=== PATIENT | male | born 1960 | race Caucasian/White ===

== ENCOUNTER 2020-07-29 09:40 | Inpatient (IN) ==
--- NOTE | 2020-07-29 10:04 | Emergency Department Note ---
Impression & Plan Acute respiratory failure with hypoxemia, COVID-19, KRISSY (acute kidney injury), Acute dehydration, Hx of kidney transplant ED Provider Note NAME: ANGELES MONTAÑO AGE: 59 SEX: M : 1960 ARRIVES VIA: Walk-In INFORMANT: Patient, ED PROVIDER(S): Louie Weeks MD Chief Complaint: Shortness of breath HPI: Patient does present with worsening shortness of breath for the last 3 days. The patient states he has exertional dyspnea. This is gotten progressively worse and is worse with exertion. The patient denies any lower extremity swelling. The patient does admit that he is been having some associated fever decreased p.o. intake and diarrheal symptoms. The patient does have a history of renal transplant and does take tacrolimus chronic steroids and mycophenolate. Patient states he has been compliant with his medications. Patient denies any cough or chest pains. The patient denies any Covid contacts or loss of taste or smell. ROS: See HPI for pertinent positives and negatives. A total of 10 systems were reviewed and otherwise negative. Past medical history: See below Surgical history: See below Social history: See below Physical Exam: GENERAL: Ill in appearance, wearing a mask, moderate distress, tachypneic. EYE EXAM: Normal conjunctiva. PERRL, no anisocoria and EOM's grossly intact w/o pain. NECK: Supple, no nuchal rigidity, no adenopathy, non-tender. No signs of meningismus. LUNGS: Clear throughout to auscultation, tachypnea noted. HEART: Tachycardic and regular, no MRG. ABDOMEN: Abdomen soft, non-tender, normo-active bowel sounds, no masses, no rebound or guarding. BACK: No CVA TTP. SKIN: No rashes and no bruising. UPPER EXTREMITIES: Upper extremities are grossly normal. LOWER EXTREMITIES: Grossly normal, no edema. No calf pain, negative Homans' sign. NEURO EXAM: A&O x3, cranial nerves II-XII grossly intact, normal speech, moves all 4 extremities on command w/o issue. Differential diagnoses: Reactive airway disease, pneumonia, pneumothorax, COPD, CHF, infections, cardiac ischemia, pulmonary embolism, musculoskeletal, gastrointestinal, as well as other pathologies. Course: Patient was seen and evaluated the bedside. Full history physical exam was performed. EKG: Indication: Shortness of breath Sinus tachycardia, rate 117, normal intervals, left axis deviation, no prior EKGs for comparison. Imaging Studies: Radiology results as stated below per my review in the radiologist's interpretation: XR chest 1V portable HISTORY: 59 years-old Male SEPSIS acute sepsis COMPARISON: None TECHNIQUE: Portable AP view of the chest FINDINGS: Cardiac silhouette is upper limits of normal in size. There are patchy predominantly interstitial opacities noted within the bilateral lungs in a mid and lower lung zone predominant distribution. No pneumothorax, large pleural effusion or overt pulmonary edema. Degenerative changes of the shoulders and spine. IMPRESSION: Patchy mid and lower lung zone prominent opacities are suspicious for a nonspecific multifocal pneumonia. Follow-up recommended. ACT 112: Negative or not required by law. The above report was generated using voice recognition software. It may contain grammatical, syntax or spelling errors. Electronically signed by: Christiano Garcia M.D. 07/29/2020 11:47 AM Dictated: 07/29/20 1143 Transcribed: 07/29/20 1143 Cardiac monitoring: An order was placed for continuous cardiac monitoring. The monitor shows a rate of 114 with sinus tachycardia rhythm. MDM: Patient did present with concern for shortness of breath. The patient was hypoxic in the 70s on room air. The patient was adjusted to nasal cannula and subsequently to nonrebreather. I did speak with the respiratory therapist to come to did place patient on BiPAP. The patient did seem to have significant improvement in his symptoms. The patient was ordered IV fluids given his decreased p.o. intake. Patient was ordered blood work imaging empiric antibiotics with Zosyn. No prior urine or blood culture sensitivities per my review. Patient does have prior history of BK virus this is also ordered as a send out in addition to tacrolimus level. Patient has a normal white count H&H and platelet count. Patient's VBG shows a pH of 7.2 with a normal PCO2. Patient does have mild lactate of 2.2 with some mild KRISSY. The patient has had decreased p.o. intake and associated diarrheal symptoms. Patient did receive IV fluids. Patient was Covid positive. The patient was ordered dexamethasone. Flu negative. MRSA swab also negative. I did inform the patient of the findings. Patient does feel improved. I did spe ak the on-call hospitalist Dr. Brianna MD. Patient was admitted to the medicine service. Patient was eventually transitioned to an oxygen mask from the BiPAP. Patient's breathing was greatly improved after treatment. Critical Care: I have personally spent 120 minutes of critical care time in direct management of this patient. This includes bedside care, interpretation of diagnostic studies, and testing, discussion with consultants, patient, and family members, and other require inpatient management activities. This 120 minutes is in excess of all separately billable procedures. Past Med/Surg History Medical History Abdominal aortic aneurysm Anemia Benign essential hypertension CVA (cerebral vascular accident) FSGS (focal segmental glomerulosclerosis) History of esophageal reflux Hyperlipidemia Hypothyroidism Obesity Osteoporosis Proteinuria Surgical History Renal transplant, status post Social History Smoking Status: Never smoker 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: Swedish Feels Safe at Home: Yes Allergies Allergies Allergy/AdvReac Type Severity Reaction Status Date / Time clopidogrel [From Plavix] Allergy Verified 07/29/20 11:33 Hgwivta-Olp-Oun Reductase AdvReac Intermediate myalgias Verified 07/29/20 11:33 Inhibitor Home Meds Home Medications Medication Instructions Recorded Confirmed calcium carbonate 500 mg calcium 500 mg PO DAILY 09/05/19 07/29/20 (1,250 mg) chewable tablet amoxicillin 2,000 mg PO ONCE 07/29/20 07/29/20 ibandronate 150 mg PO MONTHLY 07/29/20 07/29/20 levothyroxine 125 mcg PO DAILY 07/29/20 07/29/20 Previous Rx's Medication Instructions Recorded aspirin 81 mg chewable tablet 81 mg PO DAILY #90 tab 06/06/19 magnesium oxide 500 mg tablet 500 mg PO DAILY #90 tab 06/06/19 multivitamin,cd-[id number] 1 tab PO DAILY #90 tab 06/06/19 prednisone 5 mg tablet 5 mg PO DAILY #90 tab 07/23/19 pantoprazole 40 mg tablet,delayed 40 mg PO DAILY #90 tab 09/05/19 release tacrolimus 1 mg capsule 1 mg PO Q12H #180 cap 02/26/20 lisinopril 20 mg tablet 20 mg PO DAILY #90 tab 04/09/20 mycophenolate mofetil 250 mg 500 mg PO BID #360 cap 05/29/20 capsule Results & Data (ED) Vital Signs Vital Signs - 24 hr 07/29/20 09:55 07/29/20 10:35 07/29/20 11:10 Temperature 37.5 C Temperature Source Oral Pulse Rate 121 H 114 H 115 H Pulse Rate from SpO2 Sensor 115 H Respiratory Rate 24 20 21 Respiratory Effort / Characteristics Short of Breath Non-Labored Spontaneous Respiratory Depth Normal Respiratory Pattern Blood Pressure 116/84 Blood Pressure Mean 94 Blood Pressure Position Sitting Pulse Oximetry 87 L 99 100 Oxygen Delivery Method Room Air Oxygen Flow Rate Fraction of Inspired Oxygen 70 Sepsis Recent Fever Within 48 Hours No Sepsis New/Unexplained Change in Mental Status N/A Sepsis Action Taken by Nursing No Action Required Pulse Oximetry Post Tiitration 07/29/20 11:24 07/29/20 11:30 07/29/20 11:32 Temperature Temperature Source Pulse Rate Pulse Rate from SpO2 Sensor 122 H Respiratory Rate 28 H Respiratory Effort / Characteristics Spontaneous Labored Respiratory Depth Retractive Respiratory Pattern Grunting Rapid/Shallow Tachypnea Blood Pressure Blood Pressure Mean Blood Pressure Position Pulse Oximetry 100 95 Oxygen Delivery Method BiPAP Oxygen Flow Rate Fraction of Inspired Oxygen Sepsis Recent Fever Within 48 Hours Sepsis New/Unexplained Change in Mental Status Sepsis Action Taken by Nursing Pulse Oximetry Post Tiitration 07/29/20 11:47 07/29/20 12:00 07/29/20 12:30 Temperature Temperature Source Pulse Rate 112 H 103 H 98 H Pulse Rate from SpO2 Sensor 113 H 103 H 99 H Respiratory Rate 20 25 H 49 H Respiratory Effort / Characteristics Respiratory Depth Respiratory Pattern Blood Pressure 125/83 144/89 H 140/71 Blood Pressure Mean 95 98 107 Blood Pressure Position Pulse Oximetry 99 100 100 Oxygen Delivery Method Oxygen Flow Rate Fraction of Inspired Oxygen Sepsis Recent Fever Within 48 Hours Sepsis New/Unexplained Change in Mental Status Sepsis Action Taken by Nursing Pulse Oximetry Post Tiitration 07/29/20 12:46 07/29/20 13:00 07/29/20 13:10 Temperature Temperature Source Pulse Rate 97 H 96 H Pulse Rate from SpO2 Sensor 97 H 93 H Respiratory Rate 31 H 25 H Respiratory Effort / Characteristics Respiratory Depth Respiratory Pattern Blood Pressure 141/93 H Blood Pressure Mean 103 Blood Pressure Position Pulse Oximetry 96 95 Oxygen Delivery Method Oxymask Oxygen Flow Rate 6 Fraction of Inspired Oxygen Sepsis Recent Fever Within 48 Hours Sepsis New/Unexplained Change in Mental Status Sepsis Action Taken by Nursing Pulse Oximetry Post Tiitration 93 07/29/20 13:20 07/29/20 13:30 07/29/20 13:40 Temperature Temperature Source Pulse Rate 94 H 94 H 91 H Pulse Rate from SpO2 Sensor 93 H 93 H 91 H Respiratory Rate 31 H 21 20 Respiratory Effort / Characteristics Respiratory Depth Respiratory Pattern Blood Pressure 115/85 Blood Pressure Mean 92 Blood Pressure Position Pulse Oximetry 96 95 93 Oxygen Delivery Method Oxygen Flow Rate Fraction of Inspired Oxygen Sepsis Recent Fever Within 48 Hours Sepsis New/Unexplained Change in Mental Status Sepsis Action Taken by Nursing Pulse Oximetry Post Tiitration 07/29/20 13:50 07/29/20 14:00 07/29/20 14:10 Temperature Temperature Source Pulse Rate 93 H 92 H 90 Pulse Rate from SpO2 Sensor 93 H 91 H 92 H Respiratory Rate 17 20 29 H Respiratory Effort / Characteristics Respiratory Depth Respiratory Pattern Blood Pressure 145/96 H Blood Pressure Mean 109 Blood Pressure Position Pulse Oximetry 95 93 93 Oxygen Delivery Method Oxygen Flow Rate Fraction of Inspired Oxygen Sepsis Recent Fever Within 48 Hours Sepsis New/Unexplained Change in Mental Status Sepsis Action Taken by Nursing Pulse Oximetry Post Tiitration 07/29/20 14:45 07/29/20 15:00 07/29/20 15:18 Temperature Temperature Source Pulse Rate 94 H 108 H Pulse Rate from SpO2 Sensor 104 H Respiratory Rate 17 22 Respiratory Effort / Characteristics SOB on Exertion Respiratory Depth Respiratory Pattern Blood Pressure 147/101 H Blood Pressure Mean 124 Blood Pressure Position Pulse Oximetry 92 Oxygen Delivery Method Oxygen Flow Rate Fraction of Inspired Oxygen Sepsis Recent Fever Within 48 Hours Sepsis New/Unexplained Change in Mental Status Sepsis Action Taken by Nursing Pulse Oximetry Post Tiitration Home Medications Current Medication List: was personally reviewed by me Laboratory Data Attestation: I reviewed the patient's lab results. Result diagrams: 07/29/20 11:05 07/29/20 11:05 Lab Results 07/29/20 07/29/20 07/29/20 Range/Units 10:55 11:05 11:05 WBC 9.51 (4.8-10.8) K/uL RBC 4.51 L (4.7-6.1) M/uL Hgb 14.0 (14.0-18.0) g/dL Hct 42.1 (42-52) % MCV 93.3 (80-100) fL MCH 31.0 (25-34) pg MCHC 33.3 (32-36) g/dL RDW Std Deviation 46.1 (36.4-46.3) fL RDW Coeff of Jaye 13.5 (11.5-14.5) % Plt Count 216 (130-400) K/uL MPV 11.0 H (7.4-10.4) fL Immature Gran % (Auto) 0.4 % Neut % (Auto) 80.2 % Lymph % (Auto) 4.6 % [place] % (Auto) 14.5 % Eos % (Auto) 0.2 % Baso % (Auto) 0.1 % Neut # (Auto) 7.62 H (1.4-6.5) K/uL Lymph # (Auto) 0.44 L (1.2-3.4) K/uL [place] # (Auto) 1.38 H (0.11-0.59) K/uL Eos # (Auto) 0.02 (0-0.5) K/uL Baso # (Auto) 0.01 (0-0.2) K/uL Immature Gran # (Auto) 0.04 H (0.00-0.02) K/uL Absolute Nucleated RBC 0.07 H (0-0) K/uL Nucleated RBC % (auto) 0.7 % PT 11.4 (9.0-12.0) Seconds INR 1.1 (0.9-1.1) APTT 25.6 (21.0-31.0) Seconds PTT Ratio 0.9 VBG pH 7.28 L (7.36-7.41) VBG pCO2 42 (38-50) mmHg VBG pO2 34 mmHg VBG HCO3 19 mmol/L VBG O2 Saturation < 60.0 % VBG Base Excess -7.3 mEq/L Barometric Pressure 730.4 mm/Hg Sodium (136-145) mmol/L Potassium (3.5-5.1) mmol/L Chloride (98-107) mmol/L Carbon Dioxide (21-32) mmol/L Anion Gap (3-11) BUN (7-18) mg/dl Creatinine (0.6-1.4) mg/dl Est Cr Clr Drug Dosing ml/min Est GFR ( Amer) Est GFR (Non-Af Amer) BUN/Creatinine Ratio (10-20) Glucose (70-99) mg/dl Lactate (0.4-2.0) mmol/L Calcium (8.5-10.1) mg/dl Magnesium (1.8-2.4) mg/dl Total Bilirubin (0.2-1) mg/dl AST (15-37) U/L ALT (12-78) U/L Alkaline Phosphatase (45-117) U/L Troponin I (0-0.045) ng/ml Total Protein (6.4-8.2) gm/dl Albumin (3.4-5.0) gm/dl Globulin (2.5-4.0) gm/dl Albumin/Globulin Ratio (0.9-2) Procalcitonin (0-0.5) ng/ml Nasal Screen MRSA (PCR) (Negative) COVID-19 Eval Order COVID-19 PCR (Negative) Influ A Molecular Assay (Negative) Influ B Molecular Assay (Negative) 07/29/20 07/29/20 07/29/20 Range/Units 11:05 11:05 11:05 WBC (4.8-10.8) K/uL RBC (4.7-6.1) M/uL Hgb (14.0-18.0) g/dL Hct (42-52) % MCV (80-100) fL MCH (25-34) pg MCHC (32-36) g/dL RDW Std Deviation (36.4-46.3) fL RDW Coeff of Jaye (11.5-14.5) % Plt Count (130-400) K/uL MPV (7.4-10.4) fL Immature Gran % (Auto) % Neut % (Auto) % Lymph % (Auto) % [place] % (Auto) % Eos % (Auto) % Baso % (Auto) % Neut # (Auto) (1.4-6.5) K/uL Lymph # (Auto) (1.2-3.4) K/uL [place] # (Auto) (0.11-0.59) K/uL Eos # (Auto) (0-0.5) K/uL Baso # (Auto) (0-0.2) K/uL Immature Gran # (Auto) (0.00-0.02) K/uL Absolute Nucleated RBC (0-0) K/uL Nucleated RBC % (auto) % PT (9.0-12.0) Seconds INR (0.9-1.1) APTT (21.0-31.0) Seconds PTT Ratio VBG pH (7.36-7.41) VBG pCO2 (38-50) mmHg VBG pO2 mmHg VBG HCO3 mmol/L VBG O2 Saturation % VBG Base Excess mEq/L Barometric Pressure mm/Hg Sodium 136 (136-145) mmol/L Potassium 4.3 (3.5-5.1) mmol/L Chloride 108 H (98-107) mmol/L Carbon Dioxide 19 L (21-32) mmol/L Anion Gap 9.0 (3-11) BUN 31 H (7-18) mg/dl Creatinine 1.88 H (0.6-1.4) mg/dl Est Cr Clr Drug Dosing 49.4 ml/min Est GFR ( Amer) 44.3 Est GFR (Non-Af Amer) 38.2 BUN/Creatinine Ratio 16.7 (10-20) Glucose 103 H (70-99) mg/dl Lactate 2.2 H* (0.4-2.0) mmol/L Calcium 9.6 (8.5-10.1) mg/dl Magnesium 1.8 (1.8-2.4) mg/dl Total Bilirubin 0.7 (0.2-1) mg/dl AST 82 H (15-37) U/L ALT 57 (12-78) U/L Alkaline Phosphatase 134 H (45-117) U/L Troponin I 0.026 (0-0.045) ng/ml Total Protein 8.4 H (6.4-8.2) gm/dl Albumin 3.2 L (3.4-5.0) gm/dl Globulin 5.2 H (2.5-4.0) gm/dl Albumin/Globulin Ratio 0.6 L (0.9-2) Procalcitonin 0.21 (0-0.5) ng/ml Nasal Screen MRSA (PCR) (Negative) COVID-19 Eval Order COVID-19 PCR (Negative) Influ A Molecular Assay (Negative) Influ B Molecular Assay (Negative) 07/29/20 07/29/20 07/29/20 Range/Units 11:13 11:13 11:13 WBC (4.8-10.8) K/uL RBC (4.7-6.1) M/uL Hgb (14.0-18.0) g/dL Hct (42-52) % MCV (80-100) fL MCH (25-34) pg MCHC (32-36) g/dL RDW Std Deviation (36.4-46.3) fL RDW Coeff of Jaye (11.5-14.5) % Plt Count (130-400) K/uL MPV (7.4-10.4) fL Immature Gran % (Auto) % Neut % (Auto) % Lymph % (Auto) % [place] % (Auto) % Eos % (Auto) % Baso % (Auto) % Neut # (Auto) (1.4-6.5) K/uL Lymph # (Auto) (1.2-3.4) K/uL [place] # (Auto) (0.11-0.59) K/uL Eos # (Auto) (0-0.5) K/uL Baso # (Auto) (0-0.2) K/uL Immature Gran # (Auto) (0.00-0.02) K/uL Absolute Nucleated RBC (0-0) K/uL Nucleated RBC % (auto) % PT (9.0-12.0) Seconds INR (0.9-1.1) APTT (21.0-31.0) Seconds PTT Ratio VBG pH (7.36-7.41) VBG pCO2 (38-50) mmHg VBG pO2 mmHg VBG HCO3 mmol/L VBG O2 Saturation % VBG Base Excess mEq/L Barometric Pressure mm/Hg Sodium (136-145) mmol/L Potassium (3.5-5.1) mmol/L Chloride (98-107) mmol/L Carbon Dioxide (21-32) mmol/L Anion Gap (3-11) BUN (7-18) mg/dl Creatinine (0.6-1.4) mg/dl Est Cr Clr Drug Dosing ml/min Est GFR ( Amer) Est GFR (Non-Af Amer) BUN/Creatinine Ratio (10-20) Glucose (70-99) mg/dl Lactate (0.4-2.0) mmol/L Calcium (8.5-10.1) mg/dl Magnesium (1.8-2.4) mg/dl Total Bilirubin (0.2-1) mg/dl AST (15-37) U/L ALT (12-78) U/L Alkaline Phosphatase (45-117) U/L Troponin I (0-0.045) ng/ml Total Protein (6.4-8.2) gm/dl Albumin (3.4-5.0) gm/dl Globulin (2.5-4.0) gm/dl Albumin/Globulin Ratio (0.9-2) Procalcitonin (0-0.5) ng/ml Nasal Screen MRSA (PCR) Negative (Negative) COVID-19 Eval Order Covid19 Done at [facility] COVID-19 PCR POSITIVE A* (Negative) Influ A Molecular Assay (Negative) Influ B Molecular Assay (Negative) 07/29/20 Range/Units 11:21 WBC (4.8-10.8) K/uL RBC (4.7-6.1) M/uL Hgb (14.0-18.0) g/dL Hct (42-52) % MCV (80-100) fL MCH (25-34) pg MCHC (32-36) g/dL RDW Std Deviation (36.4-46.3) fL RDW Coeff of Jaye (11.5-14.5) % Plt Count (130-400) K/uL MPV (7.4-10.4) fL Immature Gran % (Auto) % Neut % (Auto) % Lymph % (Auto) % [place] % (Auto) % Eos % (Auto) % Baso % (Auto) % Neut # (Auto) (1.4-6.5) K/uL Lymph # (Auto) (1.2-3.4) K/uL [place] # (Auto) (0.11-0.59) K/uL Eos # (Auto) (0-0.5) K/uL Baso # (Auto) (0-0.2) K/uL Immature Gran # (Auto) (0.00-0.02) K/uL Absolute Nucleated RBC (0-0) K/uL Nucleated RBC % (auto) % PT (9.0-12.0) Seconds INR (0.9-1.1) APTT (21.0-31.0) Seconds PTT Ratio VBG pH (7.36-7.41) VBG pCO2 (38-50) mmHg VBG pO2 mmHg VBG HCO3 mmol/L VBG O2 Saturation % VBG Base Excess mEq/L Barometric Pressure mm/Hg Sodium (136-145) mmol/L Potassium (3.5-5.1) mmol/L Chloride (98-107) mmol/L Carbon Dioxide (21-32) mmol/L Anion Gap (3-11) BUN (7-18) mg/dl Creatinine (0.6-1.4) mg/dl Est Cr Clr Drug Dosing ml/min Est GFR ( Amer) Est GFR (Non-Af Amer) BUN/Creatinine Ratio (10-20) Glucose (70-99) mg/dl Lactate (0.4-2.0) mmol/L Calcium (8.5-10.1) mg/dl Magnesium (1.8-2.4) mg/dl Total Bilirubin (0.2-1) mg/dl AST (15-37) U/L ALT (12-78) U/L Alkaline Phosphatase (45-117) U/L Troponin I (0-0.045) ng/ml Total Protein (6.4-8.2) gm/dl Albumin (3.4-5.0) gm/dl Globulin (2.5-4.0) gm/dl Albumin/Globulin Ratio (0.9-2) Procalcitonin (0-0.5) ng/ml Nasal Screen MRSA (PCR) (Negative) COVID-19 Eval Order COVID-19 PCR (Negative) Influ A Molecular Assay Negative (Negative) Influ B Molecular Assay Negative (Negative) Administered Medications Discontinued Medications Dexamethasone (Dexamethasone Sod Inj 10 Mg/Ml Vial) 6 mg IV NOW ONE Stop: 07/29/20 12:28 Last Admin: 07/29/20 12:46 Dose: 6 mg Documented by: [id number] Sodium Chloride (Nss 1000ml) 1,000 mls @ 999 mls/hr IV .Q1H1M ESTEFANI Stop: 07/29/20 11:24 Last Infusion: 07/29/20 12:48 Dose: 0 mls/hr Documented by: [id number] Admin: 07/29/20 11:49 Dose: 999 mls/hr Documented by: [id number] Sodium Chloride (Nss 1000ml) 1,000 mls @ 999 mls/hr IV .Q1H1M ESTEFANI Stop: 07/29/20 12:23 Last Infusion: 07/29/20 13:46 Dose: 0 mls/hr Documented by: [id number] Admin: 07/29/20 12:45 Dose: 999 mls/hr Documented by: [id number] Piperacillin Sod/Tazobactam Sod (Zosyn) 4.5 gm in 120 mls @ 240 mls/hr IV NOW ONE Stop: 07/29/20 10:53 Last Infusion: 07/29/20 12:48 Dose: 0 mls/hr Documented by: [id number] Admin: 07/29/20 11:49 Dose: 240 mls/hr Documented by: [id number] Ondansetron HCl (Ondansetron Inj 2 Mg/Ml 2 Ml Vial) 4 mg IV NOW STA Stop: 07/29/20 11:38 Last Admin: 07/29/20 11:49 Dose: 4 mg Documented by: [id number] Discharge Plan Visit Data Chief Complaint: Shortness of Breath/Dyspnea Stated Complaint: DIARRHEA,SOB,VOMITING,HX FEVER ED Provider: Louie Weeks Discharge Problem: Acute respiratory failure with hypoxemia, COVID-19, KRISSY (acute kidney injury), Acute dehydration, Hx of kidney transplant Forms Stand Alone Forms: My [facility] [employer] Prescriptions Prescriptions: No Action prednisone 5 mg tablet 5 mg PO DAILY Qty: 90 RF: 3 tacrolimus 1 mg capsule 1 mg PO Q12H Qty: 180 RF: 3 mycophenolate mofetil 250 mg capsule 500 mg PO BID Qty: 360 RF: 3 aspirin 81 mg tablet,chewable 81 mg PO DAILY Qty: 90 RF: 3 magnesium oxide 500 mg tablet 500 mg PO DAILY Qty: 90 RF: 3 Complete Multivitamin tablet 1 tab PO DAILY Qty: 90 RF: 3 calcium carbonate [Calcium 500] 500 mg calcium (1,250 mg) tablet,chewable 500 mg PO DAILY RF: 0 pantoprazole 40 mg tablet,delayed release (DR/EC) 40 mg PO DAILY Qty: 90 RF: 3 lisinopril 20 mg tablet 20 mg PO DAILY Qty: 90 RF: 3 ibandronate 150 mg tablet 150 mg PO MONTHLY RF: 0 amoxicillin 500 mg capsule 2,000 mg PO ONCE RF: 0 levothyroxine 125 mcg tablet 125 mcg PO DAILY RF: 0
[2020-07-29] MEDS ORDERED: PIPERACILLIN/TAZOBACTAM 4.5 GM/120 ML BAG IV ONE (10:24)
[2020-07-29] MEDS ORDERED: PIPERACILL/TAZOBAC CONSULT ACTIVE PRN (10:24)
[2020-07-29] MEDS ORDERED: SODIUM CHLORIDE 0.9% 1000ML 1,000 ML IV SCH ×3 (10:30→19:34)
[2020-07-29 11:06] LABS: Base Excess VBG -7.3 mEq/L; HCO3 VBG 19 mmol/L; PCO2 VBG 42 mmHg (38-50); PO2 VBG 34 mmHg; pH VBG 7.28 (7.36-7.41)
[2020-07-29 11:07] LABS: Oxygen Saturation VBG < 60.0 %
[2020-07-29 11:17] LABS: Basophils # (auto) 0.01 K/uL (0-0.2); Basophils % (auto) 0.1 %; Eosinophils # (auto) 0.02 K/uL (0-0.5); Eosinophils % (auto) 0.2 %; Hematocrit (blood only) 42.1 % (42-52); Immature Granulocytes # (auto) 0.04 K/uL (0.00-0.02); Immature Granulocytes % (auto) 0.4 %; Lymphocytes # (auto) 0.44 K/uL (1.2-3.4); Lymphocytes % (auto) 4.6 %; Mean Corpuscular Hgb Conc 33.3 g/dL (32-36); Mean Corpuscular Volume 93.3 fL (80-100); Monocytes # (auto) 1.38 K/uL (0.11-0.59); Monocytes % (auto) 14.5 %; Neutrophils # (auto) 7.62 K/uL (1.4-6.5); Neutrophils % (auto) 80.2 %; Nucleated RBC # (auto) 0.07 K/uL (0-0); Nucleated RBC % (auto) 0.7 %; Platelet Count 216 K/uL (130-400); RDW Coefficient of Variation 13.5 % (11.5-14.5); RDW Standard Deviation 46.1 fL (36.4-46.3); Red Blood Count 4.51 M/uL (4.7-6.1); White Blood Count 9.51 K/uL (4.8-10.8)
[2020-07-29 11:34] LABS: Albumin Level 3.2 gm/dl (3.4-5.0); BUN Creatinine Ratio 16.7 (10-20); Calcium 9.6 mg/dl (8.5-10.1); Creatinine Clr Calc Pharmacy 49.4 ml/min; Est GFR (African American) 44.3; Est GFR (Non-African American) 38.2; Magnesium 1.8 mg/dl (1.8-2.4); Potassium 4.3 mmol/L (3.5-5.1)
[2020-07-29] MEDS ORDERED: ONDANSETRON INJ 2 MG/ML 2 ML VIAL IV STA (11:37)
[2020-07-29 11:39] LABS: Albumin Globulin Ratio 0.6 (0.9-2); Bilirubin,Total 0.7 mg/dl (0.2-1); Globulin 5.2 gm/dl (2.5-4.0); INR 1.1 (0.9-1.1); Partial Thromboplastin Ratio 0.9; Partial Thromboplastin Time 25.6 Seconds (21.0-31.0); Prothrombin Time 11.4 Seconds (9.0-12.0); Total Protein 8.4 gm/dl (6.4-8.2); Troponin I 0.026 ng/ml (0-0.045)
--- NOTE | 2020-07-29 11:48 | XRay Report ---
XR chest 1V portable HISTORY: 59 years-old Male SEPSIS acute sepsis COMPARISON: None TECHNIQUE: Portable AP view of the chest FINDINGS: Cardiac silhouette is upper limits of normal in size. There are patchy predominantly interstitial opa cities noted within the bilateral lungs in a mid and lower lung zone predominant distribution. No pne umothorax, large pleural effusion or overt pulmonary edema. Degenerative changes of the shoulders and spine. IMPRESSION: Patchy mid and lower lung zone prominent opacities are suspicious for a nonspecific multi focal pneumonia. Follow-up recommended. ACT 112: Negative or not required by law. The above report was generated using voice recognition software. It may contain grammatical, syntax o r spelling errors. Electronically signed by: Christiano Garcia M.D. 07/29/2020 11:47 AM
[2020-07-29 11:50] LABS: Influenza A virus by PCR Negative (Negative); Influenza B virus by PCR Negative (Negative)
[2020-07-29] MEDS ORDERED: DEXAMETHASONE SOD INJ 10 MG/ML VIAL IV ONE (12:27)
--- NOTE | 2020-07-29 18:09 | History & Physical Report ---
Date of Service July 29, 2020 Assessment & Plan (1) COVID-19: * Unfortunately, the patient's diagnosis is complicated by his underlying immunocompromise state secondary to renal transplantation in February 2010. * Patient symptoms of shortness of breath have been within the last 48 hours. * Patient is hypoxic on presentation requiring supplemental oxygen with transient time of requiring BiPAP. His symptoms appear to be more exertional in nature thankfully and was able to be titrated down to OxyMask. * Agree with administration of Decadron. Will hold the patient's home prednisone while on Decadron for the next 10 days. * Discussed the case with Dr. Mccormick of nephrology. He agrees with starting remdesivir as the patient's renal function is appropriate at this time. * Will hold on convalescent plasma given the patient's history of solid organ transplantation. Dr. Mccormick did call back and had spoken with transplantation team at [facility]. Orders placed for convalescent plasma therapy as it was felt to be appropriate per transplantation service. * Will certainly cover for adventitious infections with cefepime and azithromycin. * Will check baseline ferritin, LDH, D-dimer. * Supplemental O2 as needed. * Orders placed for CPAP if required. Present on Admission?: Yes (2) Acute respiratory failure with hypoxemia: * Secondary to COVID-19 pneumonia. * Supplemental O2 and CPAP as needed. * Continue with COVID-19 treatment modalities. Present on Admission?: Yes (3) KRISSY (acute kidney injury): * Presumed secondary to dehydration with recent diarrheal illness. Will provide supplemental IV fluids in addition with the patient has received this time. * Consider discontinuation of fluids over the next 24 hours in the COVID-19 positive patient with pneumonia and infiltrative changes. Present on Admission?: Yes (4) Acute dehydration: * Secondary to diarrheal illness. IV fluids as discussed. Present on Admission?: Yes (5) Diarrhea: * Possibly related to COVID-19 infection. * Will add stool cultures as well as C. difficile testing in the immunocompromised patient. Present on Admission?: Yes (6) Pneumonia: * COVID-19 pneumonia. * Will cover for CAP in the immunocompromised individual. Present on Admission?: Yes (7) Hx of kidney transplant: * Continue tacrolimus and CellCept. * Hold prednisone while on Decadron. Present on Admission?: Yes (8) Hyperlipidemia: * Continue home medications as tolerated. (9) Benign essential hypertension: * Hold lisinopril in the setting of KRISSY. 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 Patient has been maintained on tacrolimus, CellCept, and prednisone. He did have some mild postoperative complications which were remedied and the patient has been on regular immunosuppressive medications with relatively normal renal function since. Patient does carry a history of obesity as well as hypothyroidism, hypertension, hyperlipidemia, GERD, prior history of CVA, and AAA. Patient notes approximately 5 to 7 days ago he developed diarrhea symptoms. He states that he has been somewhat rundown since, but had been trying to eat and drink despite his symptoms. He developed symptoms of shortness of breath and cough over the last 48 hours. This prompted visit to the emergency department. The patient reports increasing shortness of breath with ambulation. He denies shortness of breath at rest. Patient reports that he does not leave his house often and if he does go the store, typically his goes in and he sits in the car. He denies any known contacts of COVID-19. He reports no symptoms of fevers, chills, anosmia, or lack of taste/smell. Patient currently denies any complaints of headaches, dizziness, lightheadedness, chest pain, palpitations, pleuritic pain, nausea, vomiting, or abdominal pain. Allergies Allergy/AdvReac Type Severity Reaction Status Date / Time clopidogrel [From Plavix] Allergy Verified 07/29/20 11:33 Gzjmdhu-Fjg-Nzw Reductase AdvReac Intermediate myalgias Verified 07/29/20 11:33 Inhibitor Home Medications Home Medications Medication Instructions Recorded Confirmed Type aspirin 81 mg chewable tablet 81 mg PO DAILY #90 tab 06/06/19 07/29/20 Rx magnesium oxide 500 mg tablet 500 mg PO DAILY #90 tab 06/06/19 07/29/20 Rx multivitamin,yp-hodi-hlnoaskj 1 tab PO DAILY #90 tab 06/06/19 07/29/20 Rx prednisone 5 mg tablet 5 mg PO DAILY #90 tab 07/23/19 07/29/20 Rx calcium carbonate 500 mg calcium 500 mg PO DAILY 09/05/19 07/29/20 History (1,250 mg) chewable tablet pantoprazole 40 mg tablet,delayed 40 mg PO DAILY #90 tab 09/05/19 07/29/20 Rx release tacrolimus 1 mg capsule 1 mg PO Q12H #180 cap 02/26/20 07/29/20 Rx lisinopril 20 mg tablet 20 mg PO DAILY #90 tab 04/09/20 07/29/20 Rx mycophenolate mofetil 250 mg 500 mg PO BID #360 cap 05/29/20 07/29/20 Rx capsule amoxicillin 2,000 mg PO ONCE 07/29/20 07/29/20 History ibandronate 150 mg PO MONTHLY 07/29/20 07/29/20 History levothyroxine 125 mcg PO DAILY 07/29/20 07/29/20 History Past Med/Surg History Medical History Abdominal aortic aneurysm Anemia Benign essential hypertension CVA (cerebral vascular accident) FSGS (focal segmental glomerulosclerosis) History of esophageal reflux Hyperlipidemia Hypothyroidism Obesity Osteoporosis Proteinuria Surgical History Renal transplant, status post Social History Smoking Status: Unknown if ever smoked Hx Alcohol Use: No Hx Substance Use: No 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: Bhutanese Facility 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 All else were negative. Physical Exam Physical Exam: VITAL SIGNS - Vital signs and nursing notes were reviewed. GENERAL - 59-year-old male appearing his stated age who is in no acute distress. Communicates well with provider and answers questions appropriately. SKIN - Without rashes. HEAD - NC/AT. EYES - PERRL with EOMI bilaterally. Sclera anicteric. EARS - No deformities of external structures noted on gross examination bilaterally. NOSE - Midline and without cyanosis. No epistaxis or purulent drainage noted. MOUTH/OROPHARYNX - Without perioral cyanosis. Buccal mucosa pink and moist and without leukoplakia. NECK - Neck with FROM. No nuchal rigidity. LUNGS - Chest wall symmetric without accessory muscle use, intercostals retractions, or central cyanosis. Coarse breath sounds noted throughout. CARDIAC - RRR with S1/S2. No murmur, rubs, or gallops appreciated. ABDOMEN - Abdominal contour obese without pulsations or visible masses. BS normoactive all four quadrants. No tenderness, palpable masses, hepatosplenomegaly, or ascites noted. EXTREMITIES - No clubbing or peripheral cyanosis. No pretibial edema present. +3/5 radial and dorsalis pedis pulses palpated throughout. +5/5 strength noted in UE/LE bilaterally. NEUROLOGIC - Cranial nerves II through XII grossly intact. Sensory intact to light touch throughout. PSYCH - A&Ox3 and cooperates fully with examiner. Pt is very pleasant and interacts well with examiner. Results & Data Results & Data ([facility]) Vital Signs (Past 12 Hours) Vital Signs Temp Pulse Resp BP Pulse Ox 07/29/20 13:00 97 H 31 H 141/93 H 96 07/29/20 12:30 98 H 49 H 140/71 100 07/29/20 12:00 103 H 25 H 144/89 H 100 07/29/20 11:47 112 H 20 125/83 99 07/29/20 11:32 95 07/29/20 11:30 28 H 100 07/29/20 11:10 115 H 21 100 07/29/20 10:35 114 H 20 99 07/29/20 09:55 37.5 C 121 H 24 116/84 87 L Supervising Physician Co-Signing Physician Notes I personally saw and examined the patient. 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 Symptoms suspected for the last week and appeared to be improving but not having diarrhea for the last 2-3 days and appears to getting worse. O/E bilateral rhonchi, reduced air entry b/l, no wheezing., Abdo SNT, BS normal. A/P COVID-19 - discussed with Dr Mccormick who contacted Jj and will discontinue mycophenolate, ok to give convalescent plasma (ordered and blood product consent signed). Continue tacrolimus. In addition start Dexamethasone and Remdesivir as above. Multifocal pneumonia - despite negative procalcitonin this may be low early in illness and double worsening of illness concerning for bacterial PNA with immunocompromised state. MRSA nasal swab negative. Cefepime and azithromycin as above. KRISSY in setting of renal transplant - hold lisinopril, consult nephrology PG Care Time/CCT Total # of Minutes Spent Total Time Spent with Patient: Total time spent is greater than 50% in community health education coordinator rdination of care (as documented) at patient's floor/unit and/or counseling patient: Coding Level of Care Code 59260 Initial Inpt Care Lvl 3 Diagnoses COVID-19 U07.1 Acute respiratory failure with hypoxemia J96.01 KRISSY (acute kidney injury) N17.9 Acute dehydration E86.0 Diarrhea R19.7 Diarrhea type: unspecified type Pneumonia J18.9 Laterality: bilateral Lung location: unspecified part of lung Pneumonia type: due to unspecified organism Hx of kidney transplant Z94.0 Hyperlipidemia E78.5 Hyperlipidemia type: unspecified Benign essential hypertension I10 Hypothyroidism E03.8 Hypothyroidism type: other Obesity E66.9 Obesity classification: adult class 2 (BMI 35 - 39.9) Obesity type: unspecified obesity type Renal transplant, status post Z94.0 Time Spent (min) 55 (1) Diarrhea Diarrhea type: unspecified type Qualified Code(s): R19.7 - Diarrhea, unspecified (2) Hyperlipidemia Hyperlipidemia type: unspecified Qualified Code(s): E78.5 - Hyperlipidemia, unspecified (3) Hypothyroidism Hypothyroidism type: other Qualified Code(s): E03.8 - Other specified hypothyroidism (4) Pneumonia Laterality: bilateral Lung location: unspecified part of lung Pneumonia type: due to unspecified organism Qualified Code(s): J18.9 - Pneumonia, unspecified organism (5) Obesity Obesity classification: adult class 2 (BMI 35 - 39.9) Obesity type: unspecified obesity type
[2020-07-29] MEDS ORDERED: NON-FORMULARY MEDICATION (Ibandronate 150 mg tablet) PO SCH (19:34)
[2020-07-29] MEDS ORDERED: ACETAMINOPHEN 325 MG TAB PO PRN (19:34)
[2020-07-29] MEDS ORDERED: REMDESIVIR 200 MG in SODIUM CHLORIDE 0.9% 210 ML IV ONE (20:00)
[2020-07-29 20:50] LABS: BUN Creatinine Ratio 22.3 (10-20); Calcium 8.5 mg/dl (8.5-10.1); Creatinine Clr Calc Pharmacy 60.4 ml/min; Est GFR (African American) 56.4; Est GFR (Non-African American) 48.7; Potassium 4.8 mmol/L (3.5-5.1)
[2020-07-29] MEDS ORDERED: MYCOPHENOLATE MOFETIL 250 MG CAP PO SCH ×2 (21:00)
[2020-07-29] MEDS ORDERED: SODIUM CHLORIDE 0.9% 10ML FLUSH IV SCH (22:00)
[2020-07-29] MEDS: HEPARIN SOD 5,000 UNIT/0.5 ML VIAL SQ SCH (22:31)
[2020-07-29] MEDS: CEFEPIME 2,000 MG in SYRINGE 0 ML IV SCH (22:31)
[2020-07-29] MEDS: TACROLIMUS 1 MG CAP PO SCH (22:32)
[2020-07-29] MEDS: AZITHROMYCIN 500 MG in DEXTROSE 5% 250 ML IV SCH (22:49)
[2020-07-30 06:20] LABS: Basophils # (auto) 0.01 K/uL (0-0.2); Basophils % (auto) 0.2 %; Hematocrit (blood only) 38.6 % (42-52); Hemoglobin 12.6 g/dL (14.0-18.0); Immature Granulocytes # (auto) 0.03 K/uL (0.00-0.02); Immature Granulocytes % (auto) 0.5 %; Lymphocytes # (auto) 0.27 K/uL (1.2-3.4); Lymphocytes % (auto) 4.3 %; Mean Corpuscular Hemoglobin 30.4 pg (25-34); Mean Corpuscular Hgb Conc 32.6 g/dL (32-36); Mean Corpuscular Volume 93.2 fL (80-100); Mean Platelet Volume 10.4 fL (7.4-10.4); Monocytes # (auto) 0.69 K/uL (0.11-0.59); Monocytes % (auto) 10.9 %; Neutrophils # (auto) 5.35 K/uL (1.4-6.5); Neutrophils % (auto) 84.1 %; Platelet Count 199 K/uL (130-400); RDW Coefficient of Variation 13.6 % (11.5-14.5); RDW Standard Deviation 46.1 fL (36.4-46.3); Red Blood Count 4.14 M/uL (4.7-6.1); White Blood Count 6.35 K/uL (4.8-10.8)
[2020-07-30] MEDS: LEVOTHYROXINE SODIUM 125 MCG TABLET PO SCH (06:27)
[2020-07-30] MEDS: HEPARIN SOD 5,000 UNIT/0.5 ML VIAL SQ SCH ×3 (06:27→20:59)
[2020-07-30 06:55] LABS: Albumin Level 2.6 gm/dl (3.4-5.0); BUN Creatinine Ratio 21.3 (10-20); Calcium 8.4 mg/dl (8.5-10.1); Creatinine Clr Calc Pharmacy 59.2 ml/min; Est GFR (African American) 55.1; Est GFR (Non-African American) 47.5; Magnesium 1.8 mg/dl (1.8-2.4); Potassium 4.2 mmol/L (3.5-5.1)
[2020-07-30 07:00] LABS: D Dimer 5310 ug/L FEU (0-500)
[2020-07-30 07:02] LABS: Bilirubin Direct 0.2 mg/dl (0-0.2); Bilirubin,Total 0.5 mg/dl (0.2-1); Ferritin 788.1 ng/ml (8-388); Phosphorus 3.7 mg/dl (2.5-4.9); Total Protein 7.2 gm/dl (6.4-8.2); Troponin I 0.03 ng/ml (0-0.045)
[2020-07-30] MEDS: CEFEPIME 2,000 MG in SYRINGE 0 ML IV SCH ×2 (08:10→20:43)
[2020-07-30] MEDS: ASPIRIN 81 MG ECTAB PO SCH (08:14)
[2020-07-30] MEDS: CEROVITE ADV FORMULA TAB PO SCH (08:14)
[2020-07-30] MEDS: MAGNESIUM OXIDE 400 MG TAB PO SCH (08:14)
[2020-07-30] MEDS: CALCIUM CARBONATE 1250MG TAB PO SCH (08:14)
[2020-07-30] MEDS: PANTOprazole 40 MG TAB PO SCH (08:14)
[2020-07-30] MEDS: TACROLIMUS 1 MG CAP PO SCH ×2 (08:14→20:43)
[2020-07-30] MEDS ORDERED: lisinopril 20 MG TAB PO SCH ×2 (09:00)
[2020-07-30] MEDS ORDERED: DEXAMETHASONE SOD INJ 10 MG/ML VIAL IV SCH (09:00)
--- NOTE | 2020-07-30 10:25 | Electrocardiogram Report ---
Test Reason : Blood Pressure : / mmHG Vent. Rate : 117 BPM Atrial Rate : 117 BPM P-R Int : 146 ms QRS Dur : 108 ms QT Int : 324 ms P-R-T Axes : 051 -52 033 degrees QTc Int : 451 ms Sinus tachycardia Possible Left atrial enlargement Incomplete right bundle branch block Left anterior fascicular block Left ventricular hypertrophy Abnormal ECG No previous ECGs available Confirmed by Artur Benito ([id number]) on 07/30/2020 10:25:14 AM Referred By: REFERRED SELF Confirmed By:Artur Benito
--- NOTE | 2020-07-30 10:34 | Nephrology Consultation ---
Date of Consultation July 30, 2020 Assessment & Plan (1) KRISSY (acute kidney injury): * KRISSY due to dehydration and COVID+ status * Agree w/ cautious hydration. Primary service to monitor volume status * Monitor PRP (2) Renal transplant, status post: * LURT due to FSGS [address] [facility] * Baseline Cr 1.4 * Continue Tacrolimus 1mg BID. Azithromycin may reduce CNI metabolism. Will order trough Tacrolimus level and repeat in 3 - 5 days. Target trough Tacrolimus level is 3.5 - 5.0. (3) COVID-19: * Medical POC discussed w/ [facility] Kidney Transplant Service * Continue Tacrolimus (monitor level), hold Mycophenolate and Prednisone while on Decadron therapy * Continue Remdesivir and convalescent plasma therapy (4) Acute respiratory failure with hypoxemia: * CXR w/ bilateral infiltrates * Continue supportive care/high flow oxygen (prone positioning if needed) * On empiric Cefepime and Azithromycin therapy History of Present Illness Reason for Consultation: KRISSY/LURT/COVID + pneumonia Attending Physician: Chris Fontana DO History of Present Illness Mr. Mandel is a 59 year old white male. I was asked to provide recommendations for management of immunosuppression and medical therapy. The patient has a LURT. He presented w/ COVID pneumonia. I did not examine Mr. Mandel. He is currently on respiratory isolation. Medical management has been discussed w/ his admitting physician. Mr. Mandel's medical history is significant for ESRD due to FSGS. He underwent LURT 2009 at [facility] in [place], [place]. His post-transplant course was complicated by BK nephropathy, hydronephrosis requiring a temporary stent and transplant SANDI s/p angioplasty. Serum Cr stabilized at 1.4. His chronic immunosuppressive regimen has been Tacrolimus 1 mg po BID, Cellcept 500 mg po BID and Prednisone 5 mg po daily. He has also been taking Lisinopril 20 mg daily for BP management. Mr. Mandel's local Clinical Evaluator is Dr. Oro. Mr. Mandel presented to the [facility] y afternoon for evaluation of dyspnea and diarrhea. He was found to have bilateral pulmonary infiltrates on CXR. COVID testing was +. Cr was noted to be mildly elevated at 1.57. Medical management was discussed w/ Wallace Lerner PA-c at the time of admission. Clcr was > 30 cc/min therefore Remdesivir and Decadron were advised. Medical care was then discussed w/ [facility] Renal Transplant [facility] ([place]-posttransplant coordinator/Dr. Yury Greco [phone]). They were in agreement w/ Remdesivir and Decadron. They indicated that convalescent plasma could safely be given despite transplant status. It was recommended that Tacrolimus be continued at current dose. Prednisone and Mycophenolate should be held while on Decadron to reduce the patient's total state of immunosuppression. Prednisone and Mycophenolate will need to be resumed once Decadron is stopped. Recommendations were discussed and implemented by the admitting service. Allergies Allergy/AdvReac Type Severity Reaction Status Date / Time clopidogrel [From Plavix] Allergy Verified 07/29/20 11:33 Gcliavd-Dyi-Tyq Reductase AdvReac Intermediate myalgias Verified 07/29/20 11:33 Inhibitor Home Medications Home Medications Medication Instructions Recorded Confirmed Type aspirin 81 mg chewable tablet 81 mg PO DAILY #90 tab 06/06/19 07/29/20 Rx magnesium oxide 500 mg tablet 500 mg PO DAILY #90 tab 06/06/19 07/29/20 Rx multivitamin,jc-inlp-lorhqwlt 1 tab PO DAILY #90 tab 06/06/19 07/29/20 Rx prednisone 5 mg tablet 5 mg PO DAILY #90 tab 07/23/19 07/29/20 Rx calcium carbonate 500 mg calcium 500 mg PO DAILY 09/05/19 07/29/20 History (1,250 mg) chewable tablet pantoprazole 40 mg tablet,delayed 40 mg PO DAILY #90 tab 09/05/19 07/29/20 Rx release tacrolimus 1 mg capsule 1 mg PO Q12H #180 cap 02/26/20 07/29/20 Rx lisinopril 20 mg tablet 20 mg PO DAILY #90 tab 04/09/20 07/29/20 Rx mycophenolate mofetil 250 mg 500 mg PO BID #360 cap 05/29/20 07/29/20 Rx capsule amoxicillin 2,000 mg PO ONCE 07/29/20 07/29/20 History ibandronate 150 mg PO MONTHLY 07/29/20 07/29/20 History levothyroxine 125 mcg PO DAILY 07/29/20 07/29/20 History Patient History Medical History Abdominal aortic aneurysm Anemia Benign essential hypertension CVA (cerebral vascular accident) FSGS (focal segmental glomerulosclerosis) History of esophageal reflux Hyperlipidemia Hypothyroidism Obesity Osteoporosis Proteinuria Surgical History Renal transplant, status post Social History Smoking Status: Unknown if ever smoked Hx Alcohol Use: No Hx Substance Use: No 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: 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 Aide Required: No Beliefs That Will Affect Care: None Current Living Situation: Spouse Other Information That Helps Us Care for You: No Feels Safe at Home: Yes Safety Concerns: Feels Safe At This Time Assistive Devices: Cane Review of Systems Review of Systems: Other (Not obtained - COVID pneumonia on respiratory isolation) Physical Exam Physical Exam: Not performed - COVID + status on respiratory isolation Results & Data ([facility]) Vital Signs (Past 12 Hours) Vital Signs Temp Pulse Resp BP Pulse Ox 07/30/20 08:21 36.5 C 72 19 119/78 96 07/30/20 07:00 18 07/30/20 00:18 111 H 22 137/71 96 07/29/20 22:59 90 07/29/20 22:52 36.9 C 80 22 114/73 85 L Laboratory Tests 07/30/20 07/30/20 07/30/20 05:46 05:46 05:46 WBC 6.35 Hgb 12.6 L Hct 38.6 L Plt Count 199 Sodium 138 Potassium 4.2 Chloride 110 H Carbon Dioxide 19 L BUN 33 H Creatinine 1.57 H Glucose 117 H Calcium 8.4 L Magnesium 1.8 Ferritin 788.1 H AST 53 H ALT 44 Lactate Dehydrogenase 281 H Albumin 2.6 L PG Care Time/CCT Total # of Minutes Spent Total Time Spent with Patient: Total time spent is greater than 50% in coordination of care (as documented) at patient's floor/unit and/or counseling patient: Coding Level of Care Code 66477 Inpt Consult Level 5 Diagnoses KRISSY (acute kidney injury) N17.9 Renal transplant, status post Z94.0 COVID-19 U07.1 Acute respiratory failure with hypoxemia J96.01
[2020-07-30] MEDS: DEXAMETHASONE SOD PHOSPHATE 6 MG in SYRINGE 0 ML IV SCH (12:10)
--- NOTE | 2020-07-30 16:28 | Hospitalist Progress Note ---
Date of Service July 30, 2020 Assessment & Plan (1) COVID-19: Unfortunately, the patient's diagnosis is complicated by his underlying immunocompromise state secondary to renal transplantation in February 2010. Patient symptoms of shortness of breath have been within the last 48 hours, he initially had diarrhea for a few days Patient is hypoxic on presentation requiring supplemental oxygen with transient time of requiring BiPAP. His symptoms appear to be more exertional in nature stable on 07/30 on Oxymask, 5-6L treat with Decadron 6mg IV daily Remdesivir 5 days convalascent plasma given today Zinc 220mcg daily follow inflammatory markers, titrate oxygen as tolerated continue Cefepime and Zithromax for secondary bacterial coverage (2) Acute respiratory failure with hypoxemia: patient is not in distress at all continue Oxymask for supplemental oxygen (3) KRISSY (acute kidney injury): K is up slightly at 1.5 continue gentle fluids add sodium bicarb with evidence of metabolic acidosis (4) Acute dehydration: resolved with IV fluids continue gentle fluids (5) Diarrhea: (6) Pneumonia: (7) Hx of kidney transplant: continue tacrolimus Cr is acceptable nephrology following (8) Hyperlipidemia: (9) Benign essential hypertension: (10) Hypothyroidism: (11) Obesity: (12) Renal transplant, status post: Admission and Anticipated Discharge Date Admission Date: July 29, 2020 Subjective patient reports having COVID for a week, has been dealing with diarrhea and poor appetite only recently did he have shortness of breath, he is not in any distress, says he feels fine on the oxymask no chest pain, no cough, no abdominal pain, no fever/chills, no rash reviewed labs, Cr is 1.57, HCO3 19, K 4.2, WBC and Hb stable discussed with Dr. Mccormick, appreciate his input with history of renal transplant ferritin and D dimer noted to be very high Review of Systems Review of Systems: All systems reviewed & are unremarkable except as noted in Subjective Physical Exam Constitutional: WD/WN, vitals as above no acute distress and not ill appearing Neck: trachea midline, no thyromegaly Respiratory: normal respiratory effort, lungs clear to auscultation Cardiovascular: RRR, no murmur, no edema Gastrointestinal (Abdomen): normal bowel sounds, soft, nontender, no hepatosplenomegaly Musculoskeletal: no cyanosis or clubbing, extremities motor strength 5/5 Skin: no rashes, warm and dry Neurologic: patellar DTR's 2+ bilat, sensation intact and PERRL, EOMI, accommodation nl, no face palsy, no dysarthria Psychiatric: A+Ox3, euthymic affect Lymphatic: no cervical or axillary lymphadenopathy Results & Data Results & Data ([facility]) Vital Signs (Past 12 Hours) Vital Signs Temp Pulse Pulse Resp BP BP Pulse Ox 07/30/20 16:00 18 92 07/30/20 12:54 75 18 144/77 H 4 L 07/30/20 11:54 37.1 C 70 18 142/90 H 94 07/30/20 11:24 36.8 C 72 16 124/85 94 07/30/20 11:09 36.9 C 73 18 128/84 94 07/30/20 11:00 20 94 07/30/20 10:52 37 C 76 18 123/86 93 07/30/20 10:30 18 6 L 07/30/20 08:21 36.5 C 72 19 119/78 96 07/30/20 07:00 18 Laboratory Results Laboratory Results - last 24 hr 07/29/20 07/30/20 07/30/20 20:18 05:46 05:46 WBC 6.35 RBC 4.14 L Hgb 12.6 L Hct 38.6 L MCV 93.2 MCH 30.4 MCHC 32.6 RDW Std Deviation 46.1 RDW Coeff of Jaye 13.6 Plt Count 199 MPV 10.4 Immature Gran % (Auto) 0.5 Neut % (Auto) 84.1 Lymph % (Auto) 4.3 [place] % (Auto) 10.9 Eos % (Auto) 0.0 Baso % (Auto) 0.2 Neut # (Auto) 5.35 Lymph # (Auto) 0.27 L [place] # (Auto) 0.69 H Eos # (Auto) 0.00 Baso # (Auto) 0.01 Immature Gran # (Auto) 0.03 H D-Dimer 5310 H* Sodium Potassium Chloride Carbon Dioxide Anion Gap BUN Creatinine Est Cr Clr Drug Dosing Est GFR ( Amer) Est GFR (Non-Af Amer) BUN/Creatinine Ratio Glucose Calcium Phosphorus Magnesium Ferritin Total Bilirubin Direct Bilirubin AST ALT Alkaline Phosphatase Lactate Dehydrogenase Troponin I Total Protein Albumin Blood Type A Positive Antibody Screen POSITIVE A Antibody Identification Pending Antibody ID Referred Antibody ID Comment Pending 07/30/20 07/30/20 07/30/20 05:46 05:46 05:46 WBC RBC Hgb Hct MCV MCH MCHC RDW Std Deviation RDW Coeff of Jaye Plt Count MPV Immature Gran % (Auto) Neut % (Auto) Lymph % (Auto) [place] % (Auto) Eos % (Auto) Baso % (Auto) Neut # (Auto) Lymph # (Auto) [place] # (Auto) Eos # (Auto) Baso # (Auto) Immature Gran # (Auto) D-Dimer Sodium 138 Potassium 4.2 Chloride 110 H Carbon Dioxide 19 L Anion Gap 9.0 BUN 33 H Creatinine 1.57 H Est Cr Clr Drug Dosing 59.2 Est GFR ( Amer) 55.1 Est GFR (Non-Af Amer) 47.5 BUN/Creatinine Ratio 21.3 H Glucose 117 H Calcium 8.4 L Phosphorus 3.7 Magnesium 1.8 Ferritin 788.1 H Total Bilirubin 0.5 Direct Bilirubin 0.2 AST 53 H ALT 44 Alkaline Phosphatase 111 Lactate Dehydrogenase 281 H Troponin I 0.030 Total Protein 7.2 Albumin 2.6 L Blood Type Antibody Screen Antibody Identification Antibody ID Referred Pending Antibody ID Comment Medications Administered Current Inpatient Medications Acetaminophen (Acetaminophen 325 Mg Tab) 650 mg PO Q4H PRN PRN Reason: Pain or Fever Stop: 08/28/20 19:33 Aspirin (Aspirin 81 Mg Ectab) 81 mg PO DAILY [facility] Stop: 08/29/20 08:59 Last Admin: 07/30/20 08:14 Dose: 81 mg Documented by: Calcium Carbonate (Calcium Carbonate 1250mg Tab) 1,250 mg PO DAILY [facility] Stop: 08/29/20 08:59 Last Admin: 07/30/20 08:14 Dose: 1,250 mg Documented by: Heparin Sodium (Porcine) (Heparin Sod 5,000 Unit/0.5 Ml Vial) 7,500 units SQ Q8 [facility] Stop: 08/28/20 20:59 Last Admin: 07/30/20 20:59 Dose: 7,500 units Documented by: Cefepime HCl 2,000 mg/ Syringe 20 mls @ 5 mls/min IV Q12H [facility]; Protocol Stop: 08/05/20 19:59 Last Admin: 07/30/20 20:43 Dose: 5 mls/min Documented by: Azithromycin 500 mg/ Dextrose 255 mls @ 125 mls/hr IV Q24H [facility]; Protocol Stop: 08/05/20 21:59 Last Admin: 07/30/20 20:49 Dose: 125 mls/hr Documented by: Dexamethasone Sodium Phosphate (6 mg/ Syringe) 1.5 mls @ 1 mls/min IV Q24H [facility] Stop: 08/09/20 11:59 Last Admin: 07/30/20 12:10 Dose: 1 mls/min Documented by: Levothyroxine Sodium (Levothyroxine Sodium 125 Mcg Tablet) 125 mcg PO DAILYBB [facility] Stop: 08/29/20 06:29 Last Admin: 07/30/20 06:27 Dose: 125 mcg Documented by: Magnesium Oxide (Magnesium Oxide 400 Mg Tab) 400 mg PO DAILY [facility] Stop: 08/29/20 08:59 Last Admin: 07/30/20 08:14 Dose: 400 mg Documented by: Multivitamins/Minerals (Cerovite Adv Formula Tab) 1 tab PO DAILY [facility] Stop: 08/29/20 08:59 Last Admin: 07/30/20 08:14 Dose: 1 tab Documented by: Pantoprazole Sodium (Pantoprazole 40 Mg Tab) 40 mg PO DAILY [facility] Stop: 08/29/20 08:59 Last Admin: 07/30/20 08:14 Dose: 40 mg Documented by: Tacrolimus (Tacrolimus 1 Mg Cap) 1 mg PO Q12 [facility] Stop: 08/28/20 20:59 Last Admin: 07/30/20 20:43 Dose: 1 mg Documented by: PG Care Time/CCT Total # of Minutes Spent Total Time Spent with Patient: Total time spent is greater than 50% in coordination of care (as documented) at patient's floor/unit and/or counseling patient: Coding Level of Care Code 41600 Subseq Hosp Care Lvl 3 Diagnoses COVID-19 U07.1 Acute respiratory failure with hypoxemia J96.01 KRISSY (acute kidney injury) N17.9 Acute dehydration E86.0 Diarrhea R19.7 Diarrhea type: unspecified type Pneumonia J18.9 Laterality: bilateral Lung location: unspecified part of lung Pneumonia type: due to unspecified organism Hx of kidney transplant Z94.0 Hyperlipidemia E78.5 Hyperlipidemia type: unspecified Benign essential hypertension I10 Hypothyroidism E03.8 Hypothyroidism type: other Obesity E66.9 Obesity classification: adult class 2 (BMI 35 - 39.9) Obesity type: unspecified obesity type Renal transplant, status post Z94.0 (1) Diarrhea Diarrhea type: unspecified type Qualified Code(s): R19.7 - Diarrhea, unspecified (2) Hyperlipidemia Hyperlipidemia type: unspecified Qualified Code(s): E78.5 - Hyperlipidemia, unspecified (3) Hypothyroidism Hypothyroidism type: other Qualified Code(s): E03.8 - Other specified hypothyroidism (4) Pneumonia Laterality: bilateral Lung location: unspecified part of lung Pneumonia type: due to unspecified organism Qualified Code(s): J18.9 - Pneumonia, unspecified organism (5) Obesity Obesity classification: adult class 2 (BMI 35 - 39.9) Obesity type: unspecified obesity type
[2020-07-30] MEDS: AZITHROMYCIN 500 MG in DEXTROSE 5% 250 ML IV SCH (20:49)
[2020-07-31] MEDS: LEVOTHYROXINE SODIUM 125 MCG TABLET PO SCH (06:28)
[2020-07-31] MEDS: HEPARIN SOD 5,000 UNIT/0.5 ML VIAL SQ SCH ×3 (06:28→23:58)
[2020-07-31 06:30] LABS: Eosinophils # (auto) 0.02 K/uL (0-0.5); Eosinophils % (auto) 0.2 %; Hemoglobin 11.8 g/dL (14.0-18.0); Immature Granulocytes # (auto) 0.04 K/uL (0.00-0.02); Immature Granulocytes % (auto) 0.4 %; Lymphocytes # (auto) 0.46 K/uL (1.2-3.4); Lymphocytes % (auto) 4.3 %; Mean Corpuscular Hemoglobin 29.1 pg (25-34); Mean Corpuscular Hgb Conc 31.1 g/dL (32-36); Mean Corpuscular Volume 93.8 fL (80-100); Mean Platelet Volume 10.2 fL (7.4-10.4); Monocytes # (auto) 1.32 K/uL (0.11-0.59); Monocytes % (auto) 12.3 %; Neutrophils # (auto) 8.88 K/uL (1.4-6.5); Neutrophils % (auto) 82.8 %; Platelet Count 233 K/uL (130-400); RDW Coefficient of Variation 13.5 % (11.5-14.5); RDW Standard Deviation 46.7 fL (36.4-46.3); Red Blood Count 4.05 M/uL (4.7-6.1); White Blood Count 10.72 K/uL (4.8-10.8)
[2020-07-31 07:06] LABS: Albumin Level 2.4 gm/dl (3.4-5.0); Bilirubin Direct 0.2 mg/dl (0-0.2); Calcium 8.4 mg/dl (8.5-10.1); Creatinine Clr Calc Pharmacy 70.2 ml/min; Est GFR (African American) 70.5; Est GFR (Non-African American) 60.9; Potassium 4.5 mmol/L (3.5-5.1)
[2020-07-31 07:09] LABS: Bilirubin,Total 0.6 mg/dl (0.2-1); Phosphorus 3.3 mg/dl (2.5-4.9); Total Protein 6.8 gm/dl (6.4-8.2)
[2020-07-31] MEDS: TACROLIMUS 1 MG CAP PO SCH ×2 (08:09→20:26)
[2020-07-31] MEDS: CEFEPIME 2,000 MG in SYRINGE 0 ML IV SCH ×3 (08:09→23:45)
[2020-07-31] MEDS: ASPIRIN 81 MG ECTAB PO SCH (08:10)
[2020-07-31] MEDS: PANTOprazole 40 MG TAB PO SCH (08:10)
[2020-07-31] MEDS: CEROVITE ADV FORMULA TAB PO SCH (08:10)
[2020-07-31] MEDS: MAGNESIUM OXIDE 400 MG TAB PO SCH (08:10)
[2020-07-31] MEDS: CALCIUM CARBONATE 1250MG TAB PO SCH (08:10)
--- NOTE | 2020-07-31 10:50 | Nephrology Progress Note ---
Date of Service July 31, 2020 Assessment & Plan (1) KRISSY (acute kidney injury): * KRISSY resolved. 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 Trough Tacrolimus level this am is relatively low at 2.9. Azithromycin may reduce CNI metabolism and raise level. Continue current dose of Tacrolimus and repeat level in 3 - 5 days. Target trough Tacrolimus level is 3.5 - 5.0. (3) COVID-19: * Medical POC has been discussed w/ [facility] Kidney Transplant Service * Continue Tacrolimus (monitor level). Hold Mycophenolate and Prednisone while on Decadron therapy to reduce total state of immunosuppression. Resume prior dose of Mycophenolate and Prednisone when Decadron is tapered off * Continue Remdesivir and convalescent plasma therapy as per primary service (4) Acute respiratory failure with hypoxemia: * CXR w/ bilateral infiltrates * Continue supportive care/high flow oxygen (prone positioning if needed) * On empiric Cefepime and Azithromycin therapy Admission and Anticipated Discharge Date Admission Date: July 29, 2020 Subjective Patient was not interviewed or examined due to COVID + status. Medical plan of care was discussed w/ the primary service. Physical Exam Physical Exam: Not performed - COVID + status on respiratory isolation Results & Data ([facility]) Vital Signs (Past 12 Hours) Vital Signs Temp Pulse Pulse Resp BP Pulse Ox 07/31/20 07:55 36.5 C 741 H 16 128/85 93 07/31/20 03:19 36.4 C L 68 20 114/79 96 07/31/20 00:04 36.4 C L 71 20 111/77 97 07/30/20 23:59 79 Laboratory Tests 07/31/20 07/31/20 04:44 06:16 WBC 10.72 Hgb 11.8 L Hct 38.0 L Plt Count 233 Sodium 138 Potassium 4.5 Chloride 111 H Carbon Dioxide 22 BUN 38 H Creatinine 1.28 Glucose 102 H Laboratory Tests 07/29/20 11:05 Tacrolimus 2.9 L PG Care Time/CCT Total # of Minutes Spent Total Time Spent with Patient: Total time spent is greater than 50% in coordination of care (as documented) at patient's floor/unit and/or counseling patient: Coding Level of Care Code 60298 Subseq Hosp Care Lvl 3 Diagnoses KRISSY (acute kidney injury) N17.9 Renal transplant, status post Z94.0 COVID-19 U07.1 Acute respiratory failure with hypoxemia J96.01
[2020-07-31] MEDS: ZINC SULFATE 220 MG CAPSULE PO SCH (11:12)
[2020-07-31] MEDS: SODIUM BICARBONATE 650 MG TAB PO SCH ×2 (11:12→20:27)
[2020-07-31] MEDS: DEXAMETHASONE SOD PHOSPHATE 6 MG in SYRINGE 0 ML IV SCH (15:53)
[2020-07-31] MEDS: AZITHROMYCIN 500 MG in DEXTROSE 5% 250 ML IV SCH (20:31)
--- NOTE | 2020-07-31 21:59 | Hospitalist Progress Note ---
Date of Service July 31, 2020 Assessment & Plan (1) COVID-19: Unfortunately, the patient's diagnosis is complicated by his underlying immunocompromise state secondary to renal transplantation in February 2010. Patient developed shortness of breath 48 hours prior to admission, he initially had diarrhea for a few days Patient is hypoxic on presentation requiring supplemental oxygen with transient time of requiring BiPAP. His symptoms appear to be more exertional in nature stable on 07/30 on Oxymask 6-7 L, no distress at all treat with Decadron 6mg IV daily Remdesivir 5 days convalascent plasma given 07/30 Zinc 220mcg daily follow inflammatory markers, titrate oxygen as tolerated continue Cefepime and Zithromax for secondary bacterial coverage, complete 5 days of coverage (2) Acute respiratory failure with hypoxemia: patient is not in distress at all continue Oxymask for supplemental oxygen up a little at 7L but importantly he is not working hard to breathe (3) KRISSY (acute kidney injury): K is up slightly at 1.5 resolved, down to 1.28, HCO3 normal stop fluids (4) Acute dehydration: resolved with IV fluids (5) Diarrhea: (6) Pneumonia: (7) Hx of kidney transplant: continue tacrolimus Cr is acceptable nephrology following (8) Hyperlipidemia: (9) Benign essential hypertension: (10) Hypothyroidism: (11) Obesity: (12) Renal transplant, status post: Admission and Anticipated Discharge Date Admission Date: July 29, 2020 Subjective patient says he is feeling better, no dyspnea at all, no cough, no fever/chills still requiring 7L oxymask, says he prefers the mask to nasal canula his diarrhea is resolved, no nausea, no abdominal pain reviewed labs, Cr is stable as well as electrolytes, WBC normal Review of Systems Review of Systems: All systems reviewed & are unremarkable except as noted in Subjective Physical Exam Constitutional: WD/WN, vitals as above no acute distress and not ill appearing Neck: trachea midline, no thyromegaly Respiratory: normal respiratory effort, lungs clear to auscultation Cardiovascular: RRR, no murmur, no edema Gastrointestinal (Abdomen): normal bowel sounds, soft, nontender, no hepatosplenomegaly Musculoskeletal: no cyanosis or clubbing, extremities motor strength 5/5 Skin: no rashes, warm and dry Neurologic: patellar DTR's 2+ bilat, sensation intact and PERRL, EOMI, accommodation nl, no face palsy, no dysarthria Psychiatric: A+Ox3, euthymic affect Lymphatic: no cervical or axillary lymphadenopathy Results & Data Results & Data ([facility]) Vital Signs (Past 12 Hours) Vital Signs Temp Pulse Pulse Resp BP Pulse Ox Pulse Ox 07/31/20 19:52 36.6 C 86 20 110/77 95 07/31/20 19:00 95 07/31/20 17:00 88 07/31/20 11:31 36.3 C L 77 18 116/79 92 07/31/20 10:00 93 Laboratory Results Laboratory Results - last 24 hr 07/29/20 07/31/20 07/31/20 11:05 04:44 06:16 WBC 10.72 RBC 4.05 L Hgb 11.8 L Hct 38.0 L MCV 93.8 MCH 29.1 MCHC 31.1 L RDW Std Deviation 46.7 H RDW Coeff of Jaye 13.5 Plt Count 233 MPV 10.2 Immature Gran % (Auto) 0.4 Neut % (Auto) 82.8 Lymph % (Auto) 4.3 [place] % (Auto) 12.3 Eos % (Auto) 0.2 Baso % (Auto) 0.0 Neut # (Auto) 8.88 H Lymph # (Auto) 0.46 L [place] # (Auto) 1.32 H Eos # (Auto) 0.02 Baso # (Auto) 0.00 Immature Gran # (Auto) 0.04 H Sodium 138 Potassium 4.5 Chloride 111 H Carbon Dioxide 22 Anion Gap 5.0 BUN 38 H Creatinine 1.28 Est Cr Clr Drug Dosing 70.2 Est GFR ( Amer) 70.5 Est GFR (Non-Af Amer) 60.9 BUN/Creatinine Ratio 30.0 H Glucose 102 H Calcium 8.4 L Phosphorus 3.3 Magnesium 2.0 Total Bilirubin 0.6 Direct Bilirubin 0.2 AST 36 ALT 37 Alkaline Phosphatase 100 Total Protein 6.8 Albumin 2.4 L Tacrolimus 2.9 L Medications Administered Current Inpatient Medications Acetaminophen (Acetaminophen 325 Mg Tab) 650 mg PO Q4H PRN PRN Reason: Pain or Fever Stop: 08/28/20 19:33 Aspirin (Aspirin 81 Mg Ectab) 81 mg PO DAILY [facility] Stop: 08/29/20 08:59 Last Admin: 07/31/20 08:10 Dose: 81 mg Documented by: Calcium Carbonate (Calcium Carbonate 1250mg Tab) 1,250 mg PO DAILY [facility] Stop: 08/29/20 08:59 Last Admin: 07/31/20 08:10 Dose: 1,250 mg Documented by: Heparin Sodium (Porcine) (Heparin Sod 5,000 Unit/0.5 Ml Vial) 7,500 units SQ Q8 [facility] Stop: 08/28/20 20:59 Last Admin: 07/31/20 15:51 Dose: 7,500 units Documented by: Azithromycin 500 mg/ Dextrose 255 mls @ 125 mls/hr IV Q24H [facility]; Protocol Stop: 08/05/20 21:59 Last Admin: 07/31/20 20:31 Dose: 125 mls/hr Documented by: Dexamethasone Sodium Phosphate (6 mg/ Syringe) 1.5 mls @ 1 mls/min IV Q24H [facility] Stop: 08/09/20 11:59 Last Admin: 07/31/20 15:53 Dose: 1 mls/min Documented by: Cefepime HCl 2,000 mg/ Syringe 20 mls @ 5 mls/min IV Q8H [facility]; Protocol Stop: 08/05/20 15:59 Last Admin: 07/31/20 17:31 Dose: 5 mls/min Documented by: Levothyroxine Sodium (Levothyroxine Sodium 125 Mcg Tablet) 125 mcg PO DAILYBB [facility] Stop: 08/29/20 06:29 Last Admin: 07/31/20 06:28 Dose: 125 mcg Documented by: Magnesium Oxide (Magnesium Oxide 400 Mg Tab) 400 mg PO DAILY [facility] Stop: 08/29/20 08:59 Last Admin: 07/31/20 08:10 Dose: 400 mg Documented by: Multivitamins/Minerals (Cerovite Adv Formula Tab) 1 tab PO DAILY [facility] Stop: 08/29/20 08:59 Last Admin: 07/31/20 08:10 Dose: 1 tab Documented by: Pantoprazole Sodium (Pantoprazole 40 Mg Tab) 40 mg PO DAILY [facility] Stop: 08/29/20 08:59 Last Admin: 07/31/20 08:10 Dose: 40 mg Documented by: Sodium Bicarbonate (Sodium Bicarbonate 650 Mg Tab) 650 mg PO BID [facility] Stop: 08/30/20 08:59 Last Admin: 11/13/20 20:27 Dose: 650 mg Documented by: Tacrolimus (Tacrolimus 1 Mg Cap) 1 mg PO Q12 [facility] Stop: 08/28/20 20:59 Last Admin: 07/31/20 20:26 Dose: 1 mg Documented by: Zinc Sulfate (Zinc Sulfate 220 Mg Capsule) 220 mg PO QAM [facility] Stop: 08/30/20 08:59 Last Admin: 07/31/20 11:12 Dose: 220 mg Documented by: PG Care Time/CCT Total # of Minutes Spent Total Time Spent with Patient: Total time spent is greater than 50% in coordination of care (as documented) at patient's floor/unit and/or counseling patient: Coding Level of Care Code 55227 Subseq Hosp Care Lvl 3 Diagnoses COVID-19 U07.1 Acute respiratory failure with hypoxemia J96.01 KRISSY (acute kidney injury) N17.9 Acute dehydration E86.0 Diarrhea R19.7 Diarrhea type: unspecified type Pneumonia J18.9 Pneumonia type: due to unspecified organism Laterality: bilateral Lung location: unspecified part of lung Hx of kidney transplant Z94.0 Hyperlipidemia E78.5 Hyperlipidemia type: unspecified Benign essential hypertension I10 Hypothyroidism E03.8 Hypothyroidism type: other Obesity E66.9 Obesity type: unspecified obesity type Obesity classification: adult class 2 (BMI 35 - 39.9) Renal transplant, status post Z94.0 (1) Diarrhea Diarrhea type: unspecified type Qualified Code(s): R19.7 - Diarrhea, unspecified (2) Pneumonia Pneumonia type: due to unspecified organism Laterality: bilateral Lung location: unspecified part of lung Qualified Code(s): J18.9 - Pneumonia, unspecified organism (3) Hyperlipidemia Hyperlipidemia type: unspecified Qualified Code(s): E78.5 - Hyperlipidemia, unspecified (4) Hypothyroidism Hypothyroidism type: other Qualified Code(s): E03.8 - Other specified hypothyroidism (5) Obesity Obesity type: unspecified obesity type Obesity classification: adult class 2 (BMI 35 - 39.9)
[2020-08-01] MEDS: LEVOTHYROXINE SODIUM 125 MCG TABLET PO SCH (06:06)
[2020-08-01] MEDS: HEPARIN SOD 5,000 UNIT/0.5 ML VIAL SQ SCH ×3 (06:06→21:18)
[2020-08-01 07:00] LABS: Hematocrit (blood only) 36.2 % (42-52); Immature Granulocytes # (auto) 0.03 K/uL (0.00-0.02); Immature Granulocytes % (auto) 0.3 %; Lymphocytes # (auto) 0.57 K/uL (1.2-3.4); Lymphocytes % (auto) 6.5 %; Mean Corpuscular Hemoglobin 30.5 pg (25-34); Mean Corpuscular Hgb Conc 33.1 g/dL (32-36); Mean Corpuscular Volume 91.9 fL (80-100); Mean Platelet Volume 10.2 fL (7.4-10.4); Monocytes # (auto) 0.46 K/uL (0.11-0.59); Monocytes % (auto) 5.3 %; Neutrophils # (auto) 7.66 K/uL (1.4-6.5); Neutrophils % (auto) 87.9 %; Platelet Count 249 K/uL (130-400); RDW Coefficient of Variation 13.4 % (11.5-14.5); RDW Standard Deviation 44.9 fL (36.4-46.3); Red Blood Count 3.94 M/uL (4.7-6.1); White Blood Count 8.72 K/uL (4.8-10.8)
[2020-08-01 07:27] LABS: Albumin Level 2.4 gm/dl (3.4-5.0); BUN Creatinine Ratio 31.8 (10-20); Bilirubin Direct 0.1 mg/dl (0-0.2); Calcium 8.3 mg/dl (8.5-10.1); Creatinine Clr Calc Pharmacy 82.2 ml/min; Est GFR (African American) 80.3; Est GFR (Non-African American) 69.3; Potassium 4.7 mmol/L (3.5-5.1)
[2020-08-01 07:30] LABS: Bilirubin,Total 0.5 mg/dl (0.2-1); Phosphorus 3.3 mg/dl (2.5-4.9)
[2020-08-01] MEDS: SODIUM BICARBONATE 650 MG TAB PO SCH ×2 (08:32→19:42)
[2020-08-01] MEDS: TACROLIMUS 1 MG CAP PO SCH ×2 (08:32→19:43)
[2020-08-01] MEDS: CEROVITE ADV FORMULA TAB PO SCH (08:32)
[2020-08-01] MEDS: MAGNESIUM OXIDE 400 MG TAB PO SCH (08:32)
[2020-08-01] MEDS: CEFEPIME 2,000 MG in SYRINGE 0 ML IV SCH ×3 (08:32→23:15)
[2020-08-01] MEDS: CALCIUM CARBONATE 1250MG TAB PO SCH (08:32)
[2020-08-01] MEDS: ZINC SULFATE 220 MG CAPSULE PO SCH (08:33)
[2020-08-01] MEDS: ASPIRIN 81 MG ECTAB PO SCH (08:33)
[2020-08-01] MEDS: PANTOprazole 40 MG TAB PO SCH (08:33)
[2020-08-01 11:01] LABS: BK Virus Source Plasma
[2020-08-01] MEDS: DEXAMETHASONE SOD PHOSPHATE 6 MG in SYRINGE 0 ML IV SCH (11:35)
--- NOTE | 2020-08-01 11:44 | Nephrology Progress Note ---
Date of Service August 01, 2020 Assessment & Plan (1) KRISSY (acute kidney injury): 59 y o M with stage 3 a CKD s/p LURT due to FSGS 2009 at [facility]. Baseline Cr 1.4. Admitted with respiratory failure with COVID 19. Received Remdesivir and convalescent plasma therapy. On admission has KRISSY with cr 1.8, now resolved. -- Continue Tacrolimus (monitor level). Hold Mycophenolate and Prednisone while on Decadron therapy to reduce total state of immunosuppression. Resume prior dose of Mycophenolate and Prednisone when Decadron is tapered off. Trough Tacrolimus level was relatively low at 2.9. Azithromycin may reduce CNI metabolism and raise level. Continue current dose of Tacrolimus and repeat level on Monday. Target trough Tacrolimus level is 3.5 - 5.0. --maintain adequate hydration, avoid hypotension, nephrotoxic medications Will follow (2) Renal transplant, status post: (3) COVID-19: (4) Acute respiratory failure with hypoxemia: Admission and Anticipated Discharge Date Admission Date: July 29, 2020 Subjective Gumaro has been feeling better, SOB improved, denies cough, F/C. Appetite fair. BP acceptable. denies voiding symptoms. Review of Systems Review of Systems: All systems reviewed & are unremarkable except as noted in Subjective Physical Exam Physical Exam: Vital signs stable, in person exam was not done. Results & Data ([facility]) Vital Signs (Past 12 Hours) Vital Signs Temp Pulse Pulse Resp BP Pulse Ox 08/01/20 07:50 36.4 C L 69 18 123/93 93 08/01/20 07:30 65 08/01/20 04:14 36.4 C L 68 16 136/90 96 07/31/20 23:59 74 PG Care Time/CCT Total # of Minutes Spent Total Time Spent with Patient: Total time spent is greater than 50% in coordination of care (as documented) at patient's floor/unit and/or counseling patient: Coding Level of Care Code 89334 Subseq Hosp Care Lvl 2 Diagnoses KRISSY (acute kidney injury) N17.9 Renal transplant, status post Z94.0 COVID-19 U07.1 Acute respiratory failure with hypoxemia J96.01
--- NOTE | 2020-08-01 12:28 | Hospitalist Progress Note ---
Date of Service August 01, 2020 Assessment & Plan (1) COVID-19: Unfortunately, the patient's diagnosis is complicated by his underlying immunocompromise state secondary to renal transplantation in February 2010. Patient developed shortness of breath 48 hours prior to admission, he initially had diarrhea for a few days Patient is hypoxic on presentation requiring supplemental oxygen with transient time of requiring BiPAP. His symptoms appear to be more exertional in nature stable today on 5L oxymask, continues to be comfortable, no signs of respiratory distress treat with Decadron 6mg IV daily, today is day 4 Remdesivir 5 days, today is day 4 convalascent plasma given 07/30 Zinc 220mcg daily follow inflammatory markers, titrate oxygen as tolerated continue Cefepime and Zithromax for secondary bacterial coverage, complete 5 days of coverage which will be tomorrow anticipate him being here 2-3 more days to titrate down on oxygen (2) Acute respiratory failure with hypoxemia: patient is not in distress at all continue Oxymask for supplemental oxygen down to 5L today hope to be down further the next 2-3 days (3) KRISSY (acute kidney injury): Cr is 1.15 no fluids running metabolic acidosis with HCO3 of 19, continue on sodium bicarb (4) Acute dehydration: resolved with IV fluids (5) Diarrhea: due to COVID 19 infection resolved today (6) Pneumonia: (7) Hx of kidney transplant: continue tacrolimus Cr is acceptable nephrology following (8) Hyperlipidemia: (9) Benign essential hypertension: (10) Hypothyroidism: (11) Obesity: (12) Renal transplant, status post: Admission and Anticipated Discharge Date Admission Date: July 29, 2020 Subjective patient's breathing is a little better today, stable on 5L oxymask he is eating and drinking better, his bowels are solid, diarrhea is resolved no real cough, no fever/chills reviewed labs, Cr is 1.1, HCO3 is 19 on sodium bicarb, K is 4.7 CBC shows stable WBC and Hb Review of Systems Review of Systems: All systems reviewed & are unremarkable except as noted in Subjective Physical Exam Constitutional: WD/WN, vitals as above no acute distress and not ill appearing Neck: trachea midline, no thyromegaly Respiratory: normal respiratory effort, lungs clear to auscultation Cardiovascular: RRR, no murmur, no edema Gastrointestinal (Abdomen): normal bowel sounds, soft, nontender, no hepatosplenomegaly Musculoskeletal: no cyanosis or clubbing, extremities motor strength 5/5 Skin: no rashes, warm and dry Neurologic: patellar DTR's 2+ bilat, sensation intact and PERRL, EOMI, accommodation nl, no face palsy, no dysarthria Psychiatric: A+Ox3, euthymic affect Lymphatic: no cervical or axillary lymphadenopathy Results & Data Results & Data ([facility]) Vital Signs (Past 12 Hours) Vital Signs Temp Pulse Pulse Resp BP Pulse Ox 08/01/20 12:00 36.3 C L 81 20 139/95 96 08/01/20 07:50 36.4 C L 69 18 123/93 93 08/01/20 07:30 65 08/01/20 04:14 36.4 C L 68 16 136/90 96 Laboratory Results Laboratory Results - last 24 hr 07/29/20 07/29/20 08/01/20 11:05 20:18 05:35 WBC 8.72 RBC 3.94 L Hgb 12.0 L Hct 36.2 L MCV 91.9 MCH 30.5 MCHC 33.1 RDW Std Deviation 44.9 RDW Coeff of Jaye 13.4 Plt Count 249 MPV 10.2 Immature Gran % (Auto) 0.3 Neut % (Auto) 87.9 Lymph % (Auto) 6.5 Tyler % (Auto) 5.3 Eos % (Auto) 0.0 Baso % (Auto) 0.0 Neut # (Auto) 7.66 H Lymph # (Auto) 0.57 L Tyler # (Auto) 0.46 Eos # (Auto) 0.00 Baso # (Auto) 0.00 Immature Gran # (Auto) 0.03 H Sodium Potassium Chloride Carbon Dioxide Anion Gap BUN Creatinine Est Cr Clr Drug Dosing Est GFR ( Amer) Est GFR (Non-Af Amer) BUN/Creatinine Ratio Glucose Calcium Phosphorus Magnesium Total Bilirubin Direct Bilirubin AST ALT Alkaline Phosphatase Total Protein Albumin BK Virus DNA Quant PCR <500 Virus Source Plasma Antibody Identification Auto Gil Agglutinin Antibody ID Comment Cancelled 08/01/20 05:35 WBC RBC Hgb Hct MCV MCH MCHC RDW Std Deviation RDW Coeff of Jaye Plt Count MPV Immature Gran % (Auto) Neut % (Auto) Lymph % (Auto) Tyler % (Auto) Eos % (Auto) Baso % (Auto) Neut # (Auto) Lymph # (Auto) Tyler # (Auto) Eos # (Auto) Baso # (Auto) Immature Gran # (Auto) Sodium 137 Potassium 4.7 Chloride 111 H Carbon Dioxide 19 L Anion Gap 7.0 BUN 37 H Creatinine 1.15 Est Cr Clr Drug Dosing 82.2 Est GFR ( Amer) 80.3 Est GFR (Non-Af Amer) 69.3 BUN/Creatinine Ratio 31.8 H Glucose 122 H Calcium 8.3 L Phosphorus 3.3 Magnesium 2.0 Total Bilirubin 0.5 Direct Bilirubin 0.1 AST 28 ALT 31 Alkaline Phosphatase 99 Total Protein 7.0 Albumin 2.4 L BK Virus DNA Quant PCR Virus Source Antibody Identification Antibody ID Comment Medications Administered Current Inpatient Medications Acetaminophen (Acetaminophen 325 Mg Tab) 650 mg PO Q4H PRN PRN Reason: Pain or Fever Stop: 08/28/20 19:33 Aspirin (Aspirin 81 Mg Ectab) 81 mg PO DAILY [facility] Stop: 08/29/20 08:59 Last Admin: 08/01/20 08:33 Dose: 81 mg Documented by: Calcium Carbonate (Calcium Carbonate 1250mg Tab) 1,250 mg PO DAILY [facility] Stop: 08/29/20 08:59 Last Admin: 08/01/20 08:32 Dose: 1,250 mg Documented by: Heparin Sodium (Porcine) (Heparin Sod 5,000 Unit/0.5 Ml Vial) 7,500 units SQ Q8 [facility] Stop: 08/28/20 20:59 Last Admin: 08/01/20 06:06 Dose: 7,500 units Documented by: Azithromycin 500 mg/ Dextrose 255 mls @ 125 mls/hr IV Q24H [facility]; Protocol Stop: 08/05/20 21:59 Last Infusion: 07/31/20 22:46 Dose: Infused Documented by: Dexamethasone Sodium Phosphate (6 mg/ Syringe) 1.5 mls @ 1 mls/min IV Q24H [facility] Stop: 08/09/20 11:59 Last Admin: 08/01/20 11:35 Dose: 1 mls/min Documented by: Cefepime HCl 2,000 mg/ Syringe 20 mls @ 5 mls/min IV Q8H [facility]; Protocol Stop: 08/05/20 15:59 Last Admin: 08/01/20 08:32 Dose: 5 mls/min Documented by: Levothyroxine Sodium (Levothyroxine Sodium 125 Mcg Tablet) 125 mcg PO DAILYBB [facility] Stop: 08/29/20 06:29 Last Admin: 08/01/20 06:06 Dose: 125 mcg Documented by: Magnesium Oxide (Magnesium Oxide 400 Mg Tab) 400 mg PO DAILY [facility] Stop: 08/29/20 08:59 Last Admin: 08/01/20 08:32 Dose: 400 mg Documented by: Multivitamins/Minerals (Cerovite Adv Formula Tab) 1 tab PO DAILY [facility] Stop: 08/29/20 08:59 Last Admin: 08/01/20 08:32 Dose: 1 tab Documented by: Pantoprazole Sodium (Pantoprazole 40 Mg Tab) 40 mg PO DAILY [facility] Stop: 08/29/20 08:59 Last Admin: 08/01/20 08:33 Dose: 40 mg Documented by: Sodium Bicarbonate (Sodium Bicarbonate 650 Mg Tab) 650 mg PO BID [facility] Stop: 08/30/20 08:59 Last Admin: 08/01/20 08:32 Dose: 650 mg Documented by: Tacrolimus (Tacrolimus 1 Mg Cap) 1 mg PO Q12 [facility] Stop: 08/28/20 20:59 Last Admin: 08/01/20 08:32 Dose: 1 mg Documented by: Zinc Sulfate (Zinc Sulfate 220 Mg Capsule) 220 mg PO QAM [facility] Stop: 08/30/20 08:59 Last Admin: 08/01/20 08:33 Dose: 220 mg Documented by: PG Care Time/CCT Total # of Minutes Spent Total Time Spent with Patient: Total time spent is greater than 50% in coordination of care (as documented) at patient's floor/unit and/or counseling patient: Coding Level of Care Code 97184 Subseq Hosp Care Lvl 3 Diagnoses COVID-19 U07.1 Acute respiratory failure with hypoxemia J96.01 KRISSY (acute kidney injury) N17.9 Acute dehydration E86.0 Diarrhea R19.7 Diarrhea type: unspecified type Pneumonia J18.9 Pneumonia type: due to unspecified organism Laterality: bilateral Lung location: unspecified part of lung Hx of kidney transplant Z94.0 Hyperlipidemia E78.5 Hyperlipidemia type: unspecified Benign essential hypertension I10 Hypothyroidism E03.8 Hypothyroidism type: other Obesity E66.9 Obesity type: unspecified obesity type Obesity classification: adult class 2 (BMI 35 - 39.9) Renal transplant, status post Z94.0 (1) Diarrhea Diarrhea type: unspecified type Qualified Code(s): R19.7 - Diarrhea, unspecified (2) Pneumonia Pneumonia type: due to unspecified organism Laterality: bilateral Lung location: unspecified part of lung Qualified Code(s): J18.9 - Pneumonia, unspecified organism (3) Hyperlipidemia Hyperlipidemia type: unspecified Qualified Code(s): E78.5 - Hyperlipidemia, unspecified (4) Hypothyroidism Hypothyroidism type: other Qualified Code(s): E03.8 - Other specified hypothyroidism (5) Obesity Obesity type: unspecified obesity type Obesity classification: adult class 2 (BMI 35 - 39.9)
[2020-08-01] MEDS: AZITHROMYCIN 500 MG in DEXTROSE 5% 250 ML IV SCH (21:18)
[2020-08-02] MEDS: LEVOTHYROXINE SODIUM 125 MCG TABLET PO SCH (06:22)
[2020-08-02] MEDS: HEPARIN SOD 5,000 UNIT/0.5 ML VIAL SQ SCH ×3 (06:22→20:19)
[2020-08-02 07:13] LABS: Hematocrit (blood only) 35.4 % (42-52); Hemoglobin 11.8 g/dL (14.0-18.0); Mean Corpuscular Hemoglobin 30.4 pg (25-34); Mean Corpuscular Hgb Conc 33.3 g/dL (32-36); Mean Corpuscular Volume 91.2 fL (80-100); Mean Platelet Volume 10.6 fL (7.4-10.4); Nucleated RBC # (auto) 0.02 K/uL (0-0); Nucleated RBC % (auto) 0.2 %; Platelet Count 265 K/uL (130-400); RDW Coefficient of Variation 13.4 % (11.5-14.5); RDW Standard Deviation 44.2 fL (36.4-46.3); Red Blood Count 3.88 M/uL (4.7-6.1); White Blood Count 11.55 K/uL (4.8-10.8)
[2020-08-02 07:42] LABS: Albumin Level 2.4 gm/dl (3.4-5.0); Calcium 8.3 mg/dl (8.5-10.1); Est GFR (African American) 88.6; Est GFR (Non-African American) 76.4; Phosphorus 2.8 mg/dl (2.5-4.9); Potassium 4.6 mmol/L (3.5-5.1)
[2020-08-02] MEDS: CEFEPIME 2,000 MG in SYRINGE 0 ML IV SCH ×2 (08:10→16:24)
[2020-08-02] MEDS: ASPIRIN 81 MG ECTAB PO SCH (08:11)
[2020-08-02] MEDS: CEROVITE ADV FORMULA TAB PO SCH (08:12)
[2020-08-02] MEDS: CALCIUM CARBONATE 1250MG TAB PO SCH (08:12)
[2020-08-02] MEDS: TACROLIMUS 1 MG CAP PO SCH ×2 (08:12→20:19)
[2020-08-02] MEDS: ZINC SULFATE 220 MG CAPSULE PO SCH (08:13)
[2020-08-02] MEDS: SODIUM BICARBONATE 650 MG TAB PO SCH ×2 (08:13→20:19)
[2020-08-02] MEDS: PANTOprazole 40 MG TAB PO SCH (08:13)
[2020-08-02] MEDS: MAGNESIUM OXIDE 400 MG TAB PO SCH (08:19)
--- NOTE | 2020-08-02 10:03 | Hospitalist Progress Note ---
Date of Service August 02, 2020 Assessment & Plan (1) COVID-19: Unfortunately, the patient's diagnosis is complicated by his underlying immunocompromise state secondary to renal transplantation in February 2010. Patient developed shortness of breath 48 hours prior to admission, he initially had diarrhea for a few days Patient is hypoxic on presentation requiring supplemental oxygen with transient time of requiring BiPAP. His symptoms appear to be more exertional in nature stable today on 7L oxymask, continues to be comfortable, no signs of respiratory distress since admission treat with Decadron 6mg IV daily, today is day 5 Remdesivir 5 days, today is day 5 convalascent plasma given 07/30 Zinc 220mcg daily follow inflammatory markers, titrate oxygen as tolerated continue Cefepime and Zithromax for secondary bacterial coverage, completed 5 days of treatment on 08/02 anticipate him being here a few more days to titrate down on oxygen, should be ready for discharge by end of the week (2) Acute respiratory failure with hypoxemia: patient is not in distress at all continue Oxymask for supplemental oxygen on 7L today (3) KRISSY (acute kidney injury): Cr is 1.06, electrolytes stable no fluids running metabolic acidosis with HCO3 of 20, continue on sodium bicarb (4) Acute dehydration: resolved with IV fluids (5) Diarrhea: due to COVID 19 infection solid BM for the past two days (6) Pneumonia: (7) Hx of kidney transplant: continue tacrolimus Cr is acceptable nephrology following tacrolimus level a little low, plan to repeat tomorrow Zithromax can lower the level and it is complete today (8) Hyperlipidemia: (9) Benign essential hypertension: (10) Hypothyroidism: (11) Obesity: (12) Renal transplant, status post: Admission and Anticipated Discharge Date Admission Date: July 29, 2020 Subjective patient continues to feel a little better each day still requiring 7L mask but no distress at all, minimal cough, says he is breathing easier he continues to eat and drink well, moving bowels, making urine his Cr and electrolytes are stable discussed that it will take a few more days, hopeful he will be ready for discharge by end of the week discussed that a new hospitalist will take over tomorrow Review of Systems Review of Systems: All systems reviewed & are unremarkable except as noted in Subjective Constitutional: no fever, no fatigue and no weakness Respiratory: + dyspnea on exertion; no cough and no dyspnea Cardiovascular: no chest pain and no edema Gastrointestinal: no abdominal pain, no nausea, no vomiting, no constipation and no diarrhea/loose stools Physical Exam Constitutional: WD/WN, vitals as above no acute distress and not ill appearing Neck: trachea midline, no thyromegaly Respiratory: normal respiratory effort, lungs clear to auscultation Cardiovascular: RRR, no murmur, no edema Gastrointestinal (Abdomen): normal bowel sounds, soft, nontender, no hepatosplenomegaly Musculoskeletal: no cyanosis or clubbing, extremities motor strength 5/5 Skin: no rashes, warm and dry Neurologic: patellar DTR's 2+ bilat, sensation intact and PERRL, EOMI, accommodation nl, no face palsy, no dysarthria Psychiatric: A+Ox3, euthymic affect Lymphatic: no cervical or axillary lymphadenopathy Results & Data Results & Data ([facility]) Vital Signs (Past 12 Hours) Vital Signs Temp Pulse Pulse Pulse Resp BP Pulse Ox 08/02/20 07:45 36.5 C 76 18 L 18 139/94 93 08/02/20 03:23 36.3 C L 70 18 110/87 93 08/01/20 23:32 72 08/01/20 23:01 36.5 C 70 18 118/90 95 Laboratory Results Laboratory Results - last 24 hr 07/29/20 08/02/20 08/02/20 11:05 05:24 05:24 WBC 11.55 H RBC 3.88 L Hgb 11.8 L Hct 35.4 L MCV 91.2 MCH 30.4 MCHC 33.3 RDW Std Deviation 44.2 RDW Coeff of Jaye 13.4 Plt Count 265 MPV 10.6 H Absolute Nucleated RBC 0.02 H Nucleated RBC % (auto) 0.2 Sodium 136 Potassium 4.6 Chloride 110 H Carbon Dioxide 20 L Anion Gap 6.0 BUN 36 H Creatinine 1.06 Est Cr Clr Drug Dosing 89.0 Est GFR ( Amer) 88.6 Est GFR (Non-Af Amer) 76.4 BUN/Creatinine Ratio 34.0 H Glucose 105 H Calcium 8.3 L Phosphorus 2.8 Albumin 2.4 L BK Virus DNA Quant PCR <500 Virus Source Plasma Medications Administered Current Inpatient Medications Acetaminophen (Acetaminophen 325 Mg Tab) 650 mg PO Q4H PRN PRN Reason: Pain or Fever Stop: 08/28/20 19:33 Aspirin (Aspirin 81 Mg Ectab) 81 mg PO DAILY [facility] Stop: 08/29/20 08:59 Last Admin: 08/02/20 08:11 Dose: 81 mg Documented by: Calcium Carbonate (Calcium Carbonate 1250mg Tab) 1,250 mg PO DAILY [facility] Stop: 08/29/20 08:59 Last Admin: 08/02/20 08:12 Dose: 1,250 mg Documented by: Heparin Sodium (Porcine) (Heparin Sod 5,000 Unit/0.5 Ml Vial) 7,500 units SQ Q8 [facility] Stop: 08/28/20 20:59 Last Admin: 08/02/20 06:22 Dose: 7,500 units Documented by: Azithromycin 500 mg/ Dextrose 255 mls @ 125 mls/hr IV Q24H [facility]; Protocol Stop: 08/05/20 21:59 Last Infusion: 08/01/20 21:50 Dose: Infused Documented by: Dexamethasone Sodium Phosphate (6 mg/ Syringe) 1.5 mls @ 1 mls/min IV Q24H [facility] Stop: 08/09/20 11:59 Last Admin: 08/01/20 11:35 Dose: 1 mls/min Documented by: Cefepime HCl 2,000 mg/ Syringe 20 mls @ 5 mls/min IV Q8H [facility]; Protocol Stop: 08/05/20 15:59 Last Admin: 08/02/20 08:10 Dose: 5 mls/min Documented by: Levothyroxine Sodium ([facility]othyroxine S[facility] 125 [facility]g Tablet) [facility]: 08/29/20 06:29 Last Admin: 08/02/20 06:22 Dose: 125 mcg Documented by: Magnesium Oxide (Magnesium Oxide 400 Mg Tab) 400 mg PO DAILY [facility] Stop: 08/29/20 08:59 Last Admin: 08/02/20 08:19 Dose: 400 mg Documented by: Multivitamins/Minerals (Cerovite Adv Formula Tab) 1 tab PO DAILY [facility] Stop: 08/29/20 08:59 Last Admin: 08/02/20 08:12 Dose: 1 tab Documented by: Pantoprazole Sodium (Pantoprazole 40 Mg Tab) 40 mg PO DAILY [facility] Stop: 08/29/20 08:59 Last Admin: 08/02/20 08:13 Dose: 40 mg Documented by: Sodium Bicarbonate (Sodium Bicarbonate 650 Mg Tab) 650 mg PO BID [facility] Stop: 08/30/20 08:59 Last Admin: 08/02/20 08:13 Dose: 650 mg Documented by: Tacrolimus (Tacrolimus 1 Mg Cap) 1 mg PO Q12 [facility] Stop: 08/28/20 20:59 Last Admin: 08/02/20 08:12 Dose: 1 mg Documented by: Zinc Sulfate (Zinc Sulfate 220 Mg Capsule) 220 mg PO QAM [facility] Stop: 08/30/20 08:59 Last Admin: 08/02/20 08:13 Dose: 220 mg Documented by: PG Care Time/CCT Total # of Minutes Spent Total Time Spent with Patient: Total time spent is greater than 50% in coordination of care (as documented) at patient's floor/unit and/or counseling patient: Coding Level of Care Code 52944 Subseq Hosp Care Lvl 2 Diagnoses COVID-19 U07.1 Acute respiratory failure with hypoxemia J96.01 KRISSY (acute kidney injury) N17.9 Acute dehydration E86.0 Diarrhea R19.7 Diarrhea type: unspecified type Pneumonia J18.9 Pneumonia type: due to unspecified organism Laterality: bilateral Lung location: unspecified part of lung Hx of kidney transplant Z94.0 Hyperlipidemia E78.5 Hyperlipidemia type: unspecified Benign essential hypertension I10 Hypothyroidism E03.8 Hypothyroidism type: other Obesity E66.9 Obesity type: unspecified obesity type Obesity classification: adult class 2 (BMI 35 - 39.9) Renal transplant, status post Z94.0 (1) Diarrhea Diarrhea type: unspecified type Qualified Code(s): R19.7 - Diarrhea, unspecified (2) Pneumonia Pneumonia type: due to unspecified organism Laterality: bilateral Lung location: unspecified part of lung Qualified Code(s): J18.9 - Pneumonia, unspecified organism (3) Hyperlipidemia Hyperlipidemia type: unspecified Qualified Code(s): E78.5 - Hyperlipidemia, unspecified (4) Hypothyroidism Hypothyroidism type: other Qualified Code(s): E03.8 - Other specified hypothyroidism (5) Obesity Obesity type: unspecified obesity type Obesity classification: adult class 2 (BMI 35 - 39.9)
--- NOTE | 2020-08-02 10:32 | Nephrology Progress Note ---
Date of Service August 02, 2020 Assessment & Plan (1) KRISSY (acute kidney injury): 59 y o M with stage 3 a CKD s/p LURT due to FSGS 2009 at [facility]. Baseline Cr 1.4. Admitted with respiratory failure with COVID 19. Received Remdesivir and convalescent plasma therapy. On admission has KRISSY with cr 1.8, now resolved. renal function stable. -- Continue Tacrolimus (monitor level) 1 mg q.12 hours. Hold Mycophenolate and Prednisone while on Decadron therapy to reduce total state of immunosuppression. Resume prior dose of Mycophenolate and Prednisone when Decadron is tapered off. Trough Tacrolimus level was relatively low at 2.9. Azithromycin may reduce CNI metabolism and raise level. Continue current dose of Tacrolimus and repeat level on Monday. Target trough Tacrolimus level is 3.5 - 5.0. --maintain adequate hydration, avoid hypotension, nephrotoxic medications Will follow Admission and Anticipated Discharge Date Admission Date: July 29, 2020 Subjective Gumaro has been feeling better, Shortness of breath better at rest but continues to have increase work of breathing and cough with minimum exertion, no F/C. Appetite fair. BP acceptable. denies voiding symptoms. Results & Data ([facility]) Vital Signs (Past 12 Hours) Vital Signs Temp Pulse Pulse Pulse Resp BP Pulse Ox 08/02/20 07:45 36.5 C 76 18 L 18 139/94 93 08/02/20 03:23 36.3 C L 70 18 110/87 93 08/01/20 23:32 72 08/01/20 23:01 36.5 C 70 18 118/90 95 PG Care Time/CCT Total # of Minutes Spent Total Time Spent with Patient: Total time spent is greater than 50% in coordination of care (as documented) at patient's floor/unit and/or counseling patient: Coding Level of Care Code 90710 Subseq Hosp Care Lvl 2 Diagnoses KRISSY (acute kidney injury) N17.9
[2020-08-02] MEDS: DEXAMETHASONE SOD PHOSPHATE 6 MG in SYRINGE 0 ML IV SCH (12:08)
[2020-08-02] MEDS: AZITHROMYCIN 500 MG in DEXTROSE 5% 250 ML IV SCH (20:19)
[2020-08-03] MEDS: LEVOTHYROXINE SODIUM 125 MCG TABLET PO SCH (06:03)
[2020-08-03] MEDS: HEPARIN SOD 5,000 UNIT/0.5 ML VIAL SQ SCH ×3 (06:03→20:25)
--- NOTE | 2020-08-03 07:48 | Hospitalist Progress Note ---
Date of Service August 03, 2020 Assessment & Plan (1) COVID-19: Unfortunately, the patient's diagnosis is complicated by his underlying immunocompromise state secondary to renal transplantation in February 2010. Patient developed shortness of breath 48 hours prior to admission (07/29), he initially had diarrhea for a few days prior to admission Patient is hypoxic on presentation requiring supplemental oxygen with transient time of requiring BiPAP. His symptoms appear to be more exertional in nature stable today on 7L oxymask, continues to be comfortable, no signs of respiratory distress since admission treat with Decadron 6mg IV daily, LD 08/08 Remdesivir completed 5 days convalascent plasma given 07/30 Zinc 220mcg daily titrate oxygen as tolerated Cefepime and Zithromax for secondary bacterial coverage, completed 5 days of treatment on 08/02 (2) Acute respiratory failure with hypoxemia: patient is not in distress at all continue Oxymask for supplemental oxygen on 7L today (3) KRISSY (acute kidney injury): Cr is 1.06, electrolytes stable no fluids running metabolic acidosis with HCO3 of 20, continue on sodium bicarb (4) Acute dehydration: resolved with IV fluids (5) Diarrhea: due to COVID 19 infection solid BM for the past two days C diff is negative (6) Pneumonia: (7) Hx of kidney transplant: continue tacrolimus Cr is acceptable nephrology following recommend continuing tacrolimus holding mycophenolate while the patient is on dexamethasone (8) Hyperlipidemia: (9) Benign essential hypertension: Blood pressures have been stable the patient is been without symptoms (10) Hypothyroidism: (11) Obesity: (12) Renal transplant, status post: Patient's renal function has been stable nephrology is following and making recommendations regarding the patient's rejection medications Admission and Anticipated Discharge Date Admission Date: July 29, 2020 Subjective pt is still with mild shortness of breath, non productive cough, generalized weakness and achiness Review of Systems Review of Systems: Mild distress and fatigue no headache, blurry or double vision no speech or swallowing issues no chest pain, pressure or palpitations shortness of breath and breathlessness, non productive cough no abdominal pain, nausea or vomiting, diarrhea or constipation no dysuria, hematuria or frequency no focal joint pain mild peripheral swelling no back pain, CVA tenderness or radicular pain no bruising, bleeding or rashes no focal signs of weakness or numbness or altered sensation no complaints of anxiety or depression. Physical Exam Physical Exam: The patient appeared well nourished and normally developed. Vital signs as documented. Head exam is normocephalic atraumatic no scleral icterus Neck is without JVD, thyromegaly, or carotid bruits. Lungs are coarse bilateral with bilateral breath sounds no focal loss or wheeze Cardiac exam, Rhythm is regular.. No murmurs, rubs or gallops. Abdominal exam reveals normal bowel sounds, soft non tender, no masses Extremities are trace edematous and both pedal pulses are present Neurologic exam is alert and oriented, no focal loss of strength or sensation Skin is without bruises or rashes Psychologically is without concerns for anxiety or depression. Results & Data Results & Data ([facility]) Vital Signs (Past 12 Hours) Vital Signs Temp Pulse Resp BP Pulse Ox 08/03/20 04:17 97.7 F 73 20 126/92 97 08/03/20 00:40 97.7 F 72 18 140/96 95 08/02/20 20:23 98.1 F 86 129/95 94 PG Care Time/CCT Total # of Minutes Spent Total Time Spent with Patient: Total time spent is greater than 50% in coordination of care (as documented) at patient's floor/unit and/or counseling patient: Coding Level of Care Code 72153 Subseq Hosp Care Lvl 3 Diagnoses COVID-19 U07.1 Acute respiratory failure with hypoxemia J96.01 KRISSY (acute kidney injury) N17.9 Acute dehydration E86.0 Diarrhea R19.7 Diarrhea type: unspecified type Pneumonia J18.9 Laterality: bilateral Lung location: unspecified part of lung Pneumonia type: due to unspecified organism Hx of kidney transplant Z94.0 Hyperlipidemia E78.5 Hyperlipidemia type: unspecified Benign essential hypertension I10 Hypothyroidism E03.8 Hypothyroidism type: other Obesity E66.9 Obesity classification: adult class 2 (BMI 35 - 39.9) Obesity type: unspecified obesity type Renal transplant, status post Z94.0 (1) Diarrhea Diarrhea type: unspecified type Qualified Code(s): R19.7 - Diarrhea, unspecified (2) Hyperlipidemia Hyperlipidemia type: unspecified Qualified Code(s): E78.5 - Hyperlipidemia, unspecified (3) Hypothyroidism Hypothyroidism type: other Qualified Code(s): E03.8 - Other specified hypothyroidism (4) Pneumonia Laterality: bilateral Lung location: unspecified part of lung Pneumonia type: due to unspecified organism Qualified Code(s): J18.9 - Pneumonia, unspecified organism (5) Obesity Obesity classification: adult class 2 (BMI 35 - 39.9) Obesity type: unspecified obesity type
[2020-08-03] MEDS: CEROVITE ADV FORMULA TAB PO SCH (08:20)
[2020-08-03] MEDS: PANTOprazole 40 MG TAB PO SCH (08:20)
[2020-08-03] MEDS: SODIUM BICARBONATE 650 MG TAB PO SCH ×2 (08:20→20:25)
[2020-08-03] MEDS: ZINC SULFATE 220 MG CAPSULE PO SCH (08:20)
[2020-08-03] MEDS: ASPIRIN 81 MG ECTAB PO SCH (08:20)
[2020-08-03] MEDS: CALCIUM CARBONATE 1250MG TAB PO SCH (08:22)
--- NOTE | 2020-08-03 09:40 | Nephrology Progress Note ---
Date of Service August 03, 2020 Assessment & Plan (1) KRISSY (acute kidney injury): 59 y o M with stage 3 a CKD s/p LURT due to FSGS 2009 at [facility]. Baseline Cr 1.4. Admitted with respiratory failure with COVID 19. Received Remdesivir and convalescent plasma therapy. On admission has KRISSY with cr 1.8, now resolved. Renal function stable. -- Continue Tacrolimus (monitor level) 1 mg q.12 hours. Hold Mycophenolate and Prednisone while on Decadron therapy to reduce total state of immunosuppression. Resume prior dose of Mycophenolate and Prednisone when Decadron is tapered off. Trough Tacrolimus level was relatively low at 2.9, pending from this morning. Target trough Tacrolimus level is 3.5 - 5.0. --maintain adequate hydration, avoid hypotension, nephrotoxic medications Will follow Admission and Anticipated Discharge Date Admission Date: July 29, 2020 Subjective Gumaro has been clinically stable, Shortness of breath better at rest but continues to have increase work of breathing and cough with minimum exertion, no F/C. Appetite fair. BP acceptable. denies voiding symptoms. Renal function stable. Physical Exam Physical Exam: Vital signs stable, in person exam was not done. Results & Data ([facility]) Vital Signs (Past 12 Hours) Vital Signs Temp Pulse Pulse Resp BP Pulse Ox Pulse Ox 08/03/20 08:15 58 L 97 08/03/20 07:54 36.5 C 85 19 145/97 H 92 08/03/20 04:17 36.5 C 73 20 126/92 97 08/03/20 00:40 36.5 C 72 18 140/96 95 PG Care Time/CCT Total # of Minutes Spent Total Time Spent with Patient: Total time spent is greater than 50% in coordination of care (as documented) at patient's floor/unit and/or counseling patient: Coding Level of Care Code 01588 Subseq Hosp Care Lvl 2 Diagnoses KRISSY (acute kidney injury) N17.9
[2020-08-03] MEDS: MAGNESIUM OXIDE 400 MG TAB PO SCH (11:46)
[2020-08-03] MEDS: DEXAMETHASONE SOD PHOSPHATE 6 MG in SYRINGE 0 ML IV SCH (11:46)
[2020-08-03] MEDS: TACROLIMUS 1 MG CAP PO SCH ×2 (11:47→20:25)
[2020-08-04] MEDS: HEPARIN SOD 5,000 UNIT/0.5 ML VIAL SQ SCH ×3 (06:12→20:57)
[2020-08-04] MEDS: LEVOTHYROXINE SODIUM 125 MCG TABLET PO SCH (06:12)
[2020-08-04] MEDS: CEROVITE ADV FORMULA TAB PO SCH (09:06)
[2020-08-04] MEDS: CALCIUM CARBONATE 1250MG TAB PO SCH (09:06)
[2020-08-04] MEDS: SODIUM BICARBONATE 650 MG TAB PO SCH ×2 (09:07→20:55)
[2020-08-04] MEDS: TACROLIMUS 1 MG CAP PO SCH ×2 (09:07→20:54)
[2020-08-04] MEDS: ZINC SULFATE 220 MG CAPSULE PO SCH (09:07)
[2020-08-04] MEDS: ASPIRIN 81 MG ECTAB PO SCH (09:07)
[2020-08-04] MEDS: PANTOprazole 40 MG TAB PO SCH (09:07)
[2020-08-04] MEDS: MAGNESIUM OXIDE 400 MG TAB PO SCH (09:55)
--- NOTE | 2020-08-04 10:01 | Nephrology Progress Note ---
Date of Service August 04, 2020 Assessment & Plan (1) KRISSY (acute kidney injury): 59 y o M with stage 3 a CKD s/p LURT due to FSGS [address] [facility]. Baseline Cr 1.4. Admitted with respiratory failure with COVID 19. Received Remdesivir and convalescent plasma therapy. On admission has KRISSY with cr 1.8, now resolved. Renal function stable. -- Continue Tacrolimus (monitor level) 1 mg q.12 hours, , pending trough level, Mycophenolate and Prednisone on hold, resume prior dose of Mycophenolate and Prednisone when Decadron is tapered off. Target trough Tacrolimus level is 3.5 - 5.0. --maintain adequate hydration, avoid hypotension, nephrotoxic medications Will follow Admission and Anticipated Discharge Date Admission Date: July 29, 2020 Subjective Gumaro has been clinically stable, Shortness of breath better at rest but continues to have increase work of breathing and cough with minimum exertion, no F/C. Appetite fair. BP acceptable. denies voiding symptoms. Renal function stable. Physical Exam Physical Exam: Vital signs stable, in person exam was not done. Results & Data ([facility]) Vital Signs (Past 12 Hours) Vital Signs Temp Pulse Resp BP Pulse Ox 08/04/20 08:30 36.5 C 68 18 150/95 H 96 08/04/20 03:21 37.0 C 77 19 136/86 96 08/03/20 23:27 37.0 C 72 19 146/71 H 96 PG Care Time/CCT Total # of Minutes Spent Total Time Spent with Patient: Total time spent is greater than 50% in coordination of care (as documented) at patient's floor/unit and/or counseling patient: Coding Level of Care Code 34524 Subseq Hosp Care Lvl 2 Diagnoses KRISSY (acute kidney injury) N17.9
[2020-08-04] MEDS: DEXAMETHASONE SOD PHOSPHATE 6 MG in SYRINGE 0 ML IV SCH (12:24)
--- NOTE | 2020-08-04 14:59 | Hospitalist Progress Note ---
Date of Service August 04, 2020 Assessment & Plan (1) COVID-19: Unfortunately, the patient's diagnosis is complicated by his underlying immunocompromise state secondary to renal transplantation in February 2010. Patient developed shortness of breath 48 hours prior to admission (07/29), he initially had diarrhea for a few days prior to admission Patient is hypoxic on presentation requiring supplemental oxygen with transient time of requiring BiPAP. His symptoms appear to be more exertional in nature stable today on 7L oxymask, continues to be comfortable, no signs of respiratory distress since admission treat with Decadron 6mg IV daily, LD 08/08 Remdesivir completed 5 days convalascent plasma given 07/30 Zinc 220mcg daily titrate oxygen has been lessening Cefepime and Zithromax for secondary bacterial coverage, completed 5 days of treatment on 08/02 (2) Acute respiratory failure with hypoxemia: patient is not in distress at all continue Oxymask for supplemental oxygen on 2L today (3) KRISSY (acute kidney injury): Cr is 1.06, electrolytes stable no fluids running metabolic acidosis with HCO3 of 20, continue on sodium bicarb (4) Acute dehydration: resolved with IV fluids (5) Diarrhea: due to COVID 19 infection solid BM for the past two days C diff is negative (6) Pneumonia: (7) Hx of kidney transplant: continue tacrolimus Cr is acceptable nephrology following recommend continuing tacrolimus holding mycophenolate while the patient is on dexamethasone (8) Hyperlipidemia: (9) Benign essential hypertension: Blood pressures have been stable the patient is been without symptoms (10) Hypothyroidism: (11) Obesity: (12) Renal transplant, status post: Patient's renal function has been stable nephrology is following and making recommendations regarding the patient's rejection medications Admission and Anticipated Discharge Date Admission Date: July 29, 2020 Subjective pt continues to improve, he is on less oxygen supplementation, still only with occasional cough. Review of Systems Review of Systems: Mild distress and fatigue no headache, blurry or double vision no speech or swallowing issues no chest pain, pressure or palpitations shortness of breath and breathlessness, non productive cough no abdominal pain, nausea or vomiting, diarrhea or constipation no dysuria, hematuria or frequency no focal joint pain mild peripheral swelling no back pain, CVA tenderness or radicular pain no bruising, bleeding or rashes no focal signs of weakness or numbness or altered sensation no complaints of anxiety or depression. Physical Exam Physical Exam: The patient appeared well nourished and normally developed. Vital signs as documented. Head exam is normocephalic atraumatic no scleral icterus Neck is without JVD, thyromegaly, or carotid bruits. Lungs are coarse bilateral with bilateral breath sounds no focal loss or wheeze Cardiac exam, Rhythm is regular.. No murmurs, rubs or gallops. Abdominal exam reveals normal bowel sounds, soft non tender, no masses Extremities are trace edematous and both pedal pulses are present Neurologic exam is alert and oriented, no focal loss of strength or sensation Skin is without bruises or rashes Psychologically is without concerns for anxiety or depression. Results & Data Results & Data ([facility]) Vital Signs (Past 12 Hours) Vital Signs Temp Pulse Pulse Resp BP Pulse Ox Pulse Ox 08/04/20 11:54 98.2 F 66 19 121/80 93 08/04/20 08:30 97.7 F 68 18 150/95 H 96 08/04/20 08:00 57 L 96 08/04/20 03:21 98.6 F 77 19 136/86 96 PG Care Time/CCT Total # of Minutes Spent Total Time Spent with Patient: Total time spent is greater than 50% in import coordinator rdination of care (as documented) at patient's floor/unit and/or counseling patient: Coding Level of Care Code 22476 Subseq Hosp Care Lvl 3 Diagnoses COVID-19 U07.1 Acute respiratory failure with hypoxemia J96.01 KRISSY (acute kidney injury) N17.9 Acute dehydration E86.0 Diarrhea R19.7 Diarrhea type: unspecified type Pneumonia J18.9 Pneumonia type: due to unspecified organism Laterality: bilateral Lung location: unspecified part of lung Hx of kidney transplant Z94.0 Hyperlipidemia E78.5 Hyperlipidemia type: unspecified Benign essential hypertension I10 Hypothyroidism E03.8 Hypothyroidism type: other Obesity E66.9 Obesity type: unspecified obesity type Obesity classification: adult class 2 (BMI 35 - 39.9) Renal transplant, status post Z94.0 (1) Diarrhea Diarrhea type: unspecified type Qualified Code(s): R19.7 - Diarrhea, unspecified (2) Pneumonia Pneumonia type: due to unspecified organism Laterality: bilateral Lung location: unspecified part of lung Qualified Code(s): J18.9 - Pneumonia, unspecified organism (3) Hyperlipidemia Hyperlipidemia type: unspecified Qualified Code(s): E78.5 - Hyperlipidemia, unspecified (4) Hypothyroidism Hypothyroidism type: other Qualified Code(s): E03.8 - Other specified hypothyroidism (5) Obesity Obesity type: unspecified obesity type Obesity classification: adult class 2 (BMI 35 - 39.9)
[2020-08-05] MEDS: LEVOTHYROXINE SODIUM 125 MCG TABLET PO SCH (06:19)
[2020-08-05] MEDS: HEPARIN SOD 5,000 UNIT/0.5 ML VIAL SQ SCH ×3 (06:19→21:26)
[2020-08-05] MEDS: TACROLIMUS 1 MG CAP PO SCH ×2 (07:47→21:26)
[2020-08-05] MEDS: SODIUM BICARBONATE 650 MG TAB PO SCH ×2 (07:47→21:26)
[2020-08-05] MEDS: ZINC SULFATE 220 MG CAPSULE PO SCH (07:48)
[2020-08-05] MEDS: ASPIRIN 81 MG ECTAB PO SCH (07:48)
[2020-08-05] MEDS: CEROVITE ADV FORMULA TAB PO SCH (07:48)
[2020-08-05] MEDS: PANTOprazole 40 MG TAB PO SCH (07:49)
[2020-08-05] MEDS: MAGNESIUM OXIDE 400 MG TAB PO SCH (07:53)
[2020-08-05] MEDS: CALCIUM CARBONATE 1250MG TAB PO SCH (09:34)
[2020-08-05] MEDS: DEXAMETHASONE SOD PHOSPHATE 6 MG in SYRINGE 0 ML IV SCH (10:31)
--- NOTE | 2020-08-05 11:54 | Nephrology Progress Note ---
Date of Service August 05, 2020 Assessment & Plan (1) KRISSY (acute kidney injury): 59 y o M with stage 3 a CKD s/p LURT due to FSGS 2009 at [facility]. Baseline Cr 1.4. Admitted with respiratory failure with COVID 19. Received Remdesivir and convalescent plasma therapy. On admission has KRISSY with cr 1.8, now resolved. Renal function stable. -- Continue Tacrolimus (monitor level) 1 mg q.12 hours, , pending trough level, Mycophenolate and Prednisone on hold, resume prior dose of Mycophenolate and Prednisone when Decadron is tapered off. Target trough Tacrolimus level is 3.5 - 5.0. --maintain adequate hydration, avoid hypotension, nephrotoxic medications Will follow Admission and Anticipated Discharge Date Admission Date: July 29, 2020 Subjective Gumaro has been clinically stable, Shortness of breath and cough improved and oxygen requirement is less, no F/C. Appetite fair. BP acceptable. denies voiding symptoms. Renal function stable. Physical Exam Physical Exam: Vital signs stable, in person exam was not done. Results & Data ([facility]) Vital Signs (Past 12 Hours) Vital Signs Temp Pulse Pulse Resp BP Pulse Ox Pulse Ox 08/05/20 08:00 79 94 08/05/20 07:46 36.4 C 84 18 100/82 94 08/05/20 04:32 36.5 C 65 18 160/97 H 95 08/05/20 00:39 36.5 C 64 16 139/82 95 08/04/20 23:56 63 PG Care Time/CCT Total # of Minutes Spent Total Time Spent with Patient: Total time spent is greater than 50% in coordination of care (as documented) at patient's floor/unit and/or counseling patient: Coding Level of Care Code 55639 Subseq Hosp Care Lvl 2 Diagnoses KRISSY (acute kidney injury) N17.9
--- NOTE | 2020-08-05 17:58 | Hospitalist Progress Note ---
Date of Service August 05, 2020 Assessment & Plan (1) COVID-19: Unfortunately, the patient's diagnosis is complicated by his underlying immunocompromise state secondary to renal transplantation in February 2010. Patient developed shortness of breath 48 hours prior to admission (07/29), he initially had diarrhea for a few days prior to admission Patient is hypoxic on presentation requiring supplemental oxygen with transient time of requiring BiPAP. His symptoms appear to be more exertional in nature stable today on 7L oxymask, continues to be comfortable, no signs of respiratory distress since admission treat with Decadron 6mg IV daily, LD 08/08 Remdesivir completed 5 days convalascent plasma given 07/30 Zinc 220mcg daily titrate oxygen has been lessening however just standing up 04/04 he became hypoxic into the low 80s and tachycardic to the 1 teens Cefepime and Zithromax for secondary bacterial coverage, completed 5 days of treatment on 08/02 (2) Acute respiratory failure with hypoxemia: patient is not in distress at all continue Oxymask for supplemental oxygen on 2L today does require more with minimal exertion (3) KRISSY (acute kidney injury): Cr is 1.06, electrolytes stable no fluids running metabolic acidosis with HCO3 of 20, continue on sodium bicarb (4) Acute dehydration: resolved with IV fluids (5) Diarrhea: due to COVID 19 infection solid BM for the past two days C diff is negative (6) Pneumonia: (7) Hx of kidney transplant: continue tacrolimus Cr is acceptable nephrology following recommend continuing tacrolimus holding mycophenolate while the patient is on dexamethasone (8) Hyperlipidemia: (9) Benign essential hypertension: Blood pressures have been stable the patient is been without symptoms (10) Hypothyroidism: (11) Obesity: (12) Renal transplant, status post: Patient's renal function has been stable nephrology is following and making recommendations regarding the patient's rejection medications Admission and Anticipated Discharge Date Admission Date: July 29, 2020 Subjective Patient was stable resolved resting in bed but when attempting to have him stand up or ambulate he became profoundly hypoxic and tachycardic. This prompted a consideration of delay of his discharge for another day as he is attempting to not have home oxygen available. He otherwise has no complaints or problems we did discuss his discharge plans Review of Systems Review of Systems: Mild distress and fatigue no headache, blurry or double vision no speech or swallowing issues no chest pain, pressure or palpitations shortness of breath and breathlessness, non productive cough no abdominal pain, nausea or vomiting, diarrhea or constipation no dysuria, hematuria or frequency no focal joint pain mild peripheral swelling no back pain, CVA tenderness or radicular pain no bruising, bleeding or rashes no focal signs of weakness or numbness or altered sensation no complaints of anxiety or depression. Physical Exam Physical Exam: The patient appeared well nourished and normally developed. Vital signs as documented. Head exam is normocephalic atraumatic no scleral icterus Neck is without JVD, thyromegaly, or carotid bruits. Lungs are coarse bilateral with bilateral breath sounds no focal loss or wheeze Cardiac exam, Rhythm is regular.. No murmurs, rubs or gallops. Abdominal exam reveals normal bowel sounds, soft non tender, no masses Extremities are trace edematous and both pedal pulses are present Neurologic exam is alert and oriented, no focal loss of strength or sensation Skin is without bruises or rashes Psychologically is without concerns for anxiety or depression. Results & Data Results & Data ([facility]) Vital Signs (Past 12 Hours) Vital Signs Temp Pulse Pulse Resp BP Pulse Ox Pulse Ox 08/05/20 16:00 100 H 08/05/20 15:30 97.9 F 74 20 140/84 95 08/05/20 12:15 97.7 F 67 20 125/87 95 08/05/20 08:00 79 94 08/05/20 07:46 97.6 F 84 18 100/82 94 PG Care Time/CCT Total # of Minutes Spent Total Time Spent with Patient: Total time spent is greater than 50% in coordination of care (as documented) at patient's floor/unit and/or counseling patient: Coding Level of Care Code 12761 Subseq Hosp Care Lvl 3 Diagnoses COVID-19 U07.1 Acute respiratory failure with hypoxemia J96.01 KRISSY (acute kidney injury) N17.9 Acute dehydration E86.0 Diarrhea R19.7 Diarrhea type: unspecified type Pneumonia J18.9 Pneumonia type: due to unspecified organism Laterality: bilateral Lung location: unspecified part of lung Hx of kidney transplant Z94.0 Hyperlipidemia E78.5 Hyperlipidemia type: unspecified Benign essential hypertension I10 Hypothyroidism E03.8 Hypothyroidism type: other Obesity E66.9 Obesity type: unspecified obesity type Obesity classification: adult class 2 (BMI 35 - 39.9) Renal transplant, status post Z94.0 (1) Diarrhea Diarrhea type: unspecified type Qualified Code(s): R19.7 - Diarrhea, unspecified (2) Pneumonia Pneumonia type: due to unspecified organism Laterality: bilateral Lung location: unspecified part of lung Qualified Code(s): J18.9 - Pneumonia, unspecified organism (3) Hyperlipidemia Hyperlipidemia type: unspecified Qualified Code(s): E78.5 - Hyperlipidemia, unspecified (4) Hypothyroidism Hypothyroidism type: other Qualified Code(s): E03.8 - Other specified hypothyroidism (5) Obesity Obesity type: unspecified obesity type Obesity classification: adult class 2 (BMI 35 - 39.9)
[2020-08-06] MEDS: HEPARIN SOD 5,000 UNIT/0.5 ML VIAL SQ SCH ×3 (06:12→21:26)
[2020-08-06] MEDS: LEVOTHYROXINE SODIUM 125 MCG TABLET PO SCH (06:13)
[2020-08-06 07:08] LABS: Albumin Level 2.5 gm/dl (3.4-5.0); BUN Creatinine Ratio 34.2 (10-20); Calcium 9.2 mg/dl (8.5-10.1); Creatinine Clr Calc Pharmacy 96.6 ml/min; Est GFR (African American) 98.6; Est GFR (Non-African American) 85.1; Phosphorus 3.6 mg/dl (2.5-4.9); Potassium 4.6 mmol/L (3.5-5.1)
[2020-08-06] MEDS: TACROLIMUS 1 MG CAP PO SCH ×2 (08:52→20:03)
[2020-08-06] MEDS: SODIUM BICARBONATE 650 MG TAB PO SCH ×2 (08:53→20:03)
[2020-08-06] MEDS: ASPIRIN 81 MG ECTAB PO SCH (08:54)
[2020-08-06] MEDS: ZINC SULFATE 220 MG CAPSULE PO SCH (08:54)
[2020-08-06] MEDS: CALCIUM CARBONATE 1250MG TAB PO SCH (08:54)
[2020-08-06] MEDS: CEROVITE ADV FORMULA TAB PO SCH (08:54)
[2020-08-06] MEDS: PANTOprazole 40 MG TAB PO SCH (08:54)
[2020-08-06] MEDS: MAGNESIUM OXIDE 400 MG TAB PO SCH (10:00)
[2020-08-06] MEDS: DEXAMETHASONE SOD PHOSPHATE 6 MG in SYRINGE 0 ML IV SCH (10:01)
--- NOTE | 2020-08-06 10:33 | Nephrology Progress Note ---
Date of Service August 06, 2020 Assessment & Plan (1) KRISSY (acute kidney injury): 59 y o M with stage 3 a CKD s/p LURT due to FSGS [address] [facility]. Baseline Cr 1.4. Admitted with respiratory failure with COVID 19. Received Remdesivir and convalescent plasma therapy. On admission has KRISSY with cr 1.8, now resolved. Renal function stable. -- Continue Tacrolimus 1 mg q.12 hours, trough 3.8, at goal. Mycophenolate and Prednisone on hold, resume prior dose of Mycophenolate and Prednisone when Decadron is tapered off. Target trough Tacrolimus level is 3.5 - 5.0. --maintain adequate hydration, avoid hypotension, nephrotoxic medications Will sign off but available as needed. Admission and Anticipated Discharge Date Admission Date: July 29, 2020 Subjective Gumaro has been clinically stable, Shortness of breath and cough improved and oxygen requirement is less, no F/C. Appetite fair. BP acceptable. denies voiding symptoms. Renal function stable. Prograf trough level within goal Physical Exam Physical Exam: Vital signs stable, in person exam was not done. Results & Data ([facility]) Vital Signs (Past 12 Hours) Vital Signs Temp Pulse Pulse Resp BP Pulse Ox Pulse Ox 08/06/20 08:28 37.0 C 79 18 113/77 95 08/06/20 08:01 65 95 08/06/20 04:00 36.5 C 58 L 18 139/80 95 08/05/20 23:59 64 08/05/20 23:07 36.1 C L 68 16 134/88 94 PG Care Time/CCT Total # of Minutes Spent Total Time Spent with Patient: Total time spent is greater than 50% in coordination of care (as documented) at patient's floor/unit and/or counseling patient: Coding Level of Care Code 24235 Subseq Hosp Care Lvl 2 Diagnoses KRISSY (acute kidney injury) N17.9
--- NOTE | 2020-08-06 11:03 | XRay Report ---
XR chest 1V portable CLINICAL HISTORY: persistent hypoxia COMPARISON STUDY: Chest radiograph July 29, 2020. FINDINGS: Mild cardiomegaly is noted. There is no evidence for pulmonary edema. No pneumothorax or pl eural effusion is noted. Multifocal bilateral airspace opacities are noted. Right lung airspace opaci ties have slightly progressed. Left midlung opacity is slightly improved. There are old bilateral rib fractures. There is a possible hiatal hernia. Old left clavicular fracture is incidentally noted. IMPRESSION: Minimal interval change in multifocal bilateral airspace opacities which favor an infecti ous process. Continued radiographic follow-up to ensure resolution is recommended. ACT 112: Negative or not required by law. Electronically signed by: Martín Grossman M.D. 08/06/2020 11:01 AM
[2020-08-06] MEDS ORDERED: FUROSEMIDE 20 MG in SYRINGE 0 ML IV ONE (16:45)
[2020-08-06] MEDS ORDERED: AZITHROMYCIN 500 MG in DEXTROSE 5% 250 ML IV ONE (16:45)
--- NOTE | 2020-08-06 18:15 | Hospitalist Progress Note ---
Date of Service August 06, 2020 Assessment & Plan (1) COVID-19: Unfortunately, the patient's diagnosis is complicated by his underlying immunocompromise state secondary to renal transplantation in February 2010. Patient developed shortness of breath 48 hours prior to admission (07/29), he initially had diarrhea for a few days prior to admission Patient is hypoxic on presentation requiring supplemental oxygen with transient time of requiring BiPAP. Patient with persistent hypoxia requiring 2 L minimal exertion makes his sats go down to 87. He also becomes tachycardic. We will try 1 dose of Lasix and adding azithromycin for atypicals secondary infections he does not improve by 08/07 we will likely have him home with oxygen therapy treated with Decadron 6mg IV daily, LD 08/08 Remdesivir completed 5 days convalascent plasma given 07/30 Zinc 220mcg daily titrate oxygen has been lessening however just standing up 04/04 he became hypoxic into the low 80s and tachycardic to the 1 teens Cefepime and Zithromax for secondary bacterial coverage, completed 5 days of treatment on 08/02 restarted Zithromax on 08/06/2020 (2) Acute respiratory failure with hypoxemia: patient is not in distress at all continue Oxymask for supplemental oxygen Continue hypoxia even which is standing his room (3) KRISSY (acute kidney injury): Cr is 1.06, electrolytes stable give 1 dose of Lasix 20 on the evening of 08/06/2020 no fluids running metabolic acidosis with HCO3 of 20, continue on sodium bicarb (4) Acute dehydration: resolved with IV fluids (5) Diarrhea: due to COVID 19 infection solid BM C diff is negative (6) Pneumonia: (7) Hx of kidney transplant: continue tacrolimus Cr is acceptable nephrology following recommend continuing tacrolimus holding mycophenolate while the patient is on dexamethasone (8) Hyperlipidemia: (9) Benign essential hypertension: Blood pressures have been stable the patient is been without symptoms (10) Hypothyroidism: (11) Obesity: (12) Renal transplant, status post: Patient's renal function has been stable nephrology is following and making recommendations regarding the patient's rejection medications Admission and Anticipated Discharge Date Admission Date: July 29, 2020 Rocio Gumaro has been clinically stable, patient still with persistent hypoxia with minimal exertion. Chest x-ray performed on 08/06 does not show significant improvement or worsening but he still has bilateral groundglass infiltrates Review of Systems Review of Systems: Mild distress and fatigue no headache, blurry or double vision no speech or swallowing issues no chest pain, pressure or palpitations shortness of breath and breathlessness, non productive cough no abdominal pain, nausea or vomiting, diarrhea or constipation no dysuria, hematuria or frequency no focal joint pain mild peripheral swelling no back pain, CVA tenderness or radicular pain no bruising, bleeding or rashes no focal signs of weakness or numbness or altered sensation no complaints of anxiety or depression. Physical Exam Physical Exam: The patient appeared well nourished and normally developed. Vital signs as documented. Head exam is normocephalic atraumatic no scleral icterus Neck is without JVD, thyromegaly, or carotid bruits. Lungs are coarse bilateral with bilateral breath sounds no focal loss or wheeze Cardiac exam, Rhythm is regular.. No murmurs, rubs or gallops. Abdominal exam reveals normal bowel sounds, soft non tender, no masses Extremities are trace edematous and both pedal pulses are present Neurologic exam is alert and oriented, no focal loss of strength or sensation Skin is without bruises or rashes Psychologically is without concerns for anxiety or depression. Results & Data Results & Data ([facility]) Vital Signs (Past 12 Hours) Vital Signs Temp Pulse Pulse Resp BP Pulse Ox Pulse Ox 08/06/20 12:03 97.7 F 72 20 119/71 95 08/06/20 08:28 98.6 F 79 18 113/77 95 08/06/20 08:01 65 95 PG Care Time/CCT Total # of Minutes Spent Total Time Spent with Patient: Total time spent is greater than 50% in coordination of care (as documented) at patient's floor/unit and/or counseling patient: Coding Level of Care Code 95936 Subseq Hosp Care Lvl 2 Diagnoses COVID-19 U07.1 Acute respiratory failure with hypoxemia J96.01 KRISSY (acute kidney injury) N17.9 Acute dehydration E86.0 Diarrhea R19.7 Diarrhea type: unspecified type Pneumonia J18.9 Pneumonia type: due to unspecified organism Laterality: bilateral Lung location: unspecified part of lung Hx of kidney transplant Z94.0 Hyperlipidemia E78.5 Hyperlipidemia type: unspecified Benign essential hypertension I10 Hypothyroidism E03.8 Hypothyroidism type: other Obesity E66.9 Obesity type: unspecified obesity type Obesity classification: adult class 2 (BMI 35 - 39.9) Renal transplant, status post Z94.0 (1) Diarrhea Diarrhea type: unspecified type Qualified Code(s): R19.7 - Diarrhea, unspecified (2) Pneumonia Pneumonia type: due to unspecified organism Laterality: bilateral Lung location: unspecified part of lung Qualified Code(s): J18.9 - Pneumonia, unspecified organism (3) Hyperlipidemia Hyperlipidemia type: unspecified Qualified Code(s): E78.5 - Hyperlipidemia, unspecified (4) Hypothyroidism Hypothyroidism type: other Qualified Code(s): E03.8 - Other specified hypothyroidism (5) Obesity Obesity type: unspecified obesity type Obesity classification: adult class 2 (BMI 35 - 39.9)
[2020-08-07] MEDS: HEPARIN SOD 5,000 UNIT/0.5 ML VIAL SQ SCH ×3 (05:47→21:27)
[2020-08-07] MEDS: LEVOTHYROXINE SODIUM 125 MCG TABLET PO SCH (05:47)
[2020-08-07] MEDS ORDERED: AZITHROMYCIN 250 MG TAB PO SCH (09:00)
[2020-08-07] MEDS: ASPIRIN 81 MG ECTAB PO SCH (09:32)
[2020-08-07] MEDS: CEROVITE ADV FORMULA TAB PO SCH (09:32)
[2020-08-07] MEDS: TACROLIMUS 1 MG CAP PO SCH ×2 (09:33→21:28)
[2020-08-07] MEDS: CALCIUM CARBONATE 1250MG TAB PO SCH (09:33)
[2020-08-07] MEDS: ZINC SULFATE 220 MG CAPSULE PO SCH (09:33)
[2020-08-07] MEDS: PANTOprazole 40 MG TAB PO SCH (09:33)
[2020-08-07] MEDS: DEXAMETHASONE SOD PHOSPHATE 6 MG in SYRINGE 0 ML IV SCH (09:34)
[2020-08-07] MEDS: MAGNESIUM OXIDE 400 MG TAB PO SCH (09:38)
[2020-08-07 10:17] LABS: Hematocrit (blood only) 43.5 % (42-52); Hemoglobin 14.5 g/dL (14.0-18.0); Mean Corpuscular Hemoglobin 31.3 pg (25-34); Mean Corpuscular Hgb Conc 33.3 g/dL (32-36); Mean Corpuscular Volume 93.8 fL (80-100); Mean Platelet Volume 10.7 fL (7.4-10.4); Nucleated RBC # (auto) 0.04 K/uL (0-0); Nucleated RBC % (auto) 0.3 %; Platelet Count 338 K/uL (130-400); RDW Coefficient of Variation 14.1 % (11.5-14.5); RDW Standard Deviation 47.3 fL (36.4-46.3); Red Blood Count 4.64 M/uL (4.7-6.1); White Blood Count 14.41 K/uL (4.8-10.8)
[2020-08-07 10:26] LABS: D Dimer 1260 ug/L FEU (0-500)
[2020-08-07 10:40] LABS: Albumin Level 2.9 gm/dl (3.4-5.0); BUN Creatinine Ratio 31.3 (10-20); Calcium 9.7 mg/dl (8.5-10.1); Creatinine Clr Calc Pharmacy 73.6 ml/min; Est GFR (African American) 71.9; Potassium 3.7 mmol/L (3.5-5.1)
[2020-08-07 10:44] LABS: Albumin Globulin Ratio 0.6 (0.9-2); Bilirubin,Total 0.5 mg/dl (0.2-1); Globulin 4.8 gm/dl (2.5-4.0); Total Protein 7.7 gm/dl (6.4-8.2)
--- NOTE | 2020-08-07 18:09 | Hospitalist Progress Note ---
Date of Service August 07, 2020 Assessment & Plan (1) COVID-19: Unfortunately, the patient's diagnosis is complicated by his underlying immunocompromise state secondary to renal transplantation in February 2010. Patient developed shortness of breath 48 hours prior to admission (07/29), he initially had diarrhea for a few days prior to admission Patient is hypoxic on presentation requiring supplemental oxygen with transient time of requiring BiPAP. Patient with persistent hypoxia now with increasing oxygen requirements, will continue to try to keep a negative fluid balance treated with Decadron 6mg IV daily, LD 08/08 Remdesivir completed 5 days convalascent plasma given 07/30 Zinc 220mcg daily Cefepime and Zithromax for secondary bacterial coverage, completed 5 days of treatment on 08/02 restarted Zithromax on 08/06/2020 (2) Acute respiratory failure with hypoxemia: patient is in some increasing distress continue Oxymask for supplemental oxygen (3) KRISSY (acute kidney injury): Cr is 1.06, electrolytes stable give 1 dose of Lasix 20 on the evening of 08/06/2020 no fluids running metabolic acidosis with HCO3 of 20, continue on sodium bicarb (4) Acute dehydration: resolved with IV fluids, now cautious diuresis (5) Diarrhea: due to COVID 19 infection solid BM C diff is negative (6) Pneumonia: (7) Hx of kidney transplant: continue tacrolimus Cr is acceptable nephrology following recommend continuing tacrolimus holding mycophenolate while the patient is on dexamethasone (8) Hyperlipidemia: (9) Benign essential hypertension: Blood pressures have been stable the patient is been without symptoms (10) Hypothyroidism: (11) Obesity: (12) Renal transplant, status post: Patient's renal function has been stable nephrology is following and making recommendations regarding the patient's rejection medications Admission and Anticipated Discharge Date Admission Date: July 29, 2020 Rocio Naik has been clinically stable, however he has had progressive hypoxia as noted on 2 step home oxygen test. he maybe entering the later cytokine storm of Covid Chest x-ray performed on 08/06 does not show significant improvement or worsening but he still has bilateral ground glass infiltrates Review of Systems Review of Systems: Mild distress and fatigue no headache, blurry or double vision no speech or swallowing issues no chest pain, pressure or palpitations shortness of breath and breathlessness, non productive cough no abdominal pain, nausea or vomiting, diarrhea or constipation no dysuria, hematuria or frequency no focal joint pain mild peripheral swelling no back pain, CVA tenderness or radicular pain no bruising, bleeding or rashes no focal signs of weakness or numbness or altered sensation no complaints of anxiety or depression. Respiratory: + dyspnea on exertion; no cough and no dyspnea Physical Exam Physical Exam: The patient appeared well nourished and normally developed. Vital signs as documented. Head exam is normocephalic atraumatic no scleral icterus Neck is without JVD, thyromegaly, or carotid bruits. Lungs are coarse bilateral with bilateral breath sounds no focal loss or wheeze Cardiac exam, Rhythm is regular.. No murmurs, rubs or gallops. Abdominal exam reveals normal bowel sounds, soft non tender, no masses Extremities are trace edematous and both pedal pulses are present Neurologic exam is alert and oriented, no focal loss of strength or sensation Skin is without bruises or rashes Psychologically is without concerns for anxiety or depression. Results & Data Results & Data ([facility]) Vital Signs (Past 12 Hours) Vital Signs Temp Pulse Pulse Pulse Pulse Pulse Pulse 08/07/20 15:43 98.2 F 69 08/07/20 15:18 98.4 F 67 08/07/20 10:54 97.7 F 80 08/07/20 08:50 103 H 103 H 122 H 132 H 116 H 08/07/20 07:06 97.9 F 64 Pulse Pulse Resp Resp Resp Resp Resp 08/07/20 15:43 08/07/20 15:18 20 08/07/20 10:54 18 08/07/20 08:50 110 H 101 H 18 18 26 H 30 H 08/07/20 07:06 19 Resp Resp Resp BP Pulse Ox Pulse Ox Pulse Ox 08/07/20 15:43 125/77 96 08/07/20 15:18 111/79 96 08/07/20 10:54 116/82 97 08/07/20 08:50 24 20 18 85 L 90 08/07/20 07:06 129/89 97 Pulse Ox Pulse Ox Pulse Ox Pulse Ox Pulse Ox 08/07/20 15:43 08/07/20 15:18 08/07/20 10:54 08/07/20 08:50 82 L 83 L 82 L 89 L 84 L 08/07/20 07:06 PG Care Time/CCT Total # of Minutes Spent Total Time Spent with Patient: Total time spent is greater than 50% in coordination of care (as documented) at patient's floor/unit and/or counseling patient: Coding Level of Care Code 99053 Subseq Hosp Care Lvl 3 Diagnoses COVID-19 U07.1 Acute respiratory failure with hypoxemia J96.01 KRISSY (acute kidney injury) N17.9 Acute dehydration E86.0 Diarrhea R19.7 Diarrhea type: unspecified type Pneumonia J18.9 Laterality: bilateral Lung location: unspecified part of lung Pneumonia type: due to unspecified organism Hx of kidney transplant Z94.0 Hyperlipidemia E78.5 Hyperlipidemia type: unspecified Benign essential hypertension I10 Hypothyroidism E03.8 Hypothyroidism type: other Obesity E66.9 Obesity classification: adult class 2 (BMI 35 - 39.9) Obesity type: unspecified obesity type Renal transplant, status post Z94.0 (1) Diarrhea Diarrhea type: unspecified type Qualified Code(s): R19.7 - Diarrhea, unspecified (2) Hyperlipidemia Hyperlipidemia type: unspecified Qualified Code(s): E78.5 - Hyperlipidemia, unspecified (3) Hypothyroidism Hypothyroidism type: other Qualified Code(s): E03.8 - Other specified hypothyroidism (4) Pneumonia Laterality: bilateral Lung location: unspecified part of lung Pneumonia type: due to unspecified organism Qualified Code(s): J18.9 - Pneumonia, unspecified organism (5) Obesity Obesity classification: adult class 2 (BMI 35 - 39.9) Obesity type: unspecified obesity type
[2020-08-08] MEDS: LEVOTHYROXINE SODIUM 125 MCG TABLET PO SCH (06:58)
[2020-08-08] MEDS: HEPARIN SOD 5,000 UNIT/0.5 ML VIAL SQ SCH ×3 (07:00→21:00)
[2020-08-08] MEDS: ASPIRIN 81 MG ECTAB PO SCH (09:26)
[2020-08-08] MEDS: TACROLIMUS 1 MG CAP PO SCH ×2 (09:27→21:00)
[2020-08-08] MEDS: CALCIUM CARBONATE 1250MG TAB PO SCH (09:27)
[2020-08-08] MEDS: CEROVITE ADV FORMULA TAB PO SCH (09:27)
[2020-08-08] MEDS: DEXAMETHASONE SOD PHOSPHATE 6 MG in SYRINGE 0 ML IV SCH (09:28)
[2020-08-08] MEDS: PANTOprazole 40 MG TAB PO SCH (09:28)
[2020-08-08] MEDS: MAGNESIUM OXIDE 400 MG TAB PO SCH (09:31)
--- NOTE | 2020-08-08 17:14 | Hospitalist Progress Note ---
Date of Service August 08, 2020 Assessment & Plan (1) COVID-19: Unfortunately, the patient's diagnosis is complicated by his underlying immunocompromise state secondary to renal transplantation in February 2010. Patient developed shortness of breath 48 hours prior to admission (07/29), he initially had diarrhea for a few days prior to admission Patient is hypoxic on presentation requiring supplemental oxygen with transient time of requiring BiPAP. Patient with persistent hypoxia now with increasing oxygen requirements, will continue to try to keep a negative fluid balance treated with Decadron 6mg IV daily, LD 08/08 Remdesivir completed 5 days convalascent plasma given 07/30 Zinc 220mcg daily Cefepime and Zithromax for secondary bacterial coverage, completed 5 days of treatment on 08/02 restarted Zithromax on 08/06/2020 initally did poorly with 2 step now has improved but still requires oxygen with exertion , is markedly deconditioned as heart rate rises to 120 with exertion , will attempt to get home with home oxygen (2) Acute respiratory failure with hypoxemia: patient is in some increasing distress continue Oxymask for supplemental oxygen (3) KRISSY (acute kidney injury): Cr is 1.06, electrolytes stable give 1 dose of Lasix 20 on the evening of 08/06/2020 no fluids running metabolic acidosis resolved (4) Acute dehydration: resolved with IV fluids, now cautious diuresis (5) Diarrhea: due to COVID 19 infection solid BM C diff is negative (6) Pneumonia: (7) Hx of kidney transplant: continue tacrolimus Cr is acceptable nephrology following recommend continuing tacrolimus holding mycophenolate while the patient is on dexamethasone (8) Hyperlipidemia: (9) Benign essential hypertension: Blood pressures have been stable the patient is been without symptoms (10) Hypothyroidism: (11) Obesity: (12) Renal transplant, status post: Patient's renal function has been stable nephrology is following and making recommendations regarding the patient's rejection medications Admission and Anticipated Discharge Date Admission Date: July 29, 2020 Subjective Gumaro has been clinically stable, however he has had progressive hypoxia as noted on 2 step home oxygen test. Chest x-ray performed on 08/06 does not show significant improvement or worsening but he still has bilateral ground glass infiltrates. did have a 2 step needing home oxygen Review of Systems Review of Systems: Mild distress and fatigue no headache, blurry or double vision no speech or swallowing issues no chest pain, pressure or palpitations shortness of breath and breathlessness, non productive cough no abdominal pain, nausea or vomiting, diarrhea or constipation no dysuria, hematuria or frequency no focal joint pain mild peripheral swelling no back pain, CVA tenderness or radicular pain no bruising, bleeding or rashes no focal signs of weakness or numbness or altered sensation no complaints of anxiety or depression. Physical Exam Physical Exam: The patient appeared well nourished and normally developed. Vital signs as documented. Head exam is normocephalic atraumatic no scleral icterus Neck is without JVD, thyromegaly, or carotid bruits. Lungs are coarse bilateral with bilateral breath sounds no focal loss or wheeze Cardiac exam, Rhythm is regular.. No murmurs, rubs or gallops. Abdominal exam reveals normal bowel sounds, soft non tender, no masses Extremities are trace edematous and both pedal pulses are present Neurologic exam is alert and oriented, no focal loss of strength or sensation Skin is without bruises or rashes Psychologically is without concerns for anxiety or depression. Results & Data Results & Data ([facility]) Vital Signs (Past 12 Hours) Vital Signs Temp Pulse Pulse Pulse Pulse Pulse Pulse 08/08/20 15:10 98.6 F 99 H 08/08/20 14:29 120 H 115 H 119 H 105 H 88 08/08/20 11:02 97.3 F L 73 08/08/20 07:28 97.7 F 63 Resp Resp Resp Resp Resp Resp BP 08/08/20 15:10 20 111/85 08/08/20 14:29 22 22 22 20 18 08/08/20 11:02 20 97/78 L 08/08/20 07:28 18 106/77 Pulse Ox Pulse Ox Pulse Ox Pulse Ox Pulse Ox Pulse Ox 08/08/20 15:10 92 08/08/20 14:29 87 L 89 L 86 L 91 93 08/08/20 11:02 92 08/08/20 07:28 98 PG Care Time/CCT Total # of Minutes Spent Total Time Spent with Patient: Total time spent is greater than 50% in coordination of care (as documented) at patient's floor/unit and/or counseling patient: Coding Level of Care Code 76830 Subseq Hosp Care Lvl 2 Diagnoses COVID-19 U07.1 Acute respiratory failure with hypoxemia J96.01 KRISSY (acute kidney injury) N17.9 Acute dehydration E86.0 Diarrhea R19.7 Diarrhea type: unspecified type Pneumonia J18.9 Pneumonia type: due to unspecified organism Laterality: bilateral Lung location: unspecified part of lung Hx of kidney transplant Z94.0 Hyperlipidemia E78.5 Hyperlipidemia type: unspecified Benign essential hypertension I10 Hypothyroidism E03.8 Hypothyroidism type: other Obesity E66.9 Obesity type: unspecified obesity type Obesity classification: adult class 2 (BMI 35 - 39.9) Renal transplant, status post Z94.0 (1) Diarrhea Diarrhea type: unspecified type Qualified Code(s): R19.7 - Diarrhea, unspecified (2) Pneumonia Pneumonia type: due to unspecified organism Laterality: bilateral Lung location: unspecified part of lung Qualified Code(s): J18.9 - Pneumonia, unspecified organism (3) Hyperlipidemia Hyperlipidemia type: unspecified Qualified Code(s): E78.5 - Hyperlipidemia, unspecified (4) Hypothyroidism Hypothyroidism type: other Qualified Code(s): E03.8 - Other specified hypothyroidism (5) Obesity Obesity type: unspecified obesity type Obesity classification: adult class 2 (BMI 35 - 39.9)
[2020-08-09] MEDS: LEVOTHYROXINE SODIUM 125 MCG TABLET PO SCH (05:41)
[2020-08-09] MEDS: HEPARIN SOD 5,000 UNIT/0.5 ML VIAL SQ SCH (05:41)
[2020-08-09] MEDS: DEXAMETHASONE SOD PHOSPHATE 6 MG in SYRINGE 0 ML IV SCH (08:35)
[2020-08-09] MEDS: CALCIUM CARBONATE 1250MG TAB PO SCH (08:36)
[2020-08-09] MEDS: ASPIRIN 81 MG ECTAB PO SCH (08:36)
[2020-08-09] MEDS: CEROVITE ADV FORMULA TAB PO SCH (08:36)
[2020-08-09] MEDS: PANTOprazole 40 MG TAB PO SCH (08:37)
[2020-08-09] MEDS: TACROLIMUS 1 MG CAP PO SCH (08:37)
[2020-08-09] MEDS: MAGNESIUM OXIDE 400 MG TAB PO SCH (08:41)
[2020-08-09 12:01] LABS: BUN Creatinine Ratio 35.3 (10-20); Calcium 9.7 mg/dl (8.5-10.1); Creatinine Clr Calc Pharmacy 84.7 ml/min; Est GFR (African American) 85.7; Est GFR (Non-African American) 73.9; Potassium 4.6 mmol/L (3.5-5.1)
--- NOTE | 2020-08-09 13:24 | Discharge Summary ---
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 Patient has been maintained on tacrolimus, CellCept, and prednisone. He did have some mild postoperative complications which were remedied and the patient has been on regular immunosuppressive medications with relatively normal renal function since. Patient does carry a history of obesity as well as hypothyroidism, hypertension, hyperlipidemia, GERD, prior history of CVA, and AAA. Patient notes approximately 5 to 7 days ago he developed diarrhea symptoms. He states that he has been somewhat rundown since, but had been trying to eat and drink despite his symptoms. He developed symptoms of shortness of breath and cough over the last 48 hours. This prompted visit to the emergency department. The patient reports increasing shortness of breath with ambulation. He denies shortness of breath at rest. Patient reports that he does not leave his house often and if he does go the store, typically his goes in and he sits in the car. He denies any known contacts of COVID-19. He reports no symptoms of fevers, chills, anosmia, or lack of taste/smell. Patient currently denies any complaints of headaches, dizziness, lightheadedness, chest pain, palpitations, pleuritic pain, nausea, vomiting, or abdominal pain. Principal Diagnosis pneumonia due to covid 19 acute respiratory failure with hypoxia Discharge Exam The patient appeared well Vital signs as documented. Lungs are minutes at the bases but overall clear Cardiac exam, Rhythm is regular.. No murmurs, rubs or gallops. Abdominal exam reveals normal bowel sounds, soft non tender, no masses Extremities are nonedematous and both pedal pulses are normal. Neurologic exam is alert and oriented, no focal loss of strength or sensation Skin is with bruises on his arms Psychologically is without concerns for anxiety or depression. Discharge Data Allergies Allergy/AdvReac Type Severity Reaction Status Date / Time clopidogrel [From Plavix] Allergy Verified 07/29/20 11:33 Udnuejz-Dqf-Ppr Reductase AdvReac Intermediate myalgias Verified 07/29/20 11:33 Inhibitor Consultations 07/29/20 12:43 ED Decision to Admit Stat 07/29/20 19:34 Consult Case Management - Discharge Planning Routine Consult Nephrology Routine Hospital Course (1) COVID-19: Unfortunately, the patient's diagnosis is complicated by his underlying immunocompromise state secondary to renal transplantation in February 2010. Patient developed shortness of breath 48 hours prior to admission (07/29), he initially had diarrhea for a few days prior to admission Patient is hypoxic on presentation requiring supplemental oxygen with transient time of requiring BiPAP. Patient be home on exertional 3 L oxygen at rest his sats are good requires no supplementation treated with Decadron 6mg IV daily, LD 08/15 Remdesivir completed 5 days convalascent plasma given 07/30 Zinc 220mcg daily Cefepime and Zithromax for secondary bacterial coverage, completed 5 days of treatment on 08/02 (2) Acute respiratory failure with hypoxemia: continue with oxygen on esertion only (3) KRISSY (acute kidney injury): resolved metabolic acidosis resolved (4) Hx of kidney transplant: continue tacrolimus Cr is acceptable nephrology recommend continuing tacrolimus holding mycophenolate while the patient is on dexamethasone, will restart as an outpt (5) Hyperlipidemia: (6) Benign essential hypertension: Blood pressures have been stable the patient is been without symptoms (7) Hypothyroidism: (8) Obesity: Total Time Total Time Spent Total Time Spent (In Minutes): It required greater than 30 minutes to prepare this patient for discharge Discharge Plan Discharge Items Patient Disposition: Home - Self-Care Reason For Visit: COVID-19 PNA,HYPOXIA,KRISSY Discharge Diagnosis: covid 19 pneumonia Activity: Per Instructions section Activity Comment: home isolation , no intentional exercise for 2 weeks Non-emergency contact: Primary Care Provider and Traveling Operator Call non-emergency contact if: your symptoms worsen Follow-up/Referrals: Santos Rivers MD [Primary Care Provider] - 08/11/20 12:30 pm (the office will call you to do a phone call visit on 08/11/2020 @ 12:30) Diet: Regular Addtl Attending Provider Instructions: DO NOT TAKE MYCOPHENOLATE OR PREDNISONE WHILE FINISHING DEXAMETHASONE. THEN WHEN RESTARTING YOUR PREDNISONE TAKE FOUR 5 MG TABLETS FOR 2 DAYS, THEN THREE 5 MG TABLETS FOR TWO DAYS THEN TWO 5 MG TABLETS FOR TWO DAYS THEN RESUME ONE last dose of Dexamethasone should be 08/15/20 ONCE DEXAMEHTHAOSNE IS COMPLETED 20MG PREDNISONE X 2 D-> 15 MG PREDNISONE X 2D-> 10 MG PREDNISONE X 2 D-> RESUME USUAL 5 MG A DYA Home Isolation COVID-19 Instructions The following information about Home Isolation is from the CDC Website: https://www.cdc.gov/coronavirus/2019-ncov/hcp/phfaxgkw-kvrbixx-aszfdq.html Stay home except to get medical care People who are mildly ill with COVID-19 are able to isolate at home during their illness. You should restrict activities outside your home, except for getting medical care. Do not go to work, school, or public areas. Avoid using public transportation, ride-sharing, or taxis. Separate yourself from other people and animals in your home People: As much as possible, you should stay in a specific room and away from other people in your home. Also, you should use a separate bathroom, if availab le. Animals: You should restrict contact with pets and other animals while you are sick with COVID-19, just like you would around other people. Although there have not been reports of pets or other animals becoming sick with COVID-19, it is still recommended that people sick with COVID-19 limit contact with animals until more information is known about the virus. When possible, have another member of your household care for your animals while you are sick. If you are sick with COVID-19, avoid contact with your pet, including petting, snuggling, being kissed or licked, and sharing food. If you must care for your pet or be around animals while you are sick, wash your hands before and after you interact with pets and wear a face mask. Call ahead before visiting your doctor If you have a medical appointment, call the healthcare provider and tell them that you have or may have COVID-19. This will help the healthcare providers office take steps to keep other people from getting infected or exposed. Wear a face mask You should wear a face mask when you are around other people (e.g., sharing a room or vehicle) or pets and before you enter a healthcare providers office. If you are not able to wear a face mask (for example, because it causes trouble breathing), then people who live with you should not stay in the same room with you, or they should wear a face mask if they enter your room. Cover your coughs and sneezes Cover your mouth and nose with a tissue when you cough or sneeze. Throw used tissues in a lined trash can. Immediately wash your hands with soap and water for at least 20 seconds or, if soap and water are not available, clean your hands with an alcohol-based hand web press operator helper offset that contains at least 60% alcohol. Clean your hands often Wash your hands often with soap and water for at least 20 seconds, especially after blowing your nose, coughing, or sneezing; going to the bathroom; and before eating or preparing food. If soap and water are not readily available, use an alcohol-based hand web press operator helper offset with at least 60% alcohol, covering all surfaces of your hands and rubbing them together until they feel dry. Soap and water are the best option if hands are visibly dirty. Avoid touching your eyes, nose, and mouth with unwashed hands. Avoid sharing personal household items You should not share dishes, drinking glasses, cups, eating utensils, towels, or bedding with other people or pets in your home. After using these items, they should be washed thoroughly with soap and water. Clean all high-touch surfaces everyday High touch surfaces include counters, tabletops, doorknobs, bathroom fixtures, toilets, phones, keyboards, tablets, and bedside tables. Also, clean any surfaces that may have blood, stool, or body fluids on them. Use a household cleaning spray or wipe, according to the label instructions. Labels contain instructions for safe and effective use of the cleaning product including precautions you should take when applying the product, such as wearing gloves an d making sure you have good ventilation during use of the product. Monitor your symptoms Seek prompt medical attention if your illness is worsening (e.g., difficulty breathing).Beforeseeking care, call your healthcare provider and tell them that you have, or are being evaluated for, COVID-19. Put on a face mask before you enter the facility. These steps will help the healthcare providers office to keep other people in the office or waiting room from getting infected or exposed. Ask your healthcare provider to call the local or [facility] health department. Persons who are placed under active monitoring or facilitated self- monitoring should follow instructions provided by their local health department or occupational health professionals, as appropriate. When working with your local health department check their available hours. If you have a medical emergency and need to call 911, notify the dispatch personnel that you have, or are being evaluated for COVID-19. If possible, put on a face mask before emergency medical services arrive. Discontinuing home isolation Patients with confirmed COVID-19 should remain under home isolation precautions until the risk of secondary transmission to others is thought to be low. The decision to discontinue home isolation precautions should be made on a [id number] basis, in consultation with healthcare providers and state and local health departments. Pending Studies at Discharge: No Stand-Alone Forms: [facility], Smoking Cessation Medications and DC Order Prescriptions: New dexamethasone [Decadron] 6 mg tablet 6 mg PO DAILY Qty: 4 RF: 0 (DME) Oxygen Home Liters Per Minute 2 ea .Route UD Qty: 1 RF: 0 Continued prednisone 5 mg tablet 5 mg PO DAILY Qty: 90 RF: 3 tacrolimus 1 mg capsule 1 mg PO Q12H Qty: 180 RF: 3 mycophenolate mofetil 250 mg capsule 500 mg PO BID Qty: 360 RF: 3 aspirin 81 mg tablet,chewable 81 mg PO DAILY Qty: 90 RF: 3 magnesium oxide 500 mg tablet 500 mg PO DAILY Qty: 90 RF: 3 Complete Multivitamin tablet 1 tab PO DAILY Qty: 90 RF: 3 calcium carbonate [Calcium 500] 500 mg calcium (1,250 mg) tablet,chewable 500 mg PO DAILY RF: 0 pantoprazole 40 mg tablet,delayed release (DR/EC) 40 mg PO DAILY Qty: 90 RF: 3 lisinopril 20 mg tablet 20 mg PO DAILY Qty: 90 RF: 3 ibandronate 150 mg tablet 150 mg PO MONTHLY RF: 0 amoxicillin 500 mg capsule 2,000 mg PO ONCE RF: 0 levothyroxine 125 mcg tablet 125 mcg PO DAILY RF: 0 Discharge Orders: Discharge Order (Routine); Ordered 08/09/20 Ordered By: Addi Ash Admission Data Admit Date/Time: 07/29/20 13:48 Attending Provider: Addi Ash Admit Provider: Arian Reed Primary Care Provider: Santos Rivers Other Providers: Arian Reed ; Sabi Morel ; Tung Mccormick ; Arian Jimenez ; Charlotte Oro ; Colin Braxton Other Interventions: Discharge Summary Assessment (RN) Last Done: 08/09/20 12:11 Coding Level of Care Code D/C Day Management >30 mins Diagnoses COVID-19 U07.1 Acute respiratory failure with hypoxemia J96.01 KRISSY (acute kidney injury) N17.9 Hx of kidney transplant Z94.0 Hyperlipidemia E78.5 Hyperlipidemia type: unspecified Benign essential hypertension I10 Hypothyroidism E03.8 Hypothyroidism type: other Obesity E66.9 Obesity classification: adult class 2 (BMI 35 - 39.9) Obesity type: unspecified obesity type
== END 2020-08-09 15:17 | disposition home or self-care (01) | DRG 177 ==
LOC: ED 09:40 → SUATTDRO 13:48 → 2S 13:48 → 2E 07-31 16:10

== ENCOUNTER 2023-01-31 02:30 | Inpatient (IN) ==
[2023-01-31] MEDS ORDERED: ALBUT/IPRATROP 3MG/0.5MG NEB 3 ML VIAL NEB STA (02:44)
--- NOTE | 2023-01-31 02:47 | Emergency Department Note ---
History of Present Illness General Chief complaint: Shortness of Breath/Dyspnea Stated complaint: SOB - HAS A COLD Time Seen by Provider: 01/31/23 02:38 History of Present Illness This 62-year-old male presents the ER complaining of increasing shortness of breath for the past week steadily getting worse. Patient denies chest pain, fever, chills, abdominal pain, leg pain or swelling. No history of PE. No his tory of heart failure. Home Medications Medication Instructions Recorded Confirmed Type aspirin 81 mg chewable tablet 81 mg PO DAILY #90 tabs 06/06/19 01/31/23 Rx magnesium oxide 500 mg tablet 500 mg PO DAILY #90 tabs 06/06/19 01/31/23 Rx prednisone 5 mg tablet 5 mg PO DAILY #90 tabs 07/23/19 01/31/23 Rx mycophenolate mofetil 250 mg 500 mg PO BID #360 caps 05/29/20 01/31/23 Rx capsule amoxicillin 500 mg capsule 2,000 mg PO DIRECTED PRN PRIOR 07/29/20 01/31/23 History TO DENTAL PROCEDURES multivitamin 1 tab PO DAILY 08/02/21 01/31/23 History lisinopril 10 mg tablet 10 mg PO DAILY #90 tabs 07/08/22 01/31/23 Rx tacrolimus 1 mg capsule, 2 mg PO BID 07/08/22 01/31/23 History immediate-release levothyroxine 125 mcg tablet 125 mcg PO DAILY 01/31/23 01/31/23 History pantoprazole 40 mg tablet,delayed 40 mg PO DAILY 01/31/23 01/31/23 History release Allergies Allergy/AdvReac Type Severity Reaction Status Date / Time clopidogrel [From Plavix] Allergy Unknown Unknown Verified 01/31/23 02:51 Ttfnnmv-[id number]-RwA Reductase AdvReac Intermediate myalgias Verified 01/31/23 02:51 Inhibitor [Fyutwtn-Pbu-Hmr Reductase Inhibitor] Past Med/Surg History Medical History Abdominal aortic aneurysm Anemia Benign essential hypertension Chronic kidney disease, stage 3a CVA (cerebral vascular accident) FSGS (focal segmental glomerulosclerosis) History of esophageal reflux Hyperlipidemia Hypothyroidism Obesity Osteoporosis Proteinuria Vitamin D deficiency Surgical History History of colonoscopy Family History Grandmother (Maternal) Alzheimer disease Mother Depression Denies family history of Ovarian cancer Prostate cancer Diabetes Heart disease Myocardial infarction Breast cancer Lung cancer COPD (chronic obstructive pulmonary disease) Colorectal cancer Hypertension Stroke Social History Smoking Status: Never smoker Second Hand Exposure: No; Do You Dip or Chew Tobacco: No; Hx Alcohol Use: Yes Alcohol type: beer Alcohol Intake Frequency: Monthly or Less Hx Substance Use: No 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: Macedonian Communication Ability: Effective Visual Impairment: No Limitations Hearing Ability: Normal Market Stall Vendor Required: No Beliefs That Will Affect Care: None marital status: Current Living Situation: Spouse current occupational status: employed current occupation: [employer] How many Children do You have: 1 Feels Safe at Home: Yes Childhood Exposure to Second-Hand Smoke: No Dental Care, Regularly: Yes Seatbelt Use: sometimes Sunscreen Use: No Assistive Devices: None Review of Systems A total of 10 systems reviewed and were otherwise negative Physical Exam Vital Signs Vital Signs - 24 hr 01/31/23 02:35 01/31/23 02:55 01/31/23 03:10 Temperature 36.4 C L Temperature Source Temporal Artery Scan Pulse Rate 91 H Pulse Rate [Apical] 89 Respiratory Rate 18 18 Respiratory Effort / Characteristics Non-Labored Spontaneous Respiratory Depth Normal Blood Pressure 111/71 Blood Pressure [Right Arm] 119/76 Blood Pressure Mean 84 Blood Pressure Mean [Right Arm] 90 Blood Pressure Position Sitting Pulse Oximetry 100 100 100 Oxygen Delivery Method Room Air Room Air Room Air Sepsis Recent Fever Within 48 Hours No Sepsis New/Unexplained Change in Mental Status No Sepsis Action Taken by Nursing No Action Required 01/31/23 03:00 01/31/23 03:43 Temperature Temperature Source Pulse Rate 86 Pulse Rate [Apical] 88 Respiratory Rate 16 Respiratory Effort / Characteristics Respiratory Depth Blood Pressure Blood Pressure [Right Arm] 127/95 Blood Pressure Mean Blood Pressure Mean [Right Arm] 105 Blood Pressure Position Pulse Oximetry 94 Oxygen Delivery Method Room Air Sepsis Recent Fever Within 48 Hours Sepsis New/Unexplained Change in Mental Status Sepsis Action Taken by Nursing VITALS: Vitals are noted on the nurse's note and reviewed by myself. Vital s igns stable. GENERAL: Pleasant male, in no acute distress, nondiaphoretic, well-developed well-nourished. SKIN: The skin was without rashes, erythema, or bruising. There is no tenting of the skin. Capillary reflex less than 2 seconds. HEAD: Normocephalic atraumatic. EARS: External auditory canals clear, EYES: Pupils equal round and reactive to light and accommodation. Conjunctivae without injection, sclerae without icterus. Extraocular movements intact. NOSE: Patent, turbinates without inflammation or discharge. MOUTH: Mucous membranes moist. Pharynx without erythema or exudate. Uvula midline. Airway patent. Tongue does not deviate. NECK: Supple without nuchal rigidity. No lymphadenopathy. No thyromegaly. Cervical spine is nontender. No JVD. HEART: Regular rate and rhythm LUNGS: Clear to auscultation bilaterally without wheezes, rales or rhonchi. No retractions or accessory muscle use. ABDOMEN: Positive bowel sounds x 4. Normal tympanic percussion. Soft, non tender, without masses or organomegaly. Cohn sign negative. No guarding or rebound tenderness. No CVA tenderness Rectal exam: Brown stool guaiac negative. Nurse fire extinguisher technician present MUSCULOSKELETAL: No muscle atrophy, erythema, a noted. NEURO: Patient was alert and oriented to person place and time. Normal sensation to light and sharp touch. No focal neurological deficits. Course Administered Medications Discontinued Medications Albuterol (Albut/Ipratrop 3mg/0.5mg Neb 3 Ml Vial) 3 ml NEB NOW STA; Protocol Stop: 01/31/23 02:45 Last Admin: 01/31/23 03:06 Dose: 3 ml Documented By: BRIELLE Pantoprazole Sodium 80 mg/ (Dextrose) 120 mls @ 480 mls/hr IV ONE STA Stop: 01/31/23 03:39 Last Infusion: 01/31/23 04:27 Dose: 0 mls/hr Documented By: Admin: 01/31/23 04:06 Dose: 480 mls/hr Documented By: BRIELLE Famotidine (Pepcid 20mg Iv Push) 20 mg in 5 mls @ 2.5 mls/min IV NOW STA Stop: 01/31/23 03:26 Last Admin: 01/31/23 03:46 Dose: 2.5 mls/min Documented By: BRIELLE Piperacillin Sod/Tazobactam (Sod 4.5 gm/ Dextrose) 120 mls @ 200 mls/hr IV NOW ONE; Protocol Stop: 01/31/23 04:31 Last Admin: 01/31/23 04:46 Dose: Not Given Documented By: BRIELLE Ioversol (Optiray 320 500ml) 125 ml IV ONCE ONE Stop: 01/31/23 03:57 Last Admin: 01/31/23 03:57 Dose: 112 ml Documented By: ALEXEI Ondansetron HCl (Ondansetron Inj 2 Mg/Ml 2 Ml Vial) 4 mg IV NOW STA Stop: 01/31/23 03:26 Last Admin: 01/31/23 03:46 Dose: 4 mg Documented By: BRIELLE Piperacillin Sod/Tazobactam Sod (Piperacillin/Tazobactam 4.5 Gm/120ml D5w) Confirm Administered Dose 4.5 gm IV .STK-MED ONE Stop: 01/31/23 04:40 Last Admin: 01/31/23 04:44 Dose: 4.5 gm Documented By: BRIELLE Critical Care Time Critical Care Time: Yes Total Critical Care Time: 35 I have personally spent 35 minutes of critical care time in the direct management of this patient. This includes bedside care, interpretation of diagnostic studies, and testing, discussion with consultants, patient, and family members, and other required patient management activities. This 35 minutes is in excess of all separately billable procedures. Medical Decision Making Medical Records Attestation: I reviewed the patient's medical records. Home Medications Current Medication List: was personally reviewed by me Laboratory Data Attestation: I reviewed the patient's lab results. 01/31/23 02:50 01/31/23 02:50 Lab Results 01/31/23 01/31/23 01/31/23 Range/Units 02:50 02:50 02:50 WBC 12.73 H (4.8-10.8) K/ul RBC 2.13 L (4.70-6.10) M/uL Hgb 7.5 L (14.0-18.0) g/dl POC Hgb (14.0-18.0) g/dl Hct 23.0 L (42.0-52.0) % POC Hct (42-52) % MCV 108.0 H (80.0-100.0) fL MCH 35.2 H (25.0-34.0) pg MCHC 32.6 (32.0-36.0) g/dL RDW Std Deviation 48.0 H (36.4-46.3) fL RDW Coeff of Jaye 12.5 (11.5-14.5) % Plt Count 284 (130-400) K/uL MPV 9.2 L (9.4-12.4) fL Immature Gran % (Auto) 0.7 % Neut % (Auto) 85.0 % Lymph % (Auto) 4.5 % Stephens % (Auto) 8.1 % Eos % (Auto) 1.5 % Baso % (Auto) 0.2 % Neut # (Auto) 10.82 H (1.40-6.50) K/uL Lymph # (Auto) 0.57 L (1.2-3.4) K/uL Stephens # (Auto) 1.03 H (0.11-0.59) K/uL Eos # (Auto) 0.19 (0-0.50) K/uL Baso # (Auto) 0.03 (0-0.2) K/uL Immature Gran # (Auto) 0.09 (0.01-0.20) K/uL Polychromasia 1+ POC Sodium (135-144) mmol/L Sodium 134 L (136-145) mmol/L POC Potassium (3.3-5.0) mmol/L Potassium 4.1 (3.5-5.1) mmol/L POC Chloride (101-112) mmol/L Chloride 104 (98-107) mmol/L Carbon Dioxide 21 (21-32) mmol/L POC Total CO2 (24-31) mmol/L Anion Gap 9 (3-11) POC Anion Gap (16-25) mmol/L POC BUN (7-18) mg/dl BUN 34 H (6-23) mg/dl Creatinine 1.43 H (0.6-1.4) mg/dl POC Creatinine (0.6-1.3) mg/dl Est Cr Clr Drug Dosing Not Reportable Est GFR ( Amer) 60.4 ml/min Est GFR (Non-Af Amer) 52.1 ml/min BUN/Creatinine Ratio 23.8 H (10-20) Glucose 104 H (70-99(Fasting)) mg/dl POC Glucose (other) (70-99) mg/dl Calcium 8.7 (8.6-10.3) mg/dl POC Ioniz Calcium [place] (1.12-1.32) mmol/l Total Bilirubin 1.9 H (0.2-1.0) mg/dl AST 55 H (13-39) U/L ALT 57 H (7-52) U/L Alkaline Phosphatase 146 H (34-104) U/L Troponin I High Sens 38.9 H (0-20) pg/ml B-Natriuretic Peptide 180 H (0-100) pg/ml Total Protein 7.4 (6.0-8.3) gm/dl Albumin 3.7 (3.4-5.0) gm/dl Globulin 3.7 (2.5-4.0) gm/dl Albumin/Globulin Ratio 1.0 (0.9-2) Urine Color Urine Appearance (Clear) Urine pH (4.5-7.5) Ur Specific [place] (1.000-1.030) Urine Protein (Negative) Urine Glucose (UA) (Negative) Urine Ketones (Negative) Urine Blood (Negative) Urine Nitrite (Negative) Urine Bilirubin (Negative) Urine Urobilinogen (Negative) Ur Leukocyte Esterase (Negative) Urine WBC (Auto) (0-5) /hpf Urine RBC (Auto) (0-4) /hpf U Hyaline Cast (Auto) (0-5) /lpf U Epithel Cells (Auto) (0-5) /lpf Urine Bacteria (Auto) (Negative) Adenovirus (PCR) (NotDetected) B. pertussis DNA (PCR) (NotDetected) B.parapertussis DNA PCR (NotDetected) C. pneumoniae DNA (PCR) (NotDetected) Coronavirus OC43 (PCR) (NotDetected) Coronavirus HKU1 (PCR) (NotDetected) Coronavirus 229E (PCR) (NotDetected) SARS-CoV-2 (PCR) (NotDetected) Coronavirus NL63 (PCR) (NotDetected) Human Metapneumovir PCR (NotDetected) Influenza Type A (PCR) (NotDetected) Influenza Type B (PCR) (NotDetected) M. pneumoniae (PCR) (NotDetected) Parainfluenza 1 (PCR) (NotDetected) Parainfluenza 2 (PCR) (NotDetected) Parainfluenza 3 (PCR) (NotDetected) Parainfluenza 4 (PCR) (NotDetected) RSV (PCR) (NotDetected) Entero/Rhino (PCR) (NotDetected) Crossmatch 01/31/23 01/31/23 01/31/23 Range/Units 02:58 03:00 03:00 WBC (4.8-10.8) K/ul RBC (4.70-6.10) M/uL Hgb (14.0-18.0) g/dl POC Hgb 7.5 L (14.0-18.0) g/dl Hct (42.0-52.0) % POC Hct 22 L (42-52) % MCV (80.0-100.0) fL MCH (25.0-34.0) pg MCHC (32.0-36.0) g/dL RDW Std Deviation (36.4-46.3) fL RDW Coeff of Jaye (11.5-14.5) % Plt Count (130-400) K/uL MPV (9.4-12.4) fL Immature Gran % (Auto) % Neut % (Auto) % Lymph % (Auto) % Stephens % (Auto) % Eos % (Auto) % Baso % (Auto) % Neut # (Auto) (1.40-6.50) K/uL Lymph # (Auto) (1.2-3.4) K/uL Stephens # (Auto) (0.11-0.59) K/uL Eos # (Auto) (0-0.50) K/uL Baso # (Auto) (0-0.2) K/uL Immature Gran # (Auto) (0.01-0.20) K/uL Polychromasia POC Sodium 137 (135-144) mmol/L Sodium (136-145) mmol/L POC Potassium 4.3 (3.3-5.0) mmol/L Potassium (3.5-5.1) mmol/L POC Chloride 106 (101-112) mmol/L Chloride (98-107) mmol/L Carbon Dioxide (21-32) mmol/L POC Total CO2 20 L (24-31) mmol/L Anion Gap (3-11) POC Anion Gap 16.0 (16-25) mmol/L POC BUN 29 H (7-18) mg/dl BUN (6-23) mg/dl Creatinine (0.6-1.4) mg/dl POC Creatinine 1.6 H (0.6-1.3) mg/dl Est Cr Clr Drug Dosing Est GFR ( Amer) ml/min Est GFR (Non-Af Amer) ml/min BUN/Creatinine Ratio (10-20) Glucose (70-99(Fasting)) mg/dl POC Glucose (other) 111 H (70-99) mg/dl Calcium (8.6-10.3) mg/dl POC Ioniz Calcium [place]iss[place] 1.19 (1.12-1.32) mmol/l Total Bilirubin (0.2-1.0) mg/dl AST (13-39) U/L ALT (7-52) U/L Alkaline Phosphatase (34-104) U/L Troponin I High Sens (0-20) pg/ml B-Natriuretic Peptide (0-100) pg/ml Total Protein (6.0-8.3) gm/dl Albumin (3.4-5.0) gm/dl Globulin (2.5-4.0) gm/dl Albumin/Globulin Ratio (0.9-2) Urine Color [place] Urine Appearance Clear (Clear) Urine pH 5.0 (4.5-7.5) Ur Specific [place] 1.021 (1.000-1.030) Urine Protein Negative (Negative) Urine Glucose (UA) Negative (Negative) Urine Ketones Trace H (Negative) Urine Blood Negative (Negative) Urine Nitrite Positive A (Negative) Urine Bilirubin 1+ H (Negative) Urine Urobilinogen Positive H (Negative) Ur Leukocyte Esterase Trace H (Negative) Urine WBC (Auto) 1-5 (0-5) /hpf Urine RBC (Auto) 0-4 (0-4) /hpf U Hyaline Cast (Auto) 5-10 H (0-5) /lpf U Epithel Cells (Auto) 10-20 H (0-5) /lpf Urine Bacteria (Auto) Negative (Negative) Adenovirus (PCR) Not Detected (NotDetected) B. pertussis DNA (PCR) Not Detected (NotDetected) B.parapertussis DNA PCR Not Detected (NotDetected) C. pneumoniae DNA (PCR) Not Detected (NotDetected) Coronavirus OC43 (PCR) Not Detected (NotDetected) Coronavirus HKU1 (PCR) Not Detected (NotDetected) Coronavirus 229E (PCR) Not Detected (NotDetected) SARS-CoV-2 (PCR) Not Detected (NotDetected) Coronavirus NL63 (PCR) Not Detected (NotDetected) Human Metapneumovir PCR Not Detected (NotDetected) Influenza Type A (PCR) Not Detected (NotDetected) Influenza Type B (PCR) Not Detected (NotDetected) M. pneumoniae (PCR) Not Detected (NotDetected) Parainfluenza 1 (PCR) Not Detected (NotDetected) Parainfluenza 2 (PCR) Not Detected (NotDetected) Parainfluenza 3 (PCR) Not Detected (NotDetected) Parainfluenza 4 (PCR) Not Detected (NotDetected) RSV (PCR) Not Detected (NotDetected) Entero/Rhino (PCR) Not Detected (NotDetected) Crossmatch 01/31/23 01/31/23 Range/Units 04:04 04:04 WBC (4.8-10.8) K/ul RBC (4.70-6.10) M/uL Hgb (14.0-18.0) g/dl POC Hgb (14.0-18.0) g/dl Hct (42.0-52.0) % POC Hct (42-52) % MCV (80.0-100.0) fL MCH (25.0-34.0) pg MCHC (32.0-36.0) g/dL RDW Std Deviation (36.4-46.3) fL RDW Coeff of Jaye (11.5-14.5) % Plt Count (130-400) K/uL MPV (9.4-12.4) fL Immature Gran % (Auto) % Neut % (Auto) % Lymph % (Auto) % Stephens % (Auto) % Eos % (Auto) % Baso % (Auto) % Neut # (Auto) (1.40-6.50) K/uL Lymph # (Auto) (1.2-3.4) K/uL [place] # (Auto) (0.11-0.59) K/uL Eos # (Auto) (0-0.50) K/uL Baso # (Auto) (0-0.2) K/uL Immature Gran # (Auto) (0.01-0.20) K/uL Polychromasia POC Sodium (135-144) mmol/L Sodium (136-145) mmol/L POC Potassium (3.3-5.0) mmol/L Potassium (3.5-5.1) mmol/L POC Chloride (101-112) mmol/L Chloride (98-107) mmol/L Carbon Dioxide (21-32) mmol/L POC Total CO2 (24-31) mmol/L Anion Gap (3-11) POC Anion Gap (16-25) mmol/L POC BUN (7-18) mg/dl BUN (6-23) mg/dl Creatinine (0.6-1.4) mg/dl POC Creatinine (0.6-1.3) mg/dl Est Cr Clr Drug Dosing Est GFR ( Amer) ml/min Est GFR (Non-Af Amer) ml/min BUN/Creatinine Ratio (10-20) Glucose (70-99(Fasting)) mg/dl POC Glucose (other) (70-99) mg/dl Calcium (8.6-10.3) mg/dl POC Ioniz Calcium [place]iss[place] (1.12-1.32) mmol/l Total Bilirubin (0.2-1.0) mg/dl AST (13-39) U/L ALT (7-52) U/L Alkaline Phosphatase (34-104) U/L Troponin I High Sens 23.4 H D (0-20) pg/ml B-Natriuretic Peptide (0-100) pg/ml Total Protein (6.0-8.3) gm/dl Albumin (3.4-5.0) gm/dl Globulin (2.5-4.0) gm/dl Albumin/Globulin Ratio (0.9-2) Urine Color Urine Appearance (Clear) Urine pH (4.5-7.5) Ur Specific [place] (1.000-1.030) Urine Protein (Negative) Urine Glucose (UA) (Negative) Urine Ketones (Negative) Urine Blood (Negative) Urine Nitrite (Negative) Urine Bilirubin (Negative) Urine Urobilinogen (Negative) Ur Leukocyte Esterase (Negative) Urine WBC (Auto) (0-5) /hpf Urine RBC (Auto) (0-4) /hpf U Hyaline Cast (Auto) (0-5) /lpf U Epithel Cells (Auto) (0-5) /lpf Urine Bacteria (Auto) (Negative) Adenovirus (PCR) (NotDetected) B. pertussis DNA (PCR) (NotDetected) B.parapertussis DNA PCR (NotDetected) C. pneumoniae DNA (PCR) (NotDetected) Coronavirus OC43 (PCR) (NotDetected) Coronavirus HKU1 (PCR) (NotDetected) Coronavirus 229E (PCR) (NotDetected) SARS-CoV-2 (PCR) (NotDetected) Coronavirus NL63 (PCR) (NotDetected) Human Metapneumovir PCR (NotDetected) Influenza Type A (PCR) (NotDetected) Influenza Type B (PCR) (NotDetected) M. pneumoniae (PCR) (NotDetected) Parainfluenza 1 (PCR) (NotDetected) Parainfluenza 2 (PCR) (NotDetected) Parainfluenza 3 (PCR) (NotDetected) Parainfluenza 4 (PCR) (NotDetected) RSV (PCR) (NotDetected) Entero/Rhino (PCR) (NotDetected) Crossmatch See Detail Imaging Data Attestation: I personally reviewed and interpreted this imaging study as follows: Radiologist's Impression: Chest CTA 01/31/23 02:44 Exam(s): CTA CHEST IV Amt: 112 ML OPTIRAY 320 EXAM: CT Angiography Chest With Intravenous Contrast CLINICAL HISTORY: Reason for exam: PE. TECHNIQUE: Axial computed tomographic angiography images of the chest with intravenous contrast. Automated exposure control was utilized for the study. A dose lowering technique was utilized adhering to the principles of ALARA. MIP reconstructed images were created and reviewed. COMPARISON: No relevant prior studies available. FINDINGS: Pulmonary arteries: No pulmonary embolism. Aorta: Aneurysmal ascending thoracic aorta measuring up to 4.9 cm. No dissection. Lungs: Bilateral lower lobe airspace opacities suggestive of pneumonia. Pleural space: Unremarkable. Heart: Severe coronary artery calcifications. Mediastinum: Small hiatal hernia. Bones/joints: No acute fracture. Soft tissues: Unremarkable. Lymph nodes: Unremarkable. Adrenals: Left adrenal nodule with irregular borders measuring 2.7 x 2. 5 cm only partially imaged on this study. IMPRESSION: 1. No pulmonary embolism. 2. Aneurysmal ascending thoracic aorta measuring up to 4.9 cm. No dissection. 3. Bilateral lower lobe airspace opacities suggestive of pneumonia. 4. Small hiatal hernia. 5. Severe coronary artery calcifications. 6. Left adrenal nodule with irregular borders measuring 2.7 x 2.5 cm only partially imaged on this study. Consider adrenal protocol CT or MRI for characterization. Electronically signed by: Emery Boudreaux MD 01/31/23 04:25 AM MDM Narrative Prior records/ancillary studies reviewed. Triage Nursing notes reviewed. Additional history obtained from the nursing. The patient's history was concerning for respiratory difficulties. Differential diagnosis: Etiologies such as infections, reactive airway disease, pneumonia, pneumothorax, COPD, CHF, cardiac ischemia, pulmonary embolism, musculoskeletal, gastrointestinal, as well as others were entertained. Physical examination: As above. ER treatment provided: An order was placed for continuous cardiac monitoring. The monitor shows a rate of 60-100 with a sinus rhythm per my interpretation. Nebulizer, Zosyn, Protonix, Pepcid, IV fluids On reassessment the patient felt better. Diagnostic interpretation by me: The electrocardiogram was ordered for SOB. ECG: Normal sinus, right bundle, left axis, rate of 87. Impression normal sinus rhythm with a right bundle branch block left axis deviation independently interpreted by myself The labs Independently Interpreted by myself revealed worsening anemia and patient was typed and crossmatched for 2 units. He was consented Elevated troponin and repeat was ordered, elevated LFTs, elevated BNP Imaging studies: Chest x-ray with no acute consolidation, pneumothorax or free air per my independent interpretation. CTA was reviewed by radiology and read as above HEART SCORE: Hx: high/mod/low suspicion: 0 ECG: ST depression/nonspecific changes/normal: 0 Age: Greater than 65/45-64/less than 45: 2 Risk factors: (Hypertension, hyperlipidemia, diabetes, coronary disease, tobacco use, cocaine use): 2 Troponin: Greater than 2 times normal limits/1-2 times normal limits/normal: 2 Total: 6 Consultation: A consultation was placed with the hospitalist. The case was discussed and diagnostics were reviewed. The patient was evaluated in the ER for further treatment. This appears to be consistent with symptomatic anemia and a type II MO and pneumonia. Patient was consented to blood and typed and crossmatched for 2 units irradiated as he is a renal transplant patient. Patient was started on antibiotics for pneumonia. Labs and diagnostics were independent reviewed by myself. Medicine was consulted and case was discussed. He will be admitted to the medical service. By the evaluation outlined above emergent etiologies such as CHF, pulmonary embolism, reactive airway disease, pneumothorax, musculoskeletal, as well as others were deemed relatively unlikely. The pt informed about the findings as listed above. All questions were answered and pleased with the treatment. The chart was completed utilizing [employer] Speech voice recognition software. Grammatical errors, random word insertions, pronoun errors, and incomplete sentences are an occassional consequence of this system due to software limitations, ambient noise, and hardware issues. Any formal questions or concerns about the content, text, or information contained within the body of this dictation should be directly addressed to the physician dermatology physician assistant for clarification. Impression & Plan Symptomatic anemia, Acute non-ST elevation myocardial infarction (NSTEMI) Discharge Plan Visit Data Chief Complaint: Shortness of Breath/Dyspnea Stated Complaint: SOB - HAS A COLD ED Provider: Melissa Sanchez ED Midlevel Provider: Mikayla Infante Discharge Problem: Symptomatic anemia, Acute non-ST elevation myocardial infarction (NSTEMI) Patient Disposition: Admitted As Inpatient Condition: Fair Forms Stand Alone Forms: [facility] [place] [employer] Prescriptions Prescriptions: No Action prednisone 5 mg tablet 5 mg PO DAILY Qty: 90 3RF mycophenolate mofetil 250 mg capsule 500 mg PO BID Qty: 360 3RF aspirin 81 mg tablet,chewable 81 mg PO DAILY Qty: 90 3RF magnesium oxide 500 mg tablet 500 mg PO DAILY Qty: 90 3RF tacrolimus 1 mg capsule 2 mg PO BID lisinopril 10 mg tablet 10 mg PO DAILY Qty: 90 3RF Rx Instructions: Hypertension, stage 3 chronic kidney disease. amoxicillin 500 mg capsule 2,000 mg PO DIRECTED PRN (Reason: PRIOR TO DENTAL PROCEDURES) multivitamin Tablet 1 tab PO DAILY pantoprazole 40 mg tablet,delayed release (DR/EC) 40 mg PO DAILY Rx Instructions: TAKE 1 TABLET BY MOUTH EVERY DAY levothyroxine 125 mcg tablet 125 mcg PO DAILY Rx Instructions: TAKE 1 TABLET BY MOUTH EVERY DAY Referrals Referrals: Santos Rivers MD [Primary Care Provider] -
[2023-01-31 03:10] LABS: iSTAT Creatinine 1.6 mg/dl (0.6-1.3); iSTAT Hemoglobin 7.5 g/dl (14.0-18.0); iSTAT Ionized Calcium 1.19 mmol/l (1.12-1.32); iSTAT Potassium 4.3 mmol/L (3.3-5.0)
[2023-01-31 03:11] LABS: Basophils # (auto) 0.03 K/uL (0-0.2); Basophils % (auto) 0.2 %; Eosinophils # (auto) 0.19 K/uL (0-0.50); Eosinophils % (auto) 1.5 %; Hemoglobin 7.5 g/dl (14.0-18.0); Immature Granulocytes # (auto) 0.09 K/uL (0.01-0.20); Immature Granulocytes % (auto) 0.7 %; Lymphocytes # (auto) 0.57 K/uL (1.2-3.4); Lymphocytes % (auto) 4.5 %; Mean Corpuscular Hemoglobin 35.2 pg (25.0-34.0); Mean Corpuscular Hgb Conc 32.6 g/dL (32.0-36.0); Mean Platelet Volume 9.2 fL (9.4-12.4); Monocytes # (auto) 1.03 K/uL (0.11-0.59); Monocytes % (auto) 8.1 %; Neutrophils # (auto) 10.82 K/uL (1.40-6.50); Platelet Count 284 K/uL (130-400); RDW Coefficient of Variation 12.5 % (11.5-14.5); Red Blood Count 2.13 M/uL (4.70-6.10); White Blood Count 12.73 K/ul (4.8-10.8)
[2023-01-31 03:20] LABS: Appearance Urine Clear (Clear); Bacteria Urine Automated Negative (Negative); Blood Urine Negative (Negative); Color Urine Orange; Glucose Urine UA Negative (Negative); Ketones Urine Trace (Negative); Leukocyte Esterase Urine Trace (Negative); Nitrite Urine Positive (Negative); Protein Urine Negative (Negative); RBC Urine Automated 0-4 /hpf (0-4); Specific Gravity Urine 1.021 (1.000-1.030); Urobilinogen Urine Positive (Negative)
[2023-01-31 03:23] LABS: Bilirubin Urine 1+ (Negative)
[2023-01-31 03:25] LABS: Alanine Aminotransferase 57 U/L (7-52); Albumin Level 3.7 gm/dl (3.4-5.0); Alkaline Phosphatase 146 U/L (34-104); Anion Gap 9 (3-11); Aspartate Aminotransferase 55 U/L (13-39); BUN Creatinine Ratio 23.8 (10-20); Bilirubin,Total 1.9 mg/dl (0.2-1.0); Blood Urea Nitrogen 34 mg/dl (6-23); Calcium 8.7 mg/dl (8.6-10.3); Carbon Dioxide 21 mmol/L (21-32); Chloride 104 mmol/L (98-107); Est GFR (African American) 60.4 ml/min; Est GFR (Non-African American) 52.1 ml/min; Globulin 3.7 gm/dl (2.5-4.0); Glucose 104 mg/dl (70-99(Fasting)); Potassium 4.1 mmol/L (3.5-5.1); Sodium 134 mmol/L (136-145); Total Protein 7.4 gm/dl (6.0-8.3)
[2023-01-31] MEDS ORDERED: PANTOprazole 80 MG in DEXTROSE 5% 100 ML IV STA (03:25)
[2023-01-31] MEDS ORDERED: ONDANSETRON INJ 2 MG/ML 2 ML VIAL IV STA (03:25)
[2023-01-31] MEDS ORDERED: SODIUM CHLORIDE 0.9% 250 ML IV PRN (03:25)
[2023-01-31] MEDS ORDERED: FAMOTIDINE 20MG IV PUSH 20 MG/5 ML SYR IV STA (03:25)
[2023-01-31 03:32] LABS: Troponin I High Sensitivity 38.9 pg/ml (0-20)
[2023-01-31] MEDS ORDERED: PIPERACILLIN/TAZOBACTAM 4.5 GM in DEXTROSE 5% 100 ML IV ONE (03:56)
[2023-01-31] MEDS ORDERED: OPTIRAY 320 500ml IV ONE (03:56)
[2023-01-31 04:05] LABS: Adenovirus PCR Not Detected (NotDetected); Bordetella parapertussis PCR Not Detected (NotDetected); Bordetella pertussis PCR Not Detected (NotDetected); Chlamydia pneumoniae PCR Not Detected (NotDetected); Coronavirus 229E PCR Not Detected (NotDetected); Coronavirus CoV-2 (COVID19)PCR Not Detected (NotDetected); Coronavirus HKU1 PCR Not Detected (NotDetected); Coronavirus NL63 PCR Not Detected (NotDetected); Coronavirus OC43PCR Not Detected (NotDetected); Human Metapneumovirus PCR Not Detected (NotDetected); Influenza A PCR Not Detected (NotDetected); Influenza B PCR Not Detected (NotDetected); Mycoplasma pneumoniae PCR Not Detected (NotDetected); Parainfluenza Virus 1 PCR Not Detected (NotDetected); Parainfluenza Virus 2 PCR Not Detected (NotDetected); Parainfluenza Virus 3 PCR Not Detected (NotDetected); Parainfluenza Virus 4 PCR Not Detected (NotDetected); Respiratory Syncytial VirusPCR Not Detected (NotDetected); Rhinovirus/Enterovirus PCR Not Detected (NotDetected)
[2023-01-31 04:11] LABS: Polychromasia 1+
--- NOTE | 2023-01-31 04:26 | CT Scan Report ---
Exam(s): CTA CHEST IV Amt: 112 ML OPTIRAY 320 EXAM: CT Angiography Chest With Intravenous Contrast CLINICAL HISTORY: Reason for exam: PE. TECHNIQUE: Axial computed tomographic angiography images of the chest with intravenous contrast. Automated exposure control was utilized for the study. A dose lowering technique was utilized adhering to the principles of ALARA. MIP reconstructed images were created and reviewed. COMPARISON: No relevant prior studies available. FINDINGS: Pulmonary arteries: No pulmonary embolism. Aorta: Aneurysmal ascending thoracic aorta measuring up to 4.9 cm. No dissection. Lungs: Bilateral lower lobe airspace opacities suggestive of pneumonia. Pleural space: Unremarkable. Heart: Severe coronary artery calcifications. Mediastinum: Small hiatal hernia. Bones/joints: No acute fracture. Soft tissues: Unremarkable. Lymph nodes: Unremarkable. Adrenals: Left adrenal nodule with irregular borders measuring 2.7 x 2. 5 cm only partially imaged on this study. IMPRESSION: 1. No pulmonary embolism. 2. Aneurysmal ascending thoracic aorta measuring up to 4.9 cm. No dissection. 3. Bilateral lower lobe airspace opacities suggestive of pneumonia. 4. Small hiatal hernia. 5. Severe coronary artery calcifications. 6. Left adrenal nodule with irregular borders measuring 2.7 x 2.5 cm only partially imaged on this study. Consider adrenal protocol CT or MRI for characterization. Electronically signed by: Emery Boudreaux MD 01/31/23 04:25 AM
[2023-01-31] MEDS ORDERED: PIPERACILLIN/TAZOBACTAM 4.5 GM/120ML D5W IV ONE (04:39)
--- NOTE | 2023-01-31 05:06 | History & Physical Report ---
Date of Service January 31, 2023 Assessment & Plan (1) Pneumonia: Plan: Patient with recent URI with improvement of symptoms overall. Now with one day of worsening SOB. Has bilateral lower lobe airspace opacities suggestive of PNA. Patient is on immunosuppressive therapy for his renal transplant - Tacrolimus, mycophenolate mofetil and prednisone. Presently afebrile, HD stable, NAD. No respiratory distress - adequate oxygenation on room air. Respiratory Biofire panel is NEGATIVE. -Zosyn initiated in the ER - will continue -Check blood cultures x 2 given patient's immunocompromised status -Check MRSA nare -Gentle IVF -Tylenol PRN (2) Abnormal LFTs: Plan: Mildly elevated AST, ALT, AP and Tbili. Patient denies abdominal complaints -Repeat LFTs in AM (3) Symptomatic anemia: Plan: Acute on chronic anemia with Hgb=7.5 and Hct=23. Decreased from 9.5 and 28.9, respectively, on 01/13/23. Elevated PMN=452 baseline. Patient denies blood loss. Mild elevation in Tbili - ?hemolysis -Patient to receive 2u PRBCs -Repeat CBC -Check peripheral smear (4) Hx of kidney transplant: Plan: Patient with history of FSGS s/p renal transplant. He is on Tacrolimus, mycophenolate mofetil and Prednisone therapy -Continue home medications for now. Should patient clinically worsen from infection would hold immunosuppressive therapy (5) Retroperitoneal mass: Plan: Patient with known retroperitoneal mass - present on CT from 03/23/22 as a 3.1 x 2.4 cm infiltrative appearing retroperitoneal soft tissue lesion between the left renal gland and the [place] left kidney. Additionally, there are numerous similar appearing infiltrative lesions scattered throughout the mesentery. These are pathologically indeterminant but have increased in size and conspicuity as compared to 08/02/2021. Although this could potentially be on an infectious/inflammatory basis, a neoplastic process such as post transplant lymphoproliferative disorder is the diagnosis of exclusion. Tissue sampling will likely be required for definitive diagnosis. This issue has been addressed by patient's PCP. He is to have a biopsy performed at [facility] in [place]. (6) Aneurysm: Plan: Aneurysmal ascending thoracic aorta measuring up to 4.9cm without dissection noted on CTA. No previous vascular imaging of the thoracic aorta available -routine monitoring, serial imaging (7) Chronic kidney disease, stage 3a: Plan: Mild increase in BUN and Cr. Possibly secondary to volume depletion given patient's recent illness. Electrolytes are WNL -Gentle IVF - LR at 80mL/hr x 1L -Transfusion as above -Avoid nephrotoxic agents -Renal dosing where needed -Repeat chemistry in AM 02/01/23 (8) History of esophageal reflux: Plan: Chronic. Patient denies abdominal pain, melena or hematochezia. Hemoccult test performed in the ER is NEGATIVE. -Continue Protonix 40mg po daily (9) Benign essential hypertension: Plan: Blood pressure well controlled at present - 127/95 -Will hold Lisinopril given mild increase in Cr -Continue to monitor (10) Hypothyroidism: Plan: TSH WNL on 01/10/23 at 0.461 -Continue Synthroid 125mcg po daily History of Present Illness Chief Complaint: Shortness of breath, fatigue Primary Care Provider: Santos Rivers MD Gumaro Mandel is a 62yo male with history of FSGS s/p renal transplant on immunosuppressive therapy with Mycphenolate mofetil, Tacrolimus and Prednisone presenting with SOB. Patient reports having URI symptoms approximately 1 week ago - predominantly congestion and productive cough. He reports his symptoms have overall been improving until yesterday when he experienced worsening SOB, STOCK and generalized weakness and fatigue. He denies fever, chills, chest pain, palpitations, nausea, vomiting, diarrhea or constipation. No urinary complaints, no pain over transplant. No melena/hematochezia, no dizziness or syncope. Patient bumped his left elbow and notes significant pain and decreased mobility. In the ER he is afebrile, HD stable, NAD. ER Course: Zosyn - ordered - not yet given Albuterol 3mL neb Pepcid 20mg IV Zofran 4mg IV Protonix 80mg IV Allergies Allergy/AdvReac Type Severity Reaction Status Date / Time clopidogrel [From Plavix] Allergy Unknown Unknown Verified 01/31/23 02:51 Fftvzma-ZSX-DtS Reductase AdvReac Intermediate myalgias Verified 01/31/23 02:51 Inhibitor [Gfyhqld-Avq-Ieo Reductase Inhibitor] Home Medications Medication Instructions Recorded Confirmed Type aspirin 81 mg chewable tablet 81 mg PO DAILY #90 tabs 06/06/19 01/31/23 Rx magnesium oxide 500 mg tablet 500 mg PO DAILY #90 tabs 06/06/19 01/31/23 Rx prednisone 5 mg tablet 5 mg PO DAILY #90 tabs 07/23/19 01/31/23 Rx mycophenolate mofetil 250 mg 500 mg PO BID #360 caps 05/29/20 01/31/23 Rx capsule amoxicillin 500 mg capsule 2,000 mg PO DIRECTED PRN PRIOR 07/29/20 01/31/23 History TO DENTAL PROCEDURES multivitamin 1 tab PO DAILY 08/02/21 01/31/23 History lisinopril 10 mg tablet 10 mg PO DAILY #90 tabs 07/08/22 01/31/23 Rx tacrolimus 1 mg capsule, 2 mg PO BID 07/08/22 01/31/23 History immediate-release levothyroxine 125 mcg tablet 125 mcg PO DAILY 01/31/23 01/31/23 History pantoprazole 40 mg tablet,delayed 40 mg PO DAILY 01/31/23 01/31/23 History release Past Med/Surg History Medical History Abdominal aortic aneurysm Anemia Benign essential hypertension Chronic kidney disease, stage 3a CVA (cerebral vascular accident) FSGS (focal segmental glomerulosclerosis) History of esophageal reflux Hyperlipidemia Hypothyroidism Obesity Osteoporosis Proteinuria Vitamin D deficiency Surgical History History of colonoscopy Family History Grandmother (Maternal) Alzheimer disease Mother Depression Denies family history of Ovarian cancer Prostate cancer Diabetes Heart disease Myocardial infarction Breast cancer Lung cancer COPD (chronic obstructive pulmonary disease) Colorectal cancer Hypertension Stroke Social History Smoking Status: Never smoker Second Hand Exposure: No; Do You Dip or Chew Tobacco: No; Hx Alcohol Use: Yes Alcohol type: beer Alcohol Intake Frequency: Monthly or Less Hx Substance Use: No 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: Estonian Communication Ability: Effective Visual Impairment: No Limitations Hearing Ability: Normal Timber Watchman Required: No Beliefs That Will Affect Care: None marital status: Current Living Situation: Spouse current occupational status: employed current occupation: [employer] How many Children do You have: 1 Feels Safe at Home: Yes Childhood Exposure to Second-Hand Smoke: No Dental Care, Regularly: Yes Seatbelt Use: sometimes Sunscreen Use: No Assistive Devices: None Review of Systems Review of Systems: All systems reviewed & are unremarkable except as noted in HPI & below Physical Exam Physical Exam: General: patient resting comfortably, NAD, non-toxic in appearance, AA&O x 4, generalized weakness, difficulty repositioning himself in bed Skin: warm, dry, intact, no rashes or lesions HEENT: NC/AT, PERRL, EOMI, anicteric sclera, conjunctiva without injection, external ear normal to inspection and nontender, nares patent, slightly dry mucus membranes, dentition intact, no oropharyngeal lesions, neck supple, trachea midline, no LAD, no thyromegaly, no JVD Heart: +S1/S2, regular, no m/r/g Lungs: equal air entry bilaterally, no rales/rhonchi/wheezes Abd: +BS, soft, NT/ND, no masses/organomegaly/ascites, no RUQ pain Ext: warm, 2+ pulses in UE/LE bilaterally, no clubbing/cyanosis or edema Neuro: nonfocal, patient AA&O x 4, speech intact, no facial droop, moving all extremities on command with equal strength 5/5 Results & Data Results & Data Vital Signs (Past 12 Hours) Vital Signs Temp Pulse Pulse Resp BP BP Pulse Ox 01/31/23 03:00 86 01/31/23 03:10 100 01/31/23 02:55 89 18 119/76 100 01/31/23 02:35 36.4 C L 91 H 18 111/71 100 O2 Del Method 01/31/23 03:00 01/31/23 03:10 Room Air 01/31/23 02:55 Room Air 01/31/23 02:35 Room Air Laboratory Results Laboratory Results WBC 12.73 K/ul (4.8-10.8) H 01/31/23 02:50 RBC 2.13 M/uL (4.70-6.10) L 01/31/23 02:50 Hgb 7.5 g/dl (14.0-18.0) L 01/31/23 02:50 POC Hgb 7.5 g/dl (14.0-18.0) L 01/31/23 02:58 Hct 23.0 % (42.0-52.0) L 01/31/23 02:50 POC Hct 22 % (42-52) L 01/31/23 02:58 MCV 108.0 fL (80.0-100.0) H 01/31/23 02:50 MCH 35.2 pg (25.0-34.0) H 01/31/23 02:50 MCHC 32.6 g/dL (32.0-36.0) 01/31/23 02:50 RDW Std Deviation 48.0 fL (36.4-46.3) H 01/31/23 02:50 RDW Coeff of Jaye 12.5 % (11.5-14.5) 01/31/23 02:50 Plt Count 284 K/uL (130-400) 01/31/23 02:50 MPV 9.2 fL (9.4-12.4) L 01/31/23 02:50 Immature Gran % (Auto) 0.7 % 01/31/23 02:50 Neut % (Auto) 85.0 % 01/31/23 02:50 Lymph % (Auto) 4.5 % 01/31/23 02:50 [place] % (Auto) 8.1 % 01/31/23 02:50 Eos % (Auto) 1.5 % 01/31/23 02:50 Baso % (Auto) 0.2 % 01/31/23 02:50 Neut # (Auto) 10.82 K/uL (1.40-6.50) H 01/31/23 02:50 Lymph # (Auto) 0.57 K/uL (1.2-3.4) L 01/31/23 02:50 [place] # (Auto) 1.03 K/uL (0.11-0.59) H 01/31/23 02:50 Eos # (Auto) 0.19 K/uL (0-0.50) 01/31/23 02:50 Baso # (Auto) 0.03 K/uL (0-0.2) 01/31/23 02:50 Immature Gran # (Auto) 0.09 K/uL (0.01-0.20) 01/31/23 02:50 Polychromasia 1+ 01/31/23 02:50 POC Sodium 137 mmol/L (135-144) 01/31/23 02:58 Sodium 134 mmol/L (136-145) L 01/31/23 02:50 POC Potassium 4.3 mmol/L (3.3-5.0) 01/31/23 02:58 Potassium 4.1 mmol/L (3.5-5.1) 01/31/23 02:50 POC Chloride 106 mmol/L (101-112) 01/31/23 02:58 Chloride 104 mmol/L (98-107) 01/31/23 02:50 Carbon Dioxide 21 mmol/L (21-32) 01/31/23 02:50 POC Total CO2 20 mmol/L (24-31) L 01/31/23 02:58 Anion Gap 9 (3-11) 01/31/23 02:50 POC Anion Gap 16.0 mmol/L (16-25) 01/31/23 02:58 POC BUN 29 mg/dl (7-18) H 01/31/23 02:58 BUN 34 mg/dl (6-23) H 01/31/23 02:50 Creatinine 1.43 mg/dl (0.6-1.4) H 01/31/23 02:50 POC Creatinine 1.6 mg/dl (0.6-1.3) H 01/31/23 02:58 Est Cr Clr Drug Dosing Not Reportable 01/31/23 02:50 Est GFR ( Amer) 60.4 ml/min 01/31/23 02:50 Est GFR (Non-Af Amer) 52.1 ml/min 01/31/23 02:50 BUN/Creatinine Ratio 23.8 (10-20) H 01/31/23 02:50 Glucose 104 mg/dl (70-99(Fasting)) H 01/31/23 02:50 POC Glucose (other) 111 mg/dl (70-99) H 01/31/23 02:58 Calcium 8.7 mg/dl (8.6-10.3) 01/31/23 02:50 POC Ioniz Calcium [place] 1.19 mmol/l (1.12-1.32) 01/31/23 02:58 Total Bilirubin 1.9 mg/dl (0.2-1.0) H 01/31/23 02:50 AST 55 U/L (13-39) H 01/31/23 02:50 ALT 57 U/L (7-52) H 01/31/23 02:50 Alkaline Phosphatase 146 U/L (34-104) H 01/31/23 02:50 Troponin I High Sens 38.9 pg/ml (0-20) H 01/31/23 02:50 B-Natriuretic Peptide 180 pg/ml (0-100) H 01/31/23 02:50 Total Protein 7.4 gm/dl (6.0-8.3) 01/31/23 02:50 Albumin 3.7 gm/dl (3.4-5.0) 01/31/23 02:50 Globulin 3.7 gm/dl (2.5-4.0) 01/31/23 02:50 Albumin/Globulin Ratio 1.0 (0.9-2) 01/31/23 02:50 Urine Color [place] 01/31/23 03:00 Urine Appearance Clear (Clear) 01/31/23 03:00 Urine pH 5.0 (4.5-7.5) 01/31/23 03:00 Ur Specific [place] 1.021 (1.000-1.030) 01/31/23 03:00 Urine Protein Negative (Negative) 01/31/23 03:00 Urine Glucose (UA) Negative (Negative) 01/31/23 03:00 Urine Ketones Trace (Negative) H 01/31/23 03:00 Urine Blood Negative (Negative) 01/31/23 03:00 Urine Nitrite Positive (Negative) A 01/31/23 03:00 Urine Bilirubin 1+ (Negative) H 01/31/23 03:00 Urine Urobilinogen Positive (Negative) H 01/31/23 03:00 Ur Leukocyte Esterase Trace (Negative) H 01/31/23 03:00 Urine WBC (Auto) 1-5 /hpf (0-5) 01/31/23 03:00 Urine RBC (Auto) 0-4 /hpf (0-4) 01/31/23 03:00 U Hyaline Cast (Auto) 5-10 /lpf (0-5) H 01/31/23 03:00 U Epithel Cells (Auto) 10-20 /lpf (0-5) H 01/31/23 03:00 Urine Bacteria (Auto) Negative (Negative) 01/31/23 03:00 Adenovirus (PCR) Not Detected (NotDetected) 01/31/23 03:00 B. pertussis DNA (PCR) Not Detected (NotDetected) 01/31/23 03:00 B.parapertussis DNA PCR Not Detected (NotDetected) 01/31/23 03:00 C. pneumoniae DNA (PCR) Not Detected (NotDetected) 01/31/23 03:00 Coronavirus OC43 (PCR) Not Detected (NotDetected) 01/31/23 03:00 Coronavirus HKU1 (PCR) Not Detected (NotDetected) 01/31/23 03:00 Coronavirus 229E (PCR) Not Detected (NotDetected) 01/31/23 03:00 SARS-CoV-2 (PCR) Not Detected (NotDetected) 01/31/23 03:00 Coronavirus NL63 (PCR) Not Detected (NotDetected) 01/31/23 03:00 Human Metapneumovir PCR Not Detected (NotDetected) 01/31/23 03:00 Influenza Type A (PCR) Not Detected (NotDetected) 01/31/23 03:00 Influenza Type B (PCR) Not Detected (NotDetected) 01/31/23 03:00 M. pneumoniae (PCR) Not Detected (NotDetected) 01/31/23 03:00 Parainfluenza 1 (PCR) Not Detected (NotDetected) 01/31/23 03:00 Parainfluenza 2 (PCR) Not Detected (NotDetected) 01/31/23 03:00 Parainfluenza 3 (PCR) Not Detected (NotDetected) 01/31/23 03:00 Parainfluenza 4 (PCR) Not Detected (NotDetected) 01/31/23 03:00 RSV (PCR) Not Detected (NotDetected) 01/31/23 03:00 Entero/Rhino (PCR) Not Detected (NotDetected) 01/31/23 03:00 Crossmatch See Detail 01/31/23 04:04 Impressions Chest CTA 01/31/23 02:44 Exam(s): CTA CHEST IV Amt: 112 ML OPTIRAY 320 EXAM: CT Angiography Chest With Intravenous Contrast CLINICAL HISTORY: Reason for exam: PE. TECHNIQUE: Axial computed tomographic angiography images of the chest with intravenous contrast. Automated exposure control was utilized for the study. A dose lowering technique was utilized adhering to the principles of ALARA. MIP reconstructed images were created and reviewed. COMPARISON: No relevant prior studies available. FINDINGS: Pulmonary arteries: No pulmonary embolism. Aorta: Aneurysmal ascending thoracic aorta measuring up to 4.9 cm. No dissection. Lungs: Bilateral lower lobe airspace opacities suggestive of pneumonia. Pleural space: Unremarkable. Heart: Severe coronary artery calcifications. Mediastinum: Small hiatal hernia. Bones/joints: No acute fracture. Soft tissues: Unremarkable. Lymph nodes: Unremarkable. Adrenals: Left adrenal nodule with irregular borders measuring 2.7 x 2. 5 cm only partially imaged on this study. IMPRESSION: 1. No pulmonary embolism. 2. Aneurysmal ascending thoracic aorta measuring up to 4.9 cm. No dissection. 3. Bilateral lower lobe airspace opacities suggestive of pneumonia. 4. Small hiatal hernia. 5. Severe coronary artery calcifications. 6. Left adrenal nodule with irregular borders measuring 2.7 x 2.5 cm only partially imaged on this study. Consider adrenal protocol CT or MRI for characterization. Electronically signed by: Emery Boudreaux MD 01/31/23 04:25 AM ECG Additional Comments: EKG with NSR at 87, Left axis deviation, RO=210, MWX=726, SNd=632, RBBB, no change from prior study. No acute ischemia PG Care Time/CCT Total # of Minutes Spent Total Time Spent with Patient: Total time spent is greater than 50% in coordination of care (as documented) at patient's floor/unit and/or counseling patient: Coding Level of Care Code 98366 INT INP/OBS CARE 3/75MIN Diagnoses Pneumonia J18.9 Abnormal LFTs R79.89 Symptomatic anemia D64.9 Hx of kidney transplant Z94.0 Retroperitoneal mass R19.00 Aneurysm I72.9 Chronic kidney disease, stage 3a N18.31 History of esophageal reflux Z87.19 Benign essential hypertension I10 Hypothyroidism E03.8 Hypothyroidism type: other (10) Hypothyroidism Hypothyroidism type: other Qualified Code(s): E03.8 - Other specified hypothyroidism
[2023-01-31] MEDS ORDERED: ONDANSETRON INJ 2 MG/ML 2 ML VIAL IV PRN (06:23)
[2023-01-31] MEDS ORDERED: LACTATED RINGER'S 1,000 ML IV SCH (06:23)
[2023-01-31] MEDS ORDERED: Patient's HEIGHT &/or WEIGHT Needed SCH (06:30)
--- NOTE | 2023-01-31 07:26 | XRay Report ---
XR chest 1V portable HISTORY: 62 years-old Male Dyspnea acute shortness of breath COMPARISON: CTA chest of same day TECHNIQUE: AP view of the chest FINDINGS: Cardiac silhouette is enlarged. No pneumothorax, pleural effusion, or overt pulmonary edema. Mild bib asilar opacities. Degenerative changes of the shoulders and spine. IMPRESSION: 1. Cardiomegaly without pulmonary edema. 2. Mild bibasilar consolidation is better seen on the CTA chest of same day and is suggestive of pneu monia versus aspiration pneumonitis. ACT 112: Negative or not required by law. The above report was generated using voice recognition software. It may contain grammatical, syntax o r spelling errors. Electronically signed by: Darion Garcia M.D. 01/31/2023 7:24 AM
[2023-01-31] MEDS: ACETAMINOPHEN 325 MG TAB PO PRN ×2 (07:36→20:02)
[2023-01-31] MEDS: LEVOTHYROXINE SODIUM 125 MCG TABLET PO SCH (07:37)
[2023-01-31] MEDS: ASPIRIN 81 MG CHEW PO SCH (07:37)
[2023-01-31] MEDS: MYCOPHENOLATE MOFETIL 250 MG CAP PO SCH ×2 (07:38→20:02)
[2023-01-31] MEDS: TACROLIMUS 1 MG CAP PO SCH ×2 (07:38→20:02)
[2023-01-31] MEDS: PANTOprazole 40 MG TAB PO SCH (07:38)
[2023-01-31] MEDS: predniSONE 5 MG TAB PO SCH (07:38)
--- NOTE | 2023-01-31 07:58 | Hospitalist Progress Note ---
Date of Service January 31, 2023 Assessment & Plan (1) Pneumonia: Plan: acute bilateral pneumonia on presentation concern for gram negative, MRSA screen pending immunosuppressive therapy for his renal transplant - Tacrolimus, mycophenolate mofetil and prednisone. Respiratory Biofire panel is NEGATIVE. -Zosyn initiated in the ER - will continue -Check blood cultures x 2 (2) Abnormal LFTs: Plan: Mildly elevated AST, ALT, AP and Tbili. Patient denies abdominal complaints -Repeat LFTs in AM (3) Symptomatic anemia: Plan: Acute on chronic anemia with Hgb=7.5 and Hct=23. Decreased from 9.5 and 28.9, respectively, on 01/13/23. Elevated WZA=820 baseline. Patient denies blood loss. Mild elevation in Tbili - ?hemolysis -Patient to receive 2u PRBCs -Repeat CBC -Check peripheral smear (4) Hx of kidney transplant: Plan: Patient with history of FSGS s/p renal transplant. He is on Tacrolimus, mycophenolate mofetil and Prednisone therapy -Continue home medications for now. Should patient clinically worsen from infection would hold immunosuppressive therapy (5) Retroperitoneal mass: Plan: Patient with known retroperitoneal mass - present on CT from 03/23/22 as a 3.1 x 2.4 cm infiltrative appearing retroperitoneal soft tissue lesion between the left renal gland and the [place] left kidney. Additionally, there are numerous similar appearing infiltrative lesions scattered throughout the mesentery. These are pathologically indeterminant but have increased in size and conspicuity as compared to 08/02/2021. Although this could potentially be on an infectious/inflammatory basis, a neoplastic process such as post transplant lymphoproliferative disorder is the diagnosis of exclusion. Patient states that he has had a biopsy by [facility] transplant physicians in [place] the biopsy came back inconclusive at that time they recommended invasive tissue sample taking although the patient stated that he is unsure he would treat if it were to come back something undesirable subsequently he wished to employ conservative measures following the mass on imaging and read biopsing if it substantially changes. (6) Aneurysm: Plan: Aneurysmal ascending thoracic aorta measuring up to 4.9cm without dissection noted on CTA. No previous vascular imaging of the thoracic aorta available -routine monitoring, serial imaging (7) Chronic kidney disease, stage 3a: Plan: Mild increase in BUN and Cr. Possibly secondary to volume depletion given patient's recent illness. Electrolytes are WNL - (8) History of esophageal reflux: Plan: Chronic. Patient denies abdominal pain, melena or hematochezia. Hemoccult test performed in the ER is NEGATIVE. -Continue Protonix 40mg po daily (9) Benign essential hypertension: Plan: Blood pressure well controlled at present - 127/95 -Will hold Lisinopril given mild increase in Cr - (10) Hypothyroidism: Plan: TSH WNL on 01/10/23 at 0.461 -Continue Synthroid 125mcg po daily Admission and Anticipated Discharge Date Admission Date: January 31, 2023 Subjective Patient seen and examined his hospital room shortly after arriving to the floor he is in no significant distress has only been having nonproductive coughing and no significant mucus production of late. Physical Exam Physical Exam: Awake alert appropriate Cardiac exam is regular Lungs have basilar rhonchi which clear with coughing Abdomen NABS soft nontender Extremities are without edema Results & Data Results & Data Vital Signs (Past 12 Hours) Vital Signs Temp Pulse Pulse Pulse Resp BP BP 01/31/23 07:34 98.2 F 86 16 110/77 01/31/23 06:23 98.1 F 88 18 120/77 01/31/23 06:24 98.1 F 88 18 120/77 01/31/23 06:03 97 H 18 01/31/23 03:43 88 16 127/95 01/31/23 03:00 86 01/31/23 03:10 01/31/23 02:55 89 18 119/76 01/31/23 02:35 97.5 F L 91 H 18 111/71 Pulse Ox O2 Del Method 01/31/23 07:34 95 Room Air 01/31/23 06:23 100 Room Air 01/31/23 06:24 100 Room Air 01/31/23 06:03 99 Room Air 01/31/23 03:43 94 Room Air 01/31/23 03:00 01/31/23 03:10 100 Room Air 01/31/23 02:55 100 Room Air 01/31/23 02:35 100 Room Air PG Care Time/CCT Total # of Minutes Spent Total Time Spent with Patient: Total time spent is greater than 50% in coordination of care (as documented) at patient's floor/unit and/or counseling patient: Coding Level of Care Code None Diagnoses Pneumonia J18.9 Abnormal LFTs R79.89 Symptomatic anemia D64.9 Hx of kidney transplant Z94.0 Retroperitoneal mass R19.00 Aneurysm I72.9 Chronic kidney disease, stage 3a N18.31 History of esophageal reflux Z87.19 Benign essential hypertension I10 Hypothyroidism E03.8 Hypothyroidism type: other (10) Hypothyroidism Hypothyroidism type: other Qualified Code(s): E03.8 - Other specified hypothyroidism
[2023-01-31 09:12] LABS: Magnesium 1.3 mg/dl (1.7-2.4); Phosphorus 3.1 mg/dl (2.5-4.9)
[2023-01-31] MEDS: PIPERACILLIN/TAZOBACTAM 4.5 GM in DEXTROSE 5% 100 ML IV SCH ×2 (09:40→17:08)
--- NOTE | 2023-01-31 10:34 | Electrocardiogram Report ---
Test Reason : Blood Pressure : / mmHG Vent. Rate : 087 BPM Atrial Rate : 087 BPM P-R Int : 142 ms QRS Dur : 150 ms QT Int : 416 ms P-R-T Axes : 029 -30 012 degrees QTc Int : 500 ms Normal sinus rhythm Left axis deviation Right bundle branch block Minimal voltage criteria for LVH, may be normal variant Abnormal ECG When compared with ECG of 12-MAY-2022 07:24, No significant change was found Confirmed by Kannan Otto ([id number]) on 01/31/2023 10:34:08 AM Referred By: REFERRED SELF Confirmed By:Jerrod Otto
--- NOTE | 2023-01-31 10:54 | XRay Report ---
XR elbow LT 2V CLINICAL HISTORY: minor trauma, ongoing pain TECHNIQUE: 2 views of the left elbow were obtained. Comparison: None available at the time of this dictation. FINDINGS: There is no evidence of an acute fracture. Joint spaces are well-preserved. The alignment is anatomic . There is no prominence of the anterior or posterior fat pads to suggest an effusion. Vascular calci fications are seen. IMPRESSION: No evidence of acute fracture or dislocation. ACT 112: Negative or not required by law. Electronically signed by: Chris Serra M.D. 01/31/2023 10:53 AM
[2023-01-31] MEDS: MAGNESIUM SULFATE / D5W 1 GM/100 ML BAG IV SCH ×4 (12:17→17:58)
[2023-01-31] MEDS: HYDROCORTISONE SOD 50 MG in SYRINGE 0 ML IV SCH ×2 (12:18→19:56)
[2023-02-01] MEDS: PIPERACILLIN/TAZOBACTAM 4.5 GM in DEXTROSE 5% 100 ML IV SCH ×3 (01:45→17:46)
[2023-02-01] MEDS: HYDROCORTISONE SOD 50 MG in SYRINGE 0 ML IV SCH (05:11)
[2023-02-01] MEDS: ACETAMINOPHEN 325 MG TAB PO PRN ×4 (05:13→21:31)
[2023-02-01] MEDS: MYCOPHENOLATE MOFETIL 250 MG CAP PO SCH ×2 (07:09→20:26)
[2023-02-01] MEDS: ASPIRIN 81 MG CHEW PO SCH (07:09)
[2023-02-01] MEDS: TACROLIMUS 1 MG CAP PO SCH ×2 (07:09→20:26)
[2023-02-01] MEDS: PANTOprazole 40 MG TAB PO SCH (07:09)
[2023-02-01] MEDS: predniSONE 5 MG TAB PO SCH (07:10)
[2023-02-01] MEDS: LEVOTHYROXINE SODIUM 125 MCG TABLET PO SCH (08:53)
[2023-02-01 09:06] LABS: Hematocrit (blood only) 21.1 % (42.0-52.0); Hemoglobin 6.8 g/dl (14.0-18.0); Mean Corpuscular Hemoglobin 35.1 pg (25.0-34.0); Mean Corpuscular Hgb Conc 32.2 g/dL (32.0-36.0); Mean Corpuscular Volume 108.8 fL (80.0-100.0); Mean Platelet Volume 9.4 fL (9.4-12.4); Platelet Count 295 K/uL (130-400); RDW Coefficient of Variation 12.5 % (11.5-14.5); RDW Standard Deviation 47.6 fL (36.4-46.3); Red Blood Count 1.94 M/uL (4.70-6.10); White Blood Count 13.22 K/ul (4.8-10.8)
[2023-02-01 09:11] LABS: Albumin Level 3.4 gm/dl (3.4-5.0); BUN Creatinine Ratio 21.2 (10-20); Bilirubin Direct 0.7 mg/dl (0-0.2); Bilirubin,Total 1.8 mg/dl (0.2-1.0); Creatinine Clr Calc Pharmacy 65.4 ml/min; Est GFR (African American) 66.5 ml/min; Est GFR (Non-African American) 57.4 ml/min; Total Protein 6.9 gm/dl (6.0-8.3)
--- NOTE | 2023-02-01 17:52 | Hospitalist Progress Note ---
Date of Service February 01, 2023 Assessment & Plan (1) Pneumonia: Plan: acute bilateral pneumonia on presentation concern for gram negative, MRSA screen pending immunosuppressive therapy for his renal transplant - Tacrolimus, mycophenolate mofetil and prednisone. Respiratory Biofire panel is NEGATIVE. -Zosyn initiated in the ER - will continue, complete 7 days course -Check blood cultures x 2 (2) Abnormal LFTs: Plan: Mildly elevated AST, ALT, AP and Tbili. Patient denies abdominal complaints -Repeat LFTs in AM (3) Symptomatic anemia: Plan: Acute on chronic anemia with Hgb=7.5 and Hct=23. Decreased from 9.5 and 28.9, respectively, on 01/13/23. Elevated DBE=867 baseline. Patient denies blood loss. Mild elevation in Tbili - ?hemolysis -Patient to receive 2u PRBCs, difficulty cross matching, still awaiting blood to arrive -anemia of chronic disease (4) Hx of kidney transplant: Plan: Patient with history of FSGS s/p renal transplant. He is on Tacrolimus, mycophenolate mofetil and Prednisone therapy -Continue home medications for now. Should patient clinically worsen from infection would hold immunosuppressive therapy (5) Retroperitoneal mass: Plan: Patient with known retroperitoneal mass - present on CT from 03/23/22 as a 3.1 x 2.4 cm infiltrative appearing retroperitoneal soft tissue lesion between the left renal gland and the [place] left kidney. Additionally, there are numerous similar appearing infiltrative lesions scattered throughout the mesentery. These are pathologically indeterminant but have increased in size and conspicuity as compared to 08/02/2021. Although this could potentially be on an infectious/inflammatory basis, a neoplastic process such as post transplant lymphoproliferative disorder is the diagnosis of exclusion. Patient states that he has had a biopsy by [facility] transplant physicians in [place] the biopsy came back inconclusive at that time they recommended invasive tissue sample taking although the patient stated that he is unsure he would treat if it were to come back something undesirable subsequently he wished to employ conservative measures following the mass on imaging and read biopsing if it substantially changes. (6) Aneurysm: Plan: Aneurysmal ascending thoracic aorta measuring up to 4.9cm without dissection noted on CTA. No previous vascular imaging of the thoracic aorta available -routine monitoring, serial imaging (7) Chronic kidney disease, stage 3a: Plan: Mild increase in BUN and Cr. Possibly secondary to volume depletion given patient's recent illness. Electrolytes are WNL - (8) History of esophageal reflux: Plan: Chronic. Patient denies abdominal pain, melena or hematochezia. Hemoccult test performed in the ER is NEGATIVE. -Continue Protonix 40mg po daily (9) Benign essential hypertension: Plan: Blood pressure well controlled at present - 127/95 -Will hold Lisinopril given mild increase in Cr - (10) Hypothyroidism: Plan: TSH WNL on 01/10/23 at 0.461 -Continue Synthroid 125mcg po daily Admission and Anticipated Discharge Date Admission Date: February 01, 2023 Subjective pt is weakened and tired still no coughing Physical Exam Physical Exam: Awake alert appropriate Cardiac exam is regular Lungs have basilar rhonchi which clear with coughing Abdomen NABS soft nontender Extremities are without edema Results & Data Results & Data Vital Signs (Past 12 Hours) Vital Signs Temp Pulse Pulse Resp BP Pulse Ox O2 Del Method 02/01/23 15:01 98.6 F 81 18 109/74 98 Room Air 02/01/23 11:22 97.5 F L 78 18 124/81 97 Room Air 02/01/23 07:00 77 02/01/23 08:00 Room Air 02/01/23 07:44 98.1 F 75 18 106/70 95 Room Air Laboratory Results reviewed cbc reviewed prp PG Care Time/CCT Total # of Minutes Spent Total Time Spent with Patient: Total time spent is greater than 50% in coordination of care (as documented) at patient's floor/unit and/or counseling patient: Coding Level of Care Code 89916 SUB INP/OBS CARE 2/35MIN Diagnoses Pneumonia J18.9 Abnormal LFTs R79.89 Symptomatic anemia D64.9 Hx of kidney transplant Z94.0 Retroperitoneal mass R19.00 Aneurysm I72.9 Chronic kidney disease, stage 3a N18.31 History of esophageal reflux Z87.19 Benign essential hypertension I10 Hypothyroidism E03.8 Hypothyroidism type: other (10) Hypothyroidism Hypothyroidism type: other Qualified Code(s): E03.8 - Other specified hypothyroidism
[2023-02-02] MEDS: PIPERACILLIN/TAZOBACTAM 4.5 GM in DEXTROSE 5% 100 ML IV SCH ×3 (02:12→18:05)
[2023-02-02] MEDS: ACETAMINOPHEN 325 MG TAB PO PRN ×4 (04:02→20:41)
[2023-02-02] MEDS: TACROLIMUS 1 MG CAP PO SCH ×2 (08:39→20:37)
[2023-02-02] MEDS: ASPIRIN 81 MG CHEW PO SCH (08:39)
[2023-02-02] MEDS: PANTOprazole 40 MG TAB PO SCH (08:39)
[2023-02-02] MEDS: MYCOPHENOLATE MOFETIL 250 MG CAP PO SCH ×2 (08:39→20:37)
[2023-02-02] MEDS: LEVOTHYROXINE SODIUM 125 MCG TABLET PO SCH (08:39)
[2023-02-02] MEDS: predniSONE 5 MG TAB PO SCH (08:39)
--- NOTE | 2023-02-02 13:02 | Hospitalist Progress Note ---
Date of Service February 02, 2023 Assessment & Plan (1) Pneumonia: Plan: acute bilateral pneumonia on presentation concern for gram negative, MRSA screen - 01/31/2023 immunosuppressive therapy for his renal transplant - Tacrolimus, mycophenolate mofetil and prednisone. Respiratory Biofire panel is NEGATIVE. -Zosyn initiated in the ER - will continue, complete 7 days course -Check blood cultures x 2 no growth at 48 hours Tender olecranon without olecranon bursitis seen Concern of right thumb for being herpetic maria and/or secondary staph infection current discussion with infectious disease whether consult is warranted given his immunosuppressed host with consideration of treating either as staph strep organisms that may be resistant to penicillin and/or antiviral medications (2) Symptomatic anemia: Plan: Acute on chronic anemia with Hgb=7.5 and Hct=23. Decreased from 9.5 and 28.9, respectively, on 01/13/23. Elevated VIL=275 baseline. Patient denies blood loss. Mild elevation in Tbili - ?hemolysis -Patient to receive 2u PRBCs, difficulty cross matching, still awaiting blood to arrive -anemia of chronic disease (3) Hx of kidney transplant: Plan: Chronic seemingly stable patient with history of FSGS s/p renal transplant. He is on Tacrolimus, mycophenolate mofetil and Prednisone therapy -Continue home medications for now. Patient did receive stress dose steroids earlier in his hospital stay if fatigue persist may reorder these Patient has chronic kidney disease stage III currently holding MEAGAN inhibitor at this time (4) Atrial fibrillation: Plan: Patient had a brief run of atrial fibrillation during his blood transfusion w hich self resolved and to normal sinus rhythm we will continue to follow this development (5) Retroperitoneal mass: Plan: Patient with known retroperitoneal mass - present on CT from 03/23/22 as a 3.1 x 2.4 cm infiltrative appearing retroperitoneal soft tissue lesion between the left renal gland and the [place] left kidney. Additionally, there are numerous similar appearing infiltrative lesions scattered throughout the mesentery. These are pathologically indeterminant but have increased in size and conspicuity as compared to 08/02/2021. Although this could potentially be on an infectious/inflammatory basis, a neoplastic process such as post transplant lymphoproliferative disorder is the diagnosis of exclusion. Patient states that he has had a biopsy by [facility] transplant physicians in [place] the biopsy came back inconclusive at that time they recommended invasive tissue sample taking although the patient stated that he is unsure he would treat if it were to come back something undesirable subsequently he wished to employ conservative measures following the mass on imaging and read biopsing if it substantially changes. (6) Aneurysm: Plan: Aneurysmal ascending thoracic aorta measuring up to 4.9cm without dissection noted on CTA. No previous vascular imaging of the thoracic aorta available -routine monitoring, serial imaging (7) Abnormal LFTs: Plan: Mildly elevated AST, ALT, AP and Tbili. Patient denies abdominal complaints -Repeat LFTs trending towards improvement (8) History of esophageal reflux: Plan: Chronic. Patient denies abdominal pain, melena or hematochezia. Hemoccult test performed in the ER is NEGATIVE. -Continue Protonix 40mg po daily (9) Hypothyroidism: Plan: TSH WNL on 01/10/23 at 0.461 -Continue Synthroid 125mcg po daily Admission and Anticipated Discharge Date Admission Date: February 01, 2023 Subjective Patient is weak and tired a poor night sleep. Did have a run of atrial fibrillation while getting blood transfusion last night received 2 units packed red blood cells spontaneously converted to normal sinus rhythm * no history of A-fib in this patient * Patient has persistent trouble with his left elbow although not fluctuant erythematous or any fluid collection Now he is pain with his right thumb with some coalesced palpable small clear bullae. Patient states that he express fluid from these although I cannot express any fluid from then Otherwise continues to persist without pulmonary symptomatology Physical Exam Physical Exam: Patient awake and alert appropriate he looks tired does not look vibrant after transfusion Cardiac exam is regular. No murmurs His lungs are clear without wheezes or crackles Abdomen NABS soft Left elbow she was without warmth but definitely point tender on the olecranon of the elbow Right thumb has the above described skin lesions without expressible fluid Results & Data Results & Data Vital Signs (Past 12 Hours) Vital Signs Temp Pulse Pulse Resp BP BP Pulse Ox 02/02/23 11:50 97.7 F 87 18 109/75 97 02/02/23 11:06 02/02/23 10:13 97.9 F 81 18 121/80 96 02/02/23 10:11 97.9 F 80 18 117/80 95 02/02/23 09:11 97.9 F 82 18 112/72 96 02/02/23 08:11 97.9 F 94 H 18 117/79 96 02/02/23 07:54 99 H 02/02/23 07:41 97.5 F L 83 18 121/84 95 02/02/23 07:26 97.9 F 82 18 116/72 96 02/02/23 07:44 97.5 F L 83 18 121/84 95 02/02/23 07:43 97.9 F 82 18 116/72 96 02/02/23 07:27 97.9 F 82 18 116/72 96 02/02/23 07:07 98.2 F 81 18 116/74 98 02/02/23 06:46 97.7 F 108 H 18 116/79 96 02/02/23 06:42 97.7 F 108 H 18 116/79 96 02/02/23 06:15 97.9 F 115 H 18 132/86 94 02/02/23 05:15 98.1 F 78 18 113/75 95 02/02/23 04:45 97.9 F 83 18 119/77 96 02/02/23 04:30 97.9 F 83 18 118/78 93 02/02/23 04:30 97.9 F 83 18 118/78 93 02/02/23 04:13 97.9 F 84 18 119/79 94 02/02/23 03:48 97.7 F 79 20 124/81 97 O2 Del Method 02/02/23 11:50 Room Air 02/02/23 11:06 Room Air 02/02/23 10:13 02/02/23 10:11 02/02/23 09:11 02/02/23 08:11 02/02/23 07:54 02/02/23 07:41 02/02/23 07:26 02/02/23 07:44 02/02/23 07:43 02/02/23 07:27 Room Air 02/02/23 07:07 02/02/23 06:46 02/02/23 06:42 02/02/23 06:15 02/02/23 05:15 02/02/23 04:45 02/02/23 04:30 02/02/23 04:30 02/02/23 04:13 02/02/23 03:48 Room Air Laboratory Results No recent laboratories to review I did reach out to infectious disease regarding his thumb lesions currently awaiting a plan of care PG Care Time/CCT Total # of Minutes Spent Total Time Spent with Patient: Total time spent is greater than 50% in coordination of care (as documented) at patient's floor/unit and/or counseling patient: Coding Level of Care Code 47491 SUB INP/OBS CARE 3/50MIN Diagnoses Pneumonia J18.9 Symptomatic anemia D64.9 Hx of kidney transplant Z94.0 Atrial fibrillation I48.91 Retroperitoneal mass R19.00 Aneurysm I72.9 Abnormal LFTs R79.89 History of esophageal reflux Z87.19 Hypothyroidism E03.8 Hypothyroidism type: other (9) Hypothyroidism Hypothyroidism type: other Qualified Code(s): E03.8 - Other specified hypothyroidism
[2023-02-02 15:02] LABS: BUN Creatinine Ratio 22.3 (10-20); Calcium 8.3 mg/dl (8.6-10.3); Creatinine Clr Calc Pharmacy 62.1 ml/min; Est GFR (African American) 62.5 ml/min; Est GFR (Non-African American) 53.9 ml/min; Phosphorus 2.6 mg/dl (2.5-4.9); Potassium 4.6 mmol/L (3.5-5.1)
[2023-02-02] MEDS: DAPTOmycin 325 MG in SYRINGE 0 ML IV SCH (15:50)
[2023-02-02] MEDS: valACYclovir HCL 500 MG TABLET PO SCH (20:37)
[2023-02-03] MEDS: PIPERACILLIN/TAZOBACTAM 4.5 GM in DEXTROSE 5% 100 ML IV SCH ×3 (02:21→18:55)
[2023-02-03] MEDS: ACETAMINOPHEN 325 MG TAB PO PRN ×3 (02:23→18:55)
[2023-02-03 06:40] LABS: Hemoglobin 7.7 g/dl (14.0-18.0); Mean Corpuscular Hemoglobin 34.7 pg (25.0-34.0); Mean Corpuscular Hgb Conc 33.5 g/dL (32.0-36.0); Mean Corpuscular Volume 103.6 fL (80.0-100.0); Mean Platelet Volume 9.2 fL (9.4-12.4); Platelet Count 306 K/uL (130-400); RDW Coefficient of Variation 14.2 % (11.5-14.5); RDW Standard Deviation 52.1 fL (36.4-46.3); Red Blood Count 2.22 M/uL (4.70-6.10); White Blood Count 10.51 K/ul (4.8-10.8)
[2023-02-03 07:04] LABS: BUN Creatinine Ratio 22.6 (10-20); Calcium 8.9 mg/dl (8.6-10.3); Est GFR (African American) 78.6 ml/min; Est GFR (Non-African American) 67.8 ml/min; Magnesium 1.6 mg/dl (1.7-2.4); Potassium 4.1 mmol/L (3.5-5.1)
[2023-02-03] MEDS: ASPIRIN 81 MG CHEW PO SCH (08:08)
[2023-02-03] MEDS: LEVOTHYROXINE SODIUM 125 MCG TABLET PO SCH (08:09)
[2023-02-03] MEDS: TACROLIMUS 1 MG CAP PO SCH ×2 (08:09→21:55)
[2023-02-03] MEDS: MYCOPHENOLATE MOFETIL 250 MG CAP PO SCH ×2 (08:09→21:56)
[2023-02-03] MEDS: valACYclovir HCL 500 MG TABLET PO SCH ×2 (08:09→21:55)
[2023-02-03] MEDS: PANTOprazole 40 MG TAB PO SCH (08:09)
[2023-02-03] MEDS: predniSONE 5 MG TAB PO SCH (08:09)
[2023-02-03] MEDS ORDERED: METOPROLOL TARTRATE 1 MG/ML VIAL IV STA (12:22)
--- NOTE | 2023-02-03 13:35 | Hospitalist Progress Note ---
Date of Service February 03, 2023 Assessment & Plan (1) Pneumonia: Plan: acute bilateral pneumonia on presentation concern for gram negative, MRSA screen - 01/31/2023 immunosuppressive therapy for his renal transplant - Tacrolimus, mycophenolate mofetil and prednisone. Respiratory Biofire panel is NEGATIVE. -Zosyn initiated in the ER - will continue, complete 7 days course -Check blood cultures x 2 no growth at 48 hours Tender olecranon without olecranon bursitis seen Concern of right thumb for being herpetic maria and/or secondary staph infection current discussion with infectious disease whether consult is warranted given his immunosuppressed host with consideration of treating either as staph strep organisms that may be resistant to penicillin and/or antiviral medications (2) Symptomatic anemia: Plan: Acute on chronic anemia with Hgb=7.5 and Hct=23. Decreased from 9.5 and 28.9, respectively, on 01/13/23. Elevated UEB=723 baseline. Patient denies blood loss. Mild elevation in Tbili - ?hemolysis -Patient to receive 2u PRBCs, difficulty cross matching, received 2 untis of PRBC on 02/02 Hemoglobin is stable. (3) Hx of kidney transplant: Plan: Chronic seemingly stable patient with history of FSGS s/p renal transplant. He is on Tacrolimus, mycophenolate mofetil and Prednisone therapy -Continue home medications for now. Patient did receive stress dose steroids earlier in his hospital stay if fatigue persist may reorder these Patient has chronic kidney disease stage III currently holding MEAGAN inhibitor at this time (4) Atrial fibrillation: Plan: Patient had a brief run of atrial fibrillation during his blood transfusion which self resolved and to normal sinus rhythm we will continue to follow this development (5) Retroperitoneal mass: Plan: Patient with known retroperitoneal mass - present on CT from 03/23/22 as a 3.1 x 2.4 cm infiltrative appearing retroperitoneal soft tissue lesion between the left renal gland and the [place] left kidney. Additionally, there are numerous similar appearing infiltrative lesions scattered throughout the mesentery. These are pathologically indeterminant but have increased in size and conspicuity as compared to 08/02/2021. Although this could potentially be on an infectious/inflammatory basis, a neoplastic process such as post transplant lymphoproliferative disorder is the diagnosis of exclusion. Patient states that he has had a biopsy by [facility] transplant physicians in [place] the biopsy came back inconclusive at that time they recommended invasive tissue sample taking although the patient stated that he is unsure he would treat if it were to come back something undesirable subsequently he wished to employ conservative measures following the mass on imaging and read biopsing if it substantially changes. (6) Aneurysm: Plan: Aneurysmal ascending thoracic aorta measuring up to 4.9cm without dissection noted on CTA. No previous vascular imaging of the thoracic aorta available -routine monitoring, serial imaging (7) Abnormal LFTs: Plan: Mildly elevated AST, ALT, AP and Tbili. Patient denies abdominal complaints -Repeat LFTs trending towards improvement (8) History of esophageal reflux: Plan: Chronic. Patient denies abdominal pain, melena or hematochezia. Hemoccult test performed in the ER is NEGATIVE. -Continue Protonix 40mg po daily (9) Hypothyroidism: Plan: TSH WNL on 01/10/23 at 0.461 -Continue Synthroid 125mcg po daily Admission and Anticipated Discharge Date Admission Date: February 01, 2023 Subjective Patient reports no new symptoms Review of Systems Review of Systems: All systems reviewed & are unremarkable except as noted in HPI & below Physical Exam Physical Exam: Patient awake and alert appropriate he looks tired does not look vibrant after transfusion Cardiac exam is regular. No murmurs His lungs are clear without wheezes or crackles Abdomen NABS soft Left elbow she was without warmth but definitely point tender on the olecranon of the elbow Right thumb has the above described skin lesions without expressible fluid Results & Data Results & Data Vital Signs (Past 12 Hours) Vital Signs Temp Pulse Pulse Resp BP BP Pulse Ox 02/03/23 13:12 137 H 109/61 02/03/23 13:00 130 H 109/61 02/03/23 11:15 36.7 C 92 H 18 128/83 98 02/03/23 11:35 98 H 02/03/23 07:24 36.6 C 74 18 130/87 97 02/03/23 02:18 36.5 C 87 18 144/89 H 97 O2 Del Method 02/03/23 13:12 02/03/23 13:00 02/03/23 11:15 Room Air 02/03/23 11:35 02/03/23 07:24 Room Air 02/03/23 02:18 Room Air PG Care Time/CCT Total # of Minutes Spent Total Time Spent with Patient: Total time spent is greater than 50% in coordination of care (as documented) at patient's floor/unit and/or counseling patient: Coding Level of Care Code 55768 SUB INP/OBS CARE 2/35MIN Diagnoses Pneumonia J18.9 Symptomatic anemia D64.9 Hx of kidney transplant Z94.0 Atrial fibrillation I48.91 Retroperitoneal mass R19.00 Aneurysm I72.9 Abnormal LFTs R79.89 History of esophageal reflux Z87.19 Hypothyroidism E03.8 Hypothyroidism type: other (9) Hypothyroidism Hypothyroidism type: other Qualified Code(s): E03.8 - Other specified hypothyroidism
[2023-02-03] MEDS ORDERED: METOPROLOL TARTRATE 25 MG TAB PO ONE (13:45)
--- NOTE | 2023-02-03 14:01 | Infectious Disease Consult ---
Date of Consultation February 03, 2023 Assessment & Plan (1) Pneumonia: (2) Herpetic maria: Plan 62 yo M with history of FSGS s/p renal transplant (02/2010) on tacro, MMF, prednisone 5 mg daily, HTN, HLD, CVA, abdominal aortic aneurysm who presented on 01/31 with shortness of breath, now admitted with pneumonia and possible herpetic maria. Pt reported URI symptoms about 1 week prior to presentation which were improving until the day prior to admission when he experienced worsening SOB, STOCK, and generalized weakness and fatigue. He denied fevers, chills, diarrhea, urinary complaints. On presentation, he was afebrile, on room air, with WBC 12.73, procalcitonin 0.27. RVP negative. MRSA nares negative. CTA chest showed no PE, bilateral lower lobe airspace opacities suggestive of pneumonia. Pt was started on pip-tazo for pneumonia. Pt was also noted to have a R thumb lesion with appearance c/f herpetic maria. Denied recent trauma/injury to his R thumb. In the setting of immunosuppression, he was started on valacyclovir on 02/02. WBC has downtrended to 10.5, and pt remains afebrile on room air, and he reports improvement in his breathing. He also thinks his R thumb has improved. Hospital course c/b Afib with RVR on 02/03. Micro: 02/02 R thumb HSV 1/2 PCR: pending 01/31 BCx x2: NGTD Abx: Valacyclovir 02/02 - present Daptomycin 02/02 - present Pip-tazo 01/30 - present Problems: #Pneumonia #R thumb lesion: c/f herpetic maria. No signs of disseminated HSV #L elbow pain: no Recommendations: -Follow-up R thumb HSV PCR -Continue valacyclovir 1 g BID x 7 days -It appears that daptomycin was added on 02/02--likely in case of R thumb cellulitis. On discharge, could transition to doxycycline for MRSA coverage. -Can continue pip-tazo for pneumonia. On discharge, could consider transitioning to amox/clav, or levofloxacin to complete a 7 day course (would recheck EKG for QTc. Avoid fluoroquinolone if QTc>500) -Do not think there is concern for septic bursitis or septic arthritis of L elbow Please note that there will be no ID notes over the weekend. If questions or concerns arise, please contact the Infectious Disease Call Center and ask to speak with the covering ID physician. I will be back on service on Monday. Consultation Information Consultation was provided via telemedicine using two-way real-time interactive telecommunication between the patient and the telemedicine provider. For the duration of the visit, the provider was performing the assessment from a different facility than the patient. This includesuse of bluetooth stethoscope forauscultationperformed by the telepresenter that the telemedicine provider can hear if described in the physical exam. Last Inserter contact information: Please call [facility] [phone]. (Phone Number For Physician Use Only) After establishing a telemedicine visit, patient was: Patient was verified with two unique identifiers, Patient/authorized rep acknowledged consent and understanding and Gave permission to continue telehealth session Time Spent with Patient: Initial => 40 min History of Present Illness Reason for Consultation: Concern for herpetic maria Requesting Physician: Dr. Ash Attending Physician: Giovanny Israel History of Present Illness 62 yo M with history of FSGS s/p renal transplant (02/2010) on tacro, MMF, prednisone 5 mg daily, HTN, HLD, CVA, abdominal aortic aneurysm who presented on 01/31 with shortness of breath. Pt reported having URI symptoms about 1 week prior to presentation, with congestion and productive cough. His symptoms were improving until the day prior to presentation when he experienced worsening SOB, STOCK, and generalized weakness and fatigue. He denied fevers, chills, diarrhea, urinary complaints. On presentation, he was afebrile VSS. Labs showed WBC 12.73, Cr 1.43, Tbili 1.9, AST 55, ALT 57, alk phos 146, procalcitonin 0.27. UA with 1- 5 WBCs. RVP negative. MRSA nares negative. CTA chest showed no PE, bilateral lower lobe airspace opacities suggestive of pneumonia. Pt was started on pip- tazo for pneumonia. WBC has downtrended to 10.51 today. Pt has remained afebrile on room air. Pt also reported L elbow pain, and on exam had point tenderness on the olecranon, did not have any surrounding erythema/swelling. Pt also reported R thumb pain and he was noted to have some coalescing small clear bullae on his thumb, concerning for herpetic maria. He was therefore started on valacyclovir 1 g BID on 02/02. Pt denies recent cold sore, oral lesions, genital lesions. He thinks the R thumb lesions may have arisen the day prior to admission. He denies preceding injury to his thumb, no animal bites, no punctures in the setting of gardening. He feels his breathing has improved. He thinks he may have bumped his L elbow recently. Allergies Allergy/AdvReac Type Severity Reaction Status Date / Time clopidogrel [From Plavix] Allergy Unknown Unknown Verified 01/31/23 02:51 Ytabkks-XVH-KkB Reductase AdvReac Intermediate myalgias Verified 01/31/23 02:51 Inhibitor [Qewhpfy-Ejv-Pnt Reductase Inhibitor] Home Medications Medication Instructions Recorded Confirmed Type aspirin 81 mg chewable tablet 81 mg PO DAILY #90 tabs 06/06/19 01/31/23 Rx magnesium oxide 500 mg tablet 500 mg PO DAILY #90 tabs 06/06/19 01/31/23 Rx prednisone 5 mg tablet 5 mg PO DAILY #90 tabs 07/23/19 01/31/23 Rx mycophenolate mofetil 250 mg 500 mg PO BID #360 caps 05/29/20 01/31/23 Rx capsule amoxicillin 500 mg capsule 2,000 mg PO DIRECTED PRN PRIOR 07/29/20 01/31/23 History TO DENTAL PROCEDURES multivitamin 1 tab PO DAILY 08/02/21 01/31/23 History lisinopril 10 mg tablet 10 mg PO DAILY #90 tabs 07/08/22 01/31/23 Rx tacrolimus 1 mg capsule, 2 mg PO BID 07/08/22 01/31/23 History immediate-release levothyroxine 125 mcg tablet 125 mcg PO DAILY 01/31/23 01/31/23 History pantoprazole 40 mg tablet,delayed 40 mg PO DAILY 01/31/23 01/31/23 History release Patient History Medical History Abdominal aortic aneurysm Anemia Benign essential hypertension Chronic kidney disease, stage 3a CVA (cerebral vascular accident) FSGS (focal segmental glomerulosclerosis) History of esophageal reflux Hyperlipidemia Hypothyroidism Obesity Osteoporosis Proteinuria Vitamin D deficiency Surgical History History of colonoscopy Family History Grandmother (Maternal) Alzheimer disease Mother Depression Denies family history of Ovarian cancer Prostate cancer Diabetes Heart disease Myocardial infarction Breast cancer Lung cancer COPD (chronic obstructive pulmonary disease) Colorectal cancer Hypertension Stroke Social History Smoking Status: Never smoker Second Hand Exposure: No; Do You Dip or Chew Tobacco: No; Hx Alcohol Use: Yes Alcohol type: beer Alcohol Intake Frequency: Monthly or Less Hx Substance Use: No 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: Marshallese Communication Ability: Effective Visual Impairment: No Limitations Hearing Ability: Normal Sign Carpenter Required: No Beliefs That Will Affect Care: None marital status: Current Living Situation: Spouse current occupational status: employed current occupation: [employer] How many Children do You have: 1 Feels Safe at Home: Yes Safety Concerns: Feels Safe At This Time Childhood Exposure to Second-Hand Smoke: No Dental Care, Regularly: Yes Seatbelt Use: sometimes Sunscreen Use: No Assistive Devices: Cane Review of System A complete ROS was performed and is negative except as mentioned in the HPI. Physical Exam Physical Exam: GEN: laying in bed in NAD. RESP: No increased work of breathing EXT: L elbow without effusion. SKIN: R thumb with raised lesion on yellow base (difficult to visualize, as video was blurry). Trace erythema on posterior upper L arm, just proximal to elbow. NEURO: Alert and oriented. Answers all questions appropriately. PSYCH: Normal mood, affect appropriate. Results & Data Vital Signs (Past 12 Hours) Vital Signs Temp Pulse Pulse Resp BP BP Pulse Ox 02/03/23 13:12 137 H 109/61 02/03/23 13:00 130 H 109/61 02/03/23 11:15 36.7 C 92 H 18 128/83 98 02/03/23 11:35 98 H 02/03/23 07:24 36.6 C 74 18 130/87 97 02/03/23 02:18 36.5 C 87 18 144/89 H 97 O2 Del Method 02/03/23 13:12 02/03/23 13:00 02/03/23 11:15 Room Air 02/03/23 11:35 02/03/23 07:24 Room Air 02/03/23 02:18 Room Air Laboratory Results Short CBC 02/03/23 Range/Units 06:00 WBC 10.51 (4.8-10.8) K/ul Hgb 7.7 L (14.0-18.0) g/dl Hct 23.0 L (42.0-52.0) % Plt Count 306 (130-400) K/uL BMP 02/02/23 02/03/23 14:21 06:00 Sodium 135 L 136 Potassium 4.6 4.1 Chloride 108 H 107 Carbon Dioxide 22 23 BUN 31 H 26 H Creatinine 1.39 1.15 Glucose 133 H 98 Calcium 8.3 L 8.9 Diagnostic Findings 01/31 XR L elbow FINDINGS: There is no evidence of an acute fracture. Joint spaces are well-preserved. The alignment is anatomic. There is no prominence of the anterior or posterior fat pads to suggest an effusion. Vascular calcifications are seen. IMPRESSION: No evidence of acute fracture or dislocation. 01/31 CTA chest IMPRESSION: 1. No pulmonary embolism. 2. Aneurysmal ascending thoracic aorta measuring up to 4.9 cm. No dissection. 3. Bilateral lower lobe airspace opacities suggestive of pneumonia. 4. Small hiatal hernia. 5. Severe coronary artery calcifications. 6. Left adrenal nodule with irregular borders measuring 2.7 x 2.5 cm only partially imaged on this study. Consider adrenal protocol CT or MRI for characterization. Medications Administered Current Inpatient Medications Acetaminophen (Acetaminophen 325 Mg Tab) 650 mg PO Q4H PRN PRN Reason: pain/fever Stop: 03/02/23 06:22 Last Admin: 02/03/23 08:14 Dose: 650 mg Aspirin (Aspirin 81 Mg Chew) 81 mg PO DAILY ESTEFANI Stop: 03/02/23 08:59 Last Admin: 02/03/23 08:08 Dose: 81 mg Piperacillin Sod/Tazobactam (Sod 4.5 gm/ Dextrose) 120 mls @ 30 mls/hr IV Q8H ESTEFANI; Protocol Stop: 02/07/23 09:59 Last Admin: 02/03/23 09:49 Dose: 30 mls/hr Daptomycin 325 mg/ Syringe 6.5 mls @ 3.25 mls/min IV Q24H ESTEFANI; Protocol Stop: 02/09/23 14:29 Last Admin: 02/02/23 15:50 Dose: 3.25 mls/min Levothyroxine Sodium (Levothyroxine Sodium 125 Mcg Tablet) 125 mcg PO DAILY ESTEFANI Stop: 03/02/23 08:59 Last Admin: 02/03/23 08:09 Dose: 125 mcg Metoprolol Tartrate (Metoprolol Tartrate 25 Mg Tab) 25 mg PO BID ESTEFANI Stop: 03/05/23 20:59 Mycophenolate Mofetil (Mycophenolate Mofetil 250 Mg Cap) 500 mg PO BID ESTEFANI Stop: 03/02/23 08:59 Last Admin: 02/03/23 08:09 Dose: 500 mg Ondansetron HCl (Ondansetron Inj 2 Mg/Ml 2 Ml Vial) 4 mg IV Q6H PRN PRN Reason: Nausea Stop: 03/02/23 06:22 Pantoprazole Sodium (Pantoprazole 40 Mg Tab) 40 mg PO DAILY ESTEFANI Stop: 03/02/23 08:59 Last Admin: 02/03/23 08:09 Dose: 40 mg Prednisone (Prednisone 5 Mg Tab) 5 mg PO DAILY ESTEFANI Stop: 03/02/23 08:59 Last Admin: 02/03/23 08:09 Dose: 5 mg Tacrolimus (Tacrolimus 1 Mg Cap) 2 mg PO BID ESTEFANI Stop: 03/02/23 08:59 Last Admin: 02/03/23 08:09 Dose: 2 mg Valacyclovir HCl (Valacyclovir Hcl 500 Mg Tablet) 1,000 mg PO BID ESTEFANI Stop: 02/09/23 20:59 Last Admin: 02/03/23 08:09 Dose: 1,000 mg
[2023-02-03] MEDS: DAPTOmycin 325 MG in SYRINGE 0 ML IV SCH (15:01)
[2023-02-03 15:02] LABS: Hemoglobin 7.7 g/dl (14.0-18.0)
--- NOTE | 2023-02-03 15:08 | Cardiology Consultation ---
Date of Consultation February 03, 2023 Assessment & Plan (1) Atrial fibrillation: (2) Aneurysm: Plan 1. Atrial fibrillation: No prior history of atrial fibrillation. Unclear if this is related to his acute illness. No other known precipitant. Fortunately, he appears hemodynamically stable and without symptoms. First prior day was simply be rate control. He was started on oral regimen of beta-blockade. I think we can watch this but briefly to see if there is any change in his heart rate. Could also initiated diltiazem infusion if this is ineffective. I do not think there is an urgency to obtain good rate control given how well he has tolerated the arrhythmia. It is possible that he will convert within the next 24 hours since he had has no known history of atrial fibrillation. He has a history of cerebrovascular accident and hypertension. This puts him in a category patients who would benefit from systemic anticoagulation. If there is no contraindication I would consider starting him on Eliquis 5 mg twice daily. 2. Aortic aneurysm: This is close to the size before recommending intervention. No prior imaging in our system to gauge any recent expansion. Patient has made statements suggesting he would not 1 operative intervention in any regard. Maintaining him on beta-blockade with good blood pressure control may have some benefit. Avoid strenuous lifting. Avoid fluoroquinolones. History of Present Illness Reason for Consultation: Atrial fibrillation Requesting Physician: Lindy Attending Physician: Giovanny Israel History of Present Illness The patient is a 62-year-old gentleman without a known history of cardiac d isease who had previously undergone a renal transplant and is on immunosuppressive therapy. He was actually admitted over concerns infection. He had developed some worsening fatigue and upper respiratory symptoms. No associated fevers or chills. Currently being treated for pneumonia. Also under investigation for bursitis and herpetic maria. This afternoon the patient developed the rapid heart rate consistent with atrial fibrillation. He was unaware of any change in his condition. He did not report palpitations or sense of a pounding heartbeat. He denies associated symptoms such as dizziness, lightheadedness, breathing difficulty or chest pain. He cannot recall other episodes of palpitations. In general he is fairly sedentary. 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 He is able to stacking carry wood at home. He can perform limited activity without symptoms. He does not exercise regularly or perform vigorous activity. He did not endorse symptoms of exertional dyspnea, exertional chest pain, dizziness or syncope. No history of orthopnea or paroxysmal nocturnal dyspnea. No lower extremity edema. Allergies Allergy/AdvReac Type Severity Reaction Status Date / Time clopidogrel [From Plavix] Allergy Unknown Unknown Verified 01/31/23 02:51 Wayxiim-KON-AsX Reductase AdvReac Intermediate myalgias Verified 01/31/23 02:51 Inhibitor [Umpgnbi-Wgv-Jli Reductase Inhibitor] Home Medications Medication Instructions Recorded Confirmed Type aspirin 81 mg chewable tablet 81 mg PO DAILY #90 tabs 06/06/19 01/31/23 Rx magnesium oxide 500 mg tablet 500 mg PO DAILY #90 tabs 06/06/19 01/31/23 Rx prednisone 5 mg tablet 5 mg PO DAILY #90 tabs 07/23/19 01/31/23 Rx mycophenolate mofetil 250 mg 500 mg PO BID #360 caps 05/29/20 01/31/23 Rx capsule amoxicillin 500 mg capsule 2,000 mg PO DIRECTED PRN PRIOR 07/29/20 01/31/23 History TO DENTAL PROCEDURES multivitamin 1 tab PO DAILY 08/02/21 01/31/23 History lisinopril 10 mg tablet 10 mg PO DAILY #90 tabs 07/08/22 01/31/23 Rx tacrolimus 1 mg capsule, 2 mg PO BID 07/08/22 01/31/23 History immediate-release levothyroxine 125 mcg tablet 125 mcg PO DAILY 01/31/23 01/31/23 History pantoprazole 40 mg tablet,delayed 40 mg PO DAILY 01/31/23 01/31/23 History release Patient History Medical History Abdominal aortic aneurysm Anemia Benign essential hypertension Chronic kidney disease, stage 3a CVA (cerebral vascular accident) FSGS (focal segmental glomerulosclerosis) History of esophageal reflux Hyperlipidemia Hypothyroidism Obesity Osteoporosis Proteinuria Vitamin D deficiency Surgical History History of colonoscopy Family History Grandmother (Maternal) Alzheimer disease Mother Depression Denies family history of Ovarian cancer Prostate cancer Diabetes Heart disease Myocardial infarction Breast cancer Lung cancer COPD (chronic obstructive pulmonary disease) Colorectal cancer Hypertension Stroke Social History Smoking Status: Never smoker Second Hand Exposure: No; Do You Dip or Chew Tobacco: No; Hx Alcohol Use: Yes Alcohol type: beer Alcohol Intake Frequency: Monthly or Less Hx Substance Use: No 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: Armenian Communication Ability: Effective Visual Impairment: No Limitations Hearing Ability: Normal Brimmer Blocker Required: No Beliefs That Will Affect Care: None marital status: Current Living Situation: Spouse current occupational status: employed current occupation: [employer] How many Children do You have: 1 Feels Safe at Home: Yes Safety Concerns: Feels Safe At This Time Childhood Exposure to Second-Hand Smoke: No Dental Care, Regularly: Yes Seatbelt Use: sometimes Sunscreen Use: No Assistive Devices: Cane Review of Systems Review of Systems: Per HPI. Physical Exam Physical Exam: The patient is alert and oriented. Mood and affect appeared normal. He answered all questions appropriately. HEENT: Pupils are equal and reactive to light and accommodation. Extraocular movements are intact. The sclerae are anicteric. Neuro: Cranial nerves intact Lungs: Clear to auscultation bilaterally. He has good air movement without use of accessory muscles. No rales wheezes or rhonchi. Cardiac: Heart demonstrates an irregular rate and rhythm. Normal S1 and S2. No murmurs on examination. Pulses: The patient has palpable radial pulses bilaterally that are equal in intensity Extremities: There was no evidence of hypoperfusion. There is no cyanosis or clubbing. There is no edema. Skin: I did not appreciate any rashes on examination today. Results & Data Vital Signs (Past 12 Hours) Vital Signs Temp Pulse Pulse Resp BP BP Pulse Ox 02/03/23 13:12 137 H 109/61 02/03/23 13:00 130 H 109/61 02/03/23 11:15 36.7 C 92 H 18 128/83 98 02/03/23 11:35 98 H 02/03/23 07:24 36.6 C 74 18 130/87 97 O2 Del Method 02/03/23 13:12 02/03/23 13:00 02/03/23 11:15 Room Air 02/03/23 11:35 02/03/23 07:24 Room Air Laboratory Results Abnormal Lab Results 01/31/23 02/03/23 02/03/23 04:04 06:00 06:00 WBC 10.51 RBC 2.22 L Hgb 7.7 L Hct 23.0 L MCV 103.6 H MCH 34.7 H MCHC 33.5 RDW Std Deviation 52.1 H RDW Coeff of Jaye 14.2 Plt Count 306 MPV 9.2 L Sodium 136 Potassium 4.1 Chloride 107 Carbon Dioxide 23 Anion Gap 6 BUN 26 H Creatinine 1.15 Est Cr Clr Drug Dosing 75.0 Est GFR ( Amer) 78.6 Est GFR (Non-Af Amer) 67.8 BUN/Creatinine Ratio 22.6 H Glucose 98 Calcium 8.9 Magnesium 1.6 L Antibody ID Referred 02/03/23 14:41 WBC RBC Hgb 7.7 L Hct 24.0 L MCV MCH MCHC RDW Std Deviation RDW Coeff of Jaye Plt Count MPV Sodium Potassium Chloride Carbon Dioxide Anion Gap BUN Creatinine Est Cr Clr Drug Dosing Est GFR ( Amer) Est GFR (Non-Af Amer) BUN/Creatinine Ratio Glucose Calcium Magnesium Antibody ID Referred Diagnostic Findings Chest CTA performed 01/31/2023: No evidence of pulmonary embolus. Ascending thoracic aortic aneurysm measuring 4.9 cm. Severe coronary artery calcification. Left adrenal nodule. ECG Additional Comments: Presenting EKG demonstrated sinus rhythm with right bundle branch block Current EKG demonstrates atrial fibrillation with right bundle branch block PG Care Time/CCT Total # of Minutes Spent Total Time Spent with Patient: Total time spent is greater than 50% in coordination of care (as documented) at patient's floor/unit and/or counseling patient: Coding Level of Care Code 85782 INT INP/OBS CARE 3/75MIN Diagnoses Atrial fibrillation I48.91 Aneurysm I72.9
--- NOTE | 2023-02-03 15:37 | Electrocardiogram Report ---
Test Reason : Blood Pressure : / mmHG Vent. Rate : 141 BPM Atrial Rate : 141 BPM P-R Int : 112 ms QRS Dur : 146 ms QT Int : 334 ms P-R-T Axes : 000 -49 033 degrees QTc Int : 511 ms Atrial Flutter Right bundle branch block Left anterior fascicular block Bifascicular block Moderate voltage criteria for LVH, may be normal variant Abnormal ECG When compared with ECG of 31-JAN-2023 02:46, Vent. rate has increased BY 54 BPM Left anterior fascicular block is now Present Confirmed by Kannan Otto ([id number]) on 02/03/2023 3:37:15 PM Referred By: REFERRED SELF Confirmed By:eJrrod Otto
--- NOTE | 2023-02-03 16:43 | Electrocardiogram Report ---
Test Reason : Blood Pressure : / mmHG Vent. Rate : 114 BPM Atrial Rate : 147 BPM P-R Int : 000 ms QRS Dur : 142 ms QT Int : 364 ms P-R-T Axes : 000 -37 018 degrees QTc Int : 501 ms Atrial fibrillation with rapid ventricular response Left axis deviation Right bundle branch block Moderate voltage criteria for LVH, may be normal variant Abnormal ECG Confirmed by Kannan Otto ([id number]) on 02/03/2023 4:42:53 PM Referred By: REFERRED SELF Confirmed By:Jerrod Otto
[2023-02-03] MEDS ORDERED: METOPROLOL TARTRATE 25 MG TAB PO SCH (21:00)
[2023-02-04] MEDS: ACETAMINOPHEN 325 MG TAB PO PRN ×2 (01:51→09:04)
[2023-02-04] MEDS: PIPERACILLIN/TAZOBACTAM 4.5 GM in DEXTROSE 5% 100 ML IV SCH ×3 (01:51→17:42)
--- NOTE | 2023-02-04 08:56 | Cardiology Progress Note ---
Date of Service February 04, 2023 Assessment & Plan (1) Atrial fibrillation: (2) Aneurysm: Plan 1. Atrial fibrillation: He continues to have some higher ventricular rates. No symptoms. We will intensify his beta-blockade in the hopes of achieving better rate control. Still a good chance that he will convert back to sinus at some point. I will start him on Eliquis 5 mg twice daily 2. Aortic aneurysm: Titrating beta-blockade. Avoid strenuous lifting. Avoid fluoroquinolones. Admission and Anticipated Discharge Date Admission Date: February 03, 2023 Subjective The patient claimed he feeling well. He denies significant breathing trouble. Still unaware of any palpitations. He reported being up to the commode and around his room without dizziness or lightheadedness. Review of Systems Review of Systems: Per HPI Physical Exam Physical Exam: The patient is alert and oriented. Mood and affect appeared normal. He answered all questions appropriately. HEENT: Pupils are equal and reactive to light and accommodation. Extraocular movements are intact. The sclerae are anicteric. Neuro: Cranial nerves intact Lungs: Clear to auscultation bilaterally. He has good air movement without use of accessory muscles. No rales wheezes or rhonchi. Cardiac: Heart demonstrates an irregular rate and rhythm. Normal S1 and S2. No murmurs on examination. Pulses: The patient has palpable radial pulses bilaterally that are equal in intensity Extremities: There was no evidence of hypoperfusion. There is no cyanosis or clubbing. There is no edema. Skin: I did not appreciate any rashes on examination today. Results & Data Vital Signs (Past 12 Hours) Vital Signs Temp Pulse Pulse Resp BP Pulse Ox O2 Del Method 02/04/23 05:58 94 H 02/04/23 07:14 36.6 C 96 H 17 102/70 96 Room Air 02/04/23 03:25 36.7 C 93 H 20 108/77 97 Room Air 02/03/23 22:00 93 H 02/03/23 22:34 36.6 C 94 H 20 115/77 97 Room Air Laboratory Results Abnormal Lab Results 01/31/23 02/03/23 04:04 14:41 Hgb 7.7 L Hct 24.0 L Antibody ID Referred PG Care Time/CCT Total # of Minutes Spent Total Time Spent with Patient: Total time spent is greater than 50% in coordination of care (as documented) at patient's floor/unit and/or counseling patient: Coding Level of Care Code 24425 SUB INP/OBS CARE MIN Diagnoses Atrial fibrillation I48.91 Aneurysm I72.9
[2023-02-04 09:00] LABS: Hematocrit (blood only) 25.2 % (42.0-52.0); Hemoglobin 7.9 g/dl (14.0-18.0); Mean Corpuscular Hgb Conc 31.3 g/dL (32.0-36.0); Mean Platelet Volume 8.7 fL (9.4-12.4); Platelet Count 330 K/uL (130-400); RDW Coefficient of Variation 13.6 % (11.5-14.5); RDW Standard Deviation 50.1 fL (36.4-46.3); Red Blood Count 2.47 M/uL (4.70-6.10); White Blood Count 11.52 K/ul (4.8-10.8)
[2023-02-04] MEDS: MYCOPHENOLATE MOFETIL 250 MG CAP PO SCH ×2 (09:04→20:31)
[2023-02-04] MEDS: TACROLIMUS 1 MG CAP PO SCH ×2 (09:05→20:32)
[2023-02-04] MEDS: valACYclovir HCL 500 MG TABLET PO SCH ×2 (09:05→20:31)
[2023-02-04] MEDS: predniSONE 5 MG TAB PO SCH (09:06)
[2023-02-04] MEDS: PANTOprazole 40 MG TAB PO SCH (09:06)
[2023-02-04] MEDS: LEVOTHYROXINE SODIUM 125 MCG TABLET PO SCH (09:06)
[2023-02-04] MEDS: METOPROLOL TARTRATE 25 MG TAB PO SCH ×3 (09:09→19:46)
[2023-02-04 09:21] LABS: BUN Creatinine Ratio 21.2 (10-20); Creatinine Clr Calc Pharmacy 73.1 ml/min; Est GFR (African American) 76.2 ml/min; Est GFR (Non-African American) 65.7 ml/min; Magnesium 1.4 mg/dl (1.7-2.4); Potassium 4.1 mmol/L (3.5-5.1)
[2023-02-04] MEDS: APIXABAN 5 MG TABLET PO SCH ×2 (09:42→20:31)
[2023-02-04] MEDS: DAPTOmycin 325 MG in SYRINGE 0 ML IV SCH (14:08)
[2023-02-04] MEDS ORDERED: INDOMETHACIN 25 MG CAP PO STA (14:39)
[2023-02-04] MEDS ORDERED: MAGNESIUM SULFATE / D5W 1 GM/100 ML BAG IV ONE (14:41)
[2023-02-04] MEDS ORDERED: predniSONE 20 MG TAB PO STA (14:51)
[2023-02-04] MEDS ORDERED: INDOMETHACIN 25 MG CAP PO SCH (21:00)
--- NOTE | 2023-02-04 23:06 | Hospitalist Progress Note ---
Date of Service February 04, 2023 Assessment & Plan (1) Pneumonia: Plan: acute bilateral pneumonia on presentation concern for gram negative, MRSA screen - 01/31/2023 immunosuppressive therapy for his renal transplant - Tacrolimus, mycophenolate mofetil and prednisone. Respiratory Biofire panel is NEGATIVE. -Zosyn initiated in the ER - will continue, complete 7 days course -Check blood cultures x 2 no growth at 48 hours Tender olecranon without olecranon bursitis seen Concern of right thumb for being herpetic maria and/or secondary staph infection current discussion with infectious disease whether consult is warranted given his immunosuppressed host with consideration of treating either as staph strep organisms that may be resistant to penicillin and/or antiviral medications Appreciate input from ID. will place on a higher dose of prednisone for his gout. (2) Symptomatic anemia: Plan: Acute on chronic anemia with Hgb=7.5 and Hct=23. Decreased from 9.5 and 28.9, respectively, on 01/13/23. Elevated WKM=220 baseline. Patient denies blood loss. Mild elevation in Tbili - ?hemolysis -Patient to receive 2u PRBCs, difficulty cross matching, received 2 untis of PRBC on 02/02 Hemoglobin is stable. (3) Hx of kidney transplant: Plan: Chronic seemingly stable patient with history of FSGS s/p renal transplant. He is on Tacrolimus, mycophenolate mofetil and Prednisone therapy -Continue home medications for now. Patient did receive stress dose steroids earlier in his hospital stay if fatigue persist may reorder these Patient has chronic kidney disease stage III currently holding MEAGAN inhibitor at this time (4) Atrial fibrillation: Plan: Patient had a brief run of atrial fibrillation during his blood transfusion which self resolved and to normal sinus rhythm we will continue to follow this development (5) Retroperitoneal mass: Plan: Patient with known retroperitoneal mass - present on CT from 03/23/22 as a 3.1 x 2.4 cm infiltrative appearing retroperitoneal soft tissue lesion between the left renal gland and the habematolel left kidney. Additionally, there are numerous similar appearing infiltrative lesions scattered throughout the mesentery. These are pathologically indeterminant but have increased in size and conspicuity as compared to 08/02/2021. Although this could potentially be on an infectious/inflammatory basis, a neoplastic process such as post transplant lymphoproliferative disorder is the diagnosis of exclusion. Patient states that he has had a biopsy by [facility] transplant physicians in [place] the biopsy came back inconclusive at that time they recommended invasive tissue sample taking although the patient stated that he is unsure he would treat if it were to come back something undesirable subsequently he wished to employ conservative measures following the mass on imaging and read biopsing if it substantially changes. (6) Aneurysm: Plan: Aneurysmal ascending thoracic aorta measuring up to 4.9cm without dissection noted on CTA. No previous vascular imaging of the thoracic aorta available -routine monitoring, serial imaging (7) Abnormal LFTs: Plan: Mildly elevated AST, ALT, AP and Tbili. Patient denies abdominal complaints -Repeat LFTs trending towards improvement (8) History of esophageal reflux: Plan: Chronic. Patient denies abdominal pain, melena or hematochezia. Hemoccult test performed in the ER is NEGATIVE. -Continue Protonix 40mg po daily (9) Hypothyroidism: Plan: TSH WNL on 01/10/23 at 0.461 -Continue Synthroid 125mcg po daily Admission and Anticipated Discharge Date Admission Date: February 03, 2023 Subjective Patient feels that he is getting gout again, he states he has finger pain. Review of Systems Review of Systems: All systems reviewed & are unremarkable except as noted in HPI & below Physical Exam Physical Exam: Patient awake and alert appropriate he looks tired does not look vibrant after transfusion Cardiac exam is regular. No murmurs His lungs are clear without wheezes or crackles Abdomen NABS soft Left elbow she was without warmth but definitely point tender on the olecranon of the elbow Right thumb has the above described skin lesions without expressible fluid index finger: swelling. Results & Data Results & Data Vital Signs (Past 12 Hours) Vital Signs Temp Pulse Resp BP Pulse Ox O2 Del Method 02/04/23 20:00 Room Air 02/04/23 22:29 36.4 C L 96 H 16 122/85 95 Room Air 02/04/23 19:45 92 H 125/81 02/04/23 19:08 36.6 C 92 H 16 103/68 97 Room Air 02/04/23 15:42 36.5 C 88 18 115/81 98 Room Air 02/04/23 12:02 36.7 C 94 H 18 111/75 97 Room Air PG Care Time/CCT Total # of Minutes Spent Total Time Spent with Patient: Total time spent is greater than 50% in coordination of care (as documented) at patient's floor/unit and/or counseling patient: Coding Level of Care Code 51777 SUB INP/OBS CARE MIN Diagnoses Pneumonia J18.9 Symptomatic anemia D64.9 Hx of kidney transplant Z94.0 Atrial fibrillation I48.91 Retroperitoneal mass R19.00 Aneurysm I72.9 Abnormal LFTs R79.89 History of esophageal reflux Z87.19 Hypothyroidism E03.8 Hypothyroidism type: other (9) Hypothyroidism Hypothyroidism type: other Qualified Code(s): E03.8 - Other specified hypothyroidism
[2023-02-05] MEDS: METOPROLOL TARTRATE 25 MG TAB PO SCH ×3 (00:02→12:56)
[2023-02-05] MEDS: PIPERACILLIN/TAZOBACTAM 4.5 GM in DEXTROSE 5% 100 ML IV SCH ×2 (02:02→09:25)
[2023-02-05 07:20] LABS: Hematocrit (blood only) 24.4 % (42.0-52.0); Mean Corpuscular Hemoglobin 33.6 pg (25.0-34.0); Mean Corpuscular Hgb Conc 32.8 g/dL (32.0-36.0); Mean Corpuscular Volume 102.5 fL (80.0-100.0); Mean Platelet Volume 8.9 fL (9.4-12.4); Platelet Count 378 K/uL (130-400); RDW Coefficient of Variation 13.4 % (11.5-14.5); RDW Standard Deviation 49.1 fL (36.4-46.3); Red Blood Count 2.38 M/uL (4.70-6.10); White Blood Count 14.44 K/ul (4.8-10.8)
[2023-02-05 07:37] LABS: BUN Creatinine Ratio 23.4 (10-20); Creatinine Clr Calc Pharmacy 68.4 ml/min; Est GFR (African American) 71.8 ml/min; Est GFR (Non-African American) 61.9 ml/min; Magnesium 1.7 mg/dl (1.7-2.4); Potassium 4.4 mmol/L (3.5-5.1)
[2023-02-05] MEDS: MYCOPHENOLATE MOFETIL 250 MG CAP PO SCH (08:19)
[2023-02-05] MEDS: APIXABAN 5 MG TABLET PO SCH (08:20)
[2023-02-05] MEDS: valACYclovir HCL 500 MG TABLET PO SCH (08:20)
[2023-02-05] MEDS: predniSONE 5 MG TAB PO SCH (08:20)
[2023-02-05] MEDS: PANTOprazole 40 MG TAB PO SCH (08:20)
[2023-02-05] MEDS: LEVOTHYROXINE SODIUM 125 MCG TABLET PO SCH (08:20)
[2023-02-05] MEDS: TACROLIMUS 1 MG CAP PO SCH (08:20)
--- NOTE | 2023-02-05 09:19 | Cardiology Progress Note ---
Date of Service February 05, 2023 Assessment & Plan (1) Atrial fibrillation: (2) Aneurysm: Plan 1. Atrial fibrillation: Rate control appears to be adequate if not optimal. He has no symptoms associated with the arrhythmia. I think we can switch his medical regimen to metoprolol succinate 100 mg daily at the time of discharge. He will continue on Eliquis 5 mg twice daily. Certainly reasonable to be discharged from a cardiac standpoint and follow up in the outpatient setting. 2. Aortic aneurysm: Titrating beta-blockade. Avoid strenuous lifting. Avoid fluoroquinolones. Admission and Anticipated Discharge Date Admission Date: February 03, 2023 Subjective This morning the patient claims to be feeling well. He appeared to have good night's sleep in appears more energetic this morning. He has been ambulatory around his room without significant dizziness or lightheadedness. He denied any breathing difficulty. Not aware of palpitations. No chest pain. Review of Systems Review of Systems: Per HPI Physical Exam Physical Exam: The patient is alert and oriented. Mood and affect appeared normal. He answered all questions appropriately. HEENT: Pupils are equal and reactive to light and accommodation. Extraocular movements are intact. The sclerae are anicteric. Neuro: Cranial nerves intact Lungs: Clear to auscultation bilaterally. He has good air movement without use of accessory muscles. No rales wheezes or rhonchi. Cardiac: Heart demonstrates an irregular rate and rhythm. Normal S1 and S2. No murmurs on examination. Pulses: The patient has palpable radial pulses bilaterally that are equal in intensity Extremities: There was no evidence of hypoperfusion. There is no cyanosis or clubbing. There is no edema. Skin: I did not appreciate any rashes on examination today. Results & Data Vital Signs (Past 12 Hours) Vital Signs Temp Pulse Pulse Resp BP Pulse Ox O2 Del Method 02/05/23 07:00 85 02/05/23 07:04 36.3 C L 83 19 110/73 92 Room Air 02/05/23 05:47 90 115/88 02/05/23 02:49 36.4 C L 92 H 16 122/80 96 Room Air 02/04/23 22:02 89 02/04/23 22:29 36.4 C L 96 H 16 122/85 95 Room Air Laboratory Results Abnormal Lab Results 02/04/23 02/05/23 02/05/23 08:42 06:57 06:57 WBC 14.44 H RBC 2.38 L Hgb 8.0 L Hct 24.4 L MCV 102.5 H MCH 33.6 MCHC 32.8 RDW Std Deviation 49.1 H RDW Coeff of Jaye 13.4 Plt Count 378 MPV 8.9 L Sodium 136 136 Potassium 4.1 4.4 Chloride 107 107 Carbon Dioxide 23 22 Anion Gap 6 7 BUN 25 H 29 H Creatinine 1.18 1.24 Est Cr Clr Drug Dosing 73.1 68.4 Est GFR ( Amer) 76.2 71.8 Est GFR (Non-Af Amer) 65.7 61.9 BUN/Creatinine Ratio 21.2 H 23.4 H Glucose 117 H 112 H Calcium 9.0 9.0 Magnesium 1.4 L 1.7 PG Care Time/CCT Total # of Minutes Spent Total Time Spent with Patient: Total time spent is greater than 50% in coordination of care (as documented) at patient's floor/unit and/or counseling patient: Coding Level of Care Code 57169 SUB INP/OBS CARE 2/35MIN Diagnoses Atrial fibrillation I48.91 Aneurysm I72.9
[2023-02-05] MEDS ORDERED: predniSONE 20 MG TAB PO STA (11:57)
--- NOTE | 2023-02-05 12:51 | Electrocardiogram Report ---
Test Reason : Blood Pressure : / mmHG Vent. Rate : 078 BPM Atrial Rate : 277 BPM P-R Int : 000 ms QRS Dur : 154 ms QT Int : 420 ms P-R-T Axes : 000 -29 004 degrees QTc Int : 478 ms Probably atrial fibrillation although atrial flutter could be considered Right bundle branch block Moderate voltage criteria for LVH, may be normal variant Abnormal ECG Confirmed by Kannan Otto ([id number]) on 02/05/2023 12:51:06 PM Referred By: REFERRED SELF Confirmed By:Jerrod Otto
[2023-02-05] MEDS: DAPTOmycin 325 MG in SYRINGE 0 ML IV SCH (15:30)
--- NOTE | 2023-02-05 15:36 | Discharge Summary ---
Date of Service February 05, 2023 Admission HPI Per Admitting Provider Gumaro Mandel is a 62yo male with history of FSGS s/p renal transplant on immunosuppressive therapy with Mycphenolate mofetil, Tacrolimus and Prednisone presenting with SOB. Patient reports having URI symptoms approximately 1 week ago - predominantly congestion and productive cough. He reports his symptoms have overall been improving until yesterday when he experienced worsening SOB, STOCK and generalized weakness and fatigue. He denies fever, chills, chest pain, palpitations, nausea, vomiting, diarrhea or constipation. No urinary complaints, no pain over transplant. No melena/hematochezia, no dizziness or syncope. Patient bumped his left elbow and notes significant pain and decreased mobility. In the ER he is afebrile, HD stable, NAD. ER Course: Zosyn - ordered - not yet given Albuterol 3mL neb Pepcid 20mg IV Zofran 4mg IV Protonix 80mg IV Discharge Data Allergies Allergy/AdvReac Type Severity Reaction Status Date / Time clopidogrel [From Plavix] Allergy Unknown Unknown Verified 01/31/23 02:51 Cnapico-LYV-SqD Reductase AdvReac Intermediate myalgias Verified 01/31/23 02:51 Inhibitor [Invuqhi-Baq-Xjo Reductase Inhibitor] Consultations 01/31/23 03:56 ED Decision to Admit Stat 02/02/23 13:32 Consult Infectious Diseases Routine 02/03/23 12:18 Consult Cardiology Routine Ordered Studies 01/31/23 02:44 CT angio chest PE protocol Stat Hospital Course (1) Pneumonia: acute bilateral pneumonia on presentation concern for gram negative, MRSA screen - 01/31/2023 immunosuppressive therapy for his renal transplant - Tacrolimus, mycophenolate mofetil and prednisone. Respiratory Biofire panel is NEGATIVE. -Zosyn initiated in the ER - will continue, complete 7 days course -Check blood cultures x 2 no growth at 48 hours Tender olecranon without olecranon bursitis seen Concern of right thumb for being herpetic maria and/or secondary staph infection current discussion with infectious disease whether consult is warranted given his immunosuppressed host with consideration of treating either as staph strep organisms that may be resistant to penicillin and/or antiviral medications Appreciate input from ID. will place on a higher dose of prednisone for his gout. (2) Symptomatic anemia: Acute on chronic anemia with Hgb=7.5 and Hct=23. Decreased from 9.5 and 28.9, respectively, on 01/13/23. Elevated UTA=164 baseline. Patient denies blood loss. Mild elevation in Tbili - ?hemolysis -Patient to receive 2u PRBCs, difficulty cross matching, received 2 untis of PRBC on 02/02 Hemoglobin is stable. (3) Hx of kidney transplant: Chronic seemingly stable patient with history of FSGS s/p renal transplant. He is on Tacrolimus, mycophenolate mofetil and Prednisone therapy -Continue home medications for now. Patient did receive stress dose steroids earlier in his hospital stay if fatigue persist may reorder these Patient has chronic kidney disease stage III currently holding MEAGAN inhibitor at this time (4) Atrial fibrillation: Patient had a brief run of atrial fibrillation during his blood transfusion whi ch self resolved and to normal sinus rhythm we will continue to follow this development (5) Retroperitoneal mass: Patient with known retroperitoneal mass - present on CT from 03/23/22 as a 3.1 x 2.4 cm infiltrative appearing retroperitoneal soft tissue lesion between the left renal gland and the lower [place] left kidney. Additionally, there are numerous similar appearing infiltrative lesions scattered throughout the mesentery. These are pathologically indeterminant but have increased in size and conspicuity as compared to 08/02/2021. Although this could potentially be on an infectious/inflammatory basis, a neoplastic process such as post transplant lymphoproliferative disorder is the diagnosis of exclusion. Patient states that he has had a biopsy by [facility] transplant physicians in [place] the biopsy came back inconclusive at that time they recommended invasive tissue sample taking although the patient stated that he is unsure he would treat if it were to come back something undesirable subsequently he wished to employ conservative measures following the mass on imaging and read biopsing if it substantially changes. (6) Aneurysm: Aneurysmal ascending thoracic aorta measuring up to 4.9cm without dissection noted on CTA. No previous vascular imaging of the thoracic aorta available -routine monitoring, serial imaging (7) Abnormal LFTs: Mildly elevated AST, ALT, AP and Tbili. Patient denies abdominal complaints -Repeat LFTs trending towards improvement (8) History of esophageal reflux: Chronic. Patient denies abdominal pain, melena or hematochezia. Hemoccult test performed in the ER is NEGATIVE. -Continue Protonix 40mg po daily (9) Hypothyroidism: TSH WNL on 01/10/23 at 0.461 -Continue Synthroid 125mcg po daily Discharge Plan Discharge Items Patient Disposition: Home - Self-Care Reason For Visit: SOB, FATIGUE Discharge Diagnosis: infection Condition on Discharge: Fair Activity: Resume your previous activity Non-emergency contact: Primary Care Provider Call non-emergency contact if: you have any medication questions Follow-up/Referrals: Santos Rivers MD [Primary Care Provider] - Diet: Heart Healthy Addtl Attending Provider Instructions: recommend followup with PCP in 2 weeks Take the metoprolol at 6 pm Daily. Pending Studies at Discharge: No Stand-Alone Forms: My [facility] [employer], Smoking Cessation Medications and DC Order Prescriptions: New valacyclovir 500 mg Tablet 1,000 mg PO BID Qty: 8 0RF amoxicillin-pot clavulanate 875-125 mg tablet 1 tab PO BID Qty: 4 0RF prednisone 10 mg tablet See Rx Instructions .ROUTE .COMPLEX Qty: 32 0RF Rx Instructions: By mouth once daily in morning: Take 4 tabs for 5 days then 3 tabs for 2 days 2 tabs for 2 days 1 tab for 2 days Eliquis 5 mg Tablet 5 mg PO BID Qty: 60 0RF metoprolol succinate 100 mg tablet extended release 24 hr 100 mg PO DAILY Qty: 30 0RF Rx Instructions: Take at 6pm Continued mycophenolate mofetil 250 mg capsule 500 mg PO BID Qty: 360 3RF magnesium oxide 500 mg tablet 500 mg PO DAILY Qty: 90 3RF tacrolimus 1 mg capsule 2 mg PO BID amoxicillin 500 mg capsule 2,000 mg PO DIRECTED PRN (Reason: PRIOR TO DENTAL PROCEDURES) multivitamin Tablet 1 tab PO DAILY pantoprazole 40 mg tablet,delayed release (DR/EC) 40 mg PO DAILY Rx Instructions: TAKE 1 TABLET BY MOUTH EVERY DAY levothyroxine 125 mcg tablet 125 mcg PO DAILY Rx Instructions: TAKE 1 TABLET BY MOUTH EVERY DAY Held prednisone 5 mg tablet 5 mg PO DAILY Qty: 90 3RF Hold Instructions: Resume on 02/17/23. until your are done with prednisone taper Discontinued aspirin 81 mg tablet,chewable 81 mg PO DAILY Qty: 90 3RF lisinopril 10 mg tablet 10 mg PO DAILY Qty: 90 3RF Rx Instructions: Hypertension, stage 3 chronic kidney disease. Discharge Orders: Discharge Order (Routine); Ordered 02/05/23 Ordered By: Giovanny A Saborio Admission Data Admit Date/Time: 02/03/23 13:07 Attending Provider: Giovanny Israel Admit Provider: Janet Morel Primary Care Provider: Santos Rivers Other Providers: Janet Morel ; Debby Lo ; Rashaun Faustin ; Julienne Gardner ; Zaynab Loomis ; Anaya Bland ; Justa Shell ; Kiya Olivo ; Terese Brandon ; Shabana Vick ; Beto Dooley ; Santana Wing ; Chadd Kohler ; Thompson Gómez ; Artur Benito ; Lopez Heath Jr ; Chauncey Dahl ; Laura Leon ; Loretta Ellison ; Ed Estrada ; Kannan Otto ; Choco Basilio ; Soraida Polk ; Chyna Lynch ; Adriel Phelps ; Kushal Oseguera ; Thompson Richards V. Coding Diagnoses Pneumonia J18.9 Symptomatic anemia D64.9 Hx of kidney transplant Z94.0 Atrial fibrillation I48.91 Retroperitoneal mass R19.00 Aneurysm I72.9 Abnormal LFTs R79.89 History of esophageal reflux Z87.19 Hypothyroidism E03.8 Hypothyroidism type: other
--- NOTE | 2023-02-06 11:34 | Electrocardiogram Report ---
Test Reason : Blood Pressure : / mmHG Vent. Rate : 098 BPM Atrial Rate : 098 BPM P-R Int : 122 ms QRS Dur : 152 ms QT Int : 410 ms P-R-T Axes : 047 -33 -08 degrees QTc Int : 523 ms Poor data quality, interpretation may be adversely affected Normal sinus rhythm Left axis deviation Right bundle branch block Voltage criteria for left ventricular hypertrophy Abnormal ECG When compared with ECG of 05-FEB-2023 07:16, Sinus rhythm now present Confirmed by Chadd Kohler ([id number]) on 02/06/2023 11:33:32 AM Referred By: REFERRED SELF Confirmed By:Chadd Kohler
== END 2023-02-05 16:18 | disposition home or self-care (01) | DRG 178 ==
LOC: ED 02:30 → 2W 02:30 → SUATTDRO 04:36 → 2W 06:08 → SUATTDRO 02-01 09:22 → 2S 02-03 13:56

== ENCOUNTER 2023-07-04 18:24 | Inpatient (IN) ==
[2023-07-04 21:44] LABS: Albumin Globulin Ratio 1.3 (0.9-2); Albumin Level 4.4 gm/dl (3.4-5.0); BUN Creatinine Ratio 14.3 (10-20); Bilirubin,Total 2.5 mg/dl (0.2-1.0); Calcium 9.4 mg/dl (8.6-10.3); Creatinine Clr Calc Pharmacy 57.5 ml/min; Est GFR (African American) 58.4 ml/min; Est GFR (Non-African American) 50.4 ml/min; Globulin 3.5 gm/dl (2.5-4.0); Potassium 4.5 mmol/L (3.5-5.1); Total Protein 7.9 gm/dl (6.0-8.3)
[2023-07-04 22:11] LABS: Hematocrit (blood only) 23.4 % (42.0-52.0); Mean Corpuscular Hemoglobin 37.6 pg (25.0-34.0); Mean Corpuscular Hgb Conc 29.9 g/dL (32.0-36.0); Mean Corpuscular Volume 125.8 fL (80.0-100.0); Mean Platelet Volume 9.9 fL (9.4-12.4); Platelet Count 284 K/uL (130-400); RDW Coefficient of Variation 14.6 % (11.5-14.5); RDW Standard Deviation 66.3 fL (36.4-46.3); Red Blood Count 1.86 M/uL (4.70-6.10)
[2023-07-04 23:09] LABS: Anisocytosis Present; Basophils # (auto) 0.04 K/uL (0.00-0.20); Basophils % (auto) 0.5 %; Eosinophils # (auto) 0.17 K/uL (0.00-0.50); Eosinophils % (auto) 2.3 %; Immature Granulocytes # (auto) 0.05 K/uL (0.01-0.20); Immature Granulocytes % (auto) 0.7 %; Lymphocytes # (auto) 0.84 K/uL (1.20-3.40); Lymphocytes % (auto) 11.5 %; Macrocytosis Present; Monocytes # (auto) 0.45 K/uL (0.11-0.59); Monocytes % (auto) 6.2 %; Neutrophils # (auto) 5.75 K/uL (1.40-6.50); Neutrophils % (auto) 78.8 %; Polychromasia 1+
[2023-07-04] MEDS ORDERED: SODIUM CHLORIDE 0.9% 250 ML IV PRN (23:43)
--- NOTE | 2023-07-05 07:03 | Emergency Department Note ---
ED Visit Note I received signout from Dr. Josue. Patient does have a known history of chronic anemia was 6.0 as an outpatient here 7.0 refusing admission at this time. Patient reportedly was asymptomatic and does have some chronic anemia. Patient is refusing admission at this time so is pending transfusion. I evaluate the patient is stated to be doing well. The patient was ordered his home medications as well as a diet order. I subsequent reassessed the patient stated I will follow-up in when he would receive his blood. Was told that he would likely have this sent by 8 PM this evening. Patient was signed out to Dr. Brian pending reevaluation disposition. OBS NOTE The patient was placed in observation status at 0630 for possible transfusion and anemia. During the time in observation, the patient was frequently reassessed and received patient's home medications and reassessment. On Final reassessment the patient pending transfusion and the patient will be continued patient at this time at this time. A total observation time of 8 hours and 30 minutes. .
[2023-07-05] MEDS ORDERED: LEVOTHYROXINE SODIUM 125 MCG TABLET PO SCH (10:30)
[2023-07-05] MEDS ORDERED: NON-FORMULARY MEDICATION (Calcium 500 mg Tablet) PO SCH (10:30)
[2023-07-05] MEDS: lisinopril 10 MG TAB PO SCH (11:00)
[2023-07-05] MEDS: APIXABAN 5 MG TABLET PO SCH ×2 (11:01→20:22)
[2023-07-05] MEDS: FOLIC ACID 1 MG TAB PO SCH ×2 (11:01→20:22)
[2023-07-05] MEDS: PANTOprazole 40 MG TAB PO SCH (11:04)
[2023-07-05] MEDS: predniSONE 5 MG TAB PO SCH (11:04)
[2023-07-05] MEDS: MYCOPHENOLATE MOFETIL 250 MG CAP PO SCH ×2 (12:32→20:22)
[2023-07-05] MEDS: TACROLIMUS 1 MG CAP PO SCH ×2 (12:33→20:22)
--- NOTE | 2023-07-05 14:15 | Electrocardiogram Report ---
Test Reason : Blood Pressure : / mmHG Vent. Rate : 070 BPM Atrial Rate : 070 BPM P-R Int : 104 ms QRS Dur : 144 ms QT Int : 444 ms P-R-T Axes : 093 -19 059 degrees QTc Int : 479 ms Sinus rhythm with short IL with Premature supraventricular complexes Right bundle branch block Left ventricular hypertrophy with repolarization abnormality ( R in aVL ) Abnormal ECG When compared with ECG of 08-MAY-2023 10:45, Premature supraventricular complexes are now Present T wave inversion now evident in Anterolateral leads Confirmed by Artur Benito ([id number]) on 07/05/2023 2:15:08 PM Referred By: Charlotte Oro Confirmed By:Artur Benito
--- NOTE | 2023-07-05 20:35 | Emergency Department Note ---
ED Visit Note Patient was signed out to me by Dr. Weeks at 16:00 on 07/05/2023. In summary, patient has chronic anemia and had outpatient laboratory work-up performed on 07/04/2023 which showed he was anemic to 6.0. He was offered admission at that time. Patient is still awaiting transfusion of his blood. There has been significant delay in obtaining correct blood for the patient, given his renal transplant history. As of 1999 on 07/05/2023, patient's blood was still not available for transfusion. There is also going to be a transport delay, as the blood has to come from [facility]. I discussed this with the patient, he has not been in the emergency department awaiting a blood transfusion for 26 hours. He does meet full admission criteria and the patient was made aware of this. [facility] and management and future transfusion once his blood becomes available. .
[2023-07-05] MEDS ORDERED: METOPROLOL SUCC 50MG EXT REL TAB PO SCH (21:00)
[2023-07-05 21:23] LABS: Hematocrit (blood only) 17.1 % (42.0-52.0); Hemoglobin 6.7 g/dl (14.0-18.0)
--- NOTE | 2023-07-05 21:26 | History & Physical Report ---
Date of Service July 05, 2023 Assessment & Plan (1) Anemia: Plan: Acute on chronic anemia; asymptomatic Hgb 6.0 --> 7.0 --> 6.7 while in the ED Patient awaiting blood transfusion, but due to renal transplant history /difficulty with crossmatch, blood transfusion has been delayed; patient will be admitted 1 unit PRBCs planned at this time; consent form obtained A.m. CBC, BMP (2) Hx of kidney transplant: Plan: History of FSGS s/p renal transplant in 2009 Continue to monitor renal function with daily BMPs Consider holding lisinopril should renal function decline (3) Atrial fibrillation: Plan: Per patient, and note on 02/03/2023, patient had a brief run of A-fib while receiving his last blood transfusion in January 2023 Continuous telemetry monitoring Continue apixaban and metoprolol (4) Hypomagnesemia: Plan: Mag 1.5 on arrival Consider adding mag sulfate 2g IV for repletion Plan Admit to [facility] with telemetry Full code Regular diet VTE PPx: On Eliquis History of Present Illness Chief Complaint: Abnormal outpatient lab (Hgb 6.0) Primary Care Provider: Santos Rivers MD Gumaro is a 62-year-old male with PMH of A-fib and FSGS s/p kidney transplant in 2009 (on immunosuppressive therapy with tacrolimus, prednisone, and mycophenolate mofetil). He presents to the ED following outpatient lab work that showed Hgb at 6.0. Patient had a blood transfusion back in January 2023; no reaction to last blood transfusion, per pt. He is asymptomatic at this time. While he initially refused admission, he meets admission criteria based on need for blood transfusion, and has been in the emergency department awaiting a blood transfusion for 27 hours at this time. There has been a significant delay in obtaining blood due to patient's renal transplant history and presence of antibodies. Vital stable at time of admission. ED course: NSS, patient's home medications were continued in the ED ROS: Patient denies headache, CP, SOB, abdominal pain, N/V/D, urinary symptoms, or pains/swelling legs. Please see Dr. Morel's attestation for any changes to treatment plan. Allergies Allergy/AdvReac Type Severity Reaction Status Date / Time clopidogrel [From Plavix] Allergy Unknown Unknown Verified 07/05/23 08:04 Ufplhsp-PPX-SgZ Reductase AdvReac Intermediate myalgias Verified 07/05/23 08:04 Inhibitor [Kncmrna-Jue-Vyt Reductase Inhibitor] Home Medications Medication Instructions Recorded Confirmed Type magnesium oxide 500 mg tablet 500 mg PO DAILY #90 tabs 06/06/19 07/05/23 Rx prednisone 5 mg tablet 5 mg PO DAILY #90 tabs 07/23/19 07/05/23 Rx mycophenolate mofetil 250 mg 500 mg PO BID #360 caps 05/29/20 07/05/23 Rx capsule amoxicillin 500 mg capsule 2,000 mg PO DIRECTED PRN PRIOR 07/29/20 07/05/23 History TO DENTAL PROCEDURES multivitamin 1 tab PO QAM 08/02/21 07/05/23 History tacrolimus 1 mg capsule, 2 mg PO BID 07/08/22 07/05/23 History immediate-release pantoprazole 40 mg tablet,delayed 40 mg PO DAILY 01/31/23 07/05/23 History release lisinopril 10 mg tablet 10 mg PO DAILY #90 tabs 02/17/23 07/05/23 Rx apixaban 5 mg tablet (Eliquis) 5 mg PO BID #60 tabs 03/08/23 07/05/23 Rx levothyroxine 125 mcg tablet 125 mcg PO DAILY #90 tabs 04/04/23 07/05/23 Rx calcium 500 mg tablet 500 mg PO QAM 05/02/23 07/05/23 History folic acid 1 mg tablet 1 mg PO BID #60 tabs 05/15/23 07/05/23 Rx metoprolol succinate 100 mg 100 mg PO HS 07/05/23 07/05/23 History tablet,extended release 24 hr Past Med/Surg History Medical History Adrenal nodule [place] PCP considering adrenal protocol CT or MRI for characterization Anemia hospitalized at [facility] 01/2023, received blood transfusion Atrial fibrillation controlled w/ metoprolol and reason for Eliquis; states is being managed by PCP, no cardio at this time Chronic kidney disease, stage 3a 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 History of blood transfusion 01/2023 History of COVID-19 07/2020- covid pneumonia, hospitalized; resolved History of CVA (cerebrovascular accident) 2008, mild memory changes History of esophageal reflux controlled, stable per pt History of renal dialysis prior to kidney transplant; has dialysis fistula left arm Hx of herpetic maria Hyperlipidemia Hypertension controlled, stable per pt Hypothyroidism Limb alert care status left arm restriction Obesity Osteoporosis Retroperitoneal mass lesion biopsy negative for malignancy 05/2022 per transplant record 03/17/23 Thoracic ascending aortic aneurysm 4.9 cm on chest CTA 01/31/23 Surgical History History of colonoscopy Hx of cholecystectomy Hx of exploratory laparotomy H[place] kidney [place] Family History Grandmother (Maternal) Alzheimer disease Mother Depression Denies family history of Ovarian cancer Prostate cancer Diabetes Heart disease Myocardial infarction Breast cancer Lung cancer COPD (chronic obstructive pulmonary disease) Colorectal cancer Hypertension Stroke Social History Smoking Status: Never smoker Second Hand Exposure: No; Do You Dip or Chew Tobacco: No; Hx Alcohol Use: Yes Alcohol type: beer Alcohol Intake Frequency: Monthly or Less Hx Substance Use: No 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: Kazakh Communication Ability: Effective Visual Impairment: No Limitations 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 Metal Required: No Beliefs That Will Affect Care: None marital status: Current Living Situation: Spouse current occupational status: employed current occupation: [employer] How many Children do You have: 1 Feels Safe at Home: Yes Safety Concerns: Feels Safe At This Time Childhood Exposure to Second-Hand Smoke: No Dental Care, Regularly: Yes Seatbelt Use: sometimes Sunscreen Use: No Assistive Devices: Cane Review of Systems Review of Systems: All systems reviewed & are unremarkable except as noted in HPI & below Physical Exam Physical Exam: General: patient appears in no acute distress; appears stated age; well- nourished; cooperative HEENT: normocephalic, atraumatic; no scleral icterus; PERRLA w/ EOMs intact; moist mucus membrane; trachea midline; vision and hearing grossly intact Skin: warm, dry without signs of tenting; no cyanosis; no rashes, bruising, or lesions noted Cardiac: RRR; no new murmurs noted Pulm: no acute respiratory distress; symmetrical chest expansion; clear breath sounds across all lung acuna without adventitious sounds Abdominal: Soft, nontender to palpation; BS present; no ascites; no distention MSK: no tics or fasciculations; +2 pitting edema in the LEs b/l; pulses intact and symmetrical at radial, DP, and PT Neuro: A&Ox3; no tremors; no focal defects Results & Data Results & Data Vital Signs (Past 12 Hours) Vital Signs Pulse Pulse Resp BP BP Pulse Ox O2 Del Method 07/05/23 20:53 75 07/05/23 20:17 81 18 100/64 99 Room Air 07/05/23 18:01 74 16 110/74 07/05/23 17:30 68 19 90/53 L 07/05/23 17:02 71 20 98/69 L 07/05/23 16:01 71 16 118/74 07/05/23 15:31 71 17 109/70 07/05/23 15:01 73 20 112/83 07/05/23 14:00 75 18 113/84 07/05/23 13:30 74 20 113/75 07/05/23 13:01 84 21 126/98 07/05/23 17:02 71 07/05/23 12:18 71 Laboratory Results Abnormal lab results 07/04/23 07/04/23 07/04/23 Range/Units 20:57 20:57 20:57 RBC 1.86 L (4.70-6.10) M/uL Hgb 7.0 L (14.0-18.0) g/dl Hct 23.4 L (42.0-52.0) % MCV 125.8 H (80.0-100.0) fL MCH 37.6 H (25.0-34.0) pg MCHC 29.9 L (32.0-36.0) g/dL RDW Std Deviation 66.3 H (36.4-46.3) fL RDW Coeff of Jaye 14.6 H (11.5-14.5) % Lymph # (Auto) 0.84 L (1.20-3.40) K/uL Chloride 108 H (98-107) mmol/L Creatinine 1.47 H (0.6-1.4) mg/dl Total Bilirubin 2.5 H (0.2-1.0) mg/dl Antibody Screen POSITIVE A Crossmatch See Detail 07/05/23 Range/Units 20:55 RBC (4.70-6.10) M/uL Hgb 6.7 L* (14.0-18.0) g/dl Hct 17.1 L* (42.0-52.0) % MCV (80.0-100.0) fL MCH (25.0-34.0) pg MCHC (32.0-36.0) g/dL RDW Std Deviation (36.4-46.3) fL RDW Coeff of Jaye (11.5-14.5) % Lymph # (Auto) (1.20-3.40) K/uL Chloride (98-107) mmol/L Creatinine (0.6-1.4) mg/dl Total Bilirubin (0.2-1.0) mg/dl Antibody Screen Crossmatch Code Status & VTE Plan Code Status Full code VTE Prophylaxis Plan VTE Prophylaxis will be ordered: Yes Supervising Physician Co-Signing Physician Notes Patient seen and examined, chart reviewed, case discussed with KARMEN Hernandez and I agree with the assessment and plan as above. In brief, patient is a 62yo male with history of FSGS s/p renal transplant in 2009 on immunosuppression therapy with Tacrolimus, CellCept and Prednisone. He presents with anemia noted on outpatient blood work - Hgb of 6 No active bleeding - no melena/hematochezia/hematuria/bruising/bleeding. Rectal exam performed in ER relayed to be NEGATIVE Recently started on oral iron supplementation On exam patient is afebrile, HD stable, NAD Skin - intact, no rash HEENT- NC/AT, MMM Heart - +S1/S2, regular,, no m/r/g Lungs -CTA Abd - soft, NT/ND, no pain over transplant site Ext - warm, well perfused Labs and images reviewed Assessment/Plan - anemia with Hbg of 6.7. Awaiting arrival of blood products from [place] No active bleeding. Patient HD stable. No organ dysfunction -Transfuse when blood products arrive -Check iron panel in AM - may need a dose or two of Venofer -Continue home medications and anti-rejection regimen -Remainder as above PG Care Time/CCT Total # of Minutes Spent Total Time Spent with Patient: Total time spent is greater than 50% in coordination of care (as documented) at patient's floor/unit and/or counseling patient: C[place] [address] INT INP/OBS CARE MIN Patient Type Established Medical Decision Making Straight Forward Diagnoses Anemia D64.9 Hx of kidney transplant Z94.0 Atrial fibrillation I48.91 Hypomagnesemia E83.42
[2023-07-05] MEDS ORDERED: ACETAMINOPHEN 325 MG TAB PO PRN (23:00)
[2023-07-06] MEDS ORDERED: LEVOTHYROXINE SODIUM 125 MCG TABLET PO SCH (06:30)
[2023-07-06 06:49] LABS: BUN Creatinine Ratio 18.9 (10-20); Calcium 8.7 mg/dl (8.6-10.3); Creatinine Clr Calc Pharmacy 70.9 ml/min; Est GFR (African American) 73.2 ml/min; Est GFR (Non-African American) 63.1 ml/min; Potassium 4.5 mmol/L (3.5-5.1)
[2023-07-06 07:15] LABS: Agglutinated RBC 1+; Polychromasia 1+
[2023-07-06] MEDS ORDERED: SODIUM CHLORIDE 0.9% 250 ML IV PRN ×2 (08:05→08:06)
[2023-07-06 08:07] LABS: Red Blood Count 1.92 M/uL (4.70-6.10); White Blood Count 7.05 K/ul (4.8-10.8)
[2023-07-06 08:08] LABS: Hematocrit (blood only) 22.7 % (42.0-52.0); Mean Corpuscular Hemoglobin 36.5 pg (25.0-34.0); Mean Corpuscular Volume 118.2 fL (80.0-100.0); Platelet Count 266 K/uL (130-400); RDW Coefficient of Variation 16.3 % (11.5-14.5); RDW Standard Deviation 71.4 fL (36.4-46.3)
[2023-07-06 08:09] LABS: Mean Corpuscular Hgb Conc 30.8 g/dL (32.0-36.0); Mean Platelet Volume 9.8 fL (9.4-12.4)
[2023-07-06 08:18] LABS: Basophils # (auto) 0.05 K/uL (0.00-0.20); Basophils % (auto) 0.8 %; Eosinophils # (auto) 0.27 K/uL (0.00-0.50); Eosinophils % (auto) 4.2 %; Immature Granulocytes # (auto) 0.05 K/uL (0.01-0.20); Immature Granulocytes % (auto) 0.8 %; Lymphocytes # (auto) 0.54 K/uL (1.20-3.40); Lymphocytes % (auto) 8.4 %; Monocytes # (auto) 0.35 K/uL (0.11-0.59); Monocytes % (auto) 5.4 %; Neutrophils # (auto) 5.18 K/uL (1.40-6.50); Neutrophils % (auto) 80.4 %
[2023-07-06] MEDS: TACROLIMUS 1 MG CAP PO SCH (09:09)
[2023-07-06] MEDS: MYCOPHENOLATE MOFETIL 250 MG CAP PO SCH (09:09)
[2023-07-06] MEDS: APIXABAN 5 MG TABLET PO SCH (09:10)
[2023-07-06] MEDS: FOLIC ACID 1 MG TAB PO SCH (09:10)
[2023-07-06] MEDS: lisinopril 10 MG TAB PO SCH (09:10)
[2023-07-06] MEDS: predniSONE 5 MG TAB PO SCH (10:34)
[2023-07-06] MEDS: PANTOprazole 40 MG TAB PO SCH (10:34)
--- NOTE | 2023-07-06 14:41 | XRay Report ---
TWO VIEW CHEST CLINICAL HISTORY: Anemia. FINDINGS: PA and lateral chest radiographs are compared to chest x-ray and chest CT dated 01/31/2023. The heart is enlarged. The pulmonary vasculature is noncongested. Chronic interstitial thickening is somewhat previous. There is bibasilar scarring/atelectasis. No airspace consolidation or pleural effu belkis is identified. There is no pneumothorax. The skeletal structures are osteopenic. The bony thorax appears intact. Cholecystectomy clips are seen in the right upper quadrant. IMPRESSION: 1. Cardiomegaly with no active disease in the chest. 2. A 12 mm groundglass nodule at the right apex seen on the 01/31/[address] cannot be assessed by x-ray. Follow-up with a dedicated chest CT in 2-3 months time is recommended for evaluation. ACT 112: Negative or not required by law. Electronically signed by: Jay Lewis M.D. 07/06/2023 2:40 PM
--- NOTE | 2023-07-06 15:43 | CT Scan Report ---
ABDOMEN AND PELVIS CT WITHOUT CONTRAST CT DOSE: 1412.25 mGy.cm HISTORY: Chronic renal failure. anemia TECHNIQUE: Multiaxial CT images of the abdomen and pelvis were performed without contrast. A dose lo wering technique was utilized adhering to the principles of ALARA. COMPARISON STUDY: 03/23/2022. FINDINGS: Cardiomegaly with decreased attenuation of the cardiac blood pool compatible with anemia. C oronary artery calcifications. There is mild bibasilar atelectasis/scarring with scattered calcified granulomata of the lung bases. No free air. Mild splenomegaly with scattered calcified splenic granul omata. The spleen measures 15 cm in length. Unremarkable pancreas and right adrenal gland. Infiltrati ve soft tissue attenuating lesion within the left retroperitoneal space superior to the adrenal gland has increased in size, now measuring 3.6 x 2.4 cm, previously 3.1 x 2.4 cm. Cholecystectomy. Unremar kable liver. Marked atrophy of the [place] kidneys. No hydronephrosis. Right lower quadrant renal transplant with m ild perinephric stranding probable proteinaceous or hemorrhagic cyst of the transplanted right kidney measuring 7 mm. Decompressed urinary bladder with wall thickening. Mild prostamegaly. Atherosclerosi s of aorta without aneurysm. Moderate-sized hiatal hernia. There is no small bowel obstruction. Colon ic diverticulosis without acute diverticulitis. Mild colonic fecal retention. Normal appendix. Scatte red ill-defined nodular soft tissue attenuating foci throughout the mesentery have progressed from th e prior study (Please see the bookmarks). Prior ventral abdominal wall herniorrhaphy. Severe degenera tion of the right hip redemonstrated. No acute fracture. IMPRESSION: 1. Progressive infiltrative soft tissue attenuating foci throughout the retroperitoneum and mesentery compared to the study from 03/23/2022. A lymphoproliferative disorder is the diagnosis of exclusion. 2. Severe atrophy of the [place] kidneys with right lower quadrant renal transplant demonstrating mild nonspecific perinephric stranding without hydronephrosis. 3. Colonic diverticulosis. 4. Moderate-sized hiatal hernia. 5. Cardiomegaly with evidence of anemia. 6. Additional findings as above. ACT 112: Negative or not required by law. The above report was generated using voice recognition software. It may contain grammatical, syntax o r spelling errors. Dictated: 07/06/2023 2:42 PM Transcribed: 07/06/2023 3:28 PM Ryland [id number] [email or web address] Electronically signed by: Darion Garcia M.D. 07/06/2023 3:41 PM
[2023-07-06 16:09] LABS: Hemoglobin 7.9 g/dl (14.0-18.0)
--- NOTE | 2023-07-06 16:51 | Discharge Summary ---
Date of Service July 06, 2023 Admission HPI Per Admitting Provider Gumaro is a 62-year-old male with PMH of A-fib and FSGS s/p kidney transplant in 2009 (on immunosuppressive therapy with tacrolimus, prednisone, and mycophenolate mofetil). He presents to the ED following outpatient lab work that showed Hgb at 6.0. Patient had a blood transfusion back in January 2023; no reaction to last blood transfusion, per pt. He is asymptomatic at this time. While he initially refused admission, he meets admission criteria based on need for blood transfusion, and has been in the emergency department awaiting a blood transfusion for 27 hours at this time. There has been a significant delay in obtaining blood due to patient's renal transplant history and presence of antibodies. Vital stable at time of admission. ED course: NSS, patient's home medications were continued in the ED ROS: Patient denies headache, CP, SOB, abdominal pain, N/V/D, urinary symptoms, or pains/swelling legs. Please see Dr. Morel's attestation for any changes to treatment plan. Principal Diagnosis anemia Discharge Exam General: patient appears in no acute distress; appears stated age; well-n ourished; cooperative HEENT: normocephalic, atraumatic Skin: warm, dry Cardiac: RRR; no new murmurs noted Pulm: n clear breath sounds Abdominal: Soft, nontender to palpation; BS present; no ascites; no distention Neuro: A&Ox3; no tremors; no focal defects Discharge Data Allergies Allergy/AdvReac Type Severity Reaction Status Date / Time clopidogrel [From Plavix] Allergy Unknown Unknown Verified 07/05/23 08:04 Wrwvryh-QMW-JaI Reductase AdvReac Intermediate myalgias Verified 07/05/23 08:04 Inhibitor [Qxedisa-Cyh-Khs Reductase Inhibitor] Consultations 07/05/23 21:03 ED Decision to Admit Stat Ordered Studies 07/06/23 13:25 CT Abd and Pelvis [CT abd pelvis wo con] Routine TWO VIEW CHEST CLINICAL HISTORY: Anemia. FINDINGS: PA and lateral chest radiographs are compared to chest x-ray and chest CT dated 01/31/2023. The heart is enlarged. The pulmonary vasculature is noncongested. Chronic interstitial thickening is somewhat previous. There is bibasilar scarring/atelectasis. No airspace consolidation or pleural effusion is identified. There is no pneumothorax. The skeletal structures are osteopenic. The bony thorax appears intact. Cholecystectomy clips are seen in the right upper quadrant. IMPRESSION: 1. Cardiomegaly with no active disease in the chest. 2. A 12 mm groundglass nodule at the right apex seen on the 01/31/[address] cannot be assessed by x-ray. Follow-up with a dedicated chest CT in 2-3 months time is recommended for evaluation. ABDOMEN AND PELVIS CT WITHOUT CONTRAST CT DOSE: 1412.25 mGy.cm HISTORY: Chronic renal failure. anemia TECHNIQUE: Multiaxial CT images of the abdomen and pelvis were performed without contrast. A dose lowering technique was utilized adhering to the principles of ALARA. COMPARISON STUDY: 03/23/2022. FINDINGS: Cardiomegaly with decreased attenuation of the cardiac blood pool compatible with anemia. Coronary artery calcifications. There is mild bibasilar atelectasis/scarring with scattered calcified granulomata of the lung bases. No free air. Mild splenomegaly with scattered calcified splenic granulomata. The spleen measures 15 cm in length. Unremarkable pancreas and right adrenal gland. Infiltrative soft tissue attenuating lesion within the left retroperitoneal space superior to the adrenal gland has increased in size, now measuring 3.6 x 2.4 cm, previously 3.1 x 2.4 cm. Cholecystectomy. Unremarkable liver. Marked atrophy of the [place] kidneys. No hydronephrosis. Right lower quadrant renal transplant with mild perinephric stranding probable proteinaceous or hemorrhagic cyst of the transplanted right kidney measuring 7 mm. Decompressed urinary bladder with wall thickening. Mild prostamegaly. Atherosclerosis of aorta without aneurysm. Moderate-sized hiatal hernia. There is no small bowel obstruction. Colonic diverticulosis without acute diverticulitis. Mild colonic fecal retention. Normal appendix. Scattered ill-defined nodular soft tissue attenuating foci throughout the mesentery have progressed from the prior study (Please see the bookmarks). Prior ventral abdominal wall herniorrhaphy. Severe degeneration of the right hip redemonstrated. No acute fracture. IMPRESSION: 1. Progressive infiltrative soft tissue attenuating foci throughout the retroperitoneum and mesentery compared to the study from 03/23/2022. A lymphoproliferative disorder is the diagnosis of exclusion. 2. Severe atrophy of the [place] kidneys with right lower quadrant renal transplant demonstrating mild nonspecific perinephric stranding without hydronephrosis. 3. Colonic diverticulosis. 4. Moderate-sized hiatal hernia. 5. Cardiomegaly with evidence of anemia. 6. Additional findings as above. ACT 112: Negative or not required by law. Hospital Course (1) Anemia: Acute on chronic anemia; asymptomatic Hgb 6.0 --> 7.0 --> 6.7 while in the ED Patient received unit of blood on 07/06 in the AM. Hemoglbon only increased to 6.9-7.0 Ordered an additional unit of PRBC. Increased to 7.9 Patient will be discharged with close followup of his hemoglobin on 07/07 and 07/10 Chest x ray and ct scan of abd/pelvis were obtained. Patient will need a repeat ct scan of chest in 3 month to reassess lung nodule. Patient will also need biopsy of adrenal nodule with foci along the mesentery. Patient will schedule a follow up with [facility] to schedule biospy. (2) Hx of kidney transplant: History of FSGS s/p renal transplant in 2009 Continue to monitor renal function with daily BMPs Consider holding lisinopril should renal function decline (3) Atrial fibrillation: Per patient, and note on 02/03/2023, patient had a brief run of A-fib while receiving his last blood transfusion in January 2023 Continuous telemetry monitoring Continue apixaban and metoprolol (4) Hypomagnesemia: Mag 1.5 on arrival continue mag ox. Total Time Total Time Spent Total Time Spent (In Minutes): 35 Discharge Plan Discharge Items Patient Disposition: Home - Self-Care Reason For Visit: LOW HGB, BLOOD TRANSFUSION Discharge Diagnosis: anemia Activity: Resume your previous activity Non-emergency contact: Primary Care Provider Call non-emergency contact if: you have any medication questions Follow-up/Referrals: Santos Rivers MD [Primary Care Provider] - Diet: Regular Addtl Attending Provider Instructions: recommend close followup with PCP within 1 week Recommend rechecking hemoglobin on Monday and Monday. Recommend setting up a biopsy with [facility] to assess that adrenal nodule as it grew. Pending Studies at Discharge: No Stand-Alone Forms: My [employer], Smoking Cessation Medications and DC Order Prescriptions: Continued prednisone 5 mg tablet 5 mg PO DAILY Qty: 90 3RF Hold Instructions: Resume on 02/17/23. until your are done with prednisone taper mycophenolate mofetil 250 mg capsule 500 mg PO BID Qty: 360 3RF Eliquis 5 mg tablet 5 mg PO BID Qty: 60 5RF levothyroxine 125 mcg tablet 125 mcg PO DAILY Qty: 90 3RF Rx Instructions: TAKE 1 TABLET BY MOUTH EVERY DAY magnesium oxide 500 mg tablet 500 mg PO DAILY Qty: 90 3RF folic acid 1 mg tablet 1 mg PO BID Qty: 60 2RF tacrolimus 1 mg capsule 2 mg PO BID lisinopril 10 mg tablet 10 mg PO DAILY Qty: 90 3RF amoxicillin 500 mg capsule 2,000 mg PO DIRECTED PRN (Reason: PRIOR TO DENTAL PROCEDURES) multivitamin Tablet 1 tab PO QAM metoprolol succinate 100 mg tablet extended release 24 hr 100 mg PO HS Rx Instructions: Take at 6pm pantoprazole 40 mg tablet,delayed release (DR/EC) 40 mg PO DAILY Rx Instructions: TAKE 1 TABLET BY MOUTH EVERY DAY calcium 500 mg Tablet 500 mg PO QAM Discharge Orders: Discharge Order (Routine); Ordered 07/06/23 Ordered By: Giovanny Israel Admission Data Admit Date/Time: 07/05/23 21:54 Attending Provider: Giovanny Israel Admit Provider: Janet Morel Primary Care Provider: Santos Rivers Other Providers: Janet Morel Other Interventions: Discharge Summary Assessment (RN) Last Done: 07/06/23 16:47 Coding Level of Care Code 46256 INP/OBS DISCH >30 MIN Diagnoses Anemia D64.9 Hx of kidney transplant Z94.0 Atrial fibrillation I48.91 Hypomagnesemia E83.42
== END 2023-07-06 17:31 | disposition home or self-care (01) | DRG 812 ==
LOC: ED 18:24 → 2N 07-05 21:54 → SUATTDRO 07-05 21:54 → 2N 07-06 00:12
DX: I48.91 Unspecified atrial fibrillation; Z79.69 Long term (current) use of other immunomodulators and immunosuppressants; Z94.0 Kidney transplant status; E83.42 Hypomagnesemia; Z86.16 Personal history of COVID-19; I12.9 Hypertensive chronic kidney disease with stage 1 through stage 4 chronic kidney disease, or unspecified chronic kidney disease; D64.9 Anemia, unspecified; Z88.8 Allergy status to other drugs, medicaments and biological substances

== ENCOUNTER 2023-07-14 19:46 | Inpatient (IN) ==
[2023-07-14 21:18] LABS: Bilirubin,Total 2.4 mg/dl (0.2-1.0); Calcium 9.1 mg/dl (8.6-10.3); Potassium 4.4 mmol/L (3.5-5.1)
--- NOTE | 2023-07-14 21:22 | Emergency Department Note ---
Impression & Plan Symptomatic anemia, Megaloblastic anemia, Hx of kidney transplant, Chronic kidney disease, stage 3a, KRISSY (acute kidney injury) ED Provider Note CHIEF COMPLAINT: Anemia HISTORY OF PRESENTING ILLNESS: This 62-year-old male patient presents to the emergency department for evaluation of low hemoglobin. The patient has a history of A-fib and FSGS status post kidney transplant in 2009 (on immunosuppressive therapy with tacrolimus, prednisone, and mycophenolate mofetil) as well as acute on chronic anemia. The patient was admitted from 07/05/2023 to 07/06/2023 for anemia with a hemoglobin of 6.0. The patient required admission due to his multiple antibodies and difficulty with finding matched blood. The patient was given 2 units of blood with an increase of his hemoglobin to 7.9 at discharge. The patient's previous blood transfusion prior to this most recent admission was January 2023. The patient states that he had outpatient labs and was told his hemoglobin was 6.8 and was referred to the emergency department. The patient has been having some more SOB with ambulation today compared to normal. Otherwise doesn't have any symptoms per patient. Denies chest pain, abdominal pain, nausea, vomiting, urinary symptoms, changes in his BMs, fevers, cough, or URI symptoms. Denies hematochezia, melena, hematuria, hemoptysis, or hematemesis. He is currently on Eliquis. No previous reaction to blood transfusions per patient. Has not had to require any pretreatment for blood transfusions per patient. The patient had a CT scan of his chest during admission that showed Cardiomegaly with no active disease in the chest. A 12 mm groundglass nodule at the right apex seen on the 01/31/[address] cannot be assessed by x-ray. Follow-up with a dedicated chest CT in 2-3 months time is recommended for evaluation. He also had a CT scan of his abdomen and pelvis with IV contrast at that time that showed progressive infiltrative soft tissue attenuating foci throughout the retroperitoneum and mesentery compared to the study from 03/23/2022. A l ymphoproliferative disorder is the diagnosis of exclusion. Severe atrophy of the [place] kidneys with right lower quadrant renal transplant demonstrating mild nonspecific perinephric stranding without hydronephrosis. Colonic diverticulosis. Moderate-sized hiatal hernia. Cardiomegaly with evidence of anemia. The patient is going to be scheduled for repeat CT scan of the chest in 3 months to reassess the lung nodule as well as a biopsy of the adrenal nodule with foci along the mesentery. REVIEW OF SYSTEMS: See HPI for pertinent positives and pertinent negatives. ALLERGIES: Plavix, Statins MEDICATIONS: See below PAST MEDICAL HISTORY: See below PHYSICAL EXAM: VITALS: Vitals are noted on the nurse's note and reviewed by myself. GENERAL: Non toxic, no acute distress, non-diaphoretic. SKIN: Capillary refill <2 sec. EYES: PERRLA. EOMI. Conjunctivae without injection, sclerae without icterus. NOSE: Patent without discharge. MOUTH: Mucous membranes moist. Uvula midline. Airway patent. NECK: Supple without nuchal rigidity. HEART: Regular rate and rhythm without murmurs gallops or rubs. LUNGS: Clear to auscultation bilaterally without wheezes, rales or rhonchi. No retractions or accessory muscle use. ABDOMEN: Positive bowel sounds x 4. Normal tympanic percussion. Soft, nontender. No masses or organomegaly. Cohn sign negative. No guarding or rebound tenderness. No focal RLQ or LLQ tenderness. MUSCULOSKELETAL: No gross musculoskeletal defects. NEURO: Patient was alert and oriented. No focal neurological deficits. DIFFERENTIAL DIAGNOSIS: Differential diagnosis includes anemia, acute GI bleed, malignancy, AL, PE, pneumonia, infection, or others. ED COURSE AND MEDICAL DECISION MAKING: MONITOR: Continuous cardiac catheterization technologist: Order was placed for continuous cardiac catheterization technologist. Patient was placed on the cardiac catheterization technologist and continuous pulse ox. Patient was noted to be in normal sinus rhythm at an initial rate of 76 bpm per my interpretation. MEDICATIONS GIVEN: Normal saline solution 250 mL bolus. 2 units of packed red blood cells were ordered, but crossmatch was still pending at time of admission. INTERPRETATION OF LABS: I interpreted the labs with full lab results as below in the lab section of this note. White blood cell count normal at 6.47. Hemoglobin low at 6.4. Platelet count normal at 225. BUN elevated at 33 and creatinine elevated at 1.49. Glucose slightly elevated 107. Total bilirubin stable at 2.4. CMP otherwise essentially negative. Blood type A positive with antibody identification and crossmatch still pending. EXTERNAL RECORDS REVIEWED: I reviewed the patient's most recent admission as above. CONSULTATIONS: I spoke with the blood bank to confirm that the patient did not previously receive irradiated blood. Blood bank stated the patient has not received irradiated blood in the past. The blood bank also stated that it would take a while for the patient's blood to be available due to his multiple antibodies. I spoke with the on-call hospitalist for admission as well. MDM SUMMARY: I examined the patient. I reviewed the patient's past admission where he required 2 units of blood due to his acute on chronic anemia. He is having mild shortness of breath with exertion compared to his baseline. He denies any other symptoms or concerns. Denies known source of blood loss. An IV lock was placed and labs were drawn. The patient's hemoglobin is low at 6.4. Blood transfusion consent was obtained from the patient and consent form completed. Because the patient has multiple antibodies and a difficult crossmatch, the blood bank stated that it would be a long time until the patient's blood will be available. Therefore, the patient will be admitted awaiting the results of his blood transfusion. I had a meaningful discussion about this patient with Dr. Starks who agrees with my assessment and the treatment plan. I spoke with the on-call hospitalist who agreed to admit the patient for further management. Please refer to their dictation for further details. The patient's care was transferred in stable condition. DIAGNOSIS: Symptomatic anemia History of kidney transplant with chronic kidney disease stage IIIa Past Med/Surg History Medical History (Updated 07/15/23 @ 05:30 by Adelaida Victor PA-C) Adrenal nodule [place] PCP considering adrenal protocol CT or MRI for characterization Anemia hospitalized at [facility] 01/2023, received blood transfusion Atrial fibrillation controlled w/ metoprolol and reason for Eliquis; states is being managed by PCP, no cardio at this time Chronic kidney disease, stage 3a 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 History of blood transfusion 01/2023 History of COVID-19 07/2020- covid pneumonia, hospitalized; resolved History of CVA (cerebrovascular accident) 2008, mild memory changes History of esophageal reflux controlled, stable per pt History of renal dialysis prior to kidney transplant; has dialysis fistula left arm Hx of herpetic maria Hyperlipidemia Hypertension controlled, stable per pt Hypothyroidism Limb alert care status left arm restriction Obesity Osteoporosis Retroperitoneal mass lesion biopsy negative for malignancy 05/2022 per transplant record 03/17/23 Symptomatic anemia Thoracic ascending aortic aneurysm 4.9 cm on chest CTA 01/31/23 Surgical History (Updated 07/15/23 @ 05:30 by Adelaida Victor PA-C) History of colonoscopy Hx of cholecystectomy Hx of exploratory laparotomy Hx of kidney transplant 02/2010- [facility] [place] Family History Grandmother (Maternal) Alzheimer disease Mother Depression Denies family history of Ovarian cancer Prostate cancer Diabetes Heart disease Myocardial infarction Breast cancer Lung cancer COPD (chronic obstructive pulmonary disease) Colorectal cancer Hypertension Stroke Social History Smoking Status: Never smoker Second Hand Exposure: No; Do You Dip or Chew Tobacco: No; Hx Alcohol Use: Yes Alcohol type: beer Alcohol Intake Frequency: Monthly or Less Hx Substance Use: No 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: Iraqi Communication Ability: Effective Visual Impairment: No Limitations Hearing Ability: Normal Torch Brazer Required: No Beliefs That Will Affect Care: None marital status: Current Living Situation: Spouse current occupational status: employed current occupation: [employer] How many Children do You have: 1 Feels Safe at Home: Yes Childhood Exposure to Second-Hand Smoke: No Dental Care, Regularly: Yes Seatbelt Use: sometimes Sunscreen Use: No Assistive Devices: Cane Allergies Allergies Allergy/AdvReac Type Severity Reaction Status Date / Time clopidogrel [From Plavix] Allergy Unknown Unknown Verified 07/14/23 07:27 Hchpwaa-PZD-SmK Reductase AdvReac Intermediate myalgias Verified 07/14/23 07:27 Inhibitor [Joxgpcl-Ila-Odm Reductase Inhibitor] Home Meds Home Medications Medication Instructions Recorded Confirmed amoxicillin 500 mg capsule 2,000 mg PO DIRECTED PRN PRIOR 07/29/20 07/14/23 TO DENTAL PROCEDURES multivitamin 1 tab PO QAM 08/02/21 07/14/23 tacrolimus 1 mg capsule, 2 mg PO BID 07/08/22 07/14/23 immediate-release pantoprazole 40 mg tablet,delayed 40 mg PO DAILY 01/31/23 07/14/23 release calcium 500 mg tablet 500 mg PO QAM 05/02/23 07/14/23 metoprolol succinate 100 mg 100 mg PO HS 07/05/23 07/14/23 tablet,extended release 24 hr Previous Rx's Medication Instructions Recorded magnesium oxide 500 mg tablet 500 mg PO DAILY #90 tabs 06/06/19 prednisone 5 mg tablet 5 mg PO DAILY #90 tabs 07/23/19 mycophenolate mofetil 250 mg 500 mg PO BID #360 caps 05/29/20 capsule lisinopril 10 mg tablet 10 mg PO DAILY #90 tabs 02/17/23 apixaban 5 mg tablet (Eliquis) 5 mg PO BID #60 tabs 03/08/23 levothyroxine 125 mcg tablet 125 mcg PO DAILY #90 tabs 04/04/23 folic acid 1 mg tablet 1 mg PO BID #60 tabs 05/15/23 Results & Data (ED) Vital Signs Vital Signs - 24 hr 07/14/23 19:59 Temperature 36.5 C Temperature Source Temporal Artery Scan Pulse Rate 70 Respiratory Rate 18 Respiratory Effort / Characteristics Non-Labored Spontaneous Respiratory Depth Normal Blood Pressure 102/61 Blood Pressure Mean 74 Pulse Oximetry 97 Oxygen Delivery Method Room Air Sepsis Recent Fever Within 48 Hours No Sepsis New/Unexplained Change in Mental Status No Sepsis Action Taken by Nursing No Action Required Laboratory Data 07/14/23 20:34 07/14/23 20:34 Lab Results 07/14/23 07/14/23 07/14/23 Range/Units 20:34 20:34 20:34 WBC 6.47 (4.8-10.8) K/ul RBC 1.61 L (4.70-6.10) M/uL Hgb 6.4 L* (14.0-18.0) g/dl Hct 20.3 L* (42.0-52.0) % MCV 126.1 H (80.0-100.0) fL MCH 39.8 H (25.0-34.0) pg MCHC 31.5 L (32.0-36.0) g/dL RDW Std Deviation 58.9 H (36.4-46.3) fL RDW Coeff of Jaye 13.2 (11.5-14.5) % Plt Count 225 (130-400) K/uL MPV 9.9 (9.4-12.4) fL Immature Gran % (Auto) 0.5 % Neut % (Auto) 81.5 % Lymph % (Auto) 8.7 % [place] % (Auto) 7.1 % Eos % (Auto) 1.7 % Baso % (Auto) 0.5 % Neut # (Auto) 5.28 (1.40-6.50) K/uL Lymph # (Auto) 0.56 L (1.20-3.40) K/uL [place] # (Auto) 0.46 (0.11-0.59) K/uL Eos # (Auto) 0.11 (0.00-0.50) K/uL Baso # (Auto) 0.03 (0.00-0.20) K/uL Immature Gran # (Auto) 0.03 (0.01-0.20) K/uL Polychromasia 1+ Sodium 136 (136-145) mmol/L Potassium 4.4 (3.5-5.1) mmol/L Chloride 107 (98-107) mmol/L Carbon Dioxide 22 (21-32) mmol/L Anion Gap 7 (3-11) BUN 33 H (6-23) mg/dl Creatinine 1.49 H (0.6-1.4) mg/dl Est Cr Clr Drug Dosing 58.1 ml/min Est GFR ( Amer) 57.5 ml/min Est GFR (Non-Af Amer) 49.6 ml/min BUN/Creatinine Ratio 22.1 H (10-20) Glucose 107 H (70-99(Fasting)) mg/dl Calcium 9.1 (8.6-10.3) mg/dl Total Bilirubin 2.4 H (0.2-1.0) mg/dl AST 26 (13-39) U/L ALT 14 (7-52) U/L Alkaline Phosphatase 70 (34-104) U/L Total Protein 7.3 (6.0-8.3) gm/dl Albumin 4.0 (3.4-5.0) gm/dl Globulin 3.3 (2.5-4.0) gm/dl Albumin/Globulin Ratio 1.2 (0.9-2) Blood Type A Positive Antibody Screen POSITIVE A Crossmatch See Detail Administered Medications Sodium Chloride (Nss) 500 mls @ 80 mls/hr IV .Q6H15M [facility] Stop: 08/14/23 02:49 Last Admin: 07/15/23 03:23 Dose: 80 mls/hr Documented By: MARLO Discontinued Medications Sodium Chloride (Nss) 250 mls @ 999 mls/hr IV .Q16M ONE Stop: 07/14/23 22:05 Last Admin: 07/15/23 00:30 Dose: 999 mls/hr Documented By: MARLO Discharge Plan Visit Data Chief Complaint: Illness Stated Complaint: LOW HEMAGLOBINS ED Provider: Nic Starks ED Midlevel Provider: Adelaida Victor Discharge Problem: Symptomatic anemia, Megaloblastic anemia, Hx of kidney transplant, Chronic kidney disease, stage 3a, KRISSY (acute kidney injury) Patient Disposition: Admitted As Inpatient Condition: Good Discharge Instructions Interventions: ED Discharge Assessment Last Done: 07/15/23 02:51
[2023-07-14 21:23] LABS: Hematocrit (blood only) 20.3 % (42.0-52.0); Hemoglobin 6.4 g/dl (14.0-18.0); Mean Corpuscular Hemoglobin 39.8 pg (25.0-34.0); Mean Corpuscular Hgb Conc 31.5 g/dL (32.0-36.0); Mean Corpuscular Volume 126.1 fL (80.0-100.0); Mean Platelet Volume 9.9 fL (9.4-12.4); Platelet Count 225 K/uL (130-400); RDW Coefficient of Variation 13.2 % (11.5-14.5); RDW Standard Deviation 58.9 fL (36.4-46.3); Red Blood Count 1.61 M/uL (4.70-6.10); White Blood Count 6.47 K/ul (4.8-10.8)
[2023-07-14 21:24] LABS: Albumin Globulin Ratio 1.2 (0.9-2); BUN Creatinine Ratio 22.1 (10-20); Creatinine Clr Calc Pharmacy 58.1 ml/min; Est GFR (African American) 57.5 ml/min; Est GFR (Non-African American) 49.6 ml/min; Globulin 3.3 gm/dl (2.5-4.0); Total Protein 7.3 gm/dl (6.0-8.3)
--- NOTE | 2023-07-14 21:47 | Emergency Department Note ---
ED Visit Note Staff note: I have reviewed the Patients chart and have discussed this case with my PA. I generally agree with the ED note and findings. .
[2023-07-14] MEDS ORDERED: SODIUM CHLORIDE 0.9% 250 ML IV PRN (21:50)
[2023-07-14] MEDS ORDERED: SODIUM CHLORIDE 0.9% 250 ML IV ONE (21:50)
[2023-07-14 22:19] LABS: Basophils # (auto) 0.03 K/uL (0.00-0.20); Basophils % (auto) 0.5 %; Eosinophils # (auto) 0.11 K/uL (0.00-0.50); Eosinophils % (auto) 1.7 %; Immature Granulocytes # (auto) 0.03 K/uL (0.01-0.20); Immature Granulocytes % (auto) 0.5 %; Lymphocytes # (auto) 0.56 K/uL (1.20-3.40); Lymphocytes % (auto) 8.7 %; Monocytes # (auto) 0.46 K/uL (0.11-0.59); Monocytes % (auto) 7.1 %; Neutrophils # (auto) 5.28 K/uL (1.40-6.50); Neutrophils % (auto) 81.5 %
[2023-07-14 22:20] LABS: Polychromasia 1+
--- NOTE | 2023-07-14 23:26 | History & Physical Report ---
Date of Service July 14, 2023 Assessment & Plan (1) Symptomatic anemia: (2) KRISSY (acute kidney injury): (3) Hx of kidney transplant: (4) Atrial fibrillation: (5) Chronic kidney disease, stage 3a: (6) Benign essential hypertension: Plan Symptomatic anemia/chronic megaloblastic anemia- Has been seen by hematology oncology Dr. Carlos Sheldon at [facility] Status post bone marrow biopsy with report showing no chromosomal abnormalities, no evidence of somatic mutations, hypercellular marrow, stainable iron being absent. Previous transfusions in January 2023, and during last hospitalization of 07/05/2023-07/06/2023 Patient was transfused 2 units PRBCs as ordered by the ED Repeat laboratories afterwards It was noted by hematology oncology that his megaloblastic anemia was likely due to tacrolimus. Suspect apixaban is contributing to the anemia as well Acute kidney injury on CKD/FSGS/kidney transplant status- Creatinine 1.49 on admission with base 1.22 Expect to improve posttransfusion Continue mycophenolate, tacrolimus and prednisone. No stress dosing steroids ne eded Atrial fibrillation/hypertension- Hold antihypertensives Continue apixaban, with apixaban likely contributing to issues with anemia Of note, patient reports that the Eliquis which she reports he gets the brand name as far as he knows was not offered generic, costs him $200 every 3 months, and he reports he is unable to afford this We can see if social insurance specialist has some help in this regard History of Present Illness Chief Complaint: The patient presents to the emergency department with complaint of worsening dyspnea on exertion, particular going up steps over the past week Primary Care Provider: Santos Rivers MD The patient is a 62-year-old male with a past medical history including respiratory failure with hypoxemia, kidney transplant on immunosuppressive medications, megaloblastic anemia, NSTEMI, atrial fibrillation, CKD stage IIIa, AAA, focal segmental glomerulosclerosis, GERD, hypertension and obesity. The patient was admitted to [facility] from 07/05-07/06, for hemoglobin 6.0, received 2 units of PRBCs, with follow-up hemoglobin at 7.9 prior to discharge. Patient is been getting periodic laboratories in the outpatient setting, and today hemoglobin returned at 6.8, and due to symptoms of shortness of breath, wa s referred to the ED for assessment. Laboratories in the emergency department showed hemoglobin of 6.4 and hematocrit 20.3. The patient was ordered 2 units PRBCs by the ED, and was referred for evaluation for admission. The patient has been seen by oncology/hematology Carlos Sheldon MD at [facility], and underwent a bone marrow aspiration biopsy on 06/01/2023 which showed no chromosomal abnormalities, no evidence of somatic mutations, hypercellular marrow, stainable iron being absent. Allergies Allergy/AdvReac Type Severity Reaction Status Date / Time clopidogrel [From Plavix] Allergy Unknown Unknown Verified 07/14/23 07:27 Fjuueuo-DDN-LcM Reductase AdvReac Intermediate myalgias Verified 07/14/23 07: Inhibitor [Qvsewqw-Abu-Cme Reductase Inhibitor] Home Medications Medication Instructions Recorded Confirmed Type magnesium oxide 500 mg tablet 500 mg PO DAILY #90 tabs 06/06/19 07/14/23 Rx prednisone 5 mg tablet 5 mg PO DAILY #90 tabs 07/23/19 07/14/23 Rx mycophenolate mofetil 250 mg 500 mg PO BID #360 caps 05/29/20 07/14/23 Rx capsule amoxicillin 500 mg capsule 2,000 mg PO DIRECTED PRN PRIOR 07/29/20 07/14/23 History TO DENTAL PROCEDURES multivitamin 1 tab PO QAM 08/02/21 07/14/23 History tacrolimus 1 mg capsule, 2 mg PO BID 07/08/22 07/14/23 History immediate-release pantoprazole 40 mg tablet,delayed 40 mg PO DAILY 01/31/23 07/14/23 History release lisinopril 10 mg tablet 10 mg PO DAILY #90 tabs 02/17/23 07/14/23 Rx apixaban 5 mg tablet (Eliquis) 5 mg PO BID #60 tabs 03/08/23 07/14/23 Rx levothyroxine 125 mcg tablet 125 mcg PO DAILY #90 tabs 04/04/23 07/14/23 Rx calcium 500 mg tablet 500 mg PO QAM 05/02/23 07/14/23 History folic acid 1 mg tablet 1 mg PO BID #60 tabs 05/15/23 07/14/23 Rx metoprolol succinate 100 mg 100 mg PO HS 07/05/23 07/14/23 History tablet,extended release 24 hr Past Med/Surg History Medical History (Updated 07/15/23 @ 02:19 by Gary oMtley MD) Adrenal nodule [place] PCP considering adrenal protocol CT or MRI for characterization Anemia hospitalized at [facility] 01/2023, received blood transfusion Atrial fibrillation controlled w/ metoprolol and reason for Eliquis; states is being managed by PCP, no cardio at this time Chronic kidney disease, stage 3a 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 History of blood transfusion 01/2023 History of COVID-19 07/2020- covid pneumonia, hospitalized; resolved History of CVA (cerebrovascular accident) 2008, mild memory changes History of esophageal reflux controlled, stable per pt History of renal dialysis prior to kidney transplant; has dialysis fistula left arm Hx of herpetic maria Hyperlipidemia Hypertension controlled, stable per pt Hypothyroidism Limb alert care status left arm restriction Obesity Osteoporosis Retroperitoneal mass lesion biopsy negative for malignancy 05/2022 per transplant record 03/17/23 Symptomatic anemia Thoracic ascending aortic aneurysm 4.9 cm on chest CTA 01/31/23 Surgical History History of colonoscopy Hx of cholecystectomy Hx of exploratory laparotomy [place] [place] Family History Grandmother (Maternal) Alzheimer disease Mother Depression Denies family history of Ovarian cancer Prostate cancer Diabetes Heart disease Myocardial infarction Breast cancer Lung cancer COPD (chronic obstructive pulmonary disease) Colorectal cancer Hypertension Stroke Social History Smoking Status: Never smoker Second Hand Exposure: No; Do You Dip or Chew Tobacco: No; Hx Alcohol Use: Yes Alcohol type: beer Alcohol Intake Frequency: Monthly or Less Hx Substance Use: No 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: [place] Communication Ability: Effective Visual Impairment: No Limitations Hearing Ability: Normal Executive Vp Required: No Beliefs That Will Affect Care: None marital status: Current Living Situation: Spouse current occupational status: employed current occupation: [email or web address] How many Children do You have: 1 Feels Safe at Home: Yes Childhood Exposure to Second-Hand Smoke: No Dental Care, Regularly: Yes Seatbelt Use: sometimes Sunscreen Use: No Assistive Devices: Cane Review of Systems Review of Systems: The patient denies chest pain, palpitations, cough, lower extremity swelling, sore throat, fevers, chills, sweats, nausea, vomiting, diarrhea , constipation, abdominal pain, pelvic pain, blood in urine or stool, dysuria, urinary frequency or urgency, lightheadedness, dizziness, headache, memory loss, loss of consciousness, rash, imbalance, focal weakness, numbness or tingling in arms or legs, generalized arthralgias or myalgias, back or neck pain, or night sweats. The review of systems is otherwise negative other than for that already noted above, and at least 10 systems have been reviewed. Physical Exam Physical Exam: The patient is awake, alert and oriented 3, well developed and well nourished, normocephalic and atraumatic, lying in bed and in no acute distress. HEENT--PERRL, EOMI, mucous membranes and oropharynx dry. Neck--supple. No JVD. No bruits. Thyroid normal, trachea midline, no adenopathy. Heart--normal S1 and S2. No murmurs, rubs or gallops. Lungs--clear bilaterally, no respiratory distress, no accessory muscle use. Abdomen--normal bowel sounds and soft. Nontender. Nondistended, no hernias or masses, no organomegaly. Extremities--no cyanosis or clubbing. No edema. There are good distal pulses b/l. Dermatologic--looks mildly pale Neurologic--cranial nerves II through XII grossly intact. Rheumatologic--normal range of motion. Psychiatric--normal affect. Results & Data Results & Data Vital Signs (Past 12 Hours) Vital Signs Temp Pulse Resp BP Pulse Ox O2 Del Method 07/14/23 19:59 36.5 C 70 18 102/61 97 Room Air Laboratory Results Laboratory Results WBC 6.47 K/ul (4.8-10.8) 07/14/23 20:34 RBC 1.61 M/uL (4.70-6.10) L 07/14/23 20:34 Hgb 6.4 g/dl (14.0-18.0) L* 07/14/23 20:34 Hct 20.3 % (42.0-52.0) L* 07/14/23 20:34 MCV 126.1 fL (80.0-100.0) H 07/14/23 20:34 MCH 39.8 pg (25.0-34.0) H 07/14/23 20:34 MCHC 31.5 g/dL (32.0-36.0) L 07/14/23 20: RDW Std Deviation 58.9 fL (36.4-46.3) H 07/14/23 20:34 RDW Coeff of Jaye 13.2 % (11.5-14.5) 07/14/23 20:34 Plt Count 225 K/uL (130-400) 07/14/23 20: MPV 9.9 fL (9.4-12.4) 07/14/23 20:34 Immature Gran % (Auto) 0.5 % 07/14/23 20: Neut % (Auto) 81.5 % 07/14/23 20: Lymph % (Auto) 8.7 % 07/14/23: Green % (Auto) 7.1 % 07/14/23 20:34 Eos % (Auto) 1.7 % 07/14/23 20: Baso % (Auto) 0.5 % 07/14/23 20:34 Neut # (Auto) 5.28 K/uL (1.40-6.50) 07/14/23 20:34 Lymph # (Auto) 0.56 K/uL (1.20-3.40) L 07/14/23 20:34 [place] # (Auto) 0.46 K/uL (0.11-0.59) 07/14/23 20:34 Eos # (Auto) 0.11 K/uL (0.00-0.50) 07/14/23 20:34 Baso # (Auto) 0.03 K/uL (0.00-0.20) 07/14/23 20:34 Immature Gran # (Auto) 0.03 K/uL (0.01-0.20) 07/14/23 20:34 Polychromasia 1+ 07/14/23 20:34 Sodium 136 mmol/L (136-145) 07/14/23 20:34 Potassium 4.4 mmol/L (3.5-5.1) 07/14/23 20:34 Chloride 107 mmol/L (98-107) 07/14/23 20:34 Carbon Dioxide 22 mmol/L (21-32) 07/14/23 20:34 Anion Gap 7 (3-11) 07/14/23 20:34 BUN 33 mg/dl (6-23) H 07/14/23 20:34 Creatinine 1.49 mg/dl (0.6-1.4) H 07/14/23 20:34 Est Cr Clr Drug Dosing 58.1 ml/min 07/14/23 20:34 Est GFR ( Amer) 57.5 ml/min 07/14/23 20:34 Est GFR (Non-Af Amer) 49.6 ml/min 07/14/23 20:34 BUN/Creatinine Ratio 22.1 (10-20) H 07/14/23 20:34 Glucose 107 mg/dl (70-99(Fasting)) H 07/14/23 20:34 Calcium 9.1 mg/dl (8.6-10.3) 07/14/23 20:34 Total Bilirubin 2.4 mg/dl (0.2-1.0) H 07/14/23 20:34 AST 26 U/L (13-39) 07/14/23 20:34 ALT 14 U/L (7-52) 07/14/23 20:34 Alkaline Phosphatase 70 U/L (34-104) 07/14/23 20:34 Total Protein 7.3 gm/dl (6.0-8.3) 07/14/23 20:34 Albumin 4.0 gm/dl (3.4-5.0) 07/14/23 20:34 Globulin 3.3 gm/dl (2.5-4.0) 07/14/23 20:34 Albumin/Globulin Ratio 1.2 (0.9-2) 07/14/23 20:34 Blood Type A Positive 07/14/23 20:34 Antibody Screen POSITIVE A 07/14/23 20:34 Crossmatch See Detail 07/14/23 20:34 Code Status & VTE Plan Code Status Full code VTE Prophylaxis Plan VTE Prophylaxis will be ordered: Yes PG Care Time/CCT Total # of Minutes Spent Total Time Spent with Patient: Total time spent is greater than 50% in coordination of care (as documented) at patient's floor/unit and/or counseling patient: Coding Level of Care Code 99278 INT INP/OBS CARE 3/75MIN Diagnoses Symptomatic anemia D64.9 KRISSY (acute kidney injury) N17.9 Hx of kidney transplant Z94.0 Atrial fibrillation I48.91 Chronic kidney disease, stage 3a N18.31 Benign essential hypertension I10
[2023-07-15] MEDS: SODIUM CHLORIDE 0.9% 500 ML IV SCH ×2 (03:23→11:38)
[2023-07-15 05:25] LABS: Albumin Globulin Ratio 1.3 (0.9-2); Albumin Level 3.7 gm/dl (3.4-5.0); BUN Creatinine Ratio 25.4 (10-20); Bilirubin,Total 2.6 mg/dl (0.2-1.0); Calcium 8.7 mg/dl (8.6-10.3); Creatinine Clr Calc Pharmacy 68.7 ml/min; Est GFR (African American) 70.4 ml/min; Est GFR (Non-African American) 60.7 ml/min; Globulin 2.8 gm/dl (2.5-4.0); Magnesium 1.6 mg/dl (1.7-2.4); Potassium 4.3 mmol/L (3.5-5.1); Total Protein 6.5 gm/dl (6.0-8.3)
[2023-07-15 05:51] LABS: Hematocrit (blood only) 16.7 % (42.0-52.0); Hemoglobin 5.8 g/dl (14.0-18.0); Mean Corpuscular Hemoglobin 41.1 pg (25.0-34.0); Mean Corpuscular Hgb Conc 32.4 g/dL (32.0-36.0); Platelet Count 188 K/uL (130-400); RDW Coefficient of Variation 13.5 % (11.5-14.5); RDW Standard Deviation 58.9 fL (36.4-46.3); Red Blood Count 1.41 M/uL (4.70-6.10); White Blood Count 5.44 K/ul (4.8-10.8)
[2023-07-15 05:54] LABS: Basophils # (auto) 0.04 K/uL (0.00-0.20); Basophils % (auto) 0.7 %; Eosinophils % (auto) 3.7 %; Immature Granulocytes # (auto) 0.03 K/uL (0.01-0.20); Immature Granulocytes % (auto) 0.6 %; Lymphocytes # (auto) 0.67 K/uL (1.20-3.40); Lymphocytes % (auto) 12.3 %; Monocytes # (auto) 0.46 K/uL (0.11-0.59); Monocytes % (auto) 8.5 %; Neutrophils # (auto) 4.04 K/uL (1.40-6.50); Neutrophils % (auto) 74.2 %; Polychromasia 1+
[2023-07-15] MEDS: MAGNESIUM SULFATE / D5W 1 GM/100 ML BAG IV SCH ×4 (05:54→13:53)
[2023-07-15] MEDS: PANTOprazole 40 MG TAB PO SCH (08:40)
[2023-07-15] MEDS: TACROLIMUS 1 MG CAP PO SCH ×2 (08:40→21:07)
[2023-07-15] MEDS: FOLIC ACID 1 MG TAB PO SCH ×2 (08:40→21:06)
[2023-07-15] MEDS: MYCOPHENOLATE MOFETIL 250 MG CAP PO SCH ×2 (08:40→21:06)
[2023-07-15] MEDS: LEVOTHYROXINE SODIUM 125 MCG TABLET PO SCH (08:40)
[2023-07-15] MEDS ORDERED: predniSONE 5 MG TAB PO SCH (09:00)
[2023-07-15] MEDS ORDERED: APIXABAN 5 MG TABLET PO SCH (09:00)
--- NOTE | 2023-07-15 11:17 | Oncology Consultation ---
Date of Consultation July 15, 2023 Assessment & Plan (1) Symptomatic anemia: I reviewed the latest labs as well as the report from Dr. Carlos Sheldon MD. It seems he has had an extensive workup for the severe anemia and the outside marrow revealed absence of stainable iron. Recommend blood transfusions to maintain a Hb level of 7 g/dl. Dr. Yusuf from [facility] medicine recommended iron infusion and i completely agree as the patient reports GI upset with oral iron. I had a discussion with Dr. Yusuf and we came to a conclusion to perform a hemolytic work up for this patient's severe anemia. He has had a bone marrow biopsy already which failed to reveal MDS or any other abnormalities with the bone marrow. The work up will include peripheral smear, LDH, gemini and reticulocyte count. I will also check a TSH level. Since he is on oral iron replacement, checking iron levels may not be helpful. There is no real evidence of blood loss. He reports no blood in stool and reportedly had a colonoscopy recently. (2) Abnormal findings on diagnostic imaging of other abdominal regions, inc luding retroperitoneum: Discussed with Dr. Yusuf, at this time we are looking if we can biopsy the retroperitoneal abnormality. Will depend on discussion between IR and [facility]. Plan Thank you for this interesting hematological consult. Hematology service will continue to follow the patient closely and make appropriate recommendations. A total of 60 minutes was spent in counselling, coordination of care and review of prior records. History of Present Illness Attending Physician: Alejandrina Yusuf MD History of Present Illness The patient is a very pleasant 62 y/o male who comes to the [facility] ER with severe anemia. He has a history of renal transplantation in 2009 and has been on immunosuppresive medication (mycophenolate and plaquenil) for the last 13 years. He did come to the hospital earlier this year with severe anemia and at that time he was transfused and discharged. Subsequently he established care with Dr. Carlos Sheldon M.D. for his hematology needs. Reportedly underwent an extensive work up for his severe anemia, including a bone marrow biopsy. He was found to have severe iron deficiency; as he had absence of stainable iron in the bone marrow and started on oral iron replacement. Recently was noted to be anemic again and comes to the ED with a hemoglobin level of 6 gm/dl. Hematology has been consulted to assist in management of this patient with severe anemia. He reports no fever, chills, night sweats, growing lumps. Appetite is preserved and he is not losing any significant weight. Reports no nausea or vomiting. No diarrhea. No bleeding. No blood in stool or urine, though complains of black stool, which i presume are related to oral iron use. No epistaxis or blood in urine. Allergies Allergy/AdvReac Type Severity Reaction Status Date / Time clopidogrel [From Plavix] Allergy Unknown Unknown Verified 07/14/23 07:27 Kixvjuz-HAB-ZxD Reductase AdvReac Intermediate myalgias Verified 07/14/23 07:27 Inhibitor [Xsjdjhj-Kst-Rjw Reductase Inhibitor] Home Medications Medication Instructions Recorded Confirmed Type magnesium oxide 500 mg tablet 500 mg PO DAILY #90 tabs 06/06/19 07/14/23 Rx prednisone 5 mg tablet 5 mg PO DAILY #90 tabs 07/23/19 07/14/23 Rx mycophenolate mofetil 250 mg 500 mg PO BID #360 caps 05/29/20 07/14/23 Rx capsule amoxicillin 500 mg capsule 2,000 mg PO DIRECTED PRN PRIOR 07/29/20 07/14/23 History TO DENTAL PROCEDURES multivitamin 1 tab PO QAM 08/02/21 07/14/23 History tacrolimus 1 mg capsule, 2 mg PO BID 07/08/22 07/14/23 History immediate-release pantoprazole 40 mg tablet,delayed 40 mg PO DAILY 01/31/23 07/14/23 History release lisinopril 10 mg tablet 10 mg PO DAILY #90 tabs 02/17/23 07/14/23 Rx apixaban 5 mg tablet (Eliquis) 5 mg PO BID #60 tabs 03/08/23 07/14/23 Rx levothyroxine 125 mcg tablet 125 mcg PO DAILY #90 tabs 04/04/23 07/14/23 Rx calcium 500 mg tablet 500 mg PO QAM 05/02/23 07/14/23 History folic acid 1 mg tablet 1 mg PO BID #60 tabs 05/15/23 07/14/23 Rx metoprolol succinate 100 mg 100 mg PO HS 07/05/23 07/14/23 History tablet,extended release 24 hr Patient History Medical History (Updated 07/15/23 @ 11:47 by Ba Gonsalez MD) Adrenal nodule [place] PCP considering adrenal protocol CT or MRI for characterization Anemia hospitalized at [facility] 01/2023, received blood transfusion Atrial fibrillation controlled w/ metoprolol and reason for Eliquis; states is being managed by PCP, no cardio at this time Chronic kidney disease, stage 3a 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 History of blood transfusion 01/2023 History of COVID-19 07/2020- covid pneumonia, hospitalized; resolved History of CVA (cerebrovascular accident) 2008, mild memory changes History of esophageal reflux controlled, stable per pt History of renal dialysis prior to kidney transplant; has dialysis fistula left arm Hx of herpetic maria Hyperlipidemia Hypertension controlled, stable per pt Hypothyroidism Limb alert care status left arm restriction Obesity Osteoporosis Retroperitoneal mass lesion biopsy negative for malignancy 05/2022 per transplant record 03/17/23 Symptomatic anemia Thoracic ascending aortic aneurysm 4.9 cm on chest CTA 01/31/23 Surgical History (Updated 07/15/23 @ 05:30 by Adelaida Victor PA-C) History of colonoscopy Hx of cholecystectomy Hx of exploratory laparotomy Hx of kidney transplant 02/2010- [facility] [place] Family History Grandmother (Maternal) Alzheimer disease Mother Depression Denies family history of Ovarian cancer Prostate cancer Diabetes Heart disease Myocardial infarction Breast cancer Lung cancer COPD (chronic obstructive pulmonary disease) Colorectal cancer Hypertension Stroke Social History Smoking Status: Never smoker Second Hand Exposure: No; Do You Dip or Chew Tobacco: No; Hx Alcohol Use: No Hx Substance Use: No 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: Mongolian Communication Ability: Effective Visual Impairment: No Limitations Hearing Ability: Normal Environmental Solutions Engineer Required: No Beliefs That Will Affect Care: None marital status: Current Living Situation: Spouse current occupational status: employed 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 [employer] How many Children do You have: 1 Feels Safe at Home: Yes Safety Concerns: Feels Safe At This Time Childhood Exposure to Second-Hand Smoke: No Dental Care, Regularly: Yes Seatbelt Use: sometimes Sunscreen Use: No Assistive Devices: Cane Results & Data Vital Signs (Past 12 Hours) Vital Signs Pulse Pulse Resp BP BP Pulse Ox O2 Del Method 07/15/23 07:52 56 L 16 109/61 99 Room Air 07/15/23 07:08 56 L 07/15/23 07:07 57 L 16 112/65 96 Room Air 07/15/23 03:24 521 H 07/15/23 05:00 59 L 22 130/69 94 07/15/23 04:30 63 14 142/82 H 92 07/15/23 04:00 59 L 18 125/70 94 07/15/23 03:30 58 L 14 133/69 98 07/15/23 03:00 59 L 16 126/69 95 Room Air 07/15/23 01:00 18 110/74 99 07/15/23 00:30 16 112/72 97 07/15/23 00:00 16 103/66 99
--- NOTE | 2023-07-15 11:36 | History & Physical Bridge Note ---
Date of Service July 15, 2023 History & Physical Bridge Note I have examined the patient, reviewed the History & Physical and in the interval since the performance of the History & Physical I have noted the following changes of clinical significance: Patient still awaiting transfusion of PRBCs. Denies lightheadedness or chest pains or shortness of breath. No abdominal pain. No blood in the stool or urine, no bleeding from anywhere. He actually reports he was not feeling terrible but came to the hospital at the direction of his PCP after his hemoglobin was found to be low. He has not seen his environmental planner since the last admission but did this blood work as requested by the environmental planner. 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 He is willing to have it done here if possible. I discussed his care with hematology/oncology here. Further studies to be ordered. Vitals reviewed Telemetry with normal sinus rhythm and normal rates Gen: AAOx3, NAD HEENT: Anicteric sclerae, EOMI CV: RRR no mgr nl S1S2 Pulm: CTAB no wcr Abd: +BS soft NT ND no masses or hernias, incisional scar right lower abdomen for renal transplant Ext: No edema Skin: No rashes, warm/dry Neuro: Full strength throughout 62-year-old male with history of renal transplant, paroxysmal atrial fibrillation on Eliquis, HTN, CKD stage III, hypothyroidism, AAA, GERD, and worsening macrocytic anemia, here with severe anemia. -Awaiting transfusion as blood products have to come from [place] due to allo antibodies-transfuse to hemoglobin at least 7. Fortunately, patient is hemodynamically stable and fairly asymptomatic. -Recent iron studies, B12, folate, and TSH all in the last month or so are normal-no need to repeat at this time -Consult hematology/oncology for further evaluation -Given elevated total bilirubin, and history of previous elevated reticulocyte count, needs more of a work-up for hemolysis-check peripheral smear, follow LDH, haptoglobin, total bilirubin, and reticulocyte count as well as Tawanna test-hematology inform you that they will order the work-up for hemolysis -Given possible lymphoproliferative disorder seen on CT abdomen/pelvis, will hold Eliquis and consult to see if IR can perform CT-guided biopsy at this facility on Monday to expedite the work-up for lymphoma -DC IV fluids as he is tolerating p.o. without difficulty and renal function back to baseline
--- NOTE | 2023-07-15 11:43 | Hospitalist Progress Note ---
Date of Service July 15, 2023 Assessment & Plan (1) Symptomatic anemia: Plan: 62-year-old male with history of renal transplant, paroxysmal atrial fibrillation on Eliquis, HTN, CKD stage III, hypothyroidism, AAA, GERD, and worsening macrocytic anemia, here with severe anemia. -Awaiting transfusion as blood products have to come from [place] due to allo antibodies-transfuse to hemoglobin at least 7. Fortunately, patient is hemodynamically stable and fairly asymptomatic. -Recent iron studies, B12, folate, and TSH all in the last month or so are normal-no need to repeat at this time -Consult hematology/oncology for further evaluation -Given elevated total bilirubin, and history of previous elevated reticulocyte count, needs more of a work-up for hemolysis-check peripheral smear, follow LDH, haptoglobin, total bilirubin, and reticulocyte count as well as Tawanna test- hematology inform you that they will order the work-up for hemolysis -Given possible lymphoproliferative disorder seen on CT abdomen/pelvis, will hold Eliquis and consult to see if IR can perform CT-guided biopsy at this facility on Monday to expedite the work-up for lymphoma -DC IV fluids as he is tolerating p.o. without difficulty and renal function back to baseline (2) KRISSY (acute kidney injury): Plan: Back to baseline DC IV fluids (3) Hx of kidney transplant: Plan: Continue tacrolimus and mycophenolate, prednisone (4) Atrial fibrillation: Plan: Paroxysmal A-fib, has not followed up with cardiology since admission for such in January of this year. Is in sinus rhythm here Continue Toprol-XL and will hold Eliquis for possible biopsy on Monday Monitor on telemetry (5) Chronic kidney disease, stage 3a: Plan: Creatinine at baseline currently 1.2, s/p renal transplant -Avoid nephrotoxins -renally dose meds when appropriate -follow BMP (6) Benign essential hypertension: Plan: Blood pressures are controlled Continue metoprolol Plan Dispo-continued stay on telemetry Admission and Anticipated Discharge Date Admission Date: July 14, 2023 Subjective Patient still awaiting transfusion of PRBCs. Denies lightheadedness or chest pains or shortness of breath. No abdominal pain. No blood in the stool or urine, no bleeding from anywhere. He actually reports he was not feeling terrible but came to the hospital at the direction of his PCP after his hemogl obin was found to be low. He has not seen his clinical cytogenetics director since the last admission but did this blood work as requested by the clinical cytogenetics director. 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 He is willing to have it done here if possible. I discussed his care with hematology/oncology here. Further studies to be ordered. Physical Exam Physical Exam: Vitals reviewed Telemetry with normal sinus rhythm and normal rates Gen: AAOx3, NAD HEENT: Anicteric sclerae, EOMI CV: RRR no mgr nl S1S2 Pulm: CTAB no wcr Abd: +BS soft NT ND no masses or hernias, incisional scar right lower abdomen for renal transplant Ext: No edema Skin: No rashes, warm/dry Neuro: Full strength throughout Results & Data Results & Data Vital Signs (Past 12 Hours) Vital Signs Pulse Pulse Resp BP BP Pulse Ox O2 Del Method 07/15/23 11:00 63 18 110/75 100 Room Air 07/15/23 07:52 56 L 16 109/61 99 Room Air 07/15/23 07:08 56 L 07/15/23 07:07 57 L 16 112/65 96 Room Air 07/15/23 03:24 521 H 07/15/23 05:00 59 L 22 130/69 94 07/15/23 04:30 63 14 142/82 H 92 07/15/23 04:00 59 L 18 125/70 94 07/15/23 03:30 58 L 14 133/69 98 07/15/23 03:00 59 L 16 126/69 95 Room Air 07/15/23 01:00 18 110/74 99 07/15/23 00:30 16 112/72 97 07/15/23 00:00 16 103/66 99 Laboratory Results CBC, CMP, magnesium reviewed PG Care Time/CCT Total # of Minutes Spent Total Time Spent with Patient: Total time spent is greater than 50% in coordination of care (as documented) at patient's floor/unit and/or counseling patient: Coding Level of Care Code 58620 SUB INP/OBS CARE 3/50MIN Diagnoses Symptomatic anemia D64.9 KRISSY (acute kidney injury) N17.9 Hx of kidney transplant Z94.0 Atrial fibrillation I48.91 Chronic kidney disease, stage 3a N18.31 Benign essential hypertension I10
[2023-07-15 13:17] LABS: Reticulocyte % 16.4 % (0.5-2.0); Reticulocytes # 0.19 10^6/uL (0.02-0.10)
[2023-07-15 13:38] LABS: Thyroid Stimulating Hormone 0.722 uIu/ml (0.300-4.500)
[2023-07-15] MEDS ORDERED: SODIUM CHLORIDE 0.9% 250 ML IV PRN (18:48)
[2023-07-15] MEDS ORDERED: predniSONE 20 MG TAB PO STA (18:57)
[2023-07-15] MEDS ORDERED: ACETAMINOPHEN 325 MG TAB PO STA (22:51)
[2023-07-16] MEDS: LEVOTHYROXINE SODIUM 125 MCG TABLET PO SCH (06:49)
[2023-07-16 07:54] LABS: Albumin Globulin Ratio 1.3 (0.9-2); Albumin Level 3.9 gm/dl (3.4-5.0); BUN Creatinine Ratio 26.4 (10-20); Bilirubin,Total 3.8 mg/dl (0.2-1.0); Calcium 8.8 mg/dl (8.6-10.3); Creatinine Clr Calc Pharmacy 68.9 ml/min; Est GFR (African American) 71.1 ml/min; Est GFR (Non-African American) 61.3 ml/min; Globulin 3.1 gm/dl (2.5-4.0)
[2023-07-16 08:19] LABS: Hematocrit (blood only) 23.3 % (42.0-52.0); Hemoglobin 7.2 g/dl (14.0-18.0); Mean Corpuscular Hemoglobin 36.7 pg (25.0-34.0); Mean Corpuscular Hgb Conc 30.9 g/dL (32.0-36.0); Mean Corpuscular Volume 118.9 fL (80.0-100.0); Mean Platelet Volume 9.9 fL (9.4-12.4); Platelet Count 193 K/uL (130-400); RDW Coefficient of Variation 15.8 % (11.5-14.5); RDW Standard Deviation 67.5 fL (36.4-46.3); Red Blood Count 1.96 M/uL (4.70-6.10); White Blood Count 7.96 K/ul (4.8-10.8)
[2023-07-16 08:21] LABS: Basophils # (auto) 0.01 K/uL (0.00-0.20); Basophils % (auto) 0.1 %; Eosinophils # (auto) 0.01 K/uL (0.00-0.50); Eosinophils % (auto) 0.1 %; Immature Granulocytes % (auto) 1.3 %; Lymphocytes # (auto) 0.25 K/uL (1.20-3.40); Lymphocytes % (auto) 3.1 %; Macrocytosis Present; Monocytes # (auto) 0.17 K/uL (0.11-0.59); Monocytes % (auto) 2.1 %; Neutrophils # (auto) 7.42 K/uL (1.40-6.50); Neutrophils % (auto) 93.3 %; Polychromasia 1+; Rouleaux 1+
[2023-07-16] MEDS: predniSONE 20 MG TAB PO SCH (08:41)
[2023-07-16] MEDS: MYCOPHENOLATE MOFETIL 250 MG CAP PO SCH ×2 (08:41→21:24)
[2023-07-16] MEDS: TACROLIMUS 1 MG CAP PO SCH ×2 (08:42→21:24)
[2023-07-16] MEDS: PANTOprazole 40 MG TAB PO SCH (08:42)
[2023-07-16] MEDS: FOLIC ACID 1 MG TAB PO SCH ×2 (08:42→21:24)
[2023-07-16] MEDS: IRON SUCROSE 300 MG in SODIUM CHLORIDE 0.9% 250 ML IV SCH (11:39)
--- NOTE | 2023-07-16 11:40 | Hematology/Oncology Prog Note ---
Date of Service July 16, 2023 Assessment & Plan (1) Symptomatic anemia: Plan: Tawanna test came back positive, both for IgG and weakly positive for C3d. Has been started on Prednisone 60 mg po daily, which will be tapered down once his hemoglobin stabilizes. He has been transfused 2 units of PRBCs and has responded well to the transfusion. He is getting parenteral iron replacement as his iron stores were absent on the outside bone marrow and he does not tolerate oral iron. I reviewed his records for GI evaluation and clarified that with the patient; it seems he hasn't had a screening colonoscopy in the last 13 years. Once disch arged, he will also need a thorough GI evaluation, which will include an upper GI endoscopy and colonoscopy, especially since he had absent iron stores on the marrow. Significant macrocytosis, most likely related to use of anti-rejection medications (2) Abnormal findings on diagnostic imaging of other abdominal regions, including retroperitoneum: Plan: Biopsy planned by our colleagues from [facility] medicine. Plan Eliquis has been held;for the biopsy; agree with our colleagues. Hematology service will continue to follow the patient and make appropriate recommendations. Admission and Anticipated Discharge Date Admission Date: July 14, 2023 Subjective Patient evaluated this am. Feels better after the blood transfusion. Denies any other symptoms including bleeding, bruising, change in appetite. Denies any fever, chills, night sweats. No nausea or vomiting. No other symptoms overnight. Review of Systems Review of Systems: All systems reviewed & are unremarkable except as noted in HPI & below Currently chief issue includes fatigue. Otherwise reports no other symptoms. Constitutional: + fatigue Eyes: as per Subjective / HPI Ear, Nose, Mouth, Throat: as per Subjective / HPI Physical Exam Constitutional: WD/WN, vitals as above Eyes: PERRL, conjunctivae normal, anicteric sclerae ENMT: external ear and nose normal, oropharynx normal Neck: trachea midline, no thyromegaly Respiratory: normal respiratory effort, lungs clear to auscultation Cardiovascular: RRR, no murmur, no edema Gastrointestinal (Abdomen): normal bowel sounds, soft, nontender, no hepatosplenomegaly Musculoskeletal: no cyanosis or clubbing, extremities motor strength 5/5 Results & Data Vital Signs (Past 12 Hours) Vital Signs Temp Pulse Pulse Resp BP BP Pulse Ox 07/16/23 07:00 63 07/16/23 07:58 36.6 C 63 18 129/74 97 07/16/23 04:00 36.5 C 66 18 129/81 98 07/16/23 01:59 60 07/16/23 01:20 07/16/23 01:19 36.6 C 63 18 110/71 98 O2 Del Method 07/16/23 07:00 07/16/23 07:58 Room Air 07/16/23 04:00 Room Air 07/16/23 01:59 07/16/23 01:20 Room Air 07/16/23 01:19
--- NOTE | 2023-07-16 12:47 | Hospitalist Progress Note ---
Date of Service July 16, 2023 Assessment & Plan (1) Symptomatic anemia: Plan: He received transfusion this admission. Hemoglobin today, July 16, is 7.2. No overt GI blood loss. Nevertheless, Eliquis has been discontinued. Hopeful biopsy of retroperitoneal mass tomorrow, July 17, by interventional radiology. Case discussed with oncology. Lymphoproliferative disorder is a concern. Prednisone has been increased to 60 mg daily along with tacrolimus and mycophenolate. (2) KRISSY (acute kidney injury): Plan: Now resolved. Monitor intake and output. Serial labs (3) Hx of kidney transplant: Plan: Continue tacrolimus and mycophenolate. Prednisone dosage has been uptitrated (4) Atrial fibrillation: Plan: No paroxysmal A-fib. He has not followed up with cardiology since admission in January of this year. Currently in sinus rhythm. Eliquis has been discontinued. Continue Toprol-XL. Telemetry (5) Chronic kidney disease, stage 3a: Plan: Monitor intake and output. Serial labs. History of renal transplant. (6) Benign essential hypertension: Plan: Stable. Continue metoprolol Plan Hopeful discharge to home within the next day or 2 Admission and Anticipated Discharge Date Admission Date: July 14, 2023 Subjective Alert and oriented. No distress. Case discussed with oncology. Hopeful biopsy of retroperitoneal mass by interventional radiology tomorrow, July 17. Hemoglobin improved to 7.2. He has received parenteral iron therapy. In my opinion, Eliquis should be discontinued permanently Review of Systems Review of Systems: Constitutional-no fever or chills ENT-no blurred vision, no double vision, no epistaxis, no sore throat Respiratory-no cough, no wheezing. Shortness of breath with exertion Cardiac-no palpitations, no chest pain, no syncope GI-no nausea, vomiting, diarrhea, melena, hematochezia -no urinary retention, no urinary incontinence, no dysuria, no hematuria Musculoskeletal-no joint pain, no muscle tenderness Skin-no bruising, no rashes, no pruritus Neuro-no isolated weakness, no paresthesia. Generalized weakness Psych-no depression, no anxiety Physical Exam Physical Exam: General-alert and oriented x3, no fevers, no chills HEENT-head atraumatic and normocephalic, pupils equal and reactive to light, extraocular muscles intact Neck-no lymphadenopathy or thyromegaly, trachea midline Chest-clear to auscultation percussion. No rales wheezing or rhonchi Cardiac-regular rate and rhythm, normal S1 and S2 Abdomen-normal bowel sounds, nontender, no hepatosplenomegaly Extremities-no cyanosis, clubbing, or edema Skinpallor noted. No ecchymoses. No petechiae Neuro-cranial nerves II through XII intact, motor and sensory function within normal limits, strength symmetrical, no focal deficits Psych-normal affect, normal mood Results & Data Results & Data Vital Signs (Past 12 Hours) Vital Signs Temp Pulse Pulse Resp BP BP Pulse Ox 07/16/23 11:55 36.9 C 74 18 126/85 98 07/16/23 07:00 63 07/16/23 07:58 36.6 C 63 18 129/74 97 07/16/23 04:00 36.5 C 66 18 129/81 98 07/16/23 01:59 60 07/16/23 01:20 07/16/23 01:19 36.6 C 63 18 110/71 98 O2 Del Method 07/16/23 11:55 Room Air 07/16/23 07:00 07/16/23 07:58 Room Air 07/16/23 04:00 Room Air 07/16/23 01:59 07/16/23 01:20 Room Air 07/16/23 01:19 Laboratory Results 07/16/23 07:03 07/16/23 07:03 PG Care Time/CCT Total # of Minutes Spent Total Time Spent with Patient: Total time spent is greater than 50% in coordination of care (as documented) at patient's floor/unit and/or counseling patient: Coding Level of Care Code 47113 SUB INP/OBS CARE 3/50MIN Diagnoses Symptomatic anemia D64.9 KRISSY (acute kidney injury) N17.9 Hx of kidney transplant Z94.0 Atrial fibrillation I48.91 Chronic kidney disease, stage 3a N18.31 Benign essential hypertension I10
[2023-07-16] MEDS ORDERED: ACETAMINOPHEN 325 MG TAB PO STA (20:55)
[2023-07-17] MEDS: LEVOTHYROXINE SODIUM 125 MCG TABLET PO SCH (06:47)
[2023-07-17 07:33] LABS: Albumin Globulin Ratio 1.2 (0.9-2); Albumin Level 3.7 gm/dl (3.4-5.0); BUN Creatinine Ratio 29.5 (10-20); Bilirubin,Total 3.7 mg/dl (0.2-1.0); Calcium 8.8 mg/dl (8.6-10.3); Creatinine Clr Calc Pharmacy 66.3 ml/min; Est GFR (African American) 68.4 ml/min; Globulin 3.1 gm/dl (2.5-4.0); Magnesium 1.8 mg/dl (1.7-2.4); Potassium 4.6 mmol/L (3.5-5.1); Total Protein 6.8 gm/dl (6.0-8.3)
[2023-07-17 07:57] LABS: Hematocrit (blood only) 23.1 % (42.0-52.0); Hemoglobin 7.1 g/dl (14.0-18.0); Mean Corpuscular Hgb Conc 30.7 g/dL (32.0-36.0); Mean Corpuscular Volume 120.3 fL (80.0-100.0); Mean Platelet Volume 10.1 fL (9.4-12.4); Platelet Count 213 K/uL (130-400); RDW Coefficient of Variation 14.6 % (11.5-14.5); Red Blood Count 1.92 M/uL (4.70-6.10); White Blood Count 10.34 K/ul (4.8-10.8)
[2023-07-17 07:59] LABS: Basophils # (auto) 0.02 K/uL (0.00-0.20); Basophils % (auto) 0.2 %; Eosinophils # (auto) 0.03 K/uL (0.00-0.50); Eosinophils % (auto) 0.3 %; Immature Granulocytes # (auto) 0.09 K/uL (0.01-0.20); Immature Granulocytes % (auto) 0.9 %; Lymphocytes # (auto) 0.59 K/uL (1.20-3.40); Lymphocytes % (auto) 5.7 %; Monocytes # (auto) 0.51 K/uL (0.11-0.59); Monocytes % (auto) 4.9 %; Polychromasia 1+
[2023-07-17] MEDS: FOLIC ACID 1 MG TAB PO SCH (08:31)
[2023-07-17] MEDS: TACROLIMUS 1 MG CAP PO SCH (08:31)
[2023-07-17] MEDS: PANTOprazole 40 MG TAB PO SCH (08:31)
[2023-07-17] MEDS: MYCOPHENOLATE MOFETIL 250 MG CAP PO SCH (08:31)
[2023-07-17] MEDS: predniSONE 20 MG TAB PO SCH (08:31)
[2023-07-17] MEDS: IRON SUCROSE 300 MG in SODIUM CHLORIDE 0.9% 250 ML IV SCH (08:32)
--- NOTE | 2023-07-17 10:55 | Discharge Summary ---
Date of Service July 17, 2023 Admission HPI Per Admitting Provider The patient is a 62-year-old male with a past medical history including respiratory failure with hypoxemia, kidney transplant on immunosuppressive medications, megaloblastic anemia, NSTEMI, atrial fibrillation, CKD stage IIIa, AAA, focal segmental glomerulosclerosis, GERD, hypertension and obesity. The patient was admitted to [facility] from 07/05-07/06, for hemoglobin 6.0, received 2 units of PRBCs, with follow-up hemoglobin at 7.9 prior to discharge. Patient is been getting periodic laboratories in the outpatient setting, and today hemoglobin returned at 6.8, and due to symptoms of shortness of breath, was referred to the ED for assessment. Laboratories in the emergency department showed hemoglobin of 6.4 and hematocrit 20.3. The patient was ordered 2 units PRBCs by the ED, and was referred for evaluation for admission. The patient has been seen by oncology/hematology Carlos Sheldon MD at [facility], and underwent a bone marrow aspiration biopsy on 06/01/2023 which showed no chromosom al abnormalities, no evidence of somatic mutations, hypercellular marrow, stainable iron being absent. Principal Diagnosis Symptomatic anemia, iron deficiency, possible lymphoproliferative disorder, retroperitoneal mass Discharge Exam General-alert and oriented x3, no fevers, no chills HEENT-head atraumatic and normocephalic, pupils equal and reactive to light, extraocular muscles intact Neck-no lymphadenopathy or thyromegaly, trachea midline Chest-clear to auscultation percussion. No rales wheezing or rhonchi Cardiac-regular rate and rhythm, normal S1 and S2 Abdomen-normal bowel sounds, nontender, no hepatosplenomegaly Extremities-no cyanosis, clubbing, or edema Skinpallor noted. No ecchymoses. No petechiae Neuro-cranial nerves II through XII intact, motor and sensory function within normal limits, strength symmetrical, no focal deficits Psych-normal affect, normal mood Discharge Data Allergies Allergy/AdvReac Type Severity Reaction Status Date / Time clopidogrel [From Plavix] Allergy Unknown Unknown Verified 07/14/23 07:27 Hihsxzr-GHU-HyP Reductase AdvReac Intermediate myalgias Verified 07/14/23 07:27 Inhibitor [Ijsptpt-Xqv-Xgi Reductase Inhibitor] Consultations 07/14/23 21:59 ED Decision to Admit Stat 07/15/23 10:44 Consult Hematology Routine Hospital Course (1) Symptomatic anemia: He received transfusion this admission. Hemoglobin today, July 17, is stable at 7.1. No overt GI blood loss. Nevertheless, Eliquis has been discontinued. He needs a biopsy of the retroperitoneal mass but interventional radiology is not available this week. This will need to be done as an outpatient. Case discussed with oncology. Lymphoproliferative disorder is a concern. Prednisone has been increased to 60 mg daily along with tacrolimus and mycophenolate. (2) KRISSY (acute kidney injury): Now resolved. Monitor intake and output. Serial labs (3) Hx of kidney transplant: Continue tacrolimus and mycophenolate. Prednisone dosage has been uptitrated (4) Atrial fibrillation: No paroxysmal A-fib. He has not followed up with cardiology since admission in January of this year. Currently in sinus rhythm. Eliquis has been discontinued. Continue Toprol-XL. Telemetry (5) Chronic kidney disease, stage 3a: Monitor intake and output. Serial labs. History of renal transplant. (6) Benign essential hypertension: Stable. Continue metoprolol Plan Home today, July 17. He will remain on prednisone 60 mg daily for the time being. PCP will arrange outpatient retroperitoneal mass biopsy per interventional radiology Total Time Total Time Spent Total Time Spent (In Minutes): 45-minute Discharge Plan Discharge Items Patient Disposition: Home - Self-Care Reason For Visit: SYMPTOMATIC ANEMIA Discharge Diagnosis: Symptomatic anemia, iron deficiency, retroperitoneal mass, possible lymphoproliferative disorder Condition on Discharge: Good Activity: Resume your previous activity Non-emergency contact: Primary Care Provider Call non-emergency contact if: you have any medication questions and your sym ptoms worsen Follow-up/Referrals: Santos Rivers MD [Primary Care Provider] - Diet: Regular and Heart Healthy Addtl Attending Provider Instructions: Primary care provider will arrange outpatient biopsy of the retroperitoneal mass. Eliquis has been discontinued. Prednisone has been increased to 60 mg daily. A new prescription has been sent to your pharmacy Pending Studies at Discharge: No Stand-Alone Forms: [facility] Prowl, Smoking Cessation Medications and DC Order Prescriptions: New ferrous sulfate 325 mg (65 mg iron) tablet 325 mg PO BID Qty: 60 0RF prednisone 20 mg tablet See Rx Instructions .ROUTE .COMPLEX Qty: 90 0RF Rx Instructions: Take 3 tablets daily Continued mycophenolate mofetil 250 mg capsule 500 mg PO BID Qty: 360 3RF levothyroxine 125 mcg tablet 125 mcg PO DAILY Qty: 90 3RF Rx Instructions: TAKE 1 TABLET BY MOUTH EVERY DAY magnesium oxide 500 mg tablet 500 mg PO DAILY Qty: 90 3RF folic acid 1 mg tablet 1 mg PO BID Qty: 60 2RF tacrolimus 1 mg capsule 2 mg PO BID lisinopril 10 mg tablet 10 mg PO DAILY Qty: 90 3RF amoxicillin 500 mg capsule 2,000 mg PO DIRECTED PRN (Reason: PRIOR TO DENTAL PROCEDURES) multivitamin Tablet 1 tab PO QAM metoprolol succinate 100 mg tablet extended release 24 hr 100 mg PO HS Rx Instructions: Take at 6pm pantoprazole 40 mg tablet,delayed release (DR/EC) 40 mg PO DAILY Rx Instructions: TAKE 1 TABLET BY MOUTH EVERY DAY calcium 500 mg Tablet 500 mg PO QAM Discontinued prednisone 5 mg tablet 5 mg PO DAILY Qty: 90 3RF Hold Instructions: Resume on 02/17/23. until your are done with prednisone taper Eliquis 5 mg tablet 5 mg PO BID Qty: 60 5RF Discharge Orders: Discharge Order (Routine); Ordered 07/17/23 Ordered By: Choco Wood Admission Data Admit Date/Time: 07/14/23 23:25 Attending Provider: Choco Wood Admit Provider: Gary Motley Primary Care Provider: Santos Rivers Other Providers: Gary Motley ; Ba Gonsalez Coding Level of Care Code 21292 INP/OBS DISCH >30 MIN Diagnoses Symptomatic anemia D64.9 KRISSY (acute kidney injury) N17.9 Hx of kidney transplant Z94.0 Atrial fibrillation I48.91 Chronic kidney disease, stage 3a N18.31 Benign essential hypertension I10
[2023-07-17] MEDS ORDERED: FERROUS GLUCONATE 324 MG TAB PO SCH (17:00)
== END 2023-07-17 12:22 | disposition home or self-care (01) | DRG 812 ==
LOC: ED 19:46 → SUATTDRO 23:25 → EDINP 23:25 → 2W 07-15 02:51

== ENCOUNTER 2024-01-21 12:39 | Inpatient (IN) ==
[2024-01-21 13:37] LABS: INR 1.1 (0.9-1.1); Partial Thromboplastin Ratio 0.7; Partial Thromboplastin Time 20 Seconds (21-31); Prothrombin Time 12.2 Seconds (9.0-12.0)
[2024-01-21 13:49] LABS: Alanine Aminotransferase 13 U/L (7-52); Albumin Level 3.7 gm/dl (3.4-5.0); Alkaline Phosphatase 109 U/L (34-104); Anion Gap 11 (3-11); Aspartate Aminotransferase 33 U/L (13-39); BUN Creatinine Ratio 23.4 (10-20); Bilirubin,Total 2.7 mg/dl (0.2-1.0); Blood Urea Nitrogen 39 mg/dl (6-23); Calcium 9.2 mg/dl (8.6-10.3); Carbon Dioxide 20 mmol/L (21-32); Chloride 101 mmol/L (98-107); Creatinine Clr Calc Pharmacy 50.1 ml/min; Est GFR (African American) 49.7 ml/min; Est GFR (Non-African American) 42.9 ml/min; Glucose 123 mg/dl (70-99(Fasting)); Magnesium 1.4 mg/dl (1.7-2.4); Potassium 4.1 mmol/L (3.5-5.1); Sodium 132 mmol/L (136-145)
[2024-01-21 13:54] LABS: Hemoglobin 8.1 g/dl (14.0-18.0); Mean Corpuscular Hemoglobin 33.5 pg (25.0-34.0); Mean Corpuscular Hgb Conc 31.2 g/dL (32.0-36.0); Mean Corpuscular Volume 107.4 fL (80.0-100.0); Mean Platelet Volume 10.3 fL (9.4-12.4); Platelet Count 279 K/uL (130-400); RDW Coefficient of Variation 12.3 % (11.5-14.5); RDW Standard Deviation 48.5 fL (36.4-46.3); Red Blood Count 2.42 M/uL (4.70-6.10); White Blood Count 17.66 K/ul (4.8-10.8)
[2024-01-21 13:55] LABS: Basophils # (auto) 0.05 K/uL (0.00-0.20); Basophils % (auto) 0.3 %; Eosinophils # (auto) 0.07 K/uL (0.00-0.50); Eosinophils % (auto) 0.4 %; Immature Granulocytes % (auto) 1.1 %; Lymphocytes # (auto) 0.27 K/uL (1.20-3.40); Lymphocytes % (auto) 1.5 %; Macrocytosis Present; Monocytes # (auto) 1.36 K/uL (0.11-0.59); Monocytes % (auto) 7.7 %; Neutrophils # (auto) 15.71 K/uL (1.40-6.50); Ovalocytes 1+; Platelet Estimate Normal (Normal); Troponin I High Sensitivity 44.3 pg/ml (0-20)
--- NOTE | 2024-01-21 13:56 | XRay Report ---
XR chest 1V portable HISTORY: Sepsis COMPARISON: Chest 07/06/2023. Chest CT 01/19/2024. FINDINGS: No pneumothorax. No pleural effusions. The heart remains enlarged. There is a small hiatus hernia, unchanged. No new focal lung consolidations to suggest a pneumonia. No evidence for pulmonary edema. No acute fractures identified. IMPRESSION: No significant change compared to the prior study. No acute process. ACT 112: Negative or not required by law. Electronically signed by: Baldomero Wisdom M.D. 01/21/2024 1:55 PM
[2024-01-21 14:47] LABS: Adenovirus PCR Not Detected (NotDetected); Bordetella parapertussis PCR Not Detected (NotDetected); Bordetella pertussis PCR Not Detected (NotDetected); Chlamydia pneumoniae PCR Not Detected (NotDetected); Coronavirus 229E PCR Not Detected (NotDetected); Coronavirus CoV-2 (COVID19)PCR Not Detected (NotDetected); Coronavirus HKU1 PCR Not Detected (NotDetected); Coronavirus NL63 PCR Not Detected (NotDetected); Coronavirus OC43PCR Not Detected (NotDetected); Human Metapneumovirus PCR Not Detected (NotDetected); Influenza A PCR Not Detected (NotDetected); Influenza B PCR Not Detected (NotDetected); Mycoplasma pneumoniae PCR Not Detected (NotDetected); Parainfluenza Virus 1 PCR Not Detected (NotDetected); Parainfluenza Virus 2 PCR Not Detected (NotDetected); Parainfluenza Virus 3 PCR Not Detected (NotDetected); Parainfluenza Virus 4 PCR Not Detected (NotDetected); Respiratory Syncytial VirusPCR Not Detected (NotDetected); Rhinovirus/Enterovirus PCR Not Detected (NotDetected)
[2024-01-21 14:57] LABS: Base Excess VBG -3.9 mEq/L; HCO3 VBG 21 mmol/L; Oxygen Saturation VBG < 60.0 %; PCO2 VBG 36 mmHg (38-50); PO2 VBG 20 mmHg; pH VBG 7.37 (7.36-7.41)
[2024-01-21 15:17] LABS: Appearance Urine Clear (Clear); Bacteria Urine Automated None Seen (None Seen); Bilirubin Urine 1+ (Negative); Blood Urine Negative (Negative); Color Urine Dark Yellow; Epithelial Cell Urine Auto 0-2 /hpf (0-2); Glucose Urine UA Negative (Negative); Ketones Urine Negative (Negative); Leukocyte Esterase Urine Trace (Negative); Nitrite Urine Positive (Negative); Protein Urine Trace (Negative); RBC Urine Automated 0-2 /hpf (0-2); Specific Gravity Urine 1.021 (1.000-1.030); Urobilinogen Urine Negative (Negative); WBC Urine Automated 0-5 /hpf (0-5)
[2024-01-21] MEDS: cefTRIAXone SODIUM 2,000 MG/50 ML BAG IV STA (15:17)
[2024-01-21 15:26] LABS: Troponin I High Sensitivity 40.7 pg/ml (0-20)
[2024-01-21] MEDS ORDERED: VANCOMYCIN CONSULT ACTIVE PRN (15:34)
--- NOTE | 2024-01-21 15:35 | History & Physical Report ---
Date of Service January 21, 2024 Assessment & Plan (1) Leukocytosis: Plan: -Admit to med/tele -Currently stable and non-toxic appearing -Presented to the ED today with approximately 3-4 days of progressive malaise, body aches, and poor oral intake -Noted to have a leukocytosis of 17 with neutrophil predominance of 15 and procal of 1.44 -At this time the most likely source could be a UTI with UA being nitrite positive with trace leukocyte esterase and the patient's recent hx of increased urinary frequency this past week -No other infectious signs/symptoms on exam -CXR negative for acute findings -Denies respiratory, GI, skin, neurologic symptoms -Blood cultures were obtained in the ED >Will order urine culture now as UA did not initially reflex -S/P one dose of Ceftriaxone in the ED -Will continue with Empiric Cefepime and Vancomycin for 48 hours at this time, if source if identified then abx will need to be continued -Will give 1L NSS bolus now with his Dehydration and KRISSY, but patient currently does not require sepsis bolus as his lactate is WNL he has been hemodynamically stable, and we currently do not have an identified infectious source -Will speak with Heme/Onc to see if patient was recently given Epoetin or Neupogen which may explain his leukocytosis -Will continue light maintenance fluids overnight if patient continues to have poor PO intake -BL SCD's for DVT PPX -HH diet -AM CBC, CMP, mag, PT/INR (2) KRISSY (acute kidney injury): Plan: -Cr today is 1.67, baseline is 1.1 -This meets criteria for KRISSY with 1.5 x his baseline Cr -Patient reports poor PO intake over the past week, is not on diuretics, could be pre-renal in nature but will obtain renal transplant US w/Doppler for further evaluation -Will continue IV hydration for now -Nephrology consult placed, they will follow (3) Status post kidney transplant: Plan: -S/P renal transplant in 2009 -Is on Tacrolimus, Cellcept, and Prednisone daily -Spoke with Nephrology, appreciate their assistance, since patient is stable and non-toxic we will continue immunosuppressants at this time -Will order am Tacrolimus level for tomorrow -Nephrology consult placed (4) Warm autoimmune hemolytic anemia: Plan: -[facility] for Warm Autoimmune Hemolytic anemia -Has previously required admission and blood transfusions for low Hgb -Hgb is currently 8.1 (down from 9 as of 01/10/24) -Total bili of 2.7 today with direct bili of 1.0 -Patient is without scleral icterus or jaundice, has been stable -Heme/onc consult placed, spoke with hospice consultant provider briefly at the time of admission, appreciate their assistance >Since patient is stable and non-toxic no need for further workup of hemolytic anemia flare at this time >They do believe that the patient was recently treated with Nupogen for his neutropenia but will need to confirm when he has access to [employer] in the near future -Type and screen ordered in the ED -Will obtain blood consent in case patient requires blood transfusion -Will monitor repeat CBC later this evening -Follow heme/onc consult (5) Hypomagnesemia: Plan: -Noted to be 1.4 today -Likely due to recent poor PO intake -K+ is stable -Has had 1 of 2 bags 1gm IV mag-sulfate ordered in the ED -Will order an additional 2 bags on admission -Monitor am electrolytes (6) Atrial fibrillation: Plan: -Hx of paroxysmal afib -Currently in sinus rthythm -Has been off anticoagulation since his admission for anemia in 2022 -Continue metoprolol (7) Benign essential hypertension: Plan: -Stable -Holding lisinopril due to KRISSY Plan The patient was discussed with Dr. Reed at the time of the admission History of Present Illness Chief Complaint: Malaise Primary Care Provider: Santos Rivers MD Gumaro Mandel is a 63-year-old male with a past medical history including kidney transplant on chronic Cellcept, Tacrolimus, and prednisone, Warm Autoimmune Hemolytic anemia, megaloblastic anemia, NSTEMI, atrial fibrillation, CKD stage IIIa, AAA, focal segmental glomerulosclerosis, GERD, hypertension and obesity who presented to the [facility] ED on 01/21/24 with complaints of generalized pain, dehydration, and malaise. He was noted to be tachycardic at 91 BPM on arrival but otherwise stable and afebrile. Labs were significant for a leukocytosis of 17 with neutrophile predominance of 15, cr of 1.67 (baseline is near 1.1), BUN of 39, sodium of 132, mag of 1.4, total bili of 2.7 with direct bili of 1.0, initial high sen trop of 44 --> 40 on 2 hour repeat, procal of 1.44, full respiratory biofire negative, and UA with trace protein, nitrite positive, 1+ bili, trace leukocyte esterase, and 6-10 hyaline casts. Chest xray was read as negative for acute finding. Prior to admission the patient was given a dose of ceftriaxone and 1gm IV mag sulfate. At the time of the exam the patient was sitting in bed in no acute distress. He states that he started to develop malaise, decreased appetite, and body aches approximately 3-4 days ago. Has had chills but denies fevers. When asked, denies chest pain, cough, SOB, abd pain, nausea, vomiting, diarrhea, dysuria, hematuria, melena, and recent trauma. He does note increased urinary frequency over this time. Denies photophobia, neck pain/stiffness, new back pain, rashes, or wounds/sores. Has been taking all medications as prescribed including immunosuppressants. Has been having ongoing chronic right hip pain. He was supposed to have the right hip replaced in May of last year, unfortunately he has been having ongoing issues with low Hgb and has not been stable for surgery. He has been following with hematology for his chronic anemia. He is a full code and his is his POA. Of note, review of the patient's recent medications shows he was prescribed a 7 day course of Levaquin by heme/onc as prophylaxis when he was noted to be Neutropenic on 01/12/24. Please refer to Dr. Reed's attestation for any changes to the treatment plan Allergies Allergy/AdvReac Type Severity Reaction Status Date / Time clopidogrel [From Plavix] Allergy Unknown Unknown Verified 01/21/24 16:09 Ttzgmyc-MJB-CtV Reductase AdvReac Intermediate myalgias Verified 01/21/24 16:09 Inhibitor [Fvtskcu-Nrb-Vup Reductase Inhibitor] Home Medications Medication Instructions Recorded Confirmed Type mycophenolate mofetil 250 mg 500 mg (2 x 250 mg) PO BID #360 05/29/20 01/21/24 Rx capsule caps amoxicillin 500 mg capsule 2,000 mg PO DIRECTED PRN PRIOR 07/29/20 01/21/24 History TO DENTAL PROCEDURES multivitamin 1 tab PO QAM 08/02/21 01/21/24 History tacrolimus 1 mg capsule, 2 mg PO Q12 07/08/22 01/21/24 History immediate-release ferrous sulfate 325 mg (65 mg 325 mg PO BID #60 tabs 07/17/23 01/21/24 Rx iron) tablet levothyroxine 125 mcg tablet 125 mcg PO QAM 09/04/23 01/21/24 History lisinopril 10 mg tablet 10 mg PO QAM 09/04/23 01/21/24 History magnesium oxide 500 mg PO HS 09/04/23 01/21/24 History folic acid 1 mg tablet 1 mg PO BID #180 tabs 09/20/23 01/21/24 Rx metoprolol succinate 100 mg 100 mg PO HS #90 tabs 10/27/23 01/21/24 Rx tablet,extended release 24 hr pantoprazole 40 mg tablet,delayed 40 mg PO BID #180 tabs 12/06/23 01/21/24 Rx release calcium carbonate 500 mg PO QAM 01/21/24 01/21/24 History levofloxacin 500 mg tablet 500 mg PO HS 01/21/24 01/21/24 History olanzapine 2.5 mg tablet See Rx Instructions .Route .COMPLEX 01/21/24 01/21/24 History prednisone 5 mg tablet 5 mg PO QDB 01/21/24 01/21/24 History prochlorperazine maleate 10 mg 10 mg PO Q6 PRN Nausea And Vomiting 01/21/24 01/21/24 History tablet Past Med/Surg History Medical History (Updated 01/21/24 @ 16:51 by Colin Higuera PA-C) Benign essential hypertension On prednisone therapy Ground glass opacity present on imaging of lung Sleep apnea no device Thoracic ascending aortic aneurysm 4.9 cm on chest CTA 01/31/23 Hypertension controlled, stable per pt Limb alert care status left arm restriction History of blood transfusion 07/2023 Hx of herpetic maria Atrial fibrillation controlled w/ metoprolol Eliquis recently DC'ed during Nov hospital visit due to anemia issues, no pacer History of COVID-19 07/2020- covid pneumonia, hospitalized; resolved History of renal dialysis prior to kidney transplant; has dialysis fistula left arm History of CVA (cerebrovascular accident) 2008, mild memory changes Adrenal nodule OR PCP considering adrenal protocol CT or MRI for characterization Symptomatic anemia Retroperitoneal mass lesion biopsy negative for malignancy 05/2022 per transplant record 03/17/23 Chronic kidney disease, stage 3a Anemia hospitalized at [facility] 07/2023, received blood transfusion 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 History of esophageal reflux controlled, stable per pt Hyperlipidemia Hypothyroidism Obesity Osteoporosis Surgical History History of esophagogastroduodenoscopy (EGD) Hx of cholecystectomy Hx of exploratory laparotomy Hx of kidney transplant 02/2010- [place] History of colonoscopy Family History Grandmother (Maternal) Alzheimer disease Mother Depression Denies family history of Ovarian cancer Prostate cancer Diabetes Heart disease Myocardial infarction Breast cancer Lung cancer COPD (chronic obstructive pulmonary disease) Colorectal cancer Hypertension Stroke Social History Smoking Status: Never smoker Second Hand Exposure: No; Do You Dip or Chew Tobacco: No; Hx Alcohol Use: No Hx Substance Use: No 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: Martiniquais Communication Ability: Effective Visual Impairment: No Limitations Hearing Ability: Normal Mechanical Designer Required: No Beliefs That Will Affect Care: None marital status: Current Living Situation: Family current occupational status: employed current occupation: [employer] How many Children do You have: 1 Feels Safe at Home: Yes Childhood Exposure to Second-Hand Smoke: No Dental Care, Regularly: Yes Seatbelt Use: sometimes Sunscreen Use: No Assistive Devices: Cane and Glasses Physical Exam Physical Exam: Physical Exam: General: In no acute distress, stated age, chronically ill appearing but non- toxic HEENT: Normocephalic, atraumatic, no scleral icterus, pupils around round, symmetrical, and reactive to light, moist mucus membranes, trachea midline, no thyromegaly Chest/Pulm: No respiratory distress, symmetrical chest expansion, clear breath sounds throughout Cardiac: RRR, no murmurs noted Abdomen: Negative for ascites and bruising, normoactive bowel sounds, soft, non-tender to palpation throughout Musculoskeletal: Symmetrical and without signs of acute trauma, RLE with decreased flexion of the right hip compared to left due to chronic OA Extremities: Patient with previous left forearm AV fistula, distal pulses are symmetrical and intact, no significant LE edema Skin: Warm, dry, no rashes , lesions, or scars noted Neuro: Alert and oriented to person, place, month, year, and president, no focal defects, no tremors noted Psych: No acute distress, calm and cooperative during the exam Results & Data Results & Data Vital Signs (Past 12 Hours) Vital Signs Temp Pulse Resp BP Pulse Ox O2 Del Method 01/21/24 13:57 84 01/21/24 12:42 37.0 C 91 H 20 116/59 L 100 Room Air Laboratory Results Abnormal lab results 01/21/24 01/21/24 01/21/24 Range/Units 13:00 14:30 14:43 WBC 17.66 H (4.8-10.8) K/ul RBC 2.42 L (4.70-6.10) M/uL Hgb 8.1 L (14.0-18.0) g/dl Hct 26.0 L (42.0-52.0) % MCV 107.4 H (80.0-100.0) fL MCHC 31.2 L (32.0-36.0) g/dL RDW Std Deviation 48.5 H (36.4-46.3) fL Neut # (Auto) 15.71 H (1.40-6.50) K/uL Lymph # (Auto) 0.27 L (1.20-3.40) K/uL [place] # (Auto) 1.36 H (0.11-0.59) K/uL PT 12.2 H (9.0-12.0) Seconds APTT 20 L (21-31) Seconds VBG pCO2 36 L (38-50) mmHg Sodium 132 L (136-145) mmol/L Carbon Dioxide 20 L (21-32) mmol/L BUN 39 H (6-23) mg/dl Creatinine 1.67 H (0.6-1.4) mg/dl BUN/Creatinine Ratio 23.4 H (10-20) Glucose 123 H (70-99(Fasting)) mg/dl Magnesium 1.4 L (1.7-2.4) mg/dl Total Bilirubin 2.7 H (0.2-1.0) mg/dl Direct Bilirubin 1.0 H (0-0.2) mg/dl Alkaline Phosphatase 109 H (34-104) U/L Troponin I High Sens 44.3 H 40.7 H (0-20) pg/ml Procalcitonin 1.44 H (0-0.5) ng/ml Urine Protein Trace H (Negative) Urine Nitrite Positive A (Negative) Urine Bilirubin 1+ H (Negative) Ur Leukocyte Esterase Trace H (Negative) U Hyaline Cast (Auto) 6-10 H (0-2) /lpf Diagnostic Findings Chest X-Ray 01/21/24 13:06 XR chest 1V portable HISTORY: Sepsis COMPARISON: Chest 07/06/2023. Chest CT 01/19/2024. FINDINGS: No pneumothorax. No pleural effusions. The heart remains enlarged. There is a small hiatus hernia, unchanged. No new focal lung consolidations to suggest a pneumonia. No evidence for pulmonary edema. No acute fractures identified. IMPRESSION: No significant change compared to the prior study. No acute process. ACT 112: Negative or not required by law. Electronically signed by: Baldomero Wisdom M.D. 01/21/2024 1:55 PM ECG Additional Comments: Sinus rhythm with Premature atrial complexes Left axis deviation Right bundle branch block Minimal voltage criteria for LVH, may be normal variant ( R in aVL ) Abnormal ECG When compared with ECG of 04-JUL-2023 20:48, [place] interval has increased Code Status & VTE Plan Code Status Full code VTE Prophylaxis Plan VTE Prophylaxis will be ordered: Yes Supervising Physician Co-Signing Physician Notes I personally saw and examined the patient. I verified all swanson points and agree with Colin Higuera PA-C with the following exceptions and/or additions: 63 year old PG Care Time/CCT Total # of Minutes Spent Total Time Spent with Patient: Total time spent is greater than 50% in coordination of care (as documented) at patient's floor/unit and/or counseling patient: C[place] [address] INT INP/OBS CARE 3/75MIN Patient Type Established Medical Decision Making High Complexity Diagnoses Leukocytosis D72.829 KRISSY (acute kidney injury) N17.9 Status post kidney transplant Z94.0 Warm autoimmune hemolytic anemia D59.11 Hypomagnesemia E83.42 Atrial fibrillation I48.91 Benign essential hypertension I10
[2024-01-21] MEDS ORDERED: VANCOMYCIN HCL 2,250 MG in SODIUM CHLORIDE 0.9% 500 ML IV ONE (15:45)
--- NOTE | 2024-01-21 16:10 | Pharmacy Report ---
Pharmacy PK ABX Note - Date of Service January 21, 2024 - Assessment and Plan Laboratory Tests 01/21/24 13:00 WBC 17.66 H Neut # (Auto) 15.71 H Creatinine 1.67 H Est Cr Clr Drug Dosing 50.1 Assessment 63 year old M receiving EMPIRIC VANC-IV. Also received ceftriaxone 2g and cefepime 2g IV x 1. Day # 1 of antimicrobial therapy. Pt is a kidney transplant. Baseline Scr ~1.1 (1.1-1.8). Plan Vancomycin * Loading dose: 2250mg (22.5mg/kg) IV x 1 * Regimen is predicted to achieve target AUC/LAKIA of 400-600 mg/L.hr * [Random] level ordered for: 5/6 AM labs to guide further dosing. Pharmacy will continue to follow and will adjust dose/frequency as necessary. Thank you. Pharmacy has transitioned to AUC monitoring for vancomycin. AUC/LAKIA is the preferred PK/PD target and is associated with decreased risk of nephrotoxicity compared to traditional trough targets.
[2024-01-21] MEDS: CEFEPIME 2,000 MG in SYRINGE 0 ML IV STA (16:16)
[2024-01-21] MEDS: MAGNESIUM SULFATE / D5W 1 GM/100 ML BAG IV SCH ×2 (16:21→19:27)
[2024-01-21] MEDS: LACTATED RINGER'S 1,000 ML IV ONE (16:24)
[2024-01-21] MEDS: VANCOMYCIN HCL 2,000 MG in SODIUM CHLORIDE 0.9% 500 ML IV ONE (16:29)
--- NOTE | 2024-01-21 16:37 | Emergency Department Note ---
History of Present Illness General Chief complaint: Illness Stated complaint: SOB/NO APPETITE/CHILLS Time Seen by Provider: 01/21/24 12:51 History of Present Illness Provider complaint: Shortness of breath weakness Onset (ago): day(s) 2 Maximum Pain Intensity: 9 63-year-old male presents emergency department for shortness of breath and weakness. Patient reports that over the last 2 days he has been feeling increasingly weak. He reports malaise nausea and no appetite. Reports increasing difficulty breathing. He denies any fevers. Denies any melena or hematochezia. No hematuria or dysuria. No abdominal pain. No chest pain. No cough. No fever. Home Medications Medication Instructions Recorded Confirmed Type mycophenolate mofetil 250 mg 500 mg (2 x 250 mg) PO BID #360 05/29/20 01/21/24 Rx capsule caps amoxicillin 500 mg capsule 2,000 mg PO DIRECTED PRN PRIOR 07/29/20 01/21/24 History TO DENTAL PROCEDURES multivitamin 1 tab PO QAM 08/02/21 01/21/24 History tacrolimus 1 mg capsule, 2 mg PO Q12 07/08/22 01/21/24 History immediate-release ferrous sulfate 325 mg (65 mg 325 mg PO BID #60 tabs 07/17/23 01/21/24 Rx iron) tablet levothyroxine 125 mcg tablet 125 mcg PO QAM 09/04/23 01/21/24 History lisinopril 10 mg tablet 10 mg PO QAM 09/04/23 01/21/24 History magnesium oxide 500 mg PO HS 09/04/23 01/21/24 History folic acid 1 mg tablet 1 mg PO BID #180 tabs 09/20/23 01/21/24 Rx metoprolol succinate 100 mg 100 mg PO HS #90 tabs 10/27/23 01/21/24 Rx tablet,extended release 24 hr pantoprazole 40 mg tablet,delayed 40 mg PO BID #180 tabs 12/06/23 01/21/24 Rx release calcium carbonate 500 mg PO QAM 01/21/24 01/21/24 History levofloxacin 500 mg tablet 500 mg PO HS 01/21/24 01/21/24 History olanzapine 2.5 mg tablet See Rx Instructions .Route .COMPLEX 01/21/24 01/21/24 History prednisone 5 mg tablet 5 mg PO QDB 01/21/24 01/21/24 History prochlorperazine maleate 10 mg 10 mg PO Q6 PRN Nausea And Vomiting 01/21/24 01/21/24 History tablet Allergies Allergy/AdvReac Type Severity Reaction Status Date / Time clopidogrel [From Plavix] Allergy Unknown Unknown Verified 01/21/24 16:09 [id number] Reductase AdvReac Intermediate myalgias Verified 01/21/24 16:09 Inhibitor [Rynhnkd-Fsg-Mvi Reductase Inhibitor] Past Med/Surg History Medical History On prednisone therapy Ground glass opacity present on imaging of lung Sleep apnea no device Thoracic ascending aortic aneurysm 4.9 cm on chest CTA 01/31/23 Hypertension controlled, stable per pt Limb alert care status left arm restriction History of blood transfusion 07/2023 Hx of herpetic maria Atrial fibrillation controlled w/ metoprolol Eliquis recently DC'ed during Jul hospital visit due to anemia issues, no pacer History of COVID-19 07/2020- covid pneumonia, hospitalized; resolved History of renal dialysis prior to kidney transplant; has dialysis fistula left arm History of CVA (cerebrovascular accident) 2008, mild memory changes Adrenal nodule CA PCP considering adrenal protocol CT or MRI for characterization Symptomatic anemia Retroperitoneal mass lesion biopsy negative for malignancy 05/2022 per transplant record 03/17/23 Chronic kidney disease, stage 3a Anemia hospitalized at [facility] 07/2023, received blood transfusion 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 History of esophageal reflux controlled, stable per pt Hyperlipidemia Benign essential hypertension Hypothyroidism Obesity Osteoporosis Surgical History History of esophagogastroduodenoscopy (EGD) Hx of cholecystectomy Hx of exploratory laparotomy Hx of kidney transplant 02/2010- [facility], [place], [place] History of colonoscopy Family History Grandmother (Maternal) Alzheimer disease Mother Depression Denies family history of Ovarian cancer Prostate cancer Diabetes Heart disease Myocardial infarction Breast cancer Lung cancer COPD (chronic obstructive pulmonary disease) Colorectal cancer Hypertension Stroke Social History Smoking Status: Never smoker Second Hand Exposure: No; Do You Dip or Chew Tobacco: No; Hx Alcohol Use: No Hx Substance Use: No 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: [place] Communication Ability: Effective Visual Impairment: No Limitations Hearing Ability: Normal Inspector And Hand Packager Required: No Beliefs That Will Affect Care: None marital status: Current Living Situation: Family current occupational status: employed current occupation: [employer] How many Children do You have: 1 Feels Safe at Home: Yes Childhood Exposure to Second-Hand Smoke: No Dental Care, Regularly: Yes Seatbelt Use: sometimes Sunscreen Use: No Assistive Devices: Cane and Glasses Physical Exam Vital Signs Vital Signs - 24 hr 01/21/24 12:42 01/21/24 13:57 Temperature 37.0 C Temperature Source Oral Pulse Rate 91 H 84 Respiratory Rate 20 Respiratory Effort / Characteristics Non-Labored Spontaneous Respiratory Depth Normal Respiratory Pattern Regular Blood Pressure 116/59 L Blood Pressure Mean 78 Pulse Oximetry 100 Oxygen Delivery Method Room Air Sepsis Recent Fever Within 48 Hours No Sepsis New/Unexplained Change in Mental Status N/A Sepsis Action Taken by Nursing No Action Required Physical Exam GENERAL: He is oriented to person, place, and time. He appears well-developed and well-nourished. He does not appear distressed. HENT: Exam performed. - Head: Normocephalic and atraumatic. - Right Ear: External ear normal. No mastoid erythema - Left Ear: External ear normal. No mastoid erythema - Mouth/Throat: The oropharynx is clear and moist. No trismus in the jaw. No dental abscesses or uvula swelling. No oropharyngeal exudate or tonsillar abscesses. EYES: Conjunctivae and EOM are normal. Pupils are equal, round, and reactive to light. Right eye exhibits no discharge. Left eye exhibits no discharge. No scleral icterus. NECK: Normal range of motion. Neck supple. No JVD present. No rigidity. No tracheal deviation and normal range of motion present. CV: Normal rate, regular rhythm, normal heart sounds and intact distal pulses. There is no peripheral edema. Palpable radial pulses bue. PULM/CHEST: Effort normal and breath sounds normal. No respiratory distress. No stridor. He has no wheezes. He has no rales. - Chest Wall: He exhibits no tenderness. ABD: The abdomen is soft. He has no distension. No mass is present. There is no tenderness. There is no rebound, no guarding, no Cohn's sign and no tenderness at McBurney's point. Rovsig negative. MUSC/SKEL: Normal range of motion. There is no peripheral edema, tenderness or deformity. LYMPH: No cervical adenopathy. NEURO: He is alert and oriented to person, place, and time. He has normal strength. No cranial nerve deficit or sensory deficit. Coordination and gait normal. GCS eye subscore is 4. GCS verbal subscore is 5. GCS motor subscore is 6. Cerebellar tests wnl. SKIN: Skin is warm and dry. He is not diaphoretic. PSYCH: He has a normal mood and affect. Behavior is normal. Judgment and thought content normal. Course Course 1251: The patient was evaluated in room B11A. A complete history and physical exam was performed Cardiac monitoring: An order was placed for continuous cardiac monitoring. The monitor shows a rate of 90 with sinus rhythm interpreted by wv 1525: Vital signs stable. Labs show white blood cell count of 17.66. Hemoglobin 8.1. Coagulation studies within normal limits. Venous pH 7.37 venous pCO2 36. Electrolytes show creatinine of 1.67, 2 weeks ago and January 01, 2024 patient's creatinine is 1.17. Patient's magnesium is 1.4. Magnesium repletion started the emergency department. Total bilirubin elevated 2.7 but this is chronically elevated. Direct bilirubin of 1. High-sensitivity troponin 44.3. Procalcitonin 1.44. Urinalysis and BioFire respiratory negative. Patient be treated with Rocephin given his high procalcitonin on leukocytosis empirically. Cultures are pending. [facility] Reed who accepts the patient. Administered Medications Magnesium Sulfate/Dextrose (Magnesium Sulfate / D5w) 1 gm in 100 mls @ 100 mls/hr IV Q1H ESTEFANI Stop: 01/21/24 16:53 Last Admin: 01/21/24 16:21 Dose: 100 mls/hr Documented By: NIKOLAY Lactated Ringer's (Lr) 1,000 mls @ 999 mls/hr IV .Q1H1M ONE Stop: 01/21/24 16:38 Last Admin: 01/21/24 16:24 Dose: 999 mls/hr Documented By: NIKOLAY Discontinued Medications Ceftriaxone Sodium (Rocephin) 2,000 mg in 50 mls @ 100 mls/hr IV NOW STA Stop: 01/21/24 15:22 Last Admin: 01/21/24 15:17 Dose: 100 mls/hr Documented By: YAMILE Cefepime HCl 2,000 mg/ Syringe 20 mls @ 5 mls/min IV NOW STA; Protocol Stop: 01/21/24 15:46 Last Admin: 01/21/24 16:16 Dose: 5 mls/min Documented By: NIKOLAY Medical Decision Making Medical Records Attestation: I reviewed the patient's medical records. External medical records reviewed. Patient had a bone marrow bone marrow biopsy done on January 11 of the results not back. There are results from the biopsy done on September 13, 2023 which are from an endoscopy performed by Dr. Ignacio which showed a Rosales's esophagus. Negative for dysplasia and malignancy. Patient has a history of kidney failure and transplant secondary to focal segmental glomerulosclerosis. Laboratory Data Attestation: I reviewed the patient's lab results. 01/21/24 13:00 01/21/24 13:00 Lab Results 01/21/24 01/21/24 01/21/24 Range/Units 13:00 13:34 14:30 WBC 17.66 H (4.8-10.8) K/ul RBC 2.42 L (4.70-6.10) M/uL Hgb 8.1 L (14.0-18.0) g/dl Hct 26.0 L (42.0-52.0) % MCV 107.4 H (80.0-100.0) fL MCH 33.5 (25.0-34.0) pg MCHC 31.2 L (32.0-36.0) g/dL RDW Std Deviation 48.5 H (36.4-46.3) fL RDW Coeff of Jaye 12.3 (11.5-14.5) % Plt Count 279 (130-400) K/uL MPV 10.3 (9.4-12.4) fL Immature Gran % (Auto) 1.1 % Neut % (Auto) 89.0 % Lymph % (Auto) 1.5 % Dade % (Auto) 7.7 % Eos % (Auto) 0.4 % Baso % (Auto) 0.3 % Neut # (Auto) 15.71 H (1.40-6.50) K/uL Lymph # (Auto) 0.27 L (1.20-3.40) K/uL Dade # (Auto) 1.36 H (0.11-0.59) K/uL Eos # (Auto) 0.07 (0.00-0.50) K/uL Baso # (Auto) 0.05 (0.00-0.20) K/uL Immature Gran # (Auto) 0.20 (0.01-0.20) K/uL Platelet Estimate Normal (Normal) Macrocytosis Present Ovalocytes 1+ PT 12.2 H (9.0-12.0) Seconds INR 1.1 (0.9-1.1) APTT 20 L (21-31) Seconds PTT Ratio 0.7 VBG pH 7.37 (7.36-7.41) VBG pCO2 36 L (38-50) mmHg VBG pO2 20 mmHg VBG HCO3 21 mmol/L VBG O2 Saturation < 60.0 % VBG Base Excess -3.9 mEq/L Sodium 132 L (136-145) mmol/L Potassium 4.1 (3.5-5.1) mmol/L Chloride 101 (98-107) mmol/L Carbon Dioxide 20 L (21-32) mmol/L Anion Gap 11 (3-11) BUN 39 H (6-23) mg/dl Creatinine 1.67 H (0.6-1.4) mg/dl Est Cr Clr Drug Dosing 50.1 ml/min Est GFR ( Amer) 49.7 ml/min Est GFR (Non-Af Amer) 42.9 ml/min BUN/Creatinine Ratio 23.4 H (10-20) Glucose 123 H (70-99(Fasting)) mg/dl Lactate 1.0 (0.4-2.0) mmol/L Calcium 9.2 (8.6-10.3) mg/dl Magnesium 1.4 L (1.7-2.4) mg/dl Total Bilirubin 2.7 H (0.2-1.0) mg/dl Direct Bilirubin TNP 1.0 H AST 33 (13-39) U/L ALT 13 (7-52) U/L Alkaline Phosphatase 109 H (34-104) U/L Troponin I High Sens 44.3 H 40.7 H (0-20) pg/ml Total Protein 7.0 (6.0-8.3) gm/dl Albumin 3.7 (3.4-5.0) gm/dl Procalcitonin 1.44 H (0-0.5) ng/ml Urine Color Urine Appearance (Clear) Urine pH (4.5-7.5) Ur Specific [place] (1.000-1.030) Urine Protein (Negative) Urine Glucose (UA) (Negative) Urine Ketones (Negative) Urine Blood (Negative) Urine Nitrite (Negative) Urine Bilirubin (Negative) Urine Urobilinogen (Negative) Ur Leukocyte Esterase (Negative) Urine WBC (Auto) (0-5) /hpf Urine RBC (Auto) (0-2) /hpf U Hyaline Cast (Auto) (0-2) /lpf U Epithel Cells (Auto) (0-2) /hpf Urine Bacteria (Auto) (None Seen) Adenovirus (PCR) Not Detected (NotDetected) B. pertussis DNA (PCR) Not Detected (NotDetected) B.parapertussis DNA PCR Not Detected (NotDetected) C. pneumoniae DNA (PCR) Not Detected (NotDetected) Coronavirus OC43 (PCR) Not Detected (NotDetected) Coronavirus HKU1 (PCR) Not Detected (NotDetected) Coronavirus 229E (PCR) Not Detected (NotDetected) SARS-CoV-2 (PCR) Not Detected (NotDetected) Coronavirus NL63 (PCR) Not Detected (NotDetected) Human Metapneumovir PCR Not Detected (NotDetected) Influenza Type A (PCR) Not Detected (NotDetected) Influenza Type B (PCR) Not Detected (NotDetected) M. pneumoniae (PCR) Not Detected (NotDetected) Parainfluenza 1 (PCR) Not Detected (NotDetected) Parainfluenza 2 (PCR) Not Detected (NotDetected) Parainfluenza 3 (PCR) Not Detected (NotDetected) Parainfluenza 4 (PCR) Not Detected (NotDetected) RSV (PCR) Not Detected (NotDetected) Entero/Rhino (PCR) Not Detected (NotDetected) 01/21/24 Range/Units 14:43 WBC (4.8-10.8) K/ul RBC (4.70-6.10) M/uL Hgb (14.0-18.0) g/dl Hct (42.0-52.0) % MCV (80.0-100.0) fL MCH (25.0-34.0) pg MCHC (32.0-36.0) g/dL RDW Std Deviation (36.4-46.3) fL RDW Coeff of Jaye (11.5-14.5) % Plt Count (130-400) K/uL MPV (9.4-12.4) fL Immature Gran % (Auto) % Neut % (Auto) % Lymph % (Auto) % Dade % (Auto) % Eos % (Auto) % Baso % (Auto) % Neut # (Auto) (1.40-6.50) K/uL Lymph # (Auto) (1.20-3.40) K/uL Dade # (Auto) (0.11-0.59) K/uL Eos # (Auto) (0.00-0.50) K/uL Baso # (Auto) (0.00-0.20) K/uL Immature Gran # (Auto) (0.01-0.20) K/uL Platelet Estimate (Normal) Macrocytosis Ovalocytes PT (9.0-12.0) Seconds INR (0.9-1.1) APTT (21-31) Seconds PTT Ratio VBG pH (7.36-7.41) VBG pCO2 (38-50) mmHg VBG pO2 mmHg VBG HCO3 mmol/L VBG O2 Saturation % VBG Base Excess mEq/L Sodium (136-145) mmol/L Potassium (3.5-5.1) mmol/L Chloride (98-107) mmol/L Carbon Dioxide (21-32) mmol/L Anion Gap (3-11) BUN (6-23) mg/dl Creatinine (0.6-1.4) mg/dl Est Cr Clr Drug Dosing ml/min Est GFR ( Amer) ml/min Est GFR (Non-Af Amer) ml/min BUN/Creatinine Ratio (10-20) Glucose (70-99(Fasting)) mg/dl Lactate (0.4-2.0) mmol/L Calcium (8.6-10.3) mg/dl Magnesium (1.7-2.4) mg/dl Total Bilirubin (0.2-1.0) mg/dl Direct Bilirubin AST (13-39) U/L ALT (7-52) U/L Alkaline Phosphatase (34-104) U/L Troponin I High Sens (0-20) pg/ml Total Protein (6.0-8.3) gm/dl Albumin (3.4-5.0) gm/dl Procalcitonin (0-0.5) ng/ml Urine Color Dark Yellow Urine Appearance Clear (Clear) Urine pH 5.0 (4.5-7.5) Ur Specific [place] 1.021 (1.000-1.030) Urine Protein Trace H (Negative) Urine Glucose (UA) Negative (Negative) Urine Ketones Negative (Negative) Urine Blood Negative (Negative) Urine Nitrite Positive A (Negative) Urine Bilirubin 1+ H (Negative) Urine Urobilinogen Negative (Negative) Ur Leukocyte Esterase Trace H (Negative) Urine WBC (Auto) 0-5 (0-5) /hpf Urine RBC (Auto) 0-2 (0-2) /hpf U Hyaline Cast (Auto) 6-10 H (0-2) /lpf U Epithel Cells (Auto) 0-2 (0-2) /hpf Urine Bacteria (Auto) None Seen (None Seen) Adenovirus (PCR) (NotDetected) B. pertussis DNA (PCR) (NotDetected) B.parapertussis DNA PCR (NotDetected) C. pneumoniae DNA (PCR) (NotDetected) Coronavirus OC43 (PCR) (NotDetected) Coronavirus HKU1 (PCR) (NotDetected) Coronavirus 229E (PCR) (NotDetected) SARS-CoV-2 (PCR) (NotDetected) Coronavirus NL63 (PCR) (NotDetected) Human Metapneumovir PCR (NotDetected) Influenza Type A (PCR) (NotDetected) Influenza Type B (PCR) (NotDetected) M. pneumoniae (PCR) (NotDetected) Parainfluenza 1 (PCR) (NotDetected) Parainfluenza 2 (PCR) (NotDetected) Parainfluenza 3 (PCR) (NotDetected) Parainfluenza 4 (PCR) (NotDetected) RSV (PCR) (NotDetected) Entero/Rhino (PCR) (NotDetected) Imaging Data Attestation: I personally reviewed and interpreted this imaging study as follows: My Impression: Chest x-ray negative. Airway clear. No pneumothorax. No consolidation. No cardiomegaly or cephalization.. No free air under the diaphragm. No fractures of the skeletal structures. Radiologist's Impression: Chest X-Ray 01/21/24 13:06 XR chest 1V portable HISTORY: Sepsis COMPARISON: Chest 07/06/2023. Chest CT 01/19/2024. FINDINGS: No pneumothorax. No pleural effusions. The heart remains enlarged. There is a small hiatus hernia, unchanged. No new focal lung consolidations to suggest a pneumonia. No evidence for pulmonary edema. No acute fractures identified. IMPRESSION: No significant change compared to the prior study. No acute process. ACT 112: Negative or not required by law. Electronically signed by: Baldomero Wisdom M.D. 01/21/2024 1:55 PM ECG Data Attestation: I personally reviewed and interpreted this ECG as follows: Additional Comments: Sinus rhythm with a rate of 90. NM 152 QRS 150 QTc 516. Right bundle branch block present. There is a prolongation of his QTc when compared to previous EKGs. [facility] Narrative 1251: The patient was evaluated in room B11A. A complete history and physical exam was performed Cardiac monitoring: An order was placed for continuous cardiac monitoring. The monitor shows a rate of 90 with sinus rhythm interpreted by wv 1525: Vital signs stable. Labs show white blood cell count of 17.66. Hemoglobin 8.1. Coagulation studies within normal limits. Venous pH 7.37 venous pCO2 36. Electrolytes show creatinine of 1.67, 2 weeks ago and January 01, 2024 patient's creatinine is 1.17. Patient's magnesium is 1.4. Magnesium repletion started the emergency department. Total bilirubin elevated 2.7 but this is chronically elevated. Direct bilirubin of 1. High-sensitivity troponin 44.3. Procalcitonin 1.44. Urinalysis and BioFire respiratory negative. Patient be treated with Rocephin given his high procalcitonin on leukocytosis empirically. Cultures are pending. Patient be admitted to the [facility] hospitalist team discussed case with Dr. Reed who accepts the patient. Impression & Plan KRISSY (acute kidney injury), Hypomagnesemia Discharge Plan Visit Data Chief Complaint: Illness Stated Complaint: SOB/NO APPETITE/CHILLS ED Provider: Conor Abernathy Discharge Problem: KRISSY (acute kidney injury), Hypomagnesemia Patient Disposition: Admitted As Inpatient Forms Stand Alone Forms: My [facility] Prescriptions Prescriptions: No Action mycophenolate mofetil 250 mg capsule 500 mg PO BID Qty: 360 3RF folic acid 1 mg tablet 1 mg PO BID Qty: 180 3RF metoprolol succinate 100 mg tablet extended release 24 hr 100 mg PO HS Qty: 90 1RF pantoprazole 40 mg tablet,delayed release (DR/EC) 40 mg PO BID Qty: 180 3RF tacrolimus 1 mg capsule 2 mg PO Q12 amoxicillin 500 mg capsule 2,000 mg PO DIRECTED PRN (Reason: PRIOR TO DENTAL PROCEDURES) multivitamin Tablet 1 tab PO QAM ferrous sulfate 325 mg (65 mg iron) tablet 325 mg PO BID Qty: 60 0RF levothyroxine 125 mcg tablet 125 mcg PO QAM Rx Instructions: TAKE 1 TABLET BY MOUTH EVERY DAY lisinopril 10 mg tablet 10 mg PO QAM magnesium oxide 500 mg tablet 500 mg PO HS prochlorperazine maleate 10 mg tablet 10 mg PO Q6 PRN (Reason: Nausea And Vomiting) calcium carbonate [Calcium 500] 500 mg calcium (1,250 mg) Tablet 500 mg PO QAM prednisone 5 mg tablet 5 mg PO QDB olanzapine 2.5 mg tablet See Rx Instructions .ROUTE .COMPLEX Rx Instructions: 2.5 mg by mouth at bedtime for 4 days, starting day 1 of chemotherapy levofloxacin 500 mg tablet 500 mg PO HS Rx Instructions: ordered 01/16/24...take for 7 days Referrals Referrals: Santos Rivers MD [Primary Care Provider] -
--- NOTE | 2024-01-21 18:04 | Ultrasound Report ---
US renal transplant w dop CLINICAL HISTORY: Hx renal transplant, acute kidney injury COMPARISON STUDY: Abdomen and pelvis CT 01/19/2024. FINDINGS: There are atrophic red cliff kidneys again noted. There is a right lower quadrant renal transp lant. This measures 11.4 cm. No hydronephrosis. Resistive indices of the renal transplant arcuate art eries are less than 0.8. Normal corticomedullary differentiation of the renal transplant. Peak systol ic velocity within the right renal artery is 112 cm/s. The right renal vein is patent. Mild focal sca rring within the lower pole the right renal transplant. IMPRESSION: 1. Normal right renal transplant. 2. No significant stenosis or occlusion within the right renal transplant artery. 3. Atrophic red cliff kidneys again noted. ACT 112: Negative or not required by law. Electronically signed by: Baldomero Wisdom M.D. 01/21/2024 6:02 PM
[2024-01-21] MEDS: FERROUS SULFATE 325 MG TAB PO SCH (20:52)
[2024-01-21] MEDS: METOPROLOL SUCC 50MG EXT REL TAB PO SCH (20:54)
[2024-01-21] MEDS: MYCOPHENOLATE MOFETIL 250 MG CAP PO SCH (20:55)
[2024-01-21] MEDS: PANTOprazole 40 MG TAB PO SCH (20:56)
[2024-01-21] MEDS: TACROLIMUS 1 MG CAP PO SCH (20:57)
[2024-01-21 21:00] LABS: Hematocrit (blood only) 22.8 % (42.0-52.0); Hemoglobin 7.1 g/dl (14.0-18.0); Mean Corpuscular Hemoglobin 34.1 pg (25.0-34.0); Mean Corpuscular Hgb Conc 31.1 g/dL (32.0-36.0); Mean Corpuscular Volume 109.6 fL (80.0-100.0); Mean Platelet Volume 9.7 fL (9.4-12.4); Platelet Count 226 K/uL (130-400); RDW Coefficient of Variation 12.4 % (11.5-14.5); RDW Standard Deviation 47.8 fL (36.4-46.3); Red Blood Count 2.08 M/uL (4.70-6.10); White Blood Count 12.27 K/ul (4.8-10.8)
[2024-01-21 21:10] LABS: Basophils # (auto) 0.02 K/uL (0.00-0.20); Basophils % (auto) 0.2 %; Eosinophils # (auto) 0.02 K/uL (0.00-0.50); Eosinophils % (auto) 0.2 %; Immature Granulocytes # (auto) 0.07 K/uL (0.01-0.20); Immature Granulocytes % (auto) 0.6 %; Lymphocytes # (auto) 0.39 K/uL (1.20-3.40); Lymphocytes % (auto) 3.2 %; Monocytes # (auto) 0.92 K/uL (0.11-0.59); Monocytes % (auto) 7.5 %; Neutrophils # (auto) 10.85 K/uL (1.40-6.50); Neutrophils % (auto) 88.3 %; RBC Morphology Unremarkable
[2024-01-21] MEDS: ONDANSETRON INJ 2 MG/ML 2 ML VIAL IV SCH (22:55)
[2024-01-21] MEDS: ONDANSETRON INJ 2 MG/ML 2 ML VIAL ONE (22:56)
--- NOTE | 2024-01-21 23:13 | Electrocardiogram Report ---
Test Reason : Blood Pressure : / mmHG Vent. Rate : 090 BPM Atrial Rate : 090 BPM P-R Int : 152 ms QRS Dur : 150 ms QT Int : 422 ms P-R-T Axes : 000 -32 033 degrees QTc Int : 516 ms Sinus rhythm with Premature atrial complexes Left axis deviation Right bundle branch block Minimal voltage criteria for LVH, may be normal variant ( R in aVL ) Abnormal ECG When compared with ECG of 04-JUL-2023 20:48, No significant change Confirmed by Artur Benito ([id number]) on 01/21/2024 11:13:07 PM Referred By: REFERRED SELF Confirmed By:Artur Benito
[2024-01-22 04:24] LABS: Basophils # (auto) 0.03 K/uL (0.00-0.20); Basophils % (auto) 0.2 %; Eosinophils # (auto) 0.05 K/uL (0.00-0.50); Eosinophils % (auto) 0.4 %; Hematocrit (blood only) 22.4 % (42.0-52.0); Immature Granulocytes % (auto) 0.8 %; Lymphocytes # (auto) 0.31 K/uL (1.20-3.40); Lymphocytes % (auto) 2.5 %; Mean Corpuscular Hemoglobin 33.5 pg (25.0-34.0); Mean Corpuscular Hgb Conc 31.3 g/dL (32.0-36.0); Mean Corpuscular Volume 107.2 fL (80.0-100.0); Mean Platelet Volume 9.3 fL (9.4-12.4); Monocytes # (auto) 1.11 K/uL (0.11-0.59); Monocytes % (auto) 8.8 %; Neutrophils # (auto) 10.99 K/uL (1.40-6.50); Neutrophils % (auto) 87.3 %; Platelet Count 220 K/uL (130-400); RDW Coefficient of Variation 12.5 % (11.5-14.5); RDW Standard Deviation 48.6 fL (36.4-46.3); Red Blood Count 2.09 M/uL (4.70-6.10); White Blood Count 12.59 K/ul (4.8-10.8)
[2024-01-22 04:30] LABS: INR 1.1 (0.9-1.1); Prothrombin Time 11.6 Seconds (9.0-12.0)
[2024-01-22 04:39] LABS: Albumin Globulin Ratio 1.1 (0.9-2); Albumin Level 3.2 gm/dl (3.4-5.0); BUN Creatinine Ratio 27.5 (10-20); Bilirubin,Total 1.8 mg/dl (0.2-1.0); Calcium 8.5 mg/dl (8.6-10.3); Creatinine Clr Calc Pharmacy 69.8 ml/min; Est GFR (African American) 74.1 ml/min; Globulin 2.9 gm/dl (2.5-4.0); Total Protein 6.1 gm/dl (6.0-8.3)
[2024-01-22 04:41] LABS: Polychromasia 1+
[2024-01-22] MEDS: CEFEPIME 2,000 MG in SYRINGE 0 ML IV SCH (05:51)
[2024-01-22] MEDS: LEVOTHYROXINE SODIUM 125 MCG TABLET PO SCH (06:08)
[2024-01-22] MEDS: predniSONE 5 MG TAB PO SCH (08:13)
[2024-01-22] MEDS ORDERED: predniSONE 5 MG TAB PO SCH (09:00)
[2024-01-22] MEDS: VANCOMYCIN HCL 1,000 MG in SODIUM CHLORIDE 0.9% 250 ML IV SCH (09:14)
[2024-01-22] MEDS ORDERED: SODIUM CHLORIDE 0.9% 250 ML IV PRN (11:51)
--- NOTE | 2024-01-22 12:03 | Pharmacy Report ---
Pharmacy PK ABX Note - Date of Service January 22, 2024 - Assessment and Plan Laboratory Tests 01/21/24 13:00 WBC 17.66 H Neut # (Auto) 15.71 H Creatinine 1.67 H Est Cr Clr Drug Dosing 50.1 Assessment * 63 year old M receiving EMPIRIC VANC-IV x 48 hours. In addition, patient is receiving Cefepime x 48 hrs. Potential source UTI? * Relevant culture data: BLCX's x 2 pending, urine cx pending, corresponding UA + nitrate, trace LE, however 0-5 WBC and no bacteria; Resp BioFire panel negative, Negative Lyme screen * Day # 2 of antimicrobial therapy. Pt is a kidney transplant, immunocompromised (mycophenolate + tacrolimus + prednisone). Baseline Scr ~1.1 (1.1-1.8). Plan Vancomycin * Loading dose: 2250mg (22.5mg/kg) IV x 1 * Maint dose: 1gm IV Q 12 hrs is predicted to achieve target AUC/LAKIA of 400-600 mg/L.hr * Will order a level if therapy to continue beyond 48 hours Pharmacy will continue to follow and will adjust dose/frequency as necessary. Thank you. Pharmacy has transitioned to AUC monitoring for vancomycin. AUC/LAKIA is the preferred PK/PD target and is associated with decreased risk of nephrotoxicity compared to traditional trough targets.
--- NOTE | 2024-01-22 12:40 | Nephrology Consultation ---
Date of Consultation January 22, 2024 Assessment & Plan (1) Status post kidney transplant: Continue tacrolimus, Cellcept, and prednisone per home Rx. Allograft function stable. Tacro trough pending. Electrolytes normal. Medications appropriately dosed for kidney function. (2) Warm autoimmune hemolytic anemia: Hematology consultation pending. (3) Symptomatic anemia: (4) Benign essential hypertension: Euvolemic. BP acceptable. Continue metoprolol and lisinopril per home Rx. History of Present Illness Reason for Consultation: Hx kidney transplant, infection unknown origin Requesting Physician: Ranjeet Frederick MD Attending Physician: Ranjeet Frederick MD History of Present Illness Mr. 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 He has a functional living unrelated donor kidney transplant. Mr. Mandel [place] in [place] [facility] [place] with Dr. Oro. Creatinine has been ~1.2-1.4 mg/dL. He was on HD for ~1.5 years prior to transplant. Transplant performed at [facility] in 2009. He is maintained on triple maintenance IS with tacrolimus, CellCept, and prednisone. 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 He also developed allograft hydronephrosis requiring stent placement as well as transplant artery stenosis requiring angioplasty. Kidney function has remained excellent for the past few years with no issues or concerns. Medical history also notable for warm autoimmune hemolytic anemia, CAD with history of NSTEMI, atrial fibrillation, hypertension, and obesity. He presented to [facility] yesterday with generalized pain, dehydration, and malaise. WBC elevated. He was admitted with suspected infection. Gumaro reported some recent urinary frequency and suspected UTI. He was started on ceftriaxone and converted to cefepime+ vancomycin. He has been following with hematology for anemia. Last month, he was leukopenic and prescribed a 7 day course of Levaquin. Gumaro was seen and evaluated in the ER this morning. He was resting comfortably in bed. He is afebrile. He states that he feels well overall and significantly better than when he presented to the hospital. He related that he is trying to get his anemia under control so he can schedule hip surgery. Allergies Allergy/AdvReac Type Severity Reaction Status Date / Time clopidogrel [From Plavix] Allergy Unknown Unknown Verified 01/21/24 16:09 Oxsohjq-NAU-PkJ Reductase AdvReac Intermediate myalgias Verified 01/21/24 16:09 Inhibitor [Tbknzny-Oql-Unk Reductase Inhibitor] Home Medications Medication Instructions Recorded Confirmed Type mycophenolate mofetil 250 mg 500 mg (2 x 250 mg) PO BID #360 05/29/20 01/21/24 Rx capsule caps amoxicillin 500 mg capsule 2,000 mg PO DIRECTED PRN PRIOR 07/29/20 01/21/24 History TO DENTAL PROCEDURES multivitamin 1 tab PO QAM 08/02/21 01/21/24 History tacrolimus 1 mg capsule, 2 mg PO Q12 07/08/22 01/21/24 History immediate-release ferrous sulfate 325 mg (65 mg 325 mg PO BID #60 tabs 07/17/23 01/21/24 Rx iron) tablet levothyroxine 125 mcg tablet 125 mcg PO QAM 09/04/23 01/21/24 History lisinopril 10 mg tablet 10 mg PO QAM 09/04/23 01/21/24 History magnesium oxide 500 mg PO HS 09/04/23 01/21/24 History folic acid 1 mg tablet 1 mg PO BID #180 tabs 09/20/23 01/21/24 Rx metoprolol succinate 100 mg 100 mg PO HS #90 tabs 10/27/23 01/21/24 Rx tablet,extended release 24 hr pantoprazole 40 mg tablet,delayed 40 mg PO BID #180 tabs 12/06/23 01/21/24 Rx release calcium carbonate 500 mg PO QAM 01/21/24 01/21/24 History levofloxacin 500 mg tablet 500 mg PO HS 01/21/24 01/21/24 History olanzapine 2.5 mg tablet See Rx Instructions .Route .COMPLEX 01/21/24 01/21/24 History prednisone 5 mg tablet 5 mg PO QDB 01/21/24 01/21/24 History prochlorperazine maleate 10 mg 10 mg PO Q6 PRN Nausea And Vomiting 01/21/24 01/21/24 History tablet Patient History Medical History (Updated 01/21/24 @ 16:51 by Colin Higuera PA-C) Benign essential hypertension On prednisone therapy Ground glass opacity present on imaging of lung Sleep apnea no device Thoracic ascending aortic aneurysm 4.9 cm on chest CTA 01/31/23 Hypertension controlled, stable per pt Limb alert care status left arm restriction History of blood transfusion 07/2023 Hx of herpetic maria Atrial fibrillation controlled w/ metoprolol Eliquis kaiden DC'ed during Nov hospital visit due to anemia issues, no pacer History of COVID-19 07/2020- covid pneumonia, hospitalized; resolved History of renal dialysis prior to kidney transplant; has dialysis fistula left arm History of CVA (cerebrovascular accident) 2008, mild memory changes Adrenal nodule [place] PCP considering adrenal protocol CT or MRI for characterization Symptomatic anemia Retroperitoneal mass lesion biopsy negative for malignancy 05/2022 per transplant record 03/17/23 Chronic kidney disease, stage 3a Anemia hospitalized at [facility] 07/2023, received blood transfusion 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 History of esophageal reflux controlled, stable per pt Hyperlipidemia Hypothyroidism Obesity Osteoporosis Surgical History History of esophagogastroduodenoscopy (EGD) Hx of cholecystectomy Hx of exploratory laparotomy Hx of kidney transplant 02/2010- [employer] [place], [place] History of colonoscopy Family History Grandmother (Maternal) Alzheimer disease Mother Depression Denies family history of Ovarian cancer Prostate cancer Diabetes Heart disease Myocardial infarction Breast cancer Lung cancer COPD (chronic obstructive pulmonary disease) Colorectal cancer Hypertension Stroke Social History Smoking Status: Never smoker Second Hand Exposure: No; Do You Dip or Chew Tobacco: No; Tobacco Cessation Education Requested by Patient: No Hx Alcohol Use: No Hx Substance Use: No 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: Armenian Communication Ability: Effective Visual Impairment: No Limitations Hearing Ability: Normal Lead C Developer Required: No Beliefs That Will Affect Care: Oriental Orthodox marital status: Current Living Situation: Spouse current occupational status: employed current occupation: [employer] How many Children do You have: 1 Other Information That Helps Us Care for You: No Feels Safe at Home: Yes Childhood Exposure to Second-Hand Smoke: No Dental Care, Regularly: Yes Seatbelt Use: sometimes Sunscreen Use: No Assistive Devices: Cane Review of Systems Review of Systems: All systems reviewed & are unremarkable except as noted in HPI & below Constitutional: + fatigue and + weakness Musculoskeletal: + body aches (leg pain) Physical Exam Constitutional: well developed; no acute distress Eyes: no scleral abnormality and no corneal abnormality ENMT: Mouth: no oral mucosal abnormality and oral mucous membranes not dry Neck: normal visual inspection and trachea midline Respiratory: normal respiratory effort Auscultation: lungs clear to auscultation bilaterally Cardiovascular: Rate/Rhythm: regular rate Heart Sounds: normal S1 and normal S2 Extremities: + AV fistula; no edema Musculoskeletal: Extremities: no cyanosis and no clubbing Skin: normal turgor; no lesions Neurologic: Motor/Sensory: no tremor and no asterixis Psychiatric: Orientation: alert and oriented x 3 Results & Data Vital Signs (Past 12 Hours) Vital Signs Temp Pulse Pulse Resp BP Pulse Ox O2 Del Method 01/22/24 10:29 120 H 18 116/77 98 Room Air 01/22/24 09:19 122 H 22 118/68 97 Room Air 01/22/24 08:01 37.0 C 117 H 22 143/88 H 97 Room Air 01/22/24 07:16 117 H 01/22/24 06:18 118 H 20 104/83 97 Room Air Laboratory Results Laboratory Results - last 24 hr 01/21/24 01/21/24 01/21/24 13:00 13:34 14:30 WBC 17.66 H RBC 2.42 L Hgb 8.1 L Hct 26.0 L MCV 107.4 H MCH 33.5 MCHC 31.2 L RDW Std Deviation 48.5 H RDW Coeff of Jaye 12.3 Plt Count 279 MPV 10.3 Immature Gran % (Auto) 1.1 Neut % (Auto) 89.0 Lymph % (Auto) 1.5 [place] % (Auto) 7.7 Eos % (Auto) 0.4 Baso % (Auto) 0.3 Neut # (Auto) 15.71 H Lymph # (Auto) 0.27 L [place] # (Auto) 1.36 H Eos # (Auto) 0.07 Baso # (Auto) 0.05 Immature Gran # (Auto) 0.20 Platelet Estimate Normal RBC Morphology Polychromasia Macrocytosis Present Ovalocytes 1+ PT 12.2 H INR 1.1 APTT 20 L PTT Ratio 0.7 VBG pH 7.37 VBG pCO2 36 L VBG pO2 20 VBG HCO3 21 VBG O2 Saturation < 60.0 VBG Base Excess -3.9 Sodium 132 L Potassium 4.1 Chloride 101 Carbon Dioxide 20 L Anion Gap 11 BUN 39 H Creatinine 1.67 H Est Cr Clr Drug Dosing 50.1 Est GFR ( Amer) 49.7 Est GFR (Non-Af Amer) 42.9 BUN/Creatinine Ratio 23.4 H Glucose 123 H Lactate 1.0 Calcium 9.2 Magnesium 1.4 L Total Bilirubin 2.7 H Direct Bilirubin TNP 1.0 H AST 33 ALT 13 Alkaline Phosphatase 109 H Troponin I High Sens 44.3 H 40.7 H Total Protein 7.0 Albumin 3.7 Globulin Albumin/Globulin Ratio Procalcitonin 1.44 H Urine Color Urine Appearance Urine pH Ur Specific [place] Urine Protein Urine Glucose (UA) Urine Ketones Urine Blood Urine Nitrite Urine Bilirubin Urine Urobilinogen Ur Leukocyte Esterase Urine WBC (Auto) Urine RBC (Auto) U Hyaline Cast (Auto) U Epithel Cells (Auto) Urine Bacteria (Auto) Random Vancomycin Tacrolimus Adenovirus (PCR) Not Detected Anaplasma Smear Babesia Smear Babesia microti DNA PCR B. pertussis DNA (PCR) Not Detected B.parapertussis DNA PCR Not Detected Lyme Disease Screen C. pneumoniae DNA (PCR) Not Detected Coronavirus OC43 (PCR) Not Detected Coronavirus HKU1 (PCR) Not Detected Coronavirus 229E (PCR) Not Detected SARS-CoV-2 (PCR) Not Detected Coronavirus NL63 (PCR) Not Detected Human Metapneumovir PCR Not Detected Influenza Type A (PCR) Not Detected Influenza Type B (PCR) Not Detected M. pneumoniae (PCR) Not Detected Parainfluenza 1 (PCR) Not Detected Parainfluenza 2 (PCR) Not Detected Parainfluenza 3 (PCR) Not Detected Parainfluenza 4 (PCR) Not Detected RSV (PCR) Not Detected Entero/Rhino (PCR) Not Detected Blood Type A Positive Antibody Screen POSITIVE A Antibody Identification Pending Antibody ID Referred Pending Antibody ID Comment Cancelled Crossmatch See Detail 01/21/24 01/21/24 01/21/24 14:43 14:44 20:14 WBC 12.27 H RBC 2.08 L Hgb 7.1 L Hct 22.8 L MCV 109.6 H MCH 34.1 H MCHC 31.1 L RDW Std Deviation 47.8 H RDW Coeff of Jaye 12.4 Plt Count 226 MPV 9.7 Immature Gran % (Auto) 0.6 Neut % (Auto) 88.3 Lymph % (Auto) 3.2 Cand[place] % (Auto) 7.5 Eos % (Auto) 0.2 Baso % (Auto) 0.2 Neut # (Auto) 10.85 H Lymph # (Auto) 0.39 L Candler # (Auto) 0.92 H Eos # (Auto) 0.02 Baso # (Auto) 0.02 Immature Gran # (Auto) 0.07 Platelet Estimate RBC Morphology Unremarkable Polychromasia Macrocytosis Ovalocytes PT INR APTT PTT Ratio VBG pH VBG pCO2 VBG pO2 VBG HCO3 VBG O2 Saturation VBG Base Excess Sodium Potassium Chloride Carbon Dioxide Anion Gap BUN Creatinine Est Cr Clr Drug Dosing Est GFR ( Amer) Est GFR (Non-Af Amer) BUN/Creatinine Ratio Glucose Lactate Calcium Magnesium Total Bilirubin Direct Bilirubin AST ALT Alkaline Phosphatase Troponin I High Sens Total Protein Albumin Globulin Albumin/Globulin Ratio Procalcitonin Urine Color Dark Yellow Urine Appearance Clear Urine pH 5.0 Ur Specific [place] 1.021 Urine Protein Trace H Urine Glucose (UA) Negative Urine Ketones Negative Urine Blood Negative Urine Nitrite Positive A Urine Bilirubin 1+ H Urine Urobilinogen Negative Ur Leukocyte Esterase Trace H Urine WBC (Auto) 0-5 Urine RBC (Auto) 0-2 U Hyaline Cast (Auto) 6-10 H U Epithel Cells (Auto) 0-2 Urine Bacteria (Auto) None Seen Random Vancomycin Tacrolimus Adenovirus (PCR) Anaplasma Smear See Comment Babesia Smear See Comment Babesia microti DNA PCR Pending B. pertussis DNA (PCR) B.parapertussis DNA PCR Lyme Disease Screen Negative C. pneumoniae DNA (PCR) Coronavirus OC43 (PCR) Coronavirus HKU1 (PCR) Coronavirus 229E (PCR) SARS-CoV-2 (PCR) Coronavirus NL63 (PCR) Human Metapneumovir PCR Influenza Type A (PCR) Influenza Type B (PCR) M. pneumoniae (PCR) Parainfluenza 1 (PCR) Parainfluenza 2 (PCR) Parainfluenza 3 (PCR) Parainfluenza 4 (PCR) RSV (PCR) Entero/Rhino (PCR) Blood Type Antibody Screen Antibody Identification Antibody ID Referred Antibody ID Comment Crossmatch 01/22/24 04:09 WBC 12.59 H RBC 2.09 L Hgb 7.0 L Hct 22.4 L MCV 107.2 H MCH 33.5 MCHC 31.3 L RDW Std Deviation 48.6 H RDW Coeff of Jaye 12.5 Plt Count 220 MPV 9.3 L Immature Gran % (Auto) 0.8 Neut % (Auto) 87.3 Lymph % (Auto) 2.5 [place] % (Auto) 8.8 Eos % (Auto) 0.4 Baso % (Auto) 0.2 Neut # (Auto) 10.99 H Lymph # (Auto) 0.31 L [place] # (Auto) 1.11 H Eos # (Auto) 0.05 Baso # (Auto) 0.03 Immature Gran # (Auto) 0.10 Platelet Estimate RBC Morphology Polychromasia 1+ Macrocytosis Ovalocytes PT 11.6 INR 1.1 APTT PTT Ratio VBG pH VBG pCO2 VBG pO2 VBG HCO3 VBG O2 Saturation VBG Base Excess Sodium 132 L Potassium 4.0 Chloride 104 Carbon Dioxide 20 L Anion Gap 8 BUN 33 H Creatinine 1.20 D Est Cr Clr Drug Dosing 69.8 Est GFR ( Amer) 74.1 Est GFR (Non-Af Amer) 64.0 BUN/Creatinine Ratio 27.5 H Glucose 129 H Lactate Calcium 8.5 L Magnesium 2.0 Total Bilirubin 1.8 H Direct Bilirubin AST 20 ALT 10 Alkaline Phosphatase 99 Troponin I High Sens Total Protein 6.1 Albumin 3.2 L Globulin 2.9 Albumin/Globulin Ratio 1.1 Procalcitonin Urine Color Urine Appearance Urine pH Ur Specific [place] Urine Protein Urine Glucose (UA) Urine Ketones Urine Blood Urine Nitrite Urine Bilirubin Urine Urobilinogen Ur Leukocyte Esterase Urine WBC (Auto) Urine RBC (Auto) U Hyaline Cast (Auto) U Epithel Cells (Auto) Urine Bacteria (Auto) Random Vancomycin 11.7 Tacrolimus Pending Adenovirus (PCR) Anaplasma Smear Babesia Smear Babesia microti DNA PCR B. pertussis DNA (PCR) B.parapertussis DNA PCR Lyme Disease Screen C. pneumoniae DNA (PCR) Coronavirus OC43 (PCR) Coronavirus HKU1 (PCR) Coronavirus 229E (PCR) SARS-CoV-2 (PCR) Coronavirus NL63 (PCR) Human Metapneumovir PCR Influenza Type A (PCR) Influenza Type B (PCR) M. pneumoniae (PCR) Parainfluenza 1 (PCR) Parainfluenza 2 (PCR) Parainfluenza 3 (PCR) Parainfluenza 4 (PCR) RSV (PCR) Entero/Rhino (PCR) Blood Type Antibody Screen Antibody Identification Antibody ID Referred Antibody ID Comment Crossmatch Diagnostic Findings US renal transplant w dop COMPARISON STUDY: Abdomen and pelvis CT 01/19/2024. FINDINGS: There are atrophic [place] kidneys again noted. There is a right lower quadrant renal transplant. This measures 11.4 cm. No hydronephrosis. Resistive indices of the renal transplant arcuate arteries are less than 0.8. Normal corti comedullary differentiation of the renal transplant. Peak systolic velocity within the right renal artery is 112 cm/s. The right renal vein is patent. Mild focal scarring within the lower pole the right renal transplant. IMPRESSION: 1. Normal right renal transplant. 2. No significant stenosis or occlusion within the right renal transplant artery. 3. Atrophic [place] kidneys again noted. PG Care Time/CCT Total # of Minutes Spent Total Time Spent with Patient: Total time spent is greater than 50% in coordination of care (as documented) at patient's floor/unit and/or counseling patient: Coding Level of Care Code 35916 IN/OBS CONSULT LVL 4,60M Diagnoses Status post kidney transplant Z94.0 Warm autoimmune hemolytic anemia D59.11 Symptomatic anemia D64.9 Benign essential hypertension I10
--- NOTE | 2024-01-22 14:35 | Oncology Consultation ---
Date of Consultation January 22, 2024 Assessment & Plan (1) Autoimmune hemolytic anemia: I evaluated the patient in the ER today. At this point it is clear we are dealing with refractory warm AIHA. He is not responded to multiple lines of immunosuppression including IVIG, prednisone, rituximab currently being on Cytoxan. His hemoglobin was only 7 g/dL. I recommended another packed red blood cell transfusion to keep his hemoglobin above 7 especially keeping in mind that he is symptomatic. Since he would not be getting his next dose of Cytoxan while he is in the hospital my recommendation would be Continued immunosuppression. I recommend another 2 doses of IVIG which can be given while the patient is here. We can also give stress dose steroids including Solu-Medrol 1 g/day for the next 3 days given the severity of his anemia and hemolysis. Subsequently he can be discharged home on a prednisone ta per. Recommendations: Blood transfusion, packed red blood cells 1 unit Steroids, Solu-Medrol 1 g for next 3 days, followed by prednisone taper, 60 mg p.o. daily for 5 days followed by 40 mg p.o. daily for 5 days followed by 20 mg p.o. daily for 5 days followed by 10 mg p.o. daily for 5 days followed by 5 mg p.o. daily long-term. IVIG 1 g/kg Plan Hematology will continue to follow the patient, make appropriate recommendations.. When he is discharged from the hospital I will resume high- dose cyclophosphamide for the remainder of 3 doses before making a decision whether he is refractory to Cytoxan or not. History of Present Illness Reason for Consultation: Anemia Autoimmune hemolytic anemia Attending Physician: Ranjeet Frederick MD History of Present Illness The patient is a very pleasant 63-year-old male who I followed for the last 6 months. He was initially evaluated late last year with severe anemia. At that time he needed 2 packed blood cell blood transfusion. We performed a comprehensive anemia workup including Tawanna test as well as LDH. Both were positive. Based on the testing done at that time we diagnosed him with warm AIHA. He was given IVIG, prednisone taper and responded initially. However he continued to be anemic. We gave him rituximab, he did not respond. Subsequently we started him on Cytoxan 1000 mg every 4 hours. He received last dose of Cytoxan about 4 weeks ago however he came to the hospital again complaining of severe pain everywhere as well as fatigue. He was noted to be anemic, hemoglobin of 7 g/dL. He has elevated WBC count. Hematology has been consulted to assist in management of this patient with refractory warm autoimmune hemolytic anemia who has not responded to steroids, IVIG, rituximab and is currently on high-dose cyclophosphamide. We had recently performed a bone marrow biopsy and the prelim report is negative for myelodysplastic syndrome. Most likely we are dealing with warm AIHA. He does have splenomegaly. The patient was complaining of fatigue, tiredness and generalized body pain. He had elevated WBC count however did not receive Neulasta. Allergies Allergy/AdvReac Type Severity Reaction Status Date / Time clopidogrel [From Plavix] Allergy Unknown Unknown Verified 01/21/24 16:09 Mihpsgj-TJA-NzD Reductase AdvReac Intermediate myalgias Verified 01/21/24 16:09 Inhibitor [Gflgtfp-Pjr-Sru Reductase Inhibitor] Home Medications Medication Instructions Recorded Confirmed Type mycophenolate mofetil 250 mg 500 mg (2 x 250 mg) PO BID #360 05/29/20 01/21/24 Rx capsule caps amoxicillin 500 mg capsule 2,000 mg PO DIRECTED PRN PRIOR 07/29/20 01/21/24 History TO DENTAL PROCEDURES multivitamin 1 tab PO QAM 08/02/21 01/21/24 History tacrolimus 1 mg capsule, 2 mg PO Q12 07/08/22 01/21/24 History immediate-release ferrous sulfate 325 mg (65 mg 325 mg PO BID #60 tabs 07/17/23 01/21/24 Rx iron) tablet levothyroxine 125 mcg tablet 125 mcg PO QAM 09/04/23 01/21/24 History lisinopril 10 mg tablet 10 mg PO QAM 09/04/23 01/21/24 History magnesium oxide 500 mg PO HS 09/04/23 01/21/24 History folic acid 1 mg tablet 1 mg PO BID #180 tabs 09/20/23 01/21/24 Rx metoprolol succinate 100 mg 100 mg PO HS #90 tabs 10/27/23 01/21/24 Rx tablet,extended release 24 hr pantoprazole 40 mg tablet,delayed 40 mg PO BID #180 tabs 12/06/23 01/21/24 Rx release calcium carbonate 500 mg PO QAM 01/21/24 01/21/24 History levofloxacin 500 mg tablet 500 mg PO HS 01/21/24 01/21/24 History olanzapine 2.5 mg tablet See Rx Instructions .Route .COMPLEX 01/21/24 01/21/24 History prednisone 5 mg tablet 5 mg PO QDB 01/21/24 01/21/24 History prochlorperazine maleate 10 mg 10 mg PO Q6 PRN Nausea And Vomiting 01/21/24 01/21/24 History tablet Patient History Medical History (Updated 01/22/24 @ 14:37 by Ba Gonsalez MD) Benign essential hypertension On prednisone therapy Ground glass opacity present on imaging of lung Sleep apnea no device Thoracic ascending aortic aneurysm 4.9 cm on chest CTA 01/31/23 Hypertension controlled, stable per pt Limb alert care status left arm restriction History of blood transfusion 07/2023 Hx of herpetic maria Atrial fibrillation controlled w/ metoprolol Eliquis recently DC'ed during Jul hospital visit due to anemia issues, no pacer History of COVID-19 07/2020- covid pneumonia, hospitalized; resolved History of renal dialysis prior to kidney transplant; has dialysis fistula left arm History of CVA (cerebrovascular accident) 2008, mild memory changes Adrenal nodule [place] PCP considering adrenal protocol CT or MRI for characterization Symptomatic anemia Retroperitoneal mass lesion biopsy negative for malignancy 05/2022 per transplant record 03/17/23 Chronic kidney disease, stage 3a Anemia hospitalized at [facility] 07/2023, received blood transfusion 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 History of esophageal reflux controlled, stable per pt Hyperlipidemia Hypothyroidism Obesity Osteoporosis Surgical History History of esophagogastroduodenoscopy (EGD) Hx of cholecystectomy Hx of exploratory laparotomy [place] [facility] [place] History of colonoscopy Family History Grandmother (Maternal) Alzheimer disease Mother Depression Denies family history of Ovarian cancer Prostate cancer Diabetes Heart disease Myocardial infarction Breast cancer Lung cancer COPD (chronic obstructive pulmonary disease) Colorectal cancer Hypertension Stroke Social History Smoking Status: Never smoker Second Hand Exposure: No; Do You Dip or Chew Tobacco: No; Tobacco Cessation Education Requested by Patient: No Hx Alcohol Use: No Hx Substance Use: No 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: Surinamese Communication Ability: Effective Visual Impairment: No Limitations Hearing Ability: Normal Project Development Manager Required: No Beliefs That Will Affect Care: Christian marital status: Current Living Situation: Spouse current occupational status: employed current occupation: [employer] How many Children do You have: 1 Other Information That Helps Us Care for You: No Feels Safe at Home: Yes Childhood Exposure to Second-Hand Smoke: No Dental Care, Regularly: Yes Seatbelt Use: sometimes Sunscreen Use: No Assistive Devices: Cane and Walker Review of Systems Review of Systems: All systems reviewed & are unremarkable except as noted in HPI & below Fatigue, generalized body ache Constitutional: as per Subjective / HPI Eyes: as per Subjective / HPI Ear, Nose, Mouth, Throat: as per Subjective / HPI Respiratory: as per Subjective / HPI Cardiovascular: as per Subjective / HPI Gastrointestinal: as per Subjective / HPI Genitourinary: + as per Subjective / HPI Musculoskeletal: as per Subjective / HPI Integumentary: as per Subjective / HPI Neurologic: as per Subjective / HPI Endocrine: as per Subjective / HPI Physical Exam Constitutional: WD/WN, vitals as above Eyes: PERRL, conjunctivae normal, anicteric sclerae ENMT: external ear and nose normal, oropharynx normal Neck: trachea midline, no thyromegaly Respiratory: normal respiratory effort, lungs clear to auscultation Cardiovascular: RRR, no murmur, no edema Gastrointestinal (Abdomen): normal bowel sounds, soft, nontender, no hepatosplenomegaly Musculoskeletal: no cyanosis or clubbing, extremities motor strength 5/5 Skin: no rashes, warm and dry Neurologic: patellar DTR's 2+ bilat, sensation intact Psychiatric: A+Ox3, euthymic affect Results & Data Vital Signs (Past 12 Hours) Vital Signs Temp Pulse Pulse Resp BP Pulse Ox O2 Del Method 01/22/24 13:45 121 H 01/22/24 13:44 36.6 C 121 H 20 111/70 98 Room Air 01/22/24 10:29 120 H 18 116/77 98 Room Air 01/22/24 09:19 122 H 22 118/68 97 Room Air 01/22/24 08:01 37.0 C 117 H 22 143/88 H 97 Room Air 01/22/24 07:16 117 H 01/22/24 06:18 118 H 20 104/83 97 Room Air
[2024-01-22] MEDS ORDERED: IMMUNE GLOBULIN (HUMAN) SOLN IV ONE (16:06)
--- NOTE | 2024-01-22 16:07 | Hospitalist Progress Note ---
Date of Service January 22, 2024 Assessment & Plan (1) Leukocytosis: Plan: -Presented to the ED today with approximately 3-4 days of progressive malaise, body aches, and poor oral intake -On admission leukocytosis of 17 with neutrophil predominance of 15 and procal of 1.44 --> source unclear - UTI with nitrates and trace leukocytes, UC with less than 1,000 colonies - BC no gowth 24 hours - CXR negative for acute findings - Does have redness of right 5th digit,warmth and asymetrical swelling --> ? source - xray ordered, low threshold for MRI - Denies respiratory, GI, neurologic symptoms - did NOT receive Neupogen recently Continue vancomycin and Cefepime --> switched to skin and soft tissue protocol AM CBC and BMP (2) Warm autoimmune hemolytic anemia: Plan: -[facility] for Warm Autoimmune Hemolytic anemia - Dr. Gonsalez -Hgb 7.0 --> transfuse 1units PRBCs - given pt blood type, blood will not arrive until evening critical care physician assistant - will recheck CBC in AM hematology consulted - Refractory warm AIHA - steroid taper: Solu-Medrol 1 g for next 3 days, followed by prednisone taper, 60 mg p.o. daily x 5 days, 40 mg p.o. x 5 days, 20 mg p.o. x 5 days, 10 mg p.o. daily x 5 days, then 5 mg p.o. daily long-term - IVIG 1g/kg -Total bili of 2.7 on admission, now downtrending -Patient is without scleral icterus or jaundice, has been stable LE dopplers ordered, pending - given tachycardia and increased risk for clots - if develops hypoxia, low threshold for CTA AM CBC (3) KRISSY (acute kidney injury): Plan: -Cr today is 1.67, baseline is 1.1. meets criteria for KRISSY with 1.5 x his baseline Cr -Patient reports poor PO intake over the past week, is not on diuretics. Recieved 1L IVF - Renal US: normal right renal transplant, no significant stenosis or occlusion noted (4) Status post kidney transplant: Plan: -S/P renal transplant in 2009 Nephrology consulted -Continue Tacrolimus, Cellcept, and Prednisone daily - Tacrolimus level pending (5) Hypomagnesemia: Plan: -Noted to be 1.4 today -Likely due to recent poor PO intake -K+ is stable -Has had 1 of 2 bags 1gm IV mag-sulfate ordered in the ED -Will order an additional 2 bags on admission -Monitor am electrolytes (6) Atrial fibrillation: Plan: -Hx of paroxysmal afib -Has been off anticoagulation since his admission for anemia in 2022 -Continue metoprolol (7) Benign essential hypertension: Plan: -Stable -Holding lisinopril due to KRISSY Plan Dispo: continued inpatient stay DVT proh: SCDs Offer to call patient family and he declined 5/6 Admission and Anticipated Discharge Date Admission Date: January 21, 2024 Supervising Physician Co-Signing Physician Notes Patient seen and examined, chart reviewed, case discussed with Lois Cordova and I agree with the assessment and plan as above except as otherwise noted Labs and images reviewed 63-year-old male with past medical history of renal transplant in 2009 stable on tacrolimus/CellCept/prednisone, warm autoimmune hemolytic anemia followed by oncology, and hypertension who presented to the ER with 3 to 4 days of muscle aches, body aches, feeling generally poor and who was found to have a leukocytosis and elevated procalcitonin. Initially was suspected his leukocytosis may have been from Neulasta treatment however was confirmed with oncology that patient did not receive this and as such is highly suspicious for steroid versus infection induced. Given potential immunosuppression recommend broad empiric treatment and workup. At time of bedside assessment patient appears hemodynamically stable, but fatigued. He denies any shortness of breath, inspiratory pain, dyspnea. He is tachycardic but he is not hypoxic. Increased risk of VTE with warm AIHA, CTA is limited by KRISSY initially and with further increased risk with renal transplant status. As he is not hypoxic and does not show any evidence of pleuritic pain or respiratory symptoms CTA not indicated at this time, but will get lower extremity Dopplers as part of warm AIHA workup. sinus tachycardia likely reactive due to infection/anemia. Denies urinary symptoms, no abdominal pain/abdominal symptoms. On skin survey patient's right fifth digit is with a bloody hematoma which also has multiple pinpoint areas of fluctuance with whitish material subcutaneously, see photo below. Patient reports he did pinch his finger "a while ago "and was initially painful but improved, but over the last several days does seem to be more warm, red, and is tender to the touch. He is able to flex and extend the fifth digit without pain radiating to his hand, does endorse some localized pressure/tenderness at the fingertip. Given potential purulence, increased risk for infections, and asymmetric warmth/erythema will continue broad workup with blood cultures, but also treat as potential cellulitis. X-ray ordered to evaluate for any cortical changes/osteo. Do not recommend CT with contrast to evaluate for abscess due to renal function at this time. Patient is covered with vancomycin. If signs of osteo then will need extended antibiotics and will consult orthopedics, if no cortical changes but is not improving where there is high concern for abscess/osteo then can follow-up with MRI top further evaluation. At this time no other source of infection is identified, will continue to follow cultures and cefepime/vancomycin continued. Hematology oncology consulted for warm AIHA I, agree with steroids with taper and IVIG. Patient has been ordered 1 unit for transfusion this requires transport from outside blood bank. Additional unit ordered to have on hold. Agree with assessment and management otherwise as above Subjective Patient seen earlier this morning while in the ED, no family at bedside. Reports that he has been feeling lousy over the last few weeks, better today than when he came in but still not great. Denies abdominal pain or cough. No new rashes or bug bites. Does have inflammation of right pinky finger, unable to tell me how long that has been there. Review of Systems 2 Review of Systems: All systems reviewed & are unremarkable except as noted in Subjective Physical Exam 2 Physical Exam: General: NAD, VS as above Resp: normal respiratory effort, lungs clear to auscultation CV: tachycardic, no murmur, Abd: normal bowel sounds, non tender, no hepatosplenomegaly Extremities: Moves all extremities, no edema Neuro: A&O x3, Skin: intact, no rashes. Swelling with redness of right pinky finger tip, does not extend down into hand or wrist, able to move finger. no abscess. Results & Data Results & Data Vital Signs (Past 12 Hours) Vital Signs Temp Pulse Pulse Resp BP Pulse Ox O2 Del Method 01/22/24 15:00 123 H 01/22/24 13:45 Room Air 01/22/24 13:45 121 H 01/22/24 13:44 36.6 C 121 H 20 111/70 98 Room Air 01/22/24 10:29 120 H 18 116/77 98 Room Air 01/22/24 09:19 122 H 22 118/68 97 Room Air 01/22/24 08:01 37.0 C 117 H 22 143/88 H 97 Room Air 01/22/24 07:16 117 H 01/22/24 06:18 118 H 20 104/83 97 Room Air Laboratory Results CBC chemsitry and mag reviewed PG Care Time/CCT Total # of Minutes Spent Total Time Spent with Patient: Total time spent is greater than 50% in coordination of care (as documented) at patient's floor/unit and/or counseling patient: Coding Level of Care Code 23520 SUB INP/OBS CARE 3/50MIN Diagnoses Leukocytosis D72.829 Warm autoimmune hemolytic anemia D59.11 KRISSY (acute kidney injury) N17.9 Status post kidney transplant Z94.0 Hypomagnesemia E83.42 Atrial fibrillation I48.91 Benign essential hypertension I10
[2024-01-22] MEDS ORDERED: methylPREDNISolone 1,000 MG in SYRINGE 0 ML IV SCH (16:15)
[2024-01-22] MEDS: ACETAMINOPHEN 325 MG TAB PO PRN (16:31)
[2024-01-22] MEDS ORDERED: Octagam 10% IVIG 20 gram bottle IV SCH (17:00)
[2024-01-22] MEDS: methylPREDNISolone 1,000 MG in DEXTROSE 5% 250 ML IV SCH (17:22)
[2024-01-22] MEDS: Octagam 10% IVIG 20 gram bottle IV SCH (17:25)
--- NOTE | 2024-01-22 20:05 | XRay Report ---
XR finger(s) RT min 2V CLINICAL HISTORY: 5th finger, ? osteo TECHNIQUE: 3 views of the right fifth digit were obtained. Comparison: None available at the time of this dictation. FINDINGS: There is no evidence of erosive change to suggest osteomyelitis. Joint spaces are well-preserved. Sof t tissue swelling is seen about the fifth digit. IMPRESSION: Soft tissue swelling without underlying erosive change to suggest osteomyelitis. ACT 112: Negative or not required by law. Electronically signed by: Chris Serra M.D. 01/22/2024 8:02 PM
[2024-01-23 06:31] LABS: Hematocrit (blood only) 23.7 % (42.0-52.0); Hemoglobin 7.8 g/dl (14.0-18.0); Mean Corpuscular Hemoglobin 35.9 pg (25.0-34.0); Mean Corpuscular Hgb Conc 32.9 g/dL (32.0-36.0); Mean Corpuscular Volume 109.2 fL (80.0-100.0); Mean Platelet Volume 9.4 fL (9.4-12.4); Platelet Count 230 K/uL (130-400); RDW Coefficient of Variation 13.4 % (11.5-14.5); Red Blood Count 2.17 M/uL (4.70-6.10); White Blood Count 9.91 K/ul (4.8-10.8)
[2024-01-23 06:46] LABS: Albumin Globulin Ratio 0.7 (0.9-2); Albumin Level 3.2 gm/dl (3.4-5.0); BUN Creatinine Ratio 25.4 (10-20); Bilirubin,Total 2.3 mg/dl (0.2-1.0); Calcium 8.5 mg/dl (8.6-10.3); Creatinine Clr Calc Pharmacy 64.4 ml/min; Est GFR (African American) 67.3 ml/min; Est GFR (Non-African American) 58.1 ml/min; Globulin 4.3 gm/dl (2.5-4.0); Magnesium 1.8 mg/dl (1.7-2.4); Potassium 4.6 mmol/L (3.5-5.1); Total Protein 7.5 gm/dl (6.0-8.3)
[2024-01-23 06:58] LABS: Basophils # (auto) 0.01 K/uL (0.00-0.20); Basophils % (auto) 0.1 %; Immature Granulocytes # (auto) 0.07 K/uL (0.01-0.20); Immature Granulocytes % (auto) 0.7 %; Lymphocytes # (auto) 0.09 K/uL (1.20-3.40); Lymphocytes % (auto) 0.9 %; Monocytes # (auto) 0.31 K/uL (0.11-0.59); Monocytes % (auto) 3.1 %; Neutrophils # (auto) 9.43 K/uL (1.40-6.50); Neutrophils % (auto) 95.2 %; RBC Morphology Unremarkable
--- NOTE | 2024-01-23 09:36 | Ultrasound Report ---
US venous doppler LE BI CLINICAL HISTORY: dvt, increased risk --> warm AIHA TECHNIQUE: Bilateral lower extremity real-time compression venous ultrasound with Color Doppler imagi ng. Utilizing real-time ultrasonic imaging multiple real time high-resolution ultrasonic images with compression and noncompression maneuvers of the deep venous system in addition to color doppler imagi ng were performed from the common femoral vein through the proximal calf veins. COMPARISON: Comparison is made to a venous Doppler ultrasound 05/12/2022 FINDINGS/IMPRESSION: Currently there is normal compressibility of the deep venous system from the common femoral vein thro ugh the proximal calf veins. Slow flow and mild subcutaneous edema is seen bilaterally. ACT 112: Negative or not required by law. Electronically signed by: Chris Serra M.D. 01/23/2024 9:34 AM
--- NOTE | 2024-01-23 11:03 | Nephrology Progress Note ---
Date of Service January 23, 2024 Assessment & Plan (1) Status post kidney transplant: Plan: Continue tacrolimus and Cellcept per home Rx. Steroids per hematology recs. Allograft function stable. [place] trough pending. Electrolytes normal. Medications appropriately dosed for kidney function. (2) Warm autoimmune hemolytic anemia: Plan: IVIG + methylprednisolone per hematology recs. (3) Symptomatic anemia: Plan: s/p 1 unit PRBC overnight. (4) Benign essential hypertension: Plan: Euvolemic. BP acceptable. Continue metoprolol and lisinopril per home Rx. Admission and Anticipated Discharge Date Admission Date: January 21, 2024 Subjective No acute events overnight. Gumaro reports feeling much better this morning. No fevers or chills. Denies fluid retention or edema. Review of Systems Review of Systems: All systems reviewed & are unremarkable except as noted in HPI & below Physical Exam Constitutional: well developed; no acute distress Eyes: no scleral abnormality and no corneal abnormality ENMT: Mouth: no oral mucosal abnormality and oral mucous membranes not dry Neck: normal visual inspection and trachea midline Respiratory: normal respiratory effort Auscultation: lungs clear to auscu ltation bilaterally Cardiovascular: Rate/Rhythm: regular rate Heart Sounds: normal S1 and normal S2 Extremities: no edema Musculoskeletal: Extremities: no cyanosis and no clubbing Skin: normal turgor; no lesions Neurologic: Motor/Sensory: no tremor and no asterixis Psychiatric: Orientation: alert and oriented x 3 Results & Data Vital Signs (Past 12 Hours) Vital Signs Temp Pulse Pulse Resp BP BP Pulse Ox 01/23/24 08:00 01/23/24 07:40 36.4 C L 85 20 100/66 100 01/23/24 07:08 88 01/23/24 03:24 36.7 C 109 H 18 114/71 96 01/23/24 01:52 36.8 C 101 H 18 117/82 100 01/23/24 00:54 36.6 C 112 H 18 106/74 99 01/23/24 00:03 112 H 01/23/24 00:00 01/22/24 23:54 36.7 C 110 H 18 121/83 96 01/22/24 23:24 37 C 111 H 18 116/78 96 01/22/24 23:09 36.6 C 106 H 18 116/79 97 Pulse Ox O2 Del Method O2 Del Method 01/23/24 08:00 Room Air 01/23/24 07:40 Room Air 01/23/24 07:08 01/23/24 03:24 Room Air 01/23/24 01:52 01/23/24 00:54 01/23/24 00:03 01/23/24 00:00 96 Room Air 01/22/24 23:54 01/22/24 23:24 01/22/24 23:09 Laboratory Results Laboratory Results - last 24 hr 01/21/24 01/21/24 01/21/24 14:30 14:30 14:30 WBC RBC Hgb Hct MCV MCH MCHC RDW Std Deviation RDW Coeff of Jaye Plt Count MPV Immature Gran % (Auto) Neut % (Auto) Lymph % (Auto) [place] % (Auto) Eos % (Auto) Baso % (Auto) Neut # (Auto) Lymph # (Auto) [place] # (Auto) Eos # (Auto) Baso # (Auto) Immature Gran # (Auto) RBC Morphology Sodium Potassium Chloride Carbon Dioxide Anion Gap BUN Creatinine Est Cr Clr Drug Dosing Est GFR ( Amer) Est GFR (Non-Af Amer) BUN/Creatinine Ratio Glucose Osmolality Calcium Magnesium Total Bilirubin AST ALT Alkaline Phosphatase Total Protein Albumin Globulin Albumin/Globulin Ratio Blood Type A Positive Antibody Screen POSITIVE A Antibody Identification Auto Cold Agglutinin Auto Gil Agglutinin Anti-E Antibody ID Comment Cancelled Crossmatch See Detail 01/23/24 01/23/24 05:29 08:31 WBC 9.91 RBC 2.17 L Hgb 7.8 L Hct 23.7 L MCV 109.2 H MCH 35.9 H MCHC 32.9 RDW Std Deviation 51.0 H RDW Coeff of Jaye 13.4 Plt Count 230 MPV 9.4 Immature Gran % (Auto) 0.7 Neut % (Auto) 95.2 Lymph % (Auto) 0.9 [place] % (Auto) 3.1 Eos % (Auto) 0.0 Baso % (Auto) 0.1 Neut # (Auto) 9.43 H Lymph # (Auto) 0.09 L [place] # (Auto) 0.31 Eos # (Auto) 0.00 Baso # (Auto) 0.01 Immature Gran # (Auto) 0.07 RBC Morphology Unremarkable Sodium 131 L Potassium 4.6 Chloride 103 Carbon Dioxide 19 L Anion Gap 9 BUN 33 H Creatinine 1.30 Est Cr Clr Drug Dosing 64.4 Est GFR ( Amer) 67.3 Est GFR (Non-Af Amer) 58.1 BUN/Creatinine Ratio 25.4 H Glucose 178 H Osmolality 291 Calcium 8.5 L Magnesium 1.8 Total Bilirubin 2.3 H AST 17 ALT 13 Alkaline Phosphatase 111 H Total Protein 7.5 D Albumin 3.2 L Globulin 4.3 H Albumin/Globulin Ratio 0.7 L Blood Type Antibody Screen Antibody Identification Antibody ID Comment Crossmatch PG Care Time/CCT Total # of Minutes Spent Total Time Spent with Patient: Total time spent is greater than 50% in coordination of care (as documented) at patient's floor/unit and/or counseling patient: Coding Level of Care Code 70477 SUB INP/OBS CARE 3/50MIN Diagnoses Status post kidney transplant Z94.0 Warm autoimmune hemolytic anemia D59.11 Symptomatic anemia D64.9 Benign essential hypertension I10
--- NOTE | 2024-01-23 18:31 | Hospitalist Progress Note ---
Date of Service January 23, 2024 Assessment & Plan (1) Leukocytosis: Plan: -Presented to the ED today with approximately 3-4 days of progressive malaise, body aches, and poor oral intake -On admission leukocytosis of 17 with neutrophil predominance of 15 and procal of 1.44 --> source unclear, possible pinky finger - UTI with nitrates and trace leukocytes, UC with less than 1,000 colonies - BC no gowth 24 hours - CXR negative for acute findings - Does have redness of right 5th digit,warmth and asymetrical swelling --> ? source - xray ordered - no evidence of osteomylitis - Denies respiratory, GI, neurologic symptoms - did NOT receive Neupogen recently Recieved vancomycin and Cefepime --> clinically improving, will dessecelate coverage to ceftriaxone starting 01/23 for pinky finger. No documented hx of MRSA. PT/OT - do not feel that he would be safe to go home with today, will continue to monitor for need for rehab AM CBC and BMP (2) Warm autoimmune hemolytic anemia: Plan: -[facility] for Warm Autoimmune Hemolytic anemia - Dr. 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 daily x 5 days, 40 mg p.o. x 5 days, 20 mg p.o. x 5 days, 10 mg p.o. daily x 5 days, then 5 mg p.o. daily long-term - IVIG 1g/kg x2 days -Total bili of 2.7 on admission, now downtrending -Patient is without scleral icterus or jaundice, has been stable LE dopplers ordered, no DVT given tachycardia and increased risk for clots - if develops hypoxia, low threshold for CTA AM CBC (3) KRISSY (acute kidney injury): Plan: -Cr today is 1.67, baseline is 1.1. meets criteria for KRISSY with 1.5 x his baseline Cr -Patient reports poor PO intake over the past week, is not on diuretics. Recieved 1L IVF - Renal US: normal right renal transplant, no significant stenosis or occlusion noted Resolved (4) Status post kidney transplant: Plan: -S/P renal transplant in 2009 Nephrology consulted -Continue Tacrolimus, Cellcept, - Prednisone held given steroid taper as above - Tacrolimus level pending (5) Hypomagnesemia: Plan: Replaced IV and now WNL also with hyponatermia low urine sodium osm, normal serum osm --> suspect solute deficient. Diet liberalized Recheck AM consider NaCl tabs (6) Atrial fibrillation: Plan: -Hx of paroxysmal afib -Has been off anticoagulation since his admission for anemia in 2022 -Continue metoprolol (7) Benign essential hypertension: Plan: -Stable Resume lisinopril as BP allows Plan Dispo: continued inpatient stay DVT proh: SCDs Discussed case with Dr. Gonsalez today Admission and Anticipated Discharge Date Admission Date: January 21, 2024 Supervising Physician Co-Signing Physician Notes Attending Attestation - Chart reviewed, care plan d/w MASON Trejo. I agree w/ the swanson components of her documentation. Complex patient with sepsis work-up, WAHA, kidney transplant status, a.fib, mul tiple immunosuppressant medicines. Continue IV antibiotics empirically; ?cellulitis right 5th finger? Is this source for recent leukocytosis/sepsis? Continue steroids for WAHA per heme/onc. Appreciate nephrology and heme/onc consultations. Creatinine stable 1.2 to 1.3. Arian Moy MD Subjective patient seen this afternoon -- continues to feel better. no evidence of bleeding anywhere felt weak with transfer with therapy but could feel himself getting stronger with each session Tele - SR IVCD with PACs 90s Review of Systems Review of Systems: All systems reviewed & are unremarkable except as noted in Subjective Physical Exam Physical Exam: General: NAD, VS as above Resp: normal respiratory effort, lungs clear to auscultation CV: RRR, no murmur, Abd: normal bowel sounds, non tender, no hepatosplenomegaly Extremities: Moves all extremities, no edema Neuro: A&O x3, Skin: intact, no rashes. Swelling with redness of right pinky finger tip, - improved since yesterday Results & Data Results & Data Vital Signs (Past 12 Hours) Vital Signs Temp Pulse Pulse Resp BP Pulse Ox O2 Del Method 01/23/24 17:35 37.0 C 93 H 18 116/68 98 Room Air 01/23/24 15:27 91 H 01/23/24 14:44 36.4 C L 79 20 100/64 98 Room Air 01/23/24 11:27 36.5 C 89 18 97/63 L 99 Room Air 01/23/24 08:00 Room Air 01/23/24 07:40 36.4 C L 85 20 100/66 100 Room Air 01/23/24 07:08 88 Laboratory Results CBC and chemistry reviewed PG Care Time/CCT Total # of Minutes Spent Total Time Spent with Patient: Total time spent is greater than 50% in coordination of care (as documented) at patient's floor/unit and/or counseling patient: Coding Level of Care Code 19201 SUB INP/OBS CARE 3/50MIN Diagnoses Leukocytosis D72.829 Warm autoimmune hemolytic anemia D59.11 KRISSY (acute kidney injury) N17.9 Status post kidney transplant Z94.0 Hypomagnesemia E83.42 Atrial fibrillation I48.91 Benign essential hypertension I10
--- NOTE | 2024-01-24 03:44 | Electrocardiogram Report ---
Test Reason : Blood Pressure : / mmHG Vent. Rate : 120 BPM Atrial Rate : 000 BPM P-R Int : 000 ms QRS Dur : 148 ms QT Int : 350 ms P-R-T Axes : 000 -45 035 degrees QTc Int : 494 ms Sinus tachycardia Right bundle branch block Left anterior fascicular block Bifascicular block Minimal voltage criteria for LVH, may be normal variant ( R in aVL ) Abnormal ECG When compared with ECG of 21-JAN-2024 12:54, Premature atrial complexes are no longer Present Confirmed by Chauncey Dahl ([id number]) on 01/24/2024 3:44:06 AM Referred By: REFERRED SELF Confirmed By:Chauncey Dahl
[2024-01-24 06:32] LABS: Albumin Globulin Ratio 0.6 (0.9-2); Albumin Level 2.8 gm/dl (3.4-5.0); BUN Creatinine Ratio 35.7 (10-20); Bilirubin,Total 0.7 mg/dl (0.2-1.0); Creatinine Clr Calc Pharmacy 58.9 ml/min; Est GFR (Non-African American) 51.8 ml/min; Globulin 4.6 gm/dl (2.5-4.0); Magnesium 1.8 mg/dl (1.7-2.4); Potassium 4.8 mmol/L (3.5-5.1); Total Protein 7.4 gm/dl (6.0-8.3)
[2024-01-24 06:56] LABS: Hematocrit (blood only) 20.9 % (42.0-52.0); Immature Granulocytes # (auto) 0.08 K/uL (0.01-0.20); Immature Granulocytes % (auto) 0.7 %; Lymphocytes # (auto) 0.11 K/uL (1.20-3.40); Mean Corpuscular Hemoglobin 35.4 pg (25.0-34.0); Mean Corpuscular Hgb Conc 33.5 g/dL (32.0-36.0); Mean Corpuscular Volume 105.6 fL (80.0-100.0); Mean Platelet Volume 9.5 fL (9.4-12.4); Monocytes # (auto) 0.34 K/uL (0.11-0.59); Monocytes % (auto) 3.1 %; Neutrophils % (auto) 95.2 %; Platelet Count 240 K/uL (130-400); Polychromasia 1+; RDW Coefficient of Variation 13.6 % (11.5-14.5); RDW Standard Deviation 50.9 fL (36.4-46.3); Red Blood Count 1.98 M/uL (4.70-6.10); White Blood Count 10.83 K/ul (4.8-10.8)
[2024-01-24] MEDS ORDERED: VANCOMYCIN LEVEL ONE (07:30)
[2024-01-24] MEDS ORDERED: SODIUM CHLORIDE 0.9% 250 ML IV PRN (07:49)
[2024-01-24] MEDS: lisinopril 10 MG TAB PO SCH (09:24)
[2024-01-24] MEDS: cefTRIAXone SODIUM 2,000 MG/50 ML BAG IV SCH (10:32)
[2024-01-24] MEDS: SODIUM CHLORIDE 1 GM TABLET PO ONE (10:32)
--- NOTE | 2024-01-24 10:56 | Nephrology Progress Note ---
Date of Service January 24, 2024 Assessment & Plan (1) Status post kidney transplant: Plan: Continue tacrolimus and Cellcept per home Rx. Steroids per hematology recs. Allograft function stable. [place] trough pending. Electrolytes notable for hyponatremia. Medications appropriately dosed for kidney function. (2) Warm autoimmune hemolytic anemia: Plan: IVIG + methylprednisolone per hematology recs. (3) Symptomatic anemia: Plan: s/p 1 unit PRBC 5/6. Additional transfusion infusing this AM. (4) Benign essential hypertension: Plan: Euvolemic. BP acceptable. Continue metoprolol and lisinopril per home Rx. Admission and Anticipated Discharge Date Admission Date: January 21, 2024 Subjective No acute events overnight. Gumaro states that he feels reasonably well. Appetite is fair. Some mild nausea associated with oral iron. Some weakness persists. No fluid retention or edema. No fevers or chills. No melena or hematochezia. Review of Systems Review of Systems: All systems reviewed & are unremarkable except as noted in HPI & below Physical Exam Constitutional: well developed; no acute distress Eyes: no scleral abnormality and no corneal abnormality ENMT: Mouth: no oral mucosal abnormality and oral mucous membranes not dry Neck: normal visual inspection and trachea midline Respiratory: normal respiratory effort Auscultation: lungs clear to auscultation bilaterally Cardiovascular: Rate/Rhythm: regular rate Heart Sounds: normal S1 and normal S2 Extremities: + AV fistula; no edema Musculoskeletal: Extremities: no cyanosis and no clubbing Skin: normal turgor; no lesions Neurologic: Motor/Sensory: no tremor and no asterixis Psychiatric: Orientation: alert and oriented x 3 Results & Data Vital Signs (Past 12 Hours) Vital Signs Temp Pulse Pulse Resp BP BP Pulse Ox 01/24/24 10:19 36.3 C L 80 16 120/80 99 01/24/24 09:19 36.5 C 105 H 16 115/77 98 01/24/24 08:49 36.7 C 95 H 18 117/77 98 01/24/24 08:34 36.5 C 80 16 118/79 98 01/24/24 08:13 36.5 C 80 18 111/67 97 01/24/24 07:51 36.8 C 80 18 111/72 98 01/24/24 07:25 91 H 01/24/24 02:53 36.4 C L 84 18 117/70 97 01/23/24 23:34 01/23/24 23:33 O2 Del Method O2 Del Method 01/24/24 10:19 01/24/24 09:19 01/24/24 08:49 01/24/24 08:34 01/24/24 08:13 01/24/24 07:51 Room Air 01/24/24 07:25 01/24/24 02:53 Room Air 01/23/24 23:34 Room Air 01/23/24 23:33 Room Air Laboratory Results Laboratory Results - last 24 hr 01/21/24 01/21/24 01/21/24 14:30 14:30 14:30 WBC RBC Hgb Hct MCV MCH MCHC RDW Std Deviation RDW Coeff of Jaye Plt Count MPV Immature Gran % (Auto) Neut % (Auto) Lymph % (Auto) Ocean % (Auto) Eos % (Auto) Baso % (Auto) Neut # (Auto) Lymph # (Auto) Ocean # (Auto) Eos # (Auto) Baso # (Auto) Immature Gran # (Auto) Polychromasia Sodium Potassium Chloride Carbon Dioxide Anion Gap BUN Creatinine Est Cr Clr Drug Dosing Est GFR ( Amer) Est GFR (Non-Af Amer) BUN/Creatinine Ratio Glucose Estimat Average Glucose Estimated Ave Glu mmol/L Estimated Ave Glu mg/dL Hemoglobin A1c Calcium Magnesium Total Bilirubin AST ALT Alkaline Phosphatase Total Protein Albumin Globulin Albumin/Globulin Ratio Urine Osmolality Ur Random Sodium A. phagocytophilum DNA Blood Type A Positive Antibody Screen POSITIVE A Antibody Identification Auto Cold Agglutinin Auto Gil Agglutinin Anti-E Antibody ID Comment Cancelled Crossmatch See Detail 01/23/24 01/24/24 01/24/24 12:22 05:41 05:41 WBC 10.83 H RBC 1.98 L Hgb 7.0 L Hct 20.9 L* MCV 105.6 H MCH 35.4 H MCHC 33.5 RDW Std Deviation 50.9 H RDW Coeff of Jaye 13.6 Plt Count 240 MPV 9.5 Immature Gran % (Auto) 0.7 Neut % (Auto) 95.2 Lymph % (Auto) 1.0 Ocean % (Auto) 3.1 Eos % (Auto) 0.0 Baso % (Auto) 0.0 Neut # (Auto) 10.30 H Lymph # (Auto) 0.11 L Ocean # (Auto) 0.34 Eos # (Auto) 0.00 Baso # (Auto) 0.00 Immature Gran # (Auto) 0.08 Polychromasia 1+ Sodium 129 L Potassium 4.8 Chloride 105 Carbon Dioxide 18 L Anion Gap 6 BUN 51 H Creatinine 1.43 H Est Cr Clr Drug Dosing 58.9 Est GFR ( Amer) 60.0 Est GFR (Non-Af Amer) 51.8 BUN/Creatinine Ratio 35.7 H Glucose 157 H Estimat Average Glucose Cancelled Estimated Ave Glu mmol/L Pending Estimated Ave Glu mg/dL Pending Hemoglobin A1c Cancelled Pending Calcium 8.0 L Magnesium 1.8 Total Bilirubin 0.7 D AST 23 ALT 18 Alkaline Phosphatase 96 Total Protein 7.4 Albumin 2.8 L Globulin 4.6 H Albumin/Globulin Ratio 0.6 L Urine Osmolality 485 L Ur Random Sodium 15 A. phagocytophilum DNA Pending Blood Type Antibody Screen Antibody Identification Antibody ID Comment Crossmatch PG Care Time/CCT Total # of Minutes Spent Total Time Spent with Patient: Total time spent is greater than 50% in coordination of care (as documented) at patient's floor/unit and/or counseling patient: Coding Level of Care Code 03400 SUB INP/OBS CARE 3/50MIN Diagnoses Status post kidney transplant Z94.0 Warm autoimmune hemolytic anemia D59.11 Symptomatic anemia D64.9 Benign essential hypertension I10
--- NOTE | 2024-01-24 11:26 | Hospitalist Progress Note ---
Date of Service January 24, 2024 Assessment & Plan (1) Leukocytosis: Plan: -Presented to the ED today with approximately 3-4 days of progressive malaise, body aches, and poor oral intake -On admission leukocytosis of 17 with neutrophil predominance of 15 and procal of 1.44 --> source unclear, possible pinky finger - UTI with nitrates and trace leukocytes, UC with less than 1,000 colonies - BC no gowth 24 hours - CXR negative for acute findings - Does have redness of right 5th digit,warmth and asymetrical swelling --> ? source - xray ordered - no evidence of osteomylitis - Denies respiratory, GI, neurologic symptoms - did NOT receive Neupogen recently Recieved vancomycin and Cefepime --> clinically improving, will deescalate coverage to ceftriaxone starting 01/23 for pinky finger. No documented hx of MRSA. PT/OT - do not feel that he would be safe to go home with 01/23, will continue to monitor for need for rehab. Encouraged patient OOB for meals Leukocytosis improving - but now with increasing steroids would expect increase AM CBC and BMP (2) Warm autoimmune hemolytic anemia: Plan: -[facility] for Warm Autoimmune Hemolytic anemia - Dr. Gonsalez - Received 1u PRBCs 01/21 hematology consulted - Refractory warm AIHA - steroid taper: Solu-Medrol 1 g for next 3 days, followed by prednisone taper, 60 mg p.o. daily x 5 days, 40 mg p.o. x 5 days, 20 mg p.o. x 5 days, 10 mg p.o. daily x 5 days, then 5 mg p.o. daily long-term - IVIG 1g/kg x2 days - 01/23: Hemoglobin 7.0 transfuse an additional 1 unit PRBC -Total bili of 2.7 on admission, now downtrending -Patient is without scleral icterus or jaundice, has been stable LE dopplers ordered, no DVT - if develops hypoxia, low threshold for CTA recheck CBC this afternoon after blood to see if need to request more blood from blood bank a.m. CBC (3) KRISSY (acute kidney injury): Plan: -Cr today is 1.67, baseline is 1.1. meets criteria for KRISSY with 1.5 x his baseline Cr -Patient reports poor PO intake over the past week, is not on diuretics. Received 1L IVF - Renal US: normal right renal transplant, no significant stenosis or occlusion noted creatinine bumped to 1.43 today however patient is receiving a unit of blood so we will defer additional fluids at this time AM BMP (4) Status post kidney transplant: Plan: -S/P renal transplant in 2009 Nephrology consulted -Continue Tacrolimus, Cellcept, - Prednisone held given steroid taper as above - Tacrolimus level pending (5) Hypomagnesemia: Plan: Replaced IV and now WNL also with hyponatermia low urine sodium osm, normal serum osm --> suspect solute deficient. Diet liberalized - Na low today at 129, 1g Nacl given recheck AM, nephrology also following (6) Atrial fibrillation: Plan: -Hx of paroxysmal afib -Has been off anticoagulation since his admission for anemia in 2022 -Continue metoprolol Flipped to atrial flutter this admission - not a candidate to for anticoagulation - cardiology consulted, to see if any additional recommendations for rhythm control (7) Benign essential hypertension: Plan: -Stable Resume lisinopril as BP allows Plan Dispo: continued inpatient stay DVT proh: SCDs Admission and Anticipated Discharge Date Admission Date: January 21, 2024 Supervising Physician Co-Signing Physician Notes Attending Attestation - Chart reviewed, care plan d/w MASON Trejo. I agree w/ the swanson components of her documentation. Continue steroids for WAHA per heme/onc. Appreciate nephrology and heme/onc consultations. Arian Moy MD Subjective Patient resting in bed, has not been out of bed today. Feeling alittle better - no evidence of bleeding anywhere. Did have episode of emesis after iron pill. Denies abd pain. now aflutter - asymptomatic, denies CP or SOB Tele atiral flutter - rates 80-90s Physical Exam Physical Exam: General: NAD, VS as above Resp: normal respiratory effort, lungs clear to auscultation CV: RRR, no murmur, Abd: normal bowel sounds, non tender, no hepatosplenomegaly Extremities: Moves all extremities, no edema Neuro: A&O x3, Skin: intact, no rashes. Swelling with redness of right pinky finger tip, - improved since yesterday Results & Data Results & Data Vital Signs (Past 12 Hours) Vital Signs Temp Pulse Pulse Resp BP BP Pulse Ox 01/24/24 10:56 36.5 C 88 16 111/80 98 01/24/24 10:19 36.3 C L 80 16 120/80 99 01/24/24 09:19 36.5 C 105 H 16 115/77 98 01/24/24 08:49 36.7 C 95 H 18 117/77 98 01/24/24 08:34 36.5 C 80 16 118/79 98 01/24/24 08:13 36.5 C 80 18 111/67 97 01/24/24 07:51 36.8 C 80 18 111/72 98 01/24/24 07:25 91 H 01/24/24 02:53 36.4 C L 84 18 117/70 97 01/23/24 23:34 01/23/24 23:33 O2 Del Method O2 Del Method 01/24/24 10:56 01/24/24 10:19 01/24/24 09:19 01/24/24 08:49 01/24/24 08:34 01/24/24 08:13 01/24/24 07:51 Room Air 01/24/24 07:25 01/24/24 02:53 Room Air 01/23/24 23:34 Room Air 01/23/24 23:33 Room Air Laboratory Results Cbc and chemistry reviewed PG Care Time/CCT Total # of Minutes Spent Total Time Spent with Patient: Total time spent is greater than 50% in coordination of care (as documented) at patient's floor/unit and/or counseling patient: Coding Level of Care Code 17075 SUB INP/OBS CARE 3/50MIN Diagnoses Leukocytosis D72.829 Warm autoimmune hemolytic anemia D59.11 KRISSY (acute kidney injury) N17.9 Status post kidney transplant Z94.0 Hypomagnesemia E83.42 Atrial fibrillation I48.91 Benign essential hypertension I10
[2024-01-24 15:05] LABS: Hematocrit (blood only) 25.3 % (42.0-52.0); Hemoglobin 8.2 g/dl (14.0-18.0); Mean Corpuscular Hemoglobin 34.2 pg (25.0-34.0); Mean Corpuscular Hgb Conc 32.4 g/dL (32.0-36.0); Mean Corpuscular Volume 105.4 fL (80.0-100.0); Mean Platelet Volume 9.5 fL (9.4-12.4); Platelet Count 286 K/uL (130-400); RDW Coefficient of Variation 15.4 % (11.5-14.5); RDW Standard Deviation 57.1 fL (36.4-46.3); White Blood Count 12.05 K/ul (4.8-10.8)
[2024-01-24 15:21] LABS: Calcium 8.6 mg/dl (8.6-10.3); Creatinine Clr Calc Pharmacy 59.3 ml/min; Est GFR (African American) 60.5 ml/min; Est GFR (Non-African American) 52.2 ml/min; Potassium 4.4 mmol/L (3.5-5.1)
--- NOTE | 2024-01-24 17:16 | Cardiology Consultation ---
Date of Consultation January 24, 2024 Assessment & Plan (1) Atrial flutter: (2) Paroxysmal atrial fibrillation: (3) Benign essential hypertension: (4) Autoimmune hemolytic anemia: (5) Aneurysm of thoracic aorta: Plan ASSESSMENT/PLAN: 1. Atrial flutter: Has known history of atrial fibrillation. Difficult to recognize atrial flutter waves but noted on telemetry when heart rate decreases. Seems to be completely asymptomatic. Heart rate reasonably controlled. He is not anticoagulated therapy and not willing to resume anticoagulation therapy as he did not tolerate Eliquis in the past and he is concerned about anemia. Continue metoprolol succinate for rate control strategy. Discussed elevated stroke risk, especially with history of TIA, but he declines. If he is willing to consider anticoagulation in the future, would recommend that hematology is agreeable in the setting of his hemolytic anemia. No known bleeding as per our discussion today. Could also consider potential for Watchman device, if deemed a candidate and willing to use anticoagulation therapy for a brief period of time and then antiplatelet therapy. For now, he does not wish to partake in stroke risk reduction. Check echo. 2. Atrial fibrillation: Paroxysmal A-fib in the past. Has been seen by Dr. Otto of electrophysiology and can follow-up with him in the office. 3. Thoracic aortic aneurysm: Avoid strenuous lifting for which the Valsalva maneuver is required. Recommend annual surveillance. Continue beta-fely. Avoid fluoroquinolones. 4. Hypertension: Blood pressure well-controlled. Continue current regimen. 5. Autoimmune hemolytic anemia: As per hematology. 6. Disposition: Cardiology will sign off at this time. He can follow-up with Dr. Otto in the outpatient setting for continued conversation regarding stroke risk reduction and perhaps possibility of Watchman device if he remains reluctant to resume anticoagulation therapy given prior intolerance. Patient care communicated with primary hospitalist, Lois Trejo PA-C. Thank you for allowing me to participate in the care of your patient. Please call for any other questions or concerns. Sincerely, Rashaun Dahl M.D. History of Present Illness Reason for Consultation: Atrial flutter Requesting Physician: Lois Trejo PA-C Attending Physician: Arian Moy MD History of Present Illness Mr. Mandel is a pleasant 63-year-old gentleman with a history significant for atrial fibrillation (diagnosed 2022), thoracic aortic aneurysm, renal transplant (2009) warm autoimmune hemolytic anemia, CKD, sleep apnea (does not use CPAP) AAA, GERD, hypertension, TIA after dialysis in the past, left upper extremity AV fistula. He was seen by Dr. Otto in January 2023 for atrial fibrillation, while hospitalized. He was hospitalized on this occasion on 01/21/2024 with leukocytosis after presenting with malaise. He had decreased appetite and generalized bodyaches for 3 to 4 days. While here, he was noted to be in atrial flutter by hospitalist service. He is completely asymptomatic in that regard. He denies chest pain, shortness of breath, syncope, near syncope, palpitations, edema, or bleeding such as melena, hematochezia, or hematuria. In the past, he was on Eliquis and felt unwell on Eliquis and had it discontinued. He felt much better off of Eliquis and stated "I ain't ever going to go on that again." He follows with hematology for anemia but denies blood loss anemia. He describes having a TIA after dialysis in the past where he had memory issues transiently. One of his big concerns is chronic right hip pain. Surgery was canceled in the fall 2022 and due to hip pain, his exertion has been limited. Review of systems: As above. Review of systems otherwise negative/unremarkable. Family history: No known premature CAD. Social history: He denies smoking, alcohol, or drug abuse. Lives at home with his . Has 2 children. 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 He was unaccompanied. Allergies Allergy/AdvReac Type Severity Reaction Status Date / Time clopidogrel [From Plavix] Allergy Unknown Unknown Verified 01/21/24 16:09 Wyysesg-WFS-DyV Reductase AdvReac Intermediate myalgias Verified 01/21/24 16:09 Inhibitor [Unxghrr-Bnb-Rao Reductase Inhibitor] Home Medications Medication Instructions Recorded Confirmed Type mycophenolate mofetil 250 mg 500 mg (2 x 250 mg) PO BID #360 05/29/20 01/21/24 Rx capsule caps amoxicillin 500 mg capsule 2,000 mg PO DIRECTED PRN PRIOR 07/29/20 01/21/24 History TO DENTAL PROCEDURES multivitamin 1 tab PO QAM 08/02/21 01/21/24 History tacrolimus 1 mg capsule, 2 mg PO Q12 07/08/22 01/21/24 History immediate-release ferrous sulfate 325 mg (65 mg 325 mg PO BID #60 tabs 07/17/23 01/21/24 Rx iron) tablet levothyroxine 125 mcg tablet 125 mcg PO QAM 09/04/23 01/21/24 History lisinopril 10 mg tablet 10 mg PO QAM 09/04/23 01/21/24 History magnesium oxide 500 mg PO HS 09/04/23 01/21/24 History folic acid 1 mg tablet 1 mg PO BID #180 tabs 09/20/23 01/21/24 Rx metoprolol succinate 100 mg 100 mg PO HS #90 tabs 10/27/23 01/21/24 Rx tablet,extended release 24 hr pantoprazole 40 mg tablet,delayed 40 mg PO BID #180 tabs 12/06/23 01/21/24 Rx release calcium carbonate 500 mg PO QAM 01/21/24 01/21/24 History levofloxacin 500 mg tablet 500 mg PO HS 01/21/24 01/21/24 History olanzapine 2.5 mg tablet See Rx Instructions .Route .COMPLEX 01/21/24 01/21/24 History prednisone 5 mg tablet 5 mg PO QDB 01/21/24 01/21/24 History prochlorperazine maleate 10 mg 10 mg PO Q6 PRN Nausea And Vomiting 01/21/24 01/21/24 History tablet Patient History Medical History Benign essential hypertension On prednisone therapy Ground glass opacity present on imaging of lung Sleep apnea no device Thoracic ascending aortic aneurysm 4.9 cm on chest CTA 01/31/23 Hypertension controlled, stable per pt Limb alert care status left arm restriction History of blood transfusion 07/2023 Hx of herpetic maria Atrial fibrillation controlled w/ metoprolol Eliquis recently DC'ed during Nov hospital visit due to anemia issues, no pacer History of COVID-19 07/2020- covid pneumonia, hospitalized; resolved History of renal dialysis prior to kidney transplant; has dialysis fistula left arm History of CVA (cerebrovascular accident) 2008, mild memory changes Adrenal nodule [place] PCP considering adrenal protocol CT or MRI for characterization Symptomatic anemia Retroperitoneal mass lesion biopsy negative for malignancy 05/2022 per transplant record 03/17/23 Chronic kidney disease, stage 3a Anemia hospitalized at [facility] 07/2023, received blood transfusion 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 History of esophageal reflux controlled, stable per pt Hyperlipidemia Hypothyroidism Obesity Osteoporosis Surgical History History of esophagogastroduodenoscopy (EGD) Hx of cholecystectomy Hx of exploratory laparotomy Hx of kidney transplant 02/2010- [place], [place] History of colonoscopy Family History Grandmother (Maternal) Alzheimer disease Mother Depression Denies family history of Ovarian cancer Prostate cancer Diabetes Heart disease Myocardial infarction Breast cancer Lung cancer COPD (chronic obstructive pulmonary disease) Colorectal cancer Hypertension Stroke Social History Smoking Status: Never smoker Second Hand Exposure: No; Do You Dip or Chew Tobacco: No; Hx Alcohol Use: No Hx Substance Use: No 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: Croatian Communication Ability: Effective Visual Impairment: No Limitations Hearing Ability: Normal 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 Alert and oriented. HEENT: Anicteric sclera. Neck: Thick neck. No bruits. Normal carotid upstrokes bilaterally. Cardiac: No ventricular heave. Regular. Normal S1-S2. No murmurs, rubs, or gallops. Pulmonary: Clear to auscultation bilaterally without wheezes, rales, or rhonchi. Abdomen: Soft, nontender, nondistended, with normoactive bowel sounds. No bruits noted. Extremities: 2+ right radial pulse. Left upper extremity AV fistula with palpable thrill and audible bruit. 1+ bilateral dorsalis pedis pulses. No significant edema. No cyanosis. Psychiatric: Affect appears appropriate. Results & Data Vital Signs (Past 12 Hours) Vital Signs Temp Pulse Pulse Resp BP BP Pulse Ox 01/24/24 15:35 87 01/24/24 15:28 36.3 C L 82 20 122/81 98 01/24/24 10:56 36.5 C 88 16 111/80 98 01/24/24 10:19 36.3 C L 80 16 120/80 99 01/24/24 09:19 36.5 C 105 H 16 115/77 98 01/24/24 08:49 36.7 C 95 H 18 117/77 98 01/24/24 08:34 36.5 C 80 16 118/79 98 01/24/24 08:13 36.5 C 80 18 111/67 97 01/24/24 07:51 36.8 C 80 18 111/72 98 01/24/24 07:25 91 H O2 Del Method 01/24/24 15:35 01/24/24 15:28 Room Air 01/24/24 10:56 01/24/24 10:19 01/24/24 09:19 01/24/24 08:49 01/24/24 08:34 01/24/24 08:13 01/24/24 07:51 Room Air 01/24/24 07:25 Laboratory Results Laboratory Results - last 24 hr 01/21/24 01/21/24 01/21/24 14:30 14:30 14:30 WBC RBC Hgb Hct MCV MCH MCHC RDW Std Deviation RDW Coeff of Jaye Plt Count MPV Immature Gran % (Auto) Neut % (Auto) Lymph % (Auto) [place] % (Auto) Eos % (Auto) Baso % (Auto) Neut # (Auto) Lymph # (Auto) [place] # (Auto) Eos # (Auto) Baso # (Auto) Immature Gran # (Auto) Polychromasia Sodium Potassium Chloride Carbon Dioxide Anion Gap BUN Creatinine Est Cr Clr Drug Dosing Est GFR ( Amer) Est GFR (Non-Af Amer) BUN/Creatinine Ratio Glucose Estimat Average Glucose Estimated Ave Glu mmol/L Estimated Ave Glu mg/dL Hemoglobin A1c Calcium Magnesium Total Bilirubin AST ALT Alkaline Phosphatase Total Protein Albumin Globulin Albumin/Globulin Ratio Tacrolimus A. phagocytophilum DNA Blood Type A Positive Antibody Screen POSITIVE A Antibody Identification Auto Cold Agglutinin Auto Gil Agglutinin Anti-E Antibody ID Comment Cancelled Crossmatch See Detail 01/22/24 01/24/24 01/24/24 04:09 05:41 05:41 WBC 10.83 H RBC 1.98 L Hgb 7.0 L Hct 20.9 L* MCV 105.6 H MCH 35.4 H MCHC 33.5 RDW Std Deviation 50.9 H RDW Coeff of Jaye 13.6 Plt Count 240 MPV 9.5 Immature Gran % (Auto) 0.7 Neut % (Auto) 95.2 Lymph % (Auto) 1.0 [place] % (Auto) 3.1 Eos % (Auto) 0.0 Baso % (Auto) 0.0 Neut # (Auto) 10.30 H Lymph # (Auto) 0.11 L [place] # (Auto) 0.34 Eos # (Auto) 0.00 Baso # (Auto) 0.00 Immature Gran # (Auto) 0.08 Polychromasia 1+ Sodium 129 L Potassium 4.8 Chloride 105 Carbon Dioxide 18 L Anion Gap 6 BUN 51 H Creatinine 1.43 H Est Cr Clr Drug Dosing 58.9 Est GFR ( Amer) 60.0 Est GFR (Non-Af Amer) 51.8 BUN/Creatinine Ratio 35.7 H Glucose 157 H Estimat Average Glucose Cancelled Estimated Ave Glu mmol/L Pending Estimated Ave Glu mg/dL Pending Hemoglobin A1c Cancelled Pending Calcium 8.0 L Magnesium 1.8 Total Bilirubin 0.7 D AST 23 ALT 18 Alkaline Phosphatase 96 Total Protein 7.4 Albumin 2.8 L Globulin 4.6 H Albumin/Globulin Ratio 0.6 L Tacrolimus 5.6 A. phagocytophilum DNA Pending Blood Type Antibody Screen Antibody Identification Antibody ID Comment Crossmatch 01/24/24 14:27 WBC 12.05 H RBC 2.40 L Hgb 8.2 L Hct 25.3 L MCV 105.4 H MCH 34.2 H MCHC 32.4 RDW Std Deviation 57.1 H RDW Coeff of Jaye 15.4 H Plt Count 286 MPV 9.5 Immature Gran % (Auto) Neut % (Auto) Lymph % (Auto) [place] % (Auto) Eos % (Auto) Baso % (Auto) Neut # (Auto) Lymph # (Auto) [place] # (Auto) Eos # (Auto) Baso # (Auto) Immature Gran # (Auto) Polychromasia Sodium 129 L Potassium 4.4 Chloride 104 Carbon Dioxide 16 L Anion Gap 9 BUN 54 H Creatinine 1.42 H Est Cr Clr Drug Dosing 59.3 Est GFR ( Amer) 60.5 Est GFR (Non-Af Amer) 52.2 BUN/Creatinine Ratio 38.0 H Glucose 241 H Estimat Average Glucose Estimated Ave Glu mmol/L Estimated Ave Glu mg/dL Hemoglobin A1c Calcium 8.6 Magnesium Total Bilirubin AST ALT Alkaline Phosphatase Total Protein Albumin Globulin Albumin/Globulin Ratio Tacrolimus A. phagocytophilum DNA Blood Type Antibody Screen Antibody Identification Antibody ID Comment Crossmatch Diagnostic Findings Telemetry personally reviewed: Initially in sinus with PACs but approximately 2:10 AM on 01/22/2024, noted to be in atrial flutter. Atrial flutter is subtle and detectable when there is less frequent AV node conduction. Heart rate in general has been acceptable. ECG personally reviewed from 01/22/2024 at 8:24 AM: Appears consistent with sinus tachycardia but likely atrial flutter with 2-1 AV conduction at 120 bpm. RBBB. LAFB. ECG personally reviewed from 01/24/2024 10:07 AM: Possible atrial flutter with right bundle branch block and limb lead reversal. ECG 01/21/2024 1254: Sinus rhythm with frequent PACs 90 bpm. RBBB. LVH. Labs reviewed from 01/24/2024 notable for chronic and stable anemia, mildly abnormal renal function, normal potassium, hyponatremia, normal transaminase levels. Blood cultures from 01/21/2024 negative x 2. Chart reviewed including nephrology note and history and physical report. Previous Doppler 01/23/2024: No DVT reported. CT chest 01/19/2024: Nodule right apex. Ascending thoracic aorta 4.8 cm (stable). Right pelvic renal transplant. Numerous irregular lesions throughout the retroperitoneum and peritoneum decreased in size compared to 07/06/2023 study (appearance favors lymphoproliferative disorder). Medications Administered Current Inpatient Medications Acetaminophen (Acetaminophen 325 Mg Tab) 650 mg PO Q6H PRN PRN Reason: pain(1-4),headache,fever Stop: 02/20/24 15:59 Last Admin: 01/22/24 16:31 Dose: 650 mg Ferrous Sulfate (Ferrous Sulfate 325 Mg Tab) 325 mg PO BID ESTEFANI Stop: 02/20/24 20:59 Last Admin: 01/24/24 09:25 Dose: 325 mg Ceftriaxone Sodium (Rocephin) 2,000 mg in 50 mls @ 100 mls/hr IV Q24H ESTEFANI Stop: 01/31/24 08:59 Last Infusion: 01/24/24 11:11 Dose: Infused Sodium Chloride (Nss) 250 mls @ 15 mls/hr IV .[id number] PRN PRN Reason: For Transfusion Duration Stop: 01/24/24 17:49 Levothyroxine Sodium (Levothyroxine Sodium 125 Mcg Tablet) 125 mcg PO DAILYBB [facility] Stop: 02/21/24 06:29 Last Admin: 01/24/24 04:52 Dose: 125 mcg Lisinopril (Lisinopril 10 Mg Tab) 10 mg PO QAM [facility] Stop: 02/23/24 08:59 Last Admin: 01/24/24 09:24 Dose: 10 mg Metoprolol Succinate (Metoprolol Succ 50mg Ext Rel Tab) 100 mg PO HS [facility] Stop: 02/20/24 20:59 Last Admin: 01/23/24 21:09 Dose: 100 mg Mycophenolate Mofetil (Mycophenolate Mofetil 250 Mg Cap) 500 mg PO BID ESTEFANI Stop: 02/20/24 20:59 Last Admin: 01/24/24 09:24 Dose: 500 mg Ondansetron HCl (Ondansetron Inj 2 Mg/Ml 2 Ml Vial) 4 mg IV Q6H [facility] Stop: 02/20/24 22:59 Last Admin: 01/24/24 11:13 Dose: 4 mg Pantoprazole Sodium (Pantoprazole 40 Mg Tab) 40 mg PO BID [facility] Stop: 02/20/24 20:59 Last Admin: 01/24/24 09:24 Dose: 40 mg Prednisone (Prednisone 5 Mg Tab) 5 mg PO QDB ESTEFANI Stop: 02/21/24 07:29 Last Admin: 01/22/24 08:13 Dose: 5 mg Prednisone (Prednisone 20 Mg Tab) 60 mg PO QAM [facility]; Taper Stop: 02/14/24 08:59 Tacrolimus (Tacrolimus 1 Mg Cap) 2 mg PO Q12 ESTEFANI Stop: 02/20/24 20:59 Last Admin: 01/24/24 09:24 Dose: 2 mg PG Care Time/CCT Total # of Minutes Spent Total Time Spent with Patient: Total time spent is greater than 50% in coordination of care (as documented) at patient's floor/unit and/or counseling patient: Coding Level of Care Code 84334 INT INP/OBS CARE MIN Diagnoses Atrial flutter I48.92 Paroxysmal atrial fibrillation I48.0 Benign essential hypertension I10 Autoimmune hemolytic anemia D59.10 Aneurysm of thoracic aorta I71.20
[2024-01-24 17:21] LABS: Babesia microti DNA Not Detected (Not Detected)
--- NOTE | 2024-01-24 23:00 | Electrocardiogram Report ---
Test Reason : Blood Pressure : / mmHG Vent. Rate : 081 BPM Atrial Rate : 081 BPM P-R Int : 198 ms QRS Dur : 168 ms QT Int : 420 ms P-R-T Axes : 160 099 049 degrees QTc Int : 487 ms Suspect arm lead reversal, interpretation assumes no reversal Possible Atrial flutter Right bundle branch block Abnormal ECG When compared with ECG of 22-JAN-2024 08:24, Possible Limb lead reversal is now present Confirmed by Chauncey Dahl ([id number]) on 01/24/2024 10:59:57 PM Referred By: REFERRED SELF Confirmed By:Chauncey Dahl
[2024-01-25 06:56] LABS: Hematocrit (blood only) 24.2 % (42.0-52.0); Mean Corpuscular Hemoglobin 35.6 pg (25.0-34.0); Mean Corpuscular Hgb Conc 33.1 g/dL (32.0-36.0); Mean Corpuscular Volume 107.6 fL (80.0-100.0); Mean Platelet Volume 9.3 fL (9.4-12.4); Platelet Count 277 K/uL (130-400); RDW Coefficient of Variation 15.5 % (11.5-14.5); RDW Standard Deviation 58.3 fL (36.4-46.3); Red Blood Count 2.25 M/uL (4.70-6.10); White Blood Count 11.29 K/ul (4.8-10.8)
[2024-01-25 07:11] LABS: BUN Creatinine Ratio 40.6 (10-20); Calcium 8.1 mg/dl (8.6-10.3); Creatinine Clr Calc Pharmacy 60.7 ml/min; Est GFR (African American) 62.6 ml/min; Potassium 4.8 mmol/L (3.5-5.1)
[2024-01-25 07:19] LABS: Basophils # (auto) 0.01 K/uL (0.00-0.20); Basophils % (auto) 0.1 %; Immature Granulocytes # (auto) 0.08 K/uL (0.01-0.20); Immature Granulocytes % (auto) 0.7 %; Lymphocytes # (auto) 0.12 K/uL (1.20-3.40); Lymphocytes % (auto) 1.1 %; Monocytes # (auto) 0.33 K/uL (0.11-0.59); Monocytes % (auto) 2.9 %; Neutrophils # (auto) 10.75 K/uL (1.40-6.50); Neutrophils % (auto) 95.2 %; Polychromasia 1+
[2024-01-25] MEDS: predniSONE 20 MG TAB PO SCH (08:28)
--- NOTE | 2024-01-25 10:08 | Nephrology Progress Note ---
Date of Service January 25, 2024 Assessment & Plan (1) Status post kidney transplant: Plan: Continue tacrolimus and Cellcept per home Rx. Steroids per hematology recs. Allograft function stable. Tacro trough appropriate at 5.6. Electrolytes notable for hyponatremia. Medications appropriately dosed for kidney function. (2) Warm autoimmune hemolytic anemia: Plan: Hematology following. Completed IVIG. Remains on prednisone 60 mg daily. (3) Symptomatic anemia: Plan: PRBC transfusion support provided 01/21 + 01/23. (4) Benign essential hypertension: Plan: Euvolemic. BP acceptable. Continue metoprolol and lisinopril as Rx. Admission and Anticipated Discharge Date Admission Date: January 21, 2024 Subjective No acute events overnight. No chest pains or palpitations. Denies dyspnea. No fluid retention or edema. No fevers or chills. Gumaro feels reasonably well this AM. Review of Systems Review of Systems: All systems reviewed & are unremarkable except as noted in HPI & below Physical Exam Constitutional: well developed; no acute distress Eyes: no scleral abnormality and no corneal abnormality ENMT: Mouth: no oral mucosal abnormality and oral mucous membranes not dry Neck: normal visual inspection and trachea midline Respiratory: normal respiratory effort Auscultation: lungs clear to auscultation bilaterally Cardiovascular: Rate/Rhythm: regular rate Heart Sounds: normal S1 and normal S2 Extremities: + AV fistula; no edema Musculoskeletal: Extremities: no cyanosis and no clubbing Skin: normal turgor; no lesions Neurologic: Motor/Sensory: no tremor and no asterixis Psychiatric: Orientation: alert and oriented x 3 Results & Data Vital Signs (Past 12 Hours) Vital Signs Temp Pulse Resp BP Pulse Ox Pulse Ox O2 Del Method 01/25/24 08:42 36.3 C L 86 17 130/88 98 Room Air 01/25/24 03:40 36.6 C 81 18 118/81 97 Room Air 01/25/24 00:00 98 01/24/24 23:20 36.6 C 84 18 117/82 98 Room Air O2 Del Method 01/25/24 08:42 01/25/24 03:40 01/25/24 00:00 Room Air 01/24/24 23:20 Laboratory Results Laboratory Results - last 24 hr 01/21/24 01/21/24 01/22/24 14:30 14:44 04:09 WBC RBC Hgb Hct MCV MCH MCHC RDW Std Deviation RDW Coeff of Jaye Plt Count MPV Immature Gran % (Auto) Neut % (Auto) Lymph % (Auto) [place] % (Auto) Eos % (Auto) Baso % (Auto) Neut # (Auto) Lymph # (Auto) [place] # (Auto) Eos # (Auto) Baso # (Auto) Immature Gran # (Auto) Polychromasia Sodium Potassium Chloride Carbon Dioxide Anion Gap BUN Creatinine Est Cr Clr Drug Dosing Est GFR ( Amer) Est GFR (Non-Af Amer) BUN/Creatinine Ratio Glucose Calcium Tacrolimus 5.6 Babesia microti DNA PCR Not Detected Crossmatch See Detail 01/24/24 01/25/24 14:27 06:02 WBC 12.05 H 11.29 H RBC 2.40 L 2.25 L Hgb 8.2 L 8.0 L Hct 25.3 L 24.2 L MCV 105.4 H 107.6 H MCH 34.2 H 35.6 H MCHC 32.4 33.1 RDW Std Deviation 57.1 H 58.3 H RDW Coeff of Jaye 15.4 H 15.5 H Plt Count 286 277 MPV 9.5 9.3 L Immature Gran % (Auto) 0.7 Neut % (Auto) 95.2 Lymph % (Auto) 1.1 [place] % (Auto) 2.9 Eos % (Auto) 0.0 Baso % (Auto) 0.1 Neut # (Auto) 10.75 H Lymph # (Auto) 0.12 L [place] # (Auto) 0.33 Eos # (Auto) 0.00 Baso # (Auto) 0.01 Immature Gran # (Auto) 0.08 Polychromasia 1+ Sodium 129 L 135 L Potassium 4.4 4.8 Chloride 104 108 H Carbon Dioxide 16 L 20 L Anion Gap 9 7 BUN 54 H 56 H Creatinine 1.42 H 1.38 Est Cr Clr Drug Dosing 59.3 60.7 Est GFR ( Amer) 60.5 62.6 Est GFR (Non-Af Amer) 52.2 54.0 BUN/Creatinine Ratio 38.0 H 40.6 H Glucose 241 H 142 H Calcium 8.6 8.1 L Tacrolimus Babesia microti DNA PCR Crossmatch PG Care Time/CCT Total # of Minutes Spent Total Time Spent with Patient: Total time spent is greater than 50% in coordination of care (as documented) at patient's floor/unit and/or counseling patient: Coding Level of Care Code 27577 SUB INP/OBS CARE MIN Diagnoses Status post kidney transplant Z94.0 Warm autoimmune hemolytic anemia D59.11 Symptomatic anemia D64.9 Benign essential hypertension I10
--- NOTE | 2024-01-25 14:22 | XCELERA ---
[id number] \\[id number]
--- NOTE | 2024-01-25 15:01 | Discharge Summary ---
Discharge Summary Date of Service January 25, 2024 Notes For Next Care Provider Admitted with weakness and fatigue - found to have worsening anemia, krissy and 5th finger infection. Treated with 2units PRBCs, IV abx, IVIG and large steroid taper per heme/onc. Also flipped to aflutter during stay - not a good candidate for AC, can follow up with Dr. Otto to discuss watchman. Close follow up with Dr. Gonsalez HgbA1c pending - was sent out Medication Changes From Visit Steroid taper Keflex QID x 5 days Admission HPI Per Admitting Provider Gumaro Mandel is a 63-year-old male with a past medical history including kidney transplant on chronic Cellcept, Tacrolimus, and prednisone, Warm Autoimmune Hemolytic anemia, megaloblastic anemia, NSTEMI, atrial fibrillation, CKD stage IIIa, AAA, focal segmental glomerulosclerosis, GERD, hypertension and obesity who presented to the [facility] ED on 01/21/24 with complaints of generalized pain, dehydration, and malaise. He was noted to be tachycardic at 91 BPM on arrival but otherwise stable and afebrile. Labs were significant for a leukocytosis of 17 with neutrophile predominance of 15, cr of 1.67 (baseline is near 1.1), BUN of 39, sodium of 132, mag of 1.4, total bili of 2.7 with direct bili of 1.0, initial high sen trop of 44 --> 40 on 2 hour repeat, procal of 1.44, full respiratory biofire negative, and UA with trace protein, nitrite positive, 1+ bili, trace leukocyte esterase, and 6-10 hyaline casts. Chest xray was read as negative for acute finding. Prior to admission the patient was given a dose of ceftriaxone and 1gm IV mag sulfate. At the time of the exam the patient was sitting in bed in no acute distress. He states that he started to develop malaise, decreased appetite, and body aches approximately 3-4 days ago. Has had chills but denies fevers. When asked, denies chest pain, cough, SOB, abd pain, nausea, vomiting, diarrhea, dysuria, hematuria, melena, and recent trauma. He does note increased urinary frequency over this time. Denies photophobia, neck pain/stiffness, new back pain, rashes, or wounds/sores. Has been taking all medications as prescribed including i mmunosuppressants. Has been having ongoing chronic right hip pain. He was supposed to have the right hip replaced in May of last year, unfortunately he has been having ongoing issues with low Hgb and has not been stable for surgery. He has been following with hematology for his chronic anemia. He is a full code and his is his POA. Of note, review of the patient's recent medications shows he was prescribed a 7 day course of Levaquin by heme/onc as prophylaxis when he was noted to be Neutropenic on 01/12/24. Please refer to Dr. Reed's attestation for any changes to the treatment plan Principal Dx & Hospital Course #1 = Principal Diagnosis (1) Leukocytosis: -Presented to the ED today with approximately 3-4 days of progressive malaise, body aches, and poor oral intake -On admission leukocytosis of 17 with neutrophil predominance of 15 and procal of 1.44 --> Suspected source pinky finger - UC with less than 1,000 colonies - BC no growth 48 hours - CXR negative for acute findings - did NOT receive Neupogen recently Received vancomycin and Cefepime, deescelated to Ceftriaxone 01/23, discharged with continued course of Keflex Regarding pinky finger, was discussed with Derm and Ortho day of discharge - suspect gout flare. PT/OT - patient improved during his stay. Discharge home with today (2) Warm autoimmune hemolytic anemia: -[facility] for Warm Autoimmune Hemolytic anemia - Dr. Gonsalez - Received 1u PRBCs 01/21 and second units 01/23 hematology consulted - Refractory warm AIHA - steroid taper: Solu-Medrol 1 g for next 3 days, followed by prednisone taper, 60 mg p.o. daily x 5 days, 40 mg p.o. x 5 days, 20 mg p.o. x 5 days, 10 mg p.o. daily x 5 days, then 5 mg p.o. daily long-term - Received IVIG 1g/kg x2 days -Total bili of 2.7 on admission, continues to downtrend -Patient is without scleral icterus or jaundice, has been stable LE Doppler ordered, no DVT (3) KRISSY (acute kidney injury): -Cr today is 1.67, baseline is 1.1. meets criteria for KRISSY with 1.5 x his baseline Cr -Patient reports poor PO intake over the past week, is not on diuretics. Received 1L IVF - Renal US: normal right renal transplant, no significant stenosis or occlusion noted Bump in Creatine 01/23 but improved day of discharge (4) Status post kidney transplant: -S/P renal transplant in 2009 Nephrology consulted -Continue Tacrolimus, Cellcept, - Prednisone held given steroid taper as above - Tacrolimus level 5.6 (5) Hypomagnesemia: Replaced IV and now WNL also with hyponatermia low urine sodium osm, normal serum osm --> suspect solute deficient. Diet liberalized - hyponatremia improved day of discahrge (6) Atrial fibrillation: -Hx of paroxysmal afib -Has been off anticoagulation since his admission for anemia in 2022 -Continue metoprolol Flipped to atrial flutter this admission - not a candidate to for anticoagulation - cardiology consulted - no additional recommendations since rate controlled - can follow up with Dr. Otto to discuss watchman echo: EF 55-60%,severe biatrial dilation (7) Benign essential hypertension: Continue lisinopril Plan Dispo: discharge to home with today Discharge Exam General: NAD, VS as above Resp: normal respiratory effort, lungs clear to auscultation CV: RRR, no murmur, Abd: normal bowel sounds, non tender, no hepatosplenomegaly Extremities: Moves all extremities, no edema Neuro: A&O x3, Skin: intact, no rashes. Swelling with redness of right pinky finger tip, - im proved since yesterday - suspect blister will pop on its own Updated Medication List Medication Instructions Recorded Confirmed Type mycophenolate mofetil 250 mg 500 mg (2 x 250 mg) PO BID #360 05/29/20 01/21/24 Rx capsule caps amoxicillin 500 mg capsule 2,000 mg PO DIRECTED PRN PRIOR 07/29/20 01/21/24 History TO DENTAL PROCEDURES multivitamin 1 tab PO QAM 08/02/21 01/21/24 History tacrolimus 1 mg capsule, 2 mg PO Q12 07/08/22 01/21/24 History immediate-release ferrous sulfate 325 mg (65 mg 325 mg PO BID #60 tabs 07/17/23 01/21/24 Rx iron) tablet levothyroxine 125 mcg tablet 125 mcg PO QAM 09/04/23 01/21/24 History lisinopril 10 mg tablet 10 mg PO QAM 09/04/23 01/21/24 History magnesium oxide 500 mg PO HS 09/04/23 01/21/24 History folic acid 1 mg tablet 1 mg PO BID #180 tabs 09/20/23 01/21/24 Rx metoprolol succinate 100 mg 100 mg PO HS #90 tabs 10/27/23 01/21/24 Rx tablet,extended release 24 hr pantoprazole 40 mg tablet,delayed 40 mg PO BID #180 tabs 12/06/23 01/21/24 Rx release calcium carbonate 500 mg PO QAM 01/21/24 01/21/24 History olanzapine 2.5 mg tablet See Rx Instructions .Route .COMPLEX 01/21/24 01/21/24 History prednisone 5 mg tablet 5 mg PO QDB 01/21/24 01/21/24 History prochlorperazine maleate 10 mg 10 mg PO Q6 PRN Nausea And Vomiting 01/21/24 01/21/24 History tablet cephalexin 500 mg capsule 500 mg PO Q6H 5 days #20 caps 01/25/24 Rx prednisone 20 mg tablet See Taper PO QAM #29 tabs 01/25/24 Rx Hospital Stay Data Consultations 01/21/24 15:22 ED Decision to Admit Stat 01/21/24 15:54 Consult Nephrology Routine 01/21/24 16:44 Consult Hematology Routine 01/24/24 10:42 Consult Cardiology Routine Diagnostic Imagining Performed Chest X-Ray 01/21/24 13:06 XR chest 1V portable HISTORY: Sepsis COMPARISON: Chest 07/06/2023. Chest CT 01/19/2024. FINDINGS: No pneumothorax. No pleural effusions. The heart remains enlarged. There is a small hiatus hernia, unchanged. No new focal lung consolidations to suggest a pneumonia. No evidence for pulmonary edema. No acute fractures identified. IMPRESSION: No significant change compared to the prior study. No acute process. ACT 112: Negative or not required by law. Electronically signed by: Baldomero Wisdom M.D. 01/21/2024 1:55 PM Renal Ultrasound 01/21/24 16:31 US renal transplant w dop CLINICAL HISTORY: Hx renal transplant, acute kidney injury COMPARISON STUDY: Abdomen and pelvis CT 01/19/2024. FINDINGS: There are atrophic [place] kidneys again noted. There is a right lower quadrant renal transplant. This measures 11.4 cm. No hydronephrosis. Resistive indices of the renal transplant arcuate arteries are less than 0.8. Normal corticomedullary differentiation of the renal transplant. Peak systolic velocity within the right renal artery is 112 cm/s. The right renal vein is patent. Mild focal scarring within the lower pole the right renal transplant. IMPRESSION: 1. Normal right renal transplant. 2. No significant stenosis or occlusion within the right renal transplant artery. 3. Atrophic [place] kidneys again noted. ACT 112: Negative or not required by law. Electronically signed by: Baldomero Wisdom M.D. 01/21/2024 6:02 PM Finger X-Ray 01/22/24 16:17 XR finger(s) RT min 2V CLINICAL HISTORY: 5th finger, ? osteo TECHNIQUE: 3 views of the right fifth digit were obtained. Comparison: None available at the time of this dictation. FINDINGS: There is no evidence of erosive change to suggest osteomyelitis. Joint spaces are well-preserved. Soft tissue swelling is seen about the fifth digit. IMPRESSION: Soft tissue swelling without underlying erosive change to suggest osteomyelitis. ACT 112: Negative or not required by law. Electronically signed by: Chris Serra M.D. 01/22/2024 8:02 PM Venous Doppler Study 01/23/24 00:00 US venous doppler LE BI CLINICAL HISTORY: dvt, increased risk --> warm AIHA TECHNIQUE: Bilateral lower extremity real-time compression venous ultrasound with Color Doppler imaging. Utilizing real-time ultrasonic imaging multiple real time high-resolution ultrasonic images with compression and noncompression maneuvers of the deep venous system in addition to color doppler imaging were performed from the common femoral vein through the proximal calf veins. COMPARISON: Comparison is made to a venous Doppler ultrasound 05/12/2022 FINDINGS/IMPRESSION: Currently there is normal compressibility of the deep venous system from the common femoral vein through the proximal calf veins. Slow flow and mild subcutaneous edema is seen bilaterally. ACT 112: Negative or not required by law. Electronically signed by: Chris Serra M.D. 01/23/2024 9:34 AM Pending Results Patient Have Any Pending Studies at Discharge: Yes (hgb a1c ) Discharge Instructions Given to Patient (Per Discharging Provider) Mr. Mandel, You were hospitalized after having fatigue and weakness. This is was likely due to mild infection plus your anemia. You received IV steroids, IV antibiotics and 2 units of blood and your symptoms have improved. You will need close follow up with Dr. Gonsalez, his office should be contacting you. You will continue on the steroid taper as follows: Take the following doses in the morning - 60mg 01/25 - 01/28 - 40mg 01/29 - 02/02 - 20mg 02/03 - 02/07 - 10mg 02/08 - 02/12 You will also continue on the antibiotic keflex 500mg four times a day for 5 more days. Start this on 01/24 We reached out to the orthopedic team and they were concerned there was gout in the finger. Luckily the steroids that you were on will treat this. You should follow up with them. Their contact is listed above. You were seen by cardiology because your heart rhythm changed to atrial flutter. Given that you are not a good candidate for anticoagulation there was not much to be done since your heart rate is controlled. you can follow up with Dr. Otto to discuss the watchman device. Your echocardiogram showed normal heart function, with dilation of the upper chambers of the heart - likely from your atrial fibrilation. These findings do not climate change analyst at this time. You had an acute kidney injury which has resolved during your stay. We checked a hgbA1c - which is the average of your blood sugars over 90 days. Given your history this lab had to be sent out and is still pending. Your PCP can go over results with you. ------ Take your medications as instructed; do not skip a dose of your medicines. Make sure all of your doctors know every medicine you are taking (including [id number] medicines, vitamins, and supplements). Call your primary care provider before taking any new medicines (including over- the-counter medicines, vitamins, and supplements), because some of these may interact with your current medications, or may make your symptoms worse. Tell your primary care provider if you cannot afford your medications. Activity: You can do normal everyday activities as your body allows. Take rest breaks if you feel tired. Do not overexert. Stop activity if you have pain, shortness of breath or feel dizzy. Follow-up appointments: Make an appointment with your primary care physician within one week of discharge. A copy of this summary will be sent to them. Every time you see your primary care physician, or any other doctor, bring your medication list, and a list of questions. CONTACT YOUR PRIMARY CARE PROVIDER if you experience any of the following: Shortness of breath or difficulty breathing Fevers or chills Feeling tired with normal activity or experiencing dizziness or fainting Difficulty following your treatment plan, or difficulty taking medications CALL 911 OR GO TO THE EMERGENCY DEPARTMENT if you experience any of the following: Severe abdominal pain or nausea/vomiting Severe chest pain, or chest pain that radiates (moves) to your jaw or arm Sudden, severe shortness of breath or difficulty breathing Thank you for allowing us to participate in your care. Total Time Total Time Spent Total Time Spent (In Minutes): Time spend day of discharge 40 minutes including direct patient care, medication reconciliation, documentation, review of labs and images, and coordination of care. Coding Level of Care Code 50132 INP/OBS DISCH >30 MIN Diagnoses Leukocytosis D72.829 Warm autoimmune hemolytic anemia D59.11 KRISSY (acute kidney injury) N17.9 Status post kidney transplant Z94.0 Hypomagnesemia E83.42 Atrial fibrillation I48.91 Benign essential hypertension I10
[2024-01-26 09:02] LABS: EAG mmol/L DNR mmol/L; HA1C <4.2 (<5.7)
== END 2024-01-25 19:16 | disposition home or self-care (01) | DRG 809 ==
LOC: ED 12:39 → EDINP 15:19 → SUATTDRO 15:42 → 2W 17:47
DX: Z79.69 Long term (current) use of other immunomodulators and immunosuppressants; D59.11 Warm autoimmune hemolytic anemia; L03.011 Cellulitis of right finger; Z86.16 Personal history of COVID-19; E03.9 Hypothyroidism, unspecified; I71.20 Thoracic aortic aneurysm, without rupture, unspecified; I48.91 Unspecified atrial fibrillation; Z79.890 Hormone replacement therapy; N18.31 Chronic kidney disease, stage 3a; I12.9 Hypertensive chronic kidney disease with stage 1 through stage 4 chronic kidney disease, or unspecified chronic kidney disease; Z79.52 Long term (current) use of systemic steroids; E83.42 Hypomagnesemia; Z88.8 Allergy status to other drugs, medicaments and biological substances; Z94.0 Kidney transplant status; N39.0 Urinary tract infection, site not specified; Y83.0 Surgical operation with transplant of whole organ as the cause of abnormal reaction of the patient, or of later complication, without mention of misadventure at the time of the procedure; I25.2 Old myocardial infarction; Z86.73 Personal history of transient ischemic attack (TIA), and cerebral infarction without residual deficits; N17.9 Acute kidney failure, unspecified; W23.1XXA Caught, crushed, jammed, or pinched between stationary objects, initial encounter; E87.1 Hypo-osmolality and hyponatremia; E86.0 Dehydration; T86.19 Other complication of kidney transplant; I48.92 Unspecified atrial flutter; D53.1 Other megaloblastic anemias, not elsewhere classified; Y92.89 Other specified places as the place of occurrence of the external cause; S60.051A Contusion of right little finger without damage to nail, initial encounter

== ENCOUNTER 2024-05-24 10:00 | Inpatient (IN) ==
--- NOTE | 2024-05-09 11:24 | PAT Medication Instructions ---
Medication Instructions Date of Service May 09, 2024 Home Medications Medication Instructions Recorded mycophenolate mofetil 250 mg 500 mg (2 x 250 mg) PO BID #360 05/29/20 capsule caps folic acid 1 mg tablet 1 mg PO BID #180 tabs 09/20/23 pantoprazole 40 mg tablet,delayed 40 mg PO BID #180 tabs 12/06/23 release ferrous sulfate 325 mg (65 mg 325 mg PO BID #60 tabs 02/05/24 iron) tablet prednisone 5 mg tablet 5 mg PO DAILY #90 tabs 02/27/24 levothyroxine 125 mcg tablet 125 mcg PO QAM #90 tabs 03/04/24 lisinopril 10 mg tablet 10 mg PO QAM #90 tabs 04/08/24 metoprolol succinate 100 mg 100 mg PO HS #90 tabs 04/22/24 tablet,extended release 24 hr mycophenolate mofetil 250 mg capsule 500 mg (2 x 250 mg) PO BID amoxicillin 500 mg capsule 2,000 mg PO DIRECTED PRN multivitamin 1 tab PO QAM magnesium oxide 500 mg PO HS folic acid 1 mg tablet 1 mg PO BID pantoprazole 40 mg tablet,delayed release 40 mg PO BID calcium carbonate 500 mg PO QAM prochlorperazine maleate 10 mg tablet 10 mg PO Q6 PRN ferrous sulfate 325 mg (65 mg iron) tablet 325 mg PO BID prednisone 5 mg tablet 5 mg PO DAILY levothyroxine 125 mcg tablet 125 mcg PO QAM lisinopril 10 mg tablet 10 mg PO QAM tacrolimus 1 mg capsule, immediate-release 1 mg PO BID metoprolol succinate 100 mg tablet,extended release 24 hr 100 mg PO HS acyclovir 400 mg tablet 400 mg PO BID Continue as directed amoxicillin 500 mg capsule 2,000 mg PO DIRECTED PRN(if needed) prednisone 5 mg tablet 5 mg PO DAILY ASK your prescriber and surgeon mycophenolate mofetil 250 mg capsule 500 mg (2 x 250 mg) PO BID tacrolimus 1 mg capsule, immediate-release 1 mg PO BID DO NOT take the morning of surgery multivitamin 1 tab PO QAM folic acid 1 mg tablet 1 mg PO BID calcium carbonate 500 mg PO QAM ferrous sulfate 325 mg (65 mg iron) tablet 325 mg PO BID lisinopril 10 mg tablet 10 mg PO QAM Take morning of surgery With a small sip of water, OTHERWISE NOTHING TO EAT OR DRINK AFTER MIDNIGHT: pantoprazole 40 mg tablet,delayed release 40 mg PO BID prochlorperazine maleate 10 mg tablet 10 mg PO Q6 PRN(if needed) levothyroxine 125 mcg tablet 125 mcg PO QAM acyclovir 400 mg tablet 400 mg PO BID Take evening before surgery magnesium oxide 500 mg PO HS folic acid 1 mg tablet 1 mg PO BID pantoprazole 40 mg tablet,delayed release 40 mg PO BID prochlorperazine maleate 10 mg tablet 10 mg PO Q6 PRN(if needed) ferrous sulfate 325 mg (65 mg iron) tablet 325 mg PO BID metoprolol succinate 100 mg tablet,extended release 24 hr 100 mg PO HS acyclovir 400 mg tablet 400 mg PO BID Other Notes If you have any questions please call us at [phone] or [phone] or [phone] or [phone]
--- NOTE | 2024-05-16 09:00 | Anesthesiology Consultation ---
Date of Service May 16, 2024 Assessment & Plan (1) Encounter for pre-operative examination: - awaiting confirmed EKG. - Case discussed in detail with Dr. Bunch who advised patient will need vascular surgery clearance regarding aneurysm if possible, cardiology clearance with inquiry if patient needs a stress test and if is cleared overall from cardiac standpoint, hematology clearance and medical clearance. Patient made aware, he expressed frustration but verbalized understanding. He stated would prefer [facility] vascular surgery. I advised we will keep him updated. Workload notes sent to [place] [facility], hematology and PCP: awaiting responses. Patient reported having an upcoming appointment with [place] [facility] 05/23/24. [facility] vascular surgery advised that there is not availability until 06/11/24 and patient was very upset. Case discussed in detail with Dr. Bunch who advised that if cardiology or PCP is comfortable commenting on his aneurysm prior to surgery he will not need to see vascular surgery. Patient confirmed offered [place] [facility] 05/22/24 office per PAT front office secretary. - abnormal type and screen: patient will need to come to [facility] Monday05/22/24 before 3 pm per Baron with blood bank. Patient made aware to present to [facility] 05/22/24 before 3 pm for blood bank testing and he plans to have hematology needed labs at the same time. - left arm restriction. - patient on daily prednisone. - Outpatient joint assessment: Patient is currently scheduled for inpatient pathway. If re-evaluated and patient/surgeon requests outpatient pathway, patient is not candidate for outpatient joint program from anesthesia standpoint. Chart Review Chart Review: Pending: Refer to Additional Notes / Consult section and Patient seen in Pre Admission Testing Teaching & Discussion Pre-Anesthesia Teaching/Discussion Notes: Instructed NPO after midnight before surgery, except medications with 15 cc of water. Medication instructions provided according to the PAT guidelines. History Surgery Operation Date: 05/24/24 10:40 Proposed Procedures p Right Total Hip Arthroplasty - Thompson Morel MD Height/Weight Height: 5 ft 7 in Weight: 100.1 kg Allergies Allergy/AdvReac Type Severity Reaction Status Date / Time clopidogrel [From Plavix] Allergy Unknown Unknown Verified 05/16/24 11:50 Fyzsjwc-AIL-AjD Reductase AdvReac Intermediate myalgias Verified 05/16/24 11:50 Inhibitor [Qiebsbw-Pyj-Ffe Reductase Inhibitor] Medications Home Medications Medication Instructions Recorded Confirmed Last Taken mycophenolate mofetil 250 mg 500 mg (2 x 250 mg) PO BID #360 05/29/20 05/16/24 01/21/24 capsule caps am dose amoxicillin 500 mg capsule 2,000 mg PO DIRECTED PRN PRIOR 07/29/20 05/16/24 Unknown TO DENTAL PROCEDURES multivitamin 1 tab PO QAM 08/02/21 05/16/24 01/21/24 magnesium oxide 500 mg PO HS 09/04/23 05/16/24 01/20/24 folic acid 1 mg tablet 1 mg PO BID #180 tabs 09/20/23 05/16/24 01/21/24 am dose pantoprazole 40 mg tablet,delayed 40 mg PO BID #180 tabs 12/06/23 05/16/24 01/21/24 release am dose calcium carbonate 500 mg PO QAM 01/21/24 05/16/24 01/21/24 prochlorperazine maleate 10 mg 10 mg PO Q6 PRN Nausea And Vomiting 01/21/24 05/16/24 Unknown tablet ferrous sulfate 325 mg (65 mg 325 mg PO BID #60 tabs 02/05/24 05/16/24 Unknown iron) tablet prednisone 5 mg tablet 5 mg PO DAILY #90 tabs 02/27/24 05/16/24 Unknown levothyroxine 125 mcg tablet 125 mcg PO QAM #90 tabs 03/04/24 05/16/24 Unknown tacrolimus 1 mg capsule, 3 mg PO DAILY 04/16/24 05/16/24 Unknown immediate-release metoprolol succinate 100 mg 100 mg PO HS #90 tabs 04/22/24 05/16/24 Unknown tablet,extended release 24 hr acyclovir 400 mg tablet 400 mg PO BID 05/07/24 05/16/24 Unknown Past Medical History Medical History Abdominal aortic aneurysm 4.9 cm on 01/2023 chest CTA Adrenal nodule monitored by PCP Arthritis Atrial fibrillation controlled w/ metoprolol, no cardio Atrial flutter unaware 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 Rosales's esophagus with esophagitis CKD (chronic kidney disease) 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 History of blood transfusion 01/2024 History of colon polyps History of COVID-19 07/2020- covid pneumonia, hospitalized; resolved History of CVA (cerebrovascular accident) 2008, mild memory changes History of non-ST elevation myocardial infarction (NSTEMI) entered into chart 01/2023 History of renal dialysis prior to kidney transplant; has dialysis fistula left arm Hx of esophageal reflux controlled, stable per pt Hx of herpetic maria Hyperlipidemia Hypertension controlled, stable per pt Hypothyroidism Limb alert care status left arm restriction On prednisone therapy Osteoporosis Pneumonia HX Retroperitoneal mass lesion biopsy negative for malignancy 05/2022 per transplant record 03/17/23 Sleep apnea no device Thoracic ascending aortic aneurysm 4.[address] 01/19/24 Warm autoimmune hemolytic anemia Patient denies h/o seizures, heart failure, DM, or blood clots/DVTs. Exercise / Class Metabolic Activity III < 4 Walking/Shop/Light housework (rolling walker to aid with ambulation, denies chest discomfort or shortness of breath with usual activities) Past Family History Family History Grandmother (Maternal) Alzheimer disease Mother Depression Denies family history of Ovarian cancer Prostate cancer Diabetes Heart disease Myocardial infarction Breast cancer Lung cancer COPD (chronic obstructive pulmonary disease) Colorectal cancer Hypertension Stroke Past Surgical History Surgical History History of colonoscopy History of esophagogastroduodenoscopy (EGD) Hx of cholecystectomy Hx of exploratory laparotomy Hx of kidney transplant 02/2010- [place] Past Anesthesia History No Hx of Anesthesia Complications and No Family Hx of Anesthesia Complications History of PONV No Hx of PONV and No Hx of Motion Sickness Social History Smoking Status: Never smoker Do You Dip or Chew Tobacco: No Hx Alcohol Use: No Alcohol type: beer alcohol intake frequency: a few times a month Hx Substance Use: No substance use type: does not use Review of Systems Patient denies chest pain, shortness of breath, dyspnea on exertion, fever, chills, cough, wheezing, or palpitations. Physical Exam Vital Signs Vitals BP 141/85 P 87 TEMP 98.0 SP02 95% on RA RESP 17 Physical Patient resting comfortably in chair in no acute distress, alert and oriented, responding appropriately throughout visit Full cervical extension range of motion without pain TMD < 3 finger breadths Mallampati Score 2 Dentition: intact, denies chipped or loose teeth, caps/crowns, implants or bridges Lungs: normal respiratory effort. Good air movement, clear throughout to auscultation, no adventitious breath sounds Cardiac: regular rate and rhythm, no murmurs noted Carotid arteries: negative bruit bilat Lab Results Anesthesia Preop Results Results Anesthesia Widget: WBC 6.66 K/ul (4.8-10.8) 05/08/24 Hgb 11.2 g/dl (14.0-18.0) L 05/08/24 Hct 30.9 % (42.0-52.0) L 05/08/24 Plt 208 K/uL (130-400) 05/08/24 Na 139 mmol/L (136-145) 05/08/24 K 4.0 mmol/L (3.5-5.1) 05/08/24 Cl 103 mmol/L (98-107) 05/08/24 CO2 27 mmol/L (21-32) 05/08/24 BUN 24 mg/dl (6-23) H 05/08/24 Creat 1.09 mg/dl (0.6-1.4) 05/08/24 Glucose Level 77 mg/dl (70-99(Fasting)) 05/08/24 PT 11.1 Seconds (9.0-12.0) 05/16/24 PTT 26 Seconds (21-31) 05/16/24 INR 1.0 (0.9-1.1) 05/16/24 TSH 1.071 uIu/ml (0.300-4.500) 04/24/24 Urine Color Yellow 04/15/24 Urine Appearance Clear (Clear) 04/15/24 Urine pH 5.5 (4.5-7.5) 04/15/24 Urine Specific [place] 1.013 (1.000-1.030) 04/15/24 Urine Protein Negative (Negative) 04/15/24 Urine Glucose (UA) Negative (Negative) 04/15/24 Urine Ketones Negative (Negative) 04/15/24 Urine Blood Negative (Negative) 04/15/24 Urine Nitrite Negative (Negative) 04/15/24 Urine Bilirubin Negative (Negative) 04/15/24 Urine Urobilinogen Negative (Negative) 04/15/24 Urine Leukocyte Esterase Negative (Negative) 04/15/24 Blood Type A Positive 05/16/24 Antibody Screen POSITIVE A 05/16/24 Testing Chest X-Ray Date: 01/21/24 *1view* No significant change compared to the prior study. No acute process. Echocardiogram Date: 01/25/24 EF 55-60% No LV regional wall motion abnormalities Severe cLVH Severe biatrial dilation Mild aortic regurgitation Mild mitral regurgitation Mild tricuspid regurgitation Mildly dilated aortic root 4.4 cm Normal estimated RVSP Indeterminate diastolic function Other Testing Chest, abdomen and pelvis 01/19/24 Adrenal glands: Unremarkable. 1. A 10 mm groundglass nodule at the right apex has not appreciably changed. A small adenomatous lesion is not excluded. Continued attention at follow-up is recommended. 2. No new or enlarging pulmonary lesion is seen. 3. Cardiomegaly. 4. There is no airspace consolidation typical for pneumonia or pleural effusion. 5. Splenomegaly is similar to previous. 6. Numerous irregular lesions scattered throughout the retroperitoneum and peritoneum have decreased in size as compared to the 07/06/2023 examination. The appearance favors a lymphoproliferative disorder. Correlate with the oncological history. 7. No progressive lesions are identified. 8. Moderate hiatal hernia. 9. Colonic diverticulosis without CT evidence of acute diverticulitis. 10. A right pelvic renal transplant is again noted. There is no hydronephrosis. 11. Aneurysmal dilatation of the ascending thoracic aorta is unchanged. This measures up to 4.8 cm. 12. Additional findings as above. Chest CTA 01/31/23 1. No pulmonary embolism. 2. Aneurysmal ascending thoracic aorta measuring up to 4.9 cm. No dissection. 3. Bilateral lower lobe airspace opacities suggestive of pneumonia. 4. Small hiatal hernia. 5. Severe coronary artery calcifications. 6. Left adrenal nodule with irregular borders measuring 2.7 x 2.5 cm only partially imaged on this study. Consider adrenal protocol CT or MRI for characterization.
[~2024-05-24 10:00] MED LIST: ROPIVACAINE 0.5% 5 MG/ML 30 ML VIAL ONE
[2024-05-24] MEDS: FAMOTIDINE 20 MG TAB PO SCH (10:43)
[2024-05-24] MEDS: CeleBREX 200 MG CAP PO SCH (10:43)
[2024-05-24] MEDS: LR 500ML BOLUS, THEN 15ML/HR IV SCH (10:43)
[2024-05-24] MEDS: ACETAMINOPHEN 500 MG TAB PO SCH ×2 (10:43→23:36)
[2024-05-24] MEDS: METOCLOPRAMIDE HCL 10 MG TABLET PO SCH (10:43)
[2024-05-24] MEDS: LR 60ML/HR IV SCH (10:44)
--- NOTE | 2024-05-24 11:05 | History & Physical Bridge Note ---
Date of Service May 24, 2024 History & Physical Bridge Note I have examined the patient, reviewed the History & Physical and in the interval since the performance of the History & Physical I have noted the following changes of clinical significance: no changes noted
[2024-05-24] MEDS ORDERED: MIDAZOLAM HCL 1 MG/ML 2ML VIAL ONE (12:10)
[2024-05-24] MEDS ORDERED: MoRPHine SULFATE PF 1 MG/ML 10 ML AMP/VIAL ONE (12:11)
[2024-05-24] MEDS ORDERED: ePHEDrine sulfate 50 MG/ML AMP IV PRN (12:29)
[2024-05-24] MEDS ORDERED: PROMETHAZINE HCL 6.25 MG in SODIUM CHLORIDE 0.9% 50 ML IV PRN (12:29)
[2024-05-24] MEDS ORDERED: ATROPINE SULFATE 0.1 MG/ML 10ML SYR IV PRN (12:29)
[2024-05-24] MEDS ORDERED: ONDANSETRON INJ 2 MG/ML 2 ML VIAL IV PRN ×2 (12:29→17:17)
[2024-05-24] MEDS: TRANEXAMIC ACID 1,000 MG **IV Pre-op IV SCH (12:51)
[2024-05-24] MEDS ORDERED: PROPOFOL IV EMULSION 10 MG/ML 20 ML VIAL IV ONE (13:03)
[2024-05-24] MEDS: ceFAZolin 2000MG 2,000 MG/15 ML SYR IV SCH ×2 (13:16→21:44)
[2024-05-24] MEDS ORDERED: KETAMINE HCL 10MG/ML SYR ONE (13:24)
[2024-05-24] MEDS ORDERED: ONDANSETRON INJ 2 MG/ML 2 ML VIAL ONE (13:44)
[2024-05-24] MEDS ORDERED: PHENYLEPHRINE HCL 10 MG/ML VIAL ONE (13:52)
[2024-05-24] MEDS ORDERED: ePHEDrine sulfate 50 MG/5 ML SYR ONE (13:52)
[2024-05-24] MEDS: VANCOMYCIN HCL 1000MG/20ML VIAL ONE (13:59)
[2024-05-24] MEDS: BUPIVACAINE/EPINEPHRINE 0.5% MPF 1:200,000 30 ML VIAL ONE (13:59)
[2024-05-24] MEDS ORDERED: TRANEXAMIC ACID / 0.7% NACL 1000MG/100ML BAG IV ONE ×2 (14:12→14:45)
[2024-05-24] MEDS: TRANEXAMIC ACID 100 MG/ML 10 ML VIAL IV ONE (14:38)
[2024-05-24] MEDS: HYDROmorphone INJ 1 MG/ML SYRINGE IV PRN (15:27)
--- NOTE | 2024-05-24 15:31 | Operative Report ---
PG Post Operative Report Pre & Post Diagnosis Operation Date: 05/24/24 12:10 Pre-Op Diagnosis: Right Hip Degenerative Joint Disease Post-Op Diagnosis: Right Hip Degenerative Joint Disease I identified the patient and participated in the time-out.: Yes Procedure Operation Date: 05/24/24 12:10 Actual Procedures p Right Total Hip Arthroplasty, Cemented(Right) - Thompson Morel MD Surgeon Thompson Morel MD Manager Integrated Dionte Mcclellan PA-C Estimated Blood Loss 200 Findings Consistent with Post-Op Diagnosis Operative findings were advanced right hip DJD. He had complete flattening of the femoral head. It a very dysplastic enlarged acetabulum. Moderate-sized joint effusion. Severe external rotation contracture. Specimens None Indications The patient is a 63-year-old gentleman with multiple medical comorbidities status post renal transplant whose had a several year history of markedly progressive hip pain discomfort and. X-rays show collapse of the femoral head likely due to a vast necrosis. He failed all conservative measures. He is actually scheduled for surgery in the past but canceled due to severe anemia. This has been worked up and managed by the hematology team. He has not been cleared for surgery and elect proceed with total hip arthroplasty. Description of Procedure Operative implants consist of: 1. Biomet G7 size 58 mm acetabular shell. 2. [place] hole tetryl screen operator. 3. 6.5 cancellous acetabular screws x 2. 4. Highly cross-linked polyethylene liner with a 58 mm outer diameter and a 40 mm inner diameter. 5. DePuy [place] size 4 standard offset femoral stem. 6. +1.5/40 mm metal articular ball. 7. Large cement restrictor. 8. Distal cement centralizer. The patient was taken the op room, identified, placed on the operative table in the supine position. All contact areas were appropriately padded. IV antibiotics tried by anesthesia team. A spinal anesthetic been implemented holding area. The patient was then placed in the left lateral decubitus position. An axillary roll was placed. [place]berg hip positioner was used for positioning. The right hip and leg were then prepped and draped in usual sterile fashion. A posterolateral approach to the right hip was then performed to a curvilinear incision centered over the greater trochanter. Sharp dissection was carried through subcutaneous tissue down to level the IT band gluteal fascia. The IT band gluteal fascia was sized longitudinally in line with skin incision. The underlying greater bursa was excised. The piriformis and external rotators along with the posterior hip joint capsule were then released from the posterior aspect the hip as a single layer. Great care was taken throughout the procedure protect the sciatic nerve at all times. The hip was internally rotated and dislocated. A femoral neck osteotomy cut was made with a Final Cut about 5 mm above the lesser trochanter. Femoral head was removed and sent for pathology. There is quite a bit of bone around here which we had excised as well as part of the femoral neck. The femur was then retracted anteriorly. Attention drawn the acetabulum. The acetabular labrum was excised. Was a lot of scar tissue around the acetabulum which I had to remove to adequately mobilize the femur. Reaming of the acetabular was then performed again with a size 51 and progressing up to a 57. I reamed a little with a 58 reamer and then placed a 58 mm Biomet G7 acetabular shell in about 40 degrees lateral opening and 20 degrees of anteversion. It was fixed with two 6.5 screws. A trial liner was placed. Attention drawn the femur. The proximal femur was entered with cookie-cutter followed by canal finder and lateralizing reamer. I then broached beginning with size 1 progressing up to 4. We got decent fitted to 4. We trialed the hip and the +5 articular ball was stable but just too tight with too much of a flexion contracture. We elect to place a 1.5 articular ball. We elect to place his implants. Nupathe all trial implants were removed. An apex hole tetryl screen operator was placed. Highly cross-linked polyethylene liner was placed. A large cement restrictor was placed down the femoral canal. The canal was irrigated and cleaned. A double batch [place] G cement was mixed with an additional gram of vancomycin and then injected in the canal. A size 4 standard offset [place] cemented stem was then placed. Once the cement hardened I trialed the hip again and the +5 articular ball was just too tight. We elect to place a 1.5/40 mm metal articular ball due to the chrome- cobalt stem. The hip was located and once again found to be stable. Attention drawn toward closing. Wound was irrigated with copious muscle pulsatile lavage solution. I did inject locally with 60 cc of absent Marcaine with epinephrine. The posterior capsule and external rotators were repaired through drill holes in the posterior trochanter with #2 Tycron suture. The IT band gluteal fascia then closed in 1 PDS suture running fashion. Subcutaneous tissues then closed with 2 layers the deep layer #1 Vicryl suture and subcutaneous tissue with 2 Dexon suture in a buried interrupted fashion. Skin was closed with skin wiley. Leg was then cleaned and dried and a Prevena VAC dressing was applied. The patient was then transferred to the recovery room in stable condition. The patient tolerated the procedure well and there were no complications. Dionte Mcclellan, my physician pharmacist assistant, was present for the entire procedure. His assistance was essential and required for appropriate patient positioning, prepping and draping, surgical exposure, performing the technical details of the operation, placement the implants, closure of the wound, and placement of the sterile bandage. I attest to the content of the Intraoperative Record and any orders documented therein. Any exceptions are noted below.
--- NOTE | 2024-05-24 16:14 | XRay Report ---
XR hip 1V RT w pelvis HISTORY: 63 years-old Male IN PACU - Post Surgical COMPARISON: Hip radiographs 05/02/2024 TECHNIQUE: AP view the pelvis with crosstable lateral view of the right hip FINDINGS: Right hip arthroplasty with lateral skin wiley, expected postoperative soft tissue swelling with de ep tissue air. Amym-ae-cezwocju left hip osteoarthritis. Arterial calcifications. No acute fracture o r dislocation. IMPRESSION: Right hip arthroplasty with expected postoperative changes. ACT 112: Negative or not required by law. The above report was generated using voice recognition software. It may contain grammatical, syntax o r spelling errors. Electronically signed by: Darion Garcia M.D. 05/24/2024 4:12 PM
--- NOTE | 2024-05-24 16:21 | Anesthesiology Progress Note ---
Date of Service May 24, 2024 Anesthesia Post Procedure Vital Signs Vital Signs: Temp Pulse Pulse Resp BP Pulse Ox O2 Del Method 05/24/24 16:20 74 14 111/77 95 Nasal Cannula 05/24/24 16:10 79 18 116/90 98 Nasal Cannula 05/24/24 16:00 82 14 103/79 97 Nasal Cannula 05/24/24 15:50 73 16 115/81 100 Nasal Cannula 05/24/24 15:40 81 15 105/74 96 Nasal Cannula 05/24/24 15:30 94 H 21 113/83 98 Nasal Cannula 05/24/24 15:20 92 H 22 114/75 95 Oxymask 05/24/24 15:10 36.1 C L 99 H 16 101/83 98 Oxymask 05/24/24 10:47 36.8 C 87 20 122/94 94 Room Air O2 Flow Rate 05/24/24 16:20 2 05/24/24 16:10 2 05/24/24 16:00 2 05/24/24 15:50 4 05/24/24 15:40 4 05/24/24 15:30 4 05/24/24 15:20 15 05/24/24 15:10 15 05/24/24 10:47 Pain Intensity Right Hip: Pain Intensity: 4 Transfer of Care Handoff Completed per policy Notes Mental Status: alert / awake / arousable and participated in evaluation Nausea / Vomiting: adequately controlled Pain: adequately controlled Airway Patency, RR, SpO2: stable & adequate BP & HR: stable & adequate Hydration State: stable & adequate Neuraxial Anesthesia: was administered and sensory block is resolving Anesthetic Complications: no major complications apparent and Pt Satisfied with anesthetic care
[2024-05-24] MEDS ORDERED: NO NSAIDS SCH (17:17)
[2024-05-24] MEDS ORDERED: METOCLOPRAMIDE HCL INJ 5 MG/ML 2 ML VIAL IV PRN (17:17)
[2024-05-24] MEDS ORDERED: bisacodyL 10 MG SUPP PR PRN (17:17)
[2024-05-24] MEDS ORDERED: PROCHLORPERAZINE MALEATE 10 MG TAB PO PRN (17:17)
[2024-05-24] MEDS ORDERED: traMADol HCL 50 MG TABLET PO PRN (17:17)
[2024-05-24] MEDS ORDERED: HYDROmorphone INJ 0.5 MG/0.5 ML SYR IV PRN (17:17)
[2024-05-24] MEDS ORDERED: MAGNESIUM HYDROXIDE SUSP 30 ML UDC PO PRN (17:17)
[2024-05-24] MEDS ORDERED: ALUMINUM/MAGNESIUM SUSP 30 ML UDC PO PRN (17:17)
[2024-05-24] MEDS ORDERED: NALOXONE HCL 0.4 MG/1 ML VIAL/CARP IV PRN (17:17)
[2024-05-24] MEDS: SODIUM CHLORIDE 0.9% 1,000 ML IV SCH (17:45)
[2024-05-24] MEDS: FERROUS GLUCONATE 324 MG TAB PO SCH (18:21)
[2024-05-24] MEDS: ASCORBIC ACID 500 MG TAB PO SCH (18:21)
[2024-05-24] MEDS: MYCOPHENOLATE MOFETIL 250 MG CAP PO SCH (20:05)
[2024-05-24] MEDS: MAGNESIUM OXIDE 400 MG TAB PO SCH (20:06)
[2024-05-24] MEDS: TACROLIMUS 1 MG CAP PO SCH (20:06)
[2024-05-24] MEDS: PANTOprazole 40 MG TAB PO SCH (20:06)
[2024-05-24] MEDS: FOLIC ACID 1 MG TAB PO SCH (20:07)
[2024-05-24] MEDS: FERROUS SULFATE 325 MG TAB PO SCH (20:07)
[2024-05-24] MEDS: METOPROLOL SUCC 50MG EXT REL TAB PO SCH (20:08)
[2024-05-24] MEDS: SENNA 8.6 MG TAB PO SCH (20:11)
[2024-05-24] MEDS: DOCUSATE SODIUM 100 MG CAP PO SCH (20:11)
[2024-05-24] MEDS ORDERED: ACETAMINOPHEN 500 MG TAB PO SCH (21:00)
[2024-05-24] MEDS ORDERED: SENNA 8.6 MG TAB PO SCH (21:00)
[2024-05-24] MEDS: TRANEXAMIC ACID / 0.7% NACL 1,000 MG/100 ML BAG IV SCH (21:46)
[2024-05-25 06:30] LABS: BUN Creatinine Ratio 16.1 (10-20); Creatinine Clr Calc Pharmacy 38.3 ml/min; Est GFR (African American) 34.9 ml/min; Est GFR (Non-African American) 30.1 ml/min; Potassium 4.6 mmol/L (3.5-5.1)
[2024-05-25 06:43] LABS: Hematocrit (blood only) 22.8 % (42.0-52.0); Hemoglobin 7.2 g/dl (14.0-18.0); Mean Corpuscular Hemoglobin 37.1 pg (25.0-34.0); Mean Corpuscular Hgb Conc 31.6 g/dL (32.0-36.0); Mean Corpuscular Volume 117.5 fL (80.0-100.0); Platelet Count 141 K/uL (130-400); RDW Coefficient of Variation 13.5 % (11.5-14.5); RDW Standard Deviation 56.9 fL (36.4-46.3); Red Blood Count 1.94 M/uL (4.70-6.10); White Blood Count 8.35 K/ul (4.8-10.8)
[2024-05-25 06:53] LABS: Basophils # (auto) 0.03 K/uL (0.00-0.20); Basophils % (auto) 0.4 %; Eosinophils # (auto) 0.14 K/uL (0.00-0.50); Eosinophils % (auto) 1.7 %; Immature Granulocytes # (auto) 0.02 K/uL (0.01-0.20); Immature Granulocytes % (auto) 0.2 %; Lymphocytes # (auto) 0.31 K/uL (1.20-3.40); Lymphocytes % (auto) 3.7 %; Macrocytosis Present; Monocytes # (auto) 0.72 K/uL (0.11-0.59); Monocytes % (auto) 8.6 %; Neutrophils # (auto) 7.13 K/uL (1.40-6.50); Neutrophils % (auto) 85.4 %; Polychromasia 1+
[2024-05-25] MEDS ORDERED: SODIUM CHLORIDE 0.9% 250 ML IV PRN ×2 (07:35→07:41)
--- NOTE | 2024-05-25 07:41 | Orthopedic Progress Note ---
Date of Service May 25, 2024 Assessment & Plan (1) Status post right hip replacement: Plan: 63-year-old male with multiple medical comorbidities including status post renal transplant now postop day 1 from a right hip replacement. He is really doing quite well. His creatinine is bumped up some and the looks like he is a little bit volume depleted. His hemoglobin is down with history of significant anemia in the past followed by hematology. Plan: 1. DVT prophylaxis including Thiede teds, SCDs, and working to use Xarelto for a month. 2. PT/OT. He can weight-bear as tolerated. Right total hip protocol. Does [place] hip precautions. 3. Pain control. Doing okay with current pain regimen. 4. Chronic anemia. He is been followed by hematology. He is anemic. Not having current symptoms but his creatinine has bumped up and I think he benefit from some increased volume. Working to give him a unit of blood. Will have to follow his creatinine closely. Encourage p.o. intake. He is on some steroids as well and will continue him on these in the perioperative period 5. Medical management as per the medicine service. 6. Disposition. He is hoping to be discharged to home. He is certainly not ready for discharge today. Will follow his creatinine and his hemoglobin and recheck these tomorrow. (2) Status post kidney transplant: Admission and Anticipated Discharge Date Admission Date: May 24, 2024 Subjective 63-year-old gentleman with multiple medical comorbidities postop day 1 from a right hybrid total hip replacement. Is doing pretty well. Really not have any pain at all while resting and lying in bed. Moderate pain with mobilization. Denies any chest pain or shortness of breath. Not feeling dizzy or lightheaded. Physical Exam Physical Exam: Physical examination was a pleasant middle-age male. Lying in bed looks pretty comfortable this morning. Examination the right hip reveals the leg to be well aligned. Dressings clean dry and intact. He can dorsiflex and plantarflex his foot appropriately. He is neurologically intact. Results & Data Vital Signs (Past 12 Hours) Vital Signs Temp Pulse Resp BP Pulse Ox O2 Del Method O2 Flow Rate 05/25/24 07:02 36.5 C 89 16 104/68 97 Room Air 05/25/24 03:50 36.5 C 84 16 122/81 99 Nasal Cannula 2 05/24/24 23:54 36.8 C 88 16 126/90 98 Nasal Cannula 2 05/24/24 20:20 36.4 C L 80 16 103/71 100 Nasal Cannula 2 05/24/24 20:06 Nasal Cannula 2 Laboratory Results Hemoglobin is 7.2. Hematocrit is 22.8. Creatinine is slightly elevated 2.24.
--- NOTE | 2024-05-25 07:42 | Hospitalist Consultation ---
Date of Consultation May 25, 2024 Assessment & Plan (1) Status post right hip replacement: s/p p Right Total Hip Arthroplasty, Cemented(Right) - Thompson Morel MD on 05/24. EBL 200cc * Operative findings were advanced right hip DJD. He had complete flattening of the femoral head. It a very dysplastic enlarged acetabulum. Moderate-sized joint effusion. Severe external rotation contracture. WBC wnl, afebrile. VSS Hgb dropped from 9.5 on pre-op lab testing to 7.2 this morning Suspect acute blood loss from surgery as well as patient with hx warm AIHI followed by CCP/Dr Gonsalez and also hx renal transplant. (LDH elevated on preop testing this month), remains on prednisone 5mg daily and was given dexamethasone 10mg IV ordered by primary service. Is on iron 2 tablets BID. Discussed w/ Dr Gonsalez, NEEDS IRRADIATED blood, type/cross but NOT AVAILABLE UNTIL TOMORROW?? 05/26. Patient without CP/SOB/lightheaded/dizziness but does have KRISSY w/ Cr to 2.24 and nephrology consulted given transplant. . Did resume acyclovir 400mg BID as takes at home. Remains on tacrolimus. Appreciate nephrology recs/assistance Pain control/bowel regimen/PT/OT per primary service DVT proph w/ Xarelto ordered Will also consult Dr Gonsalez to follow along as discussed case with this morning Monitor counts this evening/sooner if needed. Hospitalist service will follow along. Please call with any questions/concerns. 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 Recs for IRRADIATED BLOOD as above, type/cross, 1unit to transfuse now for hgb 7.2 dexamethasone per primary, Remains on prednisone daily. Monitor for increased needs Heme/onc consulted given complex hx to follow. Appreciate recs/assistance (3) Status post kidney transplant: Acyclovir BID resumed, remains on tacrolimus/cellcept Cr 2.24, PRBC as above as suspect anemia leading to KRISSY Nephrology consulted given renal transplant. Appreciate recs/assistance (4) Coronary artery calcification: HX CAD, afib/flutter, HTN. Cardiac clearance in chart Remains on toprol XL, xarelto for DVT proph as above Coronary Artery Calcifications, Atrial Fibrillation (diagnosed 2022)/Atrial Flutter January 2024, Thoracic Aortic Aneurysm (4.8 cm in January 2024), Renal Transplan t (2009) with Autoimmune Hemolytic Anemia, CKD, Sleep Apnea (does not use CPAP), Atherosclerosis of the Aorta, GERD, Hypertension, TIA after dialysis in the past, and a Left Upper Extremity AV Fistula who presents today for Preoperative Cardiac Evaluation (5) Atrial fibrillation: hx afib but not able to be on eliquis in the past w/ reported anemia and remains on metoprolol 100mg HS remains on metoprolol keep mag/k stable -- mag 1.3, on daily supplementation. Will order IV replacement (6) Rosales's esophagus with esophagitis: continue PPI BID (7) Hypothyroidism: continue Synthroid (8) Proteinuria: lisinopril at baseline w/ nephrology in the remote past but now off due to BP and need to continue metoprolol for HR control as above nephro consulted while inpatient (9) Hypomagnesemia: low, continue PO but ordering IV replacement given 1.5 on pre-op and worse today at 1.3. ?2nd PPI monitor level in am Plan Thank you for allowing hospitalist service to participate in the care of Mr Mandel. Hospitalist service will follow along. Please call with any questions/concerns. Supervising Physician Co-Signing Physician Notes The patient was seen by me. The chart was reviewed. Case discussed with MASON French. Agree with assessment and plan History of Present Illness Reason for Consultation: routine post-op medical management Requesting Physician: Dr Morel Attending Physician: Thompson Morel MD History of Present Illness 63yo male presented for RIGHT total hip with Dr Morel on 05/25 EBL 200cc Notable patient with PMHx significant for renal transplant on tacrolimus and recent dx this summer for warm AIHA followed/seen by Dr Gonsalez and was on Velcade however held in anticipation for hip surgery to lower risk of perioperative infections. Patient seen in 379-2, POD#1 from RIGHT hip. Doing well, pain reasonable control. Moved his bowels, large BM this morning. Denied any blood in stool Hgb was9.5 on pre-op testing and 7.2 on AM labs with KRISSY. Denies any CP/SOB/lightheaded/dizziness however discussed I spoke with Dr Gonsalez and nephrology who are ok w/ PRBC but had already had 2 units ordered but given his history NEEDS TO BE IRRADIATED product and discussed with blood bank and repeat type/cross ordered. Unfortunately blood not available until tomorrow morning per staff and will monitor but they have ordered additional units if needed. Decent appetite. Discussed acyclovir, he is on. Has been resumed. Tacrolimus dosing adjustment per neph noted and remains on such and Nephrology consulted for assistance given transplant. Questions/concerns addressed at this time. Allergies Allergy/AdvReac Type Severity Reaction Status Date / Time clopidogrel [From Plavix] Allergy Unknown Unknown Verified 05/24/24 10:19 Hrrbiwy-QCX-IcW Reductase AdvReac Intermediate myalgias Verified 05/24/24 10:19 Inhibitor [Xofrwfl-Bcq-Wup Reductase Inhibitor] Home Medications Medication Instructions Recorded Confirmed Type mycophenolate mofetil 250 mg 500 mg (2 x 250 mg) PO BID #360 05/29/20 05/24/24 Rx capsule caps amoxicillin 500 mg capsule 2,000 mg PO DIRECTED PRN PRIOR 07/29/20 05/24/24 History TO DENTAL PROCEDURES multivitamin 1 tab PO QAM 08/02/21 05/24/24 History magnesium oxide 500 mg PO HS 09/04/23 05/24/24 History folic acid 1 mg tablet 1 mg PO BID #180 tabs 09/20/23 05/24/24 Rx pantoprazole 40 mg tablet,delayed 40 mg PO BID #180 tabs 12/06/23 05/24/24 Rx release calcium carbonate 500 mg PO QAM 01/21/24 05/24/24 History prochlorperazine maleate 10 mg 10 mg PO Q6 PRN Nausea And Vomiting 01/21/24 05/24/24 History tablet ferrous sulfate 325 mg (65 mg 325 mg PO BID #60 tabs 02/05/24 05/24/24 Rx iron) tablet prednisone 5 mg tablet 5 mg PO DAILY #90 tabs 02/27/24 05/24/24 Rx levothyroxine 125 mcg tablet 125 mcg PO QAM #90 tabs 03/04/24 05/24/24 Rx tacrolimus 1 mg capsule, 3 mg PO DAILY 04/16/24 05/24/24 History immediate-release metoprolol succinate 100 mg 100 mg PO HS #90 tabs 04/22/24 05/24/24 Rx tablet,extended release 24 hr acyclovir 400 mg tablet 400 mg PO BID 05/07/24 05/24/24 History acetaminophen 500 mg tablet 1,000 mg (2 x 500 mg) PO TID pain 05/22/24 05/24/24 Rx (Tylenol Extra Strength) 30 days #180 tabs cefadroxil 500 mg capsule 500 mg PO BID 7 days #14 caps 05/22/24 05/24/24 Rx ondansetron 4 mg disintegrating 4 mg PO Q8 PRN nausea #20 tabs 05/22/24 05/24/24 Rx tablet sennosides 8.6 mg tablet (Senokot) 8.6 mg PO BID prevent constipation 05/22/24 05/24/24 Rx 14 days #28 tabs tamsulosin 0.4 mg capsule (Flomax) 0.4 mg PO DAILY #7 caps 05/22/24 05/24/24 Rx tramadol 50 mg tablet 50 - 100 mg (1 - 2 x 50 mg) PO Q6 05/22/24 05/24/24 Rx PRN pain #40 tabs Patient History Medical History History of non-ST elevation myocardial infarction (NSTEMI) entered into chart 01/2023 Osteoporosis Hypothyroidism Hyperlipidemia Hx of esophageal reflux controlled, stable per pt 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 Abdominal aortic aneurysm 4.9 cm on 01/2023 chest CTA CKD (chronic kidney disease) History of colon polyps Retroperitoneal mass lesion biopsy negative for malignancy 05/2022 per transplant record 03/17/23 Pneumonia HX Adrenal nodule monitored by PCP Arthritis On prednisone therapy Atrial fibrillation controlled w/ metoprolol, no cardio Rosales's esophagus with esophagitis Atrial flutter unaware 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 Warm autoimmune hemolytic anemia Sleep apnea no device Thoracic ascending aortic aneurysm 4.[address] 01/19/24 Hypertension controlled, stable per pt Limb alert care status left arm restriction History of blood transfusion 01/2024 Hx of herpetic maria History of COVID-19 07/2020- covid pneumonia, hospitalized; resolved History of renal dialysis prior to kidney transplant; has dialysis fistula left arm History of CVA (cerebrovascular accident) 2008, mild memory changes Surgical History History of esophagogastroduodenoscopy (EGD) Hx of cholecystectomy Hx of exploratory laparotomy Hx of kidney transplant 02/2010- [place] History of colonoscopy Family History Grandmother (Maternal) Alzheimer disease Mother Depression Denies family history of Ovarian cancer Prostate cancer Diabetes Heart disease Myocardial infarction Breast cancer Lung cancer COPD (chronic obstructive pulmonary disease) Colorectal cancer Hypertension Stroke Social History Smoking Status: Never smoker Second Hand Exposure: No; Do You Dip or Chew Tobacco: No; Tobacco Cessation Education Requested by Patient: No Hx Alcohol Use: No Hx Substance Use: No 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: French Communication Ability: Effective Visual Impairment: No Limitations Hearing Ability: Normal Race Relations Adviser Required: No Beliefs That Will Affect Care: None marital status: Current Living Situation: Spouse current occupational status: employed current occupation: [email or web address] How many Children do You have: 1 Other Information That Helps Us Care for You: No Feels Safe at Home: Yes Safety Concerns: Feels Safe At This Time Childhood Exposure to Second-Hand Smoke: No Dental Care, Regularly: Yes Seatbelt Use: sometimes Sunscreen Use: No Assistive Devices: Cane and Walker Physical Exam Physical Exam: General: 63yo male sitting up in recliner, just got done working with PT, NAD HEENT: head atraumatic, normocephalic, mmm, trachea midline Resp: even/unlabored, slightly diminished in the bases with faint expiratory wheezing, on room air CV: irregularly irregular, rates controlled, +systolic murmur, trace LE edema bilaterally but no calf tenderness, pulses present LUE fistula noted GI:+BS, soft/NT ; no rainey MSK/Neuro: dressing/vac to RIGHT hip in place, compartments soft, appropriately tender to palpation, sensation intact/pulses present nonfocal/no slurred speech/facial droop Psych: AOx3, cooperative with exam Results & Data Results & Data Vital Signs (Past 12 Hours) Vital Signs Temp Pulse Resp BP Pulse Ox O2 Del Method O2 Flow Rate 05/25/24 07:02 36.5 C 89 16 104/68 97 Room Air 05/25/24 03:50 36.5 C 84 16 122/81 99 Nasal Cannula 2 05/24/24 23:54 36.8 C 88 16 126/90 98 Nasal Cannula 2 05/24/24 20:20 36.4 C L 80 16 103/71 100 Nasal Cannula 2 05/24/24 20:06 Nasal Cannula 2 Laboratory Results 05/25/24 05/25/24 05/22/24 Range/Units 08:15 05:39 10:18 WBC 8.35 (4.8-10.8) K/ul RBC 1.94 L (4.70-6.10) M/uL Hgb 7.2 L (14.0-18.0) g/dl Hct 22.8 L (42.0-52.0) % MCV 117.5 H (80.0-100.0) fL MCH 37.1 H (25.0-34.0) pg MCHC 31.6 L (32.0-36.0) g/dL RDW Std Deviation 56.9 H (36.4-46.3) fL RDW Coeff of Jaye 13.5 (11.5-14.5) % Plt Count 141 (130-400) K/uL MPV 10.0 (9.4-12.4) fL Immature Gran % (Auto) 0.2 % Neut % (Auto) 85.4 % Lymph % (Auto) 3.7 % Walker % (Auto) 8.6 % Eos % (Auto) 1.7 % Baso % (Auto) 0.4 % Neut # (Auto) 7.13 H (1.40-6.50) K/uL Lymph # (Auto) 0.31 L (1.20-3.40) K/uL Walker # (Auto) 0.72 H (0.11-0.59) K/uL Eos # (Auto) 0.14 (0.00-0.50) K/uL Baso # (Auto) 0.03 (0.00-0.20) K/uL Immature Gran # (Auto) 0.02 (0.01-0.20) K/uL Polychromasia 1+ Macrocytosis Present Sodium 138 (136-145) mmol/L Potassium 4.6 (3.5-5.1) mmol/L Chloride 107 (98-107) mmol/L Carbon Dioxide 23 (21-32) mmol/L Anion Gap 8 (3-11) BUN 36 H (6-23) mg/dl Creatinine 2.24 H (0.6-1.4) mg/dl Est Cr Clr Drug Dosing 38.3 ml/min Est GFR ( Amer) 34.9 ml/min Est GFR (Non-Af Amer) 30.1 ml/min BUN/Creatinine Ratio 16.1 (10-20) Glucose 90 (70-99(Fasting)) mg/dl Calcium 8.0 L (8.6-10.3) mg/dl Magnesium 1.3 L (1.7-2.4) mg/dl Blood Type A Positive Antibody Screen POSITIVE A Antibody Identification Pending Antibody ID Referred Pending Antibody ID Comment Pending Crossmatch See Detail See Detail Diagnostic Findings Hip/Pelvis X-Ray 05/24/24 15:22 XR hip 1V RT w pelvis HISTORY: 63 years-old Male IN PACU - Post Surgical COMPARISON: Hip radiographs 05/02/2024 TECHNIQUE: AP view the pelvis with crosstable lateral view of the right hip FINDINGS: Right hip arthroplasty with lateral skin wiley, expected postoperative soft tissue swelling with deep tissue air. Ntkh-rq-dzvukjes left hip osteoarthritis. Arterial calcifications. No acute fracture or dislocation. IMPRESSION: Right hip arthroplasty with expected postoperative changes. ACT 112: Negative or not required by law. The above report was generated using voice recognition software. It may contain grammatical, syntax or spelling errors. Electronically signed by: Darion Garcia M.D. 05/24/2024 4:12 PM PG Care Time/CCT Total # of Minutes Spent Total Time Spent with Patient: Total time spent is greater than 50% in coordination of care (as documented) at patient's floor/unit and/or counseling patient: Coding Level of Care Code 68055 IN/OBS CONSULT LVL 4,60M Diagnoses Status post right hip replacement Z96.641 Autoimmune hemolytic anemia D59.10 Status post kidney transplant Z94.0 Coronary artery calcification I25.10 Atrial fibrillation, unspecified type I48.91 Atrial fibrillation type: unspecified Rosales's esophagus with esophagitis K22.70; K20.90 Other specified hypothyroidism E03.8 Hypothyroidism type: other Proteinuria R80.9 Hypomagnesemia E83.42 (5) Atrial fibrillation Atrial fibrillation type: unspecified Qualified Code(s): I48.91 - Unspecified atrial fibrillation (7) Hypothyroidism Hypothyroidism type: other Qualified Code(s): E03.8 - Other specified hypothyroidism
[2024-05-25 08:02] LABS: Magnesium 1.3 mg/dl (1.7-2.4)
[2024-05-25] MEDS: dexAMETHasone 10 MG in SYRINGE 0 ML IV SCH (08:21)
[2024-05-25] MEDS: CALCIUM CARBONATE 1250MG TAB PO SCH (08:21)
[2024-05-25] MEDS: predniSONE 5 MG TAB PO SCH (08:22)
[2024-05-25] MEDS: TACROLIMUS 1 MG CAP PO SCH (08:22)
[2024-05-25] MEDS: LEVOTHYROXINE SODIUM 125 MCG TABLET PO SCH (08:23)
[2024-05-25] MEDS: TAMSULOSIN HCL 0.4 MG CAP PO SCH (08:23)
[2024-05-25] MEDS: MULTIVITAMIN TAB PO SCH (08:23)
[2024-05-25] MEDS ORDERED: NON-FORMULARY MEDICATION (Multivitamin Tablet) PO SCH (09:00)
[2024-05-25] MEDS: MAGNESIUM SULFATE / D5W 1 GM/100 ML BAG IV SCH (09:40)
[2024-05-25] MEDS: ACYCLOVIR 400 MG TAB PO SCH (09:45)
--- NOTE | 2024-05-25 12:38 | Nephrology Consultation ---
Date of Consultation May 25, 2024 Assessment & Plan (1) Acute kidney injury: (2) Status post kidney transplant: (3) Status post right hip replacement: (4) Hypomagnesemia: (5) Anemia: Plan ESKD secondary to FSGS, status post Live unrelated kidney transplant. Has decent allograft function, b/l cr 1.3-1.4 mg/dl. Has no history of diabetes, CHF or coronary artery disease. Had elective right hip arthroplasty yesterday. Clinically otherwise staying stable although blood pressure has been relatively low and variable. Reports decent p.o. intake and voiding normally. Lab this morning was notable for KRISSY most likely hemodynamically mediated with relatively low blood pressure after hip surgery, creatinine was 2.2, magnesium 1.3 and hemoglobin dropped to 7.2. --Encouraged to increase fluid intake and keep well-hydrated. Check kidney function and electrolyte in a.m., if there is any further worsening of kidney function, will consider allograft ultrasound and IV fluid however as he is able to maintain p.o. intake, blood pressure better, no pressing indication for IV fluid at this time. --Already on IV magnesium supplement. --Okay to consider blood transfusion as recommended by hematology with history of autoimmune hemolytic anemia and drop in hemoglobin. --continue on current dose of Prograf, goal trough 4-7. History of Present Illness Reason for Consultation: KRISSY, Renal Tx, hypomagnesemia Attending Physician: Thompson Morel MD History of Present Illness Mr. 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 Nephrology consult was requested for management of KRISSY, Anemia, hypomagnesemia and immunosuppressive medication management. EMR records were reviewed in detail during patient's visit. Gumaro was admitted yesterday and had elective right total knee arthroplasty. Surgery was uneventful and overall he has been feeling well. Pain seems manageable. He reports decent p.o. intake. Lab this morning was notable for hypomagnesemia and KRISSY, magnesium was 1.3, creatinine was 2.2 mg/dl. There was significant drop in hemoglobin to 7.2 this morning. He reports voiding normally. Blood pressure has been relatively low after the surgery. Stage 3A CKD secondary to mild allograft dysfunction with h/o LUKT for ESKD secondary to nephrotic syndrome due to FSGS, b/l cr 1.3-1.4 mg/dl. In 2000 he was diagnosed with FSGS, slowly progressed to end-stage renal disease and was on hemodialysis briefly for 1.5 years through AV fistula until he received LURT from his stepson at [facility] in February 2010. His current immunosuppressive regimen includes tacrolimus 2 mg/1mg q12 h, CellCept 500 milligram twice a day and prednisone 5 milligrams daily. 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 He also had transplant renal artery stenosis status post angioplasty. Has been having decent allograft function, b/l cr around 1.3-1.4 mg/dl hip.. He did have an episode of acute kidney injury in March 2017 when creatinine went up to 2.8. Was seen by urologist at that time however no postrenal obstruction or other issues were found for the acute kidney injury. He has moderate degree proteinuria, 700 mg in 24 hour urine. Recently lisinopril was discontinued because of low blood pressure. On metoprolol 100 mg daily, heart rate generally stays 80s to 90s. No history of coronary artery disease or CHF. Has GERD, has been on Protonix 40 milligrams daily. Refused all vaccines. Diagnosed with autoimmune hemolytic anemia in January 2024, received blood transfusion, now on Velcade. Overall he has been feeling otherwise fine. Reports decent p.o. intake, has been voiding normally. Hemoglobin dropped to 7.2. Creatinine 2.2 magnesium 1.3 this morning. Allergies Allergy/AdvReac Type Severity Reaction Status Date / Time clopidogrel [From Plavix] Allergy Unknown Unknown Verified 05/24/24 10:19 Bucatbv-GCR-EtC Reductase AdvReac Intermediate myalgias Verified 05/24/24 10:19 Inhibitor [Wjcsinu-Kcp-Tdv Reductase Inhibitor] Home Medications Medication Instructions Recorded Confirmed Type mycophenolate mofetil 250 mg 500 mg (2 x 250 mg) PO BID #360 05/29/20 05/24/24 Rx capsule caps amoxicillin 500 mg capsule 2,000 mg PO DIRECTED PRN PRIOR 07/29/20 05/24/24 History TO DENTAL PROCEDURES multivitamin 1 tab PO QAM 08/02/21 05/24/24 History magnesium oxide 500 mg PO HS 09/04/23 05/24/24 History folic acid 1 mg tablet 1 mg PO BID #180 tabs 09/20/23 05/24/24 Rx pantoprazole 40 mg tablet,delayed 40 mg PO BID #180 tabs 12/06/23 05/24/24 Rx release calcium carbonate 500 mg PO QAM 01/21/24 05/24/24 History prochlorperazine maleate 10 mg 10 mg PO Q6 PRN Nausea And Vomiting 01/21/24 05/24/24 History tablet ferrous sulfate 325 mg (65 mg 325 mg PO BID #60 tabs 02/05/24 05/24/24 Rx iron) tablet prednisone 5 mg tablet 5 mg PO DAILY #90 tabs 02/27/24 05/24/24 Rx levothyroxine 125 mcg tablet 125 mcg PO QAM #90 tabs 03/04/24 05/24/24 Rx tacrolimus 1 mg capsule, 3 mg PO DAILY 04/16/24 05/24/24 History immediate-release metoprolol succinate 100 mg 100 mg PO HS #90 tabs 04/22/24 05/24/24 Rx tablet,extended release 24 hr acyclovir 400 mg tablet 400 mg PO BID 05/07/24 05/24/24 History acetaminophen 500 mg tablet 1,000 mg (2 x 500 mg) PO TID pain 05/22/24 05/24/24 Rx (Tylenol Extra Strength) 30 days #180 tabs cefadroxil 500 mg capsule 500 mg PO BID 7 days #14 caps 05/22/24 05/24/24 Rx ondansetron 4 mg disintegrating 4 mg PO Q8 PRN nausea #20 tabs 05/22/24 05/24/24 Rx tablet sennosides 8.6 mg tablet (Senokot) 8.6 mg PO BID prevent constipation 05/22/24 05/24/24 Rx 14 days #28 tabs tamsulosin 0.4 mg capsule (Flomax) 0.4 mg PO DAILY #7 caps 05/22/24 05/24/24 Rx tramadol 50 mg tablet 50 - 100 mg (1 - 2 x 50 mg) PO Q6 05/22/24 05/24/24 Rx PRN pain #40 tabs Patient History Medical History History of non-ST elevation myocardial infarction (NSTEMI) entered into chart 01/2023 Osteoporosis Hypothyroidism Hyperlipidemia Hx of esophageal reflux controlled, stable per pt 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 Abdominal aortic aneurysm 4.9 cm on 01/2023 chest CTA CKD (chronic kidney disease) History of colon polyps Retroperitoneal mass lesion biopsy negative for malignancy 05/2022 per transplant record 03/17/23 Pneumonia HX Adrenal nodule monitored by PCP Arthritis On prednisone therapy Atrial fibrillation controlled w/ metoprolol, no cardio Rosales's esophagus with esophagitis Atrial flutter unaware 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 Warm autoimmune hemolytic anemia Sleep apnea no device Thoracic ascending aortic aneurysm 4.[address] 01/19/24 Hypertension controlled, stable per pt Limb alert care status left arm restriction History of blood transfusion 01/2024 Hx of herpetic maria History of COVID-19 07/2020- covid pneumonia, hospitalized; resolved History of renal dialysis prior to kidney transplant; has dialysis fistula left arm History of CVA (cerebrovascular accident) 2008, mild memory changes Surgical History History of esophagogastroduodenoscopy (EGD) Hx of cholecystectomy Hx of exploratory laparotomy Hx of kidney transplant 02/2010- [facility] [place] History of colonoscopy Family History Grandmother (Maternal) Alzheimer disease Mother Depression Denies family history of Ovarian cancer Prostate cancer Diabetes Heart disease Myocardial infarction Breast cancer Lung cancer COPD (chronic obstructive pulmonary disease) Colorectal cancer Hypertension Stroke Social History Smoking Status: Never smoker Second Hand Exposure: No; Do You Dip or Chew Tobacco: No; Tobacco Cessation Education Requested by Patient: No Hx Alcohol Use: No Hx Substance Use: No 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: Luxembourgish Communication Ability: Effective Visual Impairment: No Limitations Hearing Ability: Normal Solar Electric Practitioner Required: No Beliefs That Will Affect Care: None marital status: Current Living Situation: Spouse current occupational status: employed current occupation: [employer] How many Children do You have: 1 Other Information That Helps Us Care for You: No Feels Safe at Home: Yes Safety Concerns: Feels Safe At This Time Childhood Exposure to Second-Hand Smoke: No Dental Care, Regularly: Yes Seatbelt Use: sometimes Sunscreen Use: No Assistive Devices: Cane and Walker Review of Systems Review of Systems: Detailed review of system was done and pertinent positives and negatives are mentioned above. Physical Exam Constitutional: WD/WN, vitals as above no acute distress Neck: normal visual inspection Respiratory: Auscultation: lungs clear to auscultation bilaterally Cardiovascular: RRR, no murmur, no edema Gastrointestinal (Abdomen): Inspection/Auscultation: abdomen normal to inspection Musculoskeletal: Extremities: extremities normal to inspection Skin: no rashes, warm and dry Neurologic: no focal motor deficits Psychiatric: Orientation: alert and oriented x 3 Affect: euthymic affect Results & Data Vital Signs (Past 12 Hours) Vital Signs Temp Pulse Resp BP Pulse Ox O2 Del Method O2 Flow Rate 05/25/24 11:31 36.5 C 96 H 16 102/69 97 Room Air 05/25/24 08:00 Room Air 05/25/24 07:02 36.5 C 89 16 104/68 97 Room Air 05/25/24 03:50 36.5 C 84 16 122/81 99 Nasal Cannula 2 PG Care Time/CCT Total # of Minutes Spent Total Time Spent with Patient: Total time spent is greater than 50% in coordination of care (as documented) at patient's floor/unit and/or counseling patient: Coding Level of Care Code 72316 INT INP/OBS CARE 3/75MIN Diagnoses Acute kidney injury N17.9 Status post kidney transplant Z94.0 Status post right hip replacement Z96.641 Hypomagnesemia E83.42 Anemia D50.9 Anemia type: iron deficiency Iron deficiency anemia type: unspecified iron deficiency (5) Anemia Anemia type: iron deficiency Iron deficiency anemia type: unspecified iron deficiency Qualified Code(s): D50.9 - Iron deficiency anemia, unspecified
--- NOTE | 2024-05-25 16:20 | Oncology Consultation ---
Date of Consultation May 25, 2024 Assessment & Plan (1) Autoimmune hemolytic anemia: Hemoglobin was 7.5 mg/dL post operatively. Discussed with my hospital internal medicine colleague, recommended transfusion of 1 unit packed red blood cell, leukoreduced and irradiated. Will resume outpatient management of hemolytic anemia with Velcade as last Velcade was held because of concerns of perioperative sepsis. Continue monitoring CBC closely. Plan Hematology will continue to follow the patient make appropriate recommendations. Thank you for this interesting hematological consult. History of Present Illness Reason for Consultation: Autoimmune hemolytic anemia Attending Physician: Thompson Morel MD History of Present Illness Warm AIHA Diagnosis: 07/2023 Treatment: Prednisone 60 mg PO daily tapered; currently on 5 mg PO daily dose Latest Hb; 09/02/2024: 7.6 gm/dl with macrocytosis High-dose prednisone Rituximab, day 1 05/02/2022 followed by rituximab every 2 months IVIG High-dose Cytoxan x 2 Current treatment: Maintenance bortezomib 1.3 mg/m q. [address] Chest diagnostic; 10/25/2023: 11 mm irregular groundglass nodule within the right lung apex. Interval development of a mild subacute superior endplate compression fracture at T12 vertebrae. Irregular soft tissue density portion of the left adrenal gland. Aneurysmal dilatation of the thoracic aorta. EGD; 09/13/2023: Squamocolumnar mucosa with reactive changes and intestinal metaplasia consistent with Rosales's esophagus. Gastric cardia type mucosa. Negative for malignancy and dysplasia CT Abdomen pelvis without contrast; 07/05/2023: Progressive infiltrative soft tissue attenuating foci throughout the retroperitoneuam and mesentry. Lymphoproliferative disorder is the diagnosis of exclusion. Outside bone marrow biopsy, 2022: No evidence of malignancy Mr. Mandel is in the hospital after he underwent a hip replacement surgery. Post hip replacement surgery he was noted to have a hemoglobin of 7.5. Hematology has been consulted to assist in management of this patient with autoimmune hemorrhagic anemia who is currently under treatment with Velcade and is anemic postsurgery. Allergies Allergy/AdvReac Type Severity Reaction Status Date / Time clopidogrel [From Plavix] Allergy Unknown Unknown Verified 05/24/24 10:19 Lfhssix-OZB-DeZ Reductase AdvReac Intermediate myalgias Verified 05/24/24 10:19 Inhibitor [Korgdqg-Pdx-Bmb Reductase Inhibitor] Home Medications Medication Instructions Recorded Confirmed Type mycophenolate mofetil 250 mg 500 mg (2 x 250 mg) PO BID #360 05/29/20 05/24/24 Rx capsule caps amoxicillin 500 mg capsule 2,000 mg PO DIRECTED PRN PRIOR 07/29/20 05/24/24 History TO DENTAL PROCEDURES multivitamin 1 tab PO QAM 08/02/21 05/24/24 History magnesium oxide 500 mg PO HS 09/04/23 05/24/24 History folic acid 1 mg tablet 1 mg PO BID #180 tabs 09/20/23 05/24/24 Rx pantoprazole 40 mg tablet,delayed 40 mg PO BID #180 tabs 12/06/23 05/24/24 Rx release calcium carbonate 500 mg PO QAM 01/21/24 05/24/24 History prochlorperazine maleate 10 mg 10 mg PO Q6 PRN Nausea And Vomiting 01/21/24 05/24/24 History tablet ferrous sulfate 325 mg (65 mg 325 mg PO BID #60 tabs 02/05/24 05/24/24 Rx iron) tablet prednisone 5 mg tablet 5 mg PO DAILY #90 tabs 02/27/24 05/24/24 Rx levothyroxine 125 mcg tablet 125 mcg PO QAM #90 tabs 03/04/24 05/24/24 Rx tacrolimus 1 mg capsule, 3 mg PO DAILY 04/16/24 05/24/24 History immediate-release metoprolol succinate 100 mg 100 mg PO HS #90 tabs 04/22/24 05/24/24 Rx tablet,extended release 24 hr acyclovir 400 mg tablet 400 mg PO BID 05/07/24 05/24/24 History acetaminophen 500 mg tablet 1,000 mg (2 x 500 mg) PO TID pain 05/22/24 05/24/24 Rx (Tylenol Extra Strength) 30 days #180 tabs cefadroxil 500 mg capsule 500 mg PO BID 7 days #14 caps 05/22/24 05/24/24 Rx ondansetron 4 mg disintegrating 4 mg PO Q8 PRN nausea #20 tabs 05/22/24 05/24/24 Rx tablet sennosides 8.6 mg tablet (Senokot) 8.6 mg PO BID prevent constipation 05/22/24 05/24/24 Rx 14 days #28 tabs tamsulosin 0.4 mg capsule (Flomax) 0.4 mg PO DAILY #7 caps 05/22/24 05/24/24 Rx tramadol 50 mg tablet 50 - 100 mg (1 - 2 x 50 mg) PO Q6 05/22/24 05/24/24 Rx PRN pain #40 tabs Patient History Medical History History of non-ST elevation myocardial infarction (NSTEMI) entered into chart 01/2023 Osteoporosis Hypothyroidism Hyperlipidemia Hx of esophageal reflux controlled, stable per pt 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 Abdominal aortic aneurysm 4.9 cm on 01/2023 chest CTA CKD (chronic kidney disease) History of colon polyps Retroperitoneal mass lesion biopsy negative for malignancy 05/2022 per transplant record 03/17/23 Pneumonia HX Adrenal nodule monitored by PCP Arthritis On prednisone therapy Atrial fibrillation controlled w/ metoprolol, no cardio Rosales's esophagus with esophagitis Atrial flutter unaware 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 Warm autoimmune hemolytic anemia Sleep apnea no device Thoracic ascending aortic aneurysm 4.[address] 01/19/24 Hypertension controlled, stable per pt Limb alert care status left arm restriction History of blood transfusion 01/2024 Hx of herpetic maria History of COVID-19 07/2020- covid pneumonia, hospitalized; resolved History of renal dialysis prior to kidney transplant; has dialysis fistula left arm History of CVA (cerebrovascular accident) 2008, mild memory changes Surgical History History of esophagogastroduodenoscopy (EGD) Hx of cholecystectomy Hx of exploratory laparotomy Hx of kidney transplant 02/2010- [facility] [place] History of colonoscopy Family History Grandmother (Maternal) Alzheimer disease Mother Depression Denies family history of Ovarian cancer Prostate cancer Diabetes Heart disease Myocardial infarction Breast cancer Lung cancer COPD (chronic obstructive pulmonary disease) Colorectal cancer Hypertension Stroke Social History Smoking Status: Never smoker Second Hand Exposure: No; Do You Dip or Chew Tobacco: No; Tobacco Cessation Education Requested by Patient: No Hx Alcohol Use: No Hx Substance Use: No 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: Azeri Communication Ability: Effective Visual Impairment: No Limitations Hearing Ability: Normal Animal Caretaker Required: No Beliefs That Will Affect Care: None marital status: Current Living Situation: Spouse current occupational status: employed current occupation: [employer] How many Children do You have: 1 Other Information That Helps Us Care for You: No Feels Safe at Home: Yes Safety Concerns: Feels Safe At This Time Childhood Exposure to Second-Hand Smoke: No Dental Care, Regularly: Yes Seatbelt Use: sometimes Sunscreen Use: No Assistive Devices: Cane and Walker Review of Systems Review of Systems: All systems reviewed & are unremarkable except as noted in HPI & below Constitutional: as per Subjective / HPI Eyes: as per Subjective / HPI Ear, Nose, Mouth, Throat: as per Subjective / HPI Respiratory: as per Subjective / HPI Cardiovascular: as per Subjective / HPI Gastrointestinal: as per Subjective / HPI Genitourinary: + as per Subjective / HPI Musculoskeletal: as per Subjective / HPI Integumentary: as per Subjective / HPI Neurologic: as per Subjective / HPI Psychiatric: as per Subjective / HPI Endocrine: as per Subjective / HPI Physical Exam Constitutional: WD/WN, vitals as above Eyes: PERRL, conjunctivae normal, anicteric sclerae ENMT: external ear and nose normal, oropharynx normal Neck: trachea midline, no thyromegaly Respiratory: normal respiratory effort, lungs clear to auscultation Cardiovascular: RRR, no murmur, no edema Gastrointestinal (Abdomen): normal bowel sounds, soft, nontender, no hepatosplenomegaly Musculoskeletal: no cyanosis or clubbing, extremities motor strength 5/5 Skin: no rashes, warm and dry Neurologic: patellar DTR's 2+ bilat, sensation intact Results & Data Vital Signs (Past 12 Hours) Vital Signs Temp Pulse Resp BP Pulse Ox O2 Del Method 05/25/24 15:05 36.6 C 97 H 18 104/70 96 Room Air 05/25/24 11:31 36.5 C 96 H 16 102/69 97 Room Air 05/25/24 08:00 Room Air 05/25/24 07:02 36.5 C 89 16 104/68 97 Room Air
[2024-05-25] MEDS: RIVAROXABAN 10 MG TABLET PO SCH (16:41)
[2024-05-25 20:09] LABS: Hematocrit (blood only) 21.7 % (42.0-52.0); Hemoglobin 7.1 g/dl (14.0-18.0); Mean Corpuscular Hemoglobin 38.6 pg (25.0-34.0); Mean Corpuscular Hgb Conc 32.7 g/dL (32.0-36.0); Mean Corpuscular Volume 117.9 fL (80.0-100.0); Mean Platelet Volume 10.4 fL (9.4-12.4); Platelet Count 143 K/uL (130-400); RDW Coefficient of Variation 13.5 % (11.5-14.5); RDW Standard Deviation 55.5 fL (36.4-46.3); Red Blood Count 1.84 M/uL (4.70-6.10); White Blood Count 11.24 K/ul (4.8-10.8)
[2024-05-26 06:31] LABS: Hemoglobin 7.1 g/dl (14.0-18.0); Mean Corpuscular Hgb Conc 32.3 g/dL (32.0-36.0); Mean Corpuscular Volume 114.6 fL (80.0-100.0); Mean Platelet Volume 10.2 fL (9.4-12.4); Platelet Count 144 K/uL (130-400); RDW Coefficient of Variation 13.4 % (11.5-14.5); RDW Standard Deviation 54.4 fL (36.4-46.3); Red Blood Count 1.92 M/uL (4.70-6.10); White Blood Count 14.09 K/ul (4.8-10.8)
[2024-05-26 06:49] LABS: BUN Creatinine Ratio 21.4 (10-20); Calcium 8.6 mg/dl (8.6-10.3); Creatinine Clr Calc Pharmacy 45.9 ml/min; Est GFR (African American) 43.4 ml/min; Est GFR (Non-African American) 37.4 ml/min; Potassium 4.8 mmol/L (3.5-5.1)
--- NOTE | 2024-05-26 08:00 | Orthopedic Progress Note ---
Date of Service May 26, 2024 Assessment & Plan (1) Status post right hip replacement: Plan: 63-year-old male with multiple medical comorbidities now postop day 2 from right hybrid total hip replacement. Orthopedically is doing pretty well. His hemoglobin dropped which is not unexpected but seems to be stable. His creatinine also bumped up likely due to a volume depletion and low hemoglobin. It is improved today. I do think it is the likely benefit for some blood to help perfusion. Plan: 1. DVT prophylaxis. Will plan on continue the thigh-high teds, SCDs, and Xarelto. He has been off anticoagulation due to his anemia but in this postoperative. I did like to treat him for 1 month if possible. Hemoglobin is currently appears stable and creatinine seems to be improving. 2. PT/OT. He can weight-bear as tolerated. Needs to obey hip precautions. 3. Pain control doing okay with current pain regimen. 4. Kidney management. Nephrology is assisting in care. Creatinine is improved. He would likely help be help with the unit of blood transfusion. 5. Hematology/oncology. Hemoglobin stable. I do think he benefit from a 1 unit of blood. There cannot give that today. 6. Medical management as per the medicine service. 7. Will keep him in the hospital today and do some more therapy given a unit of blood. Hopefully he will be okay for discharge tomorrow with home health. (2) Acute kidney injury: (3) Status post kidney transplant: Admission and Anticipated Discharge Date Admission Date: May 24, 2024 Subjective 63-year-old male with multiple medical morbidities now postop day 2 from a right hybrid total hip replacement done for severe AVN and degenerative arthritis. He is doing well orthopedically. Pains controlled. He was fairly anemic but relatively asymptomatic. Heme-onc and nephrology has been consulted. His creatinine bumped up a bit but the looks improved today. Pain seems to be pretty well-controlled. Denies any chest pain or shortness of breath. Physical Exam Physical Exam: Physical examination was a pleasant middle-age male. He is lying in bed looks pretty comfortable. Right hip and leg reveals a Prevena VAC dressing in place. Leg lengths appear pretty equal. Thigh is soft and supple. He can dorsiflex and plantarflex his foot appropriately. He is neurologically intact. Results & Data Vital Signs (Past 12 Hours) Vital Signs Temp Pulse Resp BP Pulse Ox O2 Del Method 05/26/24 07:16 36.5 C 85 16 97/60 L 99 Room Air 05/25/24 21:24 Room Air 05/25/24 21:07 36.3 C L 98 H 16 114/73 95 Room Air Laboratory Results Hemoglobin is 7.1 this morning and a hematocrit of 22.0. Electrolytes look pr heather stable. The creatinine is improved at 1.87.
--- NOTE | 2024-05-26 08:20 | Hospitalist Progress Note ---
Date of Service May 26, 2024 Assessment & Plan (1) Status post right hip replacement: Plan: s/p p Right Total Hip Arthroplasty, Cemented(Right) - Thompson Morel MD on 05/24. EBL 200cc * Operative findings were advanced right hip DJD. He had complete flattening of the femoral head. It a very dysplastic enlarged acetabulum. Moderate-sized joint effusion. Severe external rotation contracture. WBC wnl, afebrile. VSS Hgb dropped from 9.5 on pre-op lab testing to 7.2 this morning Suspect acute blood loss from surgery as well as patient with hx warm AIHI followed by CCP/Dr Gonsalez and also hx renal transplant. (LDH elevated on preop testing this month), remains on prednisone 5mg daily and was given dexamethasone 10mg IV ordered by primary service. Is on iron 2 tablets BID. Discussed w/ Dr Gonsalez, NEEDS IRRADIATED blood, type/cross but NOT AVAILABLE UNTIL TOMORROW?? 05/26. Patient without CP/SOB/lightheaded/dizziness but does have KRISSY w/ Cr to 2.24 and nephrology consulted given transplant. . Did resume acyclovir 400mg BID as takes at home. Remains on tacrolimus. Appreciate nephrology recs/assistance Pain control/bowel regimen/PT/OT per primary service DVT proph w/ Xarelto ordered Will also consult Dr Gonsalez to follow along as discussed case with this morning 05/26 WBC elevation to 14k but did get dexamethasone and continued on home prednisone 5mg daily. Hgb 7.2 post-op, 7.1 last evening and remaining stable at 7.1 this morning with use of xarelto for DVT proph and suspect acute blood loss from surgery/dilutional aspect from IVF contributed in patient w/ hx AIHI and was 9.5 on pre-op labs. Awaiting 1u PRBC but had to be irradiated/leukoreduced with his history and should be arrived today for transfusion and suspect will assist w/ renal function as well. Denies CP/lightheaded/dizziness, no SOB at rest but did have a little shortness of breath when working with therapy similar to when blood counts low in the past and will monitor response to transfusion. Mag 1.3 yesterday, IV replacement ordered and wnl at 2.0 today. Is on mag oxide once daily at baseline/continued Nephrology consulted given renal transplant w/ Cr to 2.24 post-op but ?hypotension/anemia contributing. Cr improving, currently 1.87 today and will monitor response w/ blood, consideration for renal imaging per nephrology discretion PT/OT consults/post-op management per primary service. Hospitalist service will follow along. Please call with any questions/concerns. (2) Autoimmune hemolytic anemia: Plan: Diagnosed with autoimmune hemolytic anemia in January 2024, received blood transfusion, steroids, IVIG and discharged on prednisone taper Recently was on Velcade/held for surgery above and did not get this past week, follows with Dr Gonsalez. Recs for IRRADIATED BLOOD as above, type/cross, 1unit to transfuse now for hgb 7.1 but not having further acute drop given hgb last evening 7.1 as well. dexamethasone per primary 05/25, remains on daily prednisone Dr Gonsalez on consult, appreciated Outpt f/u with CCP (3) Status post kidney transplant: Plan: Acyclovir BID resumed, remains on tacrolimus/cellcept Cr 2.24, PRBC as above as suspect anemia leading to KRISSY and Cr is improved to 1.8 however awaiting PRBC as above Nephrology consulted given renal transplant. Appreciate recs/assistance (4) Coronary artery calcification: Plan: HX CAD, afib/flutter, HTN. Cardiac clearance in chart- Coronary Artery Calcifications, Atrial Fibrillation (diagnosed 2022)/Atrial Flutter January 2024, Thoracic Aortic Aneurysm (4.8 cm in January 2024), Renal Transplant (2009) with Autoimmune Hemolytic Anemia, CKD, Sleep Apnea (does not use CPAP), Atheros clerosis of the Aorta, GERD, Hypertension, TIA after dialysis in the past, and a Left Upper Extremity AV Fistula No CP reported PRBC as above ordered, to be transfused today Remains on toprol XL, xarelto for DVT proph as above and planning for XArelto for 1 month for DVT proph (5) Atrial fibrillation: Plan: hx afib but not able to be on eliquis in the past w/ reported anemia and remains on metoprolol 100mg HS and was given last evening (not given post-op due to hold parameters but HR to 90s last evening and requested to be given Continue metoprolol Mag replacement for 1.3 yesterday with 4gm IV, continues daily mag oxide. K stable Continue metoprolol On xarelto for DVT proph for hip as above (6) Rosales's esophagus with esophagitis: Plan: continue PPI BID, suspect contributes to hypomag. monitor mag in AM for completeness/consider increase if drops lower to keep stores replete (7) Hypothyroidism: Plan: continue Synthroid (8) Proteinuria: Plan: lisinopril at baseline w/ nephrology in the remote past but now off due to BP and need to continue metoprolol for HR control as above nephro consulted while inpatient as above (9) Hypomagnesemia: Plan: low, continue PO but ordering IV replacement given 1.5 on pre-op worse on repeat to 1.3. On PPI BID at baseline Mag 2.0 on repeat and will monitor Plan Thank you for allowing hospitalist service to participate in the care of Mr Mandel. Hospitalist service will follow along. Please call with any questions/concerns. Admission and Anticipated Discharge Date Admission Date: May 24, 2024 Supervising Physician Co-Signing Physician Notes The patient was not seen by me. The chart was reviewed. Case discussed with MASON French. Agree with assessment and plan Subjective Evaluated this morning, doing well. Sitting up in the recliner chair. No fever/chills, chest pain or shortness of breath at rest. No lightheaded/dizziness. He did note some shortness of breath working with therapy similar to when blood counts were low. PRBC to be here today, transfusion hopefully to start after lunch once antibody testing completed. Renal function improved but defer to nephrology if needing any imaging but suspect worsened renal function in setting of anemia and will plan to monitor renal function response to blood but nephrology to see if needing any allograft ultrasound. Appears to be keeping up with oral fluid and mag level normal on repeat. Questions/concerns addressed at this time. Physical Exam Physical Exam: General: 63yo male sitting up in recliner, NAD HEENT: head atraumatic, normocephalic, mmm, trachea midline Resp: even/unlabored, slightly diminished in the bases with faint expiratory wheezing, on room air CV: irregularly irregular, rates controlled 80s, +systolic murmur, trace LE edema bilaterally but no calf tenderness, pulses present LUE fistula noted GI:+BS, soft/NT ; no rainey MSK/Neuro: dressing/vac to RIGHT hip in place, compartments soft, appropriately tender to palpation, sensation intact/pulses present nonfocal/no slurred speech/facial droop Psych: AOx3, cooperative with exam Results & Data Results & Data Vital Signs (Past 12 Hours) Vital Signs Temp Pulse Resp BP Pulse Ox O2 Del Method 05/26/24 07:16 36.5 C 85 16 97/60 L 99 Room Air 05/25/24 21:24 Room Air 05/25/24 21:07 36.3 C L 98 H 16 114/73 95 Room Air Laboratory Results 05/26/24 05/25/24 05/25/24 Range/Units 06:07 19:05 08:15 WBC 14.09 H 11.24 H (4.8-10.8) K/ul RBC 1.92 L 1.84 L (4.70-6.10) M/uL Hgb 7.1 L 7.1 L (14.0-18.0) g/dl Hct 22.0 L 21.7 L (42.0-52.0) % MCV 114.6 H 117.9 H (80.0-100.0) fL MCH 37.0 H 38.6 H (25.0-34.0) pg MCHC 32.3 32.7 (32.0-36.0) g/dL RDW Std Deviation 54.4 H 55.5 H (36.4-46.3) fL RDW Coeff of Jaye 13.4 13.5 (11.5-14.5) % Plt Count 144 143 (130-400) K/uL MPV 10.2 10.4 (9.4-12.4) fL Sodium 136 (136-145) mmol/L Potassium 4.8 (3.5-5.1) mmol/L Chloride 107 (98-107) mmol/L Carbon Dioxide 22 (21-32) mmol/L Anion Gap 7 (3-11) BUN 40 H (6-23) mg/dl Creatinine 1.87 H D (0.6-1.4) mg/dl Est Cr Clr Drug Dosing 45.9 ml/min Est GFR ( Amer) 43.4 ml/min Est GFR (Non-Af Amer) 37.4 ml/min BUN/Creatinine Ratio 21.4 H (10-20) Glucose 125 H (70-99(Fasting)) mg/dl Calcium 8.6 (8.6-10.3) mg/dl Magnesium 2.0 (1.7-2.4) mg/dl Lactate Dehydrogenase 275 H (86-244) U/L Antibody ID Referred Antibody ID Comment TNP 05/22/24 Range/Units 10:18 WBC (4.8-10.8) K/ul RBC (4.70-6.10) M/uL Hgb (14.0-18.0) g/dl Hct (42.0-52.0) % MCV (80.0-100.0) fL MCH (25.0-34.0) pg MCHC (32.0-36.0) g/dL RDW Std Deviation (36.4-46.3) fL RDW Coeff of Jaye (11.5-14.5) % Plt Count (130-400) K/uL MPV (9.4-12.4) fL Sodium (136-145) mmol/L Potassium (3.5-5.1) mmol/L Chloride (98-107) mmol/L Carbon Dioxide (21-32) mmol/L Anion Gap (3-11) BUN (6-23) mg/dl Creatinine (0.6-1.4) mg/dl Est Cr Clr Drug Dosing ml/min Est GFR ( Amer) ml/min Est GFR (Non-Af Amer) ml/min BUN/Creatinine Ratio (10-20) Glucose (70-99(Fasting)) mg/dl Calcium (8.6-10.3) mg/dl Magnesium (1.7-2.4) mg/dl Lactate Dehydrogenase (86-244) U/L Antibody ID Referred Antibody ID Comment PG Care Time/CCT Total # of Minutes Spent Total Time Spent with Patient: Total time spent is greater than 50% in coordination of care (as documented) at patient's floor/unit and/or counseling patient: Coding Level of Care Code 92552 SUB INP/OBS CARE 3/50MIN Diagnoses Status post right hip replacement Z96.641 Autoimmune hemolytic anemia D59.10 Status post kidney transplant Z94.0 Coronary artery calcification I25.10 Atrial fibrillation, unspecified type I48.91 Atrial fibrillation type: unspecified Rosales's esophagus with esophagitis K22.70; K20.90 Other specified hypothyroidism E03.8 Hypothyroidism type: other Proteinuria R80.9 Hypomagnesemia E83.42 (5) Atrial fibrillation Atrial fibrillation type: unspecified Qualified Code(s): I48.91 - Unspecified atrial fibrillation (7) Hypothyroidism Hypothyroidism type: other Qualified Code(s): E03.8 - Other specified hypothyroidism
--- NOTE | 2024-05-26 11:28 | Nephrology Progress Note ---
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 Has decent allograft function, b/l cr 1.3-1.4 mg/dl. Has no history of diabetes, CHF or coronary artery disease. Had elective right hip arthroplasty on 05/24/24.postoperatively noted to have KRISSY with creatinine 2.2 and dropping hemoglobin to 7.2. Clinically otherwise staying stable although blood pressure has been relatively low and variable. Reports decent p.o. intake and voiding normally. Kidney function slightly improved, creatinine down to 1.9 mg/dl, electrolyte acceptable. Hemoglobin remains low at 7.1, no sign of any active bleeding, waiting on blood transfusion. --Encouraged to increase p.o. intake. --Waiting on blood transfusion for hb 7.1 with history of autoimmune hemolytic anemia and drop in hemoglobin. --continue on current dose of Prograf, goal trough 4-7. Admission and Anticipated Discharge Date Admission Date: May 24, 2024 Rocio Naik was seen and evaluated this morning. Overall he feels well. Hemoglobin remained low at 7.1, 1 PRBC was ordered yesterday but still waiting to receive the irradiated blood. Slight improvement in creatinine down to 1.9, electrolyte acceptable. Reports voiding normally. Decent p.o. intake. Blood pressure stable. Review of Systems Review of Systems: Detailed review of system was done and pertinent positives and negatives are mentioned above. Physical Exam Constitutional: WD/WN, vitals as above no acute distress Neck: normal visual inspection Respiratory: Auscultation: lungs clear to auscultation bilaterally Cardiovascular: RRR, no murmur, no edema Gastrointestinal (Abdomen): Inspection/Auscultation: abdomen normal to inspection Musculoskeletal: Extremities: extremities normal to inspection Skin: no rashes, warm and dry Neurologic: no focal motor deficits Psychiatric: Orientation: alert and oriented x 3 Affect: euthymic affect Results & Data Vital Signs (Past 12 Hours) Vital Signs Temp Pulse Resp BP Pulse Ox O2 Del Method 05/26/24 08:34 107/73 05/26/24 07:16 36.5 C 85 16 97/60 L 99 Room Air PG Care Time/CCT Total # of Minutes Spent Total Time Spent with Patient: Total time spent is greater than 50% in coordination of care (as documented) at patient's floor/unit and/or counseling patient: Coding Level of Care Code 75384 SUB INP/OBS CARE 2/35MIN Diagnoses Acute kidney injury N17.9 Status post kidney transplant Z94.0 Status post right hip replacement Z96.641 Hypomagnesemia E83.42 Anemia D50.9 Anemia type: iron deficiency Iron deficiency anemia type: unspecified iron deficiency (5) Anemia Anemia type: iron deficiency Iron deficiency anemia type: unspecified iron deficiency Qualified Code(s): D50.9 - Iron deficiency anemia, unspecified
[2024-05-27 08:01] LABS: Hematocrit (blood only) 21.4 % (42.0-52.0); Hemoglobin 7.1 g/dl (14.0-18.0)
[2024-05-27 08:25] LABS: BUN Creatinine Ratio 25.8 (10-20); Calcium 8.7 mg/dl (8.6-10.3); Est GFR (African American) 52.8 ml/min; Est GFR (Non-African American) 45.5 ml/min; Magnesium 1.8 mg/dl (1.7-2.4); Potassium 4.6 mmol/L (3.5-5.1)
--- NOTE | 2024-05-27 08:26 | Hospitalist Progress Note ---
Date of Service May 27, 2024 Assessment & Plan (1) Status post right hip replacement: Plan: s/p p Right Total Hip Arthroplasty, Cemented(Right) - Thompson Morel MD on 05/24. EBL 200cc * Operative findings were advanced right hip DJD. He had complete flattening of the femoral head. It a very dysplastic enlarged acetabulum. Moderate-sized joint effusion. Severe external rotation contracture. WBC wnl, afebrile. VSS Hgb dropped from 9.5 on pre-op lab testing to 7.2 this morning Suspect acute blood loss from surgery as well as patient with hx warm AIHI followed by CCP/Dr Gonsalez and also hx renal transplant. (LDH elevated on preop testing this month), remains on prednisone 5mg daily and was given dexamethasone 10mg IV ordered by primary service. Is on iron 2 tablets BID. Discussed w/ Dr Gonsalez, NEEDS IRRADIATED blood, type/cross but NOT AVAILABLE UNTIL TOMORROW?? 05/26. Patient without CP/SOB/lightheaded/dizziness but does have KRISSY w/ Cr to 2.24 and nephrology consulted given transplant. . Did resume acyclovir 400mg BID as takes at home. Remains on tacrolimus. Appreciate nephrology recs/assistance Pain control/bowel regimen/PT/OT per primary service DVT proph w/ Xarelto ordered Consult Dr Gonsalez to follow along as discussed case with prior. 05/26 WBC elevation to 14k, 2nd to steroids/dexamethason and afebrile Hgb 7.1, 1u PRBC, IRRADIATED transfused Mag 1.3--> 2.0. Continue mag oxide daily Nephrology on consult, Cr improved to 1.87 and making urine/waiting for blood 05/27 Hgb remaining at 7.1 today despite 1u PRBC yesterday -- message to Dr Gonsalez for discussion, did have elevated LDH to 275 but was also elevated pre-op. Do have an additional unit PRBC on hold to transfuse if needed and Dr Gonsalez will see the patient today as suspects allo immunized so not responding to transfusions and likely will be planning for IVIG 1g/kg for the next3-5 days and he will order once evaluated Cr improving, 1.59 and good PO intake/urine output and remaining clear per patient. Defer to Nephrology for any changes. Remains on metoprolol for rate control/prior dc lisinopril. BP acceptable Continued inpatient stay w/ management of anemia per hematology/nephrology Hospitalist service will follow along to help to coordinate care. Please contact with any questions/concerns. Dispo: home with home health services planned once anemia stable. (2) Autoimmune hemolytic anemia: Plan: Diagnosed with autoimmune hemolytic anemia in January 2024, received blood transfusion, steroids, IVIG and discharged on prednisone taper Recently was on Velcade/held for surgery above and did not get this past week, follows with Dr Gonsalez. Recs for IRRADIATED BLOOD as above, type/cross, 1unit to transfuse 05/26 as above Repeat hgb 7.1, management to be with IVIG per Dr Gonsalez who will order once eval Continue prednisone 5mg daily as previously on Will need ongoing follow up (3) Status post kidney transplant: Plan: Acyclovir BID resumed, remains on tacrolimus/cellcept. Nephrology consulted Cr 2.24, PRBC as above as suspect anemia leading to KRISSY and Cr is improved to 1.8 and is down to 1.59 (baseline ~1.3) and continued management/assistance appreciated (4) Coronary artery calcification: Plan: HX CAD, afib/flutter, HTN. Cardiac clearance in chart- Coronary Artery Calcifications, Atrial Fibrillation (diagnosed 2022)/Atrial Flutter January 2024, Thoracic Aortic Aneurysm (4.8 cm in January 2024), Renal Transplant (2009) with Autoimmune Hemolytic Anemia, CKD, Sleep Apnea (does not use CPAP), Atherosclerosis of the Aorta, GERD, Hypertension, TIA after dialysis in the past, and a Left Upper Extremity AV Fistula PRBC as above ordered for 05/26 , IVIG planned for today No CP/SOB reported, 99% on RA Remains on toprol XL, xarelto for DVT proph as above and planning for XArelto for 1 month for DVT proph (5) Atrial fibrillation: Plan: hx afib but not able to be on eliquis in the past w/ reported anemia and remains on metoprolol 100mg HS and was given last evening (not given post-op due to hold parameters but HR to 90s 05/25 and requested to be given and was done) Continue metoprolol, Mag replacement/stable on repeat and continues on mag o xide. K stable 4.6 Xarelto planned for DVT proph for hip HR controlled in the 70s. (6) Rosales's esophagus with esophagitis: Plan: continue PPI BID, suspect contributes to hypomag. No issues reported (7) Hypothyroidism: Plan: continue Synthroid (8) Proteinuria: Plan: lisinopril at baseline w/ nephrology in the remote past but now off due to BP and need to continue metoprolol for HR control as above nephro consulted while inpatient as above (9) Hypomagnesemia: Plan: low, continue PO but ordering IV replacement given 1.5 on pre-op worse on repeat to 1.3. On PPI BID at baseline Mag 1.8, will increase his PO supplementation to BID to keep stores stable Plan Thank you for allowing hospitalist service to participate in the care of Mr Mandel. Hospitalist service will follow along to ensure coordination of care/no issues. Please call with any questions/concerns. Admission and Anticipated Discharge Date Admission Date: May 24, 2024 Supervising Physician Co-Signing Physician Notes PA Supervision Note: I did not personally see or examine the patient today, but I verified all swanson points of MASON Groves's assessment and plan with the following exceptions/additions: None Subjective Evaluated this morning, sitting up in recliner chair. Pain controlled. Denies significant SOB, even with ambulation however hgb 7.1 again today and discussed I spoke with Dr Gonsalez and planning for tx with IVIG and monitoring response but likely would not dc today until improvement in counts. Nephrology on consult, renal function improved and patient reporting good urine output/clear yellow in color. Encouraged pushing PO fluids. Moved bowels 2 day ago and took softener this morning . Good bowel sounds on exams. Questions/concerns addressed at this time. Physical Exam Physical Exam: General: 63yo male sitting up in recliner, NAD HEENT: head atraumatic, normocephalic, mmm, trachea midline Resp: even/unlabored, slightly diminished in the bases with faint expiratory wheezing, on room air CV: irregularly irregular, rates controlled 70-80s, +systolic murmur, trace LE edema bilaterally but no calf tenderness, pulses present LUE fistula noted GI:+BS, soft but slight distension however good bowel sounds throughout/nontender to palpation ; no rainey MSK/Neuro: dressing/vac to RIGHT hip in place, compartments soft, appropriately tender to palpation, sensation intact/pulses present nonfocal/no slurred speech/facial droop Psych: AOx3, cooperative with exam Results & Data Results & Data Vital Signs (Past 12 Hours) Vital Signs Temp Pulse Resp BP Pulse Ox O2 Del Method 05/27/24 07:00 36.6 C 70 16 101/68 99 Room Air Laboratory Results 05/27/24 05/25/24 Range/Units 07:12 08:15 Hgb 7.1 L (14.0-18.0) g/dl Hct 21.4 L (42.0-52.0) % Sodium 137 (136-145) mmol/L Potassium 4.6 (3.5-5.1) mmol/L Chloride 108 H (98-107) mmol/L Carbon Dioxide 23 (21-32) mmol/L Anion Gap 6 (3-11) BUN 41 H (6-23) mg/dl Creatinine 1.59 H (0.6-1.4) mg/dl Est Cr Clr Drug Dosing 54.0 ml/min Est GFR ( Amer) 52.8 ml/min Est GFR (Non-Af Amer) 45.5 ml/min BUN/Creatinine Ratio 25.8 H (10-20) Glucose 94 (70-99(Fasting)) mg/dl Calcium 8.7 (8.6-10.3) mg/dl Magnesium 1.8 (1.7-2.4) mg/dl Blood Type A Positive Antibody Screen POSITIVE A Antibody Identification Auto Gil Agglutinin Antibody ID Comment TNP Crossmatch See Detail PG Care Time/CCT Total # of Minutes Spent Total Time Spent with Patient: Total time spent is greater than 50% in coordination of care (as documented) at patient's floor/unit and/or counseling patient: Coding Level of Care Code 04946 SUB INP/OBS CARE 2/35MIN Diagnoses Status post right hip replacement Z96.641 Autoimmune hemolytic anemia D59.10 Status post kidney transplant Z94.0 Coronary artery calcification I25.10 Atrial fibrillation, unspecified type I48.91 Atrial fibrillation type: unspecified Rosales's esophagus with esophagitis K22.70; K20.90 Other specified hypothyroidism E03.8 Hypothyroidism type: other Proteinuria R80.9 Hypomagnesemia E83.42 (5) Atrial fibrillation Atrial fibrillation type: unspecified Qualified Code(s): I48.91 - Unspecified atrial fibrillation (7) Hypothyroidism Hypothyroidism type: other Qualified Code(s): E03.8 - Other specified hypothyroidism
--- NOTE | 2024-05-27 10:32 | Nephrology Progress Note ---
Date of Service May 27, 2024 Assessment & Plan (1) Acute kidney injury: Plan: Creatinine trending down with supportive care (notably PRBC transfusion support). KRISSY attributed to hemodynamic changes and acute anemia. Creatinine improving. Non-oliguric. [employer] not required. (2) Status post kidney transplant: Plan: Continue tacrolimus and Cellcept as Rx. Steroids may be adjusted as needed per any hematology recs. Allograft function improving. Electrolytes acceptable. Medications appropriately dosed for kidney function. ESRD 2 FSGS. LURTx. Baseline creatinine 1.3-1.4 mg/dL. (3) Status post right hip replacement: Plan: POD #3. (4) Warm autoimmune hemolytic anemia: Plan: Hematology following. PRBC transfusion provided yesterday. Additional recs pending. (5) Symptomatic anemia: Plan: PRBC x 1 unit provided yesterday. Hgb stable. (6) Benign essential hypertension: Plan: Euvolemic. BP acceptable. Lisinopril held due to KRISSY. Admission and Anticipated Discharge Date Admission Date: May 24, 2024 Subjective No acute events overnight. Gumaro was out of bed with PT this morning. He reports some continued weakness but otherwise feels well. Denies fluid retention or edema. He does not endorse significant pain. Review of Systems Review of Systems: All systems reviewed & are unremarkable except as noted in HPI & below Physical Exam Constitutional: well developed; no acute distress Eyes: no scleral abnormality and no corneal abnormality ENMT: Mouth: no oral mucosal abnormality and oral mucous membranes not dry Neck: normal visual inspection and trachea midline Respiratory: normal respiratory effort Auscultation: lungs clear to auscultation bilaterally Cardiovascular: Rate/Rhythm: regular rate Heart Sounds: normal S1 and normal S2 Extremities: + AV fistula; no edema Musculoskeletal: Extremities: no cyanosis and no clubbing Skin: normal turgor; no lesions Neurologic: Motor/Sensory: no tremor and no asterixis Psychiatric: Orientation: alert and oriented x 3 Results & Data Vital Signs (Past 12 Hours) Vital Signs Temp Pulse Resp BP Pulse Ox O2 Del Method 05/27/24 07:00 36.6 C 70 16 101/68 99 Room Air Laboratory Results Laboratory Results - last 24 hr 05/25/24 05/27/24 08:15 07:12 Hgb 7.1 L Hct 21.4 L Sodium 137 Potassium 4.6 Chloride 108 H Carbon Dioxide 23 Anion Gap 6 BUN 41 H Creatinine 1.59 H Est Cr Clr Drug Dosing 54.0 Est GFR ( Amer) 52.8 Est GFR (Non-Af Amer) 45.5 BUN/Creatinine Ratio 25.8 H Glucose 94 Calcium 8.7 Magnesium 1.8 Blood Type A Positive Antibody Screen POSITIVE A Antibody Identification Auto Gil Agglutinin Antibody ID Comment TNP Crossmatch See Detail PG Care Time/CCT Total # of Minutes Spent Total Time Spent with Patient: Total time spent is greater than 50% in coordination of care (as documented) at patient's floor/unit and/or counseling patient: Coding Level of Care Code 37309 SUB INP/OBS CARE 3/50MIN Diagnoses Acute kidney injury N17.9 Status post kidney transplant Z94.0 Status post right hip replacement Z96.641 Warm autoimmune hemolytic anemia D59.11 Symptomatic anemia D64.9 Benign essential hypertension I10
[2024-05-27] MEDS ORDERED: SODIUM CHLORIDE 0.9% 250 ML IV PRN (12:59)
[2024-05-27] MEDS: Octagam 10% IVIG 20 gram bottle IV SCH (17:11)
[2024-05-27] MEDS: MAGNESIUM OXIDE 400 MG TAB PO SCH (21:01)
[2024-05-28 06:33] LABS: Hematocrit (blood only) 25.3 % (42.0-52.0); Hemoglobin 8.3 g/dl (14.0-18.0)
[2024-05-28 06:44] LABS: BUN Creatinine Ratio 23.7 (10-20); Calcium 8.6 mg/dl (8.6-10.3); Creatinine Clr Calc Pharmacy 56.5 ml/min; Est GFR (African American) 55.7 ml/min; Est GFR (Non-African American) 48.1 ml/min; Magnesium 1.6 mg/dl (1.7-2.4); Potassium 4.5 mmol/L (3.5-5.1)
--- NOTE | 2024-05-28 07:43 | Hematology/Oncology Prog Note ---
Date of Service May 28, 2024 Assessment & Plan (1) Autoimmune hemolytic anemia: Plan: Continue IVIg 1g/kg every day. Okay to discharge. Follow up in clinic to resume velcade. Plan Hematology will continue to follow the patient and make appropriate recommendations. Admission and Anticipated Discharge Date Admission Date: May 27, 2024 Subjective patient continues to do well, currently is doing very well. He has been started on IVIG and also received another packed unit of red blood cells. Hemoglobin is now improved to 8.3 g/dL. No active bleeding or bruising Review of Systems Review of Systems: All systems reviewed & are unremarkable except as noted in HPI & below Constitutional: as per Subjective / HPI Eyes: as per Subjective / HPI Ear, Nose, Mouth, Throat: as per Subjective / HPI Respiratory: as per Subjective / HPI Cardiovascular: as per Subjective / HPI Gastrointestinal: as per Subjective / HPI Genitourinary: + as per Subjective / HPI Musculoskeletal: as per Subjective / HPI Integumentary: as per Subjective / HPI Physical Exam Constitutional: WD/WN, vitals as above Eyes: PERRL, conjunctivae normal, anicteric sclerae ENMT: external ear and nose normal, oropharynx normal Neck: trachea midline, no thyromegaly Respiratory: normal respiratory effort, lungs clear to auscultation Cardiovascular: RRR, no murmur, no edema Gastrointestinal (Abdomen): normal bowel sounds, soft, nontender, no hepatosplenomegaly Musculoskeletal: no cyanosis or clubbing, extremities motor strength 5/5 Skin: no rashes, warm and dry Neurologic: patellar DTR's 2+ bilat, sensation intact Psychiatric: A+Ox3, euthymic affect Results & Data Vital Signs (Past 12 Hours) Vital Signs Temp BP 05/27/24 19:53 36.6 C 110/72
[2024-05-28] MEDS ORDERED: IMMUNE GLOBULIN (HUMAN) SOLN IV SCH (09:00)
--- NOTE | 2024-05-28 10:27 | Nephrology Progress Note ---
Date of Service May 28, 2024 Assessment & Plan (1) Acute kidney injury: Plan: Creatinine trending down with supportive care. KRISSY attributed to hemodynamic changes and acute anemia. Please repeat a metabolic profile within 1 week of discharge. Follow up with Dr. Oro in the nephrology clinic in the next 2-3 weeks. (2) Status post kidney transplant: Plan: Continue tacrolimus and Cellcept as Rx. Allograft function improving. Electrolytes acceptable. Medications appropriately dosed for kidney function. ESRD 2 FSGS. LURTx. Baseline creatinine 1.3-1.4 mg/dL. (3) Status post right hip replacement: Plan: POD #4. (4) Warm autoimmune hemolytic anemia: Plan: Hematology following. IVIG started. Improvement noted PRBC transfusion provided 05/26. (5) Benign essential hypertension: Plan: Euvolemic. BP acceptable. Lisinopril held due to KRISSY. Admission and Anticipated Discharge Date Admission Date: May 27, 2024 Subjective No acute events overnight. Gumaro feels well this AM. Improved sleep. He states that he can tell his hemoglobin has improved. He feels better. Otherwise, no complaints. He would like to go home. Review of Systems Review of Systems: All systems reviewed & are unremarkable except as noted in HPI & below Physical Exam Constitutional: well developed; no acute distress Eyes: no scleral abnormality and no corneal abnormality ENMT: Mouth: no oral mucosal abnormality and oral mucous membranes not dry Neck: normal visual inspection and trachea midline Respiratory: normal respiratory effort Auscultation: lungs clear to auscultation bilaterally Cardiovascular: Rate/Rhythm: regular rate Heart Sounds: normal S1 and normal S2 Extremities: + AV fistula; no edema Musculoskeletal: Extremities: no cyanosis and no clubbing Skin: normal turgor; no lesions Neurologic: Motor/Sensory: no tremor and no asterixis Psychiatric: Orientation: alert and oriented x 3 Results & Data Vital Signs (Past 12 Hours) Vital Signs Temp Pulse Resp BP Pulse Ox O2 Del Method 05/28/24 07:54 36.7 C 73 16 118/76 96 Room Air Laboratory Results Laboratory Results - last 24 hr 05/25/24 05/28/24 08:15 05:45 Hgb 8.3 L Hct 25.3 L Sodium 134 L Potassium 4.5 Chloride 106 Carbon Dioxide 23 Anion Gap 5 BUN 36 H Creatinine 1.52 H Est Cr Clr Drug Dosing 56.5 Est GFR ( Amer) 55.7 Est GFR (Non-Af Amer) 48.1 BUN/Creatinine Ratio 23.7 H Glucose 97 Calcium 8.6 Magnesium 1.6 L Blood Type A Positive Antibody Screen POSITIVE A Antibody Identification Auto Gil Agglutinin Antibody ID Referred Antibody ID Comment TNP Crossmatch See Detail PG Care Time/CCT Total # of Minutes Spent Total Time Spent with Patient: Total time spent is greater than 50% in coordination of care (as documented) at patient's floor/unit and/or counseling patient: Coding Level of Care Code 78733 SUB INP/OBS CARE 3/50MIN Diagnoses Acute kidney injury N17.9 Status post kidney transplant Z94.0 Status post right hip replacement Z96.641 Warm autoimmune hemolytic anemia D59.11 Benign essential hypertension I10
--- NOTE | 2024-05-28 13:27 | Orthopedic Progress Note ---
Date of Service May 28, 2024 Assessment & Plan (1) Status post right hip replacement: Plan: 63-year-old male with multiple medical comorbidities status post a right hybrid total hip replacement doing well orthopedically.'s been medical issues including anemia that did not seem to be improving. He did have a acute injury to his kidney related to volume and anemia likely. There is anemia is improved. I will relatively asymptomatic. Renal function is improving. His pain is controlled. Hips located. He is neurologically intact. Plan: At this point were going to let him progress activities as per PT. He needs to obey hip precautions. DVT prophylaxis will include thigh-high teds, SCDs, and Xarelto for 30 days. He will follow-up with hematology clinic as needed. He is hoping to go home today. He is orthopedically ready for discharge as long as medically okay. Appears medically stable. He will follow back my clinic in 2 weeks. (2) Acute kidney injury: Admission and Anticipated Discharge Date Admission Date: May 27, 2024 Subjective 63-year-old gentleman with multiple medical comorbidities status post a hybrid total hip arthroplasty. He is doing well today. Pains controlled. Therapy is going well. He has been given 2 units of blood now. He has been feeling fine. Never really symptomatic. Denies any chest pain or shortness of breath. Physical Exam Physical Exam: Physical examination was a pleasant middle-age male. He was walk around his room when I visited him this morning with his walker. Examination of the hip reveals the dressing to be clean dry and intact. He has a Prevena VAC in place. Thigh is soft and supple. He can dorsiflex and plantarflex his foot appropriately. He is neurologically intact. Results & Data Vital Signs (Past 12 Hours) Vital Signs Temp Pulse Pulse Resp BP Pulse Ox O2 Del Method 05/28/24 10:56 36.6 C 77 14 115/76 100 Room Air 05/28/24 07:54 36.7 C 73 16 118/76 96 Room Air Laboratory Results Hemoglobin is up to 8.3. Hematocrit is 25.3. Creatinine is improved at 1.52
[2024-05-28 15:16] VITALS: BP 127/90; PULSE 87; RESP 16; TEMP 97.3; O2SAT 99
--- NOTE | 2024-05-28 21:46 | Communication Note ---
Date of Service: May 28, 2024 Patient discharged prior to being seen by hospitalist service. However, labs were reviewed, and I discussed potential discharge with Dr. Gonsalez regarding hgb and continued IVIG. Dr. Gonsalez reported patient is medically stable for discharge and heme/onc will arrange for follow-up later this week to continue patient's treatment of hemolytic anemia.
== END 2024-05-28 16:51 | disposition home health service (06) | DRG 470 ==
LOC: 3N 10:00 → ASU 10:00

== ENCOUNTER 2024-07-13 10:22 | Inpatient (IN) ==
[2024-07-13 11:10] LABS: Base Excess VBG -4.2 mEq/L; HCO3 VBG 21 mmol/L; Oxygen Saturation VBG < 60.0 %; PCO2 VBG 38 mmHg (38-50); PO2 VBG 24 mmHg; pH VBG 7.35 (7.36-7.41)
--- NOTE | 2024-07-13 11:19 | XRay Report ---
SINGLE VIEW CHEST CLINICAL HISTORY: Dyspnea FINDINGS: An AP, portable, upright chest radiograph is compared to study dated 01/21/2024 and correlate d with chest CT dated 06/27/2024. The heart is markedly enlarged. There is pulmonary vascular congest ion. Airspace opacities are seen bilaterally. Atelectasis is noted at the lung bases. No large pleura l effusion or pneumothorax is seen. The skeletal structures are osteopenic. There is chronic deformit y of the left clavicle. IMPRESSION: 1. Cardiomegaly with evidence of congestive failure. 2. Bilateral airspace opacities likely represent pulmonary edema. Correlate clinically for evidence o f a superimposed pneumonitis. Radiographic follow-up to resolution is recommended ACT 112: Negative or not required by law. Electronically signed by: Jay Lewis M.D. 07/13/2024 11:17 AM
[2024-07-13 11:33] LABS: BUN Creatinine Ratio 30.1 (10-20); Bilirubin Direct 2.1 mg/dl (0-0.2); Bilirubin,Total 6.5 mg/dl (0.2-1.0); Calcium 9.3 mg/dl (8.6-10.3); Creatinine Clr Calc Pharmacy 55.3 ml/min; Magnesium 1.4 mg/dl (1.7-2.4); Potassium 4.1 mmol/L (3.5-5.1); Total Protein 6.7 gm/dl (6.0-8.3)
[2024-07-13 11:39] LABS: Troponin I High Sensitivity 27.7 pg/ml (0-20)
[2024-07-13 11:48] LABS: INR 1.2 (0.9-1.1); Partial Thromboplastin Time 27 Seconds (21-31); Prothrombin Time 12.5 Seconds (9.0-12.0)
[2024-07-13 11:53] LABS: Basophils # (auto) 0.04 K/uL (0.00-0.20); Basophils % (auto) 0.4 %; Hematocrit (blood only) 24.9 % (42.0-52.0); Hemoglobin 7.6 g/dl (14.0-18.0); Immature Granulocytes # (auto) 0.06 K/uL (0.01-0.20); Immature Granulocytes % (auto) 0.6 %; Lymphocytes # (auto) 0.32 K/uL (1.20-3.40); Lymphocytes % (auto) 3.2 %; Macrocytosis Present; Mean Corpuscular Hemoglobin 37.8 pg (25.0-34.0); Mean Corpuscular Hgb Conc 30.5 g/dL (32.0-36.0); Mean Corpuscular Volume 123.9 fL (80.0-100.0); Monocytes # (auto) 0.86 K/uL (0.11-0.59); Monocytes % (auto) 8.5 %; Neutrophils # (auto) 8.75 K/uL (1.40-6.50); Neutrophils % (auto) 86.3 %; Platelet Count 163 K/uL (130-400); Polychromasia 1+; RDW Coefficient of Variation 14.4 % (11.5-14.5); RDW Standard Deviation 64.5 fL (36.4-46.3); Red Blood Count 2.01 M/uL (4.70-6.10); White Blood Count 10.13 K/ul (4.8-10.8)
[2024-07-13] MEDS: MAGNESIUM SULFATE / D5W 1 GM/100 ML BAG IV SCH (11:58)
[2024-07-13 12:19] LABS: Adenovirus PCR Not Detected (NotDetected); Bordetella parapertussis PCR Not Detected (NotDetected); Bordetella pertussis PCR Not Detected (NotDetected); Chlamydia pneumoniae PCR Not Detected (NotDetected); Coronavirus 229E PCR Not Detected (NotDetected); Coronavirus CoV-2 (COVID19)PCR Not Detected (NotDetected); Coronavirus HKU1 PCR Not Detected (NotDetected); Coronavirus NL63 PCR Not Detected (NotDetected); Coronavirus OC43PCR Not Detected (NotDetected); Human Metapneumovirus PCR Not Detected (NotDetected); Influenza A PCR Not Detected (NotDetected); Influenza B PCR Not Detected (NotDetected); Mycoplasma pneumoniae PCR Not Detected (NotDetected); Parainfluenza Virus 1 PCR Not Detected (NotDetected); Parainfluenza Virus 2 PCR Not Detected (NotDetected); Parainfluenza Virus 3 PCR Not Detected (NotDetected); Parainfluenza Virus 4 PCR Not Detected (NotDetected); Respiratory Syncytial VirusPCR Not Detected (NotDetected); Rhinovirus/Enterovirus PCR Not Detected (NotDetected)
[2024-07-13] MEDS ORDERED: SODIUM CHLORIDE 0.9% 100 ML IV PRN (12:45)
--- NOTE | 2024-07-13 12:48 | Ultrasound Report ---
ULTRASOUND BILATERAL LOWER EXTREMITY VENOUS CLINICAL HISTORY: Lower extremity edema. COMPARISON STUDY: Bilateral lower extremity venous ultrasound dated 01/23/2024 TECHNIQUE: Real-time, grayscale, and color Doppler sonography of the deep veins of the right and left lower extremity was performed from the inguinal crease to the calf. Compression and augmentation wer e utilized. FINDINGS: There is no sonographic evidence of deep venous thrombosis identified in the right or left lower extremity. The common femoral, superficial femoral, and popliteal veins are patent and normally compressible bilaterally. The greater saphenous vein and the profunda femoris vein at the junction w ith the common femoral vein are clear in both legs. The visualized calf veins are patent bilaterally. Soft tissue edema is noted in both legs. IMPRESSION: There is no sonographic evidence of deep venous thrombosis identified in the right or lef t lower extremity. ACT 112: Negative or not required by law. Electronically signed by: Jay Lewis M.D. 07/13/2024 12:47 PM
[2024-07-13] MEDS: FUROSEMIDE 40 MG/4 ML VIAL IV ONE (12:57)
--- NOTE | 2024-07-13 13:19 | History & Physical Report ---
Date of Service July 13, 2024 Assessment & Plan (1) Acute kidney injury: (2) Hyperlipidemia: (3) Hypothyroidism: (4) Atrial fibrillation: (5) Warm autoimmune hemolytic anemia: (6) Hx of kidney transplant: (7) Hypomagnesemia: (8) Acute exacerbation of CHF (congestive heart failure): Plan This is a 63 y/o male presenting with SOB/STOCK in the setting of AIHA with Hgb of 7.6, as well as with mild KRISSY and volume overload likely due to HFpEF. 1) Low Hgb in setting of AIHA -- no acute distress at this time -Patient is awaiting t/f of 1 U of appropriately screened blood (has antibodies due to multiple prior transfusions) -- likely will arrive overnight/in AM -Monitor H/H post transfusion -Patient is on Acyclovir for prophylaxis while on Velcade he states (receives infusion every other week); will continue per home dose 2) Exacerbation of HFpEF -Admit to tele -Monitor serial troponins -Repeat Echo/TTE given elevated BNP and signficant symptoms; did have one in 01/2024 -Daily weights, strict I/O -Patient received a dose of IV Lasix 40 mg in ER; Likely will need more diuresis given the vol o/l, will start on 40 mg IV daily, but would monitor Cr closely corona due to his elevated Cr and his history of transplant -Cont B fely, Metoprolol ER 100 mg daily -Cardiac diet [Fluid restriction] -Cardiology consult if needed 3) s/p Renal transplant with KRISSY -Monitor Cr daily -Will send for Mycophenolate and Tacrolimus levels (added to today's labs) -Will continue Mycophenolate 500 BID per home dose -Will continue Tacrolimus 3 mg daily per home dose -Will continue his Prednisone 5 mg daily per home dose 4) Hypo-Mg -Patient repleted in ER; repeat Mg level in AM -Cont home Mg supplement 500 mg Hs -Will be on tele 5) Hypothyroidism -Cont synthroid 125 mcg daily 6) CAD/HLD -Cont Metoprolol ER daily 100 mg as above -Patient currently not on ASA or on a Statin 7) A fib/flutter -Metoprolol as above -Patient not on any blood thinners at this time; may be reasonable to touch base with his child nutrition director during this admission to see if any plan of resuming anticoagulation in the future 8) Gout -cont allopurinol 200 mg daily 9) DVT PPx -- Given low H/H, will start on SCDs for now; consider transitioning to Heparin/Lovenox if H/H improved after t/f and patient to be here longer than 1 day 10) Code Status -- full code History of Present Illness Chief Complaint: Dyspnea on exertion Primary Care Provider: Santos Rivers MD This is a 63 y/o male with MHx significant for renal transplant (on prednisone, tacrolimus, and mycophenolate), warm autoimmune hemolytic anemia (multiple blood transfusions), CAD/HLD, prior CVA, A fib (NOT on any anticoagulants at this time), HTN, and hypothyroidism among other medical conditions who comes in with SOB. Patient states that he recently had R MULUGETA about 05/24/2024. After the surgery, he states he has been recovering quite well. He did have a blood transfusion while he was in the hospital on 05/30. He did develop a flare of gout ~05/31 fr which his PCP had put him on a course of steroids (tapered over 2 weeks, now down to his baseline dose). He was also started on allopurinol at that time. Since the gout flare, he had been doing better. 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 He was scheduled for f/u this upcoming Sunday 07/15 for repeat bloodwork with possible transfusion on Tuesday 07/17. However, he noticed that in the past several days he has developed increased STOCK. It appears to resolved with rest, but has been getting progressively worse, especially since . Given hat symptoms were similar to past instances in which his H/H has been down, he decided to come in for evaluation and possible transfusion. Patient does note that in addition to his breathing symptoms, his b/l LE appear somewhat more swollen. Patient denies any chest pain or palpitations. Patient denies any blood in stool or melena. Patient denies n/v. He has been having some diarrhea. Denies f/c. Denies cough. Denies CP. Has been taking all his transplant medications as prescribed. Patient notes that he is NOT on any blood thinners at this time for his A fib. He states that he had been on Eliquis previously, but that was stopped. He also states that he was on Xarelto 10 mg daily for 1 month after the R hip surgery, but that has now been stopped as well. Allergies Allergy/AdvReac Type Severity Reaction Status Date / Time clopidogrel [From Plavix] Allergy Unknown Unknown Verified 05/24/24 10:19 Eonznbh-KDC-EhK Reductase AdvReac Intermediate myalgias Verified 05/24/24 10:19 Inhibitor [Mxjcedz-Dmb-Czj Reductase Inhibitor] Home Medications Medication Instructions Recorded Confirmed Type mycophenolate mofetil 250 mg 500 mg (2 x 250 mg) PO BID #360 05/29/20 07/13/24 Rx capsule caps amoxicillin 500 mg capsule 2,000 mg PO DIRECTED PRN PRIOR 07/29/20 07/13/24 History TO DENTAL PROCEDURES multivitamin 1 tab PO QAM 08/02/21 07/13/24 History magnesium oxide 500 mg PO HS 09/04/23 07/13/24 History folic acid 1 mg tablet 1 mg PO BID #180 tabs 09/20/23 07/13/24 Rx pantoprazole 40 mg tablet,delayed 40 mg PO BID #180 tabs 12/06/23 07/13/24 Rx release calcium carbonate 500 mg PO QAM 01/21/24 07/13/24 History ferrous sulfate 325 mg (65 mg 325 mg PO BID #60 tabs 02/05/24 07/13/24 Rx iron) tablet prednisone 5 mg tablet 5 mg PO DAILY #90 tabs 02/27/24 07/13/24 Rx levothyroxine 125 mcg tablet 125 mcg PO QAM #90 tabs 03/04/24 07/13/24 Rx tacrolimus 1 mg capsule, 3 mg PO DAILY 04/16/24 07/13/24 History immediate-release metoprolol succinate 100 mg 100 mg PO HS #90 tabs 04/22/24 07/13/24 Rx tablet,extended release 24 hr acyclovir 400 mg tablet 400 mg PO BID 05/07/24 07/13/24 History ondansetron 4 mg disintegrating 4 mg PO Q8 PRN nausea #20 tabs 05/22/24 07/13/24 Rx tablet allopurinol 100 mg tablet 200 mg (2 x 100 mg) PO DAILY #60 06/03/24 07/13/24 Rx tabs Past Med/Surg History Problem List (Updated 07/13/24 @ 14:04 by Bhupinder Acosta MD) Acute exacerbation of CHF (congestive heart failure) Acute kidney injury Hypomagnesemia Status post right hip replacement LVH (left ventricular hypertrophy) Coronary artery calcification 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 Status post kidney transplant On prednisone therapy Ground glass opacity present on imaging of lung Rosales's esophagus with esophagitis Macrocytic anemia Erosive esophagitis EGD 08/2023 Abnormal findings on diagnostic imaging of other abdominal regions, including retroperitoneum Arthritis of right hip Atrial fibrillation controlled w/ metoprolol Eliquis recently DC'ed during Nov hospital visit due to anemia issues, no pacer Hip arthritis Adrenal nodule CO PCP considering adrenal protocol CT or MRI for characterization Herpetic maria Aneurysm Abnormal LFTs Pneumonia Acute non-ST elevation myocardial infarction (NSTEMI) (Acute) 01/31/23 Megaloblastic anemia (Acute) Cerumen impaction Retroperitoneal mass lesion biopsy negative for malignancy 05/2022 per transplant record 03/17/23 Hypotension Diarrhea Adenomatous polyps Vitamin D deficiency Chronic kidney disease, stage 3a COVID-19 (Acute) Acute respiratory failure with hypoxemia (Acute) 07/29/20 Anemia (Chronic) hospitalized at [facility] 07/2023, received blood transfusion 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 History of esophageal reflux (Chronic) controlled, stable per pt Hyperlipidemia (Chronic) Hypothyroidism (Chronic) Obesity (Chronic) Osteoporosis (Chronic) Proteinuria (Chronic) Medical History Encounter for pre-operative examination History of non-ST elevation myocardial infarction (NSTEMI) entered into chart 01/2023 Osteoporosis Hypothyroidism Hyperlipidemia Hx of esophageal reflux controlled, stable per pt 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 Abdominal aortic aneurysm 4.9 cm on 01/2023 chest CTA CKD (chronic kidney disease) History of colon polyps Retroperitoneal mass lesion biopsy negative for malignancy 05/2022 per transplant record 03/17/23 Pneumonia HX Adrenal nodule monitored by PCP Arthritis On prednisone therapy Atrial fibrillation controlled w/ metoprolol, no cardio Rosales's esophagus with esophagitis Atrial flutter unaware Autoimmune hemolytic anemia follows franck/ Dr Gonsalez Warm autoimmune hemolytic anemia Sleep apnea no device Thoracic ascending aortic aneurysm 4.[address] 01/19/24 Hypertension controlled, stable per pt Limb alert care status left arm restriction History of blood transfusion 01/2024 Hx of herpetic maria History of COVID-19 07/2020- covid pneumonia, hospitalized; resolved History of renal dialysis prior to kidney transplant; has dialysis fistula left arm History of CVA (cerebrovascular accident) 2008, mild memory changes Surgical History History of esophagogastroduodenoscopy (EGD) Hx of cholecystectomy Hx of exploratory laparotomy Hx of kidney transplant 02/2010- [facility] [place] History of colonoscopy Family History Grandmother (Maternal) Alzheimer disease Mother Depression Denies family history of Ovarian cancer Prostate cancer Diabetes Heart disease Myocardial infarction Breast cancer Lung cancer COPD (chronic obstructive pulmonary disease) Colorectal cancer Hypertension Stroke Social History Smoking Status: Never smoker Second Hand Exposure: No; Do You Dip or Chew Tobacco: No; Hx Alcohol Use: No Hx Substance Use: No 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: Argentine Communication Ability: Effective Visual Impairment: No Limitations Hearing Ability: Normal Recruiting And Selection Consultant Required: No Beliefs That Will Affect Care: None marital status: Current Living Situation: Spouse current occupational status: employed current occupation: [employer] How many Children do You have: 1 Feels Safe at Home: Yes Childhood Exposure to Second-Hand Smoke: No Dental Care, Regularly: Yes Seatbelt Use: sometimes Sunscreen Use: No Assistive Devices: Cane and Walker Review of Systems Review of Systems: All systems reviewed & are unremarkable except as noted in HPI & below Cardiovascular: + dyspnea on exertion and + edema Physical Exam Constitutional: WD/WN, vitals as above Eyes: PERRL, conjunctivae normal, anicteric sclerae Neck: trachea midline, no thyromegaly Cardiovascular: Rate/Rhythm: + irregularly irregular Heart Sounds: no gallop, no murmur and no cardiac rub Extremities: + pedal edema and + edema Gastrointestinal (Abdomen): normal bowel sounds, soft, nontender, no hepatosplenomegaly Musculoskeletal: Extremities: strength 5/5 throughout Skin: no rashes, warm and dry Neurologic: patellar DTR's 2+ bilat, sensation intact and PERRL, EOMI, accommodation nl, no face palsy, no dysarthria Gait: + gait assisted Results & Data Results & Data Vital Signs (Past 12 Hours) Vital Signs Temp Pulse Pulse Resp BP BP Pulse Ox 07/13/24 12:48 86 18 130/93 100 07/13/24 12:13 84 07/13/24 11:25 100 07/13/24 11:08 07/13/24 10:45 07/13/24 10:29 37.3 C 100 H 18 125/83 98 O2 Del Method O2 Flow Rate 07/13/24 12:48 Room Air 07/13/24 12:13 07/13/24 11:25 Room Air 0 07/13/24 11:08 Room Air 07/13/24 10:45 Room Air 07/13/24 10:29 Room Air Laboratory Results 07/13/24 07/13/24 11:13 10:54 WBC 10.13 RBC 2.01 L Hgb 7.6 L Hct 24.9 L MCV 123.9 H MCH 37.8 H MCHC 30.5 L D RDW Std Deviation 64.5 H RDW Coeff of Jaye 14.4 Plt Count 163 MPV 10.0 Immature Gran % (Auto) 0.6 Neut % (Auto) 86.3 Lymph % (Auto) 3.2 Lipscomb % (Auto) 8.5 Eos % (Auto) 1.0 Baso % (Auto) 0.4 Neut # (Auto) 8.75 H Lymph # (Auto) 0.32 L Lipscomb # (Auto) 0.86 H Eos # (Auto) 0.10 Baso # (Auto) 0.04 Immature Gran # (Auto) 0.06 Polychromasia 1+ Macrocytosis Present PT 12.5 H INR 1.2 H APTT 27 PTT Ratio 1.0 VBG pH 7.35 L VBG pCO2 38 VBG pO2 24 VBG HCO3 21 VBG O2 Saturation < 60.0 VBG Base Excess -4.2 Sodium 137 Potassium 4.1 Chloride 107 Carbon Dioxide 21 Anion Gap 9 BUN 49 H Creatinine 1.63 H Est Cr Clr Drug Dosing 55.3 eGFR 47.05 BUN/Creatinine Ratio 30.1 H Glucose 106 H Calcium 9.3 Magnesium 1.4 L Total Bilirubin 6.5 H Direct Bilirubin 2.1 H AST 44 H ALT 17 Alkaline Phosphatase 109 H Troponin I High Sens 27.7 H B-Natriuretic Peptide 594 H Total Protein 6.7 Albumin 4.0 Lipase 56 Adenovirus (PCR) Not Detected B. pertussis DNA (PCR) Not Detected B.parapertussis DNA PCR Not Detected C. pneumoniae DNA (PCR) Not Detected Coronavirus OC43 (PCR) Not Detected Coronavirus HKU1 (PCR) Not Detected Coronavirus 229E (PCR) Not Detected SARS-CoV-2 (PCR) Not Detected Coronavirus NL63 (PCR) Not Detected Human Metapneumovir PCR Not Detected Influenza Type A (PCR) Not Detected Influenza Type B (PCR) Not Detected M. pneumoniae (PCR) Not Detected Parainfluenza 1 (PCR) Not Detected Parainfluenza 2 (PCR) Not Detected Parainfluenza 3 (PCR) Not Detected Parainfluenza 4 (PCR) Not Detected RSV (PCR) Not Detected Entero/Rhino (PCR) Not Detected Blood Type A Positive Antibody Screen POSITIVE A Diagnostic Findings Chest X-Ray 07/13/24 10:45 SINGLE VIEW CHEST CLINICAL HISTORY: Dyspnea FINDINGS: An AP, portable, upright chest radiograph is compared to study dated 01/21/2024 and correlated with chest CT dated 06/27/2024. The heart is markedly enlarged. There is pulmonary vascular congestion. Airspace opacities are seen bilaterally. Atelectasis is noted at the lung bases. No large pleural effusion or pneumothorax is seen. The skeletal structures are osteopenic. There is chronic deformity of the left clavicle. IMPRESSION: 1. Cardiomegaly with evidence of congestive failure. 2. Bilateral airspace opacities likely represent pulmonary edema. Correlate clinically for evidence of a superimposed pneumonitis. Radiographic follow-up to resolution is recommended ACT 112: Negative or not required by law. Electronically signed by: Jay Lewis M.D. 07/13/2024 11:17 AM Venous Doppler Study 07/13/24 11:23 ULTRASOUND BILATERAL LOWER EXTREMITY VENOUS CLINICAL HISTORY: Lower extremity edema. COMPARISON STUDY: Bilateral lower extremity venous ultrasound dated 01/23/2024 TECHNIQUE: Real-time, grayscale, and color Doppler sonography of the deep veins of the right and left lower extremity was performed from the inguinal crease to the calf. Compression and augmentation were utilized. FINDINGS: There is no sonographic evidence of deep venous thrombosis identified in the right or left lower extremity. The common femoral, superficial femoral, and popliteal veins are patent and normally compressible bilaterally. The greater saphenous vein and the profunda femoris vein at the junction with the common femoral vein are clear in both legs. The visualized calf veins are patent bilaterally. Soft tissue edema is noted in both legs. IMPRESSION: There is no sonographic evidence of deep venous thrombosis identified in the right or left lower extremity. ACT 112: Negative or not required by law. Electronically signed by: Jay eLwis M.D. 07/13/2024 12:47 PM ECG Additional Comments: A fib at 112 RBBB pattern noted Non specific T wave abnormality Code Status & VTE Plan Code Status Full code as discussed with patient VTE Prophylaxis Plan VTE Prophylaxis will be ordered: Yes PG Care Time/CCT Total # of Minutes Spent Total Time Spent with Patient: Total time spent is greater than 50% in coordination of care (as documented) at patient's floor/unit and/or counseling patient: Coding Level of Care Code 05265 INT INP/OBS CARE 3/75MIN Diagnoses Acute kidney injury N17.9 Hyperlipidemia, unspecified hyperlipidemia type E78.5 Hyperlipidemia type: unspecified Hypothyroidism E03.9 Atrial fibrillation I48.91 Warm autoimmune hemolytic anemia D59.11 Hx of kidney transplant Z94.0 Hypomagnesemia E83.42 Acute exacerbation of CHF (congestive heart failure) I50.9 Time Spent (min) 90 (2) Hyperlipidemia Hyperlipidemia type: unspecified Qualified Code(s): E78.5 - Hyperlipidemia, unspecified
[2024-07-13 13:36] LABS: Appearance Urine Clear (Clear); Bacteria Urine Automated None Seen (None Seen); Bilirubin Urine Negative (Negative); Blood Urine 3+ (Negative); Cast Urine Automated 0-2 /lpf (0-2); Color Urine Orange; Epithelial Cell Urine Auto 0-2 /hpf (0-2); Glucose Urine UA Negative (Negative); Ketones Urine Negative (Negative); Leukocyte Esterase Urine Trace (Negative); Nitrite Urine Negative (Negative); Protein Urine Trace (Negative); RBC Urine Automated >20 /hpf (0-2); Specific Gravity Urine 1.012 (1.000-1.030); Urobilinogen Urine Negative (Negative); WBC Urine Automated 0-5 /hpf (0-5); pH Urine 5.5 (4.5-7.5)
--- NOTE | 2024-07-13 15:02 | Emergency Department Note ---
History of Present Illness General Chief complaint: Shortness of Breath/Dyspnea Stated complaint: ANEMIA, SOB Time Seen by Provider: 07/13/24 10:44 History of Present Illness Provider complaint: Shortness of breath weakness 60-year-old male presents emergency department for shortness of breath and weakness. Patient reports he has been having increasing shortness of breath for last week. Reports no chest pain. Reports he is no longer on Xarelto. Patient reports he is scheduled to have blood transfusion soon but cannot wait. No melena hematochezia hematemesis hematuria nausea vomiting. Patient does report diarrhea. Home Medications Medication Instructions Recorded Confirmed Type mycophenolate mofetil 250 mg 500 mg (2 x 250 mg) PO BID #360 05/29/20 07/13/24 Rx capsule caps amoxicillin 500 mg capsule 2,000 mg PO DIRECTED PRN PRIOR 07/29/20 07/13/24 History TO DENTAL PROCEDURES multivitamin 1 tab PO QAM 08/02/21 07/13/24 History magnesium oxide 500 mg PO HS 09/04/23 07/13/24 History folic acid 1 mg tablet 1 mg PO BID #180 tabs 09/20/23 07/13/24 Rx pantoprazole 40 mg tablet,delayed 40 mg PO BID #180 tabs 12/06/23 07/13/24 Rx release calcium carbonate 500 mg PO QAM 01/21/24 07/13/24 History ferrous sulfate 325 mg (65 mg 325 mg PO BID #60 tabs 02/05/24 07/13/24 Rx iron) tablet prednisone 5 mg tablet 5 mg PO DAILY #90 tabs 02/27/24 07/13/24 Rx levothyroxine 125 mcg tablet 125 mcg PO QAM #90 tabs 03/04/24 07/13/24 Rx tacrolimus 1 mg capsule, 3 mg PO DAILY 04/16/24 07/13/24 History immediate-release metoprolol succinate 100 mg 100 mg PO HS #90 tabs 04/22/24 07/13/24 Rx tablet,extended release 24 hr acyclovir 400 mg tablet 400 mg PO BID 05/07/24 07/13/24 History ondansetron 4 mg disintegrating 4 mg PO Q8 PRN nausea #20 tabs 05/22/24 07/13/24 Rx tablet allopurinol 100 mg tablet 200 mg (2 x 100 mg) PO DAILY #60 06/03/24 07/13/24 Rx tabs Allergies Allergy/AdvReac Type Severity Reaction Status Date / Time clopidogrel [From Plavix] Allergy Unknown Unknown Verified 05/24/24 10:19 [id number] Reductase AdvReac Intermediate myalgias Verified 05/24/24 10:19 Inhibitor [Rioaouq-Ufl-Mpn Reductase Inhibitor] Past Med/Surg History Problem List (Updated 07/13/24 @ 15:02 by Conor Abernathy MD) Acute exacerbation of CHF (congestive heart failure) (Acute) Acute kidney injury Hypomagnesemia Status post right hip replacement LVH (left ventricular hypertrophy) Coronary artery calcification 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 Status post kidney transplant On prednisone therapy Ground glass opacity present on imaging of lung Rosales's esophagus with esophagitis Macrocytic anemia Erosive esophagitis EGD 08/2023 Abnormal findings on diagnostic imaging of other abdominal regions, including retroperitoneum Arthritis of right hip Atrial fibrillation controlled w/ metoprolol Eliquis recently ND'ed during Nov hospital visit due to anemia issues, no pacer Hip arthritis Adrenal nodule DE PCP considering adrenal protocol CT or MRI for characterization Herpetic maria Aneurysm Abnormal LFTs Pneumonia Acute non-ST elevation myocardial infarction (NSTEMI) (Acute) 01/31/23 Megaloblastic anemia (Acute) Cerumen impaction Retroperitoneal mass lesion biopsy negative for malignancy 05/2022 per transplant record 03/17/23 Hypotension Diarrhea Adenomatous polyps Vitamin D deficiency Chronic kidney disease, stage 3a COVID-19 (Acute) Acute respiratory failure with hypoxemia (Acute) 07/29/20 Anemia (Chronic) hospitalized at 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 History of esophageal reflux (Chronic) controlled, stable per pt Hyperlipidemia (Chronic) Hypothyroidism (Chronic) Obesity (Chronic) Osteoporosis (Chronic) Proteinuria (Chronic) Medical History Encounter for pre-operative examination History of non-ST elevation myocardial infarction (NSTEMI) entered into chart 01/2023 Osteoporosis Hypothyroidism Hyperlipidemia Hx of esophageal reflux controlled, stable per pt 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 Abdominal aortic aneurysm 4.9 cm on 01/2023 chest CTA CKD (chronic kidney disease) History of colon polyps Retroperitoneal mass lesion biopsy negative for malignancy 05/2022 per transplant record 03/17/23 Pneumonia HX Adrenal nodule monitored by PCP Arthritis On prednisone therapy Atrial fibrillation controlled w/ metoprolol, no cardio Rosales's esophagus with esophagitis Atrial flutter unaware 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 Sleep apnea no device Thoracic ascending aortic aneurysm 4.[address] 01/19/24 Hypertension controlled, stable per pt Limb alert care status left arm restriction History of blood transfusion 01/2024 Hx of herpetic maria History of COVID-19 07/2020- covid pneumonia, hospitalized; resolved History of renal dialysis prior to kidney transplant; has dialysis fistula left arm History of CVA (cerebrovascular accident) 2008, mild memory changes Surgical History History of esophagogastroduodenoscopy (EGD) Hx of cholecystectomy Hx of exploratory laparotomy Hx of kidney transplant 02[place] History of colonoscopy Family History Grandmother (Maternal) Alzheimer disease Mother Depression Denies family history of Ovarian cancer Prostate cancer Diabetes Heart disease Myocardial infarction Breast cancer Lung cancer COPD (chronic obstructive pulmonary disease) Colorectal cancer Hypertension Stroke Social History Smoking Status: Never smoker Second Hand Exposure: No; Do You Dip or Chew Tobacco: No; Hx Alcohol Use: No Hx Substance Use: No 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: Ukrainian Communication Ability: Effective Visual Impairment: No Limitations Hearing Ability: Normal Attendant Children'S Institution Required: No Beliefs That Will Affect Care: None marital status: Current Living Situation: Spouse current occupational status: employed current occupation: [employer] How many Children do You have: 1 Feels Safe at Home: Yes Childhood Exposure to Second-Hand Smoke: No Dental Care, Regularly: Yes Seatbelt Use: sometimes Sunscreen Use: No Assistive Devices: Cane and Walker Physical Exam Vital Signs Vital Signs - 24 hr 07/13/24 10:29 07/13/24 10:45 07/13/24 11:08 Temperature 37.3 C Temperature Source Temporal Artery Scan Pulse Rate 100 H Pulse Rate [Right Finger] Respiratory Rate 18 Respiratory Effort / Characteristics Non-Labored Spontaneous Respiratory Pattern Regular Blood Pressure 125/83 Blood Pressure [Right Arm] Blood Pressure Mean 97 Blood Pressure Mean [Right Arm] Blood Pressure Position [Right Arm] Pulse Oximetry 98 Oxygen Delivery Method Room Air Room Air Room Air Oxygen Flow Rate Sepsis New/Unexplained Change in Mental Status No Sepsis Action Taken by Nursing No Action Required 07/13/24 11:25 07/13/24 12:13 07/13/24 12:48 Temperature Temperature Source Pulse Rate 84 Pulse Rate [Right Finger] 86 Respiratory Rate 18 Respiratory Effort / Characteristics Non-Labored Spontaneous Respiratory Pattern Blood Pressure Blood Pressure [Right Arm] 130/93 Blood Pressure Mean Blood Pressure Mean [Right Arm] 105 Blood Pressure Position [Right Arm] Lying Pulse Oximetry 100 100 Oxygen Delivery Method Room Air Room Air Oxygen Flow Rate 0 Sepsis New/Unexplained Change in Mental Status Sepsis Action Taken by Nursing Physical Exam HENT: Exam performed. - Head: Normocephalic and atraumatic. - Right Ear: External ear normal. No mastoid erythema - Left Ear: External ear normal. No mastoid erythema - Mouth/Throat: The oropharynx is clear and moist. No trismus in the jaw. No dental abscesses or uvula swelling. No oropharyngeal exudate or tonsillar abscesses. EYES: Conjunctivae and EOM are normal. Pupils are equal, round, and reactive to light. Right eye exhibits no discharge. Left eye exhibits no discharge. No scleral icterus. NECK: Normal range of motion. Neck supple. No JVD present. CV: Normal rate, irregular rhythm, normal heart sounds and intact distal pulses. 2+ pain edema bilateral lower extremities. Palpable radial pulses bue. PULM/CHEST: Rales bilaterally. ABD: The abdomen is soft. There is no tenderness. There is no rebound, no guarding. NEURO: He is alert and oriented to person, place, and time. He has normal strength. No cranial nerve deficit or sensory deficit. Course Course 1044: The patient was evaluated in room C7. A complete history and physical exam was performed Cardiac monitoring: An order was placed for continuous cardiac monitoring. The monitor shows a rate of 110 with atrial fibrilation rhythm interpreted by me 1245: Vital signs stable. Labs show hemoglobin 7.6. Coagulation studies VBG within normal limits with creatinine 1.63. Magnesium 1.4. Magnesium repletion started emergency department. Total bilirubin 6.5 direct bilirubin 2.1. AST 44. High sensitive troponin 27.7. BNP 594. Urinalysis unremarkable. Chest x- ray shows cardiomegaly with cephalization. Discussed case with Dr. Gonsalez patient's oncologist. He states patient has complex medical history including a significant hemolytic anemia. He states that the patient usually does decompensate when the patient's hemoglobin is less than 8. He recommends treating the patient's with Lasix and diuresing him and then administering 1 unit packed red blood cells. States admit to the hospitalist team and he will evaluate the patient when he is admitted. [facility] hospitalist will be contacted. Administered Medications Discontinued Medications Furosemide (Furosemide 40 Mg/4 Ml Vial) 40 mg IV ONE ONE Stop: 07/13/24 12:46 Last Admin: 07/13/24 12:57 Dose: 40 mg Documented By: BILLIE Magnesium Sulfate/Dextrose (Magnesium Sulfate / D5w) 1 gm in 100 mls @ 100 mls/hr IV Q1H ESTEFANI Stop: 07/13/24 13:52 Last Infusion: 07/13/24 14:16 Dose: Infused Documented By: Admin: 07/13/24 12:57 Dose: 100 mls/hr Documented By: Infusion: 07/13/24 12:57 Dose: Infused Documented By: Admin: 07/13/24 11:58 Dose: 100 mls/hr Documented By: BILLIE Critical Care Time Critical Care Time: Yes Total Critical Care Time: 38 I have personally spent greater than 38 minutes of critical care time in the direct management of this patient. This includes bedside care, interpretation of diagnostic studies, and testing, discussion with consultants, patient, and family members, and other required patient management activities. This 38 minutes is in excess of all separately billable procedures. Medical Decision Making Laboratory Data Attestation: I reviewed the patient's lab results. 07/13/24 10:54 07/13/24 10:54 Lab Results 07/13/24 07/13/24 07/13/24 Range/Units 10:54 11:13 13:18 WBC 10.13 (4.8-10.8) K/ul RBC 2.01 L (4.70-6.10) M/uL Hgb 7.6 L (14.0-18.0) g/dl Hct 24.9 L (42.0-52.0) % MCV 123.9 H (80.0-100.0) fL MCH 37.8 H (25.0-34.0) pg MCHC 30.5 L D (32.0-36.0) g/dL RDW Std Deviation 64.5 H (36.4-46.3) fL RDW Coeff of Jaye 14.4 (11.5-14.5) % Plt Count 163 (130-400) K/uL MPV 10.0 (9.4-12.4) fL Immature Gran % (Auto) 0.6 % Neut % (Auto) 86.3 % Lymph % (Auto) 3.2 % [place] % (Auto) 8.5 % Eos % (Auto) 1.0 % Baso % (Auto) 0.4 % Neut # (Auto) 8.75 H (1.40-6.50) K/uL Lymph # (Auto) 0.32 L (1.20-3.40) K/uL [place] # (Auto) 0.86 H (0.11-0.59) K/uL Eos # (Auto) 0.10 (0.00-0.50) K/uL Baso # (Auto) 0.04 (0.00-0.20) K/uL Immature Gran # (Auto) 0.06 (0.01-0.20) K/uL Polychromasia 1+ Macrocytosis Present PT 12.5 H (9.0-12.0) Seconds INR 1.2 H (0.9-1.1) APTT 27 (21-31) Seconds PTT Ratio 1.0 VBG pH 7.35 L (7.36-7.41) VBG pCO2 38 (38-50) mmHg VBG pO2 24 mmHg VBG HCO3 21 mmol/L VBG O2 Saturation < 60.0 % VBG Base Excess -4.2 mEq/L Sodium 137 (136-145) mmol/L Potassium 4.1 (3.5-5.1) mmol/L Chloride 107 (98-107) mmol/L Carbon Dioxide 21 (21-32) mmol/L Anion Gap 9 (3-11) BUN 49 H (6-23) mg/dl Creatinine 1.63 H (0.6-1.4) mg/dl Est Cr Clr Drug Dosing 55.3 ml/min eGFR 47.05 BUN/Creatinine Ratio 30.1 H (10-20) Glucose 106 H (70-99(Fasting)) mg/dl Calcium 9.3 (8.6-10.3) mg/dl Magnesium 1.4 L (1.7-2.4) mg/dl Total Bilirubin 6.5 H (0.2-1.0) mg/dl Direct Bilirubin 2.1 H (0-0.2) mg/dl AST 44 H (13-39) U/L ALT 17 (7-52) U/L Alkaline Phosphatase 109 H (34-104) U/L Troponin I High Sens 27.7 H (0-20) pg/ml B-Natriuretic Peptide 594 H (0-100) pg/ml Total Protein 6.7 (6.0-8.3) gm/dl Albumin 4.0 (3.4-5.0) gm/dl Lipase 56 (11-82) U/L Urine Color [place] Urine Appearance Clear (Clear) Urine pH 5.5 (4.5-7.5) Ur Specific [place] 1.012 (1.000-1.030) Urine Protein Trace H (Negative) Urine Glucose (UA) Negative (Negative) Urine Ketones Negative (Negative) Urine Blood 3+ H (Negative) Urine Nitrite Negative (Negative) Urine Bilirubin Negative (Negative) Urine Urobilinogen Negative (Negative) Ur Leukocyte Esterase Trace H (Negative) Urine WBC (Auto) 0-5 (0-5) /hpf Urine RBC (Auto) >20 H (0-2) /hpf U Hyaline Cast (Auto) 0-2 (0-2) /lpf U Epithel Cells (Auto) 0-2 (0-2) /hpf Urine Bacteria (Auto) None Seen (None Seen) Adenovirus (PCR) Not Detected (NotDetected) B. pertussis DNA (PCR) Not Detected (NotDetected) B.parapertussis DNA PCR Not Detected (NotDetected) C. pneumoniae DNA (PCR) Not Detected (NotDetected) Coronavirus OC43 (PCR) Not Detected (NotDetected) Coronavirus HKU1 (PCR) Not Detected (NotDetected) Coronavirus 229E (PCR) Not Detected (NotDetected) SARS-CoV-2 (PCR) Not Detected (NotDetected) Coronavirus NL63 (PCR) Not Detected (NotDetected) Human Metapneumovir PCR Not Detected (NotDetected) Influenza Type A (PCR) Not Detected (NotDetected) Influenza Type B (PCR) Not Detected (NotDetected) M. pneumoniae (PCR) Not Detected (NotDetected) Parainfluenza 1 (PCR) Not Detected (NotDetected) Parainfluenza 2 (PCR) Not Detected (NotDetected) Parainfluenza 3 (PCR) Not Detected (NotDetected) Parainfluenza 4 (PCR) Not Detected (NotDetected) RSV (PCR) Not Detected (NotDetected) Entero/Rhino (PCR) Not Detected (NotDetected) Blood Type A Positive Antibody Screen POSITIVE A Antibody ID Comment Cancelled Crossmatch See Detail Imaging Data Attestation: I personally reviewed and interpreted this imaging study as follows: My Impression: Chest x-ray: Cardiomegaly with cephalization Radiologist's Impression: Chest X-Ray 07/13/24 10:45 SINGLE VIEW CHEST CLINICAL HISTORY: Dyspnea FINDINGS: An AP, portable, upright chest radiograph is compared to study dated 01/21/2024 and correlated with chest CT dated 06/27/2024. The heart is markedly enlarged. There is pulmonary vascular congestion. Airspace opacities are seen bilaterally. Atelectasis is noted at the lung bases. No large pleural effusion or pneumothorax is seen. The skeletal structures are osteopenic. There is chronic deformity of the left clavicle. IMPRESSION: 1. Cardiomegaly with evidence of congestive failure. 2. Bilateral airspace opacities likely represent pulmonary edema. Correlate clinically for evidence of a superimposed pneumonitis. Radiographic follow-up to resolution is recommended ACT 112: Negative or not required by law. Electronically signed by: Jay Lewis M.D. 07/13/2024 11:17 AM Venous Doppler Study 07/13/24 11:23 ULTRASOUND BILATERAL LOWER EXTREMITY VENOUS CLINICAL HISTORY: Lower extremity edema. COMPARISON STUDY: Bilateral lower extremity venous ultrasound dated 01/23/2024 TECHNIQUE: Real-time, grayscale, and color Doppler sonography of the deep veins of the right and left lower extremity was performed from the inguinal crease to the calf. Compression and augmentation were utilized. FINDINGS: There is no sonographic evidence of deep venous thrombosis identified in the right or left lower extremity. The common femoral, superficial femoral, and popliteal veins are patent and normally compressible bilaterally. The greater saphenous vein and the profunda femoris vein at the junction with the common femoral vein are clear in both legs. The visualized calf veins are patent bilaterally. Soft tissue edema is noted in both legs. IMPRESSION: There is no sonographic evidence of deep venous thrombosis identified in the right or left lower extremity. ACT 112: Negative or not required by law. Electronically signed by: Jay Lewis M.D. 07/13/2024 12:47 PM ECG Data Attestation: I personally reviewed and interpreted this ECG as follows: Rate (beats per minute): 112 Rhythm: + atrial fibrillation ECG Intervals/blocks: + Right Bundle branch block ECG ST segments: + Normal ST segments Additional Comments: QRS 150 QTc 485 MDM Narrative 1044: The patient was evaluated in room C7. A complete history and physical exam was performed Cardiac monitoring: An order was placed for continuous cardiac monitoring. The monitor shows a rate of 110 with atrial fibrilation rhythm interpreted by me 1245: Vital signs stable. Labs show hemoglobin 7.6. Coagulation studies VBG within normal limits with creatinine 1.63. Magnesium 1.4. Magnesium repletion started emergency department. Total bilirubin 6.5 direct bilirubin 2.1. AST 44. High sensitive troponin 27.7. BNP 594. Urinalysis unremarkable. Chest x- ray shows cardiomegaly with cephalization. Discussed case with Dr. Gonsalez patient's oncologist. He states patient has complex medical history including a significant hemolytic anemia. He states that the patient usually does decompensate when the patient's hemoglobin is less than 8. He recommends treating the patient's with Lasix and diuresing him and then administering 1 unit packed red blood cells. States admit to the hospitalist team and he will evaluate the patient when he is admitted. [facility] hospitalist will be contacted. Impression & Plan Acute exacerbation of CHF (congestive heart failure), Anemia Discharge Plan Visit Data Chief Complaint: Shortness of Breath/Dyspnea Stated Complaint: ANEMIA, SOB ED Provider: Conor Abernathy Discharge Problem: Acute exacerbation of CHF (congestive heart failure), Anemia Patient Disposition: Admitted As Inpatient Discharge Instructions Interventions: ED Discharge Assessment Last Done: 07/13/24 14:36
[2024-07-13] MEDS ORDERED: ACETAMINOPHEN 325 MG TAB PO PRN (15:09)
[2024-07-13] MEDS: FERROUS SULFATE 325 MG TAB PO SCH (20:12)
[2024-07-13] MEDS: METOPROLOL SUCC 50MG EXT REL TAB PO SCH (20:12)
[2024-07-13] MEDS: MAGNESIUM OXIDE 400 MG TAB PO SCH (20:12)
[2024-07-13] MEDS: FOLIC ACID 1 MG TAB PO SCH (20:12)
[2024-07-13] MEDS: MYCOPHENOLATE MOFETIL 250 MG CAP PO SCH (20:12)
[2024-07-13] MEDS: ACYCLOVIR 400 MG TAB PO SCH (20:12)
[2024-07-13] MEDS: PANTOprazole 40 MG TAB PO SCH (20:12)
[2024-07-14] MEDS: LEVOTHYROXINE SODIUM 125 MCG TABLET PO SCH (06:03)
--- NOTE | 2024-07-14 07:37 | Electrocardiogram Report ---
Test Reason : Blood Pressure : */* mmHG Vent. Rate : 112 BPM Atrial Rate : * BPM P-R Int : * ms QRS Dur : 150 ms QT Int : 356 ms P-R-T Axes : * -25 88 degrees QTcB Int : 485 ms Atrial fibrillation with rapid ventricular response Right bundle branch block T wave abnormality, consider lateral ischemia Abnormal ECG When compared with ECG of 16-May-2024 09:21, No significant change was found Confirmed by Kannan Otto ([id number]) on 07/14/2024 7:37:25 AM Referred By: REFERRED SELF Confirmed By: Kannan Otto
[2024-07-14 08:25] LABS: BUN Creatinine Ratio 33.9 (10-20); Calcium 8.8 mg/dl (8.6-10.3); Creatinine Clr Calc Pharmacy 69.9 ml/min; Magnesium 1.4 mg/dl (1.7-2.4); Potassium 4.1 mmol/L (3.5-5.1)
[2024-07-14 08:28] LABS: Hematocrit (blood only) 19.9 % (42.0-52.0); Hemoglobin 6.3 g/dl (14.0-18.0); Mean Corpuscular Hemoglobin 38.7 pg (25.0-34.0); Mean Corpuscular Hgb Conc 31.7 g/dL (32.0-36.0); Mean Corpuscular Volume 122.1 fL (80.0-100.0); Mean Platelet Volume 10.5 fL (9.4-12.4); Platelet Count 146 K/uL (130-400); RDW Coefficient of Variation 14.4 % (11.5-14.5); RDW Standard Deviation 63.7 fL (36.4-46.3); Red Blood Count 1.63 M/uL (4.70-6.10); White Blood Count 7.37 K/ul (4.8-10.8)
[2024-07-14 09:12] LABS: Albumin Level 3.5 gm/dl (3.4-5.0); Bilirubin Direct 1.7 mg/dl (0-0.2); Bilirubin,Total 5.1 mg/dl (0.2-1.0); Total Protein 5.8 gm/dl (6.0-8.3)
[2024-07-14] MEDS ORDERED: methylPREDNISolone 1000 MG/16 ML IV SCH (09:15)
--- NOTE | 2024-07-14 09:32 | XCELERA ---
[id number]
[2024-07-14] MEDS: MULTIVITAMIN TAB PO SCH (09:33)
[2024-07-14] MEDS: allopurinoL 100 MG TAB PO SCH (09:33)
[2024-07-14] MEDS: TACROLIMUS 1 MG CAP PO SCH (09:36)
[2024-07-14] MEDS: CALCIUM CARBONATE 1250MG TAB PO SCH (09:36)
[2024-07-14] MEDS: FUROSEMIDE 40 MG/4 ML VIAL IV SCH (09:37)
[2024-07-14] MEDS: predniSONE 5 MG TAB PO SCH (09:38)
[2024-07-14] MEDS: MAGNESIUM SULFATE / D5W 1 GM/100 ML BAG IV SCH (10:15)
[2024-07-14] MEDS: methylPREDNISolone 1,000 MG in DEXTROSE 5% 250 ML IV SCH (10:15)
--- NOTE | 2024-07-14 11:15 | Hospitalist Progress Note ---
Date of Service July 14, 2024 Assessment & Plan (1) Warm autoimmune hemolytic anemia: Plan: This is a 63 y/o male presenting with SOB/STOCK in the setting of AIHA with Hgb of 7.6, as well as with mild KRISSY and volume overload likely due to HFpEF. Hgb 7.6 --> 6.3, had not recieved blood yet (has multiple antibodies normally takes 1 day to arrive) -Monitor H/H post transfusion -Patient is on Acyclovir for prophylaxis while on Velcade he states (receives infusion every other week); will continue per home dose Follows with Dr. gonsalez, Oncology consulted - Solumedrol 1g x3 days - if no response will consider IVIG (2) Acute exacerbation of CHF (congestive heart failure): Plan: Trop --> 28 --> 32 do not suspect ACS -Echo: pending -Daily weights, strict I/O -Received IV lasix x2, further doses HELD to reasses volume/kidney status in AM (edema and SOB improving), pt not on baseline diuretics, hx of kidney transplant -Cont Metoprolol ER 100 mg daily (3) Acute kidney injury: Plan: In the setting of hx of kidney transplant Mycophenolate and Tacrolimus levels: Pending - continue Mycophenolate 500 BID per home dose - continue Tacrolimus 3 mg daily per home dose Home prednisone held in setting of high dose steroids Cr back to baseline, KRISSY Resolved (4) Atrial fibrillation: Plan: rate controlled with metoprolol - historically, DOAC deferred in the setting of anemia, but recently tolerated Xarelto short term with hip fx, could reconsider when acute anemia improves. (5) Hypomagnesemia: Plan: Mag 1.4 on arrival, -Cont home Mg supplement 500 mg Hs -1g IV x 2 ordered AM Mag Plan Chronic stable medical conditions: * Hypothyroidism - synthroid 125 mcg daily. TSH WNL 04/2024 * Gout - allopurinol 200 mg daily DVT PPx -- Given low H/H, will continue SCDs for now; Dispo: continuned inpatient stay Case discussed with Dr Gonsalez, oncology Admission and Anticipated Discharge Date Admission Date: July 13, 2024 Subjective PAtient seen resting in bed. States his symptoms were mainly shortness of breath and leg swelling that he thought he needed to come in. He did not have the fatigue or weakness that he normally gets when he is anemic. moving bowels no other spots of bleeding, weird bruising Has not received blood yet. Tele - afib 80s Review of Systems Review of Systems: All systems reviewed & are unremarkable except as noted in Subjective Physical Exam Physical Exam: General: NAD, VS as above Resp: normal respiratory effort, lungs clear to auscultation, no wheezing CV: afib, no murmur, Abd: normal bowel sounds, non tender, no hepatosplenomegaly Extremities: Moves all extremities, trace edema - non pitting Neuro: A&O x3, Results & Data Results & Data Vital Signs (Past 12 Hours) Vital Signs Temp Pulse Resp BP Pulse Ox Pulse Ox O2 Del Method 07/14/24 10:45 93 07/14/24 10:37 Room Air 07/14/24 07:06 97.7 F 90 20 117/78 93 Room Air 07/14/24 04:04 97.9 F 80 20 113/75 97 Room Air O2 Del Method 07/14/24 10:45 Room Air 07/14/24 10:37 07/14/24 07:06 07/14/24 04:04 Laboratory Results CBC, chemistry and mag reviewed PG Care Time/CCT Total # of Minutes Spent Total Time Spent with Patient: Total time spent is greater than 50% in coordination of care (as documented) at patient's floor/unit and/or counseling patient: Coding Level of Care Code 97761 SUB INP/OBS CARE 3/50MIN Diagnoses Warm autoimmune hemolytic anemia D59.11 Acute exacerbation of CHF (congestive heart failure) I50.9 Acute kidney injury N17.9 Atrial fibrillation I48.91 Hypomagnesemia E83.42
--- NOTE | 2024-07-14 13:56 | Oncology Consultation ---
Date of Consultation July 14, 2024 Assessment & Plan (1) Autoimmune hemolytic anemia: Previously had seen the patient in the clinic had recommended blood transfusion however blood product could not be arranged because of previous history of needing antibody matched packed red blood cells. At this point will recommend initiation of immunosuppression again with Solu-Medrol 1 g/day. If his hemoglobin does not improve then will recommend IVIG 1 g/kg daily. Firstly would consider finishing a course of Solu-Medrol 1 g/day over a period of 3 days. Will reinitiate Velcade outpatient. Transfuse if hemoglobin is less than 7 g/dL. Plan Thank you for this interesting hematological consult. A total of 60 minutes were spent in counseling, coordination of care, review of prior records. History of Present Illness Reason for Consultation: Autoimmune hemolytic anemia Attending Physician: Ranjeet Frederick MD History of Present Illness Warm AIHA Diagnosis: 07/2023 Treatment: Prednisone 60 mg PO daily tapered; currently on 5 mg PO daily dose Latest Hb; 09/02/2024: 7.6 gm/dl with macrocytosis High-dose prednisone Rituximab, day 1 05/02/2022 followed by rituximab every 2 months IVIG High-dose Cytoxan x 2 Current treatment: Maintenance bortezomib 1.3 mg/m q. [address] Chest diagnostic; 10/25/2023: 11 mm irregular groundglass nodule within the right lung apex. Interval development of a mild subacute superior endplate compression fracture at T12 vertebrae. Irregular soft tissue density portion of the left adrenal gland. Aneurysmal dilatation of the thoracic aorta. EGD; 09/13/2023: Squamocolumnar mucosa with reactive changes and intestinal metaplasia consistent with Rosales's esophagus. Gastric cardia type mucosa. Negative for malignancy and dysplasia CT Abdomen pelvis without contrast; 07/05/2023: Progressive infiltrative soft tissue attenuating foci throughout the retroperitoneuam and mesentry. Lymphoproliferative disorder is the diagnosis of exclusion. CT chest abdomen pelvis, 06/27/2024 IMPRESSION: 1. A 10 mm groundglass nodule at the right apex has not appreciably changed. A small adenomatous lesion is not excluded. Continued attention at follow-up is recommended. 2. No new or enlarging pulmonary lesion is seen. 3. Cardiomegaly. 4. There is no airspace consolidation typical for pneumonia or pleural effusion. 5. Splenomegaly. 6. The appearance of the liver suggests early morphologic changes of cirrhosis. 7. Numerous irregular lesions scattered throughout the retroperitoneum and peritoneum have continued to modestly decreased in size as compared to 01/19/2024. The appearance favors a lymphoproliferative disorder. Correlate with the oncological history. 8. Mildly enlarged mediastinal lymph nodes are nonspecific but new from 01/19/2024. These may be reactive. Continued attention at follow-up is recommended. No additional enlarged lymph nodes are seen. 9. Moderate hiatal hernia. 10. Colonic diverticulosis without CT evidence of acute diverticulitis. 11. A right pelvic renal transplant is again noted. There is no hydronephrosis. 12. Aneurysmal dilatation of the ascending thoracic aorta is unchanged. This measures up to 4.8 cm. 13. Additional findings as above. 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 He is previously received multiple blood transfusions for autoimmune hemolytic anemia. He recently had a total hip replacement on the right side, subsequently had to hold his treatment and had further flareup of his autoimmune hemolytic anemia. He comes to the [facility] with increased weakness, fatigue, tiredness and exacerbation of heart failure. Hematology has been consulted to assist in management of this patient with autoimmune hemolytic anemia. Allergies Allergy/AdvReac Type Severity Reaction Status Date / Time clopidogrel [From Plavix] Allergy Unknown Unknown Verified 05/24/24 10:19 [id number] Reductase AdvReac Intermediate myalgias Verified 05/24/24 10:19 Inhibitor [[id number]-[id number]-[id number] Reductase Inhibitor] Home Medications Medication Instructions Recorded Confirmed Type mycophenolate mofetil 250 mg 500 mg (2 x 250 mg) PO BID #360 05/29/20 07/13/24 Rx capsule caps amoxicillin 500 mg capsule 2,000 mg PO DIRECTED PRN PRIOR 07/29/20 07/13/24 History TO DENTAL PROCEDURES multivitamin 1 tab PO QAM 08/02/21 07/13/24 History magnesium oxide 500 mg PO HS 09/04/23 07/13/24 History folic acid 1 mg tablet 1 mg PO BID #180 tabs 09/20/23 07/13/24 Rx pantoprazole 40 mg tablet,delayed 40 mg PO BID #180 tabs 12/06/23 07/13/24 Rx release calcium carbonate 500 mg PO QAM 01/21/24 07/13/24 History ferrous sulfate 325 mg (65 mg 325 mg PO BID #60 tabs 02/05/24 07/13/24 Rx iron) tablet prednisone 5 mg tablet 5 mg PO DAILY #90 tabs 02/27/24 07/13/24 Rx levothyroxine 125 mcg tablet 125 mcg PO QAM #90 tabs 03/04/24 07/13/24 Rx tacrolimus 1 mg capsule, 3 mg PO DAILY 04/16/24 07/13/24 History immediate-release metoprolol succinate 100 mg 100 mg PO HS #90 tabs 04/22/24 07/13/24 Rx tablet,extended release 24 hr acyclovir 400 mg tablet 400 mg PO BID 05/07/24 07/13/24 History ondansetron 4 mg disintegrating 4 mg PO Q8 PRN nausea #20 tabs 05/22/24 07/13/24 Rx tablet allopurinol 100 mg tablet 200 mg (2 x 100 mg) PO DAILY #60 06/03/24 07/13/24 Rx tabs Patient History Medical History Encounter for pre-operative examination History of non-ST elevation myocardial infarction (NSTEMI) entered into chart 01/2023 Osteoporosis Hypothyroidism Hyperlipidemia Hx of esophageal reflux controlled, stable per pt 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 Abdominal aortic aneurysm 4.9 cm on 01/2023 chest CTA CKD (chronic kidney disease) History of colon polyps Retroperitoneal mass lesion biopsy negative for malignancy 05/2022 per transplant record 03/17/23 Pneumonia HX Adrenal nodule monitored by PCP Arthritis On prednisone therapy Atrial fibrillation controlled w/ metoprolol, no cardio Rosales's esophagus with esophagitis Atrial flutter unaware 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 Warm autoimmune hemolytic anemia Sleep apnea no device Thoracic ascending aortic aneurysm 4.[address] 01/19/24 Hypertension controlled, stable per pt Limb alert care status left arm restriction History of blood transfusion 01/2024 Hx of herpetic maria History of COVID-19 07/2020- covid pneumonia, hospitalized; resolved History of renal dialysis prior to kidney transplant; has dialysis fistula left arm History of CVA (cerebrovascular accident) 2008, mild memory changes Surgical History History of esophagogastroduodenoscopy (EGD) Hx of cholecystectomy Hx of exploratory laparotomy Hx of kidney transplant 02/2010- [email or web address] [place], [place] History of colonoscopy Family History Grandmother (Maternal) Alzheimer disease Mother Depression Denies family history of Ovarian cancer Prostate cancer Diabetes Heart disease Myocardial infarction Breast cancer Lung cancer COPD (chronic obstructive pulmonary disease) Colorectal cancer Hypertension Stroke Social History Smoking Status: Never smoker Second Hand Exposure: No; Do You Dip or Chew Tobacco: No; Hx Alcohol Use: No Hx Substance Use: No 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: Danish Communication Ability: Effective Visual Impairment: No Limitations Hearing Ability: Normal Follow Up Manager Required: No Beliefs That Will Affect Care: None marital status: Current Living Situation: Spouse current occupational status: employed current occupation: [employer] How many Children do You have: 1 Other Information That Helps Us Care for You: No Feels Safe at Home: Yes Childhood Exposure to Second-Hand Smoke: No Dental Care, Regularly: Yes Seatbelt Use: sometimes Sunscreen Use: No Assistive Devices: Cane and Walker Review of Systems Review of Systems: Complete review of system was done, was positive for fatigue, shortness of breath, tiredness. Constitutional: as per Subjective / HPI Eyes: as per Subjective / HPI Ear, Nose, Mouth, Throat: as per Subjective / HPI Respiratory: as per Subjective / HPI Cardiovascular: as per Subjective / HPI Gastrointestinal: as per Subjective / HPI Genitourinary: + as per Subjective / HPI Musculoskeletal: as per Subjective / HPI Integumentary: as per Subjective / HPI Neurologic: as per Subjective / HPI Psychiatric: as per Subjective / HPI Physical Exam Constitutional: WD/WN, vitals as above Eyes: PERRL, conjunctivae normal, anicteric sclerae ENMT: external ear and nose normal, oropharynx normal Neck: trachea midline, no thyromegaly Respiratory: normal respiratory effort, lungs clear to auscultation Cardiovascular: RRR, no murmur, no edema Gastrointestinal (Abdomen): normal bowel sounds, soft, nontender, no hepatosplenomegaly Musculoskeletal: no cyanosis or clubbing, extremities motor strength 5/5 Skin: no rashes, warm and dry Neurologic: patellar DTR's 2+ bilat, sensation intact Psychiatric: A+Ox3, euthymic affect Lymphatic: no cervical or axillary lymphadenopathy Results & Data Vital Signs (Past 12 Hours) Vital Signs Temp Pulse Pulse Resp BP Pulse Ox Pulse Ox 07/14/24 11:11 36.7 C 80 14 105/71 99 07/14/24 10:45 93 07/14/24 10:37 07/14/24 07:06 36.5 C 90 20 117/78 93 07/14/24 04:04 36.6 C 80 20 113/75 97 O2 Del Method O2 Del Method 07/14/24 11:11 Room Air 07/14/24 10:45 Room Air 07/14/24 10:37 Room Air 07/14/24 07:06 Room Air 07/14/24 04:04 Room Air
[2024-07-14 15:07] LABS: iSTAT Creatinine 1.8 mg/dl (0.6-1.3); iSTAT Hemoglobin 8.2 g/dl (14.0-18.0); iSTAT Ionized Calcium 1.18 mmol/l (1.12-1.32); iSTAT Potassium 4.1 mmol/L (3.3-5.0)
[2024-07-15] MEDS: ONDANSETRON INJ 2 MG/ML 2 ML VIAL IV STA (00:27)
[2024-07-15] MEDS: PROCHLORPERAZINE 5 MG in SYRINGE 4 ML IV ONE (02:27)
[2024-07-15 06:36] LABS: Hematocrit (blood only) 21.1 % (42.0-52.0); Hemoglobin 6.5 g/dl (14.0-18.0); Mean Corpuscular Hemoglobin 36.1 pg (25.0-34.0); Mean Corpuscular Hgb Conc 30.8 g/dL (32.0-36.0); Mean Corpuscular Volume 117.2 fL (80.0-100.0); Mean Platelet Volume 10.4 fL (9.4-12.4); Platelet Count 123 K/uL (130-400); RDW Coefficient of Variation 17.2 % (11.5-14.5); RDW Standard Deviation 73.6 fL (36.4-46.3); White Blood Count 5.36 K/ul (4.8-10.8)
[2024-07-15 06:40] LABS: Calcium 8.8 mg/dl (8.6-10.3); Creatinine Clr Calc Pharmacy 57.8 ml/min; Potassium 4.2 mmol/L (3.5-5.1)
[2024-07-15] MEDS ORDERED: SODIUM CHLORIDE 0.9% 100 ML IV PRN ×3 (07:55→15:38)
[2024-07-15 15:24] LABS: Hematocrit (blood only) 22.5 % (42.0-52.0); Hemoglobin 7.2 g/dl (14.0-18.0)
[2024-07-15 15:29] LABS: BUN Creatinine Ratio 28.1 (10-20); Calcium 8.8 mg/dl (8.6-10.3); Creatinine Clr Calc Pharmacy 51.8 ml/min; Potassium 4.3 mmol/L (3.5-5.1)
--- NOTE | 2024-07-15 16:25 | Hospitalist Progress Note ---
Date of Service July 15, 2024 Assessment & Plan (1) Warm autoimmune hemolytic anemia: Plan: This is a 63 y/o male presenting with SOB/STOCK in the setting of AIHA with Hgb of 7.6, as well as with mild KRISSY and volume overload likely due to HFpEF. Hgb 7.6 --> 6.3 (has multiple antibodies normally takes 1 day to arrive) -Monitor H/H post transfusion -s/p 2 unit PRBC 07/15. hgb currently 7.2. - hematology recommending above 8. Reached out to blood bank for further units. They are expecting them to be transported here this evening. -Patient is on Acyclovir for prophylaxis while on Velcade he states (receives infusion every other week); will continue per home dose Follows with Dr. stokes, Oncology consulted - Solumedrol 1g x3 days - if no response will consider IVIG (2) Acute exacerbation of CHF (congestive heart failure): Plan: Trop --> 28 --> 32 do not suspect ACS -Echo: Moderate concentric LVH, RV dilated, RV SF normal, LA and RA dilated, Mild aortic regurg, mild mitral regurg, RV systolic pressure elevated. Mild aortic root dilatation, IVC dilated. -Daily weights, strict I/O -Received IV lasix x2, further doses HELD to reassess volume/kidney status in AM (edema and SOB improving), pt not on baseline diuretics, hx of kidney transplant -Cont Metoprolol ER 100 mg daily (3) Acute kidney injury: Plan: In the setting of hx of kidney transplant Mycophenolate and Tacrolimus levels: Pending - continue Mycophenolate 500 BID per home dose - continue Tacrolimus 3 mg daily per home dose Home prednisone held in setting of high dose steroids BMP reviewed 07/15: creatinine 1.67. Hold further dose of Lasix until KRISSY resolves. AM BMP. (4) Atrial fibrillation: Plan: rate controlled with metoprolol - historically, DOAC deferred in the setting of anemia, but recently tolerated Xarelto short term with hip fx, could reconsider when acute anemia improves. (5) Hypomagnesemia: Plan: Mag 1.4 on arrival, -Cont home Mg supplement 500 mg Hs -1g IV x 2 ordered AM Mag Plan Chronic stable medical conditions: * Hypothyroidism - synthroid 125 mcg daily. TSH WNL 04/2024 * Gout - allopurinol 200 mg daily DVT PPx -- Given low H/H, will continue SCDs for now; Dispo: continued inpatient stay Admission and Anticipated Discharge Date Admission Date: July 13, 2024 Subjective Patient seen and examined this morning. patient receiving 1 unit PRBC at time of encounter. patient reported to be feeling okay today. denied any complaints. Reports he has had LE edema since his hip surgery in May. Physical Exam Constitutional: WD/WN, vitals as above Eyes: PERRL, conjunctivae normal, anicteric sclerae Respiratory: breathing unlabored Cardiovascular: well pefused, +1 LE edema Psychiatric: A+Ox3, euthymic affect Results & Data Results & Data Vital Signs (Past 12 Hours) Vital Signs Temp Pulse Pulse Resp BP BP Pulse Ox 07/15/24 15:49 07/15/24 15:07 80 07/15/24 13:22 36.4 C L 81 19 102/70 99 07/15/24 12:52 36.4 C L 82 19 115/79 99 07/15/24 12:22 36.3 C L 76 18 108/73 98 07/15/24 11:56 36.3 C L 85 19 113/73 97 07/15/24 11:21 36.3 C L 83 19 109/74 99 07/15/24 10:52 36.3 C L 81 19 129/85 99 07/15/24 10:37 36.5 C 81 19 145/98 H 96 07/15/24 10:26 07/15/24 10:19 36.3 C L 82 19 139/90 99 07/15/24 07:39 36.4 C L 88 16 124/83 99 07/15/24 07:38 84 07/15/24 04:30 36.9 C 89 20 96/66 L 97 O2 Del Method 07/15/24 15:49 Room Air 07/15/24 15:07 07/15/24 13:22 07/15/24 12:52 07/15/24 12:22 07/15/24 11:56 07/15/24 11:21 07/15/24 10:52 07/15/24 10:37 07/15/24 10:26 Room Air 07/15/24 10:19 07/15/24 07:39 Room Air 07/15/24 07:38 07/15/24 04:30 Room Air PG Care Time/CCT Total # of Minutes Spent Total Time Spent with Patient: Total time spent is greater than 50% in coordination of care (as documented) at patient's floor/unit and/or counseling patient: Coding Level of Care Code 12094 SUB INP/OBS CARE 2/35MIN Diagnoses Warm autoimmune hemolytic anemia D59.11 Acute exacerbation of CHF (congestive heart failure) I50.9 Acute kidney injury N17.9 Atrial fibrillation I48.91 Hypomagnesemia E83.42
[2024-07-16 08:34] LABS: Hematocrit (blood only) 25.9 % (42.0-52.0); Hemoglobin 8.1 g/dl (14.0-18.0); Mean Corpuscular Hgb Conc 31.3 g/dL (32.0-36.0); Mean Corpuscular Volume 115.1 fL (80.0-100.0); Mean Platelet Volume 10.9 fL (9.4-12.4); Platelet Count 141 K/uL (130-400); RDW Coefficient of Variation 20.3 % (11.5-14.5); RDW Standard Deviation 82.9 fL (36.4-46.3); Red Blood Count 2.25 M/uL (4.70-6.10); White Blood Count 10.07 K/ul (4.8-10.8)
[2024-07-16 09:14] LABS: BUN Creatinine Ratio 28.3 (10-20); Calcium 8.8 mg/dl (8.6-10.3); Creatinine Clr Calc Pharmacy 44.9 ml/min; Magnesium 1.8 mg/dl (1.7-2.4); Potassium 4.4 mmol/L (3.5-5.1)
[2024-07-16 13:22] LABS: Hematocrit (blood only) 27.9 % (42.0-52.0); Hemoglobin 9.1 g/dl (14.0-18.0)
--- NOTE | 2024-07-16 13:52 | Hospitalist Progress Note ---
Date of Service July 16, 2024 Assessment & Plan (1) Warm autoimmune hemolytic anemia: Plan: This is a 63 y/o male presenting with SOB/STOCK in the setting of AIHA with Hgb of 7.6, as well as with mild KRISSY and volume overload likely due to HFpEF. Hgb 7.6 --> 6.3 (has multiple antibodies normally takes 1 day to arrive) -Monitor H/H post transfusion -s/p 3 units PRBC. -CBC reviewed 07/16: hgb 9.[address] gonsalez, Oncology consulted - Solumedrol 1g x3 days - last dose 07/16 - reached out to Dr. Gonsalez 07/16 via [employer] who stated patient was ready for discharge from his standpoint. (2) Acute exacerbation of CHF (congestive heart failure): Plan: Trop 27 --> 28 --> 32 do not suspect ACS -Echo: Moderate concentric LVH, RV dilated, RV SF normal, LA and RA dilated, Mild aortic regurg, mild mitral regurg, RV systolic pressure elevated. Mild aortic root dilatation, IVC dilated. -Daily weights, strict I/O -Received IV lasix x2, further doses HELD to reassess volume/kidney status in AM (edema and SOB improving), pt not on baseline diuretics, hx of kidney transplant -Cont Metoprolol ER 100 mg daily (3) Acute kidney injury: Plan: In the setting of hx of kidney transplant Mycophenolate and Tacrolimus levels: Pending - continue Mycophenolate 500 BID per home dose - continue Tacrolimus 3 mg daily per home dose Home prednisone held in setting of high dose steroids finished 07/16. resume home prednisone 07/17. BMP reviewed 07/16: creatinine 1.91. Hold further dose of Lasix until KRISSY resolves. AM BMP. (4) Atrial fibrillation: Plan: rate controlled with metoprolol - historically, DOAC deferred in the setting of anemia, but recently tolerated Xarelto short term with hip fx, could reconsider when acute anemia improves. (5) Hypomagnesemia: Plan: Mag 1.4 on arrival, -Cont home Mg supplement 500 mg Hs -1g IV x 2 ordered -Magnesium reviewed 07/16: stable 1.8 Plan Chronic stable medical conditions: * Hypothyroidism - synthroid 125 mcg daily. TSH WNL 04/2024 * Gout - allopurinol 200 mg daily DVT PPx -- Given low H/H, will continue SCDs for now; Dispo: continued inpatient stay, anticipate discharge home 07/17 Admission and Anticipated Discharge Date Admission Date: July 13, 2024 Subjective Patient seen and examined this morning. patient reports to be feeling well today. states his SOB has resolved. Physical Exam Constitutional: WD/WN, vitals as above Eyes: PERRL, conjunctivae normal, anicteric sclerae Respiratory: normal respiratory effort, lungs clear to auscultation Cardiovascular: RRR, no murmur, no edema Psychiatric: A+Ox3, euthymic affect Results & Data Results & Data Vital Signs (Past 12 Hours) Vital Signs Temp Pulse Pulse Pulse Resp BP Pulse Ox 07/16/24 11:34 07/16/24 11:26 36.5 C 87 20 127/81 100 07/16/24 10:32 87 07/16/24 07:44 36.5 C 86 16 131/86 99 07/16/24 04:00 36.7 C 83 18 144/96 H 96 O2 Del Method 07/16/24 11:34 Room Air 07/16/24 11:26 Room Air 07/16/24 10:32 07/16/24 07:44 Room Air 07/16/24 04:00 Room Air PG Care Time/CCT Total # of Minutes Spent Total Time Spent with Patient: Total time spent is greater than 50% in coordination of care (as documented) at patient's floor/unit and/or counseling patient: Coding Level of Care Code 76412 SUB INP/OBS CARE 2/35MIN Diagnoses Warm autoimmune hemolytic anemia D59.11 Acute exacerbation of CHF (congestive heart failure) I50.9 Acute kidney injury N17.9 Atrial fibrillation I48.91 Hypomagnesemia E83.42
[2024-07-17 06:56] LABS: Hematocrit (blood only) 26.2 % (42.0-52.0); Hemoglobin 8.6 g/dl (14.0-18.0); Mean Corpuscular Hemoglobin 37.6 pg (25.0-34.0); Mean Corpuscular Hgb Conc 32.8 g/dL (32.0-36.0); Mean Corpuscular Volume 114.4 fL (80.0-100.0); Mean Platelet Volume 10.8 fL (9.4-12.4); Platelet Count 153 K/uL (130-400); RDW Standard Deviation 77.9 fL (36.4-46.3); Red Blood Count 2.29 M/uL (4.70-6.10)
[2024-07-17 07:32] LABS: BUN Creatinine Ratio 30.2 (10-20); Calcium 8.9 mg/dl (8.6-10.3); Creatinine Clr Calc Pharmacy 43.1 ml/min; Potassium 4.6 mmol/L (3.5-5.1)
[2024-07-17] MEDS: LACTATED RINGER'S 1,000 ML IV SCH (09:51)
[2024-07-17] MEDS ORDERED: IMMUNE GLOBULIN (HUMAN) SOLN IV SCH (14:30)
[2024-07-17] MEDS: Octagam 10% IVIG 20 gram bottle IV SCH (15:36)
--- NOTE | 2024-07-17 15:42 | Nephrology Consultation ---
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 Post transplant Cr stabilized at 1.4 * Continue current immunosuppressive regimen * Trough tacrolimus level is within acceptable limits (3) Autoimmune hemolytic anemia: * Solumedrol, Velcade as per hematology History of Present Illness Reason for Consultation: KRISSY/CKD, LURT Attending Physician: Giovanny Israel History of Present Illness Mr. Mandel is a 63-year-old white male who was seen at the request of the [facility] hospitalist service for evaluation of KRISSY/CKD, LURT. Information for the HPI is obtained from direct patient interview and review of the EMR. HPI is summarized as follows: Mr. 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 He was on hemodialysis for 1-1/2 years before he received a transplant from his stepson. This was performed at [facility] 02/2010. 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 Post transplant creatinine stabilized at 1.4. UACR has been 0.7. MEAGAN inhibitor therapy was stopped due to low blood pressure. Current immunosuppressive regimen consists of tacrolimus 2 mg qAM / 1 mg qPM, MMF 500 mg BID, prednisone 5 mg daily. Patient remains on metoprolol 100 mg daily due to history of ASCVD, prior CVA, atrial fibrillation. Mr. Mandel's medical history is also significant for autoimmune hemolytic anemia. First instance was in January 2024. He required blood transfusion and is now on Velcade therapy. Mr. Mandel was admitted to the [facility] 07/13/2024 for evaluation of STOCK. He was found to have Hgb 7.6-->6.3 w/ Cr 1.63. Hematology has confirmed AIHA and has prescribed IV Solumedrol and transfused 3 units PRBC. Allergies Allergy/AdvReac Type Severity Reaction Status Date / Time clopidogrel [From Plavix] Allergy Unknown Unknown Verified 05/24/24 10:19 [id number] Reductase AdvReac Intermediate myalgias Verified 05/24/24 10:19 Inhibitor [Srssgdx-Wis-Mjt Reductase Inhibitor] Home Medications Medication Instructions Recorded Confirmed Type mycophenolate mofetil 250 mg 500 mg (2 x 250 mg) PO BID #360 05/29/20 07/13/24 Rx capsule caps amoxicillin 500 mg capsule 2,000 mg PO DIRECTED PRN PRIOR 07/29/20 07/13/24 History TO DENTAL PROCEDURES multivitamin 1 tab PO QAM 08/02/21 07/13/24 History magnesium oxide 500 mg PO HS 09/04/23 07/13/24 History folic acid 1 mg tablet 1 mg PO BID #180 tabs 09/20/23 07/13/24 Rx pantoprazole 40 mg tablet,delayed 40 mg PO BID #180 tabs 12/06/23 07/13/24 Rx release calcium carbonate 500 mg PO QAM 01/21/24 07/13/24 History ferrous sulfate 325 mg (65 mg 325 mg PO BID #60 tabs 02/05/24 07/13/24 Rx iron) tablet prednisone 5 mg tablet 5 mg PO DAILY #90 tabs 02/27/24 07/13/24 Rx levothyroxine 125 mcg tablet 125 mcg PO QAM #90 tabs 03/04/24 07/13/24 Rx tacrolimus 1 mg capsule, 3 mg PO DAILY 04/16/24 07/13/24 History immediate-release metoprolol succinate 100 mg 100 mg PO HS #90 tabs 04/22/24 07/13/24 Rx tablet,extended release 24 hr acyclovir 400 mg tablet 400 mg PO BID 05/07/24 07/13/24 History ondansetron 4 mg disintegrating 4 mg PO Q8 PRN nausea #20 tabs 05/22/24 07/13/24 Rx tablet allopurinol 100 mg tablet 200 mg (2 x 100 mg) PO DAILY #60 06/03/24 07/13/24 Rx tabs Patient History Medical History Encounter for pre-operative examination History of non-ST elevation myocardial infarction (NSTEMI) entered into chart 01/2023 Osteoporosis Hypothyroidism Hyperlipidemia Hx of esophageal reflux controlled, stable per pt 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 Abdominal aortic aneurysm 4.9 cm on 01/2023 chest CTA CKD (chronic kidney disease) History of colon polyps Retroperitoneal mass lesion biopsy negative for malignancy 05/2022 per transplant record 03/17/23 Pneumonia HX Adrenal nodule monitored by PCP Arthritis On prednisone therapy Atrial fibrillation controlled w/ metoprolol, no cardio Rosales's esophagus with esophagitis Atrial flutter unaware 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 Warm autoimmune hemolytic anemia Sleep apnea no device Thoracic ascending aortic aneurysm 4.[address] 01/19/24 Hypertension controlled, stable per pt Limb alert care status left arm restriction History of blood transfusion 01/2024 Hx of herpetic maria History of COVID-19 07/2020- covid pneumonia, hospitalized; resolved History of renal dialysis prior to kidney transplant; has dialysis fistula left arm History of CVA (cerebrovascular accident) 2008, mild memory changes Surgical History History of esophagogastroduodenoscopy (EGD) Hx of cholecystectomy Hx of exploratory laparotomy [place] History of colonoscopy Family History Grandmother (Maternal) Alzheimer disease Mother Depression Denies family history of Ovarian cancer Prostate cancer Diabetes Heart disease Myocardial infarction Breast cancer Lung cancer COPD (chronic obstructive pulmonary disease) Colorectal cancer Hypertension Stroke Social History Smoking Status: Never smoker Second Hand Exposure: No; Do You Dip or Chew Tobacco: No; Hx Alcohol Use: No Hx Substance Use: No 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: Malaysian Communication Ability: Effective Visual Impairment: No Limitations Hearing Ability: Normal Special Education Secretary Required: No Beliefs That Will Affect Care: None marital status: Current Living Situation: Spouse current occupational status: employed current occupation: [email or web address] How many Children do You have: 1 Other Information That Helps Us Care for You: No Feels Safe at Home: Yes Childhood Exposure to Second-Hand Smoke: No Dental Care, Regularly: Yes Seatbelt Use: sometimes Sunscreen Use: No Assistive Devices: Cane and Walker Review of Systems Constitutional: no fever Eyes: no problem reported Ear, Nose, Mouth, Throat: no problem reported Respiratory: no cough and no dyspnea Cardiovascular: no chest pain Gastrointestinal: no abdominal pain, no nausea, no vomiting and no diarrhea/loose stools Genitourinary: no dysuria or no hematuria Integumentary: no rash Physical Exam Constitutional: not in distress Eyes: PERRL, conjunctivae normal, anicteric sclerae ENMT: external ear and nose normal, oropharynx normal Neck: trachea midline, no thyromegaly Respiratory: normal respiratory effort, lungs clear to auscultation Cardiovascular: RRR, no murmur, no edema Gastrointestinal (Abdomen): normal bowel sounds, soft, nontender, no hepatosplenomegaly Musculoskeletal: Extremities: no cyanosis and no clubbing Skin: no rashes, warm and dry Neurologic: awake; not confused Results & Data Vital Signs (Past 12 Hours) Vital Signs Temp Pulse Pulse Resp BP Pulse Ox O2 Del Method 07/17/24 14:16 94 H 07/17/24 11:33 36.4 C L 86 20 117/81 99 Nasal Cannula 07/17/24 07:48 Room Air 07/17/24 07:40 36.5 C 88 16 142/90 H 100 Room Air 07/17/24 07:12 83 O2 Flow Rate 07/17/24 14:16 07/17/24 11:33 2 07/17/24 07:48 07/17/24 07:40 07/17/24 07:12 Laboratory Results Laboratory Results WBC 10.90 K/ul (4.8-10.8) H 07/17/24 06:06 RBC 2.29 M/uL (4.70-6.10) L 07/17/24 06:06 Hgb 8.6 g/dl (14.0-18.0) L 07/17/24 06:06 POC Hgb 8.2 g/dl (14.0-18.0) L 07/13/24 11:06 Hct 26.2 % (42.0-52.0) L 07/17/24 06:06 POC Hct 24 % (42-52) L 07/13/24 11:06 MCV 114.4 fL (80.0-100.0) H 07/17/24 06:06 MCH 37.6 pg (25.0-34.0) H 07/17/24 06:06 MCHC 32.8 g/dL (32.0-36.0) 07/17/24 06:06 RDW Std Deviation 77.9 fL (36.4-46.3) H 07/17/24 06:06 RDW Coeff of Jaye 19.0 % (11.5-14.5) H 07/17/24 06:06 Plt Count 153 K/uL (130-400) 07/17/24 06:06 MPV 10.8 fL (9.4-12.4) 07/17/24 06:06 Immature Gran % (Auto) 0.6 % 07/13/24 10:54 Neut % (Auto) 86.3 % 07/13/24 10:54 Lymph % (Auto) 3.2 % 07/13/24 10:54 [place] % (Auto) 8.5 % 07/13/24 10:54 Eos % (Auto) 1.0 % 07/13/24 10:54 Baso % (Auto) 0.4 % 07/13/24 10:54 Neut # (Auto) 8.75 K/uL (1.40-6.50) H 07/13/24 10:54 Lymph # (Auto) 0.32 K/uL (1.20-3.40) L 07/13/24 10:54 [place] # (Auto) 0.86 K/uL (0.11-0.59) H 07/13/24 10:54 Eos # (Auto) 0.10 K/uL (0.00-0.50) 07/13/24 10:54 Baso # (Auto) 0.04 K/uL (0.00-0.20) 07/13/24 10:54 Immature Gran # (Auto) 0.06 K/uL (0.01-0.20) 07/13/24 10:54 Polychromasia 1+ 07/13/24 10:54 Macrocytosis Present 07/13/24 10:54 PT 12.5 Seconds (9.0-12.0) H 07/13/24 10:54 INR 1.2 (0.9-1.1) H 07/13/24 10:54 APTT 27 Seconds (21-31) 07/13/24 10:54 PTT Ratio 1.0 07/13/24 10:54 VBG pH 7.35 (7.36-7.41) L 07/13/24 10:54 VBG pCO2 38 mmHg (38-50) 07/13/24 10:54 VBG pO2 24 mmHg 07/13/24 10:54 VBG HCO3 21 mmol/L 07/13/24 10:54 VBG O2 Saturation < 60.0 % 07/13/24 10:54 VBG Base Excess -4.2 mEq/L 07/13/24 10:54 POC Sodium 139 mmol/L (135-144) 07/13/24 11:06 Sodium 137 mmol/L (136-145) 07/17/24 06:06 POC Potassium 4.1 mmol/L (3.3-5.0) 07/13/24 11:06 Potassium 4.6 mmol/L (3.5-5.1) 07/17/24 06:06 POC Chloride 108 mmol/L (101-112) 07/13/24 11:06 Chloride 104 mmol/L (98-107) 07/17/24 06:06 Carbon Dioxide 23 mmol/L (21-32) 07/17/24 06:06 POC Total CO2 19 mmol/L (24-31) L 07/13/24 11:06 Anion Gap 10 (3-11) 07/17/24 06:06 POC Anion Gap 17.0 mmol/L (16-25) 07/13/24 11:06 POC BUN 44 mg/dl (7-18) H 07/13/24 11:06 BUN 60 mg/dl (6-23) H 07/17/24 06:06 Creatinine 1.99 mg/dl (0.6-1.4) H 07/17/24 06:06 POC Creatinine 1.8 mg/dl (0.6-1.3) H 07/13/24 11:06 Est Cr Clr Drug Dosing 43.1 ml/min 07/17/24 06:06 eGFR 37.03 07/17/24 06:06 BUN/Creatinine Ratio 30.2 (10-20) H 07/17/24 06:06 Glucose 131 mg/dl (70-99(Fasting)) H 07/17/24 06:06 POC Glucose (other) 106 mg/dl (70-99) H 07/13/24 11:06 Calcium 8.9 mg/dl (8.6-10.3) 07/17/24 06:06 POC Ioniz Calcium [place] 1.18 mmol/l (1.12-1.32) 07/13/24 11:06 Magnesium 1.8 mg/dl (1.7-2.4) 07/16/24 08:03 Total Bilirubin 5.1 mg/dl (0.2-1.0) H 07/14/24 07:33 Direct Bilirubin 1.7 mg/dl (0-0.2) H 07/14/24 07:33 AST 35 U/L (13-39) 07/14/24 07:33 ALT 13 U/L (7-52) 07/14/24 07:33 Alkaline Phosphatase 77 U/L (34-104) 07/14/24 07:33 Troponin I High Sens 32.9 pg/ml (0-20) H 07/13/24 18:09 B-Natriuretic Peptide 594 pg/ml (0-100) H 07/13/24 10:54 Total Protein 5.8 gm/dl (6.0-8.3) L 07/14/24 07:33 Albumin 3.5 gm/dl (3.4-5.0) 07/14/24 07:33 Lipase 56 U/L (11-82) 07/13/24 10:54 Urine Color [place] 07/13/24 13:18 Urine Appearance Clear (Clear) 07/13/24 13:18 Urine pH 5.5 (4.5-7.5) 07/13/24 13:18 Ur Specific [place] 1.012 (1.000-1.030) 07/13/24 13:18 Urine Protein Trace (Negative) H 07/13/24 13:18 Urine Glucose (UA) Negative (Negative) 07/13/24 13:18 Urine Ketones Negative (Negative) 07/13/24 13:18 Urine Blood 3+ (Negative) H 07/13/24 13:18 Urine Nitrite Negative (Negative) 07/13/24 13:18 Urine Bilirubin Negative (Negative) 07/13/24 13:18 Urine Urobilinogen Negative (Negative) 07/13/24 13:18 Ur Leukocyte Esterase Trace (Negative) H 07/13/24 13:18 Urine WBC (Auto) 0-5 /hpf (0-5) 07/13/24 13:18 Urine RBC (Auto) >20 /hpf (0-2) H 07/13/24 13:18 U Hyaline Cast (Auto) 0-2 /lpf (0-2) 07/13/24 13:18 U Epithel Cells (Auto) 0-2 /hpf (0-2) 07/13/24 13:18 Urine Bacteria (Auto) None Seen (None Seen) 07/13/24 13:18 Tacrolimus 7.2 mcg/L 07/13/24 10:54 Adenovirus (PCR) Not Detected (NotDetected) 07/13/24 11:13 B. pertussis DNA (PCR) Not Detected (NotDetected) 07/13/24 11:13 B.parapertussis DNA PCR Not Detected (NotDetected) 07/13/24 11:13 C. pneumoniae DNA (PCR) Not Detected (NotDetected) 07/13/24 11:13 Coronavirus OC43 (PCR) Not Detected (NotDetected) 07/13/24 11:13 Coronavirus HKU1 (PCR) Not Detected (NotDetected) 07/13/24 11:13 Coronavirus 229E (PCR) Not Detected (NotDetected) 07/13/24 11:13 SARS-CoV-2 (PCR) Not Detected (NotDetected) 07/13/24 11:13 Coronavirus NL63 (PCR) Not Detected (NotDetected) 07/13/24 11:13 Human Metapneumovir PCR Not Detected (NotDetected) 07/13/24 11:13 Influenza Type A (PCR) Not Detected (NotDetected) 07/13/24 11:13 Influenza Type B (PCR) Not Detected (NotDetected) 07/13/24 11:13 M. pneumoniae (PCR) Not Detected (NotDetected) 07/13/24 11:13 Parainfluenza 1 (PCR) Not Detected (NotDetected) 07/13/24 11:13 Parainfluenza 2 (PCR) Not Detected (NotDetected) 07/13/24 11:13 Parainfluenza 3 (PCR) Not Detected (NotDetected) 07/13/24 11:13 Parainfluenza 4 (PCR) Not Detected (NotDetected) 07/13/24 11:13 RSV (PCR) Not Detected (NotDetected) 07/13/24 11:13 Entero/Rhino (PCR) Not Detected (NotDetected) 07/13/24 11:13 Blood Type A Positive 07/13/24 10:54 Antibody Screen POSITIVE A 07/13/24 10:54 Antibody Identification Auto Cold Agglutinin Auto Gil Agglutinin Anti-E 07/13/24 10:54 Antibody Identification Auto Cold Agglutinin Auto Gil Agglutinin Anti-E 07/13/24 10:54 Antibody Identification Auto Cold Agglutinin Auto Gil Agglutinin Anti-E 07/13/24 10:54 Antibody ID Comment Cancelled 07/13/24 10:54 Crossmatch See Detail 07/13/24 10:54 Laboratory Tests 07/13/24 10:54 Mycophenolic Acid Pending Tacrolimus 7.2 Impressions Chest X-Ray 07/13/24 10:45 SINGLE VIEW CHEST CLINICAL HISTORY: Dyspnea FINDINGS: An AP, portable, upright chest radiograph is compared to study dated 01/21/2024 and correlated with chest CT dated 06/27/2024. The heart is markedly enlarged. There is pulmonary vascular congestion. Airspace opacities are seen bilaterally. Atelectasis is noted at the lung bases. No large pleural effusion or pneumothorax is seen. The skeletal structures are osteopenic. There is chronic deformity of the left clavicle. IMPRESSION: 1. Cardiomegaly with evidence of congestive failure. 2. Bilateral airspace opacities likely represent pulmonary edema. Correlate clinically for evidence of a superimposed pneumonitis. Radiographic follow-up to resolution is recommended ACT 112: Negative or not required by law. Electronically signed by: Jay Lewis M.D. 07/13/2024 11:17 AM Venous Doppler Study 07/13/24 11:23 ULTRASOUND BILATERAL LOWER EXTREMITY VENOUS CLINICAL HISTORY: Lower extremity edema. COMPARISON STUDY: Bilateral lower extremity venous ultrasound dated 01/23/2024 TECHNIQUE: Real-time, grayscale, and color Doppler sonography of the deep veins of the right and left lower extremity was performed from the inguinal crease to the calf. Compression and augmentation were utilized. FINDINGS: There is no sonographic evidence of deep venous thrombosis identified in the right or left lower extremity. The common femoral, superficial femoral, and popliteal veins are patent and normally compressible bilaterally. The greater saphenous vein and the profunda femoris vein at the junction with the common femoral vein are clear in both legs. The visualized calf veins are patent bilaterally. Soft tissue edema is noted in both legs. IMPRESSION: There is no sonographic evidence of deep venous thrombosis identified in the right or left lower extremity. ACT 112: Negative or not required by law. Electronically signed by: Jay Lewis M.D. 07/13/2024 12:47 PM PG Care Time/CCT Total # of Minutes Spent Total Time Spent with Patient: Total time spent is greater than 50% in coordination of care (as documented) at patient's floor/unit and/or counseling patient: Coding Level of Care Code 53405 IN/OBS CONSULT LVL 5,80M Diagnoses Acute kidney injury N17.9 Kidney transplant status, living unrelated donor Z94.0 Autoimmune hemolytic anemia D59.10
--- NOTE | 2024-07-17 15:50 | Hospitalist Progress Note ---
Date of Service July 17, 2024 Assessment & Plan (1) Warm autoimmune hemolytic anemia: Plan: This is a 63 y/o male presenting with SOB/STOCK in the setting of AIHA with Hgb of 7.6, as well as with mild KRISSY and volume overload likely due to HFpEF. Hgb 7.6 --> 6.3 (has multiple antibodies normally takes 1 day to arrive) -Monitor H/H post transfusion -s/p 3 units PRBC. -CBC reviewed 07/17: hgb 8.[address] gonsalez, Oncology consulted - Solumedrol 1g x3 days - last dose 07/16 -Discussed via phone today w/ Dr. Gonsalez who recommended patient be given IVIG 1g once daily. AM CBC (2) Acute exacerbation of CHF (congestive heart failure): Plan: Trop 27 --> 28 --> 32 do not suspect ACS -Echo: Moderate concentric LVH, RV dilated, RV SF normal, LA and RA dilated, Mild aortic regurg, mild mitral regurg, RV systolic pressure elevated. Mild aortic root dilatation, IVC dilated. -Daily weights, strict I/O -Received IV lasix x2, further doses HELD to reassess volume/kidney status in AM (edema and SOB improving), pt not on baseline diuretics, hx of kidney transplant -Cont Metoprolol ER 100 mg daily (3) Acute kidney injury: Plan: In the setting of hx of kidney transplant Mycophenolate and Tacrolimus levels: Pending - continue Mycophenolate 500 BID per home dose - continue Tacrolimus 3 mg daily per home dose Home prednisone held in setting of high dose steroids finished 07/16. resume home prednisone 07/17. BMP reviewed 07/17: creatinine 1.99. s/p 1L IVF Nephrology consulted, appreciate recommendations. AM BMP. (4) Atrial fibrillation: Plan: rate controlled with metoprolol - historically, DOAC deferred in the setting of anemia, but recently tolerated Xarelto short term with hip fx, could reconsider when acute anemia improves. (5) Hypomagnesemia: Plan: Mag 1.4 on arrival, -Cont home Mg supplement 500 mg Hs -s/p IV replacement. -Magnesium reviewed 07/16: stable 1.8 Am Magnesium Plan Chronic stable medical conditions: * Hypothyroidism - synthroid 125 mcg daily. TSH WNL 04/2024 * Gout - allopurinol 200 mg daily DVT PPx -- Given low H/H, will continue SCDs for now; Dispo: continued inpatient stay pending stabilization of hgb and creatinine. Admission and Anticipated Discharge Date Admission Date: July 13, 2024 Subjective Patient seen and examined this morning. Patient denied any complaints. Patient did state he did not drink much water yesterday and had decreased urine output. Physical Exam 2 Constitutional: WD/WN, vitals as above Eyes: PERRL, conjunctivae normal, anicteric sclerae Respiratory: breathing unlabored Cardiovascular: well perfused Psychiatric: A+Ox3, euthymic affect Results & Data Results & Data Vital Signs (Past 12 Hours) Vital Signs Temp Pulse Pulse Resp BP Pulse Ox O2 Del Method 07/17/24 14:16 94 H 07/17/24 11:33 36.4 C L 86 20 117/81 99 Nasal Cannula 07/17/24 07:48 Room Air 07/17/24 07:40 36.5 C 88 16 142/90 H 100 Room Air 07/17/24 07:12 83 O2 Flow Rate 07/17/24 14:16 07/17/24 11:33 2 07/17/24 07:48 07/17/24 07:40 07/17/24 07:12 Laboratory Results 07/17/24 06:06 07/17/24 06:06 PG Care Time/CCT Total # of Minutes Spent Total Time Spent with Patient: Total time spent is greater than 50% in coordination of care (as documented) at patient's floor/unit and/or counseling patient: Coding Level of Care Code 07820 SUB INP/OBS CARE 2/35MIN Diagnoses Warm autoimmune hemolytic anemia D59.11 Acute exacerbation of CHF (congestive heart failure) I50.9 Acute kidney injury N17.9 Atrial fibrillation I48.91 Hypomagnesemia E83.42
[2024-07-17 18:47] LABS: Appearance Urine Clear (Clear); Bacteria Urine Automated None Seen (None Seen); Bilirubin Urine Negative (Negative); Blood Urine 1+ (Negative); Color Urine Dark Yellow; Epithelial Cell Urine Auto 0-2 /hpf (0-2); Glucose Urine UA Negative (Negative); Ketones Urine Negative (Negative); Leukocyte Esterase Urine Negative (Negative); Nitrite Urine Negative (Negative); Protein Urine Trace (Negative); Specific Gravity Urine 1.018 (1.000-1.030); Urobilinogen Urine Negative (Negative); WBC Urine Automated 0-5 /hpf (0-5)
[2024-07-18 03:37] LABS: Mycophenolic Acid 0.6 mcg/mL (1.0-3.5)
[2024-07-18 06:40] LABS: Hemoglobin 8.3 g/dl (14.0-18.0); Mean Corpuscular Hemoglobin 36.6 pg (25.0-34.0); Mean Corpuscular Hgb Conc 31.9 g/dL (32.0-36.0); Mean Corpuscular Volume 114.5 fL (80.0-100.0); Mean Platelet Volume 10.8 fL (9.4-12.4); Nucleated RBC # (auto) 0.02 K/uL (0.00-0.12); Nucleated RBC % (auto) 0.2 %; Platelet Count 150 K/uL (130-400); RDW Standard Deviation 74.9 fL (36.4-46.3); Red Blood Count 2.27 M/uL (4.70-6.10); White Blood Count 11.58 K/ul (4.8-10.8)
[2024-07-18 06:48] LABS: BUN Creatinine Ratio 35.2 (10-20); Calcium 8.6 mg/dl (8.6-10.3); Creatinine Clr Calc Pharmacy 44.9 ml/min; Potassium 4.3 mmol/L (3.5-5.1)
[2024-07-18 08:02] VITALS: RESP 18
--- NOTE | 2024-07-18 09:09 | Nephrology Progress Note ---
Date of Service July 18, 2024 Assessment & Plan (1) Acute kidney injury: Plan: * KRISSY likely on the basis of anemia (Hgb 6.3) associated w/ AIHA * Although urine microscopy is negative for granular casts, clinically suspect ATN * Creatinine has remained stable at 1.9, UO 500 cc last shift. Volume status and electrolyte balance are acceptable * Continue supportive care and current immunosuppressive regimen. 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 Post transplant Cr stabilized at 1.4 * Continue current immunosuppressive regimen * Trough tacrolimus level is within acceptable limits (3) Autoimmune hemolytic anemia: Plan: * Solumedrol, Velcade as per hematology Admission and Anticipated Discharge Date Admission Date: July 13, 2024 Subjective Mr. Mandel was evaluated in his hospital room this morning. He denied fever, dyspnea, pain overlying the transplant allograft, gross hematuria or uremic symptoms. He reports a good appetite and improved stamina. No new medical concerns were voiced Review of Systems Constitutional: no fever Eyes: no problem reported Ear, Nose, Mouth, Throat: no problem reported Respiratory: no cough and no dyspnea Cardiovascular: no chest pain Gastrointestinal: no abdominal pain, no nausea, no vomiting and no diarrhea/loose stools Genitourinary: no dysuria or no hematuria Integumentary: no rash Physical Exam Constitutional: not in distress Eyes: PERRL, conjunctivae normal, anicteric sclerae ENMT: external ear and nose normal, oropharynx normal Neck: trachea midline, no thyromegaly Respiratory: normal respiratory effort, lungs clear to auscultation Cardiovascular: RRR, no murmur, no edema Gastrointestinal (Abdomen): normal bowel sounds, soft, nontender, no hepatosplenomegaly Musculoskeletal: Extremities: no cyanosis and no clubbing Skin: no rashes, warm and dry Neurologic: awake; not confused Results & Data Vital Signs (Past 12 Hours) Vital Signs Temp Pulse Pulse Pulse Resp BP Pulse Ox 07/18/24 08:01 36.3 C L 82 18 135/89 100 07/18/24 07:47 07/18/24 05:43 73 07/18/24 04:07 36.3 C L 87 16 129/86 98 07/17/24 23:40 36.3 C L 82 18 135/91 99 07/17/24 22:51 07/17/24 21:58 86 O2 Del Method 07/18/24 08:01 Room Air 07/18/24 07:47 Room Air 07/18/24 05:43 07/18/24 04:07 Room Air 07/17/24 23:40 Room Air 07/17/24 22:51 Room Air 07/17/24 21:58 Laboratory Results Laboratory Results - last 24 hr 07/13/24 07/13/24 07/17/24 10:54 11:44 18:30 WBC RBC Hgb Hct MCV MCH MCHC RDW Std Deviation RDW Coeff of Jaye Plt Count MPV Absolute Nucleated RBC Nucleated RBC % (auto) Sodium Potassium Chloride Carbon Dioxide Anion Gap BUN Creatinine Est Cr Clr Drug Dosing eGFR BUN/Creatinine Ratio Glucose Calcium Urine Color Dark Yellow Urine Appearance Clear Urine pH 5.0 Ur Specific [place] 1.018 Urine Protein Trace H Urine Glucose (UA) Negative Urine Ketones Negative Urine Blood 1+ H Urine Nitrite Negative Urine Bilirubin Negative Urine Urobilinogen Negative Ur Leukocyte Esterase Negative Urine WBC (Auto) 0-5 Urine RBC (Auto) 3-5 H U Hyaline Cast (Auto) 3-5 H U Epithel Cells (Auto) 0-2 Urine Bacteria (Auto) None Seen Mycophenolic Acid 0.6 L MPA Glucuronide 91.0 Antibody ID Referred 07/18/24 05:37 WBC 11.58 H RBC 2.27 L Hgb 8.3 L Hct 26.0 L MCV 114.5 H MCH 36.6 H MCHC 31.9 L RDW Std Deviation 74.9 H RDW Coeff of Jaye 18.0 H Plt Count 150 MPV 10.8 Absolute Nucleated RBC 0.02 Nucleated RBC % (auto) 0.2 Sodium 134 L Potassium 4.3 Chloride 101 Carbon Dioxide 25 Anion Gap 8 BUN 69 H Creatinine 1.96 H Est Cr Clr Drug Dosing 44.9 eGFR 37.71 BUN/Creatinine Ratio 35.2 H Glucose 106 H Calcium 8.6 Urine Color Urine Appearance Urine pH Ur Specific [place] Urine Protein Urine Glucose (UA) Urine Ketones Urine Blood Urine Nitrite Urine Bilirubin Urine Urobilinogen Ur Leukocyte Esterase Urine WBC (Auto) Urine RBC (Auto) U Hyaline Cast (Auto) U Epithel Cells (Auto) Urine Bacteria (Auto) Mycophenolic Acid MPA Glucuronide Antibody ID Referred PG Care Time/CCT Total # of Minutes Spent Total Time Spent with Patient: Total time spent is greater than 50% in coordination of care (as documented) at patient's floor/unit and/or counseling patient: Coding Level of Care Code 05466 SUB INP/OBS CARE 3/50MIN Diagnoses Acute kidney injury N17.9 Kidney transplant status, living unrelated donor Z94.0 Autoimmune hemolytic anemia D59.10
[2024-07-18] MEDS: TACROLIMUS 1 MG CAP PO SCH ×2 (09:12→20:15)
[2024-07-18] MEDS: MICONAZOLE NITRATE POWDER 85 GM EXT PRN (10:15)
--- NOTE | 2024-07-18 16:09 | Hospitalist Progress Note ---
Date of Service July 18, 2024 Assessment & Plan (1) Warm autoimmune hemolytic anemia: Plan: This is a 63 y/o male presenting with SOB/STOCK in the setting of AIHA with Hgb of 7.6, as well as with mild KRISSY and volume overload likely due to HFpEF. Hgb 7.6 --> 6.3 (has multiple antibodies normally takes 1 day to arrive) -Monitor H/H post transfusion -s/p 3 units PRBC. -CBC reviewed 07/18: hgb 8.[address] gonsalez, Oncology consulted - Solumedrol 1g x3 days - last dose 07/16 -Discussed via phone 07/17 w/ Dr. Gonsalez who recommended patient be given IVIG 1g once daily. AM CBC (2) Acute exacerbation of CHF (congestive heart failure): Plan: Trop 27 --> 28 --> 32 do not suspect ACS -Echo: Moderate concentric LVH, RV dilated, RV SF normal, LA and RA dilated, Mild aortic regurg, mild mitral regurg, RV systolic pressure elevated. Mild aortic root dilatation, IVC dilated. -Daily weights, strict I/O -Received IV lasix x2 -Cont Metoprolol ER 100 mg daily (3) Acute kidney injury: Plan: In the setting of hx of kidney transplant Mycophenolate and Tacrolimus levels: acceptable - continue Mycophenolate 500 BID per home dose - continue Tacrolimus 3 mg daily per home dose per patient he takes 2mg in AM and 1mg PM Home prednisone held in setting of high dose steroids finished 07/16. resume home prednisone 07/17. BMP reviewed 07/18: creatinine 1.96 s/p 1L IVF Nephrology consult/progress note reviewed 07/18 KRISSY likely due to anemia clinically suspect ATN supportive care and immunosuppressive regimen. AM BMP. (4) Atrial fibrillation: Plan: rate controlled with metoprolol - historically, DOAC deferred in the setting of anemia, but recently tolerated Xarelto short term with hip fx, could reconsider when acute anemia improves. (5) Hypomagnesemia: Plan: Mag 1.4 on arrival, -Cont home Mg supplement 500 mg Hs -s/p IV replacement. -Magnesium reviewed 07/16: stable 1.8 Am Magnesium Plan Chronic stable medical conditions: * Hypothyroidism - synthroid 125 mcg daily. TSH WNL 04/2024 * Gout - allopurinol 200 mg daily DVT PPx -- Given low H/H, will continue SCDs for now; Dispo: continued inpatient stay pending stabilization of hgb and creatinine. Admission and Anticipated Discharge Date Admission Date: July 13, 2024 Subjective Patient seen and examined this morning. patient denied any acute complaints today. Physical Exam 2 Constitutional: WD/WN, vitals as above Eyes: PERRL, conjunctivae normal, anicteric sclerae Respiratory: breathing unlabored Cardiovascular: well perfused Psychiatric: A+Ox3, euthymic affect Results & Data Results & Data Vital Signs (Past 12 Hours) Vital Signs Temp Pulse Pulse Pulse Resp BP Pulse Ox 07/18/24 15:47 36.7 C 77 18 111/76 100 07/18/24 13:06 83 07/18/24 11:27 36.4 C L 82 18 126/82 100 07/18/24 08:01 36.3 C L 82 18 135/89 100 07/18/24 07:47 07/18/24 05:43 73 07/18/24 04:07 36.3 C L 87 16 129/86 98 O2 Del Method 07/18/24 15:47 Room Air 07/18/24 13:06 07/18/24 11:27 Room Air 07/18/24 08:01 Room Air 07/18/24 07:47 Room Air 07/18/24 05:43 07/18/24 04:07 Room Air Laboratory Results 07/18/24 05:37 07/18/24 05:37 PG Care Time/CCT Total # of Minutes Spent Total Time Spent with Patient: Total time spent is greater than 50% in coordination of care (as documented) at patient's floor/unit and/or counseling patient: Coding Level of Care Code 85971 SUB INP/OBS CARE 2/35MIN Diagnoses Warm autoimmune hemolytic anemia D59.11 Acute exacerbation of CHF (congestive heart failure) I50.9 Acute kidney injury N17.9 Atrial fibrillation I48.91 Hypomagnesemia E83.42
[2024-07-19 06:22] LABS: Hematocrit (blood only) 27.2 % (42.0-52.0); Hemoglobin 8.9 g/dl (14.0-18.0); Mean Corpuscular Hemoglobin 37.6 pg (25.0-34.0); Mean Corpuscular Hgb Conc 32.7 g/dL (32.0-36.0); Mean Corpuscular Volume 114.8 fL (80.0-100.0); Mean Platelet Volume 10.9 fL (9.4-12.4); Platelet Count 170 K/uL (130-400); RDW Coefficient of Variation 17.2 % (11.5-14.5); Red Blood Count 2.37 M/uL (4.70-6.10); White Blood Count 12.95 K/ul (4.8-10.8)
[2024-07-19 06:42] LABS: BUN Creatinine Ratio 38.8 (10-20); Calcium 8.8 mg/dl (8.6-10.3); Creatinine Clr Calc Pharmacy 55.2 ml/min; Magnesium 1.7 mg/dl (1.7-2.4); Potassium 4.2 mmol/L (3.5-5.1)
[2024-07-19 07:34] VITALS: BP 118/77; TEMP 98.8; O2SAT 99
--- NOTE | 2024-07-19 08:47 | Nephrology Progress Note ---
Date of Service July 19, 2024 Assessment & Plan (1) Acute kidney injury: Plan: * KRISSY likely on the basis of anemia (Hgb 6.3) associated w/ AIHA * Although urine microscopy is negative for granular casts, clinically suspect ATN * Creatinine has improved to 1.6, UO 1653 cc last shift. Volume status and electrolyte balance are acceptable * Continue current immunosuppressive regimen * I have sent task to nephrology classification officer to contact patient and schedule follow up visit w/ Dr. Oro in 7-14 days. Please advise patient to have non-fasting blood work completed 1-2 days prior to visit. 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 Post transplant Cr stabilized at 1.4 * Continue current immunosuppressive regimen * Trough tacrolimus level is within acceptable limits (3) Autoimmune hemolytic anemia: Plan: * Solumedrol, Velcade as per hematology Admission and Anticipated Discharge Date Admission Date: July 13, 2024 Subjective Mr. Mandel was evaluated in his hospital room this morning. He denied fever, dyspnea, pain overlying the transplant allograft, gross hematuria or uremic symptoms. He reports a good appetite and improved stamina. No new medical concerns were voiced Review of Systems Constitutional: no fever Eyes: no problem reported Ear, Nose, Mouth, Throat: no problem reported Respiratory: no cough and no dyspnea Cardiovascular: no chest pain Gastrointestinal: no abdominal pain, no nausea, no vomiting and no diarrhea/loose stools Genitourinary: no dysuria or no hematuria Integumentary: no rash Physical Exam Constitutional: not in distress Eyes: PERRL, conjunctivae normal, anicteric sclerae ENMT: external ear and nose normal, oropharynx normal Neck: trachea midline, no thyromegaly Respiratory: normal respiratory effort, lungs clear to auscultation Cardiovascular: RRR, no murmur, no edema Gastrointestinal (Abdomen): normal bowel sounds, soft, nontender, no hepatosplenomegaly Musculoskeletal: Extremities: no cyanosis and no clubbing Skin: no rashes, warm and dry Neurologic: awake; not confused Results & Data Vital Signs (Past 12 Hours) Vital Signs Temp Pulse Pulse Resp BP Pulse Ox O2 Del Method 07/19/24 07:33 37.1 C 79 18 118/77 99 Room Air 07/19/24 04:00 36.5 C 86 18 134/92 95 Room Air 07/18/24 23:40 36.3 C L 87 18 133/91 97 Room Air 07/18/24 23:20 Room Air 07/18/24 21:39 83 Laboratory Results Laboratory Results - last 24 hr 07/13/24 07/18/24 07/19/24 10:54 09:09 05:58 WBC 12.95 H RBC 2.37 L Hgb 8.9 L Hct 27.2 L MCV 114.8 H MCH 37.6 H MCHC 32.7 RDW Std Deviation 73.0 H RDW Coeff of Jaye 17.2 H Plt Count 170 MPV 10.9 ESR 9 Sodium 132 L Potassium 4.2 Chloride 102 Carbon Dioxide 23 Anion Gap 7 BUN 62 H Creatinine 1.60 H D Est Cr Clr Drug Dosing 55.2 eGFR 48.11 BUN/Creatinine Ratio 38.8 H Glucose 102 H Calcium 8.8 Magnesium 1.7 C-Reactive Protein 3.33 H Procalcitonin 0.12 Mycophenolic Acid 0.6 L MPA Glucuronide 91.0 PG Care Time/CCT Total # of Minutes Spent Total Time Spent with Patient: Total time spent is greater than 50% in coordination of care (as documented) at patient's floor/unit and/or counseling patient: Coding Level of Care Code 90405 SUB INP/OBS CARE 3/50MIN Diagnoses Acute kidney injury N17.9 Kidney transplant status, living unrelated donor Z94.0 Autoimmune hemolytic anemia D59.10
--- NOTE | 2024-07-19 09:26 | Discharge Summary ---
Discharge Summary Date of Service July 19, 2024 Principal Dx & Hospital Course #1 = Principal Diagnosis (1) Warm autoimmune hemolytic anemia: This is a 63 y/o male presenting with SOB/STOCK in the setting of AIHA with Hgb of 7.6, as well as with mild KRISSY and volume overload likely due to HFpEF. Hgb 7.6 --> 6.3 (has multiple antibodies normally takes 1 day to arrive) -Monitor H/H post transfusion -s/p 3 units PRBC. -Hemoglobin day of discharge 8.[address] gonsalez, Oncology consulted - Solumedrol 1g x3 days - last dose 07/16 -IVIG x 2 doses - last dose 07/18. -Patient is to follow up outpatient in clinic. Repeat CBC in one week from discharge. (2) Acute exacerbation of CHF (congestive heart failure): Trop 27 --> 28 --> 32 do not suspect ACS -Echo: Moderate concentric LVH, RV dilated, RV SF normal, LA and RA dilated, Mild aortic regurg, mild mitral regurg, RV systolic pressure elevated. Mild aortic root dilatation, IVC dilated. -Daily weights, strict I/O -Received IV lasix x2 -Cont Metoprolol ER 100 mg daily (3) Acute kidney injury: In the setting of hx of kidney transplant Mycophenolate and Tacrolimus levels: acceptable - continue Mycophenolate 500 BID per home dose - continue Tacrolimus 3 mg daily per home dose per patient he takes 2mg in AM and 1mg PM Home prednisone held in setting of high dose steroids finished 07/16. resumed home prednisone 07/17. Creatinine improved to 1.60 day fo discharge. Nephrology consult/progress note reviewed 07/18 KRISSY likely due to anemia clinically suspect ATN supportive care and immunosuppressive regimen. Follow up in nephrology clinic 7-10 days from discharge. BMP repeat in 1 week from discharge. (4) Atrial fibrillation: rate controlled with metoprolol - historically, DOAC deferred in the setting of anemia, but recently tolerated Xarelto short term with hip fx discuss anticoagulation further with hematology/PCP outpatient. (5) Hypomagnesemia: Mag 1.4 on arrival, -Cont home Mg supplement 500 mg Hs -s/p IV replacement. -magnesium 1.7 day of discharge. Plan Chronic stable medical conditions: * Hypothyroidism - synthroid 125 mcg daily. TSH WNL 04/2024 * Gout - allopurinol 200 mg daily Admission HPI Per Admitting Provider This is a 63 y/o male with MHx significant for renal transplant (on prednisone, tacrolimus, and mycophenolate), warm autoimmune hemolytic anemia (multiple blood transfusions), CAD/HLD, prior CVA, A fib (NOT on any anticoagulants at this time), HTN, and hypothyroidism among other medical conditions who comes in with SOB. Patient states that he recently had R MULUGETA about 05/24/2024. After the surgery, he states he has been recovering quite well. He did have a blood transfusion while he was in the hospital on 05/30. He did develop a flare of gout ~05/31 fr which his PCP had put him on a course of steroids (tapered over 2 weeks, now down to his baseline dose). He was also started on allopurinol at that time. Since the gout flare, he had been doing better. 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 He was scheduled for f/u this upcoming Sunday 07/15 for repeat bloodwork with possible transfusion on Tuesday 07/17. However, he noticed that in the past several days he has developed increased STOCK. It appears to resolved with rest, but has been getting progressively worse, especially since . Given hat symptoms were similar to past instances in which his H/H has been down, he decided to come in for evaluation and possible transfusion. Patient does note that in addition to his breathing symptoms, his b/l LE appear somewhat more swollen. Patient denies any chest pain or palpitations. Patient denies any blood in stool or melena. Patient denies n/v. He has been having some diarrhea. Denies f/c. Denies cough. Denies CP. Has been taking all his transplant medications as prescribed. Patient notes that he is NOT on any blood thinners at this time for his A fib. He states that he had been on Eliquis previously, but that was stopped. He also states that he was on Xarelto 10 mg daily for 1 month after the R hip surgery, but that has now been stopped as well. Discharge Exam Constitutional WD/WN, vitals as above Eyes PERRL, conjunctivae normal, anicteric sclerae Respiratory breathing unlabored Cardiovascular well perfused Skin no rashes, warm and dry Psychiatric A+Ox3, euthymic affect Discharge Plan Discharge Items Patient Disposition: Home - Self-Care Reason For Visit: SHORTNESS OF BREATH Discharge Diagnosis: Autoimmune hemolytic anemia, Acute Kidney Injury Activity: Resume your previous activity Non-emergency contact: Primary Care Provider, Metal Drawer and Oncologist Call non-emergency contact if: you have any medication questions and your symptoms worsen Follow-up/Referrals: Santos Rivers MD [Primary Care Provider] - Diet: Heart Healthy Ambulatory Orders: Basic Metabolic Panel (Routine) Timeframe: 20240726 Location: Determined by Patient Ordered By: Cathy Cloud Complete Blood Count no Diff (Timed) Timeframe: 20240726 Location: Determined by Patient Ordered By: Cathy Cloud Addtl Attending Provider Instructions: Mr. Mandel, You were recently hospitalized for shortness of breath and found to have low hemoglobin. As a result of this, your kidney's suffered an acute injury but your lab work is improving. Please see recommendations below regarding your discharge. 1. Please follow up with hematology outpatient 2. Please follow up with your lens engraver within 7-10 days of discharge. If you do not hear anything from their office by 07/23 please call them: [phone] 3. Please see your PCP within 1-2 weeks of discharge. 4. You may resume your outpatient medications. 5. Please obtain labs in 1 week from discharge to recheck your blood counts and kidney function. If you develop any worsening shortness of breath, chest pain, dizziness, or weakness please report back to the ER for further care. Sincerely, Cathy Cloud PA-C Pending Studies at Discharge: No Stand-Alone Forms: My [facility] [employer], Smoking Cessation Medications and DC Order Prescriptions: Continued mycophenolate mofetil 250 mg capsule 500 mg PO BID Qty: 360 3RF folic acid 1 mg tablet 1 mg PO BID Qty: 180 3RF pantoprazole 40 mg tablet,delayed release (DR/EC) 40 mg PO BID Qty: 180 3RF ferrous sulfate 325 mg (65 mg iron) tablet 325 mg PO BID Qty: 60 0RF prednisone 5 mg tablet 5 mg PO DAILY Qty: 90 3RF Hold Instructions: Resume on 02/14/24. resume after completion of taper levothyroxine 125 mcg tablet 125 mcg PO QAM Qty: 90 1RF Rx Instructions: TAKE 1 TABLET BY MOUTH EVERY DAY metoprolol succinate 100 mg tablet extended release 24 hr 100 mg PO HS Qty: 90 1RF ondansetron 4 mg tablet,disintegrating 4 mg PO Q8 PRN (Reason: nausea) Qty: 20 1RF Rx Instructions: Take as needed for nausea allopurinol 100 mg tablet 200 mg PO DAILY Qty: 60 2RF tacrolimus 1 mg capsule 3 mg PO DAILY Rx Instructions: Patient states was advised by transplant team to start taking two 1 mg tablets in the morning and one in the evening. amoxicillin 500 mg capsule 2,000 mg PO DIRECTED PRN (Reason: PRIOR TO DENTAL PROCEDURES) multivitamin Tablet 1 tab PO QAM magnesium oxide 500 mg tablet 500 mg PO HS calcium carbonate 500 mg calcium (1,250 mg) Tablet 500 mg PO QAM acyclovir 400 mg tablet 400 mg PO BID Discharge Orders: Discharge Order (Routine); Ordered 07/19/24 Ordered By: Cathy Cloud Admission Data Admit Date/Time: 07/13/24 13:42 Attending Provider: Giovanny Israel Admit Provider: Bhupinder Acosta Primary Care Provider: Santos Rivers Other Providers: Bhupinder Acosta; Ba Gonsalez; Tung Mccormick; Charlotte Oro; Colin Braxton; Yamile Whittaker Hospital Stay Data Consultations 07/13/24 12:47 ED Decision to Admit Stat 07/14/24 08:52 Consult Oncology Routine 07/17/24 14:22 Consult Nephrology Routine Diagnostic Imagining Performed 07/13/24 11:23 US venous doppler LE BI Stat Pending Results Patient Have Any Pending Studies at Discharge: No Discharge Instructions Given to Patient (Per Discharging Provider) Mr. Mandel, [place] were recently hospitalized for shortness of breath and found to have low hemoglobin. As a result of this, your kidney's suffered an acute injury but your lab work is improving. Please see recommendations below regarding your discharge. 1. Please follow up with hematology outpatient 2. Please follow up with your lens engraver within 7-10 days of discharge. If you do not hear anything from their office by 07/23 please call them: [phone] 3. Please see your PCP within 1-2 weeks of discharge. 4. You may resume your outpatient medications. 5. Please obtain labs in 1 week from discharge to recheck your blood counts and kidney function. If you develop any worsening shortness of breath, chest pain, dizziness, or weakness please report back to the ER for further care. Sincerely, Cathy Cloud PA-C Total Time Total Time Spent Total Time Spent (In Minutes): 42 Total Time Includes: Examination of the Patient, Discharge Planning, Medication Reconciliation and Communication With Other Providers Coding Level of Care Code 24970 INP/OBS DISCH >30 MIN Diagnoses Warm autoimmune hemolytic anemia D59.11 Acute exacerbation of CHF (congestive heart failure) I50.9 Acute kidney injury N17.9 Atrial fibrillation I48.91 Hypomagnesemia E83.42
[2024-07-19 10:42] VITALS: PULSE 83
== END 2024-07-19 10:51 | disposition home or self-care (01) | DRG 808 ==
LOC: ED 10:22 → SUATTDRO 13:42 → 2W 13:42

== ENCOUNTER 2024-07-26 08:33 | Inpatient (IN) ==
[2024-07-26] MEDS: SODIUM CHLORIDE 0.9% 500 ML IV ONE ×2 (09:09→10:41)
[2024-07-26] MEDS ORDERED: dilTIAZem HCl 5 MG/ML 5 ML VIAL IV STA (09:09)
--- NOTE | 2024-07-26 09:10 | Emergency Department Note ---
Impression & Plan Hypotension, Hypomagnesemia, Atrial fibrillation with rapid ventricular response, Elevated troponin, Anemia, Weakness, Hypocalcemia, Diarrhea ED Provider Note NAME: ANGELES MONTAÑO AGE: 63 SEX: M : 1960 ARRIVES VIA: Walk-In INFORMANT: [Patient] ED PROVIDER(S): [Jay Payne MD] CHIEF COMPLAINT: Diarrhea HISTORY OF PRESENT ILLNESS: The patient is a 63-year-old male with a history of renal transplant as well as autoimmune hemolytic anemia. The patient was discharged from our hospital about a week ago, he received blood during that hospital stay to boost his hemoglobin. He states that since discharge, he has had diarrhea that is green, no black or bloody stool. He has had no appetite. He states that he just feels weak all over. He has also noticed some urinary urgency and frequency without urinary burning. There has been no fever, no vomiting, no abdominal or chest pain. He is mildly short of breath but he states this is somewhat baseline. There has been no cough or chest congestion. PMHx/PSHx/Social Hx: See Below PHYSICAL EXAM: GENERAL: Patient is in no acute distress. HEENT: No acute trauma, normocephalic atraumatic, mucous membranes dry, no nasal congestion. NECK: No stridor, no adenopathy, no meningismus, trachea is midline. LUNGS: Few scattered crackles heard, no wheezing, no respiratory distress. HEART: Tachycardic with an irregular rhythm, no obvious murmurs. ABDOMEN: Soft, nontender, no peritonitis. Obese. EXTREMITIES: No cyanosis, full range of motion of all the joints without pain or difficulty. Mild bilateral pedal edema. NEUROLOGIC: Oriented x 3, no acute motor or sensory deficits, no focal weakness. SKIN: No jaundice, no diaphoresis. DIFFERENTIAL DIAGNOSIS: Renal failure, electrolyte imbalance, C. difficile colitis, bacterial or viral intestinal infection, dysrhythmia, anemia, among others. EMERGENCY DEPARTMENT PROCEDURES: MEDICAL DECISION MAKING: There is a mild leukocytosis, this would be consistent with infection. The patient was anemic but this is a baseline finding for him. Platelet count was low, this has been documented before. INR was 1.3, somewhat elevated. Renal panel testing showed some mild acute kidney injury. Calcium and magnesium were low. Lactic acid level was not elevated making severe sepsis less likely. There were some subtle liver enzyme elevations. Patient appeared to be in a euthyroid state. Random cortisol level was within the normal range. ECG showed rapid atrial fibrillation with LVH. There was no ST elevation. Cardiac enzyme testing x 1 is somewhat elevated. This troponin elevation could be secondary to cardiac injury or mismatch from his tachycardia. Chest x-ray showed cardiomegaly as well and has some mild CHF. There was a potential left lower lobe infiltrate. Of note, the patient does not have any cough or respiratory symptoms. Stool cultures returned positive for Shiga toxin. Stool C. difficile testing was negative. On exam, the patient was somewhat hypotensive, he was tachycardic. He appeared clinically dehydrated. He did not seem in significant distress despite his vital signs. The patient was aggressively managed. He received a liter of IV saline for hydration and for the possibility of sepsis. I was hesitant to give any more fluids with his history of heart failure. Because of concerns for fluid overload/CHF, the patient did not receive the typical sepsis protocol 30 cc/kg of saline based on ideal body weight. He received IV ceftriaxone as antibiotic therapy. He was given IV magnesium. He received IV digoxin. He was given IV calcium. I discussed the case with cardiology. They recommended IV digoxin to see if we could slow the heart rate without causing further decrease in the blood pressure. The patient is in need of a hospital stay. He presents with some weakness as well as diarrhea. He was found to be Shiga toxin positive on stool testing. He was found to be quite tachycardic in rapid A-fib as well as hypotensive. He has a history of renal transplant and is thus immunocompromised. The patient was told results of all his testing. He understands the need for a hospital stay. I did speak with case management, the on-call hospitalist was consulted. Prior/Outside records/notes reviewed: Discharge summary note from 07/19/2024 discussing his presentation, hospital course and plan at discharge. ECG per my interpretation: Indication was tachycardia. The ECG shows atrial fibrillation with a rate of 145. LVH is present. There is a right bundle branch block. There is diffuse nonspecific ST change. There is no ST elevation. No PVCs. The QTc is 531. Compared to an ECG from 07/13/2024, the rate has increased Continuous Cardiac Monitoring per my interpretation: An order was placed for continuous cardiac monitoring. The monitor shows a rate of 146 with atrial fibrillation. Imaging/x-ray results per my interpretation: Chest x-ray shows cardiomegaly with some mild CHF. The patient does have some increased congestion/opacity to the left lower lung. Chronic Medical/Social conditions affecting care: History of renal transplant as well as autoimmune hemolytic anemia. Care/Management discussed with: Cardiology-Dr. Kohler. Case management and the on-call hospitalist. Level of care consideration(s): After review of the information above and other included data: --I believe the patient requires escalation of care to admission Critical Care Note: I have personally spent 58 minutes of critical care time in the direct management of this patient. This includes bedside care, interpretation of diagnostic studies, and testing, discussion with consultants, patient, and family members, and other required patient management activities. This 58 minutes is in excess of all separately billable procedures. DISPOSITION: Admission Past Med/Surg History Problem List (Updated 07/26/24 @ 16:30 by Jay Payne MD) Diarrhea (Acute) Hypocalcemia (Acute) Weakness (Acute) Anemia (Acute) Elevated troponin (Acute) Atrial fibrillation with rapid ventricular response (Acute) Hypomagnesemia (Acute) Hypotension (Acute) Hx of kidney transplant 02/2010- [facility], [place], [place] Acute diarrhea Heart failure with preserved ejection fraction Elevated troponin Warm autoimmune hemolytic anemia Atrial fibrillation with rapid ventricular response Sepsis due to pneumonia Kidney transplant status, living unrelated donor Acute exacerbation of CHF (congestive heart failure) (Acute) Acute kidney injury Hypomagnesemia Status post right hip replacement LVH (left ventricular hypertrophy) Coronary artery calcification 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 Status post kidney transplant On prednisone therapy Ground glass opacity present on imaging of lung Rosales's esophagus with esophagitis Macrocytic anemia Erosive esophagitis EGD 08/2023 Abnormal findings on diagnostic imaging of other abdominal regions, including retroperitoneum Arthritis of right hip Atrial fibrillation controlled w/ metoprolol Eliquis recently DC'ed during Nov hospital visit due to anemia issues, no pacer Hip arthritis Adrenal nodule MN PCP considering adrenal protocol CT or MRI for characterization Herpetic maria Aneurysm Abnormal LFTs Pneumonia Acute non-ST elevation myocardial infarction (NSTEMI) (Acute) 01/31/23 Megaloblastic anemia (Acute) Cerumen impaction Retroperitoneal mass lesion biopsy negative for malignancy 05/2022 per transplant record 03/17/23 Hypotension Diarrhea Adenomatous polyps Vitamin D deficiency Chronic kidney disease, stage 3a COVID-19 (Acute) Acute respiratory failure with hypoxemia (Acute) 07/29/20 Anemia (Chronic) hospitalized at [facility] 07/2023, received blood transfusion 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 History of esophageal reflux (Chronic) controlled, stable per pt Hyperlipidemia (Chronic) Hypothyroidism (Chronic) Obesity (Chronic) Osteoporosis (Chronic) Proteinuria (Chronic) Medical History Encounter for pre-operative examination History of non-ST elevation myocardial infarction (NSTEMI) entered into chart 01/2023 Osteoporosis Hypothyroidism Hyperlipidemia Hx of esophageal reflux controlled, stable per pt 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 Abdominal aortic aneurysm 4.9 cm on 01/2023 chest CTA CKD (chronic kidney disease) History of colon polyps Retroperitoneal mass lesion biopsy negative for malignancy 05/2022 per transplant record 03/17/23 Pneumonia HX Adrenal nodule monitored by PCP Arthritis On prednisone therapy Atrial fibrillation controlled w/ metoprolol, no cardio Rosales's esophagus with esophagitis Atrial flutter unaware 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 Sleep apnea no device Thoracic ascending aortic aneurysm 4.[address] 01/19/24 Hypertension controlled, stable per pt Limb alert care status left arm restriction History of blood transfusion 01/2024 Hx of herpetic maria History of COVID-19 07/2020- covid pneumonia, hospitalized; resolved History of renal dialysis prior to kidney transplant; has dialysis fistula left arm History of CVA (cerebrovascular accident) 2008, mild memory changes Surgical History History of esophagogastroduodenoscopy (EGD) Hx of cholecystectomy Hx of exploratory laparotomy Hx of kidney transplant 02/2010- [facility], [place] History of colonoscopy Family History Grandmother (Maternal) Alzheimer disease Mother Depression Denies family history of Ovarian cancer Prostate cancer Diabetes Heart disease Myocardial infarction Breast cancer Lung cancer COPD (chronic obstructive pulmonary disease) Colorectal cancer Hypertension Stroke Social History Smoking Status: Never smoker Second Hand Exposure: No; Do You Dip or Chew Tobacco: No; Hx Alcohol Use: No Hx Substance Use: No 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: Georgian Communication Ability: Effective Visual Impairment: No Limitations Hearing Ability: Normal Slot Floor Person Required: No Beliefs That Will Affect Care: None marital status: Current Living Situation: Spouse current occupational status: employed current occupation: [employer] How many Children do You have: 1 Other Information That Helps Us Care for You: No Feels Safe at Home: Yes Safety Concerns: Feels Safe At This Time Childhood Exposure to Second-Hand Smoke: No Dental Care, Regularly: Yes Seatbelt Use: sometimes Sunscreen Use: No Assistive Devices: Cane and Walker Allergies Allergies Allergy/AdvReac Type Severity Reaction Status Date / Time clopidogrel [From Plavix] Allergy Unknown Unknown Verified 05/24/24 10:19 Myxqoxs-[id number]-BjX Reductase AdvReac Intermediate myalgias Verified 05/24/24 10:19 Inhibitor [[id number] Reductase Inhibitor] Home Meds Home Medications Medication Instructions Recorded Confirmed amoxicillin 500 mg capsule 2,000 mg PO DIRECTED PRN PRIOR 07/29/20 07/26/24 TO DENTAL PROCEDURES multivitamin 1 tab PO QAM 08/02/21 07/26/24 magnesium oxide 500 mg PO HS 09/04/23 07/26/24 calcium carbonate 500 mg PO QAM 01/21/24 07/26/24 tacrolimus 1 mg capsule, 3 mg PO DAILY 04/16/24 07/26/24 immediate-release acyclovir 400 mg tablet 400 mg PO BID 05/07/24 07/26/24 Previous Rx's Medication Instructions Recorded mycophenolate mofetil 250 mg 500 mg (2 x 250 mg) PO BID #360 05/29/20 capsule caps folic acid 1 mg tablet 1 mg PO BID #180 tabs 09/20/23 pantoprazole 40 mg tablet,delayed 40 mg PO BID #180 tabs 12/06/23 release ferrous sulfate 325 mg (65 mg 325 mg PO BID #60 tabs 02/05/24 iron) tablet prednisone 5 mg tablet 5 mg PO DAILY #90 tabs 02/27/24 levothyroxine 125 mcg tablet 125 mcg PO QAM #90 tabs 03/04/24 metoprolol succinate 100 mg 100 mg PO HS #90 tabs 04/22/24 tablet,extended release 24 hr ondansetron 4 mg disintegrating 4 mg PO Q8 PRN nausea #20 tabs 05/22/24 tablet allopurinol 100 mg tablet 200 mg (2 x 100 mg) PO DAILY #60 06/03/24 tabs Results & Data (ED) Vital Signs Vital Signs - 24 hr 07/26/24 08:38 07/26/24 09:06 07/26/24 09:06 Temperature 37.1 C Temperature Source Oral Pulse Rate 150 H 141 H 150 H Pulse Rate [Apical] Pulse Rate from SpO2 Sensor Pulse Rhythm [Apical] Respiratory Rate 16 19 Respiratory Effort / Characteristics Non-Labored Spontaneous Respiratory Depth Normal Respiratory Pattern Regular Blood Pressure 106/64 Blood Pressure [Right Arm] Blood Pressure Mean 78 Blood Pressure Mean [Right Arm] Pulse Oximetry 95 Oxygen Delivery Method Room Air Oxymask Sepsis Recent Fever Within 48 Hours No Sepsis New/Unexplained Change in Mental Status N/A Sepsis Action Taken by Nursing No Action Required 07/26/24 09:21 07/26/24 09:27 07/26/24 09:30 Temperature Temperature Source Pulse Rate 142 H 153 H Pulse Rate [Apical] 141 H Pulse Rate from SpO2 Sensor 150 H 146 H Pulse Rhythm [Apical] Irregular Respiratory Rate 28 H 14 24 Respiratory Effort / Characteristics Respiratory Depth Respiratory Pattern Blood Pressure Blood Pressure [Right Arm] 92/69 L Blood Pressure Mean Blood Pressure Mean [Right Arm] 76 Pulse Oximetry 96 99 97 Oxygen Delivery Method Room Air Room Air Room Air Sepsis Recent Fever Within 48 Hours Sepsis New/Unexplained Change in Mental Status Sepsis Action Taken by Nursing 07/26/24 09:42 07/26/24 09:51 07/26/24 10:00 Temperature Temperature Source Pulse Rate 152 H Pulse Rate [Apical] 139 H Pulse Rate from SpO2 Sensor Pulse Rhythm [Apical] Irregular Respiratory Rate 22 14 Respiratory Effort / Characteristics Respiratory Depth Respiratory Pattern Blood Pressure Blood Pressure [Right Arm] 82/66 L Blood Pressure Mean Blood Pressure Mean [Right Arm] 71 Pulse Oximetry 96 Oxygen Delivery Method Room Air Room Air Sepsis Recent Fever Within 48 Hours Sepsis New/Unexplained Change in Mental Status Sepsis Action Taken by Nursing 07/26/24 10:09 07/26/24 10:15 07/26/24 10:30 Temperature Temperature Source Pulse Rate 150 H 142 H Pulse Rate [Apical] 144 H Pulse Rate from SpO2 Sensor Pulse Rhythm [Apical] Irregular Respiratory Rate 22 23 20 Respiratory Effort / Characteristics Respiratory Depth Respiratory Pattern Blood Pressure Blood Pressure [Right Arm] 97/70 L Blood Pressure Mean Blood Pressure Mean [Right Arm] 79 Pulse Oximetry Oxygen Delivery Method Room Air Sepsis Recent Fever Within 48 Hours Sepsis New/Unexplained Change in Mental Status Sepsis Action Taken by Nursing 07/26/24 10:30 07/26/24 10:45 07/26/24 10:54 Temperature Temperature Source Pulse Rate 140 H 137 H 143 H Pulse Rate [Apical] Pulse Rate from SpO2 Sensor 148 H 135 H 140 H Pulse Rhythm [Apical] Respiratory Rate 20 21 18 Respiratory Effort / Characteristics Respiratory Depth Respiratory Pattern Blood Pressure Blood Pressure [Right Arm] Blood Pressure Mean Blood Pressure Mean [Right Arm] Pulse Oximetry 91 98 100 Oxygen Delivery Method Sepsis Recent Fever Within 48 Hours Sepsis New/Unexplained Change in Mental Status Sepsis Action Taken by Nursing 07/26/24 10:57 07/26/24 10:57 07/26/24 11:00 Temperature Temperature Source Pulse Rate 137 H 134 H Pulse Rate [Apical] 144 H Pulse Rate from SpO2 Sensor 137 H Pulse Rhythm [Apical] Irregular Respiratory Rate 18 23 Respiratory Effort / Characteristics Respiratory Depth Respiratory Pattern Blood Pressure Blood Pressure [Right Arm] 88/68 L Blood Pressure Mean Blood Pressure Mean [Right Arm] 74 Pulse Oximetry 96 100 Oxygen Delivery Method Room Air Sepsis Recent Fever Within 48 Hours Sepsis New/Unexplained Change in Mental Status Sepsis Action Taken by Nursing 07/26/24 11:24 Temperature Temperature Source Pulse Rate 127 H Pulse Rate [Apical] Pulse Rate from SpO2 Sensor Pulse Rhythm [Apical] Respiratory Rate 24 Respiratory Effort / Characteristics Respiratory Depth Respiratory Pattern Blood Pressure Blood Pressure [Right Arm] Blood Pressure Mean Blood Pressure Mean [Right Arm] Pulse Oximetry Oxygen Delivery Method Sepsis Recent Fever Within 48 Hours Sepsis New/Unexplained Change in Mental Status Sepsis Action Taken by [facility] Medications Current Medication List: was personally reviewed by me Laboratory Data Attestation: I reviewed the patient's lab results. 07/26/24 08:50 07/26/24 08:50 Lab Results 07/26/24 07/26/24 07/26/24 Range/Units 08:50 09:43 10:45 WBC 11.38 H (4.8-10.8) K/ul RBC 2.38 L (4.70-6.10) M/uL Hgb 8.5 L (14.0-18.0) g/dl Hct 26.7 L (42.0-52.0) % MCV 112.2 H (80.0-100.0) fL MCH 35.7 H (25.0-34.0) pg MCHC 31.8 L (32.0-36.0) g/dL RDW Std Deviation 62.4 H (36.4-46.3) fL RDW Coeff of Jaye 15.3 H (11.5-14.5) % Plt Count 91 L (130-400) K/uL MPV 11.0 (9.4-12.4) fL Immature Gran % (Auto) 0.6 % Neut % (Auto) 94.3 % Lymph % (Auto) 1.1 % Tift % (Auto) 3.8 % Eos % (Auto) 0.1 % Baso % (Auto) 0.1 % Neut # (Auto) 10.73 H (1.40-6.50) K/uL Lymph # (Auto) 0.13 L (1.20-3.40) K/uL Tift # (Auto) 0.43 (0.11-0.59) K/uL Eos # (Auto) 0.01 (0.00-0.50) K/uL Baso # (Auto) 0.01 (0.00-0.20) K/uL Immature Gran # (Auto) 0.07 (0.01-0.20) K/uL Polychromasia 1+ Peripher Smr Path Cons PT 13.4 H (9.0-12.0) Seconds INR 1.3 H (0.9-1.1) APTT 31 (21-31) Seconds PTT Ratio 1.2 Sodium 134 L (136-145) mmol/L Potassium 4.3 (3.5-5.1) mmol/L Chloride 104 (98-107) mmol/L Carbon Dioxide 22 (21-32) mmol/L Anion Gap 8 (3-11) BUN 41 H (6-23) mg/dl Creatinine 1.81 H (0.6-1.4) mg/dl Est Cr Clr Drug Dosing Not Reportable eGFR 41.50 BUN/Creatinine Ratio 22.7 H (10-20) Glucose 106 H (70-99(Fasting)) mg/dl Lactate 1.5 (0.4-2.0) mmol/L Calcium 8.5 L (8.6-10.3) mg/dl Magnesium 1.2 L (1.7-2.4) mg/dl Total Bilirubin 3.1 H 2.9 H (0.2-1.0) mg/dl Direct Bilirubin 1.4 H (0-0.2) mg/dl AST 36 (13-39) U/L ALT 16 (7-52) U/L Alkaline Phosphatase 120 H (34-104) U/L Lactate Dehydrogenase (86-244) U/L Troponin I High Sens 127.7 H* 68.0 H* D (0-20) pg/ml B-Natriuretic Peptide 834 H (0-100) pg/ml Total Protein 6.5 (6.0-8.3) gm/dl Albumin 3.0 L (3.4-5.0) gm/dl Globulin 3.5 (2.5-4.0) gm/dl Albumin/Globulin Ratio 0.9 (0.9-2) Procalcitonin 2.46 H (0-0.5) ng/ml TSH 2.340 (0.300-4.500) uIu/ml Random Cortisol 12.46 mcg/dl Blood Type Antibody Screen Direct Antiglob Test (Negative) SHIVANI (IgG-AHG) (Negative) SHIVANI, Polyspecific (Negative) SHIVANI C3b, C3d 5 Min (Negative) Crossmatch 07/26/24 Range/Units 11:09 WBC (4.8-10.8) K/ul RBC (4.70-6.10) M/uL Hgb (14.0-18.0) g/dl Hct (42.0-52.0) % MCV (80.0-100.0) fL MCH (25.0-34.0) pg MCHC (32.0-36.0) g/dL RDW Std Deviation (36.4-46.3) fL RDW Coeff of Jaye (11.5-14.5) % Plt Count (130-400) K/uL MPV (9.4-12.4) fL Immature Gran % (Auto) % Neut % (Auto) % Lymph % (Auto) % Tift % (Auto) % Eos % (Auto) % Baso % (Auto) % Neut # (Auto) (1.40-6.50) K/uL Lymph # (Auto) (1.20-3.40) K/uL Tift # (Auto) (0.11-0.59) K/uL Eos # (Auto) (0.00-0.50) K/uL Baso # (Auto) (0.00-0.20) K/uL Immature Gran # (Auto) (0.01-0.20) K/uL Polychromasia Peripher Smr Path Cons Cancelled PT (9.0-12.0) Seconds INR (0.9-1.1) APTT (21-31) Seconds PTT Ratio Sodium (136-145) mmol/L Potassium (3.5-5.1) mmol/L Chloride (98-107) mmol/L Carbon Dioxide (21-32) mmol/L Anion Gap (3-11) BUN (6-23) mg/dl Creatinine (0.6-1.4) mg/dl Est Cr Clr Drug Dosing eGFR BUN/Creatinine Ratio (10-20) Glucose (70-99(Fasting)) mg/dl Lactate (0.4-2.0) mmol/L Calcium (8.6-10.3) mg/dl Magnesium (1.7-2.4) mg/dl Total Bilirubin (0.2-1.0) mg/dl Direct Bilirubin (0-0.2) mg/dl AST (13-39) U/L ALT (7-52) U/L Alkaline Phosphatase (34-104) U/L Lactate Dehydrogenase 250 H (86-244) U/L Troponin I High Sens (0-20) pg/ml B-Natriuretic Peptide (0-100) pg/ml Total Protein (6.0-8.3) gm/dl Albumin (3.4-5.0) gm/dl Globulin (2.5-4.0) gm/dl Albumin/Globulin Ratio (0.9-2) Procalcitonin (0-0.5) ng/ml TSH (0.300-4.500) uIu/ml Random Cortisol mcg/dl Blood Type A Positive Antibody Screen POSITIVE A Direct Antiglob Test Positive A (Negative) SHIVANI (IgG-AHG) 2+ A (Negative) SHIVANI, Polyspecific 2+ A (Negative) SHIVANI C3b, C3d 5 Min 1+ A (Negative) Crossmatch See Detail Administered Medications Magnesium Oxide (Magnesium Oxide 400 Mg Tab) 400 mg PO BID ESTEFANI Stop: 08/25/24 10:44 Last Admin: 07/26/24 11:42 Dose: 400 mg Documented By: ROBERTA Discontinued Medications Hydrocortisone Sodium Succinate (Hydrocortisone Sod Succinate 100 Mg/2 Ml Vial) 100 mg IV NOW STA Stop: 07/26/24 11:22 Last Admin: 07/26/24 11:33 Dose: 100 mg Documented By: ROBERTA Sodium Chloride (Nss) 500 mls @ 999 mls/hr IV .Q31M ONE Stop: 07/26/24 09:29 Last Infusion: 07/26/24 10:40 Dose: Infused Documented By: Admin: 07/26/24 09:09 Dose: 999 mls/hr Documented By: ROBERTA Diltiazem HCl 125 mg/ Dextrose 125 mls @ 5 mls/hr IV .Q24H [facility]; Protocol Stop: 08/25/24 09:14 Last Admin: 07/26/24 11:48 Dose: Not Given Documented By: ROBERTA Ceftriaxone Sodium (Rocephin) 2,000 mg in 50 mls @ 100 mls/hr IV NOW STA Stop: 07/26/24 10:03 Last Infusion: 07/26/24 10:25 Dose: Infused Documented By: Admin: 07/26/24 09:55 Dose: 100 mls/hr Documented By: ROBERTA Magnesium Sulfate/Dextrose (Magnesium Sulfate / D5w) 1 gm in 100 mls @ 100 mls/hr IV Q1H ESTEFANI Stop: 07/26/24 11:49 Last Infusion: 07/26/24 13:22 Dose: Infused Documented By: Admin: 07/26/24 11:44 Dose: 100 mls/hr Documented By: Infusion: 07/26/24 11:44 Dose: Infused Documented By: Admin: 07/26/24 10:44 Dose: 100 mls/hr Documented By: ROBERTA Calcium Gluconate () 1,000 mg in 60 mls @ 240 mls/hr IV NOW STA Stop: 07/26/24 10:04 Last Infusion: 07/26/24 10:40 Dose: Infused Documented By: Admin: 07/26/24 10:25 Dose: 240 mls/hr Documented By: ROBERTA Sodium Chloride (Nss) 500 mls @ 999 mls/hr IV .Q31M ONE Stop: 07/26/24 10:44 Last Infusion: 07/26/24 11:32 Dose: Infused Documented By: Admin: 07/26/24 10:41 Dose: 999 mls/hr Documented By: ROBERTA Digoxin 250 mcg/ Syringe 10 mls @ 2 mls/min IV NOW STA Stop: 07/26/24 10:36 Last Admin: 07/26/24 10:57 Dose: 2 mls/min Documented By: ROBERTA Parenteral Electrolytes (Plasma-Lyte A Ph 7.4) 1,000 mls @ 999 mls/hr IV .Q1H1M ONE Stop: 07/26/24 12:15 Last Infusion: 07/26/24 13:22 Dose: Infused Documented By: Admin: 07/26/24 11:45 Dose: 999 mls/hr Documented By: ROBERTA Miscellaneous (Stat Iv Infusion Titration Per Protocol) 1 each N/A NOW STA Stop: 07/26/24 09:10 Last Admin: 07/26/24 11:48 Dose: Not Given Documented By: ROBERTA Imaging Data Radiologist's Impression: Chest X-Ray 07/26/24 08:59 XR chest 1V portable CLINICAL HISTORY: weakness COMPARISON STUDY: Chest CT June 27, 2024. Chest radiograph July 13, 2024. FINDINGS: There is no pneumothorax. A trace left pleural effusion is present. Cardiomegaly is unchanged. Pulmonary edema has improved since prior exam of July 13, 2024. Moderate left basilar opacity has developed. IMPRESSION: 1. Interval development of moderate left basilar opacity. This may reflect pneumonia. Radiographic follow-up to ensure resolution is recommended. 2. Cardiomegaly. Pulmonary vascular congestion, improved since prior exam. ACT 112: Negative or not required by law. Electronically signed by: Martín Grossman M.D. 07/26/2024 9:16 AM Discharge Plan Visit Data Chief Complaint: Urinary Symptoms Stated Complaint: DIARRHEA, UNCONTROLLED BLADDER, SOME SOB ED Provider: Jay Payne Discharge Problem: Hypotension, Hypomagnesemia, Atrial fibrillation with rapid ventricular response, Elevated troponin, Anemia, Weakness, Hypocalcemia, Diarrhea Patient Disposition: Admitted As Inpatient Condition: Serious Discharge Instructions Interventions: ED Discharge Assessment Last Done: 07/26/24 12:13 Discharge Problem: Hypotension Qualifiers: Hypotension type: unspecified hypotension type Qualified Code(s): I95.9 - Hypotension, unspecified Anemia Qualifiers: Anemia type: unspecified type Qualified Code(s): D64.9 - Anemia, unspecified Diarrhea Qualifiers: Diarrhea type: infectious Qualified Code(s): A09 - Infectious gastroenteritis and colitis, unspecified
--- NOTE | 2024-07-26 09:17 | XRay Report ---
XR chest 1V portable CLINICAL HISTORY: weakness COMPARISON STUDY: Chest CT June 27, 2024. Chest radiograph July 13, 2024. FINDINGS: There is no pneumothorax. A trace left pleural effusion is present. Cardiomegaly is unchang ed. Pulmonary edema has improved since prior exam of July 13, 2024. Moderate left basilar opacity has developed. IMPRESSION: 1. Interval development of moderate left basilar opacity. This may reflect pneumonia. Radiographic fo llow-up to ensure resolution is recommended. 2. Cardiomegaly. Pulmonary vascular congestion, improved since prior exam. ACT 112: Negative or not required by law. Electronically signed by: Martín Grossman M.D. 07/26/2024 9:16 AM
[2024-07-26 09:29] LABS: Hematocrit (blood only) 26.7 % (42.0-52.0); Hemoglobin 8.5 g/dl (14.0-18.0); Mean Corpuscular Hemoglobin 35.7 pg (25.0-34.0); Mean Corpuscular Hgb Conc 31.8 g/dL (32.0-36.0); Mean Corpuscular Volume 112.2 fL (80.0-100.0); Platelet Count 91 K/uL (130-400); RDW Coefficient of Variation 15.3 % (11.5-14.5); RDW Standard Deviation 62.4 fL (36.4-46.3); Red Blood Count 2.38 M/uL (4.70-6.10); White Blood Count 11.38 K/ul (4.8-10.8)
[2024-07-26 09:41] LABS: Basophils # (auto) 0.01 K/uL (0.00-0.20); Basophils % (auto) 0.1 %; Eosinophils # (auto) 0.01 K/uL (0.00-0.50); Eosinophils % (auto) 0.1 %; Immature Granulocytes # (auto) 0.07 K/uL (0.01-0.20); Immature Granulocytes % (auto) 0.6 %; Lymphocytes # (auto) 0.13 K/uL (1.20-3.40); Lymphocytes % (auto) 1.1 %; Monocytes # (auto) 0.43 K/uL (0.11-0.59); Monocytes % (auto) 3.8 %; Neutrophils # (auto) 10.73 K/uL (1.40-6.50); Neutrophils % (auto) 94.3 %; Polychromasia 1+
[2024-07-26 09:44] LABS: Alanine Aminotransferase 16 U/L (7-52); Albumin Globulin Ratio 0.9 (0.9-2); Alkaline Phosphatase 120 U/L (34-104); Anion Gap 8 (3-11); Aspartate Aminotransferase 36 U/L (13-39); BUN Creatinine Ratio 22.7 (10-20); Bilirubin,Total 3.1 mg/dl (0.2-1.0); Blood Urea Nitrogen 41 mg/dl (6-23); Calcium 8.5 mg/dl (8.6-10.3); Carbon Dioxide 22 mmol/L (21-32); Chloride 104 mmol/L (98-107); Globulin 3.5 gm/dl (2.5-4.0); Glucose 106 mg/dl (70-99(Fasting)); Magnesium 1.2 mg/dl (1.7-2.4); Potassium 4.3 mmol/L (3.5-5.1); Sodium 134 mmol/L (136-145); Total Protein 6.5 gm/dl (6.0-8.3)
[2024-07-26 09:45] LABS: INR 1.3 (0.9-1.1); Partial Thromboplastin Ratio 1.2; Partial Thromboplastin Time 31 Seconds (21-31); Prothrombin Time 13.4 Seconds (9.0-12.0)
[2024-07-26 09:52] LABS: Troponin I High Sensitivity 127.7 pg/ml (0-20)
[2024-07-26] MEDS: cefTRIAXone SODIUM 2,000 MG/50 ML BAG IV STA (09:55)
[2024-07-26] MEDS: CALCIUM GLUCONATE 1,000 MG/60 ML BAG IV STA (10:25)
--- NOTE | 2024-07-26 10:38 | Electrocardiogram Report ---
Test Reason : Blood Pressure : */* mmHG Vent. Rate : 145 BPM Atrial Rate : * BPM P-R Int : * ms QRS Dur : 136 ms QT Int : 342 ms P-R-T Axes : * -44 5 degrees QTcB Int : 531 ms Atrial fibrillation with rapid ventricular response Left axis deviation Right bundle branch block Abnormal ECG When compared with ECG of 13-Jul-2024 10:49, T wave inversion now evident in Inferior leads Confirmed by Chadd Kohler ([id number]) on 07/26/2024 10:37:59 AM Referred By: REFERRED SELF Confirmed By: Chadd Kohler
--- NOTE | 2024-07-26 10:38 | History & Physical Report ---
Date of Service July 26, 2024 Assessment & Plan (1) Sepsis due to pneumonia: Plan: patient with cough x 1 week, hypotension, tachycardia, leukocytosis - WBC 11.8 with neutrophil predominance on admission - CXR showing moderate left basilar opacity - lactate negative, procal elevated 2.46 - given 1 NSS, additional 500 mL bolus of Plasma-Lyte on admission, with 500 mL maintenance - blood cultures ordered - given 2G Rocephin in ER -> continue on admission - no need for MRSA coverage at this time as patient has no MRSA history - QTc 531 on admission, will withhold azithromycin (2) Atrial fibrillation with rapid ventricular response: Plan: known history of A-fib not anticoagulated - A-fib was rate controlled on previous admission, DOAC was deferred due to history of acute anemia, has been tolerant of Xarelto in the past - EKG on admission showed A-fib with RVR, HR 145 - TSH WNL - with tachycardia on admission but hypotensive, discussed with on-call form builder Dr. Kohler - Digoxin 250 mcg on admission, followed by 125 mcg Q6 x 2 bags overnight - if heart rate downtrends, will hold - will defer anticoagulation at this time given decrease in hemoglobin, and incr easing bilirubin; see below - dig level at 12 and 24 hrs after 1st dose - magnesium repletion as below - consulted cardiology - continue home metoprolol 100 at bedtime - Continue to monitor on Telemetry (3) Warm autoimmune hemolytic anemia: Plan: recent history on previous admission, needed Solu-Medrol 1G x 3 days and IVIG x 2 doses - Hgb 8.5, slightly decreased from recent discharge - total bilirubin 2.9, elevated from recent discharge - possibly secondary from volume contraction however may suggest hemolysis - LDH, haptoglobin, peripheral smear, and Tawanna test pending - really requires units of blood to be shipped out from outside facilities, 2 units ordered in the event that patient may need transfusion, had to be held at this time - follows with Dr. Gonsalez, oncology consulted - discussed with Dr. Gonsalez at time of admission - agrees with hydrocortisone at this time - if shows unmet evidence of hemolysis then will treat with IVIG which would also have benefit to pneumonia - daily CBC Adrenal insufficiency - with recent high-dose steroid use and chronically steroid-dependent due to renal transplant, at high risk of adrenal insufficiency - possibly contributing to hypotension - Random cortisol ordered - will give hydrocortisone as above (4) Hypomagnesemia: Plan: likely secondary to diarrhea possibly contributing to A-fib with RVR - 1.2 on admission - 2g IV mg in ER - addition of daily magnesium supplement BID on admission - trend Mg (5) Elevated troponin: Plan: Elevated on admission likely secondary to A-fib with RVR - 127.7 -> 68.0 - EKG showed A-fib with RVR, inferior T wave inversions - continue to trend overnight - monitor on telemetry (6) Heart failure with preserved ejection fraction: Plan: recently discharged 07/19 with acute CHF, patient stated symptoms improving - Last echocardiogram on 07/14 showed normal left ventricular systolic function, EF 55 to 60%, moderate LVH, RV mildly dilated, LA moderately dilated, RA severely dilated, mild aortic regurg, mild mitral regurg - BNP 834 on admission - CXR showed cardiomegaly and pulmonary vascular compression, although improved since previous x-ray - with hypotension and need for rate controlling measures, was given fluid resuscitation as above, will continue to monitor for signs of acute failure - Heart healthy, low-sodium diet - Strict I&O monitoring - Daily weights - SCDs, alexander stockings, promote leg elevation (7) Acute diarrhea: Plan: diarrhea since discharge 1 week ago No recent antibiotic use Took Imodium about 4 days ago C. difficile and stool cultures pending, although do not suspect at this time can add Imodium prn if C diff negative (8) Hx of kidney transplant: Plan: - Creatinine 1.8, upper limit of normal - Promote oral hydration - fluid resuscitation as above - Avoid nephrotoxic agents - hold prednisone in setting of IV steroids - Continue tacrolimus and mycophenolate - daily BMP Plan Chronic stable diagnoses: gout - continue allopurinol VTE ppx: scds, teds Diet: heart healthy Code status: full Dispo: pcu/tele; to be evaluated by heme/onc and cardiology today. Admission and Anticipated Discharge Date Admission Date: 07/26/24 History of Present Illness Chief Complaint: weakness Primary Care Provider: Santos Rivers MD Patient is a 63-year-old with a past medical history of AIHA, renal transplant, heart failure preserved ejection fraction, A-fib, gout. he was recently discharged from the hospital on 07/19 due to AIHA, KRISSY acute heart failure pEF. He presents today due to ongoing weakness, cough, and diarrhea. He stated that the symptoms have been ongoing since his recent discharge. He took Imodium for his diarrhea about 4 days ago, which has improved the diarrhea. He reports no episodes of diarrhea today. He states that the weakness is both fatigue and difficulty ambulating. He has also had a decreased appetite. He stated that the cough is not productive and has been ongoing since his recent hospitalization, although mild. His dyspnea on exertion and lower extremity edema has greatly improved since his recent discharge. His EKG on admission showed A-fib with RVR, rate 145. CXR showed possible LLL pneumonia. He was given 1 L NSS bolus, Rocephin, magnesium, and calcium gluconate. Due to his hypotension, BP 88/68, was discussed with on-call form builder Dr. Kohler, began digoxin on admission with plasmalyte 500 mL bolus. Patient denies fever, chills, headache, dizziness, lightheadedness, vision changes, rhinorrhea, sore throat, sputum production, orthopnea, chest pain, abdominal pain, nausea, vomiting, dysuria, hematuria, numbness, tingling. He does not use nicotine or drink alcohol. He lives at home with his . He denies past history of diabetes, previous VTE, cancer, COPD or asthma. He did have a TIA "a while back". He does not use oxygen at baseline. He took all of his home medications this morning. He wishes to be Full code at this time. The patient was discussed with Dr. Frederick at the time of the admission/consult. Allergies Allergy/AdvReac Type Severity Reaction Status Date / Time clopidogrel [From Plavix] Allergy Unknown Unknown Verified 05/24/24 10:19 Rjtlwns-FKH-KmF Reductase AdvReac Intermediate myalgias Verified 05/24/24 10:19 Inhibitor [Bewxjhd-Har-Rfv Reductase Inhibitor] Home Medications Medication Instructions Recorded Confirmed Type mycophenolate mofetil 250 mg 500 mg (2 x 250 mg) PO BID #360 05/29/20 07/26/24 Rx capsule caps amoxicillin 500 mg capsule 2,000 mg PO DIRECTED PRN PRIOR 07/29/20 07/26/24 History TO DENTAL PROCEDURES multivitamin 1 tab PO QAM 08/02/21 07/26/24 History magnesium oxide 500 mg PO HS 09/04/23 07/26/24 History folic acid 1 mg tablet 1 mg PO BID #180 tabs 09/20/23 07/26/24 Rx pantoprazole 40 mg tablet,delayed 40 mg PO BID #180 tabs 12/06/23 07/26/24 Rx release calcium carbonate 500 mg PO QAM 01/21/24 07/26/24 History ferrous sulfate 325 mg (65 mg 325 mg PO BID #60 tabs 02/05/24 07/26/24 Rx iron) tablet prednisone 5 mg tablet 5 mg PO DAILY #90 tabs 02/27/24 07/26/24 Rx levothyroxine 125 mcg tablet 125 mcg PO QAM #90 tabs 03/04/24 07/26/24 Rx tacrolimus 1 mg capsule, 3 mg PO DAILY 04/16/24 07/26/24 History immediate-release metoprolol succinate 100 mg 100 mg PO HS #90 tabs 04/22/24 07/26/24 Rx tablet,extended release 24 hr acyclovir 400 mg tablet 400 mg PO BID 05/07/24 07/26/24 History ondansetron 4 mg disintegrating 4 mg PO Q8 PRN nausea #20 tabs 05/22/24 07/26/24 Rx tablet allopurinol 100 mg tablet 200 mg (2 x 100 mg) PO DAILY #60 06/03/24 07/26/24 Rx tabs Past Med/Surg History Problem List (Updated 07/26/24 @ 11:44 by Ella Bolivar PA-C) Hx of kidney transplant 02/2010- [place] Acute diarrhea Heart failure with preserved ejection fraction Elevated troponin Warm autoimmune hemolytic anemia Atrial fibrillation with rapid ventricular response Sepsis due to pneumonia Kidney transplant status, living unrelated donor Acute exacerbation of CHF (congestive heart failure) (Acute) Acute kidney injury Hypomagnesemia Status post right hip replacement LVH (left ventricular hypertrophy) Coronary artery calcification 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 Status post kidney transplant On prednisone therapy Ground glass opacity present on imaging of lung Rosales's esophagus with esophagitis Macrocytic anemia Erosive esophagitis EGD 08/2023 Abnormal findings on diagnostic imaging of other abdominal regions, including retroperitoneum Arthritis of right hip Atrial fibrillation controlled w/ metoprolol Eliquis recently DC'ed during Nov hospital visit due to anemia issues, no pacer Hip arthritis Adrenal nodule MN PCP considering adrenal protocol CT or MRI for characterization Herpetic maria Aneurysm Abnormal LFTs Pneumonia Acute non-ST elevation myocardial infarction (NSTEMI) (Acute) 01/31/23 Megaloblastic anemia (Acute) Cerumen impaction Retroperitoneal mass lesion biopsy negative for malignancy 05/2022 per transplant record 03/17/23 Hypotension Diarrhea Adenomatous polyps Vitamin D deficiency Chronic kidney disease, stage 3a COVID-19 (Acute) Acute respiratory failure with hypoxemia (Acute) 07/29/20 Anemia (Chronic) hospitalized at [facility] 07/2023, received blood transfusion 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 History of esophageal reflux (Chronic) controlled, stable per pt Hyperlipidemia (Chronic) Hypothyroidism (Chronic) Obesity (Chronic) Osteoporosis (Chronic) Proteinuria (Chronic) Medical History Encounter for pre-operative examination History of non-ST elevation myocardial infarction (NSTEMI) entered into chart 01/2023 Osteoporosis Hypothyroidism Hyperlipidemia Hx of esophageal reflux controlled, stable per pt 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 Abdominal aortic aneurysm 4.9 cm on 01/2023 chest CTA CKD (chronic kidney disease) History of colon polyps Retroperitoneal mass lesion biopsy negative for malignancy 05/2022 per transplant record 03/17/23 Pneumonia HX Adrenal nodule monitored by PCP Arthritis On prednisone therapy Atrial fibrillation controlled w/ metoprolol, no cardio Rosales's esophagus with esophagitis Atrial flutter unaware 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 Warm autoimmune hemolytic anemia Sleep apnea no device Thoracic ascending aortic aneurysm 4.[address] 01/19/24 Hypertension controlled, stable per pt Limb alert care status left arm restriction History of blood transfusion 01/2024 Hx of herpetic maria History of COVID-19 07/2020- covid pneumonia, hospitalized; resolved History of renal dialysis prior to kidney transplant; has dialysis fistula left arm History of CVA (cerebrovascular accident) 2008, mild memory changes Surgical History History of esophagogastroduodenoscopy (EGD) Hx of cholecystectomy Hx of exploratory laparotomy Hx of kidney transplant 02/2010- [facility] [place] [place] History of colonoscopy Family History Grandmother (Maternal) Alzheimer disease Mother Depression Denies family history of Ovarian cancer Prostate cancer Diabetes Heart disease Myocardial infarction Breast cancer Lung cancer COPD (chronic obstructive pulmonary disease) Colorectal cancer Hypertension Stroke Social History Smoking Status: Never smoker Second Hand Exposure: No; Do You Dip or Chew Tobacco: No; Hx Alcohol Use: No Hx Substance Use: No 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: Kiswahili Communication Ability: Effective Visual Impairment: No Limitations Hearing Ability: Normal Parachute Harness Rigger Required: No Beliefs That Will Affect Care: None marital status: Current Living Situation: Spouse current occupational status: employed current occupation: [employer] How many Children do You have: 1 Feels Safe at Home: Yes Childhood Exposure to Second-Hand Smoke: No Dental Care, Regularly: Yes Seatbelt Use: sometimes Sunscreen Use: No Assistive Devices: Cane and Walker Review of Systems Review of Systems: see HPI Physical Exam Physical Exam: The patient is awake, alert and oriented 3, well developed and well nourished, normocephalic and atraumatic, in no acute distress. Non-toxic appearing. HEENT- EOMI, mucous membranes dry. Hearing grossly intact. Heart- irregularly irregular rhythm, HR 135. normal S1 and S2. No murmurs, rubs or gallops. Lungs- Decreased in bilateral lower lobes, no respiratory distress, no accessory muscle use. Abdomen-normal bowel sounds and soft. No ascites noted. Non-tender. Extremities- no clubbing, cyanosis. +2 pitting edema bilaterally. Psychiatric-normal affect. Results & Data Results & Data Vital Signs (Past 12 Hours) Vital Signs Temp Pulse Pulse Resp BP BP Pulse Ox 07/26/24 10:30 144 H 20 97/70 L 07/26/24 10:00 139 H 14 82/66 L 96 07/26/24 09:51 152 H 22 07/26/24 09:42 07/26/24 09:30 153 H 24 97 07/26/24 09:27 141 H 14 92/69 L 99 07/26/24 09:21 142 H 28 H 96 07/26/24 09:06 150 H 19 07/26/24 09:06 141 H 07/26/24 08:38 37.1 C 150 H 16 106/64 95 O2 Del Method 07/26/24 10:30 Room Air 07/26/24 10:00 Room Air 07/26/24 09:51 07/26/24 09:42 Room Air 07/26/24 09:30 Room Air 07/26/24 09:27 Room Air 07/26/24 09:21 Room Air 07/26/24 09:06 07/26/24 09:06 07/26/24 08:38 Room Air, Oxymask Code Status & VTE Plan Code Status Full code VTE Prophylaxis Plan VTE Prophylaxis will be ordered: Yes Supervising Physician Co-Signing Physician Notes Gumaro is a medically complex 63-year-old male with a past medical history of renal transplant, CHF, warm autoimmune hemolytic anemia, megaloblastic anemia, obesity, A-fib not on anticoagulation due to history of bleeding and warm autoimmune hemolytic anemia. He brings to the emergency department for diarrhea, global fatigue, and some urinary urgency. He is found to have a suspected pneumonia by x-ray however has had a cough since prior admission. Ocampo was treated last admit which has been improving but cough persists. Diarrhea since last dc, resovled with immodium and improved last 3 days. No diarrhea today. Lungs CTAB, diminishe din the bases. irir and tachycardic. No syncope/presyncope. At bedside He is found to be in A-fib RVR. Pulse 140s, BP 8090s. Was initially ordered a diltiazem drip however this was held due to low blood pressures. Recent echo 07/14/2024 was with preserved ejection fraction 55-60%. Moderate concentric LVH was noted. RV SF normal, mild RV dilation. Patient was recently admitted and discharged 07/19/2024 after an admission for warm autoimmune hemolytic anemia treated with Solu-Medrol 1 g x 3 days, 1 dose of IVIG, and was subsequently recommended for follow-up as outpatient with hematology oncology. During that admission he did have a mild KRISSY. Did have rate controlled A-fib at that time, DOAC was deferred due to his acute anemia however had been tolerant of Xarelto recently and was recommended to resume this once hemoglobin levels were stable. Does have history of hypomagnesemia likely worsened with diarrhea, diarrhea currently improved. No abdominal pain. A-fib RVR History of A-fib currently on anticoagulation due to recent hemolytic anemia Home metoprolol 100 mg daily continued Optimize magnesium to 2.0, patient is hypomagnesemic on admission Due to lack of anticoagulation amiodarone/cardioversion is not recommended for control Patient has upper limit of his normal renal function. Given additional risks of beta-fely/CCB due to his hypotension will trial digoxin load for rate control. Cardiology consulted and in agreement with this Troponin elevated at 127 without chest pain, suspect demand from RVR. EKG does show inferior T wave inversions. Hemoglobin has been stable 8.59.1 since 07/16 with no acute bleeding. Bilirubin previously elevated in the setting of intravascular hemolysis, this was downtrending and dropped at 2.6 however is slightly uptrending today at 3.1. This could be from volume contraction; however, w/ history, downtrend in hemoglobin, slight uptrend in bilirubin which may suggest ongoing hemolysis will obtain full hemolysis eval, defer anticoagulations until reviewed with HemeOnc. - Dig 250mcg load ordered, continue 125mcg q6h up to 2 doses if heart rate remains greater than 110 hold if heart rate downtrends, check levels. Warm autoimmune hemolytic anemia Direct bili component added, transaminases are normal. LDH/haptoglobin pendin g. Type and cross ordered in the event the patient continues to drop, Tawanna/SHIVANI is pending. Peripheral smear ordered to look for erythrocyte clumping Patient generally requires blood to be shipped from outside facilities. Due to this 2 units were ordered to be transferred and held on admission. No indication for transfusion at time of admission. Heme-onc consulted History of renal transplant Renal function upper limit of normal, creatinine 1.81With baseline around 11.7 Patient is post 1 L NSS, and receiving another 1 L of crystalloid at time of admission. Orals encouraged Trend BMP daily Continue tacrolimus/prednisone/mycophenolate See adrenal insufficiency discussion below Pneumonia Patient with leukocytosis, persistent cough since prior admission, and left basilar opacity on x-ray. Will treat for potential pneumonia. Rocephin continued. Sputum culture ordered. Suspect his hypotension is related to his RVR however given leukocytosis, source, hypotension, tachycardia he does meet sepsis criteria. Will give an additional 500cc of fluids and then follow maintenance, full IBW/weight-based dosing not recommended due to history of heart failure and some pulmonary vascular congestion however does appear mildly volume injected clinically. He does have a slightly elevated BNP in the setting of renal dysfunction Patient has recently been on high-dose steroids, is chronically steroid pendant from his renal transplant is at high risk of adrenal insufficiency. Random cortisol ordered and stress dose hydrocortisone has been ordered in the interim.. Did discussed with hematology oncology given concurrent drop in hemoglobin; jested that if patient shows evidence of hemolysis then will treat with IVIG which would also have secondary benefit should he have pneumonia and would defer steroids. No indication for Solu-Medrol at this time, agree with hydrocortisone at this time. Will follow in consultation, appreciate recommendations. Addendum On reassessment following dig and initial treatments patient is clinically improving. Remains without chest pain chest pressure no lightheadedness or dizziness. Systolic pressure improved to low 100s, pulse is downtrending to approximately 120. Will give additional digoxin load every 6 hours as mentioned next dose due approximately 7 PM and will hold if heart rate downtrends less than 110. If patient is maintained on this afterload can dose adjust renal function to 125 mcg daily. PG Care Time/CCT Total # of Minutes Spent Total Time Spent with Patient: Total time spent is greater than 50% in coordination of care (as documented) at patient's floor/unit and/or counseling patient: Coding Level of Care Code 56817 INT INP/OBS CARE 3MIN Diagnoses Sepsis due to pneumonia J18.9; A41.9 Atrial fibrillation with rapid ventricular response I48.91 Warm autoimmune hemolytic anemia D59.11 Hypomagnesemia E83.42 Elevated troponin R79.89 Heart failure with preserved ejection fraction I50.30 Acute diarrhea R19.7 Hx of kidney transplant Z94.0
[2024-07-26] MEDS: MAGNESIUM SULFATE / D5W 1 GM/100 ML BAG IV SCH (10:44)
[2024-07-26] MEDS ORDERED: SODIUM CHLORIDE 0.9% 100 ML IV PRN (10:55)
[2024-07-26] MEDS ORDERED: SODIUM CHLORIDE 0.9% 50 ML IV PRN (10:55)
[2024-07-26] MEDS: DIGOXIN 250 MCG in SYRINGE 9 ML IV STA (10:57)
[2024-07-26 11:30] LABS: Bilirubin Direct 1.4 mg/dl (0-0.2); Bilirubin,Total 2.9 mg/dl (0.2-1.0)
[2024-07-26] MEDS: HYDROCORTISONE SOD SUCCINATE 100 MG/2 ML VIAL IV STA (11:33)
[2024-07-26] MEDS: MAGNESIUM OXIDE 400 MG TAB PO SCH (11:42)
[2024-07-26] MEDS: PLASMA-LYTE A 1,000 ML IV ONE (11:45)
[2024-07-26] MEDS ORDERED: DIGOXIN 125 MCG in SYRINGE 9.5 ML IV SCH (11:45)
[2024-07-26] MEDS: STAT IV Infusion **Titration per Protocol STA (11:48)
[2024-07-26] MEDS: dilTIAZem HCL 125 MG in DEXTROSE 5% 100 ML IV SCH (11:48)
--- NOTE | 2024-07-26 14:28 | Cardiology Consultation ---
Date of Consultation July 26, 2024 Assessment & Plan (1) Sepsis due to pneumonia: (2) Atrial fibrillation with rapid ventricular response: (3) Warm autoimmune hemolytic anemia: (4) Hypomagnesemia: (5) Elevated troponin: (6) Heart failure with preserved ejection fraction: (7) Acute diarrhea: (8) Hx of kidney transplant: Plan A- fib with RVR History of A-fib, not anticoagulated due to AIHA. Pt using metoprolol 100mg at home for rate control. Presents today with A-fib with RVR. Heart rate appears to be improving with IV digoxin, but remains in a-fib. BP's have also improved with IVF and hydrocortisone IV. - Continue digoxin IV 125mcg q6h - Continue NSS IV 150mls/hr - Continue hydrocortisone 50mg IV q6h - Consider change to Diltiazem if pressures are maintained over the next 12-24 hours Elevated troponin Downtrending from 127 to 68. -Will continue to monitor HFpEF Last Echo was from 07/13/24 showing moderate LVH, mild left atrial dilatation and severe right atrial dilatation. PE is not showing evidence of volume overload at this time. -Continue strict I &O in setting of IVF VTE ppx: scds, teds Diet: heart healthy Code status: full Dispo: pcu/tele Supervising Physician Co-Signing Physician Notes Patient seen and examined. Agree with assessment and plan as outlined by Dr. Ojeda. Impression 1. Atrial fibrillation with a rapid ventricular response -Improving with IV hydration and IV hydrocortisone. -Responded well to intravenous digoxin. -Continue digoxin loading. -Continue metoprolol succinate. -Hopefully we can initiate long-term anticoagulation. History of Present Illness Reason for Consultation: A-fib with RVR Requesting Physician: Ella Bolivar PA-C Attending Physician: Ranjeet Frederick MD History of Present Illness Pt is a 63 yo male with PMH is CHF, A-fib (rate controlled with meds), hx of kidney transplant, AIHA, hypothyroidism, obesity, HLD and osteoporosis. Pt presented to ED with primary c/o green diarrhea and weakness. Pt was found to be in a-fib with RVR as well as left basilar opacity found on chest x-ray indicating possible pneumonia. Pt was showing signs of sepsis with significant hypotension and elevated creatinine indicating KRISSY. Pt was given IVF, started in empiric IV antibiotics. Pt was also started on digoxin IV for cardiac rate control and stress hydrocortisone IV as he takes prednisone daily for AIHA. This afternoon, pt's heart rate is gradually decreasing and averaging at 120, BP's have improved to 115/78. Pt remains in a-fib on telemetry. Pt reports continued feeling of fatigue and weakness. He endorses lack of appetite, mild non-productive cough, and diarrhea. Pt denies chest pain, SOB, nausea, vomiting, extremity edema, dizziness, lightheadedness, or syncope. Allergies Allergy/AdvReac Type Severity Reaction Status Date / Time clopidogrel [From Plavix] Allergy Unknown Unknown Verified 05/24/24 10:19 Qsbixrk-JCL-EzS Reductase AdvReac Intermediate myalgias Verified 05/24/24 10:19 Inhibitor [Awfkxbt-Dkn-Lpr Reductase Inhibitor] Home Medications Medication Instructions Recorded Confirmed Type mycophenolate mofetil 250 mg 500 mg (2 x 250 mg) PO BID #360 05/29/20 07/26/24 Rx capsule caps amoxicillin 500 mg capsule 2,000 mg PO DIRECTED PRN PRIOR 07/29/20 07/26/24 History TO DENTAL PROCEDURES multivitamin 1 tab PO QAM 08/02/21 07/26/24 History magnesium oxide 500 mg PO HS 09/04/23 07/26/24 History folic acid 1 mg tablet 1 mg PO BID #180 tabs 09/20/23 07/26/24 Rx pantoprazole 40 mg tablet,delayed 40 mg PO BID #180 tabs 12/06/23 07/26/24 Rx release calcium carbonate 500 mg PO QAM 01/21/24 07/26/24 History ferrous sulfate 325 mg (65 mg 325 mg PO BID #60 tabs 02/05/24 07/26/24 Rx iron) tablet prednisone 5 mg tablet 5 mg PO DAILY #90 tabs 02/27/24 07/26/24 Rx levothyroxine 125 mcg tablet 125 mcg PO QAM #90 tabs 03/04/24 07/26/24 Rx tacrolimus 1 mg capsule, 3 mg PO DAILY 04/16/24 07/26/24 History immediate-release metoprolol succinate 100 mg 100 mg PO HS #90 tabs 04/22/24 07/26/24 Rx tablet,extended release 24 hr acyclovir 400 mg tablet 400 mg PO BID 05/07/24 07/26/24 History ondansetron 4 mg disintegrating 4 mg PO Q8 PRN nausea #20 tabs 05/22/24 07/26/24 Rx tablet allopurinol 100 mg tablet 200 mg (2 x 100 mg) PO DAILY #60 06/03/24 07/26/24 Rx tabs Patient History Medical History Encounter for pre-operative examination History of non-ST elevation myocardial infarction (NSTEMI) entered into chart 01/2023 Osteoporosis Hypothyroidism Hyperlipidemia Hx of esophageal reflux controlled, stable per pt 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 Abdominal aortic aneurysm 4.9 cm on 01/2023 chest CTA CKD (chronic kidney disease) History of colon polyps Retroperitoneal mass lesion biopsy negative for malignancy 05/2022 per transplant record 03/17/23 Pneumonia HX Adrenal nodule monitored by PCP Arthritis On prednisone therapy Atrial fibrillation controlled w/ metoprolol, no cardio Rosales's esophagus with esophagitis Atrial flutter unaware 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 Warm autoimmune hemolytic anemia Sleep apnea no device Thoracic ascending aortic aneurysm 4.[address] 01/19/24 Hypertension controlled, stable per pt Limb alert care status left arm restriction History of blood transfusion 01/2024 Hx of herpetic maria History of COVID-19 07/2020- covid pneumonia, hospitalized; resolved History of renal dialysis prior to kidney transplant; has dialysis fistula left arm History of CVA (cerebrovascular accident) 2008, mild memory changes Surgical History History of esophagogastroduodenoscopy (EGD) Hx of cholecystectomy Hx of exploratory laparotomy Hx of kidney [place] 02[place]2010[place] History of colonoscopy Family History Grandmother (Maternal) Alzheimer disease Mother Depression Denies family history of Ovarian cancer Prostate cancer Diabetes Heart disease Myocardial infarction Breast cancer Lung cancer COPD (chronic obstructive pulmonary disease) Colorectal cancer Hypertension Stroke Social History Smoking Status: Never smoker Second Hand Exposure: No; Do You Dip or Chew Tobacco: No; Hx Alcohol Use: No Hx Substance Use: No 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: Omani Communication Ability: Effective Visual Impairment: No Limitations Hearing Ability: Normal Joy Loading Machine Operator Required: No Beliefs That Will Affect Care: None marital status: Current Living Situation: Spouse current occupational status: employed current occupation: [employer] How many Children do You have: 1 Other Information That Helps Us Care for You: No Feels Safe at Home: Yes Safety Concerns: Feels Safe At This Time Childhood Exposure to Second-Hand Smoke: No Dental Care, Regularly: Yes Seatbelt Use: sometimes Sunscreen Use: No Assistive Devices: Cane and Walker Review of Systems Review of Systems: As per HPI Physical Exam Constitutional: WD/WN, vitals as above Neck: + thick neck Respiratory: normal respiratory effort, + cough and able to speak in complete sentences; no respiratory distress Auscultation: + rhonchi (Left lower lobe) and + pleural rub present (heard on expiration at bilateral lower lobes) Cardiovascular: Rate/Rhythm: + tachycardic and + irregularly irregular Heart Sounds: normal S1 and normal S2; no murmur Vessels: normal peripheral p ulses Extremities: + edema (right hand and bilateral ankles and feet. Nonpitting) Gastrointestinal (Abdomen): normal bowel sounds, soft, nontender, no hepatosplenomegaly Musculoskeletal: no cyanosis or clubbing, extremities motor strength 5/5 Skin: no rashes, warm and dry Neurologic: PERRL, EOMI, accommodation nl, no face palsy, no dysarthria Psychiatric: A+Ox3, euthymic affect Results & Data Vital Signs (Past 12 Hours) Vital Signs Temp Pulse Pulse Resp BP BP Pulse Ox 07/26/24 13:00 07/26/24 13:00 37 C 112 H 16 115/78 96 07/26/24 12:13 07/26/24 12:00 130 H 18 110/75 07/26/24 11:30 122 H 21 103/70 07/26/24 11:24 127 H 24 07/26/24 11:00 134 H 23 100 07/26/24 10:57 137 H 07/26/24 10:57 144 H 18 88/68 L 96 07/26/24 10:54 143 H 18 100 07/26/24 10:45 137 H 21 98 07/26/24 10:30 140 H 20 91 07/26/24 10:30 144 H 20 97/70 L 07/26/24 10:15 142 H 23 07/26/24 10:09 150 H 22 07/26/24 10:00 139 H 14 82/66 L 96 07/26/24 09:51 152 H 22 07/26/24 09:42 07/26/24 09:30 153 H 24 97 07/26/24 09:27 141 H 14 92/69 L 99 07/26/24 09:21 142 H 28 H 96 07/26/24 09:06 150 H 19 07/26/24 09:06 141 H 07/26/24 08:38 37.1 C 150 H 16 106/64 95 O2 Del Method 07/26/24 13:00 Room Air 07/26/24 13:00 Room Air 07/26/24 12:13 Room Air 07/26/24 12:00 Room Air 07/26/24 11:30 07/26/24 11:24 07/26/24 11:00 07/26/24 10:57 07/26/24 10:57 Room Air 07/26/24 10:54 07/26/24 10:45 07/26/24 10:30 07/26/24 10:30 Room Air 07/26/24 10:15 07/26/24 10:09 07/26/24 10:00 Room Air 07/26/24 09:51 07/26/24 09:42 Room Air 07/26/24 09:30 Room Air 07/26/24 09:27 Room Air 07/26/24 09:21 Room Air 07/26/24 09:06 07/26/24 09:06 07/26/24 08:38 Room Air, Oxymask PG Care Time/CCT Total # of Minutes Spent Total Time Spent with Patient: Total time spent is greater than 50% in coordination of care (as documented) at patient's floor/unit and/or counseling patient: Coding Level of Care Code 42643 IN/OBS CONSULT LVL 4,60M Diagnoses Sepsis due to pneumonia J18.9; A41.9 Atrial fibrillation with rapid ventricular response I48.91 Warm autoimmune hemolytic anemia D59.11 Hypomagnesemia E83.42 Elevated troponin R79.89 Heart failure with preserved ejection fraction I50.30 Acute diarrhea R19.7 Hx of kidney transplant Z94.0 Resident Activity Tracking Resident Involvement: Resident Care Provided Care Provided: Adult Hospital Medicine
[2024-07-26 15:00] LABS: Adenovirus F 40/41 PCR Not Detected (NotDetected); Astrovirus PCR Not Detected (NotDetected); Campylobacter PCR Not Detected (NotDetected); Cryptosporidium PCR Not Detected (NotDetected); Cyclospora cayetanensis PCR Not Detected (NotDetected); E.coli O157 PCR Not Detected (NotDetected); Entamoeba histolytica PCR Not Detected (NotDetected); Enteroaggregative E.coli(EAEC) Not Detected (NotDetected); Enterotoxigenic E.coli (ETEC) Not Detected (NotDetected); Giardia lamblia PCR Not Detected (NotDetected); Norovirus GI/GII PCR Not Detected (NotDetected); Plesiomonas shigelloides PCR Not Detected (NotDetected); Rotavirus A PCR Not Detected (NotDetected); Salmonella PCR Not Detected (NotDetected); Sapovirus PCR Not Detected (NotDetected); Shigella/Enteroinvasive E.coli Not Detected (NotDetected); Vibrio cholerae PCR Not Detected (NotDetected); Vibrio species PCR Not Detected (NotDetected); Yersinia enterocolitica PCR Not Detected (NotDetected)
--- NOTE | 2024-07-26 15:13 | Oncology Consultation ---
Date of Consultation July 26, 2024 Assessment & Plan (1) Warm autoimmune hemolytic anemia: had a discussion with our hospital internal medicine colleague, recommend that keep his hemoglobin above 8 given his cardiovascular comorbidities, transfuse to maintain hemoglobin levels greater than 8 g/dL. I have recommended IVIG given that he has A-fib with RVR and high-dose steroids can worsen the atrial fibrillation and heart failure. We gave him Velcade however his hemoglobin did drop to 8.5 salt patient will resume therapy and we will potentially add other immunosuppressive agents for outpatient control of warm autoimmune hemolytic anemia. Rest of the medical workup and treatment per our hospital internal medicine colleagues including treatment for the patient's atrial fibrillation with RVR, CHF and other comorbidities. Treatment of pneumonia per our hospital internal medicine colleagues. Plan . Hematology will continue to follow the patient make appropriate recommendations. Thank you for this interesting hematological consult History of Present Illness Reason for Consultation: Autoimmune hemolytic anemia Attending Physician: Ranjeet Frederick MD History of Present Illness Warm AIHA Diagnosis: 07/2023 Treatment: Prednisone 60 mg PO daily tapered; currently on 5 mg PO daily dose High-dose prednisone Rituximab, day 1 05/02/2022 followed by rituximab every 2 months IVIG High-dose Cytoxan x 2 Current treatment: Maintenance bortezomib 1.3 mg/m q. [address] Chest diagnostic; 10/25/2023: 11 mm irregular groundglass nodule within the right lung apex. Interval development of a mild subacute superior endplate compression fracture at T12 vertebrae. Irregular soft tissue density portion of the left adrenal gland. Aneurysmal dilatation of the thoracic aorta. EGD; 09/13/2023: Squamocolumnar mucosa with reactive changes and intestinal metaplasia consistent with Rosales's esophagus. Gastric cardia type mucosa. Negative for malignancy and dysplasia CT Abdomen pelvis without contrast; 07/05/2023: Progressive infiltrative soft tissue attenuating foci throughout the retroperitoneuam and mesentry. Lymphoproliferative disorder is the diagnosis of exclusion. CT chest abdomen pelvis, 06/27/2024 IMPRESSION: 1. A 10 mm groundglass nodule at the right apex has not appreciably changed. A small adenomatous lesion is not excluded. Continued attention at follow-up is recommended. 2. No new or enlarging pulmonary lesion is seen. 3. Cardiomegaly. 4. There is no airspace consolidation typical for pneumonia or pleural effusion. 5. Splenomegaly. 6. The appearance of the liver suggests early morphologic changes of cirrhosis. 7. Numerous irregular lesions scattered throughout the retroperitoneum and peritoneum have continued to modestly decreased in size as compared to 01/19/2024. The appearance favors a lymphoproliferative disorder. Correlate with the o ncological history. 8. Mildly enlarged mediastinal lymph nodes are nonspecific but new from 01/19/2024. These may be reactive. Continued attention at follow-up is recommended. No additional enlarged lymph nodes are seen. 9. Moderate hiatal hernia. 10. Colonic diverticulosis without CT evidence of acute diverticulitis. 11. A right pelvic renal transplant is again noted. There is no hydronephrosis. 12. Aneurysmal dilatation of the ascending thoracic aorta is unchanged. This measures up to 4.8 cm. 13. Additional findings as above. Outside bone marrow biopsy, 2022: No evidence of malignancy bone marrow biopsy, 01/12/2024: FINAL DIAGNOSIS Peripheral blood, bone marrow aspiration, core biopsy and clot section: - Mildly hypercellular marrow (60-70%) with trilineage hematopoiesis - Erythroid hyperplasia and red cell agglutination - No evidence of myelodysplasia the patient is a very pleasant 63-year-old man who is very well-known to me with a past history of warm autoimmune hemolytic anemia, who is currently on treatment with Velcade. He was admitted to the hospital last week with exacerbation of warm autoimmune hemolytic anemia where he needed multiple blood transfusions received Solu-Medrol 1 g for 3 days followed by IVIG 1 g/kg for 2 days, subsequently his hemoglobin improved. I saw him outpatient in the hematology clinic and resumed his Velcade for immunosuppression for his warm autoimmune hemolytic anemia. He is currently admitted to the hospital with sepsis due to pneumonia, atrial fibrillation with rapid ventricular response rate. He is currently on antibiotics, is very tired and fatigued. Allergies Allergy/AdvReac Type Severity Reaction Status Date / Time clopidogrel [From Plavix] Allergy Unknown Unknown Verified 05/24/24 10:19 Ukqpnds-ITH-HnQ Reductase AdvReac Intermediate myalgias Verified 05/24/24 10:19 Inhibitor [Dwyqups-Wxj-Ssr Reductase Inhibitor] Home Medications Medication Instructions Recorded Confirmed Type mycophenolate mofetil 250 mg 500 mg (2 x 250 mg) PO BID #360 05/29/20 07/26/24 Rx capsule caps amoxicillin 500 mg capsule 2,000 mg PO DIRECTED PRN PRIOR 07/29/20 07/26/24 History TO DENTAL PROCEDURES multivitamin 1 tab PO QAM 08/02/21 07/26/24 History magnesium oxide 500 mg PO HS 09/04/23 07/26/24 History folic acid 1 mg tablet 1 mg PO BID #180 tabs 09/20/23 07/26/24 Rx pantoprazole 40 mg tablet,delayed 40 mg PO BID #180 tabs 12/06/23 07/26/24 Rx release calcium carbonate 500 mg PO QAM 01/21/24 07/26/24 History ferrous sulfate 325 mg (65 mg 325 mg PO BID #60 tabs 02/05/24 07/26/24 Rx iron) tablet prednisone 5 mg tablet 5 mg PO DAILY #90 tabs 02/27/24 07/26/24 Rx levothyroxine 125 mcg tablet 125 mcg PO QAM #90 tabs 03/04/24 07/26/24 Rx tacrolimus 1 mg capsule, 3 mg PO DAILY 04/16/24 07/26/24 History immediate-release metoprolol succinate 100 mg 100 mg PO HS #90 tabs 04/22/24 07/26/24 Rx tablet,extended release 24 hr acyclovir 400 mg tablet 400 mg PO BID 05/07/24 07/26/24 History ondansetron 4 mg disintegrating 4 mg PO Q8 PRN nausea #20 tabs 05/22/24 07/26/24 Rx tablet allopurinol 100 mg tablet 200 mg (2 x 100 mg) PO DAILY #60 06/03/24 07/26/24 Rx tabs Patient History Medical History Encounter for pre-operative examination History of non-ST elevation myocardial infarction (NSTEMI) entered into chart 01/2023 Osteoporosis Hypothyroidism Hyperlipidemia Hx of esophageal reflux controlled, stable per pt 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 Abdominal aortic aneurysm 4.9 cm on 01/2023 chest CTA CKD (chronic kidney disease) History of colon polyps Retroperitoneal mass lesion biopsy negative for malignancy 05/2022 per transplant record 03/17/23 Pneumonia HX Adrenal nodule monitored by PCP Arthritis On prednisone therapy Atrial fibrillation controlled w/ metoprolol, no cardio Rosales's esophagus with esophagitis Atrial flutter unaware 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 Sleep apnea no device Thoracic ascending aortic aneurysm 4.[address] 01/19/24 Hypertension controlled, stable per pt Limb alert care status left arm restriction History of blood transfusion 01/2024 Hx of herpetic maria History of COVID-19 07/2020- covid pneumonia, hospitalized; resolved History of renal dialysis prior to kidney transplant; has dialysis fistula left arm History of CVA (cerebrovascular accident) 2008, mild memory changes Surgical History History of esophagogastroduodenoscopy (EGD) Hx of cholecystectomy Hx of exploratory laparotomy [place] History of colonoscopy Family History Grandmother (Maternal) Alzheimer disease Mother Depression Denies family history of Ovarian cancer Prostate cancer Diabetes Heart disease Myocardial infarction Breast cancer Lung cancer COPD (chronic obstructive pulmonary disease) Colorectal cancer Hypertension Stroke Social History Smoking Status: Never smoker Second Hand Exposure: No; Do You Dip or Chew Tobacco: No; Hx Alcohol Use: No Hx Substance Use: No 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: Moroccan Communication Ability: Effective Visual Impairment: No Limitations Hearing Ability: Normal Tour Leader Required: No Beliefs That Will Affect Care: None marital status: Current Living Situation: Spouse current occupational status: employed current occupation: [employer] How many Children do You have: 1 Other Information That Helps Us Care for You: No Feels Safe at Home: Yes Safety Concerns: Feels Safe At This Time Childhood Exposure to Second-Hand Smoke: No Dental Care, Regularly: Yes Seatbelt Use: sometimes Sunscreen Use: No Assistive Devices: Cane and Walker Review of Systems Review of Systems: Fatigue, tiredness, shortness of breath Constitutional: as per Subjective / HPI Eyes: as per Subjective / HPI Ear, Nose, Mouth, Throat: as per Subjective / HPI Respiratory: as per Subjective / HPI Cardiovascular: as per Subjective / HPI Gastrointestinal: as per Subjective / HPI Genitourinary: + as per Subjective / HPI Musculoskeletal: as per Subjective / HPI Integumentary: as per Subjective / HPI Neurologic: as per Subjective / HPI Psychiatric: as per Subjective / HPI Endocrine: as per Subjective / HPI Hematologic / Lymphatic: as per Subjective / HPI Allergy / Immunological: as per Subjective / HPI Physical Exam Constitutional: WD/WN, vitals as above Eyes: PERRL, conjunctivae normal, anicteric sclerae ENMT: external ear and nose normal, oropharynx normal Neck: trachea midline, no thyromegaly Respiratory: normal respiratory effort, lungs clear to auscultation Cardiovascular: RRR, no murmur, no edema Gastrointestinal (Abdomen): normal bowel sounds, soft, nontender, no hepatosplenomegaly Musculoskeletal: no cyanosis or clubbing, extremities motor strength 5/5 Skin: no rashes, warm and dry Neurologic: patellar DTR's 2+ bilat, sensation intact Psychiatric: A+Ox3, euthymic affect Genitourinary: no testicular masses, no penis abnormality Lymphatic: no cervical or axillary lymphadenopathy Results & Data Vital Signs (Past 12 Hours) Vital Signs Temp Pulse Pulse Resp BP BP Pulse Ox 07/26/24 13:00 07/26/24 13:00 37 C 112 H 16 115/78 96 07/26/24 12:13 07/26/24 12:00 130 H 18 110/75 07/26/24 11:30 122 H 21 103/70 07/26/24 11:24 127 H 24 07/26/24 11:00 134 H 23 100 07/26/24 10:57 137 H 07/26/24 10:57 144 H 18 88/68 L 96 07/26/24 10:54 143 H 18 100 07/26/24 10:45 137 H 21 98 07/26/24 10:30 140 H 20 91 07/26/24 10:30 144 H 20 97/70 L 07/26/24 10:15 142 H 23 07/26/24 10:09 150 H 22 07/26/24 10:00 139 H 14 82/66 L 96 07/26/24 09:51 152 H 22 07/26/24 09:42 07/26/24 09:30 153 H 24 97 07/26/24 09:27 141 H 14 92/69 L 99 07/26/24 09:21 142 H 28 H 96 07/26/24 09:06 150 H 19 07/26/24 09:06 141 H 07/26/24 08:38 37.1 C 150 H 16 106/64 95 O2 Del Method 07/26/24 13:00 Room Air 07/26/24 13:00 Room Air 07/26/24 12:13 Room Air 07/26/24 12:00 Room Air 07/26/24 11:30 07/26/24 11:24 07/26/24 11:00 07/26/24 10:57 07/26/24 10:57 Room Air 07/26/24 10:54 07/26/24 10:45 07/26/24 10:30 07/26/24 10:30 Room Air 07/26/24 10:15 07/26/24 10:09 07/26/24 10:00 Room Air 07/26/24 09:51 07/26/24 09:42 Room Air 07/26/24 09:30 Room Air 07/26/24 09:27 Room Air 07/26/24 09:21 Room Air 07/26/24 09:06 07/26/24 09:06 07/26/24 08:38 Room Air, Oxymask
[2024-07-26 15:18] LABS: Shiga-like Toxin E.coli (STEC) DETECTED (NotDetected)
[2024-07-26] MEDS: DIGOXIN 125 MCG in SYRINGE 9.5 ML IV SCH (18:09)
[2024-07-26 18:18] LABS: Hematocrit (blood only) 22.5 % (42.0-52.0); Hemoglobin 7.2 g/dl (14.0-18.0)
[2024-07-26] MEDS: HYDROCORTISONE SOD 50 MG in SYRINGE 0 ML IV SCH (18:18)
[2024-07-26 18:36] LABS: Magnesium 1.6 mg/dl (1.7-2.4)
[2024-07-26 18:48] LABS: Troponin I High Sensitivity 64.5 pg/ml (0-20)
[2024-07-26] MEDS ORDERED: HYDROCORTISONE SOD SUCCINATE 100 MG/2 ML VIAL IV SCH (19:00)
[2024-07-26] MEDS: FOLIC ACID 1 MG TAB PO SCH (19:49)
[2024-07-26] MEDS: MYCOPHENOLATE MOFETIL 250 MG CAP PO SCH (19:49)
[2024-07-26] MEDS: FERROUS SULFATE 325 MG TAB PO SCH (19:49)
[2024-07-26] MEDS: ACYCLOVIR 400 MG TAB PO SCH (19:49)
[2024-07-26] MEDS: TACROLIMUS 1 MG CAP PO SCH (19:50)
[2024-07-26] MEDS: PANTOprazole 40 MG TAB PO SCH (19:50)
[2024-07-26] MEDS: METOPROLOL SUCC 50MG EXT REL TAB PO SCH (19:52)
[2024-07-26 20:30] LABS: Appearance Urine Turbid (Clear); Bacteria Urine Automated 1+ (None Seen); Bilirubin Urine 1+ (Negative); Blood Urine 2+ (Negative); Color Urine Orange; Epithelial Cell Urine Auto 0-2 /hpf (0-2); Glucose Urine UA Negative (Negative); Ketones Urine Negative (Negative); Leukocyte Esterase Urine 3+ (Negative); Nitrite Urine Positive (Negative); Protein Urine 1+ (Negative); Specific Gravity Urine 1.013 (1.000-1.030); Urobilinogen Urine Negative (Negative); WBC Urine Automated >50 /hpf (0-5)
[2024-07-27 01:02] LABS: Hematocrit (blood only) 22.8 % (42.0-52.0); Hemoglobin 7.2 g/dl (14.0-18.0)
[2024-07-27] MEDS ORDERED: SODIUM CHLORIDE 0.9% 50 ML IV PRN (04:53)
[2024-07-27] MEDS ORDERED: SODIUM CHLORIDE 0.9% 100 ML IV PRN (04:53)
[2024-07-27] MEDS: LEVOTHYROXINE SODIUM 125 MCG TABLET PO SCH (05:50)
[2024-07-27 07:28] LABS: Hematocrit (blood only) 22.7 % (42.0-52.0); Hemoglobin 7.2 g/dl (14.0-18.0); Mean Corpuscular Hemoglobin 35.1 pg (25.0-34.0); Mean Corpuscular Hgb Conc 31.7 g/dL (32.0-36.0); Mean Corpuscular Volume 110.7 fL (80.0-100.0); Mean Platelet Volume 11.6 fL (9.4-12.4); Platelet Count 68 K/uL (130-400); RDW Coefficient of Variation 14.7 % (11.5-14.5); RDW Standard Deviation 60.9 fL (36.4-46.3); Red Blood Count 2.05 M/uL (4.70-6.10); White Blood Count 5.76 K/ul (4.8-10.8)
[2024-07-27 07:29] LABS: Immature Granulocytes # (auto) 0.15 K/uL (0.01-0.20); Immature Granulocytes % (auto) 2.6 %; Lymphocytes % (auto) 1.7 %; Macrocytosis Present; Monocytes # (auto) 0.16 K/uL (0.11-0.59); Monocytes % (auto) 2.8 %; Neutrophils # (auto) 5.35 K/uL (1.40-6.50); Neutrophils % (auto) 92.9 %
[2024-07-27 07:38] LABS: Albumin Globulin Ratio 0.8 (0.9-2); Albumin Level 2.3 gm/dl (3.4-5.0); BUN Creatinine Ratio 30.6 (10-20); Bilirubin,Total 1.9 mg/dl (0.2-1.0); Creatinine Clr Calc Pharmacy 50.9 ml/min; Globulin 2.8 gm/dl (2.5-4.0); Magnesium 1.7 mg/dl (1.7-2.4); Potassium 4.6 mmol/L (3.5-5.1); Total Protein 5.1 gm/dl (6.0-8.3)
[2024-07-27] MEDS ORDERED: TACROLIMUS 1 MG CAP PO SCH (09:00)
[2024-07-27] MEDS: TACROLIMUS 1 MG CAP PO SCH (09:18)
[2024-07-27] MEDS: CALCIUM CARBONATE 1250MG TAB PO SCH (09:20)
[2024-07-27] MEDS: allopurinoL 100 MG TAB PO SCH (09:21)
[2024-07-27] MEDS: cefTRIAXone SODIUM 2,000 MG/50 ML BAG IV SCH (09:27)
--- NOTE | 2024-07-27 11:31 | Hospitalist Progress Note ---
Date of Service July 27, 2024 Assessment & Plan (1) Sepsis due to pneumonia: Plan: - CXR showing moderate left basilar opacity - blood cultures ordered - given 2G Rocephin in ER -> continue on admission (2) Atrial fibrillation with rapid ventricular response: Plan: - with tachycardia on admission but hypotensive, discussed with on-call truck repair supervisor Dr. Kohler - Digoxin 250 mcg on admission, followed by 125 mcg Q6 x 2 bags overnight - will defer anticoagulation at this time given decrease in hemoglobin, and increasing bilirubin; see below - cardiology consult appreciated - continue home metoprolol 100 at bedtime - Continue to monitor on Telemetry (3) Warm autoimmune hemolytic anemia: Plan: recent history on previous admission, needed Solu-Medrol 1G x 3 days and IVIG x 2 doses - Hgb 8.5, slightly decreased from recent discharge - total bilirubin 2.9, elevated from recent discharge - possibly secondary from volume contraction however may suggest hemolysis - LDH, haptoglobin, peripheral smear, and Tawanna test pending - really requires units of blood to be shipped out from outside facilities, 2 units ordered in the event that patient may need transfusion, had to be held at this time - follows with Dr. Gonsalez, oncology consulted - daily CBC -will receive IVIG and blood transfusion. Adrenal insufficiency - with recent high-dose steroid use and chronically steroid-dependent due to renal transplant, at high risk of adrenal insufficiency - possibly contributing to hypotension - Random cortisol ordered - will give hydrocortisone as above (4) Hypomagnesemia: Plan: likely secondary to diarrhea - 1.2 on admission - 2g IV mg in ER - addition of daily magnesium supplement BID on admission - trend Mg (5) Elevated troponin: Plan: Elevated on admission likely secondary to A-fib with RVR - 127.7 -> 68.0 - EKG showed A-fib with RVR, inferior T wave inversions - continue to trend overnight - monitor on telemetry (6) Heart failure with preserved ejection fraction: Plan: - Last echocardiogram on 07/14 showed normal left ventricular systolic function, EF 55 to 60%, moderate LVH, RV mildly dilated, LA moderately dilated, RA severely dilated, mild aortic regurg, mild mitral regurg - BNP 834 on admission - CXR showed cardiomegaly and pulmonary vascular compression, although improved since previous x-ray - with hypotension and need for rate controlling measures, was given fluid resuscitation as above, will continue to monitor for signs of acute failure - Heart healthy, low-sodium diet - Strict I&O monitoring - Daily weights - SCDs, alexander stockings, promote leg elevation (7) Acute diarrhea: Plan: diarrhea since discharge 1 week ago No recent antibiotic use C. difficile and stool cultures pending, although do not suspect at this time (8) Hx of kidney transplant: Plan: - Creatinine 1.8, upper limit of normal - Promote oral hydration - fluid resuscitation as above - Avoid nephrotoxic agents - hold prednisone in setting of IV steroids - Continue tacrolimus and mycophenolate - daily BMP Plan Chronic stable diagnoses: gout - continue allopurinol VTE ppx: scds, teds Diet: heart healthy Code status: full Dispo: pcu/tele; to be evaluated by heme/onc and cardiology following. Admission and Anticipated Discharge Date Admission Date: July 26, 2024 Subjective No events overnight, pt resting comfortably in chair. Consented for blood transfusion this morning. Review of Systems Review of Systems: CONST: Negative for fever, body aches and chills. HENT: Negative for neck pain/stiffness, headache, congestion, sore throat, swelling. EYES: Negative for discharge/pain or vision changes. RESP: Negative for cough/hemoptysis and shortness of breath. CV: Negative chest pain, difficulty breathing, palpitations. ABD: Negative pain, nausea, vomiting. : Negative increase frequency, dysuria, blood in urine or stool. MUSC: Negative for muscle aches, edema. SKIN: Negative rash, lesions/sores. NEURO: Negative headache, dizziness, weakness. Physical Exam Physical Exam: GENERAL APPEARANCE NAD, activity normal for age, well developed/ well nourished, no cyanosis, pallor, or diaphoresis. EYES lids/conjunctiva normal. EARS/NOSE/THROAT Mucous membranes moist, nares normal, lips/teeth normal uvula midline without oral pharyngeal erythema, exudate or swelling TMs normal bilaterally. No lymphangitis/lymphedema. HEAD/NECK normocephalic atraumatic, no facial trauma, neck is supple. RESPIRATORY respiratory effort normal, speaks in full sentences, no tripod position, no accessory muscle use. Lungs clear to auscultation without rhonchi, wheezes, rales CARDIAC Regular rate and rhythm, no edema. ABDOMINAL Soft, ND/NT. No evidence of fluid wave. No pulsatile masses on exam, rebound tenderness, Cohn sign or pain over Mcburney's point. MUSCLES/EXTREMITIES No abnormal range of motion, no swelling. SKIN Warm, pink and dry. No rashes, dermatoses, petechiae or lesions. NEUROLOGICAL Speech is clear and appropriate. Normal level of consciousness. Gait and coordination are normal. 5/5 strength in all extremities. PSYCH Normal mood and affect. Judgement/competence is appropriate Results & Data Results & Data Vital Signs (Past 12 Hours) Vital Signs Temp Pulse Pulse Resp BP Pulse Ox O2 Del Method 07/27/24 08:13 36.3 C L 88 20 135/83 95 Room Air 07/27/24 08:06 36.3 C L 116 H 22 118/84 98 Room Air 07/27/24 05:03 36.8 C 101 H 20 129/80 98 Room Air 07/27/24 00:52 99 H 07/27/24 00:23 36.8 C 96 H 21 109/82 99 Room Air 07/27/24 00:11 103 H PG Care Time/CCT Total # of Minutes Spent Total Time Spent with Patient: Total time spent is greater than 50% in coordination of care (as documented) at patient's floor/unit and/or counseling patient: Coding Level of Care Code 29958 SUB INP/OBS CARE 2/35MIN Diagnoses Sepsis due to pneumonia J18.9; A41.9 Atrial fibrillation with rapid ventricular response I48.91 Warm autoimmune hemolytic anemia D59.11 Hypomagnesemia E83.42 Elevated troponin R79.89 Heart failure with preserved ejection fraction I50.30 Acute diarrhea R19.7 Hx of kidney transplant Z94.0
[2024-07-27] MEDS: SODIUM CHLORIDE 0.9% 500 ML IV ONE (14:13)
[2024-07-27] MEDS: HYDROCORTISONE SOD 100 MG in SYRINGE 0 ML IV STA (15:06)
[2024-07-28 07:06] LABS: Hematocrit (blood only) 24.6 % (42.0-52.0); Hemoglobin 8.1 g/dl (14.0-18.0); Mean Corpuscular Hemoglobin 35.4 pg (25.0-34.0); Mean Corpuscular Hgb Conc 32.9 g/dL (32.0-36.0); Mean Corpuscular Volume 107.4 fL (80.0-100.0); Mean Platelet Volume 11.5 fL (9.4-12.4); Platelet Count 93 K/uL (130-400); RDW Coefficient of Variation 16.4 % (11.5-14.5); RDW Standard Deviation 64.7 fL (36.4-46.3); Red Blood Count 2.29 M/uL (4.70-6.10); White Blood Count 8.56 K/ul (4.8-10.8)
[2024-07-28 07:08] LABS: Basophils # (auto) 0.01 K/uL (0.00-0.20); Basophils % (auto) 0.1 %; Immature Granulocytes # (auto) 0.05 K/uL (0.01-0.20); Immature Granulocytes % (auto) 0.6 %; Lymphocytes # (auto) 0.16 K/uL (1.20-3.40); Lymphocytes % (auto) 1.9 %; Monocytes # (auto) 0.16 K/uL (0.11-0.59); Monocytes % (auto) 1.9 %; Neutrophils # (auto) 8.18 K/uL (1.40-6.50); Neutrophils % (auto) 95.5 %; RBC Morphology Unremarkable
[2024-07-28 07:25] LABS: Albumin Globulin Ratio 0.9 (0.9-2); Albumin Level 2.6 gm/dl (3.4-5.0); BUN Creatinine Ratio 35.1 (10-20); Bilirubin,Total 1.2 mg/dl (0.2-1.0); Calcium 8.1 mg/dl (8.6-10.3); Creatinine Clr Calc Pharmacy 45.8 ml/min; Globulin 2.8 gm/dl (2.5-4.0); Magnesium 1.7 mg/dl (1.7-2.4); Potassium 4.5 mmol/L (3.5-5.1); Total Protein 5.4 gm/dl (6.0-8.3)
--- NOTE | 2024-07-28 11:46 | Hospitalist Progress Note ---
Date of Service July 28, 2024 Assessment & Plan (1) Sepsis due to pneumonia: Plan: - CXR showing moderate left basilar opacity - blood cultures ordered - given 2G Rocephin in ER -> continue on admission (2) Atrial fibrillation with rapid ventricular response: Plan: - with tachycardia on admission but hypotensive, discussed with on-call clinical training specialist Dr. Kohler - Digoxin 250 mcg on admission, followed by 125 mcg Q6 x 2 bags overnight - will defer anticoagulation at this time given decrease in hemoglobin, and increasing bilirubin; see below - cardiology consult appreciated - continue home metoprolol 100 at bedtime - Continue to monitor on Telemetry (3) Warm autoimmune hemolytic anemia: Plan: recent history on previous admission, needed Solu-Medrol 1G x 3 days and IVIG x 2 doses - Hgb 8.5, slightly decreased from recent discharge - total bilirubin 2.9, elevated from recent discharge - possibly secondary from volume contraction however may suggest hemolysis - LDH, haptoglobin, peripheral smear, and Tawanna test pending - really requires units of blood to be shipped out from outside facilities, 2 units ordered in the event that patient may need transfusion, had to be held at this time - follows with Dr. Gonsalez, oncology consulted - daily CBC -will receive IVIG and blood transfusion. Adrenal insufficiency - with recent high-dose steroid use and chronically steroid-dependent due to renal transplant, at high risk of adrenal insufficiency - possibly contributing to hypotension - Random cortisol ordered - will give hydrocortisone as above (4) Hypomagnesemia: Plan: likely secondary to diarrhea - 1.2 on admission - 2g IV mg in ER - addition of daily magnesium supplement BID on admission - trend Mg (5) Elevated troponin: Plan: Elevated on admission likely secondary to A-fib with RVR - 127.7 -> 68.0 - EKG showed A-fib with RVR, inferior T wave inversions - continue to trend overnight - monitor on telemetry (6) Heart failure with preserved ejection fraction: Plan: - Last echocardiogram on 07/14 showed normal left ventricular systolic function, EF 55 to 60%, moderate LVH, RV mildly dilated, LA moderately dilated, RA severely dilated, mild aortic regurg, mild mitral regurg - BNP 834 on admission - CXR showed cardiomegaly and pulmonary vascular compression, although improved since previous x-ray - with hypotension and need for rate controlling measures, was given fluid resuscitation as above, will continue to monitor for signs of acute failure - Heart healthy, low-sodium diet - Strict I&O monitoring - Daily weights - SCDs, alexander stockings, promote leg elevation (7) Acute diarrhea: Plan: diarrhea since discharge 1 week ago No recent antibiotic use C. difficile and stool cultures pending, although do not suspect at this time (8) Hx of kidney transplant: Plan: - Creatinine 1.8, upper limit of normal - Promote oral hydration - fluid resuscitation as above - Avoid nephrotoxic agents - hold prednisone in setting of IV steroids - Continue tacrolimus and mycophenolate - daily BMP Plan Chronic stable diagnoses: gout - continue allopurinol VTE ppx: scds, teds Diet: heart healthy Code status: full Dispo: pcu/tele; to be evaluated by heme/onc and cardiology following. Admission and Anticipated Discharge Date Admission Date: July 26, 2024 Subjective No events overnight, pt resting comfortably in chair. BP stable overnight. Review of Systems Review of Systems: CONST: Negative for fever, body aches and chills. HENT: Negative for neck pain/stiffness, headache, congestion, sore throat, swelling. EYES: Negative for discharge/pain or vision changes. RESP: Negative for cough/hemoptysis and shortness of breath. CV: Negative chest pain, difficulty breathing, palpitations. ABD: Negative pain, nausea, vomiting. : Negative increase frequency, dysuria, blood in urine or stool. MUSC: Negative for muscle aches, edema. SKIN: Negative rash, lesions/sores. NEURO: Negative headache, dizziness, weakness. Physical Exam Physical Exam: GENERAL APPEARANCE NAD, activity normal for age, well developed/ well nourished, no cyanosis, pallor, or diaphoresis. EYES lids/conjunctiva normal. EARS/NOSE/THROAT Mucous membranes moist, nares normal, lips/teeth normal uvula midline without oral pharyngeal erythema, exudate or swelling TMs normal bilaterally. No lymphangitis/lymphedema. HEAD/NECK normocephalic atraumatic, no facial trauma, neck is supple. RESPIRATORY respiratory effort normal, speaks in full sentences, no tripod position, no accessory muscle use. Lungs clear to auscultation without rhonchi, wheezes, rales CARDIAC Regular rate and rhythm, no edema. ABDOMINAL Soft, ND/NT. No evidence of fluid wave. No pulsatile masses on exam, rebound tenderness, Cohn sign or pain over Mcburney's point. MUSCLES/EXTREMITIES No abnormal range of motion, no swelling. SKIN Warm, pink and dry. No rashes, dermatoses, petechiae or lesions. NEUROLOGICAL Speech is clear and appropriate. Normal level of consciousness. Gait and coordination are normal. 5/5 strength in all extremities. PSYCH Normal mood and affect. Judgement/competence is appropriate Results & Data Results & Data Vital Signs (Past 12 Hours) Vital Signs Temp Pulse Resp BP Pulse Ox O2 Del Method 07/28/24 08:14 36.4 C L 102 H 20 138/89 98 Room Air 07/28/24 04:39 36.4 C L 102 H 18 138/89 98 Room Air 07/28/24 00:00 36.4 C L 97 H 18 117/76 98 Room Air PG Care Time/CCT Total # of Minutes Spent Total Time Spent with Patient: Total time spent is greater than 50% in coordination of care (as documented) at patient's floor/unit and/or counseling patient: Coding Level of Care Code 66541 SUB INP/OBS CARE 2/35MIN Diagnoses Sepsis due to pneumonia J18.9; A41.9 Atrial fibrillation with rapid ventricular response I48.91 Warm autoimmune hemolytic anemia D59.11 Hypomagnesemia E83.42 Elevated troponin R79.89 Heart failure with preserved ejection fraction I50.30 Acute diarrhea R19.7 Hx of kidney transplant Z94.0
[2024-07-29 06:46] LABS: Mean Corpuscular Hemoglobin 35.1 pg (25.0-34.0); Mean Corpuscular Hgb Conc 33.3 g/dL (32.0-36.0); Mean Corpuscular Volume 105.3 fL (80.0-100.0); Mean Platelet Volume 11.7 fL (9.4-12.4); Platelet Count 127 K/uL (130-400); RDW Coefficient of Variation 15.8 % (11.5-14.5); Red Blood Count 2.28 M/uL (4.70-6.10); White Blood Count 10.94 K/ul (4.8-10.8)
[2024-07-29 07:08] LABS: BUN Creatinine Ratio 37.8 (10-20); Calcium 8.6 mg/dl (8.6-10.3); Creatinine Clr Calc Pharmacy 46.5 ml/min; Potassium 4.5 mmol/L (3.5-5.1)
--- NOTE | 2024-07-29 09:58 | Hospitalist Progress Note ---
Date of Service July 29, 2024 Assessment & Plan (1) Sepsis due to pneumonia: Plan: - CXR showing moderate left basilar opacity - blood cultures ordered - given 2G Rocephin in ER -> continue on admission (2) Atrial fibrillation with rapid ventricular response: Plan: - with tachycardia on admission but hypotensive, discussed with on-call drill punch operator Dr. Kohler - Digoxin 250 mcg on admission, followed by 125 mcg Q6 x 2 bags overnight - will defer anticoagulation at this time given decrease in hemoglobin, and increasing bilirubin; see below - cardiology consult appreciated - continue home metoprolol 100 at bedtime - Continue to monitor on Telemetry -HR stable (3) Warm autoimmune hemolytic anemia: Plan: recent history on previous admission, needed Solu-Medrol 1G x 3 days and IVIG x 2 doses - Hgb 8.5, slightly decreased from recent discharge - total bilirubin 2.9, elevated from recent discharge - possibly secondary from volume contraction however may suggest hemolysis - LDH, haptoglobin, peripheral smear, and Tawanna test pending - really requires units of blood to be shipped out from outside facilities, 2 units ordered in the event that patient may need transfusion, had to be held at this time - follows with Dr. Gonsalez, oncology consulted - daily CBC -will s/p IVIG and blood transfusion. 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, at high risk of adrenal insufficiency - possibly contributing to hypotension - Random cortisol ordered - will give hydrocortisone as above (4) Hypomagnesemia: Plan: likely secondary to diarrhea - 1.2 on admission - 2g IV mg in ER - addition of daily magnesium supplement BID on admission - trend Mg (5) Elevated troponin: Plan: Elevated on admission likely secondary to A-fib with RVR - 127.7 -> 68.0 - EKG showed A-fib with RVR, inferior T wave inversions - continue to trend overnight - monitor on telemetry (6) Heart failure with preserved ejection fraction: Plan: - Last echocardiogram on 07/14 showed normal left ventricular systolic function, EF 55 to 60%, moderate LVH, RV mildly dilated, LA moderately dilated, RA severely dilated, mild aortic regurg, mild mitral regurg - BNP 834 on admission - CXR showed cardiomegaly and pulmonary vascular compression, although improved since previous x-ray - with hypotension and need for rate controlling measures, was given fluid resuscitation as above, will continue to monitor for signs of acute failure - Heart healthy, low-sodium diet - Strict I&O monitoring - Daily weights - SCDs, alexander stockings, promote leg elevation (7) Acute diarrhea: Plan: diarrhea since discharge 1 week ago No recent antibiotic use C. difficile and stool cultures pending, although do not suspect at this time (8) Hx of kidney transplant: Plan: - Creatinine 1.8, upper limit of normal - Promote oral hydration - fluid resuscitation as above - Avoid nephrotoxic agents - hold prednisone in setting of IV steroids - Continue tacrolimus and mycophenolate - daily BMP Plan Chronic stable diagnoses: gout - continue allopurinol VTE ppx: scds, teds Diet: heart healthy Code status: full Dispo: pcu/tele; to be evaluated by heme/onc and cardiology following. Admission and Anticipated Discharge Date Admission Date: July 26, 2024 Subjective No events overnight, pt resting comfortably in chair. BP stable overnight. Review of Systems Review of Systems: CONST: Negative for fever, body aches and chills. HENT: Negative for neck pain/stiffness, headache, congestion, sore throat, swelling. EYES: Negative for discharge/pain or vision changes. RESP: Negative for cough/hemoptysis and shortness of breath. CV: Negative chest pain, difficulty breathing, palpitations. ABD: Negative pain, nausea, vomiting. : Negative increase frequency, dysuria, blood in urine or stool. MUSC: Negative for muscle aches, edema. SKIN: Negative rash, lesions/sores. NEURO: Negative headache, dizziness, weakness. Physical Exam Physical Exam: GENERAL APPEARANCE NAD, activity normal for age, well developed/ well nourished, no cyanosis, pallor, or diaphoresis. EYES lids/conjunctiva normal. EARS/NOSE/THROAT Mucous membranes moist, nares normal, lips/teeth normal uvula midline without oral pharyngeal erythema, exudate or swelling TMs normal bilaterally. No lymphangitis/lymphedema. HEAD/NECK normocephalic atraumatic, no facial trauma, neck is supple. RESPIRATORY respiratory effort normal, speaks in full sentences, no tripod position, no accessory muscle use. Lungs clear to auscultation without rhonchi, wheezes, rales CARDIAC Regular rate and rhythm, no edema. ABDOMINAL Soft, ND/NT. No evidence of fluid wave. No pulsatile masses on exam, rebound tenderness, Cohn sign or pain over Mcburney's point. MUSCLES/EXTREMITIES No abnormal range of motion, no swelling. SKIN Warm, pink and dry. No rashes, dermatoses, petechiae or lesions. NEUROLOGICAL Speech is clear and appropriate. Normal level of consciousness. Gait and coordination are normal. 5/5 strength in all extremities. PSYCH Normal mood and affect. Judgement/competence is appropriate Results & Data Results & Data Vital Signs (Past 12 Hours) Vital Signs Temp Pulse Pulse Resp BP Pulse Ox O2 Del Method 07/29/24 09:25 78 07/29/24 07:51 36.5 C 79 18 117/81 99 Room Air 07/29/24 03:53 37.0 C 70 19 112/76 98 Room Air 07/29/24 00:00 93 H 07/28/24 23:58 36.7 C 83 20 122/89 99 Room Air PG Care Time/CCT Total # of Minutes Spent Total Time Spent with Patient: Total time spent is greater than 50% in coordination of care (as documented) at patient's floor/unit and/or counseling patient: Coding Level of Care Code 70076 SUB INP/OBS CARE 2/35MIN Diagnoses Sepsis due to pneumonia J18.9; A41.9 Atrial fibrillation with rapid ventricular response I48.91 Warm autoimmune hemolytic anemia D59.11 Hypomagnesemia E83.42 Elevated troponin R79.89 Heart failure with preserved ejection fraction I50.30 Acute diarrhea R19.7 Hx of kidney transplant Z94.0
[2024-07-30 07:04] VITALS: RESP 18
[2024-07-30 07:52] LABS: Hematocrit (blood only) 27.1 % (42.0-52.0); Hemoglobin 8.5 g/dl (14.0-18.0); Mean Corpuscular Hgb Conc 31.4 g/dL (32.0-36.0); Mean Corpuscular Volume 108.4 fL (80.0-100.0); Mean Platelet Volume 11.2 fL (9.4-12.4); Platelet Count 163 K/uL (130-400); RDW Coefficient of Variation 15.9 % (11.5-14.5); White Blood Count 10.44 K/ul (4.8-10.8)
[2024-07-30 08:07] LABS: Calcium 8.9 mg/dl (8.6-10.3); Creatinine Clr Calc Pharmacy 40.8 ml/min; Potassium 4.7 mmol/L (3.5-5.1)
[2024-07-30 08:13] LABS: Basophils # (auto) 0.01 K/uL (0.00-0.20); Basophils % (auto) 0.1 %; Immature Granulocytes # (auto) 0.11 K/uL (0.01-0.20); Immature Granulocytes % (auto) 1.1 %; Lymphocytes # (auto) 0.23 K/uL (1.20-3.40); Lymphocytes % (auto) 2.2 %; Monocytes # (auto) 0.28 K/uL (0.11-0.59); Monocytes % (auto) 2.7 %; Neutrophils # (auto) 9.81 K/uL (1.40-6.50); Neutrophils % (auto) 93.9 %
--- NOTE | 2024-07-30 10:33 | Discharge Summary ---
Discharge Summary Date of Service July 30, 2024 Principal Dx & Hospital Course #1 = Principal Diagnosis (1) Sepsis due to pneumonia: - CXR showing moderate left basilar opacity - blood cultures ordered - given 2G Rocephin in ER -> continue on admission (2) Atrial fibrillation with rapid ventricular response: - with tachycardia on admission but hypotensive, discussed with on-call finisher plate Dr. Kohler - Digoxin 250 mcg on admission, followed by 125 mcg Q6 x 2 bags overnight - will defer anticoagulation at this time given decrease in hemoglobin, and increasing bilirubin; see below - cardiology consult appreciated - continue home metoprolol 100 at bedtime - Continue to monitor on Telemetry -HR stable (3) Warm autoimmune hemolytic anemia: recent history on previous admission, needed Solu-Medrol 1G x 3 days and IVIG x 2 doses - Hgb 8.5, slightly decreased from recent discharge - total bilirubin 2.9, elevated from recent discharge - possibly secondary from volume contraction however may suggest hemolysis - LDH, haptoglobin, peripheral smear, and Tawanna test pending - really requires units of blood to be shipped out from outside facilities, 2 units ordered in the event that patient may need transfusion, had to be held at this time - follows with Dr. Gonsalez, oncology consulted - daily CBC -will s/p IVIG and blood transfusion. 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, at high risk of adrenal insufficiency - possibly contributing to hypotension - Random cortisol ordered - will give hydrocortisone as above (4) Hypomagnesemia: likely secondary to diarrhea - 1.2 on admission - 2g IV mg in ER - addition of daily magnesium supplement BID on admission - trend Mg (5) Elevated troponin: Elevated on admission likely secondary to A-fib with RVR - 127.7 -> 68.0 - EKG showed A-fib with RVR, inferior T wave inversions - continue to trend overnight - monitor on telemetry (6) Heart failure with preserved ejection fraction: - Last echocardiogram on 07/14 showed normal left ventricular systolic function, EF 55 to 60%, moderate LVH, RV mildly dilated, LA moderately dilated, RA severely dilated, mild aortic regurg, mild mitral regurg - BNP 834 on admission - CXR showed cardiomegaly and pulmonary vascular compression, although improved since previous x-ray - with hypotension and need for rate controlling measures, was given fluid resuscitation as above, will continue to monitor for signs of acute failure - Heart healthy, low-sodium diet - Strict I&O monitoring - Daily weights - SCDs, alexander stockings, promote leg elevation (7) Acute diarrhea: diarrhea since discharge 1 week ago No recent antibiotic use C. difficile and stool cultures pending, although do not suspect at this time (8) Hx of kidney transplant: - Creatinine 1.8, upper limit of normal - Promote oral hydration - fluid resuscitation as above - Avoid nephrotoxic agents - hold prednisone in setting of IV steroids - Continue tacrolimus and mycophenolate - daily BMP Plan Chronic stable diagnoses: gout - continue allopurinol VTE ppx: scds, teds Diet: heart healthy Code status: full Dispo: pcu/tele; to be evaluated by heme/onc and cardiology following. Admission HPI Per Admitting Provider Patient is a 63-year-old with a past medical history of AIHA, renal transplant, heart failure preserved ejection fraction, A-fib, gout. he was recently discharged from the hospital on 07/19 due to AIHA, KRISSY acute heart failure pEF. He presents today due to ongoing weakness, cough, and diarrhea. He stated that the symptoms have been ongoing since his recent discharge. He took Imodium for his diarrhea about 4 days ago, which has improved the diarrhea. He reports no episodes of diarrhea today. He states that the weakness is both fatigue and difficulty ambulating. He has also had a decreased appetite. He stated that the cough is not productive and has been ongoing since his recent hospitalization, although mild. His dyspnea on exertion and lower extremity edema has greatly improved since his recent discharge. His EKG on admission showed A-fib with RVR, rate 145. CXR showed possible LLL pneumonia. He was given 1 L NSS bolus, Rocephin, magnesium, and calcium gluconate. Due to his hypotension, BP 88/68, was discussed with on-call finisher plate Dr. Kohler, began digoxin on admission with plasmalyte 500 mL bolus. Patient denies fever, chills, headache, dizziness, lightheadedness, vision changes, rhinorrhea, sore throat, sputum production, orthopnea, chest pain, abdominal pain, nausea, vomiting, dysuria, hematuria, numbness, tingling. He does not use nicotine or drink alcohol. He lives at home with his . He denies past history of diabetes, previous VTE, cancer, COPD or asthma. He did have a TIA "a while back". He does not use oxygen at baseline. He took all of his home medications this morning. He wishes to be Full code at this time. The patient was discussed with Dr. Frederick at the time of the admission/consult. Discharge Exam GENERAL APPEARANCE NAD, activity normal for age, well developed/ well nourished, no cyanosis, pallor, or diaphoresis. EYES lids/conjunctiva normal. EARS/NOSE/THROAT Mucous membranes moist, nares normal, lips/teeth normal uvula midline without oral pharyngeal erythema, exudate or swelling TMs normal bilaterally. No lymphangitis/lymphedema. HEAD/NECK normocephalic atraumatic, no facial trauma, neck is supple. RESPIRATORY respiratory effort normal, speaks in full sentences, no tripod position, no accessory muscle use. Lungs clear to auscultation without rhonchi, wheezes, rales CARDIAC Regular rate and rhythm, no edema. ABDOMINAL Soft, ND/NT. No evidence of fluid wave. No pulsatile masses on exam, rebound tenderness, Cohn sign or pain over Mcburney's point. MUSCLES/EXTREMITIES No abnormal range of motion, no swelling. SKIN Warm, pink and dry. No rashes, dermatoses, petechiae or lesions. NEUROLOGICAL Speech is clear and appropriate. Normal level of consciousness. Gait and coordination are normal. 5/5 strength in all extremities. PSYCH Normal mood and affect. Judgement/competence is appropriate Discharge Plan Discharge Items Patient Disposition: Home - Self-Care Reason For Visit: PNEUMONIA, A FIB RVR, AUTOIMMUNE HEMOLYTIC ANEMIA Discharge Diagnosis: Pneumonia, a fib rvr, autoimmune hemolytic anemia Condition on Discharge: Serious Activity: Resume your previous activity Non-emergency contact: Primary Care Provider Call non-emergency contact if: you have any medication questions and your symptoms worsen Follow-up/Referrals: Santos Rivers MD [Primary Care Provider] - Diet: Regular Addtl Attending Provider Instructions: Follow up with hematology Pending Studies at Discharge: No Stand-Alone Forms: My [employer] You, Smoking Cessation Medications and DC Order Prescriptions: New cefdinir 300 mg capsule 300 mg PO BID Qty: 10 0RF Continued mycophenolate mofetil 250 mg capsule 500 mg PO BID Qty: 360 3RF folic acid 1 mg tablet 1 mg PO BID Qty: 180 3RF pantoprazole 40 mg tablet,delayed release (DR/EC) 40 mg PO BID Qty: 180 3RF ferrous sulfate 325 mg (65 mg iron) tablet 325 mg PO BID Qty: 60 0RF prednisone 5 mg tablet 5 mg PO DAILY Qty: 90 3RF Hold Instructions: Resume on 02/14/24. resume after completion of taper levothyroxine 125 mcg tablet 125 mcg PO QAM Qty: 90 1RF Rx Instructions: TAKE 1 TABLET BY MOUTH EVERY DAY metoprolol succinate 100 mg tablet extended release 24 hr 100 mg PO HS Qty: 90 1RF ondansetron 4 mg tablet,disintegrating 4 mg PO Q8 PRN (Reason: nausea) Qty: 20 1RF Rx Instructions: Take as needed for nausea allopurinol 100 mg tablet 200 mg PO DAILY Qty: 60 2RF tacrolimus 1 mg capsule 3 mg PO DAILY Rx Instructions: Patient states was advised by transplant team to start taking two 1 mg tablets in the morning and one in the evening. amoxicillin 500 mg capsule 2,000 mg PO DIRECTED PRN (Reason: PRIOR TO DENTAL PROCEDURES) multivitamin Tablet 1 tab PO QAM magnesium oxide 500 mg tablet 500 mg PO HS calcium carbonate 500 mg calcium (1,250 mg) Tablet 500 mg PO QAM acyclovir 400 mg tablet 400 mg PO BID Discharge Orders: Discharge Order (Routine); Ordered 07/30/24 Ordered By: Torrey Clinton Admission Data Admit Date/Time: 07/26/24 11:26 Attending Provider: Torrey Clinton Admit Provider: Ranjeet Frederick Primary Care Provider: Santos Rivers Other Providers: Ranjeet Frederick; Chadd Kohler; Ba Gonsalez Hospital Stay Data Consultations 07/26/24 10:20 ED Decision to Admit Stat 07/26/24 13:11 Consult Cardiology Routine Consult Hematology Routine Pending Results Patient Have Any Pending Studies at Discharge: No Discharge Instructions Given to Patient (Per Discharging Provider) Follow up with hematology Total Time Total Time Spent Total Time Spent (In Minutes): 45 Coding Level of Care Code 84515 INP/OBS DISCH >30 MIN Diagnoses Sepsis due to pneumonia J18.9; A41.9 Atrial fibrillation with rapid ventricular response I48.91 Warm autoimmune hemolytic anemia D59.11 Hypomagnesemia E83.42 Elevated troponin R79.89 Heart failure with preserved ejection fraction I50.30 Acute diarrhea R19.7 Hx of kidney transplant Z94.0
[2024-07-30 10:47] VITALS: BP 115/78; TEMP 98.1
[2024-07-30 14:14] VITALS: PULSE 78; O2SAT 98
== END 2024-07-30 16:29 | disposition home or self-care (01) | DRG 871 ==
LOC: ED 08:33 → SUATTDRO 11:26 → 2E 11:26

== ENCOUNTER 2024-08-22 09:00 | Inpatient (IN) ==
--- NOTE | 2024-08-22 09:34 | Emergency Department Note ---
Impression & Plan Pneumonia, Kidney transplant status, living unrelated donor, Hypomagnesemia, CHF (congestive heart failure), Infection due to human metapneumovirus (hMPV), Rhinovirus infection ED Provider Note NAME: ANGELES MONTAÑO AGE: 63 SEX: M : 1960 ARRIVES VIA: Walk-In INFORMANT: Patient ED PROVIDER(S): Jj Iniguez MD CHIEF COMPLAINT: PLAN: Disposition: MEDICAL DECISION MAKING: The patient is a 63-year-old gentleman with a past medical history of autoimmune hemolytic anemia, FSGS, end-stage renal disease s/p renal transplant in 2009, CKD, heart failure with preserved EF, A-fib not on AC 2/2 AIHA, HTN, HLD who presents to the emergency department via walk-in for evaluation of increased shortness of breath with minimal exertion from baseline over the past several days where he reports feeling much worse yesterday but then felt some improvement after he spontaneously had diuresis with his Lasix but it was at its typical dose. He reports a nonproductive cough. He denies fevers. He reports he feels as though he has a wheeze. He denies nausea, vomiting or diarrhea. He reports he feels as though his weight has remained stable but did notice increased lower extremity edema. On evaluation the patient is in no acute distress, with O2 saturation initially 87% on room air but then improving to the 90s without intervention. He appears mildly hypervolemic. Lungs with wheeze and rhonchi bilaterally. WBC within normal limits with lymphopenia. There is no left shift. H/H is stable at 8.0/25.6. Platelets within normal limits. Chemistry without metabolic acidosis. Creatinine is 1.29 improved from recent values. Magnesium is low at 1.2. LFTs are unremarkable with improved total bilirubin and otherwise normal. Initial high-sensitivity troponin 33.1 with delta high-sensitivity troponin 30.9, stable. BNP is 394 improved from recent hospitalization. Lipase is not elevated. Procalcitonin is not elevated. TSH was normal limits. Respiratory BioFire was performed and was positive for human metapneumovirus and enterovirus/rhinovirus. Chest x-ray demonstrates cardiomegaly with mild interstitial pulmonary edema in addition to left basilar opacity which is suspicious for pneumonia. Given the patient's infiltrate on chest x-ray in the setting of his immunocompromise status/renal transplant history patient agrees plan for admission for further management. Blood culture was obtained and empiric treatment initiated with cefepime and doxycycline. MRSA swab was obtained. Additional treatment with IV Lasix administered. DuoNeb for component of bronchospasm. Case was discussed with Dr. Frederick, [facility] hospitalist, who will evaluate the patient for admission. Further management per admitting team. Triage Nursing notes reviewed and agree them. Prior/external medical records reviewed Vital Signs: reviewed Differential diagnosis: Reactive airway disease, pneumonia, pneumothorax, COPD, CHF, infections, cardiac ischemia, pulmonary embolism, musculoskeletal, gastrointestinal, as well as other pathologies. ER treatment provided: See below. Diagnostics interpreted by me: ECG: Atrial fibrillation, 79 bpm, right bundle branch block, no overt ST elevation or depression, QTc 527, QRS 154. Similar to prior. Cardiac Monitoring: An order for continuous cardiac monitoring was placed and demonstrated Atrial fibrillation, 79 bpm, no ectopy. Laboratory studies: See below Imaging studies: See below Consultation(s): Case was discussed with Dr. Frederick, [facility] hospitalist, who will evaluate the patient for admission. HPI: The patient is a 63-year-old gentleman with a past medical history of autoimmune hemolytic anemia, FSGS, end-stage renal disease s/p renal transplant in 2010, CKD, heart failure with preserved EF, A-fib not on AC 2/2 AIHA, HTN, HLD who presents to the emergency department via walk-in for evaluation of increased shortness of breath with minimal exertion from baseline over the past several days where he reports feeling much worse yesterday but then felt some improvement after he spontaneously had diuresis with his Lasix but it was at its typical dose. He reports a nonproductive cough. He denies fevers. He reports he feels as though he has a wheeze. He denies nausea, vomiting or diarrhea. He reports he feels as though his weight has remained stable but did notice increased lower extremity edema. ROS: See above HPI for pertinent positives & negatives. A total of 10 systems reviewed and were otherwise negative. VITALS:See Below PHYSICAL EXAMINATION: GENERAL: Awake, alert, fatigued-appearing, in no distress HENT: Normocephalic, atraumatic. Oropharynx unremarkable. EYES: Normal conjunctiva. Sclera non-icteric. NECK: Supple. No nuchal rigidity. FROM. No JVD. RESPIRATORY: Wheeze and rhonchi bilaterally. CARDIAC: Regular rate, irregular rhythm. Extremities warm and well perfused. Pulses equal. ABDOMEN: Soft, non-distended. No tenderness to palpation. No rebound or guarding. No masses. MUSCULOSKELETAL: Chest examination reveals no tenderness. The back is symmetrical on inspection without obvious abnormality. There is no CVA tenderness to palpation. No joint edema. LOWER EXTREMITIES: Calves are equal size bilaterally and non-tender. 1+ BLE edema. No discoloration. NEURO: Normal sensorium. No sensory or motor deficits noted. SKIN: No rash or jaundice noted. Jj Iniguez MD Past Med/Surg History Problem List (Updated 08/22/24 @ 20:33 by Jj Iniguez MD) Rhinovirus infection (Acute) Infection due to human metapneumovirus (hMPV) (Acute) CHF (congestive heart failure) (Acute) Hypomagnesemia (Acute) Pneumonia (Acute) CKD (chronic kidney disease) Adrenal insufficiency Elevated troponin Hypomagnesemia Bilateral leg edema Warm autoimmune hemolytic anemia Atrial fibrillation with rapid ventricular response Sepsis due to pneumonia Kidney transplant status, living unrelated donor (Acute) Acute exacerbation of CHF (congestive heart failure) (Acute) Acute kidney injury Status post right hip replacement LVH (left ventricular hypertrophy) Coronary artery calcification 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 Status post kidney transplant On prednisone therapy Ground glass opacity present on imaging of lung Rosales's esophagus with esophagitis Macrocytic anemia Erosive esophagitis EGD 08/2023 Abnormal findings on diagnostic imaging of other abdominal regions, including retroperitoneum Arthritis of right hip Atrial fibrillation controlled w/ metoprolol Brigidaquchinedu richey [place]'ed during Nov hospital visit due to anemia issues, no pacer Hip arthritis Adrenal nodule GA PCP considering adrenal protocol CT or MRI for characterization Herpetic maria Aneurysm Abnormal LFTs Pneumonia Acute non-ST elevation myocardial infarction (NSTEMI) (Acute) 01/31/23 Megaloblastic anemia (Acute) Cerumen impaction Retroperitoneal mass lesion biopsy negative for malignancy 05/2022 per transplant record 03/17/23 Hypotension Diarrhea Adenomatous polyps Vitamin D deficiency Chronic kidney disease, stage 3a COVID-19 (Acute) Acute respiratory failure with hypoxemia (Acute) 07/29/20 Anemia (Chronic) hospitalized at [facility] 07/2023, received blood transfusion FSGS (focal segmental glomerulosclerosis) (Chronic) s/p R renal transplant 2010 History of esophageal reflux (Chronic) controlled, stable per pt Hyperlipidemia (Chronic) Hypothyroidism (Chronic) Obesity (Chronic) Osteoporosis (Chronic) Proteinuria (Chronic) Medical History Diarrhea Hypocalcemia Weakness Anemia Elevated troponin Atrial fibrillation with rapid ventricular response Hypomagnesemia Hypotension Acute diarrhea Heart failure with preserved ejection fraction Elevated troponin Hypomagnesemia Encounter for pre-operative examination History of non-ST elevation myocardial infarction (NSTEMI) Osteoporosis Hypothyroidism Hyperlipidemia Hx of esophageal reflux FSGS (focal segmental glomerulosclerosis) Abdominal aortic aneurysm CKD (chronic kidney disease) History of colon polyps Retroperitoneal mass Pneumonia Adrenal nodule Arthritis On prednisone therapy Atrial fibrillation Rosales's esophagus with esophagitis Atrial flutter Autoimmune hemolytic anemia Sleep apnea Thoracic ascending aortic aneurysm Hypertension Limb alert care status History of blood transfusion Hx of herpetic maria History of COVID-19 History of renal dialysis History of CVA (cerebrovascular accident) Surgical History Hx of kidney transplant History of esophagogastroduodenoscopy (EGD) Hx of cholecystectomy Hx of exploratory laparotomy History of colonoscopy Family History Grandmother (Maternal) Alzheimer disease Mother Depression Denies family history of Ovarian cancer Prostate cancer Diabetes Heart disease Myocardial infarction Breast cancer Lung cancer COPD (chronic obstructive pulmonary disease) Colorectal cancer Hypertension Stroke Social History Smoking Status: Never smoker Second Hand Exposure: No; Do You Dip or Chew Tobacco: No; Hx Alcohol Use: No Hx Substance Use: No 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: Estonian Communication Ability: Effective Visual Impairment: No Limitations Hearing Ability: Normal Tile Sprayer Required: No Beliefs That Will Affect Care: None marital status: Current Living Situation: Spouse current occupational status: employed current occupation: [employer] How many Children do You have: 1 Feels Safe at Home: Yes Childhood Exposure to Second-Hand Smoke: No Dental Care, Regularly: Yes Seatbelt Use: sometimes Sunscreen Use: No Assistive Devices: None Allergies Allergies Allergy/AdvReac Type Severity Reaction Status Date / Time clopidogrel [From Plavix] Allergy Unknown Unknown Verified 08/09/24 13:01 Szvnxjk-[id number] Reductase AdvReac Intermediate myalgias Verified 08/09/24 13:01 Inhibitor [Hfjmbup-Uod-Kkh Reductase Inhibitor] Home Meds Home Medications Medication Instructions Recorded Confirmed amoxicillin 500 mg capsule 2,000 mg PO DIRECTED PRN PRIOR 07/29/20 08/22/24 TO DENTAL PROCEDURES multivitamin 1 tab PO QAM 08/02/21 08/22/24 calcium carbonate 500 mg PO QAM 01/21/24 08/22/24 tacrolimus 1 mg capsule, 3 mg PO UD 04/16/24 08/22/24 immediate-release acyclovir 400 mg tablet 400 mg PO BID 05/07/24 08/22/24 magnesium oxide 500 mg PO BID 08/09/24 08/22/24 Previous Rx's Medication Instructions Recorded mycophenolate mofetil 250 mg 500 mg (2 x 250 mg) PO BID #360 05/29/20 capsule caps folic acid 1 mg tablet 1 mg PO BID #180 tabs 09/20/23 pantoprazole 40 mg tablet,delayed 40 mg PO BID #180 tabs 12/06/23 release ferrous sulfate 325 mg (65 mg 325 mg PO BID #60 tabs 02/05/24 iron) tablet prednisone 5 mg tablet 5 mg PO DAILY #90 tabs 02/27/24 levothyroxine 125 mcg tablet 125 mcg PO QAM #90 tabs 03/04/24 metoprolol succinate 100 mg 100 mg PO HS #90 tabs 04/22/24 tablet,extended release 24 hr ondansetron 4 mg disintegrating 4 mg PO Q8 PRN nausea #20 tabs 05/22/24 tablet allopurinol 100 mg tablet 200 mg (2 x 100 mg) PO DAILY #60 06/03/24 tabs furosemide 20 mg tablet (Lasix) 20 mg PO DAILY #30 tabs 08/09/24 Results & Data (ED) Vital Signs Vital Signs - 24 hr 08/22/24 09:02 08/22/24 09:18 08/22/24 09:30 Temperature 36.5 C Temperature Source Skin Pulse Rate 78 82 Pulse Rate from SpO2 Sensor Pulse Rhythm Regular Pulse Strength Normal Respiratory Rate 20 Respiratory Effort / Characteristics Non-Labored Spontaneous Respiratory Depth Normal Respiratory Pattern Regular Blood Pressure 123/69 127/92 Blood Pressure Mean 87 105 Pulse Oximetry Oxygen Delivery Method Room Air Sepsis Recent Fever Within 48 Hours No Sepsis New/Unexplained Change in Mental Status N/A Sepsis Action Taken by Nursing No Action Required 08/22/24 09:30 08/22/24 09:33 08/22/24 09:34 Temperature Temperature Source Pulse Rate 73 Pulse Rate from SpO2 Sensor 77 Pulse Rhythm Pulse Strength Respiratory Rate 21 Respiratory Effort / Characteristics Non-Labored Spontaneous Respiratory Depth Normal Respiratory Pattern Regular Blood Pressure 127/92 Blood Pressure Mean 105 Pulse Oximetry 87 L Oxygen Delivery Method Sepsis Recent Fever Within 48 Hours Sepsis New/Unexplained Change in Mental Status Sepsis Action Taken by Nursing 08/22/24 09:34 08/22/24 09:34 08/22/24 09:34 Temperature Temperature Source Pulse Rate Pulse Rate from SpO2 Sensor Pulse Rhythm Pulse Strength Respiratory Rate Respiratory Effort / Characteristics Non-Labored Spontaneous Respiratory Depth Normal Respiratory Pattern Blood Pressure Blood Pressure Mean Pulse Oximetry Oxygen Delivery Method Room Air Room Air Sepsis Recent Fever Within 48 Hours Sepsis New/Unexplained Change in Mental Status Sepsis Action Taken by Nursing 08/22/24 09:42 08/22/24 09:51 08/22/24 10:12 Temperature Temperature Source Pulse Rate 78 99 H 73 Pulse Rate from SpO2 Sensor 78 68 76 Pulse Rhythm Pulse Strength Respiratory Rate 21 21 15 Respiratory Effort / Characteristics Respiratory Depth Respiratory Pattern Blood Pressure Blood Pressure Mean Pulse Oximetry 100 94 92 Oxygen Delivery Method Sepsis Recent Fever Within 48 Hours Sepsis New/Unexplained Change in Mental Status Sepsis Action Taken by Nursing 08/22/24 10:24 08/22/24 10:48 08/22/24 11:00 Temperature Temperature Source Pulse Rate 76 74 Pulse Rate from SpO2 Sensor 73 74 Pulse Rhythm Pulse Strength Respiratory Rate 18 15 Respiratory Effort / Characteristics Respiratory Depth Respiratory Pattern Blood Pressure 132/86 Blood Pressure Mean 105 Pulse Oximetry 99 94 Oxygen Delivery Method Sepsis Recent Fever Within 48 Hours Sepsis New/Unexplained Change in Mental Status Sepsis Action Taken by Nursing 08/22/24 11:00 08/22/24 11:18 08/22/24 11:21 Temperature Temperature Source Pulse Rate 71 77 77 Pulse Rate from SpO2 Sensor 71 76 75 Pulse Rhythm Pulse Strength Respiratory Rate 12 16 13 Respiratory Effort / Characteristics Respiratory Depth Respiratory Pattern Blood Pressure Blood Pressure Mean Pulse Oximetry 95 90 Oxygen Delivery Method Sepsis Recent Fever Within 48 Hours Sepsis New/Unexplained Change in Mental Status Sepsis Action Taken by Nursing 08/22/24 11:30 08/22/24 11:30 08/22/24 11:30 Temperature Temperature Source Pulse Rate 73 Pulse Rate from SpO2 Sensor 73 Pulse Rhythm Pulse Strength Respiratory Rate 17 Respiratory Effort / Characteristics Respiratory Depth Respiratory Pattern Blood Pressure 131/98 131/98 Blood Pressure Mean 112 112 Pulse Oximetry 92 Oxygen Delivery Method Sepsis Recent Fever Within 48 Hours Sepsis New/Unexplained Change in Mental Status Sepsis Action Taken by Nursing 08/22/24 11:45 08/22/24 11:57 08/22/24 12:15 Temperature Temperature Source Pulse Rate 78 72 Pulse Rate from SpO2 Sensor 77 75 Pulse Rhythm Pulse Strength Respiratory Rate 15 15 14 Respiratory Effort / Characteristics Non-Labored Spontaneous Respiratory Depth Normal Respiratory Pattern Blood Pressure Blood Pressure Mean Pulse Oximetry 95 97 Oxygen Delivery Method Sepsis Recent Fever Within 48 Hours Sepsis New/Unexplained Change in Mental Status Sepsis Action Taken by Nursing 08/22/24 12:24 08/22/24 12:30 08/22/24 12:30 Temperature Temperature Source Pulse Rate 77 Pulse Rate from SpO2 Sensor 76 Pulse Rhythm Pulse Strength Respiratory Rate 15 Respiratory Effort / Characteristics Respiratory Depth Respiratory Pattern Blood Pressure 134/100 134/100 Blood Pressure Mean 107 107 Pulse Oximetry 97 Oxygen Delivery Method Sepsis Recent Fever Within 48 Hours Sepsis New/Unexplained Change in Mental Status Sepsis Action Taken by Nursing 08/22/24 12:30 08/22/24 12:30 08/22/24 12:30 Temperature Temperature Source Pulse Rate 71 Pulse Rate from SpO2 Sensor 69 Pulse Rhythm Pulse Strength Respiratory Rate 14 Respiratory Effort / Characteristics Respiratory Depth Respiratory Pattern Blood Pressure 134/100 134/100 Blood Pressure Mean 107 107 Pulse Oximetry 97 Oxygen Delivery Method Sepsis Recent Fever Within 48 Hours Sepsis New/Unexplained Change in Mental Status Sepsis Action Taken by Nursing 08/22/24 12:42 08/22/24 13:00 08/22/24 13:03 Temperature Temperature Source Pulse Rate 74 74 Pulse Rate from SpO2 Sensor 71 77 Pulse Rhythm Pulse Strength Respiratory Rate 16 12 Respiratory Effort / Characteristics Respiratory Depth Respiratory Pattern Blood Pressure 124/94 Blood Pressure Mean 102 Pulse Oximetry 97 93 Oxygen Delivery Method Sepsis Recent Fever Within 48 Hours Sepsis New/Unexplained Change in Mental Status Sepsis Action Taken by Nursing 08/22/24 13:12 08/22/24 13:21 08/22/24 13:24 Temperature Temperature Source Pulse Rate 80 79 70 Pulse Rate from SpO2 Sensor 76 80 68 Pulse Rhythm Pulse Strength Respiratory Rate 21 14 18 Respiratory Effort / Characteristics Respiratory Depth Respiratory Pattern Blood Pressure Blood Pressure Mean Pulse Oximetry 93 99 97 Oxygen Delivery Method Sepsis Recent Fever Within 48 Hours Sepsis New/Unexplained Change in Mental Status Sepsis Action Taken by Nursing 08/22/24 13:30 08/22/24 13:30 Temperature Temperature Source Pulse Rate Pulse Rate from SpO2 Sensor Pulse Rhythm Pulse Strength Respiratory Rate Respiratory Effort / Characteristics Respiratory Depth Respiratory Pattern Blood Pressure 123/87 123/87 Blood Pressure Mean 100 100 Pulse Oximetry Oxygen Delivery Method Sepsis Recent Fever Within 48 Hours Sepsis New/Unexplained Change in Mental Status Sepsis Action Taken by Nursing Laboratory Data Attestation: I reviewed the patient's lab results. 08/22/24 09:27 08/22/24 10:24 Lab Results 08/22/24 08/22/24 08/22/24 Range/Units 09:27 09:30 09:33 WBC 5.52 (4.8-10.8) K/ul RBC 2.12 L (4.70-6.10) M/uL Hgb 8.0 L (14.0-18.0) g/dl Hct 25.6 L (42.0-52.0) % MCV 120.8 H (80.0-100.0) fL MCH 37.7 H (25.0-34.0) pg MCHC 31.3 L (32.0-36.0) g/dL RDW Std Deviation 83.5 H (36.4-46.3) fL RDW Coeff of Jaye 19.0 H (11.5-14.5) % Plt Count 133 (130-400) K/uL MPV 10.7 (9.4-12.4) fL Immature Gran % (Auto) 0.5 % Neut % (Auto) 80.5 % Lymph % (Auto) 7.8 % Cass % (Auto) 7.1 % Eos % (Auto) 3.6 % Baso % (Auto) 0.5 % Neut # (Auto) 4.44 (1.40-6.50) K/uL Lymph # (Auto) 0.43 L (1.20-3.40) K/uL Cass # (Auto) 0.39 (0.11-0.59) K/uL Eos # (Auto) 0.20 (0.00-0.50) K/uL Baso # (Auto) 0.03 (0.00-0.20) K/uL Immature Gran # (Auto) 0.03 (0.01-0.20) K/uL Polychromasia 1+ Macrocytosis Present PT Cancelled INR Cancelled Sodium Cancelled Potassium Cancelled Chloride Cancelled Carbon Dioxide Cancelled Anion Gap Cancelled BUN Cancelled Creatinine Cancelled Est Cr Clr Drug Dosing Cancelled eGFR Cancelled BUN/Creatinine Ratio Cancelled Glucose Cancelled Calcium Cancelled Magnesium Cancelled Total Bilirubin Cancelled AST Cancelled ALT Cancelled Alkaline Phosphatase Cancelled Troponin I High Sens 34.3 H (0-20) pg/ml B-Natriuretic Peptide 394 H (0-100) pg/ml Total Protein Cancelled Albumin Cancelled Globulin Cancelled Albumin/Globulin Ratio Cancelled Lipase Cancelled Procalcitonin Cancelled TSH Cancelled Random Cortisol Cancelled Adenovirus (PCR) Not Detected (NotDetected) B. pertussis DNA (PCR) Not Detected (NotDetected) B.parapertussis DNA PCR Not Detected (NotDetected) C. pneumoniae DNA (PCR) Not Detected (NotDetected) Coronavirus OC43 (PCR) Not Detected (NotDetected) Coronavirus HKU1 (PCR) Not Detected (NotDetected) Coronavirus 229E (PCR) Not Detected (NotDetected) SARS-CoV-2 (PCR) Not Detected (NotDetected) Coronavirus NL63 (PCR) Not Detected (NotDetected) Human Metapneumovir PCR DETECTED A (NotDetected) Influenza Type A (PCR) Not Detected (NotDetected) Influenza Type B (PCR) Not Detected (NotDetected) M. pneumoniae (PCR) Not Detected (NotDetected) Parainfluenza 1 (PCR) Not Detected (NotDetected) Parainfluenza 2 (PCR) Not Detected (NotDetected) Parainfluenza 3 (PCR) Not Detected (NotDetected) Parainfluenza 4 (PCR) Not Detected (NotDetected) RSV (PCR) Not Detected (NotDetected) Entero/Rhino (PCR) DETECTED A (NotDetected) 08/22/24 08/22/24 Range/Units 10:24 11:30 WBC (4.8-10.8) K/ul RBC (4.70-6.10) M/uL Hgb (14.0-18.0) g/dl Hct (42.0-52.0) % MCV (80.0-100.0) fL MCH (25.0-34.0) pg MCHC (32.0-36.0) g/dL RDW Std Deviation (36.4-46.3) fL RDW Coeff of Jaye (11.5-14.5) % Plt Count (130-400) K/uL MPV (9.4-12.4) fL Immature Gran % (Auto) % Neut % (Auto) % Lymph % (Auto) % Cass % (Auto) % Eos % (Auto) % Baso % (Auto) % Neut # (Auto) (1.40-6.50) K/uL Lymph # (Auto) (1.20-3.40) K/uL Cass # (Auto) (0.11-0.59) K/uL Eos # (Auto) (0.00-0.50) K/uL Baso # (Auto) (0.00-0.20) K/uL Immature Gran # (Auto) (0.01-0.20) K/uL Polychromasia Macrocytosis PT 12.9 H INR 1.2 H Sodium 138 Potassium 3.9 Chloride 107 Carbon Dioxide 21 Anion Gap 10 BUN 34 H Creatinine 1.29 Est Cr Clr Drug Dosing 69.4 eGFR 62.30 BUN/Creatinine Ratio 26.4 H Glucose 80 Calcium 8.3 L Magnesium 1.2 L Total Bilirubin 1.2 H AST 24 ALT 9 Alkaline Phosphatase 93 Troponin I High Sens 33.1 H (0-20) pg/ml B-Natriuretic Peptide (0-100) pg/ml Total Protein 7.2 Albumin 3.1 L Globulin 4.1 H Albumin/Globulin Ratio 0.8 L Lipase 76 Procalcitonin 0.14 TSH 2.634 Random Cortisol 2.84 Adenovirus (PCR) (NotDetected) B. pertussis DNA (PCR) (NotDetected) B.parapertussis DNA PCR (NotDetected) C. pneumoniae DNA (PCR) (NotDetected) Coronavirus OC43 (PCR) (NotDetected) Coronavirus HKU1 (PCR) (NotDetected) Coronavirus 229E (PCR) (NotDetected) SARS-CoV-2 (PCR) (NotDetected) Coronavirus NL63 (PCR) (NotDetected) Human Metapneumovir PCR (NotDetected) Influenza Type A (PCR) (NotDetected) Influenza Type B (PCR) (NotDetected) M. pneumoniae (PCR) (NotDetected) Parainfluenza 1 (PCR) (NotDetected) Parainfluenza 2 (PCR) (NotDetected) Parainfluenza 3 (PCR) (NotDetected) Parainfluenza 4 (PCR) (NotDetected) RSV (PCR) (NotDetected) Entero/Rhino (PCR) (NotDetected) Administered Medications Discontinued Medications Albuterol (Albut/Ipratrop 3mg/0.5mg Neb 3 Ml Vial) 3 ml NEB NOW STA; Protocol Stop: 08/22/24 09:35 Last Admin: 08/22/24 09:40 Dose: 3 ml Documented By: VIGRIL Furosemide (Furosemide Inj 20 Mg/2 Ml Vial) 20 mg IV ONE ONE Stop: 08/22/24 12:17 Last Admin: 08/22/24 13:06 Dose: 20 mg Documented By: VIRGIL Cefepime HCl (Maxipime 2000mg) 2,000 mg in 20 mls @ 5 mls/min IV NOW STA; Protocol Stop: 08/22/24 12:19 Last Admin: 08/22/24 13:07 Dose: 5 mls/min Documented By: VIRGIL Doxycycline Hyclate 100 mg/ (Dextrose) 100 mls @ 50 mls/hr IV NOW STA Stop: 08/22/24 14:15 Last Infusion: 08/22/24 16:45 Dose: Infused Documented By: Admin: 08/22/24 14:13 Dose: 50 mls/hr Documented By: VIRGIL Magnesium Sulfate/Dextrose (Magnesium Sulfate / D5w) 1 gm in 100 mls @ 50 mls/hr IV Q2H [facility] Stop: 08/22/24 19:59 Last Admin: 08/22/24 19:07 Dose: 50 mls/hr Documented By: Infusion: 08/22/24 19:05 Dose: Infused Documented By: Admin: 08/22/24 16:48 Dose: 50 mls/hr Documented By: Infusion: 08/22/24 16:47 Dose: Infused Documented By: Admin: 08/22/24 14:47 Dose: 50 mls/hr Documented By: VIRGIL Hydrocortisone Sodium (Succinate 25 mg/ Syringe) 0.5 mls @ 4 mls/min IV ONE ONE Stop: 08/22/24 14:46 Last Admin: 08/22/24 15:05 Dose: 4 mls/min Documented By: DOUGLAS Imaging Data Radiologist's Impression: Chest X-Ray 08/22/24 09:12 XR chest 1V portable CLINICAL HISTORY: Chest pain, nonspecific COMPARISON STUDY: Chest CT June 27, 2024. Chest radiograph July 26, 2024. FINDINGS: Cardiomegaly is unchanged. There is no pneumothorax or pleural effusion. Left basilar airspace opacity is present. There is mild interstitial thickening. IMPRESSION: 1. Left basilar opacity which may represent pneumonia. Post treatment radiographs to ensure resolution are recommended. 2. Cardiomegaly with mild interstitial pulmonary edema. ACT 112: Negative or not required by law. Electronically signed by: Martín Grossman M.D. 08/22/2024 10:12 AM Discharge Plan Visit Data Chief Complaint: Shortness of Breath/Dyspnea Stated Complaint: SOB, WHEEZING ED Provider: Jj Iniguez Discharge Problem: Pneumonia, Kidney transplant status, living unrelated donor, Hypomagnesemia, CHF (congestive heart failure), Infection due to human metapneumovirus (hMPV), Rhinovirus infection Patient Disposition: Admitted As Inpatient Discharge Instructions Interventions: ED Discharge Assessment Last Done: 08/22/24 18:22 Discharge Problem: Pneumonia Qualifiers: Pneumonia type: due to unspecified organism Laterality: left Lung location: l ower lobe of lung Qualified Code(s): J18.9 - Pneumonia, unspecified organism CHF (congestive heart failure) Qualifiers: Heart failure type: unspecified Heart failure chronicity: acute on chronic Q ualified Code(s): I50.9 - Heart failure, unspecified
[2024-08-22] MEDS: ALBUT/IPRATROP 3MG/0.5MG NEB 3 ML VIAL NEB STA (09:40)
[2024-08-22 09:57] LABS: Hematocrit (blood only) 25.6 % (42.0-52.0); Mean Corpuscular Hemoglobin 37.7 pg (25.0-34.0); Mean Corpuscular Hgb Conc 31.3 g/dL (32.0-36.0); Mean Corpuscular Volume 120.8 fL (80.0-100.0); Mean Platelet Volume 10.7 fL (9.4-12.4); Platelet Count 133 K/uL (130-400); RDW Standard Deviation 83.5 fL (36.4-46.3); Red Blood Count 2.12 M/uL (4.70-6.10); White Blood Count 5.52 K/ul (4.8-10.8)
--- NOTE | 2024-08-22 10:13 | XRay Report ---
XR chest 1V portable CLINICAL HISTORY: Chest pain, nonspecific COMPARISON STUDY: Chest CT June 27, 2024. Chest radiograph July 26, 2024. FINDINGS: Cardiomegaly is unchanged. There is no pneumothorax or pleural effusion. Left basilar airsp ramin opacity is present. There is mild interstitial thickening. IMPRESSION: 1. Left basilar opacity which may represent pneumonia. Post treatment radiographs to ensure resolutio n are recommended. 2. Cardiomegaly with mild interstitial pulmonary edema. ACT 112: Negative or not required by law. Electronically signed by: Martín Grossman M.D. 08/22/2024 10:12 AM
[2024-08-22 10:26] LABS: Basophils # (auto) 0.03 K/uL (0.00-0.20); Basophils % (auto) 0.5 %; Eosinophils % (auto) 3.6 %; Immature Granulocytes # (auto) 0.03 K/uL (0.01-0.20); Immature Granulocytes % (auto) 0.5 %; Lymphocytes # (auto) 0.43 K/uL (1.20-3.40); Lymphocytes % (auto) 7.8 %; Macrocytosis Present; Monocytes # (auto) 0.39 K/uL (0.11-0.59); Monocytes % (auto) 7.1 %; Neutrophils # (auto) 4.44 K/uL (1.40-6.50); Neutrophils % (auto) 80.5 %; Polychromasia 1+
[2024-08-22 10:41] LABS: Adenovirus PCR Not Detected (NotDetected); Bordetella parapertussis PCR Not Detected (NotDetected); Bordetella pertussis PCR Not Detected (NotDetected); Chlamydia pneumoniae PCR Not Detected (NotDetected); Coronavirus 229E PCR Not Detected (NotDetected); Coronavirus CoV-2 (COVID19)PCR Not Detected (NotDetected); Coronavirus HKU1 PCR Not Detected (NotDetected); Coronavirus NL63 PCR Not Detected (NotDetected); Coronavirus OC43PCR Not Detected (NotDetected); Human Metapneumovirus PCR DETECTED (NotDetected); Influenza A PCR Not Detected (NotDetected); Influenza B PCR Not Detected (NotDetected); Mycoplasma pneumoniae PCR Not Detected (NotDetected); Parainfluenza Virus 1 PCR Not Detected (NotDetected); Parainfluenza Virus 2 PCR Not Detected (NotDetected); Parainfluenza Virus 3 PCR Not Detected (NotDetected); Parainfluenza Virus 4 PCR Not Detected (NotDetected); Respiratory Syncytial VirusPCR Not Detected (NotDetected); Rhinovirus/Enterovirus PCR DETECTED (NotDetected)
[2024-08-22 11:06] LABS: INR 1.2 (0.9-1.1); Prothrombin Time 12.9 Seconds (9.0-12.0)
[2024-08-22 11:10] LABS: Albumin Globulin Ratio 0.8 (0.9-2); Albumin Level 3.1 gm/dl (3.4-5.0); BUN Creatinine Ratio 26.4 (10-20); Bilirubin,Total 1.2 mg/dl (0.2-1.0); Calcium 8.3 mg/dl (8.6-10.3); Creatinine Clr Calc Pharmacy 69.4 ml/min; Globulin 4.1 gm/dl (2.5-4.0); Magnesium 1.2 mg/dl (1.7-2.4); Potassium 3.9 mmol/L (3.5-5.1); Total Protein 7.2 gm/dl (6.0-8.3)
[2024-08-22 11:21] LABS: Thyroid Stimulating Hormone 2.634 uIu/ml (0.300-4.500)
--- NOTE | 2024-08-22 12:48 | History & Physical Report ---
Date of Service August 22, 2024 Assessment & Plan (1) Pneumonia: Plan: Patient presents with dyspnea on exertion, cough, and clear sputum production x 2-3 days Was discharged from hospital 07/30 with sepsis due to pneumonia CXR showing left basilar opacity which may represent pneumonia along with cardiomegaly with mild interstitial pulmonary edema - Tested positive for human metapneumovirus and rhinovirus - VSS, no leukocytosis, no left shift, Pro-Carlos negative ED course: Doxy, cefepime, Lasix 20 Mg IV, DuoNeb - With mild symptoms and hemodynamic stability, will defer antibiotic use at this time. If leukocytosis develops or becomes hemodynamically unstable can consider addition of antibiotics. - Will stress dose steroids hydrocortisone 25 Mg every 6 IV - incentive spirometry - Blood and sputum cultures ordered- contact precautions (2) Acute exacerbation of CHF (congestive heart failure): Plan: questionable acute exacerbation, BMP improved from baseline - Last echocardiogram on 07/14 showed normal left ventricular systolic function, EF 55 to 60%, moderate LVH, RV mildly dilated, LA moderately dilated, RA severely dilated, mild aortic regurg, mild mitral regurg - BNP 834 -> 394 - CXR showed cardiomegaly and mild pulmonary edema - continue Lasix 20 mg IV daily - Heart healthy, low-sodium, fluid restricted diet - Strict I&O monitoring - Daily weights - SCDs, alexander stockings, promote leg elevation (3) Hypomagnesemia: Plan: 1.2 on admission -> 3G IV ordered Continue daily twice daily supplement Trend mag (4) Elevated troponin: Plan: Suspect secondary to demand with above 34.3 -> 33.1 EKG without ischemic changes, A-fib with competing junctional pacemaker - Monitor on tele and trend trop (5) Warm autoimmune hemolytic anemia: Plan: History of, follows with hematology - IVIG 08/20 stable - Hgb 8.0, total bilirubin 1.2 - random cortisol low for chronic steroid use, 2.84 - stress dose steroids, hydrocortisone 25 Mg IV every 6 - if patient becomes hypotensive give 200 mg IV load and increase Q6H to 50- 100 mg - continue acyclovir, iron supplement, and folic acid - daily CBC and CMP (6) Atrial fibrillation: Plan: known history of A-fib not anticoagulated - A-fib rate controlled on previous admission, DOAC was deferred due to history of acute anemia, has been tolerant of Xarelto in the past - EKG on admission showed A-fib with competing junctional pacemaker, HR 79 - TSH WNL - magnesium repletion as above - continue home metoprolol 100 at bedtime - monitor on Telemetry (7) CKD (chronic kidney disease): Plan: history of CKD stage III AA, focal segmental glomerulosclerosis, s/p kidney transplant - stable - Continue tacrolimus and mycophenolate - avoid nephrotoxic agents Plan Chronic stable diagnoses: gout - continue allopurinol hypothyroidism - continue levothyroxine GERD - continue PPI BID VTE ppx: SCDs and teds; defer pharmacologic anticoagulation given anemia Diet: heart healthy, low-sodium, and fluid restricted 2000 mL diet Code status: full Dispo: med/tele; closely monitor with pneumonia and elevated troponin - anticipate dc in AM 08/23/24 if continues to improve Admission and Anticipated Discharge Date Admission Date: 08/22/24 History of Present Illness Chief Complaint: Dyspnea Primary Care Provider: Santos Rivers MD Patient is a 63-year-old with a past medical history of AIHA, renal transplant, heart failure preserved ejection fraction, A-fib, gout. He was recently discharged from the hospital 07/30 due to sepsis from pneumonia and A-fib with RVR. He presents today due to dyspnea. patient stated that he was doing better after his recent discharge, a few days ago he began with dyspnea on exertion, cough with clear sputum production, and bilateral LE edema. He also stated that he had 1 episode of loose stool this morning. He stated that he was recently started on Lasix 20 mg last week with nephrology, he feels he has been peeing a lot but it still may not be enough. He has had no sick contacts that he knows of. He also stated that he had IVIG 2 days ago with hematology, he started feeling worse after that, began feeling better this morning. He does endorse chills overnight. Patient denies fever, headache, dizziness, lightheadedness, rhinorrhea, sore throat, orthopnea, chest pain, abdominal pain, nausea, vomiting, dysuria, hematuria, numbness, tingling. He has been compliant with his home medications. Allergies Allergy/AdvReac Type Severity Reaction Status Date / Time clopidogrel [From Plavix] Allergy Unknown Unknown Verified 08/09/24 13:01 Yfxagfc-[id number]-PiJ Reductase AdvReac Intermediate myalgias Verified 08/09/24 13:01 Inhibitor [Flmqrua-Ocp-Pny Reductase Inhibitor] Home Medications Medication Instructions Recorded Confirmed Type mycophenolate mofetil 250 mg 500 mg (2 x 250 mg) PO BID #360 05/29/20 08/22/24 Rx capsule caps amoxicillin 500 mg capsule 2,000 mg PO DIRECTED PRN PRIOR 07/29/20 08/22/24 History TO DENTAL PROCEDURES multivitamin 1 tab PO QAM 08/02/21 08/22/24 History folic acid 1 mg tablet 1 mg PO BID #180 tabs 09/20/23 08/22/24 Rx pantoprazole 40 mg tablet,delayed 40 mg PO BID #180 tabs 12/06/23 08/22/24 Rx release calcium carbonate 500 mg PO QAM 01/21/24 08/22/24 History ferrous sulfate 325 mg (65 mg 325 mg PO BID #60 tabs 02/05/24 08/22/24 Rx iron) tablet prednisone 5 mg tablet 5 mg PO DAILY #90 tabs 02/27/24 08/22/24 Rx levothyroxine 125 mcg tablet 125 mcg PO QAM #90 tabs 03/04/24 08/22/24 Rx tacrolimus 1 mg capsule, 3 mg PO UD 04/16/24 08/22/24 History immediate-release metoprolol succinate 100 mg 100 mg PO HS #90 tabs 04/22/24 08/22/24 Rx tablet,extended release 24 hr acyclovir 400 mg tablet 400 mg PO BID 05/07/24 08/22/24 History ondansetron 4 mg disintegrating 4 mg PO Q8 PRN nausea #20 tabs 05/22/24 08/22/24 Rx tablet allopurinol 100 mg tablet 200 mg (2 x 100 mg) PO DAILY #60 06/03/24 08/22/24 Rx tabs furosemide 20 mg tablet (Lasix) 20 mg PO DAILY #30 tabs 08/09/24 08/22/24 Rx magnesium oxide 500 mg PO BID 08/09/24 08/22/24 History Past Med/Surg History Problem List (Updated 08/22/24 @ 13:59 by Ella Bolivar PA-C) CKD (chronic kidney disease) Adrenal insufficiency Elevated troponin Hypomagnesemia Bilateral leg edema Warm autoimmune hemolytic anemia Atrial fibrillation with rapid ventricular response Sepsis due to pneumonia Kidney transplant status, living unrelated donor Acute exacerbation of CHF (congestive heart failure) (Acute) Acute kidney injury Status post right hip replacement LVH (left ventricular hypertrophy) Coronary artery calcification 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 Status post kidney transplant On prednisone therapy Ground glass opacity present on imaging of lung Rosales's esophagus with esophagitis Macrocytic anemia Erosive esophagitis EGD 08/2023 Abnormal findings on diagnostic imaging of other abdominal regions, including retroperitoneum Arthritis of right hip Atrial fibrillation controlled w/ metoprolol Eliquis recently DC'ed during Nov hospital visit due to anemia issues, no pacer Hip arthritis Adrenal nodule CT PCP considering adrenal protocol CT or MRI for characterization Herpetic maria Aneurysm Abnormal LFTs Pneumonia Acute non-ST elevation myocardial infarction (NSTEMI) (Acute) 01/31/23 Megaloblastic anemia (Acute) Cerumen impaction Retroperitoneal mass lesion biopsy negative for malignancy 05/2022 per transplant record 03/17/23 Hypotension Diarrhea Adenomatous polyps Vitamin D deficiency Chronic kidney disease, stage 3a COVID-19 (Acute) Acute respiratory failure with hypoxemia (Acute) 07/29/20 Anemia (Chronic) hospitalized at [facility] 07/2023, received blood transfusion 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 History of esophageal reflux (Chronic) controlled, stable per pt Hyperlipidemia (Chronic) Hypothyroidism (Chronic) Obesity (Chronic) Osteoporosis (Chronic) Proteinuria (Chronic) Medical History Diarrhea Hypocalcemia Weakness Anemia Elevated troponin Atrial fibrillation with rapid ventricular response Hypomagnesemia Hypotension Acute diarrhea Heart failure with preserved ejection fraction Elevated troponin Hypomagnesemia Encounter for pre-operative examination History of non-ST elevation myocardial infarction (NSTEMI) Osteoporosis Hypothyroidism Hyperlipidemia Hx of esophageal reflux FSGS (focal segmental glomerulosclerosis) Abdominal aortic aneurysm CKD (chronic kidney disease) History of colon polyps Retroperitoneal mass Pneumonia Adrenal nodule Arthritis On prednisone therapy Atrial fibrillation Rosales's esophagus with esophagitis Atrial flutter Autoimmune hemolytic anemia Sleep apnea Thoracic ascending aortic aneurysm Hypertension Limb alert care status History of blood transfusion Hx of herpetic maria History of COVID-19 History of renal dialysis History of CVA (cerebrovascular accident) Surgical History Hx of kidney transplant History of esophagogastroduodenoscopy (EGD) Hx of cholecystectomy Hx of exploratory laparotomy History of colonoscopy Family History Grandmother (Maternal) Alzheimer disease Mother Depression Denies family history of Ovarian cancer Prostate cancer Diabetes Heart disease Myocardial infarction Breast cancer Lung cancer COPD (chronic obstructive pulmonary disease) Colorectal cancer Hypertension Stroke Social History Smoking Status: Never smoker Second Hand Exposure: No; Do You Dip or Chew Tobacco: No; Hx Alcohol Use: No Hx Substance Use: No 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: Norwegian Communication Ability: Effective Visual Impairment: No Limitations Hearing Ability: Normal Bar Welder Required: No Beliefs That Will Affect Care: None marital status: Current Living Situation: Spouse current occupational status: employed current occupation: [employer] How many Children do You have: 1 Feels Safe at Home: Yes Childhood Exposure to Second-Hand Smoke: No Dental Care, Regularly: Yes Seatbelt Use: sometimes Sunscreen Use: No Assistive Devices: None Review of Systems Review of Systems: See HPI Physical Exam Physical Exam: The patient is awake, alert and oriented 3, well developed and well nourished, normocephalic and atraumatic, in no acute distress. Non-toxic appearing. HEENT- EOMI, mucous membranes moist. Hearing grossly intact. Heart-normal S1 and S2. No murmurs, rubs or gallops. Lungs-decreased LLL, no respiratory distress, no accessory muscle use. Abdomen-normal bowel sounds and soft. No ascites noted. Non-tender. Extremities- no clubbing, cyanosis. +3 BL pitting edema. Rheumatologic-normal range of motion. Psychiatric-normal affect. Results & Data Results & Data Vital Signs (Past 12 Hours) Vital Signs Temp Pulse Resp BP Pulse Ox O2 Del Method 08/22/24 11:57 15 08/22/24 11:45 78 15 95 08/22/24 11:30 131/98 08/22/24 11:30 131/98 08/22/24 11:30 73 17 92 08/22/24 11:21 77 13 90 08/22/24 11:18 77 16 08/22/24 11:00 71 12 95 08/22/24 11:00 132/86 08/22/24 10:48 74 15 94 08/22/24 10:24 76 18 99 08/22/24 10:12 73 15 92 08/22/24 09:51 99 H 21 94 08/22/24 09:42 78 21 100 08/22/24 09:34 Room Air 08/22/24 09:34 Room Air 08/22/24 09:33 73 21 87 L 08/22/24 09:30 127/92 08/22/24 09:30 127/92 08/22/24 09:18 82 08/22/24 09:02 36.5 C 78 20 123/69 Room Air Code Status & VTE Plan Code Status full code VTE Prophylaxis Plan VTE Prophylaxis will be ordered: Yes Supervising Physician Co-Signing Physician Notes Patient seen and examined, chart reviewed, case discussed with Ella Bolivar PA-C and I agree with the assessment and plan as above except as otherwise noted Labs and images reviewed Gumaro is a 60-year-old male with a past medical history of renal transplant, HFpEF, AIHA, A-fib, gout last discharged 07/30/2024 after an admission for sepsis due to pneumonia with A-fib/RVR and warm autoimmune hemolytic anemia treated with steroids and IVIG who presents to the ER for progressive dyspnea, progressive lower extremity edema, nonproductive cough. He has been receiving blood transfusions as an outpatient. Hemoglobin stable at 8. No leukocytosis. BMP is unremarkable. Troponin is chronically minimally elevated and stable/downtrending today. BNP is minimally elevated but below last value of 834, 394 on admission. He is human metapneumovirus and entero-/rhinovirus positive. Chest x-ray does show a left basilar opacity suspicious for pneumonia, cardiomegaly, and mild interstitial pulmonary edema. Procalcitonin is negative. Random cortisol is 2.84, he does have a history of steroid dependence with concern for adrenal insufficiency at prior admissions. He has been normotensive this admission. Due to possible secondary pneumonia with increased risk due to immunosuppression, double viral pneumonia, and evidence of mild congestion patient is recommended for initial treatment and monitoring as an inpatient rather than discharge home. He was treated with cefepime, doxycycline, and Lasix 20 mg IV x 1 while in the ER. Patient is hypomagnesemic, this was repleted IV + PO. Preserved EF on last echo. Will add gentle 20 mg IV Lasix daily to promote dry volume status given pulmonary edema and BNP. No tachycardia or hypotension on admission. Patient's random cortisol was obtained due to past history of adrenal insufficiency. While he has not been hypotensive this is also inappropriately very low and patient remains on prednisone 5 mg daily. Will temporarily stress dose with hydrocortisone 25 mg every 6 hours, if patient becomes hypotensive then give 200 mg IV load and increase every 6 hours dose to 50-100 mg. Does have a lobar infiltrate however he not febrile, does not have leukocytosis, does not have a left shift, and does not have an elevated procalcitonin. He has known viral pneumonia. Agree with holding antibiotics on admission, if leukocytosis rises or patient clinically deteriorates then would add back secondary pneumonia coverage at that time. Blood cultures and sputum cultures have been drawn. He actually does feel better today than yesterday, hopefully is progressing through his viral illness and will improve with cautious diuresis and supportive care. Agree with above PG Care Time/CCT Total # of Minutes Spent Total Time Spent with Patient: Total time spent is greater than 50% in coordination of care (as documented) at patient's floor/unit and/or counseling patient: Coding Level of Care Code 83345 INT INP/OBS CARE MIN Diagnoses Pneumonia J18.9 Acute exacerbation of CHF (congestive heart failure) I50.9 Hypomagnesemia E83.42 Elevated troponin R79.89 Warm autoimmune hemolytic anemia D59.11 Atrial fibrillation, unspecified type I48.91 Atrial fibrillation type: unspecified CKD (chronic kidney disease) N18.9 (6) Atrial fibrillation Atrial fibrillation type: unspecified Qualified Code(s): I48.91 - Unspecified atrial fibrillation
[2024-08-22] MEDS: FUROSEMIDE INJ 20 MG/2 ML VIAL IV ONE (13:06)
[2024-08-22] MEDS: CEFEPIME 2000MG 2,000 MG/20 ML SYR IV STA (13:07)
[2024-08-22] MEDS: DOXYCYCLINE HYCLATE 100 MG in DEXTROSE 5% MINI-B 100 ML IV STA (14:13)
[2024-08-22] MEDS: MAGNESIUM SULFATE / D5W 1 GM/100 ML BAG IV SCH (14:47)
[2024-08-22] MEDS: HYDROCORTISONE SOD 25 MG in SYRINGE 0 ML IV ONE (15:05)
--- NOTE | 2024-08-22 15:27 | Electrocardiogram Report ---
Test Reason : Blood Pressure : */* mmHG Vent. Rate : 79 BPM Atrial Rate : * BPM P-R Int : * ms QRS Dur : 154 ms QT Int : 460 ms P-R-T Axes : * -28 81 degrees QTcB Int : 527 ms Atrial fibrillation with a competing junctional pacemaker Right bundle branch block Abnormal ECG When compared with ECG of 26-Jul-2024 09:04, Vent. rate has decreased by 66 bpm T wave inversion no longer evident in Inferior leads Confirmed by Chadd Kohler ([id number]) on 08/22/2024 3:26:42 PM Referred By: REFERRED SELF Confirmed By: Chadd Kohler
[2024-08-22] MEDS ORDERED: DOCUSATE SODIUM 100 MG CAP PO PRN (18:21)
[2024-08-22] MEDS ORDERED: ACETAMINOPHEN 325 MG TAB PO PRN (18:21)
[2024-08-22] MEDS: METOPROLOL SUCC 50MG EXT REL TAB PO SCH (20:43)
[2024-08-22] MEDS: MYCOPHENOLATE MOFETIL 250 MG CAP PO SCH (20:43)
[2024-08-22] MEDS: PANTOprazole 40 MG TAB PO SCH (20:43)
[2024-08-22] MEDS: ACYCLOVIR 400 MG TAB PO SCH (20:44)
[2024-08-22] MEDS: TACROLIMUS 1 MG CAP PO SCH (20:44)
[2024-08-22] MEDS: FERROUS SULFATE 325 MG TAB PO SCH (20:44)
[2024-08-22] MEDS: FOLIC ACID 1 MG TAB PO SCH (20:44)
[2024-08-22] MEDS: HYDROCORTISONE SOD 25 MG in SYRINGE 0 ML IV SCH (20:44)
[2024-08-22] MEDS: MAGNESIUM OXIDE 400 MG TAB PO SCH (20:44)
[2024-08-22] MEDS ORDERED: HYDROCORTISONE SOD SUCCINATE 100 MG/2 ML VIAL IV SCH (20:45)
[2024-08-23 06:44] LABS: Hematocrit (blood only) 26.4 % (42.0-52.0); Hemoglobin 8.1 g/dl (14.0-18.0); Mean Corpuscular Hemoglobin 36.3 pg (25.0-34.0); Mean Corpuscular Hgb Conc 30.7 g/dL (32.0-36.0); Mean Corpuscular Volume 118.4 fL (80.0-100.0); Mean Platelet Volume 10.5 fL (9.4-12.4); Platelet Count 110 K/uL (130-400); RDW Coefficient of Variation 18.2 % (11.5-14.5); RDW Standard Deviation 79.8 fL (36.4-46.3); Red Blood Count 2.23 M/uL (4.70-6.10); White Blood Count 3.72 K/ul (4.8-10.8)
[2024-08-23 07:07] LABS: Immature Granulocytes # (auto) 0.02 K/uL (0.01-0.20); Immature Granulocytes % (auto) 0.5 %; Lymphocytes # (auto) 0.18 K/uL (1.20-3.40); Lymphocytes % (auto) 4.8 %; Macrocytosis Present; Monocytes # (auto) 0.13 K/uL (0.11-0.59); Monocytes % (auto) 3.5 %; Neutrophils # (auto) 3.39 K/uL (1.40-6.50); Neutrophils % (auto) 91.2 %; Polychromasia 2+
[2024-08-23] MEDS: LEVOTHYROXINE SODIUM 125 MCG TABLET PO SCH (08:05)
[2024-08-23] MEDS: TACROLIMUS 1 MG CAP PO SCH (08:06)
[2024-08-23] MEDS: allopurinoL 100 MG TAB PO SCH (08:06)
[2024-08-23] MEDS: CALCIUM CARBONATE 1250MG TAB PO SCH (08:06)
[2024-08-23] MEDS: FUROSEMIDE 40 MG/4 ML VIAL IV SCH ×2 (08:06→08:43)
[2024-08-23] MEDS: FUROSEMIDE INJ 20 MG/2 ML VIAL IV ONE (08:23)
[2024-08-23 09:28] LABS: Albumin Globulin Ratio 0.9 (0.9-2); Albumin Level 3.3 gm/dl (3.4-5.0); BUN Creatinine Ratio 24.8 (10-20); Bilirubin,Total 1.2 mg/dl (0.2-1.0); Calcium 8.6 mg/dl (8.6-10.3); Creatinine Clr Calc Pharmacy 78.3 ml/min; Globulin 3.7 gm/dl (2.5-4.0); Magnesium 1.7 mg/dl (1.7-2.4); Potassium 4.2 mmol/L (3.5-5.1)
--- NOTE | 2024-08-23 10:00 | Hospitalist Progress Note ---
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 Patient was recently started on Lasix 20 mg p.o. daily by nephrology. #Acute on chronic diastolic congestive heart failure with preserved ejection fraction of 55% #Atrial fibrillation #Elevated troponin, likely type II [place] secondary demand ischemia from CHF Echo from 07/14/2024 reviewed and shows EF of 55 to 60%, right ventricle is mildly dilated, right atrium is severely dilated, left atrium is moderately dilated, mild aortic regurgitation, mild mitral regurgitation, right ventricular systolic pressure is elevated at 30 to 40 mmHg. Moderate concentric LVH noted. Left ventricular systolic function is normal Troponins are mildly elevated and are downtrending, they are significantly low compared to his last admission from July 27, 2024 EKG shows no new ischemic changes, shows A-fib with chronic right bundle branch block Patient has improved with IV Lasix diuresis Continue Lasix 20 mg IV daily Check repeat chest x-ray two-view today Patient is not on anticoagulation secondary to auto immune hemolytic anemia issues Continue Toprol-XL 100 mg p.o. nightly I/O monitoring Daily weights #Metapneumovirus/rhinovirus pneumonia Patient is not short of breath, saturating well on room air and is not febrile Supportive treatment Sputum cultures and blood cultures sent from admission: Results pending Isolation precautions #Warm autoimmune hemolytic anemia Patient follows up with Dr. Gonsalez from [facility] He received IVIG and Velcade infusion on 08/20/2024 Patient is on prednisone 5 mg p.o. 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 Oro Baseline creatinine is between 1.3-1.4 Patient is currently at his baseline Continue CellCept, tacrolimus Magnesium replacement Monitor renal function and electrolytes Avoid nephrotoxic agents including NSAIDs #Hypothyroidism #Suspected adrenal insufficiency Patient is chronically on prednisone 5 mg daily He has been switched to hydrocortisone IV: Tapered down to 25 mg IV twice daily Checking cortisol levels while patient is on steroids is unreliable Patient will benefit from following up with endocrinology as outpatient: Discussed with patient and will give him information for Dr. Paniagua to follow- up on discharge TSH is 2.634 Continue levothyroxine 125 mcg p.o. daily #Gout Continue allopurinol CODE STATUS: Full code DVT prophylaxis: Bilateral SCDs, avoid chemical prophylaxis due to anemia issues Awaiting PT consult and recommendations for discharge planning Discharge planning likely in the next 24 to 48 hours based on PT recommendations and clinical improvement Care plan discussed with patient, nursing staff Admission and Anticipated Discharge Date Admission Date: August 22, 2024 Subjective Patient seen and examined H&P reviewed Labs reviewed Radiology reviewed Patient reports feeling much better this morning. Denies any chest pain or shortness of breath Reports improvement in his leg edema He is urinating without any issues Denies any fever or chills Denies any cough, nausea, vomiting, diarrhea, abdominal pain Patient tells me he follows up with Dr. Gonsalez from hematology/oncology: He had IVIG and Velcade infusions on August 20, 2024 and gets Velcade every 2 weeks Social history: Lives at home with his , denies tobacco use or alcohol use. Physical Exam Physical Exam: General: No acute distress Psych: Awake and alert HEENT: Anicteric sclera, moist oral mucosa CVS: irregular rate and rhythm Lungs: Bilateral air entry, no wheezing noted Abdomen: Soft, nontender, no rebound, no guarding Ext: Lower extremity pitting edema, no calf tenderness Neuro: No focal motor deficits noted Results & Data Results & Data Vital Signs (Past 12 Hours) Vital Signs Temp Pulse Pulse Resp BP Pulse Ox O2 Del Method 08/23/24 08:48 73 08/23/24 08:48 Room Air 08/23/24 07:14 36.6 C 81 20 123/79 95 Room Air 08/23/24 03:39 36.3 C L 75 18 128/74 95 Room Air 08/22/24 22:34 36.6 C 76 16 143/77 H 95 Room Air Laboratory Results Laboratory Results - last 24 hr 08/22/24 08/22/24 08/22/24 09:27 09:30 09:33 WBC RBC Hgb Hct MCV MCH MCHC RDW Std Deviation RDW Coeff of Jaye Plt Count MPV Immature Gran % (Auto) 0.5 Neut % (Auto) 80.5 Lymph % (Auto) 7.8 [place] % (Auto) 7.1 Eos % (Auto) 3.6 Baso % (Auto) 0.5 Neut # (Auto) 4.44 Lymph # (Auto) 0.43 L [place] # (Auto) 0.39 Eos # (Auto) 0.20 Baso # (Auto) 0.03 Immature Gran # (Auto) 0.03 Polychromasia 1+ Macrocytosis Present PT Cancelled INR Cancelled Sodium Cancelled Potassium Cancelled Chloride Cancelled Carbon Dioxide Cancelled Anion Gap Cancelled BUN Cancelled Creatinine Cancelled Est Cr Clr Drug Dosing Cancelled eGFR Cancelled BUN/Creatinine Ratio Cancelled Glucose Cancelled Calcium Cancelled Magnesium Cancelled Total Bilirubin Cancelled AST Cancelled ALT Cancelled Alkaline Phosphatase Cancelled Troponin I High Sens 34.3 H B-Natriuretic Peptide 394 H Total Protein Cancelled Albumin Cancelled Globulin Cancelled Albumin/Globulin Ratio Cancelled Lipase Cancelled Procalcitonin TSH Cancelled Random Cortisol Cancelled Nasal Screen MRSA (PCR) Adenovirus (PCR) Not Detected B. pertussis DNA (PCR) Not Detected B.parapertussis DNA PCR Not Detected C. pneumoniae DNA (PCR) Not Detected Coronavirus OC43 (PCR) Not Detected Coronavirus HKU1 (PCR) Not Detected Coronavirus 229E (PCR) Not Detected SARS-CoV-2 (PCR) Not Detected Coronavirus NL63 (PCR) Not Detected Human Metapneumovir PCR DETECTED A Influenza Type A (PCR) Not Detected Influenza Type B (PCR) Not Detected M. pneumoniae (PCR) Not Detected Parainfluenza 1 (PCR) Not Detected Parainfluenza 2 (PCR) Not Detected Parainfluenza 3 (PCR) Not Detected Parainfluenza 4 (PCR) Not Detected RSV (PCR) Not Detected Entero/Rhino (PCR) DETECTED A 08/22/24 08/22/24 08/22/24 10:24 11:30 13:40 WBC RBC Hgb Hct MCV MCH MCHC RDW Std Deviation RDW Coeff of Jaye Plt Count MPV Immature Gran % (Auto) Neut % (Auto) Lymph % (Auto) [place] % (Auto) Eos % (Auto) Baso % (Auto) Neut # (Auto) Lymph # (Auto) [place] # (Auto) Eos # (Auto) Baso # (Auto) Immature Gran # (Auto) Polychromasia Macrocytosis PT 12.9 H INR 1.2 H Sodium 138 Potassium 3.9 Chloride 107 Carbon Dioxide 21 Anion Gap 10 BUN 34 H Creatinine 1.29 Est Cr Clr Drug Dosing 69.4 eGFR 62.30 BUN/Creatinine Ratio 26.4 H Glucose 80 Calcium 8.3 L Magnesium 1.2 L Total Bilirubin 1.2 H AST 24 ALT 9 Alkaline Phosphatase 93 Troponin I High Sens 33.1 H B-Natriuretic Peptide Total Protein 7.2 Albumin 3.1 L Globulin 4.1 H Albumin/Globulin Ratio 0.8 L Lipase 76 Procalcitonin 0.14 TSH 2.634 Random Cortisol 2.84 Nasal Screen MRSA (PCR) Negative Adenovirus (PCR) B. pertussis DNA (PCR) B.parapertussis DNA PCR C. pneumoniae DNA (PCR) Coronavirus OC43 (PCR) Coronavirus HKU1 (PCR) Coronavirus 229E (PCR) SARS-CoV-2 (PCR) Coronavirus NL63 (PCR) Human Metapneumovir PCR Influenza Type A (PCR) Influenza Type B (PCR) M. pneumoniae (PCR) Parainfluenza 1 (PCR) Parainfluenza 2 (PCR) Parainfluenza 3 (PCR) Parainfluenza 4 (PCR) RSV (PCR) Entero/Rhino (PCR) 08/22/24 08/22/24 08/23/24 18:32 23:45 05:41 WBC 3.72 L RBC 2.23 L Hgb 8.1 L Hct 26.4 L MCV 118.4 H MCH 36.3 H MCHC 30.7 L RDW Std Deviation 79.8 H RDW Coeff of Jaye 18.2 H Plt Count 110 L MPV 10.5 Immature Gran % (Auto) 0.5 Neut % (Auto) 91.2 Lymph % (Auto) 4.8 [place] % (Auto) 3.5 Eos % (Auto) 0.0 Baso % (Auto) 0.0 Neut # (Auto) 3.39 Lymph # (Auto) 0.18 L [place] # (Auto) 0.13 Eos # (Auto) 0.00 Baso # (Auto) 0.00 Immature Gran # (Auto) 0.02 Polychromasia 2+ Macrocytosis Present PT INR Sodium 137 Potassium 4.2 Chloride 107 Carbon Dioxide 21 Anion Gap 9 BUN 28 H Creatinine 1.13 Est Cr Clr Drug Dosing 78.3 eGFR 73.03 BUN/Creatinine Ratio 24.8 H Glucose 104 H Calcium 8.6 Magnesium 1.7 Total Bilirubin 1.2 H AST 25 ALT 7 Alkaline Phosphatase 86 Troponin I High Sens 30.9 H 28.1 H B-Natriuretic Peptide Total Protein 7.0 Albumin 3.3 L Globulin 3.7 Albumin/Globulin Ratio 0.9 Lipase Procalcitonin TSH Random Cortisol Nasal Screen MRSA (PCR) Adenovirus (PCR) B. pertussis DNA (PCR) B.parapertussis DNA PCR C. pneumoniae DNA (PCR) Coronavirus OC43 (PCR) Coronavirus HKU1 (PCR) Coronavirus 229E (PCR) SARS-CoV-2 (PCR) Coronavirus NL63 (PCR) Human Metapneumovir PCR Influenza Type A (PCR) Influenza Type B (PCR) M. pneumoniae (PCR) Parainfluenza 1 (PCR) Parainfluenza 2 (PCR) Parainfluenza 3 (PCR) Parainfluenza 4 (PCR) RSV (PCR) Entero/Rhino (PCR) Diagnostic Findings Chest X-Ray 08/22/24 09:12 XR chest 1V portable CLINICAL HISTORY: Chest pain, nonspecific COMPARISON STUDY: Chest CT June 27, 2024. Chest radiograph July 26, 2024. FINDINGS: Cardiomegaly is unchanged. There is no pneumothorax or pleural effusion. Left basilar airspace opacity is present. There is mild interstitial thickening. IMPRESSION: 1. Left basilar opacity which may represent pneumonia. Post treatment radiographs to ensure resolution are recommended. 2. Cardiomegaly with mild interstitial pulmonary edema. ACT 112: Negative or not required by law. Electronically signed by: Martín Grossman M.D. 08/22/2024 10:12 AM PG Care Time/CCT Total # of Minutes Spent Total Time Spent with Patient: Total time spent is greater than 50% in coordination of care (as documented) at patient's floor/unit and/or counseling patient: Coding Level of Care Code 81214 SUB INP/OBS CARE 3/50MIN Diagnoses Acute on chronic diastolic (congestive) heart failure I50.33 Elevated troponin R79.89 Warm autoimmune hemolytic anemia D59.11 Atrial fibrillation I48.91 Status post kidney transplant Z94.0 Chronic kidney disease, stage 3a N18.31 Other specified hypothyroidism E03.8 Hypothyroidism type: other Rhinovirus infection B34.8 Human metapneumovirus (hMPV) pneumonia J12.3 (7) Hypothyroidism Hypothyroidism type: other Qualified Code(s): E03.8 - Other specified hypothyroidism
--- NOTE | 2024-08-23 14:50 | XRay Report ---
XR chest 2V PA/lateral CLINICAL HISTORY: CHF COMPARISON STUDY: Chest CT June 27, 2024. Chest radiograph August 22, 2024. FINDINGS: There is no pneumothorax. There are trace bilateral pleural effusions. Cardiomegaly is unch anged. Pulmonary edema has mildly improved. Left basilar airspace opacity persists. The right lung is clear. IMPRESSION: 1. Cardiomegaly. Interval improvement in pulmonary edema. 2. Persistent left basilar opacity. This is suspicious for pneumonia. Continued radiographic follow-u p to ensure resolution is recommended. 3. Trace bilateral pleural effusions. ACT 112: Negative or not required by law. Electronically signed by: Martín Grossman M.D. 08/23/2024 2:48 PM
[2024-08-23] MEDS: MAGNESIUM SULFATE / D5W 1 GM/100 ML BAG IV SCH (16:47)
[2024-08-23] MEDS: HYDROCORTISONE SOD 25 MG in SYRINGE 0 ML IV SCH (16:48)
[2024-08-24 08:19] LABS: Mean Corpuscular Hemoglobin 36.7 pg (25.0-34.0); Mean Corpuscular Hgb Conc 30.8 g/dL (32.0-36.0); Mean Corpuscular Volume 119.3 fL (80.0-100.0); Mean Platelet Volume 11.2 fL (9.4-12.4); Platelet Count 129 K/uL (130-400); RDW Coefficient of Variation 17.6 % (11.5-14.5); Red Blood Count 2.18 M/uL (4.70-6.10); White Blood Count 4.42 K/ul (4.8-10.8)
[2024-08-24 08:23] LABS: BUN Creatinine Ratio 21.7 (10-20); Calcium 8.8 mg/dl (8.6-10.3); Creatinine Clr Calc Pharmacy 57.9 ml/min; Magnesium 1.7 mg/dl (1.7-2.4); Potassium 3.8 mmol/L (3.5-5.1)
[2024-08-24 08:45] LABS: Basophils # (auto) 0.01 K/uL (0.00-0.20); Basophils % (auto) 0.2 %; Eosinophils # (auto) 0.01 K/uL (0.00-0.50); Eosinophils % (auto) 0.2 %; Immature Granulocytes # (auto) 0.02 K/uL (0.01-0.20); Immature Granulocytes % (auto) 0.5 %; Lymphocytes # (auto) 0.31 K/uL (1.20-3.40); Macrocytosis Present; Neutrophils # (auto) 3.67 K/uL (1.40-6.50); Neutrophils % (auto) 83.1 %; Polychromasia 2+
[2024-08-24] MEDS: predniSONE 20 MG TAB PO STA (10:30)
--- NOTE | 2024-08-24 12:06 | Hospitalist Progress Note ---
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 Patient was recently started on Lasix 20 mg p.o. daily by nephrology. #Acute on chronic diastolic congestive heart failure with preserved ejection fraction of 55% #Atrial fibrillation #Elevated troponin, likely type II [place] secondary demand ischemia from CHF Echo from 07/14/2024 reviewed and shows EF of 55 to 60%, right ventricle is mildly dilated, right atrium is severely dilated, left atrium is moderately dilated, mild aortic regurgitation, mild mitral regurgitation, right ventricular systolic pressure is elevated at 30 to 40 mmHg. Moderate concentric LVH noted. Left ventricular systolic function is normal Troponins are mildly elevated and are downtrending, they are significantly low compared to his last admission from July 27, 2024 EKG shows no new ischemic changes, shows A-fib with chronic right bundle branch block Patient has improved with IV Lasix diuresis Repeat chest x-ray showed improvement in pulmonary edema Creatinine has gone up slightly: Stop IV Lasix Switch to Bumex 1 mg p.o. daily starting tomorrow Patient is not on anticoagulation secondary to auto immune hemolytic anemia issues Continue Toprol-XL 100 mg p.o. nightly I/O monitoring Daily weights #Metapneumovirus/rhinovirus pneumonia Patient is not short of breath, saturating well on room air and is not febrile Supportive treatment Sputum culture from admission shows moderate normal raciel, blood cultures have been negative to date Patient is wheezing: Trial of Xopenex nebulizer as needed Isolation precautions #Warm autoimmune hemolytic anemia Patient follows up with Dr. Gonsalez from heme-onc He received IVIG and Velcade infusion on 08/20/2024 Patient is on prednisone 5 mg p.o. 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 Oro Baseline creatinine is between 1.3-1.4 Creatinine is slightly elevated above his baseline given diuresis IV Lasix Continue CellCept, tacrolimus Magnesium replacement as needed Monitor renal function and electrolytes Avoid nephrotoxic agents including NSAIDs #Hypothyroidism #Suspected adrenal insufficiency Patient is chronically on prednisone 5 mg daily He was switched to IV hydrocortisone: Stop IV hydrocortisone and switch him to oral prednisone: Will increase dose to 20 mg p.o. twice daily for now given stressful conditions from a viral infection and taper down on discharge to home dose of prednisone 5 mg daily Checking cortisol levels while patient is on steroids is unreliable Patient will benefit from following up with endocrinology as outpatient: Discussed with patient and will give him information for Dr. Paniagua to follow- up on discharge TSH is 2.634 Continue levothyroxine 125 mcg p.o. daily #Gout Continue allopurinol CODE STATUS: Full code DVT prophylaxis: Bilateral SCDs, avoid chemical prophylaxis due to anemia issues Patient met with PT and they recommended home with home PT: Patient has declined all home health services Discharge planning likely in the next 24 to 48 hours based on clinical improvement and hemoglobin Care plan discussed with patient, nursing staff Admission and Anticipated Discharge Date Admission Date: August 22, 2024 Subjective Patient seen and examined Labs reviewed Radiology reviewed Telemetry reviewed Patient states he was wheezing last night, cough is better Overall feels better He met with physical therapy but does not want any home health services He denies any chest pain, shortness of breath, nausea, vomiting, diarrhea, abdominal pain Physical Exam Physical Exam: General: No acute distress Psych: Awake and alert HEENT: Anicteric sclera, moist oral mucosa CVS: irregular rate and rhythm Lungs: Bilateral air entry, expiratory wheezing noted Abdomen: Soft, nontender, no rebound, no guarding Ext: Lower extremity pitting edema improving, no calf tenderness Neuro: No focal motor deficits noted Results & Data Results & Data Vital Signs (Past 12 Hours) Vital Signs Temp Pulse Pulse Resp BP Pulse Ox O2 Del Method 08/24/24 11:59 36.4 C L 87 20 107/72 98 Room Air 08/24/24 08:02 Room Air 08/24/24 07:31 36.6 C 81 20 112/77 95 Room Air 08/24/24 05:53 71 08/24/24 02:48 36.7 C 74 18 113/78 98 Room Air Laboratory Results Laboratory Results - last 24 hr 08/24/24 06:56 WBC 4.42 L RBC 2.18 L Hgb 8.0 L Hct 26.0 L MCV 119.3 H MCH 36.7 H MCHC 30.8 L RDW Std Deviation 77.0 H RDW Coeff of Jaye 17.6 H Plt Count 129 L MPV 11.2 Immature Gran % (Auto) 0.5 Neut % (Auto) 83.1 Lymph % (Auto) 7.0 [place] % (Auto) 9.0 Eos % (Auto) 0.2 Baso % (Auto) 0.2 Neut # (Auto) 3.67 Lymph # (Auto) 0.31 L [place] # (Auto) 0.40 Eos # (Auto) 0.01 Baso # (Auto) 0.01 Immature Gran # (Auto) 0.02 Polychromasia 2+ Macrocytosis Present Sodium 138 Potassium 3.8 Chloride 106 Carbon Dioxide 24 Anion Gap 8 BUN 33 H Creatinine 1.52 H D Est Cr Clr Drug Dosing 57.9 eGFR 51.17 BUN/Creatinine Ratio 21.7 H Glucose 102 H Calcium 8.8 Magnesium 1.7 Diagnostic Findings Chest X-Ray 08/23/24 13:49 XR chest 2V PA/lateral CLINICAL HISTORY: CHF COMPARISON STUDY: Chest CT June 27, 2024. Chest radiograph August 22, 2024. FINDINGS: There is no pneumothorax. There are trace bilateral pleural effusions. Cardiomegaly is unchanged. Pulmonary edema has mildly improved. Left basilar airspace opacity persists. The right lung is clear. IMPRESSION: 1. Cardiomegaly. Interval improvement in pulmonary edema. 2. Persistent left basilar opacity. This is suspicious for pneumonia. Continued radiographic follow-up to ensure resolution is recommended. 3. Trace bilateral pleural effusions. ACT 112: Negative or not required by law. Electronically signed by: Martín Grossman M.D. 08/23/2024 2:48 PM PG Care Time/CCT Total # of Minutes Spent Total Time Spent with Patient: Total time spent is greater than 50% in coordination of care (as documented) at patient's floor/unit and/or counseling patient: Coding Level of Care Code 58650 SUB INP/OBS CARE 3/50MIN Diagnoses Acute on chronic diastolic (congestive) heart failure I50.33 Elevated troponin R79.89 Warm autoimmune hemolytic anemia D59.11 Atrial fibrillation I48.91 Status post kidney transplant Z94.0 Chronic kidney disease, stage 3a N18.31 Other specified hypothyroidism E03.8 Hypothyroidism type: other Rhinovirus infection B34.8 Human metapneumovirus (hMPV) pneumonia J12.3 (7) Hypothyroidism Hypothyroidism type: other Qualified Code(s): E03.8 - Other specified hypothyroidism
[2024-08-24] MEDS: LEVALBUTEROL HCL 0.63 MG/3 ML NEB NEB STA (12:25)
[2024-08-24] MEDS: MAGNESIUM SULFATE / D5W 1 GM/100 ML BAG IV ONE (16:42)
[2024-08-24] MEDS: predniSONE 20 MG TAB PO SCH (16:42)
[2024-08-24] MEDS: POTASSIUM CHLORIDE CRTAB 20 MEQ TABCR PO STA (16:42)
[2024-08-25 06:27] LABS: Hematocrit (blood only) 27.6 % (42.0-52.0); Hemoglobin 8.4 g/dl (14.0-18.0); Mean Corpuscular Hemoglobin 36.1 pg (25.0-34.0); Mean Corpuscular Hgb Conc 30.4 g/dL (32.0-36.0); Mean Corpuscular Volume 118.5 fL (80.0-100.0); Mean Platelet Volume 10.9 fL (9.4-12.4); Platelet Count 138 K/uL (130-400); RDW Coefficient of Variation 17.2 % (11.5-14.5); RDW Standard Deviation 75.7 fL (36.4-46.3); Red Blood Count 2.33 M/uL (4.70-6.10); White Blood Count 4.32 K/ul (4.8-10.8)
[2024-08-25 06:44] LABS: BUN Creatinine Ratio 24.2 (10-20); Magnesium 1.9 mg/dl (1.7-2.4); Potassium 4.3 mmol/L (3.5-5.1)
[2024-08-25 06:48] LABS: Immature Granulocytes # (auto) 0.02 K/uL (0.01-0.20); Immature Granulocytes % (auto) 0.5 %; Lymphocytes # (auto) 0.17 K/uL (1.20-3.40); Lymphocytes % (auto) 3.9 %; Monocytes # (auto) 0.15 K/uL (0.11-0.59); Monocytes % (auto) 3.5 %; Neutrophils # (auto) 3.98 K/uL (1.40-6.50); Neutrophils % (auto) 92.1 %
[2024-08-25] MEDS: BUMETANIDE 1 MG TAB PO SCH (07:53)
[2024-08-25] MEDS ORDERED: predniSONE 10 MG TABLET PO SCH (09:00)
[2024-08-25] MEDS: LEVALBUTEROL HCL 0.63 MG/3 ML NEB NEB PRN (10:35)
[2024-08-25 11:47] VITALS: BP 95/46; RESP 16; TEMP 97.4; O2SAT 92
--- NOTE | 2024-08-25 13:38 | Discharge Summary ---
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 Patient was recently started on Lasix 20 mg p.o. daily by nephrology. #Acute on chronic diastolic congestive heart failure with preserved ejection fraction of 55% #Atrial fibrillation #Elevated troponin, likely type II SC secondary demand ischemia from CHF Echo from 07/14/2024 reviewed and shows EF of 55 to 60%, right ventricle is mildly dilated, right atrium is severely dilated, left atrium is moderately dilated, mild aortic regurgitation, mild mitral regurgitation, right ventricular systolic pressure is elevated at 30 to 40 mmHg. Moderate concentric LVH noted. Left ventricular systolic function is normal Troponins are mildly elevated and are downtrending, they are significantly low compared to his last admission from July 27, 2024 EKG shows no new ischemic changes, shows A-fib with chronic right bundle branch block Patient has improved with IV Lasix diuresis Repeat chest x-ray showed improvement in pulmonary edema Patient was initially diuresed with IV Lasix and switch to oral Bumex 1 mg p.o. daily Patient is not on anticoagulation secondary to auto immune hemolytic anemia issues Continue Toprol-XL 100 mg p.o. nightly Outpatient follow-up with cardiology on discharge #Metapneumovirus/rhinovirus pneumonia Patient is not short of breath, saturating well on room air and is not febrile Supportive treatment Sputum culture from admission shows moderate normal raciel, blood cultures have been negative to date Patient was given nebulizer treatment for wheezing which helped I have discharged him on albuterol inhaler as needed Outpatient follow-up with PCP #Warm autoimmune hemolytic anemia Patient follows up with Dr. Gonsalez from heme-onc He received IVIG and Velcade infusion on 08/20/2024 Patient is on prednisone 5 mg p.o. 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 Oro Baseline creatinine is between 1.3-1.4 Creatinine is slightly elevated above his baseline given diuresis IV Lasix Continue CellCept, tacrolimus Magnesium replacement Outpatient follow-up with nephrology on discharge to monitor renal function #Hypothyroidism #Suspected adrenal insufficiency Patient is chronically on prednisone 5 mg daily He was switched to IV hydrocortisone: Stop IV hydrocortisone and switch him to oral prednisone: Will increase dose to 20 mg p.o. twice daily for now given stressful conditions from a viral infection and taper down on discharge to home dose of prednisone 5 mg daily: Written steroid taper given to patient Checking cortisol levels while patient is on steroids is unreliable Patient will benefit from following up with endocrinology as outpatient: Discussed with patient and will give him information for Dr. Paniagua to follow- up on discharge TSH is 2.634 Continue levothyroxine 125 mcg p.o. daily #Gout Continue allopurinol Patient seen and examined. He was seen by PT and recommended home PT services: Patient declined home services. He is ambulating with a walker. He denies any chest pain or shortness of breath. Two-step evaluation showed patient did not need oxygen for home use. He denies any nausea, vomiting abdominal pain. Denies any shortness of breath. Cough is improved. Patient is stable for discharge home with follow-up as listed in discharge paperwork. Have gone over the discharge medications, follow-up with the patient in great detail and answered all his questions. This discharge took greater than 30 minutes to coordinate Admission HPI Per Admitting Provider Patient is a 63-year-old with a past medical history of AIHA, renal transplant, heart failure preserved ejection fraction, A-fib, gout. He was recently discharged from the hospital 07/30 due to sepsis from pneumonia and A-fib with RVR. He presents today due to dyspnea. patient stated that he was doing better after his recent discharge, a few days ago he began with dyspnea on exertion, cough with clear sputum production, and bilateral LE edema. He also stated that he had 1 episode of loose stool this morning. He stated that he was recently started on Lasix 20 mg last week with nephrology, he feels he has been peeing a lot but it still may not be enough. He has had no sick contacts that he knows of. He also stated that he had IVIG 2 days ago with hematology, he started feeling worse after that, began feeling better this morning. He does endorse chills overnight. Patient denies fever, headache, dizziness, lightheadedness, rhinorrhea, sore throat, orthopnea, chest pain, abdominal pain, nausea, vomiting, dysuria, hematuria, numbness, tingling. He has been compliant with his home medications. Discharge Exam General: No acute distress Psych: Awake and alert HEENT: Anicteric sclera, moist oral mucosa CVS: irregular rate and rhythm Lungs: Bilateral air entry, no wheezing noted Abdomen: Soft, nontender, no rebound, no guarding Ext: Lower extremity pitting edema improving, no calf tenderness Neuro: No focal motor deficits noted Discharge Plan Discharge Items Patient Disposition: Home - Self-Care Reason For Visit: PNEUMONIA, ACUTE CHF, ELEVATED TROPONIN Discharge Diagnosis: #Acute on chronic diastolic congestive heart failure with preserved ejection fraction of 55% #Atrial fibrillation #Elevated troponin, likely type II SC secondary demand ischemia from CHF #Metapneumovirus/rhinovirus pneumonia #Warm autoimmune hemolytic anemia #History of 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 status post kidney transplant #CKD stage IIIa #Hypomagnesemia #Hypothyroidism #Suspected adrenal insufficiency #Gout Activity: As commented below Activity Comment: As tolerated with assistance with walker Driving/Machine Use: No driving until cleared by PCP Non-emergency contact: Primary Care Provider Call non-emergency contact if: you have any medication questions, your symptoms worsen and you have a fever Follow-up/Referrals: Chadd Kohler MD [Physician] - Heriberto Paniagua MD [Physician] - Santos Rivers MD [Primary Care Provider] - Charlotte Oro MD [Physician] - Ba Gosnalez MD [Physician] - Diet: Heart Healthy and Low Sodium (2gm) Fluids: 1800ml (7 cups) Addtl Attending Provider Instructions: DISCHARGE INSTRUCTION TO PATIENT/FAMILY: Follow-up with your primary care provider within 1 week regarding: Posthospital discharge, medication review, medication refills and follow-up on all your medical problems, LABS Please take all your discharge medications, discharge information and discharge instructions to all your doctors appointments. Avoid all NSAIDs including ibuprofen, Motrin, Advil, Aleve, naproxen, meloxicam, Toradol, diclofenac Follow-up with your outpatient loop tacker within 1 week to monitor your kidney function We suspect you have adrenal insufficiency: You will benefit from following up with an testing lead regarding suspected adrenal insufficiency and hypothyroidism. Please call and make an appoint with Dr. Heriberto Paniagua testing lead within 1 to 2 weeks Follow-up with your dispatch officer Dr. Gonsalez in 1 to 2 weeks regarding warm autoimmune hemolytic anemia Follow-up with your outpatient commercial underwriter Dr. Chadd Kohler in 1 to 2 weeks time regarding heart failure and atrial fibrillation Prednisone taper instructions: Take 20 mg (2 tabs) twice daily with breakfast and dinner x 3 days, then 10 mg (1 tab) twice daily with breakfast and dinner x 3 days, then 10 mg (1 tab) once daily with breakfast x 3 days and then resume home dose of prednisone 5 mg daily Labs through PCP in 1 week: CBC, CMP, MG Chest XRay (PA and Lateral) through PCP in 2 to 3 weeks time to assess for resolution of viral pneumonia Pending Studies at Discharge: No Stand-Alone Forms: My ttwick, Smoking Cessation Medications and DC Order Prescriptions: New albuterol sulfate 90 mcg/actuation HFA aerosol inhaler 2 inh inhalation Q6H PRN (Reason: shortness of breath or wheezing) Qty: 8.5 0RF bumetanide 1 mg Tablet 1 mg PO QAM Qty: 30 0RF prednisone 10 mg tablet 10 mg PO DIRECTED Qty: 21 0RF Rx Instructions: see taper instructions: Take 20 mg (2 tabs) twice daily with breakfast and dinner x 3 days, then 10 mg (1 tab) twice daily with breakfast and dinner x 3 days, then 10 mg (1 tab) once daily with breakfast x 3 days and then resume home dose of prednisone 5 mg daily Continued mycophenolate mofetil 250 mg capsule 500 mg PO BID Qty: 360 3RF folic acid 1 mg tablet 1 mg PO BID Qty: 180 3RF pantoprazole 40 mg tablet,delayed release (DR/EC) 40 mg PO BID Qty: 180 3RF ferrous sulfate 325 mg (65 mg iron) tablet 325 mg PO BID Qty: 60 0RF levothyroxine 125 mcg tablet 125 mcg PO QAM Qty: 90 1RF Rx Instructions: TAKE 1 TABLET BY MOUTH EVERY DAY metoprolol succinate 100 mg tablet extended release 24 hr 100 mg PO HS Qty: 90 1RF ondansetron 4 mg tablet,disintegrating 4 mg PO Q8 PRN (Reason: nausea) Qty: 20 1RF Rx Instructions: Take as needed for nausea allopurinol 100 mg tablet 200 mg PO DAILY Qty: 60 2RF tacrolimus 1 mg capsule 3 mg PO UD Rx Instructions: Two 1 mg tablets in the morning and one in the evening. magnesium oxide 500 mg magnesium tablet 500 mg PO BID amoxicillin 500 mg capsule 2,000 mg PO DIRECTED PRN (Reason: PRIOR TO DENTAL PROCEDURES) multivitamin Tablet 1 tab PO QAM calcium carbonate 500 mg calcium (1,250 mg) Tablet 500 mg PO QAM acyclovir 400 mg tablet 400 mg PO BID Held prednisone 5 mg tablet 5 mg PO DAILY Qty: 90 3RF Hold Instructions: Resume on 09/04/24. Resume prednisone 5 mg daily after finishing prednisone taper Discontinued furosemide [Lasix] 20 mg tablet 20 mg PO DAILY Qty: 30 2RF Discharge Orders: Discharge Order- CHF (Routine); Ordered 08/25/24 Ordered By: Linwood Giang Admission Data Admit Date/Time: 08/24/24 16:00 Attending Provider: Linwood Giang Admit Provider: Lniwood Giang Primary Care Provider: Santos Rivers Other Providers: Ranjeet Frederick Other Interventions: Discharge Summary Assessment (RN) Last Done: 08/25/24 13:39 Hospital Stay Data Consultations 08/22/24 13:10 ED Decision to Admit Stat Diagnostic Imagining Performed Chest X-Ray 08/22/24 09:12 XR chest 1V portable CLINICAL HISTORY: Chest pain, nonspecific COMPARISON STUDY: Chest CT June 27, 2024. Chest radiograph July 26, 2024. FINDINGS: Cardiomegaly is unchanged. There is no pneumothorax or pleural effusion. Left basilar airspace opacity is present. There is mild interstitial thickening. IMPRESSION: 1. Left basilar opacity which may represent pneumonia. Post treatment radiographs to ensure resolution are recommended. 2. Cardiomegaly with mild interstitial pulmonary edema. ACT 112: Negative or not required by law. Electronically signed by: Martín Grossman M.D. 08/22/2024 10:12 AM Chest X-Ray 08/23/24 13:49 XR chest 2V PA/lateral CLINICAL HISTORY: CHF COMPARISON STUDY: Chest CT June 27, 2024. Chest radiograph August 22, 2024. FINDINGS: There is no pneumothorax. There are trace bilateral pleural effusions. Cardiomegaly is unchanged. Pulmonary edema has mildly improved. Left basilar airspace opacity persists. The right lung is clear. IMPRESSION: 1. Cardiomegaly. Interval improvement in pulmonary edema. 2. Persistent left basilar opacity. This is suspicious for pneumonia. Continued radiographic follow-up to ensure resolution is recommended. 3. Trace bilateral pleural effusions. ACT 112: Negative or not required by law. Electronically signed by: Martín Grossman M.D. 08/23/2024 2:48 PM Laboratory Results - last 48 hr 08/24/24 08/25/24 06:56 05:48 WBC 4.42 L 4.32 L RBC 2.18 L 2.33 L Hgb 8.0 L 8.4 L Hct 26.0 L 27.6 L MCV 119.3 H 118.5 H MCH 36.7 H 36.1 H MCHC 30.8 L 30.4 L RDW Std Deviation 77.0 H 75.7 H RDW Coeff of Jaye 17.6 H 17.2 H Plt Count 129 L 138 MPV 11.2 10.9 Immature Gran % (Auto) 0.5 0.5 Neut % (Auto) 83.1 92.1 Lymph % (Auto) 7.0 3.9 Rock % (Auto) 9.0 3.5 Eos % (Auto) 0.2 0.0 Baso % (Auto) 0.2 0.0 Neut # (Auto) 3.67 3.98 Lymph # (Auto) 0.31 L 0.17 L Rock # (Auto) 0.40 0.15 Eos # (Auto) 0.01 0.00 Baso # (Auto) 0.01 0.00 Immature Gran # (Auto) 0.02 0.02 Polychromasia 2+ Macrocytosis Present Sodium 138 136 Potassium 3.8 4.3 Chloride 106 104 Carbon Dioxide 24 23 Anion Gap 8 9 BUN 33 H 37 H Creatinine 1.52 H D 1.53 H Est Cr Clr Drug Dosing 57.9 58.0 eGFR 51.17 50.77 BUN/Creatinine Ratio 21.7 H 24.2 H Glucose 102 H 121 H Calcium 8.8 9.0 Magnesium 1.7 1.9 Blood Type A Positive Antibody Screen POSITIVE A Pending Results Patient Have Any Pending Studies at Discharge: No Discharge Instructions Given to Patient (Per Discharging Provider) DISCHARGE INSTRUCTION TO PATIENT/FAMILY: Follow-up with your primary care provider within 1 week regarding: Posthospital discharge, medication review, medication refills and follow-up on all your medical problems, LABS Please take all your discharge medications, discharge information and discharge instructions to all your doctors appointments. Avoid all NSAIDs including ibuprofen, Motrin, Advil, Aleve, naproxen, meloxicam, Toradol, diclofenac Follow-up with your outpatient loop tacker within 1 week to monitor your kidney function We suspect you have adrenal insufficiency: You will benefit from following up with an testing lead regarding suspected adrenal insufficiency and hypothyroidism. Please call and make an appoint with Dr. Heriberto Paniagua testing lead within 1 to 2 weeks Follow-up with your dispatch officer Dr. Gonsalez in 1 to 2 weeks regarding warm autoimmune hemolytic anemia Follow-up with your outpatient commercial underwriter Dr. Chadd Kohler in 1 to 2 weeks time regarding heart failure and atrial fibrillation Prednisone taper instructions: Take 20 mg (2 tabs) twice daily with breakfast and dinner x 3 days, then 10 mg (1 tab) twice daily with breakfast and dinner x 3 days, then 10 mg (1 tab) once daily with breakfast x 3 days and then resume home dose of prednisone 5 mg daily Labs through PCP in 1 week: CBC, CMP, MG Chest XRay (PA and Lateral) through PCP in 2 to 3 weeks time to assess for resolution of viral pneumonia Total Time Total Time Spent Total Time Spent (In Minutes): 40 minutes Coding Level of Care Code 08020 INP/OBS DISCH >30 MIN Diagnoses Acute on chronic diastolic (congestive) heart failure I50.33 Elevated troponin R79.89 Warm autoimmune hemolytic anemia D59.11 Atrial fibrillation I48.91 Status post kidney transplant Z94.0 Chronic kidney disease, stage 3a N18.31 Other specified hypothyroidism E03.8 Hypothyroidism type: other Rhinovirus infection B34.8 Human metapneumovirus (hMPV) pneumonia J12.3
[2024-08-25 13:40] VITALS: PULSE 83
== END 2024-08-25 15:18 | disposition home or self-care (01) | DRG 280 ==
LOC: EDINP 09:00 → ED 09:00 → SUATTDRO 13:40 → 2W 18:22

== ENCOUNTER 2024-09-13 07:03 | Inpatient (IN) ==
--- NOTE | 2024-09-13 07:10 | Emergency Department Note ---
Impression & Plan Acute kidney injury, Acute exacerbation of CHF (congestive heart failure), Elevated troponin ED Provider Note NAME: ANGELES MONTAÑO AGE: 63 SEX: M : 1960 ARRIVES VIA: Walk-In INFORMANT: Patient ED PROVIDER(S): Dr. 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 He notes that it started yesterday and has been consistent. He notes it is worse with movement but is still present with rest. He denies any chest pain or tightness. No belly pain. No nausea, vomiting, or diarrhea. He notes increased swelling in his lower extremities. No dysuria, urgency, or frequency. No other other upper respiratory symptoms. He later admits that he is having some chest pain today and admits to having some chest pain last night. ADDITIONAL HISTORY OBTAINED: Per HPI Chronic Medical/Social Conditions Affecting Care: Per HPI PAST MEDICAL HISTORY:See Below PAST SURGICAL HISTORY:See Below FAMILY HISTORY:See Below SOCIAL HISTORY:See Below HOME MEDICATIONS:See Below ALLERGIES:See Below VITALS:See Below PHYSICAL EXAMINATION: GENERAL: Sitting up in bed, alert, well appearing, well nourished, no distress, non-toxic EYE EXAM: normal conjunctiva. OROPHARYNX: mucous membranes are moist NECK: supple, no nuchal rigidity, no adenopathy, non-tender LUNGS: Clear to auscultation. Normal chest wall mechanics HEART: no murmurs, S1 normal and S2 normal ABDOMEN: abdomen soft, non-tender, normo-active bowel sounds, no masses, no rebound or guarding. BACK: Back is symmetrical on inspection and there is no deformity, no midline tenderness, no CVA tenderness. SKIN: no rashes and no bruising UPPER EXTREMITIES: upper extremities are grossly normal. LOWER EXTREMITIES: Pitting edema in the bilateral lower extremities NEURO EXAM: Normal sensorium, cranial nerves II-XII grossly intact, normal speech, no gross weakness of arms, no gross weakness of legs. MEDICAL DECISION MAKING: Patient is a 63-year-old male who presents ER with above-stated complaint. IV was established and blood work was obtained. Labs show mild leukocytosis of 12,000. Mild anemia 10. BMP with a creatinine 1.86 up from baseline of what appears to be 1.1-1.2 with a transplant kidney. LFTs are unremarkable. Troponin mildly elevated. Lipase normal. UA without infection. He does have pitting edema. Do favor this component of CHF. Was given a dose of Lasix after discussion with the hospitalist. Chest x-ray with some mild vascular congestion. Patient was updated bedside discussed with the hospitalist admitted for further workup. Consults/Care Managements Discussions: Per [facility] Triage Nursing notes reviewed. Limited review of prior medical records performed Vital Signs: reviewed and remarkable for no significant abnormalities Differential diagnosis: Differential diagnoses includes but is not limited to pneumonia, bronchitis, COPD/Asthma exacerbation, pneumothorax, pulmonary embolism, congestive heart failure, acute coronary syndrome ER treatment provided: See below Diagnostics interpreted by me include EKG and cardiac monitoring as listed below: -Cardiac Monitoring: An order was placed for continuous cardiac monitoring. The monitor shows a rate of 101 with Afib rhythm. -ECG: A-fib burden 99 Left axis Right bundle branch block QTc 531 No significant change from previous performed on August 26, 2024 -Laboratory studies:Interpreted by me as stated above in MDM and shown below. Imaging studies: Xrays: As interpreted by me: Portable AP upright 1 view of the chest shows no focal infiltrate CTs show: none Procedures:none Critical Care: None Past Med/Surg History Problem List (Updated 09/13/24 @ 12:54 by Nic Starks DO) Elevated troponin (Acute) Diastolic CHF Human metapneumovirus (hMPV) pneumonia Atrial fibrillation Acute on chronic diastolic (congestive) heart failure Rhinovirus infection (Acute) Infection due to human metapneumovirus (hMPV) (Acute) CHF (congestive heart failure) (Acute) Hypomagnesemia (Acute) Pneumonia (Acute) CKD (chronic kidney disease) Adrenal insufficiency Elevated troponin Hypomagnesemia Bilateral leg edema Warm autoimmune hemolytic anemia Atrial fibrillation with rapid ventricular response Sepsis due to pneumonia Kidney transplant status, living unrelated donor (Acute) Acute exacerbation of CHF (congestive heart failure) (Acute) Acute kidney injury (Acute) Status post right hip replacement LVH (left ventricular hypertrophy) Coronary artery calcification 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 Status post kidney transplant On prednisone therapy Ground glass opacity present on imaging of lung Rosales's esophagus with esophagitis Macrocytic anemia Erosive esophagitis EGD 08/2023 Abnormal findings on diagnostic imaging of other abdominal regions, including retroperitoneum Arthritis of right hip Atrial fibrillation controlled w/ metoprolol Eliquis recently DC'ed during Nov hospital visit due to anemia issues, no pacer Hip arthritis Adrenal nodule TX PCP considering adrenal protocol CT or MRI for characterization Herpetic maria Aneurysm Abnormal LFTs Pneumonia Acute non-ST elevation myocardial infarction (NSTEMI) (Acute) 01/31/23 Megaloblastic anemia (Acute) Cerumen impaction Retroperitoneal mass lesion biopsy negative for malignancy 05/2022 per transplant record 03/17/23 Hypotension Diarrhea Adenomatous polyps Vitamin D deficiency Chronic kidney disease, stage 3a COVID-19 (Acute) Acute respiratory failure with hypoxemia (Acute) 07/29/20 Anemia (Chronic) hospitalized at [facility] 07/2023, received blood transfusion 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 History of esophageal reflux (Chronic) controlled, stable per pt Hyperlipidemia (Chronic) Hypothyroidism (Chronic) Obesity (Chronic) Osteoporosis (Chronic) Proteinuria (Chronic) Medical History Diarrhea Hypocalcemia Weakness Anemia Elevated troponin Atrial fibrillation with rapid ventricular response Hypotension Acute diarrhea Heart failure with preserved ejection fraction Hypomagnesemia Encounter for pre-operative examination History of non-ST elevation myocardial infarction (NSTEMI) entered into chart 01/2023 Osteoporosis Hypothyroidism Hyperlipidemia Hx of esophageal reflux controlled, stable per pt 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 Abdominal aortic aneurysm 4.9 cm on 01/2023 chest CTA History of colon polyps Retroperitoneal mass lesion biopsy negative for malignancy 05/2022 per transplant record 03/17/23 Pneumonia HX Adrenal nodule monitored by PCP Arthritis On prednisone therapy Atrial fibrillation controlled w/ metoprolol, no cardio Rosales's esophagus with esophagitis Atrial flutter unaware Autoimmune hemolytic anemia follows franck/ Dr Gonsalez Sleep apnea no device Thoracic ascending aortic aneurysm 4.[address] 01/19/24 Hypertension controlled, stable per pt Limb alert care status left arm restriction History of blood transfusion 01/2024 Hx of herpetic maria History of COVID-19 07/2020- covid pneumonia, hospitalized; resolved History of renal dialysis prior to kidney transplant; has dialysis fistula left arm History of CVA (cerebrovascular accident) 2008, mild memory changes Surgical History Hx of kidney transplant 02/2010- [place] [facility] History of esophagogastroduodenoscopy (EGD) Hx of cholecystectomy Hx of exploratory laparotomy History of colonoscopy Family History Grandmother (Maternal) Alzheimer disease Mother Depression Denies family history of Ovarian cancer Prostate cancer Diabetes Heart disease Myocardial infarction Breast cancer Lung cancer COPD (chronic obstructive pulmonary disease) Colorectal cancer Hypertension Stroke Social History Smoking Status: Never smoker Second Hand Exposure: No; Do You Dip or Chew Tobacco: No; Hx Alcohol Use: No Hx Substance Use: No 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: Gabonese Communication Ability: Effective Visual Impairment: No Limitations Hearing Ability: Normal Topographic Computator Required: No Beliefs That Will Affect Care: None marital status: Current Living Situation: Spouse and Family current occupational status: employed current occupation: [employer] How many Children do You have: 1 Feels Safe at Home: Yes Childhood Exposure to Second-Hand Smoke: No Dental Care, Regularly: Yes Seatbelt Use: sometimes Sunscreen Use: No Assistive Devices: Cane Allergies Allergies Allergy/AdvReac Type Severity Reaction Status Date / Time clopidogrel [From Plavix] Allergy Unknown Unknown Verified 09/13/24 08:32 [id number] Reductase AdvReac Intermediate myalgias Verified 09/13/24 08:32 Inhibitor [Geakgqb-Bjn-Zpa Reductase Inhibitor] Home Meds Home Medications Medication Instructions Recorded Confirmed amoxicillin 500 mg capsule 2,000 mg PO DIRECTED PRN PRIOR 07/29/20 09/13/24 TO DENTAL PROCEDURES multivitamin 1 tab PO QAM 08/02/21 09/13/24 calcium carbonate 500 mg PO QAM 01/21/24 09/13/24 acyclovir 400 mg tablet 400 mg PO BID 05/07/24 09/13/24 magnesium oxide 500 mg PO BID 08/09/24 09/13/24 tacrolimus 1 mg capsule, 1 - 2 mg PO UD 08/30/24 09/13/24 immediate-release danazol 200 mg capsule 200 mg PO BID 09/13/24 09/13/24 Previous Rx's Medication Instructions Recorded mycophenolate mofetil 250 mg 500 mg (2 x 250 mg) PO BID #360 05/29/20 capsule caps folic acid 1 mg tablet 1 mg PO BID #180 tabs 09/20/23 pantoprazole 40 mg tablet,delayed 40 mg PO BID #180 tabs 12/06/23 release ferrous sulfate 325 mg (65 mg 325 mg PO BID #60 tabs 02/05/24 iron) tablet prednisone 5 mg tablet 5 mg PO DAILY #90 tabs 02/27/24 levothyroxine 125 mcg tablet 125 mcg PO QAM #90 tabs 03/04/24 metoprolol succinate 100 mg 100 mg PO HS #90 tabs 04/22/24 tablet,extended release 24 hr ondansetron 4 mg disintegrating 4 mg PO Q8 PRN nausea #20 tabs 05/22/24 tablet allopurinol 100 mg tablet 200 mg (2 x 100 mg) PO DAILY #60 06/03/24 tabs albuterol sulfate 90 mcg/actuation 2 inh inhalation Q6H PRN shortness 08/25/24 aerosol inhaler of breath or wheezing #8.5 grams bumetanide 1 mg tablet 1 mg PO QAM #90 tabs 09/05/24 Results & Data (ED) Vital Signs Vital Signs - 24 hr 09/13/24 07:06 09/13/24 07:11 09/13/24 07:16 Temperature 37.0 C Temperature Source Oral Pulse Rate 78 95 H Pulse Rate from SpO2 Sensor Pulse Rhythm Regular Pulse Strength Normal Respiratory Rate 20 24 Respiratory Effort / Characteristics Non-Labored Spontaneous Non-Labored Spontaneous Respiratory Depth Normal Normal Respiratory Pattern Regular Regular Blood Pressure 151/92 H Blood Pressure Mean 111 Pulse Oximetry 98 96 Oxygen Delivery Method Room Air Room Air Room Air Sepsis Recent Fever Within 48 Hours No Sepsis New/Unexplained Change in Mental Status N/A Sepsis Action Taken by Nursing No Action Required 09/13/24 07:19 09/13/24 08:15 09/13/24 08:30 Temperature Temperature Source Pulse Rate 100 H 98 H Pulse Rate from SpO2 Sensor 94 H Pulse Rhythm Pulse Strength Respiratory Rate 23 Respiratory Effort / Characteristics Respiratory Depth Respiratory Pattern Blood Pressure 127/93 Blood Pressure Mean 103 Pulse Oximetry 96 96 Oxygen Delivery Method Room Air Sepsis Recent Fever Within 48 Hours Sepsis New/Unexplained Change in Mental Status Sepsis Action Taken by Nursing 09/13/24 08:59 09/13/24 09:01 09/13/24 09:08 Temperature Temperature Source Pulse Rate 92 H 90 108 H Pulse Rate from SpO2 Sensor 93 H 90 108 H Pulse Rhythm Pulse Strength Respiratory Rate 20 20 24 Respiratory Effort / Characteristics Respiratory Depth Respiratory Pattern Blood Pressure 92/68 L 99/68 L 103/79 Blood Pressure Mean 79 83 92 Pulse Oximetry 96 96 94 Oxygen Delivery Method Room Air Room Air Room Air Sepsis Recent Fever Within 48 Hours Sepsis New/Unexplained Change in Mental Status Sepsis Action Taken by Nursing Laboratory Data 09/13/24 07:14 09/13/24 07:14 Lab Results 09/13/24 09/13/24 09/13/24 Range/Units 07:14 07:41 09:50 WBC 12.36 H (4.8-10.8) K/ul RBC 2.99 L (4.70-6.10) M/uL Hgb 10.8 L (14.0-18.0) g/dl Hct 33.7 L (42.0-52.0) % MCV 112.7 H (80.0-100.0) fL MCH 36.1 H (25.0-34.0) pg MCHC 32.0 (32.0-36.0) g/dL RDW Std Deviation 67.2 H (36.4-46.3) fL RDW Coeff of Jaye 15.9 H (11.5-14.5) % Plt Count 136 (130-400) K/uL MPV 10.8 (9.4-12.4) fL Neutrophils % (Manual) 89 % Lymphocytes % (Manual) 2 % Monocytes % (Manual) 6 % Basophils % (Manual) 3 % Neutrophils # (Manual) 11.00 H (1.40-6.50) K/uL Total Absolute Neuts 11.00 H (1.4-6.5) K/uL Lymphocytes # (Manual) 0.25 L (1.2-3.4) K/uL Total Abs Lymphocytes 0.25 L (1.2-3.4) K/uL Monocytes # (Manual) 0.74 H (0.11-0.59) K/uL Basophils # (Manual) 0.37 H (0-0.2) K/uL RBC Morphology Unremarkable Sodium 138 (136-145) mmol/L Potassium 4.1 (3.5-5.1) mmol/L Chloride 99 (98-107) mmol/L Carbon Dioxide 32 (21-32) mmol/L Anion Gap 7 (3-11) BUN 42 H (6-23) mg/dl Creatinine 1.86 H (0.6-1.4) mg/dl Est Cr Clr Drug Dosing 45.2 ml/min eGFR 40.16 BUN/Creatinine Ratio 22.6 H (10-20) Glucose 91 (70-99(Fasting)) mg/dl Calcium 9.8 (8.6-10.3) mg/dl Total Bilirubin 2.0 H (0.2-1.0) mg/dl AST 37 (13-39) U/L ALT 16 (7-52) U/L Alkaline Phosphatase 83 (34-104) U/L Troponin I High Sens 35.7 H 38.1 H (0-20) pg/ml B-Natriuretic Peptide 303 H (0-100) pg/ml Total Protein 8.2 (6.0-8.3) gm/dl Albumin 3.9 (3.4-5.0) gm/dl Globulin 4.3 H (2.5-4.0) gm/dl Albumin/Globulin Ratio 0.9 (0.9-2) Lipase 44 (11-82) U/L Urine Color Dark Yellow Urine Appearance Clear (Clear) Urine pH 5.5 (4.5-7.5) Ur Specific Hoopa 1.017 (1.000-1.030) Urine Protein Trace H (Negative) Urine Glucose (UA) Negative (Negative) Urine Ketones Negative (Negative) Urine Blood Negative (Negative) Urine Nitrite Negative (Negative) Urine Bilirubin 1+ H (Negative) Urine Urobilinogen Negative (Negative) Ur Leukocyte Esterase Trace H (Negative) Urine WBC (Auto) 0-5 (0-5) /hpf Urine RBC (Auto) 0-2 (0-2) /hpf U Hyaline Cast (Auto) 11-20 H (0-2) /lpf U Epithel Cells (Auto) 0-2 (0-2) /hpf Urine Bacteria (Auto) None Seen (None Seen) Administered Medications Nitroglycerin (Nitroglycerin Sl 0.4 Mg/Tab Tab) 0.4 mg SL Q5M PRN PRN Reason: Chest Pain Stop: 10/13/24 08:48 Last Admin: 09/13/24 09:02 Dose: 0.4 mg Documented By: Admin: 09/13/24 08:55 Dose: 0.4 mg Documented By: SRL Discontinued Medications Aspirin (Aspirin Chew 324 Mg) 324 mg PO NOW STA Stop: 09/13/24 08:50 Last Admin: 09/13/24 08:55 Dose: 324 mg Documented By: SRL Furosemide (Furosemide 40 Mg/4 Ml Vial) 40 mg IV NOW STA Stop: 09/13/24 09:10 Last Admin: 09/13/24 09:40 Dose: 40 mg Documented By: SRL Imaging Data Radiologist's Impression: Chest X-Ray 09/13/24 07:06 EXAM: XR chest 1V portable CLINICAL HISTORY: CP, SOB LTV TECHNIQUE: An X-ray image of the chest is obtained in AP projection. COMPARISON: 08/23/2024. FINDINGS: Pulmonary Parenchyma: Bilateral prominent/thick interstitial markings [interstitial edema] No evidence of consolidation, collapse. No pulmonary nodules are identified. No evidence of pleural effusion or pleural thickening. Heart and Mediastinum: Cardiac shadow is enlarged with bilateral hilar congestion. No mediastinal widening seen. No hilar or mediastinal lymphadenopathy is seen. Bony Thorax: Bony thorax appears intact without fractures or deformities. Soft Tissues: Soft tissues overlying the chest wall are unremarkable. IMPRESSION: 1. Bilateral prominent/thick interstitial marking. could be Interstitial edema. 2. Mild cardiomegaly. 3. Comparing the previous x-ray dated 08/23/2024 findings remained stable. Electronically signed by Giuseppe Real 09-13-2024 08:30 AM Discharge Plan Visit Data Chief Complaint: Shortness of Breath/Dyspnea Stated Complaint: SOB, CHEST PAIN, ED Provider: Nic Starks Discharge Problem: Acute kidney injury, Acute exacerbation of CHF (congestive heart failure), Elevated troponin Patient Disposition: Admitted As Inpatient Discharge Instructions Interventions: ED Discharge Assessment Last Done: 09/13/24 12:22 Discharge Problem: Acute exacerbation of CHF (congestive heart failure) Qualifiers: Heart failure type: unspecified Qualified Code(s): I50.9 - Heart failure, unspecified
[2024-09-13 07:42] LABS: Hematocrit (blood only) 33.7 % (42.0-52.0); Hemoglobin 10.8 g/dl (14.0-18.0); Mean Corpuscular Hemoglobin 36.1 pg (25.0-34.0); Mean Corpuscular Volume 112.7 fL (80.0-100.0); Mean Platelet Volume 10.8 fL (9.4-12.4); Platelet Count 136 K/uL (130-400); RDW Coefficient of Variation 15.9 % (11.5-14.5); RDW Standard Deviation 67.2 fL (36.4-46.3); Red Blood Count 2.99 M/uL (4.70-6.10); White Blood Count 12.36 K/ul (4.8-10.8)
[2024-09-13 07:46] LABS: Albumin Globulin Ratio 0.9 (0.9-2); Albumin Level 3.9 gm/dl (3.4-5.0); BUN Creatinine Ratio 22.6 (10-20); Calcium 9.8 mg/dl (8.6-10.3); Creatinine Clr Calc Pharmacy 45.2 ml/min; Globulin 4.3 gm/dl (2.5-4.0); Potassium 4.1 mmol/L (3.5-5.1); Total Protein 8.2 gm/dl (6.0-8.3)
[2024-09-13 07:50] LABS: ALC (manual) 0.25 K/uL (1.2-3.4); Basophils # (manual) 0.37 K/uL (0-0.2); Basophils % (manual) 3 %; Lymphocytes # (manual) 0.25 K/uL (1.2-3.4); Lymphocytes % (manual) 2 %; Monocytes # (manual) 0.74 K/uL (0.11-0.59); Monocytes % (manual) 6 %; Neutrophils % (manual) 89 %; RBC Morphology Unremarkable
[2024-09-13 07:52] LABS: Troponin I High Sensitivity 35.7 pg/ml (0-20)
[2024-09-13 08:08] LABS: Appearance Urine Clear (Clear); Bacteria Urine Automated None Seen (None Seen); Bilirubin Urine 1+ (Negative); Blood Urine Negative (Negative); Color Urine Dark Yellow; Epithelial Cell Urine Auto 0-2 /hpf (0-2); Glucose Urine UA Negative (Negative); Ketones Urine Negative (Negative); Leukocyte Esterase Urine Trace (Negative); Nitrite Urine Negative (Negative); Protein Urine Trace (Negative); RBC Urine Automated 0-2 /hpf (0-2); Specific Gravity Urine 1.017 (1.000-1.030); Urobilinogen Urine Negative (Negative); WBC Urine Automated 0-5 /hpf (0-5); pH Urine 5.5 (4.5-7.5)
--- NOTE | 2024-09-13 08:31 | XRay Report ---
EXAM: XR chest 1V portable CLINICAL HISTORY: CP, SOB LTV TECHNIQUE: An X-ray image of the chest is obtained in AP projection. COMPARISON: 08/23/2024. FINDINGS: Pulmonary Parenchyma: Bilateral prominent/thick interstitial markings [interstitial edema] No evidence of consolidation, collapse. No pulmonary nodules are identified. No evidence of pleural effusion or pleural thickening. Heart and Mediastinum: Cardiac shadow is enlarged with bilateral hilar congestion. No mediastinal widening seen. No hilar or mediastinal lymphadenopathy is seen. Bony Thorax: Bony thorax appears intact without fractures or deformities. Soft Tissues: Soft tissues overlying the chest wall are unremarkable. IMPRESSION: 1. Bilateral prominent/thick interstitial marking. could be Interstitial edema. 2. Mild cardiomegaly. 3. Comparing the previous x-ray dated 08/23/2024 findings remained stable. Electronically signed by Giuseppe Real 09-13-2024 08:30 AM
[2024-09-13] MEDS: ASPIRIN CHEW 324 MG PO STA (08:55)
[2024-09-13] MEDS: NITROGLYCERIN SL 0.4 MG/TAB TAB SL PRN (08:55)
[2024-09-13] MEDS: FUROSEMIDE 40 MG/4 ML VIAL IV STA (09:40)
--- NOTE | 2024-09-13 10:09 | History & Physical Report ---
Date of Service September 13, 2024 Assessment & Plan (1) Acute on chronic diastolic (congestive) heart failure: (2) Acute kidney injury: (3) Elevated troponin: Plan 63-year-old male with past medical history significant for HFpEF, A-fib, ESRD, WAHA, and additional chronic medical conditions who is presenting for sudden onset of chest pain with shortness of breath after exertion. Pain has been unresolved, but has minimized since utilizing nitroglycerin. Patient's troponin was elevated upon admission, but EKG was without ischemic changes only revealing A-fib. Patient does appear to be mildly volume overloaded but also in setting of KRISSY on admission. #Chest pain/Acute on chronic exacerbation of HFpEF H/o HFpEF; presenting with SOB, chest pain; Mildly volume overloaded on exam today w/ 1+ pitting edema BLE, increase in baseline per patient. Minimal crackles in lung acuna, increased SOB per patient. Despite volume overload appearance, wt is down from previous admission. Suspect CP 2/2 HFpEF exacerbation compared to CAD given troponin and EKG findings - Admit - Current weight 100.7kg ; Daily weights standing, I+Os; Low-sodium, fluid restricted diet (1800mL) - Echo 07/14 LVEF 55 to 60%, RV mildly dilated, RA severely dilated, LA moderately dilated, mild AR, mild MR, RVSP 30 to 40 mmHg, mild concentric LVH noted, LV systolic function normal - BNP 303 - CXR bilateral prominent/thick interstitial marking, mild cardiomegaly, comparing to x-ray of 08/23/2024, findings stable - CMP with creatinine 1.86 and BUN 42, ratio 22.6; total bilirubin 2.0 - Troponin 35.7, repeat 38.1; will trend --> Likely 2/2 demand + renal disease, follow w/ EKG daily - EKG A-fib, LAD, RBBB, rate around 100 bpm, prolonged QTc - Provided with aspirin, furosemide, and nitroglycerin in ED; on metoprolol 100 and Bumex 1 mg daily as outpatient - Received Lasix 40mg IV in ED; HOLD further diuresis to include Bumex given KRISSY - Reeval in AM #A-fib, permanent, rate controlled Previous history of Afib, no anticoag - EKG on admission showed Afib, rate ~ 100bpm; Telemetry showing Afib, rate 90s - TSH 12/5 @ 2.634; Mg pending (h/o hypomagnesemia) - DOAC deferred 2/2 acute anemia in past, previous tolerance of Xarelto no current anticoag- revisit w/ heme about resuming therapeutic anticoag; Rate controlled with metoprolol - Continue to monitor on telemetry #KRISSY/ESRD/Status-post renal transplant Likely secondary to increase diuretic dose from last admission; H/o FSGS + renal transplant 2009; Cr baseline 1.3-1.4; On CellCept + Prograf (trough 4-7) - Cr increased to 1.86, BUN elevated to 42 - UA with trace protein, 1+ bilirubin, trace LE, and presence of hyaline cast; no bacteria - No fluids provided 2/2 acute on chronic HF - BMP am #Warm autoimmune hemolytic anemia Dx 2023; Follows with hematology most recent visit 08/20/2024; IVIG; Velcade - CBC WBC 12.36 (on chronic steroids), H&H 10.8/23.7, MCV 112.7, MCH 36.1; Total bilirubin 2 - Continue acyclovir, iron supplement, and folic acid - CBC am #Sleep apnea- No CPAP at baseline #GERD- Protonix #Gout- Allopurinol #Hypothyroidism- Levothyroxine Dispo: Admit VTE Prophylaxis: SCDs This document was dictated utilizing [employer]. Please excuse any grammatical errors that may be secondary to use of this software. 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 Recently discharged from hospital with course being 08/22 to 08/25 for pneumonia and acute exacerbation of heart failure. States that afternoon prior to arrival he noted he began to have chest pain and shortness of breath. States that prior to this he went to his chiropractor because he was having low back pains. He felt fine during this visit, went home and was splitting wood for the fireplace and then noted that a few moments after he was done with this the symptoms began. The symptoms continue to worsen throughout the evening. States that the chest pain is central, and does not radiate to his arm/back/neck. Had associated shortness of breath with this which she felt was worse than his usual. Rated the chest pain at an 8 out of 10 on the pain scale with 10 being the worst pain imaginable. The pain has since resolved to a 3 out of 10 following nitroglycerin provided in ED but is still present. Still located to central chest. No episodes of diaphoresis, palpitations, syncope, or lightheadedness. He sees had episodes like this occur before. Decided to come to the ER today because the pain was ongoing. Did have elevated troponin at 35.7, repeat at 38.1 but EKG w/o ischemic changes. Is having bilateral lower extremity edema, mildly increased from his baseline w/ BNP 303. Denying current palpitations, abdominal pain, N/V/D/C, numbness/tingling, fever/chills, headache, syncopal episodes, lightheadedness, dizziness, or URI symptoms. Did not take a.m. medications. Provided with nitroglycerin, Lasix, aspirin in ED. he does admit to going to the [employer] on and has had increased sodium in his diet. Please see Dr. Yusuf's attestation for adjustments/additions to treatment plan. Allergies Allergy/AdvReac Type Severity Reaction Status Date / Time clopidogrel [From Plavix] Allergy Unknown Unknown Verified 09/13/24 08:32 Oyxnivg-QJV-DvP Reductase AdvReac Intermediate myalgias Verified 09/13/24 08:32 Inhibitor [Mhcgmmo-Dlx-Mom Reductase Inhibitor] Home Medications Medication Instructions Recorded Confirmed Type mycophenolate mofetil 250 mg 500 mg (2 x 250 mg) PO BID #360 05/29/20 09/13/24 Rx capsule caps amoxicillin 500 mg capsule 2,000 mg PO DIRECTED PRN PRIOR 07/29/20 09/13/24 History TO DENTAL PROCEDURES multivitamin 1 tab PO QAM 08/02/21 09/13/24 History folic acid 1 mg tablet 1 mg PO BID #180 tabs 09/20/23 09/13/24 Rx pantoprazole 40 mg tablet,delayed 40 mg PO BID #180 tabs 12/06/23 09/13/24 Rx release calcium carbonate 500 mg PO QAM 01/21/24 09/13/24 History ferrous sulfate 325 mg (65 mg 325 mg PO BID #60 tabs 02/05/24 09/13/24 Rx iron) tablet prednisone 5 mg tablet 5 mg PO DAILY #90 tabs 02/27/24 09/13/24 Rx levothyroxine 125 mcg tablet 125 mcg PO QAM #90 tabs 03/04/24 09/13/24 Rx metoprolol succinate 100 mg 100 mg PO HS #90 tabs 04/22/24 09/13/24 Rx tablet,extended release 24 hr acyclovir 400 mg tablet 400 mg PO BID 05/07/24 09/13/24 History ondansetron 4 mg disintegrating 4 mg PO Q8 PRN nausea #20 tabs 05/22/24 09/13/24 Rx tablet allopurinol 100 mg tablet 200 mg (2 x 100 mg) PO DAILY #60 06/03/24 09/13/24 Rx tabs magnesium oxide 500 mg PO BID 08/09/24 09/13/24 History albuterol sulfate 90 mcg/actuation 2 inh inhalation Q6H PRN shortness 08/25/24 09/13/24 Rx aerosol inhaler of breath or wheezing #8.5 grams tacrolimus 1 mg capsule, 1 - 2 mg PO UD 08/30/24 09/13/24 History immediate-release bumetanide 1 mg tablet 1 mg PO QAM #90 tabs 09/05/24 09/13/24 Rx danazol 200 mg capsule 200 mg PO BID 09/13/24 09/13/24 History Past Med/Surg History Problem List Diastolic CHF Human metapneumovirus (hMPV) pneumonia Atrial fibrillation Acute on chronic diastolic (congestive) heart failure Rhinovirus infection (Acute) Infection due to human metapneumovirus (hMPV) (Acute) CHF (congestive heart failure) (Acute) Hypomagnesemia (Acute) Pneumonia (Acute) CKD (chronic kidney disease) Adrenal insufficiency Elevated troponin Hypomagnesemia Bilateral leg edema Warm autoimmune hemolytic anemia Atrial fibrillation with rapid ventricular response Sepsis due to pneumonia Kidney transplant status, living unrelated donor (Acute) Acute exacerbation of CHF (congestive heart failure) (Acute) Acute kidney injury Status post right hip replacement LVH (left ventricular hypertrophy) Coronary artery calcification 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 Status post kidney transplant On prednisone therapy Ground glass opacity present on imaging of lung Rosales's esophagus with esophagitis Macrocytic anemia Erosive esophagitis EGD 08/2023 Abnormal findings on diagnostic imaging of other abdominal regions, including retroperitoneum Arthritis of right hip Atrial fibrillation controlled w/ metoprolol Eliquis recently DC'ed during Nov hospital visit due to anemia issues, no pacer Hip arthritis Adrenal nodule [place] PCP considering adrenal protocol CT or MRI for characterization Herpetic maria Aneurysm Abnormal LFTs Pneumonia Acute non-ST elevation myocardial infarction (NSTEMI) (Acute) 01/31/23 Megaloblastic anemia (Acute) Cerumen impaction Retroperitoneal mass lesion biopsy negative for malignancy 05/2022 per transplant record 03/17/23 Hypotension Diarrhea Adenomatous polyps Vitamin D deficiency Chronic kidney disease, stage 3a COVID-19 (Acute) Acute respiratory failure with hypoxemia (Acute) 07/29/20 Anemia (Chronic) hospitalized at [facility] 07/2023, received blood transfusion 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 History of esophageal reflux (Chronic) controlled, stable per pt Hyperlipidemia (Chronic) Hypothyroidism (Chronic) Obesity (Chronic) Osteoporosis (Chronic) Proteinuria (Chronic) Medical History Diarrhea Hypocalcemia Weakness Anemia Elevated troponin Atrial fibrillation with rapid ventricular response Hypotension Acute diarrhea Heart failure with preserved ejection fraction Hypomagnesemia Encounter for pre-operative examination History of non-ST elevation myocardial infarction (NSTEMI) entered into chart 01/2023 Osteoporosis Hypothyroidism Hyperlipidemia Hx of esophageal reflux controlled, stable per pt 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 Abdominal aortic aneurysm 4.9 cm on 01/2023 chest CTA History of colon polyps Retroperitoneal mass lesion biopsy negative for malignancy 05/2022 per transplant record 03/17/23 Pneumonia HX Adrenal nodule monitored by PCP Arthritis On prednisone therapy Atrial fibrillation controlled w/ metoprolol, no cardio Rosales's esophagus with esophagitis Atrial flutter unaware Autoimmune hemolytic anemia follows franck/ Dr Gonsalez Sleep apnea no device Thoracic ascending aortic aneurysm 4.[address] 01/19/24 Hypertension controlled, stable per pt Limb alert care status left arm restriction History of blood transfusion 01/2024 Hx of herpetic maria History of COVID-19 07/2020- covid pneumonia, hospitalized; resolved History of renal dialysis prior to kidney transplant; has dialysis fistula left arm History of CVA (cerebrovascular accident) 2008, mild memory changes Surgical History Hx of kidney transplant 02/2010- [place] History of esophagogastroduodenoscopy (EGD) Hx of cholecystectomy Hx of exploratory laparotomy History of colonoscopy Family History Grandmother (Maternal) Alzheimer disease Mother Depression Denies family history of Ovarian cancer Prostate cancer Diabetes Heart disease Myocardial infarction Breast cancer Lung cancer COPD (chronic obstructive pulmonary disease) Colorectal cancer Hypertension Stroke Social History Smoking Status: Never smoker Second Hand Exposure: No; Do You Dip or Chew Tobacco: No; Hx Alcohol Use: No Hx Substance Use: No 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: Cypriot Communication Ability: Effective Visual Impairment: No Limitations Hearing Ability: Normal Field Application Engineer Required: No Beliefs That Will Affect Care: None marital status: Current Living Situation: Spouse and Family current occupational status: employed current occupation: [employer] How many Children do You have: 1 Feels Safe at Home: Yes Childhood Exposure to Second-Hand Smoke: No Dental Care, Regularly: Yes Seatbelt Use: sometimes Sunscreen Use: No Assistive Devices: Cane Review of Systems Review of Systems: All systems reviewed & are unremarkable except as noted in Subjective Physical Exam Physical Exam: General: No acute distress Skin: Warm and dry, without rashes or lesions Head: Normocephalic, atraumatic Eyes: PERRL, conjunctivae clear, sclera non-icteric; EOM intact; lipoma appearing mass, R inner superior eyelid ENT: External ear and ear canal without swelling; nose atraumatic; good dentition, tongue normal appearance, oropharynx appears dry Neck: Supple, no LAD; no JVD Cardio: Regular rate, irregularly irregular rhythm, no M/G/R, S1 and S2 normal Resp: No respiratory distress, ? crackles RLL; otherwise Lungs CTA in all lobes bilaterally, no wheezes, rales, or rhonchi Abdomen: Soft, symmetric, nontender; No masses or hepatosplenomegaly; Bowel sounds normoactive MSK: No deformities, full ROM throughout; pulses palpable and equal; 1+ pitting edema BLE to level of mid-calf. Neuro: Awake, alert; Sensation intact bilaterally; CN grossly intact Psych: Appropriate mood and affect; good judgement and insight. Results & Data Results & Data Vital Signs (Past 12 Hours) Vital Signs Temp Pulse Resp BP Pulse Ox O2 Del Method 09/13/24 08:30 98 H 23 127/93 96 09/13/24 08:15 100 H 09/13/24 07:19 96 Room Air 09/13/24 07:16 Room Air 09/13/24 07:11 37.0 C 95 H 24 151/92 H 96 Room Air 09/13/24 07:06 78 20 98 Room Air Laboratory Results CBC, CMP, Troponin, Lipase reviewed. Diagnostic Findings Chest X-Ray 09/13/24 07:06 EXAM: XR chest 1V portable CLINICAL HISTORY: CP, SOB LTV TECHNIQUE: An X-ray image of the chest is obtained in AP projection. COMPARISON: 08/23/2024. FINDINGS: Pulmonary Parenchyma: Bilateral prominent/thick interstitial markings [interstitial edema] No evidence of consolidation, collapse. No pulmonary nodules are identified. No evidence of pleural effusion or pleural thickening. Heart and Mediastinum: Cardiac shadow is enlarged with bilateral hilar congestion. No mediastinal widening seen. No hilar or mediastinal lymphadenopathy is seen. Bony Thorax: Bony thorax appears intact without fractures or deformities. Soft Tissues: Soft tissues overlying the chest wall are unremarkable. IMPRESSION: 1. Bilateral prominent/thick interstitial marking. could be Interstitial edema. 2. Mild cardiomegaly. 3. Comparing the previous x-ray dated 08/23/2024 findings remained stable. Electronically signed by Giuseppe Real 09-13-2024 08:30 AM ECG Additional Comments: ECG on 09/13/2024 at 7:10 AM with atrial fibrillation, rate 99, RBBB, no ischemic changes Code Status & VTE Plan Code Status Full VTE Prophylaxis Plan VTE Prophylaxis will be ordered: Yes Supervising Physician Co-Signing Physician Notes MASON Winchester Note: I personally saw and examined the patient. I verified all swanson points and agree with MASON Infante with the following exceptions and/or additions: S-patient presents with persistent chest pain and increasing shortness of breath and leg swelling since yesterday afternoon not relieved with Tums. He admits to eating larger amounts of sodium over the holiday. He reports prior to this he was remarking to his sister on how well he had been feeling recently since his last hospitalization. History and ROS reviewed otherwise as above O- Vitals reviewed Gen: [AAOx3, NAD] HEENT: [anicteric sclerae, EOMI] CV: [Irregularly irregular, normal rate no mgr nl S1S2] Pulm: [Bibasilar crackles, clear] Abd: [+BS soft NT ND no masses or hernias] Ext: [no edema, 2+ DP pulses] Skin: [no rashes, warm/dry] Neuro: [full strength throughout] CBC, CMP, troponin, BNP reviewed A/L-27-kbre-old male here with acute on chronic HFpEF, chest pain likely secondary to volume overload Trend serial troponin and EKGs but doubt ACS Given IV diuretics in the ER, follow BMP given rising creatinine/KRISSY with und erlying renal transplant Redose p.o. versus IV diuretics in the morning Strict I's and O's, daily weights, low-sodium diet PG Care Time/CCT Total # of Minutes Spent Total Time Spent with Patient: Total time spent is greater than 50% in coordination of care (as documented) at patient's floor/unit and/or counseling patient: Coding Level of Care Code 42662 INT INP/OBS CARE 3/75MIN Diagnoses Acute on chronic diastolic (congestive) heart failure I50.33 Acute kidney injury N17.9 Elevated troponin R79.89
[2024-09-13] MEDS ORDERED: MELATONIN 3 MG TAB PO PRN (12:22)
[2024-09-13] MEDS ORDERED: POLYETHYLENE (MIRALAX) 17 GM PACK PO PRN (12:22)
[2024-09-13] MEDS ORDERED: ALBUTEROL HFA 8 GM INHALER INH PRN (12:22)
[2024-09-13] MEDS: TACROLIMUS 1 MG CAP PO SCH ×2 (12:59→20:59)
[2024-09-13] MEDS: MYCOPHENOLATE MOFETIL 250 MG CAP PO SCH (13:00)
[2024-09-13] MEDS: allopurinoL 100 MG TAB PO SCH (13:00)
[2024-09-13] MEDS: PANTOprazole 40 MG TAB PO SCH (13:00)
[2024-09-13] MEDS: predniSONE 5 MG TAB PO SCH (13:00)
--- NOTE | 2024-09-13 15:50 | Electrocardiogram Report ---
Test Reason : Blood Pressure : */* mmHG Vent. Rate : 99 BPM Atrial Rate : * BPM P-R Int : * ms QRS Dur : 150 ms QT Int : 414 ms P-R-T Axes : * -40 50 degrees QTcB Int : 531 ms Atrial fibrillation Left axis deviation Right bundle branch block Minimal voltage criteria for LVH, may be normal variant Abnormal ECG When compared with ECG of 22-Aug-2024 09:17, No significant change was found Confirmed by Kannan Otto ([id number] on 09/13/2024 3:49:43 PM Referred By: REFERRED SELF Confirmed By: Kannan Otto
[2024-09-13] MEDS: FERROUS SULFATE 325 MG TAB PO SCH (17:39)
[2024-09-13] MEDS: ACYCLOVIR 400 MG TAB PO SCH (20:59)
[2024-09-13] MEDS: FOLIC ACID 1 MG TAB PO SCH (20:59)
[2024-09-13] MEDS: MAGNESIUM OXIDE 400 MG TAB PO SCH (20:59)
[2024-09-13] MEDS: METOPROLOL SUCC 50MG EXT REL TAB PO SCH (20:59)
[2024-09-14 00:04] LABS: Appearance Urine Clear (Clear); Bacteria Urine Automated None Seen (None Seen); Bilirubin Urine 1+ (Negative); Blood Urine Negative (Negative); Color Urine Orange; Epithelial Cell Urine Auto 0-2 /hpf (0-2); Glucose Urine UA Negative (Negative); Ketones Urine Negative (Negative); Leukocyte Esterase Urine Trace (Negative); Nitrite Urine Positive (Negative); Protein Urine 1+ (Negative); RBC Urine Automated 0-2 /hpf (0-2); Specific Gravity Urine 1.019 (1.000-1.030); Urobilinogen Urine Negative (Negative); WBC Urine Automated 0-5 /hpf (0-5)
[2024-09-14 00:34] LABS: Cdiff Toxin B Gene (2yr or >) Positive Cdiff Gene (Neg)
[2024-09-14] MEDS: MICONAZOLE NITRATE POWDER 85 GM EXT SCH (00:58)
[2024-09-14] MEDS: cefTRIAXone SODIUM 2,000 MG/50 ML BAG IV STA (01:02)
[2024-09-14 01:07] LABS: Cdiff Antigen Negative; Cdiff Toxin A+B Negative Cdiff Toxin (Negative)
[2024-09-14 04:58] LABS: Hematocrit (blood only) 29.5 % (42.0-52.0); Hemoglobin 9.5 g/dl (14.0-18.0); Mean Corpuscular Hemoglobin 35.4 pg (25.0-34.0); Mean Corpuscular Hgb Conc 32.2 g/dL (32.0-36.0); Mean Corpuscular Volume 110.1 fL (80.0-100.0); Mean Platelet Volume 10.9 fL (9.4-12.4); Platelet Count 98 K/uL (130-400); RDW Coefficient of Variation 15.9 % (11.5-14.5); RDW Standard Deviation 64.2 fL (36.4-46.3); Red Blood Count 2.68 M/uL (4.70-6.10); White Blood Count 8.27 K/ul (4.8-10.8)
[2024-09-14 05:14] LABS: BUN Creatinine Ratio 25.5 (10-20); Calcium 9.3 mg/dl (8.6-10.3); Chol HDL Ratio 4.9 (0-5); Creatinine Clr Calc Pharmacy 38.9 ml/min; Magnesium 1.5 mg/dl (1.7-2.4); Potassium 4.6 mmol/L (3.5-5.1)
[2024-09-14 05:19] LABS: Troponin I High Sensitivity 41.2 pg/ml (0-20)
[2024-09-14] MEDS: LEVOTHYROXINE SODIUM 125 MCG TABLET PO SCH (05:38)
[2024-09-14 05:45] LABS: Adenovirus F 40/41 PCR Not Detected (NotDetected); Astrovirus PCR Not Detected (NotDetected); Campylobacter PCR Not Detected (NotDetected); Cryptosporidium PCR Not Detected (NotDetected); Cyclospora cayetanensis PCR Not Detected (NotDetected); Entamoeba histolytica PCR Not Detected (NotDetected); Enteroaggregative E.coli(EAEC) Not Detected (NotDetected); Enteropathogenic E.coli (EPEC) Not Detected (NotDetected); Enterotoxigenic E.coli (ETEC) Not Detected (NotDetected); Giardia lamblia PCR Not Detected (NotDetected); Norovirus GI/GII PCR Not Detected (NotDetected); Plesiomonas shigelloides PCR Not Detected (NotDetected); Rotavirus A PCR Not Detected (NotDetected); Salmonella PCR Not Detected (NotDetected); Sapovirus PCR Not Detected (NotDetected); Shiga-like Toxin E.coli (STEC) Not Detected (NotDetected); Shigella/Enteroinvasive E.coli Not Detected (NotDetected); Vibrio cholerae PCR Not Detected (NotDetected); Vibrio species PCR Not Detected (NotDetected); Yersinia enterocolitica PCR Not Detected (NotDetected)
[2024-09-14] MEDS: CALCIUM CARBONATE 1250MG TAB PO SCH (07:55)
[2024-09-14] MEDS: MULTIVITAMIN TAB PO SCH (07:55)
--- NOTE | 2024-09-14 07:58 | Hospitalist Progress Note ---
Date of Service September 14, 2024 Assessment & Plan (1) Acute on chronic diastolic (congestive) heart failure: (2) Acute kidney injury: (3) Elevated troponin: Plan 63-year-old male with past medical history significant for HFpEF, A-fib, ESRD, WAHA, and additional chronic medical conditions who is presenting for sudden onset of chest pain with shortness of breath after exertion. Pain has been unresolved, but has minimized since utilizing nitroglycerin. Patient's troponin was elevated upon admission, but EKG was without ischemic changes only revealing A-fib. Patient does appear to be mildly volume overloaded but also in setting of KRISSY on admission. #Chest pain/Acute on chronic exacerbation of HFpEF H/o HFpEF; presenting with SOB, CP. Mild volume overload on exam w/ +pitting edema and crackles in lungs despite weight being down from prior admission (100.7kg on admission) however given increased salt load at [employer] with increased SOB/edema, suspect CP 2nd to HFpEF rather than CAD given stable EKG findings. CXR noting b/l prominent/interstitial markings. Was provided with asa/lasix 40mg IV/nitro in ER Reports feeling IMPROVED from breathing stand point but ongoing fatigue Metoprolol 100mg PO continued, rates 90-100s on monitor. ?if having elevated rates TITLE ATTORNEY contributing to volume overload given prior admission w/ elevated HR requiring digoxin. EKG on admission w/ AFIB, rates 99bpm.TSH wnl earlier this month Mag 1.5, 3g, IV ordered given underlying afib and will monitor on repeat. Consideration for oral supplementation given hx lows Bumex resumed at 1mg PO daily, Cr 2.16. Nephrology consulted and ok w/ such. Consideration to reach out to cardiology if needed pending ongoing rates/telemetry but appears stable at present and will continue to monitor Monitor weight, I&O Labs in AM #A-fib, permanent, rate controlled Previous history of Afib, no anticoagulation 2nd to above EKG on admission showed Afib, rate ~ 100bpm; Telemetry showing Afib, rate 90s- 100s TSH wnl earlier this month Mag 1.5, ordered 3gm IV to keep closer to 2. DOAC deferred 2nd to anemia in past, did tolerate xarelto and could be considered discussion in follow up with heme continues on metoprolol, consideration for digoxin if needed given renal impairment Continue telemetry monitoring #KRISSY/ESRD/Status-post renal transplant Likely secondary to increase diuretic dose from last admission; H/o FSGS + renal transplant 2009; Cr baseline 1.3-1.4; On CellCept + Prograf (trough 4-7) On admission, BUN/CR 42/1.86. UA w/ trace protein, no bacteria Of note, was given Ceftriaxone IV x 1 overnight for hypotension/tachycardia for possible infection and will monitor cx but defer abx at this time No IVF provided, was given nitro for CP which improved however caused hypotension overnight which could have caused elevation in Cr to 2.1 today and nephrology consult placed and agrees ok to resume bumex once daily and monitor volume status. #Warm autoimmune hemolytic anemia- Dx 2023; Follows with hematology most recent visit 08/20/2024; IVIG; Velcade WBC 12.3 k on admission, on chronic steroids. MCV 112, TB 2 Continues on iron/folic acid/acyclovir Continued on prednisone 5mg PO daily, placed on hold for today and ordered HC IV 25mg Q8H for hypotension and plan to switch back to usual prednisone in AM as do not suspect has active infection at this time but will monitor #Sleep apnea- No CPAP at baseline - suspect would beneift from use if agreeable to help with his underlying afib. would rec f/u discussion w/ PCP at ar #GERD- stable, but had some chest discomfort not relived by Tums TITLE ATTORNEY reported. - no reflux reported today and remains on protonix once daily. cdiff gene positive but toxin negative and will monitor. #Gout- Allopurinol #Hypothyroidism- Levothyroxine, TSH wnl earlier this month. Ensure compliance in f/u discussions to ensure taking correctly but will continue current 125mcg PO daily VTE Prophylaxis: SCDs , chemoproph deferred w/ hx anemia Dispo: continued inpatient stay, bumex resumed/nephrology consulted. Mag replacement ordered. HC IV x 24 hrs, plan to resume usual prednisone in AM. Continued monitoring on telemetry and if rates continue to be on elevated side can reach out to cardiology senior contracts administrator in AM to discuss additional recs. Admission and Anticipated Discharge Date Admission Date: September 13, 2024 Supervising Physician Co-Signing Physician Notes The patient was not seen by me. The chart was reviewed. Case discussed with MASON French. Agree with assessment and plan Subjective Eval this morning, laying in bed. fatigued appearing but reports breathing better a little than when he came in. had been feeling great since dc last time in follow up with cardiology and weights were down/edema at baseline and despite current weight on admission does have increased leg edema. denies burning/frequency with urination but does report having some low back pain and pain in his legs. denies weakness at baseline w/ dorsiflexion/plantar flexion however does appear to have decreased strength on the right compared to the left. Will check lumbar xray, was to go to chiropractor day after he came in here. no reported falls/trauma. No radiation to groin/radicular pattern to back pain but does have weakness. Denied palpitations/elevated HR however did have chest pain. he reports not having at present but comes and goes. no radiation and is sternal in nature. Unclear why not continued on digoxin prior admission but will consider touching base w/ cards senior contracts administrator if needed. Nephrology consult placed given renal transplant hx. Dr Gonzalez senior contracts administrator if needed. +diarrhea, cdiff sent. toxin negative but gene positive. isolation, imodium x 1. monitoring Physical Exam 2 Physical Exam: General: 63yo male laying in bed, fatigued appearing but reports breathing improved, NAD HEENT: head atraumatic, normocephalic, mmm, trachea midline Resp: faint bilateral crackles, exp wheezing, on room air, no tachypnea CV: irregularly irregular, rates 90-100s on telemetry, +systolic murmur, 1+ b/l LE edema, calves nontender/pulses present GI: +BS, soft, no overt tenderness but +generalized cramping reported no rainey MSK/Neuro: answering questions appropriately, Psych: alert/oriented to person, place, sometimes issues with year but cooperative/pleasant Results & Data Results & Data Vital Signs (Past 12 Hours) Vital Signs Temp Pulse Pulse Resp BP Pulse Ox O2 Del Method 09/14/24 07:47 36.8 C 96 H 16 101/70 94 Room Air 09/14/24 07:19 115 H 09/14/24 03:59 36.7 C 109 H 20 107/76 94 Room Air 09/13/24 23:01 36.8 C 101 H 20 92/62 L 93 Room Air 09/13/24 22:15 104 H 12/27/24 21:00 Room Air Laboratory Results 09/14/24 04:29 09/14/24 04:29 Diagnostic Findings Lumbar Spine X-Ray 09/14/24 09:52 XR lumbar spine 2-3V CLINICAL HISTORY: back pain, RLE dorsiflexion/plantar flexion weakness TECHNIQUE: 3 views of the lumbar spine were obtained. Comparison: Comparison is made to CT abdomen pelvis 06/27/2024 FINDINGS: T12 compression deformity is unchanged from prior CT. No acute fractures. Degenerative changes are seen in the lumbar spine with osteophyte formation and disc space narrowing. Right hip arthroplasty is seen. The alignment is normal. No soft tissue abnormality is seen. IMPRESSION: Degenerative changes as above without acute fracture or subluxation. ACT 112: Negative or not required by law. Electronically signed by: Chris Serra M.D. 09/14/2024 11:10 AM PG Care Time/CCT Total # of Minutes Spent Total Time Spent with Patient: Total time spent is greater than 50% in coordination of care (as documented) at patient's floor/unit and/or counseling patient: Coding Level of Care Code 54414 SUB INP/OBS CARE 3/50MIN Diagnoses Acute on chronic diastolic (congestive) heart failure I50.33 Acute kidney injury N17.9 Elevated troponin R79.89
[2024-09-14] MEDS: MAGNESIUM SULFATE / D5W 1 GM/100 ML BAG IV SCH (08:25)
[2024-09-14] MEDS: BUMETANIDE 1 MG TAB PO SCH (09:51)
[2024-09-14] MEDS: LOPERAMIDE HCL 2 MG CAP PO STA (09:51)
--- NOTE | 2024-09-14 11:11 | XRay Report ---
XR lumbar spine 2-3V CLINICAL HISTORY: back pain, RLE dorsiflexion/plantar flexion weakness TECHNIQUE: 3 views of the lumbar spine were obtained. Comparison: Comparison is made to CT abdomen pelvis 06/27/2024 FINDINGS: T12 compression deformity is unchanged from prior CT. No acute fractures. Degenerative changes are se en in the lumbar spine with osteophyte formation and disc space narrowing. Right hip arthroplasty is seen. The alignment is normal. No soft tissue abnormality is seen. IMPRESSION: Degenerative changes as above without acute fracture or subluxation. ACT 112: Negative or not required by law. Electronically signed by: Chris Serra M.D. 09/14/2024 11:10 AM
[2024-09-14] MEDS: HYDROCORTISONE SOD 50 MG in SYRINGE 0 ML IV SCH (11:31)
[2024-09-14] MEDS: HYDROCORTISONE SOD 25 MG in SYRINGE 0 ML IV SCH (11:46)
--- NOTE | 2024-09-14 12:02 | Nephrology Consultation ---
Date of Consultation September 14, 2024 Assessment & Plan (1) Acute kidney injury: (2) Kidney transplant status, living unrelated donor: (3) Acute exacerbation of CHF (congestive heart failure): (4) Hypomagnesemia: (5) Human metapneumovirus (hMPV) pneumonia: (6) Rhinovirus infection: (7) Warm autoimmune hemolytic anemia: Plan ESKD secondary to FSGS, status post Live unrelated kidney transplant with decent allograft function, b/l cr 1.3-1.4 mg/dl. Has no history of diabetes or coronary artery disease. Has CHF with diastolic dysfunction. Admitted with chest pain and shortness of breath and clinically was volume overloaded with A fib and RVR. Troponin was mildly elevated but EKG without any acute ST-T changes. BNP was mildly elevated. Lab on admission was notable for KRISSY, creatinine was 1.9 mg/dl which slightly worsened to 2.2 mg/dl this morning, most likely hemodynamically mediated with significantly low blood pressure, A-fib with RVR and CHF with diastolic dysfunction. Hemoglobin dropped to 9.5 --Continue on Bumex 1 mg daily for now, accurate intake and output, aim to keep slightly net negative but if significantly negative, will consider holding diuretics. Agree with continuing on beta-fely for rate control. --Already on IV magnesium supplement. --continue on current dose of CellCept and Prograf , last trough was 5.7, goal trough 4-7. Thank you for allowing me to participate in your patient's care. It was a pleasure to see Gumaro. History of Present Illness Reason for Consultation: KRISSY, kidney transplant status, on IS Attending Physician: Choco Wood MD History of Present Illness Mr. Gumaro Mandel is a 63-year-old gentleman with PMH of stage IIIa CKD with mild allograft dysfunction s/p renal transplant, autoimmune hemolytic anemia, osteoarthritis, admitted to the hospital with CP and CHF. Nephrology consult was requested for management of KRISSY, Anemia, hypomagnesemia and immunosuppressive medication management. EMR records were reviewed in detail during patient's visit. Gumaro presented to the ER yesterday with sudden onset of chest pain. He was recently admitted to the hospital from 08/22 to 08/25 for pneumonia with rhinovirus and human metapneumovirus. Sputum culture at that time was negative. 2D echo showed normal EF with diastolic dysfunction. Has been on Bumex 2 mg daily at home. On admission he was noted to be hypotensive with systolic blood pressure in high 80s. EKG with no acute ST-T changes. Troponin was mildly elevated which stayed relatively stable on serial measurements. Lab was notable for KRISSY, creatinine was 1.9 mg/dl with prior creatinine 1.2 on 09/03/2024 which is close to his baseline. CBC showed hemoglobin 10.8 which slightly dropped to 9.5 this morning. Had leukocytosis, WBC count is 12 improved to 8 this morning. Creatinine worsened further to 2.2 mg/dl this morning. Recent urinalysis showed improvement in proteinuria. Chest x-ray showed mild pulmonary vascular congestion. BNP 303. He was given Lasix 40 mg IV x 1 dose and IV ceftriaxone and which now stopped. Stage 3A CKD b/l cr 1.3-1.4 mg/dl s/p LUKT for ESKD secondary to nephrotic syndrome due to FSGS. Has history of repeated episodes of KRISSY in the setting of volume depletion, hypotension or acute illness but kidney function recovered rapidly with baseline decent kidney function since transplant. H/o Dx with FSGS in 2000, slowly progressed to ESRD on HD briefly for 1.5 years via L arm AVF. Received LURT from his stepson at [facility] in February 2010, on tacrolimus 2 mg/1mg q12 h, CellCept 500 mg bid and prednisone 5 mg/d. 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 Had transplant renal artery stenosis status post angioplasty. Recently noted to have moderate degree proteinuria, 700 mg in 24 hour urine, workup was unremarkable except slightly elevated free light chain ratio. Repeat urinalysis showed proteinuria improved. Lisinopril was discontinued because of hypotension. On metoprolol 100 mg daily, heart rate generally stays 80s to 90s with history of A-fib, off of Xarelto. Diagnosed with autoimmune hemolytic anemia in January 2024, received blood transfusion, now on Velcade. Has GERD, has been on Protonix 40 milligrams daily. Refused all vaccines. Overall he has been feeling poorly and getting tired of repeated hospitalization over last few months. Hemoglobin slightly dropped to 9.5 this morning. Worseni ng of kidney function noted, creatinine 2.2 magnesium 1.5 this morning. Allergies Allergy/AdvReac Type Severity Reaction Status Date / Time clopidogrel [From Plavix] Allergy Unknown Unknown Verified 09/13/24 08:32 Zjfwaok-MHY-QrQ Reductase AdvReac Intermediate myalgias Verified 09/13/24 08:32 Inhibitor [Cmdepkf-Wql-Ibh Reductase Inhibitor] Home Medications Medication Instructions Recorded Confirmed Type mycophenolate mofetil 250 mg 500 mg (2 x 250 mg) PO BID #360 05/29/20 09/13/24 Rx capsule caps amoxicillin 500 mg capsule 2,000 mg PO DIRECTED PRN PRIOR 07/29/20 09/13/24 History TO DENTAL PROCEDURES multivitamin 1 tab PO QAM 08/02/21 09/13/24 History folic acid 1 mg tablet 1 mg PO BID #180 tabs 09/20/23 09/13/24 Rx pantoprazole 40 mg tablet,delayed 40 mg PO BID #180 tabs 12/06/23 09/13/24 Rx release calcium carbonate 500 mg PO QAM 01/21/24 09/13/24 History ferrous sulfate 325 mg (65 mg 325 mg PO BID #60 tabs 02/05/24 09/13/24 Rx iron) tablet prednisone 5 mg tablet 5 mg PO DAILY #90 tabs 02/27/24 09/13/24 Rx levothyroxine 125 mcg tablet 125 mcg PO QAM #90 tabs 03/04/24 09/13/24 Rx metoprolol succinate 100 mg 100 mg PO HS #90 tabs 04/22/24 09/13/24 Rx tablet,extended release 24 hr acyclovir 400 mg tablet 400 mg PO BID 05/07/24 09/13/24 History ondansetron 4 mg disintegrating 4 mg PO Q8 PRN nausea #20 tabs 05/22/24 09/13/24 Rx tablet allopurinol 100 mg tablet 200 mg (2 x 100 mg) PO DAILY #60 06/03/24 09/13/24 Rx tabs magnesium oxide 500 mg PO BID 08/09/24 09/13/24 History albuterol sulfate 90 mcg/actuation 2 inh inhalation Q6H PRN shortness 08/25/24 09/13/24 Rx aerosol inhaler of breath or wheezing #8.5 grams tacrolimus 1 mg capsule, 1 - 2 mg PO UD 08/30/24 09/13/24 History immediate-release bumetanide 1 mg tablet 1 mg PO QAM #90 tabs 09/05/24 09/13/24 Rx danazol 200 mg capsule 200 mg PO BID 09/13/24 09/13/24 History Patient History Medical History Diarrhea Hypocalcemia Weakness Anemia Elevated troponin Atrial fibrillation with rapid ventricular response Hypotension Acute diarrhea Heart failure with preserved ejection fraction Hypomagnesemia Encounter for pre-operative examination History of non-ST elevation myocardial infarction (NSTEMI) entered into chart 01/2023 Osteoporosis Hypothyroidism Hyperlipidemia Hx of esophageal reflux controlled, stable per pt 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 Abdominal aortic aneurysm 4.9 cm on 01/2023 chest CTA History of colon polyps Retroperitoneal mass lesion biopsy negative for malignancy 05/2022 per transplant record 03/17/23 Pneumonia HX Adrenal nodule monitored by PCP Arthritis On prednisone therapy Atrial fibrillation controlled w/ metoprolol, no cardio Rosales's esophagus with esophagitis Atrial flutter unaware 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 Sleep apnea no device Thoracic ascending aortic aneurysm 4.[address] 01/19/24 Hypertension controlled, stable per pt Limb alert care status left arm restriction History of blood transfusion 01/2024 Hx of herpetic maria History of COVID-19 07/2020- covid pneumonia, hospitalized; resolved History of renal dialysis prior to kidney transplant; has dialysis fistula left arm History of CVA (cerebrovascular accident) 2008, mild memory changes Surgical History Hx of kidney transplant 02/2010- [facility], [place], [place] History of esophagogastroduodenoscopy (EGD) Hx of cholecystectomy Hx of exploratory laparotomy History of colonoscopy Family History Grandmother (Maternal) Alzheimer disease Mother Depression Denies family history of Ovarian cancer Prostate cancer Diabetes Heart disease Myocardial infarction Breast cancer Lung cancer COPD (chronic obstructive pulmonary disease) Colorectal cancer Hypertension Stroke Social History Smoking Status: Never smoker Second Hand Exposure: No; Do You Dip or Chew Tobacco: No; Hx Alcohol Use: No Hx Substance Use: No 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: Kiswahili Communication Ability: Effective Visual Impairment: No Limitations Hearing Ability: Normal Tip Banding Machine Operator Required: No Beliefs That Will Affect Care: None marital status: Current Living Situation: Spouse current occupational status: employed current occupation: [employer] How many Children do You have: 1 Feels Safe at Home: Yes Childhood Exposure to Second-Hand Smoke: No Dental Care, Regularly: Yes Seatbelt Use: sometimes Sunscreen Use: No Assistive Devices: Cane and Walker Review of Systems Review of Systems: Detail review of system was done and pertinent positives and negatives are mentioned above. Physical Exam Constitutional: WD/WN, vitals as above no acute distress Eyes: + anicteric sclerae Neck: normal visual inspection Respiratory: no respiratory distress Auscultation: + crackles; no wheezes Cardiovascular: Rate/Rhythm: + tachycardic and + irregularly irregular Heart Sounds: normal S1 and normal S2 Extremities: no edema Gastrointestinal (Abdomen): Inspection/Auscultation: abdomen normal to inspection Musculoskeletal: Extremities: extremities normal to inspection Skin: no rashes, warm and dry Neurologic: no focal motor deficits Psychiatric: Orientation: alert and oriented x 3 Affect: euthymic affect Results & Data Vital Signs (Past 12 Hours) Vital Signs Temp Pulse Pulse Resp BP Pulse Ox O2 Del Method 09/14/24 11:44 36.4 C L 101 H 18 95/66 L 94 Room Air 09/14/24 09:17 Room Air 09/14/24 07:47 36.8 C 96 H 16 101/70 94 Room Air 09/14/24 07:19 115 H 09/14/24 03:59 36.7 C 109 H 20 107/76 94 Room Air PG Care Time/CCT Total # of Minutes Spent Total Time Spent with Patient: Total time spent is greater than 50% in coordination of care (as documented) at patient's floor/unit and/or counseling patient: Coding Level of Care Code 49567 INT INP/OBS CARE 3/75MIN Diagnoses Acute kidney injury N17.9 Kidney transplant status, living unrelated donor Z94.0 Acute exacerbation of CHF (congestive heart failure) I50.9 Heart failure type: unspecified Hypomagnesemia E83.42 Human metapneumovirus (hMPV) pneumonia J12.3 Rhinovirus infection B34.8 Warm autoimmune hemolytic anemia D59.11 (3) Acute exacerbation of CHF (congestive heart failure) Heart failure type: unspecified Qualified Code(s): I50.9 - Heart failure, unspecified
[2024-09-14] MEDS: DIGOXIN 0.125 MG TAB PO ONE (17:22)
[2024-09-14] MEDS: VANCOMYCIN HCL 125 MG/2.5ML SOLN PO SCH (17:43)
[2024-09-14] MEDS: CHERRY SYRUP 5 ML UDP PO SCH (17:43)
[2024-09-15 05:02] LABS: Hematocrit (blood only) 27.9 % (42.0-52.0); Hemoglobin 9.3 g/dl (14.0-18.0); Mean Corpuscular Hemoglobin 36.2 pg (25.0-34.0); Mean Corpuscular Hgb Conc 33.3 g/dL (32.0-36.0); Mean Corpuscular Volume 108.6 fL (80.0-100.0); Platelet Count 141 K/uL (130-400); RDW Coefficient of Variation 15.9 % (11.5-14.5); RDW Standard Deviation 62.5 fL (36.4-46.3); Red Blood Count 2.57 M/uL (4.70-6.10); White Blood Count 10.02 K/ul (4.8-10.8)
[2024-09-15 05:11] LABS: BUN Creatinine Ratio 28.8 (10-20); Calcium 9.4 mg/dl (8.6-10.3); Creatinine Clr Calc Pharmacy 39.7 ml/min; Magnesium 1.9 mg/dl (1.7-2.4); Potassium 4.4 mmol/L (3.5-5.1)
[2024-09-15] MEDS: ACETAMINOPHEN 325 MG TAB PO PRN (05:48)
--- NOTE | 2024-09-15 07:31 | Hospitalist Progress Note ---
Date of Service September 15, 2024 Assessment & Plan (1) Acute on chronic diastolic (congestive) heart failure: (2) Acute kidney injury: (3) Elevated troponin: Plan 63-year-old male with past medical history significant for HFpEF, A-fib, ESRD, WAHA, and additional chronic medical conditions who is presenting for sudden onset of chest pain with shortness of breath after exertion. Pain has been unresolved, but has minimized since utilizing nitroglycerin. Patient's troponin was elevated upon admission, but EKG was without ischemic changes only revealing A-fib. Patient does appear to be mildly volume overloaded but also in setting of KRISSY on admission. #Chest pain/Acute on chronic exacerbation of HFpEF -presentation with increased SOB/CP with mild volume overload with pitting edema and crackles in lungs despite weight down to 100.7kg much better than discharge this month. Do not suspect CAD given stable troponin elevation half of what was prior but cannot r/o underlying disease. Volume overload on exam and CXR c/w volume overload w/ prominence of interstitial markings Was provided with asa/lasix 40mg IV/nitro in ER with subsequent drop in BP, suspect contributed to worsened renal function Bumex 1mg PO resumed 09/14 but placed on hold given Cr 2 EKG on admission w/ Afib 99bpm. TSH wnl Mag replacement ordered for mag 1.5 NO FURTHER CHEST PAIN 09/15 - if was ?2nd to elevated rates w/ CHF exacerbation Digoxin added 0.25mg PO daily 09/14 given prior admission w/ recs and suspect CHF exacerbation 2nd to afib/RVR prior to admission w/ increased activity as well as ongoing HR to 110-120s following mag replacement indicating need for additional rate control. Remains on metoprolol 100mg PO daily. BP improved 116/72 w/ improvement in rate control Cardiology consulted to weigh in on his afib/control for his CHF Weight 101kg w/ some slight edema today but had copious diarrhea overnight as below started vanco empirically for possible cdiff infection despite +gene/negative toxin -- placed bumex on hold to prevent dehydration today. Remains on stress dose HC 25mg IV q8h for today, switch to oral 5mg daily in AM. Also covering for possible gout in ankles/remains on allopurinol Monitor weight, standing scale. I&O. Likely resumption bumex in AM 09/16 PT/OT consults pending #A-fib, permanent, rate controlled reported on admission however have suspicion not well rate controlled, see prior admissions w/ need for IV dig/cardizem, etc. Not on AC, 2nd to hx warm AIHA, DOAC deferred in past 2nd to anemia but tolerated Xarelto (heme consulted as below) Mag replacement, improved/stable on repeat and additional 1gm ordered to keep ~2 for rate/breathing. -- PO mag oxide palced on hold for diarrhea, consider SLOW mag if needed for ongoing use TSH wnl this month Continues metoprolol 100mg PO daily, as above added digoxin 09/14 and have contnued and plan to continue to monitor on telemetry and await formal cardiology consultation. #KRISSY/ESRD/Status-post renal transplant KRISSY suspected 2nd to increased diuretic dose from last admission, h/o H/o FSGS + renal transplant 2009; Cr baseline 1.3-1.4; On CellCept + Prograf (trough 4-7) Cr 1.8, UA w/ trace protein but no bacteria. Was provided Ceftriaxone IV x 1 overnight 09/13 for +leuk esterase but defer ongoing given diarrhea/cdiff testing Bumex 1mg PO resumed 09/13 however Cr 2 on labs and placed on hold for today. Renal function remains unchanged but BP better and patient reporting improvement in his urine output/lightening up Monitor volume status in AM, MUCH improved today, to see about resumption of diuretics, possibly ?half dose if HR improved suspect not needing as much diuretic but will collette ongoing education about decreasing salt intake Appreciate nephrology consult #Cdiff Patient w/ reports of loose stool 09/14, biofire w/ +gene but negative toxin and initially deferred on starting treatment however increased diarrhea to 8+ yellow/liquid seedy foul bowel movements with abdominal discomfort and started on Vancomycin PO 09/14 with improvement in diarrhea/slowing and starting to form up (denied blood in stool) Isolation precautions in place, mag oxide placed on hold Monitor #Warm autoimmune hemolytic anemia- Dx 2023; Follows with hematology most recent visit 08/20/2024; IVIG; Velcade WBC 12.3 k on admission, on chronic steroids. MCV 112, TB 2 Continues on iron/folic acid/acyclovir Prednisone 5mg PO daily placed on hold and given +cdiff and hypotension issues have placed on HC IV 25mg Q8H with improvement in sx and will plan to transition back in AM Patient to have labs for Dr Gonsalez tomorrow for his IV treatments to be arranged this week and req consultation while inpatient. Have placed as well as LDH with AM labs as hgb stable and suspect 10 on admission 2nd to over diuresis/hemoconcentration #Sleep apnea- No CPAP at baseline - suspect would beneift from use if agreeable to help with his underlying afib. would rec f/u discussion w/ PCP at [facility] #GERD- stable, but had some chest discomfort not relived by [employer] reported. - no reflux reported today and remains on protonix once daily. cdiff gene positive but toxin negative and will monitor. #Gout- Allopurinol , HC IV as above #Hypothyroidism- Levothyroxine, TSH wnl earlier this month. Ensure compliance in f/u discussions to ensure taking correctly but will continue current 125mcg PO daily #low back pain - did have hip replacement earlier this year, some right leg weakness w/ dorsiflexion/plantar flexion. Lumbar spine xray negative but does note T12 compression deformity. improvement in sx. PT/OT consults have been placed VTE Prophylaxis: SCDs , chemoproph deferred w/ hx anemia. Can touch base w/ heme on consult about consideration Dispo: continued inpatient stay, vanco PO continued given improvement in diarrhea/discomfort. Bumex placed on hold/PO hydration encouraged and working on HR control with dig and cardiology consult placed. Appreciate recs/assistance. Heme/onc consulted to assist w/ coordination of his treatment this upcoming week PT/OT consulted Admission and Anticipated Discharge Date Admission Date: September 13, 2024 Supervising Physician Co-Signing Physician Notes The patient was not seen by me. The chart was reviewed. Case discussed with MASON French. Agree with assessment and plan Subjective Eval this morning, feeling better. Diarrhea slowing/starting to form. Does have some edema to his ankles/history of gout and on allopurinol. Reports feeling a little better with the IV steroids and will continue through today and plan to resume his usual prednisone in AM. HR improved with addition of digoxin and will plan to continue. Consideration for additional metoprolol pending continued HR on telemetry. Bumex placed on hold for this morning, does report still having concentrated urine but lightening up. He does inquire about potential reaching out upon questioning of his Velcade he gets labs typically on monday and sent to Dr Gonsalez to arrange treatment. Will place consult to weigh in/coordinate care. No further chest pain reported at rest, improving with rate control and discussed I suspect a lot of his CHF/sx likely from uncontrolled rates, and likely delicate balance as increased salt load with bulgarian followed by increased physical activity with cutting wood. Questions/concerns addressed at this time. Physical Exam 2 Physical Exam: General: 63yo male laying in bed, less fatigued, appears improved, reporting feeling better/less diarrhea/abdominal discomfort HEENT: head atraumatic, normocephalic, mmm, trachea midline Resp: faint bilateral crackles, exp wheezing, on room air, no tachypnea CV: irregularly irregular, rates improved and no further significant elevations but has been up to low 100s since dig added, 1+ b/l LE edema, ankle edema/discomfort but pulses present GI: +BS, soft, less distension, less discomfort reported, no guarding/rigidity no rainey MSK/Neuro: answering questions appropriately, Psych: alert/oriented to person, place, sometimes issues with year but cooperative/pleasant Results & Data Results & Data Vital Signs (Past 12 Hours) Vital Signs Temp Pulse Pulse Resp BP Pulse Ox O2 Del Method 09/15/24 06:57 87 09/15/24 02:44 36.7 C 104 H 18 108/77 93 Room Air 09/14/24 23:14 36.6 C 109 H 16 101/67 96 Room Air 09/14/24 22:08 109 H 09/14/24 21:48 117 H 95/65 L 09/14/24 20:30 Room Air 09/14/24 20:11 36.6 C 112 H 16 94/63 L 96 Room Air Laboratory Results 09/15/24 04:16 09/15/24 04:16 Mag 1.9 Cdiff gene +, toxin negative PG Care Time/CCT Total # of Minutes Spent Total Time Spent with Patient: Total time spent is greater than 50% in coordination of care (as documented) at patient's floor/unit and/or counseling patient: Coding Level of Care Code 81764 SUB INP/OBS CARE 3/50MIN Diagnoses Acute on chronic diastolic (congestive) heart failure I50.33 Acute kidney injury N17.9 Elevated troponin R79.89
[2024-09-15] MEDS: MAGNESIUM SULFATE / D5W 1 GM/100 ML BAG IV ONE (08:45)
--- NOTE | 2024-09-15 11:42 | Nephrology Progress Note ---
Date of Service September 15, 2024 Assessment & Plan (1) Acute kidney injury: (2) Kidney transplant status, living unrelated donor: (3) Acute exacerbation of CHF (congestive heart failure): (4) Hypomagnesemia: (5) Human metapneumovirus (hMPV) pneumonia: (6) Rhinovirus infection: (7) Warm autoimmune hemolytic anemia: Plan ESKD secondary to FSGS, status post Live unrelated kidney transplant with decent allograft function, b/l cr 1.3-1.4 mg/dl. Has no history of diabetes or coronary artery disease. Has CHF with diastolic dysfunction. Admitted with chest pain and shortness of breath and clinically was volume overloaded with A fib and RVR. Troponin was mildly elevated but EKG without any acute ST-T changes. BNP was mildly elevated. Lab on admission was notable for KRISSY, creatinine was 1.9 mg/dl which slightly worsened to 2.2 mg/dl, most likely hemodynamically mediated with significantly low blood pressure, A-fib with RVR and CHF with diastolic dysfunction. Kidney function staying relatively stable, creatinine staying around 2.1-2.2 without much improvement. Volume status however improved significantly, blood pressure better. Clinically doing better. Home --Continue on Bumex 1 mg daily for now, accurate intake and output, aim to keep even, if significantly negative, will consider holding diuretics. Agree with continuing on beta-fely for rate control. --continue on current dose of CellCept and Prograf , last trough was 5.7, goal trough 4-7. Okay to discontinue methylprednisolone and resume prednisone 5 mg stable. Admission and Anticipated Discharge Date Admission Date: September 13, 2024 Rocio Naik was seen and evaluated this morning. He reports overall feeling slightly better, shortness of breath improved. Blood pressure stable, remain tachycardic. Kidney function staying relatively stable, electrolyte acceptable. Review of Systems Review of Systems: Detail review of system was done and pertinent positives and negatives are mentioned above. Physical Exam Constitutional: WD/WN, vitals as above no acute distress Eyes: + anicteric sclerae Neck: normal visual inspection Respiratory: no respiratory distress Auscultation: lungs clear to auscultation bilaterally; no crackles and no wheezes Cardiovascular: Rate/Rhythm: + tachycardic and + irregularly irregular Heart Sounds: normal S1 and normal S2 Extremities: no edema Musculoskeletal: Extremities: extremities normal to inspection Skin: no rashes, warm and dry Neurologic: no focal motor deficits Psychiatric: Orientation: alert and oriented x 3 Affect: euthymic affect Results & Data Vital Signs (Past 12 Hours) Vital Signs Temp Pulse Pulse Resp BP Pulse Ox O2 Del Method 09/15/24 10:20 Room Air 09/15/24 07:57 36.8 C 104 H 16 116/72 90 Room Air 09/15/24 06:57 87 09/15/24 02:44 36.7 C 104 H 18 108/77 93 Room Air PG Care Time/CCT Total # of Minutes Spent Total Time Spent with Patient: Total time spent is greater than 50% in coordination of care (as documented) at patient's floor/unit and/or counseling patient: Coding Level of Care Code 54846 SUB INP/OBS CARE 2/35MIN Diagnoses Acute kidney injury N17.9 Kidney transplant status, living unrelated donor Z94.0 Acute exacerbation of CHF (congestive heart failure) I50.9 Heart failure type: unspecified Hypomagnesemia E83.42 Human metapneumovirus (hMPV) pneumonia J12.3 Rhinovirus infection B34.8 Warm autoimmune hemolytic anemia D59.11 (3) Acute exacerbation of CHF (congestive heart failure) Heart failure type: unspecified Qualified Code(s): I50.9 - Heart failure, unspecified
--- NOTE | 2024-09-15 13:28 | Cardiology Consultation ---
Date of Consultation September 15, 2024 Assessment & Plan (1) Chest pain: Given the extensive coronary calcification, he may benefit from diagnostic cath. Will defer this to the [facility] cardiology team who knows him best however. In the meantime-increase rate control with BB, ASA statin (2) Diastolic CHF: attempt rate control, agree with diuretics, but need to watch his renal function given prior renal transplant. (3) Atrial fibrillation with rapid ventricular response: Suspect the AF with RVR is contributing to the diastolic CHF. Would attempt better rate control - can increase the metoprolol dose to am dose as well (max metoprolol is 200mg XL). (4) RBBB (right bundle branch block with left anterior fascicular block): (5) Coronary artery calcification: This is noted on his last CT from July showing dense coronary and aortic calcification. (6) Sleep apnea, obstructive: Untreated, given the size of both atria on last ECHO, suspect this is a significant contributor to the chronic Afib and the hypoxia is also causing issues. History of Present Illness Reason for Consultation: Afib and CHF Attending Physician: Choco Wood MD History of Present Illness This patient is well known to [facility] Soumya and was just seen about 10 days ago. In review of his recent history: Mr. 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 He then presented back to [facility] on 08/24/24 with cough with clear sputum, increasing bilateral lower extremity edema, and shortness of breath -- especially with exertion. This was secondary to an Acute Exacerbation of Chronic Diastolic CHF. Patient had been recently started on Lasix 20 mg daily by nephrology. He came back in to the hospital yesterday with increased SOB as well as chest pressure-he notes that this started after trying to split wood. Echo from 07/14/2024 showed an LVEF of 55% to 60%, right ventricle is mildly dilated, right atrium is severely dilated, left atrium is moderately dilated, mild aortic regurgitation, mild mitral regurgitation, right ventricular systolic pressure is elevated at 30 to 40 mmHg. Moderate concentric LVH noted. Left ventricular systolic function is normal. EKG showed no new ischemic changes, showed A-fib with chronic right bundle branch block. Hgb is about 9. His last admission, was dc on metoprolol xl 100mg q pm. Allergies Allergy/AdvReac Type Severity Reaction Status Date / Time clopidogrel [From Plavix] Allergy Unknown Unknown Verified 09/13/24 08:32 Dwkivua-VHE-PzW Reductase AdvReac Intermediate myalgias Verified 09/13/24 08:32 Inhibitor [Fgaxrco-Nkk-Eas Reductase Inhibitor] Home Medications Medication Instructions Recorded Confirmed Type mycophenolate mofetil 250 mg 500 mg (2 x 250 mg) PO BID #360 05/29/20 09/13/24 Rx capsule caps amoxicillin 500 mg capsule 2,000 mg PO DIRECTED PRN PRIOR 07/29/20 09/13/24 History TO DENTAL PROCEDURES multivitamin 1 tab PO QAM 08/02/21 09/13/24 History folic acid 1 mg tablet 1 mg PO BID #180 tabs 09/20/23 09/13/24 Rx pantoprazole 40 mg tablet,delayed 40 mg PO BID #180 tabs 12/06/23 09/13/24 Rx release calcium carbonate 500 mg PO QAM 01/21/24 09/13/24 History ferrous sulfate 325 mg (65 mg 325 mg PO BID #60 tabs 02/05/24 09/13/24 Rx iron) tablet prednisone 5 mg tablet 5 mg PO DAILY #90 tabs 02/27/24 09/13/24 Rx levothyroxine 125 mcg tablet 125 mcg PO QAM #90 tabs 03/04/24 09/13/24 Rx metoprolol succinate 100 mg 100 mg PO HS #90 tabs 04/22/24 09/13/24 Rx tablet,extended release 24 hr acyclovir 400 mg tablet 400 mg PO BID 05/07/24 09/13/24 History ondansetron 4 mg disintegrating 4 mg PO Q8 PRN nausea #20 tabs 05/22/24 09/13/24 Rx tablet allopurinol 100 mg tablet 200 mg (2 x 100 mg) PO DAILY #60 09/16/24 12/27/24 Rx tabs magnesium oxide 500 mg PO BID 08/09/24 09/13/24 History albuterol sulfate 90 mcg/actuation 2 inh inhalation Q6H PRN shortness 08/25/24 09/13/24 Rx aerosol inhaler of breath or wheezing #8.5 grams tacrolimus 1 mg capsule, 1 - 2 mg PO UD 08/30/24 09/13/24 History immediate-release bumetanide 1 mg tablet 1 mg PO QAM #90 tabs 09/05/24 09/13/24 Rx danazol 200 mg capsule 200 mg PO BID 09/13/24 09/13/24 History Patient History Medical History Diarrhea Hypocalcemia Weakness Anemia Elevated troponin Atrial fibrillation with rapid ventricular response Hypotension Acute diarrhea Heart failure with preserved ejection fraction Hypomagnesemia Encounter for pre-operative examination History of non-ST elevation myocardial infarction (NSTEMI) entered into chart 01/2023 Osteoporosis Hypothyroidism Hyperlipidemia Hx of esophageal reflux controlled, stable per pt 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 Abdominal aortic aneurysm 4.9 cm on 01/2023 chest CTA History of colon polyps Retroperitoneal mass lesion biopsy negative for malignancy 05/2022 per transplant record 03/17/23 Pneumonia HX Adrenal nodule monitored by PCP Arthritis On prednisone therapy Atrial fibrillation controlled w/ metoprolol, no cardio Rosales's esophagus with esophagitis Atrial flutter unaware 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 Sleep apnea no device Thoracic ascending aortic aneurysm 4.[address] 01/19/24 Hypertension controlled, stable per pt Limb alert care status left arm restriction History of blood transfusion 01/2024 Hx of herpetic maria History of COVID-19 07/2020- covid pneumonia, hospitalized; resolved History of renal dialysis prior to kidney transplant; has dialysis fistula left arm History of CVA (cerebrovascular accident) 2008, mild memory changes Surgical History Hx of kidney transplant 02/2010- [email or web address], [place], [place] History of esophagogastroduodenoscopy (EGD) Hx of cholecystectomy Hx of exploratory laparotomy History of colonoscopy Family History Grandmother (Maternal) Alzheimer disease Mother Depression Denies family history of Ovarian cancer Prostate cancer Diabetes Heart disease Myocardial infarction Breast cancer Lung cancer COPD (chronic obstructive pulmonary disease) Colorectal cancer Hypertension Stroke Social History Smoking Status: Never smoker Second Hand Exposure: No; Do You Dip or Chew Tobacco: No; Hx Alcohol Use: No Hx Substance Use: No 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: Ukrainian Communication Ability: Effective Visual Impairment: No Limitations Hearing Ability: Normal Wheel Blocker Required: No Beliefs That Will Affect Care: None marital status: Current Living Situation: Spouse current occupational status: employed current occupation: [employer] How many Children do You have: 1 Feels Safe at Home: Yes Childhood Exposure to Second-Hand Smoke: No Dental Care, Regularly: Yes Seatbelt Use: sometimes Sunscreen Use: No Assistive Devices: Cane and Walker Review of Systems Review of Systems: All systems reviewed & are unremarkable except as noted in HPI & below Physical Exam Physical Exam: appears much older than stated age Neck: +JVD Respiratory: rales at bases Cardiovascular: irregular, tachy Gastrointestinal (Abdomen): obese Results & Data Vital Signs (Past 12 Hours) Vital Signs Temp Pulse Pulse Resp BP Pulse Ox O2 Del Method 09/15/24 12:13 36.5 C 93 H 16 96/64 L 99 Room Air 09/15/24 10:20 Room Air 09/15/24 07:57 36.8 C 104 H 16 116/72 90 Room Air 09/15/24 06:57 87 09/15/24 02:44 36.7 C 104 H 18 108/77 93 Room Air Laboratory Results Abnormal lab results 09/15/24 Range/Units 04:16 RBC 2.57 L (4.70-6.10) M/uL Hgb 9.3 L (14.0-18.0) g/dl Hct 27.9 L (42.0-52.0) % MCV 108.6 H (80.0-100.0) fL MCH 36.2 H (25.0-34.0) pg RDW Std Deviation 62.5 H (36.4-46.3) fL RDW Coeff of Jaye 15.9 H (11.5-14.5) % Sodium 132 L (136-145) mmol/L BUN 61 H (6-23) mg/dl Creatinine 2.12 H (0.6-1.4) mg/dl BUN/Creatinine Ratio 28.8 H (10-20) Glucose 123 H (70-99(Fasting)) mg/dl Medications Administered Current Inpatient Medications Acetaminophen (Acetaminophen 325 Mg Tab) 650 mg PO Q4H PRN PRN Reason: Pain or Fever Stop: 10/15/24 05:30 Last Admin: 09/15/24 05:48 Dose: 650 mg Acyclovir (Acyclovir 400 Mg Tab) 400 mg PO BID [facility] Stop: 10/13/24 20:59 Last Admin: 09/15/24 08:47 Dose: 400 mg Albuterol (Albuterol Hfa 8 Gm Inhaler) 2 puffs INH Q6H PRN PRN Reason: shortness of breath or wheezing Stop: 10/13/24 12:21 Allopurinol (Allopurinol 100 Mg Tab) 200 mg PO DAILY [facility] Stop: 10/13/24 12:21 Last Admin: 09/15/24 08:46 Dose: 200 mg Bumetanide (Bumetanide 1 Mg Tab) 1 mg PO QAM [facility] Stop: 10/14/24 08:59 Last Admin: 09/14/24 09:51 Dose: 1 mg Calcium Carbonate (Calcium Carbonate 1250mg Tab) 1 tab PO QAM [facility] Stop: 10/14/24 08:59 Last Admin: 09/15/24 08:46 Dose: 1 tab Baum Syrup (Baum Syrup 5 Ml Udp) 5 ml PO Q6 [facility] Stop: 09/24/24 17:59 Last Admin: 09/15/24 11:23 Dose: 5 ml Digoxin (Digoxin 0.25 Mg Tab) 0.25 mg PO DAILY@1600 [facility] Stop: 10/15/24 15:59 Ferrous Sulfate (Ferrous Sulfate 325 Mg Tab) 325 mg PO BID17 [facility] Stop: 10/13/24 16:59 Last Admin: 09/15/24 08:46 Dose: 325 mg Folic Acid (Folic Acid 1 Mg Tab) 1 mg PO BID [facility] Stop: 10/13/24 20:59 Last Admin: 09/15/24 08:47 Dose: 1 mg Hydrocortisone Sodium (Succinate 25 mg/ Syringe) 0.5 mls @ 4 mls/min IV Q8H [facility] Stop: 10/14/24 10:29 Last Admin: 09/15/24 10:30 Dose: 4 mls/min Levothyroxine Sodium (Levothyroxine Sodium 125 Mcg Tablet) 125 mcg PO DAILYBB [facility] Stop: 10/14/24 06:29 Last Admin: 09/15/24 05:25 Dose: 125 mcg Magnesium Oxide (Magnesium Oxide 400 Mg Tab) 400 mg PO BID [facility] Stop: 10/13/24 20:59 Last Admin: 09/14/24 20:22 Dose: 400 mg Melatonin (Melatonin 3 Mg Tab) 3 mg PO HS PRN PRN Reason: Insomnia Stop: 10/13/24 12:21 Metoprolol Succinate (Metoprolol Succ 50mg Ext Rel Tab) 100 mg PO HS [facility] Stop: 10/13/24 20:59 Last Admin: 09/14/24 22:02 Dose: 100 mg Miconazole Nitrate (Miconazole Nitrate Powder 85 Gm) 1 appln EXT BID [facility] Stop: 10/13/24 23:53 Last Admin: 09/15/24 08:47 Dose: 1 appln Multivitamins (Multivitamin Tab) 1 tab PO QAM [facility] Stop: 10/14/24 08:59 Last Admin: 09/15/24 08:49 Dose: Not Given Mycophenolate Mofetil (Mycophenolate Mofetil 250 Mg Cap) 500 mg PO BID [facility] Stop: 10/13/24 12:21 Last Admin: 09/15/24 08:46 Dose: 500 mg Nitroglycerin (Nitroglycerin Sl 0.4 Mg/Tab Tab) 0.4 mg SL Q5M PRN PRN Reason: Chest Pain Stop: 10/13/24 08:48 Last Admin: 09/13/24 09:02 Dose: 0.4 mg Pantoprazole Sodium (Pantoprazole 40 Mg Tab) 40 mg PO BID [facility] Stop: 10/13/24 12:21 Last Admin: 09/15/24 08:47 Dose: 40 mg Polyethylene Glycol (Polyethylene (Miralax) 17 Gm Pack) 17 gm PO DAILY PRN PRN Reason: Constipation Stop: 10/13/24 12:21 Prednisone (Prednisone 5 Mg Tab) 5 mg PO DAILY [facility] Stop: 10/13/24 12:21 Last Admin: 09/14/24 07:56 Dose: 5 mg Tacrolimus (Tacrolimus 1 Mg Cap) 1 mg PO HS [facility] Stop: 10/13/24 20:59 Last Admin: 09/14/24 20:22 Dose: 1 mg Tacrolimus (Tacrolimus 1 Mg Cap) 2 mg PO QAM [facility] Stop: 10/13/24 12:29 Last Admin: 09/15/24 08:48 Dose: 2 mg Vancomycin HCl (Vancomycin Hcl 125 Mg/2.5ml Soln) 125 mg PO Q6 [facility] Stop: 09/24/24 17:59 Last Admin: 09/15/24 11:23 Dose: 125 mg ECG Additional Comments: Afib with RVR RBBB LAD (2) Diastolic CHF Heart failure chronicity: chronic Qualified Code(s): I50.32 - Chronic diastolic (congestive) heart failure
[2024-09-15] MEDS: DIGOXIN 0.25 MG TAB PO SCH (17:11)
--- NOTE | 2024-09-16 07:12 | Oncology Consultation ---
Date of Consultation September 16, 2024 Assessment & Plan (1) Warm autoimmune hemolytic anemia: (2) Atrial fibrillation with rapid ventricular response: (3) Acute kidney injury: Plan Appears to be doing well from an AIHA standpoint. LDH within normal limits. His baseline hemoglobin usually ranges between 8-9. Current hemoglobin is 9 within baseline. Was scheduled to receive Velcade injection tomorrow. If he is still in the hospital tomorrow, plan to delay until he is discharged.He can continue with danazol. History of Present Illness Reason for Consultation: Warm autoimmune hemolytic anemia Attending Physician: Shabana Prieto MD History of Present Illness 63-year-old gentleman with history of end-stage renal disease status post kidney transplant, AIHA followed by Dr. Gonsalez currently on treatment with Velcade every 2 weeks, danazol and low-dose prednisone. He presented with acute on chronic co ngestive heart failure and KRISSY.Has done well clinically since admission with improvement in symptoms. Allergies Allergy/AdvReac Type Severity Reaction Status Date / Time clopidogrel [From Plavix] Allergy Unknown Unknown Verified 09/13/24 08:32 Ykhyubq-NNQ-LcO Reductase AdvReac Intermediate myalgias Verified 09/13/24 08:32 Inhibitor [Omggtmo-Hmp-Kwq Reductase Inhibitor] Home Medications Medication Instructions Recorded Confirmed Type mycophenolate mofetil 250 mg 500 mg (2 x 250 mg) PO BID #360 05/29/20 09/13/24 Rx capsule caps amoxicillin 500 mg capsule 2,000 mg PO DIRECTED PRN PRIOR 07/29/20 09/13/24 History TO DENTAL PROCEDURES multivitamin 1 tab PO QAM 08/02/21 09/13/24 History folic acid 1 mg tablet 1 mg PO BID #180 tabs 09/20/23 09/13/24 Rx pantoprazole 40 mg tablet,delayed 40 mg PO BID #180 tabs 12/06/23 09/13/24 Rx release calcium carbonate 500 mg PO QAM 01/21/24 09/13/24 History ferrous sulfate 325 mg (65 mg 325 mg PO BID #60 tabs 02/05/24 09/13/24 Rx iron) tablet prednisone 5 mg tablet 5 mg PO DAILY #90 tabs 02/27/24 09/13/24 Rx levothyroxine 125 mcg tablet 125 mcg PO QAM #90 tabs 03/04/24 09/13/24 Rx metoprolol succinate 100 mg 100 mg PO HS #90 tabs 04/22/24 09/13/24 Rx tablet,extended release 24 hr acyclovir 400 mg tablet 400 mg PO BID 05/07/24 09/13/24 History ondansetron 4 mg disintegrating 4 mg PO Q8 PRN nausea #20 tabs 05/22/24 09/13/24 Rx tablet allopurinol 100 mg tablet 200 mg (2 x 100 mg) PO DAILY #60 06/03/24 09/13/24 Rx tabs magnesium oxide 500 mg PO BID 08/09/24 09/13/24 History albuterol sulfate 90 mcg/actuation 2 inh inhalation Q6H PRN shortness 08/25/24 09/13/24 Rx aerosol inhaler of breath or wheezing #8.5 grams tacrolimus 1 mg capsule, 1 - 2 mg PO UD 08/30/24 09/13/24 History immediate-release bumetanide 1 mg tablet 1 mg PO QAM #90 tabs 09/05/24 09/13/24 Rx danazol 200 mg capsule 200 mg PO BID 09/13/24 09/13/24 History Patient History Medical History Diarrhea Hypocalcemia Weakness Anemia Elevated troponin Atrial fibrillation with rapid ventricular response Hypotension Acute diarrhea Heart failure with preserved ejection fraction Hypomagnesemia Encounter for pre-operative examination History of non-ST elevation myocardial infarction (NSTEMI) entered into chart 01/2023 Osteoporosis Hypothyroidism Hyperlipidemia Hx of esophageal reflux controlled, stable per pt 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 Abdominal aortic aneurysm 4.9 cm on 01/2023 chest CTA History of colon polyps Retroperitoneal mass lesion biopsy negative for malignancy 05/2022 per transplant record 03/17/23 Pneumonia HX Adrenal nodule monitored by PCP Arthritis On prednisone therapy Atrial fibrillation controlled w/ metoprolol, no cardio Rosales's esophagus with esophagitis Atrial flutter unaware 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 Sleep apnea no device Thoracic ascending aortic aneurysm 4.[address] 01/19/24 Hypertension controlled, stable per pt Limb alert care status left arm restriction History of blood transfusion 01/2024 Hx of herpetic maria History of COVID-19 07/2020- covid pneumonia, hospitalized; resolved History of renal dialysis prior to kidney transplant; has dialysis fistula left arm History of CVA (cerebrovascular accident) 2008, mild memory changes Surgical History Hx of kidney transplant 02/2010- [place] History of esophagogastroduodenoscopy (EGD) Hx of cholecystectomy Hx of exploratory laparotomy History of colonoscopy Family History Grandmother (Maternal) Alzheimer disease Mother Depression Denies family history of Ovarian cancer Prostate cancer Diabetes Heart disease Myocardial infarction Breast cancer Lung cancer COPD (chronic obstructive pulmonary disease) Colorectal cancer Hypertension Stroke Social History Smoking Status: Never smoker Second Hand Exposure: No; Do You Dip or Chew Tobacco: No; Hx Alcohol Use: No Hx Substance Use: No 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: Mohawk Communication Ability: Effective Visual Impairment: No Limitations Hearing Ability: 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 Beliefs That Will Affect Care: None marital status: Current Living Situation: Spouse current occupational status: employed current occupation: [employer] How many Children do You have: 1 Feels Safe at Home: Yes Childhood Exposure to Second-Hand Smoke: No Dental Care, Regularly: Yes Seatbelt Use: sometimes Sunscreen Use: No Assistive Devices: Cane and Walker Results & Data Vital Signs (Past 12 Hours) Vital Signs Temp Pulse Resp BP Pulse Ox O2 Del Method 09/16/24 03:55 36.3 C L 82 16 115/73 92 Room Air 09/15/24 23:36 36.6 C 89 18 108/71 99 Room Air 09/15/24 19:44 36.6 C 84 16 94/62 L 97 Room Air 09/15/24 19:20 Room Air
[2024-09-16 07:15] LABS: Hematocrit (blood only) 27.7 % (42.0-52.0); Mean Corpuscular Hemoglobin 35.4 pg (25.0-34.0); Mean Corpuscular Hgb Conc 32.5 g/dL (32.0-36.0); Mean Corpuscular Volume 109.1 fL (80.0-100.0); Mean Platelet Volume 10.5 fL (9.4-12.4); Platelet Count 162 K/uL (130-400); RDW Coefficient of Variation 15.6 % (11.5-14.5); RDW Standard Deviation 61.9 fL (36.4-46.3); Red Blood Count 2.54 M/uL (4.70-6.10); White Blood Count 8.62 K/ul (4.8-10.8)
[2024-09-16 07:36] LABS: Eosinophils # (auto) 0.03 K/uL (0.00-0.50); Eosinophils % (auto) 0.3 %; Immature Granulocytes # (auto) 0.05 K/uL (0.01-0.20); Immature Granulocytes % (auto) 0.6 %; Lymphocytes # (auto) 0.14 K/uL (1.20-3.40); Lymphocytes % (auto) 1.6 %; Monocytes # (auto) 0.35 K/uL (0.11-0.59); Monocytes % (auto) 4.1 %; Neutrophils # (auto) 8.05 K/uL (1.40-6.50); Neutrophils % (auto) 93.4 %
[2024-09-16 07:38] LABS: BUN Creatinine Ratio 27.9 (10-20); Calcium 9.1 mg/dl (8.6-10.3); Creatinine Clr Calc Pharmacy 36.9 ml/min; Magnesium 2.1 mg/dl (1.7-2.4); Potassium 4.6 mmol/L (3.5-5.1)
--- NOTE | 2024-09-16 07:53 | Hospitalist Progress Note ---
<Statement entered by Shabana Prieto MD - 09/16/24 19:18> I have reviewed vital signs, chart notes, labs and imaging. I have also discussed the management of the patient with the KELLY and I agree with the exam findings documented in the history and physical examination and the documented assessment and plan unless otherwise stated below. 63-year-old man with renal transplant admitted with heart failure exacerbation A-fib, KRISSY. complex medical problems A-fib with rate now well controlled on metoprolol, diuretics and fluids held currently, plan to monitor urine output and creatinine for his hemolytic anemia hemoglobin is at baseline appreciate consultation by Dr. Gonsalez, plan to continue danazol Date of Service September 16, 2024 Assessment & Plan (1) Acute on chronic diastolic (congestive) heart failure: (2) Acute kidney injury: (3) Elevated troponin: Plan 63-year-old male with past medical history significant for HFpEF, A-fib, ESRD, WAHA, and additional chronic medical conditions who is presenting for sudden onset of chest pain with shortness of breath after exertion. Pain has been unresolved, but has minimized since utilizing nitroglycerin. Patient's troponin was elevated upon admission, but EKG was without ischemic changes only revealing A-fib. Patient does appear to be mildly volume overloaded but also in setting of KRISSY on admission. #Chest pain/Acute on chronic exacerbation of HFpEF -presentation with increased SOB/CP with mild volume overload with pitting edema and crackles in lungs despite weight down to 100.7kg much better than discharge this month. Do not suspect CAD given stable troponin elevation half of what was prior but cannot r/o underlying disease. Volume overload on exam and CXR c/w volume overload w/ prominence of interstitial markings Lasix 40mg IV in ER/nitro drip w resolution in CP however suspect hypotension leading to worsened renal function and was provided bumex 1mg PO on 09/14 but held following EKG on admission w/ Afib, rates 99bpm but suspect was higher however no palpitations. Also had mag 1.5, which could have worsened such and has been replaced NO FURTHER CHEST PAIN 09/15-09/16 - suspected 2nd to elevated HR as above causing acute CHF exacerbation. Dig added 09/14 for rate control with improvement but worsened renal function. Discussed w/ cards as consult placed and would NOT continue this at dc w/ his renal function. - Metoprolol 100mg HS PO continued - Added metoprolol 25mg PO QAM daily - Continue to HOLD BUMEX for Cr 2.29 however urine lightening in urinal and suspect able to resume 09/17 but will monitor weight/volume status and renal function prior to resuming. Appreciate recs/assistance by nephrology - Weight stable, 97% on RA BP 96/64 this afternoon 09/16 with metoprolol but HR 70-80s and will continue to monitor on telemetry/titrate as able/needed for rate control. Appreciate recs/assitance from cardiology PT/OT consults pending #A-fib, permanent - rate controlled reported on admission however have suspicion not well rate controlled, see prior admissions w/ need for IV dig/cardizem, etc. Not on AC 2nd to below/anemia/bleeding in the past - Mag IV replacement provided and stable 2.1 on labs. K stable. TSH wnl - Continues metoprolol 100mg HS - Dig added 09/14 with SIGNIFICANT improvement in HR, continued but cardiology consulted and added metoprolol 25mg QAM as above and holding OFF further digoxin as outlined - Continue to monitor on telemetry, titrate BB as able/needed for HR control - ENCOURAGE CPAP discussion w/ PCP to consider use which would be helpful - rec f/u with rheumatologist at dc to consider retrial of Xarelto #KRISSY/ESRD s/p renal transplant 2009 with baseline Cr 1.3-1.4 , hx FSGS on taclolimus/mycophenolate/prednisone daily at baseline -KRISSY on admission w/ Cr 1.8 suspected 2nd to increased diuretic dose from last admission, however also could be from diarrheal losses as well and bumex on hold/appreciate nephrology consult -dig placed on hold, will dc -PO hydration encouraged and urine lightening up -Avoid nephrotoxins/renal dose meds as able -BMP in AM #Cdiff Patient w/ reports of loose stool 09/14, biofire/cdiff testing w/ +gene but negative toxin and initially deferred on starting treatment however increased diarrhea to 8+ yellow/liquid seedy foul bowel movements with abdominal discomfort and started on Vancomycin PO 09/14 with improvement in diarrhea/slowing and starting to form up (denied blood in stool) -Isolation precautions in place, mag oxide placed on hold to prevent worsening diarrhea -Did get stress IV HC for chronic prednisone use w/ illness, back to prednisone now that diarrhea resumed -Rec to complete Vanco PO course at [facility] #Warm autoimmune hemolytic anemia Dx 2023; Follows with hematology most recent visit 08/20/2024; IVIG; Velcade -WBC 12.3 k on admission, on chronic steroids. MCV 112, TB 2 -Continues on iron/folic acid/acyclovir -Prednisone 5mg PO daily placed on hold and given +cdiff and hypotension issues had placed on HC IV 25mg Q8H x48hr and now w/ improvement in diarrhea and HR control resumed back prednisone 5mg daily and will monitor -LDH NOT elevated -Heme/onc consult appreciated, danazol resumed/pharmacy ordering as nonformulary and will have for tomorrow. Patient reports starting this earlier this month with Dr Gonsalez. -- Will need rescheduled for his Veclade injection as was to get 09/17. #Sleep apnea No CPAP at baseline - suspect would beneift from use if agreeable to help with his underlying afib. 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 - no reflux reported today and remains on protonix once daily. cdiff gene positive but toxin negative and will monitor. #Gout Allopurinol ,prednisone daily at baseline - HC IV as above now back on prednisone. pain improved/monitor w/ resumption of diuretics as could make worse #Hypothyroidism TSH wnl earlier this month. - Levothyroxine continued #low back pain - did have hip replacement earlier this year, some right leg weakness w/ dorsiflexion/plantar flexion. Lumbar spine xray negative but does note T12 compression deformity. improvement in sx. PT/OT consults have been placed and seems to be improving. VTE Prophylaxis: SCDs , chemoproph deferred w/ hx anemia. Dispo: continued inpatient stay, metoprolol increased for afib/HR control, dig placed on hold. Bumex remains on hold but possible resumption (maybe even reduction in dose pending volume status). Will need rescheduled for his Veclade injection at [facility]. PT/OT consults pending. Admission and Anticipated Discharge Date Admission Date: September 13, 2024 Subjective EVal this morning, sitting up in the chair. Reports feeling better. No further significant diarrhea. Leg edema stable/improved. Metoprolol PO started for this morning, HRs improved with dig but discussed given renal function would stop this medication. Urine concentrated but lightening up. Ankle discomfort slightly improved. Back on usual prednisone. Seen by nephro and he reports to hold bumex for today, will see about resumption in AM but discussed suspect need better HR control as likely cause for his exacerbation w/ uncontrolled rates. Will see how rates are with activity as well, possible dc next 124-48 hours. Seen by oncology he reports, note not yet in but reports arranging tx later this week if dc. No further CP at this time. Questions/concerns addressed . Physical Exam 2 Physical Exam: General: 63yo male sitting up in chair this morning, NAD, reports feeling little better, urine lightening up,yellow but still concentrated urine Head atraumatic, normocephalic, mmm, trachea midline Resp: even/unlabored, no wheezing/crackles, on room air 97% CV: irregularly irregular but ratesMUCH improved overall, trace pedal edema (stable/improved), ankle edema but pulses present GI: +BS, soft/NT no rainey MSK/Neuro: answering questions appropriately, Psych: alert/oriented to person, place, sometimes issues with year but cooperative/pleasant Results & Data Results & Data Vital Signs (Past 12 Hours) Vital Signs Temp Pulse Pulse Resp BP Pulse Ox O2 Del Method 09/16/24 07:21 83 09/16/24 03:55 36.3 C L 82 16 115/73 92 Room Air 09/15/24 23:36 36.6 C 89 18 108/71 99 Room Air Laboratory Results 09/16/24 06:30 09/16/24 06:30 PG Care Time/CCT Total # of Minutes Spent Total Time Spent with Patient: Total time spent is greater than 50% in coordination of care (as documented) at patient's floor/unit and/or counseling patient: Coding Level of Care Code 20298 SUB INP/OBS CARE 3/50MIN Diagnoses Acute on chronic diastolic (congestive) heart failure I50.33 Acute kidney injury N17.9 Elevated troponin R79.89
--- NOTE | 2024-09-16 08:23 | Nephrology Progress Note ---
Date of Service September 16, 2024 Assessment & Plan (1) Acute kidney injury: Plan: * KRISSY due to CHF * Improved following diuresis but recently patient had large volume loss related to diarrhea * Agree w/ holding diuretic for now * Patient has clear lung acuna on exam. SaO2 is 99% on RA. Creatinine has stabilized at 2.2. Electrolyte balance is acceptable * Monitor BMP, UO, volume status (2) Kidney transplant status, living unrelated donor: Plan: * LURT due to FSGS * Baseline Cr 1.4 * Continue tacrolimus, mycophenolate, prednisone (3) Acute exacerbation of CHF (congestive heart failure): Plan: * Resolved (4) Hypomagnesemia: Plan: * Resolved (5) Warm autoimmune hemolytic anemia: Plan: * Hgb relatively stable at 9.0 * Velcade, IVIG as per oncology Admission and Anticipated Discharge Date Admission Date: September 13, 2024 Subjective Mr. Mandel was evaluated in his hospital room this morning. He reports that diarrhea is improving. He had only 3 loose BM yesterday. He is trying to maintain adequate oral hydration. Review of Systems Constitutional: no fever Eyes: no problem reported Ear, Nose, Mouth, Throat: no problem reported Respiratory: no cough and no dyspnea Cardiovascular: no chest pain Gastrointestinal: + diarrhea/loose stools; no abdominal pa in, no nausea and no vomiting Genitourinary: no urinary hesitancy Integumentary: no rash Physical Exam Constitutional: not in distress Eyes: PERRL, conjunctivae normal, anicteric sclerae ENMT: external ear and nose normal, oropharynx normal Neck: trachea midline, no thyromegaly Respiratory: normal respiratory effort, lungs clear to auscultation Cardiovascular: Rate/Rhythm: regular rate and regular rhythm Extremities: + edema (1+ pretibial edema of RLE) Gastrointestinal (Abdomen): normal bowel sounds, soft, nontender, no hepatosplenomegaly Neurologic: awake; not confused Results & Data Vital Signs (Past 12 Hours) Vital Signs Temp Pulse Pulse Resp BP Pulse Ox O2 Del Method 09/16/24 08:07 36.5 C 77 16 102/65 99 Room Air 09/16/24 07:21 83 09/16/24 03:55 36.3 C L 82 16 115/73 92 Room Air 09/15/24 23:36 36.6 C 89 18 108/71 99 Room Air Laboratory Results Laboratory Results - last 24 hr 09/16/24 06:30 WBC 8.62 RBC 2.54 L Hgb 9.0 L Hct 27.7 L MCV 109.1 H MCH 35.4 H MCHC 32.5 RDW Std Deviation 61.9 H RDW Coeff of Jaye 15.6 H Plt Count 162 MPV 10.5 Immature Gran % (Auto) 0.6 Neut % (Auto) 93.4 Lymph % (Auto) 1.6 [place] % (Auto) 4.1 Eos % (Auto) 0.3 Baso % (Auto) 0.0 Neut # (Auto) 8.05 H Lymph # (Auto) 0.14 L [place] # (Auto) 0.35 Eos # (Auto) 0.03 Baso # (Auto) 0.00 Immature Gran # (Auto) 0.05 Sodium 134 L Potassium 4.6 Chloride 99 Carbon Dioxide 26 Anion Gap 9 BUN 64 H Creatinine 2.29 H Est Cr Clr Drug Dosing 36.9 eGFR 31.29 BUN/Creatinine Ratio 27.9 H Glucose 112 H Calcium 9.1 Magnesium 2.1 Iron 57 TIBC 227 L Transferrin 162 L Transferrin % Sat 25 Ferritin 1311.0 H Lactate Dehydrogenase 184 Vitamin B12 462 PG Care Time/CCT Total # of Minutes Spent Total Time Spent with Patient: Total time spent is greater than 50% in coordination of care (as documented) at patient's floor/unit and/or counseling patient: Coding Level of Care Code 69032 SUB INP/OBS CARE 3/50MIN Diagnoses Acute kidney injury N17.9 Kidney transplant status, living unrelated donor Z94.0 Acute exacerbation of CHF (congestive heart failure) I50.9 Heart failure type: unspecified Hypomagnesemia E83.42 Warm autoimmune hemolytic anemia D59.11 (3) Acute exacerbation of CHF (congestive heart failure) Heart failure type: unspecified Qualified Code(s): I50.9 - Heart failure, unspecified
[2024-09-16] MEDS: METOPROLOL SUCC 25MG EXT REL TAB PO SCH (09:24)
--- NOTE | 2024-09-17 08:05 | Hospitalist Progress Note ---
Date of Service September 17, 2024 Assessment & Plan (1) Acute on chronic diastolic (congestive) heart failure: (2) Acute kidney injury: (3) Elevated troponin: (4) Atrial fibrillation: (5) Clostridioides difficile diarrhea: (6) Gout: Plan 63-year-old male with past medical history significant for HFpEF, A-fib, ESRD, WAHA, and additional chronic medical conditions who is presenting for sudden onset of chest pain with shortness of breath after exertion following eating out at [employer] followed by increased activity with cutting wood and developed chest pain. Troponin with mild elevation on admission, EKG without ischemic changes but noting afib with rate 99bpm . CXR w/ evidence for overload and was provided IV lasix/nitro on admission with improvement/resolution. Do not suspect CAD given stable troponin but cannot r/o underlying disease as unable to tolerate aspirin/AC for such. Also with KRISSY, likely 2nd to hypotension/hypoperfusion and increased diuretic use recently. Weight was down on admission compared to dc last month. review of chart appears patient w/ consistent high HR w/ permanent afib -- suspect contributing/causing acute on chronic CHF with increased salt load/increased activity #Acute on chronic exacerbation of HFpEF IMPROVED however DRY on exam today and suspect 2nd to diarrheal losses from + cdiff testing Bumex remains on HOLD, DRY ON EXAM, 1L NSS per nephrology. Continue metoprolol 100mg HS, Dig now discontinued given renal function Metoprolol 25mg QAM added 09/16 with IMPROVEMENT in rates/stable BP 127/83 with improvement in rates Weight DOWN with HR control despite IV steroids as well 101.2kg, do have some volume loss from diarrhea/positive cdiff testing Monitor w/ prednisone as below Monitor weight/volume status in AM Continued tele monitoring #A-fib, permanent/hx hypomagnesemia Rate controlled reported on admission however have suspicion not well rate controlled, see prior admissions w/ need for IV dig/cardizem, etc. Not on AC 2nd to below/anemia/bleeding in the past. Not on CPAP which likely doesn't help and also had low mag 1.5 on admission. Mag replacement for 1.5 on admission w/ improvement and has been stable. -Did place mag oxide on hold to prevent worsened diarrhea losses Dig prior added as above but with renal impairment consulted cards and held/discontinued and metoprolol increased as outlined and will monitor/increase as needed/tolerated w/ BP Mag/K replacement as needed, continued tele monitoring Consideration for AC discussion w/ heme/onc in f/u given below #Chest pain no further CP, suspect 2nd to above. Troponin trended down with improvement in HR/tx magnesium and suspect demand ischemia from elevated HR. Defer diagnostic cath for eval to primary cardiology team #KRISSY/ESRD/Gout s/p renal transplant 2009 with baseline Cr 1.3-1.4 , hx FSGS On taclolimus/mycophenolate/prednisone daily at baseline Cr 1.8 ?ATN/hypotension vs overdiuresis w/ increased bumex recently and weight down on admission Nephrology consulted, dig stopped 1L IVF as above for continued renal impairment 2nd to diarrhea/dehydration. Urine cx negative Uric acid checked, elevated 9.7. Prednisone 20mg PO x 1 now, will continue daily/monitor repeat in AM Renal dose meds/avoid toxins and monitor BMP in AM #Cdiff Reported loose stool 09/14, biofire/cdiff testing w/ +gene but negative toxin and initially deferred on starting treatment however increased diarrhea to 8+ yellow/liquid seedy foul bowel movements with abdominal discomfort and started on Vancomycin PO 09/14 with improvement in diarrhea/slowing and starting to form up (denied blood in stool) Isolation precautions, back on prednisone 5mg daily however increased for suspected gout flare Continue Vanco PO, monitor volume status. Electrolyte replacement as needed #Warm autoimmune hemolytic anemia Dx 2023; Follows with hematology most recent visit 08/20/2024; IVIG; Velcade WBC 12.3 k on admission, on chronic steroids. MCV 112, TB 2 Continues on iron/folic acid/acyclovir, prednisone 5mg at baseline but got 48hr 25mg IV HC for stress w/ hypotension/+stool testing w/ improvement LDH NOT elevated Need reschedule Veclade outpt as to get 09/17, see note.danazol resumed/pharmacy ordering as nonformulary and will have for tomorrow-Patient reports starting this earlier this month with Dr Gonsalez. 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 Increased discomfort off IV steroids, prenidone 20mg PO x 1 and checked uric acid above and will monitor. Would avoid colchicine to prevent worsened diarrhea #Hypothyroidism TSH wnl earlier this month. Levothyroxine continued #low back pain - did have hip replacement earlier this year, some right leg weakness w/ dorsiflexion/plantar flexion. Lumbar spine xray negative but does note T12 compression deformity. improvement in sx. PT/OT consults have been placed and seems to be improving. Tx possible gout as above/monitor. F/u therapy evals VTE Prophylaxis: SCDs , chemoproph deferred w/ hx anemia. Dispo: continued inpatient stay, metoprolol has been increased, bumex on hold. 1L IVF for dehydration/volume down and continue Vanco/monitor volume status. F/u therapy evals, possible dc next 24-48 hours pending response to treatment/repeat labs. Admission and Anticipated Discharge Date Admission Date: September 13, 2024 Subjective Eval this morning, resting in chair, wanting to get back to bed. Breathing stable/improved, on room air 98%. Weight down. HR improved on metoprolol and BP stable on such. Will continue/titrate as needed. Does have some increased ankle edema/pain out of proportion to exam on right ankle since back on usual prednisone and will check uric acid given hx gout, additional dose prednisone and consideration for 0.5-1L IVF to help flush out kidneys but will touch base with nephrology prior as reports someone in this morning, possibly Dr Mccormick. Physical Exam 2 Physical Exam: General: 63yo male sitting up in chair this morning, NAD, reports feeling little better, urine lightening up, but having pain his his ankles (primarily the right ankle, tenderness out of proportion to exam, ?hx gout) Head atraumatic, normocephalic, mm improved/slightly dry, trachea midline Resp: even/unlabored, no wheezing/crackles, on room air 97% CV: irregularly irregular but rates MUCH improved overall, trace pedal edema/ankles as above but no pitting edema GI: +BS, soft/NT no rainey MSK/Neuro: answering questions appropriately, Psych: alert/oriented to person, place, cooperative with exam Results & Data Results & Data Vital Signs (Past 12 Hours) Vital Signs Temp Pulse Resp BP Pulse Ox O2 Del Method 09/17/24 07:34 Room Air 09/17/24 04:28 36.4 C L 78 20 130/81 99 Room Air 09/17/24 00:21 36.5 C 83 20 107/74 95 Room Air 09/16/24 21:15 Room Air 09/16/24 20:22 36.4 C L 78 20 107/69 97 Room Air Laboratory Results 09/17/24 07:54 09/17/24 07:54 Mag 2.0 Uric acid 9.2 TB 1.3, AST/ALT/ALP wnl PG Care Time/CCT Total # of Minutes Spent Total Time Spent with Patient: Total time spent is greater than 50% in coordination of care (as documented) at patient's floor/unit and/or counseling patient: Coding Level of Care Code 66754 SUB INP/OBS CARE 3/50MIN Diagnoses Acute on chronic diastolic (congestive) heart failure I50.33 Acute kidney injury N17.9 Elevated troponin R79.89 Atrial fibrillation I48.91 Clostridioides difficile diarrhea A04.72 Gout M10.9
[2024-09-17 08:15] LABS: Hematocrit (blood only) 29.3 % (42.0-52.0); Hemoglobin 9.5 g/dl (14.0-18.0); Mean Corpuscular Hemoglobin 35.3 pg (25.0-34.0); Mean Corpuscular Hgb Conc 32.4 g/dL (32.0-36.0); Mean Corpuscular Volume 108.9 fL (80.0-100.0); Mean Platelet Volume 10.1 fL (9.4-12.4); Platelet Count 200 K/uL (130-400); RDW Coefficient of Variation 15.9 % (11.5-14.5); RDW Standard Deviation 63.2 fL (36.4-46.3); Red Blood Count 2.69 M/uL (4.70-6.10); White Blood Count 7.05 K/ul (4.8-10.8)
[2024-09-17 08:32] LABS: Albumin Globulin Ratio 0.8 (0.9-2); Albumin Level 3.3 gm/dl (3.4-5.0); BUN Creatinine Ratio 30.7 (10-20); Bilirubin,Total 1.3 mg/dl (0.2-1.0); Calcium 9.2 mg/dl (8.6-10.3); Creatinine Clr Calc Pharmacy 36.5 ml/min; Potassium 4.4 mmol/L (3.5-5.1); Total Protein 7.3 gm/dl (6.0-8.3)
--- NOTE | 2024-09-17 08:49 | Nephrology Progress Note ---
Date of Service September 17, 2024 Assessment & Plan (1) Acute kidney injury: Plan: * KRISSY due to CHF * Improved following diuresis but recently patient had large volume loss related to diarrhea * Continue to hold diuretic for now * Will provide 1L 0.9NS * Patient has clear lung acuna on exam. SaO2 is 98% on RA. Creatinine remains relatively stable. Electrolyte balance is acceptable * Monitor BMP, UO, volume status (2) Kidney transplant status, living unrelated donor: Plan: * LURT due to FSGS * Baseline Cr 1.4 * Continue tacrolimus, mycophenolate, prednisone (3) Acute exacerbation of CHF (congestive heart failure): Plan: * Resolved (4) Hypomagnesemia: Plan: * Resolved (5) Warm autoimmune hemolytic anemia: Plan: * Hgb relatively stable at 9.0 * Velcade, IVIG as per oncology Admission and Anticipated Discharge Date Admission Date: September 13, 2024 Subjective Mr. Mandel was evaluated in his hospital room this morning. He reports that diarrhea has resolved and BM's are formed. He is trying to maintain adequate oral hydration. Review of Systems Constitutional: no fever Eyes: no problem reported Ear, Nose, Mouth, Throat: no problem reported Respiratory: no cough and no dyspnea Cardiovascular: no chest pain Gastrointestinal: no abdominal pain, no nausea, no vomiting and no diarrhea/loose stools Genitourinary: no urinary hesitancy Integumentary: no rash Physical Exam Constitutional: not in distress Eyes: PERRL, conjunctivae normal, anicteric sclerae ENMT: external ear and nose normal, oropharynx normal Neck: trachea midline, no thyromegaly Respiratory: normal respiratory effort, lungs clear to auscultation Cardiovascular: Rate/Rhythm: regular rate and regular rhythm Extremities: + edema (1+ pretibial edema of RLE) Gastrointestinal (Abdomen): normal bowel sounds, soft, nontender, no hepatosplenomegaly Neurologic: awake; not confused Results & Data Vital Signs (Past 12 Hours) Vital Signs Temp Pulse Resp BP Pulse Ox O2 Del Method 09/17/24 07:56 36.4 C L 79 18 121/80 98 Room Air 09/17/24 07:34 Room Air 09/17/24 04:28 36.4 C L 78 20 130/81 99 Room Air 09/17/24 00:21 36.5 C 83 20 107/74 95 Room Air 09/16/24 21:15 Room Air Laboratory Results Laboratory Results - last 24 hr 09/17/24 07:54 WBC 7.05 RBC 2.69 L Hgb 9.5 L Hct 29.3 L MCV 108.9 H MCH 35.3 H MCHC 32.4 RDW Std Deviation 63.2 H RDW Coeff of Jaye 15.9 H Plt Count 200 MPV 10.1 Sodium 135 L Potassium 4.4 Chloride 101 Carbon Dioxide 27 Anion Gap 7 BUN 71 H Creatinine 2.31 H Est Cr Clr Drug Dosing 36.5 eGFR 30.97 BUN/Creatinine Ratio 30.7 H Glucose 85 Calcium 9.2 Magnesium 2.0 Total Bilirubin 1.3 H AST 25 ALT 15 Alkaline Phosphatase 78 Total Protein 7.3 Albumin 3.3 L Globulin 4.0 Albumin/Globulin Ratio 0.8 L PG Care Time/CCT Total # of Minutes Spent Total Time Spent with Patient: Total time spent is greater than 50% in coordination of care (as documented) at patient's floor/unit and/or counseling patient: Coding Level of Care Code 83966 SUB INP/OBS CARE 3/50MIN Diagnoses Acute kidney injury N17.9 Kidney transplant status, living unrelated donor Z94.0 Acute exacerbation of CHF (congestive heart failure) I50.9 Heart failure type: unspecified Hypomagnesemia E83.42 Warm autoimmune hemolytic anemia D59.11 (3) Acute exacerbation of CHF (congestive heart failure) Heart failure type: unspecified Qualified Code(s): I50.9 - Heart failure, unspecified
[2024-09-17] MEDS: predniSONE 20 MG TAB PO STA (10:23)
[2024-09-17] MEDS: SODIUM CHLORIDE 0.9% 1,000 ML IV SCH (10:26)
--- NOTE | 2024-09-17 10:40 | Cardiology Progress Note ---
Date of Service September 17, 2024 Assessment & Plan (1) Chest pain: (2) RBBB (right bundle branch block with left anterior fascicular block): (3) Elevated troponin: (4) Diastolic CHF: (5) Atrial fibrillation: (6) Acute on chronic diastolic (congestive) heart failure: (7) CHF (congestive heart failure): (8) Elevated troponin: (9) Atrial fibrillation with rapid ventricular response: (10) Acute exacerbation of CHF (congestive heart failure): (11) Coronary artery calcification: Plan 1.Acute on chronic exacerbation of HFpEF - Patient telemetry monitoring shows heart rate in the range of 60 to 70 - Continued Metoprolol 100 mg HS -Added Metoprolol 25 mg PO QAM daily (09/16) - Creatinine(09/17): 2.31 -Digoxin Placed on hold due to renal impairment - BP-121/80 -Bumex continue hold - Given better rate and Blood Pressure control, will continue with same dose of Metoprolol 2. Atrial Fibrillation with rapid Ventricular Response - Telemetry monitoring shows heart rate in the range of 60 to 70 -Blood pressure and rate control with current dose of Metoprolol,continue same dose. -Continue to monitor on Telemetry and titrate dose of Metoprolol if necessary -Digoxin on hold given the renal impairment. -Magnesium(09/17)=2 -Potassium (2.4) and TSH WNL -not on Anticoagulant due to Anemia/Bleeding in the past -Would recommend Followup with lineworker to consider retrial of Xarelto. 3. Chest pain - No chest pain and SOB. - High Sensitivity Troponin: 35.7 >38.1> 42.4>43.6. Lower than that of previous visit. Trended down with Heart Rate Control and Mg. Admission and Anticipated Discharge Date Admission Date: September 13, 2024 Supervising Physician Co-Signing Physician Notes Patient seen and examined. Agree with assessment and plan as outlined by Dr. Will. Impression: 1. Atrial fibrillation -Rate now adequately controlled on metoprolol succinate. -Digoxin on hold. 2. Acute on chronic diastolic CHF -Well compensated at this time. -Diuretics currently on hold. Subjective Patient was lying in bed . No Chest pain/ Shortness of Breath. No overnight events. Slept well yesterday night. SPO2 is 98% on RA. Complained of Pain in Bilateral ankle(Right >Left) since yesterday. Review of Systems Review of Systems: As per HPI Physical Exam Constitutional: cooperative and comfortable; not in distress Eyes: PERRL, conjunctivae normal, anicteric sclerae ENMT: external ear and nose normal, oropharynx normal Neck: trachea midline, no thyromegaly Respiratory: normal respiratory effort, lungs clear to auscultation Cardiovascular: Rate/Rhythm: regular rate and regular rhythm Extremities: + edema (1+ pretibial edema of RLE) Gastrointestinal (Abdomen): normal bowel sounds, soft, nontender, no hepatosplenomegaly Neurologic: awake; not confused Results & Data Vital Signs (Past 12 Hours) Vital Signs Temp Pulse Pulse Resp BP Pulse Ox O2 Del Method 09/17/24 10:08 75 09/17/24 07:56 36.4 C L 79 18 121/80 98 Room Air 09/17/24 07:34 Room Air 09/17/24 04:28 36.4 C L 78 20 130/81 99 Room Air 09/17/24 00:21 36.5 C 83 20 107/74 95 Room Air PG Care Time/CCT Total # of Minutes Spent Total Time Spent with Patient: Total time spent is greater than 50% in coordination of care (as documented) at patient's floor/unit and/or counseling patient: Coding Level of Care Code 76207 SUB INP/OBS CARE 3/50MIN Diagnoses Chest pain R07.9 RBBB (right bundle branch block with left anterior fascicular block) I45.2 Elevated troponin R79.89 Chronic diastolic congestive heart failure I50.32 Heart failure chronicity: chronic Atrial fibrillation I48.91 Acute on chronic diastolic (congestive) heart failure I50.33 CHF (congestive heart failure) I50.9 Heart failure chronicity: acute on chronic Heart failure type: unspecified Atrial fibrillation with rapid ventricular response I48.91 Acute exacerbation of CHF (congestive heart failure) I50.9 Heart failure type: unspecified Coronary artery calcification I25.10 (4) Diastolic CHF Heart failure chronicity: chronic Qualified Code(s): I50.32 - Chronic diastolic (congestive) heart failure (7) CHF (congestive heart failure) Heart failure chronicity: acute on chronic Heart failure type: unspecified Qualified Code(s): I50.9 - Heart failure, unspecified (9) Acute exacerbation of CHF (congestive heart failure) Heart failure type: unspecified Qualified Code(s): I50.9 - Heart failure, unspecified
[2024-09-18 05:51] LABS: Hematocrit (blood only) 26.7 % (42.0-52.0); Hemoglobin 8.8 g/dl (14.0-18.0); Mean Corpuscular Hemoglobin 35.8 pg (25.0-34.0); Mean Corpuscular Volume 108.5 fL (80.0-100.0); Mean Platelet Volume 10.2 fL (9.4-12.4); Platelet Count 220 K/uL (130-400); RDW Coefficient of Variation 15.6 % (11.5-14.5); RDW Standard Deviation 61.8 fL (36.4-46.3); Red Blood Count 2.46 M/uL (4.70-6.10); White Blood Count 7.56 K/ul (4.8-10.8)
[2024-09-18 06:01] LABS: BUN Creatinine Ratio 33.8 (10-20); Calcium 9.1 mg/dl (8.6-10.3); Creatinine Clr Calc Pharmacy 41.9 ml/min; Magnesium 1.9 mg/dl (1.7-2.4); Potassium 4.6 mmol/L (3.5-5.1)
[2024-09-18] MEDS: predniSONE 20 MG TAB PO SCH (07:33)
--- NOTE | 2024-09-18 07:50 | Hospitalist Progress Note ---
Date of Service September 18, 2024 Assessment & Plan (1) Acute on chronic diastolic (congestive) heart failure: (2) Acute kidney injury: (3) Elevated troponin: (4) Atrial fibrillation: (5) Clostridioides difficile diarrhea: (6) Gout: (7) CKD (chronic kidney disease): (8) Dehydration: (9) On prednisone therapy: (10) Atrial fibrillation: (11) Chest pain: (12) Warm autoimmune hemolytic anemia: Plan 63-year-old male with past medical history significant for HFpEF, A-fib, ESRD, WAHA, and additional chronic medical conditions who is presenting for sudden onset of chest pain with shortness of breath after exertion following eating out at [employer] followed by increased activity with cutting wood and developed chest pain. Troponin with mild elevation on admission, EKG without ischemic changes but noting afib with rate 99bpm . CXR w/ evidence for overload and was provided IV lasix/nitro on admission with improvement/resolution. Do not suspect CAD given stable troponin but cannot r/o underlying disease as unable to tolerate aspirin/AC for such. Also with KRISSY, likely 2nd to hypotension/hypoperfusion and increased diuretic use recently. Weight was down on admission compared to dc last month. review of chart appears patient w/ consistent high HR w/ permanent afib -- suspect contributing/causing acute on chronic CHF with increased salt load/increased activity #Acute on chronic exacerbation of HFpEF /Afib w/ RVR (baseline permanent afib, suspect 2nd to untreated CHERELLE) Much improved from admission, suspect 2nd to afib/RVR and uncontrolled rates Improved with new added metoprolol 25mg PO QAM and remains on 100mg HS. Digoxin added/discontinued given renal function per discussion w/ cardiology Had actually provided 1L IVF on 09/17 for dehydration 2nd to diarrheal losses suspected from cdiff. Weight DOWN to 99.6kg despite IVF, diarrhea slowed and discussed with nephrology and additional 1L IVF NS ordered Bumex continues on hold Monitor I&O, daily standing scale weight. Continue telemetry monitoring -- afib rates 60-80s over past 24 hours. 1gm IV mag to keep closer to 2. Mag oxide on hold and could consider SLOW MAG Monitor labs/volume status in AM - patient is hopeful for dc #Chest pain No further since improvement in HR, and troponin trended down and suspected 2nd to demand ischemia from elevated HR, however cannot r/o underlying disease and cards consulted/defer to primary cards about diagnostic cath -- does not appear felt needed #A-fib, permanent/hx hypomagnesemia As above, improvement with additional metoprolol. 1gm IV mag ordered and consideration for SLOW MAG to prevent diarrheal losses. Outpt f/u as encouraged follow up discussion w/ PCP about repeat CHERELLE testing/CPAP as was unaware effects on HF/afib and would benefit from such. Consideration for AC discussion w/ heme/onc, Dr Gonsalez to see today #KRISSY on CKD/ESRD/Gout s/p renal transplant 2009 with baseline Cr 1.3-1.4 , hx FSGS On taclolimus/mycophenolate/prednisone daily at baseline Cr 1.8 ?ATN/hypotension vs overdiuresis w/ increased bumex recently and weight down on admission Nephrology consulted, dig stopped 1L NS on 09/17, Cr 2.3--> 2.0 Additional 1L IVF for today for dehydration on appearance Uric acid trending down on repeat and will continue prednisone 20mg daily for now, consider increasing if needed but will monitor with IVF. Remains on allopurinol for below but may need held Renal dose meds/avoid toxins, dig now discontinued BMP in AM #Cdiff Reported loose stool 09/14, biofire/cdiff testing w/ +gene but negative toxin and initially deferred on starting treatment however increased diarrhea to 8+ yellow/liquid seedy foul bowel movements with abdominal discomfort and started on Vancomycin PO 09/14 with improvement in diarrhea/slowing and starting to form up (denied blood in stool) Isolation precautions continued and continues on Vancomycin PO w/ continued forming of stools IVF support as above #Warm autoimmune hemolytic anemia Dx 2023; Follows with hematology most recent visit 08/20/2024; IVIG; Velcade WBC 12.3 k on admission, on chronic steroids. MCV 112, TB 2 Continues on iron/folic acid/acyclovir, prednisone 5mg at baseline but got 48hr 25mg IV HC for stress w/ hypotension/+stool testing w/ improvement LDH NOT elevated Need reschedule Veclade outpt as to get 09/17, see note. Danazol ordered by pharmacy as new med from Dr Gonsalez this month/not able to bring and has been resumed Outpt heme f/u -- messaged Dr [place]edo and will see today #Sleep apnea above, discussed at length 1/1, rec further discussion and repeat testing/CPAP with PCP or cards in follow up #Gout Allopurinol ,prednisone daily at baseline however ?flar in ankles w/ increased diuretics and diarrheal losses/dehydration worsened? IVF/prednisone increased as above. avoiding colchicine w/ cdiff/diarrhea but could be considered but uric acid improving #Hypothyroidism TSH wnl earlier this month. Synthroid continued VTE Prophylaxis: SCDs , chemoproph deferred w/ hx anemia.0 Dispo: continued inpatient stay, IVF for dehydration/renal function. Remains on increased metoprolol with EXCELLENT control in his AFIB/rates on telemetry and should be continued at [facility] along with f/u discussion re: CHERELLE. PT/OT evals have been ordered and Dr Gonsalez to see today/arrangement Veclade outpatient at discharge. Patient hopeful for ks 09/19 Admission and Anticipated Discharge Date Admission Date: September 13, 2024 Supervising Physician Co-Signing Physician Notes The patient was not seen by me. The chart was reviewed. Case discussed with MASON French. Agree with assessment and plan Subjective Eval this morning, up in chair. No CP, 99% on RA. Was hoping to be able to go home today but discussed renal function/dehydration and discussion with nephrology. Pain to his ankles, slight improvement with steroids, may need to increase to BID but uric acid improving and per nephrology additional 1L IVF for dehydration. Diarrhea reported stable/forming of stools and discussed would avoid colchicine to prevent worsening his diarrhea given improvement. No blood. Not seen therapy today but has been seen. Wondering about infusion, labs w/ CCP. Discussed will message Dr Gonsalez regarding such. Also noted and discussed his hx CHERELLE - he reports just "didn't like it" but did not seem to be aware the effect on CHF/uncontrolled afib and should think about it and let us know if agreeable and will message PCP about following up and repeating study/arranging at [facility] as discussed would help his underlying disease as well. Physical Exam Physical Exam: General: 63yo male sitting up in chair this morning, NAD, reports feeling little better, urine lightening up, ongoing pain to ankles (R ankle oop to exam, c/w gout), slight edema Head atraumatic, normocephalic, mm improving but still slightly dry, trachea midline Resp: even/unlabored, no wheezing/crackles, on room air 99% CV: irregularly irregular but rates MUCH improved overall 60-80s on telemetry, trace pedal edema/ankles as above but no pitting edema GI: +BS, soft/NT no rainey MSK/Neuro: answering questions appropriately, Psych: alert/oriented to person, place, cooperative with exam Results & Data Results & Data Vital Signs (Past 12 Hours) Vital Signs Temp Pulse Pulse Resp BP Pulse Ox O2 Del Method 09/18/24 07:00 71 09/18/24 03:39 36.3 C L 76 16 126/79 97 Room Air 09/17/24 22:17 36.8 C 83 18 116/73 96 Room Air 09/17/24 21:46 83 PG Care Time/CCT Total # of Minutes Spent Total Time Spent with Patient: Total time spent is greater than 50% in coordination of care (as documented) at patient's floor/unit and/or counseling patient: Coding Level of Care Code 11255 SUB INP/OBS CARE 3/50MIN Diagnoses Acute on chronic diastolic (congestive) heart failure I50.33 Acute kidney injury N17.9 Elevated troponin R79.89 Atrial fibrillation I48.91 Clostridioides difficile diarrhea A04.72 Gout M10.9 CKD (chronic kidney disease) N18.9 Dehydration E86.0 On prednisone therapy Z79.52 Chest pain R07.9 Warm autoimmune hemolytic anemia D59.11
[2024-09-18] MEDS: MAGNESIUM SULFATE / D5W 1 GM/100 ML BAG IV ONE (08:51)
--- NOTE | 2024-09-18 09:02 | Nephrology Progress Note ---
Date of Service September 18, 2024 Assessment & Plan (1) Acute kidney injury: Plan: * KRISSY due to CHF * Improved following diuresis but recently patient had large volume loss related to diarrhea * Continue to hold diuretic * Will provide additional 1L 0.9NS IV today * Patient has clear lung acuna on exam. SaO2 is 98% on RA. Creatinine has improved from 2.31 to 2.01. Electrolyte balance is acceptable * Monitor BMP, UO, volume status (2) Kidney transplant status, living unrelated donor: Plan: * LURT due to FSGS * Baseline Cr 1.4 * Continue tacrolimus, mycophenolate, prednisone (3) Acute exacerbation of CHF (congestive heart failure): Plan: * Resolved (4) Hypomagnesemia: Plan: * Resolved (5) Warm autoimmune hemolytic anemia: Plan: * Hgb has dropped to 8.8 * Iron stores are repleat. Will provide one dose epogen this am * Velcade, IVIG as per oncology Admission and Anticipated Discharge Date Admission Date: September 13, 2024 Subjective Mr. Mandel was evaluated in his hospital room this morning. He reports that diarrhea has resolved and BM's are formed. He is trying to maintain adequate oral hydration. No new medical concerns voiced Review of Systems Constitutional: no fever Eyes: no problem reported Ear, Nose, Mouth, Throat: no problem reported Respiratory: no cough and no dyspnea Cardiovascular: no chest pain Gastrointestinal: no abdominal pain, no nausea, no vomiting and no diarrhea/loose stools Genitourinary: no urinary hesitancy Integumentary: no rash Physical Exam Constitutional: not in distress Eyes: PERRL, conjunctivae normal, anicteric sclerae ENMT: external ear and nose normal, oropharynx normal Neck: trachea midline, no thyromegaly Respiratory: normal respiratory effort, lungs clear to auscultation Cardiovascular: Rate/Rhythm: regular rate and regular rhythm Extremities: + edema (trace pretibial edema of RLE) Gastrointestinal (Abdomen): normal bowel sounds, soft, nontender, no hepatosplenomegaly Neurologic: awake; not confused Results & Data Vital Signs (Past 12 Hours) Vital Signs Temp Pulse Pulse Resp BP Pulse Ox O2 Del Method 09/18/24 07:40 Room Air 09/18/24 07:00 71 09/18/24 03:39 36.3 C L 76 16 126/79 97 Room Air 09/17/24 22:17 36.8 C 83 18 116/73 96 Room Air 09/17/24 21:46 83 Laboratory Results Laboratory Results - last 24 hr 09/17/24 09/18/24 07:54 05:01 WBC 7.56 RBC 2.46 L Hgb 8.8 L Hct 26.7 L MCV 108.5 H MCH 35.8 H MCHC 33.0 RDW Std Deviation 61.8 H RDW Coeff of Jaye 15.6 H Plt Count 220 MPV 10.2 Sodium 136 Potassium 4.6 Chloride 103 Carbon Dioxide 25 Anion Gap 8 BUN 68 H Creatinine 2.01 H D Est Cr Clr Drug Dosing 41.9 eGFR 36.59 BUN/Creatinine Ratio 33.8 H Glucose 97 Uric Acid 9.2 H 9.0 H Calcium 9.1 Magnesium 1.9 PG Care Time/CCT Total # of Minutes Spent Total Time Spent with Patient: Total time spent is greater than 50% in coordination of care (as documented) at patient's floor/unit and/or counseling patient: Coding Level of Care Code 26638 SUB INP/OBS CARE 3/50MIN Diagnoses Acute kidney injury N17.9 Kidney transplant status, living unrelated donor Z94.0 Acute exacerbation of CHF (congestive heart failure) I50.9 Heart failure type: unspecified Hypomagnesemia E83.42 Warm autoimmune hemolytic anemia D59.11 (3) Acute exacerbation of CHF (congestive heart failure) Heart failure type: unspecified Qualified Code(s): I50.9 - Heart failure, unspecified
[2024-09-18] MEDS: SODIUM CHLORIDE 0.9% 1,000 ML IV SCH (10:30)
[2024-09-18] MEDS: EPOETIN ALFA 10,000 UNITS/ML VIAL SQ ONE (14:08)
[2024-09-19 06:28] LABS: Hematocrit (blood only) 27.3 % (42.0-52.0); Hemoglobin 8.8 g/dl (14.0-18.0); Mean Corpuscular Hemoglobin 35.8 pg (25.0-34.0); Mean Corpuscular Hgb Conc 32.2 g/dL (32.0-36.0); Platelet Count 261 K/uL (130-400); RDW Coefficient of Variation 15.8 % (11.5-14.5); Red Blood Count 2.46 M/uL (4.70-6.10); White Blood Count 7.81 K/ul (4.8-10.8)
[2024-09-19 06:45] LABS: Albumin Level 3.3 gm/dl (3.4-5.0); Bilirubin Direct 0.7 mg/dl (0-0.2); Bilirubin,Total 1.4 mg/dl (0.2-1.0); Calcium 9.2 mg/dl (8.6-10.3); Creatinine Clr Calc Pharmacy 43.4 ml/min; Magnesium 1.9 mg/dl (1.7-2.4); Potassium 4.4 mmol/L (3.5-5.1); Total Protein 7.2 gm/dl (6.0-8.3); Uric Acid 8.9 mg/dl (2.6-7.2)
--- NOTE | 2024-09-19 08:41 | Nephrology Progress Note ---
Date of Service September 19, 2024 Assessment & Plan (1) Acute kidney injury: Plan: * KRISSY due to CHF * Improved following diuresis but recently patient had large volume loss related to diarrhea * Continue to hold diuretic. Advised patient to resume bumex as outpatient only if he has fluid retention * Encourage oral hydration. Oral fluid restriction has been lifted * Patient has clear lung acuna on exam. SaO2 is 95% on RA. Creatinine has improved from 2.31 to 1.9. Electrolyte balance is acceptable * Can consider discharge to home. Recommend holding diuretic unless patient has fluid retention. Continue chronic immunosuppressive regimen. I have asked my office staff to contact patient and schedule outpatient nephrology follow up w/ Dr. Oro within 7-14 days. Orders are active in EMR for outpatient BMP 2 days prior to OV (2) Kidney transplant status, living unrelated donor: Plan: * LURT due to FSGS * Baseline Cr 1.4 * Continue tacrolimus, mycophenolate, prednisone (3) Acute exacerbation of CHF (congestive heart failure): Plan: * Resolved (4) Hypomagnesemia: Plan: * Resolved (5) Warm autoimmune hemolytic anemia: Plan: * Hgb has dropped to 8.8 * Iron stores are repleat. Epogen 10,000 units SQ x1 given 09/18/24 * Velcade, IVIG as per oncology Admission and Anticipated Discharge Date Admission Date: September 13, 2024 Subjective Mr. Mandel was evaluated in his hospital room this morning. He reports that diarrhea has resolved and BM's remain formed. He is trying to maintain adequate oral hydration. No new medical concerns voiced Review of Systems Constitutional: no fever Eyes: no problem reported Ear, Nose, Mouth, Throat: no problem reported Respiratory: no cough and no dyspnea Cardiovascular: no chest pain Gastrointestinal: no abdominal pain, no nausea, no vomiting and no diarrhea/loose stools Genitourinary: no urinary hesitancy Integumentary: no rash Physical Exam Constitutional: not in distress Eyes: PERRL, conjunctivae normal, anicteric sclerae ENMT: external ear and nose normal, oropharynx normal Neck: trachea midline, no thyromegaly Respiratory: normal respiratory effort, lungs clear to auscultation Cardiovascular: Rate/Rhythm: regular rate and regular rhythm Extremities: + edema (trace pretibial edema of RLE) Gastrointestinal (Abdomen): normal bowel sounds, soft, nontender, no hepatosplenomegaly Neurologic: awake; not confused Results & Data Vital Signs (Past 12 Hours) Vital Signs Temp Pulse Pulse Resp BP Pulse Ox O2 Del Method 09/19/24 07:10 36.3 C L 70 16 132/86 95 Room Air 09/19/24 06:55 77 09/19/24 02:57 36.5 C 76 16 120/78 94 Room Air 09/18/24 22:38 36.4 C L 76 16 120/78 96 Room Air 09/18/24 21:55 81 Laboratory Results Laboratory Results - last 24 hr 09/19/24 05:47 WBC 7.81 RBC 2.46 L Hgb 8.8 L Hct 27.3 L MCV 111.0 H MCH 35.8 H MCHC 32.2 RDW Std Deviation 63.0 H RDW Coeff of Jaye 15.8 H Plt Count 261 MPV 10.0 Sodium 136 Potassium 4.4 Chloride 103 Carbon Dioxide 24 Anion Gap 9 BUN 67 H Creatinine 1.97 H Est Cr Clr Drug Dosing 43.4 eGFR 37.49 BUN/Creatinine Ratio 34.0 H Glucose 95 Uric Acid 8.9 H Calcium 9.2 Magnesium 1.9 Total Bilirubin 1.4 H Direct Bilirubin 0.7 H AST 30 ALT 22 Alkaline Phosphatase 92 Total Protein 7.2 Albumin 3.3 L Blood Type A Positive Antibody Screen POSITIVE A Antibody Identification Pending Antibody ID Comment Pending PG Care Time/CCT Total # of Minutes Spent Total Time Spent with Patient: Total time spent is greater than 50% in coordination of care (as documented) at patient's floor/unit and/or counseling patient: Coding Level of Care Code 70990 SUB INP/OBS CARE 3/50MIN Diagnoses Acute kidney injury N17.9 Kidney transplant status, living unrelated donor Z94.0 Acute exacerbation of CHF (congestive heart failure) I50.9 Heart failure type: unspecified Hypomagnesemia E83.42 Warm autoimmune hemolytic anemia D59.11 (3) Acute exacerbation of CHF (congestive heart failure) Heart failure type: unspecified Qualified Code(s): I50.9 - Heart failure, unspecified
--- NOTE | 2024-09-19 19:23 | Hospitalist Progress Note ---
Date of Service September 19, 2024 Assessment & Plan (1) Acute on chronic diastolic (congestive) heart failure: (2) Acute kidney injury: (3) Elevated troponin: (4) Atrial fibrillation: (5) Clostridioides difficile diarrhea: (6) Gout: (7) CKD (chronic kidney disease): (8) Dehydration: (9) On prednisone therapy: (10) Chest pain: (11) Warm autoimmune hemolytic anemia: Plan 63-year-old male with past medical history significant for HFpEF, A-fib, ESRD, WAHA, and additional chronic medical conditions who is presenting for sudden onset of chest pain with shortness of breath after exertion following eating out at [employer] followed by increased activity with cutting wood and developed chest pain. Troponin with mild elevation on admission, EKG without ischemic changes but noting afib with rate 99bpm . CXR w/ evidence for overload and was provided IV lasix/nitro on admission with improvement/resolution. Do not suspect CAD given stable troponin but cannot r/o underlying disease as unable to tolerate aspirin/AC for such. Also with KRISSY, likely 2nd to hypotension/hypope rfusion and increased diuretic use recently. Weight was down on admission compared to dc last month. review of chart appears patient w/ consistent high HR w/ permanent afib -- suspect contributing/causing acute on chronic CHF with increased salt load/increased activity #Acute on chronic exacerbation of HFpEF /Afib w/ RVR (baseline permanent afib, suspect 2nd to untreated CHERELLE) Much improved from admission, suspect 2nd to afib/RVR and uncontrolled rates Improved with new added metoprolol 25mg PO QAM and remains on 100mg HS. Digoxin added/discontinued given renal function per discussion w/ cardiology Weight DOWN, Bumex continues on hold Monitor I&O, daily standing scale weight Continue telemetry monitoring -- afib rates 70-80s over past 24 hours. Mag oxide on hold and could consider SLOW MAG #Chest pain No further since improvement in HR, and troponin trended down and suspected 2nd to demand ischemia from elevated HR, however cannot r/o underlying disease and cards consulted/defer to primary cards about diagnostic cath -- does not appear felt needed #A-fib, permanent/hx hypomagnesemia As above, improvement with additional metoprolol Outpt f/u as encouraged follow up discussion w/ PCP about repeat CHERELLE testing/CPAP as was unaware effects on HF/afib and would benefit from such. Consideration for AC discussion w/ heme/onc, appreciate recommendations from Dr Gonsalez #KRISSY on CKD/ESRD/Gout s/p renal transplant 2009 with baseline Cr 1.3-1.4 , hx FSGS On taclolimus/mycophenolate/prednisone daily at baseline Cr 1.8 ?ATN/hypotension vs overdiuresis w/ increased bumex recently and weight down on admission Nephrology consulted, dig stopped Uric acid trending down on repeat and will continue prednisone 20mg daily for now, consider increasing if needed but will monitor with IVF. Remains on allopurinol for below but may need held Renal dose meds/avoid toxins, dig now discontinued BMP in AM #Cdiff Reported loose stool 09/14, biofire/cdiff testing w/ +gene but negative toxin and initially deferred on starting treatment however increased diarrhea to 8+ yellow/liquid seedy foul bowel movements with abdominal discomfort and started on Vancomycin PO 09/14 with improvement in diarrhea/slowing and starting to form up (denied blood in stool) Isolation precautions continued and continues on Vancomycin PO w/ continued forming of stools IVF support as above #Warm autoimmune hemolytic anemia Dx 2023; Follows with hematology most recent visit 08/20/2024; IVIG; Velcade WBC 12.3 k on admission, on chronic steroids. MCV 112, TB 2 Continues on iron/folic acid/acyclovir, prednisone 5mg at baseline but got 48hr 25mg IV HC for stress w/ hypotension/+stool testing w/ improvement LDH NOT elevated Need reschedule Veclade outpt as to get 09/17, see note. Danazol ordered by pharmacy as new med from Dr Gonsalez this month/not able to bring and has been resumed Outpt heme f/u #Sleep apnea above, discussed at length 09/18, rec further discussion and repeat testing/CPAP with PCP or cards in follow up #Gout Allopurinol ,prednisone daily at baseline however ?flare in ankles w/ increased diuretics and diarrheal losses/dehydration worsened? IVF/prednisone increased as above. avoiding colchicine w/ cdiff/diarrhea but could be considered but uric acid improving #Hypothyroidism TSH wnl earlier this month. Synthroid continued VTE Prophylaxis: SCDs , chemoproph deferred w/ hx anemia Dispo: continued inpatient stay, IVF for dehydration/renal function. Remains on increased metoprolol with EXCELLENT control in his AFIB/rates on telemetry and should be continued at [place] along with f/u discussion re: CHERELLE. Anticipate discharge 09/20/2024 Admission and Anticipated Discharge Date Admission Date: September 13, 2024 Subjective Patient seen and evaluated in bedside chair. He reports that his ankle pain is improved today. He notes this has happened before when sedentary for extended periods of time. He reports eating, drinking, and sleeping well. He denies shortness of breath or difficulty breathing. He denies further diarrhea, noting he had a formed bowel movement this morning. We discussed his kidney function is improving, but not back to baseline. Anticipate discharge home tomorrow 09/20/2024. No additional complaints or concerns at this time. Physical Exam Physical Exam: General: No acute distress, nondiaphoretic, well-developed, well-nourished. Cardiac: Atrial fibrillation in the 70s. No murmurs noted. 1+ nonpitting edema in lower extremities bilaterally. Pulm: Clear to auscultation bilaterally without wheezes, rales or rhonchi. No respiratory distress. 99% on room air. Abdominal: Soft, nontender, nondistended. Bowel sounds present. Neuro: A&O x3. No focal neurological deficits. Results & Data Results & Data Vital Signs (Past 12 Hours) Vital Signs Temp Pulse Pulse Resp BP Pulse Ox O2 Del Method 09/19/24 15:35 97.5 F L 76 16 138/75 99 Room Air 09/19/24 14:00 83 09/19/24 12:14 97.9 F 68 16 131/84 98 Room Air 09/19/24 07:40 Room Air Laboratory Results Reviewed CBC Reviewed CMP Diagnostic Findings Reviewed telemetry A-fib in 80s overnight and 70s during the day PG Care Time/CCT Total # of Minutes Spent Total Time Spent with Patient: Total time spent is greater than 50% in coordination of care (as documented) at patient's floor/unit and/or counseling patient: Coding Level of Care Code 09939 SUB INP/OBS CARE 2/35MIN Diagnoses Acute on chronic diastolic (congestive) heart failure I50.33 Acute kidney injury N17.9 Elevated troponin R79.89 Atrial fibrillation I48.91 Clostridioides difficile diarrhea A04.72 Gout M10.9 CKD (chronic kidney disease) N18.9 Dehydration E86.0 On prednisone therapy Z79.52 Chest pain R07.9 Warm autoimmune hemolytic anemia D59.11
[2024-09-19 19:30] VITALS: RESP 18
[2024-09-20 03:47] VITALS: TEMP 98.1
[2024-09-20 08:30] VITALS: BP 126/83; PULSE 71; O2SAT 95
[2024-09-20 08:30] LABS: Hematocrit (blood only) 27.6 % (42.0-52.0); Hemoglobin 8.8 g/dl (14.0-18.0); Mean Corpuscular Hemoglobin 34.9 pg (25.0-34.0); Mean Corpuscular Hgb Conc 31.9 g/dL (32.0-36.0); Mean Corpuscular Volume 109.5 fL (80.0-100.0); Mean Platelet Volume 9.9 fL (9.4-12.4); Platelet Count 295 K/uL (130-400); RDW Coefficient of Variation 15.9 % (11.5-14.5); RDW Standard Deviation 63.2 fL (36.4-46.3); Red Blood Count 2.52 M/uL (4.70-6.10); White Blood Count 8.19 K/ul (4.8-10.8)
--- NOTE | 2024-09-20 08:44 | Nephrology Progress Note ---
Date of Service September 20, 2024 Assessment & Plan (1) Acute kidney injury: Plan: * KRISSY due to CHF * Improved following diuresis but recently had large volume loss related to diarrhea * Advised patient to resume bumex as outpatient only if he has fluid retention * Encourage oral hydration. Oral fluid restriction has been lifted * Patient has clear lung acuna on exam. SaO2 is 95% on RA. Creatinine has improved from 2.31 to 1.9. Electrolyte balance is acceptable * Can consider discharge to home. Recommend holding diuretic unless patient has fluid retention. Continue chronic immunosuppressive regimen. I have asked my office staff to contact patient and schedule outpatient nephrology follow up w/ Dr. Oro within 7-14 days. Orders are active in EMR for outpatient BMP 2 days prior to OV (2) Kidney transplant status, living unrelated donor: Plan: * LURT due to FSGS * Baseline Cr 1.4 * Continue tacrolimus, mycophenolate, prednisone (3) Acute exacerbation of CHF (congestive heart failure): Plan: * Resolved (4) Hypomagnesemia: Plan: * Resolved (5) Warm autoimmune hemolytic anemia: Plan: * Hgb has dropped to 8.8 * Iron stores are repleat. Epogen 10,000 units SQ x1 given 09/18/24 * Velcade, IVIG as per oncology Admission and Anticipated Discharge Date Admission Date: September 13, 2024 Subjective Mr. Mandel was evaluated in his hospital room this morning. He reports that diarrhea has resolved and BM's remain formed. He is trying to maintain adequate oral hydration. He hopes to return home today. Review of Systems Constitutional: no fever Eyes: no problem reported Ear, Nose, Mouth, Throat: no problem reported Respiratory: no cough and no dyspnea Cardiovascular: no chest pain Gastrointestinal: no abdominal pain, no nausea, no vomiting and no diarrhea/loose stools Genitourinary: no urinary hesitancy Integumentary: no rash Physical Exam Constitutional: not in distress Eyes: PERRL, conjunctivae normal, anicteric sclerae ENMT: external ear and nose normal, oropharynx normal Neck: trachea midline, no thyromegaly Respiratory: normal respiratory effort, lungs clear to auscultation Cardiovascular: Rate/Rhythm: regular rate and regular rhythm Extremities: + edema (trace pretibial edema of RLE) Gastrointestinal (Abdomen): normal bowel sounds, soft, nontender, no hepatosplenomegaly Neurologic: awake; not confused Results & Data Vital Signs (Past 12 Hours) Vital Signs Temp Pulse Pulse Resp BP Pulse Ox O2 Del Method 09/20/24 08:29 36.7 C 71 18 126/83 95 Room Air 09/20/24 07:59 Room Air 09/20/24 07:17 68 09/20/24 03:46 36.7 C 77 18 130/81 96 Room Air 09/19/24 23:12 36.5 C 77 18 120/78 95 Room Air 09/19/24 22:32 74 Laboratory Results Laboratory Results - last 24 hr 09/19/24 09/19/24 09/19/24 05:47 05:47 05:47 WBC RBC Hgb Hct MCV MCH MCHC RDW Std Deviation RDW Coeff of Jaye Plt Count MPV Sodium Potassium Chloride Carbon Dioxide Anion Gap BUN Creatinine Est Cr Clr Drug Dosing eGFR BUN/Creatinine Ratio Glucose Calcium Antibody Identification Auto Gil Agglutinin Cold Antibody Anti-E Antibody ID Comment 09/20/24 07:52 WBC 8.19 RBC 2.52 L Hgb 8.8 L Hct 27.6 L MCV 109.5 H MCH 34.9 H MCHC 31.9 L RDW Std Deviation 63.2 H RDW Coeff of Jaye 15.9 H Plt Count 295 MPV 9.9 Sodium Pending Potassium Pending Chloride Pending Carbon Dioxide Pending Anion Gap Pending BUN Pending Creatinine Pending Est Cr Clr Drug Dosing Pending eGFR Pending BUN/Creatinine Ratio Pending Glucose Pending Calcium Pending Antibody Identification Antibody ID Comment Laboratory Results - last 24 hr 09/20/24 07:52 WBC 8.19 RBC 2.52 L Hgb 8.8 L Hct 27.6 L MCV 109.5 H MCH 34.9 H MCHC 31.9 L RDW Std Deviation 63.2 H RDW Coeff of Jaye 15.9 H Plt Count 295 MPV 9.9 Sodium 135 L Potassium 4.4 Chloride 103 Carbon Dioxide 25 Anion Gap 7 BUN 66 H Creatinine 1.97 H Est Cr Clr Drug Dosing 43.4 eGFR 37.49 BUN/Creatinine Ratio 33.5 H Glucose 93 Calcium 9.3 PG Care Time/CCT Total # of Minutes Spent Total Time Spent with Patient: Total time spent is greater than 50% in coordination of care (as documented) at patient's floor/unit and/or counseling patient: Coding Level of Care Code 90904 SUB INP/OBS CARE MIN Diagnoses Acute kidney injury N17.9 Kidney transplant status, living unrelated donor Z94.0 Acute exacerbation of CHF (congestive heart failure) I50.9 Heart failure type: unspecified Hypomagnesemia E83.42 Warm autoimmune hemolytic anemia D59.11 (3) Acute exacerbation of CHF (congestive heart failure) Heart failure type: unspecified Qualified Code(s): I50.9 - Heart failure, unspecified
[2024-09-20 08:54] LABS: BUN Creatinine Ratio 33.5 (10-20); Calcium 9.3 mg/dl (8.6-10.3); Creatinine Clr Calc Pharmacy 43.4 ml/min; Potassium 4.4 mmol/L (3.5-5.1)
--- NOTE | 2024-09-20 19:23 | Discharge Summary ---
Discharge Summary Date of Service September 20, 2024 Principal Dx & Hospital Course #1 = Principal Diagnosis (1) Acute on chronic diastolic (congestive) heart failure: (2) Acute kidney injury: (3) Elevated troponin: (4) Atrial fibrillation: (5) Clostridioides difficile diarrhea: (6) Gout: (7) CKD (chronic kidney disease): (8) Dehydration: (9) On prednisone therapy: (10) Chest pain: (11) Warm autoimmune hemolytic anemia: Plan 63-year-old male with past medical history significant for HFpEF, A-fib, ESRD, WAHA, and additional chronic medical conditions who is presenting for sudden onset of chest pain with shortness of breath after exertion following eating out at [employer] followed by increased activity with cutting wood and developed chest pain. CXR with evidence for volume overload and was provided IV Lasix last nitro on admission with improvement/resolution of symptoms. Also with KRISSY that was likely due to hypotension/hypoperfusion and increased diuretic use recently; improving. Also with A-fib RVR, suspect due to increased salt load/increased activity/untreated CHERELLE. #Acute on chronic exacerbation of HFpEF /Afib w/ RVR (baseline permanent afib, suspect 2nd to untreated CHERELLE) Much improved from admission, suspect 2nd to afib/RVR and uncontrolled rates Improved with new added metoprolol 25mg PO QAM and remains on 100mg HS. Digoxin added/discontinued given renal function per discussion w/ cardiology Bumex adjusted to NEEDED (previously QAM) for fluid retention #KRISSY on CKD/ESRD/Gout s/p renal transplant 2009 with baseline Cr 1.3-1.4 , hx FSGS On taclolimus/mycophenolate/prednisone daily at baseline Nephrology consulted, dig stopped KRISSY improved to 1.97 but not returned to baseline -- patient to get [facility] on 09/23 to monitor renal function with results sent to PCP and integrity specialist Dr Oro Concern for acute change in kidney function given BUN and Cr are both elevated above baseline with history of renal transplant -- encouraged him to inform his transplant team/have close follow-up with nephrology #Cdiff Reported loose stool 09/14, biofire/cdiff testing w/ +gene but negative toxin and initially deferred on starting treatment however increased diarrhea to 8+ yellow/liquid seedy foul bowel movements with abdominal discomfort and started on Vancomycin PO 12/28 with improvement in diarrhea/slowing and starting to form up (denied blood in stool) Continues on Vancomycin PO w/ continued forming of stools #A-fib, permanent/hx hypomagnesemia As above, improvement with additional metoprolol Outpt f/u as encouraged follow up discussion w/ PCP about repeat CHERELLE testing/CPAP as was unaware effects on HF/afib and would benefit from such. Consideration for AC discussion w/ heme/onc #Chest pain No further since improvement in HR, and troponin trended down and suspected 2nd to demand ischemia from elevated HR, however cannot r/o underlying disease and cards consulted/defer to primary cards about diagnostic cath -- does not appear felt needed #Warm autoimmune hemolytic anemia Dx 2023; Follows with hematology most recent visit 08/20/2024; IVIG; Velcade WBC 12.3 k on admission, on chronic steroids. MCV 112, TB 2 Continues on iron/folic acid/acyclovir, prednisone 5mg at baseline but got 48hr 25mg IV HC for stress w/ hypotension/+stool testing w/ improvement LDH NOT elevated Need reschedule Veclade outpt as to get 09/17, see note. Danazol ordered by pharmacy as new med from Dr Gonsalez this month/not able to bring and has been resumed Outpt heme f/u #Sleep apnea As above, discussed at length, rec further discussion and repeat testing/CPAP with PCP in follow up #Gout Allopurinol, prednisone daily at baseline however possible flare in ankles w/ increased diuretics and diarrheal losses/dehydration worsened Avoided colchicine given C. difficile/diarrhea Uric acid trending down on repeat and will continue prednisone 20mg daily x 3 days on discharge #Hypothyroidism TSH wnl earlier this month. 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 Recently discharged from hospital with course being 08/22 to 08/25 for pneumonia and acute exacerbation of heart failure. States that afternoon prior to arrival he noted he began to have chest pain and shortness of breath. States that prior to this he went to his chiropractor because he was having low back pains. He felt fine during this visit, went home and was splitting wood for the fireplace and then noted that a few moments after he was done with this the symptoms began. The symptoms continue to worsen throughout the evening. States that the chest pain is central, and does not radiate to his arm/back/neck. Had associated shortness of breath with this which she felt was worse than his usual. Rated the chest pain at an 8 out of 10 on the pain scale with 10 being the worst pain imaginable. The pain has since resolved to a 3 out of 10 following nitroglycerin provided in ED but is still present. Still located to central chest. No episodes of diaphoresis, palpitations, syncope, or lightheadedness. He sees had episodes like this occur before. Decided to come to the ER today because the pain was ongoing. Did have elevated troponin at 35.7, repeat at 38.1 but EKG w/o ischemic changes. Is having bilateral lower extremity edema, mildly increased from his baseline w/ BNP 303. Denying current palpitations, abdominal pain, N/V/D/C, numbness/tingling, fever/chills, headache, syncopal episodes, lightheadedness, dizziness, or URI symptoms. Did not take a.m. medications. Provided with nitroglycerin, Lasix, aspirin in ED. he does admit to going to the only can eat [employer] buffet on and has had increased sodium in his diet. Please see Dr. Yusuf's attestation for adjustments/additions to treatment plan. Discharge Exam General: No acute distress, nondiaphoretic, well-developed, well-nourished. Cardiac: Atrial fibrillation in the 70s. No murmurs noted. 1+ nonpitting edema in lower extremities bilaterally. Pulm: Clear to auscultation bilaterally without wheezes, rales or rhonchi. No respiratory distress. 95% on room air. Abdominal: Soft, nontender, nondistended. Bowel sounds present. Neuro: A&O x3. No focal neurological deficits. Discharge Plan Discharge Items Patient Disposition: Home - Self-Care Reason For Visit: CHF, ELEVATED TROP Discharge Diagnosis: Heart failure exacerbation, atrial fibrillation with rapid ventricular response, C. difficile Activity: Resume your previous activity Non-emergency contact: Primary Care Provider and Electrification Adviser Call non-emergency contact if: you have any medication questions and your symptoms worsen Follow-up/Referrals: Santos Rivers MD [Primary Care Provider] - 09/30/24 8:00 am Charlotte Oro MD [Physician] - 09/27/24 3:20 pm (At [place] office as Dr. Oro wont be in [place] for awhile) Diet: Low Sodium (2gm) Ambulatory Orders: Basic Metabolic Panel (Routine) Timeframe: [id number] Location: Determined by Patient Ordered By: Shabana Frye Attending Provider Instructions: Mr. Mandel, You were admitted to the hospital due to a heart failure exacerbation. You also had atrial fibrillation with a rapid ventricular response (A fib with RVR). You were also found to have a C. difficile diarrheal infection. Finally, you had an acute kidney injury (KRISSY) has resolved. You were seen by nephrology and cardiology while in the hospital, and there have been some medication changes. Upon discharge from the hospital: * Take metoprolol 25 mg every morning and 100 mg at night. The 25 mg morning dose is new from this hospitalization. This is to control your heart rate. * Take your Bumex (diuretic) once daily NEEDED for fluid retention as discussed with the integrity specialist. * Take Vancomycin (oral antibiotic) 125 mg every 6 hours through 09/24/2024. This is to treat your C. difficile infection. It is important to complete this course of antibiotics even if the diarrhea resolves and you feel well. Not completing the antibiotics can cause the infection to return and make future infections harder to treat. * Take prednisone 20 mg daily x 3 days. Take this in addition to your typical steroid dosing. * Get blood work done on 09/23/24. This is to monitor your kidney function. A lab slip has been provided to you with your discharge papers. * Follow-up with your integrity specialist, Dr. Oro. Your appointment is scheduled for 09/27/2024 at 3:20 PM. * Follow-up with your PCP. Your appointment is scheduled for 09/30/2024 at 8:00 AM. * Recommend you inform your transplant team about your hospitalization. Please return to the hospital if you experience any of the following: Chest pain, heart palpitations, shortness of breath, difficulty breathing, persistent nausea/vomiting/diarrhea, lightheadedness, confusion, passing out, or any other symptoms concerning for you. It was a pleasure taking care of you while you were in the hospital, Shabana Valderrama PA-C Call your Primary Care doctor if any of the following symptoms or problems start or get worse: * Shortness of breath or difficulty breathing * Wake up at night short of breath * Chest pain * Cough * Swelling of your hands, feet, or legs * More fatigued or tired with your normal activity * Palpitations - sudden fast heart beats WEIGHT * Weigh yourself every morning after using the bathroom. * Use the same scale. * Wear the same amount of clothing. * Write your weight down on a chart. * Call your Primary Care doctor if you gain more than 2-3 pounds in 1-2 days. MEDICATIONS * Use this discharge instruction sheet for medication instructions. * Take your medications at the time your doctor ordered. * Do not skip a dose of your medicines. * If you miss a dose of medicine, take it as soon as possible, but DO NOT DOUBLE A DOSE. * Read your medicine information when you get home. * Know all of the side effects of your medicine. If in doubt, ask your pharmacist * Call your Primary Care doctor's office if you have any side effects. * Be sure all of your doctors know what medicine and herbs you take (including cold, flu, and herbal medicine). Take the following with you to your follow-up doctor appointments: * Weight Chart * Medication List * List of questions Do not drink excessive alcohol, beer or wine. Pending Studies at Discharge: No Stand-Alone Forms: [facility] Decoholic, Smoking Cessation Medications and DC Order Prescriptions: New metoprolol succinate 25 mg Tablet Extended Release 24 Hr 25 mg PO QAM Qty: 30 0RF vancomycin 125 mg capsule 125 mg PO Q6H Qty: 20 0RF prednisone 20 mg tablet 20 mg PO DAILY 3 Days Qty: 3 0RF Continued mycophenolate mofetil 250 mg capsule 500 mg PO BID Qty: 360 3RF folic acid 1 mg tablet 1 mg PO BID Qty: 180 3RF pantoprazole 40 mg tablet,delayed release (DR/EC) 40 mg PO BID Qty: 180 3RF ferrous sulfate 325 mg (65 mg iron) tablet 325 mg PO BID Qty: 60 0RF prednisone 5 mg tablet 5 mg PO DAILY Qty: 90 3RF Hold Instructions: Resume on 09/04/24. Resume prednisone 5 mg daily after finishing prednisone taper levothyroxine 125 mcg tablet 125 mcg PO QAM Qty: 90 1RF Rx Instructions: TAKE 1 TABLET BY MOUTH EVERY DAY metoprolol succinate 100 mg tablet extended release 24 hr 100 mg PO HS Qty: 90 1RF ondansetron 4 mg tablet,disintegrating 4 mg PO Q8 PRN (Reason: nausea) Qty: 20 1RF Rx Instructions: Take as needed for nausea allopurinol 100 mg tablet 200 mg PO DAILY Qty: 60 2RF tacrolimus 1 mg capsule 1 - 2 mg PO UD Rx Instructions: Take 2mg by mouth in the morning and 1mg by mouth in the evening magnesium oxide 500 mg magnesium tablet 500 mg PO BID amoxicillin 500 mg capsule 2,000 mg PO DIRECTED PRN (Reason: PRIOR TO DENTAL PROCEDURES) multivitamin Tablet 1 tab PO QAM calcium carbonate 500 mg calcium (1,250 mg) Tablet 500 mg PO QAM acyclovir 400 mg tablet 400 mg PO BID albuterol sulfate 90 mcg/actuation HFA aerosol inhaler 2 inh inhalation Q6H PRN (Reason: shortness of breath or wheezing) Qty: 8.5 0RF danazol 200 mg capsule 200 mg PO BID Changed bumetanide 1 mg tablet 1 mg PO DAILY PRN (Reason: Fluid Retention) Qty: 90 3RF Discharge Orders: Discharge Order (Routine); Ordered 09/20/24 Ordered By: Shabana Davenport/Other Patient Handouts: AFib Dc, Clostridium Difficile Infection Admission Data Admit Date/Time: 09/13/24 09:51 Attending Provider: Addi Ash Admit Provider: Alejandrina Yusuf Primary Care Provider: aSntos Rivers Other Providers: Choco Wood; Charlotte Oro; Ghada Ortega; Caren Gonzalez Hospital Stay Data Consultations 09/13/24 09:22 ED Decision to Admit Stat 09/14/24 07:54 Consult Nephrology Routine 09/15/24 09:35 Consult Oncology Routine 09/15/24 11:08 Consult Cardiology Routine Pending Results Patient Have Any Pending Studies at Discharge: No Discharge Instructions Given to Patient (Per Discharging Provider) Mr. Mandel, [place] were admitted to the hospital due to a heart failure exacerbation. You also had atrial fibrillation with a rapid ventricular response (A fib with RVR). You were also found to have a C. difficile diarrheal infection. Finally, you had an acute kidney injury (KRISSY) has resolved. You were seen by nephrology and cardiology while in the hospital, and there have been some medication changes. Upon discharge from the hospital: * Take metoprolol 25 mg every morning and 100 mg at night. The 25 mg morning dose is new from this hospitalization. This is to control your heart rate. * Take your Bumex (diuretic) once daily NEEDED for fluid retention as discussed with the integrity specialist. * Take Vancomycin (oral antibiotic) 125 mg every 6 hours through 09/24/2024. This is to treat your C. difficile infection. It is important to complete this course of antibiotics even if the diarrhea resolves and you feel well. Not completing the antibiotics can cause the infection to return and make future infections harder to treat. * Take prednisone 20 mg daily x 3 days. Take this in addition to your typical steroid dosing. * Get blood work done on 09/23/24. This is to monitor your kidney function. A lab slip has been provided to you with your discharge papers. * Follow-up with your integrity specialist, Dr. Oro. Your appointment is scheduled for 09/27/2024 at 3:20 PM. * Follow-up with your PCP. Your appointment is scheduled for 09/30/2024 at 8:00 AM. * Recommend you inform your transplant team about your hospitalization. Please return to the hospital if you experience any of the following: Chest pain, heart palpitations, shortness of breath, difficulty breathing, persistent nausea/vomiting/diarrhea, lightheadedness, confusion, passing out, or any other symptoms concerning for you. It was a pleasure taking care of you while you were in the hospital, Shabana Valderrama PA-C Call your Primary Care doctor if any of the following symptoms or problems start or get worse: * Shortness of breath or difficulty breathing * Wake up at night short of breath * Chest pain * Cough * Swelling of your hands, feet, or legs * More fatigued or tired with your normal activity * Palpitations - sudden fast heart beats WEIGHT * Weigh yourself every morning after using the bathroom. * Use the same scale. * Wear the same amount of clothing. * Write your weight down on a chart. * Call your Primary Care doctor if you gain more than 2-3 pounds in 1-2 days. MEDICATIONS * Use this discharge instruction sheet for medication instructions. * Take your medications at the time your doctor ordered. * Do not skip a dose of your medicines. * If you miss a dose of medicine, take it as soon as possible, but DO NOT DOUBLE A DOSE. * Read your medicine information when you get home. * Know all of the side effects of your medicine. If in doubt, ask your pharmacist * Call your Primary Care doctor's office if you have any side effects. * Be sure all of your doctors know what medicine and herbs you take (including cold, flu, and herbal medicine). Take the following with you to your follow-up doctor appointments: * Weight Chart * Medication List * List of questions Do not drink excessive alcohol, beer or wine. Total Time Total Time Spent Total Time Spent (In Minutes): Greater than 30 minutes spent completing this discharge process including direct patient care, medication reconciliation, documentation, review of labs and images, and coordination of care. Coding Level of Care Code 90730 INP/OBS DISCH >30 MIN Diagnoses Acute on chronic diastolic (congestive) heart failure I50.33 Acute kidney injury N17.9 Elevated troponin R79.89 Atrial fibrillation I48.91 Clostridioides difficile diarrhea A04.72 Gout M10.9 CKD (chronic kidney disease) N18.9 Dehydration E86.0 On prednisone therapy Z79.52 Chest pain R07.9 Warm autoimmune hemolytic anemia D59.11
--- NOTE | 2024-09-24 12:47 | Anesthesiology Consultation ---
Date of Service September 24, 2024 Assessment & Plan Chart Review Chart Review: Acceptable Risk for Surgery Consults Requested none History Height/Weight Height: 5 ft 6 in Weight: 104.3 kg Allergies Allergy/AdvReac Type Severity Reaction Status Date / Time clopidogrel [From Plavix] Allergy Unknown Unknown Verified 09/24/24 08:37 [id number] Reductase AdvReac Intermediate myalgias Verified 09/24/24 08:37 Inhibitor [[id number] Reductase Inhibitor] Medications Home Medications Medication Instructions Recorded Confirmed Last Taken mycophenolate mofetil 250 mg 500 mg (2 x 250 mg) PO BID #360 05/29/20 09/24/24 09/12/24 capsule caps amoxicillin 500 mg capsule 2,000 mg PO DIRECTED PRN PRIOR 07/29/20 09/24/24 Unknown TO DENTAL PROCEDURES multivitamin 1 tab PO QAM 08/02/21 09/24/24 09/12/24 folic acid 1 mg tablet 1 mg PO BID #180 tabs 09/20/23 09/24/24 09/12/24 pantoprazole 40 mg tablet,delayed 40 mg PO BID #180 tabs 12/06/23 09/24/24 09/12/24 release calcium carbonate 500 mg PO QAM 01/21/24 09/24/24 09/12/24 ferrous sulfate 325 mg (65 mg 325 mg PO BID #60 tabs 02/05/24 09/24/24 09/12/24 iron) tablet levothyroxine 125 mcg tablet 125 mcg PO QAM #90 tabs 03/04/24 09/24/24 09/12/24 metoprolol succinate 100 mg 100 mg PO HS #90 tabs 04/22/24 09/24/24 09/12/24 tablet,extended release 24 hr acyclovir 400 mg tablet 400 mg PO BID 05/07/24 09/24/24 09/12/24 ondansetron 4 mg disintegrating 4 mg PO Q8 PRN nausea #20 tabs 05/22/24 09/24/24 Unknown tablet magnesium oxide 500 mg PO BID 08/09/24 09/24/24 09/12/24 albuterol sulfate 90 mcg/actuation 2 inh inhalation Q6H PRN shortness 08/25/24 09/24/24 Unknown aerosol inhaler of breath or wheezing #8.5 grams tacrolimus 1 mg capsule, 1 - 2 mg PO UD 08/30/24 09/24/24 09/12/24 immediate-release danazol 200 mg capsule 200 mg PO BID 09/13/24 09/24/24 09/12/24 bumetanide 1 mg tablet 1 mg PO DAILY PRN Fluid Retention 09/20/24 09/24/24 09/12/24 #90 tabs metoprolol succinate 25 mg 25 mg PO QAM #30 tabs 09/20/24 09/24/24 Unknown tablet,extended release 24 hr vancomycin 125 mg capsule 125 mg PO Q6H #20 caps 09/20/24 09/24/24 Unknown allopurinol 100 mg tablet 100 mg PO BID 09/24/24 09/24/24 Unknown prednisone 5 mg tablet 5 mg PO QAM 09/24/24 09/24/24 Unknown Past Medical History Medical History (Updated 09/24/24 @ 09:29 by Alona Sims) Hx of sepsis due to pneumonia, ~07/26/24, hospitalized at [facility] Erosive esophagitis hx, EGD 08/2023 History of Clostridioides difficile infection dx 09/14/24, [facility]; 09/24/24, per pt, "will be finishing abx in next day or so" CKD (chronic kidney disease) f/u ar nephrology Bilateral leg edema "has some, has gotten better" Hx of adrenal insufficiency Hx of right bundle branch block f/u ar cardiology History of recent hospitalization pt admitted to [facility] multiple times over 2023 (01/21/24, 05/2024-sx, 07/13/24, 07/26/24, 08/22/24, 08/24/24); most recent visit 08/24/24 per records "63-year-old male with past medical history significant for HFpEF, A-fib, ESRD, WAHA, and additional chronic medical conditions who is presenting for sudden onset of chest pain with shortness of breath after exertion following eating out at [employer] followed by increased activity with cutting wood and developed chest pain. CXR with evidence for volume overload and was provided IV Lasix last nitro on admission with improvement/resolution of symptoms. Also with KRISSY that was likely due to hypotension/hypoperfusion and increased diuretic use recently; improving. Also with A-fib RVR, suspect due to increased salt load/increased activity/untreated CHERELLE." Hx of gout Hx of congestive heart failure Sleep apnea, obstructive no device Hypocalcemia hx Weakness Elevated troponin hx, 07/2024; f/u [facility] cardiology Atrial fibrillation with rapid ventricular response controlled w/ metoprolol; f/u [facility] cardiology Hypotension pt unaware? 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 Abdominal aortic aneurysm 4.9 cm on 01/2023 chest CTA; monitoring History of colon polyps Retroperitoneal mass lesion biopsy negative for malignancy 05/2022 per transplant record 03/17/23 Pneumonia hx, ~08/23/24 Adrenal nodule monitored by PCP Arthritis On prednisone therapy Rosales's esophagus with esophagitis Atrial flutter hx 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 Thoracic ascending aortic aneurysm 4.[address] 01/19/24 Hypertension controlled, stable per pt Limb alert care status left arm restriction History of blood transfusion ~07/2024 Hx of herpetic maria History of COVID-19 07/2020- covid pneumonia, hospitalized; resolved History of renal dialysis prior to kidney transplant; has dialysis fistula left arm History of CVA (cerebrovascular accident) 2008, mild memory changes Past Family History Family History Grandmother (Maternal) Alzheimer disease Mother Depression Denies family history of Ovarian cancer Prostate cancer Diabetes Heart disease Myocardial infarction Breast cancer Lung cancer COPD (chronic obstructive pulmonary disease) Colorectal cancer Hypertension Stroke Past Surgical History Surgical History History of total right hip arthroplasty Hx of kidney transplant 02/2010- [facility], [place], [place] History of esophagogastroduodenoscopy (EGD) Hx of cholecystectomy Hx of exploratory laparotomy History of colonoscopy Social History Smoking Status: Never smoker Do You Dip or Chew Tobacco: No Hx Alcohol Use: Yes Alcohol type: beer alcohol intake frequency: other Hx Substance Use: No substance use type: does not use Physical Exam Vital Signs Last Vital Signs Temp 36.7 C 09/20/24 09:29 Pulse 71 09/20/24 09:29 Resp 18 09/20/24 09:29 BP 126/83 09/20/24 09:29 Pulse Ox 95 09/20/24 09:29 O2 Del Method Room Air 09/20/24 08:29 Testing Laboratory Results 09/20/24 07:52 09/20/24 07:52 Urine Color [place] 09/13/24 23:40 Urine Appearance Clear (Clear) 09/13/24 23:40 Urine pH 5.0 (4.5-7.5) 09/13/24 23:40 Ur Specific [place] 1.019 (1.000-1.030) 09/13/24 23:40 Urine Protein 1+ (Negative) H 09/13/24 23:40 Urine Glucose (UA) Negative (Negative) 09/13/24 23:40 Urine Ketones Negative (Negative) 09/13/24 23:40 Urine Nitrite Positive (Negative) A 09/13/24 23:40 Ur Leukocyte Esterase Trace (Negative) H 09/13/24 23:40 Urine WBC (Auto) 0-5 /hpf (0-5) 09/13/24 23:40 Urine RBC (Auto) 0-2 /hpf (0-2) 09/13/24 23:40 U Hyaline Cast (Auto) 11-20 /lpf (0-2) H 09/13/24 23:40 U Epithel Cells (Auto) 0-2 /hpf (0-2) 09/13/24 23:40 Urine Bacteria (Auto) None Seen (None Seen) 09/13/24 23:40 Blood Type A Positive 09/19/24 05:47 Antibody Screen POSITIVE A 09/19/24 05:47 09/13/24 23:40 Urine Culture - Final Urine,Clean Catch No growth - less than 1,000 colonies/mL.
== END 2024-09-20 10:50 | disposition home or self-care (01) | DRG 291 ==
LOC: ED 07:03 → EDINP 09:51 → SUATTDRO 09:51 → 2W 12:22

== ENCOUNTER 2024-09-29 23:38 | Inpatient (IN) ==
--- NOTE | 2024-09-30 00:07 | Emergency Department Note ---
Impression & Plan Acute kidney injury, Acute exacerbation of CHF (congestive heart failure), Kidney transplant status, living unrelated donor, Rhinovirus infection, Infiltrate of lower lobe of right lung present on imaging study ED Provider Note CHIEF COMPLAINT: "I just do not feel good" HISTORY OF PRESENT ILLNESS: This 63-year-old male patient with significant pmh CHF, atrial fibrillation, kidney transplant (living unrelated donor), CKD, presents to the emergency department via private vehicle for evaluation of general illness. The patient states that states today, he has been feeling weak, fatigued, and states "my bones hurt". The patient states he has noticed that his legs seem to be filling up with fluid more so than usual. He denies any associated chest pain. He states he did have a decreased appetite last night. He denies any fever, but states his thought he felt warm this evening. He denies any dysuria, urinary frequency, urinary hesitancy. No abdominal pain. No nausea or vomiting. No numbness or tingling. He states his legs feel very heavy. No chest pain. He has been feeling somewhat more short of breath than usual. He has been taking his regular medications but has not taken any additional medications. He is uncertain of his diet over the past few days. History provided by: Patient REVIEW OF SYSTEMS: A 10 system review of systems was performed with positives and pertinent negatives listed in the history of present illness. All other systems were reviewed and are negative. ALLERGIES: Plavix, statins PHYSICAL EXAM: VITALS: Vitals are noted on the nurse's note and reviewed by myself. GENERAL: This is a 63 year old male, in no acute distress, nondiaphoretic, well- developed well-nourished. SKIN: 3+ pitting edema in the bilateral lower extremities to the knees. The skin was without rashes, erythema, edema, or bruising. There is no tenting of the skin. Capillary refill less than 2 seconds. HEAD: Normocephalic atraumatic. EYES: Conjunctivae without injection, sclerae without icterus. NOSE: Patent, turbinates without inflammation or discharge. No sinus tenderness. MOUTH: Mucous membranes moist. Tonsils are not enlarged. Pharynx without erythema or exudate. Uvula midline. Airway patent. Tongue does not deviate. NECK: Supple without nuchal rigidity. No lymphadenopathy. Cervical spine is nontender. No JVD. HEART: Regular rate and rhythm without murmurs gallops or rubs. LUNGS: Clear to auscultation bilaterally without wheezes, rales or rhonchi. No retractions or accessory muscle use. ABDOMEN: Positive bowel sounds x 4. Soft, nontender, without masses or organomegaly. Cohn sign negative. No guarding or rebound tenderness. MUSCULOSKELETAL: No muscle atrophy, erythema, or edema noted. Full range of motion without joint tenderness in all extremities. No tenderness to palpation. Normal gait. Strength 5/5 throughout. NEURO: Patient was alert and oriented to person place and time. No focal neurological deficits. An order was placed for continuous manager cardiac. The monitor showed an atrial fibrillation at a ventricular rate of 114 bpm, per my interpretation. EKG was reviewed by myself and found to be atrial fibrillation with RVR at a rate of 110 beats per minute and per my interpretation reveals no ST elevation or depression. No significant change when compared to prior EKG completed on 09/13/2025 Imaging as interpreted by myself and the radiologist revealed new ill-defined opacity at the right lung base, with radiologist interpretation as above. I agree with the radiologist's findings as based upon my independent interpretation. EMERGENCY DEPARTMENT COURSE: The patient was seen and evaluated as above. The patient presents to the emergency department for generalized illness. He has been feeling somewhat weak, fatigued, had dizzy, and states his body aches. He does have a history of CKD, CHF, atrial fibrillation. Pt. unclear on whether he has felt ill. He states thought he maybe felt warm earlier in the evening. IV access obtained, labs were drawn. Labs reviewed. There was a leukocytosis of 15,000. Hemoglobin was 9. This is consistent with patient's baseline. No thrombocytopenia. INR mildly elevated 1.2. Renal function does show creatinine of 2.1. This is higher than the patient's baseline 1.1-1.3. Magnesium low 1.4. Transaminases not significantly elevated. BNP 597. Troponin 48.1. Procalcitonin elevated at 0.78. Urinalysis does show trace ketones, trace leukocyte esterase, epithelial cells. Respiratory bio fire testing was completed and was positive for rhinovirus/enterovirus. EKG and chest x-ray as above. Chest x-ray does show a new ill-defined opacity at the right lung base, suspicious for progression of congestive lung changes/interstitial edema or superadded infection. Stable cardiomegaly. Given the above findings, I did recommend treatment with antibiotics and Lasix. I am concerned that the patient has developed a pneumonia given his leukocytosis, subjective fever, and new right lung opacity. I did Recommend inpatient care due to KRISSY, concern for infection, elevated troponin, and fluid overload/CHF. Patient was medicated with IV cefepime and furosemide. He was not fluid resuscitated while in the emergency department due to history of CHF and fluid overload with concern for acute on chronic CHF. Case was discussed with the attending physician. I discussed the case with Dr. Morel, [facility] hospitalist physician. She did agree to evaluate the patient for admission. Please see hospitalist dictation regarding ongoing management care of this patient. I attest that I have personally reviewed the patient medication list. I attest that I have reviewed the patient's blood pressure and it was found to be normal GCS: 15 In the evaluation and treatment of this patient the following differential diagnoses were entertained: Reactive airway disease, pneumonia, pneumothorax, COPD, CHF, infections, cardiac ischemia, pulmonary embolism, musculoskeletal, gastrointestinal, as well as other pathologies. The chart was completed utilizing [employer] Speech voice recognition software. Grammatical errors, random word insertions, pronoun errors, and incomplete sentences are an occasional consequence of this system due to software limitations, ambient noise, and hardware issues. Any formal questions or concerns about the content, text, or information contained within the body of this dictation should be directly addressed to the provider for clarification. Past Med/Surg History Problem List (Updated 09/30/24 @ 02:56 by Alessandra Barrios PA-C) Infiltrate of lower lobe of right lung present on imaging study (Acute) Rhinovirus infection (Acute) Acute kidney injury (Acute) Clostridioides difficile diarrhea Sleep apnea, obstructive RBBB (right bundle branch block with left anterior fascicular block) Diastolic CHF Human metapneumovirus (hMPV) pneumonia Atrial fibrillation Acute on chronic diastolic (congestive) heart failure Infection due to human metapneumovirus (hMPV) (Acute) Hypomagnesemia (Acute ~09/17/24) Pneumonia (Acute) Adrenal insufficiency Bilateral leg edema Atrial fibrillation with rapid ventricular response Sepsis due to pneumonia Kidney transplant status, living unrelated donor (Acute) Acute exacerbation of CHF (congestive heart failure) (Acute) Status post right hip replacement LVH (left ventricular hypertrophy) Coronary artery calcification CKD (chronic kidney disease) 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 Status post kidney transplant Warm autoimmune hemolytic anemia On prednisone therapy Ground glass opacity present on imaging of lung Rosales's esophagus with esophagitis Macrocytic anemia Erosive esophagitis EGD 08/2023 Abnormal findings on diagnostic imaging of other abdominal regions, including retroperitoneum Arthritis of right hip Hip arthritis Adrenal nodule [place] PCP considering adrenal protocol CT or MRI for characterization Herpetic maria Aneurysm Abnormal LFTs Pneumonia Acute non-ST elevation myocardial infarction (NSTEMI) (Acute) 01/31/23 Megaloblastic anemia (Acute) Cerumen impaction Retroperitoneal mass lesion biopsy negative for malignancy 05/2022 per transplant record 03/17/23 Hypotension Diarrhea Adenomatous polyps Vitamin D deficiency Chronic kidney disease, stage 3a COVID-19 (Acute) Acute respiratory failure with hypoxemia (Acute) 07/29/20 Anemia (Chronic) hospitalized at [facility] 07/2023, received blood transfusion 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 History of esophageal reflux (Chronic) controlled, stable per pt Hyperlipidemia (Chronic) Hypothyroidism (Chronic) Obesity (Chronic) Osteoporosis (Chronic) Proteinuria (Chronic) Medical History Hx of sepsis due to pneumonia, ~07/26/24, hospitalized at [facility] Erosive esophagitis hx, EGD 08/2023 History of Clostridioides difficile infection dx 09/14/24, [facility]; 09/24/24, per pt, "will be finishing abx in next day or so" CKD (chronic kidney disease) f/u [facility] nephrology Bilateral leg edema "has some, has gotten better" Hx of adrenal insufficiency Hx of right bundle branch block f/u [facility] cardiology History of recent hospitalization pt admitted to [facility] multiple times over 2023 (01/21/24, 05/2024-sx, 07/13/24, 07/26/24, 08/22/24, 08/24/24); most recent visit 08/24/24 per records "63-year-old male with past medical history significant for HFpEF, A-fib, ESRD, WAHA, and additional chronic medical conditions who is presenting for sudden onset of chest pain with shortness of breath after exertion following eating out at [facility] [employer] followed by increased activity with cutting wood and developed chest pain. CXR with evidence for volume overload and was provided IV Lasix last nitro on admission with improvement/resolution of symptoms. Also with KRISSY that was likely due to hypotension/hypoperfusion and increased diuretic use recently; improving. Also with A-fib RVR, suspect due to increased salt load/increased activity/untreated CHERELLE." Rhinovirus infection Hypomagnesemia Hx of gout Hx of congestive heart failure Sleep apnea, obstructive no device Hypocalcemia hx Weakness Elevated troponin hx, 07/2024; f/u [facility] Atrial fibrillation with rapid ventricular response controlled w/ metoprolol; f/u [facility] Hypotension pt unaware? 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 Abdominal aortic aneurysm 4.9 cm on 01/2023 chest CTA; monitoring History of colon polyps Retroperitoneal mass lesion biopsy negative for malignancy 05/2022 per transplant record 03/17/23 Pneumonia hx, ~08/23/24 Adrenal nodule monitored by PCP Arthritis On prednisone therapy Rosales's esophagus with esophagitis Atrial flutter hx 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 Thoracic ascending aortic aneurysm 4.[address] 01/19/24 Hypertension controlled, stable per pt Limb alert care status left arm restriction History of blood transfusion ~07/2024 Hx of herpetic maria History of COVID-19 07/2020- covid pneumonia, hospitalized; resolved History of renal dialysis prior to kidney transplant; has dialysis fistula left arm History of CVA (cerebrovascular accident) 2008, mild memory changes Surgical History History of total right hip arthroplasty Hx of kidney transplant 02/2010- [facility] [place], [place] History of esophagogastroduodenoscopy (EGD) Hx of cholecystectomy Hx of exploratory laparotomy History of colonoscopy Family History Grandmother (Maternal) Alzheimer disease Mother Depression Denies family history of Ovarian cancer Prostate cancer Diabetes Heart disease Myocardial infarction Breast cancer Lung cancer COPD (chronic obstructive pulmonary disease) Colorectal cancer Hypertension Stroke Social History Smoking Status: Never smoker Second Hand Exposure: No; Do You Dip or Chew Tobacco: No; Hx Alcohol Use: Yes Alcohol type: beer Alcohol Intake Frequency: Monthly or Less Hx Substance Use: No 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: Polish Communication Ability: Effective Visual Impairment: No Limitations Hearing Ability: Normal Photostat Operator Helper Required: No Beliefs That Will Affect Care: None marital status: Current Living Situation: Spouse current occupational status: employed current occupation: [employer] How many Children do You have: 1 Feels Safe at Home: Yes Childhood Exposure to Second-Hand Smoke: No Dental Care, Regularly: Yes Seatbelt Use: sometimes Sunscreen Use: No Assistive Devices: None Allergies Allergies Allergy/AdvReac Type Severity Reaction Status Date / Time clopidogrel [From Plavix] Allergy Unknown Unknown Verified 09/27/24 15:34 Jukdded-VBB-JbR Reductase AdvReac Intermediate myalgias Verified 09/27/24 15:34 Inhibitor [Tuchemn-Qux-Riq Reductase Inhibitor] Home Meds Home Medications Medication Instructions Recorded Confirmed amoxicillin 500 mg capsule 2,000 mg PO DIRECTED PRN PRIOR 07/29/20 09/30/24 TO DENTAL PROCEDURES multivitamin 1 tab PO QAM 08/02/21 09/30/24 calcium carbonate 500 mg PO QAM 01/21/24 09/30/24 acyclovir 400 mg tablet 400 mg PO BID 05/07/24 09/30/24 magnesium oxide 500 mg PO BID 08/09/24 09/30/24 tacrolimus 1 mg capsule, 1 - 2 mg PO UD 08/30/24 09/30/24 immediate-release danazol 200 mg capsule 200 mg PO BID 09/13/24 09/30/24 allopurinol 100 mg tablet 100 mg PO BID 09/24/24 09/30/24 prednisone 5 mg tablet 5 mg PO QDB 09/24/24 09/30/24 Previous Rx's Medication Instructions Recorded mycophenolate mofetil 250 mg 500 mg (2 x 250 mg) PO BID #360 05/29/20 capsule caps folic acid 1 mg tablet 1 mg PO BID #180 tabs 09/20/23 pantoprazole 40 mg tablet,delayed 40 mg PO BID #180 tabs 12/06/23 release ferrous sulfate 325 mg (65 mg 325 mg PO BID #60 tabs 02/05/24 iron) tablet metoprolol succinate 100 mg 100 mg PO HS #90 tabs 04/22/24 tablet,extended release 24 hr ondansetron 4 mg disintegrating 4 mg PO Q8 PRN nausea #20 tabs 05/22/24 tablet albuterol sulfate 90 mcg/actuation 2 inh inhalation Q6H PRN shortness 08/25/24 aerosol inhaler of breath or wheezing #8.5 grams metoprolol succinate 25 mg 25 mg PO QAM #30 tabs 09/20/24 tablet,extended release 24 hr bumetanide 1 mg tablet 1 mg PO DAILY Fluid Retention #90 09/27/24 tabs levothyroxine 125 mcg tablet 125 mcg PO QAM #90 tabs 09/27/24 Results & Data (ED) Vital Signs Vital Signs - 24 hr 09/29/24 23:48 09/30/24 00:06 09/30/24 00:13 Temperature 37.2 C Temperature Source Temporal Artery Scan Pulse Rate 114 H 106 H Respiratory Rate 20 Respiratory Effort / Characteristics Non-Labored Respiratory Depth Normal Blood Pressure 120/71 Blood Pressure Mean 87 Pulse Oximetry 97 95 Oxygen Delivery Method Room Air Room Air Sepsis Recent Fever Within 48 Hours No Sepsis New/Unexplained Change in Mental Status No Sepsis Action Taken by Nursing No Action Required 09/30/24 00:30 09/30/24 01:00 09/30/24 02:00 Temperature Temperature Source Pulse Rate 105 H 107 H 91 H Respiratory Rate 20 20 20 Respiratory Effort / Characteristics Respiratory Depth Blood Pressure 128/97 109/68 109/82 Blood Pressure Mean 107 73 88 Pulse Oximetry 98 98 99 Oxygen Delivery Method Room Air Room Air Room Air Sepsis Recent Fever Within 48 Hours Sepsis New/Unexplained Change in Mental Status Sepsis Action Taken by Nursing Laboratory Data 09/30/24 00:05 09/30/24 00:05 Lab Results 09/30/24 09/30/24 09/30/24 Range/Units 00:05 00:06 00:11 WBC 15.07 H (4.8-10.8) K/ul RBC 2.56 L (4.70-6.10) M/uL Hgb 9.0 L (14.0-18.0) g/dl Hct 27.3 L (42.0-52.0) % MCV 106.6 H (80.0-100.0) fL MCH 35.2 H (25.0-34.0) pg MCHC 33.0 (32.0-36.0) g/dL RDW Std Deviation 63.7 H (36.4-46.3) fL RDW Coeff of Jaye 16.6 H (11.5-14.5) % Plt Count 357 (130-400) K/uL MPV 9.6 (9.4-12.4) fL Immature Gran % (Auto) 1.1 % Neut % (Auto) 86.5 % Lymph % (Auto) 2.7 % Stearns % (Auto) 9.2 % Eos % (Auto) 0.3 % Baso % (Auto) 0.2 % Neut # (Auto) 13.05 H (1.40-6.50) K/uL Lymph # (Auto) 0.41 L (1.20-3.40) K/uL Stearns # (Auto) 1.38 H (0.11-0.59) K/uL Eos # (Auto) 0.04 (0.00-0.50) K/uL Baso # (Auto) 0.03 (0.00-0.20) K/uL Immature Gran # (Auto) 0.16 (0.01-0.20) K/uL PT 12.6 H (9.0-12.0) Seconds INR 1.2 H (0.9-1.1) APTT 28 (21-31) Seconds PTT Ratio 1.0 Sodium 134 L (136-145) mmol/L Potassium 4.6 (3.5-5.1) mmol/L Chloride 101 (98-107) mmol/L Carbon Dioxide 23 (21-32) mmol/L Anion Gap 10 (3-11) BUN 61 H (6-23) mg/dl Creatinine 2.10 H (0.6-1.4) mg/dl Est Cr Clr Drug Dosing 41.7 ml/min eGFR 34.72 BUN/Creatinine Ratio 29.0 H (10-20) Glucose 104 H (70-99(Fasting)) mg/dl Lactate (0.4-2.0) mmol/L Calcium 9.1 (8.6-10.3) mg/dl Magnesium 1.4 L (1.7-2.4) mg/dl Total Bilirubin 1.9 H (0.2-1.0) mg/dl AST 25 (13-39) U/L ALT 18 (7-52) U/L Alkaline Phosphatase 70 (34-104) U/L Troponin I High Sens 48.1 H (0-20) pg/ml B-Natriuretic Peptide 597 H (0-100) pg/ml Total Protein 7.2 (6.0-8.3) gm/dl Albumin 3.7 (3.4-5.0) gm/dl Globulin 3.5 (2.5-4.0) gm/dl Albumin/Globulin Ratio 1.1 (0.9-2) Procalcitonin 0.78 H (0-0.5) ng/ml Urine Color Dark Yellow Urine Appearance Cloudy A (Clear) Urine pH 5.0 (4.5-7.5) Ur Specific [place] 1.019 (1.000-1.030) Urine Protein 1+ H (Negative) Urine Glucose (UA) Negative (Negative) Urine Ketones Trace H (Negative) Urine Blood Negative (Negative) Urine Nitrite Negative (Negative) Urine Bilirubin 1+ H (Negative) Urine Urobilinogen Negative (Negative) Ur Leukocyte Esterase Trace H (Negative) Urine WBC (Auto) 0-5 (0-5) /hpf Urine RBC (Auto) 0-2 (0-2) /hpf U Hyaline Cast (Auto) >20 H (0-2) /lpf U Epithel Cells (Auto) 3-5 H (0-2) /hpf Urine Bacteria (Auto) None Seen (None Seen) Granular Casts Present A (None Prsent) /lpf Adenovirus (PCR) Not Detected (NotDetected) B. pertussis DNA (PCR) Not Detected (NotDetected) B.parapertussis DNA PCR Not Detected (NotDetected) C. pneumoniae DNA (PCR) Not Detected (NotDetected) Coronavirus OC43 (PCR) Not Detected (NotDetected) Coronavirus HKU1 (PCR) Not Detected (NotDetected) Coronavirus 229E (PCR) Not Detected (NotDetected) SARS-CoV-2 (PCR) Not Detected (NotDetected) Coronavirus NL63 (PCR) Not Detected (NotDetected) Human Metapneumovir PCR Not Detected (NotDetected) Influenza Type A (PCR) Not Detected (NotDetected) Influenza Type B (PCR) Not Detected (NotDetected) M. pneumoniae (PCR) Not Detected (NotDetected) Parainfluenza 1 (PCR) Not Detected (NotDetected) Parainfluenza 2 (PCR) Not Detected (NotDetected) Parainfluenza 3 (PCR) Not Detected (NotDetected) Parainfluenza 4 (PCR) Not Detected (NotDetected) RSV (PCR) Not Detected (NotDetected) Entero/Rhino (PCR) DETECTED A (NotDetected) 09/30/24 Range/Units 02:06 WBC (4.8-10.8) K/ul RBC (4.70-6.10) M/uL Hgb (14.0-18.0) g/dl Hct (42.0-52.0) % MCV (80.0-100.0) fL MCH (25.0-34.0) pg MCHC (32.0-36.0) g/dL RDW Std Deviation (36.4-46.3) fL RDW Coeff of Jaye (11.5-14.5) % Plt Count (130-400) K/uL MPV (9.4-12.4) fL Immature Gran % (Auto) % Neut % (Auto) % Lymph % (Auto) % Stearns % (Auto) % Eos % (Auto) % Baso % (Auto) % Neut # (Auto) (1.40-6.50) K/uL Lymph # (Auto) (1.20-3.40) K/uL Stearns # (Auto) (0.11-0.59) K/uL Eos # (Auto) (0.00-0.50) K/uL Baso # (Auto) (0.00-0.20) K/uL Immature Gran # (Auto) (0.01-0.20) K/uL PT (9.0-12.0) Seconds INR (0.9-1.1) APTT (21-31) Seconds PTT Ratio Sodium (136-145) mmol/L Potassium (3.5-5.1) mmol/L Chloride (98-107) mmol/L Carbon Dioxide (21-32) mmol/L Anion Gap (3-11) BUN (6-23) mg/dl Creatinine (0.6-1.4) mg/dl Est Cr Clr Drug Dosing ml/min eGFR BUN/Creatinine Ratio (10-20) Glucose (70-99(Fasting)) mg/dl Lactate 1.0 (0.4-2.0) mmol/L Calcium (8.6-10.3) mg/dl Magnesium (1.7-2.4) mg/dl Total Bilirubin (0.2-1.0) mg/dl AST (13-39) U/L ALT (7-52) U/L Alkaline Phosphatase (34-104) U/L Troponin I High Sens (0-20) pg/ml B-Natriuretic Peptide (0-100) pg/ml Total Protein (6.0-8.3) gm/dl Albumin (3.4-5.0) gm/dl Globulin (2.5-4.0) gm/dl Albumin/Globulin Ratio (0.9-2) Procalcitonin (0-0.5) ng/ml Urine Color Urine Appearance (Clear) Urine pH (4.5-7.5) Ur Specific [place] (1.000-1.030) Urine Protein (Negative) Urine Glucose (UA) (Negative) Urine Ketones (Negative) Urine Blood (Negative) Urine Nitrite (Negative) Urine Bilirubin (Negative) Urine Urobilinogen (Negative) Ur Leukocyte Esterase (Negative) Urine WBC (Auto) (0-5) /hpf Urine RBC (Auto) (0-2) /hpf U Hyaline Cast (Auto) (0-2) /lpf U Epithel Cells (Auto) (0-2) /hpf Urine Bacteria (Auto) (None Seen) Granular Casts (None Prsent) /lpf Adenovirus (PCR) (NotDetected) B. pertussis DNA (PCR) (NotDetected) B.parapertussis DNA PCR (NotDetected) C. pneumoniae DNA (PCR) (NotDetected) Coronavirus OC43 (PCR) (NotDetected) Coronavirus HKU1 (PCR) (NotDetected) Coronavirus 229E (PCR) (NotDetected) SARS-CoV-2 (PCR) (NotDetected) Coronavirus NL63 (PCR) (NotDetected) Human Metapneumovir PCR (NotDetected) Influenza Type A (PCR) (NotDetected) Influenza Type B (PCR) (NotDetected) M. pneumoniae (PCR) (NotDetected) Parainfluenza 1 (PCR) (NotDetected) Parainfluenza 2 (PCR) (NotDetected) Parainfluenza 3 (PCR) (NotDetected) Parainfluenza 4 (PCR) (NotDetected) RSV (PCR) (NotDetected) Entero/Rhino (PCR) (NotDetected) Administered Medications Discontinued Medications Furosemide (Furosemide 40 Mg/4 Ml Vial) 40 mg IV ONE ONE Stop: 09/30/24 01:41 Last Admin: 09/30/24 02:10 Dose: 40 mg Documented By: TY Cefepime HCl (Maxipime 2000mg) 2,000 mg in 20 mls @ 5 mls/min IV NOW STA; Protocol Stop: 09/30/24 01:43 Last Admin: 09/30/24 02:11 Dose: 5 mls/min Documented By: TY Imaging Data Radiologist's Impression: Chest X-Ray 09/29/24 23:53 EXAM: XR chest 1V portable CLINICAL HISTORY: DYSPNEA JMF TECHNIQUE: An X-ray image of the chest is obtained in frontal projection. COMPARISON: 09/13/2024. FINDINGS: Pulmonary Parenchyma: Redemonstration of the hilar and pulmonary congestive lung changes/interstitial edema Newly depicted ill-defined opacity at the right lung base could represent the progression of the congestive lung changes/interstitial edema or superadded infection No evidence of pleural effusion or pleural thickening. Heart and Mediastinum: Stable cardiomegaly Bony Thorax: Bony thorax appears intact without fractures or deformities. Soft Tissues: Soft tissues overlying the chest wall are unremarkable. IMPRESSION: 1. Stable cardiomegaly. 2. Redemonstration of the hilar and pulmonary congestive lung changes/interstitial edema. 3. Newly depicted ill-defined opacity at the right lung base which could represent progression of the congestive lung changes/interstitial edema or superadded infection. Clinical correlation and follow up are advised. Electronically signed by Giuseppe Real 09-30-2024 01:11 AM Discharge Plan Visit Data Chief Complaint: Dehydration Stated Complaint: DEHYDRATION,HARD TIME BREATHING ED Provider: Nic Starks ED Midlevel Provider: Alessandra Barrios Discharge Problem: Acute kidney injury, Acute exacerbation of CHF (congestive heart failure), Kidney transplant status, living unrelated donor, Rhinovirus infection, Infiltrate of lower lobe of right lung present on imaging study Patient Disposition: Admitted As Inpatient Forms Stand Alone Forms: [facility] Prescriptions Prescriptions: No Action mycophenolate mofetil 250 mg capsule 500 mg PO BID Qty: 360 3RF folic acid 1 mg tablet 1 mg PO BID Qty: 180 3RF pantoprazole 40 mg tablet,delayed release (DR/EC) 40 mg PO BID Qty: 180 3RF ferrous sulfate 325 mg (65 mg iron) tablet 325 mg PO BID Qty: 60 0RF metoprolol succinate 100 mg tablet extended release 24 hr 100 mg PO HS Qty: 90 1RF ondansetron 4 mg tablet,disintegrating 4 mg PO Q8 PRN (Reason: nausea) Qty: 20 1RF Rx Instructions: Take as needed for nausea levothyroxine 125 mcg tablet 125 mcg PO QAM Qty: 90 1RF Rx Instructions: TAKE 1 TABLET BY MOUTH EVERY DAY tacrolimus 1 mg capsule 1 - 2 mg PO UD Rx Instructions: Take 2mg by mouth in the morning and 1mg by mouth in the evening magnesium oxide 500 mg magnesium tablet 500 mg PO BID bumetanide 1 mg tablet 1 mg PO DAILY Qty: 90 3RF amoxicillin 500 mg capsule 2,000 mg PO DIRECTED PRN (Reason: PRIOR TO DENTAL PROCEDURES) multivitamin Tablet 1 tab PO QAM calcium carbonate 500 mg calcium (1,250 mg) Tablet 500 mg PO QAM prednisone 5 mg tablet 5 mg PO QDB allopurinol 100 mg tablet 100 mg PO BID acyclovir 400 mg tablet 400 mg PO BID albuterol sulfate 90 mcg/actuation HFA aerosol inhaler 2 inh inhalation Q6H PRN (Reason: shortness of breath or wheezing) Qty: 8.5 0RF danazol 200 mg capsule 200 mg PO BID metoprolol succinate 25 mg Tablet Extended Release 24 Hr 25 mg PO QAM Qty: 30 0RF Referrals Referrals: Santos Rivers MD [Primary Care Provider] -
[2024-09-30 00:26] LABS: Basophils # (auto) 0.03 K/uL (0.00-0.20); Basophils % (auto) 0.2 %; Eosinophils # (auto) 0.04 K/uL (0.00-0.50); Eosinophils % (auto) 0.3 %; Hematocrit (blood only) 27.3 % (42.0-52.0); Immature Granulocytes # (auto) 0.16 K/uL (0.01-0.20); Immature Granulocytes % (auto) 1.1 %; Lymphocytes # (auto) 0.41 K/uL (1.20-3.40); Lymphocytes % (auto) 2.7 %; Mean Corpuscular Hemoglobin 35.2 pg (25.0-34.0); Mean Corpuscular Volume 106.6 fL (80.0-100.0); Mean Platelet Volume 9.6 fL (9.4-12.4); Monocytes # (auto) 1.38 K/uL (0.11-0.59); Monocytes % (auto) 9.2 %; Neutrophils # (auto) 13.05 K/uL (1.40-6.50); Neutrophils % (auto) 86.5 %; Platelet Count 357 K/uL (130-400); RDW Coefficient of Variation 16.6 % (11.5-14.5); RDW Standard Deviation 63.7 fL (36.4-46.3); Red Blood Count 2.56 M/uL (4.70-6.10); White Blood Count 15.07 K/ul (4.8-10.8)
[2024-09-30 00:37] LABS: Appearance Urine Cloudy (Clear); Bacteria Urine Automated None Seen (None Seen); Bilirubin Urine 1+ (Negative); Blood Urine Negative (Negative); Cast Urine Automated >20 /lpf (0-2); Color Urine Dark Yellow; Glucose Urine UA Negative (Negative); Granular Casts Urine Present /lpf (None Prsent); Ketones Urine Trace (Negative); Leukocyte Esterase Urine Trace (Negative); Nitrite Urine Negative (Negative); Protein Urine 1+ (Negative); RBC Urine Automated 0-2 /hpf (0-2); Specific Gravity Urine 1.019 (1.000-1.030); Urobilinogen Urine Negative (Negative); WBC Urine Automated 0-5 /hpf (0-5)
[2024-09-30 00:41] LABS: Bilirubin,Total 1.9 mg/dl (0.2-1.0); Calcium 9.1 mg/dl (8.6-10.3); Creatinine Clr Calc Pharmacy 41.7 ml/min; Magnesium 1.4 mg/dl (1.7-2.4); Potassium 4.6 mmol/L (3.5-5.1)
[2024-09-30 00:42] LABS: Albumin Globulin Ratio 1.1 (0.9-2); Albumin Level 3.7 gm/dl (3.4-5.0); Globulin 3.5 gm/dl (2.5-4.0); Total Protein 7.2 gm/dl (6.0-8.3)
[2024-09-30 00:48] LABS: Troponin I High Sensitivity 48.1 pg/ml (0-20)
[2024-09-30 00:50] LABS: INR 1.2 (0.9-1.1); Partial Thromboplastin Time 28 Seconds (21-31); Prothrombin Time 12.6 Seconds (9.0-12.0)
[2024-09-30 01:01] LABS: Adenovirus PCR Not Detected (NotDetected); Bordetella parapertussis PCR Not Detected (NotDetected); Bordetella pertussis PCR Not Detected (NotDetected); Chlamydia pneumoniae PCR Not Detected (NotDetected); Coronavirus 229E PCR Not Detected (NotDetected); Coronavirus CoV-2 (COVID19)PCR Not Detected (NotDetected); Coronavirus HKU1 PCR Not Detected (NotDetected); Coronavirus NL63 PCR Not Detected (NotDetected); Coronavirus OC43PCR Not Detected (NotDetected); Human Metapneumovirus PCR Not Detected (NotDetected); Influenza A PCR Not Detected (NotDetected); Influenza B PCR Not Detected (NotDetected); Mycoplasma pneumoniae PCR Not Detected (NotDetected); Parainfluenza Virus 1 PCR Not Detected (NotDetected); Parainfluenza Virus 2 PCR Not Detected (NotDetected); Parainfluenza Virus 3 PCR Not Detected (NotDetected); Parainfluenza Virus 4 PCR Not Detected (NotDetected); Respiratory Syncytial VirusPCR Not Detected (NotDetected); Rhinovirus/Enterovirus PCR DETECTED (NotDetected)
--- NOTE | 2024-09-30 01:11 | XRay Report ---
EXAM: XR chest 1V portable CLINICAL HISTORY: DYSPNEA JMF TECHNIQUE: An X-ray image of the chest is obtained in frontal projection. COMPARISON: 09/13/2024. FINDINGS: Pulmonary Parenchyma: Redemonstration of the hilar and pulmonary congestive lung changes/interstitial edema Newly depicted ill-defined opacity at the right lung base could represent the progression of the congestive lung changes/interstitial edema or superadded infection No evidence of pleural effusion or pleural thickening. Heart and Mediastinum: Stable cardiomegaly Bony Thorax: Bony thorax appears intact without fractures or deformities. Soft Tissues: Soft tissues overlying the chest wall are unremarkable. IMPRESSION: 1. Stable cardiomegaly. 2. Redemonstration of the hilar and pulmonary congestive lung changes/interstitial edema. 3. Newly depicted ill-defined opacity at the right lung base which could represent progression of the congestive lung changes/interstitial edema or superadded infection. Clinical correlation and follow up are advised. Electronically signed by Giuseppe Real 09-30-2024 01:11 AM
--- NOTE | 2024-09-30 01:31 | Emergency Department Note ---
ED Visit Note I was consulted by the Advanced Practice Provider. I personally made or approved the management plan for the patient. I performed a substantive portion of the visit. This includes the aspects of: MDM. .
--- NOTE | 2024-09-30 01:52 | History & Physical Report ---
Date of Service September 30, 2024 Assessment & Plan (1) Acute on chronic heart failure with preserved ejection fraction (HFpEF): (2) Acute kidney injury: (3) Rhinovirus infection: Plan 63-year-old male with past medical history significant for HFpEF, A-fib, ESRD, WAHA, s/p renal transplant, and additional chronic medical conditions who is presenting for increased dizziness, weakness, fatigue, and worsening shortness of breath after exertion. Symptom onset ~ 3 days ago but acutely worsening the day of arrival. Has been having increased swelling to BLE, BNP elevated in the 500s which is increased from his baseline. #Acute on chronic exacerbation of HFpEF H/o HFpEF; presenting with worsening STOKC, weakness, and feeling as though he is "filling with fluid"; Volume overloaded on exam today w/ 2+ pitting edema BLE, increase in baseline per patient. Minimal crackles in lung field bases, increased STOCK per patient. He has also increased from his prior admission (100.7 kg to 109 kg). - Daily weights standing, I+Os; Low-sodium, fluid restricted diet (1800mL) - Echo 07/14 LVEF 55 to 60%, RV mildly dilated, RA severely dilated, LA moderately dilated, mild AR, mild MR, RVSP 30 to 40 mmHg, mild concentric LVH noted, LV systolic function normal - BNP 597; CMP with creatinine 2.10, and BUN 61, ratio 29.0; total bilirubin 1.9 - CXR stable cardiomegaly, redemonstration of hilar and pulmonary congestive lung changes/interstitial edema, newly detected ill-defined opacity of the R lung base - Troponin 48.1, repeat 50, will trend --> Likely 2/2 demand + renal disease, follow w/ EKG if chest pain - EKG A-fib with RVR (110), LAD, RBBB, prolonged QTc - Provided with Furosemide in ED; on metoprolol 100mg and Bumex 1 mg daily as outpatient --> Will increase to Bumex 2mg daily while inpatient - Net output of -1 to -1.5 mL/day; will adjust dose as appropriate to maintain this - SCDs, promote leg elevation and frequent movement as patient tolerates #KRISSY/ESRD/Status-post renal transplant Likely secondary to increase diuretic dose from last admission in conjunction with acute worsening of HF; H/o FSGS + renal transplant 2009, follows with nephrology, most recent visit 09/27/24; Cr baseline 1.3-1.4; On CellCept + Prograf (trough 4-7). Note from last nephrology visit w/ following adjustments- Holding lisinopril, resuming bumex - Cr increased to 1.86, BUN elevated to 42 -- No fluids provided 2/2 acute on chronic HF but will closely monitor - UA cloudy, 1+ protein, trace ketones, 1+ bilirubin, trace LE, hyaline cast, epithelial cells, and granular casts - BMP BID while diuresing- Will consult nephrology if deemed appropriate based on labs #Entero/Rhinovirus No known sick exposures or travel. History of transplant, but will continue medications for this even with current lab findings - Supportive care; acetaminophen prn for fever/pain - WBC 15.07, procal 0.78, CXR w/ newly ill-defined of R lung base - CBC am - Cefepime started in ED; does have hx of C diff following abx so advise caution while on abx - Continue Cefepime #A-fib, permanent, rate controlled Previous history of Afib, DOAC deferred 2/2 acute anemia in past, previous tolerance of Xarelto no current anticoag - EKG on admission A-fib with RVR (110), LAD, RBBB, prolonged QTc; Telemetry showing HR 80s-90s, Afib- Continue to monitor on telemetry - Rate controlled with metoprolol #Warm autoimmune hemolytic anemia Dx Jul 2023; Follows with hematology most recent visit 08/20/2024; IVIG; Velcade - CBC WBC 15.07 (on chronic steroids) H&H 9/27.3, MCV 106.6, MCH 35.2; Total bilirubin 1.9- CBC am - Continue acyclovir, iron supplement, and folic acid #Sleep apnea- No CPAP at baseline #GERD- Protonix #Gout- Allopurinol #Hypothyroidism- Levothyroxine Dispo: Admit VTE Prophylaxis: SCDs This document was dictated utilizing Lemon. Please excuse any gra mmatical errors that may be secondary to use of this software. Admission and Anticipated Discharge Date Admission Date: 09/30/2024 History of Present Illness Chief Complaint: Illness Primary Care Provider: Santos Rivers MD Patient is a 63-year-old male PMHx AIHA, Afib, ESRD 2/2 FSGS, renal transplant (2009), HFpEF, A-fib, and gout. Recently discharged from hospital with course being 09/13/2024-09/20/2024 for acute on chronic diastolic heart failure and KRISSY. Pt presenting to ED today for "feeling like crap," which worsened the day of arrival. States that approximately 2-3 days [employer] he started to feel "off". Has had increased edema bilateral lower extremities, weakness, fatigue, and body aches. Ever since his last discharge from the hospital, he has started to decline over that time into the day of arrival. He has been having whole body weakness, feeling feverish but no documented temperature, and pain in his bilateral feet. He states that he feels as though he is continuing to fill up with fluid, and he can tell because his legs are causing him more pain than normal. States that he does have some STOCK, but is about his baseline however he does feel that it might of worsened slightly the day of arrival. Overall denying chest pain, shortness of breath at rest, palpitations, abdominal pain, N/V/D/C, numbness/tingling, headaches, dizziness, or syncope. Has been taking medications as prescribed and took his daily medications. Patient was found to be entero-/rhinovirus positive in ED, but does not have known sick contacts. Additionally has leukocytosis of 15, procalcitonin 0.70. BNP is 597 which is up from his baseline and initial troponin was 48.1. His EKG did not show ischemic changes. Patient's renal function is also up from baseline with creatinine 2.1, BUN 61. CXR does reveal worsening of chronic findings. Patient received cefepime and Lasix in ED. Please see Dr. Morel's attestation for adjustments/additions to treatment plan. Allergies Allergy/AdvReac Type Severity Reaction Status Date / Time clopidogrel [From Plavix] Allergy Unknown Unknown Verified 09/27/24 15:34 [id number] Reductase AdvReac Intermediate myalgias Verified 09/27/24 15:34 Inhibitor [Rixznza-Vox-Hkx Reductase Inhibitor] Home Medications Medication Instructions Recorded Confirmed Type mycophenolate mofetil 250 mg 500 mg (2 x 250 mg) PO BID #360 09/11/20 01/13/25 Rx capsule caps amoxicillin 500 mg capsule 2,000 mg PO DIRECTED PRN PRIOR 07/29/20 09/30/24 History TO DENTAL PROCEDURES multivitamin 1 tab PO QAM 08/02/21 09/30/24 History folic acid 1 mg tablet 1 mg PO BID #180 tabs 09/20/23 09/30/24 Rx pantoprazole 40 mg tablet,delayed 40 mg PO BID #180 tabs 12/06/23 09/30/24 Rx release calcium carbonate 500 mg PO QAM 01/21/24 09/30/24 History ferrous sulfate 325 mg (65 mg 325 mg PO BID #60 tabs 02/05/24 09/30/24 Rx iron) tablet metoprolol succinate 100 mg 100 mg PO HS #90 tabs 04/22/24 09/30/24 Rx tablet,extended release 24 hr acyclovir 400 mg tablet 400 mg PO BID 05/07/24 09/30/24 History ondansetron 4 mg disintegrating 4 mg PO Q8 PRN nausea #20 tabs 05/22/24 09/30/24 Rx tablet magnesium oxide 500 mg PO BID 08/09/24 09/30/24 History albuterol sulfate 90 mcg/actuation 2 inh inhalation Q6H PRN shortness 08/25/24 09/30/24 Rx aerosol inhaler of breath or wheezing #8.5 grams tacrolimus 1 mg capsule, 1 - 2 mg PO UD 08/30/24 09/30/24 History immediate-release danazol 200 mg capsule 200 mg PO BID 09/13/24 09/30/24 History metoprolol succinate 25 mg 25 mg PO QAM #30 tabs 09/20/24 09/30/24 Rx tablet,extended release 24 hr allopurinol 100 mg tablet 100 mg PO BID 09/24/24 09/30/24 History prednisone 5 mg tablet 5 mg PO QDB 09/24/24 09/30/24 History bumetanide 1 mg tablet 1 mg PO DAILY Fluid Retention #90 09/27/24 09/30/24 Rx tabs levothyroxine 125 mcg tablet 125 mcg PO QAM #90 tabs 09/27/24 09/30/24 Rx Past Med/Surg History Problem List Acute on chronic heart failure with preserved ejection fraction (HFpEF) Infiltrate of lower lobe of right lung present on imaging study (Acute) Rhinovirus infection (Acute) Acute kidney injury (Acute) Clostridioides difficile diarrhea Sleep apnea, obstructive RBBB (right bundle branch block with left anterior fascicular block) Diastolic CHF Human metapneumovirus (hMPV) pneumonia Atrial fibrillation Acute on chronic diastolic (congestive) heart failure Infection due to human metapneumovirus (hMPV) (Acute) Hypomagnesemia (Acute ~09/17/24) Pneumonia (Acute) Adrenal insufficiency Bilateral leg edema Atrial fibrillation with rapid ventricular response Sepsis due to pneumonia Kidney transplant status, living unrelated donor (Acute) Acute exacerbation of CHF (congestive heart failure) (Acute) Status post right hip replacement LVH (left ventricular hypertrophy) Coronary artery calcification CKD (chronic kidney disease) 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 Status post kidney transplant Warm autoimmune hemolytic anemia On prednisone therapy Ground glass opacity present on imaging of lung Rosales's esophagus with esophagitis Macrocytic anemia Erosive esophagitis EGD 08/2023 Abnormal findings on diagnostic imaging of other abdominal regions, including retroperitoneum Arthritis of right hip Hip arthritis Adrenal nodule IN PCP considering adrenal protocol CT or MRI for characterization Herpetic maria Aneurysm Abnormal LFTs Pneumonia Acute non-ST elevation myocardial infarction (NSTEMI) (Acute) 01/31/23 Megaloblastic anemia (Acute) Cerumen impaction Retroperitoneal mass lesion biopsy negative for malignancy 05/2022 per transplant record 03/17/23 Hypotension Diarrhea Adenomatous polyps Vitamin D deficiency Chronic kidney disease, stage 3a COVID-19 (Acute) Acute respiratory failure with hypoxemia (Acute) 07/29/20 Anemia (Chronic) hospitalized at [facility] 07/2023, received blood transfusion 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 History of esophageal reflux (Chronic) controlled, stable per pt Hyperlipidemia (Chronic) Hypothyroidism (Chronic) Obesity (Chronic) Osteoporosis (Chronic) Proteinuria (Chronic) Medical History Hx of sepsis due to pneumonia, ~07/26/24, hospitalized at [facility] Erosive esophagitis hx, EGD 08/2023 History of Clostridioides difficile infection dx 09/14/24, [facility]; 09/24/24, per pt, "will be finishing abx in next day or so" CKD (chronic kidney disease) [place] Bilateral leg edema "has some, has gotten better" Hx of adrenal insufficiency Hx of right bundle branch block f/[place] cardi[place] History of recent hospitalization pt admitted to [facility] multiple times over 2023 (01/21/24, 05/2024-sx, 07/13/24, 07/26/24, 08/22/24, 08/24/24); most recent visit 08/24/24 per records "63-year-old male with past medical history significant for HFpEF, A-fib, ESRD, WAHA, and additional chronic medical conditions who is presenting for sudden onset of chest pain with shortness of breath after exertion following eating out at [employer] followed by increased activity with cutting wood and developed chest pain. CXR with evidence for volume overload and was provided IV Lasix last nitro on admission with improvement/resolution of symptoms. Also with KRISSY that was likely due to hypotension/hypoperfusion and increased diuretic use recently; improving. Also with A-fib RVR, suspect due to increased salt load/increased activity/untreated CHERELLE." Rhinovirus infection Hypomagnesemia Hx of gout Hx of congestive heart failure Sleep apnea, obstructive no device Hypocalcemia hx Weakness Elevated troponin hx, 07/2024; f/[place] cardi[place] Atrial fibrillation with rapid ventricular response controlled w/ metoprolol; f/u [place] cardi[place] Hypotension pt unaware? Heart failure with preserved ejection fraction hx; f/u [place] cardi[place] Hypomagnesemia hx History of non-ST elevation myocardial infarction (NSTEMI) entered into chart 01/2023 Osteoporosis Hypothyroidism Hyperlipidemia Hx of esophageal reflux controlled, stable per pt 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 Abdominal aortic aneurysm 4.9 cm on 01/2023 chest CTA; monitoring History of colon polyps Retroperitoneal mass lesion biopsy negative for malignancy 05/2022 per transplant record 03/17/23 Pneumonia hx, ~08/23/24 Adrenal nodule monitored by PCP Arthritis On prednisone therapy Rosales's esophagus with esophagitis Atrial flutter hx 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 Thoracic ascending aortic aneurysm 4.[address] 01/19/24 Hypertension controlled, stable per pt Limb alert care status left arm restriction History of blood transfusion ~07/2024 Hx of herpetic maria History of COVID-19 07/2020- covid pneumonia, hospitalized; resolved History of renal dialysis prior to kidney transplant; has dialysis fistula left arm History of CVA (cerebrovascular accident) 2008, mild memory changes Surgical History History of total right hip arthroplasty Hx of kidney transplant 02/2010- [place] History of esophagogastroduodenoscopy (EGD) Hx of cholecystectomy Hx of exploratory laparotomy History of colonoscopy Family History Grandmother (Maternal) Alzheimer disease Mother Depression Denies family history of Ovarian cancer Prostate cancer Diabetes Heart disease Myocardial infarction Breast cancer Lung cancer COPD (chronic obstructive pulmonary disease) Colorectal cancer Hypertension Stroke Social History Smoking Status: Never smoker Second Hand Exposure: No; Do You Dip or Chew Tobacco: No; Tobacco Cessation Education Requested by Patient: No Hx Alcohol Use: No Hx Substance Use: No 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: Sinhala Communication Ability: Effective Visual Impairment: No Limitations Hearing Ability: Normal Dental Resident Required: No Beliefs That Will Affect Care: None marital status: Current Living Situation: Spouse current occupational status: employed current occupation: [employer] How many Children do You have: 1 Other Information That Helps Us Care for You: No Feels Safe at Home: Yes Safety Concerns: Feels Safe At This Time Childhood Exposure to Second-Hand Smoke: No Dental Care, Regularly: Yes Seatbelt Use: sometimes Sunscreen Use: No Assistive Devices: Cane and Walker Review of Systems Review of Systems: All systems reviewed & are unremarkable except as noted in Subjective Physical Exam Physical Exam: General: No acute distress, appearing to not feel well Skin: Warm and dry, without rashes or lesions. No cyanosis or clubbing Head: Normocephalic, atraumatic Eyes: PERRL, conjunctivae clear, sclera non-icteric; EOM intact ENT: External ear and ear canal without swelling; nose atraumatic; good dentition, tongue normal appearance, pharynx normal without tonsillar swelling or exudate Neck: Supple, no LAD; no JVD Cardio: RRR, no M/G/R, S1 and S2 normal Resp: Chest wall symmetric, normal respiratory effort; No respiratory distress, Lungs CTA in all lobes bilaterally, no wheezes, rales, or rhonchi Abdomen: Soft, symmetric, nontender; No visible lesions or scars; no distention; No masses or hepatosplenomegaly; Bowel sounds normoactive MSK: No deformities, full ROM throughout; pulses palpable and equal; no edema. Neuro: Awake, alert; Muscle strength 5/5 bilaterally in UE/LE; Sensation intact bilaterally; CN intact Psych: Appropriate mood and affect; good judgement and insight. Results & Data Results & Data Vital Signs (Past 12 Hours) Vital Signs Temp Pulse Resp BP Pulse Ox O2 Del Method 09/30/24 00:13 106 H 09/30/24 00:06 95 Room Air 09/29/24 23:48 37.2 C 114 H 20 120/71 97 Room Air Laboratory Results Laboratory Results WBC 15.07 K/ul (4.8-10.8) H 09/30/24 00:05 RBC 2.56 M/uL (4.70-6.10) L 09/30/24 00:05 Hgb 9.0 g/dl (14.0-18.0) L 09/30/24 00:05 Hct 27.3 % (42.0-52.0) L 09/30/24 00:05 MCV 106.6 fL (80.0-100.0) H 09/30/24 00:05 MCH 35.2 pg (25.0-34.0) H 09/30/24 00:05 MCHC 33.0 g/dL (32.0-36.0) 09/30/24 00:05 RDW Std Deviation 63.7 fL (36.4-46.3) H 09/30/24 00:05 RDW Coeff of Jaye 16.6 % (11.5-14.5) H 09/30/24 00:05 Plt Count 357 K/uL (130-400) 09/30/24 00:05 MPV 9.6 fL (9.4-12.4) 09/30/24 00:05 Immature Gran % (Auto) 1.1 % 09/30/24 00:05 Neut % (Auto) 86.5 % 09/30/24 00:05 Lymph % (Auto) 2.7 % 09/30/24 00:05 [place] % (Auto) 9.2 % 09/30/24 00:05 Eos % (Auto) 0.3 % 09/30/24 00:05 Baso % (Auto) 0.2 % 09/30/24 00:05 Neut # (Auto) 13.05 K/uL (1.40-6.50) H 09/30/24 00:05 Lymph # (Auto) 0.41 K/uL (1.20-3.40) L 09/30/24 00:05 [place] # (Auto) 1.38 K/uL (0.11-0.59) H 09/30/24 00:05 Eos # (Auto) 0.04 K/uL (0.00-0.50) 09/30/24 00:05 Baso # (Auto) 0.03 K/uL (0.00-0.20) 09/30/24 00:05 Immature Gran # (Auto) 0.16 K/uL (0.01-0.20) 09/30/24 00:05 PT 12.6 Seconds (9.0-12.0) H 09/30/24 00:05 INR 1.2 (0.9-1.1) H 09/30/24 00:05 APTT 28 Seconds (21-31) 09/30/24 00:05 PTT Ratio 1.0 09/30/24 00:05 Sodium 134 mmol/L (136-145) L 09/30/24 00:05 Potassium 4.6 mmol/L (3.5-5.1) 09/30/24 00:05 Chloride 101 mmol/L (98-107) 09/30/24 00:05 Carbon Dioxide 23 mmol/L (21-32) 09/30/24 00:05 Anion Gap 10 (3-11) 09/30/24 00:05 BUN 61 mg/dl (6-23) H 09/30/24 00:05 Creatinine 2.10 mg/dl (0.6-1.4) H 09/30/24 00:05 Est Cr Clr Drug Dosing 41.7 ml/min 09/30/24 00:05 eGFR 34.72 09/30/24 00:05 BUN/Creatinine Ratio 29.0 (10-20) H 09/30/24 00:05 Glucose 104 mg/dl (70-99(Fasting)) H 09/30/24 00:05 Lactate 1.0 mmol/L (0.4-2.0) 09/30/24 02:06 Calcium 9.1 mg/dl (8.6-10.3) 09/30/24 00:05 Magnesium 1.4 mg/dl (1.7-2.4) L 09/30/24 00:05 Total Bilirubin 1.9 mg/dl (0.2-1.0) H 09/30/24 00:05 AST 25 U/L (13-39) 09/30/24 00:05 ALT 18 U/L (7-52) 09/30/24 00:05 Alkaline Phosphatase 70 U/L (34-104) 09/30/24 00:05 Troponin I High Sens 50.6 pg/ml (0-20) H* 09/30/24 02:06 B-Natriuretic Peptide 597 pg/ml (0-100) H 09/30/24 00:05 Total Protein 7.2 gm/dl (6.0-8.3) 09/30/24 00:05 Albumin 3.7 gm/dl (3.4-5.0) 09/30/24 00:05 Globulin 3.5 gm/dl (2.5-4.0) 09/30/24 00:05 Albumin/Globulin Ratio 1.1 (0.9-2) 09/30/24 00:05 Procalcitonin 0.78 ng/ml (0-0.5) H 09/30/24 00:05 Urine Color Dark Yellow 09/30/24 00:11 Urine Appearance Cloudy (Clear) A 09/30/24 00:11 Urine pH 5.0 (4.5-7.5) 09/30/24 00:11 Ur Specific [place] 1.019 (1.000-1.030) 09/30/24 00:11 Urine Protein 1+ (Negative) H 09/30/24 00:11 Urine Glucose (UA) Negative (Negative) 09/30/24 00:11 Urine Ketones Trace (Negative) H 09/30/24 00:11 Urine Blood Negative (Negative) 09/30/24 00:11 Urine Nitrite Negative (Negative) 09/30/24 00:11 Urine Bilirubin 1+ (Negative) H 09/30/24 00:11 Urine Urobilinogen Negative (Negative) 09/30/24 00:11 Ur Leukocyte Esterase Trace (Negative) H 09/30/24 00:11 Urine WBC (Auto) 0-5 /hpf (0-5) 09/30/24 00:11 Urine RBC (Auto) 0-2 /hpf (0-2) 09/30/24 00:11 U Hyaline Cast (Auto) >20 /lpf (0-2) H 09/30/24 00:11 U Epithel Cells (Auto) 3-5 /hpf (0-2) H 09/30/24 00:11 Urine Bacteria (Auto) None Seen (None Seen) 09/30/24 00:11 Granular Casts Present /lpf (None Prsent) A 09/30/24 00:11 Adenovirus (PCR) Not Detected (NotDetected) 09/30/24 00:06 B. pertussis DNA (PCR) Not Detected (NotDetected) 09/30/24 00:06 B.parapertussis DNA PCR Not Detected (NotDetected) 09/30/24 00:06 C. pneumoniae DNA (PCR) Not Detected (NotDetected) 09/30/24 00:06 Coronavirus OC43 (PCR) Not Detected (NotDetected) 09/30/24 00:06 Coronavirus HKU1 (PCR) Not Detected (NotDetected) 09/30/24 00:06 Coronavirus 229E (PCR) Not Detected (NotDetected) 09/30/24 00:06 SARS-CoV-2 (PCR) Not Detected (NotDetected) 09/30/24 00:06 Coronavirus NL63 (PCR) Not Detected (NotDetected) 09/30/24 00:06 Human Metapneumovir PCR Not Detected (NotDetected) 09/30/24 00:06 Influenza Type A (PCR) Not Detected (NotDetected) 09/30/24 00:06 Influenza Type B (PCR) Not Detected (NotDetected) 09/30/24 00:06 M. pneumoniae (PCR) Not Detected (NotDetected) 09/30/24 00:06 Parainfluenza 1 (PCR) Not Detected (NotDetected) 09/30/24 00:06 Parainfluenza 2 (PCR) Not Detected (NotDetected) 09/30/24 00:06 Parainfluenza 3 (PCR) Not Detected (NotDetected) 09/30/24 00:06 Parainfluenza 4 (PCR) Not Detected (NotDetected) 09/30/24 00:06 RSV (PCR) Not Detected (NotDetected) 09/30/24 00:06 Entero/Rhino (PCR) DETECTED (NotDetected) A 09/30/24 00:06 Impressions Chest X-Ray 09/29/24 23:53 EXAM: XR chest 1V portable CLINICAL HISTORY: DYSPNEA JMF TECHNIQUE: An X-ray image of the chest is obtained in frontal projection. COMPARISON: 09/13/2024. FINDINGS: Pulmonary Parenchyma: Redemonstration of the hilar and pulmonary congestive lung changes/interstitial edema Newly depicted ill-defined opacity at the right lung base could represent the progression of the congestive lung changes/interstitial edema or superadded infection No evidence of pleural effusion or pleural thickening. Heart and Mediastinum: Stable cardiomegaly Bony Thorax: Bony thorax appears intact without fractures or deformities. Soft Tissues: Soft tissues overlying the chest wall are unremarkable. IMPRESSION: 1. Stable cardiomegaly. 2. Redemonstration of the hilar and pulmonary congestive lung changes/interstitial edema. 3. Newly depicted ill-defined opacity at the right lung base which could represent progression of the congestive lung changes/interstitial edema or superadded infection. Clinical correlation and follow up are advised. Electronically signed by Giuseppe Real 09-30-2024 01:11 AM Supervising Physician Co-Signing Physician Notes Patient seen and examined, chart reviewed, case discussed with KARMEN Infante and I agree with the assessment and plan as above. Patient is a 63yo male with history of renal transplant on immunosuppression presenting with rhinovirus infection. On exam he is ill in appearance Skin - no rash HEENT - MMM, Neck supple, no JVD Heart - +S1/S2 irregularly irregular Lungs - coarse breath sounds anteriorly, no wheeze Abd - soft, NT/ND Ext - 2+ edema of bilateral LE Labs and images reviewed Assessment/Plan Symptomatic management for Rhinovirus Will cover with empiric cefepime - leukocytosis with bands - patient on immunosuppression Diuresis - patient does appear to be volume overloaded on exam and weight - will increase Bumex to BID and closely monitor renal function and electrolytes Remainder as above PG Care Time/CCT Total # of Minutes Spent Total Time Spent with Patient: Total time spent is greater than 50% in coordination of care (as documented) at patient's floor/unit and/or counseling patient: Coding Level of Care Code 71698 INT INP/OBS CARE 3/75MIN Diagnoses Acute on chronic heart failure with preserved ejection fraction (HFpEF) I50.33 Acute kidney injury N17.9 Rhinovirus infection B34.8
[2024-09-30] MEDS: FUROSEMIDE 40 MG/4 ML VIAL IV ONE (02:10)
[2024-09-30] MEDS: CEFEPIME 2000MG 2,000 MG/20 ML SYR IV STA (02:11)
[2024-09-30] MEDS ORDERED: ALBUTEROL HFA 8 GM INHALER INH PRN (03:37)
[2024-09-30] MEDS: predniSONE 5 MG TAB PO SCH (06:35)
[2024-09-30] MEDS: LEVOTHYROXINE SODIUM 125 MCG TABLET PO SCH (06:35)
[2024-09-30] MEDS: ONDANSETRON 4 MG OD TAB PO PRN (10:00)
[2024-09-30] MEDS: TACROLIMUS 1 MG CAP PO SCH ×2 (10:28→22:15)
[2024-09-30] MEDS: allopurinoL 100 MG TAB PO SCH (10:29)
[2024-09-30] MEDS: BUMETANIDE 1 MG TAB PO SCH (10:29)
[2024-09-30] MEDS: FOLIC ACID 1 MG TAB PO SCH (10:29)
[2024-09-30] MEDS: PANTOprazole 40 MG TAB PO SCH (10:29)
[2024-09-30] MEDS: CALCIUM CARBONATE 1250MG TAB PO SCH (10:29)
[2024-09-30] MEDS: METOPROLOL SUCC 25MG EXT REL TAB PO SCH (10:30)
[2024-09-30] MEDS: FERROUS SULFATE 325 MG TAB PO SCH (10:30)
[2024-09-30] MEDS: MULTIVITAMIN TAB PO SCH (10:30)
[2024-09-30] MEDS: ACYCLOVIR 400 MG TAB PO SCH (10:30)
[2024-09-30] MEDS: MAGNESIUM OXIDE 400 MG TAB PO SCH (10:30)
[2024-09-30] MEDS: MYCOPHENOLATE MOFETIL 250 MG CAP PO SCH (11:23)
[2024-09-30] MEDS: ACETAMINOPHEN 325 MG TAB PO PRN (11:26)
--- NOTE | 2024-09-30 12:28 | Nephrology Consultation ---
Date of Consultation September 30, 2024 Assessment & Plan (1) Acute on chronic heart failure with preserved ejection fraction (HFpEF): Furosemide 40 mg IV provided in the ER. Diuretics dosed PRN while monitoring closely. Document strict I/O's. Low sodium diet. Avoid aggressive diuresis in setting of hypotension. (2) Acute kidney injury: Non-oliguric. Document strict I/O's. BP low. Noted fluid retention. Diuretics are being provided. No emergent indication for SERVICE DOG TRAINER. Urine microscopy acellular. Otherwise notable for hyaline and granular casts. Medications are appropriately dosed for kidney function. Repeat serum metabolic profile tomorrow AM. (3) Kidney transplant status, living unrelated donor: Baseline creatinine 1.9-2.3 mg/dL. Continue MMF, tacrolimus, Cellcept per home Rx. (4) Rhinovirus infection: (5) Infiltrate of lower lobe of right lung present on imaging study: Follow up imaging to be coordinated s/p diuresis and treatment for respiratory infection. 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 He has a functional LURT. Baseline creatinine 1.9-2.3 mg/dL. Gumaro follows in the [facility] [place] nephrology clinic with Dr. Oro. Maintenance IS includes Cellcept, tacrolimus, and prednisone. Transplant was performed at [facility] 02/2010. 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 Post transplant creatinine stabilized at 1.4. Urine protein excretion has been documented at ~400 mg/24hr. MEAGAN inhibitor therapy was stopped due to low blood pressure. Medical history is also notable for ASCVD, prior CVA, chronic atrial fibrillation, CHERELLE, warm autoimmune hemolytic anemia, gout, and hypothyroidism. He was recently hospitalized at [facility] 09/13/2024-09/20/2024 for acute on chronic diastolic heart failure and KRISSY. Gumaro presented to the ER today with several days of generalized malaise, dizziness, fatigue, and weakness. He presented with progressive edema and worsening dyspnea with exertion. Evaluation in the ER included positive testing for entero-/rhinovirus. CXR demonstrating pulmonary vascular congestion. No ischemic changes on EKG. Persistent atrial fibrillation with HR 110-125 BPM noted with hypotension. Furosemide was provided in the ER. Bumex dose has been increased to 2 mg daily. Antibiotic therapy with Cefepime is being provided. Allergies Allergy/AdvReac Type Severity Reaction Status Date / Time clopidogrel [From Plavix] Allergy Unknown Unknown Verified 09/27/24 15:34 Lftrdxn-YMI-LlR Reductase AdvReac Intermediate myalgias Verified 09/27/24 15:34 Inhibitor [Qswrafh-Exe-Mlb Reductase Inhibitor] Home Medications Medication Instructions Recorded Confirmed Type mycophenolate mofetil 250 mg 500 mg (2 x 250 mg) PO BID #360 05/29/20 09/30/24 Rx capsule caps amoxicillin 500 mg capsule 2,000 mg PO DIRECTED PRN PRIOR 07/29/20 09/30/24 History TO DENTAL PROCEDURES multivitamin 1 tab PO QAM 08/02/21 09/30/24 History folic acid 1 mg tablet 1 mg PO BID #180 tabs 09/20/23 09/30/24 Rx pantoprazole 40 mg tablet,delayed 40 mg PO BID #180 tabs 12/06/23 09/30/24 Rx release calcium carbonate 500 mg PO QAM 01/21/24 09/30/24 History ferrous sulfate 325 mg (65 mg 325 mg PO BID #60 tabs 02/05/24 09/30/24 Rx iron) tablet metoprolol succinate 100 mg 100 mg PO HS #90 tabs 04/22/24 09/30/24 Rx tablet,extended release 24 hr acyclovir 400 mg tablet 400 mg PO BID 05/07/24 09/30/24 History ondansetron 4 mg disintegrating 4 mg PO Q8 PRN nausea #20 tabs 05/22/24 09/30/24 Rx tablet magnesium oxide 500 mg PO BID 08/09/24 09/30/24 History albuterol sulfate 90 mcg/actuation 2 inh inhalation Q6H PRN shortness 08/25/24 09/30/24 Rx aerosol inhaler of breath or wheezing #8.5 grams tacrolimus 1 mg capsule, 1 - 2 mg PO UD 08/30/24 09/30/24 History immediate-release danazol 200 mg capsule 200 mg PO BID 09/13/24 09/30/24 History metoprolol succinate 25 mg 25 mg PO QAM #30 tabs 09/20/24 09/30/24 Rx tablet,extended release 24 hr allopurinol 100 mg tablet 100 mg PO BID 09/24/24 09/30/24 History prednisone 5 mg tablet 5 mg PO QDB 09/24/24 09/30/24 History bumetanide 1 mg tablet 1 mg PO DAILY Fluid Retention #90 09/27/24 09/30/24 Rx tabs levothyroxine 125 mcg tablet 125 mcg PO QAM #90 tabs 09/27/24 09/30/24 Rx Patient History Medical History Hx of sepsis due to pneumonia, ~07/26/24, hospitalized at [facility] Erosive esophagitis hx, EGD 08/2023 History of Clostridioides difficile infection dx 09/14/24, [facility]; 09/24/24, per pt, "will be finishing abx in next day or so" CKD (chronic kidney disease) f/u [facility] nephrology Bilateral leg edema "has some, has gotten better" Hx of adrenal insufficiency Hx of right bundle branch block f/u [facility] cardiology History of recent hospitalization pt admitted to [facility] multiple times over 2023 (01/21/24, 05/2024-sx, 07/13/24, 07/26/24, 08/22/24, 08/24/24); most recent visit 08/24/24 per records "63-year-old male with past medical history significant for HFpEF, A-fib, ESRD, WAHA, and additional chronic medical conditions who is presenting for sudden onset of chest pain with shortness of breath after exertion following eating out at [employer] followed by increased activity with cutting wood and developed chest pain. CXR with evidence for volume overload and was provided IV Lasix last nitro on admission with improvement/resolution of symptoms. Also with KRISSY that was likely due to hypotension/hypoperfusion and increased diuretic use recently; improving. Also with A-fib RVR, suspect due to increased salt load/increased activity/untreated CHERELLE." Rhinovirus infection Hypomagnesemia Hx of gout Hx of congestive heart failure Sleep apnea, obstructive no device Hypocalcemia hx Weakness Elevated troponin hx, 07/2024; f/u [facility] cardiology Atrial fibrillation with rapid ventricular response controlled w/ metoprolol; f/u [facility] cardiology Hypotension pt unaware? 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 Abdominal aortic aneurysm 4.9 cm on 01/2023 chest CTA; monitoring History of colon polyps Retroperitoneal mass lesion biopsy negative for malignancy 05/2022 per transplant record 03/17/23 Pneumonia hx, ~08/23/24 Adrenal nodule monitored by PCP Arthritis On prednisone therapy Rosales's esophagus with esophagitis Atrial flutter hx 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 Thoracic ascending aortic aneurysm 4.[address] 01/19/24 Hypertension controlled, stable per pt Limb alert care status left arm restriction History of blood transfusion ~07/2024 Hx of herpetic maria History of COVID-19 07/2020- covid pneumonia, hospitalized; resolved History of renal dialysis prior to kidney transplant; has dialysis fistula left arm History of CVA (cerebrovascular accident) 2008, mild memory changes Surgical History History of total right hip arthroplasty Hx of kidney transplant 02/2010- [facility], [place], [place] History of esophagogastroduodenoscopy (EGD) Hx of cholecystectomy Hx of exploratory laparotomy History of colonoscopy Family History Grandmother (Maternal) Alzheimer disease Mother Depression Denies family history of Ovarian cancer Prostate cancer Diabetes Heart disease Myocardial infarction Breast cancer Lung cancer COPD (chronic obstructive pulmonary disease) Colorectal cancer Hypertension Stroke Social History Smoking Status: Never smoker Second Hand Exposure: No; Do You Dip or Chew Tobacco: No; Tobacco Cessation Education Requested by Patient: No Hx Alcohol Use: No Hx Substance Use: No 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: Kyrgyz Communication Ability: Effective Visual Impairment: No Limitations Hearing Ability: Normal Special Class Welder Required: No Beliefs That Will Affect Care: None marital status: Current Living Situation: Spouse current occupational status: employed current occupation: [employer] How many Children do You have: 1 Other Information That Helps Us Care for You: No Feels Safe at Home: Yes Safety Concerns: Feels Safe At This Time Childhood Exposure to Second-Hand Smoke: No Dental Care, Regularly: Yes Seatbelt Use: sometimes Sunscreen Use: No Assistive Devices: Cane and Walker Review of Systems Review of Systems: All systems reviewed & are unremarkable except as noted in HPI & below Physical Exam Constitutional: well developed and + ill appearing; no acute distress Eyes: + anicteric sclerae ENMT: Mouth: no oral mucosal abnormality and oral mucous membranes not dry Neck: normal visual inspection and trachea midline Respiratory: + tachypneic Auscultation: lungs scott r to auscultation bilaterally and + rales Cardiovascular: Rate/Rhythm: + tachycardic and + irregularly irregular Heart Sounds: normal S1 and normal S2 Extremities: + edema Musculoskeletal: Extremities: no cyanosis and no clubbing Skin: no rashes and no jaundice Neurologic: Motor/Sensory: no tremor and no asterixis Psychiatric: Orientation: alert and oriented x 3 Results & Data Vital Signs (Past 12 Hours) Vital Signs Temp Pulse Pulse Resp BP BP Pulse Ox 09/30/24 11:10 37.4 C 115 H 21 120/91 96 09/30/24 10:15 125 H 26 H 09/30/24 10:00 132 H 24 09/30/24 09:45 124 H 25 H 09/30/24 09:33 131 H 21 09/30/24 09:15 118 H 17 92 09/30/24 09:00 119 H 22 95 09/30/24 08:57 111 H 22 95 09/30/24 08:42 110 H 28 H 97 09/30/24 08:33 112 H 22 98 09/30/24 08:09 121 H 20 100 09/30/24 08:00 116/65 09/30/24 08:00 116/65 09/30/24 08:00 116/65 09/30/24 07:57 126 H 19 99 09/30/24 07:54 103 H 17 83 L 09/30/24 07:42 105 H 21 96 09/30/24 07:39 108 H 21 95 09/30/24 07:15 107 H 21 100 09/30/24 07:06 107 H 19 97 09/30/24 07:04 118/97 09/30/24 07:04 118/97 09/30/24 07:04 118/97 09/30/24 07:04 118/97 09/30/24 07:03 37.5 C 112 H 23 118/97 97 09/30/24 06:59 109 H 09/30/24 06:45 108 H 22 96 09/30/24 06:39 103 H 21 95 09/30/24 06:12 110 H 22 96 09/30/24 06:06 105 H 20 99 09/30/24 06:00 117/74 09/30/24 05:54 106 H 18 100 09/30/24 05:51 105 H 20 94 09/30/24 05:35 102 H 19 98 09/30/24 05:02 95 H 19 97 09/30/24 05:00 118/84 09/30/24 04:30 96 H 18 96 09/30/24 04:15 105 H 22 103/82 98 09/30/24 03:49 118/91 09/30/24 03:48 100 H 19 98 09/30/24 03:46 37.3 C 95 H 22 118/91 95 09/30/24 03:30 98 H 20 102/83 97 09/30/24 03:00 103 H 18 115/84 96 09/30/24 02:00 91 H 20 109/82 99 09/30/24 01:00 107 H 20 109/68 98 09/30/24 00:30 105 H 20 128/97 98 O2 Del Method 09/30/24 11:10 Room Air 09/30/24 10:15 09/30/24 10:00 09/30/24 09:45 09/30/24 09:33 09/30/24 09:15 09/30/24 09:00 09/30/24 08:57 09/30/24 08:42 09/30/24 08:33 09/30/24 08:09 09/30/24 08:00 09/30/24 08:00 09/30/24 08:00 09/30/24 07:57 09/30/24 07:54 09/30/24 07:42 09/30/24 07:39 09/30/24 07:15 09/30/24 07:06 09/30/24 07:04 09/30/24 07:04 09/30/24 07:04 09/30/24 07:04 09/30/24 07:03 Room Air 09/30/24 06:59 09/30/24 06:45 09/30/24 06:39 09/30/24 06:12 09/30/24 06:06 09/30/24 06:00 09/30/24 05:54 09/30/24 05:51 09/30/24 05:35 09/30/24 05:02 Room Air 09/30/24 05:00 09/30/24 04:30 Room Air 09/30/24 04:15 Room Air 09/30/24 03:49 09/30/24 03:48 Room Air 09/30/24 03:46 Room Air 09/30/24 03:30 09/30/24 03:00 09/30/24 02:00 Room Air 09/30/24 01:00 Room Air 09/30/24 00:30 Room Air Laboratory Results Laboratory Results - last 24 hr 09/30/24 09/30/24 09/30/24 00:05 00:06 00:11 WBC 15.07 H RBC 2.56 L Hgb 9.0 L Hct 27.3 L MCV 106.6 H MCH 35.2 H MCHC 33.0 RDW Std Deviation 63.7 H RDW Coeff of Jaye 16.6 H Plt Count 357 MPV 9.6 Immature Gran % (Auto) 1.1 Neut % (Auto) 86.5 Lymph % (Auto) 2.7 [place] % (Auto) 9.2 Eos % (Auto) 0.3 Baso % (Auto) 0.2 Neut # (Auto) 13.05 H Lymph # (Auto) 0.41 L [place] # (Auto) 1.38 H Eos # (Auto) 0.04 Baso # (Auto) 0.03 Immature Gran # (Auto) 0.16 PT 12.6 H INR 1.2 H APTT 28 PTT Ratio 1.0 Sodium 134 L Potassium 4.6 Chloride 101 Carbon Dioxide 23 Anion Gap 10 BUN 61 H Creatinine 2.10 H Est Cr Clr Drug Dosing 41.7 eGFR 34.72 BUN/Creatinine Ratio 29.0 H Glucose 104 H Lactate Calcium 9.1 Magnesium 1.4 L Total Bilirubin 1.9 H AST 25 ALT 18 Alkaline Phosphatase 70 Troponin I High Sens 48.1 H B-Natriuretic Peptide 597 H Total Protein 7.2 Albumin 3.7 Globulin 3.5 Albumin/Globulin Ratio 1.1 Procalcitonin 0.78 H Urine Color Dark Yellow Urine Appearance Cloudy A Urine pH 5.0 Ur Specific [place] 1.019 Urine Protein 1+ H Urine Glucose (UA) Negative Urine Ketones Trace H Urine Blood Negative Urine Nitrite Negative Urine Bilirubin 1+ H Urine Urobilinogen Negative Ur Leukocyte Esterase Trace H Urine WBC (Auto) 0-5 Urine RBC (Auto) 0-2 U Hyaline Cast (Auto) >20 H U Epithel Cells (Auto) 3-5 H Urine Bacteria (Auto) None Seen Granular Casts Present A Adenovirus (PCR) Not Detected B. pertussis DNA (PCR) Not Detected B.parapertussis DNA PCR Not Detected C. pneumoniae DNA (PCR) Not Detected Coronavirus OC43 (PCR) Not Detected Coronavirus HKU1 (PCR) Not Detected Coronavirus 229E (PCR) Not Detected SARS-CoV-2 (PCR) Not Detected Coronavirus NL63 (PCR) Not Detected Human Metapneumovir PCR Not Detected Influenza Type A (PCR) Not Detected Influenza Type B (PCR) Not Detected M. pneumoniae (PCR) Not Detected Parainfluenza 1 (PCR) Not Detected Parainfluenza 2 (PCR) Not Detected Parainfluenza 3 (PCR) Not Detected Parainfluenza 4 (PCR) Not Detected RSV (PCR) Not Detected Entero/Rhino (PCR) DETECTED A 09/30/24 09/30/24 02:06 08:03 WBC RBC Hgb Hct MCV MCH MCHC RDW Std Deviation RDW Coeff of Jaye Plt Count MPV Immature Gran % (Auto) Neut % (Auto) Lymph % (Auto) [place] % (Auto) Eos % (Auto) Baso % (Auto) Neut # (Auto) Lymph # (Auto) [place] # (Auto) Eos # (Auto) Baso # (Auto) Immature Gran # (Auto) PT INR APTT PTT Ratio Sodium Potassium Chloride Carbon Dioxide Anion Gap BUN Creatinine Est Cr Clr Drug Dosing eGFR BUN/Creatinine Ratio Glucose Lactate 1.0 Calcium Magnesium Total Bilirubin AST ALT Alkaline Phosphatase Troponin I High Sens 50.6 H* 55.7 H* B-Natriuretic Peptide Total Protein Albumin Globulin Albumin/Globulin Ratio Procalcitonin Urine Color Urine Appearance Urine pH Ur Specific [place] Urine Protein Urine Glucose (UA) Urine Ketones Urine Blood Urine Nitrite Urine Bilirubin Urine Urobilinogen Ur Leukocyte Esterase Urine WBC (Auto) Urine RBC (Auto) U Hyaline Cast (Auto) U Epithel Cells (Auto) Urine Bacteria (Auto) Granular Casts Adenovirus (PCR) B. pertussis DNA (PCR) B.parapertussis DNA PCR C. pneumoniae DNA (PCR) Coronavirus OC43 (PCR) Coronavirus HKU1 (PCR) Coronavirus 229E (PCR) SARS-CoV-2 (PCR) Coronavirus NL63 (PCR) Human Metapneumovir PCR Influenza Type A (PCR) Influenza Type B (PCR) M. pneumoniae (PCR) Parainfluenza 1 (PCR) Parainfluenza 2 (PCR) Parainfluenza 3 (PCR) Parainfluenza 4 (PCR) RSV (PCR) Entero/Rhino (PCR) Diagnostic Findings XR chest 1V portable COMPARISON: 09/13/2024. FINDINGS: Pulmonary Parenchyma: Redemonstration of the hilar and pulmonary congestive lung changes/interstitial edema Newly depicted ill-defined opacity at the right lung base could represent the progression of the congestive lung changes/interstitial edema or superadded infection No evidence of pleural effusion or pleural thickening. Heart and Mediastinum: Stable cardiomegaly Bony Thorax: Bony thorax appears intact without fractures or deformities. Soft Tissues: Soft tissues overlying the chest wall are unremarkable. IMPRESSION: 1. Stable cardiomegaly. 2. Redemonstration of the hilar and pulmonary congestive lung changes/interstitial edema. 3. Newly depicted ill-defined opacity at the right lung base which could represent progression of the congestive lung changes/interstitial edema or superadded infection. Clinical correlation and follow up are advised. PG Care Time/CCT Total # of Minutes Spent Total Time Spent with Patient: Total time spent is greater than 50% in coordination of care (as documented) at patient's floor/unit and/or counseling patient: Coding Level of Care Code 23670 IN/OBS CONSULT LVL 4,60M Diagnoses Acute on chronic heart failure with preserved ejection fraction (HFpEF) I50.33 Acute kidney injury N17.9 Kidney transplant status, living unrelated donor Z94.0 Rhinovirus infection B34.8 Infiltrate of lower lobe of right lung present on imaging study R91.8
[2024-09-30] MEDS: MAGNESIUM SULFATE / D5W 1 GM/100 ML BAG IV SCH (12:54)
[2024-09-30] MEDS: ONDANSETRON INJ 2 MG/ML 2 ML VIAL IV PRN (13:20)
[2024-09-30 13:25] LABS: BUN Creatinine Ratio 29.3 (10-20); Calcium 8.8 mg/dl (8.6-10.3); Creatinine Clr Calc Pharmacy 41.9 ml/min; Potassium 4.7 mmol/L (3.5-5.1)
[2024-09-30 13:33] LABS: Troponin I High Sensitivity 62.4 pg/ml (0-20)
[2024-09-30] MEDS: DOXYCYCLINE HYCLATE 100 MG in DEXTROSE 5% MINI-B 100 ML IV SCH (13:52)
[2024-09-30] MEDS: CEFEPIME 2000MG 2,000 MG/20 ML SYR IV SCH (14:12)
[2024-09-30] MEDS: HYDROCORTISONE SOD 100 MG in SYRINGE 0 ML IV STA (14:31)
[2024-09-30] MEDS: SODIUM CHLORIDE 0.9% 500 ML IV ONE (14:37)
--- NOTE | 2024-09-30 16:55 | History & Physical Bridge Note ---
Date of Service September 30, 2024 History & Physical Bridge Note I have examined the patient, reviewed the History & Physical and in the interval since the performance of the History & Physical I have noted the following changes of clinical significance: Pt had hypotension with BPs into the 70s-80s systolic throughout the day and some N/V x 3. Denies abd pain, cough, headache, diarrhea. Feels generally weak. No chest pain BPs improved with a bolus of 500mL NS and giving IV hydrocortisone. Vitals reviewed NAD, obese RRR no nmgr +diminished BS at bases, no wcr Abd +BS soft NT ND Ext trace pitting edema ankles bilat BMP, CBC, troponin reviewed 63 yo male here with rhino/enterovirus, poss secondary bacterial PNA RLL, and hypotension likely from relative adrenal insufficiency Start stress dose steroids with hydrocortisone 100mg IV x 1 then 50 mg IV q8h Bolused 500mL NS, and hold further Bumex at this time continue abx for PNA Consult Nephrology as his capacity planner is above baseline for the last month or so and in setting of renal transplant Elevated trop is Mycardial demand ischemia in setting of CKD, no ECG changes, no chest pain, no need for ECHO Given hypotension, transferred from [facility] to PCU
[2024-09-30] MEDS: METOPROLOL SUCC 50MG EXT REL TAB PO SCH (22:35)
[2024-09-30] MEDS: HYDROCORTISONE SOD 50 MG in SYRINGE 0 ML IV SCH (22:39)
[2024-10-01 07:20] LABS: BUN Creatinine Ratio 25.4 (10-20); Creatinine Clr Calc Pharmacy 30.8 ml/min; Magnesium 1.6 mg/dl (1.7-2.4); Potassium 5.5 mmol/L (3.5-5.1)
[2024-10-01 07:33] LABS: Hemoglobin 7.7 g/dl (14.0-18.0); Mean Corpuscular Hemoglobin 34.2 pg (25.0-34.0); Mean Corpuscular Hgb Conc 32.1 g/dL (32.0-36.0); Mean Corpuscular Volume 106.7 fL (80.0-100.0); Mean Platelet Volume 9.8 fL (9.4-12.4); Platelet Count 274 K/uL (130-400); RDW Coefficient of Variation 16.8 % (11.5-14.5); Red Blood Count 2.25 M/uL (4.70-6.10); White Blood Count 32.49 K/ul (4.8-10.8)
--- NOTE | 2024-10-01 08:40 | Hospitalist Progress Note ---
Date of Service October 01, 2024 Assessment & Plan (1) Acute on chronic heart failure with preserved ejection fraction (HFpEF): (2) Acute kidney injury: (3) Rhinovirus infection: Plan 63-year-old male with past medical history significant for HFpEF, A-fib, ESRD, WAHA, s/p renal transplant, and additional chronic medical conditions who is presenting for increased dizziness, weakness, fatigue, and worsening shortness of breath after exertion. Symptom onset ~ 3 days ago but acutely worsening the day of arrival. Has been having increased swelling to BLE, BNP elevated in the 500s which is increased from his baseline. #Entero/Rhinovirus/Sepsis with shock/Adrenal insufficiency-With associated N/V on admission - Supportive care; acetaminophen prn for fever/pain - WBC 15.07, procal 0.78, CXR w/ newly ill-defined of R lung base -treating for PNA with Cefepime -Leukocytosis worsened today but also on stress dose steroids now for persistent hypotension after admission #KRISSY/CKD stage 4/Status-post renal transplant/Hyperkalemia-Likely secondary to increase diuretic dose from last admission in conjunction with acute worsening of HF; H/o FSGS + renal transplant 2009, follows with nephrology, most recent visit 09/27/24; Cr baseline 1.3-1.4; On CellCept + Prograf (trough 4-7). Note from last nephrology visit w/ following adjustments- Holding lisinopril, resumed bumex Cr increased to 1.86, BUN elevated to 42 on admission and now up to 2.8 Nephrology following here, holding further Bumex after received IV lasix x 1 in ED and Bumex 2mg po x 1 after admission, had significant hypotension UA cloudy, 1+ protein, trace ketones, 1+ bilirubin, trace LE, hyaline cast, epithelial cells, and granular casts Follow BMP #Warm autoimmune hemolytic anemia-Dx Jul 2023; Follows with hematology most recent visit 08/20/2024; IVIG; Velcade Hgb down to 7.7, d/w his Childcare Provider who recommended IVIG and PRBC transfusion -Ordered both but PRBCs delayed due to needing blood from [facility] [place] BPs improved today - Continue acyclovir, iron supplement, and folic acid -continue danazol #Right hand swelling/Right index finger infection-right hand with significant swelling, not coming from IV site, concern for DVT in RUE and also for infection in finger Check xray of right hand and finger Check RUE venous Doppler for DVT Consult Ortho for finger infection-may need debridement COntinues on Cefepime for now but may need to broaden coverage if OM seen on xray #chronic HFpEF-p/w worsening STOCK, weakness, and feeling as though he is "filling with fluid"; Volume overloaded on exam w/ 2+ pitting edema BLE, increase in baseline per patient. Minimal crackles in lung field bases, increased STOCK per patient. He has also increased from his prior admission (100.7 kg to 109 kg). Gave IV lasix and increase dpo bumex as above but developed worsening KRISSY-hold further diuretics for now - Daily weights, I+Os; Low-sodium, fluid restricted diet (1800mL) - Echo 07/14 LVEF 55 to 60%, RV mildly dilated, RA severely dilated, LA moderately dilated, mild AR, mild MR, RVSP 30 to 40 mmHg, mild concentric LVH noted, LV systolic function normal - BNP 597 - CXR stable cardiomegaly, redemonstration of hilar and pulmonary congestive lung changes/interstitial edema, newly detected ill-defined opacity of the R lung base - Myocardial demand ischemia with Troponin 48.1,50, 62 but no CP, ECG with some lateral ST depressions mild and unchanged from previous -holding metoprolol due to hypotension -replace magnesium #A-fib, permanent, rate elevated as unable to give metoprolol due to hypotension Previous history of Afib, DOAC deferred 2/2 acute anemia in past, previous t olerance of Xarelto no current anticoag -continue to hold metoprolol for parameters -continue tele monitoring #Sleep apnea- No CPAP at baseline #GERD- Protonix #Gout- Allopurinol #Hypothyroidism- Levothyroxine Dispo: continued stay PCU VTE Prophylaxis: SCDs Admission and Anticipated Discharge Date Admission Date: September 30, 2024 Subjective Pt having a lot of right hand swelling and pain, also notes his index finger had some pus draining out of it last week and remains sore, with yellow skin. No cough or SOB, not lightheaded, BPs better today, no bleeding noted anywhere. Tele with Afib, rates 100s I discussed his care with Oncology Physical Exam Constitutional: WD/WN, vitals as above Respiratory: normal respiratory effort, lungs clear to auscultation Cardiovascular: Rate/Rhythm: + tachycardic and + irregularly irregular Extremities: + edema (2+ pitting edema legs/feet bilat,right hand 2+ nonpitting) Gastrointestinal (Abdomen): normal bowel sounds, soft, nontender, no hepatosplenomegaly Musculoskeletal: Extremities: + extremities abnormal to inspection (right index finger skin yellow color,hard,erythematous finger) Psychiatric: A+Ox3, euthymic affect Results & Data Results & Data Vital Signs (Past 12 Hours) Vital Signs Temp Pulse Pulse Pulse Resp BP Pulse Ox 10/01/24 08:09 36.6 C 98 H 19 104/73 100 10/01/24 03:05 36.7 C 100 H 20 99/60 L 99 09/30/24 22:35 36.7 C 111 H 19 110/62 96 09/30/24 22:32 93 H 98/67 L 09/30/24 22:00 113 H O2 Del Method 10/01/24 08:09 Room Air 10/01/24 03:05 Room Air 09/30/24 22:35 Room Air 09/30/24 22:32 09/30/24 22:00 Laboratory Results CBC, CMP, mag reviewed PG Care Time/CCT Total # of Minutes Spent Total Time Spent with Patient: Total time spent is greater than 50% in coordination of care (as documented) at patient's floor/unit and/or counseling patient: Coding Level of Care Code 64388 SUB INP/OBS CARE 3/50MIN Diagnoses Acute on chronic heart failure with preserved ejection fraction (HFpEF) I50.33 Acute kidney injury N17.9 Rhinovirus infection B34.8
[2024-10-01] MEDS: MAGNESIUM SULFATE / D5W 1 GM/100 ML BAG IV ONE (08:41)
[2024-10-01] MEDS: SODIUM ZIRCONIUM CYCLOSILICATE 10 GM PACKET PO SCH (11:40)
--- NOTE | 2024-10-01 12:13 | Nephrology Progress Note ---
Date of Service October 01, 2024 Assessment & Plan (1) Acute on chronic heart failure with preserved ejection fraction (HFpEF): Plan: Furosemide 40 mg IV provided in the ER yesterday. Additional diuretics have been held. BP and volume status acceptable. Document I/O's. (2) Acute kidney injury: Plan: Non-oliguric. Document strict I/O's. No emergent indication for [employer]. Volume status improved. Urine microscopy acellular. Otherwise notable for hyaline and granular casts. Transplant US requested. Medications are appropriately dosed for kidney function. Repeat serum metabolic profile tomorrow AM. (3) Kidney transplant status, living unrelated donor: Plan: Baseline creatinine 1.9-2.3 mg/dL. Continue MMF, tacrolimus, Cellcept per home Rx. (4) Rhinovirus infection: (5) Infiltrate of lower lobe of right lung present on imaging study: Plan: Follow up imaging to be coordinated s/p diuresis and treatment for respiratory infection. Admission and Anticipated Discharge Date Admission Date: September 30, 2024 Subjective No acute events overnight. Gumaro was resting comfortably in bed this AM. Some generalized malaise and persistent weakness reported. Appetite is decreased. Edema has improved. He reports good response to diuretic yesterday. UOP not completely documented. No urinary complaints. No fevers or chills. Review of Systems Review of Systems: All systems reviewed & are unremarkable except as noted in HPI & below Physical Exam Constitutional: well developed and + ill appearing; no acute distress Eyes: + anicteric sclerae ENMT: Mouth: no oral mucosal abnormality and oral mucous membranes not dry Neck: normal visual inspection and trachea midline Respiratory: normal respiratory effort Auscultation: lungs clear to auscultation bilaterally Cardiovascular: Rate/Rhythm: + irregularly irregular Heart Sounds: normal S1 and normal S2 Extremities: + edema (improved) Musculoskeletal: Extremities: no cyanosis and no clubbing Skin: no rashes and no jaundice Neurologic: Motor/Sensory: no tremor and no asterixis Psychiatric: Orientation: alert and oriented x 3 Results & Data Vital Signs (Past 12 Hours) Vital Signs Temp Pulse Pulse Resp BP Pulse Ox O2 Del Method 10/01/24 10:53 36.4 C L 97 H 19 100/67 100 Room Air 10/01/24 08:09 36.6 C 98 H 19 104/73 100 Room Air 10/01/24 08:00 86 10/01/24 03:05 36.7 C 100 H 20 99/60 L 99 Room Air Laboratory Results Laboratory Results - last 24 hr 09/30/24 10/01/24 12:36 06:46 WBC 32.49 H* RBC 2.25 L Hgb 7.7 L Hct 24.0 L MCV 106.7 H MCH 34.2 H MCHC 32.1 RDW Std Deviation 65.0 H RDW Coeff of Jaye 16.8 H Plt Count 274 MPV 9.8 Sodium 134 L 132 L Potassium 4.7 5.5 H Chloride 102 100 Carbon Dioxide 24 23 Anion Gap 8 9 BUN 61 H 72 H Creatinine 2.08 H 2.83 H D Est Cr Clr Drug Dosing 41.9 30.8 eGFR 35.12 24.27 BUN/Creatinine Ratio 29.3 H 25.4 H Glucose 89 106 H Calcium 8.8 9.0 Magnesium 1.6 L Troponin I High Sens 62.4 H* PG Care Time/CCT Total # of Minutes Spent Total Time Spent with Patient: Total time spent is greater than 50% in coordination of care (as documented) at patient's floor/unit and/or counseling patient: Coding Level of Care Code 31677 SUB INP/OBS CARE 3/50MIN Diagnoses Acute on chronic heart failure with preserved ejection fraction (HFpEF) I50.33 Acute kidney injury N17.9 Kidney transplant status, living unrelated donor Z94.0 Rhinovirus infection B34.8 Infiltrate of lower lobe of right lung present on imaging study R91.8
[2024-10-01] MEDS ORDERED: SODIUM CHLORIDE 0.9% 50 ML IV PRN (12:41)
[2024-10-01] MEDS ORDERED: SODIUM CHLORIDE 0.9% 100 ML IV PRN (12:41)
[2024-10-01] MEDS ORDERED: IMMUNE GLOBULIN (HUMAN) SOLN IV SCH (12:45)
--- NOTE | 2024-10-01 15:43 | Ultrasound Report ---
US renal transplant w dop HISTORY: 63 years-old Male KRISSY acute kidney injury with a renal transplant COMPARISON: CT 06/27/2024, ultrasound 01/21/2024. TECHNIQUE: Multiple real-time sonographic images of the kidneys were obtained assessing grayscale lia earance, color and spectral flow FINDINGS: Right elim ira kidney measures 6.9 cm in length and the left measures 5.1 cm. Both of these kidneys are atrophic with cortical thinning and increased parenchymal echogenicity. No hydronephrosis. Right pelvic transplanted kidney redemonstrated measuring 11.9 x 5.7 x 5.8 cm demonstrating no hydron ephrosis or suspicious mass lesion. Low resistance waveforms in the transplanted right renal artery w ith peak systolic velocities measuring up to 41 cm/s. Possible nonobstructing right renal calculus me asuring 3 mm. Patent transplanted renal vein. Resistive indices measure up to 0.8. Decompressed bladder. IMPRESSION: 1. Unremarkable appearance of the right renal transplant. 2. No significant stenosis or occlusion within the right transplant renal artery. 3. Atrophic elim ira kidneys. ACT 112: Negative or not required by law. The above report was generated using voice recognition software. It may contain grammatical, syntax o r spelling errors. Electronically signed by: Darion Garcia M.D. 10/01/2024 3:40 PM
[2024-10-01] MEDS: Octagam 10% IVIG 20 gram bottle IV SCH (15:52)
[2024-10-01 16:31] LABS: BUN Creatinine Ratio 23.2 (10-20); Calcium 8.9 mg/dl (8.6-10.3); Creatinine Clr Calc Pharmacy 26.6 ml/min; Potassium 5.2 mmol/L (3.5-5.1)
--- NOTE | 2024-10-01 19:29 | XRay Report ---
Clinical History: Swelling. Index finger infection 6 views of the right hand are submitted for review. Findings: There is sclerosis and deformity of the lunate. This could be due to chronic avascular necrosis or an old fracture. No clear acute fracture is seen. There is some cortical and subcortical lucency involving the tuft of the index finger distal phalanx No subluxation or dislocation is seen. There is mild osteoarthritis of the thumb carpometacarpal joint. No other osseous abnormality is identified. There are no radiopaque foreign bodies. There are extensive vascular calcifications Impression: 1. Possible osteomyelitis involving the tuft of the right index finger distal phalanx 2. Sclerosis and deformity of the lunate that could be due to chronic avascular necrosis or old trauma Electronically signed by Milton Mcgraw 10-01-2024 7:28 PM
--- NOTE | 2024-10-01 19:48 | XRay Report ---
Clinical History: Swelling. Index finger infection 3 views of the right and a finger are submitted for review. Findings: There is some cortical and subcortical lucency involving the tuft of the index finger distal phalanx No subluxation or dislocation is seen. No other osseous abnormality is identified. There are no radiopaque foreign bodies. Impression: Possible osteomyelitis involving the tuft of the right index finger distal phalanx Electronically signed by Milton Mcgraw 10-01-2024 7:42 PM
[2024-10-02 00:40] LABS: Hematocrit (blood only) 23.2 % (42.0-52.0); Hemoglobin 7.5 g/dl (14.0-18.0); Mean Corpuscular Hemoglobin 34.1 pg (25.0-34.0); Mean Corpuscular Hgb Conc 32.3 g/dL (32.0-36.0); Mean Corpuscular Volume 105.5 fL (80.0-100.0); Platelet Count 262 K/uL (130-400); RDW Standard Deviation 63.7 fL (36.4-46.3); White Blood Count 20.85 K/ul (4.8-10.8)
[2024-10-02 00:56] LABS: Albumin Globulin Ratio 0.7 (0.9-2); Albumin Level 2.9 gm/dl (3.4-5.0); BUN Creatinine Ratio 22.6 (10-20); Bilirubin,Total 1.7 mg/dl (0.2-1.0); Calcium 8.6 mg/dl (8.6-10.3); Creatinine Clr Calc Pharmacy 24.9 ml/min; Globulin 4.3 gm/dl (2.5-4.0); Total Protein 7.2 gm/dl (6.0-8.3)
[2024-10-02 01:05] LABS: Basophils # (auto) 0.01 K/uL (0.00-0.20); Immature Granulocytes # (auto) 0.25 K/uL (0.01-0.20); Immature Granulocytes % (auto) 1.2 %; Lymphocytes # (auto) 0.11 K/uL (1.20-3.40); Lymphocytes % (auto) 0.5 %; Monocytes # (auto) 0.94 K/uL (0.11-0.59); Monocytes % (auto) 4.5 %; Neutrophils # (auto) 19.54 K/uL (1.40-6.50); Neutrophils % (auto) 93.8 %; Polychromasia 1+
[2024-10-02 01:12] LABS: Troponin I High Sensitivity 361.7 pg/ml (0-20)
--- NOTE | 2024-10-02 01:17 | Communication Note ---
Date of Service: October 02, 2024 RN contacted me to notify patient was experiencing pressure over his chest with associated feeling of warmth and was slightly hypotensive (109/63) at the time. Patient had IVIG running at the time which was stopped before I arrived. On arrival to the bedside, patient laying comfortably in bed and stating that pressure over his chest had resolved. Denies any other associated symptoms. Advised to continue to hold IVIG and EKG obtained and showing ischemic changes in lateral leads that is similar to that which is seen in EKG from 09/13/24 but slightly worse. Troponin obtained and elevated at 361.7. Repeat troponin obtained after 2 hours and showing level of 361. Other labs remarkable for anemia of 7.5 (previous level of 7.7). PRBC ordered during the day but not yet arrived (Blood bank giving possible estimate for time of arrival to be around noon). After IVIG held, BP improved to 122/72. Patient remained asymptomatic throughout this time. Will continue to hold IVIG for now and monitor VS. Resident Activity Tracking Resident Involvement: Resident Care Provided Care Provided: Adult Hospital Medicine
[2024-10-02 02:25] LABS: Hematocrit (blood only) 22.8 % (42.0-52.0); Hemoglobin 7.5 g/dl (14.0-18.0)
--- NOTE | 2024-10-02 04:43 | Ultrasound Report ---
EXAM: US venous doppler UE RT CLINICAL HISTORY: RT FOREARM AND HAND SWELLING. TECHNIQUE: Ultrasound examination of right upper extremity veins was performed in real-time and duplex. One or more of the following were performed- spectral analysis, resistive index, waveform analysis, and pulsed Doppler. COMPARISON: None. FINDINGS: An echogenic wall-adherent thrombus is seen within the right internal jugular vein with partial compressibility. Normal phasic, non-pulsatile, and spontaneous flow is noted in the right subclavian, axillary, brachial, basilic, antecubital, radial, and ulnar veins. Visualized veins of the right upper extremity demonstrate normal compressibility. No sonographic evidence of acute deep vein thrombosis (DVT) is detected in the visualized veins of the upper extremity. Compression and Augmentation: All evaluated veins compress fully with applied transducer pressure. Augmentation of venous flow is noted with distal compression. Additional Findings: The right cephalic vein is not visualized at the site of the IV line. Edema of the right anterior forearm is noted. IMPRESSION: 1. An echogenic wall-adherent thrombus is seen within the right internal jugular vein with partial compressibility. 2. The right cephalic vein is not visualized at the site of the IV line, most likely thrombosed. 3. Edema of the right anterior forearm is noted. 4. Please correlate clinically. Disclaimer: DVT could be missed early in the disease when clot burden is minimal. For patients with moderate and high pretest probability of DVT and negative ultrasound, the [employer] clinical guidelines recommend testing with a D-dimer assay or repeat ultrasound in 5-7 days. If symptoms worsen, the Society of radiologists in ultrasound recommends repeating ultrasound even earlier. Electronically signed by Giuseppe Real 10-02-2024 04:42 AM
--- NOTE | 2024-10-02 05:41 | Electrocardiogram Report ---
Test Reason : Blood Pressure : */* mmHG Vent. Rate : 110 BPM Atrial Rate : * BPM P-R Int : * ms QRS Dur : 144 ms QT Int : 360 ms P-R-T Axes : * -34 124 degrees QTcB Int : 487 ms Atrial fibrillation with rapid ventricular response Left axis deviation Right bundle branch block Septal infarct , age undetermined T wave abnormality, consider lateral ischemia Abnormal ECG When compared with ECG of 13-Sep-2024 07:10, Septal infarct is now Present Confirmed by Chauncey Dahl ([id number]) on 10/02/2024 5:41:00 AM Referred By: REFERRED SELF Confirmed By: Chauncey Dahl
[2024-10-02] MEDS: DAPTOmycin 500 MG in SYRINGE 0 ML IV SCH (06:33)
[2024-10-02] MEDS: Heparin IV Adult Wt-Based Standard w/ INITIAL Bolus Protocol IV STA (06:45)
[2024-10-02 06:46] LABS: Hematocrit (blood only) 23.7 % (42.0-52.0); Hemoglobin 7.5 g/dl (14.0-18.0); Mean Corpuscular Hemoglobin 33.2 pg (25.0-34.0); Mean Corpuscular Hgb Conc 31.6 g/dL (32.0-36.0); Mean Corpuscular Volume 104.9 fL (80.0-100.0); Mean Platelet Volume 9.9 fL (9.4-12.4); Platelet Count 266 K/uL (130-400); RDW Coefficient of Variation 16.9 % (11.5-14.5); RDW Standard Deviation 64.5 fL (36.4-46.3); Red Blood Count 2.26 M/uL (4.70-6.10); White Blood Count 20.29 K/ul (4.8-10.8)
[2024-10-02] MEDS: HEPARIN SOD (PORCINE) 1000 UNIT/ML IV ONE ×2 (06:47→20:34)
[2024-10-02 07:06] LABS: BUN Creatinine Ratio 22.8 (10-20); Calcium 8.9 mg/dl (8.6-10.3)
[2024-10-02] MEDS: HEPARIN 25000 UNIT/500 ML 25,000 UNITS/500 ML BAG IV SCH (07:38)
[2024-10-02 08:21] LABS: INR 1.2 (0.9-1.1); Partial Thromboplastin Ratio 1.2; Partial Thromboplastin Time 31 Seconds (21-31); Prothrombin Time 12.6 Seconds (9.0-12.0)
[2024-10-02 08:21] LABS: Magnesium 1.9 mg/dl (1.7-2.4)
--- NOTE | 2024-10-02 09:23 | Nephrology Progress Note ---
Date of Service October 02, 2024 Assessment & Plan (1) Acute on chronic heart failure with preserved ejection fraction (HFpEF): Plan: Bumex 1 mg IV this AM. Avoid aggressive diuresis due to tendency toward hypotension and intravascular depletion, especially if additional IVIG infusions are planned. Goal is to try to maintain even or slightly negative fluid balance. Document strict I/O's. Low sodium diet and daily fluid restriction. Metoprolol has been held intermittently due to hypotension. Remains in chronic atrial fibrillation with elevated heart rate. PRBC transfusion support is being provided. Gumaro is not endorsing symptoms of rapid atrial fibrillation at this time. (2) Acute kidney injury: Plan: Urine output decreased. Clinical presentation consistent with ATN with potenti ally superimposed injury related to hemodynamic changes and IVIG infusion. Transfusion support PRN to maintain Hgb >8. Thankfully, there is no emergent indication for [employer] at this time. Urine microscopy acellular. Otherwise notable for hyaline and granular casts. Transplant US reviewed. No obstruction. Transplant artery patent. Allopurinol dose reduced to 100 mg daily this AM. Acyclovir reduced to 200 mg twice daily. Medications are otherwise appropriate for kidney function. Monitor CK on daptomycin. Repeat serum metabolic profile tomorrow AM. (3) Kidney transplant status, living unrelated donor: Plan: Baseline creatinine 1.9-2.3 mg/dL. Continue MMF + tacrolimus as Rx. (4) Rhinovirus infection: (5) Infiltrate of lower lobe of right lung present on imaging study: Plan: Follow up imaging to be coordinated s/p diuresis and treatment for respiratory infection. (6) Infection of finger: Plan: X-ray concerning for osteomyelitis. Antibiotic therapy has been switched to cefepime + daptomycin. Ortho consult pending. (7) Warm autoimmune hemolytic anemia: Plan: Appreciate hematology consultation. Admission and Anticipated Discharge Date Admission Date: September 30, 2024 Rocio Naik is feeling tired this morning. He did not sleep well last night. No fevers or chills. He reports some increasing discomfort in the right hand and wrist. He notes that the right index finger is increasingly sore to touch. He did not tolerate IVIG infusion due to chest pain and shortness of breath. He has not experienced chest discomfort since the infusion was stopped. He denies palp itations. He feels that he is breathing comfortably this AM. He is laying flat on his back without orthopnea. O2 98% on room air. Remains in atrial fibrillation with HD 110-120 bpm. BP improved this AM. He notes that he is experiencing a subtle dry cough or a sensation that he needs to clear his throat. R IJ thrombus identified yesterday. X-ray concerning for osteomyelitis of the right index finger. Antibiotic therapy has been switched to daptomycin and cefepime. Transfusion support is being arranged. BUmex has been ordered. I discussed the plan of care with Dr. Yusuf this AM. Urine output dropped off overnight. Gumaro denies any urinary complaints. Renal US was reviewed. Review of Systems Review of Systems: All systems reviewed & are unremarkable except as noted in HPI & below Physical Exam Constitutional: well developed and + ill appearing; no acute distress Eyes: + anicteric sclerae ENMT: Mouth: + dry oral mucous membranes (slightly) Neck: normal visual inspection, trachea midline and + thick neck Respiratory: normal respiratory effort; not tachypneic Auscultation: lungs clear to auscultation bilaterally and + rales Cardiovascular: Rate/Rhythm: + tachycardic and + irregularly irregular Heart Sounds: normal S1 and normal S2 Extremities: + edema (+1 pitting BL LE edea) Musculoskeletal: Extremities: no cyanosis and no clubbing Lesion on right index finger - noted swelling without erythema of right hand to wrist Skin: no rashes and no jaundice Neurologic: Motor/Sensory: no tremor and no asterixis Psychiatric: Orientation: alert and oriented x 3 Results & Data Vital Signs (Past 12 Hours) Vital Signs Temp Pulse Pulse Resp BP Pulse Ox O2 Del Method 10/02/24 08:19 36.4 C L 112 H 19 126/66 98 Room Air 10/02/24 03:50 36.6 C 91 H 18 109/73 99 Room Air 10/02/24 00:30 36.4 C L 99 H 18 122/72 100 Room Air 10/01/24 23:24 36.4 C L 95 H 20 109/46 L 98 Room Air 10/01/24 22:47 36.5 C 95 H 20 104/46 L 99 Room Air 10/01/24 22:26 36.4 C L 97 H 20 111/54 L 99 Room Air 10/01/24 22:00 105 H 10/01/24 21:34 36.4 C L 99 H 20 119/65 99 Room Air Laboratory Results Laboratory Results - last 24 hr 10/01/24 10/01/24 10/01/24 12:54 12:54 12:54 WBC RBC Hgb Hct MCV MCH MCHC RDW Std Deviation RDW Coeff of Jaye Plt Count MPV Immature Gran % (Auto) Neut % (Auto) Lymph % (Auto) [place]atte % (Auto) Eos % (Auto) Baso % (Auto) Neut # (Auto) Lymph # (Auto) [place] # (Auto) Eos # (Auto) Baso # (Auto) Immature Gran # (Auto) Polychromasia PT INR APTT PTT Ratio Sodium Potassium Chloride Carbon Dioxide Anion Gap BUN Creatinine Est Cr Clr Drug Dosing eGFR BUN/Creatinine Ratio Glucose Calcium Magnesium Total Bilirubin AST ALT Alkaline Phosphatase Troponin I High Sens Total Protein Albumin Globulin Albumin/Globulin Ratio Blood Type A Positive Antibody Screen POSITIVE A Antibody Identification Auto Cold Agglutinin Auto Gil Agglutinin Anti-E Antibody ID Referred Pending Antibody ID Comment Cancelled Crossmatch See Detail 10/01/24 10/02/24 10/02/24 15:56 00:01 01:55 WBC 20.85 H RBC 2.20 L Hgb 7.5 L 7.5 L Hct 23.2 L 22.8 L MCV 105.5 H MCH 34.1 H MCHC 32.3 RDW Std Deviation 63.7 H RDW Coeff of Jaye 17.0 H Plt Count 262 MPV 10.0 Immature Gran % (Auto) 1.2 Neut % (Auto) 93.8 Lymph % (Auto) 0.5 [place]atte % (Auto) 4.5 Eos % (Auto) 0.0 Baso % (Auto) 0.0 Neut # (Auto) 19.54 H Lymph # (Auto) 0.11 L [place] # (Auto) 0.94 H Eos # (Auto) 0.00 Baso # (Auto) 0.01 Immature Gran # (Auto) 0.25 H Polychromasia 1+ PT INR APTT PTT Ratio Sodium 130 L 129 L Potassium 5.2 H 5.0 Chloride 100 98 Carbon Dioxide 21 21 Anion Gap 9 10 BUN 76 H 79 H Creatinine 3.28 H D 3.50 H Est Cr Clr Drug Dosing 26.6 24.9 eGFR 20.33 18.81 BUN/Creatinine Ratio 23.2 H 22.6 H Glucose 137 H 131 H Calcium 8.9 8.6 Magnesium Total Bilirubin 1.7 H AST 18 ALT 13 Alkaline Phosphatase 60 Troponin I High Sens 361.7 H* D Total Protein 7.2 Albumin 2.9 L Globulin 4.3 H Albumin/Globulin Ratio 0.7 L Blood Type Antibody Screen Antibody Identification Antibody ID Referred Antibody ID Comment Crossmatch 10/02/24 10/02/24 10/02/24 02:13 06:16 07:37 WBC 20.29 H RBC 2.26 L Hgb 7.5 L Hct 23.7 L MCV 104.9 H MCH 33.2 MCHC 31.6 L RDW Std Deviation 64.5 H RDW Coeff of Jaye 16.9 H Plt Count 266 MPV 9.9 Immature Gran % (Auto) Neut % (Auto) Lymph % (Auto) [place] % (Auto) Eos % (Auto) Baso % (Auto) Neut # (Auto) Lymph # (Auto) [place] # (Auto) Eos # (Auto) Baso # (Auto) Immature Gran # (Auto) Polychromasia PT 12.6 H INR 1.2 H APTT 31 PTT Ratio 1.2 Sodium 128 L Potassium 5.0 Chloride 98 Carbon Dioxide 22 Anion Gap 8 BUN 80 H Creatinine 3.51 H Est Cr Clr Drug Dosing 25.0 eGFR 18.74 BUN/Creatinine Ratio 22.8 H Glucose 143 H Calcium 8.9 Magnesium 1.9 Total Bilirubin AST ALT Alkaline Phosphatase Troponin I High Sens 361.0 H* Total Protein Albumin Globulin Albumin/Globulin Ratio Blood Type Antibody Screen Antibody Identification Antibody ID Referred Antibody ID Comment Crossmatch PG Care Time/CCT Total # of Minutes Spent Total Time Spent with Patient: Total time spent is greater than 50% in coordination of care (as documented) at patient's floor/unit and/or counseling patient: Coding Level of Care Code 75231 SUB INP/OBS CARE 3/50MIN Diagnoses Acute on chronic heart failure with preserved ejection fraction (HFpEF) I50.33 Acute kidney injury N17.9 Kidney transplant status, living unrelated donor Z94.0 Rhinovirus infection B34.8 Infiltrate of lower lobe of right lung present on imaging study R91.8 Infection of finger L08.9 Warm autoimmune hemolytic anemia D59.11
--- NOTE | 2024-10-02 09:40 | Orthopedic Consultation ---
Date of Service October 02, 2024 Assessment & Plan (1) Infection of finger: Assessment: A 63-year-old gentleman who presented to the hospital for multiple issues including a possible right index finger infection. Plan: I had a long discussion today with the patient about his right finger pathology with ample amount of time for patient ask any questions stated concerns. All question and concerns were answered the patient's satisfaction. At this point in time I do feel that he did have at one point a soft tissue infection/blister to the distal end of his index finger. He did admit to self expressing this region. He is really not having any issues with his finger at this time. He denies any active drainage for the past couple weeks with no discomfort. It does not appear to be actively abscessing. It does appear in nature to be a healing blister. He does have an elevated white count but this i s mostly likely due to his other comorbidities at this point. It is currently going down with the use of antibiotics. I would continue the use of antibiotics at this point. I do not think a consult for wound care would be necessary due to no active wound being present but this could also be an option to get there opinion on the finger. He does not appear to be a great surgical candidate at this time. I would exhaust conservative treatment options for him unless it appears to be worsening. An MRI of the upper extremity could rule out any abscess of the finger as well as give a possible better sign of what is causing his right forearm discomfort. Will continue to keep an eye on the finger. I will discuss this patient's case with Dr. Morel. Please see Dr. Morel's addendum for final treatment plan. Patient seen and examined by me, ALBERTO Morel. Agree with above. No major finger infection and not source of problems. Major compaint is wrist pain, suspicious for Gout episode in my opinion. Continue to treat medically and add additional tx for gout if possible...steroid vs toradol if possible. Will let up to medicine to decide. Recommend wound care consult for management of index finger wound. JOSE LUIS History of Present Illness Reason for Consultation: . Possible right index finger infection. Requesting Physician: . Attending Physician: Alejandrina Yusuf MD . Gumaro is a 63-year-old gentleman who is known to our practice from receiving a right total hip arthroplasty back in May 2024. We are consulted today for possible right index finger infection. This was subsequently found during his hospital course. He is currently admitted for general weakness. He does have significant medical history of heart failure, A-fib, end-stage renal disease as well as status post renal transplant with bilateral enteroviruses/rhinovirus/sepsis with shock and adrenal insufficiency upon admission. He he noted that yesterday evening he started to experience some right arm pain. They originally thought it was due to the IV. They completed a Doppler of the right arm as well as x-rays. It did show a right cephalic vein as thrombosed as well as edema to the right anterior forearm. They did make it the discretion that it may have been too early for a DVT to be seen with the ultrasound. The x-rays of the finger/hand did show possible osteomyelitis involving the tuft of the right index finger to the distal phalanx. He does note that he did have what appeared to be a blister a couple weeks ago to the distal end of his index finger that he did pop. He noted that he did this with a hypodermic needle. He noted that he expressed brownish material. He noted that he really never had pain, redness, or warmth to the finger. He did note that the blistering appearance of his finger has roughly been the same with no change. He notes that the finger really has given him no issues compared to his wrist and forearm today. He would rate his finger pain around a 1 out of 10 with his forearm/wrist pain a 6 out of 10 or worsen depending on activities. He denies any neck pain, proximal extremity pain, numbness/tingling, or paresthesias. He denies any other concerns today. Allergies Allergy/AdvReac Type Severity Reaction Status Date / Time clopidogrel [From Plavix] Allergy Unknown Unknown Verified 09/27/24 15:34 Sorsakm-BGN-[id number] Reductase AdvReac Intermediate myalgias Verified 09/27/24 15:34 Inhibitor [Kyuqwpx-Toz-Zgq Reductase Inhibitor] Home Medications Medication Instructions Recorded Confirmed Type mycophenolate mofetil 250 mg 500 mg (2 x 250 mg) PO BID #360 05/29/20 09/30/24 Rx capsule caps amoxicillin 500 mg capsule 2,000 mg PO DIRECTED PRN PRIOR 07/29/20 09/30/24 History TO DENTAL PROCEDURES multivitamin 1 tab PO QAM 08/02/21 09/30/24 History folic acid 1 mg tablet 1 mg PO BID #180 tabs 09/20/23 09/30/24 Rx pantoprazole 40 mg tablet,delayed 40 mg PO BID #180 tabs 12/06/23 09/30/24 Rx release calcium carbonate 500 mg PO QAM 01/21/24 09/30/24 History ferrous sulfate 325 mg (65 mg 325 mg PO BID #60 tabs 02/05/24 09/30/24 Rx iron) tablet metoprolol succinate 100 mg 100 mg PO HS #90 tabs 04/22/24 09/30/24 Rx tablet,extended release 24 hr acyclovir 400 mg tablet 400 mg PO BID 05/07/24 09/30/24 History ondansetron 4 mg disintegrating 4 mg PO Q8 PRN nausea #20 tabs 05/22/24 09/30/24 Rx tablet magnesium oxide 500 mg PO BID 08/09/24 09/30/24 History albuterol sulfate 90 mcg/actuation 2 inh inhalation Q6H PRN shortness 08/25/24 09/30/24 Rx aerosol inhaler of breath or wheezing #8.5 grams tacrolimus 1 mg capsule, 1 - 2 mg PO UD 08/30/24 09/30/24 History immediate-release danazol 200 mg capsule 200 mg PO BID 09/13/24 09/30/24 History metoprolol succinate 25 mg 25 mg PO QAM #30 tabs 09/20/24 09/30/24 Rx tablet,extended release 24 hr allopurinol 100 mg tablet 100 mg PO BID 09/24/24 09/30/24 History prednisone 5 mg tablet 5 mg PO QDB 09/24/24 09/30/24 History bumetanide 1 mg tablet 1 mg PO DAILY Fluid Retention #90 09/27/24 09/30/24 Rx tabs levothyroxine 125 mcg tablet 125 mcg PO QAM #90 tabs 09/27/24 09/30/24 Rx Past Med/Surg History Problem List (Updated 10/02/24 @ 09:30 by Darion Wisdom PA-C) Infection of finger Acute on chronic heart failure with preserved ejection fraction (HFpEF) Infiltrate of lower lobe of right lung present on imaging study (Acute) Rhinovirus infection (Acute) Acute kidney injury (Acute) Clostridioides difficile diarrhea Sleep apnea, obstructive RBBB (right bundle branch block with left anterior fascicular block) Diastolic CHF Human metapneumovirus (hMPV) pneumonia Atrial fibrillation Acute on chronic diastolic (congestive) heart failure Infection due to human metapneumovirus (hMPV) (Acute) Hypomagnesemia (Acute ~09/17/24) Pneumonia (Acute) Adrenal insufficiency Bilateral leg edema Atrial fibrillation with rapid ventricular response Sepsis due to pneumonia Kidney transplant status, living unrelated donor (Acute) Acute exacerbation of CHF (congestive heart failure) (Acute) Status post right hip replacement LVH (left ventricular hypertrophy) Coronary artery calcification CKD (chronic kidney disease) 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 Status post kidney transplant Warm autoimmune hemolytic anemia On prednisone therapy Ground glass opacity present on imaging of lung Rosales's esophagus with esophagitis Macrocytic anemia Erosive esophagitis EGD 08/2023 Abnormal findings on diagnostic imaging of other abdominal regions, including retroperitoneum Arthritis of right hip Hip arthritis Adrenal nodule MA PCP considering adrenal protocol CT or MRI for characterization Herpetic maria Aneurysm Abnormal LFTs Pneumonia Acute non-ST elevation myocardial infarction (NSTEMI) (Acute) 01/31/23 Megaloblastic anemia (Acute) Cerumen impaction Retroperitoneal mass lesion biopsy negative for malignancy 05/2022 per transplant record 03/17/23 Hypotension Diarrhea Adenomatous polyps Vitamin D deficiency Chronic kidney disease, stage 3a COVID-19 (Acute) Acute respiratory failure with hypoxemia (Acute) 07/29/20 Anemia (Chronic) hospitalized at [facility] 07/2023, received blood transfusion 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 History of esophageal reflux (Chronic) controlled, stable per pt Hyperlipidemia (Chronic) Hypothyroidism (Chronic) Obesity (Chronic) Osteoporosis (Chronic) Proteinuria (Chronic) Medical History Hx of sepsis due to pneumonia, ~07/26/24, hospitalized at [facility] Erosive esophagitis hx, EGD 08/2023 History of Clostridioides difficile infection dx 09/14/24, [facility]; 09/24/24, per pt, "will be finishing abx in next day or so" CKD (chronic kidney disease) f/u il nephrology Bilateral leg edema "has some, has gotten better" Hx of adrenal insufficiency Hx of right bundle branch block f/u il cardiology History of recent hospitalization pt admitted to [facility] multiple times over 2023 (01/21/24, 05/2024-sx, 07/13/24, 07/26/24, 08/22/24, 08/24/24); most recent visit 08/24/24 per records "63-year-old male with past medical history significant for HFpEF, A-fib, ESRD, WAHA, and additional chronic medical conditions who is presenting for sudden onset of chest pain with shortness of breath after exertion following eating out at [employer] followed by increased activity with cutting wood and developed chest pain. CXR with evidence for volume overload and was provided IV Lasix last nitro on admission with improvement/resolution of symptoms. Also with KRISSY that was likely due to hypotension/hypoperfusion and increased diuretic use recently; improving. Also with A-fib RVR, suspect due to increased salt load/increased activity/untreated CHERELLE." Rhinovirus infection Hypomagnesemia Hx of gout Hx of congestive heart failure Sleep apnea, obstructive no device Hypocalcemia hx Weakness Elevated troponin hx, 07/2024; f/u il cardiology Atrial fibrillation with rapid ventricular response controlled w/ metoprolol; f/u il cardiology Hypotension pt unaware? Heart failure with preserved ejection fraction hx; f/u il cardiology Hypomagnesemia hx History of non-ST elevation myocardial infarction (NSTEMI) entered into chart 01/2023 Osteoporosis Hypothyroidism Hyperlipidemia Hx of esophageal reflux controlled, stable per pt 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 Abdominal aortic aneurysm 4.9 cm on 01/2023 chest CTA; monitoring History of colon polyps Retroperitoneal mass lesion biopsy negative for malignancy 05/2022 per transplant record 03/17/23 Pneumonia hx, ~08/23/24 Adrenal nodule monitored by PCP Arthritis On prednisone therapy Rosales's esophagus with esophagitis Atrial flutter hx 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 Thoracic ascending aortic aneurysm 4.[address] 01/19/24 Hypertension controlled, stable per pt Limb alert care status left arm restriction History of blood transfusion ~07/2024 Hx of herpetic maria History of COVID-19 07/2020- covid pneumonia, hospitalized; resolved History of renal dialysis prior to kidney transplant; has dialysis fistula left arm History of CVA (cerebrovascular accident) 2008, mild memory changes Surgical History History of total right hip arthroplasty Hx of kidney transplant 02/2010- [place] History of esophagogastroduodenoscopy (EGD) Hx of cholecystectomy Hx of exploratory laparotomy History of colonoscopy Family History Grandmother (Maternal) Alzheimer disease Mother Depression Denies family history of Ovarian cancer Prostate cancer Diabetes Heart disease Myocardial infarction Breast cancer Lung cancer COPD (chronic obstructive pulmonary disease) Colorectal cancer Hypertension Stroke Social History Smoking Status: Never smoker Second Hand Exposure: No; Do You Dip or Chew Tobacco: No; Tobacco Cessation Education Requested by Patient: No Hx Alcohol Use: No Hx Substance Use: No 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: [place] Islander Communication Ability: Effective Visual Impairment: No Limitations Hearing Ability: Normal Alliance Director Required: No Beliefs That Will Affect Care: None marital status: Current Living Situation: Spouse current occupational status: employed current occupation: [employer] How many Children do You have: 1 Other Information That Helps Us Care for You: No Feels Safe at Home: Yes Safety Concerns: Feels Safe At This Time Childhood Exposure to Second-Hand Smoke: No Dental Care, Regularly: Yes Seatbelt Use: sometimes Sunscreen Use: No Assistive Devices: Cane and Walker Review of Systems All systems reviewed & are unremarkable except as noted in HPI & below. Physical Exam Constitutional: WD/WN, vitals as above Respiratory: normal respiratory effort Cardiovascular: Tachycardic as well as irregularly irregular rate. Gastrointestinal (Abdomen): normal bowel sounds, soft, nontender, no hepatosplenomegaly Skin: no rashes, warm and dry Neurologic: CN's II-XI intact bilaterally and moves all extremities Psychiatric: A+Ox3, euthymic affect Musculoskeletal: On focused examination of the right upper extremity, there is a notable firm to the touch what appears to be healing bullae to the distal end of the finger. Does not appear to be erythemic in nature. He has no tenderness to the area. There is no distinct fluid felt. He does have notable tenderness to palpation throughout the forearm. He is able to move his elbow, wrist, and all 5 digits freely. It does have marked soft tissue edema when compared to the other upper extremity. He does have 2 IVs at this time with one of the forearm and 1 where appears to be in the cephalic vein. +2 radial pulse. Less than 2- second capillary refill. Normal sensation. Neurovascular intact. Results & Data Results & Data Laboratory Results . Abnormal lab results 10/01/24 10/01/24 10/02/24 Range/Units 12:54 15:56 00:01 WBC 20.85 H (4.8-10.8) K/ul RBC 2.20 L (4.70-6.10) M/uL Hgb 7.5 L (14.0-18.0) g/dl Hct 23.2 L (42.0-52.0) % MCV 105.5 H (80.0-100.0) fL MCH 34.1 H (25.0-34.0) pg MCHC (32.0-36.0) g/dL RDW Std Deviation 63.7 H (36.4-46.3) fL RDW Coeff of Jaye 17.0 H (11.5-14.5) % Neut # (Auto) 19.54 H (1.40-6.50) K/uL Lymph # (Auto) 0.11 L (1.20-3.40) K/uL [place] # (Auto) 0.94 H (0.11-0.59) K/uL Immature Gran # (Auto) 0.25 H (0.01-0.20) K/uL PT (9.0-12.0) Seconds INR (0.9-1.1) Sodium 130 L 129 L (136-145) mmol/L Potassium 5.2 H (3.5-5.1) mmol/L BUN 76 H 79 H (6-23) mg/dl Creatinine 3.28 H D 3.50 H (0.6-1.4) mg/dl BUN/Creatinine Ratio 23.2 H 22.6 H (10-20) Glucose 137 H 131 H (70-99(Fasting)) mg/dl Total Bilirubin 1.7 H (0.2-1.0) mg/dl Troponin I High Sens 361.7 H* D (0-20) pg/ml Albumin 2.9 L (3.4-5.0) gm/dl Globulin 4.3 H (2.5-4.0) gm/dl Albumin/Globulin Ratio 0.7 L (0.9-2) Antibody Screen POSITIVE A Crossmatch See Detail 10/02/24 10/02/24 10/02/24 Range/Units 01:55 02:13 06:16 WBC 20.29 H (4.8-10.8) K/ul RBC 2.26 L (4.70-6.10) M/uL Hgb 7.5 L 7.5 L (14.0-18.0) g/dl Hct 22.8 L 23.7 L (42.0-52.0) % MCV 104.9 H (80.0-100.0) fL MCH (25.0-34.0) pg MCHC 31.6 L (32.0-36.0) g/dL RDW Std Deviation 64.5 H (36.4-46.3) fL RDW Coeff of Jaye 16.9 H (11.5-14.5) % Neut # (Auto) (1.40-6.50) K/uL Lymph # (Auto) (1.20-3.40) K/uL [place] # (Auto) (0.11-0.59) K/uL Immature Gran # (Auto) (0.01-0.20) K/uL PT (9.0-12.0) Seconds INR (0.9-1.1) Sodium 128 L (136-145) mmol/L Potassium (3.5-5.1) mmol/L BUN 80 H (6-23) mg/dl Creatinine 3.51 H (0.6-1.4) mg/dl BUN/Creatinine Ratio 22.8 H (10-20) Glucose 143 H (70-99(Fasting)) mg/dl Total Bilirubin (0.2-1.0) mg/dl Troponin I High Sens 361.0 H* (0-20) pg/ml Albumin (3.4-5.0) gm/dl Globulin (2.5-4.0) gm/dl Albumin/Globulin Ratio (0.9-2) Antibody Screen Crossmatch 10/02/24 Range/Units 07:37 WBC (4.8-10.8) K/ul RBC (4.70-6.10) M/uL Hgb (14.0-18.0) g/dl Hct (42.0-52.0) % MCV (80.0-100.0) fL MCH (25.0-34.0) pg MCHC (32.0-36.0) g/dL RDW Std Deviation (36.4-46.3) fL RDW Coeff of Jaye (11.5-14.5) % Neut # (Auto) (1.40-6.50) K/uL Lymph # (Auto) (1.20-3.40) K/uL [place] # (Auto) (0.11-0.59) K/uL Immature Gran # (Auto) (0.01-0.20) K/uL PT 12.6 H (9.0-12.0) Seconds INR 1.2 H (0.9-1.1) Sodium (136-145) mmol/L Potassium (3.5-5.1) mmol/L BUN (6-23) mg/dl Creatinine (0.6-1.4) mg/dl BUN/Creatinine Ratio (10-20) Glucose (70-99(Fasting)) mg/dl Total Bilirubin (0.2-1.0) mg/dl Troponin I High Sens (0-20) pg/ml Albumin (3.4-5.0) gm/dl Globulin (2.5-4.0) gm/dl Albumin/Globulin Ratio (0.9-2) Antibody Screen Crossmatch Diagnostic Findings . Finger X-Ray 10/01/24 18:49 Clinical History: Swelling. Index finger infection 3 views of the right and a finger are submitted for review. Findings: There is some cortical and subcortical lucency involving the tuft of the index finger distal phalanx No subluxation or dislocation is seen. No other osseous abnormality is identified. There are no radiopaque foreign bodies. Impression: Possible osteomyelitis involving the tuft of the right index finger distal phalanx Electronically signed by Milton Mcgraw 10-01-2024 7:42 PM Hand X-Ray 10/01/24 18:49 Clinical History: Swelling. Index finger infection 6 views of the right hand are submitted for review. Findings: There is sclerosis and deformity of the lunate. This could be due to chronic avascular necrosis or an old fracture. No clear acute fracture is seen. There is some cortical and subcortical lucency involving the tuft of the index finger distal phalanx No subluxation or dislocation is seen. There is mild osteoarthritis of the thumb carpometacarpal joint. No other osseous abnormality is identified. There are no radiopaque foreign bodies. There are extensive vascular calcifications Impression: 1. Possible osteomyelitis involving the tuft of the right index finger distal phalanx 2. Sclerosis and deformity of the lunate that could be due to chronic avascular necrosis or old trauma Electronically signed by Milton Mcgraw 10-01-2024 7:28 PM Venous Doppler Study 10/01/24 18:49 EXAM: US venous doppler UE RT CLINICAL HISTORY: RT FOREARM AND HAND SWELLING. TECHNIQUE: Ultrasound examination of right upper extremity veins was performed in real-time and duplex. One or more of the following were performed- spectral analysis, resistive index, waveform analysis, and pulsed Doppler. COMPARISON: None. FINDINGS: An echogenic wall-adherent thrombus is seen within the right internal jugular vein with partial compressibility. Normal phasic, non-pulsatile, and spontaneous flow is noted in the right subclavian, axillary, brachial, basilic, antecubital, radial, and ulnar veins. Visualized veins of the right upper extremity demonstrate normal compressibility. No sonographic evidence of acute deep vein thrombosis (DVT) is detected in the visualized veins of the upper extremity. Compression and Augmentation: All evaluated veins compress fully with applied transducer pressure. Augmentation of venous flow is noted with distal compression. Additional Findings: The right cephalic vein is not visualized at the site of the IV line. Edema of the right anterior forearm is noted. IMPRESSION: 1. An echogenic wall-adherent thrombus is seen within the right internal jugular vein with partial compressibility. 2. The right cephalic vein is not visualized at the site of the IV line, most likely thrombosed. 3. Edema of the right anterior forearm is noted. 4. Please correlate clinically. Disclaimer: DVT could be missed early in the disease when clot burden is minimal. For patients with moderate and high pretest probability of DVT and negative ultrasound, the [place] [employer] clinical guidelines recommend testing with a D-dimer assay or repeat ultrasound in 5-7 days. If symptoms worsen, the Society of radiologists in ultrasound recommends repeating ultrasound even earlier. Electronically signed by Giuseppe Real 10-02-2024 04:42 AM PG Care Time/CCT Total # of Minutes Spent Total Time Spent with Patient: Total time spent is greater than 50% in coordination of care (as documented) at patient's floor/unit and/or counseling patient: Coding Level of Care Code 33691 IN/OBS CONSULT LVL 3,45M Diagnoses Infection of finger L08.9
[2024-10-02] MEDS: BUMETANIDE 1 MG in SYRINGE 0 ML IV ONE (10:15)
--- NOTE | 2024-10-02 13:07 | Infectious Disease Consult ---
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 He presented on 09/29 with increased weakness, fatigue, body aches and bilateral lower extremity edema. He reported feeling feverish at home [place] that he was retaining fluid. Endorsed dyspnea on exertion. Denied chest pain, nausea, vomiting, diarrhea, sweats, headache change in urinary habits. In the ED, temp 37.2, pulse 114, RR 20, BP 120/71, O2 sats 97% on room air. Labs: WBC 15.07, platelets 357, BUN 61, creatinine 2.10, procalcitonin 0.78. Blood cultures with no growth to date. Urinalysis with 0-5 WBCs, > 20 hyaline casts, + granular casts. Respiratory viral panel detected rhinovirus/enterovirus. Chest x-ray shows pulmonary congestive lung changes/interstitial edema. Newly depicted ill-defined opacity at the right lung base which could represent progression of congestion or superimposed infection. Transplant ultrasound was unremarkable. Without significant stenosis or occlusion of the right transplant renal artery. He was started on cefepime for possible pneumonia. Supportive care for entero-/rhinovirus and increased diuretics for possible acute on chronic CHF. His hospital course was complicated by worsening leukocytosis up to WBC 32.49 on (10/01/2024), hypotension with sbp to 70s-80s ( 09/30/2024), right upper extremity swelling with decreased movement of the right wrist due to hand swelling. X-ray of the right hand shows possible osteomyelitis involving the tuft of the right index finger distal phalanx. Sclerosis and deformity of the lunate that could be due to chronic avascular necrosis or old trauma. A right upper extremity Doppler showed edema of the right anterior forearm and thrombus within the right internal jugular vein and likely thrombosed right cephalic vein. He is now on Cefepime, Daptomycin and doxycycline. ID consulted for possible finger osteomyelitis. Orthopedics to evaluate. On my initial exam patient is fatigued appearing. He denies any trauma to the finger or hand. He reports that the hand became progressively more swollen during this admission. Microbiology: Blood culture 09/30 NGTD Antibiotics: Cefepime 09/29 -ongoing Daptomycin 10/01ongoing Doxycycline 09/30ongoing #Possible Right index osteomyelitis on imaging with R hand swelling and decrease ROM # Enterovirus/rhinovirus PCR positive # Possible superimposed bacterial pneumonia vs CHf #RIJ DVT #S/P renal transplant in 2009, on tacrolimus, pred, mycophenolate #H/o R TKA #Krissy Discussion: Right upper extremity swelling in the setting of DVT, however cannot rule out superimposed infection; including osteomyelitis of the right index finger. No mateusz signs of acute infection at this time except for pain and swelling. Patient has a history of gout so the abnormalities on x-ray could be 2/2 to this as well . His presenting symptoms could be a combination of CHF exacerbation with viral pneumonia. Cannot exclude a superimposed bacterial pneumonia. Has a history of negative MRSA screens in the last few month. ON RA. Procal 0.78. To rule out osteomyelitis , need bone biopsy sent for culture and PATHOLogy. He is on broad abx as there was c/f active hand infection and ? pna with associated leukocytosis an hypotension which has improved. Antibiotic exposure may decrease culture yield but not the PATHOLOGY diagnosis. . Recommendations: Continue Cefepime/daptomycin Obtain MRI hand IF c/f OM on imaging, will need tissue diagnosis as per above: send for aerobic, anaerobic, fungal, afb culrues AND Pathology Follow up Hand surgery D/w hospitalist. Thank you for this consult. ID will continue to follow. Terese Brandon MD, MPH Infectious Disease [facility] Call [phone] with questions Consultation Information Consultation was provided via telemedicine using two-way real-time interactive telecommunication between the patient and the telemedicine provider. For the duration of the visit, the provider was performing the assessment from a different facility than the patient. This includesuse of bluetooth stethoscope forauscultationperformed by the telepresenter that the telemedicine provider can hear if described in the physical exam. Development Coach contact information: Please call [facility] Call Center . (Phone Number For Physician Use Only) After establishing a telemedicine visit, patient was: Patient was verified with two unique identifiers Time Spent with Patient: Initial => 75 min History of Present Illness Reason for Consultation: Finger osteomyelitis, Renal transplant Requesting Physician: Alejandrina Yusuf MD Attending Physician: Alejandrina Yusuf MD Allergies Allergy/AdvReac Type Severity Reaction Status Date / Time clopidogrel [From Plavix] Allergy Unknown Unknown Verified 09/27/24 15:34 Vphgdxe-AIC-XhS Reductase AdvReac Intermediate myalgias Verified 09/27/24 15:34 Inhibitor [Jxrjugk-Ags-Jtt Reductase Inhibitor] Home Medications Medication Instructions Recorded Confirmed Type mycophenolate mofetil 250 mg 500 mg (2 x 250 mg) PO BID #360 05/29/20 09/30/24 Rx capsule caps amoxicillin 500 mg capsule 2,000 mg PO DIRECTED PRN PRIOR 07/29/20 09/30/24 History TO DENTAL PROCEDURES multivitamin 1 tab PO QAM 08/02/21 09/30/24 History folic acid 1 mg tablet 1 mg PO BID #180 tabs 09/20/23 09/30/24 Rx pantoprazole 40 mg tablet,delayed 40 mg PO BID #180 tabs 12/06/23 09/30/24 Rx release calcium carbonate 500 mg PO QAM 01/21/24 09/30/24 History ferrous sulfate 325 mg (65 mg 325 mg PO BID #60 tabs 02/05/24 09/30/24 Rx iron) tablet metoprolol succinate 100 mg 100 mg PO HS #90 tabs 04/22/24 09/30/24 Rx tablet,extended release 24 hr acyclovir 400 mg tablet 400 mg PO BID 05/07/24 09/30/24 History ondansetron 4 mg disintegrating 4 mg PO Q8 PRN nausea #20 tabs 05/22/24 09/30/24 Rx tablet magnesium oxide 500 mg PO BID 08/09/24 09/30/24 History albuterol sulfate 90 mcg/actuation 2 inh inhalation Q6H PRN shortness 08/25/24 09/30/24 Rx aerosol inhaler of breath or wheezing #8.5 grams tacrolimus 1 mg capsule, 1 - 2 mg PO UD 08/30/24 09/30/24 History immediate-release danazol 200 mg capsule 200 mg PO BID 09/13/24 09/30/24 History metoprolol succinate 25 mg 25 mg PO QAM #30 tabs 09/20/24 09/30/24 Rx tablet,extended release 24 hr allopurinol 100 mg tablet 100 mg PO BID 09/24/24 09/30/24 History prednisone 5 mg tablet 5 mg PO QDB 09/24/24 09/30/24 History bumetanide 1 mg tablet 1 mg PO DAILY Fluid Retention #90 09/27/24 09/30/24 Rx tabs levothyroxine 125 mcg tablet 125 mcg PO QAM #90 tabs 09/27/24 09/30/24 Rx Patient History Medical History Hx of sepsis due to pneumonia, ~07/26/24, hospitalized at [facility] Erosive esophagitis hx, EGD 08/2023 History of Clostridioides difficile infection dx 09/14/24, [facility]; 09/24/24, per pt, "will be finishing abx in next day or so" CKD (chronic kidney disease) f/u md nephrology Bilateral leg edema "has some, has gotten better" Hx of adrenal insufficiency Hx of right bundle branch block f/u md cardiology History of recent hospitalization pt admitted to [facility] multiple times over 2023 (01/21/24, 05/2024-sx, 07/13/24, 07/26/24, 08/22/24, 08/24/24); most recent visit 08/24/24 per records "63-year-old male with past medical history significant for HFpEF, A-fib, ESRD, WAHA, and additional chronic medical conditions who is presenting for sudden onset of chest pain with shortness of breath after exertion following eating out at [employer] followed by increased activity with cutting wood and developed chest pain. CXR with evidence for volume overload and was provided IV Lasix last nitro on admission with improvement/resolution of symptoms. Also with KRISSY that was likely due to hypotension/hypoperfusion and increased diuretic use recently; improving. Also with A-fib RVR, suspect due to increased salt load/increased activity/untreated CHERELLE." Rhinovirus infection Hypomagnesemia Hx of gout Hx of congestive heart failure Sleep apnea, obstructive no device Hypocalcemia hx Weakness Elevated troponin hx, 07/2024; f/u [facility]n cardiology Atrial fibrillation with rapid ventricular response controlled w/ metoprolol; f/u [facility] cardiology Hypotension pt unaware? 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 Abdominal aortic aneurysm 4.9 cm on 01/2023 chest CTA; monitoring History of colon polyps Retroperitoneal mass lesion biopsy negative for malignancy 05/2022 per transplant record 03/17/23 Pneumonia hx, ~08/23/24 Adrenal nodule monitored by PCP Arthritis On prednisone therapy Rosales's esophagus with esophagitis Atrial flutter hx 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 Thoracic ascending aortic aneurysm 4.[address] 01/19/24 Hypertension controlled, stable per pt Limb alert care status left arm restriction History of blood transfusion ~07/2024 Hx of herpetic maria History of COVID-19 07/2020- covid pneumonia, hospitalized; resolved History of renal dialysis prior to kidney transplant; has dialysis fistula left arm History of CVA (cerebrovascular accident) 2008, mild memory changes Surgical History History of total right hip arthroplasty Hx of kidney transplant 02/2010- [facility] [place], [place] History of esophagogastroduodenoscopy (EGD) Hx of cholecystectomy Hx of exploratory laparotomy History of colonoscopy Family History Grandmother (Maternal) Alzheimer disease Mother Depression Denies family history of Ovarian cancer Prostate cancer Diabetes Heart disease Myocardial infarction Breast cancer Lung cancer COPD (chronic obstructive pulmonary disease) Colorectal cancer Hypertension Stroke Social History Smoking Status: Never smoker Second Hand Exposure: No; Do You Dip or Chew Tobacco: No; Tobacco Cessation Education Requested by Patient: No Hx Alcohol Use: No Hx Substance Use: No 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: German Communication Ability: Effective Visual Impairment: No Limitations Hearing Ability: Normal 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 Beliefs That Will Affect Care: None marital status: Current Living Situation: Spouse current occupational status: employed current occupation: [employer] How many Children do You have: 1 Other Information That Helps Us Care for You: No Feels Safe at Home: Yes Safety Concerns: Feels Safe At This Time Childhood Exposure to Second-Hand Smoke: No Dental Care, Regularly: Yes Seatbelt Use: sometimes Sunscreen Use: No Assistive Devices: Cane and Walker Review of System Pertinent positives as per hpi Physical Exam Physical Exam: -General- NAD, fatigued appearing -Neck- supple -Lungs- Non labored breating, on RA -Abdomen- soft , nt tender -Ext RUE edema. R hand edema, R index fi nger tip with hardened, callous skin. Thumb with tip abnormlity and scar. Decreased flex and extention of finger and wrist 2/2 edema BL LE edema -Neuro-AAO times 4 -Psych- cooperative Results & Data Vital Signs (Past 12 Hours) Vital Signs Temp Pulse Pulse Resp BP Pulse Ox O2 Del Method 10/02/24 11:25 110 H 10/02/24 10:44 36.4 C L 104 H 18 156/78 H 100 Room Air 10/02/24 08:19 36.4 C L 112 H 19 126/66 98 Room Air 10/02/24 03:50 36.6 C 91 H 18 109/73 99 Room Air Laboratory Results Laboratory Results - last 48 hr 09/30/24 10/01/24 10/01/24 12:36 06:46 12:54 WBC 32.49 H* RBC 2.25 L Hgb 7.7 L Hct 24.0 L MCV 106.7 H MCH 34.2 H MCHC 32.1 RDW Std Deviation 65.0 H RDW Coeff of Jaye 16.8 H Plt Count 274 MPV 9.8 Immature Gran % (Auto) Neut % (Auto) Lymph % (Auto) [place] % (Auto) Eos % (Auto) Baso % (Auto) Neut # (Auto) Lymph # (Auto) [place] # (Auto) Eos # (Auto) Baso # (Auto) Immature Gran # (Auto) Polychromasia PT INR APTT PTT Ratio Sodium 134 L 132 L Potassium 4.7 5.5 H Chloride 102 100 Carbon Dioxide 24 23 Anion Gap 8 9 BUN 61 H 72 H Creatinine 2.08 H 2.83 H D Est Cr Clr Drug Dosing 41.9 30.8 eGFR 35.12 24.27 BUN/Creatinine Ratio 29.3 H 25.4 H Glucose 89 106 H Calcium 8.8 9.0 Magnesium 1.6 L Total Bilirubin AST ALT Alkaline Phosphatase Troponin I High Sens 62.4 H* Total Protein Albumin Globulin Albumin/Globulin Ratio Blood Type A Positive Antibody Screen POSITIVE A Antibody Identification Auto Cold Agglutinin Antibody ID Comment Crossmatch 10/01/24 10/01/24 10/01/24 12:54 12:54 15:56 WBC RBC Hgb Hct MCV MCH MCHC RDW Std Deviation RDW Coeff of Jaye Plt Count MPV Immature Gran % (Auto) Neut % (Auto) Lymph % (Auto) [place] % (Auto) Eos % (Auto) Baso % (Auto) Neut # (Auto) Lymph # (Auto) [place] # (Auto) Eos # (Auto) Baso # (Auto) Immature Gran # (Auto) Polychromasia PT INR APTT PTT Ratio Sodium 130 L Potassium 5.2 H Chloride 100 Carbon Dioxide 21 Anion Gap 9 BUN 76 H Creatinine 3.28 H D Est Cr Clr Drug Dosing 26.6 eGFR 20.33 BUN/Creatinine Ratio 23.2 H Glucose 137 H Calcium 8.9 Magnesium Total Bilirubin AST ALT Alkaline Phosphatase Troponin I High Sens Total Protein Albumin Globulin Albumin/Globulin Ratio Blood Type Antibody Screen Antibody Identification Auto Gil Agglutinin Anti-E Antibody ID Comment Cancelled Crossmatch See Detail 10/02/24 10/02/24 10/02/24 00:01 01:55 02:13 WBC 20.85 H RBC 2.20 L Hgb 7.5 L 7.5 L Hct 23.2 L 22.8 L MCV 105.5 H MCH 34.1 H MCHC 32.3 RDW Std Deviation 63.7 H RDW Coeff of Jaye 17.0 H Plt Count 262 MPV 10.0 Immature Gran % (Auto) 1.2 Neut % (Auto) 93.8 Lymph % (Auto) 0.5 [place] % (Auto) 4.5 Eos % (Auto) 0.0 Baso % (Auto) 0.0 Neut # (Auto) 19.54 H Lymph # (Auto) 0.11 L [place] # (Auto) 0.94 H Eos # (Auto) 0.00 Baso # (Auto) 0.01 Immature Gran # (Auto) 0.25 H Polychromasia 1+ PT INR APTT PTT Ratio Sodium 129 L Potassium 5.0 Chloride 98 Carbon Dioxide 21 Anion Gap 10 BUN 79 H Creatinine 3.50 H Est Cr Clr Drug Dosing 24.9 eGFR 18.81 BUN/Creatinine Ratio 22.6 H Glucose 131 H Calcium 8.6 Magnesium Total Bilirubin 1.7 H AST 18 ALT 13 Alkaline Phosphatase 60 Troponin I High Sens 361.7 H* D 361.0 H* Total Protein 7.2 Albumin 2.9 L Globulin 4.3 H Albumin/Globulin Ratio 0.7 L Blood Type Antibody Screen Antibody Identification Antibody ID Comment Crossmatch 10/02/24 10/02/24 06:16 07:37 WBC 20.29 H RBC 2.26 L Hgb 7.5 L Hct 23.7 L MCV 104.9 H MCH 33.2 MCHC 31.6 L RDW Std Deviation 64.5 H RDW Coeff of Jaye 16.9 H Plt Count 266 MPV 9.9 Immature Gran % (Auto) Neut % (Auto) Lymph % (Auto) [place] % (Auto) Eos % (Auto) Baso % (Auto) Neut # (Auto) Lymph # (Auto) [place] # (Auto) Eos # (Auto) Baso # (Auto) Immature Gran # (Auto) Polychromasia PT 12.6 H INR 1.2 H APTT 31 PTT Ratio 1.2 Sodium 128 L Potassium 5.0 Chloride 98 Carbon Dioxide 22 Anion Gap 8 BUN 80 H Creatinine 3.51 H Est Cr Clr Drug Dosing 25.0 eGFR 18.74 BUN/Creatinine Ratio 22.8 H Glucose 143 H Calcium 8.9 Magnesium 1.9 Total Bilirubin AST ALT Alkaline Phosphatase Troponin I High Sens Total Protein Albumin Globulin Albumin/Globulin Ratio Blood Type Antibody Screen Antibody Identification Antibody ID Comment Crossmatch Diagnostic Findings Microbiology 09/30/24 02:06 Blood Aerobic Blood Culture - Preliminary No growth in Aerobic bottle after 48 hours. 09/30/24 02:06 Blood Anaerobic Blood Culture - Preliminary No growth in Anaerobic bottle after 48 hours. 09/30/24 02:06 Blood Aerobic Blood Culture - Preliminary No growth in Aerobic bottle after 48 hours. 09/30/24 02:06 Blood Anaerobic Blood Culture - Preliminary No growth in Anaerobic bottle after 48 hours. Chest X-Ray 09/29/24 23:53 EXAM: XR chest 1V portable CLINICAL HISTORY: DYSPNEA JMF TECHNIQUE: An X-ray image of the chest is obtained in frontal projection. COMPARISON: 09/13/2024. FINDINGS: Pulmonary Parenchyma: Redemonstration of the hilar and pulmonary congestive lung changes/interstitial edema Newly depicted ill-defined opacity at the right lung base could represent the progression of the congestive lung changes/interstitial edema or superadded infection No evidence of pleural effusion or pleural thickening. Heart and Mediastinum: Stable cardiomegaly Bony Thorax: Bony thorax appears intact without fractures or deformities. Soft Tissues: Soft tissues overlying the chest wall are unremarkable. IMPRESSION: 1. Stable cardiomegaly. 2. Redemonstration of the hilar and pulmonary congestive lung changes/interstitial edema. 3. Newly depicted ill-defined opacity at the right lung base which could represent progression of the congestive lung changes/interstitial edema or superadded infection. Clinical correlation and follow up are advised. Electronically signed by Giuseppe Real 09-30-2024 01:11 AM Renal Ultrasound 10/01/24 10:50 US renal transplant w dop HISTORY: 63 years-old Male KRISSY acute kidney injury with a renal transplant COMPARISON: CT 06/27/2024, ultrasound 01/21/2024. TECHNIQUE: Multiple real-time sonographic images of the kidneys were obtained assessing grayscale appearance, color and spectral flow FINDINGS: Right moapa kidney measures 6.9 cm in length and the left measures 5.1 cm. Both of these kidneys are atrophic with cortical thinning and increased parenchymal echogenicity. No hydronephrosis. Right pelvic transplanted kidney redemonstrated measuring 11.9 x 5.7 x 5.8 cm demonstrating no hydronephrosis or suspicious mass lesion. Low resistance waveforms in the transplanted right renal artery with peak systolic velocities measuring up to 41 cm/s. Possible nonobstructing right renal calculus measuring 3 mm. Patent transplanted renal vein. Resistive indices measure up to 0.8. Decompressed bladder. IMPRESSION: 1. Unremarkable appearance of the right renal transplant. 2. No significant stenosis or occlusion within the right transplant renal artery. 3. Atrophic moapa kidneys. ACT 112: Negative or not required by law. The above report was generated using voice recognition software. It may contain grammatical, syntax or spelling errors. Electronically signed by: Darion Garcia M.D. 10/01/2024 3:40 PM Finger X-Ray 10/01/24 18:49 Clinical History: Swelling. Index finger infection 3 views of the right and a finger are submitted for review. Findings: There is some cortical and subcortical lucency involving the tuft of the index finger distal phalanx No subluxation or dislocation is seen. No other osseous abnormality is identified. There are no radiopaque foreign bodies. Impression: Possible osteomyelitis involving the tuft of the right index finger distal phalanx Electronically signed by Milton Mcgraw 10-01-2024 7:42 PM Hand X-Ray 10/01/24 18:49 Clinical History: Swelling. Index finger infection 6 views of the right hand are submitted for review. Findings: There is sclerosis and deformity of the lunate. This could be due to chronic avascular necrosis or an old fracture. No clear acute fracture is seen. There is some cortical and subcortical lucency involving the tuft of the index finger distal phalanx No subluxation or dislocation is seen. There is mild osteoarthritis of the thumb carpometacarpal joint. No other osseous abnormality is identified. There are no radiopaque foreign bodies. There are extensive vascular calcifications Impression: 1. Possible osteomyelitis involving the tuft of the right index finger distal phalanx 2. Sclerosis and deformity of the lunate that could be due to chronic avascular necrosis or old trauma Electronically signed by Milton Mcgraw 10-01-2024 7:28 PM Venous Doppler Study 10/01/24 18:49 EXAM: US venous doppler UE RT CLINICAL HISTORY: RT FOREARM AND HAND SWELLING. TECHNIQUE: Ultrasound examination of right upper extremity veins was performed in real-time and duplex. One or more of the following were performed- spectral analysis, resistive index, waveform analysis, and pulsed Doppler. COMPARISON: None. FINDINGS: An echogenic wall-adherent thrombus is seen within the right internal jugular vein with partial compressibility. Normal phasic, non-pulsatile, and spontaneous flow is noted in the right subclavian, axillary, brachial, basilic, antecubital, radial, and ulnar veins. Visualized veins of the right upper extremity demonstrate normal compressibility. No sonographic evidence of acute deep vein thrombosis (DVT) is detected in the visualized veins of the upper extremity. Compression and Augmentation: All evaluated veins compress fully with applied transducer pressure. Augmentation of venous flow is noted with distal compression. Additional Findings: The right cephalic vein is not visualized at the site of the IV line. Edema of the right anterior forearm is noted. IMPRESSION: 1. An echogenic wall-adherent thrombus is seen within the right internal jugular vein with partial compressibility. 2. The right cephalic vein is not visualized at the site of the IV line, most likely thrombosed. 3. Edema of the right anterior forearm is noted. 4. Please correlate clinically. Disclaimer: DVT could be missed early in the disease when clot burden is minimal. For patients with moderate and high pretest probability of DVT and negative ultrasound, the [employer] clinical guidelines recommend testing with a D-dimer assay or repeat ultrasound in 5-7 days. If symptoms worsen, the Society of radiologists in ultrasound recommends repeating ultrasound even earlier. Electronically signed by Giuseppe Real 10-02-2024 04:42 AM Medications Administered Home Medications Medication Instructions Recorded Confirmed Last Taken mycophenolate mofetil 250 mg 500 mg (2 x 250 mg) PO BID #360 05/29/20 09/30/24 09/12/24 capsule caps amoxicillin 500 mg capsule 2,000 mg PO DIRECTED PRN PRIOR 07/29/20 09/30/24 Unknown TO DENTAL PROCEDURES multivitamin 1 tab PO QAM 08/02/21 09/30/24 09/12/24 folic acid 1 mg tablet 1 mg PO BID #180 tabs 09/20/23 09/30/24 09/12/24 pantoprazole 40 mg tablet,delayed 40 mg PO BID #180 tabs 12/06/23 09/30/24 09/12/24 release calcium carbonate 500 mg PO QAM 01/21/24 09/30/24 09/12/24 ferrous sulfate 325 mg (65 mg 325 mg PO BID #60 tabs 02/05/24 09/30/24 09/12/24 iron) tablet metoprolol succinate 100 mg 100 mg PO HS #90 tabs 04/22/24 09/30/24 09/12/24 tablet,extended release 24 hr acyclovir 400 mg tablet 400 mg PO BID 05/07/24 09/30/24 09/12/24 ondansetron 4 mg disintegrating 4 mg PO Q8 PRN nausea #20 tabs 05/22/24 09/30/24 Unknown tablet magnesium oxide 500 mg PO BID 08/09/24 09/30/24 09/12/24 albuterol sulfate 90 mcg/actuation 2 inh inhalation Q6H PRN shortness 08/25/24 09/30/24 Unknown aerosol inhaler of breath or wheezing #8.5 grams tacrolimus 1 mg capsule, 1 - 2 mg PO UD 08/30/24 09/30/24 09/12/24 immediate-release danazol 200 mg capsule 200 mg PO BID 09/13/24 09/30/24 09/12/24 metoprolol succinate 25 mg 25 mg PO QAM #30 tabs 09/20/24 09/30/24 Unknown tablet,extended release 24 hr allopurinol 100 mg tablet 100 mg PO BID 09/24/24 09/30/24 Unknown prednisone 5 mg tablet 5 mg PO QDB 09/24/24 09/30/24 Unknown bumetanide 1 mg tablet 1 mg PO DAILY Fluid Retention #90 09/27/24 09/30/24 Unknown tabs levothyroxine 125 mcg tablet 125 mcg PO QAM #90 tabs 09/27/24 09/30/24 Unknown Active Medications Generic Name Dose Route Start Last Admin Trade Name Gavinoq PRN Reason Stop Dose Admin Acetaminophen 650 mg 09/30/24 03:37 09/30/24 11:26 Acetaminophen 325 Mg Tab PO 10/30/24 03:36 650 mg Q6H PRN Administration Pain & Pre PT Calcium Carbonate 1 tab 09/30/24 09:00 10/02/24 09:47 Calcium Carbonate 1250mg Tab PO 10/30/24 08:59 1 tab QAM ESTEFANI Administration Danazol 200 mg 09/30/24 09:00 10/02/24 09:46 Danazol 200 Mg Cap PO 10/30/24 08:59 200 mg BID ESTEFANI Administration Ferrous Sulfate 325 mg 09/30/24 08:00 10/02/24 09:47 Ferrous Sulfate 325 Mg Tab PO 10/30/24 07:59 325 mg BIDM ESTEFANI Administration Folic Acid 1 mg 09/30/24 09:00 10/02/24 09:46 Folic Acid 1 Mg Tab PO 10/30/24 08:59 1 mg BID ESTEFANI Administration Doxycycline Hyclate 100 mg/ 100 mls @ 50 mls/hr 09/30/24 12:00 10/02/24 11:13 Dextrose IV 10/05/24 11:59 50 mls/hr Q12H ESTEFANI Administration Hydrocortisone Sodium 1 mls @ 4 mls/min 09/30/24 22:15 10/02/24 05:56 Succinate 50 mg/ Syringe IV 10/30/24 22:14 4 mls/min Q8H ESTEFANI Administration Immune Globulin 200 mls @ 64.8 mls/hr 10/01/24 14:00 10/01/24 23:20 Octagam 10% IV 10/02/24 20:06 Infused TODAY@1400,1500,1600,1700 ESTEFANI Titration Protocol 1 MG/KG/MIN Heparin Sodium/Dextrose 25,000 units in 500 mls @ 29 mls/hr 10/02/24 06:30 10/02/24 07:38 Heparin Sodium/Dextrose IV 11/01/24 06:29 1,450 units/hr .[id number] ESTEFANI 29 mls/hr Administration Protocol 1,450 UNITS/HR Daptomycin 500 mg/ Syringe 10 mls @ 5 mls/min 10/02/24 06:15 10/02/24 06:33 IV 11/13/24 06:14 5 mls/min Q48H ESTEFANI Administration Protocol Levothyroxine Sodium 125 mcg 09/30/24 06:30 10/02/24 05:56 Levothyroxine Sodium 125 Mcg Tablet PO 10/30/24 06:29 125 mcg DAILYBB ESTEFANI Administration Magnesium Oxide 400 mg 09/30/24 09:00 10/02/24 09:47 Magnesium Oxide 400 Mg Tab PO 10/30/24 08:59 400 mg BID ESTEFANI Administration Metoprolol Succinate 100 mg 09/30/24 21:00 10/01/24 22:53 Metoprolol Succ 50mg Ext Rel Tab PO 10/30/24 20:59 Not Given HS ESTEFANI Metoprolol Succinate 25 mg 09/30/24 09:00 10/02/24 09:46 Metoprolol Succ 25mg Ext Rel Tab PO 10/30/24 08:59 25 mg QAM ESTEFANI Administration Multivitamins 1 tab 09/30/24 09:00 10/02/24 09:46 Multivitamin Tab PO 10/30/24 08:59 1 tab QAM ESTEFANI Administration Mycophenolate Mofetil 500 mg 09/30/24 09:00 10/02/24 09:46 Mycophenolate Mofetil 250 Mg Cap PO 10/30/24 08:59 500 mg BID ESTEFANI Administration Ondansetron HCl 4 mg 09/30/24 13:06 10/01/24 07:47 Ondansetron Inj 2 Mg/Ml 2 Ml Vial IV 10/30/24 13:05 4 mg Q6H PRN Administration Nausea And Vomiting Pantoprazole Sodium 40 mg 09/30/24 09:00 10/02/24 09:46 Pantoprazole 40 Mg Tab PO 10/30/24 08:59 40 mg BID ESTEFANI Administration Prednisone 5 mg 09/30/24 07:30 09/30/24 06:35 Prednisone 5 Mg Tab PO 10/30/24 07:29 5 mg QDB ESTEFANI Administration Sodium Zirconium Cyclosilicate 10 gm 10/01/24 11:00 10/02/24 10:58 Sodium Zirconium Cyclosilicate 10 Gm Packet PO 10/31/24 10:59 10 gm DAILY@1100 ESTEFANI Administration Tacrolimus 2 mg 09/30/24 09:00 10/02/24 09:46 Tacrolimus 1 Mg Cap PO 10/30/24 08:59 2 mg QAM ESTEFANI Administration Tacrolimus 1 mg 09/30/24 21:00 10/01/24 22:20 Tacrolimus 1 Mg Cap PO 10/30/24 20:59 1 mg HS ESTEFANI Administration
[2024-10-02] MEDS: CEFEPIME 1000MG 1,000 MG/10 ML SYR IV SCH (13:19)
--- NOTE | 2024-10-02 17:42 | Hospitalist Progress Note ---
Date of Service October 02, 2024 Assessment & Plan (1) Rhinovirus infection: (2) Pneumonia: (3) Acute kidney injury: (4) Acute on chronic heart failure with preserved ejection fraction (HFpEF): (5) Acute DVT (deep venous thrombosis): Plan 63-year-old male with past medical history significant for HFpEF, A-fib, ESRD, warm autoimmune hemolytic anemia, ESRD s/p renal transplant now with CKD stage III-IV, presents with increased dizziness, weakness, fatigue, and worsening shortness of breath after exertion. Symptom onset ~ 3 days ago but acutely worsening the day of arrival. Has been having increased swelling to BLE, BNP elevated in the 500s which is increased from his baseline. #Entero/Rhinovirus/Sepsis with shock/Adrenal insufficiency-With associated N/V and significant hypotension on admission. With leukocytosis, minimally elevated procalcitonin, and CXR w/ newly ill-defined of R lung base. Leukocytosis worsened secondary to stress to steroids and now coming down -continue treating for PNA with Cefepime, doxycycline -Blood pressures improved with stress dose steroids with IV hydrocortisone- continue and start to wean tomorrow -Supportive care; acetaminophen prn for fever/pain -Not on supplemental O2 -Follow chest imaging to resolution #KRISSY/CKD stage 4/Status-post renal transplant/Hyperkalemia-with h/o FSGS + renal transplant 2009, follows with nephrology, most recent visit 09/27/24; Cr baseline 1.3-1.4; On CellCept + Prograf (trough 4-7). Note from last nephrology visit w/ following adjustments- Holding lisinopril, resumed bumex at that time. Received 1 dose of IV Lasix and 1 dose of Bumex 2 Mg p.o. x 1 on admission which was then held for significant hypotension UA cloudy, 1+ protein, trace ketones, 1+ bilirubin, trace LE, hyaline cast, epithelial cells, and granular casts Cr increased to 1.86 on admission, BUN elevated to 42 on admission and now up further to 3.5 and with worsening urine output overnight With significant hypervolemia here Appreciate nephrology consultation -Give Bumex 1 Mg IV x 1 today and follow for further need/tolerance of diuresis. No need for urgent dialysis -Follow BMP, urine output, volume status #Warm autoimmune hemolytic anemia-Dx Jul 2023; Follows with hematology most recent visit 08/20/2024; IVIG; Velcade, danazol Hgb down to 7.5 and stable from yesterday, d/w his [employer] who recommended IVIG and PRBC transfusion -Ordered both but PRBCs delayed due to needing blood from central blood bank in [place]-finally got PRBCs on 10/02 x 1 unit -Continue second day of IVIG 1 g/KG -Continue acyclovir but decrease dose for renal dosing -Continue iron supplement and folic acid -continue danazol -Follow CBC #Right hand swelling/Right index finger infection-possible OM/Right IJ DVT-right hand with significant swelling, not coming from IV site, concern for DVT in RUE and also for old infection in finger with skin at the fingertip xray of right hand and finger shows possible osteomyelitis of the distal tuft of index finger-seen by orthopedics and no surgical intervention needed for finger, suspects gout in wrist and suggest steroids versus NSAIDs-with CKD avoid NSAIDs and is already on steroids RUE venous Doppler shows thrombus in the right internal jugular vein-start heparin drip and follow antiXA levels-eventually convert to DOAC -Continue cefepime and daptomycin for possible osteomyelitis -Consult ID-recommends MRI of the hand and bone biopsy of finger-it seems orthopedics is deferring surgical intervention-will await MRI results -Continue elevation of hand for swelling and pain control # Acute on chronic HFpEF-p/w worsening STOCK, weakness, and feeling as though he is "filling with fluid"; Volume overloaded on exam w/ 2+ pitting edema BLE, increase in baseline per patient. Minimal crackles in lung field bases, increased STOCK per patient. He has also increased from his prior admission (100.7 kg to 109 kg). Echo 07/14 LVEF 55 to 60%, RV mildly dilated, RA severely dilated, LA moderately dilated, mild AR, mild MR, RVSP 30 to 40 mmHg, mild concentric LVH noted, LV systolic function normal. BNP 597. CXR with infiltrate and CHF changes as above Gave IV lasix and increased po bumex as above but developed worsening KRISSY -Given low urine output and worsening hypervolemia-give Bumex 1 Mg IV x 1 on 10/02 -Continue Daily weights, I+Os; Low-sodium, fluid restricted diet (1800mL) -With flushing and chest pressure on the evening of 09/30-initially with myocardial demand ischemia with Troponin 48.1,50, 62, but then troponin now up to 361 but stable on repeat-likely from KRISSY -ECG with some lateral ST depressions mild change from previous, but chest pain resolved -holding metoprolol due to hypotension -Follow BMP, magnesium, replace electrolytes as needed #A-fib, permanent, rate mildly elevated as unable to give metoprolol due to hypotension Previous history of Afib, DOAC deferred 2/2 acute anemia in past, previous tolerance of Xarelto no current anticoag, but now on heparin drip for DVT -continue to hold metoprolol for parameters -continue tele monitoring -Will likely resume Xarelto for DVT as well as A-fib #Sleep apnea- No CPAP at baseline #GERD- Protonix #Gout- Allopurinol #Hypothyroidism- Levothyroxine Dispo: continued stay PCU VTE Prophylaxis: SCDs Admission and Anticipated Discharge Date Admission Date: September 30, 2024 Subjective Right hand still painful but slightly less swollen with elevation. No chest pain or shortness of breath but had some flushed feeling across his chest and face last night while getting IVIG which was stopped. Elevated troponin but did not continue to go up. I discussed his care with nephrology, oncology, and infectious disease Telemetry A-fib with rates in the low 100s Physical Exam Constitutional: WD/WN, vitals as above Respiratory: normal respiratory effort, lungs clear to auscultation Cardiovascular: Rate/Rhythm: regular rate and + irregularly irregular Extremities: + edema (2+ pitting edema legs/feet bilat,right hand 1+ nonpitting/improved) Gastrointestinal (Abdomen): normal bowel sounds, soft, nontender, no hepatosplenomegaly Musculoskeletal: Extremities: + extremities abnormal to inspection (right index finger skin yellow color,hard,erythematous finger) Psychiatric: A+Ox3, euthymic affect Results & Data Results & Data Vital Signs (Past 12 Hours) Vital Signs Temp Pulse Pulse Resp BP BP Pulse Ox 10/02/24 17:35 36.4 C L 96 H 20 113/48 L 96 10/02/24 16:50 36.3 C L 107 H 20 104/50 L 97 10/02/24 15:50 36.4 C L 108 H 20 111/56 L 98 10/02/24 15:00 109 H 10/02/24 14:50 36.3 C L 111 H 20 112/76 10/02/24 14:20 36.4 C L 95 H 18 102/58 L 10/02/24 14:05 36.4 C L 104 H 18 97/48 L 97 10/02/24 13:49 36.4 C L 103 H 20 125/74 95 10/02/24 11:25 110 H 10/02/24 10:44 36.4 C L 104 H 18 156/78 H 100 10/02/24 08:19 36.4 C L 112 H 19 126/66 98 O2 Del Method 10/02/24 17:35 10/02/24 16:50 10/02/24 15:50 10/02/24 15:00 10/02/24 14:50 10/02/24 14:20 10/02/24 14:05 10/02/24 13:49 10/02/24 11:25 10/02/24 10:44 Room Air 10/02/24 08:19 Room Air Laboratory Results CBC, BMP, magnesium, PT/PTT/INR, troponin reviewed ECG Additional Comments: ECG on 10/01/2024 at 2337 with atrial fibrillation, rate 95, RBBB, mild downsloping ST depression lateral leads change from previous PG Care Time/CCT Total # of Minutes Spent Total Time Spent with Patient: Total time spent is greater than 50% in coordination of care (as documented) at patient's floor/unit and/or counseling patient: Coding Level of Care Code 89921 SUB INP/OBS CARE 3/50MIN Diagnoses Rhinovirus infection B34.8 Pneumonia J18.9 Laterality: left Lung location: lower lobe of lung Pneumonia type: due to unspecified organism Acute kidney injury N17.9 Acute on chronic heart failure with preserved ejection fraction (HFpEF) I50.33 Acute DVT (deep venous thrombosis) I82.409 (2) Pneumonia Laterality: left Lung location: lower lobe of lung Pneumonia type: due to unspecified organism Qualified Code(s): J18.9 - Pneumonia, unspecified organism
--- NOTE | 2024-10-02 17:53 | Oncology Consultation ---
Date of Consultation October 02, 2024 Assessment & Plan (1) Warm autoimmune hemolytic anemia: Transfuse to maintain hemoglobin greater than 8 g/dL given the underlying cardiac comorbidities and ongoing viral infection 1 g/kg IVIG is absolutely okay monitor CBC regularly will resume outpatient Velcade Plan thank you for this interesting hematological consult, hematology will continue to follow the patient make appropriate recommendations. History of Present Illness Reason for Consultation: Warm autoimmune hemolytic anemia s/p kidney transplant viral pneumonia Attending Physician: Alejandrina Yusuf MD History of Present Illness Warm AIHA Diagnosis: 07/2023 Treatment: Prednisone 60 mg PO daily tapered; currently on 5 mg PO daily dose Latest Hb; 09/02/2024: 7.6 gm/dl with macrocytosis High-dose prednisone Rituximab, day 1 05/02/2022 followed by rituximab every 2 months IVIG High-dose Cytoxan x 2 Current treatment: Maintenance bortezomib 1.3 mg/m q. 2 weeks IVIG every 2 weekly as needed blood transfusion to maintain hemoglobin greater than 8 CT Chest diagnostic; 10/25/2023: 11 mm irregular groundglass nodule within the right lung apex. Interval development of a mild subacute superior endplate compression fracture at T12 vertebrae. Irregular soft tissue density portion of the left adrenal gland. Aneurysmal dilatation of the thoracic aorta. EGD; 09/13/2023: Squamocolumnar mucosa with reactive changes and intestinal metaplasia consistent with Rosales's esophagus. Gastric cardia type mucosa. Negative for malignancy and dysplasia CT Abdomen pelvis without contrast; 07/05/2023: Progressive infiltrative soft tissue attenuating foci throughout the r etroperitoneuam and mesentry. Lymphoproliferative disorder is the diagnosis of exclusion. CT chest abdomen pelvis, 06/27/2024 IMPRESSION: 1. A 10 mm groundglass nodule at the right apex has not appreciably changed. A small adenomatous lesion is not excluded. Continued attention at follow-up is recommended. 2. No new or enlarging pulmonary lesion is seen. 3. Cardiomegaly. 4. There is no airspace consolidation typical for pneumonia or pleural effusion. 5. Splenomegaly. 6. The appearance of the liver suggests early morphologic changes of cirrhosis. 7. Numerous irregular lesions scattered throughout the retroperitoneum and peritoneum have continued to modestly decreased in size as compared to 01/19/2024. The appearance favors a lymphoproliferative disorder. Correlate with the oncological history. 8. Mildly enlarged mediastinal lymph nodes are nonspecific but new from 01/19/2024. These may be reactive. Continued attention at follow-up is recommended. No additional enlarged lymph nodes are seen. 9. Moderate hiatal hernia. 10. Colonic diverticulosis without CT evidence of acute diverticulitis. 11. A right pelvic renal transplant is again noted. There is no hydronephrosis. 12. Aneurysmal dilatation of the ascending thoracic aorta is unchanged. This measures up to 4.8 cm. 13. Additional findings as above. Outside bone marrow biopsy, 2022: No evidence of malignancy Bone marrow biopsy, 01/12/2024: FINAL DIAGNOSIS Peripheral blood, bone marrow aspiration, core biopsy and clot section: - Mildly hypercellular marrow (60-70%) with trilineage hematopoiesis - Erythroid hyperplasia and red cell agglutination - No evidence of myelodysplasia at 1042. Mr. Mandel is my very pleasant 63-year-old gentleman, who I have the pleasure of following over the last 1-1/2 years. I first encountered him in July 2023 when he was admitted to the hospital with a baseline hemoglobin of 7.6 g/dL. Incidentally he has a history of kidney transplant and and he is on immunosuppressive medications. When I first saw him in 2022 we performed a Tawanna test which was positive. We also performed a couple of bone marrow biopsies which were negative for any underlying myelodysplastic syndrome. Over the last three months he has been in and out of the hospital Due to different comorbidities including viral pneumonia, worsening A-fib with RVR. His last peripheral smear from July 2024 revealed macrocytic anemia, leukocytosis and thrombocytopenia. Currently the patient is admitted in the hospital viral pneumoni. He has an ongoing rhinovirus infection. He also has DVT of the right jugular vein. Hematology has been consulted to assist in management of this patient with hemolytic anemiaa Allergies Allergy/AdvReac Type Severity Reaction Status Date / Time clopidogrel [From Plavix] Allergy Unknown Unknown Verified 09/27/24 15:34 Pbyhqru-QPA-XpS Reductase AdvReac Intermediate myalgias Verified 09/27/24 15:34 Inhibitor [Ctyyzni-Fnl-Ged Reductase Inhibitor] Home Medications Medication Instructions Recorded Confirmed Type mycophenolate mofetil 250 mg 500 mg (2 x 250 mg) PO BID #360 05/29/20 09/30/24 Rx capsule caps amoxicillin 500 mg capsule 2,000 mg PO DIRECTED PRN PRIOR 07/29/20 09/30/24 History TO DENTAL PROCEDURES multivitamin 1 tab PO QAM 08/02/21 09/30/24 History folic acid 1 mg tablet 1 mg PO BID #180 tabs 09/20/23 09/30/24 Rx pantoprazole 40 mg tablet,delayed 40 mg PO BID #180 tabs 12/06/23 09/30/24 Rx release calcium carbonate 500 mg PO QAM 01/21/24 09/30/24 History ferrous sulfate 325 mg (65 mg 325 mg PO BID #60 tabs 02/05/24 09/30/24 Rx iron) tablet metoprolol succinate 100 mg 100 mg PO HS #90 tabs 04/22/24 09/30/24 Rx tablet,extended release 24 hr acyclovir 400 mg tablet 400 mg PO BID 05/07/24 09/30/24 History ondansetron 4 mg disintegrating 4 mg PO Q8 PRN nausea #20 tabs 05/22/24 09/30/24 Rx tablet magnesium oxide 500 mg PO BID 08/09/24 09/30/24 History albuterol sulfate 90 mcg/actuation 2 inh inhalation Q6H PRN shortness 08/25/24 09/30/24 Rx aerosol inhaler of breath or wheezing #8.5 grams tacrolimus 1 mg capsule, 1 - 2 mg PO UD 08/30/24 09/30/24 History immediate-release danazol 200 mg capsule 200 mg PO BID 09/13/24 09/30/24 History metoprolol succinate 25 mg 25 mg PO QAM #30 tabs 09/20/24 09/30/24 Rx tablet,extended release 24 hr allopurinol 100 mg tablet 100 mg PO BID 09/24/24 09/30/24 History prednisone 5 mg tablet 5 mg PO QDB 09/24/24 09/30/24 History bumetanide 1 mg tablet 1 mg PO DAILY Fluid Retention #90 09/27/24 09/30/24 Rx tabs levothyroxine 125 mcg tablet 125 mcg PO QAM #90 tabs 09/27/24 09/30/24 Rx Patient History Medical History Hx of sepsis due to pneumonia, ~07/26/24, hospitalized at [facility] Erosive esophagitis hx, EGD 08/2023 History of Clostridioides difficile infection dx 09/14/24, [facility]; 09/24/24, per pt, "will be finishing abx in next day or so" CKD (chronic kidney disease) f/u co nephrology Bilateral leg edema "has some, has gotten better" Hx of adrenal insufficiency Hx of right bundle branch block f/u co cardiology History of recent hospitalization pt admitted to [facility] multiple times over 2023 (01/21/24, 05/2024-sx, 07/13/24, 07/26/24, 08/22/24, 08/24/24); most recent visit 08/24/24 per records " 63-year-old male with past medical history significant for HFpEF, A-fib, ESRD, WAHA, and additional chronic medical conditions who is presenting for sudden onset of chest pain with shortness of breath after exertion following eating out at [employer] followed by increased activity with cutting wood and developed chest pain. CXR with evidence for volume overload and was provided IV Lasix last nitro on admission with improvement/resolution of symptoms. Also with KRISSY that was likely due to hypotension/hypoperfusion and increased diuretic use recently; improving. Also with A-fib RVR, suspect due to increased salt load/increased activity/untreated CHERELLE." Rhinovirus infection Hypomagnesemia Hx of gout Hx of congestive heart failure Sleep apnea, obstructive no device Hypocalcemia hx Weakness Elevated troponin hx, 07/2024; f/u co cardiology Atrial fibrillation with rapid ventricular response controlled w/ metoprolol; f/u co cardiology Hypotension pt unaware? 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 Abdominal aortic aneurysm 4.9 cm on 01/2023 chest CTA; monitoring History of colon polyps Retroperitoneal mass lesion biopsy negative for malignancy 05/2022 per transplant record 03/17/23 Pneumonia hx, ~08/23/24 Adrenal nodule monitored by PCP Arthritis On prednisone therapy Rosales's esophagus with esophagitis Atrial flutter hx 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 Thoracic ascending aortic aneurysm 4.[address] 01/19/24 Hypertension controlled, stable per pt Limb alert care status left arm restriction History of blood transfusion ~07/2024 Hx of herpetic maria History of COVID-19 07/2020- covid pneumonia, hospitalized; resolved History of renal dialysis prior to kidney transplant; has dialysis fistula left arm History of CVA (cerebrovascular accident) 2008, mild memory changes Surgical History History of total right hip arthroplasty [facility] [place] [facility] [place] [place] History of esophagogastroduodenoscopy (EGD) Hx of cholecystectomy Hx of exploratory laparotomy History of colonoscopy Family History Grandmother (Maternal) Alzheimer disease Mother Depression Denies family history of Ovarian cancer Prostate cancer Diabetes Heart disease Myocardial infarction Breast cancer Lung cancer COPD (chronic obstructive pulmonary disease) Colorectal cancer Hypertension Stroke Social History Smoking Status: Never smoker Second Hand Exposure: No; Do You Dip or Chew Tobacco: No; Tobacco Cessation Education Requested by Patient: No Hx Alcohol Use: No Hx Substance Use: No 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: Chinese Communication Ability: Effective Visual Impairment: No Limitations Hearing Ability: Normal Countersinker Required: No Beliefs That Will Affect Care: None marital status: Current Living Situation: Spouse current occupational status: employed current occupation: [employer] How many Children do You have: 1 Other Information That Helps Us Care for You: No Feels Safe at Home: Yes Safety Concerns: Feels Safe At This Time Childhood Exposure to Second-Hand Smoke: No Dental Care, Regularly: Yes Seatbelt Use: sometimes Sunscreen Use: No Assistive Devices: Cane and Walker Review of Systems Review of Systems: All systems reviewed & are unremarkable except as noted in HPI & below Constitutional: as per Subjective / HPI Eyes: as per Subjective / HPI Ear, Nose, Mouth, Throat: as per Subjective / HPI Respiratory: as per Subjective / HPI Cardiovascular: as per Subjective / HPI Gastrointestinal: as per Subjective / HPI Genitourinary: + as per Subjective / HPI Musculoskeletal: as per Subjective / HPI Integumentary: as per Subjective / HPI Neurologic: as per Subjective / HPI Psychiatric: as per Subjective / HPI Results & Data Vital Signs (Past 12 Hours) Vital Signs Temp Pulse Pulse Resp BP BP Pulse Ox 10/02/24 17:35 36.4 C L 96 H 20 113/48 L 96 10/02/24 16:50 36.3 C L 107 H 20 104/50 L 97 10/02/24 15:50 36.4 C L 108 H 20 111/56 L 98 10/02/24 15:00 109 H 10/02/24 14:50 36.3 C L 111 H 20 112/76 10/02/24 14:20 36.4 C L 95 H 18 102/58 L 10/02/24 14:05 36.4 C L 104 H 18 97/48 L 97 10/02/24 13:49 36.4 C L 103 H 20 125/74 95 10/02/24 11:25 110 H 10/02/24 10:44 36.4 C L 104 H 18 156/78 H 100 10/02/24 08:19 36.4 C L 112 H 19 126/66 98 O2 Del Method 10/02/24 17:35 10/02/24 16:50 10/02/24 15:50 10/02/24 15:00 10/02/24 14:50 10/02/24 14:20 10/02/24 14:05 10/02/24 13:49 10/02/24 11:25 10/02/24 10:44 Room Air 10/02/24 08:19 Room Air
[2024-10-02 19:02] LABS: ANTI-Xa, UFH(UnfractionatedHep 0.11 IU/ml (0.3-0.7)
[2024-10-02] MEDS: ACYCLOVIR 400 MG TAB PO SCH (20:39)
[2024-10-03 03:12] LABS: Hematocrit (blood only) 24.6 % (42.0-52.0); Mean Corpuscular Hemoglobin 33.2 pg (25.0-34.0); Mean Corpuscular Hgb Conc 32.5 g/dL (32.0-36.0); Mean Corpuscular Volume 102.1 fL (80.0-100.0); Mean Platelet Volume 10.2 fL (9.4-12.4); Platelet Count 248 K/uL (130-400); RDW Coefficient of Variation 17.9 % (11.5-14.5); RDW Standard Deviation 66.5 fL (36.4-46.3); Red Blood Count 2.41 M/uL (4.70-6.10); White Blood Count 15.33 K/ul (4.8-10.8)
[2024-10-03 03:34] LABS: Alanine Aminotransferase 18 U/L (7-52); Albumin Globulin Ratio 0.6 (0.9-2); Albumin Level 2.9 gm/dl (3.4-5.0); Alkaline Phosphatase 59 U/L (34-104); Anion Gap 9 (3-11); BUN Creatinine Ratio 22.9 (10-20); Bilirubin,Total 1.2 mg/dl (0.2-1.0); Blood Urea Nitrogen 80 mg/dl (6-23); C Reactive Protein 25.18 mg/dl (0-0.5); Calcium 8.5 mg/dl (8.6-10.3); Carbon Dioxide 20 mmol/L (21-32); Chloride 94 mmol/L (98-107); Creatinine Clr Calc Pharmacy 25.2 ml/min; Globulin 4.7 gm/dl (2.5-4.0); Glucose 150 mg/dl (70-99(Fasting)); Sodium 123 mmol/L (136-145); Total Protein 7.6 gm/dl (6.0-8.3)
[2024-10-03 03:37] LABS: Immature Granulocytes # (auto) 0.14 K/uL (0.01-0.20); Immature Granulocytes % (auto) 0.9 %; Lymphocytes % (auto) 0.7 %; Monocytes # (auto) 0.65 K/uL (0.11-0.59); Monocytes % (auto) 4.2 %; Neutrophils # (auto) 14.44 K/uL (1.40-6.50); Neutrophils % (auto) 94.2 %; Polychromasia 1+
[2024-10-03 04:56] LABS: Potassium 4.6 mmol/L (3.5-5.1)
[2024-10-03 05:02] LABS: ANTI-Xa, UFH(UnfractionatedHep 0.15 IU/ml (0.3-0.7)
[2024-10-03] MEDS: HEPARIN IV BOLUS 3,000 UNITS in SYRINGE 0 ML IV ONE (05:56)
[2024-10-03] MEDS: allopurinoL 100 MG TAB PO SCH (08:56)
[2024-10-03] MEDS: HYDROCORTISONE SOD 25 MG in SYRINGE 0 ML IV SCH (08:59)
--- NOTE | 2024-10-03 10:37 | Nephrology Progress Note ---
Date of Service October 03, 2024 Assessment & Plan (1) Acute on chronic heart failure with preserved ejection fraction (HFpEF): Plan: Goal is to try to maintain slightly negative fluid balance. Document strict I/O's. Daily fluid restriction reduced to 1.2 L. Suggest an additional 1 mg IV Bumex this AM. (2) Acute kidney injury: Plan: UOP improving -- not completely documented. Creatinine starting to plateau. Electrolytes acceptable. Continue Lokelma daily for now. Clinical presentation consistent with ATN with potentially superimposed injury related to hemodynamic changes and IVIG infusion. Transfusion support PRN to maintain Hgb >8. Thankfully, there is no emergent indication for [employer] at this time. Urine microscopy acellular. Otherwise notable for hyaline and granular casts. Transplant US reviewed. No obstruction. Transplant artery patent. Allopurinol dose reduced to 100 mg daily this AM. Acyclovir reduced to 200 mg twice daily. Medications are otherwise appropriate for kidney function. Monitor CK on daptomycin. Repeat serum metabolic profile tomorrow AM. (3) Kidney transplant status, living unrelated donor: Plan: Baseline creatinine 1.9-2.3 mg/dL. Continue MMF + tacrolimus as Rx. (4) Rhinovirus infection: (5) Infiltrate of lower lobe of right lung present on imaging study: Plan: Follow up imaging to be coordinated s/p diuresis and treatment for respiratory infection. (6) Infection of finger: Plan: X-ray concerning for osteomyelitis. Antibiotic therapy has been switched to cefepime + daptomycin. Ortho consult completed. MRI pending. ID following. (7) Warm autoimmune hemolytic anemia: Plan: Appreciate hematology consultation. IVIG completed remains on hydrocortisone. 1 u PRBC transfusion support provided yesterday. Admission and Anticipated Discharge Date Admission Date: September 30, 2024 Subjective No acute events overnight. Completed IVIG. No additional chest pain. Denies palpitations. Gumaro states that he feels reasonably better this AM. He describes increased urine output. UOP is not fully documented. He is breathing comfortably. Appetite is poor. No fevers or chills. Continues to report notable pain and discomfort in the right hand. Review of Systems Review of Systems: All systems reviewed & are unremarkable except as noted in HPI & below Physical Exam Constitutional: well developed; no acute distress Eyes: + anicteric sclerae ENMT: Mouth: no oral mucosal abnormality and oral mucous membranes not dry (slightly) Neck: normal visual inspection, trachea midline and + thick neck Respiratory: normal respiratory effort; not tachypneic Auscultation: lungs clear to auscultation bilaterally and + rales Cardiovascular: Rate/Rhythm: + irregularly irregular Heart Sounds: normal S1 and normal S2 Extremities: + edema (+1 pitting BL LE edea) Musculoskeletal: Extremities: no cyanosis and no clubbing Skin: no rashes and no jaundice Neurologic: Motor/Sensory: no tremor and no asterixis Psychiatric: Orientation: alert and oriented x 3 Results & Data Vital Signs (Past 12 Hours) Vital Signs Temp Pulse Resp BP Pulse Ox O2 Del Method 10/03/24 08:41 36.3 C L 89 18 155/58 H 96 Room Air 10/03/24 03:13 36.7 C 72 18 112/68 93 Room Air 10/02/24 23:09 36.6 C 75 18 116/60 95 Room Air Laboratory Results Laboratory Results - last 24 hr 10/01/24 10/01/24 10/01/24 12:54 12:54 12:54 WBC RBC Hgb Hct MCV MCH MCHC RDW Std Deviation RDW Coeff of Jaye Plt Count MPV Immature Gran % (Auto) Neut % (Auto) Lymph % (Auto) [place] % (Auto) Eos % (Auto) Baso % (Auto) Neut # (Auto) Lymph # (Auto) [place] # (Auto) Eos # (Auto) Baso # (Auto) Immature Gran # (Auto) Polychromasia ESR Heparin Anti-Xa, Unfract Sodium Potassium Chloride Carbon Dioxide Anion Gap BUN Creatinine Est Cr Clr Drug Dosing eGFR BUN/Creatinine Ratio Glucose Calcium Magnesium Total Bilirubin AST ALT Alkaline Phosphatase C-Reactive Protein Total Protein Albumin Globulin Albumin/Globulin Ratio Blood Type A Positive Antibody Screen POSITIVE A Antibody Identification Auto Cold Agglutinin Auto Gil Agglutinin Anti-E Antibody ID Referred Antibody ID Comment Cancelled Crossmatch See Detail 10/02/24 10/03/24 10/03/24 18:29 02:35 04:05 WBC 15.33 H RBC 2.41 L Hgb 8.0 L Hct 24.6 L MCV 102.1 H MCH 33.2 MCHC 32.5 RDW Std Deviation 66.5 H RDW Coeff of Jaye 17.9 H Plt Count 248 MPV 10.2 Immature Gran % (Auto) 0.9 Neut % (Auto) 94.2 Lymph % (Auto) 0.7 [place] % (Auto) 4.2 Eos % (Auto) 0.0 Baso % (Auto) 0.0 Neut # (Auto) 14.44 H Lymph # (Auto) 0.10 L [place] # (Auto) 0.65 H Eos # (Auto) 0.00 Baso # (Auto) 0.00 Immature Gran # (Auto) 0.14 Polychromasia 1+ ESR 81 H Heparin Anti-Xa, Unfract 0.11 L Cancelled 0.15 L Sodium 123 L Potassium TNP 4.6 Chloride 94 L Carbon Dioxide 20 L Anion Gap 9 BUN 80 H Creatinine 3.49 H Est Cr Clr Drug Dosing 25.2 eGFR 18.87 BUN/Creatinine Ratio 22.9 H Glucose 150 H Calcium 8.5 L Magnesium 2.0 Total Bilirubin 1.2 H AST TNP 23 ALT 18 Alkaline Phosphatase 59 C-Reactive Protein 25.18 H Total Protein 7.6 Albumin 2.9 L Globulin 4.7 H Albumin/Globulin Ratio 0.6 L Blood Type Antibody Screen Antibody Identification Antibody ID Referred Antibody ID Comment Crossmatch PG Care Time/CCT Total # of Minutes Spent Total Time Spent with Patient: Total time spent is greater than 50% in coordination of care (as documented) at patient's floor/unit and/or counseling patient: Coding Level of Care Code 90818 SUB INP/OBS CARE 3/50MIN Diagnoses Acute on chronic heart failure with preserved ejection fraction (HFpEF) I50.33 Acute kidney injury N17.9 Kidney transplant status, living unrelated donor Z94.0 Rhinovirus infection B34.8 Infiltrate of lower lobe of right lung present on imaging study R91.8 Infection of finger L08.9 Warm autoimmune hemolytic anemia D59.11
[2024-10-03] MEDS: BUMETANIDE 1 MG in SYRINGE 0 ML IV ONE (12:27)
[2024-10-03] MEDS: SODIUM BICARBONATE 650 MG TAB PO SCH (12:27)
--- NOTE | 2024-10-03 12:35 | Magnetic Resonance Report ---
MR hand RT wo con CLINICAL HISTORY: right hand swelling,index finger ?OM on xray TECHNIQUE: Multisequence, multiplanar MR images of the right hand were obtained without contrast COMPARISON: Comparison is made to abdomen radiograph 10/01/2024 FINDINGS: No evidence of acute fracture. No bony edema is seen. No joint effusion is seen. Diffuse soft tissue edema is seen. No drainable fluid collection. IMPRESSION: Diffuse soft tissue edema compatible with cellulitis without evidence of abscess or osteomyelitis. ACT 112: Negative or not required by law. Electronically signed by: Chris Serra M.D. 10/03/2024 12:32 PM
[2024-10-03 13:02] LABS: ANTI-Xa, UFH(UnfractionatedHep < 0.10 IU/ml (0.3-0.7)
[2024-10-03] MEDS: HEPARIN SOD (PORCINE) 1000 UNIT/ML IV ONE (13:45)
--- NOTE | 2024-10-03 16:18 | Infectious Disease Progress Nt ---
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 He presented on 09/29 with increased weakness, fatigue, body aches and bilateral lower extremity edema. He reported feeling feverish at home [place] that he was retaining fluid. Endorsed dyspnea on exertion. Denied chest pain, nausea, vomiting, diarrhea, sweats, headache change in urinary habits. In the ED, temp 37.2, pulse 114, RR 20, BP 120/71, O2 sats 97% on room air. Labs: WBC 15.07, platelets 357, BUN 61, creatinine 2.10, procalcitonin 0.78. Blood cultures with no growth to date. Urinalysis with 0-5 WBCs, > 20 hyaline casts, + granular casts. Respiratory viral panel detected rhinovirus/enterovirus. Chest x-ray shows pulmonary congestive lung changes/interstitial edema. Newly depicted ill-defined opacity at the right lung base which could represent progression of congestion or superimposed infection. Transplant ultrasound was unremarkable. Without significant stenosis or occlusion of the right transplant renal artery. He was started on cefepime for possible pneumonia. Supportive care for entero-/rhinovirus and increased diuretics for possible acute on chronic CHF. His hospital course was complicated by worsening leukocytosis up to WBC 32.49 on (10/01/2024), hypotension with sbp to 70s-80s ( 09/30/2024), right upper extremity swelling with decreased movement of the right wrist due to hand swelling. X-ray of the right hand shows possible osteomyelitis involving the tuft of the right index finger distal phalanx. Sclerosis and deformity of the lunate that could be due to chronic avascular necrosis or old trauma. A right upper extremity Doppler showed edema of the right anterior forearm and thrombus within the right internal jugular vein and likely thrombosed right cephalic vein. He is now on Cefepime, Daptomycin and doxycycline. ID consulted for possible finger osteomyelitis. Orthopedics to evaluate. On my initial exam patient is fatigued appearing. He denies any trauma to the finger or hand. He reports that the hand became progressively more swollen during this admission. Microbiology: Blood culture 09/30 NGTD Antibiotics: Cefepime 09/29 -ongoing Daptomycin 10/01ongoing Doxycycline 09/30ongoing #RUE? hand swelling # Enterovirus/rhinovirus PCR positive # Possible superimposed bacterial pneumonia vs CHf #RIJ DVT #S/P renal transplant in 2009, on tacrolimus, pred, mycophenolate #H/o R TKA #Krissy Discussion: Right upper extremity swelling in the setting of DVT, however cannot rule out superimposed infection; Xray shows findings cf right index osteomyelitis No mateusz signs of acute infection at this time except for pain and swelling. Patient has a history of gout so the abnormalities on x-ray could be 2/2 to this as well . MRI hand shows no evidence of osteo or abscess . NO plans for surgical intervention. His presenting symptoms could be a combination of CHF exacerbation with viral pneumonia. Cannot exclude a superimposed bacterial pneumonia. Has a history of negative MRSA screens in the last few month. ON RA. Procal 0.78. 116 -- WBC down to 15.33. cr 3.49 Afebrile. MRI more c/f cellulitis. Recommendations: Continue Cefepime/daptomycin. Anticipate a 7 day course of abx for SSTI. Cefepime with cover for Pna as well. ID will continue to follow. Terese Brandon MD, MPH Infectious Disease [facility], ID Division Call [phone] with questions Admission and Anticipated Discharge Date Admission Date: September 30, 2024 Subjective This patient recommendation is based on a telemedicine consult request which was completed asynchronously through chart review and information provided by the primary physician. The patient was not seen or examined today. The evaluation is consultative in nature and all patient care and treatment decisions can either be accepted or rejected by the patient's primary hospital-based treating physician using their own independent medical judgment for their patient. Time Spent Reviewing Chart: 21 - 30 minutes MRI hand shows no evidence of osteo or abscess WBC down to 15.33. cr 3.49 Afebrile Results & Data Vital Signs (Past 12 Hours) Vital Signs Temp Pulse Pulse Resp BP Pulse Ox O2 Del Method 10/03/24 15:30 36.3 C L 81 18 132/79 96 Room Air 10/03/24 15:10 81 10/03/24 12:42 83 19 106/68 98 Room Air 10/03/24 08:41 36.3 C L 89 18 155/58 H 96 Room Air 10/03/24 08:00 80 Laboratory Results Laboratory Results - last 48 hr 10/01/24 10/01/24 10/01/24 12:54 12:54 12:54 WBC RBC Hgb Hct MCV MCH MCHC RDW Std Deviation RDW Coeff of Jaye Plt Count MPV Immature Gran % (Auto) Neut % (Auto) Lymph % (Auto) [place] % (Auto) Eos % (Auto) Baso % (Auto) Neut # (Auto) Lymph # (Auto) [place] # (Auto) Eos # (Auto) Baso # (Auto) Immature Gran # (Auto) Polychromasia ESR PT INR APTT PTT Ratio Heparin Anti-Xa, Unfract Sodium Potassium Chloride Carbon Dioxide Anion Gap BUN Creatinine Est Cr Clr Drug Dosing eGFR BUN/Creatinine Ratio Glucose Calcium Magnesium Total Bilirubin AST ALT Alkaline Phosphatase Troponin I High Sens C-Reactive Protein Total Protein Albumin Globulin Albumin/Globulin Ratio Blood Type A Positive Antibody Screen POSITIVE A Antibody Identification Auto Cold Agglutinin Auto Gil Agglutinin Anti-E Antibody ID Referred Antibody ID Comment Cancelled Crossmatch See Detail 10/01/24 10/02/24 10/02/24 15:56 00:01 01:55 WBC 20.85 H RBC 2.20 L Hgb 7.5 L 7.5 L Hct 23.2 L 22.8 L MCV 105.5 H MCH 34.1 H MCHC 32.3 RDW Std Deviation 63.7 H RDW Coeff of Jaye 17.0 H Plt Count 262 MPV 10.0 Immature Gran % (Auto) 1.2 Neut % (Auto) 93.8 Lymph % (Auto) 0.5 [place] % (Auto) 4.5 Eos % (Auto) 0.0 Baso % (Auto) 0.0 Neut # (Auto) 19.54 H Lymph # (Auto) 0.11 L [place] # (Auto) 0.94 H Eos # (Auto) 0.00 Baso # (Auto) 0.01 Immature Gran # (Auto) 0.25 H Polychromasia 1+ ESR PT INR APTT PTT Ratio Heparin Anti-Xa, Unfract Sodium 130 L 129 L Potassium 5.2 H 5.0 Chloride 100 98 Carbon Dioxide 21 21 Anion Gap 9 10 BUN 76 H 79 H Creatinine 3.28 H D 3.50 H Est Cr Clr Drug Dosing 26.6 24.9 eGFR 20.33 18.81 BUN/Creatinine Ratio 23.2 H 22.6 H Glucose 137 H 131 H Calcium 8.9 8.6 Magnesium Total Bilirubin 1.7 H AST 18 ALT 13 Alkaline Phosphatase 60 Troponin I High Sens 361.7 H* D C-Reactive Protein Total Protein 7.2 Albumin 2.9 L Globulin 4.3 H Albumin/Globulin Ratio 0.7 L Blood Type Antibody Screen Antibody Identification Antibody ID Referred Antibody ID Comment Crossmatch 10/02/24 10/02/24 10/02/24 02:13 06:16 07:37 WBC 20.29 H RBC 2.26 L Hgb 7.5 L Hct 23.7 L MCV 104.9 H MCH 33.2 MCHC 31.6 L RDW Std Deviation 64.5 H RDW Coeff of Jaye 16.9 H Plt Count 266 MPV 9.9 Immature Gran % (Auto) Neut % (Auto) Lymph % (Auto) [place] % (Auto) Eos % (Auto) Baso % (Auto) Neut # (Auto) Lymph # (Auto) [place] # (Auto) Eos # (Auto) Baso # (Auto) Immature Gran # (Auto) Polychromasia ESR PT 12.6 H INR 1.2 H APTT 31 PTT Ratio 1.2 Heparin Anti-Xa, Unfract Sodium 128 L Potassium 5.0 Chloride 98 Carbon Dioxide 22 Anion Gap 8 BUN 80 H Creatinine 3.51 H Est Cr Clr Drug Dosing 25.0 eGFR 18.74 BUN/Creatinine Ratio 22.8 H Glucose 143 H Calcium 8.9 Magnesium 1.9 Total Bilirubin AST ALT Alkaline Phosphatase Troponin I High Sens 361.0 H* C-Reactive Protein Total Protein Albumin Globulin Albumin/Globulin Ratio Blood Type Antibody Screen Antibody Identification Antibody ID Referred Antibody ID Comment Crossmatch 10/02/24 10/03/24 10/03/24 18:29 02:35 04:05 WBC 15.33 H RBC 2.41 L Hgb 8.0 L Hct 24.6 L MCV 102.1 H MCH 33.2 MCHC 32.5 RDW Std Deviation 66.5 H RDW Coeff of Jaye 17.9 H Plt Count 248 MPV 10.2 Immature Gran % (Auto) 0.9 Neut % (Auto) 94.2 Lymph % (Auto) 0.7 [place] % (Auto) 4.2 Eos % (Auto) 0.0 Baso % (Auto) 0.0 Neut # (Auto) 14.44 H Lymph # (Auto) 0.10 L [place] # (Auto) 0.65 H Eos # (Auto) 0.00 Baso # (Auto) 0.00 Immature Gran # (Auto) 0.14 Polychromasia 1+ ESR 81 H PT INR APTT PTT Ratio Heparin Anti-Xa, Unfract 0.11 L Cancelled 0.15 L Sodium 123 L Potassium TNP 4.6 Chloride 94 L Carbon Dioxide 20 L Anion Gap 9 BUN 80 H Creatinine 3.49 H Est Cr Clr Drug Dosing 25.2 eGFR 18.87 BUN/Creatinine Ratio 22.9 H Glucose 150 H Calcium 8.5 L Magnesium 2.0 Total Bilirubin 1.2 H AST TNP 23 ALT 18 Alkaline Phosphatase 59 Troponin I High Sens C-Reactive Protein 25.18 H Total Protein 7.6 Albumin 2.9 L Globulin 4.7 H Albumin/Globulin Ratio 0.6 L Blood Type Antibody Screen Antibody Identification Antibody ID Referred Antibody ID Comment Crossmatch 10/03/24 12:13 WBC RBC Hgb Hct MCV MCH MCHC RDW Std Deviation RDW Coeff of Jaye Plt Count MPV Immature Gran % (Auto) Neut % (Auto) Lymph % (Auto) [place] % (Auto) Eos % (Auto) Baso % (Auto) Neut # (Auto) Lymph # (Auto) [place] # (Auto) Eos # (Auto) Baso # (Auto) Immature Gran # (Auto) Polychromasia ESR PT INR APTT PTT Ratio Heparin Anti-Xa, Unfract < 0.10 L Sodium Potassium Chloride Carbon Dioxide Anion Gap BUN Creatinine Est Cr Clr Drug Dosing eGFR BUN/Creatinine Ratio Glucose Calcium Magnesium Total Bilirubin AST ALT Alkaline Phosphatase Troponin I High Sens C-Reactive Protein Total Protein Albumin Globulin Albumin/Globulin Ratio Blood Type Antibody Screen Antibody Identification Antibody ID Referred Antibody ID Comment Crossmatch Diagnostic Findings Microbiology 09/30/24 02:06 Blood Aerobic Blood Culture - Preliminary No growth in Aerobic bottle after 48 hours. 09/30/24 02:06 Blood Anaerobic Blood Culture - Preliminary No growth in Anaerobic bottle after 48 hours. 09/30/24 02:06 Blood Aerobic Blood Culture - Preliminary No growth in Aerobic bottle after 48 hours. 09/30/24 02:06 Blood Anaerobic Blood Culture - Preliminary No growth in Anaerobic bottle after 48 hours. Renal Ultrasound 10/01/24 10:50 US renal transplant w dop HISTORY: 63 years-old Male KRISSY acute kidney injury with a renal transplant COMPARISON: CT 06/27/2024, ultrasound 01/21/2024. TECHNIQUE: Multiple real-time sonographic images of the kidneys were obtained assessing grayscale appearance, color and spectral flow FINDINGS: Right [place] kidney measures 6.9 cm in length and the left measures 5.1 cm. Both of these kidneys are atrophic with cortical thinning and increased parenchymal echogenicity. No hydronephrosis. Right pelvic transplanted kidney redemonstrated measuring 11.9 x 5.7 x 5.8 cm demonstrating no hydronephrosis or suspicious mass lesion. Low resistance waveforms in the transplanted right renal artery with peak systolic velocities measuring up to 41 cm/s. Possible nonobstructing right renal calculus measuring 3 mm. Patent transplanted renal vein. Resistive indices measure up to 0.8. Decompressed bladder. IMPRESSION: 1. Unremarkable appearance of the right renal transplant. 2. No significant stenosis or occlusion within the right transplant renal artery. 3. Atrophic [place] kidneys. ACT 112: Negative or not required by law. The above report was generated using voice recognition software. It may contain grammatical, syntax or spelling errors. Electronically signed by: Darion Garcia M.D. 10/01/2024 3:40 PM Finger X-Ray 10/01/24 18:49 Clinical History: Swelling. Index finger infection 3 views of the right and a finger are submitted for review. Findings: There is some cortical and subcortical lucency involving the tuft of the index finger distal phalanx No subluxation or dislocation is seen. No other osseous abnormality is identified. There are no radiopaque foreign bodies. Impression: Possible osteomyelitis involving the tuft of the right index finger distal phalanx Electronically signed by Milton Mcgraw 10-01-2024 7:42 PM Hand X-Ray 10/01/24 18:49 Clinical History: Swelling. Index finger infection 6 views of the right hand are submitted for review. Findings: There is sclerosis and deformity of the lunate. This could be due to chronic avascular necrosis or an old fracture. No clear acute fracture is seen. There is some cortical and subcortical lucency involving the tuft of the index finger distal phalanx No subluxation or dislocation is seen. There is mild osteoarthritis of the thumb carpometacarpal joint. No other osseous abnormality is identified. There are no radiopaque foreign bodies. There are extensive vascular calcifications Impression: 1. Possible osteomyelitis involving the tuft of the right index finger distal phalanx 2. Sclerosis and deformity of the lunate that could be due to chronic avascular necrosis or old trauma Electronically signed by Milton Mcgraw 10-01-2024 7:28 PM Venous Doppler Study 10/01/24 18:49 EXAM: US venous doppler UE RT CLINICAL HISTORY: RT FOREARM AND HAND SWELLING. TECHNIQUE: Ultrasound examination of right upper extremity veins was performed in real-time and duplex. One or more of the following were performed- spectral analysis, resistive index, waveform analysis, and pulsed Doppler. COMPARISON: None. FINDINGS: An echogenic wall-adherent thrombus is seen within the right internal jugular vein with partial compressibility. Normal phasic, non-pulsatile, and spontaneous flow is noted in the right subclavian, axillary, brachial, basilic, antecubital, radial, and ulnar veins. Visualized veins of the right upper extremity demonstrate normal compressibility. No sonographic evidence of acute deep vein thrombosis (DVT) is detected in the visualized veins of the upper extremity. Compression and Augmentation: All evaluated veins compress fully with applied transducer pressure. Augmentation of venous flow is noted with distal compression. Additional Findings: The right cephalic vein is not visualized at the site of the IV line. Edema of the right anterior forearm is noted. IMPRESSION: 1. An echogenic wall-adherent thrombus is seen within the right internal jugular vein with partial compressibility. 2. The right cephalic vein is not visualized at the site of the IV line, most likely thrombosed. 3. Edema of the right anterior forearm is noted. 4. Please correlate clinically. Disclaimer: DVT could be missed early in the disease when clot burden is minimal. For patients with moderate and high pretest probability of DVT and negative ultrasound, the [employer] [employer] clinical guidelines recommend testing with a D-dimer assay or repeat ultrasound in 5-7 days. If symptoms worsen, the Society of radiologists in ultrasound recommends repeating ultrasound even earlier. Electronically signed by Giuseppe Real 10-02-2024 04:42 AM Hand MRI 10/03/24 14:27 MR hand RT wo con CLINICAL HISTORY: right hand swelling,index finger ?OM on xray TECHNIQUE: Multisequence, multiplanar MR images of the right hand were obtained without contrast COMPARISON: Comparison is made to abdomen radiograph 10/01/2024 FINDINGS: No evidence of acute fracture. No bony edema is seen. No joint effusion is seen. Diffuse soft tissue edema is seen. No drainable fluid collection. IMPRESSION: Diffuse soft tissue edema compatible with cellulitis without evidence of abscess or osteomyelitis. ACT 112: Negative or not required by law. Electronically signed by: Chris Serra M.D. 10/03/2024 12:32 PM Medications Administered Home Medications Medication Instructions Recorded Confirmed Last Taken mycophenolate mofetil 250 mg 500 mg (2 x 250 mg) PO BID #360 05/29/20 09/30/24 09/12/24 capsule caps amoxicillin 500 mg capsule 2,000 mg PO DIRECTED PRN PRIOR 07/29/20 09/30/24 Unknown TO DENTAL PROCEDURES multivitamin 1 tab PO QAM 08/02/21 09/30/24 09/12/24 folic acid 1 mg tablet 1 mg PO BID #180 tabs 09/20/23 09/30/24 09/12/24 pantoprazole 40 mg tablet,delayed 40 mg PO BID #180 tabs 12/06/23 09/30/24 09/12/24 release calcium carbonate 500 mg PO QAM 01/21/24 09/30/24 09/12/24 ferrous sulfate 325 mg (65 mg 325 mg PO BID #60 tabs 02/05/24 09/30/24 09/12/24 iron) tablet metoprolol succinate 100 mg 100 mg PO HS #90 tabs 04/22/24 09/30/24 09/12/24 tablet,extended release 24 hr acyclovir 400 mg tablet 400 mg PO BID 05/07/24 09/30/24 09/12/24 ondansetron 4 mg disintegrating 4 mg PO Q8 PRN nausea #20 tabs 05/22/24 09/30/24 Unknown tablet magnesium oxide 500 mg PO BID 08/09/24 09/30/24 09/12/24 albuterol sulfate 90 mcg/actuation 2 inh inhalation Q6H PRN shortness 08/25/24 09/30/24 Unknown aerosol inhaler of breath or wheezing #8.5 grams tacrolimus 1 mg capsule, 1 - 2 mg PO UD 08/30/24 09/30/24 09/12/24 immediate-release danazol 200 mg capsule 200 mg PO BID 09/13/24 09/30/24 09/12/24 metoprolol succinate 25 mg 25 mg PO QAM #30 tabs 09/20/24 09/30/24 Unknown tablet,extended release 24 hr allopurinol 100 mg tablet 100 mg PO BID 09/24/24 09/30/24 Unknown prednisone 5 mg tablet 5 mg PO QDB 09/24/24 09/30/24 Unknown bumetanide 1 mg tablet 1 mg PO DAILY Fluid Retention #90 09/27/24 09/30/24 Unknown tabs levothyroxine 125 mcg tablet 125 mcg PO QAM #90 tabs 09/27/24 09/30/24 Unknown Active Medications Generic Name Dose Route Start Last Admin Trade Name Freq PRN Reason Stop Dose Admin Acetaminophen 650 mg 09/30/24 03:37 10/03/24 12:27 Acetaminophen 325 Mg Tab PO 10/30/24 03:36 650 mg Q6H PRN Administration Pain & Pre PT Acyclovir 200 mg 10/02/24 21:00 10/03/24 08:57 Acyclovir 400 Mg Tab PO 11/01/24 20:59 200 mg BID ESTEFANI Administration Allopurinol 100 mg 10/03/24 09:00 10/03/24 08:56 Allopurinol 100 Mg Tab PO 11/02/24 08:59 100 mg DAILY ESTEFANI Administration Calcium Carbonate 1 tab 09/30/24 09:00 10/03/24 08:57 Calcium Carbonate 1250mg Tab PO 10/30/24 08:59 1 tab QAM ESTEFANI Administration Danazol 200 mg 09/30/24 09:00 10/03/24 08:58 Danazol 200 Mg Cap PO 10/30/24 08:59 200 mg BID ESTEFANI Administration Ferrous Sulfate 325 mg 09/30/24 08:00 10/03/24 08:56 Ferrous Sulfate 325 Mg Tab PO 10/30/24 07:59 Not Given BIDM ESTEFANI Folic Acid 1 mg 09/30/24 09:00 10/03/24 08:57 Folic Acid 1 Mg Tab PO 10/30/24 08:59 1 mg BID ESTEFANI Administration Doxycycline Hyclate 100 mg/ 100 mls @ 50 mls/hr 09/30/24 12:00 10/03/24 14:39 Dextrose IV 10/05/24 11:59 Infused Q12H ESTEFANI Infusion Heparin Sodium/Dextrose 25,000 units in 500 mls @ 40 mls/hr 10/02/24 06:30 10/03/24 13:15 Heparin Sodium/Dextrose IV 11/01/24 06:29 2,000 units/hr .[id number] ESTEFANI 40 mls/hr Titration Protocol 2,000 UNITS/HR Daptomycin 500 mg/ Syringe 10 mls @ 5 mls/min 10/02/24 06:15 10/02/24 06:33 IV 11/13/24 06:14 5 mls/min Q48H ESTEFANI Administration Protocol Cefepime HCl 1,000 mg in 10 mls @ 5 mls/min 10/02/24 14:00 10/03/24 13:45 Maxipime 2000mg IV 10/07/24 13:59 5 mls/min Q12H ESTEFANI Administration Protocol Hydrocortisone Sodium 0.5 mls @ 4 mls/min 10/03/24 09:00 10/03/24 08:59 Succinate 25 mg/ Syringe IV 11/02/24 08:59 4 mls/min Q8H ESTEFANI Administration Levothyroxine Sodium 125 mcg 09/30/24 06:30 10/03/24 05:39 Levothyroxine Sodium 125 Mcg Tablet PO 10/30/24 06:29 125 mcg DAILYBB ESTEFANI Administration Magnesium Oxide 400 mg 09/30/24 09:00 10/03/24 08:57 Magnesium Oxide 400 Mg Tab PO 10/30/24 08:59 400 mg BID ESTEFANI Administration Metoprolol Succinate 100 mg 09/30/24 21:00 10/02/24 20:41 Metoprolol Succ 50mg Ext Rel Tab PO 10/30/24 20:59 100 mg HS ESTEFANI Administration Metoprolol Succinate 25 mg 09/30/24 09:00 10/03/24 08:57 Metoprolol Succ 25mg Ext Rel Tab PO 10/30/24 08:59 25 mg QAM ESTEFANI Administration Multivitamins 1 tab 09/30/24 09:00 10/03/24 08:57 Multivitamin Tab PO 10/30/24 08:59 1 tab QAM ESTEFANI Administration Mycophenolate Mofetil 500 mg 09/30/24 09:00 10/03/24 08:58 Mycophenolate Mofetil 250 Mg Cap PO 10/30/24 08:59 500 mg BID ESTEFANI Administration Ondansetron HCl 4 mg 09/30/24 13:06 10/01/24 07:47 Ondansetron Inj 2 Mg/Ml 2 Ml Vial IV 10/30/24 13:05 4 mg Q6H PRN Administration Nausea And Vomiting Pantoprazole Sodium 40 mg 09/30/24 09:00 10/03/24 08:57 Pantoprazole 40 Mg Tab PO 10/30/24 08:59 40 mg BID ESTEFANI Administration Prednisone 5 mg 09/30/24 07:30 09/30/24 06:35 Prednisone 5 Mg Tab PO 10/30/24 07:29 5 mg QDB ESTEFANI Administration Sodium Bicarbonate 1,300 mg 10/03/24 10:30 10/03/24 12:27 Sodium Bicarbonate 650 Mg Tab PO 11/02/24 10:29 1,300 mg BID ESTEFANI Administration Sodium Zirconium Cyclosilicate 10 gm 10/01/24 11:00 10/03/24 12:39 Sodium Zirconium Cyclosilicate 10 Gm Packet PO 10/31/24 10:59 10 gm DAILY@1100 ESTEFANI Administration Tacrolimus 2 mg 09/30/24 09:00 10/03/24 08:59 Tacrolimus 1 Mg Cap PO 10/30/24 08:59 2 mg QAM ESTEFANI Administration Tacrolimus 1 mg 09/30/24 21:00 10/02/24 20:38 Tacrolimus 1 Mg Cap PO 10/30/24 20:59 1 mg HS ESTEFANI Administration
--- NOTE | 2024-10-03 17:09 | Hospitalist Progress Note ---
Date of Service October 03, 2024 Assessment & Plan (1) Rhinovirus infection: (2) Pneumonia: (3) Acute kidney injury: (4) Acute on chronic heart failure with preserved ejection fraction (HFpEF): (5) Acute DVT (deep venous thrombosis): Plan 63-year-old male with past medical history significant for HFpEF, A-fib, ESRD, warm autoimmune hemolytic anemia, ESRD s/p renal transplant now with CKD stage III-IV, presents with increased dizziness, weakness, fatigue, and worsening shortness of breath after exertion. Symptom onset ~ 3 days prior to admission but acutely worsening the day of arrival. Has been having increased swelling to BLE, BNP elevated in the 500s which is increased from his baseline. #Entero/Rhinovirus/Sepsis with shock/Adrenal insufficiency-With associated N/V and significant hypotension on admission. With leukocytosis, minimally elevated procalcitonin, and CXR w/ newly ill-defined of R lung base. Leukocytosis worsened secondary to stress to steroids and now continues to be improving Some tachypnea w/ minimal exertion, some of which is from CHF -continue treating for PNA with Cefepime, doxycycline x 7 day course -Blood pressures improved with stress dose steroids with IV hydrocortisone- switching to prednisone 40mg po daily and taper back to home dose of 5mg -Supportive care; acetaminophen prn for fever/pain -Not on supplemental O2 -Follow chest imaging to resolution in 4-6 weeks #KRISSY/CKD stage 4/Status-post renal transplant/Hyperkalemia-with h/o FSGS + renal transplant 2009, follows with nephrology, most recent visit 09/27/24; Cr baseline 1.3-1.4; On CellCept + Prograf (trough 4-7). Note from last nephrology visit w/ following adjustments- Holding lisinopril, resumed bumex at that time. Received 1 dose of IV Lasix and 1 dose of Bumex 2 Mg p.o. x 1 on admission which was then held for significant hypotension UA cloudy, 1+ protein, trace ketones, 1+ bilirubin, trace LE, hyaline cast, epithelial cells, and granular casts Cr 1.86 on admission and now up to 3.5 with lower urine output --> likely ATN/KRISSY from hypotension from sepsis Remains with significant hypervolemia here despite bumex IV on 10/02 Appreciate nephrology consultation, No need for urgent dialysis -Follow BMP, urine output, volume status -give another Bumex 1mg IV x 1 on 10/03 -start NaHCO3 for hyponatremia and met acidosis #Warm autoimmune hemolytic anemia-Dx Jul 2023; Follows with hematology most recent visit 08/20/2024; IVIG; Velcade, danazol Hgb down to 7.5, d/w his [employer] who recommended IVIG and PRBC transfusion- PRBCs delayed due to needing blood from central blood bank in [place]-finally got PRBCs on 10/02 x 1 unit and received 2 days of IVIG Hgb now 8.0 -Continue acyclovir but decreased dose for renal dosing -Continue iron supplement and folic acid -continue danazol -Follow CBC #Right hand swelling/Right index finger infection-possible OM suspected on xray of hand/finger-right hand with significant swelling, not coming from IV site, with old infection in finger with skin at the fingertip-healing paronychia- seen by orthopedics and no surgical intervention needed for finger, suspects gout in wrist and suggest steroids versus NSAIDs-with CKD avoid NSAIDs -change IV hydrocortisone to prednisone 40mg po daily which will be better for gout -continue elevation of hand -appreciate ID consult--> MRI hand ordered and shows no OM or abscess, just cellulitis -continue Cefepime and dapto x 7 days for SSTI #Right IJ DVT-RUE venous Doppler shows thrombus in the right internal jugular vein-started heparin drip - antiXA levels have been subtherapeutic D/w Oncology--> resume previous Xarelto -stop heparin gtt and start Xarelto 15mg po bid x 21 days then 20mg po daily # Acute on chronic HFpEF-p/w worsening STOCK, weakness, and feeling as though he is "filling with fluid"; Volume overloaded on exam w/ 2+ pitting edema BLE, in crease in baseline per patient. Minimal crackles in lung field bases, increased STOCK per patient. He has also increased from his prior admission (100.7 kg to 109 kg). Echo 07/14 LVEF 55 to 60%, RV mildly dilated, RA severely dilated, LA moderately dilated, mild AR, mild MR, RVSP 30 to 40 mmHg, mild concentric LVH noted, LV systolic function normal. BNP 597. CXR with infiltrate and CHF changes as above Gave IV lasix and increased po bumex as above but developed worsening KRISSY -Given low urine output and worsening hypervolemia-give Bumex 1 Mg IV x 1 on 10/02 and another Bumex 1mg IV on 10/03 -Continue Daily weights, I+Os; Low-sodium, fluid restricted diet (1200mL) -With flushing and chest pressure on the evening of 09/30-initially with myocardial demand ischemia with Troponin 48.1,50, 62, but then troponin now up to 361 but stable on repeat-likely from KRISSY -ECG with some lateral ST depressions mild change from previous, but chest pain resolved -holding metoprolol due to hypotension but now able to give today as BPs improved -Follow BMP, magnesium, replace electrolytes as needed #A-fib, permanent, rate mildly elevated as unable to give metoprolol due to hypotension, but now improved BPs and able to give metoprolol Previous history of Afib, DOAC deferred 2/2 acute anemia in past -now starting Xarelto and stopping heparin gtt for DVT -continue metoprolol with hold parameters -continue tele monitoring #Sleep apnea- No CPAP at baseline #GERD- Protonix #Gout- Allopurinol reduced dose for renal dosing #Hypothyroidism- Levothyroxine Dispo: continued stay PCU VTE Prophylaxis: SCDs, heparin gtt now converting to Xarelto Admission and Anticipated Discharge Date Admission Date: September 30, 2024 Subjective Still with pain in right hand, with swelling, and pain in right wrist. Denies SOB but is tachypneic at rest with minimal movement. Reports he was OOB to the chair today and feels he would be able to get around at home if his right wrist was feeling better. Not making much urine since receving IV bumex today. Tele with Afib, rates 80 Physical Exam Constitutional: WD/WN, vitals as above Respiratory: normal respiratory effort, lungs clear to auscultation Cardiovascular: Rate/Rhythm: regular rate, + tachycardic and + irregularly irregular Extremities: + edema (2+ pitting edema legs/feet bilat,right hand 2+ nonpitting/improved) Gastrointestinal (Abdomen): normal bowel sounds, soft, nontender, no hepatosplenomegaly Musculoskeletal: Extremities: + extremities abnormal to inspection (right index finger skin yellow color,hard,erythematous finger) with 2+ edema right hand Psychiatric: A+Ox3, euthymic affect Results & Data Results & Data Vital Signs (Past 12 Hours) Vital Signs Temp Pulse Pulse Resp BP Pulse Ox O2 Del Method 10/03/24 15:30 36.3 C L 81 18 132/79 96 Room Air 10/03/24 15:10 81 10/03/24 12:42 83 19 106/68 98 Room Air 10/03/24 08:41 36.3 C L 89 18 155/58 H 96 Room Air 10/03/24 08:00 80 Laboratory Results CBC, CMP, mag, blood cxs reviewed Diagnostic Findings MRI hand reviewed PG Care Time/CCT Total # of Minutes Spent Total Time Spent with Patient: Total time spent is greater than 50% in coordination of care (as documented) at patient's floor/unit and/or counseling patient: Coding Level of Care Code 63455 SUB INP/OBS CARE 3/50MIN Diagnoses Rhinovirus infection B34.8 Pneumonia J18.9 Laterality: left Lung location: lower lobe of lung Pneumonia type: due to unspecified organism Acute kidney injury N17.9 Acute on chronic heart failure with preserved ejection fraction (HFpEF) I50.33 Acute DVT (deep venous thrombosis) I82.409 (2) Pneumonia Laterality: left Lung location: lower lobe of lung Pneumonia type: due to unspecified organism Qualified Code(s): J18.9 - Pneumonia, unspecified organism
[2024-10-03] MEDS: predniSONE 20 MG TAB PO SCH (18:15)
[2024-10-03] MEDS: RIVAROXABAN 15 MG TAB PO SCH (20:03)
--- NOTE | 2024-10-03 21:58 | Electrocardiogram Report ---
Test Reason : Blood Pressure : */* mmHG Vent. Rate : 95 BPM Atrial Rate : * BPM P-R Int : * ms QRS Dur : 158 ms QT Int : 434 ms P-R-T Axes : * -41 -5 degrees QTcB Int : 545 ms Atrial fibrillation Left axis deviation Right bundle branch block T wave abnormality, consider lateral ischemia Abnormal ECG When compared with ECG of 30-Sep-2024 00:01, No significant change Confirmed by Chuancey Dahl ([id number]) on 10/03/2024 9:58:11 PM Referred By: REFERRED SELF Confirmed By: Chauncey Dahl
[2024-10-04 07:38] LABS: Hematocrit (blood only) 26.8 % (42.0-52.0); Hemoglobin 8.6 g/dl (14.0-18.0); Mean Corpuscular Hemoglobin 33.5 pg (25.0-34.0); Mean Corpuscular Hgb Conc 32.1 g/dL (32.0-36.0); Mean Corpuscular Volume 104.3 fL (80.0-100.0); Platelet Count 267 K/uL (130-400); RDW Coefficient of Variation 17.5 % (11.5-14.5); RDW Standard Deviation 64.9 fL (36.4-46.3); Red Blood Count 2.57 M/uL (4.70-6.10); White Blood Count 11.85 K/ul (4.8-10.8)
[2024-10-04 08:03] LABS: Calcium 8.7 mg/dl (8.6-10.3); Creatinine Clr Calc Pharmacy 23.9 ml/min
[2024-10-04 08:11] LABS: Immature Granulocytes # (auto) 0.08 K/uL (0.01-0.20); Immature Granulocytes % (auto) 0.7 %; Lymphocytes % (auto) 0.8 %; Macrocytosis Present; Monocytes # (auto) 0.52 K/uL (0.11-0.59); Monocytes % (auto) 4.4 %; Neutrophils # (auto) 11.15 K/uL (1.40-6.50); Neutrophils % (auto) 94.1 %; Polychromasia 2+
--- NOTE | 2024-10-04 10:24 | Nephrology Progress Note ---
Date of Service October 04, 2024 Assessment & Plan (1) Acute on chronic heart failure with preserved ejection fraction (HFpEF): Plan: Goal is to try to maintain slightly negative fluid balance. Document strict I/O's. Daily fluid restriction reduced to 1.2 L. 1 mg IV Bumex provided this AM. (2) Acute kidney injury: Plan: Creatinine rising. Remains in positive fluid balance with increasing evidence of volume overload. Non-oliguric. Electrolytes acceptable. Hyponatremia noted and stable. Maintain free water restriction and NaHCO3 twice daily. Continue Lokelma daily. KRISSY consistent with ATN infectious complicated by hemodynamic changes and IVIG infusion. Transfusion support PRN to maintain Hgb >8. Thankfully, there is no emergent indication for [employer] at this time. Urine microscopy acellular. Otherwise notable for hyaline and granular casts. Transplant US reviewed. No obstruction. Transplant artery patent. Allopurinol dose reduced to 100 mg daily this AM. Acyclovir reduced to 200 mg twice daily. Medications are otherwise appropriate for kidney function. Monitor CK on daptomycin. Repeat serum metabolic profile tomorrow AM. Continue NaHCO3 1300 mg twice daily. Fluid restriction to 1.2 L/d. (3) Kidney transplant status, living unrelated donor: Plan: Baseline creatinine 1.9-2.3 mg/dL. Continue MMF + tacrolimus as Rx. (4) Rhinovirus infection: (5) Infiltrate of lower lobe of right lung present on imaging study: Plan: Follow up imaging to be coordinated s/p diuresis and treatment for respiratory infection. (6) Infection of finger: Plan: X-ray was concerning for osteomyelitis. Antibiotic therapy has been switched to cefepime + daptomycin. Ortho following. MRI with evidence of cellulitis without strong concern for osteomyelitis. ID following. (7) Warm autoimmune hemolytic anemia: Plan: Appreciate hematology consultation. IVIG completed remains on hydrocortisone. 1 u PRBC transfusion support provided 10/02. Admission and Anticipated Discharge Date Admission Date: September 30, 2024 Subjective No acute events overnight. Gumaro is resting comfortably in bedside chair this AM. He reports improvement in pain and swelling in his right hand. He denies chest pains or palpitations. He is breathing comfortably. No fevers or chills. Urine output ~450 ml in past 24 hours (1 undocumented void). Gumaro states that there was only a slight response to IV Bumex yesterday. Edema stable. Review of Systems Review of Systems: All systems reviewed & are unremarkable except as noted in HPI & below Physical Exam Constitutional: well developed and + ill appearing; no acute distress Eyes: + anicteric sclerae ENMT: Mouth: no oral mucosal abnormality and oral mucous membranes not dry Neck: normal visual inspection, trachea midline and + thick neck Respiratory: normal respiratory effort; not tachypneic Auscultation: lungs clear to auscultation bilaterally and + rales Cardiovascular: Rate/Rhythm: + irregularly irregular Heart Sounds: normal S 1 and normal S2 Extremities: + edema (+1 pitting BL LE to thighs) Musculoskeletal: Extremities: no cyanosis and no clubbing Skin: no rashes and no jaundice Neurologic: Motor/Sensory: no tremor and no asterixis Psychiatric: Orientation: alert and oriented x 3 Results & Data Vital Signs (Past 12 Hours) Vital Signs Temp Pulse Resp BP Pulse Ox O2 Del Method 10/04/24 08:46 36.4 C L 87 18 164/84 H 99 Room Air 10/04/24 02:38 36.4 C L 85 20 112/64 95 Room Air 10/03/24 22:51 36.7 C 88 18 122/76 97 Room Air Laboratory Results Laboratory Results - last 24 hr 10/03/24 10/04/24 12:13 06:45 WBC 11.85 H RBC 2.57 L Hgb 8.6 L Hct 26.8 L MCV 104.3 H MCH 33.5 MCHC 32.1 RDW Std Deviation 64.9 H RDW Coeff of Jaye 17.5 H Plt Count 267 MPV 10.0 Immature Gran % (Auto) 0.7 Neut % (Auto) 94.1 Lymph % (Auto) 0.8 [place] % (Auto) 4.4 Eos % (Auto) 0.0 Baso % (Auto) 0.0 Neut # (Auto) 11.15 H Lymph # (Auto) 0.10 L [place] # (Auto) 0.52 Eos # (Auto) 0.00 Baso # (Auto) 0.00 Immature Gran # (Auto) 0.08 Polychromasia 2+ Macrocytosis Present Heparin Anti-Xa, Unfract < 0.10 L Sodium 124 L Potassium 5.0 Chloride 94 L Carbon Dioxide 21 Anion Gap 9 BUN 86 H Creatinine 3.74 H Est Cr Clr Drug Dosing 23.9 eGFR 17.37 BUN/Creatinine Ratio 23.0 H Glucose 120 H Calcium 8.7 Magnesium 2.0 PG Care Time/CCT Total # of Minutes Spent Total Time Spent with Patient: Total time spent is greater than 50% in coordination of care (as documented) at patient's floor/unit and/or counseling patient: Coding Level of Care Code 84769 SUB INP/OBS CARE 3/50MIN Diagnoses Acute on chronic heart failure with preserved ejection fraction (HFpEF) I50.33 Acute kidney injury N17.9 Kidney transplant status, living unrelated donor Z94.0 Rhinovirus infection B34.8 Infiltrate of lower lobe of right lung present on imaging study R91.8 Infection of finger L08.9 Warm autoimmune hemolytic anemia D59.11
[2024-10-04] MEDS: BUMETANIDE 1 MG in SYRINGE 0 ML IV ONE (11:39)
--- NOTE | 2024-10-04 14:36 | Hospitalist Progress Note ---
Date of Service October 04, 2024 Assessment & Plan (1) Rhinovirus infection: (2) Pneumonia: (3) Acute kidney injury: (4) Acute on chronic heart failure with preserved ejection fraction (HFpEF): (5) Acute DVT (deep venous thrombosis): Plan 63-year-old male with past medical history significant for HFpEF, A-fib, ESRD, warm autoimmune hemolytic anemia, ESRD s/p renal transplant now with CKD stage III-IV, presents with increased dizziness, weakness, fatigue, and worsening shortness of breath after exertion. Symptom onset ~ 3 days prior to admission but acutely worsening the day of arrival. Has been having increased swelling to BLE, BNP elevated in the 500s which is increased from his baseline. FOund to have Entero/Rhinovirus and PNA on CXR with septic shock #Entero/Rhinovirus/Sepsis with shock/Adrenal insufficiency-With associated N/V and significant hypotension with BPs in 70s systolic on admission. With leukocytosis, minimally elevated procalcitonin, and CXR w/ newly ill-defined of R lung base. Leukocytosis worsened secondary to stress to steroids and now much improved. BPs normalized and weaning off stress steroids -continue treating for PNA with Cefepime, doxycycline x 7 day course-last day of therapy 10/06 -Blood pressures improved with stress dose steroids with IV hydrocortisone- switched to prednisone 40mg po daily and taper back to home dose of 5mg over the next week -Supportive care; acetaminophen prn for fever/pain -Not on supplemental O2 -Follow chest imaging to resolution in 4-6 weeks #KRISSY/CKD stage 4/Status-post renal transplant/Hyperkalemia-with h/o FSGS + renal transplant 2009, follows with nephrology, most recent visit 09/27/24; Cr baseline 1.3-1.4; On CellCept + Prograf (trough 4-7). Note from last nephrology visit w/ following adjustments- Holding lisinopril, resumed bumex at that time. Received 1 dose of IV Lasix and 1 dose of Bumex 2 Mg p.o. x 1 on admission which was then held for significant hypotension UA cloudy, 1+ protein, trace ketones, 1+ bilirubin, trace LE, hyaline cast, epithelial cells, and granular casts Cr 1.86 on admission and continues to rise daily now at 3.74 with lower urine output --> likely ATN/KRISSY from hypotension from sepsis and adrenal insufficiency on admission Significant hypervolemia now improving with gentle IV diuresis with Bumex, Nephrology managing Appreciate nephrology consultation, No need for urgent dialysis -Follow BMP, urine output, volume status -give another Bumex 1mg IV x 1 on 10/04 -started NaHCO3 for hyponatremia and met acidosis which is improving with Na+ now 124 #Warm autoimmune hemolytic anemia-Dx Jul 2023; Follows with hematology most recent visit 08/20/2024; IVIG; Velcade, danazol Hgb down to 7.5, d/w his [employer]ace[employer] Former who recommended IVIG and PRBC transfusion- PRBCs delayed due to needing blood from central blood bank in [place]-finally got PRBCs on 10/02 x 1 unit and received 2 days of IVIG Hgb now improved to 8.6 -Continue acyclovir but decreased dose for renal dosing -Continue iron supplement and folic acid -continue danazol -Follow CBC -f/u with Heme after discharge #Right hand swelling/Right index finger infection-possible OM/Acute Gout OM suspected on xray of hand/finger-right hand with significant swelling, not coming from IV site, with old infection in finger with skin at the fingertip-healing paronychia-seen by orthopedics and no surgical intervention needed for finger, suspects gout in wrist -treating with prednisone 40mg po daily and now much improved swelling and pain, less erythma of wrist. Was not likely cellulitis of hand/wrist/finger as initially suspected -continue elevation of hand -appreciate ID consult--> MRI hand ordered and shows no OM or abscess, just cellulitis -still on abx for PNA but not likely needed for cellulitis-dc Dapto and just continue Cefepime and doxy for PNA #Right IJ DVT-With significant right hand and wrist swelling--> checked RUE venous Doppler which showed thrombus in the right internal jugular vein-started heparin drip - antiXA levels were subtherapeutic D/w Oncology--> started Xarelto 15mg po bid x 21 days then 20mg po daily He was on Xarelto previously for Afib but it has been on held for a while with his ongoing hemolytic anemia requiring transfusions He does not have any known chronic bleeding Suspect jugular DVT from multiple recent hospitalizations, known inflammatory conditions, will need permanent AC with Xarelto due to Afib regardless -continue Xarelto loading dose -follow CBC # Acute on chronic HFpEF-p/w worsening STOCK, weakness, and feeling as though he is "filling with fluid"; Volume overloaded on exam w/ 2+ pitting edema BLE, increase in baseline per patient. Minimal crackles in lung field bases, increased STOCK per patient. He has also increased from his prior admission (100.7 kg to 109 kg). Echo 07/14 LVEF 55 to 60%, RV mildly dilated, RA severely dilated, LA moderately dilated, mild AR, mild MR, RVSP 30 to 40 mmHg, mild concentric LVH noted, LV systolic function normal. BNP 597. CXR with infiltrate and CHF changes as above Gave IV lasix and increased po bumex as above but developed worsening KRISSY -Given low urine output and hypervolemia-giving Bumex 1 Mg IV daily now as per Nephro -Continue Daily weights, I+Os; Low-sodium, fluid restricted diet (1200mL) -With flushing and chest pressure on the evening of 09/30-initially with myocardial demand ischemia with Troponin 48.1,50, 62, but then troponin now up to 361 but stable on repeat-likely from KRISSY -ECG with some lateral ST depressions mild change from previous, but chest pain resolved -continue metoprolol for rate control as BPs improved -Follow BMP, magnesium, replace electrolytes as needed #A-fib, permanent, rates now improved/controlled as able to give metoprolol with normalized BPs Previous history of Afib, DOAC deferred 2/2 acute anemia in past -now started Xarelto for DVT as well -continue metoprolol with hold parameters -continue tele monitoring #Sleep apnea- No CPAP at baseline #GERD- Protonix #Gout- Allopurinol reduced dose for renal dosing, with acute attack being treated with prednisone #Hypothyroidism- Levothyroxine Dispo: continued stay PCU VTE Prophylaxis: SCDs, Xarelto Admission and Anticipated Discharge Date Admission Date: September 30, 2024 Subjective Right hand and wrist much improved, swelling and pain down. No SOB. Was out of bed to chair today. Not urinating as much as usual Tele with Afib, rates 70-80s I discussed his care with ID Physical Exam Constitutional: WD/WN, vitals as above Respiratory: normal respiratory effort, lungs clear to auscultation Cardiovascular: Rate/Rhythm: regular rate and + irregularly irregular Extremities: + edema (1+ pitting edema legs/feet bilat,right hand trace,much improved) Gastrointestinal (Abdomen): normal bowel sounds, soft, nontender, no hepatosplenomegaly Musculoskeletal: Extremities: + extremities abnormal to inspection (right index finger skin yellow color,hard,no erythema) Psychiatric: A+Ox3, euthymic affect Results & Data Results & Data Vital Signs (Past 12 Hours) Vital Signs Temp Pulse Pulse Resp BP Pulse Ox O2 Del Method 10/04/24 12:07 36.8 C 77 20 105/63 99 Room Air 10/04/24 08:46 36.4 C L 87 18 164/84 H 99 Room Air 10/04/24 08:00 84 10/04/24 02:38 36.4 C L 85 20 112/64 95 Room Air Laboratory Results CBC, BMP, mag reviewed PG Care Time/CCT Total # of Minutes Spent Total Time Spent with Patient: Total time spent is greater than 50% in coordination of care (as documented) at patient's floor/unit and/or counseling patient: Coding Level of Care Code 95355 SUB INP/OBS CARE 3/50MIN Diagnoses Rhinovirus infection B34.8 Pneumonia J18.9 Laterality: left Lung location: lower lobe of lung Pneumonia type: due to unspecified organism Acute kidney injury N17.9 Acute on chronic heart failure with preserved ejection fraction (HFpEF) I50.33 Acute DVT (deep venous thrombosis) I82.409 (2) Pneumonia Laterality: left Lung location: lower lobe of lung Pneumonia type: due to unspecified organism Qualified Code(s): J18.9 - Pneumonia, unspecified organism
--- NOTE | 2024-10-04 16:21 | Infectious Disease Progress Nt ---
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 He presented on 09/29/24 with increased weakness, fatigue, body aches and bilateral lower extremity edema. He reported feeling feverish at home. [place] that he was retaining fluid. Endorsed dyspnea on exertion. Denied chest pain, nausea, vomiting, diarrhea, sweats, headache change in urinary habits. In the ED, temp 37.2, pulse 114, RR 20, BP 120/71, O2 sats 97% on room air. Labs: WBC 15.07, platelets 357, BUN 61, creatinine 2.10, procalcitonin 0.78. Blood cultures with no growth to date. Urinalysis with 0-5 WBCs, > 20 hyaline casts, + granular casts. Respiratory viral panel detected rhinovirus/enterovirus. Chest x-ray shows pulmonary congestive lung changes/interstitial edema. Newly depicted ill-defined opacity at the right lung base which could represent progression of congestion or superimposed infection. Transplant ultrasound was unremarkable. Without significant stenosis or occlusion of the right transplant renal artery. He was started on cefepime for possible pneumonia. Supportive care for entero-/rhinovirus and increased diuretics for possible acute on chronic CHF. His hospital course was complicated by worsening leukocytosis up to WBC 32.49 on (10/01/2024), hypotension with sbp to 70s-80s ( 09/30/2024), right upper extremity swelling with decreased movement of the right wrist due to hand swelling. X-ray of the right hand shows possible osteomyelitis involving the tuft of the right index finger distal phalanx. Sclerosis and deformity of the lunate that could be due to chronic avascular necrosis or old trauma. A right upper extremity Doppler showed edema of the right anterior forearm and thrombus within the right internal jugular vein and likely thrombosed right cephalic vein. He is now on Cefepime, Daptomycin and doxycycline. ID consulted for possible finger osteomyelitis. On my initial exam patient is fatigued appearing. He denies any trauma to the finger or hand. He reports that the hand became progressively more swollen during this admission. Microbiology: Blood culture 09/30 NGTD Antibiotics: Cefepime 09/29 -ongoing Daptomycin 10/01ongoing Doxycycline #RUE hand swelling # Enterovirus/rhinovirus PCR positive # Possible superimposed bacterial pneumonia vs CHf #RIJ DVT #S/P renal transplant in 2009, on tacrolimus, pred, mycophenolate #H/o R TKA #Krissy Discussion: Right upper extremity swelling in the setting of DVT, however cannot rule out superimposed infection; Xray shows findings cf right index osteomyelitis No mateusz signs of acute infection at this time except for pain and swelling. Patient has a history of gout so the abnormalities on x-ray could be 2/2 to this as well . MRI hand shows no evidence of osteo or abscess . NO plans for surgical intervention. His presenting respiratory symptoms could be a combination of CHF exacerbation with viral pneumonia. Cannot exclude a superimposed bacterial pneumonia. Has a history of negative MRSA screens in the last few month. ON RA. Procal 0.78. 10/03 -- WBC down to 15.33. cr 3.49 Afebrile. MRI more c/f possible cellulitis. No osteo or abscess noted. 10/04 WBC 11.5. cr 3.74. Per d/w team, marked decrease in hand edema after starting steroids; ?Possible gout Recommendations: Continue Cefepime 1 g IV q12h ( crcl 23.9) for ?PNA coverage and SSTI covera ge. Anticipate a 7 day course of abx. Discontinued Daptomycin Complete Doxycycline 100 mg po BID until 10/06 ( 7 days for SSTI coverage, received 5 d for ?Pna); restarted Monitor cr ID will sign off. Call with questions. D/w hospitalist Terese Brandon MD, MPH Infectious Disease [facility], [facility] Call [phone] with questions Admission and Anticipated Discharge Date Admission Date: September 30, 2024 Subjective This patient recommendation is based on a telemedicine consult request which was completed asynchronously through chart review and information provided by the primary physician. The patient was not seen or examined today. The evaluation is consultative in nature and all patient care and treatment decisions can either be accepted or rejected by the patient's primary hospital-based treating physician using their own independent medical judgment for their patient. Time Spent Reviewing Chart: 31+ minutes Less hand swelling with steroids. Results & Data Vital Signs (Past 12 Hours) Vital Signs Temp Pulse Pulse Resp BP Pulse Ox O2 Del Method 10/04/24 15:51 36.4 C L 78 17 101/48 L 98 Room Air 10/04/24 15:27 78 10/04/24 12:07 36.8 C 77 20 105/63 99 Room Air 10/04/24 08:46 36.4 C L 87 18 164/84 H 99 Room Air 10/04/24 08:00 84 Laboratory Results Short CBC 10/04/24 Range/Units 06:45 WBC 11.85 H (4.8-10.8) K/ul Hgb 8.6 L (14.0-18.0) g/dl Hct 26.8 L (42.0-52.0) % Plt Count 267 (130-400) K/uL BMP 10/04/24 06:45 Sodium 124 L Potassium 5.0 Chloride 94 L Carbon Dioxide 21 BUN 86 H Creatinine 3.74 H Glucose 120 H Calcium 8.7 Diagnostic Findings Microbiology 09/30/24 02:06 Blood Aerobic Blood Culture - Preliminary No growth in Aerobic bottle after 48 hours. 09/30/24 02:06 Blood Anaerobic Blood Culture - Preliminary No growth in Anaerobic bottle after 48 hours. 09/30/24 02:06 Blood Aerobic Blood Culture - Preliminary No growth in Aerobic bottle after 48 hours. 09/30/24 02:06 Blood Anaerobic Blood Culture - Preliminary No growth in Anaerobic bottle after 48 hours. Finger X-Ray 10/01/24 18:49 Clinical History: Swelling. Index finger infection 3 views of the right and a finger are submitted for review. Findings: There is some cortical and subcortical lucency involving the tuft of the index finger distal phalanx No subluxation or dislocation is seen. No other osseous abnormality is identified. There are no radiopaque foreign bodies. Impression: Possible osteomyelitis involving the tuft of the right index finger distal phalanx Electronically signed by Milton Mcgraw 10-01-2024 7:42 PM Hand X-Ray 10/01/24 18:49 Clinical History: Swelling. Index finger infection 6 views of the right hand are submitted for review. Findings: There is sclerosis and deformity of the lunate. This could be due to chronic avascular necrosis or an old fracture. No clear acute fracture is seen. There is some cortical and subcortical lucency involving the tuft of the index finger distal phalanx No subluxation or dislocation is seen. There is mild osteoarthritis of the thumb carpometacarpal joint. No other osseous abnormality is identified. There are no radiopaque foreign bodies. There are extensive vascular calcifications Impression: 1. Possible osteomyelitis involving the tuft of the right index finger distal phalanx 2. Sclerosis and deformity of the lunate that could be due to chronic avascular necrosis or old trauma Electronically signed by Milton Mcgraw 10-01-2024 7:28 PM Venous Doppler Study 10/01/24 18:49 EXAM: US venous doppler UE RT CLINICAL HISTORY: RT FOREARM AND HAND SWELLING. TECHNIQUE: Ultrasound examination of right upper extremity veins was performed in real-time and duplex. One or more of the following were performed- spectral analysis, resistive index, waveform analysis, and pulsed Doppler. COMPARISON: None. FINDINGS: An echogenic wall-adherent thrombus is seen within the right internal jugular vein with partial compressibility. Normal phasic, non-pulsatile, and spontaneous flow is noted in the right subclavian, axillary, brachial, basilic, antecubital, radial, and ulnar veins. Visualized veins of the right upper extremity demonstrate normal compressibility. No sonographic evidence of acute deep vein thrombosis (DVT) is detected in the visualized veins of the upper extremity. Compression and Augmentation: All evaluated veins compress fully with applied transducer pressure. Augmentation of venous flow is noted with distal compression. Additional Findings: The right cephalic vein is not visualized at the site of the IV line. Edema of the right anterior forearm is noted. IMPRESSION: 1. An echogenic wall-adherent thrombus is seen within the right internal jugular vein with partial compressibility. 2. The right cephalic vein is not visualized at the site of the IV line, most likely thrombosed. 3. Edema of the right anterior forearm is noted. 4. Please correlate clinically. Disclaimer: DVT could be missed early in the disease when clot burden is minimal. For patients with moderate and high pretest probability of DVT and negative ultrasound, the [employer] clinical guidelines recommend testing with a D-dimer assay or repeat ultrasound in 5-7 days. If symptoms worsen, the Society of radiologists in ultrasound recommends repeating ultrasound even earlier. Electronically signed by Giuseppe Real 10-02-2024 04:42 AM Hand MRI 10/03/24 14:27 MR hand RT wo con CLINICAL HISTORY: right hand swelling,index finger ?OM on xray TECHNIQUE: Multisequence, multiplanar MR images of the right hand were obtained without contrast COMPARISON: Comparison is made to abdomen radiograph 10/01/2024 FINDINGS: No evidence of acute fracture. No bony edema is seen. No joint effusion is seen. Diffuse soft tissue edema is seen. No drainable fluid collection. IMPRESSION: Diffuse soft tissue edema compatible with cellulitis without evidence of abscess or osteomyelitis. ACT 112: Negative or not required by law. Electronically signed by: Chris Serra M.D. 10/03/2024 12:32 PM Medications Administered Home Medications Medication Instructions Recorded Confirmed Last Taken mycophenolate mofetil 250 mg 500 mg (2 x 250 mg) PO BID #360 05/29/20 09/30/24 09/12/24 capsule caps amoxicillin 500 mg capsule 2,000 mg PO DIRECTED PRN PRIOR 07/29/20 09/30/24 Unknown TO DENTAL PROCEDURES multivitamin 1 tab PO QAM 08/02/21 09/30/24 09/12/24 folic acid 1 mg tablet 1 mg PO BID #180 tabs 09/20/23 09/30/24 09/12/24 pantoprazole 40 mg tablet,delayed 40 mg PO BID #180 tabs 12/06/23 09/30/2409/12 release calcium carbonate 500 mg PO QAM 01/21/24 09/30/24 09/12/24 ferrous sulfate 325 mg (65 mg 325 mg PO BID #60 tabs 02/05/24 09/30/24 09/12/24 iron) tablet metoprolol succinate 100 mg 100 mg PO HS #90 tabs 04/22/24 09/30/24 09/12/24 tablet,extended release 24 hr acyclovir 400 mg tablet 400 mg PO BID 05/07/24 09/30/24 09/12/24 ondansetron 4 mg disintegrating 4 mg PO Q8 PRN nausea #20 tabs 05/22/24 09/30/24 Unknown tablet magnesium oxide 500 mg PO BID 08/09/24 09/30/24 09/12/24 albuterol sulfate 90 mcg/actuation 2 inh inhalation Q6H PRN shortness 08/25/24 09/30/24 Unknown aerosol inhaler of breath or wheezing #8.5 grams tacrolimus 1 mg capsule, 1 - 2 mg PO UD 08/30/24 09/30/24 09/12/24 immediate-release danazol 200 mg capsule 200 mg PO BID 09/13/24 09/30/24 09/12/24 metoprolol succinate 25 mg 25 mg PO QAM #30 tabs 09/20/24 09/30/24 Unknown tablet,extended release 24 hr allopurinol 100 mg tablet 100 mg PO BID 09/24/24 09/30/24 Unknown prednisone 5 mg tablet 5 mg PO QDB 09/24/24 09/30/24 Unknown bumetanide 1 mg tablet 1 mg PO DAILY Fluid Retention #90 09/27/24 09/30/24 Unknown tabs levothyroxine 125 mcg tablet 125 mcg PO QAM #90 tabs 09/27/24 09/30/24 Unknown Active Medications Generic Name Dose Route Start Last Admin Trade Name Freq PRN Reason Stop Dose Admin Acetaminophen 650 mg 09/30/24 03:37 10/04/24 11:39 Acetaminophen 325 Mg Tab PO 10/30/24 03:36 650 mg Q6H PRN Administration Pain & Pre PT Acyclovir 200 mg 10/02/24 21:00 10/04/24 08:03 Acyclovir 400 Mg Tab PO 11/01/24 20:59 200 mg BID ESTEFANI Administration Allopurinol 100 mg 10/03/24 09:00 10/04/24 08:01 Allopurinol 100 Mg Tab PO 11/02/24 08:59 100 mg DAILY ESTEFANI Administration Calcium Carbonate 1 tab 09/30/24 09:00 10/04/24 08:03 Calcium Carbonate 1250mg Tab PO 10/30/24 08:59 1 tab QAM ESTEFANI Administration Danazol 200 mg 09/30/24 09:00 10/04/24 08:04 Danazol 200 Mg Cap PO 10/30/24 08:59 200 mg BID ESTEFANI Administration Ferrous Sulfate 325 mg 09/30/24 08:00 10/04/24 08:01 Ferrous Sulfate 325 Mg Tab PO 10/30/24 07:59 325 mg BIDM ESTEFANI Administration Folic Acid 1 mg 09/30/24 09:00 10/04/24 08:03 Folic Acid 1 Mg Tab PO 10/30/24 08:59 1 mg BID ESTEFANI Administration Daptomycin 500 mg/ Syringe 10 mls @ 5 mls/min 10/02/24 06:15 10/04/24 06:21 IV 10/09/24 06:14 5 mls/min Q48H ESTEFANI Administration Protocol Cefepime HCl 1,000 mg in 10 mls @ 5 mls/min 10/02/24 14:00 10/04/24 14:51 Maxipime 2000mg IV 10/07/24 00:00 5 mls/min Q12H ESTEFANI Administration Protocol Levothyroxine Sodium 125 mcg 09/30/24 06:30 10/04/24 06:18 Levothyroxine Sodium 125 Mcg Tablet PO 10/30/24 06:29 125 mcg DAILYBB ESTEFANI Administration Magnesium Oxide 400 mg 09/30/24 09:00 10/04/24 08:04 Magnesium Oxide 400 Mg Tab PO 10/30/24 08:59 400 mg BID ESTEFANI Administration Metoprolol Succinate 100 mg 09/30/24 21:00 10/03/24 20:04 Metoprolol Succ 50mg Ext Rel Tab PO 10/30/24 20:59 100 mg HS ESTEFANI Administration Metoprolol Succinate 25 mg 09/30/24 09:00 10/04/24 08:03 Metoprolol Succ 25mg Ext Rel Tab PO 10/30/24 08:59 25 mg QAM ESTEFANI Administration Multivitamins 1 tab 09/30/24 09:00 10/04/24 08:04 Multivitamin Tab PO 10/30/24 08:59 1 tab QAM ESTEFANI Administration Mycophenolate Mofetil 500 mg 09/30/24 09:00 10/04/24 08:04 Mycophenolate Mofetil 250 Mg Cap PO 10/30/24 08:59 500 mg BID ESTEFANI Administration Ondansetron HCl 4 mg 09/30/24 13:06 10/01/24 07:47 Ondansetron Inj 2 Mg/Ml 2 Ml Vial IV 10/30/24 13:05 4 mg Q6H PRN Administration Nausea And Vomiting Pantoprazole Sodium 40 mg 09/30/24 09:00 10/04/24 08:03 Pantoprazole 40 Mg Tab PO 10/30/24 08:59 40 mg BID ESTEFANI Administration Prednisone 40 mg 10/03/24 17:30 10/04/24 08:04 Prednisone 20 Mg Tab PO 11/02/24 17:29 40 mg QAM ESTEFANI Administration Rivaroxaban 15 mg 10/03/24 18:45 10/04/24 08:04 Rivaroxaban 15 Mg Tab PO 10/24/24 18:44 15 mg BID ESTEFANI Administration Sodium Bicarbonate 1,300 mg 10/03/24 10:30 10/04/24 08:04 Sodium Bicarbonate 650 Mg Tab PO 11/02/24 10:29 1,300 mg BID ESTEFANI Administration Sodium Zirconium Cyclosilicate 10 gm 10/01/24 11:00 10/04/24 11:40 Sodium Zirconium Cyclosilicate 10 Gm Packet PO 10/31/24 10:59 10 gm DAILY@1100 ESTEFANI Administration Tacrolimus 2 mg 09/30/24 09:00 10/04/24 08:04 Tacrolimus 1 Mg Cap PO 10/30/24 08:59 2 mg QAM ESTEFANI Administration Tacrolimus 1 mg 09/30/24 21:00 10/03/24 20:07 Tacrolimus 1 Mg Cap PO 10/30/24 20:59 1 mg HS ESTEFANI Administration
[2024-10-04] MEDS: DOXYCYCLINE HYCLATE 100 MG CAP PO SCH (23:11)
[2024-10-05 07:57] LABS: Hematocrit (blood only) 28.1 % (42.0-52.0); Hemoglobin 9.1 g/dl (14.0-18.0); Mean Corpuscular Hemoglobin 33.7 pg (25.0-34.0); Mean Corpuscular Hgb Conc 32.4 g/dL (32.0-36.0); Mean Corpuscular Volume 104.1 fL (80.0-100.0); Platelet Count 277 K/uL (130-400); RDW Coefficient of Variation 17.3 % (11.5-14.5); RDW Standard Deviation 64.2 fL (36.4-46.3); White Blood Count 9.09 K/ul (4.8-10.8)
[2024-10-05 08:12] LABS: BUN Creatinine Ratio 23.6 (10-20); Calcium 8.9 mg/dl (8.6-10.3); Creatinine Clr Calc Pharmacy 22.6 ml/min; Magnesium 2.1 mg/dl (1.7-2.4); Potassium 5.2 mmol/L (3.5-5.1)
[2024-10-05 08:41] LABS: Immature Granulocytes % (auto) 0.7 %; Lymphocytes % (auto) 1.3 %; Monocytes % (auto) 7.8 %; Neutrophils % (auto) 90.2 %
[2024-10-05 08:42] LABS: Immature Granulocytes # (auto) 0.06 K/uL (0.01-0.20); Lymphocytes # (auto) 0.12 K/uL (1.20-3.40); Monocytes # (auto) 0.71 K/uL (0.11-0.59); Polychromasia 1+
--- NOTE | 2024-10-05 10:36 | Nephrology Progress Note ---
Date of Service October 05, 2024 Assessment & Plan (1) Acute on chronic heart failure with preserved ejection fraction (HFpEF): Plan: * 07/11 echocardiogram: LVEFnormal, moderate concentric LVH, RVSP 30-40 mmHg, severe dilation of RA, IVC mildly dilated * Difficult situation. Patient appears to have pulmonary hypertension with right-sided heart failure. Aggressive diuresis results and progressive KRISSY * Hold loop diuretic * Will provide 0.5 L 0.9 NS IV x 1 today * Monitor UO, BMP (2) Acute kidney injury: Plan: * AKIATN secondary to cellulitis/sepsis and hemodynamic changes related to IVIG infusion * Urine microscopy revealed granular casts c/w ATN * Transplant US this admission was negative for obstruction. Transplant renal artery was patent * Patient remains in injury phase of KRISSY * Patient is nonoliguric. UO last 24 hours 751 cc * Clinically he appears euvolemic to mildly volume contracted. He has only trace lower extremity swelling. Lungs are CTA * No acute indication for HD at this time. * Will check urine sodium, creatinine and provide 0.5 L NS IV x 1 * Will check CXR * Continue Lokelma for management of hyperkalemia * Patient has mild hyponatremia. Maintain free water restriction and NaHCO3 twice daily * Allopurinol dose reduced to 100 mg daily this AM. Acyclovir reduced to 200 mg twice daily. Medications are otherwise appropriate for kidney function. Monitor CK on daptomycin. (3) Kidney transplant status, living unrelated donor: Plan: * Baseline creatinine 1.9-2.3 mg/dL. Continue MMF + tacrolimus as Rx. (4) Infiltrate of lower lobe of right lung present on imaging study: Plan: * Will obtain follow-up CXR in a.m. (5) Infection of finger: Plan: * MRI reveals cellulitis. Patient remains on cefepime + doxycycline (6) Warm autoimmune hemolytic anemia: Plan: * Management as per hematology * IVIG completed. Remains on hydrocortisone. 1 u PRBC transfusion support provided 10/02. (7) Rhinovirus infection: Admission and Anticipated Discharge Date Admission Date: September 30, 2024 Subjective Mr. Mandel was evaluated in his hospital room this morning. At the time of my evaluation he was lying flat in bed breathing comfortably on room air. He denied dyspnea, angina or uremic symptoms. He reports that the cellulitis involving his right index finger infection has markedly improved. Review of Systems Constitutional: no fever Eyes: no problem reported Ear, Nose, Mouth, Throat: no problem reported Respiratory: no cough and no dyspnea Cardiovascular: no chest pain Gastrointestinal: no abdominal pain, no nausea, no vomiting and no diarrhea/loose stools Genitourinary: no dysuria, no urinary hesitancy or no hematuria Integumentary: + erythema (R index finger) Physical Exam Constitutional: not in distress Eyes: PERRL, conjunctivae normal, anicteric sclerae ENMT: external ear and nose normal, oropharynx normal Neck: trachea midline, no thyromegaly Respiratory: normal respiratory effort, lungs clear to auscultation Cardiovascular: Rate/Rhythm: regular rate and regular rhythm Extremities: + edema (Trace to 1+ pretibial pitting edema) Gastrointestinal (Abdomen): normal bowel sounds, soft, nontender, no hepatosplenomegaly Musculoskeletal: Extremities: no cyanosis and no clubbing Skin: no rashes, warm and dry Neurologic: awake; not confused Results & Data Vital Signs (Past 12 Hours) Vital Signs Temp Pulse Pulse Resp BP Pulse Ox O2 Del Method 10/05/24 08:20 36.4 C L 84 18 125/59 L 98 Room Air 10/05/24 07:30 75 10/05/24 03:41 36.6 C 91 H 21 133/75 96 Room Air 10/04/24 23:14 77 10/04/24 22:40 36.5 C 86 19 126/79 97 Room Air Laboratory Results Laboratory Results - last 24 hr 10/01/24 10/05/24 12:54 07:12 WBC 9.09 RBC 2.70 L Hgb 9.1 L Hct 28.1 L MCV 104.1 H MCH 33.7 MCHC 32.4 RDW Std Deviation 64.2 H RDW Coeff of Jaye 17.3 H Plt Count 277 MPV 10.0 Immature Gran % (Auto) 0.7 Neut % (Auto) 90.2 Lymph % (Auto) 1.3 [place] % (Auto) 7.8 Eos % (Auto) 0.0 Baso % (Auto) 0.0 Neut # (Auto) 8.20 H Lymph # (Auto) 0.12 L [place] # (Auto) 0.71 H Eos # (Auto) 0.00 Baso # (Auto) 0.00 Immature Gran # (Auto) 0.06 Polychromasia 1+ Sodium 126 L Potassium 5.2 H Chloride 94 L Carbon Dioxide 23 Anion Gap 9 BUN 94 H Creatinine 3.98 H Est Cr Clr Drug Dosing 22.6 eGFR 16.12 BUN/Creatinine Ratio 23.6 H Glucose 124 H Calcium 8.9 Magnesium 2.1 Crossmatch See Detail PG Care Time/CCT Total # of Minutes Spent Total Time Spent with Patient: Total time spent is greater than 50% in coordination of care (as documented) at patient's floor/unit and/or counseling patient: Coding Level of Care Code 13584 SUB INP/OBS CARE 3/50MIN Diagnoses Acute on chronic heart failure with preserved ejection fraction (HFpEF) I50.33 Acute kidney injury N17.9 Kidney transplant status, living unrelated donor Z94.0 Infiltrate of lower lobe of right lung present on imaging study R91.8 Infection of finger L08.9 Warm autoimmune hemolytic anemia D59.11 Rhinovirus infection B34.8
[2024-10-05] MEDS: SODIUM CHLORIDE 0.9% 500 ML IV SCH (11:34)
--- NOTE | 2024-10-05 17:52 | Hospitalist Progress Note ---
Date of Service October 05, 2024 Assessment & Plan (1) Rhinovirus infection: (2) Pneumonia: (3) Acute kidney injury: (4) Acute on chronic heart failure with preserved ejection fraction (HFpEF): (5) Acute DVT (deep venous thrombosis): Plan 63-year-old male with past medical history significant for HFpEF, A-fib, ESRD, warm autoimmune hemolytic anemia, ESRD s/p renal transplant now with CKD stage III-IV, presents with increased dizziness, weakness, fatigue, and worsening SOB/STOCK. Symptom onset ~ 3 days prior to admission but acutely worsening the day of arrival. With increased BLE edema, BNP elevated in the 500s which is increased from his baseline. Found to have Entero/Rhinovirus and PNA on CXR with septic shock. #Entero/Rhinovirus/Sepsis with shock/Adrenal insufficiency-With associated N/V and significant hypotension with BPs in 70s systolic on admission. With leuk ocytosis, minimally elevated procalcitonin, and CXR w/ new ill-defined infiltrate of R lung base. Leukocytosis worsened secondary to stress to steroids and now resolved. BPs normalized and weaning off stress steroids -continue treating for PNA with Cefepime, doxycycline x 7 day course-last day of therapy 10/06 -Blood pressures improved with stress dose steroids with IV hydrocortisone- switched to prednisone 40mg po daily and taper back to home dose of 5mg over the next week -Supportive care; acetaminophen prn for fever/pain -Not on supplemental O2 -Follow chest imaging to resolution in 4-6 weeks #KRISSY/CKD stage 4/Status-post renal transplant/Hyperkalemia-with h/o FSGS + renal transplant 2009, follows with nephrology, most recent visit 09/27/24; Cr baseline 1.3-1.4; On CellCept + Prograf (trough 4-7) Received 1 dose of IV Lasix and 1 dose of Bumex 2 Mg p.o. 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 in setting of diuresis and right sided heart failure No need for urgent dialysis -Follow BMP, urine output, volume status -continue NaHCO3 for hyponatremia and met acidosis which is improving with Na+ now 126, HCO3 up to 23 #Warm autoimmune hemolytic anemia-Dx Jul 2023; Follows with hematology most recent visit 08/20/2024; IVIG; Velcade, danazol Hgb down to 7.5, d/w his [facility] Nurse who recommended IVIG and PRBC transfusion- PRBCs delayed due to needing blood from central blood bank in [place]-finally got PRBCs on 10/02 x 1 unit and received 2 days of IVIG Hgb now improved to 9.1 -Continue acyclovir but decreased dose to 200mg bid for renal dosing -Continue iron supplement and folic acid -continue danazol -Follow CBC -f/u with Heme after discharge for ongoing Velcade, IVIG #Right hand/index finger swelling/Acute Gout flare OM suspected on xray of hand/finger-right hand with significant swelling, not coming from IV site, with old infection in finger with skin at the fi ngertip-healing paronychia-seen by orthopedics and no surgical intervention needed for finger, suspects gout in wrist -MRI hand ordered and shows no OM or abscess, just cellulitis -treating with prednisone 40mg po daily and now much improved swelling and pain, less erythema of wrist. Was not likely cellulitis of hand/wrist/finger as initially suspected -continue elevation of hand -appreciate ID consult--> -still on abx for PNA but not likely needed for cellulitis-dc Dapto and just continue Cefepime and doxy for PNA #Right IJ DVT-With significant right hand and wrist swelling--> checked RUE venous Doppler which showed thrombus in the right internal jugular vein-started heparin drip - antiXA levels were subtherapeutic x 1 day on drip D/w Oncology--> started Xarelto He was on Xarelto previously for Afib but it has been on held for a while with his ongoing hemolytic anemia requiring transfusions He does not have any known chronic bleeding Suspect jugular DVT from multiple recent hospitalizations, known inflammatory conditions, will need permanent AC with Xarelto due to Afib regardless -continue Xarelto loading dose 15mg po bid x 21 days then will start 20mg po daily on 10/24/24 -follow CBC # Acute on chronic HFpEF-p/w worsening STOCK, weakness, and feeling as though he is "filling with fluid"; Volume overloaded on exam w/ 2+ pitting edema BLE, increase in baseline per patient. Minimal crackles in lung field bases, increased STOCK per patient. He has also increased from his prior admission (100.7 kg to 109 kg). Echo 07/14 LVEF 55 to 60%, RV mildly dilated, RA severely dilated, LA moderately dilated, mild AR, mild MR, RVSP 30 to 40 mmHg, mild concentric LVH noted, LV systolic function normal. BNP 597. CXR with infiltrate and CHF changes as above Gave IV lasix and increased po bumex as above but developed worsening KRISSY -Given low urine output and hypervolemia-was given Bumex 1 Mg IV daily x 3 days as per Nephro -[employer] continues to rise--> give NS 500mL x 1 on 10/05 as per Nephro -Continue Daily weights, I+Os; Low-sodium, fluid restricted diet (1200mL) -With flushing and chest pressure on the evening of 09/30-initially with myocardial demand ischemia with Troponin 48.1,50, 62, but then troponin now up to 361 but stable on repeat-likely from KRISSY -ECG with some lateral ST depressions mild change from previous, but chest pain resolved -continue metoprolol for rate control as BPs improved -Follow BMP, magnesium, replace electrolytes as needed #A-fib, permanent, rates now improved/controlled as able to give metoprolol with normalized BPs Previous history of Afib, DOAC deferred 2/2 acute anemia in past -now started Xarelto for DVT as well -continue metoprolol with hold parameters -continue tele monitoring #Sleep apnea- No CPAP at baseline #GERD- Protonix #Gout- Allopurinol reduced dose for renal dosing, with acute attack being treated with prednisone #Hypothyroidism- Levothyroxine Dispo: continued stay PCU, eventually to home vs SNF VTE Prophylaxis: SCDs, Xarelto Admission and Anticipated Discharge Date Admission Date: September 30, 2024 Subjective Pt reports ongoing pain in right hand but it just got worse after an IV site infiltrated into it today. Denies SOB. Is OOB to chair. No other complaints. Tele with Afib, rates in 80s Physical Exam Constitutional: WD/WN, vitals as above Respiratory: normal respiratory effort, lungs clear to auscultation (except a few rhonchi in right lower lung field) Cardiovascular: Rate/Rhythm: regular rate and + irregularly irregular Extremities: + edema (1+ pitting edema legs/feet bilat,right hand trace,much improved) Gastrointestinal (Abdomen): normal bowel sounds, soft, nontender, no hepatosplenomegaly Musculoskeletal: Extremities: + extremities abnormal to inspection (right index finger skin yellow color,hard,no erythema) Psychiatric: A+Ox3, euthymic affect Results & Data Results & Data Vital Signs (Past 12 Hours) Vital Signs Temp Pulse Pulse Resp BP Pulse Ox O2 Del Method 10/05/24 16:05 81 10/05/24 15:54 36.3 C L 77 19 119/56 L 99 Room Air 10/05/24 10:41 36.3 C L 78 18 136/71 95 Room Air 10/05/24 08:20 36.4 C L 84 18 125/59 L 98 Room Air 10/05/24 07:30 75 Laboratory Results CBC, BMP, mag reviewed blood cxs reviewed PG Care Time/CCT Total # of Minutes Spent Total Time Spent with Patient: Total time spent is greater than 50% in coordination of care (as documented) at patient's floor/unit and/or counseling patient: Coding Level of Care Code 95003 SUB INP/OBS CARE 3/50MIN Diagnoses Rhinovirus infection B34.8 Pneumonia J18.9 Laterality: left Lung location: lower lobe of lung Pneumonia type: due to unspecified organism Acute kidney injury N17.9 Acute on chronic heart failure with preserved ejection fraction (HFpEF) I50.33 Acute DVT (deep venous thrombosis) I82.409 (2) Pneumonia Laterality: left Lung location: lower lobe of lung Pneumonia type: due to unspecified organism Qualified Code(s): J18.9 - Pneumonia, unspecified organism
[2024-10-06 07:57] LABS: Hematocrit (blood only) 28.7 % (42.0-52.0); Hemoglobin 9.3 g/dl (14.0-18.0); Immature Granulocytes # (auto) 0.08 K/uL (0.01-0.20); Immature Granulocytes % (auto) 0.8 %; Lymphocytes # (auto) 0.19 K/uL (1.20-3.40); Lymphocytes % (auto) 1.9 %; Mean Corpuscular Hemoglobin 33.6 pg (25.0-34.0); Mean Corpuscular Hgb Conc 32.4 g/dL (32.0-36.0); Mean Corpuscular Volume 103.6 fL (80.0-100.0); Monocytes # (auto) 0.76 K/uL (0.11-0.59); Monocytes % (auto) 7.6 %; Neutrophils # (auto) 9.01 K/uL (1.40-6.50); Neutrophils % (auto) 89.7 %; Platelet Count 267 K/uL (130-400); RDW Coefficient of Variation 16.9 % (11.5-14.5); RDW Standard Deviation 61.9 fL (36.4-46.3); Red Blood Count 2.77 M/uL (4.70-6.10); White Blood Count 10.04 K/ul (4.8-10.8)
[2024-10-06 08:22] LABS: BUN Creatinine Ratio 25.9 (10-20); Calcium 8.9 mg/dl (8.6-10.3); Creatinine Clr Calc Pharmacy 21.9 ml/min; Magnesium 2.1 mg/dl (1.7-2.4); Potassium 5.1 mmol/L (3.5-5.1)
--- NOTE | 2024-10-06 08:35 | Nephrology Progress Note ---
Date of Service October 06, 2024 Assessment & Plan (1) Acute on chronic heart failure with preserved ejection fraction (HFpEF): Plan: * 07/11 echocardiogram: LVEFnormal, moderate concentric LVH, RVSP 30-40 mmHg, severe dilation of RA, IVC mildly dilated * Difficult situation. Patient appears to have pulmonary hypertension with right-sided heart failure. Aggressive diuresis results and progressive KRISSY * Hold loop diuretic * Monitor UO, BMP (2) Acute kidney injury: Plan: * AKIATN secondary to cellulitis/sepsis and hemodynamic changes related to IVIG infusion * Urine microscopy revealed granular casts c/w ATN * Transplant US this admission was negative for obstruction. Transplant renal artery was patent * Patient remains in injury phase of KRISSY * Clinically he appears euvolemic to mildly volume contracted. He has only trace lower extremity swelling. Lungs are CTA * CXR without overt CHF * Patient is nonoliguric. UO last 24 hours 751 cc * Will provide 1 L 0.9 NS * No acute indication for [employer] at this time. This may become necessary if kidney function fails to stabilize w/ conservative measures * Continue Lokelma for management of hyperkalemia * Patient has mild hyponatremia. Maintain free water restriction and NaHCO3 twice daily (3) Kidney transplant status, living unrelated donor: Plan: * Baseline creatinine 1.9-2.3 mg/dL. Continue MMF + tacrolimus as Rx. (4) Infiltrate of lower lobe of right lung present on imaging study: Plan: * CXR - RML consolidation, CMG, congestive changes (5) Infection of finger: Plan: * MRI reveals cellulitis. Patient remains on cefepime + doxycycline (6) Warm autoimmune hemolytic anemia: Plan: * Management as per hematology * IVIG completed. Remains on hydrocortisone. 1 u PRBC transfusion support provided 10/02. (7) Rhinovirus infection: Admission and Anticipated Discharge Date Admission Date: September 30, 2024 Subjective Mr. Mandel was evaluated in his hospital room this morning. At the time of my evaluation he was lying flat in bed breathing comfortably on room air. He denied dyspnea, angina or uremic symptoms. He voiced no new medical concerns Review of Systems Constitutional: no fever Eyes: no problem reported Ear, Nose, Mouth, Throat: no problem reported Respiratory: no cough and no dyspnea Cardiovascular: no chest pain Gastrointestinal: no abdominal pain, no nausea, no vomiting and no diarrh ea/loose stools Genitourinary: no dysuria, no urinary hesitancy or no hematuria Integumentary: + erythema (R index finger) Physical Exam Constitutional: not in distress Eyes: PERRL, conjunctivae normal, anicteric sclerae ENMT: external ear and nose normal, oropharynx normal Neck: trachea midline, no thyromegaly Respiratory: normal respiratory effort, lungs clear to auscultation Cardiovascular: Rate/Rhythm: regular rate and regular rhythm Extremities: + edema (Trace to 1+ pretibial pitting edema) Gastrointestinal (Abdomen): normal bowel sounds, soft, nontender, no hepatosplenomegaly Musculoskeletal: Extremities: no cyanosis and no clubbing Skin: no rashes, warm and dry Neurologic: awake; not confused Results & Data Vital Signs (Past 12 Hours) Vital Signs Temp Pulse Pulse Resp BP Pulse Ox O2 Del Method 10/06/24 08:04 36.4 C L 81 19 137/44 L 100 Room Air 10/06/24 04:36 36.8 C 79 18 148/58 H 99 Room Air 10/05/24 23:49 36.6 C 80 18 121/56 L 98 Room Air 10/05/24 22:48 73 Laboratory Results Laboratory Results - last 24 hr 10/05/24 10/05/24 10/06/24 07:12 11:45 07:25 WBC 10.04 RBC 2.77 L Hgb 9.3 L Hct 28.7 L MCV 103.6 H MCH 33.6 MCHC 32.4 RDW Std Deviation 61.9 H RDW Coeff of Jaye 16.9 H Plt Count 267 MPV 10.0 Immature Gran % (Auto) 0.7 0.8 Neut % (Auto) 90.2 89.7 Lymph % (Auto) 1.3 1.9 [place] % (Auto) 7.8 7.6 Eos % (Auto) 0.0 0.0 Baso % (Auto) 0.0 0.0 Neut # (Auto) 8.20 H 9.01 H Lymph # (Auto) 0.12 L 0.19 L [place] # (Auto) 0.71 H 0.76 H Eos # (Auto) 0.00 0.00 Baso # (Auto) 0.00 0.00 Immature Gran # (Auto) 0.06 0.08 Polychromasia 1+ Sodium 126 L Potassium 5.1 Chloride 94 L Carbon Dioxide 23 Anion Gap 9 BUN 106 H Creatinine 4.10 H Est Cr Clr Drug Dosing 21.9 eGFR 15.56 BUN/Creatinine Ratio 25.9 H Glucose 126 H Calcium 8.9 Magnesium 2.1 Total Creatine Kinase 26 L Ur Random Creatinine 84.0 Ur Random Sodium 16 Laboratory Results WBC 10.04 K/ul (4.8-10.8) 10/06/24 07:25 RBC 2.77 M/uL (4.70-6.10) L 10/06/24 07:25 Hgb 9.3 g/dl (14.0-18.0) L 10/06/24 07:25 Hct 28.7 % (42.0-52.0) L 10/06/24 07:25 MCV 103.6 fL (80.0-100.0) H 10/06/24 07:25 MCH 33.6 pg (25.0-34.0) 10/06/24 07:25 MCHC 32.4 g/dL (32.0-36.0) 10/06/24 07:25 RDW Std Deviation 61.9 fL (36.4-46.3) H 10/06/24 07:25 RDW Coeff of Jaye 16.9 % (11.5-14.5) H 10/06/24 07:25 Plt Count 267 K/uL (130-400) 10/06/24 07:25 MPV 10.0 fL (9.4-12.4) 10/06/24 07:25 Immature Gran % (Auto) 0.8 % 10/06/24 07:25 Neut % (Auto) 89.7 % 10/06/24 07:25 Lymph % (Auto) 1.9 % 10/06/24 07:25 [place] % (Auto) 7.6 % 10/06/24 07:25 Eos % (Auto) 0.0 % 10/06/24 07:25 Baso % (Auto) 0.0 % 10/06/24 07:25 Neut # (Auto) 9.01 K/uL (1.40-6.50) H 10/06/24 07:25 Lymph # (Auto) 0.19 K/uL (1.20-3.40) L 10/06/24 07:25 Valley # (Auto) 0.76 K/uL (0.11-0.59) H 10/06/24 07:25 Eos # (Auto) 0.00 K/uL (0.00-0.50) 10/06/24 07:25 Baso # (Auto) 0.00 K/uL (0.00-0.20) 10/06/24 07:25 Immature Gran # (Auto) 0.08 K/uL (0.01-0.20) 10/06/24 07:25 Polychromasia 1+ 10/05/24 07:12 Macrocytosis Present 10/04/24 06:45 ESR 81 mm/hr (0-20) H 10/03/24 02:35 PT 12.6 Seconds (9.0-12.0) H 10/02/24 07:37 INR 1.2 (0.9-1.1) H 10/02/24 07:37 APTT 31 Seconds (21-31) 10/02/24 07:37 PTT Ratio 1.2 10/02/24 07:37 Heparin Anti-Xa, Unfract < 0.10 IU/ml (0.3-0.7) L 10/03/24 12:13 Sodium 126 mmol/L (136-145) L 10/06/24 07:25 Potassium 5.1 mmol/L (3.5-5.1) 10/06/24 07:25 Chloride 94 mmol/L (98-107) L 10/06/24 07:25 Carbon Dioxide 23 mmol/L (21-32) 10/06/24 07:25 Anion Gap 9 (3-11) 10/06/24 07:25 BUN 106 mg/dl (6-23) H 10/06/24 07:25 Creatinine 4.10 mg/dl (0.6-1.4) H 10/06/24 07:25 Est Cr Clr Drug Dosing 21.9 ml/min 10/06/24 07:25 eGFR 15.56 10/06/24 07:25 BUN/Creatinine Ratio 25.9 (10-20) H 10/06/24 07:25 Glucose 126 mg/dl (70-99(Fasting)) H 10/06/24 07:25 Lactate 1.0 mmol/L (0.4-2.0) 09/30/24 02:06 Calcium 8.9 mg/dl (8.6-10.3) 10/06/24 07:25 Magnesium 2.1 mg/dl (1.7-2.4) 10/06/24 07:25 Total Bilirubin 1.2 mg/dl (0.2-1.0) H 10/03/24 02:35 AST 23 U/L (13-39) 10/03/24 04:05 ALT 18 U/L (7-52) 10/03/24 02:35 Alkaline Phosphatase 59 U/L (34-104) 10/03/24 02:35 Total Creatine Kinase 26 U/L (30-223) L 10/06/24 07:25 Troponin I High Sens 361.0 pg/ml (0-20) H* 10/02/24 02:13 C-Reactive Protein 25.18 mg/dl (0-0.5) H 10/03/24 02:35 B-Natriuretic Peptide 597 pg/ml (0-100) H 09/30/24 00:05 Total Protein 7.6 gm/dl (6.0-8.3) 10/03/24 02:35 Albumin 2.9 gm/dl (3.4-5.0) L 10/03/24 02:35 Globulin 4.7 gm/dl (2.5-4.0) H 10/03/24 02:35 Albumin/Globulin Ratio 0.6 (0.9-2) L 10/03/24 02:35 Procalcitonin 0.78 ng/ml (0-0.5) H 09/30/24 00:05 Urine Color Dark Yellow 09/30/24 00:11 Urine Appearance Cloudy (Clear) A 09/30/24 00:11 Urine pH 5.0 (4.5-7.5) 09/30/24 00:11 Ur Specific [place] 1.019 (1.000-1.030) 09/30/24 00:11 Urine Protein 1+ (Negative) H 09/30/24 00:11 Urine Glucose (UA) Negative (Negative) 09/30/24 00:11 Urine Ketones Trace (Negative) H 09/30/24 00:11 Urine Blood Negative (Negative) 09/30/24 00:11 Urine Nitrite Negative (Negative) 09/30/24 00:11 Urine Bilirubin 1+ (Negative) H 09/30/24 00:11 Urine Urobilinogen Negative (Negative) 09/30/24 00:11 Ur Leukocyte Esterase Trace (Negative) H 09/30/24 00:11 Urine WBC (Auto) 0-5 /hpf (0-5) 09/30/24 00:11 Urine RBC (Auto) 0-2 /hpf (0-2) 09/30/24 00:11 U Hyaline Cast (Auto) >20 /lpf (0-2) H 09/30/24 00:11 U Epithel Cells (Auto) 3-5 /hpf (0-2) H 09/30/24 00:11 Urine Bacteria (Auto) None Seen (None Seen) 09/30/24 00:11 Granular Casts Present /lpf (None Prsent) A 09/30/24 00:11 Ur Random Creatinine 84.0 mg/dl 10/05/24 11:45 Ur Random Sodium 16 mmol/L 10/05/24 11:45 Adenovirus (PCR) Not Detected (NotDetected) 09/30/24 00:06 B. pertussis DNA (PCR) Not Detected (NotDetected) 09/30/24 00:06 B.parapertussis DNA PCR Not Detected (NotDetected) 09/30/24 00:06 C. pneumoniae DNA (PCR) Not Detected (NotDetected) 09/30/24 00:06 Coronavirus OC43 (PCR) Not Detected (NotDetected) 09/30/24 00:06 Coronavirus HKU1 (PCR) Not Detected (NotDetected) 09/30/24 00:06 Coronavirus 229E (PCR) Not Detected (NotDetected) 09/30/24 00:06 SARS-CoV-2 (PCR) Not Detected (NotDetected) 09/30/24 00:06 Coronavirus NL63 (PCR) Not Detected (NotDetected) 09/30/24 00:06 Human Metapneumovir PCR Not Detected (NotDetected) 09/30/24 00:06 Influenza Type A (PCR) Not Detected (NotDetected) 09/30/24 00:06 Influenza Type B (PCR) Not Detected (NotDetected) 09/30/24 00:06 M. pneumoniae (PCR) Not Detected (NotDetected) 09/30/24 00:06 Parainfluenza 1 (PCR) Not Detected (NotDetected) 09/30/24 00:06 Parainfluenza 2 (PCR) Not Detected (NotDetected) 09/30/24 00:06 Parainfluenza 3 (PCR) Not Detected (NotDetected) 09/30/24 00:06 Parainfluenza 4 (PCR) Not Detected (NotDetected) 09/30/24 00:06 RSV (PCR) Not Detected (NotDetected) 09/30/24 00:06 Entero/Rhino (PCR) DETECTED (NotDetected) A 09/30/24 00:06 Blood Type A Positive 10/01/24 12:54 Antibody Screen POSITIVE A 10/01/24 12:54 Antibody Identification Auto Cold Agglutinin Auto Gil Agglutinin Anti-E 10/01/24 12:54 Antibody Identification Auto Cold Agglutinin Auto Gil Agglutinin Anti-E 10/01/24 12:54 Antibody Identification Auto Cold Agglutinin Auto Gil Agglutinin Anti-E 10/01/24 12:54 Antibody ID Referred 10/01/24 12:54 Antibody ID Comment Cancelled 10/01/24 12:54 Crossmatch See Detail 10/01/24 12:54 Impressions Renal Ultrasound 10/01/24 10:50 US renal transplant w dop HISTORY: 63 years-old Male KRISSY acute kidney injury with a renal transplant COMPARISON: CT 06/27/2024, ultrasound 01/21/2024. TECHNIQUE: Multiple real-time sonographic images of the kidneys were obtained assessing grayscale appearance, color and spectral flow FINDINGS: Right sioux kidney measures 6.9 cm in length and the left measures 5.1 cm. Both of these kidneys are atrophic with cortical thinning and increased parenchymal echogenicity. No hydronephrosis. Right pelvic transplanted kidney redemonstrated measuring 11.9 x 5.7 x 5.8 cm demonstrating no hydronephrosis or suspicious mass lesion. Low resistance waveforms in the transplanted right renal artery with peak systolic velocities measuring up to 41 cm/s. Possible nonobstructing right renal calculus measuring 3 mm. Patent transplanted renal vein. Resistive indices measure up to 0.8. Decompressed bladder. IMPRESSION: 1. Unremarkable appearance of the right renal transplant. 2. No significant stenosis or occlusion within the right transplant renal artery. 3. Atrophic sioux kidneys. ACT 112: Negative or not required by law. The above report was generated using voice recognition software. It may contain grammatical, syntax or spelling errors. Electronically signed by: Darion Garcia M.D. 10/01/2024 3:40 PM Finger X-Ray 10/01/24 18:49 Clinical History: Swelling. Index finger infection 3 views of the right and a finger are submitted for review. Findings: There is some cortical and subcortical lucency involving the tuft of the index finger distal phalanx No subluxation or dislocation is seen. No other osseous abnormality is identified. There are no radiopaque foreign bodies. Impression: Possible osteomyelitis involving the tuft of the right index finger distal phalanx Electronically signed by Milton Mcgraw 10-01-2024 7:42 PM Hand X-Ray 10/01/24 18:49 Clinical History: Swelling. Index finger infection 6 views of the right hand are submitted for review. Findings: There is sclerosis and deformity of the lunate. This could be due to chronic avascular necrosis or an old fracture. No clear acute fracture is seen. There is some cortical and subcortical lucency involving the tuft of the index finger distal phalanx No subluxation or dislocation is seen. There is mild osteoarthritis of the thumb carpometacarpal joint. No other osseous abnormality is identified. There are no radiopaque foreign bodies. There are extensive vascular calcifications Impression: 1. Possible osteomyelitis involving the tuft of the right index finger distal phalanx 2. Sclerosis and deformity of the lunate that could be due to chronic avascular necrosis or old trauma Electronically signed by Milton Mcgraw 10-01-2024 7:28 PM Venous Doppler Study 10/01/24 18:49 EXAM: US venous doppler UE RT CLINICAL HISTORY: RT FOREARM AND HAND SWELLING. TECHNIQUE: Ultrasound examination of right upper extremity veins was performed in real-time and duplex. One or more of the following were performed- spectral analysis, resistive index, waveform analysis, and pulsed Doppler. COMPARISON: None. FINDINGS: An echogenic wall-adherent thrombus is seen within the right internal jugular vein with partial compressibility. Normal phasic, non-pulsatile, and spontaneous flow is noted in the right subclavian, axillary, brachial, basilic, antecubital, radial, and ulnar veins. Visualized veins of the right upper extremity demonstrate normal compressibility. No sonographic evidence of acute deep vein thrombosis (DVT) is detected in the visualized veins of the upper extremity. Compression and Augmentation: All evaluated veins compress fully with applied transducer pressure. Augmentation of venous flow is noted with distal compression. Additional Findings: The right cephalic vein is not visualized at the site of the IV line. Edema of the right anterior forearm is noted. IMPRESSION: 1. An echogenic wall-adherent thrombus is seen within the right internal jugular vein with partial compressibility. 2. The right cephalic vein is not visualized at the site of the IV line, most likely thrombosed. 3. Edema of the right anterior forearm is noted. 4. Please correlate clinically. Disclaimer: DVT could be missed early in the disease when clot burden is minimal. For patients with moderate and high pretest probability of DVT and negative ultrasound, the [employer] clinical guidelines recommend testing with a D-dimer assay or repeat ultrasound in 5-7 days. If symptoms worsen, the Society of radiologists in ultrasound recommends repeating ultrasound even earlier. Electronically signed by Giuseppe Real 10-02-2024 04:42 AM Hand MRI 10/03/24 14:27 MR hand RT wo con CLINICAL HISTORY: right hand swelling,index finger ?OM on xray TECHNIQUE: Multisequence, multiplanar MR images of the right hand were obtained without contrast COMPARISON: Comparison is made to abdomen radiograph 10/01/2024 FINDINGS: No evidence of acute fracture. No bony edema is seen. No joint effusion is seen. Diffuse soft tissue edema is seen. No drainable fluid collection. IMPRESSION: Diffuse soft tissue edema compatible with cellulitis without evidence of abscess or osteomyelitis. ACT 112: Negative or not required by law. Electronically signed by: Chris Serra M.D. 10/03/2024 12:32 PM Chest X-Ray 10/06/24 06:00 EXAM: XR chest 1V portable CLINICAL HISTORY: INFILTRATE SDM/ADS TECHNIQUE: X-ray image of the chest obtained in 1 frontal projection. COMPARISON: Prior X-ray dated 09/30/2024 for comparison. FINDINGS: Pulmonary Parenchyma: Right middle lung zone opacity with air bronchogram. Unchanged prominent bilateral parahilar markings. No evidence of pleural effusion or pleural thickening. Heart and Mediastinum: Cardiomegaly. No mediastinal widening or masses. No hilar or mediastinal lymphadenopathy. Bony Thorax: Both shoulders ostaarthitic changes. Soft Tissues: Soft tissues overlying the chest wall are unremarkable. IMPRESSION: 1. Right middle lung zone opacity likely consolidation suggests clinical assessment and follow-up. (Increase opacity). 2. Cardiomegaly and pulmonary congestive changes. Electronically signed by Giuseppe Real 10-06-2024 09:26 AM PG Care Time/CCT Total # of Minutes Spent Total Time Spent with Patient: Total time spent is greater than 50% in coordination of care (as documented) at patient's floor/unit and/or counseling patient: Coding Level of Care Code 09361 SUB INP/OBS CARE 3/50MIN Diagnoses Acute on chronic heart failure with preserved ejection fraction (HFpEF) I50.33 Acute kidney injury N17.9 Kidney transplant status, living unrelated donor Z94.0 Infiltrate of lower lobe of right lung present on imaging study R91.8 Infection of finger L08.9 Warm autoimmune hemolytic anemia D59.11 Rhinovirus infection B34.8
--- NOTE | 2024-10-06 09:26 | XRay Report ---
EXAM: XR chest 1V portable CLINICAL HISTORY: INFILTRATE SDM/ADS TECHNIQUE: X-ray image of the chest obtained in 1 frontal projection. COMPARISON: Prior X-ray dated 09/30/2024 for comparison. FINDINGS: Pulmonary Parenchyma: Right middle lung zone opacity with air bronchogram. Unchanged prominent bilateral parahilar markings. No evidence of pleural effusion or pleural thickening. Heart and Mediastinum: Cardiomegaly. No mediastinal widening or masses. No hilar or mediastinal lymphadenopathy. Bony Thorax: Both shoulders ostaarthitic changes. Soft Tissues: Soft tissues overlying the chest wall are unremarkable. IMPRESSION: 1. Right middle lung zone opacity likely consolidation suggests clinical assessment and follow-up. (Increase opacity). 2. Cardiomegaly and pulmonary congestive changes. Electronically signed by Giuseppe Real 10-06-2024 09:26 AM
[2024-10-06] MEDS: SODIUM CHLORIDE 0.9% 1,000 ML IV SCH (11:14)
--- NOTE | 2024-10-06 18:32 | Hospitalist Progress Note ---
Date of Service October 06, 2024 Assessment & Plan (1) Rhinovirus infection: (2) Pneumonia: (3) Acute kidney injury: (4) Acute on chronic heart failure with preserved ejection fraction (HFpEF): (5) Acute DVT (deep venous thrombosis): Plan 63-year-old male with past medical history significant for HFpEF, A-fib, ESRD, warm autoimmune hemolytic anemia, ESRD s/p renal transplant now with CKD stage III-IV, presents with increased dizziness, weakness, fatigue, and worsening SOB/STOCK. Symptom onset ~ 3 days prior to admission but acutely worsening the day of arrival. With increased BLE edema, BNP elevated in the 500s which is increased from his baseline. Found to have Entero/Rhinovirus and PNA on CXR with septic shock. #Entero/Rhinovirus/Sepsis with shock/Adrenal insufficiency-With associated N/V and significant hypotension with BPs in 70s systolic on admission. With leukocytosis, minimally elevated procalcitonin, and CXR w/ new ill-defined infiltrate of R lung base. Leukocytosis worsened secondary to stress to steroids and now resolved. BPs n ormalized and weaning off stress steroids -continue treating for PNA with Cefepime, doxycycline x 7 day course-last day of therapy 10/06 -Blood pressures improved with stress dose steroids with IV hydrocortisone- switched to prednisone 40mg po daily and taper back to home dose of 5mg over the next week -Supportive care; acetaminophen prn for fever/pain -Not on supplemental O2 -Follow chest imaging to resolution in 4-6 weeks #KRISSY/CKD stage 4/Status-post renal transplant/Hyperkalemia-with h/o FSGS + renal transplant 2009, follows with nephrology, most recent visit 09/27/24; Cr baseline 1.3-1.4; On CellCept + Prograf (trough 4-7) Received 1 dose of IV Lasix and 1 dose of Bumex 2 Mg p.o. x 1 on admission which was then held for significant hypotension UA cloudy, 1+ protein, trace ketones, 1+ bilirubin, trace LE, hyaline cast, epithelial cells, and granular casts Cr 1.86 on admission and continues to rise daily now further up to 4.10 with hyperkalemia and relatively lower urine output --> likely ATN/KRISSY from hypotension from sepsis and adrenal insufficiency on admission With significant hypervolemia now improved with gentle IV diuresis with Bumex as per Nephrology Nephrology ordered additional 1 L 0.9 NS No need for urgent dialysis. This may become necessary if kidney function continues to worsen -Follow BMP, urine output, volume status -continue NaHCO3 for hyponatremia and met acidosis which is improving with Na+ now 126, HCO3 23 #Warm autoimmune hemolytic anemia-Dx Jul 2023; Follows with hematology most recent visit 08/20/2024; IVIG; Velcade, danazol Hgb down to 7.5, d/w his Machine Rigger who recommended IVIG and PRBC transfusion- PRBCs delayed due to needing blood from central blood bank in [place]-finally got PRBCs on 10/02 x 1 unit and received 2 days of IVIG Hgb now improved to 9.1 -Continue acyclovir but decreased dose to 200mg bid for renal dosing -Continue iron supplement and folic acid -continue danazol -Follow CBC -f/u with Heme after discharge for ongoing Velcade, IVIG #Right hand/index finger swelling/Acute Gout flare OM suspected on xray of hand/finger-right hand with significant swelling, not coming from IV site, with old infection in finger with skin at the fingertip-healing paronychia-seen by orthopedics and no surgical intervention needed for finger, suspects gout in wrist -MRI hand ordered and shows no OM or abscess, just cellulitis -treating with prednisone 40mg po daily and now much improved swelling and pain, less erythema of wrist. Was not likely cellulitis of hand/wrist/finger as initially suspected -continue elevation of hand -appreciate ID consult--> -still on abx for PNA but not likely needed for cellulitis-dc Dapto and just continue Cefepime and doxy for PNA #Right IJ DVT-With significant right hand and wrist swelling--> checked RUE venous Doppler which showed thrombus in the right internal jugular vein-started heparin drip - antiXA levels were subtherapeutic x 1 day on drip D/w Oncology--> started Xarelto He was on Xarelto previously for Afib but it has been on held for a while with his ongoing hemolytic anemia requiring transfusions He does not have any known chronic bleeding Suspect jugular DVT from multiple recent hospitalizations, known inflammatory conditions, will need permanent AC with Xarelto due to Afib regardless -continue Xarelto loading dose 15mg po bid x 21 days then will start 20mg po daily on 10/24/24 -follow CBC # Acute on chronic HFpEF-p/w worsening STOCK, weakness, and feeling as though he is "filling with fluid"; Volume overloaded on exam w/ 2+ pitting edema BLE, increase in baseline per patient. Minimal crackles in lung field bases, increased STOCK per patient. He has also increased from his prior admission (100.7 kg to 109 kg). Echo 07/14 LVEF 55 to 60%, RV mildly dilated, RA severely dilated, LA moderately dilated, mild AR, mild MR, RVSP 30 to 40 mmHg, mild concentric LVH noted, LV systolic function normal. BNP 597. CXR with infiltrate and CHF changes as above Gave IV lasix and increased po bumex as above but developed worsening KRISSY -Given low urine output and hypervolemia-was given Bumex 1 Mg IV daily x 3 days as per Nephro -Dog Food Dough Mixer continues to rise--> give NS 500mL x 1 on 10/05 as per Nephro -Continue Daily weights, I+Os; Low-sodium, fluid restricted diet (1200mL) -With flushing and chest pressure on the evening of 09/30-initially with myocardial demand ischemia with Troponin 48.1,50, 62, but then troponin now up to 361 but stable on repeat-likely from KRISSY -ECG with some lateral ST depressions mild change from previous, but chest pain resolved -continue metoprolol for rate control as BPs improved -Follow BMP, magnesium, replace electrolytes as needed #A-fib, permanent, rates now improved/controlled as able to give metoprolol with normalized BPs Previous history of Afib, DOAC deferred 2/2 acute anemia in past -now started Xarelto for DVT as well -continue metoprolol with hold parameters -continue tele monitoring #Sleep apnea- No CPAP at baseline #GERD- Protonix #Gout- Allopurinol reduced dose for renal dosing, with acute attack being treated with prednisone #Hypothyroidism- Levothyroxine Dispo: continued stay PCU, eventually to home vs SNF VTE Prophylaxis: SCDs, Xarelto Admission and Anticipated Discharge Date Admission Date: September 30, 2024 Supervising Physician Co-Signing Physician Notes Attending Attestation - Chart reviewed, care plan d/w MASON Valderrama. I agree w/ the swanson components of her documentation. Complex gentleman with rhinovirus, a.fib, warm autoimmune hemolytic anemia, adrenal crisis, right 2nd finger infection, CHF, KRISSY in the setting of renal transplant status, IJ DVT. Fortunately vitals are stable but renal function continues to worsen which is highly concerning. Appreciate nephrology assistance and recs for his KRISSY. Arian Moy MD Subjective Patient seen and evaluated at bedside. He reports some ongoing discomfort in his right wrist. Denies any shortness of breath. He denies any acute complaints or concerns otherwise. Physical Exam Physical Exam: General: No acute distress, nondiaphoretic, well-developed, well-nourished. Cardiac: Atrial fibrillation in the 70s. No murmurs noted. 1+ nonpitting edema in lower extremities bilaterally. Pulm: Clear to auscultation bilaterally without wheezes, rales or rhonchi. No respiratory distress. 100% on room air. Abdominal: Soft, nontender, nondistended. Bowel sounds present. Neuro: A&O x3. No focal neurological deficits. Extremities: Right index finger with hardened yellow skin on the tip of the finger, no erythema, no drainage. Results & Data Results & Data Vital Signs (Past 12 Hours) Vital Signs Temp Pulse Pulse Resp BP BP Pulse Ox 10/06/24 15:44 97.2 F L 74 16 120/77 100 10/06/24 13:58 78 10/06/24 11:44 74 19 123/75 100 10/06/24 10:00 81 10/06/24 08:04 97.5 F L 81 19 137/44 L 100 O2 Del Method 10/06/24 15:44 Room Air 10/06/24 13:58 10/06/24 11:44 Room Air 10/06/24 10:00 10/06/24 08:04 Room Air Laboratory Results Reviewed CBC with differential Reviewed BMP/chemistries PG Care Time/CCT Total # of Minutes Spent Total Time Spent with Patient: Total time spent is greater than 50% in coordination of care (as documented) at patient's floor/unit and/or counseling patient: Coding Level of Care Code 41578 SUB INP/OBS CARE 3/50MIN Diagnoses Rhinovirus infection B34.8 Pneumonia J18.9 Laterality: left Lung location: lower lobe of lung Pneumonia type: due to unspecified organism Acute kidney injury N17.9 Acute on chronic heart failure with preserved ejection fraction (HFpEF) I50.33 Acute DVT (deep venous thrombosis) I82.409 (2) Pneumonia Laterality: left Lung location: lower lobe of lung Pneumonia type: due to unspecified organism Qualified Code(s): J18.9 - Pneumonia, unspecified organism
[2024-10-07 07:22] LABS: Hematocrit (blood only) 28.3 % (42.0-52.0); Hemoglobin 9.3 g/dl (14.0-18.0); Mean Corpuscular Hemoglobin 34.2 pg (25.0-34.0); Mean Corpuscular Hgb Conc 32.9 g/dL (32.0-36.0); Platelet Count 252 K/uL (130-400); RDW Coefficient of Variation 17.2 % (11.5-14.5); RDW Standard Deviation 61.8 fL (36.4-46.3); Red Blood Count 2.72 M/uL (4.70-6.10); White Blood Count 10.38 K/ul (4.8-10.8)
[2024-10-07 07:55] LABS: BUN Creatinine Ratio 25.1 (10-20); Calcium 8.9 mg/dl (8.6-10.3); Creatinine Clr Calc Pharmacy 20.5 ml/min; Potassium 5.2 mmol/L (3.5-5.1)
[2024-10-07 07:57] LABS: Basophils # (auto) 0.01 K/uL (0.00-0.20); Basophils % (auto) 0.1 %; Immature Granulocytes # (auto) 0.09 K/uL (0.01-0.20); Immature Granulocytes % (auto) 0.9 %; Lymphocytes # (auto) 0.16 K/uL (1.20-3.40); Lymphocytes % (auto) 1.5 %; Monocytes # (auto) 0.61 K/uL (0.11-0.59); Monocytes % (auto) 5.9 %; Neutrophils # (auto) 9.51 K/uL (1.40-6.50); Neutrophils % (auto) 91.6 %
--- NOTE | 2024-10-07 09:54 | Nephrology Progress Note ---
Date of Service October 07, 2024 Assessment & Plan (1) Acute on chronic heart failure with preserved ejection fraction (HFpEF): Plan: * 07/11 echocardiogram: LVEFnormal, moderate concentric LVH, RVSP 30-40 mmHg, severe dilation of RA, IVC mildly dilated * Difficult situation. Patient appears to have pulmonary hypertension with right-sided heart failure. Aggressive diuresis results and progressive KRISSY * Hold loop diuretic * Monitor UO, BMP (2) Acute kidney injury: Plan: * AKIATN secondary to cellulitis/sepsis and hemodynamic changes related to IVIG infusion * Urine microscopy revealed granular casts c/w ATN * Transplant US this admission was negative for obstruction. Transplant renal artery was patent * Patient remains in injury phase of KRISSY * Clinically he appears euvolemic to mildly volume contracted. He has only trace lower extremity swelling. Lungs are CTA * CXR without overt CHF * Patient is nonoliguric. UO last 24 hours 751 cc * Encourage oral hydration * If kidney function fails to stabilize within next 48 hours, may need to consider PRIMARY MONTESSORI TEACHER. Patient does have functional AVF in place * Continue low K diet and Lokelma for management of hyperkalemia * Patient has mild hyponatremia. Maintain free water restriction and NaHCO3 twice daily (3) Kidney transplant status, living unrelated donor: Plan: * Baseline creatinine 1.9-2.3 mg/dL. Continue MMF + tacrolimus as Rx. (4) Infiltrate of lower lobe of right lung present on imaging study: Plan: * CXR - RML consolidation, CMG, congestive changes (5) Infection of finger: Plan: * MRI reveals cellulitis. Patient remains on cefepime + doxycycline (6) Warm autoimmune hemolytic anemia: Plan: * Management as per hematology * IVIG completed. Remains on hydrocortisone. 1 u PRBC transfusion support provided 10/02. (7) Rhinovirus infection: Admission and Anticipated Discharge Date Admission Date: September 30, 2024 Subjective Mr. Mandel was evaluated in his hospital room this morning. At the time of my evaluation he was lying flat in bed breathing comfortably on room air. He denied dyspnea, angina or uremic symptoms. He voiced no new medical concerns Review of Systems Constitutional: no fever Eyes: no problem reported Ear, Nose, Mouth, Throat: no problem reported Respiratory: no cough and no dyspnea Cardiovascular: no chest pain Gastrointestinal: no abdominal pain, no nausea, no vomiting and no diarrhea/loose stools Genitourinary: no dysuria, no urinary hesitancy or no hematuria Integumentary: + erythema (R index finger) Physical Exam Constitutional: not in distress Eyes: PERRL, conjunctivae normal, anicteric sclerae ENMT: external ear and nose normal, oropharynx normal Neck: trachea midline, no thyromegaly Respiratory: normal respiratory effort, lungs clear to auscultation Cardiovascular: Rate/Rhythm: regular rate and regular rhythm Extremities: + edema (Trace to 1+ pretibial pitting edema) Gastrointestinal (Abdomen): normal bowel sounds, soft, nontender, no hepatosplenomegaly Musculoskeletal: Extremities: no cyanosis and no clubbing Skin: no rashes, warm and dry Neurologic: awake; not confused Results & Data Vital Signs (Past 12 Hours) Vital Signs Temp Pulse Pulse Resp BP Pulse Ox O2 Del Method 10/07/24 08:00 75 10/07/24 07:21 36.4 C L 80 18 138/82 98 Room Air 10/07/24 03:29 36.8 C 77 18 124/73 96 Room Air 10/06/24 23:31 36.8 C 79 18 135/74 97 Room Air Laboratory Results Laboratory Results - last 24 hr 10/07/24 06:57 WBC 10.38 RBC 2.72 L Hgb 9.3 L Hct 28.3 L MCV 104.0 H MCH 34.2 H MCHC 32.9 RDW Std Deviation 61.8 H RDW Coeff of Jaye 17.2 H Plt Count 252 MPV 10.0 Immature Gran % (Auto) 0.9 Neut % (Auto) 91.6 Lymph % (Auto) 1.5 [place] % (Auto) 5.9 Eos % (Auto) 0.0 Baso % (Auto) 0.1 Neut # (Auto) 9.51 H Lymph # (Auto) 0.16 L [place] # (Auto) 0.61 H Eos # (Auto) 0.00 Baso # (Auto) 0.01 Immature Gran # (Auto) 0.09 Sodium 128 L Potassium 5.2 H Chloride 96 L Carbon Dioxide 24 Anion Gap 8 BUN 110 H Creatinine 4.38 H Est Cr Clr Drug Dosing 20.5 eGFR 14.37 BUN/Creatinine Ratio 25.1 H Glucose 136 H Calcium 8.9 PG Care Time/CCT Total # of Minutes Spent Total Time Spent with Patient: Total time spent is greater than 50% in coordination of care (as documented) at patient's floor/unit and/or counseling patient: Coding Level of Care Code 35255 SUB INP/OBS CARE 350MIN Diagnoses Acute on chronic heart failure with preserved ejection fraction (HFpEF) I50.33 Acute kidney injury N17.9 Kidney transplant status, living unrelated donor Z94.0 Infiltrate of lower lobe of right lung present on imaging study R91.8 Infection of finger L08.9 Warm autoimmune hemolytic anemia D59.11 Rhinovirus infection B34.8
--- NOTE | 2024-10-07 16:49 | Hospitalist Progress Note ---
Date of Service October 07, 2024 Assessment & Plan (1) Rhinovirus infection: (2) Pneumonia: (3) Acute kidney injury: (4) Acute on chronic heart failure with preserved ejection fraction (HFpEF): (5) Acute DVT (deep venous thrombosis): Plan 63-year-old male with past medical history significant for HFpEF, A-fib, ESRD, warm autoimmune hemolytic anemia, ESRD s/p renal transplant now with CKD stage III-IV, presents with increased dizziness, weakness, fatigue, and worsening SOB/STOCK. Symptom onset ~ 3 days prior to admission but acutely worsening the day of arrival. With increased BLE edema, BNP elevated in the 500s which is increased from his baseline. Found to have Entero/Rhinovirus and PNA on CXR with septic shock. #Entero/Rhinovirus/Sepsis with shock/Adrenal insufficiency-With associated N/V and significant hypotension with BPs in 70s systolic on admission. With leukocytosis, minimally elevated procalcitonin, and CXR w/ new ill-defined infiltrate of R lung base. Leukocytosis worsened secondary to stress to steroids and now resolved. BPs n ormalized and weaning off stress steroids -Completed treatment for PNA with Cefepime, doxycycline x 7 day course -Blood pressures improved with stress dose steroids with IV hydrocortisone- switched to prednisone 40mg po daily and taper back to home dose of 5mg over this week -Supportive care; acetaminophen prn for fever/pain -Not on supplemental O2 -Follow chest imaging to resolution in 4-6 weeks #KRISSY/CKD stage 4/Status-post renal transplant/Hyperkalemia-with h/o FSGS + renal transplant 2009, follows with nephrology, most recent visit 09/27/24; Cr baseline 1.3-1.4; On CellCept + Prograf (trough 4-7) Received 1 dose of IV Lasix and 1 dose of Bumex 2 Mg p.o. x 1 on admission which was then held for significant hypotension UA cloudy, 1+ protein, trace ketones, 1+ bilirubin, trace LE, hyaline cast, epithelial cells, and granular casts Cr 1.86 on admission and continues to rise daily now further up to 4.4 with hyperkalemia and relatively lower urine output --> likely ATN/KRISSY from hypotension from sepsis and adrenal insufficiency on admission With significant hypervolemia now improved with gentle IV diuresis with Bumex as per Nephrology Nephrology on board No need for urgent dialysis. This may become necessary if kidney function continues to worsen or no improvement in the next 2 days -Follow BMP, urine output, volume status -continue NaHCO3 for hyponatremia and met acidosis which is improving with Na+ now 126, HCO3 23 #Warm autoimmune hemolytic anemia-Dx Jul 2023; Follows with hematology most recent visit 08/20/2024; IVIG; Velcade, danazol Hgb down to 7.5, d/w his Coffee Grinder who recommended IVIG and PRBC transfusion- PRBCs delayed due to needing blood from central blood bank in [place]-finally got PRBCs on 10/02 x 1 unit and received 2 days of IVIG Hgb now improved to 9.1 -Continue acyclovir but decreased dose to 200mg bid for renal dosing -Continue iron supplement and folic acid -continue danazol -Follow CBC -f/u with Heme after discharge for ongoing Velcade, IVIG #Right hand/index finger swelling/Acute Gout flare OM suspected on xray of hand/finger-right hand with significant swelling, not coming from IV site, with old infection in finger with skin at the fingertip-healing paronychia-seen by orthopedics and no surgical intervention needed for finger, suspects gout in wrist -MRI hand ordered and shows no OM or abscess, just cellulitis -treating with prednisone 40mg po daily and now much improved swelling and pain, less erythema of wrist. Was not likely cellulitis of hand/wrist/finger as initially suspected -continue elevation of hand -appreciate ID consult--> Completed antibiotic course for pneumonia. #Right IJ DVT-With significant right hand and wrist swelling--> checked RUE venous Doppler which showed thrombus in the right internal jugular vein-started heparin drip - antiXA levels were subtherapeutic x 1 day on drip D/w Oncology--> started Xarelto. Eliquis may be a safer plan given renal failure. Switch to Eliquis He was on Xarelto previously for Afib but it has been on held for a while with his ongoing hemolytic anemia requiring transfusions He does not have any known chronic bleeding Suspect jugular DVT from multiple recent hospitalizations, known inflammatory conditions, will need permanent AC due to Afib regardless -Initially started on Xarelto loading dose 15mg po bid x 21 days with plan to start 20mg po daily on 10/24/24. Switch to Eliquis today 10/07 -follow CBC # Acute on chronic HFpEF-p/w worsening STOCK, weakness, and feeling as though he is "filling with fluid"; Volume overloaded on exam w/ 2+ pitting edema BLE, increase in baseline per patient. Minimal crackles in lung field bases, increased STOCK per patient. He has also increased from his prior admission (100.7 kg to 109 kg). Echo 07/14 LVEF 55 to 60%, RV mildly dilated, RA severely dilated, LA moderately dilated, mild AR, mild MR, RVSP 30 to 40 mmHg, mild concentric LVH noted, LV systolic function normal. BNP 597. CXR with infiltrate and CHF changes as above Gave IV lasix and increased po bumex as above but developed worsening KRISSY -Given low urine output and hypervolemia-was given Bumex 1 Mg IV daily x 3 days as per Nephro -Sql Data Architect continues to rise--> give NS 500mL x 1 on 10/05 as per Nephro -Continue Daily weights, I+Os; Low-sodium, fluid restricted diet (1200mL) -With flushing and chest pressure on the evening of 09/30-initially with myocardial demand ischemia with Troponin 48.1,50, 62, but then troponin now up to 361 but stable on repeat-likely from KRISSY -ECG with some lateral ST depressions mild change from previous, but chest pain resolved -continue metoprolol for rate control as BPs improved -Follow BMP, magnesium, replace electrolytes as needed #A-fib, permanent, rates now improved/controlled as able to give metoprolol with normalized BPs Previous history of Afib, DOAC deferred 2/2 acute anemia in past -now started Xarelto for DVT as well -continue metoprolol with hold parameters -continue tele monitoring #Sleep apnea- No CPAP at baseline #GERD- Protonix #Gout- Allopurinol reduced dose for renal dosing, with acute attack being treated with prednisone #Hypothyroidism- Levothyroxine Dispo: continued stay PCU, eventually to home vs SNF VTE Prophylaxis: SCDs, Xarelto Admission and Anticipated Discharge Date Admission Date: September 30, 2024 Subjective Patient was seen and examined at 11:40 AM. He does not seem to have any major complaints. Feels well in general. Review of Systems Review of Systems: All systems reviewed & are unremarkable except as noted in Subjective Physical Exam Physical Exam: General: Awake, conversant Heart: S1, S2/regular rate and rhythm, no murmur rubs or gallops Lungs: Clear to auscultation bilaterally. Normal effort Abdomen: Soft/nontender/nondistended. No hepatosplenomegaly Extremities: No clubbing/cyanosis. 1-2+ pitting bilateral edema. Right upper extremity edema noted as well. Behavior: Appropriate, cooperative Results & Data Results & Data Vital Signs (Past 12 Hours) Vital Signs Temp Pulse Pulse Pulse Resp BP Pulse Ox 10/07/24 15:35 36.4 C L 71 18 130/84 100 10/07/24 14:29 72 10/07/24 12:00 36.3 C L 75 16 136/78 98 10/07/24 08:00 75 10/07/24 07:21 36.4 C L 80 18 138/82 98 O2 Del Method 10/07/24 15:35 Room Air 10/07/24 14:29 10/07/24 12:00 Room Air 10/07/24 08:00 10/07/24 07:21 Room Air Laboratory Results Abnormal lab results 10/07/24 Range/Units 06:57 RBC 2.72 L (4.70-6.10) M/uL Hgb 9.3 L (14.0-18.0) g/dl Hct 28.3 L (42.0-52.0) % MCV 104.0 H (80.0-100.0) fL MCH 34.2 H (25.0-34.0) pg RDW Std Deviation 61.8 H (36.4-46.3) fL RDW Coeff of Jaye 17.2 H (11.5-14.5) % Neut # (Auto) 9.51 H (1.40-6.50) K/uL Lymph # (Auto) 0.16 L (1.20-3.40) K/uL [place] # (Auto) 0.61 H (0.11-0.59) K/uL Sodium 128 L (136-145) mmol/L Potassium 5.2 H (3.5-5.1) mmol/L Chloride 96 L (98-107) mmol/L BUN 110 H (6-23) mg/dl Creatinine 4.38 H (0.6-1.4) mg/dl BUN/Creatinine Ratio 25.1 H (10-20) Glucose 136 H (70-99(Fasting)) mg/dl PG Care Time/CCT Total # of Minutes Spent Total Time Spent with Patient: Total time spent is greater than 50% in coordination of care (as documented) at patient's floor/unit and/or counseling patient: Coding Level of Care Code 69989 SUB INP/OBS CARE 2/35MIN Diagnoses Rhinovirus infection B34.8 Pneumonia J18.9 Laterality: left Lung location: lower lobe of lung Pneumonia type: due to unspecified organism Acute kidney injury N17.9 Acute on chronic heart failure with preserved ejection fraction (HFpEF) I50.33 Acute DVT (deep venous thrombosis) I82.409 (2) Pneumonia Laterality: left Lung location: lower lobe of lung Pneumonia type: due to unspecified organism Qualified Code(s): J18.9 - Pneumonia, unspecified organism
[2024-10-07] MEDS: APIXABAN 5 MG TABLET PO SCH (20:30)
[2024-10-08 07:15] LABS: Hematocrit (blood only) 29.1 % (42.0-52.0); Hemoglobin 9.4 g/dl (14.0-18.0); Mean Corpuscular Hemoglobin 33.7 pg (25.0-34.0); Mean Corpuscular Hgb Conc 32.3 g/dL (32.0-36.0); Mean Corpuscular Volume 104.3 fL (80.0-100.0); Mean Platelet Volume 10.1 fL (9.4-12.4); Nucleated RBC # (auto) 0.02 K/uL (0.00-0.12); Nucleated RBC % (auto) 0.2 %; Platelet Count 266 K/uL (130-400); RDW Coefficient of Variation 17.4 % (11.5-14.5); RDW Standard Deviation 62.3 fL (36.4-46.3); Red Blood Count 2.79 M/uL (4.70-6.10); White Blood Count 11.65 K/ul (4.8-10.8)
[2024-10-08 07:47] LABS: Calcium 8.9 mg/dl (8.6-10.3); Creatinine Clr Calc Pharmacy 20.1 ml/min
--- NOTE | 2024-10-08 10:50 | Nephrology Progress Note ---
Date of Service October 08, 2024 Assessment & Plan (1) Acute on chronic heart failure with preserved ejection fraction (HFpEF): Plan: * 07/11 echocardiogram: LVEFnormal, moderate concentric LVH, RVSP 30-40 mmHg, severe dilation of RA, IVC mildly dilated * Difficult situation. Patient appears to have pulmonary hypertension with right-sided heart failure. Aggressive diuresis results and progressive KRISSY * Hold loop diuretic * Monitor UO, BMP (2) Acute kidney injury: Plan: * AKIATN secondary to cellulitis/sepsis and hemodynamic changes related to IVIG infusion * Urine microscopy revealed granular casts c/w ATN * Transplant US this admission was negative for obstruction. Transplant renal artery was patent * Patient remains in injury phase of KRISSY * Clinically he appears euvolemic to mildly volume contracted. He has only trace lower extremity swelling. Lungs are CTA * CXR without overt CHF * Urine output is improving. UO 1326 last 24 hours * Hopeful that kidney function will stabilize. Although patient is azotemic, electrolyte balance remains acceptable. Hold HD today and reassess in am. Patient does have a functional AVF in place * Encourage oral hydration * Continue low K diet and Lokelma for management of hyperkalemia * Patient has mild hyponatremia. Maintain free water restriction and NaHCO3 twice daily (3) Kidney transplant status, living unrelated donor: Plan: * Baseline creatinine 1.9-2.3 mg/dL. Continue MMF + tacrolimus as Rx. (4) Infiltrate of lower lobe of right lung present on imaging study: Plan: * CXR - RML consolidation, CMG, congestive changes (5) Infection of finger: Plan: * MRI reveals cellulitis. Patient remains on cefepime + doxycycline (6) Warm autoimmune hemolytic anemia: Plan: * Management as per hematology * IVIG completed. Remains on hydrocortisone. 1 u PRBC transfusion support provided 10/02. (7) Rhinovirus infection: Admission and Anticipated Discharge Date Admission Date: September 30, 2024 Subjective Mr. Mandel was evaluated in his hospital room this morning. At the time of my evaluation he was lying flat in bed breathing comfortably on room air. He denied dyspnea, angina or uremic symptoms. He voiced no new medical concerns Review of Systems Constitutional: no fever Eyes: no problem reported Ear, Nose, Mouth, Throat: no problem reported Respiratory: no cough and no dyspnea Cardiovascular: no chest pain Gastrointestinal: no abdominal pain, no nausea, no vomiting and no diarrhea/loose stools Genitourinary: no dysuria, no urinary hesitancy or no hematuria Integumentary: + erythema (R index finger) Physical Exam Constitutional: not in distress Eyes: PERRL, conjunctivae normal, anicteric sclerae ENMT: external ear and nose normal, oropharynx normal Neck: trachea midline, no thyromegaly Respiratory: normal respiratory effort, lungs clear to auscultation Cardiovascular: Rate/Rhythm: regular rate and regular rhythm Extremities: + edema (Trace to 1+ pretibial pitting edema) Gastrointestinal (Abdomen): normal bowel sounds, soft, nontender, no hepatosplenomegaly Musculoskeletal: Extremities: no cyanosis and no clubbing Skin: no rashes, warm and dry Neurologic: awake; not confused Results & Data Vital Signs (Past 12 Hours) Vital Signs Temp Pulse Pulse Resp BP Pulse Ox O2 Del Method 10/08/24 10:39 Room Air 10/08/24 07:52 36.4 C L 74 18 130/84 98 Room Air 10/08/24 03:40 36.6 C 74 17 113/72 98 Room Air 10/07/24 23:00 36.6 C 80 16 113/76 97 Room Air Laboratory Results Laboratory Results - last 24 hr 10/08/24 06:28 WBC 11.65 H RBC 2.79 L Hgb 9.4 L Hct 29.1 L MCV 104.3 H MCH 33.7 MCHC 32.3 RDW Std Deviation 62.3 H RDW Coeff of Jaye 17.4 H Plt Count 266 MPV 10.1 Absolute Nucleated RBC 0.02 Nucleated RBC % (auto) 0.2 Sodium 129 L Potassium 5.0 Chloride 96 L Carbon Dioxide 23 Anion Gap 10 BUN 116 H Creatinine 4.47 H Est Cr Clr Drug Dosing 20.1 eGFR 14.02 BUN/Creatinine Ratio 26.0 H Glucose 116 H Calcium 8.9 PG Care Time/CCT Total # of Minutes Spent Total Time Spent with Patient: Total time spent is greater than 50% in coordination of care (as documented) at patient's floor/unit and/or counseling patient: Coding Level of Care Code 89254 SUB INP/OBS CARE 3/50MIN Diagnoses Acute on chronic heart failure with preserved ejection fraction (HFpEF) I50.33 Acute kidney injury N17.9 Kidney transplant status, living unrelated donor Z94.0 Infiltrate of lower lobe of right lung present on imaging study R91.8 Infection of finger L08.9 Warm autoimmune hemolytic anemia D59.11 Rhinovirus infection B34.8
--- NOTE | 2024-10-08 16:22 | Hospitalist Progress Note ---
Date of Service October 08, 2024 Assessment & Plan (1) Rhinovirus infection: (2) Pneumonia: (3) Acute kidney injury: (4) Acute on chronic heart failure with preserved ejection fraction (HFpEF): (5) Acute DVT (deep venous thrombosis): Plan 63-year-old male with past medical history significant for HFpEF, A-fib, ESRD, warm autoimmune hemolytic anemia, ESRD s/p renal transplant now with CKD stage III-IV, presents with increased dizziness, weakness, fatigue, and worsening SOB/STOCK. Symptom onset ~ 3 days prior to admission but acutely worsening the day of arrival. With increased BLE edema, BNP elevated in the 500s which is increased from his baseline. Found to have Entero/Rhinovirus and PNA on CXR with septic shock. #Entero/Rhinovirus/Sepsis with shock/Adrenal insufficiency-With associated N/V and significant hypotension with BPs in 70s systolic on admission. With leukocytosis, minimally elevated procalcitonin, and CXR w/ new ill-defined infiltrate of R lung base. Leukocytosis worsened secondary to stress to steroids and now resolved. BPs n ormalized and weaning off stress steroids -continue treating for PNA with Cefepime, doxycycline x 7 day course-last day of therapy 10/06 -Blood pressures improved with stress dose steroids with IV hydrocortisone- switched to prednisone 40mg po daily and taper back to home dose of 5mg over the next week -Supportive care; acetaminophen prn for fever/pain -Not on supplemental O2 -Follow chest imaging to resolution in 4-6 weeks #KRISSY/CKD stage 4/Status-post renal transplant/Hyperkalemia-with h/o FSGS + renal transplant 2009, follows with nephrology, most recent visit 09/27/24; Cr baseline 1.3-1.4; On CellCept + Prograf (trough 4-7) Received 1 dose of IV Lasix and 1 dose of Bumex 2 Mg p.o. x 1 on admission which was then held for significant hypotension UA cloudy, 1+ protein, trace ketones, 1+ bilirubin, trace LE, hyaline cast, epithelial cells, and granular casts Cr 1.86 on admission and continues to rise daily now further up to 4.10 with hyperkalemia and relatively lower urine output --> likely ATN/KRISSY from hypotension from sepsis and adrenal insufficiency on admission With significant hypervolemia now improved with gentle IV diuresis with Bumex as per Nephrology Nephrology on board No need for urgent dialysis. This may become necessary if kidney function continues to worsen -Follow BMP, urine output, volume status -continue NaHCO3 for hyponatremia and met acidosis which is improving #Warm autoimmune hemolytic anemia-Dx Jul 2023; Follows with hematology most recent visit 08/20/2024; IVIG; Velcade, danazol Hgb down to 7.5, d/w his Online User Experience Strategist who recommended IVIG and PRBC transfusion- PRBCs delayed due to needing blood from central blood bank in [place]-finally got PRBCs on 10/02 x 1 unit and received 2 days of IVIG Hgb now improved to 9.1 -Continue acyclovir but decreased dose to 200mg bid for renal dosing -Continue iron supplement and folic acid -continue danazol -Follow CBC -f/u with Heme after discharge for ongoing Velcade, IVIG #Right hand/index finger swelling/Acute Gout flare OM suspected on xray of hand/finger-right hand with significant swelling, not coming from IV site, with old infection in finger with skin at the fingertip-healing paronychia-seen by orthopedics and no surgical intervention needed for finger, suspects gout in wrist -MRI hand ordered and shows no OM or abscess, just cellulitis -treated with prednisone 40mg po daily for 5 days and now much improved swelling and pain, less erythema of wrist. Was not likely cellulitis of hand/wrist/finger as initially suspected -continue elevation of hand -appreciate ID consult #Right IJ DVT-With significant right hand and wrist swelling--> checked RUE venous Doppler which showed thrombus in the right internal jugular vein-started heparin drip - antiXA levels were subtherapeutic x 1 day on drip D/w Oncology--> started Xarelto He was on Xarelto previously for Afib but it has been on held for a while with his ongoing hemolytic anemia requiring transfusions He does not have any known chronic bleeding Suspect jugular DVT from multiple recent hospitalizations, known inflammatory conditions, will need permanent AC due to Afib regardless Switched from Xarelto to Eliquis since it is safer with renal failure -follow CBC # Acute on chronic HFpEF-p/w worsening STOCK, weakness, and feeling as though he is "filling with fluid"; Volume overloaded on exam w/ 2+ pitting edema BLE, increase in baseline per patient. Minimal crackles in lung field bases, increased STOCK per patient. He has also increased from his prior admission (100.7 kg to 109 kg). Echo 07/14 LVEF 55 to 60%, RV mildly dilated, RA severely dilated, LA moderately dilated, mild AR, mild MR, RVSP 30 to 40 mmHg, mild concentric LVH noted, LV systolic function normal. BNP 597. CXR with infiltrate and CHF changes as above Gave IV lasix and increased po bumex as above but developed worsening KRISSY -Given low urine output and hypervolemia-was given Bumex 1 Mg IV daily x 3 days as per Nephro -Player Piano Technician continues to rise--> give NS 500mL x 1 on 10/05 as per Nephro -Continue Daily weights, I+Os; Low-sodium, fluid restricted diet (1200mL) -With flushing and chest pressure on the evening of 09/30-initially with myocardial demand ischemia with Troponin 48.1,50, 62, but then troponin now up to 361 but stable on repeat-likely from KRISSY -ECG with some lateral ST depressions mild change from previous, but chest pain resolved -continue metoprolol for rate control as BPs improved -Follow BMP, magnesium, replace electrolytes as needed #A-fib, permanent, rates now improved/controlled as able to give metoprolol with normalized BPs Previous history of Afib, DOAC deferred 2/2 acute anemia in past -now started Eliquis for DVT as well -continue metoprolol with hold parameters -continue tele monitoring #Sleep apnea- No CPAP at baseline #GERD- Protonix #Gout- Allopurinol reduced dose for renal dosing, with acute attack being treated with prednisone #Hypothyroidism- Levothyroxine Dispo: continued stay PCU, eventually to home vs SNF VTE Prophylaxis: SCDs, Eliquis Admission and Anticipated Discharge Date Admission Date: September 30, 2024 Subjective Patient was seen at 12:55 PM. Denies chest pain or shortness of breath. Does not have any major complaints today. Review of Systems Review of Systems: All systems reviewed & are unremarkable except as noted in Subjective Physical Exam Physical Exam: General: Awake, conversant Heart: S1, S2/regular rate and rhythm, no murmur rubs or gallops Lungs: Clear to auscultation bilaterally. Normal effort Abdomen: Soft/nontender/nondistended. No hepatosplenomegaly Extremities: No clubbing/cyanosis. 1-2+ pitting bilateral edema. Right upper extremity edema noted but is improving Behavior: Appropriate, cooperative Results & Data Results & Data Vital Signs (Past 12 Hours) Vital Signs Temp Pulse Resp BP Pulse Ox O2 Del Method 10/08/24 15:20 36.3 C L 74 18 134/83 100 Room Air 10/08/24 11:13 36.4 C L 69 18 116/76 99 Room Air 10/08/24 10:39 Room Air 10/08/24 07:52 36.4 C L 74 18 130/84 98 Room Air Laboratory Results Abnormal lab results 10/08/24 Range/Units 06:28 WBC 11.65 H (4.8-10.8) K/ul RBC 2.79 L (4.70-6.10) M/uL Hgb 9.4 L (14.0-18.0) g/dl Hct 29.1 L (42.0-52.0) % MCV 104.3 H (80.0-100.0) fL RDW Std Deviation 62.3 H (36.4-46.3) fL RDW Coeff of Jaye 17.4 H (11.5-14.5) % Sodium 129 L (136-145) mmol/L Chloride 96 L (98-107) mmol/L BUN 116 H (6-23) mg/dl Creatinine 4.47 H (0.6-1.4) mg/dl BUN/Creatinine Ratio 26.0 H (10-20) Glucose 116 H (70-99(Fasting)) mg/dl PG Care Time/CCT Total # of Minutes Spent Total Time Spent with Patient: Total time spent is greater than 50% in coordination of care (as documented) at patient's floor/unit and/or counseling patient: Coding Level of Care Code 45572 SUB INP/OBS CARE 2MIN Diagnoses Rhinovirus infection B34.8 Pneumonia J18.9 Laterality: left Lung location: lower lobe of lung Pneumonia type: due to unspecified organism Acute kidney injury N17.9 Acute on chronic heart failure with preserved ejection fraction (HFpEF) I50.33 Acute DVT (deep venous thrombosis) I82.409 (2) Pneumonia Laterality: left Lung location: lower lobe of lung Pneumonia type: due to unspecified organism Qualified Code(s): J18.9 - Pneumonia, unspecified organism
[2024-10-09] MEDS: PROCHLORPERAZINE 10 MG in SYRINGE 8 ML IV PRN (08:01)
[2024-10-09 08:13] LABS: Hematocrit (blood only) 27.3 % (42.0-52.0); Hemoglobin 8.8 g/dl (14.0-18.0); Mean Corpuscular Hemoglobin 33.6 pg (25.0-34.0); Mean Corpuscular Hgb Conc 32.2 g/dL (32.0-36.0); Mean Corpuscular Volume 104.2 fL (80.0-100.0); Mean Platelet Volume 10.4 fL (9.4-12.4); Platelet Count 212 K/uL (130-400); RDW Coefficient of Variation 17.3 % (11.5-14.5); RDW Standard Deviation 63.4 fL (36.4-46.3); Red Blood Count 2.62 M/uL (4.70-6.10); White Blood Count 10.01 K/ul (4.8-10.8)
[2024-10-09 08:24] LABS: BUN Creatinine Ratio 29.2 (10-20); Calcium 8.9 mg/dl (8.6-10.3); Creatinine Clr Calc Pharmacy 20.9 ml/min; Potassium 4.9 mmol/L (3.5-5.1)
--- NOTE | 2024-10-09 08:29 | Nephrology Progress Note ---
Date of Service October 09, 2024 Assessment & Plan (1) Acute on chronic heart failure with preserved ejection fraction (HFpEF): Plan: * 07/11 echocardiogram: LVEFnormal, moderate concentric LVH, RVSP 30-40 mmHg, severe dilation of RA, IVC mildly dilated * Difficult situation. Patient appears to have pulmonary hypertension with right-sided heart failure. Aggressive diuresis results and progressive KRISSY * Hold loop diuretic * Monitor UO, BMP (2) Acute kidney injury: Plan: * KRISSY likely ATN secondary to cellulitis/sepsis and hemodynamic changes related to IVIG infusion * Urine microscopy revealed granular casts c/w ATN * Transplant US this admission was negative for obstruction. Transplant renal artery was patent * Kidney function appears to be stabilizing. Cr 4.3 this am. Expect improveme nt over next 24-48 hours * Although azotemic, patient is asymptomatic and without pericardial rub * Patient remains nonoliguric * Encourage oral hydration * Continue low K diet and Lokelma for management of hyperkalemia * Patient has mild hyponatremia. Maintain free water restriction and NaHCO3 twice daily * Monitor daily BMP, UO (3) Kidney transplant status, living unrelated donor: Plan: * Baseline creatinine 1.9-2.3 mg/dL. Continue MMF + tacrolimus as Rx. (4) Infiltrate of lower lobe of right lung present on imaging study: Plan: * CXR - RML consolidation, CMG, congestive changes (5) Infection of finger: Plan: * MRI reveals cellulitis. Patient remains on cefepime + doxycycline (6) Warm autoimmune hemolytic anemia: Plan: * Management as per hematology * IVIG completed. Remains on hydrocortisone. 1 u PRBC transfusion support provided 10/02. (7) Rhinovirus infection: Admission and Anticipated Discharge Date Admission Date: September 30, 2024 Subjective Mr. Mandel was evaluated in his hospital room this morning. At the time of my evaluation he was lying flat in bed breathing comfortably on room air. He denied dyspnea, angina or uremic symptoms. He voiced no new medical concerns Review of Systems Constitutional: no fever Eyes: no problem reported Ear, Nose, Mouth, Throat: no problem reported Respiratory: no cough and no dyspnea Cardiovascular: no chest pain Gastrointestinal: no abdominal pain, no nausea, no vomiting and no diarrhea/loose stools Genitourinary: no dysuria, no urinary hesitancy or no hematuria Integumentary: + erythema (R index finger) Physical Exam Constitutional: not in distress Eyes: PERRL, conjunctivae normal, anicteric sclerae ENMT: external ear and nose normal, oropharynx normal Neck: trachea midline, no thyromegaly Respiratory: normal respiratory effort, lungs clear to auscultation Cardiovascular: Rate/Rhythm: regular rate and regular rhythm Extremities: + edema (Trace to 1+ pretibial pitting edema) Gastrointestinal (Abdomen): normal bowel sounds, soft, nontender, no hepatosplenomegaly Musculoskeletal: Extremities: no cyanosis and no clubbing Skin: no rashes, warm and dry Neurologic: awake; not confused Results & Data Vital Signs (Past 12 Hours) Vital Signs Temp Pulse Pulse Resp BP Pulse Ox O2 Del Method 10/09/24 08:09 Room Air 10/09/24 07:36 36.4 C L 73 20 127/85 99 Room Air 10/09/24 03:40 36.6 C 81 18 110/83 97 Room Air 10/08/24 23:00 75 10/08/24 22:23 36.6 C 72 18 117/70 98 Room Air 10/08/24 20:43 Room Air Laboratory Results Laboratory Results - last 24 hr 10/09/24 07:35 WBC 10.01 RBC 2.62 L Hgb 8.8 L Hct 27.3 L MCV 104.2 H MCH 33.6 MCHC 32.2 RDW Std Deviation 63.4 H RDW Coeff of Jaye 17.3 H Plt Count 212 MPV 10.4 Sodium 128 L Potassium 4.9 Chloride 95 L Carbon Dioxide 25 Anion Gap 8 BUN 127 H Creatinine 4.35 H Est Cr Clr Drug Dosing 20.9 eGFR 14.49 BUN/Creatinine Ratio 29.2 H Glucose 110 H Calcium 8.9 Laboratory Results - last 24 hr 10/09/24 07:35 WBC 10.01 RBC 2.62 L Hgb 8.8 L Hct 27.3 L MCV 104.2 H MCH 33.6 MCHC 32.2 RDW Std Deviation 63.4 H RDW Coeff of Jaye 17.3 H Plt Count 212 MPV 10.4 Sodium 128 L Potassium 4.9 Chloride 95 L Carbon Dioxide 25 Anion Gap 8 BUN 127 H Creatinine 4.35 H Est Cr Clr Drug Dosing 20.9 eGFR 14.49 BUN/Creatinine Ratio 29.2 H Glucose 110 H Calcium 8.9 PG Care Time/CCT Total # of Minutes Spent Total Time Spent with Patient: Total time spent is greater than 50% in coordination of care (as documented) at patient's floor/unit and/or counseling patient: Coding Level of Care Code 88852 SUB INP/OBS CARE 3/50MIN Diagnoses Acute on chronic heart failure with preserved ejection fraction (HFpEF) I50.33 Acute kidney injury N17.9 Kidney transplant status, living unrelated donor Z94.0 Infiltrate of lower lobe of right lung present on imaging study R91.8 Infection of finger L08.9 Warm autoimmune hemolytic anemia D59.11 Rhinovirus infection B34.8
--- NOTE | 2024-10-09 15:10 | Hospitalist Progress Note ---
Date of Service October 09, 2024 Assessment & Plan (1) Rhinovirus infection: (2) Pneumonia: (3) Acute kidney injury: (4) Acute on chronic heart failure with preserved ejection fraction (HFpEF): (5) Acute DVT (deep venous thrombosis): Plan 63-year-old male with past medical history significant for HFpEF, A-fib, ESRD, warm autoimmune hemolytic anemia, ESRD s/p renal transplant now with CKD stage III-IV, presents with increased dizziness, weakness, fatigue, and worsening SOB/STOCK. Symptom onset ~ 3 days prior to admission but acutely worsening the day of arrival. With increased BLE edema, BNP elevated in the 500s which is increased from his baseline. Found to have Entero/Rhinovirus and PNA on CXR with septic shock. #KRISSY/CKD stage 4/Status-post renal transplant/Hyperkalemia-with h/o FSGS + renal transplant 2009, follows with nephrology, most recent visit 09/27/24; Cr baseline 1.3-1.4; On CellCept + Prograf (trough 4-7) Received 1 dose of IV Lasix and 1 dose of Bumex 2 Mg p.o. x 1 on admission which was then held for significant hypotension UA cloudy, 1+ protein, trace ketones, 1+ bilirubin, trace LE, hyaline cast, epithelial cells, and granular casts Cr 1.86 on admission Has been rising up to the fours range Today seems to have plateaued Expect recovery in the next few days With significant hypervolemia now improved with gentle IV diuresis with Bumex as per Nephrology Nephrology on board No need for urgent dialysis. This may become necessary if kidney function continues to worsen -Follow BMP, urine output, volume status -continue NaHCO3 for hyponatremia and met acidosis which is improving #Entero/Rhinovirus/Sepsis with shock/Adrenal insufficiency-With associated N/V and significant hypotension with BPs in 70s systolic on admission. With leukocytosis, minimally elevated procalcitonin, and CXR w/ new ill-defined infiltrate of R lung base. Leukocytosis worsened secondary to stress to steroids and now resolved. BPs normalized and weaning off stress steroids -continue treating for PNA with Cefepime, doxycycline x 7 day course-last day of therapy 10/06 -Blood pressures improved with stress dose steroids with IV hydrocortisone- switched to prednisone 40mg po daily and taper back to home dose of 5mg over the next week -Supportive care; acetaminophen prn for fever/pain -Not on supplemental O2 -Follow chest imaging to resolution in 4-6 weeks #Warm autoimmune hemolytic anemia-Dx Jul 2023; Follows with hematology most recent visit 08/20/2024; IVIG; Velcade, danazol Hgb down to 7.5, d/w his Play Therapist who recommended IVIG and PRBC transfusion- PRBCs delayed due to needing blood from central blood bank in [place]-finally got PRBCs on 10/02 x 1 unit and received 2 days of IVIG Hgb now improved to 9.1 -Continue acyclovir but decreased dose to 200mg bid for renal dosing -Continue iron supplement and folic acid -continue danazol -Follow CBC -f/u with Heme after discharge for ongoing Velcade, IVIG #Right hand/index finger swelling/Acute Gout flare OM suspected on xray of hand/finger-right hand with significant swelling, not coming from IV site, with old infection in finger with skin at the finger tip-healing paronychia-seen by orthopedics and no surgical intervention needed for finger, suspects gout in wrist -MRI hand ordered and shows no OM or abscess, just cellulitis -treated with prednisone 40mg po daily for 5 days and now much improved swelling and pain, less erythema of wrist. Was not likely cellulitis of hand/wrist/finger as initially suspected -continue elevation of hand -appreciate ID consult #Right IJ DVT-With significant right hand and wrist swelling--> checked RUE venous Doppler which showed thrombus in the right internal jugular vein-started heparin drip - antiXA levels were subtherapeutic x 1 day on drip D/w Oncology--> started Xarelto He was on Xarelto previously for Afib but it has been on held for a while with his ongoing hemolytic anemia requiring transfusions He does not have any known chronic bleeding Suspect jugular DVT from multiple recent hospitalizations, known inflammatory conditions, will need permanent AC due to Afib regardless Switched from Xarelto to Eliquis since it is safer with renal failure -follow CBC # Acute on chronic HFpEF-p/w worsening STOCK, weakness, and feeling as though he is "filling with fluid"; Volume overloaded on exam w/ 2+ pitting edema BLE, increase in baseline per patient. Minimal crackles in lung field bases, increased STOCK per patient. He has also increased from his prior admission (100.7 kg to 109 kg). Echo 07/14 LVEF 55 to 60%, RV mildly dilated, RA severely dilated, LA moderately dilated, mild AR, mild MR, RVSP 30 to 40 mmHg, mild concentric LVH noted, LV systolic function normal. BNP 597. CXR with infiltrate and CHF changes as above Gave IV lasix and increased po bumex as above but developed worsening KRISSY -Given low urine output and hypervolemia-was given Bumex 1 Mg IV daily x 3 days as per Nephro -Analysis Director continues to rise--> give NS 500mL x 1 on 10/05 as per Nephro -Continue Daily weights, I+Os; Low-sodium, fluid restricted diet (1200mL) -With flushing and chest pressure on the evening of 09/30-initially with myocardial demand ischemia with Troponin 48.1,50, 62, but then troponin now up to 361 but stable on repeat-likely from KRISSY -ECG with some lateral ST depressions mild change from previous, but chest pain resolved -continue metoprolol for rate control as BPs improved -Follow BMP, magnesium, replace electrolytes as needed #A-fib, permanent, rates now improved/controlled as able to give metoprolol with normalized BPs Previous history of Afib, DOAC deferred 2/2 acute anemia in past -now started Eliquis for DVT as well -continue metoprolol with hold parameters -continue tele monitoring #Sleep apnea- No CPAP at baseline #GERD- Protonix #Gout- Allopurinol reduced dose for renal dosing, with acute attack being treated with prednisone #Hypothyroidism- Levothyroxine Dispo: continued stay PCU, eventually to home vs SNF VTE Prophylaxis: SCDs, Eliquis Admission and Anticipated Discharge Date Admission Date: September 30, 2024 Subjective Patient was seen and examined at 10:55 AM. He has no complaints. Denies chest pain or shortness of breath. Review of Systems Review of Systems: All systems reviewed & are unremarkable except as noted in Subjective Physical Exam Physical Exam: General: Awake, conversant Heart: S1, S2/regular rate and rhythm, no murmur rubs or gallops Lungs: Clear to auscultation bilaterally. Normal effort Abdomen: Soft/nontender/nondistended. No hepatosplenomegaly Extremities: No clubbing/cyanosis. 1-2+ pitting bilateral edema. Right upper extremity edema noted but is improving Behavior: Appropriate, cooperative Results & Data Results & Data Vital Signs (Past 12 Hours) Vital Signs Temp Pulse Resp BP Pulse Ox O2 Del Method 10/09/24 10:44 36.3 C L 74 17 124/78 100 Room Air 10/09/24 08:09 Room Air 10/09/24 07:36 36.4 C L 73 20 127/85 99 Room Air 10/09/24 03:40 36.6 C 81 18 110/83 97 Room Air PG Care Time/CCT Total # of Minutes Spent Total Time Spent with Patient: Total time spent is greater than 50% in coordination of care (as documented) at patient's floor/unit and/or counseling patient: Coding Level of Care Code 99123 SUB INP/OBS CARE 2/35MIN Diagnoses Rhinovirus infection B34.8 Pneumonia J18.9 Laterality: left Lung location: lower lobe of lung Pneumonia type: due to unspecified organism Acute kidney injury N17.9 Acute on chronic heart failure with preserved ejection fraction (HFpEF) I50.33 Acute DVT (deep venous thrombosis) I82.409 (2) Pneumonia Laterality: left Lung location: lower lobe of lung Pneumonia type: due to unspecified organism Qualified Code(s): J18.9 - Pneumonia, unspecified organism
[2024-10-10 07:20] LABS: Hematocrit (blood only) 27.2 % (42.0-52.0); Hemoglobin 8.8 g/dl (14.0-18.0); Mean Corpuscular Hemoglobin 33.3 pg (25.0-34.0); Mean Corpuscular Hgb Conc 32.4 g/dL (32.0-36.0); Mean Platelet Volume 10.4 fL (9.4-12.4); Platelet Count 210 K/uL (130-400); RDW Coefficient of Variation 17.3 % (11.5-14.5); RDW Standard Deviation 62.1 fL (36.4-46.3); Red Blood Count 2.64 M/uL (4.70-6.10); White Blood Count 12.51 K/ul (4.8-10.8)
[2024-10-10 07:38] LABS: BUN Creatinine Ratio 30.8 (10-20); Calcium 8.9 mg/dl (8.6-10.3); Creatinine Clr Calc Pharmacy 22.7 ml/min; Potassium 4.3 mmol/L (3.5-5.1)
--- NOTE | 2024-10-10 08:29 | Nephrology Progress Note ---
Date of Service October 10, 2024 Assessment & Plan (1) Acute on chronic heart failure with preserved ejection fraction (HFpEF): Plan: * 07/11 echocardiogram: LVEFnormal, moderate concentric LVH, RVSP 30-40 mmHg, severe dilation of RA, IVC mildly dilated * Difficult situation. Patient appears to have pulmonary hypertension with right-sided heart failure. Aggressive diuresis results and progressive KRISSY * Hold loop diuretic * Monitor UO, BMP (2) Acute kidney injury: Plan: * KRISSY likely ATN secondary to cellulitis/sepsis and hemodynamic changes related to IVIG infusion * Urine microscopy revealed granular casts c/w ATN * Transplant US this admission was negative for obstruction. Transplant renal artery was patent * Now in recovery phase. Cr improved from 4.3-->3.9 this am * Although azotemic, patient is asymptomatic and without pericardial rub. He is nonoliguric. No acute indication for COMMUNITY SERVICES COORDINATOR at this time * Encourage oral hydration * Continue low K diet and Lokelma for management of hyperkalemia * Patient has mild hyponatremia. Maintain free water restriction and NaHCO3 twice daily * Monitor daily BMP, UO (3) Kidney transplant status, living unrelated donor: Plan: * Baseline creatinine 1.9-2.3 mg/dL. Continue MMF + tacrolimus as Rx. (4) Infiltrate of lower lobe of right lung present on imaging study: Plan: * CXR - RML consolidation, CMG, congestive changes (5) Infection of finger: Plan: * MRI reveals cellulitis. Patient remains on cefepime + doxycycline * New lesion on L middle finger. 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 Will order uric acid level. Patient may require steroid therapy (6) Warm autoimmune hemolytic anemia: Plan: * Management as per hematology * IVIG completed. Remains on hydrocortisone. 1 u PRBC transfusion support provided 10/02. (7) Rhinovirus infection: Admission and Anticipated Discharge Date Admission Date: September 30, 2024 Subjective Mr. Mandel was evaluated in his hospital room this morning. At the time of my evaluation he was lying flat in bed breathing comfortably on room air. He denied dyspnea, angina or uremic symptoms. His primary concern is a new painful nodule on the tip of his L middle finger Review of Systems Constitutional: no fever Eyes: no problem reported Ear, Nose, Mouth, Throat: no problem reported Respiratory: no cough and no dyspnea Cardiovascular: no chest pain Gastrointestinal: no abdominal pain, no nausea, no vomiting and no diarrhea/loose stools Genitourinary: no dysuria, no urinary hesitancy or no hematuria Integumentary: + erythema (R index finger) Physical Exam Constitutional: not in distress Eyes: PERRL, conjunctivae normal, anicteric sclerae ENMT: external ear and nose normal, oropharynx normal Neck: trachea midline, no thyromegaly Respiratory: normal respiratory effort, lungs clear to auscultation Cardiovascular: Rate/Rhythm: regular rate and regular rhythm Extremities: + edema (Trace to 1+ pretibial pitting edema) Gastrointestinal (Abdomen): normal bowel sounds, soft, nontender, no hepatosplenomegaly Musculoskeletal: Extremities: no cyanosis and no clubbing Skin: no rashes, warm and dry Neurologic: awake; not confused Results & Data Vital Signs (Past 12 Hours) Vital Signs Temp Pulse Pulse Resp BP Pulse Ox O2 Del Method 10/10/24 08:10 Room Air 10/10/24 08:00 36.7 C 85 20 135/83 95 Room Air 10/10/24 03:57 36.8 C 84 18 122/73 99 Room Air 10/09/24 22:59 70 Laboratory Results Laboratory Results - last 24 hr 10/10/24 06:52 WBC 12.51 H RBC 2.64 L Hgb 8.8 L Hct 27.2 L MCV 103.0 H MCH 33.3 MCHC 32.4 RDW Std Deviation 62.1 H RDW Coeff of Jaye 17.3 H Plt Count 210 MPV 10.4 Sodium 130 L Potassium 4.3 Chloride 96 L Carbon Dioxide 25 Anion Gap 9 BUN 123 H Creatinine 3.99 H D Est Cr Clr Drug Dosing 22.7 eGFR 16.07 BUN/Creatinine Ratio 30.8 H Glucose 102 H Calcium 8.9 PG Care Time/CCT Total # of Minutes Spent Total Time Spent with Patient: Total time spent is greater than 50% in coordination of care (as documented) at patient's floor/unit and/or counseling patient: Coding Level of Care Code 75948 SUB INP/OBS CARE 3/50MIN Diagnoses Acute on chronic heart failure with preserved ejection fraction (HFpEF) I50.33 Acute kidney injury N17.9 Kidney transplant status, living unrelated donor Z94.0 Infiltrate of lower lobe of right lung present on imaging study R91.8 Infection of finger L08.9 Warm autoimmune hemolytic anemia D59.11 Rhinovirus infection B34.8
[2024-10-10] MEDS: predniSONE 20 MG TAB PO SCH (12:25)
--- NOTE | 2024-10-10 14:47 | Hospitalist Progress Note ---
Date of Service October 10, 2024 Assessment & Plan (1) Rhinovirus infection: (2) Pneumonia: (3) Acute kidney injury: (4) Acute on chronic heart failure with preserved ejection fraction (HFpEF): (5) Acute DVT (deep venous thrombosis): Plan 63-year-old male with past medical history significant for HFpEF, A-fib, ESRD, warm autoimmune hemolytic anemia, ESRD s/p renal transplant now with CKD stage III-IV, presents with increased dizziness, weakness, fatigue, and worsening SOB/STOCK. Symptom onset ~ 3 days prior to admission but acutely worsening the day of arrival. With increased BLE edema, BNP elevated in the 500s which is increased from his baseline. Found to have Entero/Rhinovirus and PNA on CXR with septic shock. #KRISSY/CKD stage 4/Status-post renal transplant/Hyperkalemia-with h/o FSGS + renal transplant 2009, follows with nephrology, most recent visit 09/27/24; Cr baseline 1.3-1.4; On CellCept + Prograf (trough 4-7) Received 1 dose of IV Lasix and 1 dose of Bumex 2 Mg p.o. x 1 on admission which was then held for significant hypotension UA cloudy, 1+ protein, trace ketones, 1+ bilirubin, trace LE, hyaline cast, epithelial cells, and granular casts Cr 1.86 on admission. Creatinine peaked at 4.5. Now trending down. Today at 3.99 Hopeful for continued renal recovery With significant hypervolemia now improved with gentle IV diuresis with Bumex as per Nephrology Nephrology on board No need for urgent dialysis. This may become necessary if kidney function continues to worsen -Follow BMP, urine output, volume status -continue NaHCO3 for hyponatremia and met acidosis which is improving #Entero/Rhinovirus/Sepsis with shock/Adrenal insufficiency-With associated N/V and significant hypotension with BPs in 70s systolic on admission. With leukocytosis, minimally elevated procalcitonin, and CXR w/ new ill-defined infiltrate of R lung base. Leukocytosis worsened secondary to stress to steroids and now resolved. BPs normalized and weaning off stress steroids -Treated for PNA with Cefepime, doxycycline x 7 day course-last day of therapy 10/06 -Blood pressures improved with stress dose steroids with IV hydrocortisone- switched to prednisone 40mg po daily and taper back to home dose of 5mg over the next week -Supportive care; acetaminophen prn for fever/pain -Not on supplemental O2 -Follow chest imaging to resolution in 4-6 weeks #Warm autoimmune hemolytic anemia-Dx Jul 2023; Follows with hematology most recent visit 08/20/2024; IVIG; Velcade, danazol Hgb down to 7.5, d/w his Retail Field Representative who recommended IVIG and PRBC transfusion- PRBCs delayed due to needing blood from central blood bank in [place]-finally got PRBCs on 10/02 x 1 unit and received 2 days of IVIG Hgb now improved to 9.1 -Continue acyclovir but decreased dose to 200mg bid for renal dosing -Continue iron supplement and folic acid -continue danazol -Follow CBC -f/u with Heme after discharge for ongoing Velcade, IVIG #Right hand/index finger swelling/Acute Gout flare OM suspected on xray of hand/finger-right hand with significant swelling, not coming from IV site, with old infection in finger with skin at the fingertip-healing paronychia-seen by orthopedics and no surgical intervention needed for finger, suspects gout in wrist -MRI hand ordered and shows no OM or abscess, just cellulitis -treated with prednisone 40mg po daily for 5 days and now much improved swelling and pain, less erythema of wrist. Was not likely cellulitis of hand/wrist/finger as initially suspected Today 10/10, hand joints are inflamed again after prednisone was discontinued 2 days ago. Will resume prednisone at 60 mg and plan to do a longer taper -continue elevation of hand -appreciate ID consult #Right IJ DVT-With significant right hand and wrist swelling--> checked RUE venous Doppler which showed thrombus in the right internal jugular vein-started heparin drip - antiXA levels were subtherapeutic x 1 day on drip D/w Oncology--> started Xarelto He was on Xarelto previously for Afib but it has been on held for a while with his ongoing hemolytic anemia requiring transfusions He does not have any known chronic bleeding Suspect jugular DVT from multiple recent hospitalizations, known inflammatory conditions, will need permanent AC due to Afib regardless Switched from Xarelto to Eliquis since it is safer with renal failure -follow CBC # Acute on chronic HFpEF-p/w worsening STOCK, weakness, and feeling as though he is "filling with fluid"; Volume overloaded on exam w/ 2+ pitting edema BLE, increase in baseline per patient. Minimal crackles in lung field bases, increased STOCK per patient. He has also increased from his prior admission (100.7 kg to 109 kg). Echo 07/14 LVEF 55 to 60%, RV mildly dilated, RA severely dilated, LA moderately dilated, mild AR, mild MR, RVSP 30 to 40 mmHg, mild concentric LVH noted, LV systolic function normal. BNP 597. CXR with infiltrate and CHF changes as above Gave IV lasix and increased po bumex as above but developed worsening KRISSY -Given low urine output and hypervolemia-was given Bumex 1 Mg IV daily x 3 days as per Nephro -Accounting Office Manager continues to rise--> give NS 500mL x 1 on 10/05 as per Nephro -Continue Daily weights, I+Os; Low-sodium, fluid restricted diet (1200mL) -With flushing and chest pressure on the evening of 09/30-initially with my ocardial demand ischemia with Troponin 48.1,50, 62, but then troponin now up to 361 but stable on repeat-likely from KRISSY -ECG with some lateral ST depressions mild change from previous, but chest pain resolved -continue metoprolol for rate control as BPs improved -Follow BMP, magnesium, replace electrolytes as needed #A-fib, permanent, rates now improved/controlled as able to give metoprolol with normalized BPs Previous history of Afib, DOAC deferred 2/2 acute anemia in past -now started Eliquis for DVT as well -continue metoprolol with hold parameters -continue tele monitoring #Sleep apnea- No CPAP at baseline #GERD- Protonix #Gout- Allopurinol reduced dose for renal dosing, with acute attack being treated with prednisone #Hypothyroidism- Levothyroxine Dispo: Possible discharge to [place] in the next 1 to 2 days. VTE Prophylaxis: SCDs, Eliquis Admission and Anticipated Discharge Date Admission Date: September 30, 2024 Subjective Patient was seen and examined at 10:10 AM. He states that his right hand joints have started to become inflamed again. It is getting painful and swollen. Review of Systems Review of Systems: All systems reviewed & are unremarkable except as noted in Subjective Physical Exam Physical Exam: General: Awake, conversant Heart: S1, S2/regular rate and rhythm, no murmur rubs or gallops Lungs: Clear to auscultation bilaterally. Normal effort Abdomen: Soft/nontender/nondistended. No hepatosplenomegaly Extremities: No clubbing/cyanosis. 1-2+ pitting bilateral edema. Right upper extremity edema noted but is improving. Hand joints are inflamed again today. Behavior: Appropriate, cooperative Results & Data Results & Data Vital Signs (Past 12 Hours) Vital Signs Temp Pulse Resp BP Pulse Ox O2 Del Method 10/10/24 08:10 Room Air 10/10/24 08:00 36.7 C 85 20 135/83 95 Room Air 10/10/24 03:57 36.8 C 84 18 122/73 99 Room Air Laboratory Results Abnormal lab results 10/10/24 Range/Units 06:52 WBC 12.51 H (4.8-10.8) K/ul RBC 2.64 L (4.70-6.10) M/uL Hgb 8.8 L (14.0-18.0) g/dl Hct 27.2 L (42.0-52.0) % MCV 103.0 H (80.0-100.0) fL RDW Std Deviation 62.1 H (36.4-46.3) fL RDW Coeff of Jaye 17.3 H (11.5-14.5) % Sodium 130 L (136-145) mmol/L Chloride 96 L (98-107) mmol/L BUN 123 H (6-23) mg/dl Creatinine 3.99 H D (0.6-1.4) mg/dl BUN/Creatinine Ratio 30.8 H (10-20) Glucose 102 H (70-99(Fasting)) mg/dl Uric Acid 10.0 H (2.6-7.2) mg/dl PG Care Time/CCT Total # of Minutes Spent Total Time Spent with Patient: Total time spent is greater than 50% in coordination of care (as documented) at patient's floor/unit and/or counseling patient: Coding Level of Care Code 07630 SUB INP/OBS CARE MIN Diagnoses Rhinovirus infection B34.8 Pneumonia J18.9 Laterality: left Lung location: lower lobe of lung Pneumonia type: due to unspecified organism Acute kidney injury N17.9 Acute on chronic heart failure with preserved ejection fraction (HFpEF) I50.33 Acute DVT (deep venous thrombosis) I82.409 (2) Pneumonia Laterality: left Lung location: lower lobe of lung Pneumonia type: due to unspecified organism Qualified Code(s): J18.9 - Pneumonia, unspecified organism
[2024-10-11 07:03] LABS: Hematocrit (blood only) 24.3 % (42.0-52.0); Hemoglobin 7.8 g/dl (14.0-18.0); Mean Corpuscular Hemoglobin 32.5 pg (25.0-34.0); Mean Corpuscular Hgb Conc 32.1 g/dL (32.0-36.0); Mean Corpuscular Volume 101.3 fL (80.0-100.0); Mean Platelet Volume 10.4 fL (9.4-12.4); Platelet Count 147 K/uL (130-400); RDW Coefficient of Variation 17.4 % (11.5-14.5); RDW Standard Deviation 63.3 fL (36.4-46.3); White Blood Count 8.58 K/ul (4.8-10.8)
[2024-10-11 07:20] LABS: BUN Creatinine Ratio 31.6 (10-20); Calcium 8.8 mg/dl (8.6-10.3); Creatinine Clr Calc Pharmacy 24.2 ml/min; Potassium 4.7 mmol/L (3.5-5.1)
[2024-10-11] MEDS ORDERED: SODIUM CHLORIDE 0.9% 50 ML IV PRN (08:11)
[2024-10-11] MEDS ORDERED: SODIUM CHLORIDE 0.9% 100 ML IV PRN (08:11)
--- NOTE | 2024-10-11 08:34 | Nephrology Progress Note ---
Date of Service October 11, 2024 Assessment & Plan (1) Acute on chronic heart failure with preserved ejection fraction (HFpEF): Plan: * 07/11 echocardiogram: LVEFnormal, moderate concentric LVH, RVSP 30-40 mmHg, severe dilation of RA, IVC mildly dilated * Difficult situation. Patient appears to have pulmonary hypertension with right-sided heart failure. Aggressive diuresis results and progressive KRISSY * Hold loop diuretic * Monitor UO, BMP (2) Acute kidney injury: Plan: * KRISSY likely ATN secondary to cellulitis/sepsis and hemodynamic changes related to IVIG infusion * Urine microscopy revealed granular casts c/w ATN * Transplant US this admission was negative for obstruction. Transplant renal artery was patent * Now in recovery phase. Cr improved from 4.3-->3.7 this am * Although azotemic, patient is asymptomatic and without pericardial rub. He is nonoliguric. No acute indication for SDC TEACHER at this time * Encourage oral hydration * Continue low K diet. K has normalized. Will stop Lokelma therapy * Patient has mild hyponatremia. Maintain free water restriction and NaHCO3 twice daily * Monitor daily BMP, UO (3) Kidney transplant status, living unrelated donor: Plan: * Baseline creatinine 1.9-2.3 mg/dL. Continue MMF + tacrolimus as Rx. (4) Infiltrate of lower lobe of right lung present on imaging study: Plan: * CXR - RML consolidation, CMG, congestive changes (5) Infection of finger: Plan: * MRI revealed cellulitis. 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 Primary service has started prednisone. Recommend increasing allopurinol dose once symptoms improve (uric acid 10). Consider consultation w/ rheumatology (6) Anemia: Plan: * Will order iron studies and FOBT (7) Warm autoimmune hemolytic anemia: Plan: * Management as per hematology * IVIG completed. Remains on hydrocortisone. 1 u PRBC transfusion support provided 10/02. (8) Rhinovirus infection: Plan: * Resolved Admission and Anticipated Discharge Date Admission Date: September 30, 2024 Subjective Mr. Mandel was evaluated in his hospital room this morning. He was sitting in a chair and denied dyspnea, angina or uremic symptoms. He reports that hand discomfort is mildly improved w/ steroids but note that his fingers are more swo llen Review of Systems Constitutional: no fever Eyes: no problem reported Ear, Nose, Mouth, Throat: no problem reported Respiratory: no cough and no dyspnea Cardiovascular: no chest pain Gastrointestinal: no abdominal pain, no nausea, no vomiting and no diarrhea/loose stools Genitourinary: no dysuria, no urinary hesitancy or no hematuria Integumentary: + erythema (R index finger) Physical Exam Constitutional: not in distress Eyes: PERRL, conjunctivae normal, anicteric sclerae ENMT: external ear and nose normal, oropharynx normal Neck: trachea midline, no thyromegaly Respiratory: normal respiratory effort, lungs clear to auscultation Cardiovascular: Rate/Rhythm: regular rate and regular rhythm Extremities: + edema (Trace to 1+ pretibial pitting edema) Gastrointestinal (Abdomen): normal bowel sounds, soft, nontender, no hepatosplenomegaly Musculoskeletal: Extremities: + hand abnormality (sausage shaped fingers R hand, tophi L middle finger) Skin: no rashes, warm and dry Neurologic: awake; not confused Results & Data Vital Signs (Past 12 Hours) Vital Signs Temp Pulse Pulse Resp BP Pulse Ox O2 Del Method 10/11/24 07:18 36.7 C 82 18 131/62 99 Room Air 10/11/24 03:22 36.3 C L 92 H 18 118/75 96 Room Air 10/10/24 23:14 86 10/10/24 22:59 36.4 C L 81 16 125/75 99 Room Air 10/10/24 21:19 Room Air Laboratory Results Laboratory Results - last 24 hr 10/10/24 10/11/24 06:52 06:42 WBC 8.58 RBC 2.40 L Hgb 7.8 L Hct 24.3 L MCV 101.3 H MCH 32.5 MCHC 32.1 RDW Std Deviation 63.3 H RDW Coeff of Jaye 17.4 H Plt Count 147 MPV 10.4 Sodium 130 L Potassium 4.7 Chloride 97 L Carbon Dioxide 25 Anion Gap 8 BUN 118 H Creatinine 3.74 H Est Cr Clr Drug Dosing 24.2 eGFR 17.37 BUN/Creatinine Ratio 31.6 H Glucose 124 H Uric Acid 10.0 H Calcium 8.8 PG Care Time/CCT Total # of Minutes Spent Total Time Spent with Patient: Total time spent is greater than 50% in coordination of care (as documented) at patient's floor/unit and/or counseling patient: Coding Diagnoses Acute on chronic heart failure with preserved ejection fraction (HFpEF) I50.33 Acute kidney injury N17.9 Kidney transplant status, living unrelated donor Z94.0 Infiltrate of lower lobe of right lung present on imaging study R91.8 Infection of finger L08.9 Anemia D64.9 Warm autoimmune hemolytic anemia D59.11 Rhinovirus infection B34.8
--- NOTE | 2024-10-11 14:08 | Hospitalist Progress Note ---
Date of Service October 11, 2024 Assessment & Plan (1) Rhinovirus infection: (2) Pneumonia: (3) Acute kidney injury: (4) Acute on chronic heart failure with preserved ejection fraction (HFpEF): (5) Acute DVT (deep venous thrombosis): Plan 63-year-old male with past medical history significant for HFpEF, A-fib, ESRD, warm autoimmune hemolytic anemia, ESRD s/p renal transplant now with CKD stage III-IV, presents with increased dizziness, weakness, fatigue, and worsening SOB/STOCK. Symptom onset ~ 3 days prior to admission but acutely worsening the day of arrival. With increased BLE edema, BNP elevated in the 500s which is increased from his baseline. Found to have Entero/Rhinovirus and PNA on CXR with septic shock. #KRISSY/CKD stage 4/Status-post renal transplant/Hyperkalemia-with h/o FSGS + renal transplant 2009, follows with nephrology, most recent visit 09/27/24; Cr baseline 1.3-1.4; On CellCept + Prograf (trough 4-7) Received 1 dose of IV Lasix and 1 dose of Bumex 2 Mg p.o. x 1 on admission which was then held for significant hypotension UA cloudy, 1+ protein, trace ketones, 1+ bilirubin, trace LE, hyaline cast, epithelial cells, and granular casts Cr 1.86 on admission. Creatinine peaked at 4.5. Now trending down. Today at 3.7 Hopeful for continued renal recovery With significant hypervolemia now improved with gentle IV diuresis with Bumex as per Nephrology Nephrology on board No need for urgent dialysis. -Follow BMP, urine output, volume status -continue NaHCO3 for hyponatremia and met acidosis which is improving #Entero/Rhinovirus/Sepsis with shock/Adrenal insufficiency-With associated N/V and significant hypotension with BPs in 70s systolic on admission. With leukocytosis, minimally elevated procalcitonin, and CXR w/ new ill-defined infiltrate of R lung base. Leukocytosis worsened secondary to stress to steroids and now resolved. BPs normalized and weaning off stress steroids -Treated for PNA with Cefepime, doxycycline x 7 day course-last day of therapy 10/06 -Blood pressures improved with stress dose steroids with IV hydrocortisone- switched to prednisone 60 mg p.o. daily and taper back to home dose of 5mg over the next week -Supportive care; acetaminophen prn for fever/pain -Not on supplemental O2 -Follow chest imaging to resolution in 4-6 weeks #Warm autoimmune hemolytic anemia-Dx Jul 2023; Follows with hematology most recent visit 08/20/2024; IVIG; Velcade, danazol Hgb down to 7.5, d/w his Crushed Stone Grader who recommended IVIG and PRBC transfusion- PRBCs delayed due to needing blood from central blood bank in [place]-finally got PRBCs on 10/02 x 1 unit and received 2 days of IVIG Hemoglobin down today again to 7.8. Per funeral pre arrangement counselor, transfuse when hemoglobin less than 8 Transfusion ordered. Expect delay in getting blood from central blood bank in [place]. -Continue acyclovir but decreased dose to 200mg bid for renal dosing -Continue iron supplement and folic acid -continue danazol -Follow CBC -f/u with Heme after discharge for ongoing Velcade, IVIG #Right hand/index finger swelling/Acute Gout flare OM suspected on xray of hand/finger-right hand with significant swelling, not coming from IV site, with old infection in finger with skin at the fingertip-healing paronychia-seen by orthopedics and no surgical intervention needed for finger, suspects gout in wrist -MRI hand ordered and shows no OM or abscess, just cellulitis -treated with prednisone 40mg po daily for 5 days. Was not likely cellulitis of hand/wrist/finger as initially suspected 10/10, hand joints looked inflamed again after prednisone was discontinued 2 days ago. Will resume prednisone at 60 mg and plan to do a longer taper -continue elevation of hand -appreciate ID consult #Right IJ DVT-With significant right hand and wrist swelling--> checked RUE venous Doppler which showed thrombus in the right internal jugular vein-started heparin drip - antiXA levels were subtherapeutic x 1 day on drip D/w Oncology--> started Xarelto He was on Xarelto previously for Afib but it has been on held for a while with his ongoing hemolytic anemia requiring transfusions He does not have any known chronic bleeding Suspect jugular DVT from multiple recent hospitalizations, known inflammatory conditions, will need permanent AC due to Afib regardless Switched from Xarelto to Eliquis since it is safer with renal failure -follow CBC # Acute on chronic HFpEF-p/w worsening STOCK, weakness, and feeling as though he is "filling with fluid"; Volume overloaded on exam w/ 2+ pitting edema BLE, increase in baseline per patient. Minimal crackles in lung field bases, increased STOCK per patient. He has also increased from his prior admission (100.7 kg to 109 kg). Echo 07/14 LVEF 55 to 60%, RV mildly dilated, RA severely dilated, LA moderately dilated, mild AR, mild MR, RVSP 30 to 40 mmHg, mild concentric LVH noted, LV systolic function normal. BNP 597. CXR with infiltrate and CHF changes as above Gave IV lasix and increased po bumex as above but developed worsening KRISSY -Given low urine output and hypervolemia-was given Bumex 1 Mg IV daily x 3 days as per Nephro -Family And Consumer Education Teacher continues to rise--> give NS 500mL x 1 on 10/05 as per Nephro -Continue Daily weights, I+Os; Low-sodium, fluid restricted diet (1200mL) -With flushing and chest pressure on the evening of 09/30-initially with myocardial demand ischemia with Troponin 48.1,50, 62, but then troponin now up to 361 but stable on repeat-likely from KRISSY -ECG with some lateral ST depressions mild change from previous, but chest pain resolved -continue metoprolol for rate control as BPs improved -Follow BMP, magnesium, replace electrolytes as needed #A-fib, permanent, rates now improved/controlled as able to give metoprolol with normalized BPs Previous history of Afib, DOAC deferred 2/2 acute anemia in past -now started Eliquis for DVT as well -continue metoprolol with hold parameters -continue tele monitoring #Sleep apnea- No CPAP at baseline #GERD- Protonix #Gout- Allopurinol reduced dose for renal dosing, with acute attack being treated with prednisone #Hypothyroidism- Levothyroxine Dispo: Possible discharge to [place] in the next 1 to 2 days. VTE Prophylaxis: SCDs, Eliquis Admission and Anticipated Discharge Date Admission Date: September 30, 2024 Subjective Patient was seen and examined at 11:20 AM. He still has significant right arm swelling and pain. Review of Systems Review of Systems: All systems reviewed & are unremarkable except as noted in Subjective Physical Exam Physical Exam: General: Awake, conversant Heart: S1, S2/regular rate and rhythm, no murmur rubs or gallops Lungs: Clear to auscultation bilaterally. Normal effort Abdomen: Soft/nontender/nondistended. No hepatosplenomegaly Extremities: No clubbing/cyanosis. 1-2+ pitting bilateral edema. Right upper extremity edema noted. Hand joints are still inflamed today. Behavior: Appropriate, cooperative Results & Data Results & Data Vital Signs (Past 12 Hours) Vital Signs Temp Pulse Resp BP Pulse Ox O2 Del Method 10/11/24 11:58 36.5 C 93 H 18 136/80 94 Room Air 10/11/24 07:18 36.7 C 82 18 131/62 99 Room Air 10/11/24 03:22 36.3 C L 92 H 18 118/75 96 Room Air Laboratory Results Abnormal lab results 10/11/24 10/11/24 Range/Units 06:42 08:35 RBC 2.40 L (4.70-6.10) M/uL Hgb 7.8 L (14.0-18.0) g/dl Hct 24.3 L (42.0-52.0) % MCV 101.3 H (80.0-100.0) fL RDW Std Deviation 63.3 H (36.4-46.3) fL RDW Coeff of Jaye 17.4 H (11.5-14.5) % Sodium 130 L (136-145) mmol/L Chloride 97 L (98-107) mmol/L BUN 118 H (6-23) mg/dl Creatinine 3.74 H (0.6-1.4) mg/dl BUN/Creatinine Ratio 31.6 H (10-20) Glucose 124 H (70-99(Fasting)) mg/dl Iron 24 L (35-175) mcg/dl Transferrin 179 L (200-360) mg/dl Transferrin % Sat 10 L (20-50) % Ferritin 2437.0 H (8-388) ng/ml Antibody Screen POSITIVE A Crossmatch See Detail PG Care Time/CCT Total # of Minutes Spent Total Time Spent with Patient: Total time spent is greater than 50% in coordination of care (as documented) at patient's floor/unit and/or counseling patient: Coding Level of Care Code 22039 SUB INP/OBS CARE 2/35MIN Diagnoses Rhinovirus infection B34.8 Pneumonia J18.9 Laterality: left Lung location: lower lobe of lung Pneumonia type: due to unspecified organism Acute kidney injury N17.9 Acute on chronic heart failure with preserved ejection fraction (HFpEF) I50.33 Acute DVT (deep venous thrombosis) I82.409 (2) Pneumonia Laterality: left Lung location: lower lobe of lung Pneumonia type: due to unspecified organism Qualified Code(s): J18.9 - Pneumonia, unspecified organism
[2024-10-12 03:00] VITALS: RESP 18
[2024-10-12 06:22] LABS: Hematocrit (blood only) 26.5 % (42.0-52.0); Hemoglobin 8.8 g/dl (14.0-18.0); Mean Corpuscular Hemoglobin 33.6 pg (25.0-34.0); Mean Corpuscular Hgb Conc 33.2 g/dL (32.0-36.0); Mean Corpuscular Volume 101.1 fL (80.0-100.0); Mean Platelet Volume 10.8 fL (9.4-12.4); Platelet Count 161 K/uL (130-400); RDW Coefficient of Variation 19.2 % (11.5-14.5); RDW Standard Deviation 69.1 fL (36.4-46.3); Red Blood Count 2.62 M/uL (4.70-6.10); White Blood Count 8.54 K/ul (4.8-10.8)
[2024-10-12 06:31] LABS: BUN Creatinine Ratio 31.4 (10-20); Calcium 8.5 mg/dl (8.6-10.3); Creatinine Clr Calc Pharmacy 24.8 ml/min; Potassium 4.5 mmol/L (3.5-5.1)
[2024-10-12 08:58] VITALS: BP 131/85; TEMP 97.9; O2SAT 100
--- NOTE | 2024-10-12 10:50 | Discharge Summary ---
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 Recently discharged from hospital with course being 09/13/2024-09/20/2024 for acute on chronic diastolic heart failure and KRISSY. Pt presenting to ED today for "feeling like crap," which worsened the day of arrival. 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 Has had increased edema bilateral lower extremities, weakness, fatigue, and body aches. Ever since his last discharge from the hospital, he has started to decline over that time into the day of arrival. He has been having whole body weakness, feeling feverish but no documented temperature, and pain in his bilateral feet. He states that he feels as though he is continuing to fill up with fluid, and he can tell because his legs are causing him more pain than normal. States that he does have some STOCK, but is about his baseline however he does feel that it might of worsened slightly the day of arrival. Overall denying chest pain, shortness of breath at rest, palpitations, abdominal pain, N/V/D/C, numbness/tingling, headaches, dizziness, or syncope. Has been taking medications as prescribed and took his daily medications. Patient was found to be entero-/rhinovirus positive in ED, but does not have known sick contacts. Additionally has leukocytosis of 15, procalcitonin 0.70. BNP is 597 which is up from his baseline and initial troponin was 48.1. His EKG did not show ischemic changes. Patient's renal function is also up from baseline with creatinine 2.1, BUN 61. CXR does reveal worsening of chronic findings. Patient received cefepime and Lasix in ED. Please see Dr. Morel's attestation for adjustments/additions to treatment plan. Admission Exam Per Admitting Provider General: No acute distress, appearing to not feel well Skin: Warm and dry, without rashes or lesions. No cyanosis or clubbing Head: Normocephalic, atraumatic Eyes: PERRL, conjunctivae clear, sclera non-icteric; EOM intact ENT: External ear and ear canal without swelling; nose atraumatic; good dentition, tongue normal appearance, pharynx normal without tonsillar swelling or exudate Neck: Supple, no LAD; no JVD Cardio: RRR, no M/G/R, S1 and S2 normal Resp: Chest wall symmetric, normal respiratory effort; No respiratory distress, Lungs CTA in all lobes bilaterally, no wheezes, rales, or rhonchi Abdomen: Soft, symmetric, nontender; No visible lesions or scars; no distention; No masses or hepatosplenomegaly; Bowel sounds normoactive MSK: No deformities, full ROM throughout; pulses palpable and equal; no edema. Neuro: Awake, alert; Muscle strength 5/5 bilaterally in UE/LE; Sensation intact bilaterally; CN intact Psych: Appropriate mood and affect; good judgement and insight. Principal Diagnosis Entero/rhinovirus infection Possible superficial bacterial pneumonia Sepsis with shock Adrenal insufficiency Warm autoimmune hemolytic anemia Right arm acute gout flare Right IJ DVT Acute on chronic HFpEF Discharge Exam General: Awake, conversant Heart: S1, S2/regular rate and rhythm, no murmur rubs or gallops Lungs: Clear to auscultation bilaterally. Normal effort Abdomen: Soft/nontender/nondistended. No hepatosplenomegaly Extremities: No clubbing/cyanosis. 1-2+ pitting bilateral edema. Right upper extremity edema noted. Hand joints are still inflamed today. Behavior: Appropriate, cooperative Discharge Data Allergies Allergy/AdvReac Type Severity Reaction Status Date / Time clopidogrel [From Plavix] Allergy Unknown Unknown Verified 09/27/24 15:34 Znrsbbz-TYM-ZpF Reductase AdvReac Intermediate myalgias Verified 09/27/24 15:34 Inhibitor [Aezlinu-Lhb-Azc Reductase Inhibitor] Consultations 09/30/24 01:41 ED Decision to Admit Stat 09/30/24 11:45 Consult Nephrology Routine 10/01/24 18:14 Consult Orthopedic Surgery Routine 10/02/24 06:11 Consult Hematology Routine Ordered Studies 10/01/24 10:50 US Kidney transplant [US renal transplant w dop] Routine 10/01/24 18:49 US venous doppler UE RT Stat 10/03/24 14:27 MR hand RT wo con Urgent Hospital Course (1) Rhinovirus infection: (2) Pneumonia: (3) Acute kidney injury: (4) Acute on chronic heart failure with preserved ejection fraction (HFpEF): (5) Acute DVT (deep venous thrombosis): Plan 63-year-old male with past medical history significant for HFpEF, A-fib, ESRD, warm autoimmune hemolytic anemia, ESRD s/p renal transplant now with CKD stage III-IV, presents with increased dizziness, weakness, fatigue, and worsening SOB/STOCK. Symptom onset ~ 3 days prior to admission but acutely worsening the day of arrival. With increased BLE edema, BNP elevated in the 500s which is inc reased from his baseline. Found to have Entero/Rhinovirus and PNA on CXR with septic shock. #KRISSY/CKD stage 4/Status-post renal transplant/Hyperkalemia-with h/o FSGS + renal transplant 2009, follows with nephrology, most recent visit 09/27/24; Cr baseline 1.3-1.4; On CellCept + Prograf (trough 4-7) Received 1 dose of IV Lasix and 1 dose of Bumex 2 Mg p.o. x 1 on admission which was then held for significant hypotension UA cloudy, 1+ protein, trace ketones, 1+ bilirubin, trace LE, hyaline cast, epithelial cells, and granular casts Cr 1.86 on admission. Creatinine peaked at 4.5. Now trending down. Today at 3.6 Hopeful for continued renal recovery With significant hypervolemia now improved with gentle IV diuresis with Bumex as per Nephrology Nephrology on board No need for urgent dialysis. -Follow BMP, urine output, volume status -continue NaHCO3 for hyponatremia and met acidosis which is improving Patient will need renal panel done at [facility] early next week to ensure downtrending creatinine Diuretics being held for now. May consider resuming soon #Entero/Rhinovirus/Sepsis with shock/Adrenal insufficiency-With associated N/V and significant hypotension with BPs in 70s systolic on admission. With leukocytosis, minimally elevated procalcitonin, and CXR w/ new ill-defined infiltrate of R lung base. Leukocytosis worsened secondary to stress to steroids and now resolved. BPs normalized and weaning off steroids -Treated for PNA with Cefepime, doxycycline x 7 day course-last day of therapy 10/06 -Blood pressures improved with stress dose steroids with IV hydrocortisone- switched to prednisone 60 mg p.o. daily and taper back to home dose of 5mg over the next week -Supportive care; acetaminophen prn for fever/pain -Not on supplemental O2 -Follow chest imaging to resolution in 4-6 weeks #Warm autoimmune hemolytic anemia-Dx Jul 2023; Follows with hematology most recent visit 08/20/2024; IVIG; Velcade, danazol Hgb down to 7.5, d/w his [employer] Admin who recommended IVIG and PRBC transfusion- PRBCs delayed due to needing blood from central blood bank in [place]-finally got PRBCs on 10/02 x 1 unit and received 2 days of IVIG Patient received another unit of blood transfusion on 10/11 -Continue acyclovir but decreased dose to 200mg bid for renal dosing -Continue iron supplement and folic acid -continue danazol -Follow CBC -f/u with Heme after discharge for ongoing Velcade, IVIG #Right hand/index finger swelling/Acute Gout flare OM suspected on xray of hand/finger-right hand with significant swelling, not coming from IV site, with old infection in finger with skin at the fingertip-healing paronychia-seen by orthopedics and no surgical intervention needed for finger, suspects gout in wrist -MRI hand ordered and shows no OM or abscess, just cellulitis -treated with prednisone 40mg po daily for 5 days. Was not likely cellulitis of hand/wrist/finger as initially suspected 10/10, hand joints looked inflamed again after prednisone was discontinued 2 days ago. Will resume prednisone at 60 mg and plan to do a longer taper. Patient will need rheumatology follow-up outpatient -continue elevation of hand -appreciate ID consult #Right IJ DVT-With significant right hand and wrist swelling--> checked RUE venous Doppler which showed thrombus in the right internal jugular vein-started heparin drip - antiXA levels were subtherapeutic x 1 day on drip D/w Oncology--> started Xarelto He was on Xarelto previously for Afib but it has been on held for a while with his ongoing hemolytic anemia requiring transfusions He does not have any known chronic bleeding Suspect jugular DVT from multiple recent hospitalizations, known inflammatory conditions, will need permanent AC due to Afib regardless Switched from Xarelto to Eliquis since it is safer with renal failure -follow CBC # Acute on chronic HFpEF-p/w worsening STOCK, weakness, and feeling as though he is "filling with fluid"; Volume overloaded on exam w/ 2+ pitting edema BLE, increase in baseline per patient. Minimal crackles in lung field bases, increased STOCK per patient. He has also increased from his prior admission (100.7 kg to 109 kg). Echo 07/14 LVEF 55 to 60%, RV mildly dilated, RA severely dilated, LA moderately dilated, mild AR, mild MR, RVSP 30 to 40 mmHg, mild concentric LVH noted, LV systolic function normal. BNP 597. 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--> give NS 500mL x 1 on 10/05 as per Nephro -Continue Daily weights, I+Os; Low-sodium, fluid restricted diet (1200mL) -With flushing and chest pressure on the evening of 09/30-initially with myocardial demand ischemia with Troponin 48.1,50, 62, but then troponin now up to 361 but stable on repeat-likely from KRISSY -ECG with some lateral ST depressions mild change from previous, but chest pain resolved -continue metoprolol for rate control as BPs improved -Follow BMP, magnesium, replace electrolytes as needed #A-fib, permanent, rates now improved/controlled as able to give metoprolol with normalized BPs Previous history of Afib, DOAC deferred 2/2 acute anemia in past -now started Eliquis for DVT as well -continue metoprolol with hold parameters -continue tele monitoring #Sleep apnea- No CPAP at baseline #GERD- Protonix #Gout- Allopurinol reduced dose for renal dosing, with acute attack being treated with prednisone. Patient will need outpatient rheumatology follow-up #Hypothyroidism- Levothyroxine Discharged to [facility] today Total Time Total Time Spent Total Time Spent (In Minutes): 35 Discharge Plan Discharge Items Patient Disposition: Transfer [facility] Reason For Visit: ACUTE ON CHRONIC HEART FAILURE Discharge Diagnosis: Entero/rhinovirus infection Possible superficial bacterial pneumonia Sepsis with shock Adrenal insufficiency Warm autoimmune hemolytic anemia Right arm acute gout flare Right IJ DVT Acute on chronic HFpEF Activity: As commented below Activity Comment: Per PT/OT recommendations Non-emergency contact: Primary Care Provider Call non-emergency contact if: you have any medication questions and your symptoms worsen Follow-up/Referrals: Santos Rivers MD [Primary Care Provider] - Diet: Heart Healthy and Low Sodium (2gm) Fluids: 1500ml (6 cups) Addtl Attending Provider Instructions: Advised to follow-up with PCP in 1 week Advised that you may need a referral to rheumatology for your gout Advised to follow-up with hematology in 2 weeks Pending Studies at Discharge: No Stand-Alone Forms: My [facility] Skilled Items Patient informed of condition?: Yes DNR: No Discharge Level of Care: Skilled Communicable Disease: No Discharge Prognosis: Stable Lines: None Urinary Catheter: No Medications and DC Order Prescriptions: New Eliquis 5 mg Tablet 5 mg PO BID Qty: 90 0RF Rx Instructions: Take 2 tabs twice daily till 10/14 9am. On 10/14 9pm, switch to 1 tab twice daily sodium bicarbonate 650 mg Tablet 1,300 mg PO BID 30 Days Qty: 120 0RF prednisone 10 mg tablet 10 mg PO DAILY Qty: 20 0RF Rx Instructions: 4 tabs for 2 days, then drop by 1 tab every 2 days, then stop Continued mycophenolate mofetil 250 mg capsule 500 mg PO BID Qty: 360 3RF folic acid 1 mg tablet 1 mg PO BID Qty: 180 3RF pantoprazole 40 mg tablet,delayed release (DR/EC) 40 mg PO BID Qty: 180 3RF ferrous sulfate 325 mg (65 mg iron) tablet 325 mg PO BID Qty: 60 0RF metoprolol succinate 100 mg tablet extended release 24 hr 100 mg PO HS Qty: 90 1RF ondansetron 4 mg tablet,disintegrating 4 mg PO Q8 PRN (Reason: nausea) Qty: 20 1RF Rx Instructions: Take as needed for nausea levothyroxine 125 mcg tablet 125 mcg PO QAM Qty: 90 1RF Rx Instructions: TAKE 1 TABLET BY MOUTH EVERY DAY tacrolimus 1 mg capsule 1 - 2 mg PO UD Rx Instructions: Take 2mg by mouth in the morning and 1mg by mouth in the evening magnesium oxide 500 mg magnesium tablet 500 mg PO BID amoxicillin 500 mg capsule 2,000 mg PO DIRECTED PRN (Reason: PRIOR TO DENTAL PROCEDURES) multivitamin Tablet 1 tab PO QAM calcium carbonate 500 mg calcium (1,250 mg) Tablet 500 mg PO QAM allopurinol 100 mg tablet 100 mg PO BID acyclovir 400 mg tablet 400 mg PO BID albuterol sulfate 90 mcg/actuation HFA aerosol inhaler 2 inh inhalation Q6H PRN (Reason: shortness of breath or wheezing) Qty: 8.5 0RF danazol 200 mg capsule 200 mg PO BID metoprolol succinate 25 mg Tablet Extended Release 24 Hr 25 mg PO QAM Qty: 30 0RF Held prednisone 5 mg tablet 5 mg PO QDB Hold Instructions: Resume on 10/21/24. Discontinued bumetanide 1 mg tablet 1 mg PO DAILY Qty: 90 3RF Discharge Orders: Discharge Order (Routine); Ordered 10/12/24 Ordered By: Anton Condon Admission Data Admit Date/Time: 09/30/24 02:39 Attending Provider: Anton Condon Admit Provider: Janet Morel Primary Care Provider: Santos Rivers Other Providers: Janet Morel; Charlotte Oro; Thompson Morel; Ba Gonsalez; Viry Reyes; Arian Moy Other Interventions: Discharge Summary Assessment (RN) Last Done: 10/12/24 11:02
[2024-10-12 11:04] VITALS: PULSE 72
--- NOTE | 2024-10-12 11:49 | Nephrology Progress Note ---
Date of Service October 12, 2024 Assessment & Plan (1) Acute kidney injury: (2) Status post kidney transplant: (3) Warm autoimmune hemolytic anemia: (4) Rhinovirus infection: (5) Infection of finger: (6) Kidney transplant status, living unrelated donor: (7) Acute exacerbation of CHF (congestive heart failure): (8) Hypomagnesemia: (9) Rhinovirus infection: Plan 63 y o m with acute kidney injury with history of renal transplant and baseline decent kidney function and probably secondary to ATN with rhinovirus infection, right hand osteomyelitis versus polyarticular gout. Kidney function slowly improving creatinine was down to 3.7 from peak 4.5, electrolyte acceptable. Volume status staying acceptable off of diuretic and net negative. --Recommend rapidly tapering prednisone dose --May need outpatient rheumatology evaluation if discharged over the weekend --If discharge anticipated, report recommend close outpatient lab monitoring, will need renal panel in Monday or Monday okay to continue to hold diuretics on discharge as has been having significant urine output without diuretics. Admission and Anticipated Discharge Date Admission Date: September 30, 2024 Rocio Naik was seen and evaluated this morning. He reports overall feeling slightly better, shortness of breath improved. Blood pressure stable. Kidney function has been improving very slowly, creatinine still staying above 3, electrolyte acceptable, has been having great urine output and net negative without diuretics.. Hemoglobin stable Review of Systems Review of Systems: All systems reviewed & are unremarkable except as noted in Subjective Physical Exam Constitutional: WD/WN, vitals as above no acute distress Eyes: + anicteric sclerae Respiratory: Auscultation: lungs clear to auscultation bilaterally; no crackles and no wheezes Cardiovascular: Rate/Rhythm: + tachycardic Heart Sounds: normal S1 and normal S2 Extremities: + edema (trace b/l LE) Musculoskeletal: Extremities: + joint enlargement and + hand abnormality (swelling and tenderness of rt hand) Right Skin: no rashes, warm and dry Neurologic: no focal motor deficits Psychiatric: Orientation: alert and oriented x 3 Affect: euthymic affect Results & Data Vital Signs (Past 12 Hours) Vital Signs Temp Pulse Pulse Pulse Resp BP BP 10/12/24 11:02 36.6 C 72 88 18 131/85 10/12/24 08:00 10/12/24 08:00 76 10/12/24 07:57 36.6 C 72 18 131/85 01/25/25 02:59 36.5 C 78 18 121/79 10/12/24 02:36 36.6 C 80 20 117/75 10/12/24 01:36 36.6 C 80 20 131/75 10/12/24 00:36 36.6 C 82 20 131/75 10/12/24 00:06 36.6 C 86 20 131/75 10/11/24 23:51 36.6 C 84 20 131/75 Pulse Ox O2 Del Method 10/12/24 11:02 100 10/12/24 08:00 Room Air 10/12/24 08:00 10/12/24 07:57 100 Room Air 10/12/24 02:59 99 Room Air 10/12/24 02:36 97 10/12/24 01:36 97 10/12/24 00:36 97 10/12/24 00:06 97 10/11/24 23:51 97 PG Care Time/CCT Total # of Minutes Spent Total Time Spent with Patient: Total time spent is greater than 50% in coordination of care (as documented) at patient's floor/unit and/or counseling patient: Coding Level of Care Code 63264 SUB INP/OBS CARE 2/35MIN Diagnoses Acute kidney injury N17.9 Status post kidney transplant Z94.0 Warm autoimmune hemolytic anemia D59.11 Rhinovirus infection B34.8 Infection of finger L08.9 Kidney transplant status, living unrelated donor Z94.0 Acute exacerbation of CHF (congestive heart failure) I50.9 Hypomagnesemia E83.42
[2024-10-14] MEDS ORDERED: APIXABAN 5 MG TABLET PO SCH (21:00)
--- NOTE | 2024-10-15 13:24 | Coding Query ---
CODING QUERY To promote full compliance with coding requirements relating to patient care, provider participation is requested in all cases of kapok machine operator uncertainty. Please assist us with the question(s) below: Coding Question(s): There is documentation beginning on the first Progress Note and through the Discharge Summary of Sepsis with Shock, " #Entero/Rhinovirus/Sepsis with shock/Adrenal insufficiency-With associated N/V and significant hypotension with BPs in 70s systolic on admission". Please specify below, in your clinical opinion, the most likely source/cause of the Sepsis present on admission: ( x ) Most likely Entero/Rhinovirus infection. Please specify further regarding the Entero/Rhinovirus infection: (x ) Viral Pneumonia with Entero/Rhinovirus ( ) Other Infection site with Entero/Rhinovirus. Please Specify ( ) Entero/Rhinovirus Infection Unspecified ( ) Most Likely Viral Pneumonia, Unspecified Virus ( ) Most likely Bacterial Pneumonia ( ) Most Likely Other Infectious Source. Please Specify ( ) Unknown likely infectious source ( ) Other: Please Specify Physician's Response(s): Thank you Salome Mcnulty Principal Diagnosis: "that condition established after study, to be chiefly responsible for occasioning the admission of the patient to the hospital for care." Co-Existing Principal Diagnosis: "when two or more diagnoses equally meet the criteria for principal diagnosis as determined by the circumstances of admission, diagnostic work up, and/or therapy provided, and the Alphabetic Index, Tabular List, or another coding guideline does not provide sequencing direction, any one of the diagnoses may be sequenced first." "When the physician has documented what appears to be a current diagnosis in the body of the record, but has not included the diagnosis in the final diagnostic statement, the physician should be asked whether the diagnosis should be added." (Source Coding [facility] 2 QTR90. p3-4) CORINNA
== END 2024-10-12 12:04 | DRG 871 ==
LOC: ED 23:38 → SUATTDRO 09-30 02:39 → EDINP 09-30 02:39 → 2S 09-30 03:37

== ENCOUNTER 2024-12-25 19:52 | Inpatient (IN) ==
--- NOTE | 2024-12-25 20:30 | Emergency Department Note ---
Impression & Plan Shortness of breath, Hypomagnesemia, CKD (chronic kidney disease), Generalized weakness, Non-ST elevation OR (NSTEMI), Elevated procalcitonin, Elevated brain natriuretic peptide (BNP) level, Anemia ED Provider Note HISTORY OF PRESENT ILLNESS: Patient is a 64-year-old male presenting with shortness of breath and generalized weakness. Patient reports that earlier today he had a nosebleed. He states that this was abnormal for him. He reports that throughout the day today he has been having subjective chills. Denies any measured fevers. He reports feeling very rundown and fatigued. Denies any recent sick contact exposures. He does report feeling slightly short of breath and lightheaded. He denies any chest pain. Denies any DVT or PE history. He has a history of A- fib. He denies any abdominal pain, nausea or vomiting. Denies any cough. ROS: as above PHYSICAL EXAM: Constitutional: Patient appears in no acute distress. HENT: Head: Normocephalic and atraumatic. Eyes: EOMI, PERRL Mouth/Throat: Mucous membranes moist. Neck: Trachea midline. Neck supple. Cardiovascular: Tachycardic with irregularly irregular rhythm. No murmurs, rubs or gallops. Intact distal pulses. Pulmonary/Chest: No respiratory distress. Breath sounds clear and equal bilaterally. No wheezes or rales. Abdominal: Abdomen soft, no tenderness, rebound or guarding. Musculoskeletal: No edema, tenderness or deformity noted. Skin: Warm and dry. No rash, erythema, pallor or cyanosis Psychiatric: Appropriate mood and affect for situation. Neurological: Alert and keenly responsive. CN II-XII grossly intact, moving all extremities equally and fully. MDM: - Vitals signs showed tachycardia - History obtained via patient. History as above. - Chronic conditions affecting care: CKD stage 3; HLD; hypothyroidism; Afib - Differential diagnoses include, but are not limited to: Congestive heart failure; acute coronary syndrome; COPD/asthma exacerbation; pulmonary edema; pulmonary embolism; pneumonia; pneumothorax; viral syndrome - Order placed for continuous cardiac monitoring. At this time, monitor showed rate of 107 bpm with irregular rhythm, per my interpretation. - External medical records reviewed. Nephrology office visit note dated 12/06/2024 was reviewed. Patient follows in their clinic for history of ESRD secondary to FSGS and is status post live unrelated kidney transplant. His baseline creatinine has been 1.3-1.4. His most recent creatinine has been up to 3.4. - EKG image interpreted by myself showed atrial fibrillation. Rate tachycardic at 111 bpm. QT 398. No acute ischemic changes. Noted to have a right bundle branch block. - Laboratory workup interpreted by myself showed normal WBC; chronic anemia (Hgb 8.3); elevated INR (1.3); harman lactate; elevated procalcitonin (0.80); hypomagnesemia (Mg 1.1); CKD (Cr 3.11); elevated BNP (394); elevated troponin (82.7) - CXR image reviewed by myself is negative for pneumonia, per my interpretation. - Repeat troponin was elevated but trending slightly down at 78 pg/mL. - UA negative for infection - Viral respiratory swab positive for rhinovirus/enterovirus infection - VBG grossly unremarkable - Patient given 1g IV magnesium for electrolyte replacement - Discussion was had with manager of case about patient's case and need for admission - Hospitalist, Dr. Morel, consulted for admission - Patient admitted to [facility] for further evaluation and management. ASSESSMENT AND PLAN: Diagnosis: shortness of breath; generalized weakness; anemia; hypomagnesemia; NSTEMI; elevated BNP; CKD; elevated procalcitonin Plan: admit Past Med/Surg History Problem List (Updated 12/26/24 @ 00:04 by Luz Brian MD) Anemia (Acute) Elevated brain natriuretic peptide (BNP) level (Acute) Elevated procalcitonin (Acute) Non-ST elevation OR (NSTEMI) (Acute) Generalized weakness (Acute) CKD (chronic kidney disease) (Acute) Hypomagnesemia (Acute) Shortness of breath (Acute) Pulmonary edema Pulmonary nodule Tophaceous gout Gait instability Acute DVT (deep venous thrombosis) Acute on chronic heart failure with preserved ejection fraction (HFpEF) Infiltrate of lower lobe of right lung present on imaging study (Acute) Rhinovirus infection (Acute) Acute kidney injury (Acute) Clostridioides difficile diarrhea Sleep apnea, obstructive RBBB (right bundle branch block with left anterior fascicular block) Diastolic CHF Human metapneumovirus (hMPV) pneumonia Atrial fibrillation Acute on chronic diastolic (congestive) heart failure Infection due to human metapneumovirus (hMPV) (Acute) Hypomagnesemia (Acute ~09/17/24) Pneumonia (Acute) Adrenal insufficiency Bilateral leg edema Atrial fibrillation with rapid ventricular response Sepsis due to pneumonia Kidney transplant status, living unrelated donor (Acute) Acute exacerbation of CHF (congestive heart failure) (Acute) Status post right hip replacement LVH (left ventricular hypertrophy) Coronary artery calcification CKD (chronic kidney disease) 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 Status post kidney transplant Warm autoimmune hemolytic anemia On prednisone therapy Ground glass opacity present on imaging of lung Rosales's esophagus with esophagitis Macrocytic anemia Erosive esophagitis EGD 08/2023 Abnormal findings on diagnostic imaging of other abdominal regions, including retroperitoneum Arthritis of right hip Hip arthritis Adrenal nodule MS PCP considering adrenal protocol CT or MRI for characterization Herpetic maria Aneurysm Abnormal LFTs Pneumonia Acute non-ST elevation myocardial infarction (NSTEMI) (Acute) 01/31/23 Megaloblastic anemia (Acute) Cerumen impaction Retroperitoneal mass lesion biopsy negative for malignancy 05/2022 per transplant record 03/17/23 Hypotension Diarrhea Adenomatous polyps Vitamin D deficiency Chronic kidney disease, stage 3a COVID-19 (Acute) Acute respiratory failure with hypoxemia (Acute) 07/29/20 Anemia (Chronic) hospitalized at [facility] 07/2023, received blood transfusion 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 History of esophageal reflux (Chronic) controlled, stable per pt Hyperlipidemia (Chronic) Hypothyroidism (Chronic) Obesity (Chronic) Osteoporosis (Chronic) Proteinuria (Chronic) Medical History Infection of finger Hx of sepsis Erosive esophagitis History of Clostridioides difficile infection CKD (chronic kidney disease) Bilateral leg edema Hx of adrenal insufficiency Hx of right bundle branch block History of recent hospitalization Rhinovirus infection Hypomagnesemia Hx of gout Hx of congestive heart failure Sleep apnea, obstructive Hypocalcemia Weakness Elevated troponin Atrial fibrillation with rapid ventricular response Hypotension Heart failure with preserved ejection fraction Hypomagnesemia History of non-ST elevation myocardial infarction (NSTEMI) Osteoporosis Hypothyroidism Hyperlipidemia Hx of esophageal reflux FSGS (focal segmental glomerulosclerosis) Abdominal aortic aneurysm History of colon polyps Retroperitoneal mass Pneumonia Adrenal nodule Arthritis On prednisone therapy Rosales's esophagus with esophagitis Atrial flutter Autoimmune hemolytic anemia Thoracic ascending aortic aneurysm Hypertension Limb alert care status History of blood transfusion Hx of herpetic maria History of COVID-19 History of renal dialysis History of CVA (cerebrovascular accident) Surgical History History of total right hip arthroplasty Hx of kidney transplant History of esophagogastroduodenoscopy (EGD) Hx of cholecystectomy Hx of exploratory laparotomy History of colonoscopy Family History Grandmother (Maternal) Alzheimer disease Mother Depression Denies family history of Ovarian cancer Prostate cancer Diabetes Heart disease Myocardial infarction Breast cancer Lung cancer COPD (chronic obstructive pulmonary disease) Colorectal cancer Hypertension Stroke Social History Smoking Status: Never smoker Second Hand Exposure: No; Do You Dip or Chew Tobacco: No; Hx Alcohol Use: No Hx Substance Use: No 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: Maltese Communication Ability: Effective Visual Impairment: No Limitations Hearing Ability: Normal Arch Support Maker Required: No Beliefs That Will Affect Care: None marital status: Current Living Situation: Spouse current occupational status: employed current occupation: [employer] How many Children do You have: 1 Feels Safe at Home: Yes Childhood Exposure to Second-Hand Smoke: No Dental Care, Regularly: Yes Seatbelt Use: sometimes Sunscreen Use: No Assistive Devices: Cane and Walker Allergies Allergies Allergy/AdvReac Type Severity Reaction Status Date / Time clopidogrel [From Plavix] Allergy Unknown Unknown Verified 12/06/24 09:20 Mqvdect-NOA-DtA Reductase AdvReac Intermediate myalgias Verified 12/06/24 09:20 Inhibitor [Nkidrlv-Uur-Fpj Reductase Inhibitor] Home Meds Home Medications Medication Instructions Recorded Confirmed amoxicillin 500 mg capsule 2,000 mg PO DIRECTED PRN PRIOR 07/29/20 12/25/24 TO DENTAL PROCEDURES calcium carbonate 500 mg PO QAM 01/21/24 12/25/24 acyclovir 400 mg tablet 400 mg PO BID 05/07/24 12/25/24 magnesium oxide 500 mg PO BID 08/09/24 12/25/24 danazol 200 mg capsule 200 mg PO BID 09/13/24 12/25/24 prednisone 5 mg tablet 5 mg PO QDB 09/24/24 12/25/24 acetaminophen 325 mg tablet 650 mg PO Q4H PRN Pain 11/14/24 12/25/24 aspirin 81 mg tablet,delayed 81 mg PO DAILY 11/14/24 12/25/24 release (Adult Aspirin Regimen) cholecalciferol (vitamin D3) 25 25 mcg PO DAILY 11/14/24 12/25/24 mcg (1,000 unit) capsule vitamin B complex-vitamin C-folic 1 tab PO BID 11/14/24 12/25/24 acid 0.8 mg tablet (Renal Vitamin) allopurinol 300 mg tablet 300 mg PO DAILY 12/25/24 12/25/24 Previous Rx's Medication Instructions Recorded mycophenolate mofetil 250 mg 500 mg (2 x 250 mg) PO BID #360 05/29/20 capsule caps folic acid 1 mg tablet 1 mg PO BID #180 tabs 09/20/23 pantoprazole 40 mg tablet,delayed 40 mg PO BID #180 tabs 12/06/23 release ferrous sulfate 325 mg (65 mg 325 mg PO BID #60 tabs 02/05/24 iron) tablet ondansetron 4 mg disintegrating 4 mg PO Q8 PRN nausea #20 tabs 05/22/24 tablet albuterol sulfate 90 mcg/actuation 2 inh inhalation Q6H PRN shortness 08/25/24 aerosol inhaler of breath or wheezing #8.5 grams levothyroxine 125 mcg tablet 125 mcg PO QAM #90 tabs 09/27/24 apixaban 5 mg tablet (Eliquis) 5 mg PO BID #90 tabs 10/12/24 metoprolol succinate 50 mg 50 mg PO BID #90 tabs 11/14/24 tablet,extended release 24 hr bumetanide 1 mg tablet 1 mg PO BID #70 tabs 12/06/24 tacrolimus 0.5 mg capsule, 0.5 mg PO Q12H Dx: Z94.0 kidney 12/13/24 immediate-release transplant #60 caps Results & Data (ED) Vital Signs Vital Signs - 24 hr 12/25/24 19:58 12/25/24 20:06 12/25/24 20:27 Temperature 37.3 C Temperature Source Oral Pulse Rate 115 H 118 H Respiratory Rate 20 Respiratory Depth Normal Blood Pressure 100/66 Blood Pressure Mean 77 Pulse Oximetry 99 97 Oxygen Delivery Method Room Air Nasal Cannula Sepsis Recent Fever Within 48 Hours No Sepsis New/Unexplained Change in Mental Status No Sepsis Action Taken by Nursing No Action Required 12/25/24 20:37 12/25/24 21:16 12/25/24 23:04 Temperature Temperature Source Pulse Rate 111 H 115 H 107 H Respiratory Rate 18 18 20 Respiratory Depth Blood Pressure 118/89 119/82 104/64 Blood Pressure Mean 98 94 77 Pulse Oximetry 97 99 96 Oxygen Delivery Method Sepsis Recent Fever Within 48 Hours Sepsis New/Unexplained Change in Mental Status Sepsis Action Taken by Nursing Laboratory Data 12/25/24 20:17 12/25/24 20:17 Lab Results 12/25/24 12/25/24 12/25/24 Range/Units 20:17 20:30 21:16 WBC 6.52 (4.8-10.8) K/ul RBC 2.52 L (4.70-6.10) M/uL Hgb 8.3 L (14.0-18.0) g/dl Hct 25.3 L (42.0-52.0) % MCV 100.4 H (80.0-100.0) fL MCH 32.9 (25.0-34.0) pg MCHC 32.8 (32.0-36.0) g/dL RDW Std Deviation 65.2 H (36.4-46.3) fL RDW Coeff of Jaye 17.9 H (11.5-14.5) % Plt Count 174 (130-400) K/uL MPV 11.5 (9.4-12.4) fL Immature Gran % (Auto) 0.8 % Neut % (Auto) 82.8 % Lymph % (Auto) 5.8 % [place] % (Auto) 8.1 % Eos % (Auto) 2.0 % Baso % (Auto) 0.5 % Neut # (Auto) 5.40 (1.40-6.50) K/uL Lymph # (Auto) 0.38 L (1.20-3.40) K/uL [place] # (Auto) 0.53 (0.11-0.59) K/uL Eos # (Auto) 0.13 (0.00-0.50) K/uL Baso # (Auto) 0.03 (0.00-0.20) K/uL Immature Gran # (Auto) 0.05 (0.01-0.20) K/uL PT Cancelled INR Cancelled VBG pH 7.40 (7.36-7.41) VBG pCO2 32 L (38-50) mmHg VBG pO2 43 mmHg VBG HCO3 20 mmol/L VBG O2 Saturation 78.5 % VBG Base Excess -4.0 mEq/L Sodium 134 L (136-145) mmol/L Potassium 4.0 (3.5-5.1) mmol/L Chloride 102 (98-107) mmol/L Carbon Dioxide 21 (21-32) mmol/L Anion Gap 11 (3-11) BUN 82 H (6-23) mg/dl Creatinine 3.11 H (0.6-1.4) mg/dl Est Cr Clr Drug Dosing 26.5 ml/min eGFR 21.54 BUN/Creatinine Ratio 26.4 H (10-20) Glucose 90 (70-99(Fasting)) mg/dl Lactate (0.4-2.0) mmol/L Calcium 8.4 L (8.6-10.3) mg/dl Magnesium 1.1 L (1.7-2.4) mg/dl Total Bilirubin 1.2 H (0.2-1.0) mg/dl AST 30 (13-39) U/L ALT 18 (7-52) U/L Alkaline Phosphatase 96 (34-104) U/L Troponin I High Sens 82.7 H* (0-20) pg/ml B-Natriuretic Peptide 394 H (0-100) pg/ml Total Protein 6.3 (6.0-8.3) gm/dl Albumin 3.4 (3.4-5.0) gm/dl Globulin 2.9 (2.5-4.0) gm/dl Albumin/Globulin Ratio 1.2 (0.9-2) Procalcitonin 0.80 H (0-0.5) ng/ml Urine Color Dark Yellow Urine Appearance Clear (Clear) Urine pH 5.0 (4.5-7.5) Ur Specific [place] 1.014 (1.000-1.030) Urine Protein Negative (Negative) Urine Glucose (UA) Negative (Negative) Urine Ketones Negative (Negative) Urine Blood Negative (Negative) Urine Nitrite Negative (Negative) Urine Bilirubin Negative (Negative) Urine Urobilinogen Negative (Negative) Ur Leukocyte Esterase Negative (Negative) Adenovirus (PCR) Not Detected (NotDetected) B. pertussis DNA (PCR) Not Detected (NotDetected) B.parapertussis DNA PCR Not Detected (NotDetected) C. pneumoniae DNA (PCR) Not Detected (NotDetected) Coronavirus OC43 (PCR) Not Detected (NotDetected) Coronavirus HKU1 (PCR) Not Detected (NotDetected) Coronavirus 229E (PCR) Not Detected (NotDetected) SARS-CoV-2 (PCR) Not Detected (NotDetected) Coronavirus NL63 (PCR) Not Detected (NotDetected) Human Metapneumovir PCR Not Detected (NotDetected) Influenza Type A (PCR) Not Detected (NotDetected) Influenza Type B (PCR) Not Detected (NotDetected) M. pneumoniae (PCR) Not Detected (NotDetected) Parainfluenza 1 (PCR) Not Detected (NotDetected) Parainfluenza 2 (PCR) Not Detected (NotDetected) Parainfluenza 3 (PCR) Not Detected (NotDetected) Parainfluenza 4 (PCR) Not Detected (NotDetected) RSV (PCR) Not Detected (NotDetected) Entero/Rhino (PCR) DETECTED A (NotDetected) 12/25/24 12/25/24 Range/Units 21:27 21:58 WBC (4.8-10.8) K/ul RBC (4.70-6.10) M/uL Hgb (14.0-18.0) g/dl Hct (42.0-52.0) % MCV (80.0-100.0) fL MCH (25.0-34.0) pg MCHC (32.0-36.0) g/dL RDW Std Deviation (36.4-46.3) fL RDW Coeff of Jaye (11.5-14.5) % Plt Count (130-400) K/uL MPV (9.4-12.4) fL Immature Gran % (Auto) % Neut % (Auto) % Lymph % (Auto) % [place] % (Auto) % Eos % (Auto) % Baso % (Auto) % Neut # (Auto) (1.40-6.50) K/uL Lymph # (Auto) (1.20-3.40) K/uL [place] # (Auto) (0.11-0.59) K/uL Eos # (Auto) (0.00-0.50) K/uL Baso # (Auto) (0.00-0.20) K/uL Immature Gran # (Auto) (0.01-0.20) K/uL PT 13.6 H INR 1.3 H VBG pH (7.36-7.41) VBG pCO2 (38-50) mmHg VBG pO2 mmHg VBG HCO3 mmol/L VBG O2 Saturation % VBG Base Excess mEq/L Sodium (136-145) mmol/L Potassium (3.5-5.1) mmol/L Chloride (98-107) mmol/L Carbon Dioxide (21-32) mmol/L Anion Gap (3-11) BUN (6-23) mg/dl Creatinine (0.6-1.4) mg/dl Est Cr Clr Drug Dosing ml/min eGFR BUN/Creatinine Ratio (10-20) Glucose (70-99(Fasting)) mg/dl Lactate 0.8 (0.4-2.0) mmol/L Calcium (8.6-10.3) mg/dl Magnesium (1.7-2.4) mg/dl Total Bilirubin (0.2-1.0) mg/dl AST (13-39) U/L ALT (7-52) U/L Alkaline Phosphatase (34-104) U/L Troponin I High Sens 78.0 H* (0-20) pg/ml B-Natriuretic Peptide (0-100) pg/ml Total Protein (6.0-8.3) gm/dl Albumin (3.4-5.0) gm/dl Globulin (2.5-4.0) gm/dl Albumin/Globulin Ratio (0.9-2) Procalcitonin (0-0.5) ng/ml Urine Color Urine Appearance (Clear) Urine pH (4.5-7.5) Ur Specific [place] (1.000-1.030) Urine Protein (Negative) Urine Glucose (UA) (Negative) Urine Ketones (Negative) Urine Blood (Negative) Urine Nitrite (Negative) Urine Bilirubin (Negative) Urine Urobilinogen (Negative) Ur Leukocyte Esterase (Negative) Adenovirus (PCR) (NotDetected) B. pertussis DNA (PCR) (NotDetected) B.parapertussis DNA PCR (NotDetected) C. pneumoniae DNA (PCR) (NotDetected) Coronavirus OC43 (PCR) (NotDetected) Coronavirus HKU1 (PCR) (NotDetected) Coronavirus 229E (PCR) (NotDetected) SARS-CoV-2 (PCR) (NotDetected) Coronavirus NL63 (PCR) (NotDetected) Human Metapneumovir PCR (NotDetected) Influenza Type A (PCR) (NotDetected) Influenza Type B (PCR) (NotDetected) M. pneumoniae (PCR) (NotDetected) Parainfluenza 1 (PCR) (NotDetected) Parainfluenza 2 (PCR) (NotDetected) Parainfluenza 3 (PCR) (NotDetected) Parainfluenza 4 (PCR) (NotDetected) RSV (PCR) (NotDetected) Entero/Rhino (PCR) (NotDetected) Administered Medications Discontinued Medications Magnesium Sulfate/Dextrose (Magnesium Sulfate / D5w) 1 gm in 100 mls @ 100 mls/hr IV NOW STA Stop: 12/25/24 23:18 Last Infusion: 12/25/24 23:47 Dose: Infused Documented By: Admin: 12/25/24 22:37 Dose: 100 mls/hr Documented By: TIEN Imaging Data Radiologist's Impression: Chest X-Ray 12/25/24 20:04 Exam(s): XR CXR 1 VIEW EXAM: XR Chest, 1 View CLINICAL HISTORY: Reason for exam: Dyspnea. TECHNIQUE: Frontal view of the chest. COMPARISON: Chest x-ray 10/06/2024 FINDINGS: Lungs: The left base and costophrenic angle is excluded from the field- of-view. No consolidation. No overt edema. Pleural space: No pleural effusion. No pneumothorax. Heart: Cardiomegaly. IMPRESSION: 1. No acute cardiopulmonary abnormality. 2. Cardiomegaly. Electronically signed by: Emery Boudreaux MD 12/25/24 23:22 PM Discharge Plan Visit Data Chief Complaint: Shortness of Breath/Dyspnea Stated Complaint: SOB,FATIGUE ED Provider: Luz Brian Discharge Problem: Shortness of breath, Hypomagnesemia, CKD (chronic kidney disease), Generalized weakness, Non-ST elevation OR (NSTEMI), Elevated procalcitonin, Elevated brain natriuretic peptide (BNP) level, Anemia Forms Stand Alone Forms: [facility] Prescriptions Prescriptions: No Action mycophenolate mofetil 250 mg capsule 500 mg PO BID Qty: 360 3RF folic acid 1 mg tablet 1 mg PO BID Qty: 180 3RF pantoprazole 40 mg tablet,delayed release (DR/EC) 40 mg PO BID Qty: 180 3RF ferrous sulfate 325 mg (65 mg iron) tablet 325 mg PO BID Qty: 60 0RF ondansetron 4 mg tablet,disintegrating 4 mg PO Q8 PRN (Reason: nausea) Qty: 20 1RF Rx Instructions: Take as needed for nausea levothyroxine 125 mcg tablet 125 mcg PO QAM Qty: 90 1RF Rx Instructions: TAKE 1 TABLET BY MOUTH EVERY DAY metoprolol succinate 50 mg tablet extended release 24 hr 50 mg PO BID Qty: 90 1RF tacrolimus 0.5 mg capsule 0.5 mg PO Q12H Qty: 60 2RF acetaminophen 325 mg tablet 650 mg PO Q4H PRN (Reason: Pain) aspirin [Adult Aspirin Regimen] 81 mg tablet,delayed release (DR/EC) 81 mg PO DAILY Renal Vitamin 0.8 mg tablet 1 tab PO BID cholecalciferol (vitamin D3) 25 mcg (1,000 unit) capsule 25 mcg PO DAILY bumetanide 1 mg tablet 1 mg PO BID Qty: 70 3RF Rx Instructions: 1 tab twice daily, take extra 1 as needed for worsening edema magnesium oxide 500 mg magnesium tablet 500 mg PO BID amoxicillin 500 mg capsule 2,000 mg PO DIRECTED PRN (Reason: PRIOR TO DENTAL PROCEDURES) calcium carbonate 500 mg calcium (1,250 mg) Tablet 500 mg PO QAM prednisone 5 mg tablet 5 mg PO QDB Hold Instructions: Resume on 10/21/24. acyclovir 400 mg tablet 400 mg PO BID albuterol sulfate 90 mcg/actuation HFA aerosol inhaler 2 inh inhalation Q6H PRN (Reason: shortness of breath or wheezing) Qty: 8.5 0RF Eliquis 5 mg Tablet 5 mg PO BID Qty: 90 0RF Rx Instructions: Take 2 tabs twice daily till 10/14 9am. On 10/14 9pm, switch to 1 tab twice daily allopurinol 300 mg tablet 300 mg PO DAILY danazol 200 mg capsule 200 mg PO BID Referrals Referrals: Santos Rivers MD [Primary Care Provider] -
[2024-12-25 20:38] LABS: HCO3 VBG 20 mmol/L; Oxygen Saturation VBG 78.5 %; PCO2 VBG 32 mmHg (38-50); PO2 VBG 43 mmHg
[2024-12-25 21:00] LABS: Basophils # (auto) 0.03 K/uL (0.00-0.20); Basophils % (auto) 0.5 %; Eosinophils # (auto) 0.13 K/uL (0.00-0.50); Hematocrit (blood only) 25.3 % (42.0-52.0); Hemoglobin 8.3 g/dl (14.0-18.0); Immature Granulocytes # (auto) 0.05 K/uL (0.01-0.20); Immature Granulocytes % (auto) 0.8 %; Lymphocytes # (auto) 0.38 K/uL (1.20-3.40); Lymphocytes % (auto) 5.8 %; Mean Corpuscular Hemoglobin 32.9 pg (25.0-34.0); Mean Corpuscular Hgb Conc 32.8 g/dL (32.0-36.0); Mean Corpuscular Volume 100.4 fL (80.0-100.0); Mean Platelet Volume 11.5 fL (9.4-12.4); Monocytes # (auto) 0.53 K/uL (0.11-0.59); Monocytes % (auto) 8.1 %; Neutrophils % (auto) 82.8 %; Platelet Count 174 K/uL (130-400); RDW Coefficient of Variation 17.9 % (11.5-14.5); RDW Standard Deviation 65.2 fL (36.4-46.3); Red Blood Count 2.52 M/uL (4.70-6.10); White Blood Count 6.52 K/ul (4.8-10.8)
[2024-12-25 21:04] LABS: Albumin Level 3.4 gm/dl (3.4-5.0); Bilirubin,Total 1.2 mg/dl (0.2-1.0); Calcium 8.4 mg/dl (8.6-10.3); Magnesium 1.1 mg/dl (1.7-2.4)
[2024-12-25 21:10] LABS: Albumin Globulin Ratio 1.2 (0.9-2); BUN Creatinine Ratio 26.4 (10-20); Creatinine Clr Calc Pharmacy 26.5 ml/min; Globulin 2.9 gm/dl (2.5-4.0); Total Protein 6.3 gm/dl (6.0-8.3)
[2024-12-25 21:28] LABS: Troponin I High Sensitivity 82.7 pg/ml (0-20)
[2024-12-25 21:32] LABS: Appearance Urine Clear (Clear); Bilirubin Urine Negative (Negative); Blood Urine Negative (Negative); Color Urine Dark Yellow; Glucose Urine UA Negative (Negative); Ketones Urine Negative (Negative); Leukocyte Esterase Urine Negative (Negative); Nitrite Urine Negative (Negative); Protein Urine Negative (Negative); Specific Gravity Urine 1.014 (1.000-1.030); Urobilinogen Urine Negative (Negative)
[2024-12-25 21:42] LABS: Adenovirus PCR Not Detected (NotDetected); Bordetella parapertussis PCR Not Detected (NotDetected); Bordetella pertussis PCR Not Detected (NotDetected); Chlamydia pneumoniae PCR Not Detected (NotDetected); Coronavirus 229E PCR Not Detected (NotDetected); Coronavirus CoV-2 (COVID19)PCR Not Detected (NotDetected); Coronavirus HKU1 PCR Not Detected (NotDetected); Coronavirus NL63 PCR Not Detected (NotDetected); Coronavirus OC43PCR Not Detected (NotDetected); Human Metapneumovirus PCR Not Detected (NotDetected); Influenza A PCR Not Detected (NotDetected); Influenza B PCR Not Detected (NotDetected); Mycoplasma pneumoniae PCR Not Detected (NotDetected); Parainfluenza Virus 1 PCR Not Detected (NotDetected); Parainfluenza Virus 2 PCR Not Detected (NotDetected); Parainfluenza Virus 3 PCR Not Detected (NotDetected); Parainfluenza Virus 4 PCR Not Detected (NotDetected); Respiratory Syncytial VirusPCR Not Detected (NotDetected); Rhinovirus/Enterovirus PCR DETECTED (NotDetected)
[2024-12-25 22:15] LABS: INR 1.3 (0.9-1.1); Prothrombin Time 13.6 Seconds (9.0-12.0)
[2024-12-25] MEDS: MAGNESIUM SULFATE / D5W 1 GM/100 ML BAG IV STA (22:37)
--- NOTE | 2024-12-25 23:16 | History & Physical Report ---
Date of Service December 25, 2024 Assessment & Plan (1) Warm autoimmune hemolytic anemia: (2) Hypomagnesemia: (3) Rhinovirus: (4) Elevated troponin: Plan Patient is a 64-year-old male with past medical history of HFpEF, A-fib on Eliquis, ESRD, WAHA, and additional chronic medical conditions who presented to the ED due to fatigue, poor appetite, dyspnea on exertion for several days. This he tested positive for rhinovirus on [employer] fire, however has tested positive for this since admission since August. He was found to have hypomagnesemia with a mag of 1.1 requiring IV repletion. Hemoglobin 8.3, requires transfusions when less than 8, 2 pRBCs ordered to be held. 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 Gonsalez, last transfusion 09/2024 - Hgb 8.3 (requires transfusion if < 8) - type and screen ordered - blood consent forms signed at time of admission - 2 units irradiated pRBC ordered to be held given typically takes several days for arrival due to transport from [place] - Hematology consulted - trend CBC - continue Danazol, acyclovir, iron supplement, and folic acid - Velcade q 2 weeks with heme #hypomagnesemia - chronic history - Mag 1.1 on admission, other electrolytes stable - 3 g IV mag ordered - Continue home twice daily magnesium supplement - Trend magnesium and BMP #rhinovirus - questionable and symptoms explained with anemia above. Positive bio fire repeatedly since 08/22/2024. - will place on droplet precautions however not overly convinced that he is currently contagious - CXR negative for acute changes - Pro-Carlos 0.08, baseline - VSS/nonhypoxic - supportive care with Tylenol as needed #elevated troponin - 82.7 -> 78.0, at baseline, chronically elevated suspect 2/2 demand - denies cp - repeat with AM labs to assure downtrend #CKD stage 4/status post renal transplant - h/o FSGS and renal transplant 2009, follows with Dr. Oro, baseline creatinine previously 1.3-1.4 however has been uptrending between 3.0-4.0 overall several months - Cr 3.11 on admission, current baseline - UA WNL, no protein or ketones - continue CellCept, Prograf, prednisone (pt reports currently 10mg qam) - trend BMP #HFpEF - stable, not in acute exacerbation. BNP 394 (baseline). Echo 10/21/24 EF 55 to 59%, RV mildly dilated, LA severely enlarged, RA severely enlarged, diastolic left ventricular dysfunction, aortic root mildly enlarged, mild AR, mild MR, mild TR, moderate pulmonary hypertension, aortic valve with 3 leaflets. CXR negative for acute changes. - Strict I's and O's, Heart healthy, low-sodium diet - continue Bumex and metoprolol #permanent a fib - rate stable. DOAC previously deferred due to anemia however was recently restarted on Eliquis due to right IJ DVT 09/2024. - Continue metoprolol and Eliquis #Sleep apnea- No CPAP at baseline #GERD- continue Protonix #Gout- continue Allopurinol #Hypothyroidism- continue Levothyroxine VTE ppx: SCDs, Eliquis Dispo: med/telemetry Admission and Anticipated Discharge Date Admission Date: 12/26/24 History of Present Illness Chief Complaint: dyspnea Primary Care Provider: Santos Rivers MD Patient is a 64-year-old male with past medical history of HFpEF, A-fib on Eliquis, ESRD, W AHA, and additional chronic medical conditions who presented to the ED due to fatigue, poor appetite, dyspnea on exertion for several days. This he tested positive for rhinovirus on [employer], however has tested positive for this since admission since August. He was found to have hypomagnesemia with a mag of 1.1 requiring IV repletion. Hemoglobin 8.3, requires transfusions when less than 8, 2 PRBCs ordered to be held. Patient seen at bedside. He stated he has felt fatigued and sleeping a lot for several days. He has had a poor appetite and dyspnea on exertion as well. He does endorse runny nose and sore throat today. He did have diarrhea several days ago that has resolved. He was noted to have dried blood around his right nostril at time of exam, and stated his [employer] fire swab caused his nose to bleed. Patient denies dizziness, lightheadedness, cough, sputum production, abdominal pain, nausea, vomiting, dysuria, hematuria. Patient stated he last had dialysis in 2007. Has not required a blood transfusion for several months. He was supposed to have blood work tomorrow with nephrology and hematology. Patient denies nicotine or alcohol use. He does not use oxygen at baseline. He stated he got his morning medications but is due for his evening medications, he is now taking prednisone 10 Mg every morning. He wishes to be a conditional code, would not want CPR however would be agreeable to intubate patient. Transfusion consent form signed with nursing present. Allergies Allergy/AdvReac Type Severity Reaction Status Date / Time clopidogrel [From Plavix] Allergy Unknown Unknown Verified 12/06/24 09:20 Pkrrblg-[id number]-MxL Reductase AdvReac Intermediate myalgias Verified 12/06/24 09:20 Inhibitor [Obshwwp-Cyi-Joe Reductase Inhibitor] Home Medications Medication Instructions Recorded Confirmed Type mycophenolate mofetil 250 mg 500 mg (2 x 250 mg) PO BID #360 05/29/20 12/25/24 Rx capsule caps amoxicillin 500 mg capsule 2,000 mg PO DIRECTED PRN PRIOR 07/29/20 12/25/24 History TO DENTAL PROCEDURES folic acid 1 mg tablet 1 mg PO BID #180 tabs 09/20/23 12/25/24 Rx pantoprazole 40 mg tablet,delayed 40 mg PO BID #180 tabs 12/06/23 12/25/24 Rx release calcium carbonate 500 mg PO QAM 01/21/24 12/25/24 History ferrous sulfate 325 mg (65 mg 325 mg PO BID #60 tabs 02/05/24 12/25/24 Rx iron) tablet acyclovir 400 mg tablet 400 mg PO BID 05/07/24 12/25/24 History ondansetron 4 mg disintegrating 4 mg PO Q8 PRN nausea #20 tabs 05/22/24 12/25/24 Rx tablet magnesium oxide 500 mg PO BID 08/09/24 12/25/24 History albuterol sulfate 90 mcg/actuation 2 inh inhalation Q6H PRN shortness 08/25/24 12/25/24 Rx aerosol inhaler of breath or wheezing #8.5 grams danazol 200 mg capsule 200 mg PO BID 09/13/24 12/25/24 History prednisone 5 mg tablet 5 mg PO QDB 09/24/24 12/25/24 History levothyroxine 125 mcg tablet 125 mcg PO QAM #90 tabs 09/27/24 12/25/24 Rx apixaban 5 mg tablet (Eliquis) 5 mg PO BID #90 tabs 10/12/24 12/25/24 Rx acetaminophen 325 mg tablet 650 mg PO Q4H PRN Pain 11/14/24 12/25/24 History aspirin 81 mg tablet,delayed 81 mg PO DAILY 11/14/24 12/25/24 History release (Adult Aspirin Regimen) cholecalciferol (vitamin D3) 25 25 mcg PO DAILY 11/14/24 12/25/24 History mcg (1,000 unit) capsule metoprolol succinate 50 mg 50 mg PO BID #90 tabs 11/14/24 12/25/24 Rx tablet,extended release 24 hr vitamin B complex-vitamin C-folic 1 tab PO BID 11/14/24 12/25/24 History acid 0.8 mg tablet (Renal Vitamin) bumetanide 1 mg tablet 1 mg PO BID #70 tabs 12/06/24 12/25/24 Rx tacrolimus 0.5 mg capsule, 0.5 mg PO Q12H Dx: Z94.0 kidney 12/13/24 12/25/24 Rx immediate-release transplant #60 caps allopurinol 300 mg tablet 300 mg PO DAILY 12/25/24 12/25/24 History Past Med/Surg History Problem List Elevated troponin hx, 07/2024; f/u [facility] cardiology Rhinovirus Anemia (Acute) Elevated brain natriuretic peptide (BNP) level (Acute) Elevated procalcitonin (Acute) Non-ST elevation PA (NSTEMI) (Acute) Generalized weakness (Acute) CKD (chronic kidney disease) (Acute) Hypomagnesemia (Acute) Shortness of breath (Acute) Pulmonary edema Pulmonary nodule Tophaceous gout Gait instability Acute DVT (deep venous thrombosis) Acute on chronic heart failure with preserved ejection fraction (HFpEF) Infiltrate of lower lobe of right lung present on imaging study (Acute) Rhinovirus infection (Acute) Acute kidney injury (Acute) Clostridioides difficile diarrhea Sleep apnea, obstructive RBBB (right bundle branch block with left anterior fascicular block) Diastolic CHF Human metapneumovirus (hMPV) pneumonia Atrial fibrillation Acute on chronic diastolic (congestive) heart failure Infection due to human metapneumovirus (hMPV) (Acute) Hypomagnesemia (Acute ~09/17/24) Pneumonia (Acute) Adrenal insufficiency Bilateral leg edema Atrial fibrillation with rapid ventricular response Sepsis due to pneumonia Kidney transplant status, living unrelated donor (Acute) Acute exacerbation of CHF (congestive heart failure) (Acute) Status post right hip replacement LVH (left ventricular hypertrophy) Coronary artery calcification CKD (chronic kidney disease) 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 Status post kidney transplant Warm autoimmune hemolytic anemia On prednisone therapy Ground glass opacity present on imaging of lung Rosales's esophagus with esophagitis Macrocytic anemia Erosive esophagitis EGD 08/2023 Abnormal findings on diagnostic imaging of other abdominal regions, including retroperitoneum Arthritis of right hip Hip arthritis Adrenal nodule MS PCP considering adrenal protocol CT or MRI for characterization Herpetic maria Aneurysm Abnormal LFTs Pneumonia Acute non-ST elevation myocardial infarction (NSTEMI) (Acute) 01/31/23 Megaloblastic anemia (Acute) Cerumen impaction Retroperitoneal mass lesion biopsy negative for malignancy 05/2022 per transplant record 03/17/23 Hypotension Diarrhea Adenomatous polyps Vitamin D deficiency Chronic kidney disease, stage 3a COVID-19 (Acute) Acute respiratory failure with hypoxemia (Acute) 07/29/20 Anemia (Chronic) hospitalized at [facility] 07/2023, received blood transfusion 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 History of esophageal reflux (Chronic) controlled, stable per pt Hyperlipidemia (Chronic) Hypothyroidism (Chronic) Obesity (Chronic) Osteoporosis (Chronic) Proteinuria (Chronic) Medical History Infection of finger Hx of sepsis due to pneumonia, ~07/26/24, hospitalized at [facility] Erosive esophagitis hx, EGD 08/2023 History of Clostridioides difficile infection dx 09/14/24, [facility]; 09/24/24, per pt, "will be finishing abx in next day or so" CKD (chronic kidney disease) f/u ct nephrology Bilateral leg edema "has some, has gotten better" Hx of adrenal insufficiency Hx of right bundle branch block f/u ct cardiology History of recent hospitalization pt admitted to [facility] multiple times over 2023 (01/21/24, 05/2024-sx, 07/13/24, 07/26/24, 08/22/24, 08/24/24); most recent visit 08/24/24 per records "63-year-old male with past medical history significant for HFpEF, A-fib, ESRD, WAHA, and additional chronic medical conditions who is presenting for sudden onset of chest pain with shortness of breath after exertion following eating out at [employer] followed by increased activity with cutting wood and developed chest pain. CXR with evidence for volume overload and was provided IV Lasix last nitro on admission with improvement/resolution of symptoms. Also with KRISSY that was likely due to hypotension/hypoperfusion and increased diuretic use recently; improving. Also with A-fib RVR, suspect due to increased salt load/increased activity/untreated CHERELLE." Rhinovirus infection Hypomagnesemia Hx of gout Hx of congestive heart failure Sleep apnea, obstructive no device Hypocalcemia hx Weakness Atrial fibrillation with rapid ventricular response controlled w/ metoprolol; f/u [facility] cardiology Hypotension pt unaware? 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 Abdominal aortic aneurysm 4.9 cm on 01/2023 chest CTA; monitoring History of colon polyps Retroperitoneal mass lesion biopsy negative for malignancy 05/2022 per transplant record 03/17/23 Pneumonia hx, ~08/23/24 Adrenal nodule monitored by PCP Arthritis On prednisone therapy Rosales's esophagus with esophagitis Atrial flutter hx 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 Thoracic ascending aortic aneurysm 4.[address] 01/19/24 Hypertension controlled, stable per pt Limb alert care status left arm restriction History of blood transfusion ~07/2024 Hx of herpetic maria History of COVID-19 07/2020- covid pneumonia, hospitalized; resolved History of renal dialysis prior to kidney transplant; has dialysis fistula left arm History of CVA (cerebrovascular accident) 2008, mild memory changes Surgical History History of total right hip arthroplasty Hx of kidney transplant 02/[facility]- [facility] [place], [place] History of esophagogastroduodenoscopy (EGD) Hx of cholecystectomy Hx of exploratory laparotomy History of colonoscopy Family History Grandmother (Maternal) Alzheimer disease Mother Depression Denies family history of Ovarian cancer Prostate cancer Diabetes Heart disease Myocardial infarction Breast cancer Lung cancer COPD (chronic obstructive pulmonary disease) Colorectal cancer Hypertension Stroke Social History Smoking Status: Never smoker Second Hand Exposure: No; Do You Dip or Chew Tobacco: No; Hx Alcohol Use: No Hx Substance Use: No 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: Macedonian Communication Ability: Effective Visual Impairment: No Limitations Hearing Ability: Normal Bulk Pallet Builder Required: No Beliefs That Will Affect Care: None marital status: Current Living Situation: Spouse current occupational status: employed current occupation: [employer] How many Children do You have: 1 Feels Safe at Home: Yes Childhood Exposure to Second-Hand Smoke: No Dental Care, Regularly: Yes Seatbelt Use: sometimes Sunscreen Use: No Assistive Devices: Cane and Walker Review of Systems Review of Systems: see HPI Physical Exam Physical Exam: The patient is awake, alert and oriented 3, well developed and well nourished, normocephalic and atraumatic, in no acute distress. Non-toxic appearing. HEENT- EOMI, mucous membranes dry. Hearing grossly intact. Dried blood around right nostril. Heart-normal S1 and S2. No murmurs, rubs or gallops. Lungs-clear bilaterally, no respiratory distress, no accessory muscle use. Abdomen-normal bowel sounds and soft. No ascites noted. Non-tender. Extremities- no clubbing, cyanosis, or edema. Rheumatologic-normal range of motion. Results & Data Results & Data Vital Signs (Past 12 Hours) Vital Signs Temp Pulse Resp BP Pulse Ox O2 Del Method 12/25/24 23:04 107 H 20 104/64 96 12/25/24 21:16 115 H 18 119/82 99 12/25/24 20:37 111 H 18 118/89 97 12/25/24 20:27 97 Nasal Cannula 12/25/24 20:06 118 H 12/25/24 19:58 37.3 C 115 H 20 100/66 99 Room Air Laboratory Results Reviewed CBC, CMP, BioFire, PT/INR, VBG, lactate, magnesium, troponin, BNP, procalcitonin, UA Diagnostic Findings reviewed CXR Medications Administered ED1G IV mag [id number] IV mag ECG Additional Comments: ordered Code Status & VTE Plan Code Status conditional: Would not want chest compressions but would want intubation VTE Prophylaxis Plan VTE Prophylaxis will be ordered: Yes Supervising Physician Co-Signing Physician Notes patient seen and examined, chart reviewed, case discussed with KARMEN Chilel and I agree with the assessment and plan as documented above. In brief, patient is a 64-year-old male with multiple medical comorbidities specifically heart failure preserved EF, A-fib on Eliquis, ESRD secondary to FSGS status post renal transplant on immunosuppressive therapy with salt septic/Prograf/prednisone, warm agglutinin hemolytic anemia presenting with fatigue, poor appetite, dyspnea on exertion. Patient found to be positive for rhinovirus as well as hypomagnesemic and anemic with Hgb = 8.3 On physical exam he is resting comfortably, no acute distress, chronically ill in appearance Skinwarm, dry, intact HEENTmoist mucous membranes, neck supple Heart+ S1, S2, irregularly irregular, 3 out of 6 systolic ejection murmur on left sternal border LungsCTA Abdomensoft, nontender, nondistended Labs and images reviewed Assessment/[id number] male with multiple medical comorbidities presenting with fatigue, dyspnea on exertion, poor appetite. Most likely secondary to patient's underlying anemia Hgb = 8.3 today. He has received multiple transfusions in the past typically when his hemoglobin is less than 8. Low magnesium can contributing as well. Uncertain of significance of positive enterovirus testing as this has been positive persistently. Type and screen ordered. Patient will need to receive leukoreduced/irradiated blood as he has in the past. Magnesium repletion Supportive care -Closely monitor for infection - will give 1gm of Ceftriaxone daily given elevated Procalcitonin and immunosuppressed status, empiric coverage Remainder as above PG Care Time/CCT Total # of Minutes Spent Total Time Spent with Patient: Total time spent is greater than 50% in coordination of care (as documented) at patient's floor/unit and/or counseling patient: Coding Level of Care Code 35735 INT INP/OBS CARE 3/75MIN Diagnoses Warm autoimmune hemolytic anemia D59.11 Hypomagnesemia E83.42 Rhinovirus B34.8 Elevated troponin R79.89
--- NOTE | 2024-12-25 23:23 | XRay Report ---
Exam(s): XR CXR 1 VIEW EXAM: XR Chest, 1 View CLINICAL HISTORY: Reason for exam: Dyspnea. TECHNIQUE: Frontal view of the chest. COMPARISON: Chest x-ray 10/06/2024 FINDINGS: Lungs: The left base and costophrenic angle is excluded from the field- of-view. No consolidation. No overt edema. Pleural space: No pleural effusion. No pneumothorax. Heart: Cardiomegaly. IMPRESSION: 1. No acute cardiopulmonary abnormality. 2. Cardiomegaly. Electronically signed by: Emery Boudreaux MD 12/25/24 23:22 PM
[2024-12-25] MEDS ORDERED: SODIUM CHLORIDE 0.9% 100 ML IV PRN (23:57)
[2024-12-26] MEDS: MAGNESIUM SULFATE / D5W 1 GM/100 ML BAG IV SCH ×2 (00:06→11:41)
[2024-12-26] MEDS ORDERED: ONDANSETRON INJ 2 MG/ML 2 ML VIAL IV PRN (04:45)
[2024-12-26] MEDS ORDERED: MELATONIN 3 MG TAB PO PRN (04:45)
[2024-12-26] MEDS: ACYCLOVIR 400 MG TAB PO SCH (06:14)
[2024-12-26] MEDS: BUMETANIDE 1 MG TAB PO SCH (06:14)
[2024-12-26] MEDS: FOLIC ACID 1 MG TAB PO SCH (06:15)
[2024-12-26] MEDS: METOPROLOL SUCC 50MG EXT REL TAB PO SCH (06:15)
[2024-12-26] MEDS: PANTOprazole 40 MG TAB PO SCH (06:16)
[2024-12-26] MEDS: MYCOPHENOLATE MOFETIL 250 MG CAP PO SCH (06:16)
[2024-12-26] MEDS: TACROLIMUS 0.5 MG CAP PO SCH (06:17)
[2024-12-26] MEDS: cefTRIAXone SODIUM 2,000 MG/50 ML BAG IV SCH (06:19)
[2024-12-26] MEDS: MAGNESIUM OXIDE 400 MG TAB PO SCH (06:23)
[2024-12-26] MEDS: FERROUS SULFATE 325 MG TAB PO SCH (06:23)
[2024-12-26] MEDS: LEVOTHYROXINE SODIUM 125 MCG TABLET PO SCH (06:24)
[2024-12-26 07:40] LABS: Basophils # (auto) 0.04 K/uL (0.00-0.20); Basophils % (auto) 0.7 %; Eosinophils % (auto) 1.7 %; Hematocrit (blood only) 26.9 % (42.0-52.0); Hemoglobin 8.2 g/dl (14.0-18.0); Immature Granulocytes # (auto) 0.07 K/uL (0.01-0.20); Immature Granulocytes % (auto) 1.2 %; Lymphocytes # (auto) 0.36 K/uL (1.20-3.40); Mean Corpuscular Hemoglobin 32.4 pg (25.0-34.0); Mean Corpuscular Hgb Conc 30.5 g/dL (32.0-36.0); Mean Corpuscular Volume 106.3 fL (80.0-100.0); Mean Platelet Volume 10.2 fL (9.4-12.4); Monocytes # (auto) 0.55 K/uL (0.11-0.59); Monocytes % (auto) 9.2 %; Neutrophils # (auto) 4.89 K/uL (1.40-6.50); Neutrophils % (auto) 81.2 %; Platelet Count 146 K/uL (130-400); RDW Coefficient of Variation 17.9 % (11.5-14.5); RDW Standard Deviation 70.8 fL (36.4-46.3); Red Blood Count 2.53 M/uL (4.70-6.10); White Blood Count 6.01 K/ul (4.8-10.8)
--- NOTE | 2024-12-26 07:51 | Hospitalist Progress Note ---
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 Gonsalez, last transfusion 09/2024 - Hgb 8.3 (established transfusion threshold Hgb < 8) - 1-2g/dl lower than recent baseline, skeptical that this degree of anemia, both the absolute Hgb and relative change from baseline, would be enough to cause such prominent symptoms in isolation - 2 units irradiated pRBC ordered at time of admission - Hematology consulted, appreciate recs - Continue home meds - History and clinical impression favors dehydration stemming from diarrheal illness/poor PO intake as cause for presenting sx - start fluid resuscitation with LR @100mL/hour x2 bags - Pt with fairly delicate fluid balance - monitor vitals for resolution of relative hypotension and tachycardia, but also monitor for signs of volume overload - PT/OT eval and treat #Hypomagnesemia - Mag 1.1 on admission, S/P repletion - Follow electrolytes #+Rhinovirus on PCR: - Positive bio fire 08/22, 09/30, 12/25 - low suspicion for active viral infection given absence of typical URI sx - CXR without significant change - Procal 0.8, though patient is afebrile and without leukocytosis - suspect elevation secondary to renal insufficiency #Elevated troponin: - Elevated Trop x3 but essentially unchanged ~80, suspect 2/2 demand but will check an AM trop for completeness - Denies CP, palpitations #CKD stage 4/status post renal transplant - h/o FSGS and renal transplant 2009, follows with Dr. Oro, recent baseline consistently elevated in the 3.0-4.0 range on past several lab draws - Cr 3.11 on admission, near recent baseline - UA WNL - continue CellCept, Prograf, prednisone (pt reports currently 10mg qam) - Check AM BMP #HFpEF - - Echo 10/21/24 EF 55 to 59%, RV mildly dilated, LA severely enlarged, RA severely enlarged, diastolic left ventricular dysfunction, aortic root mildly enlarged, mild AR, mild MR, mild TR, moderate pulmonary hypertension, aortic valve with 3 leaflets. - CXR without significant evidence of volume overload - Strict I's and O's, Heart healthy, low-sodium diet - continue Bumex and metoprolol #A-fib RVR: - Suspect compensatory tachycardia in response to volume contraction - If failing to normalize with fluid resuscitation, consider additional spot dose of Metoprolol if BP allows - Continue home metoprolol and Eliquis #Sleep apnea- No CPAP at baseline #GERD- continue Protonix #Gout- continue Allopurinol #Hypothyroidism- continue Levothyroxine VTE ppx: SCDs, Eliquis FEN/GI: HH + Low Na diet, LR @100mL/hr x2 bags Admission and Anticipated Discharge Date Admission Date: December 26, 2024 Supervising Physician Co-Signing Physician Notes I personally examined the patient and verified all swanson points of history and exam, discussed case, and agree with decision making with Dr Antony Revisited HPIlast week he was in his usual state of health. He has a hard time exactly putting together the details but notes sometime over the weekendSa or Mondayhe started with a lot of diarrhea. He has a hard time quantifying it spontaneously, but on directed questioning it sounds like it was watery, and sometimes large-volume watery. Again he has a hard time quantifying how much other than noting that it was a lot through the daywhenever I asked him if it was a guesstimate of 10 episodes he felt like that was in the right ballpark. He did not have fevers chills or sweats. Since then he has been feeling much more weak and fatigued. No chest pain no shortness of breath. His appetite has been poor. In general he is awake alert oriented fatigued but no distress. HEENT normocephalic atraumatic mucous membranes slightly dry. Abdomen is soft nondistended nontender no masses organomegaly. Extremities without cyanosis or clubbing there is chronic appearing trace 1+ edema no calf tenderness. Labs and diagnostics noted, of note he has a urine bottle sitting on his nightstand that is fairly dark brown consistent with concentrated urine. Labs noted, hemoglobin about 8-1/2, bili 1.2 which is around his chronic range. Fatigue/weakness/malaisegiven his hemoglobin not that far from his baseline, and not in a profoundly low level, as well as the fact that his bilirubin is around his normal, I really doubt that the autoimmune hemolytic anemia is the factor driving his fatigue/malaise. In revisiting his history, it sounds like he probably had a viral gastroenteritis over the weekend, got dehydrated, and then from GI malaise and poor p.o. intake has not really been able to recover. He did note feeling better since coming through the ER. On chart review it seems like the main intervention that would have had any immediate impact would have been IV fluids. I do not see any evidence of infectionwe will stop the ceftriaxone (given his fairly recent C. difficile we will keep him on oral Vanco prophylaxis at least for a short period since he had the ceftriaxone before). Hold his Bumex for now. Follow into tomorrow. anticoagulated Subjective Patient seen at bedside, notes that he continues to feel generally fatigued and weak, cites this as primary reason for presenting to the hospital. Sx have been worsening since Monday. Sx started after patient came down with what sounds like viral gastroenteritis, was having up to 10 loose bowel movements daily. Additionally, poor PO intake over this time period. Feels that these sx are fairly similar to those during previous AIHA exacerbations. Denies chest pain, shortness of breath, palpitations. Denies orthopnea. Denies overt fevers or chills. Denies recent changes in medication. Review of Systems Review of Systems: as per HPI Physical Exam Physical Exam: Constitutional: no acute distress HEENT: NCAT, no conjunctival injection CV: Tachycardic with irregularly irregular rhythm, extremities well-perfused Resp: no increased work of breathing GI: nondistended MSK: no gross deformities Skin: warm, dry, no rash appreciated Neuro: alert, oriented, no focal neurologic deficit appreciated Results & Data Results & Data Vital Signs (Past 12 Hours) Vital Signs Temp Pulse Pulse Resp BP BP Pulse Ox 12/26/24 07:43 36.9 C 129 H 18 113/73 98 12/26/24 07:16 98 H 12/26/24 05:43 12/26/24 04:53 36.7 C 111 H 20 127/96 98 12/26/24 04:50 120 H 12/26/24 02:42 104 H 18 103/67 98 12/26/24 00:27 110 H 20 104/72 97 12/26/24 00:05 106 H 12/25/24 23:04 107 H 20 104/64 96 12/25/24 21:16 115 H 18 119/82 99 12/25/24 20:37 111 H 18 118/89 97 12/25/24 20:27 97 12/25/24 20:06 118 H 12/25/24 19:58 37.3 C 115 H 20 100/66 99 O2 Del Method 12/26/24 07:43 Room Air 12/26/24 07:16 12/26/24 05:43 Room Air 12/26/24 04:53 Room Air 12/26/24 04:50 12/26/24 02:42 12/26/24 00:27 12/26/24 00:05 12/25/24 23:04 12/25/24 21:16 12/25/24 20:37 12/25/24 20:27 Nasal Cannula 12/25/24 20:06 12/25/24 19:58 Room Air Resident Activity Tracking Resident Involvement: Resident Care Provided Care Provided: Adult Hospital Medicine
[2024-12-26 08:16] LABS: Calcium 8.7 mg/dl (8.6-10.3); Magnesium 1.6 mg/dl (1.7-2.4); Potassium 3.8 mmol/L (3.5-5.1)
[2024-12-26 08:22] LABS: Creatinine Clr Calc Pharmacy 27.8 ml/min
[2024-12-26] MEDS: ACETAMINOPHEN 325 MG TAB PO PRN (09:33)
[2024-12-26] MEDS: VANCOMYCIN HCL 125 MG/2.5ML SOLN PO SCH (09:33)
[2024-12-26] MEDS: CHERRY SYRUP 5 ML UDP PO SCH (09:33)
[2024-12-26] MEDS: allopurinoL 300 MG TAB PO SCH (09:34)
[2024-12-26] MEDS: predniSONE 10 MG TABLET PO SCH (09:34)
[2024-12-26] MEDS: ASPIRIN 81 MG ECTAB PO SCH (09:34)
[2024-12-26] MEDS: APIXABAN 5 MG TABLET PO SCH (09:35)
[2024-12-26] MEDS: METOPROLOL TARTRATE 25 MG TAB PO ONE (15:02)
[2024-12-26] MEDS: LACTATED RINGER'S 1,000 ML IV SCH (17:17)
--- NOTE | 2024-12-26 18:13 | Billing Data ---
Date of Service December 26, 2024 Coding Level of Care Code 61889 SUB INP/OBS CARE MIN
--- NOTE | 2024-12-26 22:47 | Electrocardiogram Report ---
Test Reason : Blood Pressure : */* mmHG Vent. Rate : 111 BPM Atrial Rate : * BPM P-R Int : * ms QRS Dur : 156 ms QT Int : 398 ms P-R-T Axes : * -39 58 degrees QTcB Int : 541 ms Atrial fibrillation with rapid ventricular response Left axis deviation Right bundle branch block T wave abnormality, consider lateral ischemia Abnormal ECG When compared with ECG of 01-Oct-2024 23:37, T wave inversion more evident in Lateral leads Confirmed by Chauncey Dahl ([id number]) on 12/26/2024 10:46:58 PM Referred By: REFERRED SELF Confirmed By: Chauncey Dahl
[2024-12-26 23:09] LABS: Hematocrit (blood only) 22.9 % (42.0-52.0); Hemoglobin 7.4 g/dl (14.0-18.0)
--- NOTE | 2024-12-26 23:11 | Communication Note ---
Date of Service: December 26, 2024 Was contacted by RN to notify hypotension with systolic in the 80s and diastolic in the 50s with associated tachycardia in 100s - 110s. All other VS wnl. Arrived to bedside to evaluate, patient awake and alert and denies having any new symptoms such as chest pain, shortness of breath, pain, or any other symptom. Physical exam with rhonchi in mid to lower lung acuna L>R with normal respiratory effort, no edema in bilateral lower extremities, and normal sounds and heart auscultation. Rest of physical exam unremarkable. It is possible that current hypotension could be related to hypovolemia consequent of recent diarrheal illness along with pre-existing chronic anemia. However, given patient's history of MAHA as well as chronic steroid use with history of hypotension with lower random cortisol in previous admissions requiring stress dosing (?secondary adrenal insufficiency), did order H&H and a random cortisol. Hemoglobin decreased from 8.2 to 7.4, which could possibly be a dilutional effect given IV fluids that had been running for most of the day. Nevertheless, given cardiac history as well as current hypotension and tachycardia will transfuse 1 unit of irradiated PRBC and recheck hemoglobin as part of a.m. labs. Random cortisol level was 1.76, which in the setting of acute illness and in conjunction with initial hypovolemia could explain hypotension. Will order hydrocortisone 100 mg IV for stress dosing and then hydrocortisone 50 mg Q6 for maintenance. Resident Activity Tracking Resident Involvement: Resident Care Provided Care Provided: Adult [facility] Medicine
[2024-12-26] MEDS ORDERED: SODIUM CHLORIDE 0.9% 100 ML IV PRN (23:21)
[2024-12-27] MEDS: HYDROCORTISONE SOD 100 MG in SYRINGE 0 ML IV STA (04:56)
[2024-12-27] MEDS: HYDROCORTISONE SOD 50 MG in SYRINGE 0 ML IV SCH (05:25)
--- NOTE | 2024-12-27 07:23 | Hospitalist Progress Note ---
Date of Service December 27, 2024 Assessment & Plan (1) Warm autoimmune hemolytic anemia: (2) Hypomagnesemia: (3) Rhinovirus: (4) Elevated troponin: Plan Patient is a 64-year-old male with past medical history of HFpEF, A-fib on Eliquis, ESRD, WAHA, and additional chronic medical conditions who presented to the ED due to fatigue, poor appetite, dyspnea on exertion for several days. Generalized weakness/ history of warm autoimmune hemolytic anemia/hypotension WAHA diagnosed July 2023, follows with hematology Dr. Gonsalez, last transfusion 09/2024 - Hgb 8.3 (established transfusion threshold Hgb < 8) - 1-2g/dl lower than recent baseline, skeptical that this degree of anemia, both the absolute Hgb and relative change from baseline, would be enough to cause such prominent symptoms in isolation - given 2 units irradiated pRBC on admission; overnight 12/26-12/27, pt hypotensive and tachycardic with decreased Hgb to 7.4- pt given another unit of pRBCs- d/c stress steroids - History and clinical impression favors dehydration stemming from diarrheal illness/poor PO intake as cause for presenting sx; continue adequate PO intake CKD stage 4/status post renal transplant - h/o FSGS and renal transplant 2009, follows with Dr. Oro, recent baseline consistently elevated in the 3.0-4.0 range on past several lab draws - Cr 3.11 on admission, near recent baseline - UA WNL - continue CellCept, Prograf, prednisone (pt reports currently 10mg qam) Hypomagnesemia - mag 1.1 on admission; s/p repletion +Rhinovirus on PCR - Positive bio fire 08/22, 09/30, 12/25 - low suspicion for active viral infection given absence of typical URI sx - CXR without significant change - procal mildly elevated at 0.8, though patient is afebrile and without leukocytosis - suspect elevation secondary to renal insufficiency; discontinue ceftriaxone- will leave vanco for another day as ppx for c diff with recent ABX Elevated troponin - Elevated trop x3 but essentially unchanged ~80 with increase to 92, suspect 2/2 demand - continues w/o symptoms HFpEF - Echo 10/21/24 EF 55 to 59%, RV mildly dilated, LA severely enlarged, RA severel y enlarged, diastolic left ventricular dysfunction, aortic root mildly enlarged, mild AR, mild MR, mild TR, moderate pulmonary hypertension, tricuspid aortic valve - CXR without significant evidence of volume overload - Strict I's and O's, Heart healthy, low-sodium diet - hold bumex, continue metoprolol A-fib w/ RVR - Suspect compensatory tachycardia in response to volume contraction - If failing to normalize with fluid resuscitation, consider additional spot dose of Metoprolol if BP allows - Continue home metoprolol and Eliquis Sleep apnea- No CPAP at baseline GERD- continue Protonix Gout- continue Allopurinol Hypothyroidism- continue Levothyroxine VTE ppx: Eliquis Diet: heart healthy, low Na Code: conditional; no defibrillation or chest compressions, only intubation/ventilation Admission and Anticipated Discharge Date Admission Date: December 25, 2024 Supervising Physician Co-Signing Physician Notes I personally examined the patient and verified all swanson points of history and exam, discussed case, and agree with decision making with Dr Medley Feeling better than he did yesterday, but still not yet back to baseline. Has been up and around some, worked with PT, and feels like in that respect he would be strong enough to go home, but just not quite yet well enough to go home. I agree. He is eating better. Labs and diagnostics reviewed. As we are discussing his hemoglobin, he does note that he was getting some back and flank pain that he seems to get whenever he has hemolytic anemia at play. Vitals noted, in general he is awake and alert less fatigued than yesterday but still somewhat fatigued no distress. HEENT normocephalic atraumatic mucous membranes moist. Breathing unlabored no accessory muscle use good effort. Skin without rashes pallor or icterus. Neuro without focal deficits. Labs and diagnostics noted. Fatigueseems that the main cause of his fatigue was probably dehydrationhe gives a story quite consistent with having a viral gastroenteritis over the weekend, never really bouncing back. He did start to feel better after fluids, but then whenever his blood pressure was lower, his hemoglobin was as wellit would certainly be reasonable that the physiologic stress of being sick could also precipitate autoimmune hemolytic anemia. He was transfused 1 unit of packed red cells last nighthe is feeling better, but his hemoglobin was still 7.7given the concern of an active hemolytic process, combined with endorgan ischemia as evidenced by a demand ischemia troponin of 92 and rising (no concern of ACSbut will follow troponin), as well as ongoing fatigue and symptoms that he gets whenever he has hemolysiswill give another unit of packed red cells. Follow-up CBC and CMP in the morning to follow his bilirubin as well. Home soon, but we both agree that he needs to be feeling a bit better and his whole situation needs to be a bit more stable. Subjective Pt states that he is feeling well this morning. He was unaware of his low BP last night. He would like to go home. Review of Systems Review of Systems: As per HPI Physical Exam Physical Exam: Constitutional: ill appearing, no acute distress HEENT: normocephalic, no conjunctival injection CV: regular rhythm, tachycardic, no murmur Respiratory: Clear to auscultation bilaterally. No rhonchi, wheezes, or crackles. No increased work of breathing MSK: no gross deformities noted Skin: warm, dry, no rashes Neuro: alert, oriented, no FND noted Results & Data Results & Data Vital Signs (Past 12 Hours) Vital Signs Temp Pulse Pulse Resp BP BP Pulse Ox 12/27/24 06:45 92 H 12/27/24 04:03 36.6 C 112 H 18 99/55 L 94 12/27/24 02:52 36.3 C L 99 H 16 94/60 L 96 12/27/24 01:52 37.0 C 99 H 18 95/57 L 12/27/24 00:52 36.2 C L 98 H 18 95/60 L 96 12/27/24 00:22 36.6 C 99 H 18 93/57 L 97 12/27/24 00:07 36.8 C 100 H 18 98/64 L 95 12/26/24 23:46 36.5 C 102 H 18 102/62 95 12/26/24 23:08 111 H 82/54 L 12/26/24 22:14 36.8 C 104 H 20 89/56 L 98 12/26/24 21:41 94 H 12/26/24 19:24 36.7 C 113 H 18 90/53 L 93 O2 Del Method 12/27/24 06:45 12/27/24 04:03 Room Air 12/27/24 02:52 12/27/24 01:52 12/27/24 00:52 12/27/24 00:22 12/27/24 00:07 12/26/24 23:46 12/26/24 23:08 12/26/24 22:14 Room Air 12/26/24 21:41 12/26/24 19:24 Room Air Resident Activity Tracking Resident Involvement: Resident Care Provided Care Provided: Adult Hospital Medicine
[2024-12-27 07:51] LABS: Hematocrit (blood only) 24.2 % (42.0-52.0); Hemoglobin 7.8 g/dl (14.0-18.0); Mean Corpuscular Hemoglobin 32.2 pg (25.0-34.0); Mean Corpuscular Hgb Conc 32.2 g/dL (32.0-36.0); Mean Platelet Volume 10.3 fL (9.4-12.4); Platelet Count 122 K/uL (130-400); RDW Coefficient of Variation 17.2 % (11.5-14.5); RDW Standard Deviation 63.4 fL (36.4-46.3); Red Blood Count 2.42 M/uL (4.70-6.10); White Blood Count 8.33 K/ul (4.8-10.8)
[2024-12-27 08:13] LABS: Basophils # (auto) 0.02 K/uL (0.00-0.20); Basophils % (auto) 0.2 %; Eosinophils # (auto) 0.03 K/uL (0.00-0.50); Eosinophils % (auto) 0.4 %; Immature Granulocytes # (auto) 0.05 K/uL (0.01-0.20); Immature Granulocytes % (auto) 0.6 %; Lymphocytes # (auto) 0.22 K/uL (1.20-3.40); Lymphocytes % (auto) 2.6 %; Monocytes # (auto) 0.25 K/uL (0.11-0.59); Neutrophils # (auto) 7.76 K/uL (1.40-6.50); Neutrophils % (auto) 93.2 %; Polychromasia 1+
[2024-12-27 08:24] LABS: Calcium 8.7 mg/dl (8.6-10.3); Potassium 4.5 mmol/L (3.5-5.1)
[2024-12-27 08:30] LABS: BUN Creatinine Ratio 23.6 (10-20); Creatinine Clr Calc Pharmacy 27.1 ml/min
[2024-12-27 08:37] LABS: Troponin I High Sensitivity 92.5 pg/ml (0-20)
[2024-12-27] MEDS: LACTATED RINGER'S 1,000 ML IV SCH (16:48)
[2024-12-27 17:23] LABS: Hematocrit (blood only) 23.3 % (42.0-52.0); Hemoglobin 7.7 g/dl (14.0-18.0); Mean Corpuscular Hemoglobin 32.2 pg (25.0-34.0); Mean Corpuscular Volume 97.5 fL (80.0-100.0); Mean Platelet Volume 10.9 fL (9.4-12.4); Platelet Count 140 K/uL (130-400); RDW Coefficient of Variation 17.2 % (11.5-14.5); RDW Standard Deviation 61.7 fL (36.4-46.3); Red Blood Count 2.39 M/uL (4.70-6.10); White Blood Count 7.76 K/ul (4.8-10.8)
[2024-12-27 17:43] LABS: Basophils # (auto) 0.01 K/uL (0.00-0.20); Basophils % (auto) 0.1 %; Immature Granulocytes # (auto) 0.04 K/uL (0.01-0.20); Immature Granulocytes % (auto) 0.5 %; Lymphocytes # (auto) 0.18 K/uL (1.20-3.40); Lymphocytes % (auto) 2.3 %; Monocytes # (auto) 0.16 K/uL (0.11-0.59); Monocytes % (auto) 2.1 %; Neutrophils # (auto) 7.37 K/uL (1.40-6.50); RBC Morphology Unremarkable
[2024-12-27] MEDS ORDERED: SODIUM CHLORIDE 0.9% 100 ML IV PRN (17:50)
--- NOTE | 2024-12-27 17:55 | Billing Data ---
Date of Service December 27, 2024 Coding Level of Care Code 51391 SUB INP/OBS CARE MIN
[2024-12-28 06:51] LABS: Hematocrit (blood only) 24.2 % (42.0-52.0); Hemoglobin 8.1 g/dl (14.0-18.0); Mean Corpuscular Hemoglobin 32.1 pg (25.0-34.0); Mean Corpuscular Hgb Conc 33.5 g/dL (32.0-36.0); Mean Platelet Volume 10.8 fL (9.4-12.4); Platelet Count 146 K/uL (130-400); RDW Coefficient of Variation 17.2 % (11.5-14.5); RDW Standard Deviation 60.3 fL (36.4-46.3); Red Blood Count 2.52 M/uL (4.70-6.10); White Blood Count 8.94 K/ul (4.8-10.8)
--- NOTE | 2024-12-28 07:10 | Hospitalist Progress Note ---
Date of Service December 28, 2024 Assessment & Plan (1) Warm autoimmune hemolytic anemia: (2) Hypomagnesemia: (3) Rhinovirus: (4) Elevated troponin: Plan Patient is a 64-year-old male with past medical history of HFpEF, A-fib on Eliquis, ESRD, WAHA, and additional chronic medical conditions who presented to the ED due to fatigue, poor appetite, dyspnea on exertion for several days. Generalized weakness/ history of warm autoimmune hemolytic anemia/hypotension WAHA diagnosed July 2023, follows with hematology Dr. Gonsalez, last transfusion 09/2024 - Hgb has ranged from 7-8; ? if some degree of anemia could be contributing to weakness/hypotension - given 2 units irradiated pRBC on admission; addiotnal unit given 12/27 with Hgb 7.7-> 8.1 - History and clinical impression favors dehydration stemming from diarrheal illness/poor PO intake as cause for presenting sx; continue adequate PO intake- hypotension resolved s/p transfusions and improved PO intake CKD stage 4/status post renal transplant - h/o FSGS and renal transplant 2009, follows with Dr. Oro, recent baseline consistently elevated 2.5-3.5 - UA WNL - continue CellCept, Prograf, prednisone (pt reports currently 10mg qam) - creatine 2.96 -> 3.59; ?prerenal, although now with better PO intake and s/p transfusion - consult nephrology, appreciate recommendations Hypomagnesemia - mag 1.1 on admission; s/p repletion +Rhinovirus on PCR - Positive bio fire 08/22, 09/30, 12/25 - low suspicion for active viral infection given absence of typical URI sx - CXR without significant change - procal mildly elevated at 0.8, though patient is afebrile and without leukocytosis - suspect elevation secondary to renal insufficiency; discontinue ceftriaxone- will leave vanco for another day as ppx for c diff with recent ABX Elevated troponin - Elevated trop x3 but essentially unchanged ~80 with increase to 92, suspect 2/2 demand - continues w/o symptoms HFpEF - Echo 10/21/24 EF 55 to 59%, RV mildly dilated, LA severely enlarged, RA severely enlarged, diastolic left ventricular dysfunction, aortic root mildly enlarged, mild AR, mild MR, mild TR, moderate pulmonary hypertension, tricuspid aortic valve - CXR without significant evidence of volume overload - Strict I's and O's, Heart healthy, low-sodium diet - hold bumex, continue metoprolol A-fib w/ RVR - Suspect compensatory tachycardia in response to volume contraction - If failing to normalize with fluid resuscitation, consider additional spot dose of Metoprolol if BP allows - Continue home metoprolol and Eliquis Sleep apnea- No CPAP at baseline GERD- continue Protonix Gout- continue Allopurinol Hypothyroidism- continue Levothyroxine VTE ppx: Eliquis Diet: heart healthy, low Na Code: conditional; no defibrillation or chest compressions, only intubation/ventilation Admission and Anticipated Discharge Date Admission Date: December 25, 2024 Supervising Physician Co-Signing Physician Notes I personally examined the patient and verified all swanson points of history and exam, discussed case, and agree with decision making with Dr Mcintosh feeling ok but understands labs being worse. nephro input appreciated. Vitals noted, in general he is awake and alert less fatigued than yesterday but still somewhat fatigued no distress. HEENT normocephalic atraumatic mucous membranes moist. Breathing unlabored no accessory muscle use good effort. Skin without rashes pallor or icterus. Neuro without focal deficits. Labs and diagnostics noted. Fatigueseems that the main cause of his fatigue was probably dehydrationhe gives a story quite consistent with having a viral gastroenteritis over the weekend, never really bouncing back. feeling better. with autoimmune hemolytic anemia it appears that the physiologic stress may have precipitated some hemolysis - has been given 2 units PRBC (Hgb and renal issues fit with hemolysis, bili doesn't - but overall situation appearing more stable) - continue fluids, appreciate renal assistance given the late rise in creatinine after fluids/blood - but still most c/w prerenal insult initially. home once Cr improving, as long as no new factors arise. otherwise as above Subjective Doing well this morning, without complaints. Still anxiety to get home. Able to ambulate in room without issue. Review of Systems Review of Systems: As per above Physical Exam Physical Exam: Constitutional: well-appearing, no acute distress HEENT: NCAT, no conjunctival injection CV: regular rhythm, no murmur appreciated, extremities well-perfused Resp: CTABL, no wheezes/rales/rhonchi appreciated, no increased work of breathing MSK: no gross deformities appreciated Skin: warm, dry, no rash appreciated Neuro: alert, oriented, no focal neurologic deficit appreciated Results & Data Results & Data Vital Signs (Past 12 Hours) Vital Signs Temp Pulse Pulse Resp BP BP Pulse Ox 12/27/24 23:14 36.4 C L 108 H 18 109/72 99 12/27/24 22:02 96 H 12/27/24 21:20 36.5 C 99 H 18 99/63 L 94 12/27/24 21:18 36.5 C 99 H 18 99/63 L 94 12/27/24 20:18 37.0 C 97 H 18 98/65 L 95 12/27/24 19:18 36.5 C 104 H 18 102/69 98 O2 Del Method 12/27/24 23:14 Room Air 12/27/24 22:02 12/27/24 21:20 12/27/24 21:18 12/27/24 20:18 12/27/24 19:18 Resident Activity Tracking Resident Involvement: Resident Care Provided Care Provided: Adult Hospital Medicine
[2024-12-28 07:13] LABS: Albumin Globulin Ratio 1.1 (0.9-2); Albumin Level 3.1 gm/dl (3.4-5.0); BUN Creatinine Ratio 19.8 (10-20); Bilirubin,Total 1.1 mg/dl (0.2-1.0); Calcium 8.8 mg/dl (8.6-10.3); Creatinine Clr Calc Pharmacy 22.6 ml/min; Globulin 2.9 gm/dl (2.5-4.0); Potassium 4.3 mmol/L (3.5-5.1)
[2024-12-28 07:16] LABS: Basophils # (auto) 0.01 K/uL (0.00-0.20); Basophils % (auto) 0.1 %; Immature Granulocytes # (auto) 0.07 K/uL (0.01-0.20); Immature Granulocytes % (auto) 0.8 %; Lymphocytes # (auto) 0.23 K/uL (1.20-3.40); Lymphocytes % (auto) 2.6 %; Monocytes # (auto) 0.47 K/uL (0.11-0.59); Monocytes % (auto) 5.3 %; Neutrophils # (auto) 8.16 K/uL (1.40-6.50); Neutrophils % (auto) 91.2 %
[2024-12-28 07:22] LABS: Troponin I High Sensitivity 74.9 pg/ml (0-20)
[2024-12-28] MEDS: predniSONE 10 MG TABLET PO ONE (12:29)
--- NOTE | 2024-12-28 12:48 | Nephrology Consultation ---
Date of Consultation December 28, 2024 Assessment & Plan (1) Acute kidney injury: * Acute on chronic kidney injury likely multifactorial including anemia, hypotension, dehydration (recent diarrheal illness) and rhinovirus infection * Electrolyte balance is acceptable. 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 Baseline creatinine has risen to 3.03.5 * Continue tacrolimus, MMF and prednisone as previously prescribed (3) Autoimmune hemolytic anemia: * Monitor H&H closely. If patient develops recurrent anemia check LDH, haptoglobin, peripheral smear and consider hematology evaluation (4) Rhinovirus: * Patient has tested rhinovirus positive since 09/10 hospitalization History of Present Illness Reason for Consultation: KRISSY/CKD, LURT Attending Physician: Nic Littlejohn DO History of Present Illness Mr. Mandel is a 64-year-old white male who was seen at the request of the [facility] hospitalist service for evaluation of KRISSY/CKD, LURT. Information for the HPI is obtained from direct patient interview and review of the EMR. HPI is summarized as follows: Mr. 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 He was on hemodialysis for 1-1/2 years before he received a transplant from his stepson. This was performed at [facility] 02/2010. 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 Post transplant creatinine stabilized at 1.4. UACR has been 0.7. MEAGAN inhibitor therapy was stopped due to low blood pressure. Current immunosuppressive regimen consists of tacrolimus 0.5 mg BID, MMF 500 mg BID, prednisone 5 mg daily. Patient remains on metoprolol 50 mg BID due to history of ASCVD, prior CVA, atrial fibrillation. Mr. Mandel's medical history is also significant for warm autoimmune hemolytic anemia. First instance was in January 2024. He required blood transfusion and Velcade therapy. Mr. Mandel has since had several hospitalizations complicated by KRISSY. Baseline creatinine has now risen to 3.0-3.5. Mr. Mandel was admitted to the [facility] 12/25/24 for evaluation of STOCK. He reported recent diarrheal illness, tested + for rhinovirus and was found to have Hgb 7.4. He was transfused 2 units PRBC. Hgb improved to 8.1 but serum Cr is now 3.5. Allergies Allergy/AdvReac Type Severity Reaction Status Date / Time clopidogrel [From Plavix] Allergy Unknown Unknown Verified 12/06/24 09:20 Rpyarhw-LRJ-UcQ Reductase AdvReac Intermediate myalgias Verified 12/06/24 09:20 Inhibitor [Vlbytcm-Eoc-Pcf Reductase Inhibitor] Home Medications Medication Instructions Recorded Confirmed Type mycophenolate mofetil 250 mg 500 mg (2 x 250 mg) PO BID #360 05/29/20 12/25/24 Rx capsule caps amoxicillin 500 mg capsule 2,000 mg PO DIRECTED PRN PRIOR 07/29/20 12/25/24 History TO DENTAL PROCEDURES folic acid 1 mg tablet 1 mg PO BID #180 tabs 09/20/23 12/25/24 Rx pantoprazole 40 mg tablet,delayed 40 mg PO BID #180 tabs 12/06/23 12/25/24 Rx release calcium carbonate 500 mg PO QAM 01/21/24 12/25/24 History ferrous sulfate 325 mg (65 mg 325 mg PO BID #60 tabs 02/05/24 12/25/24 Rx iron) tablet acyclovir 400 mg tablet 400 mg PO BID 05/07/24 12/25/24 History ondansetron 4 mg disintegrating 4 mg PO Q8 PRN nausea #20 tabs 05/22/24 12/25/24 Rx tablet magnesium oxide 500 mg PO BID 08/09/24 12/25/24 History albuterol sulfate 90 mcg/actuation 2 inh inhalation Q6H PRN shortness 08/25/24 12/25/24 Rx aerosol inhaler of breath or wheezing #8.5 grams danazol 200 mg capsule 200 mg PO BID 09/13/24 12/25/24 History prednisone 5 mg tablet 5 mg PO QDB 09/24/24 12/25/24 History levothyroxine 125 mcg tablet 125 mcg PO QAM #90 tabs 09/27/24 12/25/24 Rx apixaban 5 mg tablet (Eliquis) 5 mg PO BID #90 tabs 10/12/24 12/25/24 Rx acetaminophen 325 mg tablet 650 mg PO Q4H PRN Pain 11/14/24 12/25/24 History aspirin 81 mg tablet,delayed 81 mg PO DAILY 11/14/24 12/25/24 History release (Adult Aspirin Regimen) cholecalciferol (vitamin D3) 25 25 mcg PO DAILY 11/14/24 12/25/24 History mcg (1,000 unit) capsule metoprolol succinate 50 mg 50 mg PO BID #90 tabs 11/14/24 12/25/24 Rx tablet,extended release 24 hr vitamin B complex-vitamin C-folic 1 tab PO BID 11/14/24 12/25/24 History acid 0.8 mg tablet (Renal Vitamin) bumetanide 1 mg tablet 1 mg PO BID #70 tabs 12/06/24 12/25/24 Rx tacrolimus 0.5 mg capsule, 0.5 mg PO Q12H Dx: Z94.0 kidney 12/13/24 12/25/24 Rx immediate-release transplant #60 caps allopurinol 300 mg tablet 300 mg PO DAILY 12/25/24 12/25/24 History Patient History Medical History Infection of finger Hx of sepsis due to pneumonia, ~07/26/24, hospitalized at [facility] Erosive esophagitis hx, EGD 08/2023 History of Clostridioides difficile infection dx 09/14/24, [facility]; 09/24/24, per pt, "will be finishing abx in next day or so" CKD (chronic kidney disease) f/u fl nephrology Bilateral leg edema "has some, has gotten better" Hx of adrenal insufficiency Hx of right bundle branch block f/u fl cardiology History of recent hospitalization pt admitted to [facility] multiple times over 2023 (01/21/24, 05/2024-sx, 07/13/24, 07/26/24, 08/22/24, 08/24/24); most recent visit 08/24/24 per records "63-year-old male with past medical history significant for HFpEF, A-fib, ESRD, WAHA, and additional chronic medical conditions who is presenting for sudden onset of chest pain with shortness of breath after exertion following eating out at [employer] followed by increased activity with cutting wood and developed chest pain. CXR with evidence for volume overload and was provided IV Lasix last nitro on admission with improvement/resolution of symptoms. Also with KRISSY that was likely due to hypotension/hypoperfusion and increased diuretic use recently; improving. Also with A-fib RVR, suspect due to increased salt load/increased activity/untreated CHERELLE." Rhinovirus infection Hypomagnesemia Hx of gout Hx of congestive heart failure Sleep apnea, obstructive no device Hypocalcemia hx Weakness Atrial fibrillation with rapid ventricular response controlled w/ metoprolol; f/u mn cardiology Hypotension pt unaware? 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 Abdominal aortic aneurysm 4.9 cm on 01/2023 chest CTA; monitoring History of colon polyps Retroperitoneal mass lesion biopsy negative for malignancy 05/2022 per transplant record 03/17/23 Pneumonia hx, ~08/23/24 Adrenal nodule monitored by PCP Arthritis On prednisone therapy Rosales's esophagus with esophagitis Atrial flutter hx 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 Thoracic ascending aortic aneurysm 4.[address] 01/19/24 Hypertension controlled, stable per pt Limb alert care status left arm restriction History of blood transfusion ~07/2024 Hx of herpetic maria History of COVID-19 07/2020- covid pneumonia, hospitalized; resolved History of renal dialysis prior to kidney transplant; has dialysis fistula left arm History of CVA (cerebrovascular accident) 2008, mild memory changes Surgical History History of total right hip arthroplasty Hx of kidney transplant 02/2010- [facility] [place] History of esophagogastroduodenoscopy (EGD) Hx of cholecystectomy Hx of exploratory laparotomy History of colonoscopy Family History Grandmother (Maternal) Alzheimer disease Mother Depression Denies family history of Ovarian cancer Prostate cancer Diabetes Heart disease Myocardial infarction Breast cancer Lung cancer COPD (chronic obstructive pulmonary disease) Colorectal cancer Hypertension Stroke Social History Smoking Status: Never smoker Second Hand Exposure: No; Do You Dip or Chew Tobacco: No; Hx Alcohol Use: No Hx Substance Use: No 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: Spanish Communication Ability: Effective Visual Impairment: No Limitations Hearing Ability: Normal Bucket Operator Required: No Beliefs That Will Affect Care: None marital status: Current Living Situation: Spouse current occupational status: employed current occupation: [employer] How many Children do You have: 1 Feels Safe at Home: Yes Childhood Exposure to Second-Hand Smoke: No Dental Care, Regularly: Yes Seatbelt Use: sometimes Sunscreen Use: No Assistive Devices: Cane and Walker Review of Systems Constitutional: no fever Eyes: no problem reported Ear, Nose, Mouth, Throat: no problem reported Respiratory: no cough and no dyspnea Cardiovascular: no chest pain Gastrointestinal: no abdominal pain, no nausea, no vomiting and no diarrhea/loose stools Genitourinary: no dysuria, no urinary hesitancy or no hematuria Physical Exam Constitutional: not in distress Eyes: PERRL, conjunctivae normal, anicteric sclerae ENMT: external ear and nose normal, oropharynx normal Neck: trachea midline, no thyromegaly Respiratory: normal respiratory effort, lungs clear to auscultation Cardiovascular: Rate/Rhythm: regular rate and regular rhythm Extremities: + edema (1+ pretibial pitting edema) Gastrointestinal (Abdomen): normal bowel sounds, soft, nontender, no hepatosplenomegaly Musculoskeletal: Extremities: + hand abnormality (sausage shaped fingers R hand, tophi L middle finger) Skin: no rashes, warm and dry Neurologic: awake; not confused Results & Data Vital Signs (Past 12 Hours) Vital Signs Temp Pulse Pulse Resp BP Pulse Ox O2 Del Method 12/28/24 11:08 36.7 C 95 H 18 117/76 97 Room Air 12/28/24 07:59 36.5 C 95 H 18 124/80 97 Room Air 12/28/24 06:45 93 H Laboratory Results Laboratory Results WBC 8.94 K/ul (4.8-10.8) 12/28/24 06:25 RBC 2.52 M/uL (4.70-6.10) L 12/28/24 06:25 Hgb 8.1 g/dl (14.0-18.0) L 12/28/24 06:25 Hct 24.2 % (42.0-52.0) L 12/28/24 06:25 MCV 96.0 fL (80.0-100.0) 12/28/24 06:25 MCH 32.1 pg (25.0-34.0) 12/28/24 06:25 MCHC 33.5 g/dL (32.0-36.0) 12/28/24 06: RDW Std Deviation 60.3 fL (36.4-46.3) H 12/28/24 06: RDW Coeff of Jaye 17.2 % (11.5-14.5) H 12/28/24:25 Plt Count 146 K/uL (130-400) 12/28/24: MPV 10.8 fL (9.4-12.4) 12/28/24 06:25 Immature Gran % (Auto) 0.8 % 12/28/24 06: Neut % (Auto) 91.2 % 12/28/24: Lymph % (Auto) 2.6 % 12/28/24 06:25 Powell % (Auto) 5.3 % 12/28/24 06:25 Eos % (Auto) 0.0 % 12/28/24:25 Baso % (Auto) 0.1 % 12/28/24:25 Neut # (Auto) 8.16 K/uL (1.40-6.50) H 12/28/24 06:25 Lymph # (Auto) 0.23 K/uL (1.20-3.40) L 12/28/24:25 Powell # (Auto) 0.47 K/uL (0.11-0.59) 12/28/24 06:25 Eos # (Auto) 0.00 K/uL (0.00-0.50) 12/28/24:25 Baso # (Auto) 0.01 K/uL (0.00-0.20) 12/28/24 06:25 Immature Gran # (Auto) 0.07 K/uL (0.01-0.20) 12/28/24 06:25 RBC Morphology Unremarkable 12/27/24 17:03 Polychromasia 1+ 12/27/24 07:39 PT 13.6 Seconds (9.0-12.0) H 12/25/24 21: INR 1.3 (0.9-1.1) H 12/25/24 21: VBG pH 7.40 (7.36-7.41) 12/25/24 20:30 VBG pCO2 32 mmHg (38-50) L 12/25/24 20:30 VBG pO2 43 mmHg 12/25/24 20:30 VBG HCO3 20 mmol/L 12/25/24 20: VBG O2 Saturation 78.5 % 12/25/24 20:30 VBG Base Excess -4.0 mEq/L 12/25/24 20:30 Sodium 133 mmol/L (136-145) L 12/28/24 06:25 Potassium 4.3 mmol/L (3.5-5.1) 12/28/24 06:25 Chloride 102 mmol/L (98-107) 12/28/24 06:25 Carbon Dioxide 21 mmol/L (21-32) 12/28/24 06:25 Anion Gap 10 (3-11) 12/28/24 06:25 BUN 71 mg/dl (6-23) H 12/28/24 06:25 Creatinine 3.59 mg/dl (0.6-1.4) H D 12/28/24 06:25 Est Cr Clr Drug Dosing 22.6 ml/min 12/28/24 06:25 eGFR 18.13 12/28/24 06:25 BUN/Creatinine Ratio 19.8 (10-20) 12/28/24 06:25 Glucose 114 mg/dl (70-99(Fasting)) H 12/28/24 06:25 Lactate 0.8 mmol/L (0.4-2.0) 12/25/24 21: Calcium 8.8 mg/dl (8.6-10.3) 12/28/24 06:25 Magnesium 1.6 mg/dl (1.7-2.4) L 12/26/24 07:02 Total Bilirubin 1.1 mg/dl (0.2-1.0) H 12/28/24 06:25 AST 22 U/L (13-39) 12/28/24 06:25 ALT 14 U/L (7-52) 12/28/24 06:25 Alkaline Phosphatase 83 U/L (34-104) 12/28/24: Troponin I High Sens 74.9 pg/ml (0-20) H* D 12/28/24 06: B-Natriuretic Peptide 394 pg/ml (0-100) H 12/25/24 20:17 Total Protein 6.0 gm/dl (6.0-8.3) 12/28/24 06:25 Albumin 3.1 gm/dl (3.4-5.0) L 12/28/24 06: Globulin 2.9 gm/dl (2.5-4.0) 12/28/24 06: Albumin/Globulin Ratio 1.1 (0.9-2) 12/28/24 06: Procalcitonin 0.80 ng/ml (0-0.5) H 12/25/24 20:30 Random Cortisol 1.76 mcg/dl 12/26/24 22:46 Urine Color Dark Yellow 12/25/24 21:16 Urine Appearance Clear (Clear) 12/25/24 21:16 Urine pH 5.0 (4.5-7.5) 12/25/24 21:16 Ur Specific Champion 1.014 (1.000-1.030) 12/25/24 21:16 Urine Protein Negative (Negative) 12/25/24 21:16 Urine Glucose (UA) Negative (Negative) 12/25/24 21:16 Urine Ketones Negative (Negative) 12/25/24 21:16 Urine Blood Negative (Negative) 12/25/24 21:16 Urine Nitrite Negative (Negative) 12/25/24 21:16 Urine Bilirubin Negative (Negative) 12/25/24 21:16 Urine Urobilinogen Negative (Negative) 12/25/24 21:16 Ur Leukocyte Esterase Negative (Negative) 12/25/24 21:16 Adenovirus (PCR) Not Detected (NotDetected) 12/25/24 20:17 B. pertussis DNA (PCR) Not Detected (NotDetected) 12/25/24 20:17 B.parapertussis DNA PCR Not Detected (NotDetected) 12/25/24 20:17 C. pneumoniae DNA (PCR) Not Detected (NotDetected) 12/25/24 20:17 Coronavirus OC43 (PCR) Not Detected (NotDetected) 12/25/24 20:17 Coronavirus HKU1 (PCR) Not Detected (NotDetected) 12/25/24 20:17 Coronavirus 229E (PCR) Not Detected (NotDetected) 12/25/24 20:17 SARS-CoV-2 (PCR) Not Detected (NotDetected) 12/25/24 20:17 Coronavirus NL63 (PCR) Not Detected (NotDetected) 12/25/24 20:17 Human Metapneumovir PCR Not Detected (NotDetected) 12/25/24 20:17 Influenza Type A (PCR) Not Detected (NotDetected) 12/25/24 20:17 Influenza Type B (PCR) Not Detected (NotDetected) 12/25/24 20:17 M. pneumoniae (PCR) Not Detected (NotDetected) 12/25/24 20:17 Parainfluenza 1 (PCR) Not Detected (NotDetected) 12/25/24 20:17 Parainfluenza 2 (PCR) Not Detected (NotDetected) 12/25/24 20:17 Parainfluenza 3 (PCR) Not Detected (NotDetected) 12/25/24 20:17 Parainfluenza 4 (PCR) Not Detected (NotDetected) 12/25/24 20:17 RSV (PCR) Not Detected (NotDetected) 12/25/24 20:17 Entero/Rhino (PCR) DETECTED (NotDetected) A 12/25/24 20:17 Blood Type A Positive 12/26/24 01:08 Antibody Screen POSITIVE A 12/26/24 01:08 Antibody Identification Auto Cold Agglutinin Auto Gil Agglutinin Anti-E 12/26/24 01:08 Antibody Identification Auto Cold Agglutinin Auto Gil Agglutinin Anti-E 12/26/24 01:08 Antibody Identification Auto Cold Agglutinin Auto Gil Agglutinin Anti-E 12/26/24 01:08 Antibody ID Comment Cancelled 12/26/24 01:08 Crossmatch See Detail 12/26/24 01:08 Impressions Chest X-Ray 12/25/24 20:04 Exam(s): XR CXR 1 VIEW EXAM: XR Chest, 1 View CLINICAL HISTORY: Reason for exam: Dyspnea. TECHNIQUE: Frontal view of the chest. COMPARISON: Chest x-ray 10/06/2024 FINDINGS: Lungs: The left base and costophrenic angle is excluded from the field- of-view. No consolidation. No overt edema. Pleural space: No pleural effusion. No pneumothorax. Heart: Cardiomegaly. IMPRESSION: 1. No acute cardiopulmonary abnormality. 2. Cardiomegaly. Electronically signed by: Emery Boudreaux MD 12/25/24 23:22 PM PG Care Time/CCT Total # of Minutes Spent Total Time Spent with Patient: Total time spent is greater than 50% in coordination of care (as documented) at patient's floor/unit and/or counseling patient: Coding Level of Care Code 66580 IN/OBS CONSULT LVL 5,80M Diagnoses Acute kidney injury N17.9 CKD (chronic kidney disease) N18.9 Autoimmune hemolytic anemia D59.10 Rhinovirus B34.8
[2024-12-28] MEDS: LACTATED RINGER'S 1,000 ML IV SCH (14:44)
--- NOTE | 2024-12-28 17:40 | Billing Data ---
Date of Service December 28, 2024 Coding Level of Care Code 82574 SUB INP/OBS CARE MIN
[2024-12-28 20:29] VITALS: RESP 18
--- NOTE | 2024-12-29 02:15 | Ultrasound Report ---
EXAM: US renal transplant w dop CLINICAL HISTORY: KRISSY. TECHNIQUE: A renal ultrasound was performed using grayscale and doppler imaging. The vascular flow was evaluated using color flow and with a spectral pattern of the flow waveform. COMPARISON: 10/01/2024 FINDINGS: Right stillaguamish kidney: measures 6.9 cm Left stillaguamish kidney: measures 6.4 cm Both kidneys are atrophic with cortical thinning and increased parenchymal echogenicity. No hydronephrosis. Right pelvic transplanted kidney: measures 12.2 cm. Main renal artery: PSV: 83 cm/s RI: 0.81 Mid-segmental artery PSV: 82.8 cm/s RI: 0.75 Inferior arcuate artery PSV: 31.9 cm/s RI: 0.63 Mid-arcuate artery PSV 14.7 cm/s RI: 0.63 Superior arcuate artery PSV: 14.7 cm/s RI: 0.63 IMPRESSION: 1. Unremarkable appearance of the right renal transplant. 2. No significant stenosis or occlusion within the right transplant renal artery. 3. Atrophic stillaguamish kidneys. 4. No significant change from prior. Electronically signed by Roosevelt Rojas 12-29-2024 02:15 AM
[2024-12-29 07:12] LABS: Basophils # (auto) 0.01 K/uL (0.00-0.20); Basophils % (auto) 0.1 %; Eosinophils # (auto) 0.11 K/uL (0.00-0.50); Hematocrit (blood only) 28.7 % (42.0-52.0); Hemoglobin 9.3 g/dl (14.0-18.0); Immature Granulocytes # (auto) 0.08 K/uL (0.01-0.20); Immature Granulocytes % (auto) 0.7 %; Lymphocytes # (auto) 0.48 K/uL (1.20-3.40); Lymphocytes % (auto) 4.5 %; Mean Corpuscular Hemoglobin 32.3 pg (25.0-34.0); Mean Corpuscular Hgb Conc 32.4 g/dL (32.0-36.0); Mean Corpuscular Volume 99.7 fL (80.0-100.0); Mean Platelet Volume 10.9 fL (9.4-12.4); Monocytes # (auto) 0.41 K/uL (0.11-0.59); Monocytes % (auto) 3.8 %; Neutrophils # (auto) 9.59 K/uL (1.40-6.50); Neutrophils % (auto) 89.9 %; Platelet Count 210 K/uL (130-400); RDW Coefficient of Variation 17.4 % (11.5-14.5); RDW Standard Deviation 63.3 fL (36.4-46.3); Red Blood Count 2.88 M/uL (4.70-6.10); White Blood Count 10.68 K/ul (4.8-10.8)
[2024-12-29 07:30] LABS: BUN Creatinine Ratio 22.8 (10-20); Calcium 9.3 mg/dl (8.6-10.3); Creatinine Clr Calc Pharmacy 25.3 ml/min; Potassium 5.5 mmol/L (3.5-5.1)
--- NOTE | 2024-12-29 08:24 | Hospitalist Progress Note ---
Date of Service December 29, 2024 Assessment & Plan (1) Warm autoimmune hemolytic anemia: (2) Hypomagnesemia: (3) Rhinovirus: (4) Elevated troponin: Plan Patient is a 64-year-old male with past medical history of HFpEF, A-fib on Eliquis, ESRD, WAHA, and additional chronic medical conditions who presented to the ED due to fatigue, poor appetite, dyspnea on exertion for several days. Generalized weakness/ history of warm autoimmune hemolytic anemia/hypotension WAHA diagnosed July 2023, follows with hematology Dr. Gonsalez, last transfusion 09/2024 - Hgb has ranged from 7-8; ? if some degree of anemia could be contributing to weakness/hypotension - given 2 units irradiated PRBC on admission; additional unit given 12/27 with Hgb 7.7-> 8.1 - History and clinical impression favors dehydration stemming from diarrheal illness/poor PO intake as cause for presenting sx; continue adequate PO intake- hypotension resolved s/p transfusions and improved PO intake CKD stage 4/status post renal transplant - h/o FSGS and renal transplant 2009, follows with Dr. Oro, recent baseline consistently elevated 2.5-3.5 - UA WNL - continue CellCept, Prograf, prednisone (pt reports currently 10mg qam) - creatine 2.96 -> 3.59; ?prerenal, although now with better PO intake and s/p transfusion - consult nephrology, appreciate recommendations Hypomagnesemia - mag 1.1 on admission; s/p repletion +Rhinovirus on PCR - Positive bio fire 08/22, 09/30, 12/25 - low suspicion for active viral infection given absence of typical URI sx - CXR without significant change - procal mildly elevated at 0.8, though patient is afebrile and without leukocytosis - suspect elevation secondary to renal insufficiency; discontinue ceftriaxone- will leave vanco for another day as ppx for c diff with recent ABX Elevated troponin - Elevated trop x3 but essentially unchanged ~80 with increase to 92, suspect 2/2 demand - continues w/o symptoms HFpEF - Echo 10/21/24 EF 55 to 59%, RV mildly dilated, LA severely enlarged, RA severely enlarged, diastolic left ventricular dysfunction, aortic root mildly enlarged, mild AR, mild MR, mild TR, moderate pulmonary hypertension, tricuspid aortic valve - CXR without significant evidence of volume overload - Strict I's and O's, Heart healthy, low-sodium diet - hold bumex, continue metoprolol A-fib w/ RVR - Suspect compensatory tachycardia in response to volume contraction - If failing to normalize with fluid resuscitation, consider additional spot dose of Metoprolol if BP allows - Continue home metoprolol and Eliquis Sleep apnea- No CPAP at baseline GERD- continue Protonix Gout- continue Allopurinol Hypothyroidism- continue Levothyroxine VTE ppx: Eliquis Diet: heart healthy, low Na Code: conditional; no defibrillation or chest compressions, only intubation/ventilation Admission and Anticipated Discharge Date Admission Date: December 25, 2024 Results & Data Results & Data Vital Signs (Past 12 Hours) Vital Signs Temp Pulse Resp BP Pulse Ox O2 Del Method 12/29/24 07:32 36.6 C 89 18 115/76 100 Room Air 12/28/24 20:28 36.4 C L 88 18 106/62 100 Room Air PG Care Time/CCT Total # of Minutes Spent Total Time Spent with Patient: Total time spent is greater than 50% in coordination of care (as documented) at patient's floor/unit and/or counseling patient: Coding Diagnoses Warm autoimmune hemolytic anemia D59.11 Hypomagnesemia E83.42 Rhinovirus B34.8 Elevated troponin R79.89
--- NOTE | 2024-12-29 09:02 | Nephrology Progress Note ---
Date of Service December 29, 2024 Assessment & Plan (1) Acute kidney injury: Plan: * Acute on chronic kidney injury likely multifactorial including anemia, hypotension, dehydration (recent diarrheal illness) and rhinovirus infection * Urinalysis is negative for protein and blood * 12/28/24 transplant renal US: No hydro, no arterial stenosis * 12/29/24 tacrolimus level is pending * Creatinine has improved from 3.5 to 3.3 * Once current bag of IV LR is completed, IVF can be stopped * No acute indication for CRANE OPERATOR therapy at this time * Serum K is mildly elevated. Continue low K diet. Will provide Lokelma 10g po TID x3 doses * Stat BMP at 3pm. 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 Baseline creatinine has risen to 3.03.5 * Continue tacrolimus, MMF and prednisone as previously prescribed (3) Autoimmune hemolytic anemia: Plan: * Monitor H&H closely. If patient develops recurrent anemia check LDH, haptoglobin, peripheral smear and consider hematology evaluation (4) Rhinovirus: Plan: * Patient has tested rhinovirus positive since 09/10 hospitalization Admission and Anticipated Discharge Date Admission Date: December 25, 2024 Subjective Mr. Mandel was evaluated in his hospital room this morning. He denied overt blood loss, dyspnea or discomfort overlying his renal allograft. He was very discouraged that he remains hospitalized Review of Systems Constitutional: no fever Eyes: no problem reported Ear, Nose, Mouth, Throat: no problem reported Respiratory: no cough and no dyspnea Cardiovascular: no chest pain Gastrointestinal: no abdominal pain, no nausea, no vomiting and no diarrhea/loose stools Genitourinary: no dysuria, no urinary hesitancy or no hematuria Physical Exam Constitutional: not in distress Eyes: PERRL, conjunctivae normal, anicteric sclerae ENMT: external ear and nose normal, oropharynx normal Neck: trachea midline, no thyromegaly Respiratory: normal respiratory effort, lungs clear to auscultation Cardiovascular: Rate/Rhythm: regular rate and regular rhythm Extremities: + edema (1+ pretibial pitting edema) Gastrointestinal (Abdomen): normal bowel sounds, soft, nontender, no hepatosplenomegaly Musculoskeletal: Extremities: + hand abnormality (sausage shaped fingers R hand, tophi L middle finger) Skin: no rashes, warm and dry Neurologic: awake; not confused Results & Data Vital Signs (Past 12 Hours) Vital Signs Temp Pulse Resp BP Pulse Ox O2 Del Method 12/29/24 07:32 36.6 C 89 18 115/76 100 Room Air Laboratory Results Laboratory Results - last 24 hr 12/26/24 12/29/24 01:08 06:26 WBC 10.68 RBC 2.88 L Hgb 9.3 L Hct 28.7 L MCV 99.7 MCH 32.3 MCHC 32.4 RDW Std Deviation 63.3 H RDW Coeff of Jaye 17.4 H Plt Count 210 MPV 10.9 Immature Gran % (Auto) 0.7 Neut % (Auto) 89.9 Lymph % (Auto) 4.5 [place] % (Auto) 3.8 Eos % (Auto) 1.0 Baso % (Auto) 0.1 Neut # (Auto) 9.59 H Lymph # (Auto) 0.48 L [place] # (Auto) 0.41 Eos # (Auto) 0.11 Baso # (Auto) 0.01 Immature Gran # (Auto) 0.08 Sodium 134 L Potassium 5.5 H D Chloride 102 Carbon Dioxide 25 Anion Gap 7 BUN 74 H Creatinine 3.25 H D Est Cr Clr Drug Dosing 25.3 eGFR 20.43 BUN/Creatinine Ratio 22.8 H Glucose 101 H Calcium 9.3 Tacrolimus Pending Crossmatch See Detail PG Care Time/CCT Total # of Minutes Spent Total Time Spent with Patient: Total time spent is greater than 50% in coordination of care (as documented) at patient's floor/unit and/or counseling patient: Coding Level of Care Code 01993 SUB INP/OBS CARE 3/50MIN Diagnoses Acute kidney injury N17.9 CKD (chronic kidney disease) N18.9 Autoimmune hemolytic anemia D59.10 Rhinovirus B34.8
[2024-12-29] MEDS: DOCUSATE SODIUM 100 MG CAP PO PRN (09:46)
[2024-12-29] MEDS: SODIUM ZIRCONIUM CYCLOSILICATE 10 GM PACKET PO SCH (09:53)
[2024-12-29 12:08] VITALS: O2SAT 97
[2024-12-29 15:15] LABS: BUN Creatinine Ratio 23.2 (10-20); Creatinine Clr Calc Pharmacy 26.2 ml/min; Potassium 4.8 mmol/L (3.5-5.1)
[2024-12-29 15:41] VITALS: PULSE 83; TEMP 97.5
--- NOTE | 2024-12-29 16:16 | Discharge Summary ---
Discharge Summary Date of Service December 29, 2024 Principal Dx & Hospital Course #1 = Principal Diagnosis (1) Warm autoimmune hemolytic anemia: (2) Hypomagnesemia: (3) Rhinovirus: (4) Elevated troponin: Plan Patient is a 64-year-old male with past medical history of HFpEF, A-fib on Eliquis, ESRD, WAHA, and additional chronic medical conditions who presented to the ED due to fatigue, poor appetite, dyspnea on exertion for several days. Generalized weakness/ history of warm autoimmune hemolytic anemia/hypotension WAHA diagnosed July 2023, follows with hematology Dr. Gonsalez, last transfusion 09/2024 - Hgb has ranged from 7-8; ? if some degree of anemia could be contributing to weakness/hypotension - given 2 units irradiated PRBC on admission; additional unit given 12/27 with Hgb 7.7-> 8.1 - History and clinical impression favors dehydration stemming from diarrheal illness/poor PO intake as cause for presenting sx; continue adequate PO intake- hypotension resolved s/p transfusions and improved PO intake CKD stage 4/status post renal transplant - h/o FSGS and renal transplant 2009, follows with Dr. Oro, recent baseline consistently elevated 2.5-3.5 - UA WNL - continue CellCept, Prograf, prednisone (pt reports currently 10mg qam) - creatine 2.96 -> 3.59; ?prerenal, although now with better PO intake and s/p transfusion - consult nephrology, appreciate recommendations, cleared for discharge today - tacrolimus level still pending, to be followed up as outpatient Hypomagnesemia - mag 1.1 on admission; s/p repletion +Rhinovirus on PCR - Positive bio fire 08/22, 09/30, 12/25 - low suspicion for active viral infection given absence of typical URI sx - CXR without significant change - procal mildly elevated at 0.8, though patient is afebrile and without leukocytosis - suspect elevation secondary to renal insufficiency; discontinue ceftriaxone, vanc PO also discontinued Elevated troponin - Elevated trop x3 but essentially unchanged ~80 with increase to 92, suspect 2/2 demand - continues w/o symptoms HFpEF - Echo 10/21/24 EF 55 to 59%, RV mildly dilated, LA severely enlarged, RA severely enlarged, diastolic left ventricular dysfunction, aortic root mildly enlarged, mild AR, mild MR, mild TR, moderate pulmonary hypertension, tricuspid aortic valve - CXR without significant evidence of volume overload - Strict I's and O's, Heart healthy, low-sodium diet - continue metoprolol - resume diuretics, outpatient follow up of renal function A-fib w/ RVR - Suspect compensatory tachycardia in response to volume contraction - If failing to normalize with fluid resuscitation, consider additional spot dose of Metoprolol if BP allows - Continue home metoprolol and Eliquis Sleep apnea- No CPAP at baseline GERD- continue Protonix Gout- continue Allopurinol Hypothyroidism- continue Levothyroxine 12/29: PT / OT recommended rehab, pt declined. Pt also declined home health. Discharge plan discussed with his and she is amenable. Admission HPI Per Admitting Provider Patient is a 64-year-old male with past medical history of HFpEF, A-fib on Eliquis, ESRD, W AHA, and additional chronic medical conditions who presented to the ED due to fatigue, poor appetite, dyspnea on exertion for several days. This he tested positive for rhinovirus on Crystalplex, however has tested positive for this since admission since August. He was found to have hypomagnesemia with a mag of 1.1 requiring IV repletion. Hemoglobin 8.3, requires transfusions when less than 8, 2 PRBCs ordered to be held. Patient seen at bedside. He stated he has felt fatigued and sleeping a lot for several days. He has had a poor appetite and dyspnea on exertion as well. He does endorse runny nose and sore throat today. He did have diarrhea several days ago that has resolved. He was noted to have dried blood around his right nostril at time of exam, and stated his Crystalplex swab caused his nose to bleed. Patient denies dizziness, lightheadedness, cough, sputum production, abdominal pain, nausea, vomiting, dysuria, hematuria. Patient stated he last had dialysis in 2007. Has not required a blood transfusion for several months. He was supposed to have blood work tomorrow with nephrology and hematology. Patient denies nicotine or alcohol use. He does not use oxygen at baseline. He stated he got his morning medications but is due for his evening medications, he is now taking prednisone 10 Mg every morning. He wishes to be a conditional code, would not want CPR however would be agreeable to intubate patient. Transfusion consent form signed with nursing present. 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 thread grinder operator as outpatient Repeat hemoglobin within 3 days Repeat potassium and renal function within 3 days Pending Studies at Discharge: Yes Studies:: Tacrolimus level Stand-Alone Forms: My eTipping, Smoking Cessation Medications and DC Order Prescriptions: New prednisone 10 mg Tablet 10 mg PO QAM Qty: 30 0RF Continued mycophenolate mofetil 250 mg capsule 500 mg PO BID Qty: 360 3RF folic acid 1 mg tablet 1 mg PO BID Qty: 180 3RF pantoprazole 40 mg tablet,delayed release (DR/EC) 40 mg PO BID Qty: 180 3RF ferrous sulfate 325 mg (65 mg iron) tablet 325 mg PO BID Qty: 60 0RF ondansetron 4 mg tablet,disintegrating 4 mg PO Q8 PRN (Reason: nausea) Qty: 20 1RF Rx Instructions: Take as needed for nausea levothyroxine 125 mcg tablet 125 mcg PO QAM Qty: 90 1RF Rx Instructions: TAKE 1 TABLET BY MOUTH EVERY DAY metoprolol succinate 50 mg tablet extended release 24 hr 50 mg PO BID Qty: 90 1RF tacrolimus 0.5 mg capsule 0.5 mg PO Q12H Qty: 60 2RF acetaminophen 325 mg tablet 650 mg PO Q4H PRN (Reason: Pain) aspirin [Adult Aspirin Regimen] 81 mg tablet,delayed release (DR/EC) 81 mg PO DAILY Renal Vitamin 0.8 mg tablet 1 tab PO BID cholecalciferol (vitamin D3) 25 mcg (1,000 unit) capsule 25 mcg PO DAILY bumetanide 1 mg tablet 1 mg PO BID Qty: 70 3RF Rx Instructions: 1 tab twice daily, take extra 1 as needed for worsening edema magnesium oxide 500 mg magnesium tablet 500 mg PO BID amoxicillin 500 mg capsule 2,000 mg PO DIRECTED PRN (Reason: PRIOR TO DENTAL PROCEDURES) calcium carbonate 500 mg calcium (1,250 mg) Tablet 500 mg PO QAM acyclovir 400 mg tablet 400 mg PO BID albuterol sulfate 90 mcg/actuation HFA aerosol inhaler 2 inh inhalation Q6H PRN (Reason: shortness of breath or wheezing) Qty: 8.5 0RF Eliquis 5 mg Tablet 5 mg PO BID Qty: 90 0RF Rx Instructions: Take 2 tabs twice daily till 10/14 9am. On 10/14 9pm, switch to 1 tab twice daily allopurinol 300 mg tablet 300 mg PO DAILY danazol 200 mg capsule 200 mg PO BID Discontinued prednisone 5 mg tablet 5 mg PO QDB Hold Instructions: Resume on 10/21/24. Discharge Orders: Discharge Order (Routine); Ordered 12/29/24 Ordered By: Neva Orlando Admission Data Admit Date/Time: 12/25/24 23:50 Attending Provider: Neva Orlando Admit Provider: Janet Morel Primary Care Provider: Santos Rivers Other Providers: Janet Morel; Ghada Ortega; Tung Mccormick Hospital Stay Data Consultations 12/25/24 23:21 ED Decision to Admit Stat 12/26/24 04:45 Consult Hematology Routine 12/28/24 11:10 Consult Nephrology Routine Diagnostic Imagining Performed 12/29/24 renal transplant w dop Routine Pending Results Patient Have Any Pending Studies at Discharge: Yes Discharge Instructions Given to Patient (Per Discharging Provider) follow up with PCP and precision thread grinder operator as outpatient Repeat hemoglobin within 3 days Repeat potassium and renal function within 3 days Total Time Total Time Spent Total Time Spent (In Minutes): 45 Coding Level of Care Code 63060 INP/OBS DISCH >30 MIN Diagnoses Warm autoimmune hemolytic anemia D59.11 Hypomagnesemia E83.42 Rhinovirus B34.8 Elevated troponin R79.89
[2024-12-29 16:45] VITALS: BP 113/74
== END 2024-12-29 17:28 | disposition home or self-care (01) | DRG 809 ==
LOC: SUATTDRO → ED 19:52 → SUATTDRO 23:50 → 2W 12-26 01:06

== ENCOUNTER 2025-04-12 19:19 | Inpatient (IN) ==
[2025-04-12 20:00] LABS: Hematocrit (blood only) 30.8 % (42.0-52.0); Hemoglobin 9.4 g/dl (14.0-18.0); Immature Granulocytes # (auto) 0.05 K/uL (0.01-0.20); Immature Granulocytes % (auto) 1.0 %; Mean Corpuscular Hemoglobin 32.8 pg (25.0-34.0); Mean Corpuscular Volume 107.3 fL (80.0-100.0); Platelet Count 132 K/uL (130-400); RDW Standard Deviation 62.8 fL (36.4-46.3); Red Blood Count 2.87 M/uL (4.70-6.10); White Blood Count 5.25 K/ul (4.8-10.8)
--- NOTE | 2025-04-12 20:31 | XRay Report ---
EXAM: Portable AP chest radiograph TECHNIQUE: AP portable radiograph of the chest was obtained. INDICATION: Shortness of breath Comparison: Chest radiograph December 25, 2024. CT thorax March 06, 2025 FINDINGS: LINES and TUBES: None CARDIOVASCULAR: Cardiac silhouette is stably and markedly in size. LUNGS/PLEURA: Redemonstrated multifocal airspace opacities involving right greater than left lungs. Mild pulmonary vascular congestion and underlying chronic interstitial lung changes. Small pleural fluids. No discernible pneumothorax. OSSEOUS/OTHER: No displaced acute osseous process identified. IMPRESSION: Multifocal pneumonia involving right greater than left lungs superimposed upon chronic congestive changes of the cardiovascular system. Electronically signed by Adrian Woodson 04-12-2025 8:30 PM
[2025-04-12 20:32] LABS: INR 1.4 (0.9-1.1); Partial Thromboplastin Time 34 Seconds (21-31); Prothrombin Time 14.6 Seconds (9.0-12.0)
[2025-04-12 21:21] LABS: Alanine Aminotransferase 23 U/L (7-52); Albumin Globulin Ratio 1.2 (0.9-2); Alkaline Phosphatase 110 U/L (34-104); Anion Gap 12 (3-11); Bilirubin,Total 1.7 mg/dl (0.2-1.0); Blood Urea Nitrogen 85 mg/dl (6-23); Calcium 9.2 mg/dl (8.6-10.3); Carbon Dioxide 23 mmol/L (21-32); Chloride 100 mmol/L (98-107); Globulin 3.0 gm/dl (2.5-4.0); Glucose 109 mg/dl (70-99(Fasting)); Magnesium 1.4 mg/dl (1.7-2.4); Potassium 4.6 mmol/L (3.5-5.1); Sodium 135 mmol/L (136-145); Thyroid Stimulating Hormone 12.115 uIu/ml (0.300-4.500); Total Protein 6.7 gm/dl (6.0-8.3)
--- NOTE | 2025-04-12 21:26 | Emergency Department Note ---
Impression & Plan Pneumonia, Kidney transplant status, living unrelated donor, Complicated urinary tract infection, Acute on chronic renal insufficiency ED Provider Note NAME: ANGELES MONTAÑO AGE: 64 SEX: M : 1960 ARRIVES VIA: Walk-In INFORMANT: Patient ED PROVIDER(S): Jj Iniguez MD CHIEF COMPLAINT: Shortness of breath, generalized weakness PLAN: Disposition: Admit MEDICAL DECISION MAKING: The patient is a pleasant 64-year-old gentleman with a past medical history of stage IV CKD with history of renal transplant in February 2010 on immunosuppression, history of warm autoimmune hemolytic anemia, atrial fibrillation on Eliquis, CHF who presents to the emergency department via walk-in for evaluation of shortness of breath from baseline and generalized weakness in the setting of having diarrhea several days ago. He reports mild cough but not anything significant. He denies chest pain or abdominal pain. He reports his legs tend to be swollen and sometimes are worse and symptoms are better than they are currently. He denies any significant weight gain. On evaluation patient is fatigued appearing no distress, afebrile with blood pressure 90s/60s with MAP 70s and greater and vital signs otherwise stable. Exhibits dry mucous membranes though with bilateral lower extremity edema which is chronic for the patient. Lungs with scant rhonchi of bilateral lower lung acuna with normal respiratory effort. EKG demonstrates atrial fibrillation without overt acute ischemia. CXR demonstrates multifocal airspace opacities involving right greater than left lung acuna suspicious for pneumonia per my personal preliminary review/interpretation. WBC within normal limits without left shift. H/H similar to prior. Platelets within normal limits. Chemistry without metabolic acidosis. Creatinine is elevated from baseline at 6.5 increased from 2.85 days ago. Magnesium 1.4 with IV repletion provided. Total bili 1.7, similar to prior. AST 43, similar to prior. Initial high-sensitivity troponin 274 and BNP 1200, nonspecific in the setting of the patient's worsening renal function. Procalcitonin is elevated 0.6. TSH 12.1 with free T4 within normal limits. UA is suspicious for infection with positive nitrites and 1+ bacteria. CT of the abdomen pelvis was performed and further characterize his lung findings. Mild abdominal ascites is noted. Nonspecific findings of the transplanted kidney are described. Apparent circumferential thickening of prominent sigmoid colon without pericolonic fat stranding is present. Diverticulitis is not excluded however may be due to lack of distention or reactive. Given the patient's immunosuppression with evidence of pneumonia and UTI treatment initiated with IV Zosyn and vancomycin. Case was discussed with WINTER Canas PAC, with WINTER Bettencourt hospitalist who will evaluate the patient for admission. Further management per admitting team. Triage Nursing notes reviewed and agree them. Prior/external medical records reviewed Vital Signs: reviewed Differential diagnosis: Infection, dehydration, metabolic abnormality, hypo/hyperglycemia, electrolyte disturbance, anemia, hypoxia, cardiac sources, intracerebral event, toxicologic, neurologic, as well as other pathologies. ER treatment provided: See below. Diagnostics interpreted by me: ECG: Atrial fibrillation, 80 bpm, no ectopy, right bundle branch block, no overt ST elevation or depression, QTc 561, QRS 176. Cardiac Monitoring: An order for continuous cardiac monitoring was placed and demonstrated atrial fibrillation, 80 bpm, no ectopy. Laboratory studies: See below Imaging studies: See below Consultation(s): WINTER Canas PAC, with WINTER Bettencourt hospitalist HPI: Per MDM. ROS: See above HPI for pertinent positives & negatives. A total of 10 systems reviewed and were otherwise negative. VITALS:See Below PHYSICAL EXAMINATION: GENERAL: Awake, alert, chronically ill-appearing, in no distress HENT: Normocephalic, atraumatic. Oropharynx with dry mucous membranes and otherwise unremarkable. EYES: Normal conjunctiva. Sclera non-icteric. NECK: Supple. No nuchal rigidity. FROM. No JVD. RESPIRATORY: Scant rhonchi of bilateral lower lung acuna with normal respiratory effort. CARDIAC: Regular rate, irregular rhythm. Extremities warm and well perfused. Pulses equal. ABDOMEN: Soft, non-distended. No tenderness to palpation. No rebound or guarding. No masses. MUSCULOSKELETAL: Chest examination reveals no tenderness. The back is symmetrical on inspection without obvious abnormality. There is no CVA tenderness to palpation. No joint edema. LOWER EXTREMITIES: Calves are equal size bilaterally and non-tender. 1+ bilateral lower extremity pitting edema. No discoloration. NEURO: Normal sensorium. No sensory or motor deficits noted. SKIN: No rash or jaundice noted. Jj Iniguez MD Past Med/Surg History Problem List (Updated 04/13/25 @ 05:18 by Jj Iniguez MD) Multifocal pneumonia Acute on chronic renal insufficiency (Acute) Complicated urinary tract infection (Acute) Chronic kidney disease, stage 4 (severe) Stage 3b chronic kidney disease PAF (paroxysmal atrial fibrillation) Elevated troponin hx, 07/2024; f/u [facility] cardiology Rhinovirus Anemia (Acute) Elevated brain natriuretic peptide (BNP) level (Acute) Elevated procalcitonin (Acute) Non-ST elevation SC (NSTEMI) (Acute) Generalized weakness (Acute) CKD (chronic kidney disease) (Acute) Hypomagnesemia (Acute) Shortness of breath (Acute) Pulmonary edema Pulmonary nodule Tophaceous gout Gait instability Acute DVT (deep venous thrombosis) Acute on chronic heart failure with preserved ejection fraction (HFpEF) Infiltrate of lower lobe of right lung present on imaging study (Acute) Rhinovirus infection (Acute) Acute kidney injury (Acute) Clostridioides difficile diarrhea Sleep apnea, obstructive RBBB (right bundle branch block with left anterior fascicular block) Diastolic CHF Human metapneumovirus (hMPV) pneumonia Atrial fibrillation Acute on chronic diastolic (congestive) heart failure Infection due to human metapneumovirus (hMPV) (Acute) Hypomagnesemia (Acute ~09/17/24) Pneumonia (Acute) Adrenal insufficiency Bilateral leg edema Atrial fibrillation with rapid ventricular response Sepsis due to pneumonia Kidney transplant status, living unrelated donor (Acute) Acute exacerbation of CHF (congestive heart failure) (Acute) Status post right hip replacement LVH (left ventricular hypertrophy) Coronary artery calcification CKD (chronic kidney disease) 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 Status post kidney transplant Warm autoimmune hemolytic anemia On prednisone therapy Ground glass opacity present on imaging of lung Rosales's esophagus with esophagitis Macrocytic anemia Erosive esophagitis EGD 08/2023 Abnormal findings on diagnostic imaging of other abdominal regions, including retroperitoneum Arthritis of right hip Hip arthritis Adrenal nodule OK PCP considering adrenal protocol CT or MRI for characterization Herpetic maria Aneurysm Abnormal LFTs Pneumonia Acute non-ST elevation myocardial infarction (NSTEMI) (Acute) 01/31/23 Megaloblastic anemia (Acute) Cerumen impaction Retroperitoneal mass lesion biopsy negative for malignancy 05/2022 per transplant record 03/17/23 Hypotension Diarrhea Adenomatous polyps Vitamin D deficiency Chronic kidney disease, stage 3a COVID-19 (Acute) Acute respiratory failure with hypoxemia (Acute) 07/29/20 Anemia (Chronic) hospitalized at [facility] 07/2023, received blood transfusion 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 History of esophageal reflux (Chronic) controlled, stable per pt Hyperlipidemia (Chronic) Hypothyroidism (Chronic) Obesity (Chronic) Osteoporosis (Chronic) Proteinuria (Chronic) Medical History Infection of finger Hx of sepsis Erosive esophagitis History of Clostridioides difficile infection CKD (chronic kidney disease) Bilateral leg edema Hx of adrenal insufficiency Hx of right bundle branch block History of recent hospitalization Rhinovirus infection Hypomagnesemia Hx of gout Hx of congestive heart failure Sleep apnea, obstructive Hypocalcemia Weakness Atrial fibrillation with rapid ventricular response Hypotension Heart failure with preserved ejection fraction Hypomagnesemia History of non-ST elevation myocardial infarction (NSTEMI) Osteoporosis Hypothyroidism Hyperlipidemia Hx of esophageal reflux FSGS (focal segmental glomerulosclerosis) Abdominal aortic aneurysm History of colon polyps Retroperitoneal mass Pneumonia Adrenal nodule Arthritis On prednisone therapy Rosales's esophagus with esophagitis Atrial flutter Autoimmune hemolytic anemia Thoracic ascending aortic aneurysm Hypertension Limb alert care status History of blood transfusion Hx of herpetic maria History of COVID-19 History of renal dialysis History of CVA (cerebrovascular accident) Surgical History History of total right hip arthroplasty Hx of kidney transplant History of esophagogastroduodenoscopy (EGD) Hx of cholecystectomy Hx of exploratory laparotomy History of colonoscopy Family History Grandmother (Maternal) Alzheimer disease Mother Depression Denies family history of Ovarian cancer Prostate cancer Diabetes Heart disease Myocardial infarction Breast cancer Lung cancer COPD (chronic obstructive pulmonary disease) Colorectal cancer Hypertension Stroke Social History Smoking Status: Never smoker Second Hand Exposure: No; Do You Dip or Chew Tobacco: No; Hx Alcohol Use: No Hx Substance Use: No 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: Kinyarwanda Communication Ability: Effective Visual Impairment: No Limitations Hearing Ability: Normal Construction Foreman Required: No Beliefs That Will Affect Care: None marital status: Current Living Situation: Spouse current occupational status: employed current occupation: [employer] How many Children do You have: 1 Feels Safe at Home: Yes Childhood Exposure to Second-Hand Smoke: No Dental Care, Regularly: Yes Seatbelt Use: sometimes Sunscreen Use: No Assistive Devices: Cane and Walker Allergies Allergies Allergy/AdvReac Type Severity Reaction Status Date / Time clopidogrel [From Plavix] Allergy Unknown Unknown Verified 03/14/25 10:20 [id number]-MqD Reductase AdvReac Intermediate myalgias Verified 03/14/25 10:20 Inhibitor [C[place]-You-Ahw Reductase Inhibitor] Home Meds Home Medications Medication Instructions Recorded Confirmed amoxicillin 500 mg capsule 2,000 mg PO DIRECTED PRN PRIOR 07/29/20 04/13/25 TO DENTAL PROCEDURES calcium carbonate 500 mg PO QAM 01/21/24 04/13/25 acyclovir 400 mg tablet 400 mg PO BID 05/07/24 04/13/25 magnesium oxide 500 mg PO BID 08/09/24 04/13/25 danazol 200 mg capsule 200 mg PO BID 09/13/24 04/13/25 acetaminophen 325 mg tablet 650 mg PO Q4H PRN Pain 11/14/24 04/13/25 aspirin 81 mg tablet,delayed 81 mg PO DAILY 11/14/24 04/13/25 release (Adult Aspirin Regimen) cholecalciferol (vitamin D3) 25 25 mcg PO DAILY 11/14/24 04/13/25 mcg (1,000 unit) capsule vitamin B complex-vitamin C-folic 1 tab PO BID 11/14/24 04/13/25 acid 0.8 mg tablet (Renal Vitamin) allopurinol 300 mg tablet 300 mg PO DAILY 12/25/24 04/13/25 Previous Rx's Medication Instructions Recorded mycophenolate mofetil 250 mg 500 mg (2 x 250 mg) PO BID #360 05/29/20 capsule caps pantoprazole 40 mg tablet,delayed 40 mg PO BID #180 tabs 12/06/23 release ferrous sulfate 325 mg (65 mg 325 mg PO BID #60 tabs 02/05/24 iron) tablet ondansetron 4 mg disintegrating 4 mg PO Q8 PRN nausea #20 tabs 05/22/24 tablet albuterol sulfate 90 mcg/actuation 2 inh inhalation Q6H PRN shortness 08/25/24 aerosol inhaler of breath or wheezing #8.5 grams levothyroxine 125 mcg tablet 125 mcg PO QAM #90 tabs 09/27/24 bumetanide 1 mg tablet 1 mg PO BID #70 tabs 01/23/25 folic acid 1 mg tablet 1 mg PO BID #180 tabs 02/03/25 tacrolimus 0.5 mg capsule, 0.5 mg PO Q12H Dx: Z94.0 kidney 02/05/25 immediate-release transplant #60 caps apixaban 5 mg tablet (Eliquis) 5 mg PO BID #180 tabs 02/19/25 prednisone 5 mg tablet 5 mg PO QAM #90 tabs 03/14/25 metoprolol succinate 50 mg 50 mg PO BID #90 tabs 03/17/25 tablet,extended release 24 hr Results & Data (ED) Vital Signs Vital Signs - 24 hr 04/12/25 19:25 04/12/25 20:07 04/12/25 20:12 Temperature 36.7 C Temperature Source Oral Pulse Rate 73 86 81 Pulse Rate from SpO2 Sensor 83 Respiratory Rate 20 16 Respiratory Effort / Characteristics Non-Labored Spontaneous Respiratory Depth Normal Respiratory Pattern Regular Blood Pressure 97/65 L 93/64 L Blood Pressure Mean 75 73 Pulse Oximetry 95 94 Oxygen Delivery Method Room Air Sepsis Recent Fever Within 48 Hours No Sepsis New/Unexplained Change in Mental Status N/A Sepsis Action Taken by Nursing No Action Required 04/12/25 20:20 04/12/25 22:39 04/12/25 23:00 Temperature Temperature Source Pulse Rate 86 82 Pulse Rate from SpO2 Sensor 85 Respiratory Rate 18 20 Respiratory Effort / Characteristics Respiratory Depth Respiratory Pattern Blood Pressure 94/67 L 101/72 Blood Pressure Mean 76 81 Pulse Oximetry 93 93 Oxygen Delivery Method Room Air Room Air Sepsis Recent Fever Within 48 Hours Sepsis New/Unexplained Change in Mental Status Sepsis Action Taken by Nursing 04/12/25 23:30 04/13/25 00:01 04/13/25 00:26 Temperature Temperature Source Pulse Rate 79 86 79 Pulse Rate from SpO2 Sensor Respiratory Rate 16 18 Respiratory Effort / Characteristics Respiratory Depth Respiratory Pattern Blood Pressure 98/76 L 95/64 L Blood Pressure Mean 89 74 Pulse Oximetry 94 96 Oxygen Delivery Method Room Air Sepsis Recent Fever Within 48 Hours Sepsis New/Unexplained Change in Mental Status Sepsis Action Taken by Nursing 04/13/25 00:30 04/13/25 01:00 Temperature Temperature Source Pulse Rate 86 82 Pulse Rate from SpO2 Sensor Respiratory Rate 12 14 Respiratory Effort / Characteristics Respiratory Depth Respiratory Pattern Blood Pressure 102/67 94/59 L Blood Pressure Mean 78 70 Pulse Oximetry 95 92 Oxygen Delivery Method Sepsis Recent Fever Within 48 Hours Sepsis New/Unexplained Change in Mental Status Sepsis Action Taken by Nursing Laboratory Data Attestation: I reviewed the patient's lab results. 04/13/25 04:45 04/12/25 19:40 Lab Results 04/12/25 04/12/25 04/12/25 Range/Units 19:40 20:33 21:19 WBC 5.25 (4.8-10.8) K/ul RBC 2.87 L (4.70-6.10) M/uL Hgb 9.4 L (14.0-18.0) g/dl Hct 30.8 L (42.0-52.0) % MCV 107.3 H (80.0-100.0) fL MCH 32.8 (25.0-34.0) pg MCHC 30.5 L (32.0-36.0) g/dL RDW Std Deviation 62.8 H (36.4-46.3) fL RDW Coeff of Jaye 15.9 H (11.5-14.5) % Plt Count 132 (130-400) K/uL MPV 10.5 (9.4-12.4) fL Immature Gran % (Auto) 1.0 % Neut % (Auto) 85.4 % Lymph % (Auto) 2.9 % Door % (Auto) 7.4 % Eos % (Auto) 2.9 % Baso % (Auto) 0.4 % Neut # (Auto) 4.49 (1.40-6.50) K/uL Lymph # (Auto) 0.15 L (1.20-3.40) K/uL Door # (Auto) 0.39 (0.11-0.59) K/uL Eos # (Auto) 0.15 (0.00-0.50) K/uL Baso # (Auto) 0.02 (0.00-0.20) K/uL Immature Gran # (Auto) 0.05 (0.01-0.20) K/uL Absolute Nucleated RBC 0.10 (0.00-0.12) K/uL Nucleated RBC % (auto) 1.9 % PT 14.6 H (9.0-12.0) Seconds INR 1.4 H (0.9-1.1) APTT 34 H (21-31) Seconds PTT Ratio 1.3 Sodium 135 L (136-145) mmol/L Potassium 4.6 (3.5-5.1) mmol/L Chloride 100 (98-107) mmol/L Carbon Dioxide 23 (21-32) mmol/L Anion Gap 12 H (3-11) BUN 85 H (6-23) mg/dl Creatinine 6.53 H* (0.6-1.4) mg/dl Est Cr Clr Drug Dosing Not Reportable eGFR 8.84 BUN/Creatinine Ratio 13.0 (10-20) Glucose 109 H (70-99(Fasting)) mg/dl Lactate (0.4-2.0) mmol/L Calcium 9.2 (8.6-10.3) mg/dl Phosphorus 5.7 H (2.5-4.9) mg/dl Magnesium 1.4 L (1.7-2.4) mg/dl Total Bilirubin 1.7 H (0.2-1.0) mg/dl AST 43 H (13-39) U/L ALT 23 (7-52) U/L Alkaline Phosphatase 110 H (34-104) U/L Total Creatine Kinase 91 (30-223) U/L Troponin I High Sens 274.3 H* 260.9 H* (0-20) pg/ml B-Natriuretic Peptide 1267 H (0-100) pg/ml Total Protein 6.7 (6.0-8.3) gm/dl Albumin 3.7 (3.4-5.0) gm/dl Globulin 3.0 (2.5-4.0) gm/dl Albumin/Globulin Ratio 1.2 (0.9-2) Procalcitonin (0-0.5) ng/ml TSH 12.115 H (0.300-4.500) uIu/ml Free T4 0.76 (0.61-1.60) ng/dl Urine Color Urine Appearance (Clear) Urine pH (4.5-7.5) Ur Specific [place] (1.000-1.030) Urine Protein (Negative) Urine Glucose (UA) (Negative) Urine Ketones (Negative) Urine Blood (Negative) Urine Nitrite (Negative) Urine Bilirubin (Negative) Urine Urobilinogen (Negative) Ur Leukocyte Esterase (Negative) Urine WBC (Auto) (0-5) /hpf Urine RBC (Auto) (0-2) /hpf U Hyaline Cast (Auto) (0-2) /lpf U Epithel Cells (Auto) (0-2) /hpf Urine Bacteria (Auto) (None Seen) Calcium Oxalate Crystal (None Prsent) Urine Mucus (None Prsent) Urine Comment Nasal Screen MRSA (PCR) (Negative) Adenovirus (PCR) Not Detected (NotDetected) B. pertussis DNA (PCR) Not Detected (NotDetected) B.parapertussis DNA PCR Not Detected (NotDetected) C. pneumoniae DNA (PCR) Not Detected (NotDetected) Coronavirus OC43 (PCR) Not Detected (NotDetected) Coronavirus HKU1 (PCR) Not Detected (NotDetected) Coronavirus 229E (PCR) Not Detected (NotDetected) SARS-CoV-2 (PCR) Not Detected (NotDetected) Coronavirus NL63 (PCR) Not Detected (NotDetected) Human Metapneumovir PCR Not Detected (NotDetected) Influenza Type A (PCR) Not Detected (NotDetected) Influenza Type B (PCR) Not Detected (NotDetected) M. pneumoniae (PCR) Not Detected (NotDetected) Parainfluenza 1 (PCR) Not Detected (NotDetected) Parainfluenza 2 (PCR) Not Detected (NotDetected) Parainfluenza 3 (PCR) Not Detected (NotDetected) Parainfluenza 4 (PCR) Not Detected (NotDetected) RSV (PCR) Not Detected (NotDetected) Entero/Rhino (PCR) Not Detected (NotDetected) 04/12/25 04/12/25 04/13/25 Range/Units 23:05 23:43 00:13 WBC (4.8-10.8) K/ul RBC (4.70-6.10) M/uL Hgb (14.0-18.0) g/dl Hct (42.0-52.0) % MCV (80.0-100.0) fL MCH (25.0-34.0) pg MCHC (32.0-36.0) g/dL RDW Std Deviation (36.4-46.3) fL RDW Coeff of Jaye (11.5-14.5) % Plt Count (130-400) K/uL MPV (9.4-12.4) fL Immature Gran % (Auto) % Neut % (Auto) % Lymph % (Auto) % Door % (Auto) % Eos % (Auto) % Baso % (Auto) % Neut # (Auto) (1.40-6.50) K/uL Lymph # (Auto) (1.20-3.40) K/uL Door # (Auto) (0.11-0.59) K/uL Eos # (Auto) (0.00-0.50) K/uL Baso # (Auto) (0.00-0.20) K/uL Immature Gran # (Auto) (0.01-0.20) K/uL Absolute Nucleated RBC (0.00-0.12) K/uL Nucleated RBC % (auto) % PT (9.0-12.0) Seconds INR (0.9-1.1) APTT (21-31) Seconds PTT Ratio Sodium (136-145) mmol/L Potassium (3.5-5.1) mmol/L Chloride (98-107) mmol/L Carbon Dioxide (21-32) mmol/L Anion Gap (3-11) BUN (6-23) mg/dl Creatinine (0.6-1.4) mg/dl Est Cr Clr Drug Dosing eGFR BUN/Creatinine Ratio (10-20) Glucose (70-99(Fasting)) mg/dl Lactate 0.9 (0.4-2.0) mmol/L Calcium (8.6-10.3) mg/dl Phosphorus (2.5-4.9) mg/dl Magnesium (1.7-2.4) mg/dl Total Bilirubin (0.2-1.0) mg/dl AST (13-39) U/L ALT (7-52) U/L Alkaline Phosphatase (34-104) U/L Total Creatine Kinase (30-223) U/L Troponin I High Sens (0-20) pg/ml B-Natriuretic Peptide (0-100) pg/ml Total Protein (6.0-8.3) gm/dl Albumin (3.4-5.0) gm/dl Globulin (2.5-4.0) gm/dl Albumin/Globulin Ratio (0.9-2) Procalcitonin 0.60 H (0-0.5) ng/ml TSH (0.300-4.500) uIu/ml Free T4 (0.61-1.60) ng/dl Urine Color Dark Yellow Urine Appearance Cloudy A (Clear) Urine pH 5.0 (4.5-7.5) Ur Specific [place] 1.024 (1.000-1.030) Urine Protein 2+ H (Negative) Urine Glucose (UA) Negative (Negative) Urine Ketones Trace H (Negative) Urine Blood Negative (Negative) Urine Nitrite Positive A (Negative) Urine Bilirubin 2+ H (Negative) Urine Urobilinogen Negative (Negative) Ur Leukocyte Esterase 1+ H (Negative) Urine WBC (Auto) 0-5 (0-5) /hpf Urine RBC (Auto) 0-2 (0-2) /hpf U Hyaline Cast (Auto) 6-10 H (0-2) /lpf U Epithel Cells (Auto) 0-2 (0-2) /hpf Urine Bacteria (Auto) 1+ H (None Seen) Calcium Oxalate Crystal Present A (None Prsent) Urine Mucus Present A (None Prsent) Urine Comment Nasal Screen MRSA (PCR) (Negative) Adenovirus (PCR) (NotDetected) B. pertussis DNA (PCR) (NotDetected) B.parapertussis DNA PCR (NotDetected) C. pneumoniae DNA (PCR) (NotDetected) Coronavirus OC43 (PCR) (NotDetected) Coronavirus HKU1 (PCR) (NotDetected) Coronavirus 229E (PCR) (NotDetected) SARS-CoV-2 (PCR) (NotDetected) Coronavirus NL63 (PCR) (NotDetected) Human Metapneumovir PCR (NotDetected) Influenza Type A (PCR) (NotDetected) Influenza Type B (PCR) (NotDetected) M. pneumoniae (PCR) (NotDetected) Parainfluenza 1 (PCR) (NotDetected) Parainfluenza 2 (PCR) (NotDetected) Parainfluenza 3 (PCR) (NotDetected) Parainfluenza 4 (PCR) (NotDetected) RSV (PCR) (NotDetected) Entero/Rhino (PCR) (NotDetected) 04/13/25 Range/Units 01:10 WBC (4.8-10.8) K/ul RBC (4.70-6.10) M/uL Hgb (14.0-18.0) g/dl Hct (42.0-52.0) % MCV (80.0-100.0) fL MCH (25.0-34.0) pg MCHC (32.0-36.0) g/dL RDW Std Deviation (36.4-46.3) fL RDW Coeff of Jaye (11.5-14.5) % Plt Count (130-400) K/uL MPV (9.4-12.4) fL Immature Gran % (Auto) % Neut % (Auto) % Lymph % (Auto) % Door % (Auto) % Eos % (Auto) % Baso % (Auto) % Neut # (Auto) (1.40-6.50) K/uL Lymph # (Auto) (1.20-3.40) K/uL Door # (Auto) (0.11-0.59) K/uL Eos # (Auto) (0.00-0.50) K/uL Baso # (Auto) (0.00-0.20) K/uL Immature Gran # (Auto) (0.01-0.20) K/uL Absolute Nucleated RBC (0.00-0.12) K/uL Nucleated RBC % (auto) % PT (9.0-12.0) Seconds INR (0.9-1.1) APTT (21-31) Seconds PTT Ratio Sodium (136-145) mmol/L Potassium (3.5-5.1) mmol/L Chloride (98-107) mmol/L Carbon Dioxide (21-32) mmol/L Anion Gap (3-11) BUN (6-23) mg/dl Creatinine (0.6-1.4) mg/dl Est Cr Clr Drug Dosing eGFR BUN/Creatinine Ratio (10-20) Glucose (70-99(Fasting)) mg/dl Lactate (0.4-2.0) mmol/L Calcium (8.6-10.3) mg/dl Phosphorus (2.5-4.9) mg/dl Magnesium (1.7-2.4) mg/dl Total Bilirubin (0.2-1.0) mg/dl AST (13-39) U/L ALT (7-52) U/L Alkaline Phosphatase (34-104) U/L Total Creatine Kinase (30-223) U/L Troponin I High Sens (0-20) pg/ml B-Natriuretic Peptide (0-100) pg/ml Total Protein (6.0-8.3) gm/dl Albumin (3.4-5.0) gm/dl Globulin (2.5-4.0) gm/dl Albumin/Globulin Ratio (0.9-2) Procalcitonin (0-0.5) ng/ml TSH (0.300-4.500) uIu/ml Free T4 (0.61-1.60) ng/dl Urine Color Urine Appearance (Clear) Urine pH (4.5-7.5) Ur Specific [place] (1.000-1.030) Urine Protein (Negative) Urine Glucose (UA) (Negative) Urine Ketones (Negative) Urine Blood (Negative) Urine Nitrite (Negative) Urine Bilirubin (Negative) Urine Urobilinogen (Negative) Ur Leukocyte Esterase (Negative) Urine WBC (Auto) (0-5) /hpf Urine RBC (Auto) (0-2) /hpf U Hyaline Cast (Auto) (0-2) /lpf U Epithel Cells (Auto) (0-2) /hpf Urine Bacteria (Auto) (None Seen) Calcium Oxalate Crystal (None Prsent) Urine Mucus (None Prsent) Urine Comment Nasal Screen MRSA (PCR) Negative (Negative) Adenovirus (PCR) (NotDetected) B. pertussis DNA (PCR) (NotDetected) B.parapertussis DNA PCR (NotDetected) C. pneumoniae DNA (PCR) (NotDetected) Coronavirus OC43 (PCR) (NotDetected) Coronavirus HKU1 (PCR) (NotDetected) Coronavirus 229E (PCR) (NotDetected) SARS-CoV-2 (PCR) (NotDetected) Coronavirus NL63 (PCR) (NotDetected) Human Metapneumovir PCR (NotDetected) Influenza Type A (PCR) (NotDetected) Influenza Type B (PCR) (NotDetected) M. pneumoniae (PCR) (NotDetected) Parainfluenza 1 (PCR) (NotDetected) Parainfluenza 2 (PCR) (NotDetected) Parainfluenza 3 (PCR) (NotDetected) Parainfluenza 4 (PCR) (NotDetected) RSV (PCR) (NotDetected) Entero/Rhino (PCR) (NotDetected) Administered Medications Ondansetron HCl (Ondansetron Inj 2 Mg/Ml 2 Ml Vial) 4 mg IV Q6H PRN PRN Reason: Nausea And Vomiting Stop: 05/13/25 02:13 Last Admin: 04/13/25 02:37 Dose: 4 mg Documented By: ALLYSSA Discontinued Medications Sodium Chloride (Nss) 500 mls @ 125 mls/hr IV .Q4H ESTEFANI Stop: 04/13/25 03:44 Last Infusion: 04/13/25 04:32 Dose: Infused Documented By: Admin: 04/13/25 00:22 Dose: 125 mls/hr Documented By: ALLYSSA Magnesium Sulfate/Dextrose (Magnesium Sulfate / D5w) 1 gm in 100 mls @ 100 mls/hr IV NOW STA Stop: 04/13/25 00:46 Last Infusion: 04/13/25 01:18 Dose: Infused Documented By: Admin: 04/13/25 00:18 Dose: 100 mls/hr Documented By: ALLYSSA Piperacillin Sod/Tazobactam Sod (Zosyn) 4.5 gm in 100 mls @ 200 mls/hr IV NOW ONE; Protocol Stop: 04/13/25 00:16 Last Infusion: 04/13/25 01:07 Dose: Infused Documented By: Admin: 04/13/25 00:26 Dose: 200 mls/hr Documented By: ALLYSSA Vancomycin HCl 2,500 mg/ (Sodium Chloride) 550 mls @ 180 mls/hr IV NOW ONE Stop: 04/13/25 02:50 Last Infusion: 04/13/25 04:32 Dose: Infused Documented By: Admin: 04/13/25 01:07 Dose: 180 mls/hr Documented By: ALLYSSA Cefepime HCl (Maxipime 2000mg) 2,000 mg in 20 mls @ 5 mls/min IV ONE ONE Stop: 04/13/25 04:33 Last Admin: 04/13/25 04:48 Dose: 5 mls/min Documented By: ALLYSSA Imaging Data Radiologist's Impression: Chest X-Ray 04/12/25 19:30 EXAM: Portable AP chest radiograph TECHNIQUE: AP portable radiograph of the chest was obtained. INDICATION: Shortness of breath Comparison: Chest radiograph December 25, 2024. CT thorax March 06, 2025 FINDINGS: LINES and TUBES: None CARDIOVASCULAR: Cardiac silhouette is stably and markedly in size. LUNGS/PLEURA: Redemonstrated multifocal airspace opacities involving right greater than left lungs. Mild pulmonary vascular congestion and underlying chronic interstitial lung changes. Small pleural fluids. No discernible pneumothorax. OSSEOUS/OTHER: No displaced acute osseous process identified. IMPRESSION: Multifocal pneumonia involving right greater than left lungs superimposed upon chronic congestive changes of the cardiovascular system. Electronically signed by Adrian Woodson 04-12-2025 8:30 PM Abdomen/Pelvis CT 04/12/25 23:43 EXAM: CT abd pelvis wo con CLINICAL HISTORY: Acute on chronic renal insuff TECHNIQUE: Non-contrast CT of the abdomen and pelvis was performed, with the following protocol: axial images, and reconstructed coronal and sagittal images. One of the following dose reduction techniques was utilized for this exam: Automated exposure control, adjustment of the mA and/or kV according to patient size, and use of iterative reconstruction. COMPARISON: 06/27/2024 CT and 12/28/2024 Ultrasound. FINDINGS: Visualized chest: Mild to moderate right-sided and mild left pleural effusion. Partially imaged patchy groundglass opacities with interlobular septal thickening. Partially imaged consolidative opacity in the right lung could represent a thick parenchymal band. Redemonstration of cardiomegaly. A small hiatal hernia is noted. Abdomen: Mild to moderate abdominopelvic free fluid is noted. Liver: Mild hepatomegaly, the liver span measures 17.1 cm on the CC dimension at the midclavicular line. No focal lesions, cysts, or masses were identified. Gallbladder and Biliary System: Postcholecystectomy status. Pancreas: No pancreatic masses or calcifications were noted. Spleen: Mild splenomegaly. The spleen measures 14.5 cm on the CC dimension. It shows multiple likely calcified tiny granulomas. Appendix: The appendix could not be assessed properly due to the lack of IV contrast and abdominopelvic ascites. Kidneys and Adrenal Glands: [place] kidneys are atrophied. No hydronephrosis. 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 It shows a 9 mm hyperdense rounded lesion in its upper lobe pole, which could represent a hemorrhagic/proteinaceous cyst. It shows a tiny nonobstructive upper calyceal group stone and a 12 mm likely midportion cortical cyst with adjacent small hyperdensity. No significant hydronephrosis. Partial resolution of the infiltrative area adjacent to the left adrenal gland. Abdominal Aorta and Vessels: Atherosclerotic changes of the abdominal aorta and its major branches, significant atherosclerotic changes of the renal arteries, and external and internal iliac arteries. Pelvis: Urinary Bladder: Nearly empty urinary bladder with apparent urinary bladder wall thickening. Prostate: Unremarkable. Peritoneal and Retroperitoneal Structures: Redemonstration of left posterior perivascular density, now measuring 3.8 cm in the maximum axial dimension. Mild to moderate free fluid in the abdomen and pelvis. Bowel: Multiple colonic diverticula. Apparent circumferential thickening of the proximal sigmoid colon, appreciated on the coronal and sagittal images, could be due to partial collapse. No significant adjacent fat stranding. Apparent perirectal fat stranding. Bones and Soft Tissues: Small umbilical hernia with adjacent small bowel loops, no evidence of small bowel obstruction. Fat-containing right inguinal hernia. The right prosthetic hip obscures proper visualization of the lower pelvic organs. An 8 mm sclerotic bony lesion in the right ischium could represent a bony island. Degenerative changes of the visualized skeleton. Grade 1 anterolisthesis of T11 over T12 with redemonstration of compressive deformity of the T12 vertebral body. Mild anterior and posterior wedging of the lumbar vertebrae. The vacuum phenomenon is noted. Unchanged. IMPRESSION: 1. Newly appreciated bilateral pleural effusion, more on the right. 2. Partially imaged patchy groundglass opacities with interlobular septal thickening. This could be due to fluid overload/pulmonary edema. If clinically indicated, please correlate with a dedicated chest CT scan. 3. Newly appreciated mild to moderate abdominopelvic ascites. 4. The transplanted kidney shows a 9 mm hyperdense rounded upper pole lesion and a tiny, likely non-obstructive stone, which are more conspicuous in the present study due to the lack of IV contrast. Redemonstration of the 12 mm cortical renal cyst. No hydronephrosis. 5. Partial resolution of the infiltrative density adjacent to the left adrenal gland and in the posterior left abdomen. 6. Multiple colonic diverticuli. Apparent circumferential thickening of the proximal sigmoid colon with no significant pericolonic fat stranding. This is likely due to partial collapse/reactionary; however, an early acute diverticulitis cannot be ruled out. Clinical correlation is advised. 7. Redemonstration of hepatosplenomegaly and cardiomegaly. Electronically signed by Roosevelt Rojas 04-13-2025 01:26 AM Discharge Plan Visit Data Chief Complaint: Shortness of Breath/Dyspnea Stated Complaint: HARD TIME BREATHING DIARRHEA ED Provider: Jj Iniguez Discharge Problem: Pneumonia, Kidney transplant status, living unrelated donor, Complicated urinary tract infection, Acute on chronic renal insufficiency Patient Disposition: Admitted As Inpatient Condition: Fair Discharge Instructions Interventions: ED Discharge Assessment Last Done: 04/13/25 03:53 Discharge Problem: Pneumonia Qualifiers: Pneumonia type: due to unspecified organism Laterality: bilateral Lung location: lower lobe of lung Qualified Code(s): J18.9 - Pneumonia, unspecified organism
[2025-04-12 21:45] LABS: Chlamydia pneumoniae PCR Not Detected (NotDetected); Coronavirus 229E PCR Not Detected (NotDetected); Coronavirus CoV-2 (COVID19)PCR Not Detected (NotDetected); Coronavirus HKU1 PCR Not Detected (NotDetected); Coronavirus NL63 PCR Not Detected (NotDetected); Coronavirus OC43PCR Not Detected (NotDetected); Human Metapneumovirus PCR Not Detected (NotDetected); Parainfluenza Virus 1 PCR Not Detected (NotDetected); Parainfluenza Virus 2 PCR Not Detected (NotDetected); Parainfluenza Virus 3 PCR Not Detected (NotDetected); Parainfluenza Virus 4 PCR Not Detected (NotDetected); Respiratory Syncytial VirusPCR Not Detected (NotDetected); Rhinovirus/Enterovirus PCR Not Detected (NotDetected)
[2025-04-12 23:42] LABS: Appearance Urine Cloudy (Clear); Epithelial Cell Urine Auto 0-2 /hpf (0-2); Glucose Urine UA Negative (Negative); RBC Urine Automated 0-2 /hpf (0-2); WBC Urine Automated 0-5 /hpf (0-5)
[2025-04-12] MEDS ORDERED: VANCOMYCIN CONSULT ACTIVE PRN (23:47)
[2025-04-12 23:51] LABS: Bacteria Urine Automated 1+ (None Seen)
[2025-04-13] MEDS: MAGNESIUM SULFATE / D5W 1 GM/100 ML BAG IV STA (00:18)
[2025-04-13] MEDS: SODIUM CHLORIDE 0.9% 500 ML IV SCH (00:22)
[2025-04-13] MEDS: PIPERACILLIN/TAZOBACTAM 4.5 GM/100 ML BAG IV ONE (00:26)
[2025-04-13] MEDS: VANCOMYCIN HCL 2,500 MG in SODIUM CHLORIDE 0.9% 500 ML IV ONE (01:07)
--- NOTE | 2025-04-13 01:11 | History & Physical Report ---
Date of Service April 13, 2025 Assessment & Plan (1) Multifocal pneumonia: (2) Acute on chronic renal insufficiency: (3) Hypomagnesemia: (4) Elevated troponin: Plan Patient is a 64-year-old male with past medical history of warm autoimmune hemolytic anemia, status post renal transplant and FSGS, HFpEF, COPD, A-fib, acute DVT, hypothyroidism. Patient presented due to several days of dyspnea. Patient also noted recent diarrhea and vomiting, now resolved. Patient was found to have multifocal pneumonia R greater than left on CXR, procalcitonin 0.60. Patient was also found to have a questionable UTI and KRISSY with creatinine worsening from 2.86-6.53. #multifocal pneumonia CXR read as multifocal pneumonia. No leukocytosis, VSS. Procalcitonin 0.60. Immunocompromised on current home medication regimen. Zosyn and vancomycin ordered in ED, given renal impairment will transition to cefepime - MRSA swab ordered, will continue MRSA coverage with different agent if positive - blood cultures pending - incentive spirometry - oxygen prn for O2 <94%, wean as tolerated #AKIcreatinine increased 2.86-6.53, BUN 85. Suspect clinically dry with acute GI losses and decrease in urine output however deferring further IVF given history of CHF. Mag 1.4, phosphorus 5.7, K4.6, NA 135. UA with 2+ protein. History of FSGS and renal transplant 2009, follows with Dr. Oro, baseline CR previously 1.3-1.4, however uptrending over the past several months. 1G IV magnesium ordered in ED, continue home supplement (chronic hypomag) 500 mL NSS ordered in ED Ordered BNP, CK, urine creatinine Holding diuretics, CellCept, acyclovir, prograf nephrology consulted Trend BMP, magnesium, phosphorus #UTIasymptomatic. UA Cloudy, positive for nitrates, 1+ LE, 6-10 hyaline cast, 1+ bacteria. Covered with antibiotics as above Follow urine cultures #Elevated troponin 274.3 -> 260.9, elevated from baseline. Patient denies any chest pain. EKG with T wave inversions in all leads, similar to previous. Suspect demand ischemia with KRISSY and acute infection above. Trend troponin every 6 hours Monitor on telemetry EKG with chest pain as needed #HFpEFstable, do not suspect acute exacerbation at this time. Most recent echo revealed EF 55 to 59%. With +2 pitting edema to bilateral lower extremities on admission, weight stable. Strict I's and O's, heart healthy low-sodium diet Holding Bumex Continue metoprolol #Warm autoimmune hemolytic anemiaDx July 2023, follows with hematology Dr. Gonsalez, requires frequent blood transfusions. Hgb currently stable. Holding acyclovir with acute renal impairment Continue danazol, iron supplement, and folic acid #Permanent A-fibcontinue Eliquis and metoprolol #GERD- continue Protonix #Gout- continue Allopurinol #Hypothyroidism- continue Levothyroxine. TSH 12.115, free T40.76. Recommend repeating when not acutely ill. VTE ppx: continue home Eliquis Dispo: PCU Admission and Anticipated Discharge Date Admission Date: 04/13/25 History of Present Illness Chief Complaint: Dyspnea Primary Care Provider: Santos Rivers MD Patient is a 64-year-old male with past medical history of warm autoimmune hemolytic anemia, status post renal transplant and FSGS, HFpEF, COPD, A-fib, acute DVT, hypothyroidism. Patient presented due to several days of dyspnea. Patient also noted recent diarrhea and vomiting, now resolved. Patient was found to have multifocal pneumonia R greater than left on CXR, procalcitonin 0.60. Patient was also found to have a questionable UTI and KRISSY with creatinine worsening from 2.86-6.53. Patient seen at bedside. He stated he has been short of breath on exertion for several days. He denies any recent cough or sick contacts. He stated he has had swelling of his lower extremities that is acutely worsened from his baseline. He stated his weight has been stable however he did lose weight with the diarrhea and vomiting that he had 2 days ago that is now resolved. He stated he has had decreased urine output since the vomiting and diarrhea, denies any dysuria or hematuria. He denies any fevers, chills, chest pain. He is due for his evening medications, he did take an extra Bumex several days ago. Wishes to be DNR/DNI. He also noted that his vision has been foggy and he has an appointment with an mail processing machine operator. Allergies Allergy/AdvReac Type Severity Reaction Status Date / Time clopidogrel [From Plavix] Allergy Unknown Unknown Verified 03/14/25 10:20 [id number]-[id number] Reductase AdvReac Intermediate myalgias Verified 03/14/25 10:20 Inhibitor [Xxjocjz-Pfm-Gun Reductase Inhibitor] Home Medications Medication Instructions Recorded Confirmed Type mycophenolate mofetil 250 mg 500 mg (2 x 250 mg) PO BID #360 05/29/20 04/13/25 Rx capsule caps amoxicillin 500 mg capsule 2,000 mg PO DIRECTED PRN PRIOR 07/29/20 04/13/25 History TO DENTAL PROCEDURES pantoprazole 40 mg tablet,delayed 40 mg PO BID #180 tabs 12/06/23 04/13/25 Rx release calcium carbonate 500 mg PO QAM 01/21/24 04/13/25 History ferrous sulfate 325 mg (65 mg 325 mg PO BID #60 tabs 02/05/24 04/13/25 Rx iron) tablet acyclovir 400 mg tablet 400 mg PO BID 05/07/24 04/13/25 History ondansetron 4 mg disintegrating 4 mg PO Q8 PRN nausea #20 tabs 05/22/24 04/13/25 Rx tablet magnesium oxide 500 mg PO BID 08/09/24 04/13/25 History albuterol sulfate 90 mcg/actuation 2 inh inhalation Q6H PRN shortness 08/25/24 04/13/25 Rx aerosol inhaler of breath or wheezing #8.5 grams danazol 200 mg capsule 200 mg PO BID 09/13/24 04/13/25 History levothyroxine 125 mcg tablet 125 mcg PO QAM #90 tabs 09/27/24 04/13/25 Rx acetaminophen 325 mg tablet 650 mg PO Q4H PRN Pain 11/14/24 04/13/25 History aspirin 81 mg tablet,delayed 81 mg PO DAILY 11/14/24 04/13/25 History release (Adult Aspirin Regimen) cholecalciferol (vitamin D3) 25 25 mcg PO DAILY 11/14/24 04/13/25 History mcg (1,000 unit) capsule vitamin B complex-vitamin C-folic 1 tab PO BID 11/14/24 04/13/25 History acid 0.8 mg tablet (Renal Vitamin) allopurinol 300 mg tablet 300 mg PO DAILY 12/25/24 04/13/25 History bumetanide 1 mg tablet 1 mg PO BID #70 tabs 01/23/25 04/13/25 Rx folic acid 1 mg tablet 1 mg PO BID #180 tabs 02/03/25 04/13/25 Rx tacrolimus 0.5 mg capsule, 0.5 mg PO Q12H Dx: Z94.0 kidney 02/05/25 04/13/25 Rx immediate-release transplant #60 caps apixaban 5 mg tablet (Eliquis) 5 mg PO BID #180 tabs 02/19/25 04/13/25 Rx prednisone 5 mg tablet 5 mg PO QAM #90 tabs 03/14/25 04/13/25 Rx metoprolol succinate 50 mg 50 mg PO BID #90 tabs 03/17/25 04/13/25 Rx tablet,extended release 24 hr Past Med/Surg History Problem List (Updated 04/13/25 @ 05:18 by Jj Iniguez MD) Multifocal pneumonia Acute on chronic renal insufficiency (Acute) Complicated urinary tract infection (Acute) Chronic kidney disease, stage 4 (severe) Stage 3b chronic kidney disease PAF (paroxysmal atrial fibrillation) Elevated troponin hx, 07/2024; f/u [facility] cardiology Rhinovirus Anemia (Acute) Elevated brain natriuretic peptide (BNP) level (Acute) Elevated procalcitonin (Acute) Non-ST elevation NE (NSTEMI) (Acute) Generalized weakness (Acute) CKD (chronic kidney disease) (Acute) Hypomagnesemia (Acute) Shortness of breath (Acute) Pulmonary edema Pulmonary nodule Tophaceous gout Gait instability Acute DVT (deep venous thrombosis) Acute on chronic heart failure with preserved ejection fraction (HFpEF) Infiltrate of lower lobe of right lung present on imaging study (Acute) Rhinovirus infection (Acute) Acute kidney injury (Acute) Clostridioides difficile diarrhea Sleep apnea, obstructive RBBB (right bundle branch block with left anterior fascicular block) Diastolic CHF Human metapneumovirus (hMPV) pneumonia Atrial fibrillation Acute on chronic diastolic (congestive) heart failure Infection due to human metapneumovirus (hMPV) (Acute) Hypomagnesemia (Acute ~09/17/24) Pneumonia (Acute) Adrenal insufficiency Bilateral leg edema Atrial fibrillation with rapid ventricular response Sepsis due to pneumonia Kidney transplant status, living unrelated donor (Acute) Acute exacerbation of CHF (congestive heart failure) (Acute) Status post right hip replacement LVH (left ventricular hypertrophy) Coronary artery calcification CKD (chronic kidney disease) 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 Status post kidney transplant Warm autoimmune hemolytic anemia On prednisone therapy Ground glass opacity present on imaging of lung Rosales's esophagus with esophagitis Macrocytic anemia Erosive esophagitis EGD 08/2023 Abnormal findings on diagnostic imaging of other abdominal regions, including retroperitoneum Arthritis of right hip Hip arthritis Adrenal nodule CA PCP considering adrenal protocol CT or MRI for characterization Herpetic maria Aneurysm Abnormal LFTs Pneumonia Acute non-ST elevation myocardial infarction (NSTEMI) (Acute) 01/31/23 Megaloblastic anemia (Acute) Cerumen impaction Retroperitoneal mass lesion biopsy negative for malignancy 05/2022 per transplant record 03/17/23 Hypotension Diarrhea Adenomatous polyps Vitamin D deficiency Chronic kidney disease, stage 3a COVID-19 (Acute) Acute respiratory failure with hypoxemia (Acute) 07/29/20 Anemia (Chronic) hospitalized at [facility] 07/2023, received blood transfusion 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 History of esophageal reflux (Chronic) controlled, stable per pt Hyperlipidemia (Chronic) Hypothyroidism (Chronic) Obesity (Chronic) Osteoporosis (Chronic) Proteinuria (Chronic) Medical History Infection of finger Hx of sepsis Erosive esophagitis History of Clostridioides difficile infection CKD (chronic kidney disease) Bilateral leg edema Hx of adrenal insufficiency Hx of right bundle branch block History of recent hospitalization Rhinovirus infection Hypomagnesemia Hx of gout Hx of congestive heart failure Sleep apnea, obstructive Hypocalcemia Weakness Atrial fibrillation with rapid ventricular response Hypotension Heart failure with preserved ejection fraction Hypomagnesemia History of non-ST elevation myocardial infarction (NSTEMI) Osteoporosis Hypothyroidism Hyperlipidemia Hx of esophageal reflux FSGS (focal segmental glomerulosclerosis) Abdominal aortic aneurysm History of colon polyps Retroperitoneal mass Pneumonia Adrenal nodule Arthritis On prednisone therapy Rosales's esophagus with esophagitis Atrial flutter Autoimmune hemolytic anemia Thoracic ascending aortic aneurysm Hypertension Limb alert care status History of blood transfusion Hx of herpetic maria History of COVID-19 History of renal dialysis History of CVA (cerebrovascular accident) Surgical History History of total right hip arthroplasty Hx of kidney transplant History of esophagogastroduodenoscopy (EGD) Hx of cholecystectomy Hx of exploratory laparotomy History of colonoscopy Family History Grandmother (Maternal) Alzheimer disease Mother Depression Denies family history of Ovarian cancer Prostate cancer Diabetes Heart disease Myocardial infarction Breast cancer Lung cancer COPD (chronic obstructive pulmonary disease) Colorectal cancer Hypertension Stroke Social History Smoking Status: Never smoker Second Hand Exposure: No; Do You Dip or Chew Tobacco: No; Hx Alcohol Use: No Hx Substance Use: No 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: Kyrgyz Communication Ability: Effective Visual Impairment: No Limitations Hearing Ability: Normal Security Threat Analyst Required: No Beliefs That Will Affect Care: None marital status: Current Living Situation: Spouse current occupational status: employed current occupation: [employer] How many Children do You have: 1 Feels Safe at Home: Yes Childhood Exposure to Second-Hand Smoke: No Dental Care, Regularly: Yes Seatbelt Use: sometimes Sunscreen Use: No Assistive Devices: Cane and Walker Review of Systems Review of Systems: See HPI Physical Exam Physical Exam: The patient is awake, alert and oriented 3, well developed and well nourished, normocephalic and atraumatic, in no acute distress. Non-toxic appearing. HEENT- EOMI, mucous membranes dry. Hearing grossly intact. Heart-normal S1 and S2. No murmurs, rubs or gallops. Lungs-decreased bilaterally, no respiratory distress, no accessory muscle use. Abdomen-normal bowel sounds and soft. No ascites noted. Non-tender. Extremities- no clubbing, cyanosis. +2 pitting edema BL LE. Rheumatologic-normal range of motion. Psychiatric-normal affect. Results & Data Results & Data Vital Signs (Past 12 Hours) Vital Signs Temp Pulse Resp BP Pulse Ox O2 Del Method 04/13/25 00:30 86 12 102/67 95 04/13/25 00:26 79 04/13/25 00:01 86 18 95/64 L 96 Room Air 04/12/25 23:30 79 16 98/76 L 94 04/12/25 23:00 82 20 101/72 93 04/12/25 22:39 86 18 94/67 L 93 Room Air 04/12/25 20:20 Room Air 04/12/25 20:12 81 16 93/64 L 94 04/12/25 20:07 86 04/12/25 19:25 36.7 C 73 20 97/65 L 95 Room Air Laboratory Results reviewed CBC, CMP, PT/INR, lactate, magnesium, phosphorus's, troponin, procalcitonin, TSH, free T4, UA, bio fire Diagnostic Findings reviewed CXR and AP CT ECG Additional Comments: right bundle branch block, T wave inversions in all leads similar to previous Rate 88 Code Status & VTE Plan Code Status full code VTE Prophylaxis Plan VTE Prophylaxis will be ordered: Yes Supervising Physician Co-Signing Physician Notes Patient seen and examined, chart reviewed, case discussed with KARMEN Bolivar and I agree with the assessment and plan as above PG Care Time/CCT Total # of Minutes Spent Total Time Spent with Patient: Total time spent is greater than 50% in coordination of care (as documented) at patient's floor/unit and/or counseling patient: Coding Level of Care Code 55930 INT INP/OBS CARE 375MIN Diagnoses Multifocal pneumonia J18.8 Acute on chronic renal insufficiency N28.9; N18.9 Hypomagnesemia E83.42 Elevated troponin R79.89
--- NOTE | 2025-04-13 01:27 | CT Scan Report ---
EXAM: CT abd pelvis wo con CLINICAL HISTORY: Acute on chronic renal insuff TECHNIQUE: Non-contrast CT of the abdomen and pelvis was performed, with the following protocol: axial images, and reconstructed coronal and sagittal images. One of the following dose reduction techniques was utilized for this exam: Automated exposure control, adjustment of the mA and/or kV according to patient size, and use of iterative reconstruction. COMPARISON: 06/27/2024 CT and 12/28/2024 Ultrasound. FINDINGS: Visualized chest: Mild to moderate right-sided and mild left pleural effusion. Partially imaged patchy groundglass opacities with interlobular septal thickening. Partially imaged consolidative opacity in the right lung could represent a thick parenchymal band. Redemonstration of cardiomegaly. A small hiatal hernia is noted. Abdomen: Mild to moderate abdominopelvic free fluid is noted. Liver: Mild hepatomegaly, the liver span measures 17.1 cm on the CC dimension at the midclavicular line. No focal lesions, cysts, or masses were identified. Gallbladder and Biliary System: Postcholecystectomy status. Pancreas: No pancreatic masses or calcifications were noted. Spleen: Mild splenomegaly. The spleen measures 14.5 cm on the CC dimension. It shows multiple likely calcified tiny granulomas. Appendix: The appendix could not be assessed properly due to the lack of IV contrast and abdominopelvic ascites. Kidneys and Adrenal Glands: [place] kidneys are atrophied. No hydronephrosis. 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 It shows a 9 mm hyperdense rounded lesion in its upper lobe pole, which could represent a hemorrhagic/proteinaceous cyst. It shows a tiny nonobstructive upper calyceal group stone and a 12 mm likely midportion cortical cyst with adjacent small hyperdensity. No significant hydronephrosis. Partial resolution of the infiltrative area adjacent to the left adrenal gland. Abdominal Aorta and Vessels: Atherosclerotic changes of the abdominal aorta and its major branches, significant atherosclerotic changes of the renal arteries, and external and internal iliac arteries. Pelvis: Urinary Bladder: Nearly empty urinary bladder with apparent urinary bladder wall thickening. Prostate: Unremarkable. Peritoneal and Retroperitoneal Structures: Redemonstration of left posterior perivascular density, now measuring 3.8 cm in the maximum axial dimension. Mild to moderate free fluid in the abdomen and pelvis. Bowel: Multiple colonic diverticula. Apparent circumferential thickening of the proximal sigmoid colon, appreciated on the coronal and sagittal images, could be due to partial collapse. No significant adjacent fat stranding. Apparent perirectal fat stranding. Bones and Soft Tissues: Small umbilical hernia with adjacent small bowel loops, no evidence of small bowel obstruction. Fat-containing right inguinal hernia. The right prosthetic hip obscures proper visualization of the lower pelvic organs. An 8 mm sclerotic bony lesion in the right ischium could represent a bony island. Degenerative changes of the visualized skeleton. Grade 1 anterolisthesis of T11 over T12 with redemonstration of compressive deformity of the T12 vertebral body. Mild anterior and posterior wedging of the lumbar vertebrae. The vacuum phenomenon is noted. Unchanged. IMPRESSION: 1. Newly appreciated bilateral pleural effusion, more on the right. 2. Partially imaged patchy groundglass opacities with interlobular septal thickening. This could be due to fluid overload/pulmonary edema. If clinically indicated, please correlate with a dedicated chest CT scan. 3. Newly appreciated mild to moderate abdominopelvic ascites. 4. The transplanted kidney shows a 9 mm hyperdense rounded upper pole lesion and a tiny, likely non-obstructive stone, which are more conspicuous in the present study due to the lack of IV contrast. Redemonstration of the 12 mm cortical renal cyst. No hydronephrosis. 5. Partial resolution of the infiltrative density adjacent to the left adrenal gland and in the posterior left abdomen. 6. Multiple colonic diverticuli. Apparent circumferential thickening of the proximal sigmoid colon with no significant pericolonic fat stranding. This is likely due to partial collapse/reactionary; however, an early acute diverticulitis cannot be ruled out. Clinical correlation is advised. 7. Redemonstration of hepatosplenomegaly and cardiomegaly. Electronically signed by Roosevelt Rojas 04-13-2025 01:26 AM
[2025-04-13 01:47] LABS: Creatine Kinase 91.0 U/L (30-223)
[2025-04-13] MEDS: ONDANSETRON INJ 2 MG/ML 2 ML VIAL IV PRN (02:37)
[2025-04-13] MEDS ORDERED: ONDANSETRON INJ 2 MG/ML 2 ML VIAL IV PRN (03:53)
[2025-04-13] MEDS ORDERED: ACETAMINOPHEN 325 MG TAB PO PRN (03:53)
[2025-04-13] MEDS ORDERED: ALBUTEROL HFA 8 GM INHALER INH PRN (03:53)
[2025-04-13] MEDS: CEFEPIME 2000MG 2,000 MG/20 ML SYR IV ONE (04:48)
[2025-04-13 04:59] LABS: Hematocrit (blood only) 29.8 % (42.0-52.0); Hemoglobin 9.2 g/dl (14.0-18.0); Immature Granulocytes # (auto) 0.15 K/uL (0.01-0.20); Immature Granulocytes % (auto) 2.3 %; Mean Corpuscular Hemoglobin 32.9 pg (25.0-34.0); Mean Corpuscular Volume 106.4 fL (80.0-100.0); Platelet Count 148 K/uL (130-400); RDW Standard Deviation 61.7 fL (36.4-46.3); Red Blood Count 2.80 M/uL (4.70-6.10); White Blood Count 6.54 K/ul (4.8-10.8)
[2025-04-13 05:18] LABS: Anion Gap 13.0 (3-11); Blood Urea Nitrogen 88.0 mg/dl (6-23); Calcium 9.0 mg/dl (8.6-10.3); Carbon Dioxide 23.0 mmol/L (21-32); Chloride 101.0 mmol/L (98-107); Creatinine Clr Calc Pharmacy 12.7 ml/min; Glucose 87.0 mg/dl (70-99(Fasting)); Magnesium 1.5 mg/dl (1.7-2.4); Potassium 4.9 mmol/L (3.5-5.1); Sodium 137.0 mmol/L (136-145)
[2025-04-13 05:54] LABS: RBC Morphology Unremarkable
[2025-04-13] MEDS: MAGNESIUM OXIDE 400 MG TAB PO SCH (08:33)
[2025-04-13] MEDS: FOLIC ACID 1 MG TAB PO SCH (08:33)
[2025-04-13] MEDS: FERROUS SULFATE 325 MG TAB PO SCH (08:33)
[2025-04-13] MEDS: LEVOTHYROXINE SODIUM 125 MCG TABLET PO SCH (08:33)
[2025-04-13] MEDS: ASPIRIN 81 MG ECTAB PO SCH (08:34)
[2025-04-13] MEDS: APIXABAN 5 MG TABLET PO SCH (08:34)
[2025-04-13] MEDS: METOPROLOL SUCC 50MG EXT REL TAB PO SCH (08:35)
--- NOTE | 2025-04-13 09:29 | Nephrology Consultation ---
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 Post transplant Cr was 1.4. Patient has suffered recurrent episodes of KRISSY. Serum Cr has progressively risen to 2.5-2.8 w/ EGFR 24 cc/min * Outpatient immunosuppressive regimen has been MMF 250 mg 2 tablets po BID, prednisone 5 mg po qAM, tacrolimus 0.5 mg po BID (2) Acute kidney injury superimposed on stage 4 chronic kidney disease: * 04/13/[address] without contrast: no hydro of LURT * Urinalysis negative for granular casts. Urine culture is pending * Continue tacrolimus and prednisone, hold MMF * Monitor BMP, UO (3) Multifocal pneumonia: * On empiric Cefepime. Recommend consultation w/ pharmacy for dose adjustment in the setting of KRISYS. Monitor closely for neurotoxicity * Await blood culture results History of Present Illness Reason for Consultation: KRISSY/CKD, LURT Attending Physician: Eleanor Dowell MD History of Present Illness Mr. Mandel is a 64-year-old white male who was seen at the request of the [facility] hospitalist service for evaluation of KRISSY/CKD, LURT. Information for the HPI is obtained from direct patient interview and review of the EMR. HPI is summarized as follows: Mr. 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 He was on hemodialysis for 1.5 years before he received a transplant from his stepson. This was performed at [facility] 02/2010. 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 Post transplant creatinine stabilized at 1.4. UACR has been 0.7. MEAGAN inhibitor therapy was stopped due to low blood pressure. Current immunosuppressive regimen consists of tacrolimus 0.5 mg BID, MMF 500 mg BID, prednisone 5 mg daily. Patient remains on metoprolol 50 mg BID due to history of ASCVD, prior CVA, atrial fibrillation. Mr. Mandel's medical history is also significant for warm autoimmune hemolytic anemia. First instance was in 02/08. He required blood transfusion and Velcade therapy. Mr. Mandel has since had several hospitalizations complicated by KRISSY. He presented to the [facility] EMD last evening for evaluation of STOCK and generalized weakness. He has been afebrile but relatively hypotensive. CXR films cannot be viewed. Radiology x- ray report states multifocal pneumonia R > L w/ mild pulmonary vascular congestion. Abdominal CT confirms R > L pleural effusion, patchy ground glass opacities in the lungs, abdominal ascites and thickening of the proximal sigmoid colon. Cr has risen to 6.58. Hgb is stable at 9.2. 500 cc 0.9 NS administered in EMD. Respiratory biofire testing was negative. Blood and urine cultures are pending. Empiric cefepime has been started. Admitting service has held acyclovir, bumex, MMF and tacrolimus. PMH: FSGS s/p LURT, WAHA, HFpEF, COPD, CHERELLE, hypothyroidism, ASCVD, atrial fibrillation, prior CVA Allergies Allergy/AdvReac Type Severity Reaction Status Date / Time clopidogrel [From Plavix] Allergy Unknown Unknown Verified 03/14/25 10:20 Yxxnotb-ZSF-QeZ Reductase AdvReac Intermediate myalgias Verified 03/14/25 10:20 Inhibitor [Xhtuknk-Ysf-Dks Reductase Inhibitor] Home Medications Medication Instructions Recorded Confirmed Type mycophenolate mofetil 250 mg 500 mg (2 x 250 mg) PO BID #360 05/29/20 04/13/25 Rx capsule caps amoxicillin 500 mg capsule 2,000 mg PO DIRECTED PRN PRIOR 07/29/20 04/13/25 History TO DENTAL PROCEDURES pantoprazole 40 mg tablet,delayed 40 mg PO BID #180 tabs 12/06/23 04/13/25 Rx release calcium carbonate 500 mg PO QAM 01/21/24 04/13/25 History ferrous sulfate 325 mg (65 mg 325 mg PO BID #60 tabs 02/05/24 04/13/25 Rx iron) tablet acyclovir 400 mg tablet 400 mg PO BID 05/07/24 04/13/25 History ondansetron 4 mg disintegrating 4 mg PO Q8 PRN nausea #20 tabs 05/22/24 04/13/25 Rx tablet magnesium oxide 500 mg PO BID 08/09/24 04/13/25 History albuterol sulfate 90 mcg/actuation 2 inh inhalation Q6H PRN shortness 08/25/24 04/13/25 Rx aerosol inhaler of breath or wheezing #8.5 grams danazol 200 mg capsule 200 mg PO BID 09/13/24 04/13/25 History levothyroxine 125 mcg tablet 125 mcg PO QAM #90 tabs 09/27/24 04/13/25 Rx acetaminophen 325 mg tablet 650 mg PO Q4H PRN Pain 11/14/24 04/13/25 History aspirin 81 mg tablet,delayed 81 mg PO DAILY 11/14/24 04/13/25 History release (Adult Aspirin Regimen) cholecalciferol (vitamin D3) 25 25 mcg PO DAILY 11/14/24 04/13/25 History mcg (1,000 unit) capsule vitamin B complex-vitamin C-folic 1 tab PO BID 11/14/24 04/13/25 History acid 0.8 mg tablet (Renal Vitamin) allopurinol 300 mg tablet 300 mg PO DAILY 12/25/24 04/13/25 History bumetanide 1 mg tablet 1 mg PO BID #70 tabs 01/23/25 04/13/25 Rx folic acid 1 mg tablet 1 mg PO BID #180 tabs 02/03/25 04/13/25 Rx tacrolimus 0.5 mg capsule, 0.5 mg PO Q12H Dx: Z94.0 kidney 02/05/25 04/13/25 Rx immediate-release transplant #60 caps apixaban 5 mg tablet (Eliquis) 5 mg PO BID #180 tabs 02/19/25 04/13/25 Rx prednisone 5 mg tablet 5 mg PO QAM #90 tabs 03/14/25 04/13/25 Rx metoprolol succinate 50 mg 50 mg PO BID #90 tabs 03/17/25 04/13/25 Rx tablet,extended release 24 hr Patient History Medical History Infection of finger Hx of sepsis due to pneumonia, ~07/26/24, hospitalized at [facility] Erosive esophagitis hx, EGD 08/2023 History of Clostridioides difficile infection dx 09/14/24, [facility]; 09/24/24, per pt, "will be finishing abx in next day or so" CKD (chronic kidney disease) f/u sd nephrology Bilateral leg edema "has some, has gotten better" Hx of adrenal insufficiency Hx of right bundle branch block f/u sd cardiology History of recent hospitalization pt admitted to [facility] multiple times over 2023 (01/21/24, 05/2024-sx, 07/13/24, 07/26/24, 08/22/24, 08/24/24); most recent visit 08/24/24 per records "63-year-old male with past medical history significant for HFpEF, A-fib, ESRD, WAHA, and additional chronic medical conditions who is presenting for sudden onset of chest pain with shortness of breath after exertion following eating out at [employer] followed by increased activity with cutting wood and developed chest pain. CXR with evidence for volume overload and was provided IV Lasix last nitro on admission with improvement/resolution of s ymptoms. Also with KRISSY that was likely due to hypotension/hypoperfusion and increased diuretic use recently; improving. Also with A-fib RVR, suspect due to increased salt load/increased activity/untreated CHERELLE." Rhinovirus infection Hypomagnesemia Hx of gout Hx of congestive heart failure Sleep apnea, obstructive no device Hypocalcemia hx Weakness Atrial fibrillation with rapid ventricular response controlled w/ metoprolol; f/u [facility] cardiology Hypotension pt unaware? 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 Abdominal aortic aneurysm 4.9 cm on 01/2023 chest CTA; monitoring History of colon polyps Retroperitoneal mass lesion biopsy negative for malignancy 05/2022 per transplant record 03/17/23 Pneumonia hx, ~08/23/24 Adrenal nodule monitored by PCP Arthritis On prednisone therapy Rosales's esophagus with esophagitis Atrial flutter hx 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 Thoracic ascending aortic aneurysm 4.[address] 01/19/24 Hypertension controlled, stable per pt Limb alert care status left arm restriction History of blood transfusion ~07/2024 Hx of herpetic maria History of COVID-19 07/2020- covid pneumonia, hospitalized; resolved History of renal dialysis prior to kidney transplant; has dialysis fistula left arm History of CVA (cerebrovascular accident) 2008, mild memory changes Surgical History History of total right hip arthroplasty Hx of kidney [place]2010[place] History of esophagogastroduodenoscopy (EGD) Hx of cholecystectomy Hx of exploratory laparotomy History of colonoscopy Family History Grandmother (Maternal) Alzheimer disease Mother Depression Denies family history of Ovarian cancer Prostate cancer Diabetes Heart disease Myocardial infarction Breast cancer Lung cancer COPD (chronic obstructive pulmonary disease) Colorectal cancer Hypertension Stroke Social History Smoking Status: Never smoker Second Hand Exposure: No; Do You Dip or Chew Tobacco: No; Hx Alcohol Use: No Hx Substance Use: No 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: Czech Communication Ability: Effective Visual Impairment: No Limitations Hearing Ability: Normal Car Dealer Required: No Beliefs That Will Affect Care: None marital status: Current Living Situation: Spouse current occupational status: employed current occupation: [employer] How many Children do You have: 1 Feels Safe at Home: Yes Childhood Exposure to Second-Hand Smoke: No Dental Care, Regularly: Yes Seatbelt Use: sometimes Sunscreen Use: No Assistive Devices: Cane and Walker Review of Systems Constitutional: + weakness; no fever Eyes: no problem reported Ear, Nose, Mouth, Throat: no problem reported Respiratory: + dyspnea on exertion; no hemoptysis, no pain with cough and no sputum production Cardiovascular: no chest pain Gastrointestinal: no abdominal pain, no nausea, no vomiting and no diarrhea/loose stools Genitourinary: + problem reported (no pain overlying tr ansplant allograft); no dysuria or no hematuria Musculoskeletal: + myalgia Integumentary: no rash Physical Exam Physical Exam: Chronically ill appearing Eyes: PERRL, conjunctivae normal, anicteric sclerae ENMT: external ear and nose normal, oropharynx normal Neck: trachea midline, no thyromegaly Respiratory: normal respiratory effort Auscultation: + rales Cardiovascular: Rate/Rhythm: regular rate and regular rhythm Extremities: + edema (1+ pretibial pitting edema) Gastrointestinal (Abdomen): normal bowel sounds, soft, nontender, no hepatosplenomegaly Musculoskeletal: Extremities: + hand abnormality (sausage shaped fingers R hand, tophi L middle finger) Skin: no rashes, warm and dry Neurologic: awake; not confused Results & Data Vital Signs (Past 12 Hours) Vital Signs Temp Pulse Resp BP Pulse Ox Pulse Ox O2 Del Method 04/13/25 07:03 83 04/13/25 07:00 95/72 L 04/13/25 07:00 84 16 100 Nasal Cannula 04/13/25 06:29 85 L Room Air, Nasal Cannula 04/13/25 06:18 84 14 90 Nasal Cannula 04/13/25 06:13 84 14 102/72 99 Room Air 04/13/25 04:49 95 04/13/25 04:48 85 15 99/76 L 95 Room Air 04/13/25 04:00 36.6 C 85 16 93/74 L 91 04/13/25 03:00 79 16 105/73 91 04/13/25 02:10 82 18 97/63 L 96 Room Air 04/13/25 01:00 82 14 94/59 L 92 04/13/25 00:30 86 12 102/67 95 04/13/25 00:26 79 04/13/25 00:01 86 18 95/64 L 96 Room Air 04/12/25 23:30 79 16 98/76 L 94 04/12/25 23:00 82 20 101/72 93 04/12/25 22:39 86 18 94/67 L 93 Room Air O2 Del Method O2 Flow Rate 04/13/25 07:03 04/13/25 07:00 04/13/25 07:00 2 04/13/25 06:29 04/13/25 06:18 2 04/13/25 06:13 04/13/25 04:49 Room Air 04/13/25 04:48 04/13/25 04:00 04/13/25 03:00 04/13/25 02:10 04/13/25 01:00 04/13/25 00:30 04/13/25 00:26 04/13/25 00:01 04/12/25 23:30 04/12/25 23:00 04/12/25 22:39 Laboratory Results Laboratory Results WBC 6.54 K/ul (4.8-10.8) 04/13/25 04:45 RBC 2.80 M/uL (4.70-6.10) L 04/13/25 04:45 Hgb 9.2 g/dl (14.0-18.0) L 04/13/25 04:45 Hct 29.8 % (42.0-52.0) L 04/13/25 04:45 MCV 106.4 fL (80.0-100.0) H 04/13/25 04:45 MCH 32.9 pg (25.0-34.0) 04/13/25 04:45 MCHC 30.9 g/dL (32.0-36.0) L 04/13/25 04:45 RDW Std Deviation 61.7 fL (36.4-46.3) H 04/13/25 04:45 RDW Coeff of Jaye 15.7 % (11.5-14.5) H 04/13/25 04:45 Plt Count 148 K/uL (130-400) 04/13/25 04:45 MPV 10.2 fL (9.4-12.4) 04/13/25 04:45 Immature Gran % (Auto) 2.3 % 04/13/25 04:45 Neut % (Auto) 79.6 % 04/13/25 04:45 Lymph % (Auto) 4.4 % 04/13/25 04:45 [place] % (Auto) 10.6 % 04/13/25 04:45 Eos % (Auto) 2.8 % 04/13/25 04:45 Baso % (Auto) 0.3 % 04/13/25 04:45 Neut # (Auto) 5.21 K/uL (1.40-6.50) 04/13/25 04:45 Lymph # (Auto) 0.29 K/uL (1.20-3.40) L 04/13/25 04:45 [place] # (Auto) 0.69 K/uL (0.11-0.59) H 04/13/25 04:45 Eos # (Auto) 0.18 K/uL (0.00-0.50) 04/13/25 04:45 Baso # (Auto) 0.02 K/uL (0.00-0.20) 04/13/25 04:45 Immature Gran # (Auto) 0.15 K/uL (0.01-0.20) 04/13/25 04:45 Absolute Nucleated RBC 0.21 K/uL (0.00-0.12) H 04/13/25 04:45 Nucleated RBC % (auto) 3.2 % 04/13/25 04:45 RBC Morphology Unremarkable 04/13/25 04:45 PT 14.6 Seconds (9.0-12.0) H 04/12/25 19:40 INR 1.4 (0.9-1.1) H 04/12/25 19:40 APTT 34 Seconds (21-31) H 04/12/25 19:40 PTT Ratio 1.3 04/12/25 19:40 Sodium 137 mmol/L (136-145) 04/13/25 04:45 Potassium 4.9 mmol/L (3.5-5.1) 04/13/25 04:45 Chloride 101 mmol/L (98-107) 04/13/25 04:45 Carbon Dioxide 23 mmol/L (21-32) 04/13/25 04:45 Anion Gap 13 (3-11) H 04/13/25 04:45 BUN 88 mg/dl (6-23) H 04/13/25 04:45 Creatinine 6.58 mg/dl (0.6-1.4) H* 04/13/25 04:45 Est Cr Clr Drug Dosing 12.7 ml/min 04/13/25 04:45 eGFR 8.76 04/13/25 04:45 BUN/Creatinine Ratio 13.4 (10-20) 04/13/25 04:45 Glucose 87 mg/dl (70-99(Fasting)) 04/13/25 04:45 Lactate 0.9 mmol/L (0.4-2.0) 04/13/25 00:13 Calcium 9.0 mg/dl (8.6-10.3) 04/13/25 04:45 Phosphorus 5.7 mg/dl (2.5-4.9) H 04/13/25 04:45 Magnesium 1.5 mg/dl (1.7-2.4) L 04/13/25 04:45 Total Bilirubin 1.7 mg/dl (0.2-1.0) H 04/12/25 19:40 AST 43 U/L (13-39) H 04/12/25 19:40 ALT 23 U/L (7-52) 04/12/25 19:40 Alkaline Phosphatase 110 U/L (34-104) H 04/12/25 19:40 Total Creatine Kinase 91 U/L (30-223) 04/12/25 21:19 Troponin I High Sens 294.3 pg/ml (0-20) H* 04/13/25 04:45 B-Natriuretic Peptide 1267 pg/ml (0-100) H 04/12/25 19:40 Total Protein 6.7 gm/dl (6.0-8.3) 04/12/25 19:40 Albumin 3.7 gm/dl (3.4-5.0) 04/12/25 19:40 Globulin 3.0 gm/dl (2.5-4.0) 04/12/25 19:40 Albumin/Globulin Ratio 1.2 (0.9-2) 04/12/25 19:40 Procalcitonin 0.60 ng/ml (0-0.5) H 04/12/25 23:43 TSH 12.115 uIu/ml (0.300-4.500) H 04/12/25 19:40 Free T4 0.76 ng/dl (0.61-1.60) 04/12/25 19:40 Urine Color Dark Yellow 04/12/25 23:05 Urine Appearance Cloudy (Clear) A 04/12/25 23:05 Urine pH 5.0 (4.5-7.5) 04/12/25 23:05 Ur Specific [place] 1.024 (1.000-1.030) 04/12/25 23:05 Urine Protein 2+ (Negative) H 04/12/25 23:05 Urine Glucose (UA) Negative (Negative) 04/12/25 23:05 Urine Ketones Trace (Negative) H 04/12/25 23:05 Urine Blood Negative (Negative) 04/12/25 23:05 Urine Nitrite Positive (Negative) A 04/12/25 23:05 Urine Bilirubin 2+ (Negative) H 04/12/25 23:05 Urine Urobilinogen Negative (Negative) 04/12/25 23:05 Ur Leukocyte Esterase 1+ (Negative) H 04/12/25 23:05 Urine WBC (Auto) 0-5 /hpf (0-5) 04/12/25 23:05 Urine RBC (Auto) 0-2 /hpf (0-2) 04/12/25 23:05 U Hyaline Cast (Auto) 6-10 /lpf (0-2) H 04/12/25 23:05 U Epithel Cells (Auto) 0-2 /hpf (0-2) 04/12/25 23:05 Urine Bacteria (Auto) 1+ (None Seen) H 04/12/25 23:05 Calcium Oxalate Crystal Present (None Prsent) A 04/12/25 23:05 Urine Mucus Present (None Prsent) A 04/12/25 23:05 Ur Random Creatinine 261.6 mg/dl 04/13/25 04:54 Urine Comment 04/12/25 23:05 Nasal Screen MRSA (PCR) Negative (Negative) 04/13/25 01:10 Adenovirus (PCR) Not Detected (NotDetected) 04/12/25 20:33 B. pertussis DNA (PCR) Not Detected (NotDetected) 04/12/25 20:33 B.parapertussis DNA PCR Not Detected (NotDetected) 04/12/25 20:33 C. pneumoniae DNA (PCR) Not Detected (NotDetected) 04/12/25 20:33 Coronavirus OC43 (PCR) Not Detected (NotDetected) 04/12/25 20:33 Coronavirus HKU1 (PCR) Not Detected (NotDetected) 04/12/25 20:33 Coronavirus 229E (PCR) Not Detected (NotDetected) 04/12/25 20:33 SARS-CoV-2 (PCR) Not Detected (NotDetected) 04/12/25 20:33 Coronavirus NL63 (PCR) Not Detected (NotDetected) 04/12/25 20:33 Human Metapneumovir PCR Not Detected (NotDetected) 04/12/25 20:33 Influenza Type A (PCR) Not Detected (NotDetected) 04/12/25 20:33 Influenza Type B (PCR) Not Detected (NotDetected) 04/12/25 20:33 M. pneumoniae (PCR) Not Detected (NotDetected) 04/12/25 20:33 Parainfluenza 1 (PCR) Not Detected (NotDetected) 04/12/25 20:33 Parainfluenza 2 (PCR) Not Detected (NotDetected) 04/12/25 20:33 Parainfluenza 3 (PCR) Not Detected (NotDetected) 04/12/25 20:33 Parainfluenza 4 (PCR) Not Detected (NotDetected) 04/12/25 20:33 RSV (PCR) Not Detected (NotDetected) 04/12/25 20:33 Entero/Rhino (PCR) Not Detected (NotDetected) 04/12/25 20:33 Impressions Chest X-Ray 04/12/25 19:30 EXAM: Portable AP chest radiograph TECHNIQUE: AP portable radiograph of the chest was obtained. INDICATION: Shortness of breath Comparison: Chest radiograph December 25, 2024. CT thorax March 06, 2025 FINDINGS: LINES and TUBES: None CARDIOVASCULAR: Cardiac silhouette is stably and markedly in size. LUNGS/PLEURA: Redemonstrated multifocal airspace opacities involving right greater than left lungs. Mild pulmonary vascular congestion and underlying chronic interstitial lung changes. Small pleural fluids. No discernible pneumothorax. OSSEOUS/OTHER: No displaced acute osseous process identified. IMPRESSION: Multifocal pneumonia involving right greater than left lungs superimposed upon chronic congestive changes of the cardiovascular system. Electronically signed by Adrian Woodson 04-12-2025 8:30 PM Abdomen/Pelvis CT 04/12/25 23:43 EXAM: CT abd pelvis wo con CLINICAL HISTORY: Acute on chronic renal insuff TECHNIQUE: Non-contrast CT of the abdomen and pelvis was performed, with the following protocol: axial images, and reconstructed coronal and sagittal images. One of the following dose reduction techniques was utilized for this exam: Automated exposure control, adjustment of the mA and/or kV according to patient size, and use of iterative reconstruction. COMPARISON: 06/27/2024 CT and 12/28/2024 Ultrasound. FINDINGS: Visualized chest: Mild to moderate right-sided and mild left pleural effusion. Partially imaged patchy groundglass opacities with interlobular septal thickening. Partially imaged consolidative opacity in the right lung could represent a thick parenchymal band. Redemonstration of cardiomegaly. A small hiatal hernia is noted. Abdomen: Mild to moderate abdominopelvic free fluid is noted. Liver: Mild hepatomegaly, the liver span measures 17.1 cm on the CC dimension at the midclavicular line. No focal lesions, cysts, or masses were identified. Gallbladder and Biliary System: Postcholecystectomy status. Pancreas: No pancreatic masses or calcifications were noted. Spleen: Mild splenomegaly. The spleen measures 14.5 cm on the CC dimension. It shows multiple likely calcified tiny granulomas. Appendix: The appendix could not be assessed properly due to the lack of IV contrast and abdominopelvic ascites. Kidneys and Adrenal Glands: [place] kidneys are atrophied. No hydronephrosis. 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 It shows a 9 mm hyperdense rounded lesion in its upper lobe pole, which could represent a hemorrhagic/proteinaceous cyst. It shows a tiny nonobstructive upper calyceal group stone and a 12 mm likely midportion cortical cyst with adjacent small hyperdensity. No significant hydronephrosis. Partial resolution of the infiltrative area adjacent to the left adrenal gland. Abdominal Aorta and Vessels: Atherosclerotic changes of the abdominal aorta and its major branches, significant atherosclerotic changes of the renal arteries, and external and internal iliac arteries. Pelvis: Urinary Bladder: Nearly empty urinary bladder with apparent urinary bladder wall thickening. Prostate: Unremarkable. Peritoneal and Retroperitoneal Structures: Redemonstration of left posterior perivascular density, now measuring 3.8 cm in the maximum axial dimension. Mild to moderate free fluid in the abdomen and pelvis. Bowel: Multiple colonic diverticula. Apparent circumferential thickening of the proximal sigmoid colon, appreciated on the coronal and sagittal images, could be due to partial collapse. No significant adjacent fat stranding. Apparent perirectal fat stranding. Bones and Soft Tissues: Small umbilical hernia with adjacent small bowel loops, no evidence of small bowel obstruction. Fat-containing right inguinal hernia. The right prosthetic hip obscures proper visualization of the lower pelvic organs. An 8 mm sclerotic bony lesion in the right ischium could represent a bony island. Degenerative changes of the visualized skeleton. Grade 1 anterolisthesis of T11 over T12 with redemonstration of compressive deformity of the T12 vertebral body. Mild anterior and posterior wedging of the lumbar vertebrae. The vacuum phenomenon is noted. Unchanged. IMPRESSION: 1. Newly appreciated bilateral pleural effusion, more on the right. 2. Partially imaged patchy groundglass opacities with interlobular septal thickening. This could be due to fluid overload/pulmonary edema. If clinically indicated, please correlate with a dedicated chest CT scan. 3. Newly appreciated mild to moderate abdominopelvic ascites. 4. The transplanted kidney shows a 9 mm hyperdense rounded upper pole lesion and a tiny, likely non-obstructive stone, which are more conspicuous in the present study due to the lack of IV contrast. Redemonstration of the 12 mm cortical renal cyst. No hydronephrosis. 5. Partial resolution of the infiltrative density adjacent to the left adrenal gland and in the posterior left abdomen. 6. Multiple colonic diverticuli. Apparent circumferential thickening of the proximal sigmoid colon with no significant pericolonic fat stranding. This is likely due to partial collapse/reactionary; however, an early acute diverticulitis cannot be ruled out. Clinical correlation is advised. 7. Redemonstration of hepatosplenomegaly and cardiomegaly. Electronically signed by Roosevelt Rojas 04-13-2025 01:26 AM PG Care Time/CCT Total # of Minutes Spent Total Time Spent with Patient: Total time spent is greater than 50% in coordination of care (as documented) at patient's floor/unit and/or counseling patient: Coding Level of Care Code 22737 IN/OBS CONSULT LVL 5,80M Diagnoses Status post kidney transplant Z94.0 Acute kidney injury superimposed on stage 4 chronic kidney disease N17.9; N18.4 Multifocal pneumonia J18.8
[2025-04-13] MEDS: CEFEPIME 1000MG 1,000 MG/10 ML SYR IV SCH (17:32)
[2025-04-13] MEDS: TACROLIMUS 0.5 MG CAP PO SCH (20:35)
[2025-04-13] MEDS ORDERED: DANAZOL EXT SCH (21:00)
[2025-04-14 06:20] LABS: Hematocrit (blood only) 29.0 % (42.0-52.0); Hemoglobin 9.1 g/dl (14.0-18.0); Immature Granulocytes # (auto) 0.19 K/uL (0.01-0.20); Immature Granulocytes % (auto) 2.8 %; Mean Corpuscular Hemoglobin 33.1 pg (25.0-34.0); Mean Corpuscular Volume 105.5 fL (80.0-100.0); Platelet Count 120 K/uL (130-400); RDW Standard Deviation 60.0 fL (36.4-46.3); Red Blood Count 2.75 M/uL (4.70-6.10); White Blood Count 6.75 K/ul (4.8-10.8)
[2025-04-14 06:38] LABS: Anion Gap 13.0 (3-11); Blood Urea Nitrogen 89.0 mg/dl (6-23); Calcium 8.7 mg/dl (8.6-10.3); Carbon Dioxide 21.0 mmol/L (21-32); Chloride 102.0 mmol/L (98-107); Creatinine Clr Calc Pharmacy 11.8 ml/min; Glucose 85.0 mg/dl (70-99(Fasting)); Potassium 4.9 mmol/L (3.5-5.1); Sodium 136.0 mmol/L (136-145)
[2025-04-14 06:46] LABS: RBC Morphology Unremarkable
--- NOTE | 2025-04-14 09:01 | Nephrology Progress Note ---
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 Post transplant Cr was 1.4. Patient has suffered recurrent episodes of KRISSY. Serum Cr has progressively risen to a new baseline of 2.5-2.8 w/ EGFR 24 cc/min * Outpatient immunosuppressive regimen has been MMF 250 mg 2 tablets po BID, prednisone 5 mg po qAM, tacrolimus 0.5 mg po BID (2) Acute kidney injury superimposed on stage 4 chronic kidney disease: Plan: * 04/13/[address] without contrast: no hydro of LURT * Urinalysis negative for granular casts * Continue tacrolimus and prednisone, hold MMF * 04/14/25 trough tacrolimus is pending * Monitor BMP, UO * Laboratory results from this morning were reviewed with Mr. Mandel. Indications/benefits/alternatives to MARKET ANALYST were reviewed in detail. Patient understands that dialysis may become necessary if his kidney function fails to improve with antibiotic and supportive care. He is agreeable to IJ TCC and starting dialysis if it becomes necessary. (3) Multifocal pneumonia: Plan: * On empiric Cefepime. Recommend consultation w/ pharmacy for dose adjustment in the setting of KRISSY. Monitor closely for neurotoxicity * Blood and urine cultures are no growth to date. Admission and Anticipated Discharge Date Admission Date: April 13, 2025 Subjective Mr. Mandel was evaluated in his hospital room this morning. He reported that his breathing was subjectively improved. He denied productive cough. He appeared to be breathing comfortably flat in bed on RA. Review of Systems Constitutional: + weakness; no fever Eyes: no problem reported Ear, Nose, Mouth, Throat: no problem reported Respiratory: + dyspnea on exertion; no hemoptysis, no pain with cough and no sputum production Cardiovascular: no chest pain Gastrointestinal: no abdominal pain, no nausea, no vomiting and no diarrhea/loose stools Genitourinary: + problem reported (no pain overlying tr ansplant allograft); no dysuria or no hematuria Musculoskeletal: + myalgia Integumentary: no rash Physical Exam Physical Exam: Chronically ill appearing Eyes: PERRL, conjunctivae normal, anicteric sclerae ENMT: external ear and nose normal, oropharynx normal Neck: trachea midline, no thyromegaly Respiratory: normal respiratory effort Auscultation: + rales Cardiovascular: Rate/Rhythm: regular rate and regular rhythm Extremities: + edema (1+ pretibial pitting edema) Gastrointestinal (Abdomen): normal bowel sounds, soft, nontender, no hepatosplenomegaly Musculoskeletal: Extremities: + hand abnormality (sausage shaped fingers R hand, tophi L middle finger) Skin: no rashes, warm and dry Neurologic: awake; not confused Results & Data Vital Signs (Past 12 Hours) Vital Signs Temp Pulse Pulse Pulse Resp BP BP 04/14/25 08:00 36.7 C 85 18 105/65 04/14/25 03:40 36.4 C L 98 H 16 99/65 L 04/13/25 23:30 84 04/13/25 23:16 36.4 C L 84 16 102/70 Pulse Ox O2 Del Method 04/14/25 08:00 97 Room Air 04/14/25 03:40 98 Room Air 04/13/25 23:30 04/13/25 23:16 95 Room Air Laboratory Results Laboratory Results - last 24 hr 04/13/25 04/13/25 04/14/25 09:56 15:50 05:43 WBC 6.75 RBC 2.75 L Hgb 9.1 L Hct 29.0 L MCV 105.5 H MCH 33.1 MCHC 31.4 L RDW Std Deviation 60.0 H RDW Coeff of Jaye 15.8 H Plt Count 120 L MPV 10.7 Immature Gran % (Auto) 2.8 Neut % (Auto) 79.5 Lymph % (Auto) 3.4 [place] % (Auto) 11.3 Eos % (Auto) 2.7 Baso % (Auto) 0.3 Neut # (Auto) 5.37 Lymph # (Auto) 0.23 L [place] # (Auto) 0.76 H Eos # (Auto) 0.18 Baso # (Auto) 0.02 Immature Gran # (Auto) 0.19 Absolute Nucleated RBC 0.19 H Nucleated RBC % (auto) 2.8 RBC Morphology Unremarkable Sodium 136 Potassium 4.9 Chloride 102 Carbon Dioxide 21 Anion Gap 13 H BUN 89 H Creatinine 7.08 H* D Est Cr Clr Drug Dosing 11.8 eGFR 8.03 BUN/Creatinine Ratio 12.6 Glucose 85 Calcium 8.7 Phosphorus 5.6 H Troponin I High Sens 251.7 H* 263.1 H* Tacrolimus Pending PG Care Time/CCT Total # of Minutes Spent Total Time Spent with Patient: Total time spent is greater than 50% in coordination of care (as documented) at patient's floor/unit and/or counseling patient: Coding Level of Care Code 09294 SUB INP/OBS CARE 350MIN Diagnoses Status post kidney transplant Z94.0 Acute kidney injury superimposed on stage 4 chronic kidney disease N17.9; N18.4 Multifocal pneumonia J18.8
--- NOTE | 2025-04-14 11:54 | Hospitalist Progress Note ---
Date of Service April 14, 2025 Assessment & Plan (1) Multifocal pneumonia: (2) Acute on chronic renal insufficiency: (3) Hypomagnesemia: (4) Elevated troponin: Plan Patient is a 64-year-old male with past medical history of warm autoimmune hemolytic anemia, status post renal transplant and FSGS, HFpEF, COPD, A-fib, acute DVT, hypothyroidism. Patient presented due to several days of dyspnea. Patient also noted recent diarrhea and vomiting, now resolved. Patient was found to have multifocal pneumonia R greater than left on CXR, procalcitonin 0.60. Patient was also found to have a questionable UTI and KRISSY with creatinine worsening from 2.86-6.53. #multifocal pneumonia CXR read as multifocal pneumonia. No leukocytosis, VSS. Procalcitonin 0.60. Immunocompromised on current home medication regimen. Zosyn and vancomycin ordered in ED, given renal impairment will transition to cefepime - MRSA swab ordered, will continue MRSA coverage with different agent if positive - blood cultures pending - incentive spirometry - oxygen prn for O2 <94%, wean as tolerated #KRISSY on CKD 4 creatinine increased 2.86-6.53, BUN 85. Suspect clinically dry with acute GI losses and decrease in urine output however deferring further IVF given history of CHF. Mag 1.4, phosphorus 5.7, K4.6, NA 135. UA with 2+ protein. History of FSGS and renal transplant 2009, follows with Dr. Oro, baseline CR previously 1.3-1.4, however uptrending over the past several months. -CT abdomen did not show any evidence of hydronephrosis -Urinalysis was within normal limits -Continue tacrolimus with prednisone, hold MMF, acyclovir -Renal function still not improving -Per nephrology, patient may need dialysis #UTI asymptomatic. UA Cloudy, positive for nitrates, 1+ LE, 6-10 hyaline cast, 1+ bacteria. Covered with Renally dosed cefepime Follow urine cultures #Elevated troponin 274.3 -> 260.9, elevated from baseline. Patient denies any chest pain. EKG with T wave inversions in all leads, similar to previous. Suspect demand ischemia with KRISSY and acute infection above. Trend troponin every 6 hours Monitor on telemetry EKG with chest pain as needed #HFpEF stable, do not suspect acute exacerbation at this time. Most recent echo revealed EF 55 to 59%. With +2 pitting edema to bilateral lower extremities on admission, weight stable. 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 Gonsalez, requires frequent blood transfusions. Hgb currently stable. Holding acyclovir with acute renal impairment Continue danazol, iron supplement, and folic acid #Permanent A-fibcontinue Eliquis and metoprolol #GERD- continue Protonix #Gout- continue Allopurinol #Hypothyroidism- continue Levothyroxine. TSH 12.115, free T40.76. Recommend repeating when not acutely ill. VTE ppx: continue home Eliquis Dispo: PCU Admission and Anticipated Discharge Date Admission Date: April 13, 2025 Subjective Patient seen and examined this morning, not in any distress, is concerned about his renal function Review of Systems Review of Systems: All systems reviewed are negative, apart from the ones contained in the history. Physical Exam Physical Exam: The patient is awake, alert and oriented 3, well developed and well nourished, normocephalic and atraumatic, lying in bed and in no acute distress. HEENT--PERRL, EOMI, mucous membranes and oropharynx mildly dry Neck--supple. No JVD. No bruits. Thyroid normal, trachea midline, no adenopathy. Heart--normal S1 and S2. No murmurs, rubs or gallops. Lungs--clear bilaterally, no respiratory distress, no accessory muscle use. Abdomen--normal bowel sounds and soft. Extremities--no cyanosis or clubbing. No edema. Dermatologic--normal skin turgor, normal color, no abnormal lymph nodes, no rash. Neurologic--cranial nerves II through XII grossly intact. Rheumatologic--normal range of motion. Psychiatric--normal affect. Results & Data Results & Data Vital Signs (Past 12 Hours) Vital Signs Temp Pulse Pulse Pulse Resp BP BP 04/14/25 11:01 97.5 F L 78 19 93/67 L 04/14/25 11:00 84 04/14/25 08:00 98.1 F 85 18 105/65 04/14/25 03:40 97.5 F L 98 H 16 99/65 L Pulse Ox O2 Del Method 07/28/25 11:01 94 Room Air 04/14/25 11:00 04/14/25 08:00 97 Room Air 04/14/25 03:40 98 Room Air PG Care Time/CCT Total # of Minutes Spent Total Time Spent with Patient: Total time spent is greater than 50% in coordination of care (as documented) at patient's floor/unit and/or counseling patient: Coding Level of Care Code 80949 SUB INP/OBS CARE 2/35MIN Diagnoses Multifocal pneumonia J18.8 Acute on chronic renal insufficiency N28.9; N18.9 Hypomagnesemia E83.42 Elevated troponin R79.89 Time Spent (min) 35
[2025-04-15 06:29] LABS: Hematocrit (blood only) 26.7 % (42.0-52.0); Hemoglobin 8.3 g/dl (14.0-18.0); Mean Corpuscular Hemoglobin 32.7 pg (25.0-34.0); Mean Corpuscular Volume 105.1 fL (80.0-100.0); Platelet Count 132 K/uL (130-400); RDW Standard Deviation 59.8 fL (36.4-46.3); Red Blood Count 2.54 M/uL (4.70-6.10); White Blood Count 8.32 K/ul (4.8-10.8)
[2025-04-15 06:45] LABS: Alanine Aminotransferase 16.0 U/L (7-52); Albumin Globulin Ratio 1.6 (0.9-2); Alkaline Phosphatase 74.0 U/L (34-104); Anion Gap 12.0 (3-11); Bilirubin,Total 1.6 mg/dl (0.2-1.0); Blood Urea Nitrogen 93.0 mg/dl (6-23); Calcium 8.6 mg/dl (8.6-10.3); Carbon Dioxide 22.0 mmol/L (21-32); Chloride 100.0 mmol/L (98-107); Creatinine Clr Calc Pharmacy 10.6 ml/min; Globulin 2.3 gm/dl (2.5-4.0); Glucose 80.0 mg/dl (70-99(Fasting)); Potassium 5.2 mmol/L (3.5-5.1); Sodium 134.0 mmol/L (136-145); Total Protein 5.9 gm/dl (6.0-8.3)
--- NOTE | 2025-04-15 07:37 | XRay Report ---
EXAM: XR chest 1V portable CLINICAL HISTORY: pneumonia TECHNIQUE: An X-ray image of the chest is obtained in AP projection. COMPARISON: 04/12/2025. FINDINGS: Pulmonary Parenchyma: Patchy discrete opacities were noted in the right lung perihelium, upper zone, and lower zone. Interval regression of the right pleural effusion. No evidence of consolidation, collapse, or focal opacities in the left lung. Heart and Mediastinum: Moderate cardiomegaly. No mediastinal widening or masses. No hilar or mediastinal lymphadenopathy. Bony Thorax: Bony thorax appears intact without fractures or deformities. Soft Tissues: Soft tissues overlying the chest wall are unremarkable. IMPRESSION: 1. Patchy discrete opacities were noted in the right lung perihelium, upper zone, and lower zone. There is a mild interval improvement more pronunced at lower right zone in comparison with 04/12/2025. 2. Interval improvement of the right pleural effusion. Electronically signed by Roosevelt Rojas 04-15-2025 07:36 AM
--- NOTE | 2025-04-15 09:02 | Nephrology Progress Note ---
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 Post transplant Cr was 1.4. Patient has suffered recurrent episodes of KRISSY. Serum Cr has progressively risen to a new baseline of 2.5-2.8 w/ EGFR 24 cc/min * Outpatient immunosuppressive regimen has been MMF 250 mg 2 tablets po BID, prednisone 5 mg po qAM, tacrolimus 0.5 mg po BID (2) Acute kidney injury superimposed on stage 4 chronic kidney disease: Plan: * 04/13/[address] without contrast: no hydro of LURT * Urinalysis negative for granular casts * Continue tacrolimus and prednisone * Will resume MMF * 04/14/25 trough tacrolimus is pending * Monitor BMP, UO * Laboratory results from this morning were reviewed with Mr. Mandel. Indications/benefits/alternatives to BUSINESS PROGRAMMER were reviewed in detail. Patient understands that dialysis may become necessary if his kidney function fails to improve with antibiotic and supportive care. Will provide medical management of hyperkalemia today and ask HD RN to assess AVF for use. Will recheck BMP in am (3) Multifocal pneumonia: Plan: * On empiric Cefepime. Recommend consultation w/ pharmacy for dose adjustment in the setting of KRISSY. Monitor closely for neurotoxicity * Blood and urine cultures are no growth to date. Admission and Anticipated Discharge Date Admission Date: April 13, 2025 Subjective Mr. Mandel was evaluated in his hospital room this morning. He reported that his breathing was subjectively improved. He denied productive cough. Review of Systems Constitutional: + weakness; no fever Eyes: no problem reported Ear, Nose, Mouth, Throat: no problem reported Respiratory: + dyspnea on exertion; no hemoptysis, no pain with cough and no sputum production Cardiovascular: no chest pain Gastrointestinal: no abdominal pain, no nausea, no vomiting and no diarrhea/loose stools Genitourinary: + problem reported (no pain overlying tr ansplant allograft); no dysuria or no hematuria Musculoskeletal: + myalgia Integumentary: no rash Physical Exam Physical Exam: Chronically ill appearing Eyes: PERRL, conjunctivae normal, anicteric sclerae ENMT: external ear and nose normal, oropharynx normal Neck: trachea midline, no thyromegaly Respiratory: normal respiratory effort Auscultation: + rales Cardiovascular: Rate/Rhythm: regular rate and regular rhythm Extremities: + edema (1+ pretibial pitting edema) L forearm AVF + thrill Gastrointestinal (Abdomen): normal bowel sounds, soft, nontender, no hepatosplenomegaly Skin: no rashes, warm and dry Neurologic: awake; not confused Results & Data Vital Signs (Past 12 Hours) Vital Signs Temp Pulse Pulse Resp BP Pulse Ox Pulse Ox 04/15/25 08:02 36.5 C 83 19 107/75 94 04/15/25 04:00 98 04/15/25 03:12 36.5 C 82 18 103/69 98 04/14/25 23:39 36.3 C L 80 18 100/67 97 04/14/25 23:28 81 04/14/25 23:11 O2 Del Method O2 Del Method 04/15/25 08:02 Room Air 04/15/25 04:00 Room Air 04/15/25 03:12 Room Air 04/14/25 23:39 Room Air 04/14/25 23:28 04/14/25 23:11 Room Air Laboratory Results Laboratory Results - last 24 hr 04/15/25 05:27 WBC 8.32 RBC 2.54 L Hgb 8.3 L Hct 26.7 L MCV 105.1 H MCH 32.7 MCHC 31.1 L RDW Std Deviation 59.8 H RDW Coeff of Jaye 15.8 H Plt Count 132 MPV 10.8 Absolute Nucleated RBC 0.17 H Nucleated RBC % (auto) 2.0 Sodium 134 L Potassium 5.2 H Chloride 100 Carbon Dioxide 22 Anion Gap 12 H BUN 93 H Creatinine 7.65 H* D Est Cr Clr Drug Dosing 10.6 eGFR 7.31 BUN/Creatinine Ratio 12.2 Glucose 80 Calcium 8.6 Total Bilirubin 1.6 H AST 33 ALT 16 Alkaline Phosphatase 74 Total Protein 5.9 L Albumin 3.6 Globulin 2.3 L Albumin/Globulin Ratio 1.6 PG Care Time/CCT Total # of Minutes Spent Total Time Spent with Patient: Total time spent is greater than 50% in coordination of care (as documented) at patient's floor/unit and/or counseling patient: Coding Level of Care Code 13681 SUB INP/OBS CARE 3/50MIN Diagnoses Status post kidney transplant Z94.0 Acute kidney injury superimposed on stage 4 chronic kidney disease N17.9; N18.4 Multifocal pneumonia J18.8
[2025-04-15] MEDS: MYCOPHENOLATE MOFETIL 250 MG CAP PO SCH (12:45)
[2025-04-15] MEDS: SODIUM ZIRCONIUM CYCLOSILICATE 10 GM PACKET PO SCH (12:45)
--- NOTE | 2025-04-15 12:56 | Hospitalist Progress Note ---
Date of Service April 15, 2025 Assessment & Plan (1) Multifocal pneumonia: (2) Acute on chronic renal insufficiency: (3) Hypomagnesemia: (4) Elevated troponin: Plan Patient is a 64-year-old male with past medical history of warm autoimmune hemolytic anemia, status post renal transplant and FSGS, HFpEF, COPD, A-fib, acute DVT, hypothyroidism. Patient presented due to several days of dyspnea. Patient also noted recent diarrhea and vomiting, now resolved. Patient was found to have multifocal pneumonia R greater than left on CXR, procalcitonin 0.60. Patient was also found to have a questionable UTI and KRISSY with creatinine worsening from 2.86-6.53. #multifocal pneumonia -Possible gram negative pna in the setting of immune compromise CXR read as multifocal pneumonia. No leukocytosis, VSS. Procalcitonin 0.60. Immunocompromised on current home medication regimen. Zosyn and vancomycin ordered in ED, given renal impairment will transition to cefepime - MRSA swab ordered, will continue MRSA coverage with different agent if positive - blood cultures pending - incentive spirometry - oxygen prn for O2 <94%, wean as tolerated #KRISSY on CKD 4 creatinine increased 2.86-6.53, BUN 85. Suspect clinically dry with acute GI losses and decrease in urine output however deferring further IVF given history of CHF. Mag 1.4, phosphorus 5.7, K4.6, NA 135. UA with 2+ protein. History of FSGS and renal transplant 2009, follows with Dr. Oro, baseline CR previously 1.3-1.4, however uptrending over the past several months. -CT abdomen did not show any evidence of hydronephrosis -Urinalysis was within normal limits -Continue tacrolimus with prednisone, hold MMF, acyclovir -Renal function still not improving -Per nephrology, patient may need dialysis #UTI asymptomatic. UA Cloudy, positive for nitrates, 1+ LE, 6-10 hyaline cast, 1+ bacteria. Covered with Renally dosed cefepime Follow urine cultures #Elevated troponin 274.3 -> 260.9, elevated from baseline. Patient denies any chest pain. EKG with T wave inversions in all leads, similar to previous. Suspect demand ischemia with KRISSY and acute infection above. Trend troponin every 6 hours Monitor on telemetry EKG with chest pain as needed #HFpEF stable, do not suspect acute exacerbation at this time. Most recent echo revealed EF 55 to 59%. With +2 pitting edema to bilateral lower extremities on admission, weight stable. 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 Gonsalez, requires frequent blood transfusions. Hgb currently stable. Holding acyclovir with acute renal impairment Continue danazol, iron supplement, and folic acid #Permanent A-fibcontinue Eliquis and metoprolol #GERD- continue Protonix #Gout- continue Allopurinol #Hypothyroidism- continue Levothyroxine. TSH 12.115, free T40.76. Recommend repeating when not acutely ill. VTE ppx: continue home Eliquis Dispo: PCU Admission and Anticipated Discharge Date Admission Date: April 13, 2025 Subjective patient seen and examined, says his breathing has improved Review of Systems Review of Systems: All systems reviewed are negative, apart from the ones contained in the history. Physical Exam Physical Exam: The patient is awake, alert and oriented 3, well developed and well nourished, normocephalic and atraumatic, lying in bed and in no acute distress. HEENT--PERRL, EOMI, mucous membranes and oropharynx mildly dry Neck--supple. No JVD. No bruits. Thyroid normal, trachea midline, no adenopathy. Heart--normal S1 and S2. No murmurs, rubs or gallops. Lungs--clear bilaterally, no respiratory distress, no accessory muscle use. Abdomen--normal bowel sounds and soft. Extremities--no cyanosis or clubbing. No edema. Dermatologic--normal skin turgor, normal color, no abnormal lymph nodes, no rash. Neurologic--cranial nerves II through XII grossly intact. Rheumatologic--normal range of motion. Psychiatric--normal affect. Results & Data Results & Data Vital Signs (Past 12 Hours) Vital Signs Temp Pulse Pulse Resp BP Pulse Ox Pulse Ox 04/15/25 11:11 04/15/25 10:54 97.3 F L 79 19 97/68 L 97 04/15/25 09:43 75 04/15/25 08:02 97.7 F 83 19 107/75 94 04/15/25 04:00 98 04/15/25 03:12 97.7 F 82 18 103/69 98 O2 Del Method O2 Del Method 04/15/25 11:11 Room Air 04/15/25 10:54 Room Air 04/15/25 09:43 04/15/25 08:02 Room Air 04/15/25 04:00 Room Air 04/15/25 03:12 Room Air PG Care Time/CCT Total # of Minutes Spent Total Time Spent with Patient: Total time spent is greater than 50% in coordination of care (as documented) at patient's floor/unit and/or counseling patient: Coding Level of Care Code 87262 SUB INP/OBS CARE 2/35MIN Diagnoses Multifocal pneumonia J18.8 Acute on chronic renal insufficiency N28.9; N18.9 Hypomagnesemia E83.42 Elevated troponin R79.89 Time Spent (min) 35
[2025-04-15] MEDS ORDERED: Nursing to Pharmacy Communication SCH (13:00)
[2025-04-15 14:47] LABS: Anion Gap 12.0 (3-11); Blood Urea Nitrogen 95.0 mg/dl (6-23); Calcium 8.6 mg/dl (8.6-10.3); Carbon Dioxide 21.0 mmol/L (21-32); Chloride 100.0 mmol/L (98-107); Creatinine Clr Calc Pharmacy 10.7 ml/min; Glucose 100.0 mg/dl (70-99(Fasting)); Potassium 4.8 mmol/L (3.5-5.1); Sodium 133.0 mmol/L (136-145)
[2025-04-15] MEDS: MELATONIN 3 MG TAB PO PRN (21:50)
[2025-04-16 08:16] LABS: Anion Gap 12.0 (3-11); Calcium 8.5 mg/dl (8.6-10.3); Carbon Dioxide 20.0 mmol/L (21-32); Chloride 100.0 mmol/L (98-107); Potassium 4.8 mmol/L (3.5-5.1); Sodium 132.0 mmol/L (136-145)
[2025-04-16 08:25] LABS: Blood Urea Nitrogen 92.0 mg/dl (6-23); Creatinine Clr Calc Pharmacy 10.4 ml/min; Glucose 86.0 mg/dl (70-99(Fasting))
[2025-04-16] MEDS ORDERED: SODIUM CHLORIDE 0.9% 1,000 ML IV PRN (08:58)
--- NOTE | 2025-04-16 09:02 | Nephrology Progress Note ---
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 Post transplant Cr was 1.4. Patient has suffered recurrent episodes of KRISSY. Serum Cr has progressively risen to a new baseline of 2.5-2.8 w/ EGFR 24 cc/min * Outpatient immunosuppressive regimen has been MMF 250 mg 2 tablets po BID, prednisone 5 mg po qAM, tacrolimus 0.5 mg po BID (2) Acute kidney injury superimposed on stage 4 chronic kidney disease: Plan: * 04/13/[address] without contrast: no hydro of LURT * Urinalysis negative for granular casts * Continue tacrolimus, MMF and prednisone * 04/14/25 trough tacrolimus is pending * Monitor daily BMP, UO * Patient remains oliguric and is now 3.1 L vol + with early uremic symptoms. He is agreeable to using AVF as vascular access and starting back on HD. Will provide HD today. Orders have been entered into EMR and HD RN notified (3) Multifocal pneumonia: Plan: * On empiric Cefepime. Recommend consultation w/ pharmacy for dose adjustment in the setting of KRISSY. Monitor closely for neurotoxicity * Blood and urine cultures are no growth to date * 04/15/25 CXR - Mild interval improvement in lower R lung. Still has patchy opaicities in R perihilum and upper lung zone Admission and Anticipated Discharge Date Admission Date: April 13, 2025 Subjective Mr. Mandel was evaluated in his hospital room this morning. He reports nausea but denies fever or dyspnea. RA SaO2 95% Review of Systems Constitutional: + weakness; no fever Eyes: no problem reported Ear, Nose, Mouth, Throat: no problem reported Respiratory: + dyspnea on exertion; no hemoptysis, no pain with cough and no sputum production Cardiovascular: no chest pain Gastrointestinal: no abdominal pain, no nausea, no vomiting and no diarrhea/loose stools Genitourinary: + problem reported (no pain overlying tr ansplant allograft); no dysuria or no hematuria Musculoskeletal: + myalgia Integumentary: no rash Physical Exam Physical Exam: Chronically ill appearing Eyes: PERRL, conjunctivae normal, anicteric sclerae ENMT: external ear and nose normal, oropharynx normal Neck: trachea midline, no thyromegaly Respiratory: normal respiratory effort Auscultation: + rales Cardiovascular: Rate/Rhythm: regular rate and regular rhythm Extremities: + edema (1+ pretibial pitting edema) Gastrointestinal (Abdomen): normal bowel sounds, soft, nontender, no hepatosplenomegaly Musculoskeletal: Extremities: + hand abnormality (sausage shaped fingers R hand, tophi L middle finger) Skin: no rashes, warm and dry Neurologic: awake; not confused Results & Data Vital Signs (Past 12 Hours) Vital Signs Temp Pulse Pulse Resp BP Pulse Ox O2 Del Method 04/16/25 08:17 36.8 C 82 18 96/68 L 95 Room Air 04/16/25 05:39 81 04/16/25 04:00 04/16/25 03:20 36.3 C L 74 20 105/72 95 Room Air 04/15/25 23:03 36.3 C L 80 18 101/68 95 Room Air 04/15/25 22:10 76 04/15/25 21:57 Room Air O2 Del Method 04/16/25 08:17 04/16/25 05:39 04/16/25 04:00 Room Air 04/16/25 03:20 04/15/25 23:03 04/15/25 22:10 04/15/25 21:57 Laboratory Results Laboratory Results - last 24 hr 04/15/25 04/16/25 13:49 07:19 Sodium 133 L 132 L Potassium 4.8 4.8 Chloride 100 100 Carbon Dioxide 21 20 L Anion Gap 12 H 12 H BUN 95 H 92 H Creatinine 7.57 H* 7.78 H* Est Cr Clr Drug Dosing 10.7 10.4 eGFR 7.41 7.17 BUN/Creatinine Ratio 12.5 11.8 Glucose 100 H 86 Calcium 8.6 8.5 L PG Care Time/CCT Total # of Minutes Spent Total Time Spent with Patient: Total time spent is greater than 50% in coordination of care (as documented) at patient's floor/unit and/or counseling patient: Coding Level of Care Code 28862 SUB INP/OBS CARE 3/50MIN Diagnoses Status post kidney transplant Z94.0 Acute kidney injury superimposed on stage 4 chronic kidney disease N17.9; N18.4 Multifocal pneumonia J18.8
--- NOTE | 2025-04-16 10:28 | Hospitalist Progress Note ---
Date of Service April 16, 2025 Assessment & Plan (1) Multifocal pneumonia: (2) Acute on chronic renal insufficiency: (3) Hypomagnesemia: (4) Elevated troponin: Plan Patient is a 64-year-old male with past medical history of warm autoimmune hemolytic anemia, status post renal transplant and FSGS, HFpEF, COPD, A-fib, acute DVT, hypothyroidism. Patient presented due to several days of dyspnea. Patient also noted recent diarrhea and vomiting, now resolved. Patient was found to have multifocal pneumonia R greater than left on CXR, procalcitonin 0.60. Patient was also found to have a questionable UTI and KRISSY with creatinine worsening from 2.86-6.53. #multifocal pneumonia -Possible gram negative pna in the setting of immune compromise CXR read as multifocal pneumonia. No leukocytosis, VSS. Procalcitonin 0.60. Immunocompromised on current home medication regimen. Zosyn and vancomycin ordered in ED, given renal impairment will transition to cefepime - MRSA swab ordered, will continue MRSA coverage with different agent if positive - blood cultures shows no growth in 48 hrs -De escalate antibiotics to Oral prior to discharge - incentive spirometry - oxygen prn for O2 <94%, wean as tolerated #KRISSY on CKD 4 creatinine increased 2.86-6.53, BUN 85. Suspect clinically dry with acute GI losses and decrease in urine output however deferring further IVF given history of CHF. Mag 1.4, phosphorus 5.7, K4.6, NA 135. UA with 2+ protein. History of FSGS and renal transplant 2009, follows with Dr. Oro, baseline CR previously 1.3-1.4, however uptrending over the past several months. -CT abdomen did not show any evidence of hydronephrosis -Urinalysis was within normal limits -Continue tacrolimus with prednisone, hold MMF, acyclovir -Renal function still not improving -Per nephrology, patient may need dialysis #UTI asymptomatic. UA Cloudy, positive for nitrates, 1+ LE, 6-10 hyaline cast, 1+ bacteria. Covered with Renally dosed cefepime Urine cultures show no growth #Elevated troponin 274.3 -> 260.9, elevated from baseline. Patient denies any chest pain. EKG with T wave inversions in all leads, similar to previous. Suspect demand ischemia with KRISSY and acute infection above. Trend troponin every 6 hours Monitor on telemetry EKG with chest pain as needed #HFpEF stable, do not suspect acute exacerbation at this time. Most recent echo revealed EF 55 to 59%. With +2 pitting edema to bilateral lower extremities on admission, weight stable. 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 Gonsalez, requires frequent blood transfusions. Hgb currently stable. Holding acyclovir with acute renal impairment Continue danazol, iron supplement, and folic acid #Permanent A-fibcontinue Eliquis and metoprolol #GERD- continue Protonix #Gout- continue Allopurinol #Hypothyroidism- continue Levothyroxine. TSH 12.115, free T40.76. Recommend repeating when not acutely ill. VTE ppx: continue home Eliquis Dispo: Final recs from Nephrology regarding dialysis Admission and Anticipated Discharge Date Admission Date: April 13, 2025 Subjective patient seen and examined, says his breathing has improved Physical Exam Physical Exam: The patient is awake, alert and oriented 3, well developed and well nourished, normocephalic and atraumatic, lying in bed and in no acute distress. HEENT--PERRL, EOMI, mucous membranes and oropharynx mildly dry Neck--supple. No JVD. No bruits. Thyroid normal, trachea midline, no adenopathy. Heart--normal S1 and S2. No murmurs, rubs or gallops. Lungs--clear bilaterally, no respiratory distress, no accessory muscle use. Abdomen--normal bowel sounds and soft. Extremities--no cyanosis or clubbing. No edema. Dermatologic--normal skin turgor, normal color, no abnormal lymph nodes, no rash. Neurologic--cranial nerves II through XII grossly intact. Rheumatologic--normal range of motion. Psychiatric--normal affect. Results & Data Results & Data Vital Signs (Past 12 Hours) Vital Signs Temp Pulse Pulse Resp BP Pulse Ox O2 Del Method 04/16/25 08:17 98.2 F 82 18 96/68 L 95 Room Air 04/16/25 05:39 81 04/16/25 04:00 04/16/25 03:20 97.3 F L 74 20 105/72 95 Room Air 04/15/25 23:03 97.3 F L 80 18 101/68 95 Room Air O2 Del Method 04/16/25 08:17 04/16/25 05:39 04/16/25 04:00 Room Air 04/16/25 03:20 04/15/25 23:03 PG Care Time/CCT Total # of Minutes Spent Total Time Spent with Patient: Total time spent is greater than 50% in coordination of care (as documented) at patient's floor/unit and/or counseling patient: Coding Level of Care Code 97121 SUB INP/OBS CARE 2/35MIN Diagnoses Multifocal pneumonia J18.8 Acute on chronic renal insufficiency N28.9; N18.9 Hypomagnesemia E83.42 Elevated troponin R79.89 Time Spent (min) 35
[2025-04-16] MEDS: EPOETIN ALFA 10,000 UNITS/ML VIAL IV ONE (12:51)
[2025-04-16 18:13] LABS: Hep B Surface Ag with confirm Negative (Negative)
[2025-04-16] MEDS: CEFEPIME 1000MG 1,000 MG/10 ML SYR IV SCH (20:11)
[2025-04-16] MEDS: ALBUMIN 25% 12.5 GM/50 ML VIAL IV ONE (20:18)
[2025-04-17 06:23] LABS: Hematocrit (blood only) 24.9 % (42.0-52.0); Hemoglobin 7.8 g/dl (14.0-18.0); Mean Corpuscular Hemoglobin 33.2 pg (25.0-34.0); Mean Corpuscular Volume 106.0 fL (80.0-100.0); Platelet Count 120 K/uL (130-400); RDW Standard Deviation 61.2 fL (36.4-46.3); Red Blood Count 2.35 M/uL (4.70-6.10); White Blood Count 12.79 K/ul (4.8-10.8)
[2025-04-17 06:45] LABS: Anion Gap 11.0 (3-11); Blood Urea Nitrogen 64.0 mg/dl (6-23); Calcium 8.6 mg/dl (8.6-10.3); Carbon Dioxide 22.0 mmol/L (21-32); Chloride 102.0 mmol/L (98-107); Creatinine Clr Calc Pharmacy 13.3 ml/min; Glucose 89.0 mg/dl (70-99(Fasting)); Potassium 4.3 mmol/L (3.5-5.1); Sodium 135.0 mmol/L (136-145)
--- NOTE | 2025-04-17 08:44 | Nephrology Progress Note ---
Date of Service April 17, 2025 Assessment & Plan (1) Status post kidney transplant: Plan: * s/p LURT due to FSGS 02/25 at [facility]. Post transplant Cr was 1.4. Patient has suffered recurrent episodes of KRISSY. Serum Cr has progressively risen to a new baseline of 2.5-2.8 w/ EGFR 24 cc/min * Outpatient immunosuppressive regimen has been MMF 250 mg 2 tablets po BID, prednisone 5 mg po qAM, tacrolimus 0.5 mg po BID (2) Acute kidney injury superimposed on stage 4 chronic kidney disease: Plan: * 04/13/[address] without contrast: no hydro of LURT * Urinalysis negative for granular casts * Continue tacrolimus, MMF and prednisone * 04/14/25 trough tacrolimus 10.5 * Patient remains oliguric. HD provided yesterday for 1L UF. No complications * Monitor daily BMP, UO (3) Multifocal pneumonia: Plan: * On empiric Cefepime. Recommend consultation w/ pharmacy for dose adjustment in the setting of KRISSY. Monitor closely for neurotoxicity * Blood and urine cultures are no growth to date * 04/15/25 CXR - Mild interval improvement in lower R lung. Still has patchy opaicities in R perihilum and upper lung zone Admission and Anticipated Discharge Date Admission Date: April 13, 2025 Subjective Mr. Mandel was evaluated in his hospital room this morning. He reports nausea but denies fever or dyspnea. RA SaO2 92%. Dialysis was performed yesterday using L arm AVF. 1L UF obtained. Review of Systems Constitutional: + weakness; no fever Eyes: no problem reported Ear, Nose, Mouth, Throat: no problem reported Respiratory: + dyspnea on exertion; no hemoptysis, no pain with cough and no sputum production Cardiovascular: no chest pain Gastrointestinal: no abdominal pain, no nausea, no vomiting and no diarrhea/loose stools Genitourinary: + problem reported (no pain overlying tr ansplant allograft); no dysuria or no hematuria Musculoskeletal: + myalgia Integumentary: no rash Physical Exam Physical Exam: Chronically ill appearing Eyes: PERRL, conjunctivae normal, anicteric sclerae ENMT: external ear and nose normal, oropharynx normal Neck: trachea midline, no thyromegaly Respiratory: normal respiratory effort Auscultation: + rales Cardiovascular: Rate/Rhythm: regular rate and regular rhythm Extremities: + edema (1+ pretibial pitting edema) R arm AVF + bruit Gastrointestinal (Abdomen): normal bowel sounds, soft, nontender, no hepatosplenomegaly Musculoskeletal: Extremities: + hand abnormality Skin: no rashes, warm and dry Neurologic: awake; not confused Results & Data Vital Signs (Past 12 Hours) Vital Signs Temp Pulse Pulse Pulse Resp BP Pulse Ox 04/17/25 07:00 36.7 C 77 18 90/50 L 92 04/17/25 04:00 04/17/25 03:00 36.4 C L 72 16 90/59 L 94 04/16/25 22:39 36.5 C 70 16 87/54 L 92 04/16/25 21:46 82 Pulse Ox O2 Del Method O2 Del Method 04/17/25 07:00 Room Air 04/17/25 04:00 95 Room Air 04/17/25 03:00 Room Air 04/16/25 22:39 Room Air 04/16/25 21:46 Laboratory Results Laboratory Results - last 24 hr 04/14/25 04/16/25 04/17/25 05:43 17:11 05:41 WBC 12.79 H RBC 2.35 L Hgb 7.8 L Hct 24.9 L MCV 106.0 H MCH 33.2 MCHC 31.3 L RDW Std Deviation 61.2 H RDW Coeff of Jaye 16.4 H Plt Count 120 L MPV 11.4 Absolute Nucleated RBC 0.19 H Nucleated RBC % (auto) 1.5 Sodium 135 L Potassium 4.3 Chloride 102 Carbon Dioxide 22 Anion Gap 11 BUN 64 H D Creatinine 6.07 H* D Est Cr Clr Drug Dosing 13.3 eGFR 9.65 BUN/Creatinine Ratio 10.5 Glucose 89 Calcium 8.6 Tacrolimus 10.5 Hep Bs Antigen Negative Hep Bs Antibody Immune Hep Bs Antibody, Quant 28.00 Hep B Core IgM Ab Pending PG Care Time/CCT Total # of Minutes Spent Total Time Spent with Patient: Total time spent is greater than 50% in coordination of care (as documented) at patient's floor/unit and/or counseling patient: Coding Level of Care Code 91892 SUB INP/OBS CARE 3/50MIN Diagnoses Status post kidney transplant Z94.0 Acute kidney injury superimposed on stage 4 chronic kidney disease N17.9; N18.4 Multifocal pneumonia J18.8
[2025-04-17 10:28] LABS: Hematocrit (blood only) 28.5 % (42.0-52.0); Hemoglobin 8.8 g/dl (14.0-18.0); Mean Corpuscular Hemoglobin 33.1 pg (25.0-34.0); Mean Corpuscular Volume 107.1 fL (80.0-100.0); Platelet Count 147 K/uL (130-400); RDW Standard Deviation 61.3 fL (36.4-46.3); Red Blood Count 2.66 M/uL (4.70-6.10); White Blood Count 16.67 K/ul (4.8-10.8)
--- NOTE | 2025-04-17 14:36 | Hospitalist Progress Note ---
Date of Service April 17, 2025 Assessment & Plan (1) Multifocal pneumonia: (2) Acute on chronic renal insufficiency: (3) Hypomagnesemia: (4) Elevated troponin: Plan Patient is a 64-year-old male with past medical history of warm autoimmune hemolytic anemia, status post renal transplant and FSGS, HFpEF, COPD, A-fib, acute DVT, hypothyroidism. Patient presented due to several days of dyspnea. Patient also noted recent diarrhea and vomiting, now resolved. Patient was found to have multifocal pneumonia R greater than left on CXR, procalcitonin 0.60. Patient was also found to have a questionable UTI and KRISSY with creatinine worsening from 2.86-6.53. #multifocal pneumonia he's on zosyn and vancomycin f/u MRSA level -Possible gram negative pna in the setting of immune compromise CXR read as multifocal pneumonia. No leukocytosis, VSS. Procalcitonin 0.60. Immunocompromised on current home medication regimen. - blood cultures shows no growth in 48 hrs -De escalate antibiotics to Oral prior to discharge - #KRISSY on CKD 4, renal transplant in 2009 been having anorexia. adding ensure, bladder scan creatinine increased 2.86-6.53, BUN 85. Suspect clinically dry with acute GI losses and decrease in urine output however deferring further IVF given history of CHF. Mag 1.4, phosphorus 5.7, K4.6, NA 135. UA with 2+ protein. History of FSGS and renal transplant 2009, follows with Dr. Oro, baseline CR previously 1.3-1.4, however uptrending over the past several months. -CT abdomen did not show any evidence of hydronephrosis -Urinalysis was within normal limits -Continue tacrolimus with prednisone, hold MMF, acyclovir -Renal function still not improving -Per nephrology, patient may need dialysis #UTI asymptomatic. UA Cloudy, positive for nitrates, 1+ LE, 6-10 hyaline cast, 1+ bacteria. Covered with Renally dosed cefepime Urine cultures show no growth #Elevated troponin 274.3 -> 260.9, elevated from baseline. Patient denies any chest pain. EKG with T wave inversions in all leads, similar to previous. Suspect demand ischemia with KRISSY and acute infection above. no chest pain #HFpEF stable, do not suspect acute exacerbation at this time. echo revealed EF 55 to 59%. With +2 pitting edema to bilateral lower extremities on admission, weight stable. 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 Gonsalez, requires frequent blood transfusions. Hgb currently stable. Holding acyclovir with acute renal impairment Continue danazol, iron supplement, and folic acid #Permanent A-fibcontinue Eliquis and metoprolol #GERD- continue Protonix #Gout- continue Allopurinol #Hypothyroidism- continue Levothyroxine. TSH 12.115, free T40.76. Recommend repeating when not acutely ill. VTE ppx: continue home Eliquis Dispo: Final recs from Nephrology regarding dialysis Admission and Anticipated Discharge Date Admission Date: April 13, 2025 Subjective no worsening shortness of breath his KRISSY persist. he been having limited oral intake for his PNA, no worsening breathing, congestion. Physical Exam Physical Exam: VITALS: Reviewed. WEIGHT/BMI reviewed. GEN: Healthy appearing, well-developed, NAD. -Head: NC/AT; -Eyes: PERRL, EOMI. No discharge or redn ess; -Ears: External ears are normal. Normal TMs. -Nose: Normal nares. -Mouth and throat: MMM. Normal gums, muc migue, palate,. Good dentition. NECK: Supple, with no masses. CV: RRR, no m/r/g. LUNGS: CTAB, no w/r/c. ABD: Soft, NT/ND, NBS, no masses or organomegaly. SKIN: Warm, well perfused. No skin rashes or abnormal lesions. MSK: no edema EXT: No clubbing, cyanosis, or edema. Results & Data Results & Data Vital Signs (Past 12 Hours) Vital Signs Temp Pulse Pulse Pulse Resp BP Pulse Ox 04/17/25 11:53 36.9 C 88 19 90/62 L 92 04/17/25 11:28 72 04/17/25 10:38 04/17/25 07:00 36.7 C 77 18 90/50 L 92 04/17/25 04:00 04/17/25 03:00 36.4 C L 72 16 90/59 L 94 Pulse Ox O2 Del Method O2 Del Method 04/17/25 11:53 Room Air 04/17/25 11:28 04/17/25 10:38 Room Air 04/17/25 07:00 Room Air 04/17/25 04:00 95 Room Air 04/17/25 03:00 Room Air Laboratory Results Laboratory Results - last 72 hr 04/14/25 04/15/25 04/15/25 05:43 05:27 13:49 WBC 8.32 RBC 2.54 L Hgb 8.3 L Hct 26.7 L MCV 105.1 H MCH 32.7 MCHC 31.1 L RDW Std Deviation 59.8 H RDW Coeff of Jaye 15.8 H Plt Count 132 MPV 10.8 Absolute Nucleated RBC 0.17 H Nucleated RBC % (auto) 2.0 Sodium 134 L 133 L Potassium 5.2 H 4.8 Chloride 100 100 Carbon Dioxide 22 21 Anion Gap 12 H 12 H BUN 93 H 95 H Creatinine 7.65 H* D 7.57 H* Est Cr Clr Drug Dosing 10.6 10.7 eGFR 7.31 7.41 BUN/Creatinine Ratio 12.2 12.5 Glucose 80 100 H Calcium 8.6 8.6 Total Bilirubin 1.6 H AST 33 ALT 16 Alkaline Phosphatase 74 Total Protein 5.9 L Albumin 3.6 Globulin 2.3 L Albumin/Globulin Ratio 1.6 Tacrolimus 10.5 Hep Bs Antigen Hep Bs Antibody Hep Bs Antibody, Quant 04/16/25 04/16/25 04/17/25 07:19 17:11 05:41 WBC 12.79 H RBC 2.35 L Hgb 7.8 L Hct 24.9 L MCV 106.0 H MCH 33.2 MCHC 31.3 L RDW Std Deviation 61.2 H RDW Coeff of Jaye 16.4 H Plt Count 120 L MPV 11.4 Absolute Nucleated RBC 0.19 H Nucleated RBC % (auto) 1.5 Sodium 132 L 135 L Potassium 4.8 4.3 Chloride 100 102 Carbon Dioxide 20 L 22 Anion Gap 12 H 11 BUN 92 H 64 H D Creatinine 7.78 H* 6.07 H* D Est Cr Clr Drug Dosing 10.4 13.3 eGFR 7.17 9.65 BUN/Creatinine Ratio 11.8 10.5 Glucose 86 89 Calcium 8.5 L 8.6 Total Bilirubin AST ALT Alkaline Phosphatase Total Protein Albumin Globulin Albumin/Globulin Ratio Tacrolimus Hep Bs Antigen Negative Hep Bs Antibody Immune Hep Bs Antibody, Quant 28.00 04/17/25 09:56 WBC 16.67 H RBC 2.66 L Hgb 8.8 L Hct 28.5 L MCV 107.1 H MCH 33.1 MCHC 30.9 L RDW Std Deviation 61.3 H RDW Coeff of Jaye 17.0 H Plt Count 147 MPV 11.2 Absolute Nucleated RBC 0.44 H Nucleated RBC % (auto) 2.6 Sodium Potassium Chloride Carbon Dioxide Anion Gap BUN Creatinine Est Cr Clr Drug Dosing eGFR BUN/Creatinine Ratio Glucose Calcium Total Bilirubin AST ALT Alkaline Phosphatase Total Protein Albumin Globulin Albumin/Globulin Ratio Tacrolimus Hep Bs Antigen Hep Bs Antibody Hep Bs Antibody, Quant Medications Administered Current Inpatient Medications Acetaminophen (Acetaminophen 325 Mg Tab) 650 mg PO Q4H PRN PRN Reason: Pain or Fever Stop: 05/13/25 03:52 Albuterol (Albuterol Hfa 8 Gm Inhaler) 2 puffs INH Q6H PRN PRN Reason: shortness of breath or wheezing Stop: 05/13/25 03:52 Allopurinol (Allopurinol 300 Mg Tab) 300 mg PO DAILY [facility] Stop: 05/13/25 08:59 Last Admin: 04/17/25 08:38 Dose: 300 mg Apixaban (Apixaban 5 Mg Tablet) 5 mg PO BID [facility] Stop: 05/13/25 08:59 Last Admin: 04/17/25 08:38 Dose: 5 mg Aspirin (Aspirin 81 Mg Ectab) 81 mg PO DAILY ESTEFANI Stop: 05/13/25 08:59 Last Admin: 04/17/25 08:38 Dose: 81 mg Ferrous Sulfate (Ferrous Sulfate 325 Mg Tab) 325 mg PO BID17 [facility] Stop: 05/13/25 08:59 Last Admin: 04/17/25 08:38 Dose: 325 mg Folic Acid (Folic Acid 1 Mg Tab) 1 mg PO BID ESTEFANI Stop: 05/13/25 08:59 Last Admin: 04/17/25 08:38 Dose: 1 mg Cefepime HCl (Maxipime 2000mg) 1,000 mg in 10 mls @ 5 mls/min IV Q24H [facility]; Protocol Stop: 04/18/25 17:59 Last Admin: 04/16/25 20:11 Dose: 5 mls/min Levothyroxine Sodium (Levothyroxine Sodium 125 Mcg Tablet) 125 mcg PO DAILYBB [facility] Stop: 05/13/25 06:29 Last Admin: 04/17/25 05:44 Dose: 125 mcg Magnesium Oxide (Magnesium Oxide 400 Mg Tab) 400 mg PO BID [facility] Stop: 05/13/25 08:59 Last Admin: 04/17/25 08:40 Dose: 400 mg Melatonin (Melatonin 3 Mg Tab) 3 mg PO HS PRN PRN Reason: Sleep Stop: 05/13/25 03:52 Last Admin: 04/15/25 21:50 Dose: 3 mg Metoprolol Succinate (Metoprolol Succ 50mg Ext Rel Tab) 50 mg PO BID ESTEFANI Stop: 05/13/25 08:59 Last Admin: 04/17/25 08:38 Dose: Not Given Mycophenolate Mofetil (Mycophenolate Mofetil 250 Mg Cap) 500 mg PO BID [facility] Stop: 05/15/25 11:14 Last Admin: 04/17/25 08:38 Dose: 500 mg Danazol - Non- Formulary Patient's Own Med 1 each EXT BID [facility] Stop: 05/13/25 20:59 Ondansetron HCl (Ondansetron Inj 2 Mg/Ml 2 Ml Vial) 4 mg IV Q6H PRN PRN Reason: Nausea And Vomiting Stop: 05/13/25 02:13 Last Admin: 04/17/25 09:03 Dose: 4 mg Pantoprazole Sodium (Pantoprazole 40 Mg Tab) 40 mg PO BID [facility] Stop: 05/13/25 08:59 Last Admin: 04/17/25 08:38 Dose: 40 mg Prednisone (Prednisone 5 Mg Tab) 5 mg PO QAM [facility] Stop: 05/13/25 08:59 Last Admin: 04/17/25 08:38 Dose: 5 mg Tacrolimus (Tacrolimus 0.5 Mg Cap) 0.5 mg PO BID [facility] Stop: 05/13/25 20:59 Last Admin: 04/17/25 08:39 Dose: 0.5 mg PG Care Time/CCT Total # of Minutes Spent Total Time Spent with Patient: Total time spent is greater than 50% in coordination of care (as documented) at patient's floor/unit and/or counseling patient: Coding Level of Care Code 86582 SUB INP/OBS CARE 10/12MIN Diagnoses Multifocal pneumonia J18.8 Acute on chronic renal insufficiency N28.9; N18.9 Hypomagnesemia E83.42 Elevated troponin R79.89 Time Spent (min) 25
[2025-04-17] MEDS: THIAMINE HCL 100 MG in SYRINGE 9 ML IV SCH (16:10)
[2025-04-18 06:19] LABS: Anion Gap 12.0 (3-11); Blood Urea Nitrogen 69.0 mg/dl (6-23); Calcium 8.6 mg/dl (8.6-10.3); Carbon Dioxide 21.0 mmol/L (21-32); Chloride 100.0 mmol/L (98-107); Creatinine Clr Calc Pharmacy 10.8 ml/min; Glucose 94.0 mg/dl (70-99(Fasting)); Potassium 4.5 mmol/L (3.5-5.1); Sodium 133.0 mmol/L (136-145)
[2025-04-18] MEDS ORDERED: SODIUM CHLORIDE 0.9% 1,000 ML IV PRN (08:40)
--- NOTE | 2025-04-18 08:44 | Nephrology Progress Note ---
Date of Service April 18, 2025 Assessment & Plan (1) Status post kidney transplant: Plan: * s/p LURT due to FSGS 02/25 at [facility]. Post transplant Cr was 1.4. Patient has suffered recurrent episodes of KRISSY. Serum Cr has progressively risen to a new baseline of 2.5-2.8 w/ EGFR 24 cc/min * Outpatient immunosuppressive regimen has been MMF 250 mg 2 tablets po BID, prednisone 5 mg po qAM, tacrolimus 0.5 mg po BID (2) Acute kidney injury superimposed on stage 4 chronic kidney disease: Plan: * 04/13/[address] without contrast: no hydro of LURT * Urinalysis negative for granular casts * Continue tacrolimus, MMF and prednisone * 04/14/25 trough tacrolimus 10.5 * Patient remains oliguric. He likely sustained ischemic ATN of the transplanted kidney. It is unclear whether there will be recovery. * HD attempted this am. Unfortunately AVF has infiltrated. Volume status and electrolyte balance are acceptable. Will hold HD over and allow AVF to heal. If no renal recovery by Monday, will need to either resume HD via AVF or pursue IJ TCC * Will consult case management to set up outpatient HD at [facility] in case outpatient HD is needed at time of discharge * Monitor daily BMP, UO (3) Multifocal pneumonia: Plan: * On empiric Cefepime. Recommend consultation w/ pharmacy for dose adjustment in the setting of KRISSY. Monitor closely for neurotoxicity * Blood and urine cultures are no growth to date * 04/15/25 CXR - Mild interval improvement in lower R lung. Still has patchy opaicities in R perihilum and upper lung zone Admission and Anticipated Discharge Date Admission Date: April 13, 2025 Subjective Mr. Mandel was evaluated in his hospital room this morning. He denied dyspnea, RA SaO2 95%. L arm AVF is ecchymotic following infitration from HD 04/16/25 Review of Systems Constitutional: + weakness; no fever Eyes: no problem reported Ear, Nose, Mouth, Throat: no problem reported Respiratory: + dyspnea on exertion; no hemoptysis, no pain with cough and no sputum production Cardiovascular: no chest pain Gastrointestinal: no abdominal pain, no nausea, no vomiting and no diarrhea/loose stools Genitourinary: + problem reported (no pain overlying tr ansplant allograft); no dysuria or no hematuria Musculoskeletal: + myalgia Integumentary: no rash Physical Exam Physical Exam: Chronically ill appearing Eyes: PERRL, conjunctivae normal, anicteric sclerae ENMT: external ear and nose normal, oropharynx normal Neck: trachea midline, no thyromegaly Respiratory: normal respiratory effort Auscultation: + rales Cardiovascular: Rate/Rhythm: regular rate and regular rhythm Extremities: + edema (1+ pretibial pitting edema) Gastrointestinal (Abdomen): normal bowel sounds, soft, nontender, no hepatosplenomegaly Musculoskeletal: Extremities: + hand abnormality Skin: no rashes, warm and dry Neurologic: awake; not confused Results & Data Vital Signs (Past 12 Hours) Vital Signs Temp Pulse Pulse Resp BP Pulse Ox Pulse Ox 04/18/25 07:36 36.4 C L 85 17 108/61 95 04/18/25 04:00 92 04/18/25 02:22 36.5 C 84 19 81/60 L 90 04/17/25 23:51 36.6 C 83 18 80/52 L 92 04/17/25 21:46 84 O2 Del Method O2 Del Method 04/18/25 07:36 Room Air 04/18/25 04:00 Room Air 04/18/25 02:22 Room Air 04/17/25 23:51 Room Air 04/17/25 21:46 Laboratory Results Laboratory Results - last 24 hr 04/17/25 04/18/25 09:56 05:34 WBC 16.67 H RBC 2.66 L Hgb 8.8 L Hct 28.5 L MCV 107.1 H MCH 33.1 MCHC 30.9 L RDW Std Deviation 61.3 H RDW Coeff of Jaye 17.0 H Plt Count 147 MPV 11.2 Absolute Nucleated RBC 0.44 H Nucleated RBC % (auto) 2.6 Sodium 133 L Potassium 4.5 Chloride 100 Carbon Dioxide 21 Anion Gap 12 H BUN 69 H Creatinine 7.47 H* D Est Cr Clr Drug Dosing 10.8 eGFR 7.53 BUN/Creatinine Ratio 9.2 L Glucose 94 Calcium 8.6 PG Care Time/CCT Total # of Minutes Spent Total Time Spent with Patient: Total time spent is greater than 50% in coordination of care (as documented) at patient's floor/unit and/or counseling patient: Coding Level of Care Code 04352 SUB INP/OBS CARE 3/50MIN Diagnoses Status post kidney transplant Z94.0 Acute kidney injury superimposed on stage 4 chronic kidney disease N17.9; N18.4 Multifocal pneumonia J18.8
[2025-04-18] MEDS ORDERED: LIDOCAINE 4% CREAM 15 GM TUBE EXT PRN (08:49)
--- NOTE | 2025-04-18 10:29 | Hospitalist Progress Note ---
Date of Service April 18, 2025 Assessment & Plan (1) ESRD on hemodialysis: (2) Kidney transplant status, living unrelated donor: (3) Multifocal pneumonia: (4) Immunosuppression due to drug therapy: Plan In summary this is a 64-year-old male initially admitted for multifocal pneumon ia with acute respiratory failure complicated by and acute kidney injury. The patient's symptoms associated with their present pneumonia have mostly resolved, however there renal function has not improved or recovered. #Acute on chronic kidney injury, progressed to ESRD in the setting of previous renal transplant With regard to the patient's renal function, this was discussed with nephrology on 04/18 that there is concern that the patient's renal transplant will not be able to fully recover after this hospitalization, and anticipate need for outpatient hemodialysis. The patient has a previously developed left upper extremity AV fistula which can be accessed, unfortunately was infiltrated on 04/18 during attempted dialysis. at this time the patient does not require urgent hemodialysis given the volume status is not causing significant hemodynamic complications and they do not have significant electrolyte abnormalities at this time based on BMP reviewed from 04/18. Nephrology consulted -Deescalate from PICU to Med Tele #Acute respiratory failure with hypoxia secondary to multifocal CAP With regard to the patient's presenting pneumonia, they have recovered well; initially started on cefepime, this was transitioned as detailed below as there is no indication for this degree of antibiotic coverage at this time. The patient is noted to be immunosuppressed given their medications prescribed in the setting of previous renal transplant however there laboratory specimen thus far does not indicate significant leukopenia. Discontinue cefepime, start ceftriaxone 2 g IV daily on 04/18 -Continue pulmonary toilet Remainder the patient's chronic medical conditions including autoimmune hemolytic anemia, heart failure with preserved ejection fraction, permanent atrial fibrillation, gastroesophageal reflux disease with Rosales's esophagus, hypothyroidism are stable at this time and we will continue their regular outpatient medications as appropriate. Admission and Anticipated Discharge Date Admission Date: April 13, 2025; do not anticipate discharge in the next 48 to 72 hours given need to establish HD access and coordinate outpatient treatment Subjective Mr. 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 No acute overnight events; patient this morning expresses concern that he "is dying" as he earlier in the calendar year 2024 witnessed his father's passing and feels that he is going through a similar process at this time. Other than this concern, the patient has no specific complaints or new symptoms this morning. Review of Systems Review of Systems: Constitutional: denies fevers, chills, malaise, fatigue Cardiovascular: denies angina, palpitations, syncope, peripheral edema, orthopnea Pulmonary: denies cough, dyspnea on exertion, pleuritic chest pain Gastrointestinal: denies nausea, emesis, dysphagia, regurgitation, dyspepsia, abdominal distension, constipation, diarrhea Genitourinary: denies dysuria, hematuria, urinary incontinence Neurologic: denies focal weakness, paresthesias or numbness Musculoskeletal: denies arthralgias, progressive weakness, recent falls Integumentary: denies new or developing rashes or lesions Physical Exam Physical Exam: General: Adult male in no acute distress Vital Signs: Reviewed HEENT: Normocephalic, atraumatic; pupils equally reactive to light, extraocular motions intact; moist mucous membranes Neck: No palpable lymphadenopathy Pulmonary: symmetric chest wall excursion; diminished air movement in the right caudal posterior and caudal middle lobe, remaining lung acuna are clear to auscultation Cardiovascular: Regular rate and rhythm with no murmurs, rubs, or gallops; S1 and S2 normal; bilateral radial and posterior tibial pulses 2+; trace bilateral lower extremity edema distal of the mid leg; left upper extremity AV fistula has palpable thrill and audible bruit Gastrointestinal: Soft, protuberant; normal frequency and pitch of bowel sounds throughout; no palpable masses or organomegaly Neurologic: CN II-XII grossly intact Results & Data Results & Data Vital Signs (Past 12 Hours) Vital Signs Temp Pulse Resp BP Pulse Ox Pulse Ox O2 Del Method 04/18/25 07:36 36.4 C L 85 17 108/61 95 Room Air 04/18/25 04:00 92 04/18/25 02:22 36.5 C 84 19 81/60 L 90 Room Air 04/17/25 23:51 36.6 C 83 18 80/52 L 92 Room Air O2 Del Method 04/18/25 07:36 04/18/25 04:00 Room Air 04/18/25 02:22 04/17/25 23:51 PG Care Time/CCT Total # of Minutes Spent Total Time Spent with Patient: Total time spent is greater than 50% in coordination of care (as documented) at patient's floor/unit and/or counseling patient: Coding [place] [address] SUB INP/OBS CARE 3/50MIN Patient Type Established Diagnoses ESRD on hemodialysis N18.6; Z99.2 Kidney transplant status, living unrelated donor Z94.0 Multifocal pneumonia J18.8 Immunosuppression due to drug therapy D84.821
[2025-04-18] MEDS: EPOETIN ALFA 10,000 UNITS/ML VIAL IV ONE (12:01)
[2025-04-18] MEDS ORDERED: cefTRIAXone SODIUM 2,000 MG/50 ML BAG IV SCH (12:30)
--- NOTE | 2025-04-18 20:30 | Electrocardiogram Report ---
Test Reason : Blood Pressure : */* mmHG Vent. Rate : 88 BPM Atrial Rate : * BPM P-R Int : * ms QRS Dur : 176 ms QT Int : 464 ms P-R-T Axes : * -34 198 degrees QTcB Int : 561 ms Probable Atrial flutter Left axis deviation Right bundle branch block Possible Lateral infarct , age undetermined Abnormal ECG When compared with ECG of 25-Dec-2024 20:06, Atrial flutter has replaced Atrial fibrillation Confirmed by Chauncey Dahl ([id number] on 04/18/2025 8:30:17 PM Referred By: REFERRED SELF Confirmed By: Chauncey Dahl
[2025-04-18] MEDS: cefTRIAXone SODIUM 2,000 MG/50 ML BAG IV SCH (21:32)
[2025-04-19 06:41] LABS: Anion Gap 14.0 (3-11); Blood Urea Nitrogen 80.0 mg/dl (6-23); Calcium 8.9 mg/dl (8.6-10.3); Carbon Dioxide 20.0 mmol/L (21-32); Chloride 99.0 mmol/L (98-107); Creatinine Clr Calc Pharmacy 9.9 ml/min; Glucose 90.0 mg/dl (70-99(Fasting)); Potassium 4.5 mmol/L (3.5-5.1); Sodium 133.0 mmol/L (136-145)
[2025-04-19 07:12] LABS: Hematocrit (blood only) 21.0 % (42.0-52.0); Hemoglobin 6.8 g/dl (14.0-18.0); Mean Corpuscular Hemoglobin 34.2 pg (25.0-34.0); Mean Corpuscular Volume 105.5 fL (80.0-100.0); Platelet Count 107 K/uL (130-400); RDW Standard Deviation 62.2 fL (36.4-46.3); Red Blood Count 1.99 M/uL (4.70-6.10); White Blood Count 12.12 K/ul (4.8-10.8)
[2025-04-19 09:05] LABS: Hematocrit (blood only) 22.1 % (42.0-52.0); Hemoglobin 7.0 g/dl (14.0-18.0)
[2025-04-19] MEDS ORDERED: SODIUM CHLORIDE 0.9% 100 ML IV PRN (09:30)
--- NOTE | 2025-04-19 09:45 | Hospitalist Progress Note ---
Date of Service April 19, 2025 Assessment & Plan (1) ESRD on hemodialysis: (2) Anemia in chronic renal disease: (3) Multifocal pneumonia: (4) Kidney transplant status, living unrelated donor: (5) Immunosuppression due to drug therapy: Plan In summary this is a 64-year-old male initially admitted for multifocal pneumonia with acute respiratory failure complicated by and acute kidney injury. The patient's symptoms associated with their present pneumonia have mostly resolved, however there renal function has not improved or recovered. #Acute on chronic kidney injury, progressed to ESRD in the setting of previous renal transplant With regard to the patient's renal function, this was discussed with nephrology on 04/18 that there is concern that the patient's renal transplant will not be able to fully recover after this hospitalization, and anticipate need for outpatient hemodialysis. The patient has a previously developed left upper extremity AV fistula which can be accessed, unfortunately was infiltrated on 04/18 during attempted dialysis. At this time the patient does not require urgent hemodialysis given their current volume status and electrolytes -Nephrology consulted -Deescalate from PICU to Med Tele #Anemia of chronic disease i/s/o renal failure Chronic condition with baseline hemoglobin in the range of 9.0-9.5; hemoglobin 6.8 on 04/19, reassessment 7.0; patient is currently asymptomatic though with h is multiple medical conditions and persistent measure around 7.0 we will pursue transfusion. He has not had significant progression in his volume status from the days prior, low threshold to administer loop diuretic to facilitate diuresis during transfusions though the patient has been oliguric as discussed above consequential of his transplant failure. Administer 1 unit PRBC 1 time over 6 hours. Reassess hemoglobin on 04/20 #Acute respiratory failure with hypoxia secondary to multifocal CAP With regard to the patient's presenting pneumonia, they have recovered well; initially started on cefepime, this was transitioned as detailed below as there is no indication for this degree of antibiotic coverage at this time. The patient is noted to be immunosuppressed given their medications prescribed in the setting of previous renal transplant however there laboratory specimen thus far does not indicate significant leukopenia. Discontinue cefepime, continue ceftriaxone 2 g IV daily through 04/23 -Continue pulmonary toilet Remainder the patient's chronic medical conditions including autoimmune hemolytic anemia, heart failure with preserved ejection fraction, permanent atrial fibrillation, gastroesophageal reflux disease with Rosales's esophagus, hypothyroidism are stable at this time and we will continue their regular outpatient medications as appropriate. Admission and Anticipated Discharge Date Admission Date: April 13, 2025 Anticipated date of discharge: 04/22/25 Subjective Mr. 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 No acute overnight events; Patient this morning has no new complaints or concerns. Review of Systems Review of Systems: Constitutional: denies fevers, chills, malaise, fatigue Cardiovascular: denies angina, palpitations, syncope, peripheral edema, orthopnea Pulmonary: denies cough, dyspnea on exertion, pleuritic chest pain Gastrointestinal: denies nausea, emesis, dysphagia, regurgitation, dyspepsia, abdominal distension, constipation, diarrhea Neurologic: denies focal weakness, paresthesias or numbness Integumentary: denies new or developing rashes or lesions Physical Exam Physical Exam: General: Adult male in no acute distress Vital Signs: Reviewed HEENT: Normocephalic, atraumatic; moist mucous membranes Pulmonary: symmetric chest wall excursion; diminished air movement in the right caudal posterior and caudal middle lobe, remaining lung acuna are clear to auscultation Cardiovascular: Regular rate and rhythm with no murmurs, rubs, or gallops; S1 and S2 normal; bilateral radial and posterior tibial pulses 2+; trace bilateral lower extremity edema distal of the mid leg; left upper extremity AV fistula has palpable thrill and audible bruit Gastrointestinal: Soft, protuberant; normal frequency and pitch of bowel sounds throughout; no palpable masses or organomegaly Neurologic: CN II-XII grossly intact Results & Data Results & Data Vital Signs (Past 12 Hours) Vital Signs Temp Pulse Pulse Pulse Resp BP Pulse Ox 04/19/25 07:56 36.3 C L 85 18 96/58 L 95 04/19/25 04:00 04/19/25 03:45 36.8 C 85 18 92/53 L 94 04/18/25 21:44 85 04/18/25 21:41 O2 Del Method O2 Del Method 04/19/25 07:56 Room Air 04/19/25 04:00 Room Air 04/19/25 03:45 Room Air 04/18/25 21:44 04/18/25 21:41 Room Air PG Care Time/CCT Total # of Minutes Spent Total Time Spent with Patient: Total time spent is greater than 50% in coordination of care (as documented) at patient's floor/unit and/or counseling patient: Coding [place] [address] SUB INP/OBS CARE 3/50MIN Patient Type Established History Detailed Exam Detailed Medical Decision Making High Complexity Diagnoses ESRD on hemodialysis N18.6; Z99.2 Anemia in stage 5 chronic kidney disease, not on chronic dialysis N18.5; D63.1 Chronic kidney disease stage: stage 5 (GFR < 15), not on chronic dialysis Multifocal pneumonia J18.8 Kidney transplant status, living unrelated donor Z94.0 Immunosuppression due to drug therapy D84.821 (2) Anemia in chronic renal disease Chronic kidney disease stage: stage 5 (GFR < 15), not on chronic dialysis Qualified Code(s): N18.5 - Chronic kidney disease, stage 5; D63.1 - Anemia in chronic kidney disease
--- NOTE | 2025-04-19 10:52 | Nephrology Progress Note ---
Date of Service April 19, 2025 Assessment & Plan (1) Acute kidney injury: (2) ESRD on hemodialysis: (3) Kidney transplant status, living unrelated donor: (4) Status post kidney transplant: (5) Warm autoimmune hemolytic anemia: (6) Multifocal pneumonia: (7) Pulmonary edema: Plan 64 y o m with acute kidney injury with history of renal transplant and repeated episodes of acute kidney injury for last 1 year and lately baseline creatinine staying around 2.5-3.0 mg/dl, admitted with multifocal pneumonia and KRISSY. Kidney function progressively worsened and became oliguric started on dialysis and now 3 hours dialysis 2 days ago. However since then did not have dialysis for the last 2 days because of AV fistula with multiple infiltration. Kidney function continues to worsen, getting significantly volume overloaded with respiratory distress and decreased urine output. Hemoglobin 7.0. --Bumex 1 mg IV x 1 dose now. If no improvement in urine within next 2 hours, will request intensive care to place a temporary dialysis catheter and will do dialysis this afternoon. If dialysis needed this afternoon, blood transfusion can be done during dialysis. --Will tentatively plan for tunneled dialysis catheter early next week. Admission and Anticipated Discharge Date Admission Date: April 13, 2025 Rocio Naik was seen and evaluated this morning. Has been having significant shortness of, reports decreasing urine output. Progressive worsening of kidney function noted. Hemoglobin low at 7.0. Blood pressure relatively low. Review of Systems Review of Systems: All systems reviewed & are unremarkable except as noted in Subjective Physical Exam Constitutional: WD/WN, vitals as above + ill appearing and + edematous face puffy Eyes: + anicteric sclerae Respiratory: + respiratory distress Auscultation: + crackles Cardiovascular: Rate/Rhythm: regular rate and regular rhythm Heart Sounds: normal S1 and normal S2 Extremities: + edema (1 to 2 + b/l lower extremity edema.) and + AV fistula (left RC AVF with thrill and Bruit) Skin: + turgor decreased, + dry skin and + ecc hymosis Neurologic: no focal motor deficits Psychiatric: Orientation: alert and oriented x 3 Affect: euthymic affect Results & Data Vital Signs (Past 12 Hours) Vital Signs Temp Pulse Pulse Resp BP Pulse Ox O2 Del Method 04/19/25 07:56 36.3 C L 85 18 96/58 L 95 Room Air 04/19/25 04:00 04/19/25 03:45 36.8 C 85 18 92/53 L 94 Room Air O2 Del Method 04/19/25 07:56 04/19/25 04:00 Room Air 04/19/25 03:45 PG Care Time/CCT Total # of Minutes Spent Total Time Spent with Patient: Total time spent is greater than 50% in coordination of care (as documented) at patient's floor/unit and/or counseling patient: Coding Level of Care Code 03873 SUB INP/OBS CARE 2/35MIN Diagnoses Acute kidney injury N17.9 ESRD on hemodialysis N18.6; Z99.2 Kidney transplant status, living unrelated donor Z94.0 Status post kidney transplant Z94.0 Warm autoimmune hemolytic anemia D59.11 Multifocal pneumonia J18.8 Pulmonary edema J81.1
[2025-04-19] MEDS: BUMETANIDE 4 MG in SYRINGE 0 ML IV ONE (11:24)
[2025-04-19] MEDS: MIDODRINE HCL 10 MG TAB PO PRN (15:43)
--- NOTE | 2025-04-19 16:04 | Procedure Note ---
Procedure Note Date of Service April 19, 2025 Procedure date: Noted above Procedure: Temporary hemodialysis catheter Pre-procedure indication: Need for hemodialysis, nonfunctional fistula Post-procedure Diagnosis: same as above Prior to Procedure: Informed Consent: The risks, benefits, indications, potential complications, and alternatives were explained to the patient and informed consent obtained. Attending Staff: Patti Mancia DO Resident/APC: Not applicable Skin Prep: Chlorhexidine Anesthesia: 4 mL 1% lidocaine without epinephrine The identity of the patient was confirmed and a bedside time out was performed. Description of Procedure: After sterile prep and sterile drape utilizing standard sterile technique the superficial skin of the right internal jugular area was anesthetized. The target vessel was identified and entered with an 18- gauge needle. Dark venous blood return was noted. A guidewire was attempted to be passed into the vessel. At approximately 10 cm there were would be consistent resistance precluding successful passing of the guidewire. 2 additional attempts were attempted on the right side and each time the catheter would not pass. Complications: Unsuccessful passing of guidewire for a temporary HD catheter, the right-sided procedure was aborted Estimated blood loss: Trace Patient tolerated the procedure well. Procedure Date: Noted Above Procedure: Procedural Ultrasound Indication: Central venous access Attending: Patti Mancia DO Resident/Physician Mold Setter: Not applicable Artery visualized: Yes Vein visualized: Yes Compressible Vein: Yes Vein patent: Yes Guidewire or Short Catheter seen in vein prior to dilation: No Line confirmed in Vein with ultrasound: Yes Lung Sliding on side of attempt (if applicable): NA If no lung sliding or not obtained has CXR been ordered: Yes Impression: Possible chronic thrombus in the right proximal IJ thereby prec luding passing of a guidewire Images obtained are saved for permanent record [facility] [place] Procedure Codes (Charges) Tubes, Drains, and Vasc Access Procedure 1: Tubes, Drains, and Vasc Access: [id number] Insertion Of Non-tunneled Catheter Age 5 Yrs> (Aborted procedure, right sided procedure) Coding CPT Codes Tubes, Drains, and Vasc Access - Tubes, Drains, and Vasc Access: [id number] Insertion Of Non-tunneled Catheter Age 5 Yrs> ([id number]) Additional Codes Date of Service (PG.SURGERY)
--- NOTE | 2025-04-19 16:30 | Procedure Note ---
Procedure Note Date of Service April 19, 2025 Procedure date: Noted above Procedure: Temporary hemodialysis catheter Pre-procedure indication: Need for urgent hemodialysis, nonfunctional fistula Post-procedure Diagnosis: same as above Prior to Procedure: Informed Consent: The risks, benefits, indications, potential complications, and alternatives were explained to the patient and informed consent obtained. Attending Staff: Patti Mancia DO Resident/APC: Not applicable Skin Prep: Chlorhexidine Anesthesia: 4 mL 1% lidocaine without epinephrine The identity of the patient was confirmed and a bedside time out was performed. Description of Procedure: After sterile prep and sterile drape utilizing standa rd sterile technique the superficial skin of the left internal jugular area was anesthetized. The target vessel was identified and entered with an 18-gauge needle. Dark venous blood return was noted. A guidewire was inserted through the needle and into the vessel. The needle was withdrawn and a skin antonette was made. A tissue dilator was attempted to be advanced, the initial small caliber dilator easily passed, the second larger tissue dilator was unable to be advanced approximately 7 cm. The catheter itself was unable to be advanced over the guidewire. An additional attempt was made with the same results. Further attempts were discontinued and the left internal jugular area Complications: Hematoma to the left neck Estimated blood loss: Trace Patient tolerated the procedure well. Procedure Date: Noted Above Procedure: Procedural Ultrasound Indication: Central venous access Attending: Patti Mancia DO Resident/Physician Camera Repair Technician: Not applicable Artery visualized: Yes Vein visualized: Yes Compressible Vein: Yes Vein patent: Yes Guidewire or Short Catheter seen in vein prior to dilation: Yes Line confirmed in Vein with ultrasound: Yes Lung Sliding on side of attempt (if applicable): NA If no lung sliding or not obtained has CXR been ordered: Yes Impression: Unsuccessful temporary hemodialysis catheter placement Images obtained are saved for permanent record [facility] [place] Procedure Codes (Charges) Tubes, Drains, and Vasc Access Procedure 1: Tubes, Drains, and Vasc Access: [id number] Insertion Of Non-tunneled Catheter Age 5 Yrs> (Left-sided procedure, aborted procedure) Coding CPT Codes Tubes, Drains, and Vasc Access - Tubes, Drains, and Vasc Access: [id number] Insertion Of Non-tunneled Catheter Age 5 Yrs> ([id number]) Additional Codes Date of Service (PG.SURGERY)
--- NOTE | 2025-04-19 16:32 | Procedure Note ---
Procedure Note Date of Service April 19, 2025 Procedure date: Noted above Procedure: Temporary hemodialysis catheter Pre-procedure indication: Need for urgent hemodialysis and nonfunctional fistula Post-procedure Diagnosis: same as above Prior to Procedure: Informed Consent: The risks, benefits, indications, potential complications, and alternatives were explained to the patient and informed consent obtained. Attending Staff: Patti Mancia DO Resident/APC: Not applicable Skin Prep: Chlorhexidine Anesthesia: 4 mL 1% lidocaine without epinephrine The identity of the patient was confirmed and a bedside time out was performed. Description of Procedure: After sterile prep and sterile drape utilizing sta ndard sterile technique the superficial skin of the right femoral area was anesthetized. The target vessel was identified and entered with an 18-gauge needle. Dark venous blood return was noted. A guidewire was inserted through the needle and into the vessel. The needle was withdrawn and a skin antonette was made. A tissue dilator was advanced via Seldinger technique and removed. A double lumen catheter was inserted via Seldinger technique and the guidewire removed. All ports susy and flushed easily. A Biopatch was placed, and the catheter was secured via nylon suture A sterile dressing was then applied. Complications: None Estimated blood loss: Trace Patient tolerated the procedure well. Procedure Date: Noted Above Procedure: Procedural Ultrasound Indication: Central venous access Attending: Patti Mancia DO Resident/Physician Gallery Or Museum Technician: Not applicable Artery visualized: Yes Vein visualized: Yes Compressible Vein: Yes Vein patent: Yes Guidewire or Short Catheter seen in vein prior to dilation: Yes Line confirmed in Vein with ultrasound: NA Lung Sliding on side of attempt (if applicable): NA If no lung sliding or not obtained has CXR been ordered: Yes Impression: Successful central venous access placement Images obtained are saved for permanent record [facility] [place] Procedure Codes (Charges) Tubes, Drains, and Vasc Access Procedure 1: Tubes, Drains, and Vasc Access: [id number] Insertion Of Non-tunneled Catheter Age 5 Yrs> Procedure 2: Tubes, Drains, and Vasc Access: [id number] Ultrasound Guidance For Vascular Coding CPT Codes Tubes, Drains, and Vasc Access - Tubes, Drains, and Vasc Access: [id number] Insertion Of Non-tunneled Catheter Age 5 Yrs> ([id number]) Tubes, Drains, and Vasc Access - Tubes, Drains, and Vasc Access: [id number] Ultrasound Guidance For Vascular ([id number]) Additional Codes Date of Service (PG.SURGERY)
[2025-04-19 17:05] LABS: Hematocrit (blood only) 20.2 % (42.0-52.0); Hemoglobin 6.4 g/dl (14.0-18.0)
[2025-04-19] MEDS: EPOETIN ALFA 20,000 UNITS/ML VIAL IV STA (17:39)
[2025-04-19] MEDS: MIDODRINE HCL 10 MG TAB PO STA (17:39)
--- NOTE | 2025-04-19 18:26 | XRay Report ---
EXAM: XR chest 1V portable CLINICAL HISTORY: line attempts TECHNIQUE: X-ray images of the chest were obtained in anteroposterior (AP) projection. COMPARISON: Compared to the last study dated 04/15/2025 FINDINGS: Pulmonary Parenchyma: Patchy discrete opacities noted in the right lung perihelium, upper zone, and lower zone. The right costophrenic angle is not included in the current exam. Heart and Mediastinum: Cardiomegaly is noted. Bony Thorax: Bony thorax appears intact without fractures or deformities. Soft Tissues: Soft tissues overlying the chest wall are unremarkable. ECG leads noted. No central lines noted. IMPRESSION: 1. No central lines noted. 2. Interval progression with regard to the patchy discrete opacities noted in the right lung perihelium, upper zone, and lower zone. Suggesting infiltrates 3. The right costophrenic angle is not included in the current exam, inability to assess the previously described pleural effusion. 4. Cardiomegaly is noted, stable. Electronically signed by Roosevelt Rojas 04-19-2025 6:25 PM
[2025-04-19] MEDS ORDERED: PANTOprazole 40 MG/10 ML SYR IV SCH (21:00)
[2025-04-19] MEDS: BUMETANIDE 4 MG in SYRINGE 0 ML IV SCH (21:26)
[2025-04-19] MEDS: PANTOprazole 40 MG/10 ML SYR IV SCH (21:48)
[2025-04-20] MEDS ORDERED: SODIUM CHLORIDE 0.9% 100 ML IV PRN ×3 (05:27→11:48)
[2025-04-20 05:49] LABS: Anion Gap 12.0 (3-11); Blood Urea Nitrogen 48.0 mg/dl (6-23); Calcium 8.5 mg/dl (8.6-10.3); Carbon Dioxide 25.0 mmol/L (21-32); Chloride 99.0 mmol/L (98-107); Creatinine Clr Calc Pharmacy 15.2 ml/min; Glucose 79.0 mg/dl (70-99(Fasting)); Potassium 3.7 mmol/L (3.5-5.1); Sodium 136.0 mmol/L (136-145)
[2025-04-20 06:21] LABS: Hematocrit (blood only) 20.1 % (42.0-52.0); Hemoglobin 6.2 g/dl (14.0-18.0)
--- NOTE | 2025-04-20 07:15 | Gastrointestinal Consultation ---
Date of Consultation April 20, 2025 Assessment & Plan (1) Anemia: Etiology of progressive anemia multifactorial related to underlying chronic disease as well as his renal failure. At this point cannot exclude GI blood loss. Recent endoscopy was unrevealing for any potential source of upper GI blood loss. Presently unstable medically due to pulmonary disease to proceed with any endoscopic workup at this time. Would continue to maintain his hemoglobin at a safe level continue dialysis and treatment for his pneumonias. Obtain a stool sample to document occult blood loss. Will continue to follow closely. History of Present Illness Reason for Consultation: Anemia possible GI bleed Attending Physician: Janet Morel DO History of Present Illness Patient admitted with multifocal pneumonia several days ago on IV antibiotics. Developed aggressive renal insufficiency requiring dialysis. He has a history of a renal transplant in the past. History of hemolytic anemia, HFpEF, COPD, A- fib, acute DVT and hypothyroidism. Hospitalization his hemoglobin is gradually falling to a low of 6.2. No documented evidence of GI blood loss. Stool has been brown FOBT pending still waiting for sample. History of Rosales's esophagus. Last endoscopy January 2025 just showed evidence of Rosales's esophagus normal stomach normal duodenum. Allergies Allergy/AdvReac Type Severity Reaction Status Date / Time clopidogrel [From Plavix] Allergy Unknown Unknown Verified 03/14/25 10:20 Lkovbsp-JGL-CwQ Reductase AdvReac Intermediate myalgias Verified 03/14/25 10:20 Inhibitor [Gfrkcrg-Frg-Ozm Reductase Inhibitor] Home Medications Medication Instructions Recorded Confirmed Type mycophenolate mofetil 250 mg 500 mg (2 x 250 mg) PO BID #360 05/29/20 04/13/25 Rx capsule caps amoxicillin 500 mg capsule 2,000 mg PO DIRECTED PRN PRIOR 07/29/20 04/13/25 History TO DENTAL PROCEDURES pantoprazole 40 mg tablet,delayed 40 mg PO BID #180 tabs 12/06/23 04/13/25 Rx release calcium carbonate 500 mg PO QAM 01/21/24 04/13/25 History ferrous sulfate 325 mg (65 mg 325 mg PO BID #60 tabs 02/05/24 04/13/25 Rx iron) tablet acyclovir 400 mg tablet 400 mg PO BID 05/07/24 04/13/25 History ondansetron 4 mg disintegrating 4 mg PO Q8 PRN nausea #20 tabs 05/22/24 04/13/25 Rx tablet magnesium oxide 500 mg PO BID 08/09/24 04/13/25 History albuterol sulfate 90 mcg/actuation 2 inh inhalation Q6H PRN shortness 08/25/24 04/13/25 Rx aerosol inhaler of breath or wheezing #8.5 grams danazol 200 mg capsule 200 mg PO BID 09/13/24 04/13/25 History levothyroxine 125 mcg tablet 125 mcg PO QAM #90 tabs 09/27/24 04/13/25 Rx acetaminophen 325 mg tablet 650 mg PO Q4H PRN Pain 11/14/24 04/13/25 History aspirin 81 mg tablet,delayed 81 mg PO DAILY 11/14/24 04/13/25 History release (Adult Aspirin Regimen) cholecalciferol (vitamin D3) 25 25 mcg PO DAILY 11/14/24 04/13/25 History mcg (1,000 unit) capsule vitamin B complex-vitamin C-folic 1 tab PO BID 11/14/24 04/13/25 History acid 0.8 mg tablet (Renal Vitamin) allopurinol 300 mg tablet 300 mg PO DAILY 12/25/24 04/13/25 History bumetanide 1 mg tablet 1 mg PO BID #70 tabs 01/23/25 04/13/25 Rx folic acid 1 mg tablet 1 mg PO BID #180 tabs 02/03/25 04/13/25 Rx tacrolimus 0.5 mg capsule, 0.5 mg PO Q12H Dx: Z94.0 kidney 02/05/25 04/13/25 Rx immediate-release transplant #60 caps apixaban 5 mg tablet (Eliquis) 5 mg PO BID #180 tabs 02/19/25 04/13/25 Rx prednisone 5 mg tablet 5 mg PO QAM #90 tabs 03/14/25 04/13/25 Rx metoprolol succinate 50 mg 50 mg PO BID #90 tabs 03/17/25 04/13/25 Rx tablet,extended release 24 hr Patient History Medical History Infection of finger Hx of sepsis due to pneumonia, ~07/26/24, hospitalized at [facility] Erosive esophagitis hx, EGD 08/2023 History of Clostridioides difficile infection dx 09/14/24, [facility]; 09/24/24, per pt, "will be finishing abx in next day or so" CKD (chronic kidney disease) f/u de nephrology Bilateral leg edema "has some, has gotten better" Hx of adrenal insufficiency Hx of right bundle branch block f/u de cardiology History of recent hospitalization pt admitted to [facility] multiple times over 2023 (01/21/24, 05/2024-sx, 07/13/24, 07/26/24, 08/22/24, 08/24/24); most recent visit 08/24/24 per records "63-year-old male with past medical history significant for HFpEF, A-fib, ESRD, WAHA, and additional chronic medical conditions who is presenting for sudden onset of chest pain with shortness of breath after exertion following eating out at [employer] followed by increased activity with cutting wood and developed chest pain. CXR with evidence for volume overload and was provided IV Lasix last nitro on admission with improvement/resolution of symptoms. Also with KRISSY that was likely due to hypotension/hypoperfusion and increased diuretic use recently; improving. Also with A-fib RVR, suspect due to increased salt load/increased activity/untreated CHERELLE." Rhinovirus infection Hypomagnesemia Hx of gout Hx of congestive heart failure Sleep apnea, obstructive no device Hypocalcemia hx Weakness Atrial fibrillation with rapid ventricular response controlled w/ metoprolol; f/u de cardiology Hypotension pt unaware? Heart failure with preserved ejection fraction hx; f/u de cardiology Hypomagnesemia hx History of non-ST elevation myocardial infarction (NSTEMI) entered into chart 01/2023 Osteoporosis Hypothyroidism Hyperlipidemia Hx of esophageal reflux controlled, stable per pt 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 Abdominal aortic aneurysm 4.9 cm on 01/2023 chest CTA; monitoring History of colon polyps Retroperitoneal mass lesion biopsy negative for malignancy 05/2022 per transplant record 03/17/23 Pneumonia hx, ~08/23/24 Adrenal nodule monitored by PCP Arthritis On prednisone therapy Rosales's esophagus with esophagitis Atrial flutter hx 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 Thoracic ascending aortic aneurysm 4.[address] 01/19/24 Hypertension controlled, stable per pt Limb alert care status left arm restriction History of blood transfusion ~07/2024 Hx of herpetic maria History of COVID-19 07/2020- covid pneumonia, hospitalized; resolved History of renal dialysis prior to kidney transplant; has dialysis fistula left arm History of CVA (cerebrovascular accident) 2008, mild memory changes Surgical History History of total right hip arthroplasty Hx of kidney [place] 02/2010- [place] History of esophagogastroduodenoscopy (EGD) Hx of cholecystectomy Hx of exploratory laparotomy History of colonoscopy Family History Grandmother (Maternal) Alzheimer disease Mother Depression Denies family history of Ovarian cancer Prostate cancer Diabetes Heart disease Myocardial infarction Breast cancer Lung cancer COPD (chronic obstructive pulmonary disease) Colorectal cancer Hypertension Stroke Social History Smoking Status: Never smoker Second Hand Exposure: No; Do You Dip or Chew Tobacco: No; Hx Alcohol Use: No Hx Substance Use: No 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: [place] Communication Ability: Effective Visual Impairment: No Limitations Hearing Ability: Normal Pattern Changer And Repairer Required: No Beliefs That Will Affect Care: None marital status: Current Living Situation: Spouse current occupational status: employed current occupation: [employer] How many Children do You have: 1 Feels Safe at Home: Yes Childhood Exposure to Second-Hand Smoke: No Dental Care, Regularly: Yes Seatbelt Use: sometimes Sunscreen Use: No Assistive Devices: Cane and Walker Review of Systems Review of Systems: Patient short of breath on supplemental O2 No abdominal pain no chest pain Physical Exam Physical Exam: Eyes; anicteric HENT No masses Chest clear to A Cor S1, S2 physiologic Abd: softer nontender no masses Results & Data Vital Signs (Past 12 Hours) Vital Signs Temp Pulse Pulse Resp BP BP Pulse Ox 04/20/25 06:50 100 04/20/25 06:49 36.6 C 86 20 93/69 L 100 04/20/25 06:20 36.6 C 85 20 96/47 L 100 04/20/25 06:05 36.6 C 86 20 93/53 L 100 04/20/25 06:05 36.6 C 86 20 93/53 L 100 04/20/25 05:41 36.6 C 85 20 87/56 L 100 04/20/25 03:49 04/20/25 03:43 36.7 C 86 20 94/53 L 96 04/20/25 00:15 36.8 C 86 18 92 04/19/25 22:00 04/19/25 21:49 67 04/19/25 20:15 36.4 C L 82 98/58 L 04/19/25 20:00 80 91/65 L 04/19/25 19:30 85 80/51 L Pulse Ox O2 Del Method O2 Del Method O2 Flow Rate 04/20/25 06:50 2 04/20/25 06:49 2 04/20/25 06:20 2 04/20/25 06:05 2 04/20/25 06:05 2 04/20/25 05:41 04/20/25 03:49 93 Room Air 04/20/25 03:43 Room Air 04/20/25 00:15 Room Air 04/19/25 22:00 Room Air 04/19/25 21:49 04/19/25 20:15 04/19/25 20:00 04/19/25 19:30 Laboratory Results Laboratory Results - last 48 hr 04/16/25 04/19/25 04/19/25 17:11 05:36 07:45 WBC 12.12 H RBC 1.99 L Hgb 6.8 L* Cancelled Hct 21.0 L Cancelled MCV 105.5 H MCH 34.2 H MCHC 32.4 RDW Std Deviation 62.2 H RDW Coeff of Jaye 18.2 H Plt Count 107 L MPV 12.1 Absolute Nucleated RBC 0.09 Nucleated RBC % (auto) 0.7 Sodium 133 L Potassium 4.5 Chloride 99 Carbon Dioxide 20 L Anion Gap 14 H BUN 80 H Creatinine 8.16 H* D Est Cr Clr Drug Dosing 9.9 eGFR 6.77 BUN/Creatinine Ratio 9.8 L Glucose 90 Calcium 8.9 Hep B Core IgM Ab NON-REACTIVE Blood Type A Positive Antibody Screen POSITIVE A Antibody Identification Auto Cold Agglutinin Antibody ID Comment Crossmatch 04/19/25 04/19/25 04/19/25 07:45 07:45 08:51 WBC RBC Hgb 7.0 L Hct 22.1 L MCV MCH MCHC RDW Std Deviation RDW Coeff of Jaye Plt Count MPV Absolute Nucleated RBC Nucleated RBC % (auto) Sodium Potassium Chloride Carbon Dioxide Anion Gap BUN Creatinine Est Cr Clr Drug Dosing eGFR BUN/Creatinine Ratio Glucose Calcium Hep B Core IgM Ab Blood Type Antibody Screen Antibody Identification Auto Gil Agglutinin Anti-E Antibody ID Comment Cancelled Crossmatch See Detail 04/19/25 04/20/25 16:01 05:20 WBC RBC Hgb 6.4 L* 6.2 L* Hct 20.2 L* 20.1 L* MCV MCH MCHC RDW Std Deviation RDW Coeff of Jaye Plt Count MPV Absolute Nucleated RBC Nucleated RBC % (auto) Sodium 136 Potassium 3.7 Chloride 99 Carbon Dioxide 25 Anion Gap 12 H BUN 48 H D Creatinine 5.38 H* D Est Cr Clr Drug Dosing 15.2 eGFR 11.16 BUN/Creatinine Ratio 8.9 L Glucose 79 Calcium 8.5 L Hep B Core IgM Ab Blood Type Antibody Screen Antibody Identification Antibody ID Comment Crossmatch Diagnostic Findings Chest X-Ray 04/19/25 16:03 EXAM: XR chest 1V portable CLINICAL HISTORY: line attempts TECHNIQUE: X-ray images of the chest were obtained in anteroposterior (AP) projection. COMPARISON: Compared to the last study dated 04/15/2025 FINDINGS: Pulmonary Parenchyma: Patchy discrete opacities noted in the right lung perihelium, upper zone, and lower zone. The right costophrenic angle is not included in the current exam. Heart and Mediastinum: Cardiomegaly is noted. Bony Thorax: Bony thorax appears intact without fractures or deformities. Soft Tissues: Soft tissues overlying the chest wall are unremarkable. ECG leads noted. No central lines noted. IMPRESSION: 1. No central lines noted. 2. Interval progression with regard to the patchy discrete opacities noted in the right lung perihelium, upper zone, and lower zone. Suggesting infiltrates 3. The right costophrenic angle is not included in the current exam, inability to assess the previously described pleural effusion. 4. Cardiomegaly is noted, stable. Electronically signed by Roosevelt Rojas 04-19-2025 6:25 PM PG Care Time/CCT Total # of Minutes Spent Total Time Spent with Patient: Total time spent is greater than 50% in coordination of care (as documented) at patient's floor/unit and/or counseling patient: Coding Level of Care Code 17234 INT INP/OBS CARE 3/75MIN Diagnoses Anemia D64.9
--- NOTE | 2025-04-20 09:11 | Hospitalist Progress Note ---
Date of Service April 20, 2025 Assessment & Plan (1) ESRD on hemodialysis: (2) Anemia in chronic renal disease: (3) Multifocal pneumonia: (4) Kidney transplant status, living unrelated donor: (5) Immunosuppression due to drug therapy: (6) Melanotic stools: Plan In summary this is a 64-year-old male initially admitted for multifocal pneumonia with acute respiratory failure complicated by and acute kidney injury. The patient's symptoms associated with their present pneumonia have mostly resolved. during the day on 04/19 the patient developed recurrent melanotic stools without hematochezia, they remained hemodynamically stable though their course is complicated now by suspected upper gastrointestinal hemorrhage. Renal function continues to be unrecovered. #Acute on chronic kidney injury, progressed to ESRD in the setting of previous renal transplant With regard to the patient's renal function, this was discussed with nephrology on 04/18 that there is concern that the patient's renal transplant will not be able to fully recover after this hospitalization, and anticipate need for outpatient hemodialysis. The patient has a previously developed left upper extremity AV fistula which can be accessed, unfortunately was infiltrated on 04/18 during attempted dialysis. The patient had a temporary right femoral hemodialysis catheter placed on 04/19 due to need for anticipated dialysis in the setting of blood transfusion which is further detailed below for volume control. Based on laboratory assessment on 04/20, there is no urgent need for hemodialysis. -Nephrology consulted #Anemia of chronic disease i/s/o renal failure // Melanotic stool Chronic condition with baseline hemoglobin in the range of 9.0-9.5; hemoglobin trend 7.0, 6.4, 6.2; there was delay in obtaining 1 unit PRBC ordered on 04/19 as the patient does have a positive antibody screen requiring a unit to be sent in from an outpatient facility; given the trend of his hemoglobin over the past 24 hours, an additional 3 units will be ordered and placed on hold serial hemoglobin check every 6 hours 3 units PRBC on hold Continue pantoprazole 40 mg IV twice daily Gastroenterology consulted; not recommending endoscopic evaluation at this time given the patient's hemodynamic stability, lack of evidence for acute bleed, as well as concern for recent pneumonia #Acute respiratory failure with hypoxia secondary to multifocal CAP With regard to the patient's presenting pneumonia, they have recovered well. The patient is noted to be immunosuppressed given their medications prescribed in the setting of previous renal transplant however there laboratory specimen thus far does not indicate significant leukopenia. Discontinue cefepime, continue ceftriaxone 2 g IV daily through 04/23 -Continue pulmonary toilet Remainder the patient's chronic medical conditions including autoimmune hemolytic anemia, heart failure with preserved ejection fraction, permanent atrial fibrillation, gastroesophageal reflux disease with Rosales's esophagus, hypothyroidism are stable at this time and we will continue their regular outpatient medications as appropriate. Admission and Anticipated Discharge Date Admission Date: April 13, 2025 Anticipated date of discharge: 04/23/25 Subjective Mr. Mandel is a 64-year-old male whose active medical conditions include stage IV CKD in the setting of previous renal transplant due to FSGS, paroxysmal atrial fibrillation, anemia of chronic disease among other chronic medical conditions who presented to [facility] on 04/13 and was subsequently admitted for multifocal pneumonia with a superimposed acute kidney injury. Overnight the patient was noted to be more lethargic than previous, though still easily arousable, oriented; this morning the patient has no specific complaints or concerns, no new symptomatology or worsening shortness of breath compared to 04/19. He does note that nursing staff has told him his stools have been particularly dark and tarry though he does not note any significant GI distress or changes. Review of Systems Review of Systems: Constitutional: denies fevers, chills, malaise, fatigue Cardiovascular: denies angina, palpitations, syncope, peripheral edema, orthopnea Pulmonary: denies cough, dyspnea on exertion, pleuritic chest pain Gastrointestinal: denies nausea, emesis, dysphagia, regurgitation, dyspepsia, abdominal distension, constipation, diarrhea Neurologic: denies focal weakness, paresthesias or numbness Integumentary: denies new or developing rashes or lesions Physical Exam Physical Exam: General: Adult male in no acute distress Vital Signs: Reviewed HEENT: Normocephalic, atraumatic; moist mucous membranes Pulmonary: symmetric chest wall excursion; diminished air movement in the right caudal posterior and caudal middle lobe, remaining lung acuna are clear to auscultation Cardiovascular: Regular rate and rhythm with no murmurs, rubs, or gallops; S1 and S2 normal; bilateral radial and posterior tibial pulses 2+; trace bilateral lower extremity edema distal of the mid leg; left upper extremity AV fistula has Diminished thrill, still audible bruit, there is a large area of surrounding ecchymosis without a palpable hematoma secondary to infiltration on 04/18; right femoral hemodialysis temporary catheter appears well at this time, no tenderness around the site of placement, femoral pulse 2+ without a palpable surrounding hematoma Gastrointestinal: Soft, protuberant; nontender to palpation throughout the abdomen; normal frequency and pitch of bowel sounds throughout; no palpable masses or organomegaly Neurologic: CN II-XII grossly intact Skin: Left anterior neck has an area of approximately 5 cm in diameter that is nontender with ecchymosis, known to be site of attempted IJ temporary dialysis catheter placement on 04/19 Results & Data Results & Data Vital Signs (Past 12 Hours) Vital Signs Temp Pulse Pulse Resp BP BP Pulse Ox 04/20/25 08:00 36.5 C 78 18 105/60 97 04/20/25 07:50 36.6 C 85 17 84/59 L 100 04/20/25 06:50 100 04/20/25 06:49 36.6 C 86 20 93/69 L 100 04/20/25 06:20 36.6 C 85 20 96/47 L 100 04/20/25 06:05 36.6 C 86 20 93/53 L 100 04/20/25 06:05 36.6 C 86 20 93/53 L 100 04/20/25 05:41 36.6 C 85 20 87/56 L 100 04/20/25 03:49 04/20/25 03:43 36.7 C 86 20 94/53 L 96 04/20/25 00:15 36.8 C 86 18 92 04/19/25 22:00 04/19/25 21:49 67 Pulse Ox O2 Del Method O2 Del Method O2 Flow Rate 04/20/25 08:00 Room Air 04/20/25 07:50 2 04/20/25 06:50 2 04/20/25 06:49 2 04/20/25 06:20 2 04/20/25 06:05 2 04/20/25 06:05 2 04/20/25 05:41 04/20/25 03:49 93 Room Air 04/20/25 03:43 Room Air 04/20/25 00:15 Room Air 04/19/25 22:00 Room Air 04/19/25 21:49 PG Care Time/CCT Total # of Minutes Spent Total Time Spent with Patient: Total time spent is greater than 50% in coordination of care (as documented) at patient's floor/unit and/or counseling patient: Coding Level of Care Code 82069 SUB INP/OBS CARE MIN Diagnoses ESRD on hemodialysis N18.6; Z99.2 Anemia in stage 5 chronic kidney disease, not on chronic dialysis N18.5; D63.1 Chronic kidney disease stage: stage 5 (GFR < 15), not on chronic dialysis Multifocal pneumonia J18.8 Kidney transplant status, living unrelated donor Z94.0 Immunosuppression due to drug therapy D84.821 Melanotic stools K92.1 (2) Anemia in chronic renal disease Chronic kidney disease stage: stage 5 (GFR < 15), not on chronic dialysis Qualified Code(s): N18.5 - Chronic kidney disease, stage 5; D63.1 - Anemia in chronic kidney disease
--- NOTE | 2025-04-20 11:35 | Nephrology Progress Note ---
Date of Service April 20, 2025 Assessment & Plan (1) Acute kidney injury: (2) ESRD on hemodialysis: (3) Kidney transplant status, living unrelated donor: (4) Status post kidney transplant: (5) Warm autoimmune hemolytic anemia: (6) Multifocal pneumonia: (7) Pulmonary edema: Plan 64 y o m with acute kidney injury with history of renal transplant and repeated episodes of acute kidney injury for last 1 year and lately baseline creatinine staying around 2.5-3.0 mg/dl, admitted with multifocal pneumonia and KRISSY. Kidney function progressively worsened and became oliguric started on dialysis and now 3 hours dialysis 2 days ago. However since then did not have dialysis for the last 2 days because of AV fistula with multiple infiltration. Had temporary femoral catheter on 04/19/25 and had HD for 4 h, 3.8 L UF Hemoglobin 6.2. BP low, remain anuric despite Bumex. --HD now, continue Bumex 4 mg IV BID for now. UF as tolerated --Midodrine 10 gm prior to HD --plan for tunneled dialysis catheter tomorrow --dose meds for eGFR <10 Admission and Anticipated Discharge Date Admission Date: April 13, 2025 Rocio Naik was seen and evaluated this morning. Has was quite somnolent but woke up and answer simple yes and no. Blood pressure has been low but he remains anuric and volume overloaded. Hemoglobin dropped to 6.2 and currently getting blood transfusion. Review of Systems Review of Systems: Detailed review of system was not possible because of mental status. Physical Exam Constitutional: WD/WN, vitals as above + ill appearing and + edematous Eyes: + anicteric sclerae Respiratory: + respiratory distress Auscultation: + crackles Cardiovascular: Rate/Rhythm: regular rate and regular rhythm Heart Sounds: normal S1 and normal S2 Extremities: + edema (1 to 2 + b/l lower extremity edema.) and + AV fistula (left RC AVF with thrill and Bruit) Skin: + turgor decreased, + dry skin and + ecc hymosis Neurologic: + focal motor deficit Somnolent Psychiatric: Orientation: alert and oriented x 3 Affect: euthymic affect Results & Data Vital Signs (Past 12 Hours) Vital Signs Temp Pulse Pulse Resp BP BP Pulse Ox 04/20/25 08:50 36.5 C 78 14 89/58 L 100 04/20/25 08:00 36.5 C 78 18 105/60 97 04/20/25 07:50 36.6 C 85 17 84/59 L 100 04/20/25 06:50 100 04/20/25 06:49 36.6 C 86 20 93/69 L 100 04/20/25 06:20 36.6 C 85 20 96/47 L 100 04/20/25 06:05 36.6 C 86 20 93/53 L 100 04/20/25 06:05 36.6 C 86 20 93/53 L 100 04/20/25 05:41 36.6 C 85 20 87/56 L 100 04/20/25 03:49 04/20/25 03:43 36.7 C 86 20 94/53 L 96 04/20/25 00:15 36.8 C 86 18 92 Pulse Ox O2 Del Method O2 Del Method O2 Flow Rate 04/20/25 08:50 2 04/20/25 08:00 Room Air 04/20/25 07:50 2 04/20/25 06:50 2 04/20/25 06:49 2 04/20/25 06:20 2 04/20/25 06:05 2 04/20/25 06:05 2 04/20/25 05:41 04/20/25 03:49 93 Room Air 04/20/25 03:43 Room Air 04/20/25 00:15 Room Air PG Care Time/CCT Total # of Minutes Spent Total Time Spent with Patient: Total time spent is greater than 50% in coordination of care (as documented) at patient's floor/unit and/or counseling patient: Coding Level of Care Code 46286 SUB INP/OBS CARE 2/35MIN Diagnoses Acute kidney injury N17.9 ESRD on hemodialysis N18.6; Z99.2 Kidney transplant status, living unrelated donor Z94.0 Status post kidney transplant Z94.0 Warm autoimmune hemolytic anemia D59.11 Multifocal pneumonia J18.8 Pulmonary edema J81.1
[2025-04-20 16:46] LABS: Hematocrit (blood only) 23.8 % (42.0-52.0); Hemoglobin 7.7 g/dl (14.0-18.0)
[2025-04-20 22:55] LABS: Base Excess VBG 1.5 mEq/L; HCO3 VBG 29 mmol/L; Oxygen Saturation VBG 89.8 %; PCO2 VBG 54 mmHg (38-50); PO2 VBG 55 mmHg; pH VBG 7.33 (7.36-7.41)
[2025-04-20 22:58] LABS: Hematocrit (blood only) 24.3 % (42.0-52.0); Hemoglobin 7.5 g/dl (14.0-18.0); Immature Granulocytes # (auto) 0.23 K/uL (0.01-0.20); Immature Granulocytes % (auto) 1.6 %; Mean Corpuscular Hemoglobin 33.3 pg (25.0-34.0); Mean Corpuscular Volume 108.0 fL (80.0-100.0); Platelet Count 150 K/uL (130-400); RDW Standard Deviation 71.7 fL (36.4-46.3); Red Blood Count 2.25 M/uL (4.70-6.10); White Blood Count 14.15 K/ul (4.8-10.8)
[2025-04-20 23:16] LABS: Anisocytosis Present; Basophilic Stippling 1+; Polychromasia 2+
[2025-04-20 23:17] LABS: Alanine Aminotransferase 14.0 U/L (7-52); Albumin Globulin Ratio 1.5 (0.9-2); Alkaline Phosphatase 77.0 U/L (34-104); Anion Gap 12.0 (3-11); Bilirubin,Total 2.4 mg/dl (0.2-1.0); Blood Urea Nitrogen 34.0 mg/dl (6-23); Calcium 8.6 mg/dl (8.6-10.3); Carbon Dioxide 26.0 mmol/L (21-32); Chloride 101.0 mmol/L (98-107); Creatinine Clr Calc Pharmacy 17.9 ml/min; Globulin 2.2 gm/dl (2.5-4.0); Glucose 77.0 mg/dl (70-99(Fasting)); Magnesium 1.8 mg/dl (1.7-2.4); Potassium 3.6 mmol/L (3.5-5.1); Sodium 139.0 mmol/L (136-145); Total Protein 5.6 gm/dl (6.0-8.3)
--- NOTE | 2025-04-20 23:34 | CT Scan Report ---
Exam(s): CT HEAD Without Contrast EXAM: CT Head Without Intravenous Contrast CLINICAL HISTORY: Reason for exam: progressive lethargy, more difficult to arouse. TECHNIQUE: Axial computed tomography images of the head/brain without intravenous contrast. CTDI is 37.78 mGy and DLP is 625.8 mGy-cm. Automated exposure control was utilized for the study. A dose lowering technique was utilized adhering to the principles of ALARA. COMPARISON: No relevant prior studies available. FINDINGS: This study is limited secondary to motion artifact. Brain: Moderate edema in the left occipital lobe. Tiny dystrophic calcifications within the right frontal lobe perivascular spaces. No hemorrhage. No significant white matter disease. Empty sella with enlarged diaphragmatic sella. Ventricles: Unremarkable. No ventriculomegaly. Bones/joints: Unremarkable. No acute fracture. Soft tissues: Unremarkable. Sinuses: Unremarkable as visualized. No acute sinusitis. Mastoid air cells: Unremarkable as visualized. No mastoid effusion. IMPRESSION: There is moderate edema in the left occipital lobe concerning for acute/subacute ischemic injury. Recommend MRI of the brain for further evaluation. Communications: Verify Receipt Electronically signed by: Yamile Aguilar MD 04/20/25 23:33 PM
--- NOTE | 2025-04-21 00:07 | Communication Note ---
Date of Service: April 21, 2025 Notified by RN shortly after shift change that patient less responsive, would open eyes to verbal/physical stimuli but otherwise minimal verbal or motor ac tivity. Patient hypotensive, though this is consistent with BP throughout current hospital stay. Vitals otherwise stable. Patient seen at bedside - satting at 100% on 2L O2 but breathing appears lab ored, auscultation notable for diffuse crackles, poor air movement. Patient appeared to understand questions (though sometimes had to be asked 2 or 3 times) but struggled to respond, would occasionally mumble a couple unintelligible words but required frequent restimulation to keep his eyes from closing. Attempted brief neuro exam, severely limited by lack of patient participation. Overall picture similar to previous night but certainly less responsive tonight. Presentation more suspicious for encephalopathy rather than ischemic/hemorrhagic event. Labs and imaging ordered: Labs reviewed, no acute changes that would explain change in mentation. CT head w/o contrast: moderate edema in left occipital lobe concerning for acute/subacute ischemic injury. Pt not a TNK candidate (unknown last known well, suspicion for upper GI bleed). Clinical picture incongruent with an occipital infarct. Patient reevaluated, not able to participate enough for visual field testing. Case discussed with trombone slide assembler neurologist, Dr. Saucedo. After a brief summary, he agrees that this would not explain lethargy/decreased responsiveness, may be more of an incidental finding. That said, patient does have h/o pA-fib, not on anticoagulation d/t concern for active bleed. He has also been persistently hypotensive, at risk for watershed ischemic event. Neurology consult placed, MRI/MRA brain w/o contrast and carotid dopplers ordered for further evaluation. No acute recommendations - pt already on daily aspirin, Plavix on allergy list (unspecified reaction).
[2025-04-21] MEDS: MIDODRINE HCL 10 MG TAB PO ONE (03:27)
[2025-04-21] MEDS: ALBUMIN 25% 12.5 GM/50 ML VIAL IV ONE (03:36)
[2025-04-21] MEDS ORDERED: SODIUM CHLORIDE 0.9% 100 ML IV PRN (04:13)
--- NOTE | 2025-04-21 08:25 | Ultrasound Report ---
EXAM: US carotid doppler BI CLINICAL HISTORY: Acute/subacute ischemic stroke. TECHNIQUE: Ultrasound examination of the carotid arteries was performed in real time and duplex. One or more of the following were performed: spectral analysis, resistive index, waveform analysis, and pulsed Doppler. The examination was technically difficult due to patient motion and vocalization, which may limit the accuracy of the measurements. COMPARISON: None. FINDINGS: Doppler Profile: Vessel Right (PSV/EDV cm/sec) Left (PSV/EDV cm/sec) Common Carotid Artery (CCA) -92.9/25.8 -162.6/34.8 Bulb -91.9/34.1 -114.7/28.4 Internal Carotid Artery (ICA) - Proximal -85.4/35.5 -146.6/47.6 Internal Carotid Artery (ICA) - Distal -89.3/26.9 -149.8/54.0 External Carotid Artery (ECA) -84.7/16.8 -95.5/9.3 Vertebral Artery (VA) -26.3/10.3 -69.6/17.7 Right ICA/CCA Ratio 1.2 Left ICA/CCA Ratio 1.3 Plaque Characterization: Atherosclerotic plaque is noted bilaterally, with calcified kissing plaques seen in both carotid bulbs. Peak systolic velocities in the left internal carotid artery are borderline elevated up to 150 cm/s, but the ICA/CCA ratio is normal. Vertebral Arteries: Normal flow noted in the vertebral arteries bilaterally. No evidence of vertebral artery stenosis or subclavian steal phenomenon. IMPRESSION: 1. Elevated PSV of the left ICA, denoting Moderate left ICA stenosis 50-69% stenosis according to NASCET criteria. 2. Mild bilateral atherosclerotic plaque disease. 3. The examination was technically difficult due to patient motion and vocalization, which may limit the accuracy of the measurements. 4. Clinical correlation with symptoms and further evaluation as indicated. Routine follow-up or additional imaging may be recommended based on clinical presentation or if significant plaque is identified. NASCET Criteria for carotid stenosis: Degree of Stenosis Measurement Criteria (Angiography) Peak Systolic Velocity (PSV) End Diastolic Velocity (EDV) PSV Ratio ICA/CCA Clinical Indications for Surgery Normal No narrowing 125 cm/s 40 cm/s 2.0 Not indicated for surgery Mild Stenosis 50% narrowing of the carotid artery 125 cm/s 40 cm/s 2.0 Generally, not indicated for surgery Moderate Stenosis 50% to 69% narrowing of the carotid artery 125 - 230 cm/s 40 - 100 cm/s 2.0 - 4.0 May be considered for surgery based on individual factors Severe Stenosis 70% to 99% narrowing of the carotid artery 230 cm/s 100 cm/s 4.0 Recommended for surgery in symptomatic patients Total Occlusion 100% blockage of the carotid artery No flow detected No flow detected Not applicable Surgery is not typically performed due to complete blockage Electronically signed by Roosevelt Rojas 04-21-2025 08:25 AM
--- NOTE | 2025-04-21 08:53 | Hospitalist Progress Note ---
Date of Service April 21, 2025 Assessment & Plan (1) ESRD on hemodialysis: (2) Anemia in chronic renal disease: (3) Multifocal pneumonia: (4) Kidney transplant status, living unrelated donor: (5) Immunosuppression due to drug therapy: (6) Melanotic stools: Plan In summary this is a 64-year-old male initially admitted for multifocal pneumonia with acute respiratory failure complicated by and acute kidney injury. The patient's symptoms associated with their present pneumonia have mostly resolved. During the day on 04/19 the patient developed recurrent melanotic stools without hematochezia. Renal function continues to be unrecovered. Overnight 04/20 the patient became more lethargic, a subsequent CT head without contrast was obtained which revealed a new area of subacute/acute left occipital lobe edema. #TIA // Acute vision loss Overnight on 04/20 the patient had increased lethargy which led to a CT head without contrast being obtained, at that time a neurologic assessment was not fully performed but the imaging did reveal subacute/acute left occipital edema; on the morning of 04/21 during my assessment the patient expressed difficulty with visual acuity, his last known well with respect to this neurologic change was at approximately 1200 hrs. on 04/20 when this provider had last assessed the patient; comorbid risk factors include paroxysmal atrial fibrillation (last noted on telemetry 04/19), acute on chronic anemia requiring blood transfusion within the past 48 hours, ESRD establishing on hemodialysis, peripheral arterial disease; ABCD2 of 3, NIHSS 6; at this time there is concern for the possibility of TIA/CVA given patient's new neurologic deficit and imaging findings on CT head without contrast -Maintain routine lunchroom monitor - no additional antiplatelet therapy at this time given the patient's suspected acute bleed - the patient is established on anticoagulation with Eliquis in the setting of paroxysmal atrial fibrillation; given the patient's deficit, comorbid condition requiring anticoagulation we will presume this at approximately 6 to 8 days post onset of their symptoms and repeat head CT without contrast to rule out any hemorrhagic conversion prior to resumption; further recommendations pending from neurology -Non-tPA eligible due to active bleed therefore allow permissive hypertension; nursing to notify attending physician if systolic greater than 200 mmHg and/or diastolic greater than 110 mmHg within first 48 hours of symptom onset - In the absence of prescribed warfarin, consideration of the patient's age, and family history absent of thrombophilia we will not pursue coagulability testing at this time - MRI brain without contrast pending - no clear indication for continuous IV fluids at this time but the patient is hypotensive, the risk for cerebral edema is present and dilutional effect with the patient's blood count; continue blood transfusion as discussed below Neurology consulted #Anemia of chronic disease i/s/o renal failure // Melanotic stool Chronic condition with baseline hemoglobin in the range of 9.0-9.5; hemoglobin trend 7.5, 7.7, 6.2, 6.4; the patient is now s/p 3 Units PRBC with pending hgb reassessment on 04/21 - Pending hemoglobin reassessment Continue pantoprazole 40 mg IV twice daily Gastroenterology consulted; not recommending endoscopic evaluation at this time given the patient's hemodynamic stability, lack of evidence for acute bleed, as well as concern for recent pneumonia #Acute on chronic kidney injury, progressed to ESRD in the setting of previous renal transplant With regard to the patient's renal function, this was discussed with nephrology on 04/18 that there is concern that the patient's renal transplant will not be able to fully recover after this hospitalization, and anticipate need for outpatient hemodialysis. The patient has a previously developed left upper extremity AV fistula which can be accessed, unfortunately was infiltrated on 04/18 during attempted dialysis. The patient had a temporary right femoral hemodialysis catheter placed on 04/19 due to need for anticipated dialysis, on the morning of 04/21 this is noted to have new bleeding which occurred sometime overnight 04/20 - Pending US assessment of femoral HD catheter site - Nephrology consulted #Acute respiratory failure with hypoxia secondary to multifocal CAP With regard to the patient's presenting pneumonia, they have recovered well. The patient is noted to be immunosuppressed given their medications prescribed in the setting of previous renal transplant however there laboratory specimen thus far does not indicate significant leukopenia. Increased respiratory effort on 04/21 with abdominal muscle recruitment, ABG pending Discontinue cefepime, continue ceftriaxone 2 g IV daily through 04/23 -Continue pulmonary toilet Remainder the patient's chronic medical conditions including autoimmune hemolytic anemia, heart failure with preserved ejection fraction, permanent atrial fibrillation, gastroesophageal reflux disease with Rosales's esophagus, hypothyroidism are stable at this time and we will continue their regular outpatient medications as appropriate. Admission and Anticipated Discharge Date Admission Date: April 13, 2025 Subjective Mr. 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 Overnight the patient was noted to be more lethargic than previous, due to his medical condition a CT head without contrast was obtained which revealed edema in the left occipital lobe. This morning the patient is arousable to verbal stimuli, though unable to maintain focus for more than a minute or so. He expresses difficulty with vision, but is unable to provide further detail at this time. Review of Systems Review of Systems: Constitutional: denies fevers, chills Cardiovascular: denies angina, palpitations, syncope, peripheral edema, orthopnea Pulmonary: endorses intermittent productive cough; denies hemoptysis, pleuritic chest pain Gastrointestinal: denies nausea, emesis, dysphagia, regurgitation, dyspepsia, abdominal distension, constipation, diarrhea Neurologic: endorses visual acuity changes without further detail; denies focal weakness, paresthesias or numbness Integumentary: denies new or developing rashes or lesions Physical Exam Physical Exam: General: Adult male in no acute distress Vital Signs: Reviewed; MAP in the range of 60-75 mmHg for the past 12 hours, this morning is tachycardic with heart rate in the range of 100-105; saturating 100% on 2L via NC HEENT: Normocephalic, atraumatic; PERRL, EOMI; unable to participate in visual field confrontation; tacky mucous membranes; posterior oropharyngeal mucous accumulation which is able to be cleared by the patient's cough Pulmonary: symmetric chest wall excursion; air movement is present throughout all lung acuna but associated with soft crackles in the anterior and posterior acuna Cardiovascular: Regular rate and rhythm with no murmurs, rubs, or gallops; S1 and S2 normal; bilateral radial and posterior tibial pulses 2+; trace bilateral lower extremity edema distal of the mid leg; left upper extremity AV fistula has diminished thrill, still audible bruit, there is a large area of surrounding ecchymosis without a palpable hematoma; right femoral hemodialysis temporary catheter has a moderate volume of coagulated blood beneath the dressing with a pressure bandage placed from the overnight team, no tenderness around the site of placement, right lower extremity posterior tibial and popliteal pulse 2+ Gastrointestinal: Soft, protuberant; nontender to palpation throughout the abdomen; normal frequency and pitch of bowel sounds throughout; no palpable masses or organomegaly Neurologic: unable to count fingers with binocular vision, patient was unable to participate in monocular vision testing; CN II-XII grossly intact with limited patient participation Skin: Left anterior neck has an area of approximately 5 cm in diameter that is nontender with ecchymosis, known to be site of attempted IJ temporary dialysis catheter placement on 04/19 Results & Data Results & Data Vital Signs (Past 12 Hours) Vital Signs Temp Pulse Pulse Resp BP BP Pulse Ox 04/21/25 08:40 37.3 C 103 H 20 97 04/21/25 08:00 36.6 C 94 H 20 86/50 L 95 04/21/25 07:50 37.3 C 106 H 20 87/50 L 97 04/21/25 06:15 37.1 C 94 H 16 91/52 L 100 04/21/25 05:50 36.6 C 100 H 20 86/50 L 100 04/21/25 05:45 37.2 C 96 H 18 106/58 L 100 04/21/25 05:15 37.2 C 105 H 18 90/69 L 100 04/21/25 05:00 37.5 C 106 H 16 110/66 100 04/21/25 04:45 37.0 C 100 H 30 H 84/65 L 100 04/21/25 03:58 74/60 L 04/21/25 03:42 04/21/25 03:12 36.5 C 96 H 18 77/51 L 92 04/20/25 23:18 36.7 C 97 H 20 110/69 100 04/20/25 22:45 92 H 04/20/25 21:40 110/61 04/20/25 21:19 93/64 L 04/20/25 21:12 78/50 L 04/20/25 21:12 78/55 L 04/20/25 21:02 80/57 L Pulse Ox O2 Del Method O2 Del Method O2 Flow Rate O2 Flow Rate 04/21/25 08:40 1 04/21/25 08:00 Nasal Cannula 2 04/21/25 07:50 1 04/21/25 06:15 2 04/21/25 05:50 2 04/21/25 05:45 2 04/21/25 05:15 2 04/21/25 05:00 2 04/21/25 04:45 2 04/21/25 03:58 04/21/25 03:42 98 Nasal Cannula 2 04/21/25 03:12 Nasal Cannula 2 04/20/25 23:18 Nasal Cannula 2 04/20/25 22:45 04/20/25 21:40 04/20/25 21:19 04/20/25 21:12 04/20/25 21:12 04/20/25 21:02 PG Care Time/CCT Total # of Minutes Spent Total Time Spent with Patient: Total time spent is greater than 50% in coordination of care (as documented) at patient's floor/unit and/or counseling patient: Coding Level of Care Code 74611 SUB INP/OBS CARE 3/50MIN History Comprehensive Exam Comprehensive Diagnoses ESRD on hemodialysis N18.6; Z99.2 Anemia in stage 5 chronic kidney disease, not on chronic dialysis N18.5; D63.1 Chronic kidney disease stage: stage 5 (GFR < 15), not on chronic dialysis Multifocal pneumonia J18.8 Kidney transplant status, living unrelated donor Z94.0 Immunosuppression due to drug therapy D84.821 Melanotic stools K92.1 (2) Anemia in chronic renal disease Chronic kidney disease stage: stage 5 (GFR < 15), not on chronic dialysis Qualified Code(s): N18.5 - Chronic kidney disease, stage 5; D63.1 - Anemia in chronic kidney disease
--- NOTE | 2025-04-21 09:20 | Consultation ---
Date of Consultation April 21, 2025 Assessment & Plan (1) ESRD on hemodialysis: Pt with hx of renal transplant in 2009 and now with KRISSY and fluid overload requiring HD access. LUE AVF with thrill/bruit, however, unable to cannulate without multiple severe infiltrations. Will order HD access US to eval. R fem oral vein temp line access functioning poorly and bleeding from site. Will plan on permcath insertion in OR tomorrow, pending further eval today by medicine for AMS. History of Present Illness Reason for Consultation: KRISSY, need permcath Attending Physician: Chris Clayton DO History of Present Illness 64 yo m with hx of DVT, a fib, ESRD s/p renal transplant, NSTEMI, HFpEF, thoracic aa, pardo's esophagus, hemolytic anemia, admitted with multifocal pneumonia and GI bleed, seen in consultation today for HD access d/t KRISSY. Pt has a L forearm avf, however, this was infiltrated multiple times in attempt to use it. He has a R groin temporary HD catheter placed by the business records manager which is running poorly and bleeding from the exit site. Pt developed AMS overnight and is currently unable to answer questions. Allergies Allergy/AdvReac Type Severity Reaction Status Date / Time clopidogrel [From Plavix] Allergy Unknown Unknown Verified 03/14/25 10:20 Abzptyl-DVS-CqM Reductase AdvReac Intermediate myalgias Verified 03/14/25 10:20 Inhibitor [Mnmacyh-Ypa-Piz Reductase Inhibitor] Home Medications Medication Instructions Recorded Confirmed Type mycophenolate mofetil 250 mg 500 mg (2 x 250 mg) PO BID #360 05/29/20 04/13/25 Rx capsule caps amoxicillin 500 mg capsule 2,000 mg PO DIRECTED PRN PRIOR 07/29/20 04/13/25 History TO DENTAL PROCEDURES pantoprazole 40 mg tablet,delayed 40 mg PO BID #180 tabs 12/06/23 04/13/25 Rx release calcium carbonate 500 mg PO QAM 01/21/24 04/13/25 History ferrous sulfate 325 mg (65 mg 325 mg PO BID #60 tabs 02/05/24 04/13/25 Rx iron) tablet acyclovir 400 mg tablet 400 mg PO BID 05/07/24 04/13/25 History ondansetron 4 mg disintegrating 4 mg PO Q8 PRN nausea #20 tabs 05/22/24 04/13/25 Rx tablet magnesium oxide 500 mg PO BID 08/09/24 04/13/25 History albuterol sulfate 90 mcg/actuation 2 inh inhalation Q6H PRN shortness 08/25/24 04/13/25 Rx aerosol inhaler of breath or wheezing #8.5 grams danazol 200 mg capsule 200 mg PO BID 09/13/24 04/13/25 History levothyroxine 125 mcg tablet 125 mcg PO QAM #90 tabs 09/27/24 04/13/25 Rx acetaminophen 325 mg tablet 650 mg PO Q4H PRN Pain 11/14/24 04/13/25 History aspirin 81 mg tablet,delayed 81 mg PO DAILY 11/14/24 04/13/25 History release (Adult Aspirin Regimen) cholecalciferol (vitamin D3) 25 25 mcg PO DAILY 11/14/24 04/13/25 History mcg (1,000 unit) capsule vitamin B complex-vitamin C-folic 1 tab PO BID 11/14/24 04/13/25 History acid 0.8 mg tablet (Renal Vitamin) allopurinol 300 mg tablet 300 mg PO DAILY 12/25/24 04/13/25 History bumetanide 1 mg tablet 1 mg PO BID #70 tabs 01/23/25 04/13/25 Rx folic acid 1 mg tablet 1 mg PO BID #180 tabs 02/03/25 04/13/25 Rx tacrolimus 0.5 mg capsule, 0.5 mg PO Q12H Dx: Z94.0 kidney 02/05/25 04/13/25 Rx immediate-release transplant #60 caps apixaban 5 mg tablet (Eliquis) 5 mg PO BID #180 tabs 02/19/25 04/13/25 Rx prednisone 5 mg tablet 5 mg PO QAM #90 tabs 03/14/25 04/13/25 Rx metoprolol succinate 50 mg 50 mg PO BID #90 tabs 03/17/25 04/13/25 Rx tablet,extended release 24 hr Patient History Medical History Infection of finger Hx of sepsis due to pneumonia, ~07/26/24, hospitalized at [facility] Erosive esophagitis hx, EGD 08/2023 History of Clostridioides difficile infection dx 09/14/24, [facility]; 09/24/24, per pt, "will be finishing abx in next day or so" CKD (chronic kidney disease) f/u nd nephrology Bilateral leg edema "has some, has gotten better" Hx of adrenal insufficiency Hx of right bundle branch block f/u nd cardiology History of recent hospitalization pt admitted to [facility] multiple times over 2023 (01/21/24, 05/2024-sx, 07/13/24, 07/26/24, 08/22/24, 08/24/24); most recent visit 08/24/24 per records "63-year-old male with past medical history significant for HFpEF, A-fib, ESRD, WAHA, and additional chronic medical conditions who is presenting for sudden onset of chest pain with shortness of breath after exertion following eating out at [employer] followed by increased activity with cutting wood and developed chest pain. CXR with evidence for volume overload and was provided IV Lasix last nitro on admission with improvement/resolution of symptoms. Also with KRISSY that was likely due to hypotension/hypoperfusion and increased diuretic use recently; improving. Also with A-fib RVR, suspect due to increased salt load/increased activity/untreated CHERELLE." Rhinovirus infection Hypomagnesemia Hx of gout Hx of congestive heart failure Sleep apnea, obstructive no device Hypocalcemia hx Weakness Atrial fibrillation with rapid ventricular response controlled w/ metoprolol; f/u nd cardiology Hypotension pt unaware? Heart failure with preserved ejection fraction hx; f/u nd cardiology Hypomagnesemia hx History of non-ST elevation myocardial infarction (NSTEMI) entered into chart 01/2023 Osteoporosis Hypothyroidism Hyperlipidemia Hx of esophageal reflux controlled, stable per pt 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 Abdominal aortic aneurysm 4.9 cm on 01/2023 chest CTA; monitoring History of colon polyps Retroperitoneal mass lesion biopsy negative for malignancy 05/2022 per transplant record 03/17/23 Pneumonia hx, ~08/23/24 Adrenal nodule monitored by PCP Arthritis On prednisone therapy Pardo's esophagus with esophagitis Atrial flutter hx 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 Thoracic ascending aortic aneurysm 4.[address] 01/19/24 Hypertension controlled, stable per pt Limb alert care status left arm restriction History of blood transfusion ~07/2024 Hx of herpetic maria History of COVID-19 07/2020- covid pneumonia, hospitalized; resolved History of renal dialysis prior to kidney transplant; has dialysis fistula left arm History of CVA (cerebrovascular accident) 2008, mild memory changes Surgical History History of total right hip arthroplasty Hx of kidney transplant 02/2010- [place] History of esophagogastroduodenoscopy (EGD) Hx of cholecystectomy Hx of exploratory laparotomy History of colonoscopy Family History Grandmother (Maternal) Alzheimer disease Mother Depression Denies family history of Ovarian cancer Prostate cancer Diabetes Heart disease Myocardial infarction Breast cancer Lung cancer COPD (chronic obstructive pulmonary disease) Colorectal cancer Hypertension Stroke Social History Smoking Status: Never smoker Second Hand Exposure: No; Do You Dip or Chew Tobacco: No; Hx Alcohol Use: No Hx Substance Use: No 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: Lithuanian Communication Ability: Effective Visual Impairment: No Limitations Hearing Ability: Normal 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 Beliefs That Will Affect Care: None marital status: Current Living Situation: Spouse current occupational status: employed current occupation: [employer] How many Children do You have: 1 Feels Safe at Home: Yes Childhood Exposure to Second-Hand Smoke: No Dental Care, Regularly: Yes Seatbelt Use: sometimes Sunscreen Use: No Assistive Devices: Cane and Walker Review of Systems Review of Systems: Unobtainable due to cognitive status Physical Exam Constitutional: + obese; + uncooperative and not in dist ress agitated Neck: trachea midline L neck edema/ecchymosis Respiratory: Auscultation: + diminished lung sounds, + crackles and + rales; + lungs not clear to auscultation Cardiovascular: Rate/Rhythm: + tachycardic Vessels: dorsalis pedis pulses present; + abnormal peripheral pulses Extremities: normal capillary refill and + AV fistula (L forearm +thrill/bruit, ecchymosis) Gastrointestinal (Abdomen): Inspection/Auscultation: abdomen normal to inspection and normal bowel sounds Percussion/Palpation: abdomen soft Skin: no rashes, warm and dry Neurologic: moves all extremities and + obtunded (unable to answer questions or follow commands) Psychiatric: Orientation: + not alert and + not oriented x 3 Eye Contact: not poor eye contact (eyes closed) Results & Data Vital Signs (Past 12 Hours) Vital Signs Temp Pulse Pulse Resp BP BP Pulse Ox 04/21/25 08:59 87/50 L 04/21/25 08:40 37.3 C 103 H 20 97 04/21/25 08:00 36.6 C 94 H 20 86/50 L 95 04/21/25 07:50 37.3 C 106 H 20 87/50 L 97 04/21/25 06:15 37.1 C 94 H 16 91/52 L 100 04/21/25 05:50 36.6 C 100 H 20 86/50 L 100 04/21/25 05:45 37.2 C 96 H 18 106/58 L 100 04/21/25 05:15 37.2 C 105 H 18 90/69 L 100 04/21/25 05:00 37.5 C 106 H 16 110/66 100 04/21/25 04:45 37.0 C 100 H 30 H 84/65 L 100 04/21/25 03:58 74/60 L 04/21/25 03:42 04/21/25 03:12 36.5 C 96 H 18 77/51 L 92 04/20/25 23:18 36.7 C 97 H 20 110/69 100 04/20/25 22:45 92 H 04/20/25 21:40 110/61 04/20/25 21:19 93/64 L 04/20/25 21:12 78/50 L 04/20/25 21:12 78/55 L Pulse Ox O2 Del Method O2 Del Method O2 Flow Rate O2 Flow Rate 04/21/25 08:59 04/21/25 08:40 1 04/21/25 08:00 Nasal Cannula 2 04/21/25 07:50 1 04/21/25 06:15 2 04/21/25 05:50 2 04/21/25 05:45 2 04/21/25 05:15 2 04/21/25 05:00 2 04/21/25 04:45 2 04/21/25 03:58 04/21/25 03:42 98 Nasal Cannula 2 04/21/25 03:12 Nasal Cannula 2 04/20/25 23:18 Nasal Cannula 2 04/20/25 22:45 04/20/25 21:40 04/20/25 21:19 04/20/25 21:12 04/20/25 21:12
[2025-04-21 09:41] LABS: Hematocrit (blood only) 26.3 % (42.0-52.0); Hemoglobin 8.1 g/dl (14.0-18.0); Mean Corpuscular Hemoglobin 33.5 pg (25.0-34.0); Mean Corpuscular Volume 108.7 fL (80.0-100.0); Platelet Count 147 K/uL (130-400); RDW Standard Deviation 73.6 fL (36.4-46.3); Red Blood Count 2.42 M/uL (4.70-6.10); White Blood Count 15.53 K/ul (4.8-10.8)
[2025-04-21 09:42] LABS: iSTAT Art Bld Gas Base Excess 0.0 meg/L (-9-1.8)
--- NOTE | 2025-04-21 09:54 | Nephrology Progress Note ---
Date of Service April 21, 2025 Assessment & Plan (1) Acute kidney injury: (2) ESRD on hemodialysis: (3) Kidney transplant status, living unrelated donor: (4) Status post kidney transplant: (5) Warm autoimmune hemolytic anemia: (6) Multifocal pneumonia: (7) Pulmonary edema: Plan 64 y o m with acute kidney injury with history of renal transplant and repeated episodes of acute kidney injury for last 1 year and lately baseline creatinine staying around 2.5-3.0 mg/dl, admitted with multifocal pneumonia and KRISSY. Kidney function progressively worsened and became oliguric started on dialysis and now 3 hours dialysis 2 days ago. However since then did not have dialysis for the last 2 days because of AV fistula with multiple infiltration. Had temporary femoral catheter on 04/19/25 and had HD for 4 h, 3.8 L UF Hemoglobin >8 after prbc. Clinically declined over last 2 days with new neurological finding over night, CT showed occipital edema and concern for acute/subacute stroke. waiting on MRI --will try UF with HD this morning. Stop Bumex as anuric last 3/4 days --Midodrine 10 gm prior to HD --plan for tunneled dialysis catheter tomorrow --dose meds for eGFR <10 Admission and Anticipated Discharge Date Admission Date: April 13, 2025 Subjective Gumaro was seen and evaluated this morning. Has remains quite somnolent but answer simple yes and no. Blood pressure has been low, remains anuric and volume overloaded. Hemoglobin >[address] Over [address] CT showed occipital edema and concern for acute/subacute stroke. waiting on MRI Review of Systems Review of Systems: Detailed review of system was not possible because of mental status. Physical Exam Constitutional: WD/WN, vitals as above + ill appearing and + edematous Eyes: + anicteric sclerae Respiratory: + respiratory distress Auscultation: + crackles Cardiovascular: Rate/Rhythm: regular rate and regular rhythm Heart Sounds: normal S1 and normal S2 Extremities: + edema (1 to 2 + b/l lower extremity edema.), + vascular access device (rt femoral catheter with some bleeding at the site) and + AV fistula (left RC AVF with thrill and Bruit) Skin: + turgor decreased, + dry skin and + ecc hymosis Neurologic: Somnolent Results & Data Vital Signs (Past 12 Hours) Vital Signs Temp Pulse Pulse Resp BP BP Pulse Ox 04/21/25 08:59 87/50 L 04/21/25 08:40 37.3 C 103 H 20 97 04/21/25 08:00 36.6 C 94 H 20 86/50 L 95 04/21/25 07:50 37.3 C 106 H 20 87/50 L 97 04/21/25 06:15 37.1 C 94 H 16 91/52 L 100 04/21/25 05:50 36.6 C 100 H 20 86/50 L 100 04/21/25 05:45 37.2 C 96 H 18 106/58 L 100 04/21/25 05:15 37.2 C 105 H 18 90/69 L 100 04/21/25 05:00 37.5 C 106 H 16 110/66 100 04/21/25 04:45 37.0 C 100 H 30 H 84/65 L 100 04/21/25 03:58 74/60 L 04/21/25 03:42 04/21/25 03:12 36.5 C 96 H 18 77/51 L 92 04/20/25 23:18 36.7 C 97 H 20 110/69 100 04/20/25 22:45 92 H Pulse Ox O2 Del Method O2 Del Method O2 Flow Rate O2 Flow Rate 04/21/25 08:59 04/21/25 08:40 1 04/21/25 08:00 Nasal Cannula 2 04/21/25 07:50 1 04/21/25 06:15 2 04/21/25 05:50 2 04/21/25 05:45 2 04/21/25 05:15 2 04/21/25 05:00 2 04/21/25 04:45 2 04/21/25 03:58 04/21/25 03:42 98 Nasal Cannula 2 04/21/25 03:12 Nasal Cannula 2 04/20/25 23:18 Nasal Cannula 2 04/20/25 22:45 PG Care Time/CCT Total # of Minutes Spent Total Time Spent with Patient: Total time spent is greater than 50% in coordination of care (as documented) at patient's floor/unit and/or counseling patient: Coding Level of Care Code 10733 SUB INP/OBS CARE 2/35MIN Diagnoses Acute kidney injury N17.9 ESRD on hemodialysis N18.6; Z99.2 Kidney transplant status, living unrelated donor Z94.0 Status post kidney transplant Z94.0 Warm autoimmune hemolytic anemia D59.11 Multifocal pneumonia J18.8 Pulmonary edema J81.1
[2025-04-21 10:05] LABS: Alanine Aminotransferase 15.0 U/L (7-52); Albumin Globulin Ratio 1.4 (0.9-2); Alkaline Phosphatase 88.0 U/L (34-104); Anion Gap 13.0 (3-11); Bilirubin,Total 2.5 mg/dl (0.2-1.0); Blood Urea Nitrogen 38.0 mg/dl (6-23); Calcium 8.9 mg/dl (8.6-10.3); Carbon Dioxide 26.0 mmol/L (21-32); Chloride 100.0 mmol/L (98-107); Creatinine Clr Calc Pharmacy 14.7 ml/min; Globulin 2.4 gm/dl (2.5-4.0); Glucose 79.0 mg/dl (70-99(Fasting)); Potassium 3.7 mmol/L (3.5-5.1); Sodium 139.0 mmol/L (136-145); Total Protein 5.8 gm/dl (6.0-8.3)
[2025-04-21 10:19] LABS: INR 1.4 (0.9-1.1); Prothrombin Time 14.5 Seconds (9.0-12.0)
--- NOTE | 2025-04-21 10:47 | Ultrasound Report ---
ULTRASOUND RIGHT GROIN ARTERIAL CLINICAL HISTORY: Right femoral line. Bleeding. Assess for pseudoaneurysm. COMPARISON STUDY: No priors. FINDINGS: Real-time grayscale color Doppler and spectral Doppler ultrasound of the right groin is per formed to assess for pseudoaneurysm. No pseudoaneurysm is identified in the right groin. No fluid col lection is seen to indicate hematoma. The right common femoral artery is patent with velocities measu ring up to 52 cm/s. The right common femoral vein is patent. A right femoral approach central venous catheter is in place. IMPRESSION: No hematoma or pseudoaneurysm is identified in the right groin as clinically queried. Electronically signed by: Jay Lewis M.D. 04/21/2025 10:45 AM
--- NOTE | 2025-04-21 13:46 | Ultrasound Report ---
US hemodialysis fistula CLINICAL HISTORY: malfunctioning avf COMPARISON STUDY: No previous studies for comparison. TECHNIQUE: Grayscale, color and duplex Doppler sonography of the left upper extremity AV fistula was performed. FINDINGS: A patent left forearm AV fistula is noted. There is no evidence for thrombosis. No hematoma or other fluid collection adjacent to the AV fistula was identified. The fistula is mildly dilated. IMPRESSION: Patent left forearm AV fistula. ACT 112: Negative or not required by law. Electronically signed by: Martín Grossman M.D. 04/21/2025 1:45 PM
[2025-04-21] MEDS: ALBUMIN 25% 25 GM/100 ML VIAL IV ONE ×2 (15:23→17:32)
[2025-04-21] MEDS: MIDODRINE HCL 2.5 MG TAB PO SCH (16:10)
[2025-04-21] MEDS: ALBUMIN 5% 250 ML IV ONE (16:47)
--- NOTE | 2025-04-21 17:41 | Critical Care Consultation ---
Date of Consultation April 21, 2025 Assessment & Plan (1) Encephalopathy: (2) Abnormal CT scan, head: (3) ESRD on hemodialysis: (4) Immunosuppression due to drug therapy: (5) PAF (paroxysmal atrial fibrillation): (6) Acute on chronic heart failure with preserved ejection fraction (HFpEF): Plan Reason Critically Ill: 64-year-old male was admitted to the hospital for shortness of breath. Patient's left AV fistula was not working he had right femoral Shiley catheter put in. On the floor was found to be hypotensive. Sent to ICU for vasopressor support Past medical history: HFpEF, A-fib, hypothyroidism, s/p renal transplant, end- stage renal disease, autoimmune hemolytic anemia Neuro - [facility]: Unable to assess --Encephalopathy Multifactorial End-stage renal disease Questionable PRES syndrome MRI of the brain is pending Neurology on board CT head 04/20/2025: Moderate edema in the left occipital lobe concerning for acute/subacute ischemic injury Cardiac - -- Shock Etiology is not clear Septic versus volume depletion versus adrenal insufficiency from chronic prednisone use Continue with vasopressor support to keep MAP greater than 65 -- History of chronic hypotension Get midodrine 2.5 mg 3 times daily --A-fib On Eliquis Respiratory - -- Acute hypoxic respiratory failure Mildly hypoxic on the EKG from 04/21/2025 Etiology is multifactorial, pulmonary edema, with possible aspiration GI - -- No acute issues RENAL/LYTES - -- End-stage renal disease On hemodialysis --S/p renal transplant On prednisone 5 mg, mycophenolate 500 mg twice daily, tacrolimus 0.5 mg twice daily ENDO - -- Chronic prednisone use 5 mg on a daily basis --ICU hypoglycemia protocol HEME - -- Macrocytic anemia Monitor H&H --History of warm autoimmune hemolytic anemia On danazol as well as bortezomib ID - -- Pulmonary opacities Difficult to distinguish between pulmonary edema versus alveolar opacities Currently on Rocephin, I will change it to Zosyn Procalcitonin 0.6 on 04/12/2025 BNP 1267 On antibiotics -- DNR/DNI --Prophylaxis VTE: Eliquis GI: Pantoprazole Lines: Right femoral Shiley, peripheral, positive Puldio Diet: N.p.o. Plan: ABG 04/21/2025: 7.35/46/78 on 2 L oxy mask Will give the patient 5% of albumin Start the patient on Levophed Given that the patient is on chronic prednisone, random cortisol will be low. I will empirically give him hydrocortisone 100 mg followed by 50 mg nightly 8 Will also increase midodrine to 5 mg 3 times daily Follow-up MRI of the brain, it will be difficult given the patient is restless Antibiotics will be changed to Zosyn to cover for aerobes and gram-negative. Overall prognosis is guarded, will get palliative care to see the patient's family I have personally spent 61 minutes of critical care time in the direct management of this patient. This is a life/limb threatening event. This includes time spent evaluating patient, direct bedside care, chart review, placing orders, interpretation of diagnostic studies, discussion with consultants, patient, and family members, as well as other required patient management activities. This time is exclusive of all separately billable procedures, and teaching time and separate from and in addition to any other critical care service time. History of Present Illness Attending Physician: Chris Clayton DO History of Present Illness 64-year-old male was admitted to the hospital for shortness of breath. Patient's left AV fistula was not working he had right femoral Shiley catheter put in. On the floor was found to be hypotensive. Sent to ICU for vasopressor support Past medical history: HFpEF, A-fib, hypothyroidism, s/p renal transplant, end- stage renal disease, autoimmune hemolytic anemia At the time of examination on the floor, patient was in negative Trendelenburg position He was saturating 95 to 96% on BiPAP 30% FiO2. He was moving all extremities but not following any commands His systolic blood pressure was in the high 60s with MAP in the high 50s. He was getting 25% albumin. He just finished dialysis and 1.5 L of fluid was taken out. He felt warm to check but on checking the temperature it was 36.9 C Allergies Allergy/AdvReac Type Severity Reaction Status Date / Time clopidogrel [From Plavix] Allergy Unknown Unknown Verified 03/14/25 10:20 Cldtpyk-EDD-OkC Reductase AdvReac Intermediate myalgias Verified 03/14/25 10:20 Inhibitor [Znpvyab-Iyb-Vay Reductase Inhibitor] Home Medications Medication Instructions Recorded Confirmed Type mycophenolate mofetil 250 mg 500 mg (2 x 250 mg) PO BID #360 05/29/20 04/13/25 Rx capsule caps amoxicillin 500 mg capsule 2,000 mg PO DIRECTED PRN PRIOR 07/29/20 04/13/25 History TO DENTAL PROCEDURES pantoprazole 40 mg tablet,delayed 40 mg PO BID #180 tabs 12/06/23 04/13/25 Rx release calcium carbonate 500 mg PO QAM 01/21/24 04/13/25 History ferrous sulfate 325 mg (65 mg 325 mg PO BID #60 tabs 02/05/24 04/13/25 Rx iron) tablet acyclovir 400 mg tablet 400 mg PO BID 05/07/24 04/13/25 History ondansetron 4 mg disintegrating 4 mg PO Q8 PRN nausea #20 tabs 05/22/24 04/13/25 Rx tablet magnesium oxide 500 mg PO BID 08/09/24 04/13/25 History albuterol sulfate 90 mcg/actuation 2 inh inhalation Q6H PRN shortness 08/25/24 04/13/25 Rx aerosol inhaler of breath or wheezing #8.5 grams danazol 200 mg capsule 200 mg PO BID 09/13/24 04/13/25 History levothyroxine 125 mcg tablet 125 mcg PO QAM #90 tabs 09/27/24 04/13/25 Rx acetaminophen 325 mg tablet 650 mg PO Q4H PRN Pain 11/14/24 04/13/25 History aspirin 81 mg tablet,delayed 81 mg PO DAILY 11/14/24 04/13/25 History release (Adult Aspirin Regimen) cholecalciferol (vitamin D3) 25 25 mcg PO DAILY 11/14/24 04/13/25 History mcg (1,000 unit) capsule vitamin B complex-vitamin C-folic 1 tab PO BID 11/14/24 04/13/25 History acid 0.8 mg tablet (Renal Vitamin) allopurinol 300 mg tablet 300 mg PO DAILY 12/25/24 04/13/25 History bumetanide 1 mg tablet 1 mg PO BID #70 tabs 01/23/25 04/13/25 Rx folic acid 1 mg tablet 1 mg PO BID #180 tabs 02/03/25 04/13/25 Rx tacrolimus 0.5 mg capsule, 0.5 mg PO Q12H Dx: Z94.0 kidney 02/05/25 04/13/25 Rx immediate-release transplant #60 caps apixaban 5 mg tablet (Eliquis) 5 mg PO BID #180 tabs 02/19/25 04/13/25 Rx prednisone 5 mg tablet 5 mg PO QAM #90 tabs 03/14/25 04/13/25 Rx metoprolol succinate 50 mg 50 mg PO BID #90 tabs 03/17/25 04/13/25 Rx tablet,extended release 24 hr Patient History Medical History Infection of finger Hx of sepsis due to pneumonia, ~07/26/24, hospitalized at [facility] Erosive esophagitis hx, EGD 08/2023 History of Clostridioides difficile infection dx 09/14/24, [facility]; 09/24/24, per pt, "will be finishing abx in next day or so" CKD (chronic kidney disease) f/u de nephrology Bilateral leg edema "has some, has gotten better" Hx of adrenal insufficiency Hx of right bundle branch block f/u de cardiology History of recent hospitalization pt admitted to [facility] multiple times over 2023 (01/21/24, 05/2024-sx, 07/13/24, 07/26/24, 08/22/24, 08/24/24); most recent visit 08/24/24 per records "63-year-old male with past medical history significant for HFpEF, A-fib, ESRD, WAHA, and additional chronic medical conditions who is presenting for sudden onset of chest pain with shortness of breath after exertion following eating out at [employer] followed by increased activity with cutting wood and developed chest pain. CXR with evidence for volume overload and was provided IV Lasix last nitro on admission with improvement/resolution of symptoms. Also with KRISSY that was likely due to hypotension/hypoperfusion and increased diuretic use recently; improving. Also with A-fib RVR, suspect due to increased salt load/increased activity/untreated CHERELLE." Rhinovirus infection Hypomagnesemia Hx of gout Hx of congestive heart failure Sleep apnea, obstructive no device Hypocalcemia hx Weakness Atrial fibrillation with rapid ventricular response controlled w/ metoprolol; f/u de cardiology Hypotension pt unaware? Heart failure with preserved ejection fraction hx; f/u de cardiology Hypomagnesemia hx History of non-ST elevation myocardial infarction (NSTEMI) entered into chart 01/2023 Osteoporosis Hypothyroidism Hyperlipidemia Hx of esophageal reflux controlled, stable per pt 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 Abdominal aortic aneurysm 4.9 cm on 01/2023 chest CTA; monitoring History of colon polyps Retroperitoneal mass lesion biopsy negative for malignancy 05/2022 per transplant record 03/17/23 Pneumonia hx, ~08/23/24 Adrenal nodule monitored by PCP Arthritis On prednisone therapy Rosales's esophagus with esophagitis Atrial flutter hx 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 Thoracic ascending aortic aneurysm 4.[address] 01/19/24 Hypertension controlled, stable per pt Limb alert care status left arm restriction History of blood transfusion ~07/2024 Hx of herpetic maria History of COVID-19 07/2020- covid pneumonia, hospitalized; resolved History of renal dialysis prior to kidney transplant; has dialysis fistula left arm History of CVA (cerebrovascular accident) 2008, mild memory changes Surgical History History of total right hip arthroplasty Hx of kidney transplant 02/2010- [facility] [place] History of esophagogastroduodenoscopy (EGD) Hx of cholecystectomy Hx of exploratory laparotomy History of colonoscopy Family History Grandmother (Maternal) Alzheimer disease Mother Depression Denies family history of Ovarian cancer Prostate cancer Diabetes Heart disease Myocardial infarction Breast cancer Lung cancer COPD (chronic obstructive pulmonary disease) Colorectal cancer Hypertension Stroke Social History Smoking Status: Never smoker Second Hand Exposure: No; Do You Dip or Chew Tobacco: No; Hx Alcohol Use: No Hx Substance Use: No 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: Swedish Communication Ability: Effective Visual Impairment: No Limitations Hearing Ability: Normal Lathe Mechanic Required: No Beliefs That Will Affect Care: None marital status: Current Living Situation: Spouse current occupational status: employed current occupation: [employer] How many Children do You have: 1 Feels Safe at Home: Yes Childhood Exposure to Second-Hand Smoke: No Dental Care, Regularly: Yes Seatbelt Use: sometimes Sunscreen Use: No Assistive Devices: Cane and Walker Review of Systems 2 Review of Systems: Unobtainable due to cognitive status Physical Exam 2 Physical Exam: Constitutional: No acute distress HEENT: EOMI, PERRLA, short thick neck Respiratory system: Decreased air entry bilaterally, no wheeze, positive rhonchi, positive crackles bilateral lower lobe CVS: S1-S2 positive, no murmurs or gallops Abdomen: Soft, nontender, nondistended, positive bowel sounds x4, obese Extremities: +2 pulses bilaterally radialis/ dorsalis pedis, no cyanosis, minimal pitting edema bilateral lower extremity Neuro: Confused, moving all extremities spontaneously Psych: Unable to assess G/U: Positive Pulido Skin: no rashes, warm and dry Lymphatic: no cervical or axillary lymphadenopathy Results & Data Results & Data Vital Signs (Past 12 Hours) Vital Signs Temp Pulse Pulse Resp BP BP Pulse Ox 04/21/25 17:10 74/35 L 04/21/25 16:41 36.9 C 04/21/25 16:18 67/40 L 04/21/25 16:08 65/34 L 04/21/25 16:06 65/43 L 04/21/25 16:06 92 H 24 94 04/21/25 16:05 65/46 L 04/21/25 16:05 65/46 L 04/21/25 16:00 97 H 16 95 04/21/25 15:16 101 H 04/21/25 15:12 101 H 18 94 04/21/25 15:05 69/43 L 04/21/25 15:05 69/43 L 04/21/25 14:36 101 H 35 H 96 04/21/25 14:34 71/47 L 04/21/25 14:32 71/47 L 04/21/25 14:32 71/47 L 04/21/25 14:32 71/47 L 04/21/25 14:30 66/43 L 04/21/25 14:30 98 H 17 95 04/21/25 14:29 64/47 L 04/21/25 14:25 101 H 15 94 04/21/25 14:15 99 H 20 92 04/21/25 14:12 76/43 L 04/21/25 14:12 76/43 L 04/21/25 14:12 76/43 L 04/21/25 14:10 37.2 C 108 H 98/60 L 04/21/25 14:09 102 H 22 92 04/21/25 14:06 113 H 23 92 04/21/25 13:57 98/60 L 04/21/25 13:57 98/60 L 04/21/25 13:54 110 H 16 94 04/21/25 13:49 79/56 L 04/21/25 13:49 79/56 L 04/21/25 13:46 67/52 L 04/21/25 13:39 101 H 22 96 04/21/25 13:33 73/53 L 04/21/25 13:33 73/53 L 04/21/25 13:30 80/55 L 04/21/25 13:30 96 H 80/53 L 04/21/25 13:25 79/50 L 04/21/25 13:18 106 H 16 97 04/21/25 13:18 75/46 L 04/21/25 13:18 75/46 L 04/21/25 13:18 75/46 L 04/21/25 13:16 63/51 L 04/21/25 13:15 98 H 31 H 94 04/21/25 13:15 108 H 75/46 L 04/21/25 13:06 101 H 23 95 04/21/25 13:00 105 H 75/51 L 04/21/25 12:45 108 H 69/50 L 04/21/25 12:31 93/45 L 04/21/25 12:31 93/45 L 04/21/25 12:30 96 H 93/45 L 04/21/25 12:27 100 H 22 93 04/21/25 12:17 72/55 L 04/21/25 12:15 110 H 21 93 04/21/25 12:15 104 H 72/55 L 04/21/25 12:03 104 H 20 94 04/21/25 12:01 82/47 L 04/21/25 12:01 82/47 L 04/21/25 12:00 96 H 29 H 91 04/21/25 12:00 109 H 82/47 L 04/21/25 11:51 85/55 L 04/21/25 11:51 85/55 L 04/21/25 11:48 103 H 85/55 L 04/21/25 11:46 130/110 H 04/21/25 11:31 56/40 L 04/21/25 11:30 106 H 81/53 L 04/21/25 11:24 104 H 27 H 81 L 04/21/25 11:00 99 H 34 H 100 04/21/25 11:00 86/59 L 04/21/25 11:00 86/59 L 04/21/25 11:00 86/59 L 04/21/25 11:00 105 H 86/59 L 04/21/25 10:50 37.3 C 104 H 04/21/25 10:49 79/60 L 04/21/25 10:42 102 H 24 86 L 04/21/25 10:39 99 H 21 93 04/21/25 10:35 91/55 L 04/21/25 10:35 91/55 L 04/21/25 09:42 104 H 20 80 L 04/21/25 08:59 87/50 L 04/21/25 08:40 37.3 C 103 H 20 97 04/21/25 08:00 36.6 C 94 H 20 86/50 L 95 04/21/25 07:50 37.3 C 106 H 20 87/50 L 97 04/21/25 07:30 04/21/25 07:00 95 H 04/21/25 06:15 37.1 C 94 H 16 91/52 L 100 04/21/25 05:50 36.6 C 100 H 20 86/50 L 100 04/21/25 05:45 37.2 C 96 H 18 106/58 L 100 O2 Del Method O2 Flow Rate FiO2 04/21/25 17:10 04/21/25 16:41 04/21/25 16:18 04/21/25 16:08 04/21/25 16:06 04/21/25 16:06 04/21/25 16:05 04/21/25 16:05 04/21/25 16:00 04/21/25 15:16 04/21/25 15:12 04/21/25 15:05 04/21/25 15:05 04/21/25 14:36 04/21/25 14:34 04/21/25 14:32 04/21/25 14:32 04/21/25 14:32 04/21/25 14:30 04/21/25 14:30 04/21/25 14:29 04/21/25 14:25 30 04/21/25 14:15 04/21/25 14:12 04/21/25 14:12 04/21/25 14:12 04/21/25 14:10 04/21/25 14:09 04/21/25 14:06 04/21/25 13:57 04/21/25 13:57 04/21/25 13:54 04/21/25 13:49 04/21/25 13:49 04/21/25 13:46 04/21/25 13:39 04/21/25 13:33 04/21/25 13:33 04/21/25 13:30 04/21/25 13:30 04/21/25 13:25 04/21/25 13:18 04/21/25 13:18 04/21/25 13:18 04/21/25 13:18 04/21/25 13:16 04/21/25 13:15 04/21/25 13:15 04/21/25 13:06 04/21/25 13:00 04/21/25 12:45 04/21/25 12:31 04/21/25 12:31 04/21/25 12:30 04/21/25 12:27 04/21/25 12:17 04/21/25 12:15 04/21/25 12:15 04/21/25 12:03 30 04/21/25 12:01 04/21/25 12:01 04/21/25 12:00 04/21/25 12:00 04/21/25 11:51 04/21/25 11:51 04/21/25 11:48 04/21/25 11:46 04/21/25 11:31 04/21/25 11:30 04/21/25 11:24 04/21/25 11:00 04/21/25 11:00 04/21/25 11:00 04/21/25 11:00 04/21/25 11:00 04/21/25 10:50 04/21/25 10:49 04/21/25 10:42 04/21/25 10:39 04/21/25 10:35 04/21/25 10:35 04/21/25 09:42 04/21/25 08:59 04/21/25 08:40 1 04/21/25 08:00 Nasal Cannula 2 04/21/25 07:50 1 04/21/25 07:30 Nasal Cannula 2 04/21/25 07:00 04/21/25 06:15 2 04/21/25 05:50 2 04/21/25 05:45 2 Laboratory Results 04/21/25 09:24 04/21/25 09:24 Coding Level of Care Code 69792 CRITICAL CARE 1ST 30-74M Diagnoses Encephalopathy G93.[address] scan, head R93.0 ESRD on hemodialysis N18.6; Z99.2 Immunosuppression due to drug therapy D84.821 PAF (paroxysmal atrial fibrillation) I48.0 Acute on chronic heart failure with preserved ejection fraction (HFpEF) I50.33
[2025-04-21] MEDS ORDERED: STAT IV Infusion **Titration per Protocol STA ×2 (17:42→23:38)
[2025-04-21] MEDS: NOREPINEPHRINE/D5W 4 MG/250 ML PLCT IV SCH (17:45)
--- NOTE | 2025-04-21 17:45 | Neurology Consultation ---
Date of Consultation April 21, 2025 Assessment & Plan (1) Abnormal CT scan, head: (2) ESRD on hemodialysis: (3) PAF (paroxysmal atrial fibrillation): (4) Encephalopathy: Plan 64-year-old male with a history of renal transplant, admitted with multifocal pneumonia, acute kidney injury, started hemodialysis, patient has been notably hypotensive, developed a persistent alteration in mental status, CT of the head suggest possible left occipital lobe edema potentially consistent with a subacute infarct. I did independently review these images, there is radiolucency within the right occipital lobe as well, these findings are nonspecific and could be artifactual. Subacute infarct or PRES (posterior reversible encephalopathy syndrome) could be considered. An underlying neoplasm is probably unlikely. Carotid ultrasound revealed a possible 50 to 69% stenosis of the left internal carotid artery. I do not believe this finding is clinically significant. Brain MRI with contrast to formally exclude an acute stroke. MRI can also be useful to diagnose PRES. This patient's encephalopathy is likely multifactorial, in the context of hypotension, acute kidney injury, end-stage renal disease, on hemodialysis, post renal transplant, hemolytic anemia, multifocal pneumonia, pulmonary edema. The extent to which a possible occipital lobe stroke contributes to his current mental status is uncertain at this time. Again, the CT of the head is inconclusive in this regard, brain MRI pending. This patient does have a history of atrial fibrillation, on Eliquis. If the above MRI does reveal an acute or subacute stroke it would be reasonable to restart his anticoagulant if there is no evidence of interval hemorrhagic transformation. May continue with aspirin as prescribed. Although a statin would be preferred for this patient, he has a history of intolerance to statin medication. Most recent LDL was 102 from August 2024. Typically, goal LDL for patients with a history of stroke or TIA is 70 or less. Patient to follow-up with his PCP to determine if trials of additional cholesterol lowering therapy is warranted. I will advise further pending completion of his brain MRI. Again, he was too obtunded to get a good neurological examination. I would be most interested as to whether or not he has a right homonymous hemianopsia or other vision deficits, Balint syndrome? (Bilateral occipital lobe injury can be associated with Balint syndrome, optic apraxia, optic ataxia, simultanagnosia.) I will advise further pending completion of the above brain MRI. History of Present Illness Reason for Consultation: stroke Requesting Physician: Arpan Attending Physician: Chris Clayton DO History of Present Illness The patient is a 64-year-old male who had presented to the [facility] emergency department on April 12, 2025 with generalized weakness and shortness of breath. History notable for kidney transplant, acute kidney injury, stage IV chronic kidney disease. Patient was admitted with multifocal pneumonia. The patient has been hypotensive and becoming less responsive. I independently reviewed the CT of the head completed yesterday. There is an area of low- attenuation within the left occipital temporal area that could be consistent with a subacute infarct. There are some low-attenuation within the right temporal occipital area as well. There is no hemorrhage. There are scattered vascular calcifications. There is no hydrocephalus or shift. A carotid ultrasound revealed a moderate left ICA stenosis, 50 to 69%, bilateral atherosclerotic plaque, mild severity. The patient has been seen by nephrology, receiving hemodialysis. Patient has remained hypotensive. Upon entering the room his hospital bed is in Trendelenburg position. He is minimally responsive, grimacing to pain, does not follow commands or answer questions. Allergies Allergy/AdvReac Type Severity Reaction Status Date / Time clopidogrel [From Plavix] Allergy Unknown Unknown Verified 03/14/25 10:20 Ujbsyhg-LED-EyR Reductase AdvReac Intermediate myalgias Verified 03/14/25 10:20 Inhibitor [Uchrohf-Wzx-Boq Reductase Inhibitor] Home Medications Medication Instructions Recorded Confirmed Type mycophenolate mofetil 250 mg 500 mg (2 x 250 mg) PO BID #360 05/29/20 04/13/25 Rx capsule caps amoxicillin 500 mg capsule 2,000 mg PO DIRECTED PRN PRIOR 07/29/20 04/13/25 History TO DENTAL PROCEDURES pantoprazole 40 mg tablet,delayed 40 mg PO BID #180 tabs 12/06/23 04/13/25 Rx release calcium carbonate 500 mg PO QAM 01/21/24 04/13/25 History ferrous sulfate 325 mg (65 mg 325 mg PO BID #60 tabs 02/05/24 04/13/25 Rx iron) tablet acyclovir 400 mg tablet 400 mg PO BID 05/07/24 04/13/25 History ondansetron 4 mg disintegrating 4 mg PO Q8 PRN nausea #20 tabs 05/22/24 04/13/25 Rx tablet magnesium oxide 500 mg PO BID 08/09/24 04/13/25 History albuterol sulfate 90 mcg/actuation 2 inh inhalation Q6H PRN shortness 08/25/24 04/13/25 Rx aerosol inhaler of breath or wheezing #8.5 grams danazol 200 mg capsule 200 mg PO BID 09/13/24 04/13/25 History levothyroxine 125 mcg tablet 125 mcg PO QAM #90 tabs 09/27/24 04/13/25 Rx acetaminophen 325 mg tablet 650 mg PO Q4H PRN Pain 11/14/24 04/13/25 History aspirin 81 mg tablet,delayed 81 mg PO DAILY 11/14/24 04/13/25 History release (Adult Aspirin Regimen) cholecalciferol (vitamin D3) 25 25 mcg PO DAILY 11/14/24 04/13/25 History mcg (1,000 unit) capsule vitamin B complex-vitamin C-folic 1 tab PO BID 11/14/24 04/13/25 History acid 0.8 mg tablet (Renal Vitamin) allopurinol 300 mg tablet 300 mg PO DAILY 12/25/24 04/13/25 History bumetanide 1 mg tablet 1 mg PO BID #70 tabs 01/23/25 04/13/25 Rx folic acid 1 mg tablet 1 mg PO BID #180 tabs 02/03/25 04/13/25 Rx tacrolimus 0.5 mg capsule, 0.5 mg PO Q12H Dx: Z94.0 kidney 02/05/25 04/13/25 Rx immediate-release transplant #60 caps apixaban 5 mg tablet (Eliquis) 5 mg PO BID #180 tabs 02/19/25 04/13/25 Rx prednisone 5 mg tablet 5 mg PO QAM #90 tabs 03/14/25 04/13/25 Rx metoprolol succinate 50 mg 50 mg PO BID #90 tabs 03/17/25 04/13/25 Rx tablet,extended release 24 hr Patient History Medical History Infection of finger Hx of sepsis due to pneumonia, ~07/26/24, hospitalized at [facility] Erosive esophagitis hx, EGD 08/2023 History of Clostridioides difficile infection dx 09/14/24, [facility]; 09/24/24, per pt, "will be finishing abx in next day or so" CKD (chronic kidney disease) f/u [facility] Bilateral leg edema "has some, has gotten better" Hx of adrenal insufficiency Hx of right bundle branch block f/u [facility] cardiology History of recent hospitalization pt admitted to [facility] multiple times over 2023 (01/21/24, 05/2024-sx, 07/13/24, 07/26/24, 08/22/24, 08/24/24); most recent visit 08/24/24 per records "63-year-old male with past medical history significant for HFpEF, A-fib, ESRD, WAHA, and additional chronic medical conditions who is presenting for sudden onset of chest pain with shortness of breath after exertion following eating out at [employer] followed by increased activity with cutting wood and developed chest pain. CXR with evidence for volume overload and was provided IV Lasix last nitro on admission with improvement/resolution of symptoms. Also with KRISSY that was likely due to hypotension/hypoperfusion and increased diuretic use recently; improving. Also with A-fib RVR, suspect due to increased salt load/increased activity/untreated CHERELLE." Rhinovirus infection Hypomagnesemia Hx of gout Hx of congestive heart failure Sleep apnea, obstructive no device Hypocalcemia hx Weakness Atrial fibrillation with rapid ventricular response controlled w/ metoprolol; f/u [facility] cardiology Hypotension pt unaware? Heart failure with preserved ejection fraction hx; f/u [facility] cardiology Hypomagnesemia hx History of non-ST elevation myocardial infarction (NSTEMI) entered into chart 01/2023 Osteoporosis Hypothyroidism Hyperlipidemia Hx of esophageal reflux controlled, stable per pt 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 Abdominal aortic aneurysm 4.9 cm on 01/2023 chest CTA; monitoring History of colon polyps Retroperitoneal mass lesion biopsy negative for malignancy 05/2022 per transplant record 03/17/23 Pneumonia hx, ~08/23/24 Adrenal nodule monitored by PCP Arthritis On prednisone therapy Rosales's esophagus with esophagitis Atrial flutter hx 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 Thoracic ascending aortic aneurysm 4.[address] 01/19/24 Hypertension controlled, stable per pt Limb alert care status left arm restriction History of blood transfusion ~07/2024 Hx of herpetic maria History of COVID-19 07/2020- covid pneumonia, hospitalized; resolved History of renal dialysis prior to kidney transplant; has dialysis fistula left arm History of CVA (cerebrovascular accident) 2008, mild memory changes Surgical History History of total right hip arthroplasty Hx of kidney transplant 02/2010- [place] History of esophagogastroduodenoscopy (EGD) Hx of cholecystectomy Hx of exploratory laparotomy History of colonoscopy Family History Grandmother (Maternal) Alzheimer disease Mother Depression Denies family history of Ovarian cancer Prostate cancer Diabetes Heart disease Myocardial infarction Breast cancer Lung cancer COPD (chronic obstructive pulmonary disease) Colorectal cancer Hypertension Stroke Social History Smoking Status: Never smoker Second Hand Exposure: No; Do You Dip or Chew Tobacco: No; Hx Alcohol Use: No Hx Substance Use: No 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: Kosovan Communication Ability: Effective Visual Impairment: No Limitations Hearing Ability: Normal Medical Technician Required: No Beliefs That Will Affect Care: None marital status: Current Living Situation: Spouse current occupational status: employed current occupation: [employer] How many Children do You have: 1 Feels Safe at Home: Yes Childhood Exposure to Second-Hand Smoke: No Dental Care, Regularly: Yes Seatbelt Use: sometimes Sunscreen Use: No Assistive Devices: Cane and Walker Review of Systems Review of Systems: Unobtainable due to reduced consciousness Exam (Neuro) Constitutional: well developed and + altered mental status Eyes: PERRL and EOM intact bilaterally (Forced eyelid closure); no nystagmus Neurologic: Oriented to:: negative Person Cognitive Function: negative Attention Cranial Nerves: Normal II, III, IV, , V, VII, VIII, IX, X, XI and XII Motor Strength: negative Normal Lower Extremities or Normal Upper Extremities Motor Tone: Normal Lower Extremities and Normal Upper Extremities Muscle Bulk/Involuntary Movements: No Involuntary Movements Sensation: Pain/Temperature Intact Deep Tendon Reflexes: Rt Triceps: 2+, Lt Triceps: 2+, Rt Biceps: 2+, Lt Biceps: 2+, Rt Brachioradialis: 2+, Lt Brachioradialis: 2+, Rt Patellar: 2+, Lt Patellar: 2+, Rt Ankle: 1+ and Lt Ankle: 1+ Special Tests: negative Babinski Present Details: Limited examination, patient obtunded, grimaces and groans to noxious stimulation, does not follow commands, forced eyelid closure, both pupils are round and reactive to light, some roving eye movements, no nystagmus, corneal reflexes intact. Patient spontaneously moves all 4 limbs, no gross hemiparesis or paraparesis. Patient withdraws all 4 limbs to noxious stimulation. Results & Data Vital Signs (Past 12 Hours) Vital Signs Temp Pulse Pulse Resp BP BP Pulse Ox 04/21/25 16:41 36.9 C 04/21/25 16:18 67/40 L 04/21/25 16:08 65/34 L 04/21/25 16:06 65/43 L 04/21/25 16:06 92 H 24 94 04/21/25 16:05 65/46 L 04/21/25 16:05 65/46 L 04/21/25 16:00 97 H 16 95 04/21/25 15:16 101 H 04/21/25 15:12 101 H 18 94 04/21/25 15:05 69/43 L 04/21/25 15:05 69/43 L 04/21/25 14:36 101 H 35 H 96 04/21/25 14:34 71/47 L 04/21/25 14:32 71/47 L 04/21/25 14:32 71/47 L 04/21/25 14:32 71/47 L 04/21/25 14:30 66/43 L 04/21/25 14:30 98 H 17 95 04/21/25 14:29 64/47 L 04/21/25 14:25 101 H 15 94 04/21/25 14:15 99 H 20 92 04/21/25 14:12 76/43 L 04/21/25 14:12 76/43 L 04/21/25 14:12 76/43 L 04/21/25 14:10 37.2 C 108 H 98/60 L 04/21/25 14:09 102 H 22 92 04/21/25 14:06 113 H 23 92 04/21/25 13:57 98/60 L 04/21/25 13:57 98/60 L 04/21/25 13:54 110 H 16 94 04/21/25 13:49 79/56 L 04/21/25 13:49 79/56 L 04/21/25 13:46 67/52 L 04/21/25 13:39 101 H 22 96 04/21/25 13:33 73/53 L 04/21/25 13:33 73/53 L 04/21/25 13:30 80/55 L 04/21/25 13:30 96 H 80/53 L 04/21/25 13:25 79/50 L 04/21/25 13:18 106 H 16 97 04/21/25 13:18 75/46 L 04/21/25 13:18 75/46 L 04/21/25 13:18 75/46 L 04/21/25 13:16 63/51 L 04/21/25 13:15 98 H 31 H 94 04/21/25 13:15 108 H 75/46 L 04/21/25 13:06 101 H 23 95 04/21/25 13:00 105 H 75/51 L 04/21/25 12:45 108 H 69/50 L 04/21/25 12:31 93/45 L 04/21/25 12:31 93/45 L 04/21/25 12:30 96 H 93/45 L 04/21/25 12:27 100 H 22 93 04/21/25 12:17 72/55 L 04/21/25 12:15 110 H 21 93 04/21/25 12:15 104 H 72/55 L 04/21/25 12:03 104 H 20 94 04/21/25 12:01 82/47 L 04/21/25 12:01 82/47 L 04/21/25 12:00 96 H 29 H 91 04/21/25 12:00 109 H 82/47 L 04/21/25 11:51 85/55 L 04/21/25 11:51 85/55 L 04/21/25 11:48 103 H 85/55 L 04/21/25 11:46 130/110 H 04/21/25 11:31 56/40 L 04/21/25 11:30 106 H 81/53 L 04/21/25 11:24 104 H 27 H 81 L 04/21/25 11:00 99 H 34 H 100 04/21/25 11:00 86/59 L 04/21/25 11:00 86/59 L 04/21/25 11:00 86/59 L 04/21/25 11:00 105 H 86/59 L 04/21/25 10:50 37.3 C 104 H 04/21/25 10:49 79/60 L 04/21/25 10:42 102 H 24 86 L 04/21/25 10:39 99 H 21 93 04/21/25 10:35 91/55 L 04/21/25 10:35 91/55 L 04/21/25 09:42 104 H 20 80 L 04/21/25 08:59 87/50 L 04/21/25 08:40 37.3 C 103 H 20 97 04/21/25 08:00 36.6 C 94 H 20 86/50 L 95 04/21/25 07:50 37.3 C 106 H 20 87/50 L 97 04/21/25 07:30 04/21/25 07:00 95 H 04/21/25 06:15 37.1 C 94 H 16 91/52 L 100 04/21/25 05:50 36.6 C 100 H 20 86/50 L 100 04/21/25 05:45 37.2 C 96 H 18 106/58 L 100 04/21/25 05:15 37.2 C 105 H 18 90/69 L 100 O2 Del Method O2 Flow Rate FiO2 04/21/25 16:41 04/21/25 16:18 04/21/25 16:08 04/21/25 16:06 04/21/25 16:06 04/21/25 16:05 04/21/25 16:05 04/21/25 16:00 04/21/25 15:16 04/21/25 15:12 04/21/25 15:05 04/21/25 15:05 04/21/25 14:36 04/21/25 14:34 04/21/25 14:32 04/21/25 14:32 04/21/25 14:32 04/21/25 14:30 04/21/25 14:30 04/21/25 14:29 04/21/25 14:25 30 04/21/25 14:15 04/21/25 14:12 04/21/25 14:12 04/21/25 14:12 04/21/25 14:10 04/21/25 14:09 04/21/25 14:06 04/21/25 13:57 04/21/25 13:57 04/21/25 13:54 04/21/25 13:49 04/21/25 13:49 04/21/25 13:46 04/21/25 13:39 04/21/25 13:33 04/21/25 13:33 04/21/25 13:30 04/21/25 13:30 04/21/25 13:25 04/21/25 13:18 04/21/25 13:18 04/21/25 13:18 04/21/25 13:18 04/21/25 13:16 04/21/25 13:15 04/21/25 13:15 04/21/25 13:06 04/21/25 13:00 04/21/25 12:45 04/21/25 12:31 04/21/25 12:31 04/21/25 12:30 04/21/25 12:27 04/21/25 12:17 04/21/25 12:15 04/21/25 12:15 04/21/25 12:03 30 04/21/25 12:01 04/21/25 12:01 04/21/25 12:00 04/21/25 12:00 04/21/25 11:51 04/21/25 11:51 04/21/25 11:48 04/21/25 11:46 04/21/25 11:31 04/21/25 11:30 04/21/25 11:24 04/21/25 11:00 04/21/25 11:00 04/21/25 11:00 04/21/25 11:00 04/21/25 11:00 04/21/25 10:50 04/21/25 10:49 04/21/25 10:42 04/21/25 10:39 04/21/25 10:35 04/21/25 10:35 04/21/25 09:42 04/21/25 08:59 04/21/25 08:40 1 04/21/25 08:00 Nasal Cannula 2 04/21/25 07:50 1 04/21/25 07:30 Nasal Cannula 2 04/21/25 07:00 04/21/25 06:15 2 04/21/25 05:50 2 04/21/25 05:45 2 04/21/25 05:15 2 Laboratory Results WBC 15.53, hemoglobin 8.1, hematocrit 26.3, platelet count 147, sodium 138, p otassium 3.6, BUN 38, creatinine 5.19, glucose 79, calcium 8.9, magnesium 1.8, AST 31, ALT 15 Diagnostic Findings Electrocardiogram revealed probable atrial flutter. An electrocardiogram completed this past December revealed atrial fibrillation with rapid ventricular response. An echocardiogram completed this past October at [facility] revealed severe enlargement of the left atrium. Coding Level of Care Code 11034 INT INP/OBS CARE 3/75MIN Diagnoses Abnormal CT scan, head R93.0 ESRD on hemodialysis N18.6; Z99.2 PAF (paroxysmal atrial fibrillation) I48.0 Encephalopathy G93.40 Time Spent (min) 75 Comment Total time includes patient contact, chart review, counseling, note preparation
[2025-04-21] MEDS ORDERED: Nursing to Pharmacy Communication SCH (18:45)
[2025-04-21] MEDS: ACETAMINOPHEN 1,000 MG/100 ML VIAL IV PRN (18:48)
--- NOTE | 2025-04-21 18:49 | XRay Report ---
EXAM: Portable AP chest radiograph TECHNIQUE: AP portable radiograph of the chest was obtained. INDICATION: Shortness of breath Comparison: Chest radiograph April 19, 2025. FINDINGS: LINES and TUBES: None. CARDIOVASCULAR: Cardiac silhouette is stable enlarged in size. LUNGS/PLEURA: Moderate intrapulmonary edema is similar to previous. Chronic interstitial lung changes with scarring. Interval progression of right greater than left infrahilar infiltrative densities. Small pleural fluids may be present. No discernible pneumothorax. OSSEOUS/OTHER: No displaced acute osseous process identified. IMPRESSION: Similar congestive changes of the cardiovascular system compared to the previous. Interval progression of right greater than left infrahilar infiltrative densities suggesting worsening airspace disease/pneumonia. Electronically signed by Adrian Woodson 04-21-2025 6:47 PM
[2025-04-21] MEDS ORDERED: Concentrate Norepinephrine IV Infusion ONE (19:23)
--- NOTE | 2025-04-21 19:23 | Communication Note ---
Date of Service: April 21, 2025 192- Patient remains severely hypotensive with rapidly increasing vasopressor administration via peripheral access. As he has had difficulty with access sites in his neck previously, will attempt to defer further central access attempts in light of his ESRD and dialysis sites. I have discussed with Marriage And Family Therapist Dr. Roe his current clinical state requiring such urgent access to be able to use his dialysis line for infusion of vasopressors. At this time for his state, she has also agreed to use until stabilization. 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 If we are able to stablizie his pressure, will continue with attempts to obtain MRI as previously ordered. Cultures have been obtained, steroids have been administered, abx have been initiated as well as vasopressors given. If he continues to fail vasopressors will update his . Praneeth TELLES ([facility]-)
[2025-04-21] MEDS: MAX Conc; 16mg in 250mL IV SCH (19:38)
[2025-04-21] MEDS: HYDROCORTISONE SOD 100 MG in SYRINGE 0 ML IV STA (20:00)
[2025-04-21] MEDS: PIPERACILLIN/TAZOBACTAM 4.5 GM/100 ML BAG IV SCH (20:01)
[2025-04-21] MEDS: VASOPRESSIN 20 UNITS in SODIUM CHLORIDE 0.9% 100 ML IV SCH (23:54)
--- NOTE | 2025-04-22 01:05 | Magnetic Resonance Report ---
Exam(s): MRI HEAD Without Contrast EXAM: MR Head Without Intravenous Contrast CLINICAL HISTORY: Reason for exam: Clarify CT head w/o contrast stroke findings. TECHNIQUE: Magnetic resonance images of the head/brain without intravenous contrast in multiple planes. COMPARISON: Prior head CT from April 20, 2025. FINDINGS: The study is limited secondary to motion artifact. Brain: There are multiple tiny foci of acute ischemic injury within the bilateral frontal lobes and right cerebellar lobes without evidence of hemorrhagic transformation. Mild nonspecific white matter changes. The flow voids at the base the brain are intact. Ventricles: Unremarkable. No ventriculomegaly. Bones/joints: Unremarkable. No acute fracture. Sinuses: Chronic ethmoid, frontal and sphenoid sinusitis.. No acute sinusitis. Mastoid air cells: Unremarkable there is a moderate amount of fluid within the mastoid air no mastoid effusion. Orbits: Unremarkable as visualized. IMPRESSION: Multiple tiny foci of acute ischemic injury in the bilateral frontal and cerebellar lobes without hemorrhagic transformation, concerning for embolic phenomenon. Recommend CT angiogram of the head and neck for further evaluation. Communications: Verify Receipt Electronically signed by: Yamile Aguilar MD 04/22/25 01:04 AM
--- NOTE | 2025-04-22 01:07 | Magnetic Resonance Report ---
Exam(s): MRA HEAD Without Contrast EXAM: MR Angiography Head Without Intravenous Contrast CLINICAL HISTORY: Reason for exam: Clarify CT w/o con findings. TECHNIQUE: Magnetic resonance angiography images of the head without intravenous contrast. COMPARISON: No relevant prior studies available. FINDINGS: The study is limited secondary to motion artifact. Right internal carotid artery: No acute findings. Intracranial segment is patent with no significant stenosis. No aneurysm. Right anterior cerebral artery: Unremarkable. No occlusion or significant stenosis. No aneurysm. Right middle cerebral artery: Unremarkable. No occlusion or significant stenosis. No aneurysm. Right posterior cerebral artery: Unremarkable. No occlusion or significant stenosis. No aneurysm. Right vertebral artery: Unremarkable as visualized. Left internal carotid artery: No acute findings. Intracranial segment is patent with no significant stenosis. No aneurysm. Left anterior cerebral artery: Unremarkable. No occlusion or significant stenosis. No aneurysm. Left middle cerebral artery: Unremarkable. No occlusion or significant stenosis. No aneurysm. Left posterior cerebral artery: Unremarkable. No occlusion or significant stenosis. No aneurysm. Left vertebral artery: Unremarkable as visualized. Basilar artery: Unremarkable. No occlusion or significant stenosis. No aneurysm. IMPRESSION: No evidence of large vessel occlusion. Electronically signed by: Yamile Aguilar MD 04/22/25 01:05 AM
--- NOTE | 2025-04-22 01:15 | Communication Note ---
Date of Service: April 22, 2025 Gumaro continues to have fluctuating blood pressures and he is currently on 2 vasoactive medications, he is also more obtunded than he was earlier in the ift. I have called his Lakeshia and we went through his current state of hemodynamic instability, we reviewed his imaging studies to include his chest xray from today that showed progressive opacifications, and his MRI and MRA that did likely show multiple embolic areas of stroke (official read was pending at the time, however the official interpretation from radiology did come through as we were on the phone and confirmed the above). We also reviewed his current therapies of re-adjustment of antibiotics, stress dose steroids, and volume challenge, initiation of multiple vasopressors and suctioning his upper airways to maintain patency. We discussed options of placing arterial monitoring and possibly another central line to continue with hemodynamic support. Lakeshia did understand and voice questions regarding his stroke and "lung infection" and that with his hypotension that he could continue to have further strokes and that these current areas may get worse as well as not improving from a CXR standpoint. We discussed that even with better blood pressures, his mental status and neurological exam has not improved and that his heart and lungs may also be failing from renal failure or infection/sepsis. 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 She feels at this time that he has continued to decompensate for the past few weeks and even now continues to worsen. Lakeshia elected at this time to do no further escalation of care or adjustment of vasopressor agents, no invasive monitoring, and see if Gumaro will show some response or make it until morning time. If he worsens or no change in morning then will transition to comfort care measures. This may also include aborting planned procedure for TDL in the am. We agreed to call Lakeshia if he further decompensates before morning to allow her to talk to him via the phone in his room and then proceed with comfort measures. We will continue with current care and level of support. Praneeth TELLES ([facility]-)
[2025-04-22] MEDS: HYDROCORTISONE SOD 50 MG in SYRINGE 0 ML IV SCH (02:54)
[2025-04-22 04:26] LABS: Anion Gap 12.0 (3-11); Blood Urea Nitrogen 31.0 mg/dl (6-23); Calcium 8.9 mg/dl (8.6-10.3); Carbon Dioxide 27.0 mmol/L (21-32); Chloride 99.0 mmol/L (98-107); Creatinine Clr Calc Pharmacy 17.8 ml/min; Glucose 121.0 mg/dl (70-99(Fasting)); Magnesium 2.1 mg/dl (1.7-2.4); Potassium 4.4 mmol/L (3.5-5.1); Sodium 138.0 mmol/L (136-145)
[2025-04-22 04:49] LABS: INR 1.6 (0.9-1.1); Partial Thromboplastin Time 38 Seconds (21-31); Prothrombin Time 16.5 Seconds (9.0-12.0)
[2025-04-22 06:32] LABS: Hematocrit (blood only) 30.5 % (42.0-52.0); Hemoglobin 8.9 g/dl (14.0-18.0); Mean Corpuscular Hemoglobin 33.5 pg (25.0-34.0); Mean Corpuscular Volume 114.7 fL (80.0-100.0); Platelet Count 233 K/uL (130-400); RDW Standard Deviation 82.2 fL (36.4-46.3); Red Blood Count 2.66 M/uL (4.70-6.10); White Blood Count 41.14 K/ul (4.8-10.8)
[2025-04-22 06:39] LABS: Anisocytosis Present; Basophilic Stippling 1+; Immature Granulocytes # (auto) 1.25 K/uL (0.01-0.20); Immature Granulocytes % (auto) 3.0 %; Macrocytosis Present; Polychromasia 3+; Toxic Vacuolation 1+
[2025-04-22 07:28] LABS: Fibrinogen 564 mg/dl (184-400)
--- NOTE | 2025-04-22 07:28 | Critical Care Progress Note ---
Date of Service April 22, 2025 Assessment & Plan (1) Encephalopathy: (2) Abnormal CT scan, head: (3) ESRD on hemodialysis: (4) Immunosuppression due to drug therapy: (5) PAF (paroxysmal atrial fibrillation): (6) Acute on chronic heart failure with preserved ejection fraction (HFpEF): Plan Reason Critically Ill: 64-year-old male was admitted to the hospital for shortness of breath. Patient's left AV fistula was not working he had right femoral Shiley catheter put in. On the floor was found to be hypotensive. Sent to ICU for vasopressor support Past medical history: HFpEF, A-fib, hypothyroidism, s/p renal transplant, end- stage renal disease, autoimmune hemolytic anemia Neuro - [facility] ICU: Unable to assess --Encephalopathy with acute embolic strokes Multifactorial End-stage renal disease Acute embolic strokes appreciated on the MRI of the brain 04/21/[address] head 04/20/2025: Moderate edema in the left occipital lobe concerning for acute/subacute ischemic injury Cardiac - -- Shock Etiology is not clear Septic versus volume depletion versus adrenal insufficiency from chronic prednisone use Continue with vasopressor support to keep MAP greater than 65 -- History of chronic hypotension Get midodrine 2.5 mg 3 times daily --A-fib On Eliquis Respiratory - -- Acute hypoxic respiratory failure Mildly hypoxic on the EKG from 04/21/2025 Etiology is multifactorial, pulmonary edema, with possible aspiration GI - -- No acute issues RENAL/LYTES - -- End-stage renal disease On hemodialysis --S/p renal transplant On prednisone 5 mg, mycophenolate 500 mg twice daily, tacrolimus 0.5 mg twice daily ENDO - -- Chronic prednisone use 5 mg on a daily basis --ICU hypoglycemia protocol HEME - -- Macrocytic anemia Monitor H&H --History of warm autoimmune hemolytic anemia On danazol as well as bortezomib ID - -- Pulmonary opacities Difficult to distinguish between pulmonary edema versus alveolar opacities On Zoysn Procalcitonin 0.6 on 04/12/2025 BNP 1267 On antibiotics -- DNR/DNI --Prophylaxis VTE: Eliquis GI: Pantoprazole Lines: Right femoral Shiley, peripheral, positive Pulido Diet: N.p.o. Plan: In/out: +1.3 L, urine output 100 mL Procalcitonin is elevated to 8.47 Chest x-ray from today on looks worse compared to before, continue with antibiotics. Continue with hydrocortisone for the time being Overall prognosis of the patient is guarded. The patient's is in touch with primary care. He agreed discussed with the Deivert to continue or keep the patient comfortable I think given the multiple comorbidities and acute embolic strokes, palliative care route would be appropriate. Case was discussed with primary team I have personally spent 36 minutes of critical care time in the direct management of this patient. This is a life/limb threatening event. This includes time spent evaluating patient, direct bedside care, chart review, placing orders, interpretation of diagnostic studies, discussion with consultants, patient, and family members, as well as other required patient management activities. This time is exclusive of all separately billable procedures, and teaching time and separate from and in addition to any other critical care service time. Admission and Anticipated Discharge Date Admission Date: April 13, 2025 Subjective Patient seen and examined at bedside. In distress on [place] respiratory side He was on 0.04 of vasopressin and 0.34 of Levophed Overnight he did have some bloody secretions from the mouth. Has been afebrile Was saturating 100% on 50 L oxy mask Review of Systems 2 Review of Systems: Unobtainable due to cognitive status Physical Exam 2 Physical Exam: Constitutional: In respiratory distress HEENT: PERRLA, short thick neck Respiratory system: Decreased air entry bilaterally, no wheeze, positive rhonchi bilaterally, positive crackles bilateral lower lobe CVS: S1-S2 positive, no murmurs or gallops Abdomen: Soft, nontender, nondistended, positive bowel sounds x4, obese Extremities: Decreased pulses bilaterally radialis/ dorsalis pedis, no cyanosis, minimal pitting edema bilateral lower extremity Neuro: Confused, moving all extremities spontaneously Psych: Unable to assess G/U: Positive Pulido Skin: Ecchymoses appreciated around the neck as well as left arm, left arm AV fistula Skin: no rashes, warm and dry Lymphatic: no cervical or axillary lymphadenopathy Results & Data Results & Data Vital Signs (Past 12 Hours) Vital Signs Temp Pulse Resp BP Pulse Ox O2 Del Method O2 Del Method 04/22/25 06:19 Oxymask 04/22/25 06:00 103/70 04/22/25 06:00 35.5 C L 100 H 17 84 L 04/22/25 05:36 35.5 C L 111 H 24 86 L 04/22/25 05:00 118/71 04/22/25 04:57 35.4 C L 101 H 16 86 L 04/22/25 04:33 35.4 C L 111 H 26 H 85 L 04/22/25 04:18 35.4 C L 106 H 24 87 L 04/22/25 04:00 113/74 04/22/25 03:57 35.4 C L 115 H 26 H 87 L 04/22/25 03:41 99/61 L 04/22/25 03:33 35.5 C L 106 H 34 H 87 L 04/22/25 03:30 35.5 C L 100 H 27 H 87 L 04/22/25 03:27 35.5 C L 101 H 36 H 86 L 04/22/25 03:19 58/31 L 04/22/25 03:10 72/25 L 04/22/25 03:00 63/39 L 04/22/25 02:56 50/34 L 04/22/25 02:54 68/32 L 04/22/25 02:36 35.6 C L 104 H 26 H 04/22/25 02:17 81/47 L 04/22/25 02:12 35.7 C L 115 H 18 85 L 04/22/25 02:08 56/34 L 04/22/25 02:00 35.8 C L 103 H 24 51/31 L 89 L 04/22/25 01:51 35.8 C L 116 H 32 H 91 04/22/25 01:42 35.9 C L 115 H 37 H 87 L 04/22/25 01:33 103/30 L 04/22/25 01:30 35.9 C L 112 H 26 H 89 L 04/22/25 01:22 68/27 L 04/22/25 01:21 36.0 C L 107 H 31 H 88 L 04/22/25 01:18 36.0 C L 94 H 26 H 92 04/22/25 01:15 48/20 L 04/22/25 01:15 36.0 C L 109 H 35 H 93 04/22/25 01:12 36.0 C L 114 H 33 H 91 04/22/25 01:03 36.1 C L 111 H 30 H 92 04/22/25 01:01 97/28 L 04/22/25 00:48 115/80 04/22/25 00:45 36.2 C L 120 H 32 H 93 04/22/25 00:42 36.2 C L 100 H 40 H 91 04/22/25 00:31 82/63 L 04/22/25 00:30 36.3 C L 107 H 27 H 92 04/22/25 00:29 55/32 L 04/22/25 00:27 36.3 C L 110 H 44 H 90 04/21/25 22:45 99/33 L 04/21/25 22:39 124 H 18 95 04/21/25 22:33 98/44 L 04/21/25 21:18 37.8 C H 114 H 36 H 93 04/21/25 21:15 37.8 C H 115 H 35 H 90/52 L 96 04/21/25 21:09 120/43 L 04/21/25 21:06 37.9 C H 99 H 28 H 92 04/21/25 21:00 37.9 C H 115 H 21 85/24 L 96 04/21/25 20:45 114/53 L 04/21/25 20:42 37.9 C H 112 H 25 H 95 04/21/25 20:30 119/40 L 04/21/25 20:21 110/61 04/21/25 20:19 Oxymask 04/21/25 20:15 108/27 L 04/21/25 20:00 123/66 04/21/25 19:54 38.1 C H 118 H 16 94 04/21/25 19:49 120/80 04/21/25 19:48 38.1 C H 126 H 29 H 95 04/21/25 19:46 58/27 L 04/21/25 19:45 38.1 C H 130 H 30 H 96 04/21/25 19:44 45/29 L 04/21/25 19:36 38.1 C H 117 H 22 100 04/21/25 19:35 105/56 L 04/21/25 19:33 38.1 C H 126 H 37 H 94 04/21/25 19:30 38.1 C H 120 H 33 H 80/34 L 95 O2 Flow Rate O2 Flow Rate 04/22/25 06:19 15 04/22/25 06:00 04/22/25 06:00 04/22/25 05:36 04/22/25 05:00 04/22/25 04:57 04/22/25 04:33 04/22/25 04:18 04/22/25 04:00 04/22/25 03:57 04/22/25 03:41 04/22/25 03:33 04/22/25 03:30 04/22/25 03:27 04/22/25 03:19 04/22/25 03:10 04/22/25 03:00 04/22/25 02:56 04/22/25 02:54 04/22/25 02:36 04/22/25 02:17 04/22/25 02:12 04/22/25 02:08 04/22/25 02:00 04/22/25 01:51 04/22/25 01:42 04/22/25 01:33 04/22/25 01:30 04/22/25 01:22 04/22/25 01:21 04/22/25 01:18 04/22/25 01:15 04/22/25 01:15 04/22/25 01:12 04/22/25 01:03 04/22/25 01:01 04/22/25 00:48 04/22/25 00:45 04/22/25 00:42 04/22/25 00:31 04/22/25 00:30 04/22/25 00:29 04/22/25 00:27 04/21/25 22:45 04/21/25 22:39 04/21/25 22:33 04/21/25 21:18 04/21/25 21:15 04/21/25 21:09 04/21/25 21:06 04/21/25 21:00 04/21/25 20:45 04/21/25 20:42 04/21/25 20:30 04/21/25 20:21 04/21/25 20:19 15 04/21/25 20:15 04/21/25 20:00 04/21/25 19:54 04/21/25 19:49 04/21/25 19:48 04/21/25 19:46 04/21/25 19:45 04/21/25 19:44 04/21/25 19:36 04/21/25 19:35 04/21/25 19:33 04/21/25 19:30 Laboratory Results 04/22/25 05:44 04/22/25 03:46 Coding Level of Care Code 28770 CRITICAL CARE 1ST 30-74M Diagnoses Encephalopathy G93.[address] scan, head R93.0 ESRD on hemodialysis N18.6; Z99.2 Immunosuppression due to drug therapy D84.821 PAF (paroxysmal atrial fibrillation) I48.0 Acute on chronic heart failure with preserved ejection fraction (HFpEF) I50.33
[2025-04-22] MEDS ORDERED: NALOXONE HCL 0.4 MG/1 ML VIAL/CARP IV PRN (08:16)
[2025-04-22] MEDS ORDERED: HYDROmorphone PCA 30 MG/30 ML IV PRN (08:16)
--- NOTE | 2025-04-22 08:34 | Hospitalist Progress Note ---
Date of Service April 22, 2025 Assessment & Plan (1) ESRD on hemodialysis: (2) Anemia in chronic renal disease: (3) Multifocal pneumonia: (4) Kidney transplant status, living unrelated donor: (5) Immunosuppression due to drug therapy: (6) Embolic stroke involving anterior cerebral artery: Plan In summary this is a 64-year-old male initially admitted for multifocal pneumonia with acute respiratory failure complicated by and acute kidney injury. The patient's symptoms associated with their present pneumonia have mostly resolved. During the day on 04/19 the patient developed recurrent melanotic stools without hematochezia. Renal function continues to be unrecovered. Overnig ht 04/20 the patient became more lethargic, a subsequent CT head without contrast was obtained which revealed a new area of subacute/acute left occipital lobe edema. #Multiembolic CVA // Encephalopathic Found to have bilateral embolic CVA involving the bilateral frontal lobes; patient is without significant recovery and through discussion with the patient's spouse it has been determined the patient's preference would be to transition to comfort care - Discontinue life sustaining measures and assessments - Start hydromorphone POLE INSPECTOR - Patient's spouse does not want to be contacted until the patient has passed #Acute respiratory failure with hypoxia secondary to multifocal CAP Support comfort with POLE INSPECTOR, discontinue oxygen supplementation for the purpose of maintaining adequate oxygen saturation; may have low volume supplementation for comfort Admission and Anticipated Discharge Date Admission Date: April 13, 2025 Subjective Mr. 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 In the late afternoon on 04/21 the patient was transferred to the ICU for vasopressor support in the setting of persistent undifferentiated shock; there has been minimal recovery overnight while maintained on two vasopressor agents. Review of Systems Review of Systems: Unobtainable due to reduced consciousness Physical Exam Physical Exam: General: Adult male in mild respiratory distress distress Vital Signs: Reviewed HEENT: Normocephalic, atraumatic; PERRL; tacky mucous membranes Pulmonary: reduced but symmetric chest wall excursion; recruitment of accessory muscles for respiration with agonal breathing pattern; air movement is present throughout all lung acuna but associated with crackles in the anterior and posterior acuna Cardiovascular: Regular rate and rhythm with no murmurs, rubs, or gallops; S1 and S2 normal; bilateral radial and posterior tibial pulses 2+; 1+ bilateral lower extremity edema distal of the mid leg; left upper extremity AV fistula has diminished thrill, still audible bruit, there is a large area of surrounding ecchymosis without a palpable hematoma; right femoral hemodialysis temporary ca theter site is clean of previous bleeding Gastrointestinal: Soft, protuberant Neurologic: unable to count fingers with binocular vision; CN II-XII grossly intact with limited patient participation Skin: Left anterior neck has an area of approximately 5 cm in diameter that is nontender with ecchymosis, known to be site of attempted IJ temporary dialysis catheter placement on 04/19 Results & Data Results & Data Vital Signs (Past 12 Hours) Vital Signs Temp Pulse Resp BP Pulse Ox O2 Del Method O2 Flow Rate 04/22/25 07:52 112 H 04/22/25 06:19 Oxymask 15 04/22/25 06:00 103/70 04/22/25 06:00 35.5 C L 100 H 17 84 L 04/22/25 05:36 35.5 C L 111 H 24 86 L 04/22/25 05:00 118/71 04/22/25 04:57 35.4 C L 101 H 16 86 L 04/22/25 04:33 35.4 C L 111 H 26 H 85 L 04/22/25 04:18 35.4 C L 106 H 24 87 L 04/22/25 04:00 113/74 04/22/25 03:57 35.4 C L 115 H 26 H 87 L 04/22/25 03:41 99/61 L 04/22/25 03:33 35.5 C L 106 H 34 H 87 L 04/22/25 03:30 35.5 C L 100 H 27 H 87 L 04/22/25 03:27 35.5 C L 101 H 36 H 86 L 04/22/25 03:19 58/31 L 04/22/25 03:10 72/25 L 04/22/25 03:00 63/39 L 04/22/25 02:56 50/34 L 04/22/25 02:54 68/32 L 04/22/25 02:36 35.6 C L 104 H 26 H 04/22/25 02:17 81/47 L 04/22/25 02:12 35.7 C L 115 H 18 85 L 04/22/25 02:08 56/34 L 04/22/25 02:00 35.8 C L 103 H 24 51/31 L 89 L 04/22/25 01:51 35.8 C L 116 H 32 H 91 04/22/25 01:42 35.9 C L 115 H 37 H 87 L 04/22/25 01:33 103/30 L 04/22/25 01:30 35.9 C L 112 H 26 H 89 L 04/22/25 01:22 68/27 L 04/22/25 01:21 36.0 C L 107 H 31 H 88 L 04/22/25 01:18 36.0 C L 94 H 26 H 92 04/22/25 01:15 48/20 L 04/22/25 01:15 36.0 C L 109 H 35 H 93 04/22/25 01:12 36.0 C L 114 H 33 H 91 04/22/25 01:03 36.1 C L 111 H 30 H 92 04/22/25 01:01 97/28 L 04/22/25 00:48 115/80 04/22/25 00:45 36.2 C L 120 H 32 H 93 04/22/25 00:42 36.2 C L 100 H 40 H 91 04/22/25 00:31 82/63 L 04/22/25 00:30 36.3 C L 107 H 27 H 92 04/22/25 00:29 55/32 L 04/22/25 00:27 36.3 C L 110 H 44 H 90 04/21/25 22:45 99/33 L 04/21/25 22:39 124 H 18 95 04/21/25 22:33 98/44 L 04/21/25 21:18 37.8 C H 114 H 36 H 93 04/21/25 21:15 37.8 C H 115 H 35 H 90/52 L 96 04/21/25 21:09 120/43 L 04/21/25 21:06 37.9 C H 99 H 28 H 92 04/21/25 21:00 37.9 C H 115 H 21 85/24 L 96 04/21/25 20:45 114/53 L 04/21/25 20:42 37.9 C H 112 H 25 H 95 04/21/25 20:30 119/40 L PG Care Time/CCT Total # of Minutes Spent Total Time Spent with Patient: Total time spent is greater than 50% in coordination of care (as documented) at patient's floor/unit and/or counseling patient: Coding Level of Care Code 46879 SUB INP/OBS CARE 3/50MIN Diagnoses ESRD on hemodialysis N18.6; Z99.2 Anemia in stage 5 chronic kidney disease, not on chronic dialysis N18.5; D63.1 Chronic kidney disease stage: stage 5 (GFR < 15), not on chronic dialysis Multifocal pneumonia J18.8 Kidney transplant status, living unrelated donor Z94.0 Immunosuppression due to drug therapy D84.821 Cerebrovascular accident (CVA) due to bilateral embolism of anterior cerebral arteries I63.423 Laterality of affected vessel: bilateral (2) Anemia in chronic renal disease Chronic kidney disease stage: stage 5 (GFR < 15), not on chronic dialysis Qualified Code(s): N18.5 - Chronic kidney disease, stage 5; D63.1 - Anemia in chronic kidney disease (6) Embolic stroke involving anterior cerebral artery Laterality of affected vessel: bilateral Qualified Code(s): I63.423 - Cerebral infarction due to embolism of bilateral anterior cerebral arteries
[2025-04-22] MEDS ORDERED: GLYCOPYRROLATE 0.2 MG/ML VIAL IV PRN (08:52)
[2025-04-22] MEDS ORDERED: MoRPHine SULFATE 2 MG/ML CARP IV PRN (08:52)
[2025-04-22] MEDS ORDERED: ONDANSETRON INJ 2 MG/ML 2 ML VIAL IV PRN (08:52)
[2025-04-22] MEDS ORDERED: STAT IV Infusion **Titration per Protocol STA ×2 (08:52→09:08)
[2025-04-22] MEDS ORDERED: MoRPHine SULF 100 MG/100 ML BAG IV SCH (09:00)
[2025-04-22] MEDS ORDERED: HYDROmorphone BOLUS from BAG IV PRN (09:08)
[2025-04-22] MEDS: HYDROmorphone 100 MG/100 ML BAG IV SCH (09:34)
[2025-04-22] MEDS: SODIUM CHLORIDE 0.9% 1,000 ML IV SCH (09:35)
[2025-04-22] MEDS: HYDROmorphone Bolus from PCA IV STA (09:36)
--- NOTE | 2025-04-22 09:59 | Nephrology Progress Note ---
Date of Service April 22, 2025 Assessment & Plan (1) Acute kidney injury: (2) ESRD on hemodialysis: (3) Kidney transplant status, living unrelated donor: (4) Status post kidney transplant: (5) Warm autoimmune hemolytic anemia: (6) Multifocal pneumonia: (7) Pulmonary edema: Plan 64 y o m with acute kidney injury with history of renal transplant and repeated episodes of acute kidney injury for last 1 year and lately baseline creatinine staying around 2.5-3.0 mg/dl, admitted with multifocal pneumonia and KRISSY. Kidney function progressively worsened and became oliguric started on dialysis and now 3 hours dialysis 2 days ago. However since then did not have dialysis for the last 2 days because of AV fistula with multiple infiltration. Had temporary femoral catheter on 04/19/25 and had HD for 4 h, 3.8 L UF Clinically declined over last 24 hours and now on comfort care. Admission and Anticipated Discharge Date Admission Date: April 13, 2025 Rocio Naik was seen in the ICU this morning. Over last 24 hours he rapidly declined clinically, became profoundly hypotensive and obtunded. MRI showed multiple possibly embolic stroke. Started on pressor. Eventually family was contacted and this morning decision was made to transition to comfort care. Physical Exam Constitutional: WD/WN, vitals as above + ill appearing, + altered mental status and + edematous Eyes: + anicteric sclerae Respiratory: + respiratory distress Auscultation: + crackles Cardiovascular: Rate/Rhythm: regular rate and regular rhythm Heart Sounds: normal S1 and normal S2 Extremities: + edema (1 to 2 + b/l lower extremity edema. ), + vascular access device (rt femoral catheter with some bleeding at the site) and + AV fistula (left RC AVF with thrill and Bruit) Results & Data Vital Signs (Past 12 Hours) Vital Signs Temp Pulse Resp BP Pulse Ox O2 Del Method O2 Flow Rate 04/22/25 07:52 112 H 04/22/25 06:19 Oxymask 15 04/22/25 06:00 103/70 04/22/25 06:00 35.5 C L 100 H 17 84 L 04/22/25 05:36 35.5 C L 111 H 24 86 L 04/22/25 05:00 118/71 04/22/25 04:57 35.4 C L 101 H 16 86 L 04/22/25 04:33 35.4 C L 111 H 26 H 85 L 04/22/25 04:18 35.4 C L 106 H 24 87 L 04/22/25 04:00 113/74 04/22/25 03:57 35.4 C L 115 H 26 H 87 L 04/22/25 03:41 99/61 L 04/22/25 03:33 35.5 C L 106 H 34 H 87 L 04/22/25 03:30 35.5 C L 100 H 27 H 87 L 04/22/25 03:27 35.5 C L 101 H 36 H 86 L 04/22/25 03:19 58/31 L 04/22/25 03:10 72/25 L 04/22/25 03:00 63/39 L 04/22/25 02:56 50/34 L 04/22/25 02:54 68/32 L 04/22/25 02:36 35.6 C L 104 H 26 H 04/22/25 02:17 81/47 L 04/22/25 02:12 35.7 C L 115 H 18 85 L 04/22/25 02:08 56/34 L 04/22/25 02:00 35.8 C L 103 H 24 51/31 L 89 L 04/22/25 01:51 35.8 C L 116 H 32 H 91 04/22/25 01:42 35.9 C L 115 H 37 H 87 L 04/22/25 01:33 103/30 L 04/22/25 01:30 35.9 C L 112 H 26 H 89 L 04/22/25 01:22 68/27 L 04/22/25 01:21 36.0 C L 107 H 31 H 88 L 04/22/25 01:18 36.0 C L 94 H 26 H 92 04/22/25 01:15 48/20 L 04/22/25 01:15 36.0 C L 109 H 35 H 93 04/22/25 01:12 36.0 C L 114 H 33 H 91 04/22/25 01:03 36.1 C L 111 H 30 H 92 04/22/25 01:01 97/28 L 04/22/25 00:48 115/80 04/22/25 00:45 36.2 C L 120 H 32 H 93 04/22/25 00:42 36.2 C L 100 H 40 H 91 04/22/25 00:31 82/63 L 04/22/25 00:30 36.3 C L 107 H 27 H 92 04/22/25 00:29 55/32 L 04/22/25 00:27 36.3 C L 110 H 44 H 90 04/21/25 22:45 99/33 L 04/21/25 22:39 124 H 18 95 04/21/25 22:33 98/44 L PG Care Time/CCT Total # of Minutes Spent Total Time Spent with Patient: Total time spent is greater than 50% in coordination of care (as documented) at patient's floor/unit and/or counseling patient: Coding Level of Care Code 28679 SUB INP/OBS CARE 10/12MIN Diagnoses Acute kidney injury N17.9 ESRD on hemodialysis N18.6; Z99.2 Kidney transplant status, living unrelated donor Z94.0 Status post kidney transplant Z94.0 Warm autoimmune hemolytic anemia D59.11 Multifocal pneumonia J18.8 Pulmonary edema J81.1
[2025-04-22 10:58] VITALS: BP 113/96; PULSE 109; RESP 41; TEMP 98.1; O2SAT 100
--- NOTE | 2025-04-22 11:21 | Death Pronouncement Note ---
Date of Service April 22, 2025 Pronouncement Note Admission Date Admission Date: April 13, 2025 Date and Time of Date of : 04/22/25 Time of : 10:34 PCOD Preliminary cause of : Shock Contributing Factors (1) Acute kidney injury: (2) ESRD on hemodialysis: (3) Kidney transplant status, living unrelated donor: (4) Status post kidney transplant: (5) Warm autoimmune hemolytic anemia: (6) Multifocal pneumonia: (7) Pulmonary edema: (8) Embolic stroke involving anterior cerebral artery: (9) Encephalopathy: (10) Acute kidney injury superimposed on stage 4 chronic kidney disease: (11) Immunosuppression due to drug therapy: (12) Anemia in chronic renal disease: Hospital Course Hospital Course: In summary was a 64-year-old male initially admitted for multifocal pneumonia with acute respiratory failure complicated by and acute kidney injury. The patient's symptoms associated with their present pneumonia had mostly resolved. Their hospital course was complicated by recurrent melanotic stools without he matochezia which began 04/19 leading to anemia requiring blood transfusion. Renal function continues to be unrecovered. Overnight 04/20 the patient became more lethargic, a subsequent CT head without contrast was obtained which revealed a new area of subacute/acute left occipital lobe edema. After this a MRI revealed bilateral embolic CVA throughout the frontal lobes. Throughout the following 48 hours the patient progressively declined with hypotension, tachycardia, increased respiratory distress not amendable to noninvasive PPV. The patient was transferred to the ICU for vasopressor support, but was unable to recover. A discussion was had with the patient's spouse who corroborated the patient's wishes to not pursue aggressive medical interventions further, and they were transitioned to comfort focused care. Summary Additional details: After transitioning the patient to comfort measures a hydromorphone TYRE RETREADER was initiated. The patient was found to be in sustained PEA at approximately 1030 hours, and then declared at 1034 hours. Additional Data Confirmation of : no pulse, no respirations, no heart sounds and pupils fixed and dilated Family: contacted Attending physician: Chris Clayton DO Coding Level of Care Code 46388 INP/OBS DISCH >30 MIN Diagnoses Acute kidney injury N17.9 ESRD on hemodialysis N18.6; Z99.2 Kidney transplant status, living unrelated donor Z94.0 Status post kidney transplant Z94.0 Warm autoimmune hemolytic anemia D59.11 Multifocal pneumonia J18.8 Pulmonary edema J81.1 Cerebrovascular accident (CVA) due to bilateral embolism of anterior cerebral arteries I63.423 Laterality of affected vessel: bilateral Encephalopathy G93.40 Acute kidney injury superimposed on stage 4 chronic kidney disease N17.9; N18.4 Immunosuppression due to drug therapy D84.821 Anemia in stage 5 chronic kidney disease, not on chronic dialysis N18.5; D63.1 Chronic kidney disease stage: stage 5 (GFR < 15), not on chronic dialysis
--- NOTE | 2025-04-22 15:23 | Discharge Summary ---
Discharge Summary Date of Service April 22, 2025 Principal Dx & Hospital Course #1 = Principal Diagnosis (1) Kidney transplant status, living unrelated donor: (2) Status post kidney transplant: (3) Warm autoimmune hemolytic anemia: (4) Multifocal pneumonia: (5) Pulmonary edema: (6) Embolic stroke involving anterior cerebral artery: (7) Encephalopathy: (8) Acute kidney injury superimposed on stage 4 chronic kidney disease: (9) Immunosuppression due to drug therapy: (10) Anemia in chronic renal disease: Plan In summary this is a 64-year-old male initially admitted for multifocal pneumonia with acute respiratory failure complicated by and acute kidney injury. The patient's symptoms associated with their present pneumonia have mostly resolved. During the day on 04/19 the patient developed recurrent melanotic stools without hematochezia. Renal function continues to be unrecovered. Overnight 04/20 the patient became more lethargic, a subsequent CT head without contrast was obtained which revealed a new area of subacute/acute left occipital lobe edema. Due to the progression of his medical conditions and poor prognosis, the patient's spouse indicated the patient would prefer to transition to comfort focused care. After this transition, the patient passed at 1034 hours. Admission HPI Per Admitting Provider Patient is a 64-year-old male with past medical history of warm autoimmune hemolytic anemia, status post renal transplant and FSGS, HFpEF, COPD, A-fib, acute DVT, hypothyroidism. Patient presented due to several days of dyspnea. Patient also noted recent diarrhea and vomiting, now resolved. Patient was found to have multifocal pneumonia R greater than left on CXR, procalcitonin 0.60. Patient was also found to have a questionable UTI and KRISSY with creatinine worsening from 2.86-6.53. Patient seen at bedside. He stated he has been short of breath on exertion for several days. He denies any recent cough or sick contacts. He stated he has had swelling of his lower extremities that is acutely worsened from his baseline. He stated his weight has been stable however he did lose weight with the diarrhea and vomiting that he had 2 days ago that is now resolved. He stated he has had decreased urine output since the vomiting and diarrhea, denies any dysuria or hematuria. He denies any fevers, chills, chest pain. He is due for his evening medications, he did take an extra Bumex several days ago. Wishes to be DNR/DNI. He also noted that his vision has been foggy and he has an appointment with an visual inspector. Discharge Exam Discharge Plan Discharge Items Patient Disposition: Discharge Diagnosis: Bilateral embolic CVA resulting in encephalopathy // ESRD i/s/o progressive renal failure with prior renal transplant // Acute respiratory failure due to multifocal community acquired pneumonia Addtl Attending Provider Instructions: Other Date/Time: 04/22/25 10:34 Hospital Stay Data Consultations 04/13/25 00:28 ED Decision to Admit Stat 04/13/25 03:53 Consult Nephrology Routine 04/19/25 13:24 Consult Bench Jeweler Stat 04/19/25 16:53 Consult Vascular Surgery Routine 04/19/25 17:25 Consult Gastroenterology Routine 04/21/25 00:21 Consult Neurology Routine Procedures Performed Operation Date: 04/22/25 12:20 <No data on this case meets the specified criteria> Diagnostic Imagining Performed 04/12/25 23:43 CT abd pelvis wo con Stat 04/19/25 13:22 US point of care ultrasound Routine 04/20/25 21:42 CT head/brain wo con Urgent 04/21/25 US carotid doppler BI Routine 04/21/25 00:23 MR angio head wo con Urgent MR brain wo con Urgent 04/21/25 07:48 US leg [US arterial duplex LE RT] Urgent 04/21/25 08:59 US hemodialysis fistula Routine 04/22/25 07:28 EV cvc insrt tunnel wo prt/real estate associate attorney Routine US EV guide vascular access Routine Pending Results Patient Have Any Pending Studies at Discharge: Yes Discharge Instructions Given to Patient (Per Discharging Provider) Total Time Total Time Spent Total Time Spent (In Minutes): 45 Coding Level of Care Code 68858 INP/OBS DISCH >30 MIN Diagnoses Kidney transplant status, living unrelated donor Z94.0 Status post kidney transplant Z94.0 Warm autoimmune hemolytic anemia D59.11 Multifocal pneumonia J18.8 Pulmonary edema J81.1 Cerebrovascular accident (CVA) due to bilateral embolism of anterior cerebral arteries I63.423 Laterality of affected vessel: bilateral Encephalopathy G93.40 Acute kidney injury superimposed on stage 4 chronic kidney disease N17.9; N18.4 Immunosuppression due to drug therapy D84.821 Anemia in stage 5 chronic kidney disease, not on chronic dialysis N18.5; D63.1 Chronic kidney disease stage: stage 5 (GFR < 15), not on chronic dialysis
--- NOTE | 2025-04-22 16:06 | Neurology Consultation ---
Date of Consultation April 21, 2025 History of Present Illness Attending Physician: Chris Clayton DO Allergies Allergy/AdvReac Type Severity Reaction Status Date / Time clopidogrel [From Plavix] Allergy Unknown Unknown Verified 03/14/25 10:20 Djcncll-HDU-ZvU Reductase AdvReac Intermediate myalgias Verified 03/14/25 10:20 Inhibitor [Ilfkscv-Ouw-Quu Reductase Inhibitor] Home Medications Medication Instructions Recorded Confirmed Type mycophenolate mofetil 250 mg 500 mg (2 x 250 mg) PO BID #360 05/29/20 04/13/25 Rx capsule caps amoxicillin 500 mg capsule 2,000 mg PO DIRECTED PRN PRIOR 07/29/20 04/13/25 History TO DENTAL PROCEDURES pantoprazole 40 mg tablet,delayed 40 mg PO BID #180 tabs 12/06/23 04/13/25 Rx release calcium carbonate 500 mg PO QAM 01/21/24 04/13/25 History ferrous sulfate 325 mg (65 mg 325 mg PO BID #60 tabs 02/05/24 04/13/25 Rx iron) tablet acyclovir 400 mg tablet 400 mg PO BID 05/07/24 04/13/25 History ondansetron 4 mg disintegrating 4 mg PO Q8 PRN nausea #20 tabs 05/22/24 04/13/25 Rx tablet magnesium oxide 500 mg PO BID 08/09/24 04/13/25 History albuterol sulfate 90 mcg/actuation 2 inh inhalation Q6H PRN shortness 08/25/24 04/13/25 Rx aerosol inhaler of breath or wheezing #8.5 grams danazol 200 mg capsule 200 mg PO BID 09/13/24 04/13/25 History levothyroxine 125 mcg tablet 125 mcg PO QAM #90 tabs 09/27/24 04/13/25 Rx acetaminophen 325 mg tablet 650 mg PO Q4H PRN Pain 11/14/24 04/13/25 History aspirin 81 mg tablet,delayed 81 mg PO DAILY 11/14/24 04/13/25 History release (Adult Aspirin Regimen) cholecalciferol (vitamin D3) 25 25 mcg PO DAILY 11/14/24 04/13/25 History mcg (1,000 unit) capsule vitamin B complex-vitamin C-folic 1 tab PO BID 11/14/24 04/13/25 History acid 0.8 mg tablet (Renal Vitamin) allopurinol 300 mg tablet 300 mg PO DAILY 12/25/24 04/13/25 History bumetanide 1 mg tablet 1 mg PO BID #70 tabs 01/23/25 04/13/25 Rx folic acid 1 mg tablet 1 mg PO BID #180 tabs 02/03/25 04/13/25 Rx tacrolimus 0.5 mg capsule, 0.5 mg PO Q12H Dx: Z94.0 kidney 02/05/25 04/13/25 Rx immediate-release transplant #60 caps apixaban 5 mg tablet (Eliquis) 5 mg PO BID #180 tabs 02/19/25 04/13/25 Rx prednisone 5 mg tablet 5 mg PO QAM #90 tabs 03/14/25 04/13/25 Rx metoprolol succinate 50 mg 50 mg PO BID #90 tabs 03/17/25 04/13/25 Rx tablet,extended release 24 hr Patient History Medical History Infection of finger Hx of sepsis due to pneumonia, ~07/26/24, hospitalized at [facility] Erosive esophagitis hx, EGD 08/2023 History of Clostridioides difficile infection dx 09/14/24, [facility]; 09/24/24, per pt, "will be finishing abx in next day or so" CKD (chronic kidney disease) f/u [facility] nephrology Bilateral leg edema "has some, has gotten better" Hx of adrenal insufficiency Hx of right bundle branch block f/u [facility] cardiology History of recent hospitalization pt admitted to [facility] multiple times over 2023 (01/21/24, 05/2024-sx, 07/13/24, 07/26/24, 08/22/24, 08/24/24); most recent visit 08/24/24 per records "63-year-old male with past medical history significant for HFpEF, A-fib, ESRD, WAHA, and additional chronic medical conditions who is presenting for sudden onset of chest pain with shortness of breath after exertion following eating out at [employer] followed by increased activity with cutting wood and developed chest pain. CXR with evidence for volume overload and was provided IV Lasix last nitro on admission with improvement/resolution of symptoms. Also with KRISSY that was likely due to hypotension/hypoperfusion and increased diuretic use recently; improving. Also with A-fib RVR, suspect due to increased salt load/increased activity/untreated CHERELLE." Rhinovirus infection Hypomagnesemia Hx of gout Hx of congestive heart failure Sleep apnea, obstructive no device Hypocalcemia hx Weakness Atrial fibrillation with rapid ventricular response controlled w/ metoprolol; f/u [facility] cardiology Hypotension pt unaware? 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 Abdominal aortic aneurysm 4.9 cm on 01/2023 chest CTA; monitoring History of colon polyps Retroperitoneal mass lesion biopsy negative for malignancy 05/2022 per transplant record 03/17/23 Pneumonia hx, ~08/23/24 Adrenal nodule monitored by PCP Arthritis On prednisone therapy Rosales's esophagus with esophagitis Atrial flutter hx 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 Thoracic ascending aortic aneurysm 4.[address] 01/19/24 Hypertension controlled, stable per pt Limb alert care status left arm restriction History of blood transfusion ~07/2024 Hx of herpetic maria History of COVID-19 07/2020- covid pneumonia, hospitalized; resolved History of renal dialysis prior to kidney transplant; has dialysis fistula left arm History of CVA (cerebrovascular accident) 2008, mild memory changes Surgical History History of total right hip arthroplasty Hx of kidney transplant 02/2010- [facility] [place] History of esophagogastroduodenoscopy (EGD) Hx of cholecystectomy Hx of exploratory laparotomy History of colonoscopy Family History Grandmother (Maternal) Alzheimer disease Mother Depression Denies family history of Ovarian cancer Prostate cancer Diabetes Heart disease Myocardial infarction Breast cancer Lung cancer COPD (chronic obstructive pulmonary disease) Colorectal cancer Hypertension Stroke Social History Smoking Status: Never smoker Second Hand Exposure: No; Do You Dip or Chew Tobacco: No; Hx Alcohol Use: No Hx Substance Use: No 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: Mosotho Communication Ability: Effective Visual Impairment: No Limitations Hearing Ability: Normal Sail Finisher Hand Required: No Beliefs That Will Affect Care: Spiritual marital status: Current Living Situation: Spouse current occupational status: employed current occupation: [employer] How many Children do You have: 1 Feels Safe at Home: Yes Childhood Exposure to Second-Hand Smoke: No Dental Care, Regularly: Yes Seatbelt Use: sometimes Sunscreen Use: No Assistive Devices: Cane and Walker Results & Data Vital Signs (Past 12 Hours) Vital Signs Temp Pulse Pulse Resp BP BP Pulse Ox 04/21/25 18:30 38.1 C H 126 H 31 H 82 L 04/21/25 18:27 38.1 C H 115 H 28 H 78 L 04/21/25 17:45 98 H 29 H 87 L 04/21/25 17:35 51/28 L 04/21/25 17:21 93 H 24 83 L 04/21/25 17:16 56/38 L 04/21/25 17:10 74/35 L 04/21/25 17:09 90 32 H 97 04/21/25 17:00 104 H 23 96 04/21/25 17:00 74/35 L 04/21/25 17:00 74/35 L 04/21/25 16:45 66/47 L 04/21/25 16:42 93 H 24 92 04/21/25 16:41 36.9 C 04/21/25 16:36 69/46 L 04/21/25 16:36 69/46 L 04/21/25 16:33 102 H 21 93 04/21/25 16:24 98 H 26 H 96 04/21/25 16:18 67/40 L 04/21/25 16:08 65/34 L 04/21/25 16:06 65/43 L 04/21/25 16:06 92 H 24 94 04/21/25 16:05 65/46 L 04/21/25 16:05 65/46 L 04/21/25 16:00 97 H 16 95 04/21/25 15:16 101 H 04/21/25 15:12 101 H 18 94 04/21/25 15:05 69/43 L 04/21/25 15:05 69/43 L 04/21/25 14:36 101 H 35 H 96 04/21/25 14:34 71/47 L 04/21/25 14:32 71/47 L 04/21/25 14:32 71/47 L 04/21/25 14:32 71/47 L 04/21/25 14:30 66/43 L 04/21/25 14:30 98 H 17 95 04/21/25 14:29 64/47 L 04/21/25 14:25 101 H 15 94 04/21/25 14:15 99 H 20 92 04/21/25 14:12 76/43 L 04/21/25 14:12 76/43 L 04/21/25 14:12 76/43 L 04/21/25 14:10 37.2 C 108 H 98/60 L 04/21/25 14:09 102 H 22 92 04/21/25 14:06 113 H 23 92 04/21/25 13:57 98/60 L 04/21/25 13:57 98/60 L 04/21/25 13:54 110 H 16 94 04/21/25 13:49 79/56 L 04/21/25 13:49 79/56 L 04/21/25 13:46 67/52 L 04/21/25 13:39 101 H 22 96 04/21/25 13:33 73/53 L 04/21/25 13:33 73/53 L 04/21/25 13:30 80/55 L 04/21/25 13:30 96 H 80/53 L 04/21/25 13:25 79/50 L 04/21/25 13:18 106 H 16 97 04/21/25 13:18 75/46 L 04/21/25 13:18 75/46 L 04/21/25 13:18 75/46 L 04/21/25 13:16 63/51 L 04/21/25 13:15 98 H 31 H 94 04/21/25 13:15 108 H 75/46 L 04/21/25 13:06 101 H 23 95 04/21/25 13:00 105 H 75/51 L 04/21/25 12:45 108 H 69/50 L 04/21/25 12:31 93/45 L 04/21/25 12:31 93/45 L 04/21/25 12:30 96 H 93/45 L 04/21/25 12:27 100 H 22 93 04/21/25 12:17 72/55 L 04/21/25 12:15 110 H 21 93 04/21/25 12:15 104 H 72/55 L 04/21/25 12:03 104 H 20 94 04/21/25 12:01 82/47 L 04/21/25 12:01 82/47 L 04/21/25 12:00 96 H 29 H 91 04/21/25 12:00 109 H 82/47 L 04/21/25 11:51 85/55 L 04/21/25 11:51 85/55 L 04/21/25 11:48 103 H 85/55 L 04/21/25 11:46 130/110 H 04/21/25 11:31 56/40 L 04/21/25 11:30 106 H 81/53 L 04/21/25 11:24 104 H 27 H 81 L 04/21/25 11:00 99 H 34 H 100 04/21/25 11:00 86/59 L 04/21/25 11:00 86/59 L 04/21/25 11:00 86/59 L 04/21/25 11:00 105 H 86/59 L 04/21/25 10:50 37.3 C 104 H 04/21/25 10:49 79/60 L 04/21/25 10:42 102 H 24 86 L 04/21/25 10:39 99 H 21 93 04/21/25 10:35 91/55 L 04/21/25 10:35 91/55 L 04/21/25 09:42 104 H 20 80 L 04/21/25 08:59 87/50 L 04/21/25 08:40 37.3 C 103 H 20 97 04/21/25 08:00 36.6 C 94 H 20 86/50 L 95 04/21/25 07:50 37.3 C 106 H 20 87/50 L 97 04/21/25 07:30 04/21/25 07:00 95 H O2 Del Method O2 Flow Rate FiO2 04/21/25 18:30 04/21/25 18:27 04/21/25 17:45 04/21/25 17:35 04/21/25 17:21 04/21/25 17:16 04/21/25 17:10 04/21/25 17:09 04/21/25 17:00 04/21/25 17:00 04/21/25 17:00 04/21/25 16:45 04/21/25 16:42 04/21/25 16:41 04/21/25 16:36 04/21/25 16:36 04/21/25 16:33 04/21/25 16:24 04/21/25 16:18 04/21/25 16:08 04/21/25 16:06 04/21/25 16:06 04/21/25 16:05 04/21/25 16:05 04/21/25 16:00 04/21/25 15:16 04/21/25 15:12 04/21/25 15:05 04/21/25 15:05 04/21/25 14:36 04/21/25 14:34 04/21/25 14:32 04/21/25 14:32 04/21/25 14:32 04/21/25 14:30 04/21/25 14:30 04/21/25 14:29 04/21/25 14:25 30 04/21/25 14:15 04/21/25 14:12 04/21/25 14:12 04/21/25 14:12 04/21/25 14:10 04/21/25 14:09 04/21/25 14:06 04/21/25 13:57 04/21/25 13:57 04/21/25 13:54 04/21/25 13:49 04/21/25 13:49 04/21/25 13:46 04/21/25 13:39 04/21/25 13:33 04/21/25 13:33 04/21/25 13:30 04/21/25 13:30 04/21/25 13:25 04/21/25 13:18 04/21/25 13:18 04/21/25 13:18 04/21/25 13:18 04/21/25 13:16 04/21/25 13:15 04/21/25 13:15 04/21/25 13:06 04/21/25 13:00 04/21/25 12:45 04/21/25 12:31 04/21/25 12:31 04/21/25 12:30 04/21/25 12:27 04/21/25 12:17 04/21/25 12:15 04/21/25 12:15 04/21/25 12:03 30 04/21/25 12:01 04/21/25 12:01 04/21/25 12:00 04/21/25 12:00 04/21/25 11:51 04/21/25 11:51 04/21/25 11:48 04/21/25 11:46 04/21/25 11:31 04/21/25 11:30 04/21/25 11:24 04/21/25 11:00 04/21/25 11:00 04/21/25 11:00 04/21/25 11:00 04/21/25 11:00 04/21/25 10:50 04/21/25 10:49 04/21/25 10:42 04/21/25 10:39 04/21/25 10:35 04/21/25 10:35 04/21/25 09:42 04/21/25 08:59 04/21/25 08:40 1 04/21/25 08:00 Nasal Cannula 2 04/21/25 07:50 1 04/21/25 07:30 Nasal Cannula 2 04/21/25 07:00 PG Care Time/CCT Total # of Minutes Spent Total Time Spent with Patient: Total time spent is greater than 50% in coordination of care (as documented) at patient's floor/unit and/or counseling patient: Coding Level of Care Code None
== END 2025-04-22 11:17 | disposition expired | DRG 177 ==
LOC: ED 19:19 → SUATTDRO 04-13 01:29 → EDINP 04-13 01:29 → 2E 04-13 03:53 → 1E 04-21 17:54